=== PATIENT | male | born 1970 | race Caucasian/White ===

== ENCOUNTER 2018-05-03 02:49 | Emergency (ER) | payer SELFPAY ==
--- NOTE | 2018-05-03 02:49 | DT_ITS ---
This patient was seen during an EMR downtime April 30, 2018 - May 07, 2018. This patient may have a combination of paper and electronic documentation or all paper documentation. All documentation is viewable within the e-chart portion of [facility] for each patient visit.
--- NOTE | 2018-05-03 13:43 | EKG12_ITS ---
Test Reason : Blood Pressure : / mmHG Vent. Rate : 071 BPM Atrial Rate : 071 BPM P-R Int : 142 ms QRS Dur : 102 ms QT Int : 410 ms P-R-T Axes : 043 043 018 degrees QTc Int : 445 ms Normal sinus rhythm with sinus arrhythmia Normal ECG Confirmed by LAMONTE EMERSON MD ([id number]), editor school photograph GRACIE KRUGER ([id number]) on 05/09/2018 6:25:19 PM Referred By: KALE Confirmed By:LAMONTE EMERSON MD
[2018-05-05 14:25] LABS: Absolute Lymphocyte Count 3.64 X10^3/ul (0.83-4.51); Absolute Neutrophil Count 8.4 X10^3/uL (2.0-7.7); Basophil# 0.03 X10^3/uL; Basophil% 0.2 % (0-1); Eosinophil# 0.22 X10^3/uL; Eosinophils% 1.7 % (0-5); Hematocrit 43.4 % (40-54); Hemoglobin 15.3 g/dl (13.0-16.5); Lymphocyte # 3.64 X10^3/ul (4.0); Lymphocyte % 27.5 % (19-41); Mean Corp Hgb Conc 35.3 g/gl (32-36); Mean Corpuscular Hgb 30.1 pg (27.0-32.0); Mean Corpuscular Volume 85.4 fL (80-94); Mean Platelet Vol. 9.3 fl (6.2-12.0); Monocyte% 6.8 % (0-10); Neutrophil # 8.44 X10^3/uL (2.7-7.7); Neutrophil % 63.6 % (47-70); POSITIVE COUNT NO; POSITIVE DIFFERENTIAL NO; POSITIVE MORPHOLOGY NO; Platelet Count 261 K/mm3 (150-450); RBC Distribution Width CV 13.4 % (11.6-14.6); Red Blood Count 5.08 M/mm3 (4.6-6.2); White Blood Count 13.3 K/mm3 (4.4-11.0)
[2018-05-07 08:24] LABS: Anion Gap 9 (5-15); BUN 11 mg/dL (7-18); BUN/Creat Ratio 11.6 RATIO (10-20); Chloride 106 mmol/L (98-107); Creatinine, Serum 0.95 mg/dL (0.70-1.30); EST Glomerular Filtration Rate 90 mL/min (>60); Est Glom Filt Rate - Afr Amer 109 mL/min (>60); Glucose 120 mg/dL (74-106); Potassium 3.4 mmol/L (3.5-5.1); Sodium Level 142 mmol/L (136-145)
== END 2018-05-03 05:45 | disposition home or self-care (01) ==
LOC: ED 15:41
PROVIDERS: Emergency Provider Emergency Medicine
DX: G43.909 Migraine, unspecified, not intractable, without status migrainosus (principal); F17.200 Nicotine dependence, unspecified, uncomplicated
CPT/HCPCS: 36415; 80048; 84484; 85025; 93005; 96361; 96374; 96375; 99284; J7030; A4216

== ENCOUNTER 2022-09-20 12:44 | Emergency (ER) | payer MEDICARE, SELFPAY ==
[2022-09-20 12:45] VITALS: BP 160/80; PULSE 98; RESP 18; TEMP 36.5; O2SAT 96; BMI 44.4
--- NOTE | 2022-09-20 14:01 | EX.ED.UPPERE ---
HPI History of Present Illness Chief Complaint: Upper Extremity Injury Narrative Narrative: 52-year-old male here with left arm pain. Patient states her arm pain prior to arrival or since resolved denies any chest pain, shortness of breath. 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 Denies any history of heart issues. He is not on any medicines currently. He says he is new to the area. The patient denies recent surgery in the last 4 weeks or immobilization in the last 3 days, denies previous diagnosis of DVT or PE, hemoptysis, unilateral leg swelling or malignancy with treatment the last 6 months. No estrogen use noted. Denies any bleeding diathesis. Denies any vomiting or diarrhea. Old chart reviewed: No recent advanced imaging of the involved extremity, no recent Stress echocardiogram note in the chart PFSH PFSH Allergy/AdvReac Type Severity Reaction Status Date / Time No Known Allergies Allergy Verified 09/20/22 12:47 Social History Smoking Status: Current every day smoker tobacco type: cigarettes ROS ROS ED ROS Narrative Constitutional: Denies fever HEENT: Denies sore throat Neck: Denies neck pain Cardiovascular: Denies chest pain, syncope Respiratory: Denies shortness of breath GI: Denies nausea vomiting or abdominal pain : Denies changes in urinary habits Musculoskeletal: Endorses left arm pain (resolved) Neurologic: Denies numbness weakness or loss of sensation Skin denies rash EXAM Physical Exam Narrative Exam Narrative: Nursing triage notes reviewed, Vital signs reviewed Constitutional: please see mdm HENT: MMM Eyes: Pupils equal round and reactive to light, Extraocular muscles intact Neck: No stridor, no JVD, full neck ROM Lungs: Clear to auscultation, No wheezing or rales. No increased work of breathing, no conversational dyspnea, no accessory muscle use, no nasal flaring. No respiratory distress noted Heart: Regular rate and rhythm, No murmurs, No rubs and No gallops, 2+ distal pulses (radial, femoral, posterior tibial) in all extremities Abdomen: Soft, there is no tenderness, rigidity, rebound or guarding, no obvious peritoneal signs, no palpable pulsatile abdominal masses, no auscultated abdominal bruit : No CVAT Extremities: No edema Neuro: No focal neurological deficits, cranial nerves II through XII intact, 5/5 strength in all extremities. Intact sensation to light touch in all extremities, 2+ reflexes bilateral patella dens. Normal gait. No ataxia. Skin: No rash or lesions noted Const Vital Signs: 09/20/22 12:45 Temperature 97.7 F L Temperature Source Temporal Pulse Rate 98 Respiratory Rate 18 Blood Pressure 160/80 H Blood Pressure Mean 106 Pulse Ox 96 Oxygen Delivery Method Room Air MDM MDM MDM Narrative Medical decision making narrative: 52-year-old male here with left arm pain. Pain resolved. Left upper extremity exam was unremarkable. Left upper extreme exam is neurovascular intact. There is no focal cardiopulmonary abnormalities. Patient stated he just want to make sure is not having a heart attack. I obtained a screening EKG which showed no evidence of STEMI no ischemic changes. I did offer the patient additional blood work including troponin chest x-ray CBC BMP. Patient refused stating he would like to go home as he is asymptomatic and is reassured by his unremarkable EKG. Had a shared decision-making discussion with the patient in regards to risk and benefit of discharge, and additional testing. The patient had capacity was alert and orient x3 and was able to make his own medical decisions. He chose to be discharged home with close PCP follow-up for outpatient evaluation. Shared decision making: I had a long discussion with the patient and or visitors regarding risk/benefits of further testing or admission. They decided to forego any further testing or admission. They are aware of of the risk/benefits inherent in this decision and have voiced understanding. EKG Initial EKG: Attestation: I personally reviewed and interpreted this EKG as follows: Comments: EKG with normal sinus rhythm, normal intervals, no STEMI no WPW no ARVD Discharge Plan Triage Chief Complaint: Upper Extremity Injury ED Provider: Raymond Washington Dx/Rx/DC Orders Clinical Impression: Arm pain, left Instructions: ED Chest Pain, Uncertain Cause Primary Care Provider: Care Physician,No Primary Referrals: Oscar Dias MD [STAFF PHYSICIAN] - Care Physician,No Primary [Primary Care Provider] - Activity Restrictions/Additional Instructions: Please return if you lose consciousness, if you develop chest pain, if you have shortness of breath we have difficulty with exertion. Please follow-up with the family practice physician Dr. Dias. Please get an outpatient stress test for further evaluation of possible heart issues. Disposition Disposition: Home, Self Care Discharge Date/Time: 09/20/22 14:41
--- NOTE | 2022-09-20 14:15 | EKG12_ITS ---
Test Reason : ARMP PAIN Blood Pressure : / mmHG Vent. Rate : 082 BPM Atrial Rate : 082 BPM P-R Int : 186 ms QRS Dur : 110 ms QT Int : 388 ms P-R-T Axes : 060 013 023 degrees QTc Int : 453 ms Normal sinus rhythm Low voltage QRS (Limb Leads) Confirmed by TASHIA GALLOWAY, KO ([id number]), slot editor JORDIN RAMIREZ ([id number]) on 09/22/2022 10:40:47 AM Referred By: Confirmed By:KO LAO MD
--- NOTE | 2022-09-20 14:17 | ED.RN ---
Pt. no longer complaining of left elbow pain. Pt. states he had slight pain for a brief period and came into ER to make sure he was not having a heart attack. Pt. states he has no chest pain for pain anywhere. Dr. Washington notified.
== END 2022-09-20 14:41 | disposition home or self-care (01) ==
LOC: ED 14:40
PROVIDERS: Emergency Provider Emergency Medicine; Visit Provider Emergency Medicine
DX: M79.602 Pain in left arm (principal); F17.210 Nicotine dependence, cigarettes, uncomplicated
CPT/HCPCS: 93005; 99282

== ENCOUNTER 2024-02-04 17:37 | Emergency (ER) | payer MEDICARE, SELFPAY ==
[2024-02-04 17:39] VITALS: BP 149/90; PULSE 100; RESP 22; TEMP 35.7; O2SAT 100; BMI 44.4
--- NOTE | 2024-02-04 18:15 | EDS_ITS ---
HPI <LANA Shin - Last Filed: 02/04/24 20:41> History of Present Illness Chief Complaint: Poisoning Narrative Narrative: Patient presenting today due to concerns that he was poisoned by his son. He reports that over the last several days he thinks his son has been breaking into his house, destroying his cars, urinating on his floor, and poisoning his food. He reports that his son did kill his dog. He has a restraining order out against his son as his son is mentally ill. He thought he saw him last night climbing over his fence and called the police. He reports that he did take a drink out of a cup that was in his house and ever since has not been feeling right. 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 When asked if he has had any hallucinations he reports, Oh yes, I thought my dog was God. Patient also reports that at times he will feel really perky and at other times he will feel really down. He denies any history of mental illness. He denies SI or HI. He reports a previous history of drug abuse with pills, heroin, and speed. He denies any recent drug use. PFSH <LANA Shin - Last Filed: 02/04/24 20:41> [facility] Medical History unable to obtain Home Medications NK 02/04/24 [History Last Taken Unknown] Allergy/AdvReac Type Severity Reaction Status Date / Time No Known Allergies Allergy Verified 02/04/24 17:39 Family History no significant family his Surgical History unable to obtain Social History Smoking Status: Current every day smoker tobacco type: cigarettes ROS <LANA Shin - Last Filed: 02/04/24 20:41> ROS ED Constitutional Constitutional ED: Denies chills or fever(s) Cardiovascular Cardiovascular: Denies chest pain Respiratory/Chest Respiratory/Chest: Denies cough or dyspnea Gastrointestinal Gastrointestinal: Denies abdominal pain, nausea or vomiting Musculoskeletal Musculoskeletal: Denies arthralgias or myalgias Integumentary Denies rash Neurologic Neurologic: Denies weakness Psychiatric Psychiatric: Reports hallucinations and paranoia; Denies depression, homicidal ideation, suicidal ideation or suicidal thoughts Allergic/Immunologic Allergic/Immunologic ED: Denies lip swelling, mouth swelling or urticaria EXAM <LANA Shin - Last Filed: 02/04/24 20:41> Physical Exam Const Vital Signs: 02/04/24 17:39 Temperature 96.3 F L Temperature Source Temporal Pulse Rate 100 Respiratory Rate 22 H Blood Pressure 149/90 H Blood Pressure Mean 109 Pulse Ox 100 Oxygen Delivery Method Room Air Positive well nourished, well developed and no apparent distress General Appearance ED: well developed HEENT Reports normocephalic and head/scalp atraumatic Mouth ED: Yes moist mucous membranes normal Eyes PERRL and EOMs intact bilaterally Neck full ROM and supple Chest Wall inspection of chest normal Resp normal respiratory effort and clear to auscultation bilaterally Cardio regular rate and regular rhythm GI soft to palpation, non-tender, non-distended and no masses Back/Spine normal ROM and normal to inspection Extremity normal to inspection and full ROM Neuro oriented x3, CN's II-XII intact bilaterally, moves all extremities, no focal motor deficits and no sensory deficits noted Sensorium / Orientation: awake and alert Psych Appearance: grossly normal Attitude: paranoid Speech: normal speech Thought Content: phobia(s), delusion(s) and hallucination(s) Skin no rashes or lesions noted and no wounds <Dr. Henrik Garza DO - Last Filed: 02/04/24 23:27> Physical Exam Const Vital Signs: 02/04/24 17:39 Temperature 96.3 F L Temperature Source Temporal Pulse Rate 100 Respiratory Rate 22 H Blood Pressure 149/90 H Blood Pressure Mean 109 Pulse Ox 100 Oxygen Delivery Method Room Air MDM <LANA Shin - Last Filed: 02/04/24 20:41> [facility] Narrative Medical decision making narrative: Patient presenting due to paranoia, he thinks that his son is trying to harm him. He thinks that his son has poisoned him. He is nontoxic-appearing, vitals are unremarkable. He does have a previous history of drug abuse, denies any recent drug use. Labs were obtained here. He has a nonspecific leukocytosis, BMP unremarkable, toxicology screening is positive for amphetamines and MDMA. I do not feel that patient poses a threat to himself or others. He is not suicidal or homicidal. Drug cessation is encouraged. He will be discharged home in stable condition and is comfortable with plan. Lab Data Labs: Laboratory Results - last 24 hr 02/04/24 02/04/24 18:13 18:20 WBC 15.0 H RBC 5.37 Hgb 16.0 Hct 46.5 MCV 86.6 MCH 29.8 MCHC 34.4 RDW Std Deviation 40.7 RDW Coeff of Senia 13.0 Plt Count 298 MPV 10.6 Immature Gran % (Auto) 0.500 Neut % (Auto) 73.1 H Lymph % (Auto) 15.5 L [place] % (Auto) 10.0 Eos % (Auto) 0.1 Baso % (Auto) 0.8 Absolute Neuts (auto) 11.0 H Absolute Lymphs (auto) 2.33 Nucleated RBC % 0 Sodium 138 Potassium 3.8 Chloride 102 Carbon Dioxide 25.0 Anion Gap 11 BUN 10 Creatinine 0.95 Estim Creat Clear Calc 122.02 Est GFR (MDRD) Af Amer 106 Est GFR (MDRD) Non-Af 87 BUN/Creatinine Ratio 10.5 Glucose 99 Calcium 9.0 Urine Opiates Screen NEGATIVE Urine Methadone Screen NEGATIVE Ur Barbiturates Screen NEGATIVE Ur Phencyclidine Scrn NEGATIVE Ur Amphetamines Screen POSITIVE H MDMA (Ecstasy) Screen POSITIVE H U Benzodiazepines Scrn NEGATIVE Urine Cocaine Screen NEGATIVE U Cannabinoids Screen NEGATIVE Ur Drug Screen Comment Ethyl Alcohol < 3.0 <Dr. Henrik Garza, DO - Last Filed: 02/04/24 23:27> MDM History & Record Review Discussion w/independent historian: Patient Lab Data Attestation: I reviewed the patient's lab results. Labs: Laboratory Results - last 24 hr 02/04/24 02/04/24 18:13 18:20 WBC 15.0 H RBC 5.37 Hgb 16.0 Hct 46.5 MCV 86.6 MCH 29.8 MCHC 34.4 RDW Std Deviation 40.7 RDW Coeff of Senia 13.0 Plt Count 298 MPV 10.6 Immature Gran % (Auto) 0.500 Neut % (Auto) 73.1 H Lymph % (Auto) 15.5 L [place] % (Auto) 10.0 Eos % (Auto) 0.1 Baso % (Auto) 0.8 Absolute Neuts (auto) 11.0 H Absolute Lymphs (auto) 2.33 Nucleated RBC % 0 Sodium 138 Potassium 3.8 Chloride 102 Carbon Dioxide 25.0 Anion Gap 11 BUN 10 Creatinine 0.95 Estim Creat Clear Calc 122.02 Est GFR (MDRD) Af Amer 106 Est GFR (MDRD) Non-Af 87 BUN/Creatinine Ratio 10.5 Glucose 99 Calcium 9.0 Urine Opiates Screen NEGATIVE Urine Methadone Screen NEGATIVE Ur Barbiturates Screen NEGATIVE Ur Phencyclidine Scrn NEGATIVE Ur Amphetamines Screen POSITIVE H MDMA (Ecstasy) Screen POSITIVE H U Benzodiazepines Scrn NEGATIVE Urine Cocaine Screen NEGATIVE U Cannabinoids Screen NEGATIVE Ur Drug Screen Comment Ethyl Alcohol < 3.0 Treatment and Re-Evaluation :: I have personally performed a face to face assessment of the patient and have reviewed the THEODORE Note. I performed a substantive portion of the visit including all aspects of the following. My vidal findings include: History is 53-year-old male concerned that he is being poisoned by family. He states he had an episode where he was hallucinating and has dry lips. He denies any suicidal or homicidal ideation. He states he has been otherwise eating okay and caring for himself. He denies any fgaf-riv-onrfiij medications or any prescription medications. Exam is ANO x 3. Denies suicidal or homicidal ideation. States currently he is feeling pretty good other than some dry lips. Patient appears well-kept. He appears hydrated and fed. Medical Decison Making reconfirmed the patient has not been taking any prescription or pejf-cth-czlicyg medications. Patient test positive for amphetamines and for MDMA. He has a slight leukocytosis of 15. At this point he has normal vital signs. He is ANO x 3. Does not appear to be a danger to himself or to others. I do not know if this represents delusions or fact. I do not see any emerging emergent condition. Difficult to say based on a urine drug screen exactly what substance is triggering that positive result. I think the patient can be discharged home. I encouraged him to follow-up with primary care. Discharge Plan Triage Chief Complaint: Poisoning ED Midlevel Provider: Suzette Jay ED Provider: Henrik Garza Dx/Rx/DC Orders Clinical Impression: Drug abuse, Paranoia Prescriptions: No Action NK Primary Care Provider: Care Physician,No Primary Referrals: Care Physician,No Primary [Primary Care Provider] - Disposition Disposition: Home, Self Care Discharge Date/Time: 02/04/24 20:02
--- OUTSIDE RECORDS SUMMARY | 2024-02-04 18:23 | XMS RPT_ITS | CCD ---
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 OSIRIS BARRETT Attending Un available [facility], Pt States None Referring Unavailable Problems Problem Classification Problem Date Documented Da te Episodic/Chronic Fluid and electrolyte disorders (1 source) Hypokalemia; Translations: [Hypokalemia] Onset: 11-15-2022 Episodic Genitourinary symptoms and ill-defined conditions (2 sources) Unspecified abnormal findings in urine; Translations: [Unspecified abnormal findings in urine] Onset: 11-15-2022 Episodic Influenza (2 sources) Influenza due to other identified influenza virus with other respiratory manifestations; Translations: [Influenza due to other identified influenza virus with other manifestations] Onset: 11-15-2022 Episodic Other lower respiratory disease (1 source) Dyspnea, unspecified; Translations: [Dyspnea, unspecified] Onset: 11-15-2022 Episodic Other nervous system disorders (1 source) Unspecified disturbances of smell and taste; Translations: [Unspecified disturbances of smell and taste] Onset: 11-15-2022 Episodic Other nutritional; endocrine; and metabolic disorders (1 source) Anorexia; Translations: [Anorexia] Onset: 11-15-2022 Episodic Substance-related disorders (1 source) Nicotine dependence, unspecified, uncomplicated; Translations: [Nicotine dependence, unspecified, uncomplicated] Onset: 11-15-2022 Chronic Unclassified (1 source) Contact with and (suspected) exposure to COVID-19; Translations: [Contact with and (suspected) exposure to COVID-19] Onset: 11-15-2022 Unclassified (1 source) Cough, unspecified; Translations: [Cough, unspecified] Onset: 11-15-2022 Results Test Name Value Interpretation Reference Range Facil ity Encounters Encounter Date Encounter Type Care Provider Facility Start: 11-15-2022 End: 11-15-2022 Emergency department patient visit Dr. OSIRIS BARRETT Facility:[id number] Start: 03-09-2022 ambulatory Tony Altman Facility:[id number] Payers Date Payer Category Payer Unknown [id number] 1970 Unknown [id number] Medicare [id number] Unknown [id number] Clinical Note 11-16-2022 Note Date & Type Note Facility 11-16-2022 Note Clinical Note - Mihir lopez v2: Education: Additional NotesED Post Discharge Result Follow Up: Attempt #1 Complete/Pending# : Completed Type#: Nasal Bug# Flu A Patient tested positive for flu during recent ED visit. ED doctor educated the patient on the positive result and proper discharge instructions (at-home care, isolation, etc). No further follow up from EDPD team is needed. If there are any other questions for the ED Post-Discharge Culture Follow Up Team, please contact [phone]. . Aspen Chapa PharmD PGY1 Resident [facility] Electronic Signatures: Aspen Chapa (PHARM STUD) (Signed 16-Nov-2022 15:13) Authored: Education Deborah Ramirez (PharmD) (Signed 17-Nov-2022 08:30) Co-Signer: Education Last Updated: 17-Nov-2022 08:30 by Deborah Ramirez (PharmD) [facility] Summary Purpose Family History No Family History Records Found Advance Directives No Advanced Directives Records Found Additional Source Comments (unrecognized sect ion and content) No Status Records Found INFORMATION SOURCE (unrecogn ized section and content) FOR RECORDS PERTAINING TO PATIENTS WHO ARE OR HAVE BEEN ENROLLED IN A CHEMICAL DEPENDENCY/SUBSTANCEABUSE PROGRAM, SOME INFORMATION MAY BE OMITTED. This clinical summary was aggregated from multiple sources. Caution should be exercised in using it in the provision of clinical care. This summary normalizes information from multiple sources, and as a consequence, information in this document may materially change the coding, format and clinical context of patient data. In addition, data may be omitted in some cases. CLINICAL DECISIONS SHOULD BE BASED ON THE PRIMARY CLINICAL RECORDS. [facility], [facility]. provides no warranty or guarantee of the accuracy or completeness of information in this document.
[2024-02-04 18:32] LABS: Absolute Lymphocyte Count 2.33 X10^3/uL (0.83-4.51); Basophil# 0.12 X10^3/uL; Basophil% 0.8 % (0-1); Eosinophil# 0.02 X10^3/uL; Eosinophils% 0.1 % (0-5); Hematocrit 46.5 % (40-54); Lymphocyte # 2.33 X10^3/ul (0.83-4.51); Lymphocyte % 15.5 % (19-41); Mean Corp Hgb Conc 34.4 g/dL (32-36); Mean Corpuscular Hgb 29.8 pg (27.0-32.0); Mean Corpuscular Volume 86.6 fL (80-94); Mean Platelet Vol. 10.6 fl (6.2-12.0); NRBC Flagged by Analyzer 0 % (0-5); Neutrophil % 73.1 % (47-70); Platelet Count 298 K/mm3 (150-450); RBC Distribution Width SD 40.7 fl (35.1-43.9); Red Blood Count 5.37 M/mm3 (4.6-6.2)
[2024-02-04 18:45] LABS: Alcohol, Blood (Medical)-Serum < 3.0 mg/dL
[2024-02-04 18:47] LABS: Anion Gap 11 (5-15); BUN 10 mg/dL (7-18); BUN/Creat Ratio 10.5 RATIO (10-20); Chloride 102 mmol/L (98-107); Creatinine, Serum 0.95 mg/dL (0.70-1.30); EST Glomerular Filtration Rate 87 mL/min (>60); Est Glom Filt Rate - Afr Amer 106 mL/min (>60); Estimated Creatinine Clearance 122.02 ml/min; Glucose 99 mg/dL (74-106); Potassium 3.8 mmol/L (3.5-5.1); Sodium Level 138 mmol/L (136-145)
[2024-02-04 18:49] LABS: Amphetamine Urine VISTA POSITIVE (<1000 ng/mL); Barbiturate Urine VISTA NEGATIVE (< 200 ng/mL); Benzodiazepine Urine VISTA NEGATIVE (< 200 ng/mL); Cocaine Urine VISTA NEGATIVE (< 300 ng/mL); Ecstacy Urine VISTA POSITIVE (< 500 ng/mL); Methadone Urine VISTA NEGATIVE (< 300 ng/mL); PCP Urine VISTA NEGATIVE (< 25 ng/mL); THC Urine VISTA NEGATIVE (< 50 ng/mL); Vista UDS pH Range 6
== END 2024-02-04 20:02 | disposition home or self-care (01) ==
PROVIDERS: Physician Assistant; Emergency Provider Emergency Medicine; Visit Provider Emergency Medicine
DX: F19.10 Other psychoactive substance abuse, uncomplicated (principal); F22 Delusional disorders; F17.210 Nicotine dependence, cigarettes, uncomplicated
CPT/HCPCS: 36415; 80048; 80307; 80320; 85025; 99282; G0480

== ENCOUNTER 2025-05-03 15:36 | Inpatient (IN) | payer MEDICARE, SELFPAY ==
[2025-05-03 15:37] VITALS: BP 186/101; PULSE 83; RESP 18; TEMP 36.3; O2SAT 100; BMI 48.4
--- NOTE | 2025-05-03 15:49 | EKG12_ITS ---
Test Reason : Blood Pressure : */* mmHG Vent. Rate : 70 BPM Atrial Rate : 70 BPM P-R Int : 200 ms QRS Dur : 132 ms QT Int : 428 ms P-R-T Axes : 69 -40 28 degrees QTcB Int : 462 ms Normal sinus rhythm with sinus arrhythmia Left axis deviation Right bundle branch block ABNORMAL ECG Confirmed by Patrick Tian ([id number]), clinical editor TITO FRIAS ([id number]) on 05/05/2025 9:20:06 AM Referred By: Confirmed By: Patrick Tian
--- NOTE | 2025-05-03 15:51 | EX.ED.DYSGE1 ---
HPI History of Present Illness Chief Complaint: Hypertension Narrative Narrative: Patient is a 54-year-old male who presents to the emergency department chief complaint of elevated blood pressure. Patient states that just 3 days ago he saw a primary care physician for the first time and was started on blood pressure medication. He states that he had a headache earlier and noted that he checked his blood pressure this was elevated he states that he called his primary care physician and they advised him to take a extra dose of the blood pressure medication that he was started on losartan and check his blood pressure again in 2 hours. He states that he did this in his blood pressure was a systolic of the 200s he called them back and they advised him to come to the emergency department to be evaluated. Patient states that he no longer has a headache. [facility] Medical History (Updated 05/03/25 @ 18:[address] Allan Jc DO) HTN (hypertension) Morbid obesity Home Medications ?Medication ?Instructions ?Recorded ?Last Taken ?Type losartan 25 mg tablet 25 mg PO DAILY 05/03/25 Unknown History Allergy/AdvReac Type Severity Reaction Status Date / Time No Known Allergies Allergy Verified 05/03/25 15:37 Social History Smoking Status: Current every day smoker tobacco type: cigarettes ROS ROS ED ROS Narrative Constitutional: Complains of lightheadedness and headache as noted above but the headache has resolved with denies any fevers, chills, dizziness, Eyes: Denies change in vision double vision blurry vision he states that earlier when he had a headache he had spots that would flash in his peripheral vision this is resolved Cardiovascular: Denies chest pain or palpitations Respiratory: Denies cough wheezing shortness of breath Abdomen: Denies abdominal pain nausea vomiting diarrhea : Denies any urinary symptoms Neurological: Denies numbness, weakness, tingling Musculoskeletal: Denies back pain Skin: Denies rashes or lesions EXAM Physical Exam Narrative Exam Narrative: General: Patient lying in bed rest comfortably did not appear to be acute distress Head: Atraumatic, normocephalic Eyes: PERRL bilaterally, EOMI bilateral, no conjunctival injection noted Neck: Soft, supple, trachea midline Cardiovascular: Regular in rhythm Respiratory: Clear to auscultation bilaterally Abdomen: Soft, nondistended, no tenderness to palpation Extremities: +5/5 strength noted in the bilateral upper and lower extremities, radial pulses +2/4 in the bilateral extremities Neurological: Patient following commands knew that he was at [facility] year is 2024 patient NIH of 0 GCS 15 Skin: Warm, dry, intact no rashes or lesions noted Const Vital Signs: 05/03/25 15:36 05/03/25 15:37 05/03/25 15:49 Temperature 97.4 F L Temperature Source Temporal Pulse Rate 83 Respiratory Rate 18 Respiratory Effort Normal Non-Labored Respiratory Pattern Normal Blood Pressure 186/101 H Blood Pressure Mean 129 Pulse Ox 100 Oxygen Delivery Method Room Air Room Air 05/03/25 17:36 05/03/25 18:11 Temperature 98.1 F Temperature Source Pulse Rate 73 73 Respiratory Rate 16 16 Respiratory Effort Respiratory Pattern Blood Pressure 159/89 H 159/89 H Blood Pressure Mean 112 112 Pulse Ox 98 98 Oxygen Delivery Method Room Air MDM MDM MDM Narrative Medical decision making narrative: Patient is a 54-year-old male who presents to the emergency department with a chief complaint of hypertension. On the differential diagnose includes but not limited to essential hypertension, hypertensive emergency, migraine headache that is resolved. Once workup is obtained and reviewed he will be reevaluated. Patient be given 0.1 mg clonidine for his hypertension and emergency department Patient CBC reviewed showed a white blood cell count of 11,000, he was 14.8, platelet count of 313. Patient sodium was low indicating hyponatremia at 119, potassium was 4.5, creatinine of 0.74. Patient glucose was 113, hemoglobin A1c was 6. Patient TSH normal at 1.05, free T3 and T4 were 2.8 and 1.30 respectively. Patient's troponin was 9, EKG reviewed and showed sinus rhythm with a rate of 70 bpm with evidence of right bundle branch block. This was compared to EKG of September 20, 2022 which showed sinus rhythm with a rate of 82 bpm at that point time as well.Patient's chest x-ray reviewed by myself and by radiology and showed no acute cardiopulmonary processes. At this point in time we will discuss case with hospitalist for admission for his acute hyponatremia, hypertension. Discussed case with hospitalist Dr. Minor who accept patient for admission. Patient is agreeable this plan as well. All question concerns answered Lab Data Labs: Laboratory Results - last 24 hr 05/03/25 05/03/25 15:52 16:45 WBC 11.6 H RBC 5.06 Hgb 14.8 Hct 41.1 MCV 81.2 MCH 29.2 MCHC 36.0 RDW Std Deviation 37.1 RDW Coeff of [place] 12.6 Plt Count 313 MPV 9.0 Immature Gran % (Auto) 0.600 Neut % (Auto) 76.5 H Lymph % (Auto) 15.6 L [place] % (Auto) 6.7 Eos % (Auto) 0.1 Baso % (Auto) 0.5 Absolute Neuts (auto) 8.9 H Absolute Lymphs (auto) 1.81 Nucleated RBC % 0 Sodium 119 L* Potassium 4.5 Chloride 84 L Carbon Dioxide 21.4 Anion Gap 13 BUN 5 Creatinine 0.74 Estim Creat Clear Calc 162.50 Est GFR (MDRD) Non-Af 107 BUN/Creatinine Ratio 6.9 L Glucose 113 H Hemoglobin A1c 6.0 H Calcium 9.1 Troponin T High Sens 9 TSH 1.050 Free T4 1.30 Free T3 pg/dL 2.8 Radiography Diagnostic Testing: Clinical Impression(s) from Imaging Studies Chest X-Ray 05/03/25 16:00 IMPRESSION: NO ACUTE FINDINGS. Reading Location: [facility] Discharge Plan Triage Chief Complaint: Hypertension ED Provider: Allan Jc Dx/Rx/DC Orders Clinical Impression: Acute hyponatremia, Hyperglycemia, Hypertension Prescriptions: No Action losartan 25 mg tablet 25 mg PO DAILY Primary Care Provider: Deborah Roa Referrals: Care Physician,No Primary [Non-Staff] - Print Language: Mal[place]ian Disposition Disposition: [facility]
[2025-05-03 15:58] LABS: Absolute Lymphocyte Count 1.81 X10^3/uL (0.83-4.51); Absolute Neutrophil Count 8.9 X10^3/uL (2.0-7.7); Basophil# 0.06 X10^3/uL; Basophil% 0.5 % (0-1); Eosinophil# 0.01 X10^3/uL; Eosinophils% 0.1 % (0-5); Hematocrit 41.1 % (40-54); Hemoglobin 14.8 g/dL (13.0-16.5); Lymphocyte # 1.81 X10^3/ul (0.83-4.51); Lymphocyte % 15.6 % (19-41); Mean Corpuscular Hgb 29.2 pg (27.0-32.0); Mean Corpuscular Volume 81.2 fL (80-94); Monocyte# 0.78 X10^3/uL; Monocyte% 6.7 % (0-10); NRBC Flagged by Analyzer 0 % (0-5); Neutrophil # 8.87 X10^3/uL (2.7-7.7); Neutrophil % 76.5 % (47-70); Platelet Count 313 K/mm3 (150-450); RBC Distribution Width CV 12.6 % (11.6-14.6); RBC Distribution Width SD 37.1 fl (35.1-43.9); Red Blood Count 5.06 M/mm3 (4.6-6.2); White Blood Count 11.6 K/mm3 (4.4-11.0)
--- NOTE | 2025-05-03 16:00 | RAD_ITS ---
PROCEDURE: CHEST PA AND LATERAL 05/03/2025 REASON FOR EXAM: HTN TECHNIQUE: Frontal and lateral views of the chest. COMPARISON: None. FINDINGS: Hardware: None. Heart: The heart size is normal. Mediastinum: The mediastinal contour is unremarkable. Lungs: Bibasilar atelectasis/scarring. No focal consolidation, pleural effusion or pneumothorax. Bones: Degenerative changes are identified within the thoracic spine. RAD/Chest PA and Lateral IMPRESSION: NO ACUTE FINDINGS. Reading Location: [id number]
--- OUTSIDE RECORDS SUMMARY | 2025-05-03 16:02 | XMS RPT_ITS | CCD ---
Author Organization [facility] Inform ion Partnership [facility] Care Team Providers Care Personal Service Workers Name Role Phone Dr. OSIRIS BARRETT Attending Un available Tony Altman Attending Unavaila ble PCP, Pt States None Referring Unavailable Henrik Garza Attending Unavailable Care Physician, No Primary Primary Care Unava ilable Problems Active Problems Problem Classification Problem Date Documented Da [...] with other manifestations] Onset: 11-15-2022 Episodic Other connective tissue disease (2 sources) Pain in left arm; Translations: [Pain in left arm] 09-28-2022 Episodic Other lower respiratory disease (1 source) [...] Cough, unspecified; Translations: [Cough, unspecified] Onset: 11-15-2022 Past or Other Problems Problem Classification Problem Date Documented Da te Episodic/Chronic Poisoning by nonmedicinal substances (1 source) Toxic effect of unspecified substance, accidental (unintentional), initial encounter; Translations: [Toxic effect of unspecified substance, accidental (unintentional), initial encounter] Onset: 02-08-2024 Episodic Results Test Name Value Interpretation Reference Range Facility Absolute lymphocyte countOrd ered By: Suzette Jay on 02-04-2024 Lymphocytes Auto (Unsp spec) [#/Vol] 2.33 10*3/uL 0.83-4.51 [facility] Automated lymphocyte count a s percentage of total leukocytesOrdered By: Suzette Jay on 02-04-2024 Lymphocytes/100 WBC Auto (Unsp spec) 15.5 % 19-41 [facility] Basophil percentageOrdered B y: Suzette Jay on 02-04-2024 Basophils/100 WBC (Bld) 0.8 % 0-1 [facility] Chloride [Moles/Vol] 102 mmol/L 98-107 [facility] Eosinophils/100 WBC (Bld) 0.1 % 0-5 [facility] Glucose [Mass/Vol] 99 mg/dL 74-106 [facility] Hemoglobin (Bld) [Mass/Vol] 16.0 g/dL 13.0-16.5 [facility] Monocytes/100 WBC (Bld) 10.0 % 0-10 [facility] Neutrophils (Bld) [#/Vol] 11.0 10*3/uL 2.0-7.7 [facility] Neutrophils/100 WBC (Bld) 73.1 % 47-70 [facility] Potassium [Moles/Vol] 3.8 mmol/L 3.5-5.1 [facility] Sodium [Moles/Vol] 138 mmol/L 136-145 [facility] WBC (Bld) [#/Vol] 15.0 10*3/uL 4.4-11.0 [facility] Determination of erythrocyte mean corpuscular volume (MCV)Ordered By: Suzette Jay on 02-04-2024 MCV (RBC) [Entitic vol] 86.6 fL 80-94 [facility] Erythrocyte distribution wid th ratioOrdered By: Suzette Jay on 02-04-2024 Erythrocyte distribution width (RBC) [Ratio] 13.0 % 11.6-14.6 [facility] Erythrocyte distribution wid th standard deviationOrdered By: Suzette Jay on 02-04-2024 Erythrocyte distribution width (RBC) [Entitic vol] 40.7 fL 35.1-43.9 [facility] Hematocrit Auto (Bld) [Volum e fraction]Ordered By: Suzette Jay on 02-04-2024 Hematocrit (Bld) [Volume fraction] 46.5 % 40-54 [facility] Immature granulocytes/100 WB C Auto (Bld)Ordered By: Suzette Jay on 02-04-2024 Immature granulocytes/100 WBC (Bld) 0.500 % 0.0-0.9 [facility] Comment on above: IG% - Immature Granu locytes (promyelocytes, myelocytes and metamyelocytes) > 1% indicates that a LEFT SHIFT is Present. Laboratory - Chemistry and C hemistry - challengeOrdered By: Suzette Jay on 02-04-2024 CO2 [Moles/Vol] 25.0 mmol/L 21.0-32.0 [facility] Urea nitrogen/Creatinine [Mass ratio] 10.5 mg/mg 10- [facility] Laboratory - Drug toxicology Ordered By: Suzette Jay on 02-04-2024 Amphetamines Ql (U) Positive <1000 ng/mL [facility] Benzodiazepines Ql (U) Negative < 200 ng/mL [facility] Cannabinoids Screen Ql (U) Negative < 50 ng/mL [facility] Cocaine Ql (U) Negative < 300 ng/mL [facility] Opiates Ql (U) Negative < 300 ng/mL [facility] Laboratory - Hematology and Cell countsOrdered By: Suzette Jay on 02-04-2024 MCH (RBC) [Entitic mass] 29.8 pg 27.0-32.0 [facility] MCHC (RBC) [Mass/Vol] 34.4 g/dL 32-36 [facility] Nucleated RBC/100 WBC (Bld) [Ratio] 0 % 0-5 [facility] Platelet mean volume (Bld) [Entitic vol] 10.6 fL 6.2-12.0 [facility] Platelets (Bld) [#/Vol] 298 10*3/uL 150-450 [facility] No Panel InformationOrdered By: Suzette Jay on 02-04-2024 Estimated Creatinine Clearance Calc 122.02 ml/min [facility] Estimated GFR (MDRD) Amer 106 mL/min >60 [facility] Comment on above: GFR Calc Estimated GFR (MDRD) Non-Af Amer 87 mL/min >60 [facility] Comment on above: Non- GFR Calc Ethyl Alcohol Level < 3.0 mg/dL [facility] Comment on above: The serum:whole bloo d ethanol ratio is approximately 1.14and varies slightly with hematocrit. Medical Alcohol reference interval and critical value innon-tolerant individuals; 50 - 100 Impairment 100 Intoxication 100 - 250 Severe Poisoning 250 - 400 Deep/possible fatal coma MDMA (Ecstasy) Screen Positive < 500 ng/mL [facility] Urine Barbiturates Screen Negative < 200 ng/mL [facility] Urine Drug Screen Comment [facility] Comment on above: CONFIRMATORY TESTING FOR ALL POSITIVE URINE DRUG SCREENRESULTS WILL ONLY BE SENT OUT UPON PHYSICIAN ORDER. VISTA Urine Drug Screen methods provide only preliminaryanalytical test results. A more specific alternate chemicalmethod must be used in order to obtain a confirmedanalytical result. Gas chromatography/mass spectrometery(GC/MS) is the preferred confirmatory method. Clinicalconsideration and professional judgement should be appliedto any drug of abuse test result, particularly whenpreliminary positive results are used. URINE TCA TESTING MUST BE ORDERED SEPARATELY. USE TESTMNEMONIC: [facility] Urine Methadone Screen Negative < 300 ng/mL [facility] RBC Auto (Bld) [#/Vol]Ordere d By: Suzette Jay on 02-04-2024 RBC (Bld) [#/Vol] 5.37 10*6/uL 4.6-6.2 [facility] Serum or plasma calcium pepe urement (mass/volume)Ordered By: Suzette Jay on 02-04-2024 Calcium [Mass/Vol] 9.0 mg/dL 8.5-10.1 [facility] Serum or plasma creatinine m easurement (mass/volume)Ordered By: Suzette Jay on 02-04-2024 Creatinine [Mass/Vol] 0.95 mg/dL 0.70-1.30 [facility] Comment on above: The validity of the calculated GFR & GFRAA in patients over 70 years has not been determined. Clinical correlation is essential. Serum or plasma urea nitroge n measurement (mass/volume)Ordered By: Suzette Jay on 02-04-2024 Urea nitrogen [Mass/Vol] 10 mg/dL 7-18 [facility] Thin prep Papanicolaou smear with manual screeningOrdered By: Suzette Jay on 02-04-2024 Thin prep Papanicolaou smear with manual screening 11 5-15 [facility] Urine phencyclidine (PCP) de tectionOrdered By: Suzette Jay on 02-04-2024 Phencyclidine Ql (U) Negative < 25 ng/mL [facility] BNPon 11-15-2022 Natriuretic peptide B (Bld) [Mass/Vol] 109 pg/mL High 0 - 99 [facility] Comment on above: Result Comment: . <1 00 pg/mL - Heart failure unlikely 100-299 pg/mL - Intermediate probability of acute heart . failure exacerbation. Correlate with clinical . context and patient history. >=300 pg/mL - Heart Failure likely. Correlate with clinical . context and patient history. BNP testing is performed using different testing methodology at [facility] than at other [facility]. Direct result comparisons should only be made within the same method. Performed By: #### B NP2 #### [place] [address] CBC AND DIFFERENTIALon 11-15 % AUTOMATED IMMATURE GRAN 0.4 % Normal 0.0 - 0.9 [facility] Comment on above: Result Comment: Hanna ture Granulocyte Count (IG) includes promyelocytes, myelocytes and metamyelocytes but does not include bands. Percent differential counts (%) should be interpreted in the context of the absolute cell counts (cells/L). Performed By: #### C BCDF #### [address] [address] Basophils (Bld) [#/Vol] 0.02 10*3/uL Normal 0.00 - 0.10 [place] Comment on above: Performed By: #### C BCDF #### [address] [address] Basophils/100 WBC (Bld) 0.1 % Normal 0.0 - 2.0 [place] Comment on above: Performed By: #### C BCDF #### [address] [address] Lymphocytes (Bld) [#/Vol] 1.94 10*3/uL Normal 1.20 - 4.80 [place] Comment on above: Performed By: #### C BCDF #### [address] [address] Lymphocytes/100 WBC (Bld) 14.5 % Normal 13.0 - 44.0 [place] Comment on above: Performed By: #### C BCDF #### [address] [address] Monocytes (Bld) [#/Vol] 1.27 10*3/uL High 0.10 - 1.00 [place] Comment on above: Performed By: #### C BCDF #### [address] [address] Monocytes/100 WBC (Bld) 9.5 % Normal 2.0 - 10.0 [place] Comment on above: Performed By: #### C BCDF #### [address] [address] Neutrophils (Bld) [#/Vol] 10.08 10*3/uL High 1.20 - 7.70 [place] Comment on above: Performed By: #### C BCDF #### [address] [address] Neutrophils/100 WBC (Bld) 75.5 % Normal 40.0 - 80.0 [place] Comment on above: Performed By: #### C BCDF #### [address] [address] Erythrocyte distribution width (RBC) [Ratio] 13.5 % Normal 11.5 - 14.5 [place] Comment on above: Performed By: #### C BCDF #### [place] [id number] Hematocrit (Bld) [Volume fraction] 39.4 % Low 41.0 - 52.0 [place] Comment on above: Performed By: #### C BCDF #### [place] [id number] Hemoglobin (Bld) [Mass/Vol] 13.9 g/dL Normal 13.5 - 17.5 [place] Comment on above: Performed By: #### C BCDF #### [place] [address] MCHC (RBC) [Mass/Vol] 35.3 g/dL Normal 32.0 - 36.0 [place] Comment on above: Performed By: #### C BCDF #### [place] [id number] MCV (RBC) [Entitic vol] 84 fL Normal 80 - 100 [place] Comment on above: Performed By: #### C BCDF #### [address] [address] Platelets (Bld) [#/Vol] 225 10*3/uL Normal 150 - 450 [place] Comment on above: Performed By: #### C BCDF #### [place] [address] RBC 4.68 x10E12/L Normal 4.50 - 5.90 [place]/P or [facility] Comment on above: Performed By: #### C BCDF #### [address] [address] WBC (Bld) [#/Vol] 13.4 10*3/uL High 4.4 - 11.3 [place] Comment on above: Performed By: #### C BCDF #### [address] [place] [address] COMPREHENSIVE PANELon 2021 Albumin [Mass/Vol] 3.9 g/dL Normal 3.4 - 5.0 [place] Comment on above: Performed By: #### C MP #### [address] [address] ALP [Catalytic activity/Vol] 57 U/L Normal 33 - 120 [place] Comment on above: Performed By: #### C MP #### [address] [address] ALT [Catalytic activity/Vol] 21 U/L Normal 10 - 52 [place] Comment on above: Result Comment: Suly ents treated with Sulfasalazine may generate falsely decreased results for ALT. Performed By: #### C MP #### [address] [address] Anion gap [Moles/Vol] 14 mmol/L Normal 10 - 20 [place] inson/[facility] Comment on above: Performed By: #### C MP #### [address] [address] AST [Catalytic activity/Vol] 51 U/L High 9 - 39 [place] Comment on above: Performed By: #### C MP #### [address] [address] Bilirubin [Mass/Vol] 0.9 mg/dL Normal 0.0 - 1.2 [place]/[facility] Comment on above: Performed By: #### C MP #### [address] [address] Calcium [Mass/Vol] 8.8 mg/dL Normal 8.6 - 10.3 [place] Comment on above: Performed By: #### C MP #### [address] [address] Chloride [Moles/Vol] 95 mmol/L Low 98 - 107 [place]/[facility] Comment on above: Performed By: #### C MP #### [address] [address] Creatinine [Mass/Vol] 0.93 mg/dL Normal 0.50 - 1.30 [place] Comment on above: Performed By: #### C MP #### [address] [address] eGFR MALE >90 Normal >90 [place] Comment on above: Result Comment: CALC ULATIONS OF ESTIMATED GFR ARE PERFORMED USING THE 2020 CKD-EPI STUDY REFIT EQUATION WITHOUT THE RACE VARIABLE FOR THE IDMS-TRACEABLE CREATININE METHODS. https://jasn.asnjournals.org/content//ASN.23491 [address] Performed By: #### C MP #### [address] [address] Glucose [Mass/Vol] 120 mg/dL High 74 - 99 [place] Comment on above: Performed By: #### C MP #### [address] [address] HCO3 (Bld) [Moles/Vol] 27 mmol/L Normal 21 - 32 [place] Comment on above: Performed By: #### C MP #### [address] [address] Potassium [Moles/Vol] 3.3 mmol/L Low 3.5 - 5.3 [place] inson/[facility] Comment on above: Performed By: #### C MP #### [address] [address] Protein [Mass/Vol] 7.4 g/dL Normal 6.4 - 8.2 [place] Comment on above: Performed By: #### C MP #### [address] [address] Sodium [Moles/Vol] 133 mmol/L Low 136 - 145 [place] [facility] Comment on above: Performed By: #### C MP #### [address] [address] Urea nitrogen [Mass/Vol] 8 mg/dL Normal 6 - 23 [place] Comment on above: Performed By: #### C #### [facility] [address] [place] [address] Covid 19 Resultson 2 SARS-CoV-2 (COVID-19) RNA LEROY+probe Ql (Unsp spec) NEGATIVE COVID-19 Test Coronaviruses are common world-wide and are the cause of many common colds. SARS-COV2 is a new coronavirus that began circulating worldwide in 2019 so we are calling it COVID-19. It has been estimated that four out of five patients with COVID-19 will recover at home without the need for medical attention. Symptoms of COVID-19 may include cough, fever, shortness of breath, loss of taste or smell and other flu-like symptoms including chills, sore muscles, sore throat, and headache. Severe illness is more common in older people and people with other health problems such as high blood pressure, obesity, and immune system problems. If the test is positive, you have COVID-19. You will be contacted by the ordering physicians office and instructed to remain on home isolation, in accordance with CDC guidelines. You may also be contacted by the [facility] to see if any of your close contacts may have been exposed to the virus and need to quarantine. If the test is negative, you likely do not have COVID-19 at this time, but you still may have a different illness that can spread to other people (like Influenza, or the Flu) and could still be at risk for getting COVID-19. We recommend that you stay away from other people to limit the spread of illness until your symptoms are improving and you are fever-free for 24 hours without the use of fever lowering medications such as acetaminophen or ibuprofen. No test is 100% accurate so if you are still concerned you may have COVID-19, talk to your doctor about the need to continue to stay away from others. Medicines Unless your provider told you not to use the following: Acetaminophen (Tylenol and others) is generally safe. Anti-inflammatory medications, such as Ibuprofen (Advil or Motrin) or Naproxen (Aleve) can also be used. Lkml-onz-dibfyrz cough and cold medicines can be used according to the instructions on the package. Some dsci-evw-[id number] medicines also contain acetaminophen. Make sure you are not taking more than your recommended dose. For those not hospitalized, there is no specific treatment available for this illness. Antibiotics do not treat Coronaviruses. Follow-Up Follow up with your doctor by scheduling a virtual visit or consider follow-up at one of our urgent care fever clinics. If you are having difficulty breathing, or are very weak and having difficulty standing, this is a medical emergency. Call 911 or have someone take you to the nearest emergency room immediately. If possible, wear a facemask. Additional guidance from the CDC for patients who tested POSITIVE for COVID-19 How to isolate: Isolate yourself in a specific room at home and limit your contact with others. Use a separate bathroom from other members of the household, when possible. Leave home only to get essential medical care. Do not go to work, school or public areas. Avoid using public transportation, ride-sharing, or taxis. Restrict contact with pets and other animals. If you must care for your pet or be around animals while you are sick, wash your hands before and after your interaction and wear a facemask. Make sure that shared spaces in the home have good airflow, such as by an air conditioner or an opened window, weather permitting. Personal Hygiene Procedures: Wear a face mask when in the same room as other people or pets. If a face mask interferes with your breathing, others should wear a mask when sharing space with you. Frequent hand-washing: wash your hands with soap and water for at least 20 seconds. If soap and water are not available, use alcohol-based hand auto parker. Avoid touching your eyes, nose, and mouth with unwashed hands. Household Hygiene Procedures: Avoid sharing personal household items such as dishes, glassware, cups, eating utensils, towels or bedding with other people or pets in your home. After use, these items should be washed with soap and hot water. Disinfect all high-touch surfaces every day with antibacterial cleaning solutions such as Lysol wipes, bleach, cleansers, etc. High-touch surfaces include tabletops, doorknobs, bathroom fixtures, toilets, phones, keyboards, tablets and bedside tables. Immediately clean any surfaces that may have blood, poop or body fluids on them, using antibacterial cleaning solutions such as Lysol wipes, bleach, cleansers, etc. If clothing or bedding come into contact with blood, poop or body fluids, they should be washed immediately. Follow the directions on the laundry detergent and clothing labels but hot water is recommended when possible. Stopping home isolation precautions: If possible, consult your doctor before stopping home isolation precautions. According to the CDC, you can discontinue home isolation precautions when you have met both of these criteria: Your fever and respiratory symptoms have been gone for 24 dallin (more content not included)... Normal [facility] EMR ADDONon 11-15-2022 ADDON CONFIRMATION REQUEST REC'D [facility] Comment on above: Performed By: #### C OINP #### [place] [address] INFLUENZA A/B, COVID 2019 PC R,SYMPTOMATICon 11-15-2022 INFLUENZA A, PCR Detected Abnormal Not Detected [facility] Comment on above: Result Comment: Resp iratory virus testing is performed routinely by PCR for Influenza A/B and RSV. Not Detected results do not preclude Influenza A/B or RSV infections since the adequacy of sample collection or low viral burden may impact the clinical sensitivity of this test method. Performed By: #### C OINP #### [place] [address] INFLUENZA B, PCR Not detected Normal Not Detected [facility] Comment on above: Result Comment: Resp iratory virus testing is performed routinely by PCR for Influenza A/B and RSV. Not Detected results do not preclude Influenza A/B or RSV infections since the adequacy of sample collection or low viral burden may impact the clinical sensitivity of this test method. Performed By: #### C OINP #### [place] [address] Lab Specimen Source Nasal, Nasopharyngeal Normal [facility] Comment on above: Performed By: #### C OINP #### [place] [address] SARS-CoV-2 (COVID-19) RNA LEROY+probe Ql (Unsp spec) Not detected Normal Not Detected [facility] Comment on above: Result Comment: . This test has received FDA Emergency Use Authorization (EUA) and has been verified by [facility]. This test is only authorized for the duration of time that circumstances exist to justify the authorization of the emergency use of in vitro diagnostic tests for the detection of SARS-CoV-2 virus and/or diagnosis of COVID-19 infection under section 564(b)(1) of the Act, 21 U.S.C. 360bbb-3(b)(1), unless the authorization is terminated or revoked sooner. [facility] is certified under CLIA-88 as qualified to perform high complexity testing. Testing is performed in the [facility] laboratory located at [address] [place] [address]. SARS-CoV-2/Flu/RSV Multiplex Test: Fact sheet for providers: https://www.fda.gov/media/564715/download Fact sheet for patients: https://www.fda.gov/media/865901/download Performed By: #### C OINP #### [place] [address] PT/INRon 11-15-2022 PT Coag (PPP) [Time] 14.2 s High 9.8 - 13.4 [facility] Comment on above: Performed By: #### P TINR #### [place] [address] PT, INR 1.2 High 0.9 - 1.1 [facility] Comment on above: Performed By: #### P TINR #### [place] [address] Provider Note - ED v3on 10-28 Provider Note - ED v3 Provider Note: Chart Review: ED NOTES ED NOTES: HPI Patient presents to the emergency department secondary to multiple complaints. Patient complains of cough and difficulty breathing for the past 2 to 3 weeks. Initially had a fever with it but the fever has broken and has not returned. Also describing decreased oral intake. He has been taking Excedrin 3 times a day for his symptoms. The last 2 days he has noticed that his stool is black. He has noticed a taste change also. No abdominal pain. No vomiting. Decreased urine output. Urine has seemed thicker and foul-smelling. Patient does not have a primary care physician. He cannot recall the last time he saw the physician. He has no history of cardiac problems. He has had knee surgery in the past. He is a smoker. He denies illicit drug use. He took a home COVID test 3 days ago and it was negative. Review of Systems negative unless otherwise specified Constitutional: See HPI. Skin: Denies rash HEENT: Denies visual changes, hearing changes, Congestion, Sore throat Neck: Denies neck swelling, pain, stiff neck Cardiopulmonary: See HPI. GI: See HPI. : No dysuria, frequency, nocturia, hematuria, incontinence or polyuria. Musculoskeletal: Denies myalgias, backache, joint pain, stiffness. Hematologic: Denies lympadenopathy, bleeding, bruising, anemia. Neurological: Denies headaches, seizures, paralysis, muscle weakness, tremors, paresthesia, numbness or tingling. Psych: No anxiety, depression suicidal or homicidal ideation. Physical Exam Vital Signs: Listed on the chart. Reviewed. Medications: As listed on the chart Allergies: As listed on the chart PFSH: Patient has no known chronic medical conditions but does not routinely seek health care. Patient has had knee surgery in the past. He is a smoker Physical Exam Appearance: Awake and alert, not in distress. Skin: No rash or lesions, warm and dry Eyes: Pupils equal and reactive ENT: Mucous membranes moist dentition without lesions. Pharynx clear, uvula midline. Neck: Supple, no meningeal signs. Pulmonary: Diminished breath sounds bilaterally. No wheezes rhonchi or rales. Cardiac: Normal rate and rhythm. No obvious murmur. Abdomen: Soft and nontender, nondistended, no mass. Genitourinary: No flank tenderness. Musculoskeletal: No signs of trauma, strong pulses. No tenderness along the venous system. Neurological: Clear speech, NIH 0. Psychiatric: Appropriate mood and affect. No suicidal thoughts or ideation EKG interpretation: EKG was performed at 12:19 AM. It is sinus rhythm rate of 75. Some artifact limitation. No acute ST elevation is identified. ND interval is 171 and QTc is 460. Medical Decision Making: Differential diagnosis for this patient is relatively broad. This includes pneumonia, COVID, influenza, coronary disease, anemia, peptic ulcer disease or other acute cause. Patient is evaluated in the emergency department with chest x-ray, EKG and lab work. Patient's pH is within normal limits. Urine shows protein and small amount of blood no evidence of infection. Patient is influenza A positive and COVID-negative. White count is minimally elevated at 13.4. Potassium is mildly low at 3.3. Patient's chest x-ray shows evidence of possible interstitial edema. BNP is only mildly elevated at 109. At this time patient's symptoms seem to be related to his influenza A infection. He is outside the window for Tamiflu. At this time he is hemodynamically stable and does not desaturate with ambulation so he is discharged to follow-up with primary care. HISTORY OF PRESENTING ILLNESS LYNNETTE is a 52 year old Male and was seen by me at 14-Nov-2022 23:55 for a chief complaint of (c/o cough and diff breathing x3 weeks had fever at beginning states was getting better then 1 week ago started getting worse again has not seen Dr. now c/o dark urine 2-3 days and black stools today has had loss of taste and not hungry x3 weeks)(1). Triage Information: Most recent Vital Sign Value Date Temp (F): 98.1 11-14-2022 22:29 Temp (C): 36.7 11-14-2022 22:29 Heart Rate (beats/min): 76 11-14-2022 22: Respirations (breaths/min): 24 11-14-2022 22:29 SpO2 (%): 96 11-14-2022 22:29 BP Systolic (mm Hg): 123 11-14-2022 22:29 BP Diastolic (mm Hg): 80 11-14-2022 22:29 PAST MEDICAL HISTORY ALLERGIES/INTOLERANCES: No Known Allergies HEALTH HISTORY: No documented data. OUTPATIENT MEDICATIONS: Home Medications Review Status for Reconciliation: N/A Med Status: N/A No documented data. SIGNIFICANT EVENTS: Past Medical History Description:none CRITICAL CARE RESULTS: Recent Lab Results: I have reviewed these laboratory results: Venous Full Panel 15-Nov-2022 00:09:00 ResultValue pH, Venous 7.41 pCO2, Venous 45 pO2, Venous 31 L SO2, Venous 53 Bicarbonate, Calculated, Venous 28.5 H HGB, Venous 13.9 Anion (more content not included)... Normal [facility] RED CELL MORPHOLOGYon 2021 RBC morphology finding Nom (Bld) SEE COMMENT Normal [facility] Comment on above: Result Comment: NO S IGNIFICANT RBC ABNORMALITIES SEEN ON SMEAR REVIEW. Performed By: #### M ORP2 #### [facility] [address] [place] [address] TROPONIN I, HIGH SENSITIVITY on 11-15-2022 TROPONIN I, HIGH SENSITIVITY Canceled Normal [facility] Comment on above: Order Comment: TEST TROPONIN I, HIGH SENSITIVITY WAS CANCELLED, 11/15/2022 16:01 Result Comment: . Less than 99th percentile of normal range cutoff- Female and children under 18 years old <14 ng/L; Male <21 ng/L: Negative Repeat testing should be performed if clinically indicated. . Female and children under 18 years old 14-50 ng/L; Male 21-50 ng/L: Consistent with possible cardiac damage and possible increased clinical risk. Serial measurements may help to assess extent of myocardial damage. . >50 ng/L: Consistent with cardiac damage, increased clinical risk and myocardial infarction. Serial measurements may help assess extent of myocardial damage. . NOTE: Children less than 1 year old may have higher baseline troponin levels and results should be interpreted in conjunction with the overall clinical context. . NOTE: Troponin I testing is performed using a different testing methodology at [facility] than at other [facility]. Direct result comparisons should only be made within the same method. Performed By: #### C OINP #### [facility] [address] [place] [id number] TROPONIN I, HIGH SENSITIVITY 14 ng/L Normal 0 - 20 [facility] Comment on above: Result Comment: . Less than 99th percentile of normal range cutoff- Female and children under 18 years old <14 ng/L; Male <21 ng/L: Negative Repeat testing should be performed if clinically indicated. . Female and children under 18 years old 14-50 ng/L; Male 21-50 ng/L: Consistent with possible cardiac damage and possible increased clinical risk. Serial measurements may help to assess extent of myocardial damage. . >50 ng/L: Consistent with cardiac damage, increased clinical risk and myocardial infarction. Serial measurements may help assess extent of myocardial damage. . NOTE: Children less than 1 year old may have higher baseline troponin levels and results should be interpreted in conjunction with the overall clinical context. . NOTE: Troponin I testing is performed using a different testing methodology at [facility] than at other [facility]. Direct result comparisons should only be made within the same method. Performed By: #### T [facility] #### [facility] [address] [place] [address] Triage - EDon 11-15-2022 Triage - ED Quick Triage: The patient and/or guardian verbally acknowledges placement for services into the following (when Urgent Care Service hours are operating):emergency department Chart Review: ARRIVAL INFORMATION Means of Arrival: Ambulatory Mode of Arrival: private vehicle Arrival From: home Accompanied By: self Language: Spoken Language Preferred: Albanian Reading Language Preferred: Albanian CHIEF COMPLAINT LYNNETTE GONG is a Male patient with a chief complaint of (c/o cough and diff breathing x3 weeks had fever at beginning states was getting better then 1 week ago started getting worse again has not seen now c/o dark urine 2-3 days and black stools today has had loss of taste and not hungry x3 weeks). Triage Date/Time: 14-Nov-2022 22:29 VIMAL: 3 Pain Rating (0-10): 0 = None Vital Signs: Temperature: 98.1F ( 36.7C) taken temporal Blood Pressure: 123/80 Mean: Heart Rate: 76 Respiratory Rate: 24 Pulse Oximetry: 96% on room air, no respiratory support. Height: 5 feet 9.00 inches. 175.2 CM Weight: 317.4 pounds. Calculated 144.0 kg. (stated) Calculated BMI (kg/m2): 46.913 Calculated BSA (m2) 2.65 Cough lasting greater than 3 weeks: yes Patient immunocompromised related to: N/A Allergies: no Patient has homicidal thoughts: no Risk Screens Suicide Risk Screen In the Past Month: Have you wished you were or wished you could go to sleep and not wake up no In the Past Month: Have you had any actual thoughts of killing yourself no In Your Lifetime: Have you ever done anything, started to do anything, or prepared to do anything to end your life no Rosenthal Fall Scale Screening Has the patient fallen before (or is the patient in the ED as a result of a fall) has not had a fall Does the patient have an impaired gait does not have impaired gait Is the patient cognitively impaired not cognitively impaired Interventions: Rosenthal Fall Interventions: LOW INTERVENTIONS: *patient oriented to surroundings and call system, * patient/family falls education completed and documented, *patients fall status communicated during bedside handoff, *whiteboard updated, *mode of toileting discussed with patient, *bed in low position with brakes locked, *call light in reach, * non-skid footwear TRAVEL HISTORY Travel History Coronavirus Screening: positive for symptoms Coronavirus Screening Details: cough fever diff breathing loss of taste Travel Exposure History: NO travel to International locations in the past 30 days PAIN Pain Scale Used: TAPAN Pain Rating (0-10): 0 = None Past Medical History: Past Medical History Reviewedyes none: Past Medical History, Active Electronic Signatures: Dana Aguirre (RN) (Signed 14-Nov-2022 22:36) Authored: Quick Triage, Risk Screens, Pain, Arrival, Travel History, Chart Review, Past Medical History Last Updated: 14-Nov-2022 22:36 by Dana Aguirre (RN) Normal [place]/Por [facility] UA MICROSCOPICon 11-15-2022 RBC 4 /HPF Normal 0-5 [place]/[facility] Comment on above: Performed By: #### U AMIC #### [address] [address] WBC 2 /HPF Normal 0-5 [place]/[facility] Comment on above: Performed By: #### U AMIC #### [address] [address] URINALYSISon 11-15-2022 Appearance (U) Clear Normal CLEAR [place]/ or [facility] Comment on above: Performed By: #### C OINP #### [address] [address] Bilirubin Ql (U) Negative Normal NEGATIVE [place] /[facility] Comment on above: Performed By: #### C OINP #### [address] [address] Color (U) Yellow Normal STRAW,YELLOW [place]/[facility] Comment on above: Performed By: #### C OINP #### [address] [address] Glucose Ql (U) Negative Normal NEGATIVE [place]/P or [facility] Comment on above: Performed By: #### C OINP #### [address] [address] Hemoglobin Ql (U) SMALL(1+) Abnormal NEGATIVE [place] Comment on above: Performed By: #### C OINP #### [address] [address] Ketones Ql (U) 5(Trace) mg/dl Abnormal NEGATIVE [place]/Por [facility] Comment on above: Performed By: #### C OINP #### [address] [address] Leukocyte esterase Test strip Ql (U) Negative Normal NEGATIVE [place]/[facility] Comment on above: Performed By: #### C OINP #### [address] [address] Nitrite Ql (U) Negative Normal NEGATIVE [facility] or [facility] Comment on above: Performed By: #### C OINP #### [address] [address] pH (U) 6.0 [pH] Normal 5.0 - 8.0 [place]/[facility] Comment on above: Performed By: #### C OINP #### [address] [address] Protein Ql (U) 100(2+) Abnormal NEGATIVE [place]/ or [facility] Comment on above: Performed By: #### C OINP #### [address] [address] Specific gravity (U) [Rel density] 1.021 Normal 1.005 - 1.035 [place]/[facility] Comment on above: Performed By: #### C OINP #### [address] [address] Urobilinogen (U) [Mass/Vol] 4.0 mg/dL High 0.0 - 1.9 [facility] Comment on above: Result Comment: SOME PIGMENTS AND MEDICATIONS MAY CAUSE A FALSE POSITIVE UROBILINOGEN Performed By: #### C OINP #### [address] [address] VENOUS FULL PANELon 12-20-20 22 Anion gap [Moles/Vol] 12 mmol/L Normal 10 - 25 [facility] inson/[facility] Comment on above: Performed By: #### V FPA4 #### [address] [address] BASE EXCESS-BLOOD 3.2 mmol/L High -2.0 - 3.0 [facility] Comment on above: Performed By: #### V FPA4 #### [place] [address] BICARB, CALCULATED 28.5 mmol/L High 22.0 - 26.0 [facility] Comment on above: Performed By: #### V FPA4 #### [place] [address] CALCIUM,IONIZED 1.13 mmol/L Normal 1.10 - 1.33 [facility] Comment on above: Performed By: #### V FPA4 #### [address] [address] Chloride [Moles/Vol] 94 mmol/L Low 98 - 107 [facility] Comment on above: Performed By: #### V FPA4 #### [address] [address] Glucose [Mass/Vol] 128 mg/dL High 74 - 99 [place] [facility] Comment on above: Performed By: #### V FPA4 #### [address] [address] Hematocrit (Bld) [Volume fraction] 42.0 % Normal 41.0 - 52.0 [facility] Comment on above: Performed By: #### V FPA4 #### [address] [address] Hemoglobin (Bld) [Mass/Vol] 13.9 g/dL Normal 13.5 - 17.5 [facility] Comment on above: Performed By: #### V FPA4 #### [address] [address] Lactate [Moles/Vol] 1.1 mmol/L Normal 0.4 - 2.0 [facility] Comment on above: Performed By: #### V FPA4 #### [address] [address] OXY HGB 51.7 % Normal 45.0 - 75.0 [facility] Comment on above: Performed By: #### V FPA4 #### [address] [address] Oxygen (Bld) [Partial pressure] 31 mm[Hg] Low 35 - 45 [facility] Comment on above: Performed By: #### V FPA4 #### [address] [address] PATIENT TEMPERATURE 37.0 degrees C Normal R [facility] Comment on above: Result Comment: NOTE : PATIENT RESULTS ARE NOT CORRECTED FOR TEMPERATURE. Performed By: #### V FPA4 #### [address] [address] PCO2 45 mmHg Normal 41 - 51 [facility] Comment on above: Performed By: #### V FPA4 #### [address] [address] pH (Bld) 7.41 [pH] Normal 7.33 - 7.43 [facility] Comment on above: Performed By: #### V FPA4 #### [address] [address] Potassium [Moles/Vol] 3.2 mmol/L Low 3.5 - 5.3 [facility] inson/[facility] Comment on above: Performed By: #### V FPA4 #### [address] [address] SO2 53 % Normal 45 - 75 [place]/[facility] Comment on above: Performed By: #### V FPA4 #### [address] [address] Sodium [Moles/Vol] 131 mmol/L Low 136 - 145 [place]/[facility] Comment on above: Performed By: #### V FPA4 #### [address] [address] Vital Signs Date Time Vital Sign Value Performing Clinician Adrianne block 02-04-2024 17:39-0400 Body height 175.26 cm [facility] 02-04-2024 17:39-0400 Body mass index (BMI) [Ratio] 44.4 kg/m2 [facility] 02-04-2024 17:39-0400 Body temperature 96.3 [degF] [facility] 02-04-2024 17:39-0400 Body weight 136.57 kg [facility] 02-04-2024 17:39-0400 Diastolic blood pressure 90 mm[Hg] [facility] 02-04-2024 17:39-0400 Heart rate 100 /min [facility] 02-04-2024 17:39-0400 Respiratory rate 22 /min [facility] 02-04-2024 17:39-0400 SaO2% (BldA) [Mass fraction] 100 % [facility] 02-04-2024 17:39-0400 Systolic blood pressure 149 mm[Hg] [facility] 09-20-2022 12:45-0400 Body height 177.8 cm [facility] Work Phone: 09-20-2022 12:45-0400 Body mass index (BMI) [Ratio] 44.4 kg/m2 [facility] Work Phone: 09-20-2022 12:45-0400 Body temperature 97.7 [degF] [facility] Work Phone: 09-20-2022 12:45-0400 Body weight 140.61 kg [facility] Work Phone: 09-20-2022 12:45-0400 Diastolic blood pressure 80 mm[Hg] [facility] Work Phone: 09-20-2022 12:45-0400 Heart rate 98 /min [facility] Work Phone: 09-20-2022 12:45-0400 Respiratory rate 18 /min [facility] Work Phone: 09-20-2022 12:45-0400 SaO2% (BldA) [Mass fraction] 96 % [facility] Work Phone: 09-20-2022 12:45-0400 Systolic blood pressure 160 mm[Hg] [facility] Work Phone: Encounters Encounter Date Encounter Type Care Provider Facility Start: 02-04-2024 End: 02-04-2024 Emergency department patient visit [facility] Work Phone: Start: 11-15-2022 End: 11-15-2022 Emergency department patient visit Dr. OSIRIS BARRETT Facility:[id number] Start: 09-20-2022 End: 09-20-2022 Emergency department patient visit [facility] Start: 03-09-2022 ambulatory Tony Altman Facility:[id number] Plan of Treatment Date Care Activity Detail Author Start: 09-20-2022 Electrocardiographic procedure [facility] Work Phone: Patient Education ED Chest Pain, Uncertain Cause [facility] Work Phone: Patient referral [facility] Work Phone: Payers Date Payer Category Payer Medicare [id number] 241 [id number] 2024 Self-pay [id number] 1970 Unknown [id number] 1970 Unknown [id number] Medicaid MEDICAID [id number] Unknown [id number] Unknown [id number] Social History Date Type Detail Facility Start: 09-20-2022 End: 02-04-2024 Tobacco smoking status NHIS Unknown if ever smoked [facility] Start: 1970 Sex Assigned At Male W [facility] Mental Status Date Assessment Result Facility 02-04-2024 Cognitive function Level Of Cons ciousness Awake;Alert [facility] Work Phone: Clinical Note 11-16-2022 Note Date & Type [...] Post-Discharge Culture Follow Up Team, please contact [phone]. . Aspen Chapa PharmD PGY1 Resident [facility] Electronic Signatures: Aspen Chapa (PHARM STUD) (Signed 16-Nov-2022 15:13) Authored: Education Deborah Ramirez (PharmD) (Signed 17-Nov-2022 08:30) Co-Signer: Education Last Updated: 17-Nov-2022 08:30 by Deborah Ramirez (PharmD) [facility] Evaluation note Note Date & Type Note Facility Evaluation note No assessment information availa ble [facility] Work Phone: Hospital Discharge instructions Note Date & Type Note Facility Hospital Discharge instructions Additional Instructions Please return if you lose consciousness, if you develop chest pain, if you have shortness of breath we have difficulty with exertion. Please follow-up with the family practice physician Dr. Dias. Please get an outpatient stress test for further evaluation of possible heart issues. [facility] Work Phone: Chief Complaint and Reason for Visit Chief Complaint UPPER EXTREMITY Chief Complaint unknown substance in gestion Advance Directives No Advanced Directives Records Found Advance Directive Response Recorded Date/ Time Living Will No September 20 2:16pm Power of Dental Technician No September 20, 2022 2:16pm Summary Purpose Family History No Family History Records FoundNo Family History Records Found Additional Source Comments Goals (unrecognized section and content) Goals may be documented in a n alternate sectionGoals may be documented in an alternate section (unrecognized sect ion and content) No Status Records FoundNo Status Records Found INFORMATION SOURCE (unrecogn ized section and content) DATE CREATED AUTHOR 11/18/2022 [facility] DATE CREATED AUTHOR AUTHOR'S LUZ GUERRA 05/01/2025 [facility] Care Teams (unrecognized sec tion and content) Team Status: Active Member Role Status Dates No Primary Care Physician Family Provider Active No Primary Care Physician Primary Care Provider Active Team Status: Inactive Member Role Status Dates No Primary Care Physician Primary Care Provider Active Dr. Henrik Garza , DO Emergency Provider Active FOR RECORDS PERTAINING TO PATIENTS WHO ARE [...] BE BASED ON THE PRIMARY CLINICAL RECORDS. [facility] provides no warranty or guarantee of the accuracy or completeness of information in this document.
[2025-05-03] MEDS: cloNIDine HCl 0.1 MG Tablet PO (16:18)
[2025-05-03 16:19] LABS: Troponin T High Sensitivity 9 ng/L (<=22)
[2025-05-03 16:22] LABS: Anion Gap 13 (5-15); BUN 5 mg/dL (4-19); BUN/Creat Ratio 6.9 RATIO (10-20); Calcium,Total 9.1 mg/dL (7.6-11.0); Carbon Dioxide 21.4 mmol/L (21.0-32.0); Chloride 84 mmol/L (98-108); Creatinine, Serum 0.74 mg/dL (0.70-1.20); EST Glomerular Filtration Rate 107 (>60); Glucose 113 mg/dL (70-99); Potassium 4.5 mmol/L (3.3-5.1); Sodium Level 119 mmol/L (133-145)
--- NOTE | 2025-05-03 16:22 | ED.RN ---
lab called sodium of 119. dr white
[2025-05-03] MEDS: 0.9% Normal Saline (1000mL) 1,000 ML 100 ML IV ×2 (16:52→19:48)
[2025-05-03 17:29] LABS: Free T3 2.8 pg/mL (2.18-3.98)
[2025-05-03 17:36] VITALS: BP 159/89; PULSE 73; RESP 16; O2SAT 98
--- NOTE | 2025-05-03 18:06 | HP.PCM.HOS_ITS ---
HPI - General General Date of Admission: 05/03/25 Date of Service: 05/03/25 Chief Complaint: Elevated blood pressure HPI Narrative LYNNETTE GONG, is a 54 M who presented to the emergency department [facility] on 05/03/2025 with the chief complaint of elevated blood pressure. Patient recently has established with a doctor and he not traditionally followed with a physician. They started him on losartan 25 mg daily however his blood pressures remain markedly elevated. He was concerned so he came to the emergency department. He has been having headaches and difficulty sleeping. He states that he sleeps only about 2 hours at a time. He also has chronic low back pain. He states he suspects he has sleep apnea but has never been evaluated. He also is a smoker. Blood pressure at home prior to presentation was in the 200s systolic so he was advised by his PCP on-call physician to come to the emergency department. Headache was resolved at the time of admission. Vital signs on presentation showed a temperature of 97.4, heart rate 83, blood pressure was 186/101, respiratory rate is 18, pulse ox was 100% on room air. CBC shows a very mild leukocytosis with white count of 11.6. Chemistry panel showed marked hyponatremia with a sodium of 119 and a chloride of 84 but was otherwise unremarkable. Glucose was only 113 and A1c was obtained in the emergency department found to be 6.0. Troponin was 9 with a repeat of 9. TSH was normal at 1.05. Patient has had previous tox screens positive for amphetamine/MDMA but it is unclear what medications he was on at that time. Patient denies any current alcohol or drug use. He does smoke about a pack of cigarettes daily. He was started on IV fluids. We have added some's subsequent testing to see if we can figure out the etiology of his hyponatremia. He was also given some clonidine p.o. x 1 dose in the emergency department to bring his blood pressure down with his most recent blood pressure at 159/89. [facility] Medical History HTN (hypertension) Morbid obesity Home Medications ?Medication ?Instructions ?Recorded ?Last Taken ?Type losartan 25 mg tablet 25 mg PO DAILY 05/03/25 Unkn own History Allergy/AdvReac Type Severity Reaction Status Date / Time No Known Allergies Allergy Verified 05/03/25 15:37 no significant family history no surgical history Social History (Updated 05/03/25 @ 18:[address] Meseret Minor, DO) Smoking Status: Current every day smoker tobacco type: cigarettes alcohol intake: never substance use type: does not use ROS Constitutional Constitutional: Denies anorexia, change in weight, chills, fatigue, fever(s), malaise, night sweats, weakness or other Eyes Eyes: Denies blurry vision, change in eye color, change in vision, discharge from eye(s), double vision, erythema, eye pain, loss of vision or other ENT HEENT: Reports headache(s) and post nasal drip; Denies abnormal hearing, dysphagia, ear pain, epistaxis, hearing loss, nasal congestion, nasal discharge, sinus pressure, sore throat or other Cardiovascular Cardiovascular: Denies chest pain, claudication, dyspnea on exertion, edema, lightheadedness, orthopnea, palpitations, paroxysmal nocturnal dyspnea, rapid heart rate, syncope or other Respiratory/Chest Respiratory/Chest: Denies cough, dyspnea, excessive phlegm production, hemoptysis, productive cough, shortness of breath at rest, shortness of breath with exertion, wheezing or other Gastrointestinal Gastrointestinal: Denies abdominal pain, coffee ground emesis, constipation, diarrhea, dyspepsia, hematemesis, hematochezia, loose stools, melena, nausea, vomiting or other Genitourinary Genitourinary: Denies burning urination, difficulty urinating, dysuria, hematuria, nocturia, urinary frequency, urinary hesitancy, urinary incontinence, urinary urgency or other Musculoskeletal Musculoskeletal: Reports back pain; Denies arthralgias, joint pain, joint stiffness, joint swelling, myalgias, neck pain or other Neurologic Neurologic: Denies abnormal gait, abnormal speech, confusion, disequilibrium, dizziness, focal weakness, headache(s), numbness, paresthesias, seizure-like activity, seizures, syncope, tingling, tremor(s) or other Psychiatric Psychiatric: Denies anxiety, depression, homicidal ideation, suicidal ideation or other Endocrine Endocrinology: Denies change in body appearance, cold intolerance, excessive sweating, heat intolerance, polydipsia, polyuria or other Hematologic/Lymphatic Hematologic/Lymphatic: Denies anemia, easy bleeding, easy bruising, lymphadenopathy or other Allergic/Immunologic Allergic/Immunologic: Denies rhinitis, hives, eczemia, asthma or other Vital Signs Vital Signs Vital Signs: 05/03/25 15:36 05/03/25 15:37 05/03/25 15:49 Temperature 97.4 F L Temperature Source Temporal Pulse Rate 83 Respiratory Rate 18 Respiratory Effort Normal Non-Labored Respiratory Pattern Normal Blood Pressure 186/101 H Blood Pressure Mean 129 Pulse Ox 100 Oxygen Delivery Method Room Air Room Air Weight Weight: 148.597 kg Body Mass Index (BMI) 48.4 Physical Exam Const alert, oriented x3, no apparent distress and well nourished; Negative for average body habitus or healthy appearing Constitutional Narrative: Morbidly obese, white male, sitting up in chair at the bedside, appears comfortable, nontoxic General Appearance: cooperative HEENT normocephalic, head/scalp atraumatic, hearing grossly normal bilaterally and moist oral mucous membranes HEENT Narrative: Mallampati 4, dentition is fair, no thrush Eyes conjunctivae normal Eyes Narrative: No scleral icterus Neck supple Neck Narrative: Neck is short and thick with redundant tissue Resp normal respiratory effort, no retractions, no use of accessory muscles and clear to auscultation bilaterally Resp Narrative: Diminished diffusely most specifically at the apices with better air movement at the bases Auscultation: Negative for rales, rhonchi or wheezes Cardio regular rate, regular rhythm, S1 normal heart sound, S2 normal heart sound, no murmurs, no rub, no gallops and no clicks GI normal to inspection, nondistended, normoactive bowel sounds, soft to palpation and non-tender GI Narrative: Large protuberant abdomen Extremity no clubbing, cyanosis or edema Extremity Narrative: 2+ pedal and radial pulses Neuro oriented x3, moves all extremities and no focal motor deficits Speech: speech normal Psych Psych Narrative: Slightly agitated but pleasant enough, makes good eye contact, interacts appropriately Results Lab / Micro Data 05/03/25 15:52 05/03/25 15:52 Labs: Laboratory Results - last 24 hr 05/03/25 15:52: WBC 11.6 H, RBC 5.06, Hgb 14.8, Hct 41.1, MCV 81.2, MCH 29.2, MCHC 36.0, RDW Std Deviation 37.1, RDW Coeff of Senia 12.6, Plt Count 313, MPV 9.0, Immature Gran % (Auto) 0.600, Neut % (Auto) 76.5 H, Lymph % (Auto) 15.6 L, Spencer % (Auto) 6.7, Eos % (Auto) 0.1, Baso % (Auto) 0.5, Absolute Neuts (auto) 8.9 H, Absolute Lymphs (auto) 1.81, Nucleated RBC % 0, Sodium 119 L*, Potassium 4.5, Chloride 84 L, Carbon Dioxide 21.4, Anion Gap 13, BUN 5, Creatinine 0.74, Estim Creat Clear Calc 162.50, Est GFR (MDRD) Non-Af 107, BUN/Creatinine Ratio 6.9 L, Glucose 113 H, Hemoglobin A1c 6.0 H, Calcium 9.1, Troponin T High Sens 9 05/03/25 16:45: TSH 1.050, Free T4 1.30, Free T3 pg/dL 2.8 Imaging Radiology Impression Chest X-Ray 05/03/25 16:00 IMPRESSION: NO ACUTE FINDINGS. Reading Location: [id number] Assessment & Plan Assessment/Plan (1) Acute hyponatremia: (2) Hypertensive urgency: (3) Hyperglycemia: PLAN: Plan Acute hyponatremia - Etiology is unclear as he is on no medications that precipitate hyponatremia - Patient is a smoker so if this is consistent with SIADH may need a CT of the chest to rule out malignancy - Check urinalysis, urine sodium, urine osmolality, serum osmolality, serum uric acid - Check TSH and cortisol level - IV fluids started in the emergency department will continue for now until can better establish the etiology of his hyponatremia this appears to be euvolemic in nature - Monitor serial sodiums every 6 hours--> rate of rise should be no more than 12 mEq in 24 hours - Patient does seem to be asymptomatic with regard to his hyponatremia Hypertensive urgency - Continue losartan increased dose from 25 to 100 mg daily - Will do an extra 50 mg right now as he did get some clonidine - 100 mg dosing to start tomorrow morning - Goal overall should be less than 130/80 - Will check cortisol and TSH - Patient may have obstructive sleep apnea which could be contributing to his uncontrolled hypertension and he should be evaluated for this as an outpatient Mild hyperglycemia - Hemoglobin A1c done the emergency department was 6.0 so he does have some insulin resistance - Would recommend weight loss and regimented diet Morbid obesity - BMI is 48.4 - Recommend weight loss - Complicates treatment, prognosis, outcomes - Highly suspect patient has obstructive sleep apnea at baseline and outpatient polysomnography is recommended Tobacco abuse - Nicotine patch replacement available - Patient does seem ready to quit and asked his PCP to call in Chantix however it is too expensive for him. - We did discuss that there are other alternatives and I recommended he discuss this with his primary care physician- DVT prophylaxis - Lovenox SQ twice daily CODE STATUS - Full code Charges/Coding Visit Charges Inpatient E&M: 27140 Init Hosp L2
[2025-05-03 18:11] VITALS: BP 159/89; PULSE 73; RESP 16; TEMP 36.7; O2SAT 98
[2025-05-03 18:51] LABS: Troponin T High Sens 2 HR 9 ng/L (<=22)
--- OUTSIDE RECORDS SUMMARY | 2025-05-03 18:59 | XMS RPT_ITS | CCD ---
Author Organization [facility] Inform ion Partnership [facility] Care Team Providers Care Cytology Technologist Name Role Phone Dr. OSIRIS BARRETT Attending [...] Auto (Unsp spec) [#/Vol] 2.33 10*3/uL 0.83-4.51 [facility] Automated lymphocyte count a s percentage of total leukocytesOrdered By: Suzette Jay on 02-04-2024 Lymphocytes/100 WBC Auto (Unsp spec) 15.5 % 19-41 [facility] Basophil percentageOrdered B y: Suzette Jay on 02-04-2024 Basophils/100 WBC (Bld) 0.8 % 0-1 [facility] Chloride [Moles/Vol] 102 mmol/L 98-107 [facility] Eosinophils/100 WBC (Bld) 0.1 % 0-5 [facility] Glucose [Mass/Vol] 99 mg/dL 74-106 [facility] Hemoglobin (Bld) [Mass/Vol] 16.0 g/dL 13.0-16.5 [facility] Monocytes/100 WBC (Bld) 10.0 % 0-10 [facility] Neutrophils (Bld) [#/Vol] 11.0 10*3/uL 2.0-7.7 [facility] Neutrophils/100 WBC (Bld) 73.1 % 47-70 [facility] Potassium [Moles/Vol] 3.8 mmol/L 3.5-5.1 [facility] Sodium [Moles/Vol] 138 mmol/L 136-145 [facility] WBC (Bld) [#/Vol] 15.0 10*3/uL 4.4-11.0 [facility] Determination of erythrocyte mean corpuscular volume (MCV)Ordered By: Suzette Jay on 02-04-2024 MCV (RBC) [Entitic vol] 86.6 fL 80-94 [facility] Erythrocyte distribution wid th ratioOrdered By: Suzette Jay on 02-04-2024 Erythrocyte distribution width (RBC) [Ratio] 13.0 % 11.6-14.6 [facility] Erythrocyte distribution wid th standard deviationOrdered By: Suzette Jay on 02-04-2024 Erythrocyte distribution width (RBC) [Entitic vol] 40.7 fL 35.1-43.9 [facility] Hematocrit Auto (Bld) [Volum e fraction]Ordered By: Suzette Jay on 02-04-2024 Hematocrit (Bld) [Volume fraction] 46.5 % 40-54 [facility] Immature granulocytes/100 WB C Auto (Bld)Ordered By: Suzette Jay on 02-04-2024 Immature granulocytes/100 WBC (Bld) 0.500 % 0.0-0.9 [facility] Comment on above: IG% - Immature Granu locytes (promyelocytes, myelocytes and metamyelocytes) > 1% indicates that a LEFT SHIFT is Present. Laboratory - Chemistry and C hemistry - challengeOrdered By: Suzette Jay on 02-04-2024 CO2 [Moles/Vol] 25.0 mmol/L 21.0-32.0 [facility] Urea nitrogen/Creatinine [Mass ratio] 10.5 mg/mg 10- [facility] Laboratory - Drug toxicology Ordered By: Suzette Jay on 02-04-2024 Amphetamines Ql (U) Positive <1000 ng/mL [facility] Benzodiazepines Ql (U) Negative < 200 ng/mL [facility] Cannabinoids Screen Ql (U) Negative < 50 ng/mL [facility] Cocaine Ql (U) Negative < 300 ng/mL [facility] Opiates Ql (U) Negative < 300 ng/mL [facility] Laboratory - Hematology and Cell countsOrdered By: Suzette Jay on 02-04-2024 MCH (RBC) [Entitic mass] 29.8 pg 27.0-32.0 [facility] MCHC (RBC) [Mass/Vol] 34.4 g/dL 32-36 [facility] Nucleated RBC/100 WBC (Bld) [Ratio] 0 % 0-5 [facility] Platelet mean volume (Bld) [Entitic vol] 10.6 fL 6.2-12.0 [facility] Platelets (Bld) [#/Vol] 298 10*3/uL 150-450 [facility] No Panel InformationOrdered By: Suzette Jay on 02-04-2024 Estimated Creatinine Clearance Calc 122.02 ml/min [facility] Estimated GFR (MDRD) Amer 106 mL/min >60 [facility] Comment on above: GFR Calc Estimated GFR (MDRD) Non-Af Amer 87 mL/min >60 [facility] Comment on above: Non- GFR Calc Ethyl Alcohol Level < 3.0 mg/dL [facility] Comment on above: The serum:whole bloo d ethanol ratio is approximately 1.14and varies slightly with hematocrit. Medical Alcohol reference interval and critical value innon-tolerant individuals; 50 - 100 Impairment 100 Intoxication 100 - 250 Severe Poisoning 250 - 400 Deep/possible fatal coma MDMA (Ecstasy) Screen Positive < 500 ng/mL [facility] Urine Barbiturates Screen Negative < 200 ng/mL [facility] Urine Drug Screen Comment [facility] Comment on above: CONFIRMATORY TESTING FOR ALL [...] Methadone Screen Negative < 300 ng/mL [facility] RBC Auto (Bld) [#/Vol]Ordere d By: Suzette Jay on 02-04-2024 RBC (Bld) [#/Vol] 5.37 10*6/uL 4.6-6.2 [facility] Serum or plasma calcium pepe urement (mass/volume)Ordered By: Suzette Jay on 02-04-2024 Calcium [Mass/Vol] 9.0 mg/dL 8.5-10.1 [facility] Serum or plasma creatinine m easurement (mass/volume)Ordered By: Suzette Jay on 02-04-2024 Creatinine [Mass/Vol] 0.95 mg/dL 0.70-1.30 [facility] Comment on above: The validity of the calculated GFR & GFRAA in patients over 70 years has not been determined. Clinical correlation is essential. Serum or plasma urea nitroge n measurement (mass/volume)Ordered By: Suzette Jay on 02-04-2024 Urea nitrogen [Mass/Vol] 10 mg/dL 7-18 [facility] Thin prep Papanicolaou smear with manual screeningOrdered By: Suzette Jay on 02-04-2024 Thin prep Papanicolaou smear with manual screening 11 5-15 [facility] Urine phencyclidine (PCP) de tectionOrdered By: Suzette Jay on 02-04-2024 Phencyclidine Ql (U) Negative < 25 ng/mL [facility] BNPon 11-15-2022 Natriuretic peptide B (Bld) [Mass/Vol] 109 pg/mL High 0 - 99 [facility] Comment on above: Result Comment: . <1 00 pg/mL - Heart failure unlikely 100-299 pg/mL - Intermediate probability of acute heart . failure exacerbation. Correlate with clinical . context and patient history. >=300 pg/mL - Heart Failure likely. Correlate with clinical . context and patient history. BNP testing is performed using different testing methodology at [facility] than at other [facility]. Direct result comparisons should only be made within the same method. Performed By: #### B NP2 #### [place] [address] CBC AND DIFFERENTIALon 11-15 % AUTOMATED IMMATURE GRAN 0.4 % Normal 0.0 - 0.9 [facility] Comment on above: Result Comment: Hanna ture Granulocyte Count (IG) includes promyelocytes, myelocytes and metamyelocytes but does not include bands. Percent differential counts (%) should be interpreted in the context of the absolute cell counts (cells/L). Performed By: #### C BCDF #### [address] [address] Basophils (Bld) [#/Vol] 0.02 10*3/uL Normal 0.00 - 0.10 [facility] Comment on above: Performed By: #### C BCDF #### [address] [address] Basophils/100 WBC (Bld) 0.1 % Normal 0.0 - 2.0 [place] Comment on above: Performed By: #### C BCDF #### [address] [address] Lymphocytes (Bld) [#/Vol] 1.94 10*3/uL Normal 1.20 - 4.80 [facility] Comment on above: Performed By: #### C BCDF #### [address] [address] Lymphocytes/100 WBC (Bld) 14.5 % Normal 13.0 - 44.0 [facility] Comment on above: Performed By: #### C BCDF #### [address] [address] Monocytes (Bld) [#/Vol] 1.27 10*3/uL High 0.10 - 1.00 [facility] Comment on above: Performed By: #### C BCDF #### [address] [address] Monocytes/100 WBC (Bld) 9.5 % Normal 2.0 - 10.0 [facility] Comment on above: Performed By: #### C BCDF #### [address] [address] Neutrophils (Bld) [#/Vol] 10.08 10*3/uL High 1.20 - 7.70 [facility] Comment on above: Performed By: #### C BCDF #### [address] [address] Neutrophils/100 WBC (Bld) 75.5 % Normal 40.0 - 80.0 [facility] Comment on above: Performed By: #### C BCDF #### [address] [address] Erythrocyte distribution width (RBC) [Ratio] 13.5 % Normal 11.5 - 14.5 [facility] Comment on above: Performed By: #### C BCDF #### [place] [id number] Hematocrit (Bld) [Volume fraction] 39.4 % Low 41.0 - 52.0 [facility] Comment on above: Performed By: #### C BCDF #### [place] [id number] Hemoglobin (Bld) [Mass/Vol] 13.9 g/dL Normal 13.5 - 17.5 [facility] Comment on above: Performed By: #### C BCDF #### [place] [address] MCHC (RBC) [Mass/Vol] 35.3 g/dL Normal 32.0 - 36.0 [facility] Comment on above: Performed By: #### C BCDF #### [place] [id number] MCV (RBC) [Entitic vol] 84 fL Normal 80 - 100 [facility] Comment on above: Performed By: #### C BCDF #### [address] [address] Platelets (Bld) [#/Vol] 225 10*3/uL Normal 150 - 450 [facility] Comment on above: Performed By: #### C BCDF #### [place] [address] RBC 4.68 x10E12/L Normal 4.50 - 5.90 [facility] Comment on above: Performed By: #### C BCDF #### [address] [address] WBC (Bld) [#/Vol] 13.4 10*3/uL High 4.4 - 11.3 [facility] Comment on above: Performed By: #### C BCDF #### [address] [place] [address] COMPREHENSIVE PANELon 2021 Albumin [Mass/Vol] 3.9 g/dL Normal 3.4 - 5.0 [place] [facility] Comment on above: Performed By: #### C MP #### [address] [address] ALP [Catalytic activity/Vol] 57 U/L Normal 33 - 120 [facility] Comment on above: Performed By: #### C MP #### [address] [address] ALT [Catalytic activity/Vol] 21 U/L Normal 10 - 52 [facility] Comment on above: Result Comment: Suly ents treated with Sulfasalazine may generate falsely decreased results for ALT. Performed By: #### C MP #### [address] [address] Anion gap [Moles/Vol] 14 mmol/L Normal 10 - 20 [facility] Comment on above: Performed By: #### C MP #### [address] [address] AST [Catalytic activity/Vol] 51 U/L High 9 - 39 [facility] Comment on above: Performed By: #### C MP #### [address] [address] Bilirubin [Mass/Vol] 0.9 mg/dL Normal 0.0 - 1.2 [facility] Comment on above: Performed By: #### C MP #### [address] [address] Calcium [Mass/Vol] 8.8 mg/dL Normal 8.6 - 10.3 [place] [facility] Comment on above: Performed By: #### C MP #### [address] [address] Chloride [Moles/Vol] 95 mmol/L Low 98 - 107 [facility] Comment on above: Performed By: #### C MP #### [address] [address] Creatinine [Mass/Vol] 0.93 mg/dL Normal 0.50 - 1.30 [facility] Comment on above: Performed By: #### C MP #### [address] [address] eGFR MALE >90 Normal >90 [facility] Comment on above: Result Comment: CALC ULATIONS OF ESTIMATED GFR ARE PERFORMED USING THE 2020 CKD-EPI STUDY REFIT EQUATION WITHOUT THE RACE VARIABLE FOR THE IDMS-TRACEABLE CREATININE METHODS. https://jasn.asnjournals.org/content//ASN.82469 [address] Performed By: #### C MP #### [address] [address] Glucose [Mass/Vol] 120 mg/dL High 74 - 99 [place] [facility] Comment on above: Performed By: #### C MP #### [address] [address] HCO3 (Bld) [Moles/Vol] 27 mmol/L Normal 21 - 32 [facility] Comment on above: Performed By: #### C MP #### [address] [address] Potassium [Moles/Vol] 3.3 mmol/L Low 3.5 - 5.3 [facility] Comment on above: Performed By: #### C MP #### [address] [address] Protein [Mass/Vol] 7.4 g/dL Normal 6.4 - 8.2 [place] [facility] Comment on above: Performed By: #### C MP #### [address] [address] Sodium [Moles/Vol] 133 mmol/L Low 136 - 145 [place] [facility] Comment on above: Performed By: #### C MP #### [address] [address] Urea nitrogen [Mass/Vol] 8 mg/dL Normal 6 - 23 [facility] Comment on above: Performed By: #### C #### [facility] [address] [place] [address] Covid 19 Resultson 2 SARS-CoV-2 (COVID-19) RNA [...] You may also be contacted by the [facility] to see if any of [...] or Naproxen (Aleve) can also be used. Prml-uce-avnjjbi cough and cold medicines can be used according to the instructions on the package. Some qflw-scq-esheiua medicines also contain acetaminophen. Make sure you [...] water are not available, use alcohol-based hand guest experience captain. Avoid touching your eyes, nose, and mouth [...] 24 dallin (more content not included)... [facility] EMR ADDONon 11-15-2022 ADDON CONFIRMATION REQUEST REC'D [facility] Comment on above: Performed By: #### C OINP #### [place] [address] INFLUENZA A/B, COVID 2019 PC R,SYMPTOMATICon 11-15-2022 INFLUENZA A, PCR Detected Abnormal Not Detected [facility] Comment on above: Result Comment: Resp iratory virus testing is performed routinely by PCR for Influenza A/B and RSV. Not Detected results do not preclude Influenza A/B or RSV infections since the adequacy of sample collection or low viral burden may impact the clinical sensitivity of this test method. Performed By: #### C OINP #### [place] [address] INFLUENZA B, PCR Not detected Normal Not Detected [facility] Comment on above: Result Comment: Resp iratory virus testing is performed routinely by PCR for Influenza A/B and RSV. Not Detected results do not preclude Influenza A/B or RSV infections since the adequacy of sample collection or low viral burden may impact the clinical sensitivity of this test method. Performed By: #### C OINP #### [place] [address] Lab Specimen Source Nasal, Nasopharyngeal [facility] Comment on above: Performed By: #### C OINP #### [place] [address] SARS-CoV-2 (COVID-19) RNA LEROY+probe Ql (Unsp spec) Not detected Normal Not Detected [facility] Comment on above: Result Comment: . This test has received FDA Emergency Use Authorization (EUA) and has been verified by [facility]. This test is only authorized for the duration of time that circumstances exist to justify the authorization of the emergency use of in vitro diagnostic tests for the detection of SARS-CoV-2 virus and/or diagnosis of COVID-19 infection under section 564(b)(1) of the Act, 21 U.S.C. 360bbb-3(b)(1), unless the authorization is terminated or revoked sooner. [facility] is certified under CLIA-88 as qualified to perform high complexity testing. Testing is performed in the [facility] laboratory located at [address] [place] [address]. SARS-CoV-2/Flu/RSV Multiplex Test: Fact sheet for providers: https://www.fda.gov/media/318680/download Fact sheet for patients: https://www.fda.gov/media/677874/download Performed By: #### C OINP #### [place] [address] PT/INRon 11-15-2022 PT Coag (PPP) [Time] 14.2 s High 9.8 - 13.4 [facility] Comment on above: Performed By: #### P TINR #### [place] [address] PT, INR 1.2 High 0.9 - 1.1 [facility] Comment on above: Performed By: #### P TINR #### [place] [address] Provider Note - ED v3on 10-28 Provider [...] limitation. No acute ST elevation is identified. CT interval is 171 and QTc is 460. [...] 13.9 Anion (more content not included)... [facility] RED CELL MORPHOLOGYon 2021 RBC morphology finding Nom (Bld) SEE COMMENT [facility] Comment on above: Result Comment: NO S IGNIFICANT RBC ABNORMALITIES SEEN ON SMEAR REVIEW. Performed By: #### M ORP2 #### [facility] [address] [place] [address] TROPONIN I, HIGH SENSITIVITY on 11-15-2022 TROPONIN I, HIGH SENSITIVITY Canceled [facility] Comment on above: Order Comment: TEST [...] performed using a different testing methodology at [facility] than at other [facility]. Direct result comparisons should only be made within the same method. Performed By: #### C OINP #### [facility] [address] [place] [address] TROPONIN I, HIGH SENSITIVITY 14 ng/L Normal 0 - 20 [facility] Comment on above: Result Comment: . [...] performed using a different testing methodology at [facility] than at other [facility]. Direct result comparisons should only be made within the same method. Performed By: #### T [facility] #### [facility] [address] [place] [address] Triage - EDon 11-15-2022 Triage - ED Quick Triage: The patient and/or guardian verbally acknowledges placement for services into the following (when Urgent Care Service hours are operating):emergency department Chart Review: ARRIVAL INFORMATION Means of Arrival: Ambulatory Mode of Arrival: private vehicle Arrival From: home Accompanied By: self Language: Spoken Language Preferred: Danish Reading Language Preferred: Danish CHIEF COMPLAINT LYNNETTE GONG is a Male [...] 14-Nov-2022 22:36 by Dana Aguirre (RN) Normal [place] UA MICROSCOPICon 11-15-2022 RBC 4 /HPF Normal 0-5 [place] Comment on above: Performed By: #### U AMIC #### [address] [address] WBC 2 /HPF Normal 0-5 [place] Comment on above: Performed By: #### U AMIC #### [address] [address] URINALYSISon 11-15-2022 Appearance (U) Clear Normal CLEAR [place] Comment on above: Performed By: #### C OINP #### [address] [address] Bilirubin Ql (U) Negative Normal NEGATIVE [place] [facility] Comment on above: Performed By: #### C OINP #### [address] [address] Color (U) Yellow Normal STRAW,YELLOW [place] Comment on above: Performed By: #### C OINP #### [address] [address] Glucose Ql (U) Negative Normal NEGATIVE [facility] Comment on above: Performed By: #### C OINP #### [address] [address] Hemoglobin Ql (U) SMALL(1+) Abnormal NEGATIVE [place] [facility] Comment on above: Performed By: #### C OINP #### [address] [address] Ketones Ql (U) 5(Trace) mg/dl Abnormal NEGATIVE [place] [facility] Comment on above: Performed By: #### C OINP #### [address] [address] Leukocyte esterase Test strip Ql (U) Negative Normal NEGATIVE [facility] Comment on above: Performed By: #### C OINP #### [address] [address] Nitrite Ql (U) Negative Normal NEGATIVE [facility] Comment on above: Performed By: #### C OINP #### [address] [address] pH (U) 6.0 [pH] Normal 5.0 - 8.0 [facility] Comment on above: Performed By: #### C OINP #### [address] [address] Protein Ql (U) 100(2+) Abnormal NEGATIVE [place] Comment on above: Performed By: #### C OINP #### [address] [address] Specific gravity (U) [Rel density] 1.021 Normal 1.005 - 1.035 [place] Comment on above: Performed By: #### C OINP #### [address] [address] Urobilinogen (U) [Mass/Vol] 4.0 mg/dL High 0.0 - 1.9 [facility] Comment on above: Result Comment: SOME PIGMENTS AND MEDICATIONS MAY CAUSE A FALSE POSITIVE UROBILINOGEN Performed By: #### C OINP #### [address] [address] VENOUS FULL PANELon 12-20-20 22 Anion gap [Moles/Vol] 12 mmol/L Normal 10 - 25 [facility] ins[facility] Comment on above: Performed By: #### V FPA4 #### [address] [address] BASE EXCESS-BLOOD 3.2 mmol/L High -2.0 - 3.0 [facility] Comment on above: Performed By: #### V FPA4 #### [place] [address] BICARB, CALCULATED 28.5 mmol/L High 22.0 - 26.0 [facility] Comment on above: Performed By: #### V FPA4 #### [place] [address] CALCIUM,IONIZED 1.13 mmol/L Normal 1.10 - 1.33 [facility] Comment on above: Performed By: #### V FPA4 #### [address] [address] Chloride [Moles/Vol] 94 mmol/L Low 98 - 107 [facility] Comment on above: Performed By: #### V FPA4 #### [address] [address] Glucose [Mass/Vol] 128 mg/dL High 74 - 99 [facility] Comment on above: Performed By: #### V FPA4 #### [address] [address] Hematocrit (Bld) [Volume fraction] 42.0 % Normal 41.0 - 52.0 [facility] Comment on above: Performed By: #### V FPA4 #### [address] [address] Hemoglobin (Bld) [Mass/Vol] 13.9 g/dL Normal 13.5 - 17.5 [facility] Comment on above: Performed By: #### V FPA4 #### [address] [address] Lactate [Moles/Vol] 1.1 mmol/L Normal 0.4 - 2.0 [facility] Comment on above: Performed By: #### V FPA4 #### [address] [address] OXY HGB 51.7 % Normal 45.0 - 75.0 [facility] Comment on above: Performed By: #### V FPA4 #### [address] [address] Oxygen (Bld) [Partial pressure] 31 mm[Hg] Low 35 - 45 [facility] Comment on above: Performed By: #### V FPA4 #### [address] [address] PATIENT TEMPERATURE 37.0 degrees C Normal R [facility] Comment on above: Result Comment: NOTE : PATIENT RESULTS ARE NOT CORRECTED FOR TEMPERATURE. Performed By: #### V FPA4 #### [address] [address] PCO2 45 mmHg Normal 41 - 51 [facility] Comment on above: Performed By: #### V FPA4 #### [address] [address] pH (Bld) 7.41 [pH] Normal 7.33 - 7.43 [facility] Comment on above: Performed By: #### V FPA4 #### [address] [address] Potassium [Moles/Vol] 3.2 mmol/L Low 3.5 - 5.3 [facility] Comment on above: Performed By: #### V FPA4 #### [address] [address] SO2 53 % Normal 45 - 75 [facility] Comment on above: Performed By: #### V FPA4 #### [address] [address] Sodium [Moles/Vol] 131 mmol/L Low 136 - 145 [place] [facility] Comment on above: Performed By: #### V FPA4 #### [address] [address] Vital Signs Date Time Vital Sign Value Performing Clinician Adrianne block 02-04-2024 17:39-0400 Body height 175.26 cm [facility] 02-04-2024 17:39-0400 Body mass index (BMI) [Ratio] 44.4 kg/m2 [facility] 02-04-2024 17:39-0400 Body temperature 96.3 [degF] [facility] 02-04-2024 17:39-0400 Body weight 136.57 kg [facility] 02-04-2024 17:39-0400 Diastolic blood pressure 90 mm[Hg] [facility] 02-04-2024 17:39-0400 Heart rate 100 /min [facility] 02-04-2024 17:39-0400 Respiratory rate 22 /min [facility] 02-04-2024 17:39-0400 SaO2% (BldA) [Mass fraction] 100 % [facility] 02-04-2024 17:39-0400 Systolic blood pressure 149 mm[Hg] [facility] 09-20-2022 12:45-0400 Body height 177.8 cm [facility] Work Phone: 09-20-2022 12:45-0400 Body mass index (BMI) [Ratio] 44.4 kg/m2 [facility] Work Phone: 09-20-2022 12:45-0400 Body temperature 97.7 [degF] [facility] Work Phone: 09-20-2022 12:45-0400 Body weight 140.61 kg [facility] Work Phone: 09-20-2022 12:45-0400 Diastolic blood pressure 80 mm[Hg] [facility] Work Phone: 09-20-2022 12:45-0400 Heart rate 98 /min [facility] Work Phone: 09-20-2022 12:45-0400 Respiratory rate 18 /min [facility] Work Phone: 09-20-2022 12:45-0400 SaO2% (BldA) [Mass fraction] 96 % [facility] Work Phone: 09-20-2022 12:45-0400 Systolic blood pressure 160 mm[Hg] [facility] Work Phone: Encounters Encounter Date Encounter Type Care Provider Facility Start: 02-04-2024 End: 02-04-2024 Emergency department patient visit [facility] Department Work Phone: Start: 11-15-2022 End: 11-15-2022 Emergency department patient visit Dr. OSIRIS BARRETT Facility:[id number] Start: 09-20-2022 End: 09-20-2022 Emergency department patient visit [facility] Start: 03-09-2022 ambulatory Tony Altman Facility:[id number] Plan of Treatment Date Care Activity Detail Author Start: 09-20-2022 Electrocardiographic procedure [facility] Work Phone: Patient Education ED Chest Pain, Uncertain Cause [facility] Work Phone: Patient referral [facility] Work Phone: Payers Date Payer Category Payer Medicare [id number] 241 [id number] 2024 Self-pay [id number] 1970 Unknown [id number] 1970 Unknown [id number] Medicaid MEDICAID [id number] Unknown [id number] Unknown [id number] Social History Date Type Detail Facility Start: 09-20-2022 End: 02-04-2024 Tobacco smoking status NHIS Unknown if ever smoked [facility] Start: 1970 Sex Assigned At Male [facility] Mental Status Date Assessment Result Facility 02-04-2024 Cognitive function Level Of Cons ciousness Awake;Alert [facility] Work Phone: Clinical Note 11-16-2022 Note Date [...] Post-Discharge Culture Follow Up Team, please contact [phone]. . Aspen Chapa PharmD PGY1 Resident [facility] Electronic Signatures: Aspen Chapa (PHARM STUD) (Signed 16-Nov-2022 15:13) Authored: Education Deborah Ramirez (PharmD) (Signed 17-Nov-2022 08:30) Co-Signer: Education Last Updated: 17-Nov-2022 08:30 by Deborah Ramirez (PharmD) [facility] Evaluation note Note Date & Type Note Facility Evaluation note No assessment information availa ble [facility] Work Phone: Hospital Discharge instructions Note Date & Type Note Facility Hospital Discharge instructions Additional Instructions Please return if you lose consciousness, if you develop chest pain, if you have shortness of breath we have difficulty with exertion. Please follow-up with the family practice physician Dr. Dias. Please get an outpatient stress test for further evaluation of possible heart issues. [facility] Work Phone: Chief Complaint and Reason for Visit Chief Complaint UPPER EXTREMITY Chief Complaint unknown substance in gestion Advance Directives No Advanced Directives Records Found Advance Directive Response Recorded Date/ Time Living Will No September 20 2:16pm Power of Fruit Rancher No September 20, 2022 2:16pm Summary Purpose [...] section and content) DATE CREATED AUTHOR 11/18/2022 [facility] DATE CREATED AUTHOR AUTHOR'S LUZ GUERRA 05/01/2025 [facility] Care Teams (unrecognized sec tion and content) [...] BE BASED ON THE PRIMARY CLINICAL RECORDS. [employer] provides no warranty or guarantee of the accuracy or completeness of information in this document.
[2025-05-03 19:14] LABS: Osmolality, Serum 253 mOsm/KG (275-295)
[2025-05-03 19:20] VITALS: BMI 48.2
[2025-05-03 19:22] LABS: CORTISOL PM 7.33 ug/dL (2.68-10.50); Uric Acid 3.1 mg/dL (3.5-7.2)
[2025-05-03 19:29] LABS: Anion Gap 12 (5-15); BUN 6 mg/dL (4-19); BUN/Creat Ratio 7.6 RATIO (10-20); Calcium,Total 9.1 mg/dL (7.6-11.0); Carbon Dioxide 22.2 mmol/L (21.0-32.0); Chloride 85 mmol/L (98-108); Creatinine, Serum 0.75 mg/dL (0.70-1.20); EST Glomerular Filtration Rate 107 (>60); Estimated Creatinine Clearance 160.33 ml/min (50-250); Glucose 104 mg/dL (70-99); Potassium 4.5 mmol/L (3.3-5.1); Sodium Level 119 mmol/L (133-145)
[2025-05-03] MEDS: Losartan Potassium 50 MG Tablet PO (19:48)
[2025-05-03 20:10] VITALS: BP 153/77; PULSE 82; RESP 18; TEMP 36.1; O2SAT 98
[2025-05-03 21:20] LABS: Troponin T High Sens 4 HR 9 ng/L (<=22)
[2025-05-03 21:59] VITALS: O2SAT 99
[2025-05-03 23:44] LABS: Bacteria 0 SEEN /hpf (None Seen); Mucous, Urine 0 SEEN /hpf (<or=2+); Red Blood Cells-Urine 0 SEEN /hpf (0-5); Squamous Epithelial Cells - UA 0 SEEN /hpf (0-5); White Blood Cells 0 SEEN /hpf (0-5)
[2025-05-03 23:51] LABS: Color, Urine Yellow (Yellow); Glucose, Dipstick Normal (Normal); Ketone-Dipstick Negative (Negative); Leukocyte Esterase-Dipstick Negative /ul (Negative); Nitrite-Dipstick Negative (Negative); Occult Blood-Urine 25 /ul (Negative); Protein-Dipstick 15 mg/dl (Negative); Urine Bilirubin Dipstick Negative (Negative); Urine Clarity Clear (Clear); Urine Urobilinogen Normal (Normal)
[2025-05-04] VITALS (7 sets, daily range): BP systolic 123–158; BP diastolic 81–106; PULSE 65–79; RESP 18–20; TEMP 36.1–36.7; O2SAT 96–100; BMI 48.2
[2025-05-04 01:11] LABS: Osmolality, Urine 181 mOsm/KG
[2025-05-04 01:58] LABS: Anion Gap 12 (5-15); BUN 7 mg/dL (4-19); BUN/Creat Ratio 9.3 RATIO (10-20); Calcium,Total 8.7 mg/dL (7.6-11.0); Carbon Dioxide 21.4 mmol/L (21.0-32.0); Chloride 88 mmol/L (98-108); Creatinine, Serum 0.71 mg/dL (0.70-1.20); EST Glomerular Filtration Rate 108 (>60); Estimated Creatinine Clearance 169.17 ml/min (50-250); Glucose 98 mg/dL (70-99); Potassium 3.8 mmol/L (3.3-5.1); Sodium Level 121 mmol/L (133-145)
[2025-05-04 02:45] LABS: Urine Sodium 33 mmol/L (Not Establ.)
[2025-05-04 02:56] LABS: Amphetamine Urine NEGATIVE (<1000 ng/mL); Barbiturate Urine NEGATIVE (< 200 ng/mL); Benzodiazepine Urine NEGATIVE (< 200 ng/mL); Buprenorphine Urine NEGATIVE (< 200 ng/mL); Cocaine Urine NEGATIVE (< 300 ng/mL); Fentanyl, Urine NEGATIVE; Methadone Urine NEGATIVE (< 300 ng/mL); Opiates Urine NEGATIVE (< 300 ng/mL); Oxycodone, Urine NEGATIVE (< 100 ng/mL); PCP Urine NEGATIVE (< 25 ng/mL); THC Urine NEGATIVE (< 50 ng/mL)
[2025-05-04] MEDS: 0.9% Normal Saline (1000mL) 1,000 ML 100 ML IV ×2 (03:13→16:05)
[2025-05-04 05:01] LABS: Absolute Lymphocyte Count 2.08 X10^3/uL (0.83-4.51); Basophil# 0.06 X10^3/uL; Basophil% 0.7 % (0-1); Eosinophil# 0.02 X10^3/uL; Eosinophils% 0.2 % (0-5); Hematocrit 37.9 % (40-54); Lymphocyte # 2.08 X10^3/ul (0.83-4.51); Lymphocyte % 22.7 % (19-41); Mean Corp Hgb Conc 36.9 g/dL (32-36); Mean Corpuscular Volume 81.3 fL (80-94); Mean Platelet Vol. 9.1 fl (6.2-12.0); Monocyte# 0.94 X10^3/uL; Monocyte% 10.3 % (0-10); NRBC Flagged by Analyzer 0 % (0-5); Neutrophil # 5.98 X10^3/uL (2.7-7.7); Neutrophil % 65.3 % (47-70); Platelet Count 252 K/mm3 (150-450); RBC Distribution Width CV 12.6 % (11.6-14.6); RBC Distribution Width SD 37.4 fl (35.1-43.9); Red Blood Count 4.66 M/mm3 (4.6-6.2); White Blood Count 9.2 K/mm3 (4.4-11.0)
[2025-05-04 05:26] LABS: ALB/GLOB Ratio 1.6 RATIO (0.9-2.4); AST(SGOT) 20 U/L (<=37); Alanine Aminotransfer ALT/SGPT 12 U/L (<=46); Albumin, Serum 3.9 g/dL (3.5-5.0); Alkaline Phosphatase 56 U/L (40-129); Anion Gap 11 (5-15); BUN 6 mg/dL (4-19); BUN/Creat Ratio 9.3 RATIO (10-20); Calcium,Total 8.7 mg/dL (7.6-11.0); Chloride 89 mmol/L (98-108); Creatinine, Serum 0.62 mg/dL (0.70-1.20); EST Glomerular Filtration Rate 113 (>60); Estimated Creatinine Clearance 193.73 ml/min (50-250); Globulin 2.4 g/dL (2.2-4.2); Glucose 101 mg/dL (70-99); Magnesium 1.9 mg/dL (1.5-2.2); Potassium 3.8 mmol/L (3.3-5.1); Protein, Total 6.3 g/dL (5.9-8.4); Sodium Level 123 mmol/L (133-145); Total Bilirubin 0.56 mg/dL (0.00-1.30)
[2025-05-04 05:47] LABS: Phosphorus 3.9 mg/dL (2.7-4.5)
[2025-05-04] MEDS: Losartan Potassium 100 MG Tablet PO (08:20)
--- NOTE | 2025-05-04 09:11 | PCM.PN.HOSP ---
Reason for Visit Reason for Visit: Diagnoses Hypo-osmolality and hyponatremia (05/03/25) Hypertensive urgency (05/03/25) Hyperglycemia, unspecified (05/03/25) Subjective Subjective Feeling better. Takes losartan at home. he does not think it is with HCTZ. Objective Data Objective Data Vital Signs: Vital Signs Temp Pulse Resp BP Pulse Ox O2 Del Method 36.3 C L 65 18 158/94 H 100 Room Air 05/04/25 08:00 05/04/25 08:00 05/04/25 08:00 05/04/25 08:00 05/04/25 08:00 05/04/25 08:00 Oxygen Delivery Method Room Air Weight: 148.3 kg Body Mass Index (BMI) 48.2 Intake & Output: Intake and Output for Last 24 Hours 05/02/25 05/03/25 05/04/25 23:59 23:59 23:59 Intake Total 276.67 / 276.67 741.67 / 741.67 Balance 276.67 / 276.67 741.67 / 741.67 Lab / Micro Data 05/04/25 04:35 05/04/25 11:48 Labs: Laboratory Results - last 24 hr 05/03/25 15:52: WBC 11.6 H, RBC 5.06, Hgb 14.8, Hct 41.1, MCV 81.2, MCH 29.2, MCHC 36.0, RDW Std Deviation 37.1, RDW Coeff of Senia 12.6, Plt Count 313, MPV 9.0, Immature Gran % (Auto) 0.600, Neut % (Auto) 76.5 H, Lymph % (Auto) 15.6 L, Kimble % (Auto) 6.7, Eos % (Auto) 0.1, Baso % (Auto) 0.5, Absolute Neuts (auto) 8.9 H, Absolute Lymphs (auto) 1.81, Nucleated RBC % 0, Sodium 119 L*, Potassium 4.5, Chloride 84 L, Carbon Dioxide 21.4, Anion Gap 13, BUN 5, Creatinine 0.74, Estim Creat Clear Calc 162.50, Est GFR (MDRD) Non-Af 107, BUN/Creatinine Ratio 6.9 L, Glucose 113 H, Hemoglobin A1c 6.0 H, Calcium 9.1, Troponin T High Sens 9, TSH 1.050, Free T4 1.30, Free T3 pg/dL 2.8 05/03/25 17:00: Sodium 119 L*, Potassium 4.5, Chloride 85 L, Carbon Dioxide 22.2, Anion Gap 12, BUN 6, Creatinine 0.75, Estim Creat Clear Calc 160.33, Est GFR (MDRD) Non-Af 107, BUN/Creatinine Ratio 7.6 L, Glucose 104 H, Serum Osmolality 253 L, Uric Acid 3.1 L, Calcium 9.1, TSH 0.950, Cortisol PM Sample 7.33 05/03/25 18:15: Troponin T Hi Sens 2 Hr 9 05/03/25 20:46: Troponin T Hi Sens 4Hr 9 05/03/25 23:30: Urine Color Yellow, Urine Clarity Clear, Urine pH 7.0, Ur Specific [place] 1.010, Urine Protein 15 H, Urine Glucose (UA) Normal, Urine Ketones Negative, Urine Occult Blood 25 H, Urine Nitrite Negative, Urine Bilirubin Negative, Urine Urobilinogen Normal, Ur Leukocyte Esterase Negative, Urine RBC 0 SEEN, Urine WBC 0 SEEN, Ur Squamous Epith Cells 0 SEEN, Urine Bacteria 0 SEEN, Urine Mucus 0 SEEN, Urine Osmolality 181, Ur Random Sodium 33, Urine Opiates Screen NEGATIVE, U Buprenorphine Qual NEGATIVE, Ur Oxycodone Screen NEGATIVE, Urine Methadone Screen NEGATIVE, Urine Fentanyl Screen NEGATIVE, Ur Barbiturates Screen NEGATIVE, Ur Phencyclidine Scrn NEGATIVE, Ur Amphetamines Screen NEGATIVE, U Benzodiazepines Scrn NEGATIVE, Urine Cocaine Screen NEGATIVE, U Cannabinoids Screen NEGATIVE 05/04/25 00:38: Sodium 121 L, Potassium 3.8, Chloride 88 L, Carbon Dioxide 21.4, Anion Gap 12, BUN 7, Creatinine 0.71, Estim Creat Clear Calc 169.17, Est GFR (MDRD) Non-Af 108, BUN/Creatinine Ratio 9.3 L, Glucose 98, Calcium 8.7 05/04/25 04:35: WBC 9.2, RBC 4.66, Hgb 14.0, Hct 37.9 L, MCV 81.3, MCH 30.0, MCHC 36.9 H, RDW Std Deviation 37.4, RDW Coeff of Senia 12.6, Plt Count 252, MPV 9.1, Immature Gran % (Auto) 0.800, Neut % (Auto) 65.3, Lymph % (Auto) 22.7, Kimble % (Auto) 10.3 H, Eos % (Auto) 0.2, Baso % (Auto) 0.7, Absolute Neuts (auto) 6.0, Absolute Lymphs (auto) 2.08, Nucleated RBC % 0, Sodium 123 L, Potassium 3.8, Chloride 89 L, Carbon Dioxide 22.0, Anion Gap 11, BUN 6, Creatinine 0.62 L, Estim Creat Clear Calc 193.73, Est GFR (MDRD) Non-Af 113, BUN/Creatinine Ratio 9.3 L, Glucose 101 H, Calcium 8.7, Phosphorus 3.9, Magnesium 1.9, Total Bilirubin 0.56, AST 20, ALT 12, Alkaline Phosphatase 56, Total Protein 6.3, Albumin 3.9, Globulin 2.4, Albumin/Globulin Ratio 1.6 Radiography Diagnostic Testing: Radiology Impression Chest X-Ray 05/03/25 16:00 IMPRESSION: NO ACUTE FINDINGS. Reading Location: [facility] Physical Exam Const alert and no apparent distress HEENT head/scalp atraumatic and moist oral mucous membranes Resp normal respiratory effort, no retractions, no use of accessory muscles and clear to auscultation bilaterally Cardio regular rate, regular rhythm, S1 normal heart sound and S2 normal heart sound GI normal to inspection, nondistended, normoactive bowel sounds, soft to palpation, non-tender and non-distended Extremity normal to inspection and full ROM Neuro Sensorium / Orientation: awake and alert Assessment & Plan Assessment/Plan (1) Hypertensive urgency: PLAN: improved on losartan 100/d (2) Acute hyponatremia: PLAN: Improved with IVF, but still low. Continue w IVF. Check urine osm and serum osm TSH and cortisol WNL. PLAN: Plan Suspected GARRY: outpt pulm follow up for PSG Obesity class II: complicates care and recovery VTE prophylaxis: LMWH. Disposition: sodium still too low for discharge. Will continue IV and recheck labs in AM. Charges/Coding Visit Charges Inpatient E&M: 45607 Subs Hosp L2
[2025-05-04] MEDS: Acetaminophen 325 MG Tablet 650 MG PO (10:37)
[2025-05-04 12:14] LABS: Anion Gap 11 (5-15); BUN 7 mg/dL (4-19); BUN/Creat Ratio 11.4 RATIO (10-20); Calcium,Total 8.8 mg/dL (7.6-11.0); Chloride 90 mmol/L (98-108); Creatinine, Serum 0.64 mg/dL (0.70-1.20); EST Glomerular Filtration Rate 112 (>60); Estimated Creatinine Clearance 187.67 ml/min (50-250); Glucose 114 mg/dL (70-99); Potassium 4.4 mmol/L (3.3-5.1); Sodium Level 121 mmol/L (133-145)
--- NOTE | 2025-05-04 14:49 | NURSING ---
IV INITIALLY SL D/T IVAC MALFUNCTION AND PT POSSIBLY BEING DC'D, NA+ RECHECKED AND ACTUALLY DROPPED FROM YESTERDAY SO PT WILL BE PLACED BACK ON FLUIDS. PT WOULD LIKE TO SHOWER FIRST.
[2025-05-04] MEDS: 0.9% Saline Lock 10 ML Syringe IV (16:04)
[2025-05-05] MEDS: 0.9% Normal Saline (1000mL) 1,000 ML 100 ML IV (00:41)
[2025-05-05 03:46] VITALS: BMI 47.7
[2025-05-05 05:00] VITALS: BP 140/88; PULSE 63; RESP 18; TEMP 37; O2SAT 99
[2025-05-05 06:36] LABS: Anion Gap 10 (5-15); BUN 6 mg/dL (4-19); BUN/Creat Ratio 7.9 RATIO (10-20); Calcium,Total 8.7 mg/dL (7.6-11.0); Carbon Dioxide 23.7 mmol/L (21.0-32.0); Chloride 93 mmol/L (98-108); Creatinine, Serum 0.73 mg/dL (0.70-1.20); EST Glomerular Filtration Rate 107 (>60); Estimated Creatinine Clearance 163.37 ml/min (50-250); Glucose 105 mg/dL (70-99); Potassium 4.1 mmol/L (3.3-5.1); Sodium Level 127 mmol/L (133-145)
[2025-05-05 07:00] VITALS: PULSE 68
[2025-05-05 08:45] VITALS: BP 149/88; PULSE 64; RESP 20; TEMP 36.5; O2SAT 100
[2025-05-05] MEDS: Losartan Potassium 100 MG Tablet PO (09:00)
--- NOTE | 2025-05-05 10:04 | PCM.DC.SUM ---
Providers Date of Admission: 05/03/25 Primary Care Physician: UMAIR Taveras Reason For Visit: HYPONATREMIA/HTN URGENCY Diagnosis Discharge Diagnosis (1) Hypertensive urgency: Status: Acute Code(s): I16.0 - Hypertensive urgency Plan: improved on losartan 100/d (2) Acute hyponatremia: Status: Acute Code(s): E87.1 - Hypo-osmolality and hyponatremia Plan: Improved TSH and cortisol WNL. Possible SIADH. Recommend outpatient follow up of sodium and fluid restriction of 1.5 liters. Plan Suspected GARRY: outpt pulm follow up for PSG Obesity class II: complicates care and recovery VTE prophylaxis: LMWH. Disposition: sodium still too low for discharge. Medications at Discharge Home Medications losartan 25 mg tablet 25 mg PO DAILY 05/03/25 Weight / BMI Weight Weight: 146.5 kg Body Mass Index (BMI) 47.7 ABG / Lab / Microbiology Data 05/04/25 04:35 05/05/25 05:23 Laboratory: Laboratory Results - last 24 hr 05/04/25 11:48: Sodium 121 L, Potassium 4.4, Chloride 90 L, Carbon Dioxide 20.0 L, Anion Gap 11, BUN 7, Creatinine 0.64 L, Estim Creat Clear Calc 187.67, Est GFR (MDRD) Non-Af 112, BUN/Creatinine Ratio 11.4, Glucose 114 H, Calcium 8.8 05/05/25 05:23: Sodium 127 L, Potassium 4.1, Chloride 93 L, Carbon Dioxide 23.7, Anion Gap 10, BUN 6, Creatinine 0.73, Estim Creat Clear Calc 163.37, Est GFR (MDRD) Non-Af 107, BUN/Creatinine Ratio 7.9 L, Glucose 105 H, Calcium 8.7 D/C Instructions DC O2, CPAP, BIPAP Needs Home O2 Discharge instructions: No Meaningful Use Info Meaningful Use Meaningful Use Diagnoses (Choose all that apply): None applicable Ischemic Stroke Statin Dosing Therapy Reference: STATIN DOSE THERAPY REFERENCE: * Patients > 75 years receive moderate or high dose statin therapy. * Patients 75 years or YOUNGER should receive HIGH intensity statin dose unless contraindicated. You will be required to document reason for non-treatment if statin daily dose does not meet guidelines. HIGH DOSE STATIN THERAPY DAILY Atorvastatin > than or = to 40 mg Rosuvastatin > than or = to 20 mg Amlodipine + Atorvastatin > than or = to 2.5/40 mg Ezetimibe + Simvastatin 10/80 mg Simvastatin 80mg Discharge Plan Admission Admit Date/Time: 05/03/25 18:03 Attending Provider: Kevin Singh Primary Care Provider: Deborah Roa Consulting Providers: Meseret Minor Discharge Orders/Prescriptions Prescriptions: No Action losartan 25 mg tablet 25 mg PO DAILY Referrals / Follow Up: Care Physician,No Primary [Non-Staff] - Deborah Roa, [employer] [Primary Care Provider] -
[2025-05-05 10:19] VITALS: O2SAT 99
--- NOTE | 2025-05-05 10:24 | NURSING ---
Pt was told by Dr Singh that he would be discharging today. Pt requested that heart monitor and IV fluids be disconnected.
--- NOTE | 2025-05-05 10:34 | CASEMGMT ---
ADOLFO RODAS Assessment: Face to Face with pt for initial transition planning/care coordination assessment. ADOLFO RODAS introduced self and role at [facility], pt voices understanding and consents to assessment. Pt is A&O x4 and answers all questions appropriately at this time. Pt standing up in room in no distress. Care providers, pharmacy, and demographics verified/updated. Strata: 1 Admitting Dx: Hyponatremia/HTN Urgency PCP: Crispin Specialists: None Preferred Pharmacy: [facility] Insurance: [facility] A&B Prescription Benefit: yes LNOK: Friend, Willard Living Arrangements: Pt lives alone in a one level with 4 steps to enter. ADLs: Pt states I with ADLs and IADLs. Transportation: Pt drives self and denies concerns with transportation. DME: [facility] HHC/SNF: Denies Hx of Pt states no concerns with going home at time of dc. Pt states no further concerns/needs. CM to follow. Advised pt to ask CM if any further question/concerns/needs arise, voices understanding. Pt Goal: Home Plan: Home, follow up with PCP. Anjana MATA CM
[2025-05-05 11:40] VITALS: BP 140/106; PULSE 71; RESP 18; O2SAT 96
== END 2025-05-05 11:55 | disposition home or self-care (01) | DRG 641 ==
LOC: ED 18:22 → PCU 18:57
PROVIDERS: Admitting Provider Internal Medicine; Emergency Provider Emergency Medicine; PCP Nurse Practitioner Family
DX: E87.1 Hypo-osmolality and hyponatremia (principal); Z68.42 Body mass index [BMI] 45.0-49.9, adult; E88.819 Insulin resistance, unspecified; I16.0 Hypertensive urgency; E66.01 Morbid (severe) obesity due to excess calories; I10 Essential (primary) hypertension; G47.33 Obstructive sleep apnea (adult) (pediatric); F17.210 Nicotine dependence, cigarettes, uncomplicated; E66.812 Obesity, class 2; Z79.899 Other long term (current) drug therapy
CPT/HCPCS: 36415; 71046; 80048; 80053; 80307; 81001; 82533; 83036; 83735; 83930; 83935; 84100; 84300; 84439; 84443; 84481; 84484; 84550; 85025; 93005; 99284; A4216

== ENCOUNTER → 2025-05-20 | Outpatient (CLI) | payer MEDICARE, SELFPAY ==
[2025-05-20 16:24] LABS: Anion Gap 11 (5-15); BUN 5 mg/dL (4-19); BUN/Creat Ratio 6.7 RATIO (10-20); Calcium,Total 8.9 mg/dL (7.6-11.0); Carbon Dioxide 23.2 mmol/L (21.0-32.0); Chloride 83 mmol/L (98-108); Creatinine, Serum 0.69 mg/dL (0.70-1.20); EST Glomerular Filtration Rate 109 (>60); Glucose 105 mg/dL (70-99); Potassium 4.3 mmol/L (3.3-5.1); Sodium Level 118 mmol/L (133-145)
== END | disposition home or self-care (01) ==
LOC: BFHLAB 13:06
PROVIDERS: PCP Nurse Practitioner Family; Visit Provider Nurse Practitioner Family
DX: E87.1 Hypo-osmolality and hyponatremia (principal)
CPT/HCPCS: 36415; 80048

== ENCOUNTER → 2025-05-29 | Outpatient (CLI) | payer MEDICARE, SELFPAY ==
[2025-05-29 16:05] LABS: Anion Gap 10 (5-15); BUN 12 mg/dL (4-19); BUN/Creat Ratio 15.7 RATIO (10-20); Calcium,Total 9.1 mg/dL (7.6-11.0); Carbon Dioxide 23.5 mmol/L (21.0-32.0); Chloride 90 mmol/L (98-108); Glucose 99 mg/dL (70-99); Potassium 4.6 mmol/L (3.3-5.1)
== END | disposition home or self-care (01) ==
LOC: BFHLAB 13:31
PROVIDERS: PCP Nurse Practitioner Family; Visit Provider Nurse Practitioner Family
DX: E87.1 Hypo-osmolality and hyponatremia (principal)
CPT/HCPCS: 36415; 80048

== ENCOUNTER → 2025-06-10 | Outpatient (CLI) | payer MEDICARE, SELFPAY ==
--- NOTE | 2025-06-10 13:30 | CT_ITS ---
PROCEDURE: LOW DOSE CT LUNG SCREENING 06/10/2025 REASON FOR EXAM: LUNG CANCER SCREENING Patient has smoked 1-1/2-2 packs per day for 37 years. TECHNIQUE: Coronal and Sagittal reconstruction series were provided. One or more dose reduction techniques were used (e.g., Automated exposure control, adjustment of the mA and/or kV according to patient size, use of iterative reconstruction technique). REFERENCE LINK: [employer] Lung-RADS RADIATION DOSE SUMMARY: CTDlvol: 3.18 mGy DLP: 104.43 mGycm COMPARISON: Prior chest radiograph dated May 03, 2025. FINDINGS: PULMONARY NODULES: (Only nodules >3mm are reported) Nodules described below are on series 1 unless otherwise specified. Pulmonary Nodules: No pulmonary nodules seen. Hardware:None Lymph Nodes:None Heart and Vasculature:The heart is nonenlarged. Coronary Artery Calcifications: Absent Lungs and Airways: Mild emphysematous changes are present. Pleura:No evidence of pleural effusion Upper Abdomen:Unremarkable Bones:Degenerative changes of the thoracic spine. CT/Low Dose CT Lung Screening IMPRESSION: No suspicious pulmonary nodule is seen. Coronary artery calcification (CAC) is is absent Lung-RADS Category: 2 BENIGN (BASED ON IMAGING FEATURES OR INDOLENT BEHAVIOR). RECOMMEND 12-MONTH SCREENING LDCT. Other Significant Findings: Reading Location: [facility]
--- NOTE | 2025-06-10 13:30 | CT_ITS ---
PROCEDURE: LOW DOSE CT LUNG SCREENING 06/10/2025 REASON FOR EXAM: LUNG CANCER SCREENING Patient has smoked 1-1/2-2 packs per day for 37 years. TECHNIQUE: Coronal and Sagittal reconstruction series were provided. One or more dose reduction techniques were used (e.g., Automated exposure control, adjustment of the mA and/or kV according to patient size, use of iterative reconstruction technique). REFERENCE LINK: [employer] Lung-RADS RADIATION DOSE SUMMARY: CTDlvol: 3.18 mGy DLP: 104.43 mGycm COMPARISON: Prior chest radiograph dated May 03, 2025. FINDINGS: PULMONARY NODULES: (Only nodules >3mm are reported) Nodules described below are on series 1 unless otherwise specified. Pulmonary Nodules: No pulmonary nodules seen. Hardware:None Lymph Nodes:None Heart and Vasculature:The heart is nonenlarged. Coronary Artery Calcifications: Absent Lungs and Airways: Mild emphysematous changes are present. Pleura:No evidence of pleural effusion Upper Abdomen:Unremarkable Bones:Degenerative changes of the thoracic spine. CT/Low Dose CT Lung Screening IMPRESSION: No suspicious pulmonary nodule is seen. Coronary artery calcification (CAC) is is absent Lung-RADS Category: 2 BENIGN (BASED ON IMAGING FEATURES OR INDOLENT BEHAVIOR). RECOMMEND 12-MONTH SCREENING LDCT. Other Significant Findings: Reading Location: [facility]
--- OUTSIDE RECORDS SUMMARY | 2025-06-10 21:42 | XMS RPT_ITS | CCD ---
Author Organization [facility] Care Team Providers Care Manager Nuclear Name Role Phone Dr. OSIRIS BARRETT Attending Un available Tony Altman Attending Unavaila ble PCP, Pt States None Referring Unavailable Dr. Allan Jc DO Emergency Provider Crispin METAL MODEL BUILDER-C, Deborah Primary Care Provider Dr. Meseret Minor DO Admit Provider Dr. Meseret Minor DO Attending Provider Dr. Meseret Minor DO Other Provider Dr. Meseret Minor DO Other Provider Dr. Kevin Singh DO Attending Provider Dr. Meseret Minor DO Attending Provider Dr. Kevin Singh DO Other Provider Care Physician, No Primary Referring Provider Un available Dr. Betty Steel MD Attending Provider Crispin METAL MODEL BUILDER-C, Deborah Attending Provider [phone] Crispin, Deborah Primary Care Unavailable Meseret Minor Admitting Unavailable Kevin Singh Attending Unavailable Meseret Minor Consulting Unavailable Kevin Singh Consulting Unavailable Meseret Minor Attending Unavailable Crispin, Deborah Primary Care Unavailable Betty Steel Attending Unavailable Care Physician, No Primary Referring Unava ilable Crispin, Deborah Attending Unavailable Crispin, Deborah Referring Unavailable Crispin, Deborah Primary Care Unavailable Jorgito METAL MODEL BUILDER, Anay Attending Unavailable Jorgito METAL MODEL BUILDER, Anay Referring Unavailable Crispin, Deborah Primary Care Unavailable Crispin, Deborah Attending Unavailable Crispin, Deborah Primary Care Unavailable Crispin, Deborah Attending Unavailable Crispin, Deborah Primary Care Unavailable Meseret Minor Consulting Unavailable Kevin Singh Attending Unavailable Meseret Minor Admitting Unavailable Deborah Roa Primary Care Unavailable Betty Steel Attending Unavailable CrispinCecilioDeborah Primary Care Unavailable Crispin METAL MODEL BUILDERJuan CarlosCDeborah Referring Provider Jorgito METAL MODEL BUILDERAnay Barragan Attending Provider Medications Current Medications Medication Drug Class(es) Dates Sig (Normalized) Sig (Original) amLODIPine 5 mg oral tablet (4 sources) Dihydropyridine Calcium Channel Gary Start: 05-12-2025 take 1 tablet by mouth once daily Amlodipine 5 mg tablet Active 5 mg PO daily May 12, 2025 12:00am losartan potassium 100 mg oral tablet (11 sources) Angiotensin 2 Receptor Gary Start: 05-05-2025 take 1 tablet by mouth once daily Losartan 100 mg Tablet Active 100 mg PO DAILY 30 0 May 05, 2025 12:00am Start: 05-03-2025 End: 05-05-2025 take 1 tablet by mouth once daily Losartan 25 mg tablet Discontinued 25 mg PO DAILY May 03, 2025 12:00am May 05, 2025 10:08am Problems Problem Classification Problem Date Documented Da te Episodic/Chronic Diabetes mellitus without complication (13 sources) Hyperglycemia; Translations: [Hyperglycemia, unspecified] Onset: 05-05-2025 05-03-2025 Episodic Essential hypertension (6 sources) Hypertensive disorder; Translations: [Essential (primary) hypertension] 05-03-2025 Chronic Fluid and electrolyte disorders (15 sources) Hypokalemia; Translations: [Acute hyponatremia] Onset: 11-15-2022 05-03-2025 Episodic Genitourinary symptoms and ill-defined conditions (2 sources) Unspecified abnormal findings in urine; Translations: [Unspecified abnormal findings in urine] Onset: 11-15-2022 Episodic Hypertension with complications and secondary hypertension (13 sources) Hypertensive urgency ; Translations: [Hypertensive urgency] Onset: 05-05-2025 05-03-2025 Chronic Influenza (2 sources) Influenza due to other identified influenza virus with other respiratory manifestations; Translations: [Influenza due to other identified influenza virus with other manifestations] Onset: 11-15-2022 Episodic Other connective tissue disease (8 sources) Pain in left arm; Translations: [Pain in left arm] 09-28-2022 Episodic Other gastrointestinal disorders (7 sources) Constipation; Translations: [Constipation, unspecified] 05-12-2025 Episodic Other lower respiratory disease (1 source) Dyspnea, unspecified; Translations: [Dyspnea, unspecified] Onset: 11-15-2022 Episodic Other nervous system disorders (1 source) Unspecified disturbances of smell and taste; Translations: [Unspecified disturbances of smell and taste] Onset: 11-15-2022 Episodic Other nutritional; endocrine; and metabolic disorders (1 source) Anorexia; Translations: [Anorexia] Onset: 11-15-2022 Episodic Other screening for suspected conditions (not mental disorders or infectious disease) (6 sources) Patient encounter status; Translations: [Encounter for screening for malignant neoplasm of colon] 05-14-2025 Episodic Residual codes; unclassified (1 source) Obstructive sleep apnea (adult) (pediatric); Translations: [Obstructive sleep apnea (adult) (pediatric)] Onset: 05-20-2025 Chronic Schizophrenia and other psychotic disorders (6 sources) Paranoid disorder; Translations: [Delusional disorders] 02-12-2024 Chronic Screening and history of mental health and substance abuse codes (1 source) Personal history of nicotine dependence; Translations: [Personal history of nicotine dependence] Onset: 06-03-2025 Episodic Substance-related disorders (7 sources) Nicotine dependence, unspecified, uncomplicated; Translations: [Other psychoactive substance abuse, uncomplicated] Onset: 11-15-2022 02-12-2024 Chronic Unclassified (1 source) Contact with and (suspected) exposure to COVID-19; Translations: [Contact with and (suspected) exposure to COVID-19] Onset: 11-15-2022 Unclassified (1 source) Cough, unspecified; Translations: [Cough, unspecified] Onset: 11-15-2022 Results Test Name Value Interpretation Reference Range Facility Anion gap in Serum or Plasma Ordered By: Deborah Roa on 05-29-2025 Anion gap [Moles/Vol] 10 mmol/L 04-10 [facility] BUN/creatinine ratioOrdered By: Deborah Roa on 05-29-2025 Urea nitrogen/Creatinine [Mass ratio] 15.7 mg/mg 09-15 [facility] Basic Metabolic Profile (BMP )on 05-29-2025 BUN/CRE 15.7 RATIO Normal 10-20 [facility] Comment on above: Performed By: #### L 500.4050, L501.5200 #### [facility] [address] [place], [address] Calcium [Mass/Vol] 9.1 mg/dL Normal 7.6-11.0 [facility] Comment on above: Performed By: #### L 500.4050, L501.5200 #### [facility] [address] [place], [address] Chloride [Moles/Vol] 90 mmol/L Low 98-108 [facility] Comment on above: Performed By: #### L 500.4050, L501.5200 #### [facility] [address] [place], [address] CO2 [Moles/Vol] 23.5 mmol/L Normal 21.0-32.0 [facility] Comment on above: Performed By: #### L 500.4050, L501.5200 #### [facility] [address] [place], [address] Creatinine [Mass/Vol] 0.75 mg/dL Normal 0.70-1.20 [facility] Comment on above: Performed By: #### L 500.4050, L501.5200 #### [facility] [address] [place], [address] GAP 10 Normal 5-15 [facility] Comment on above: Performed By: #### L 500.4050, L501.5200 #### [facility] [address] [place], [address] GFR/1.73 sq M.predicted among non-blacks MDRD (S/P/Bld) [Vol rate/Area] 107 mL/min/{1.73_m2} Normal >60 [facility] Comment on above: Result Comment: mL/m in/1.73m2 CKD-EPI Creatinine Equation (2020) Performed By: #### L 500.4050, L501.5200 #### [facility] [address] [place], [address] Glucose [Mass/Vol] 99 mg/dL Normal 70-99 [facility] Comment on above: Performed By: #### L 500.4050, L501.5200 #### [facility] [address] [place], [address] Potassium [Moles/Vol] 4.6 mmol/L Normal 3.3-5.1 [facility] Comment on above: Performed By: #### L 500.4050, L501.5200 #### [facility] [address] [place], [address] Sodium [Moles/Vol] 123 mmol/L Low 133-145 [facility] Comment on above: Performed By: #### L 500.4050, L501.5200 #### [facility] [address] [place], [address] Urea nitrogen [Mass/Vol] 12 mg/dL Normal 4-19 [facility] Comment on above: Performed By: #### L 500.4050, L501.5200 #### [facility] [address] [place], [address] Carbon dioxide, total [Moles /volume] in Central venous bloodOrdered By: Deborah Roa on 05-29-2025 CO2 [Moles/Vol] 23.5 mmol/L 21.0-32.0 [facility] Chloride assayOrdered By: Ra jacoby Roa on 05-29-2025 Chloride [Moles/Vol] 90 mmol/L Low 98-108 [facility] Glomerular filtration rate ( GFR) estimation/1.73 sq m using serum, plasma, or whole bOrdered By: Deborah Roa on 05-29-2025 GFR/1.73 sq M.predicted among non-blacks MDRD (S/P/Bld) [Vol rate/Area] 107 mL/min/{1.73_m2} >60 [facility] Comment on above: mL/min/1.73m2 CKD-EP I Creatinine Equation (2020) Potassium measurement (mass/ volume)Ordered By: Deborah Roa on 05-29-2025 Potassium (Unsp spec) [Mass/Vol] 4.6 mmol/L 3.3-5.1 [facility] Serum creatinine measurement (mass/volume)Ordered By: Deborah Roa on 05-29-2025 Creatinine [Mass/Vol] 0.75 mg/dL 0.70-1.20 [facility] Serum glucose measurement (m ass/volume)Ordered By: Deborah Roa on 05-29-2025 Glucose [Mass/Vol] 99 mg/dL 70-99 [facility] Serum or plasma calcium pepe urement (mass/volume)Ordered By: Deborah Roa on 05-29-2025 Calcium [Mass/Vol] 9.1 mg/dL 7.6-11.0 [facility] Serum or plasma urea nitroge n measurement (mass/volume)Ordered By: Deborah Roa on 05-29-2025 Urea nitrogen [Mass/Vol] 12 mg/dL 4-19 [facility] Sodium levelOrdered By: Gale Roa on 05-29-2025 Sodium [Moles/Vol] 123 mmol/L Low 133-145 [facility] Anion gap in Serum or Plasma Ordered By: Deborah Roa on 05-20-2025 Anion gap [Moles/Vol] 11 mmol/L 5-15 [facility] BUN/creatinine ratioOrdered By: Deborah Roa on 05-20-2025 Urea nitrogen/Creatinine [Mass ratio] 6.7 mg/mg Low 10- [facility] Basic Metabolic Profile (BMP )on 05-20-2025 BUN/CRE 6.7 RATIO Low 09-15 [facility] Comment on above: Performed By: #### L 500.4182 #### [facility] [address] [place], [address] Calcium [Mass/Vol] 8.9 mg/dL Normal 7.6-11.0 [facility] Comment on above: Performed By: #### L 500.2500 #### [facility] [address] [place], [address] Chloride [Moles/Vol] 83 mmol/L Low 98-108 [facility] Comment on above: Performed By: #### L 500.2500 #### [facility] [address] [place], [address] CO2 [Moles/Vol] 23.2 mmol/L Normal 21.0-32.0 [facility] Comment on above: Performed By: #### L 500.2500 #### [facility] [address] [place], [address] Creatinine [Mass/Vol] 0.69 mg/dL Low 0.70-1.20 [facility] Comment on above: Performed By: #### L 500.2500 #### [facility] [address] [place], [address] GAP 11 Normal 5-15 [facility] Comment on above: Performed By: #### L 500.2500 #### [facility] [address] [place], [address] GFR/1.73 sq M.predicted among non-blacks MDRD (S/P/Bld) [Vol rate/Area] 109 mL/min/{1.73_m2} Normal >60 [facility] Comment on above: Result Comment: mL/m in/1.73m2 CKD-EPI Creatinine Equation (2020) Performed By: #### L 500.2500 #### [facility] [address] [place], [address] Glucose [Mass/Vol] 105 mg/dL High 70-99 [facility] Comment on above: Performed By: #### L 500.2500 #### [facility] [address] [place], [address] Potassium [Moles/Vol] 4.3 mmol/L Normal 3.3-5.1 [facility] Comment on above: Performed By: #### L 500.2500 #### [facility] [address] [place], [place], [address] Sodium [Moles/Vol] 118 mmol/L Invalid Interpretation Code 133-145 [facility] Comment on above: Result Comment: Crit ical Result(s) Called at: by:??Results read back by same. CALLED OFFICE AND LEFT MESSAGE AT 1622 Critical Result(s) Called at: by:??Results read back by same. Performed By: #### L 500.2500 #### [facility] [address] [place], [place], [address] Urea nitrogen [Mass/Vol] 5 mg/dL Normal 4-19 [facility] Comment on above: Performed By: #### L 500.2500 #### [facility] [address] [place], [place], [id number] Carbon dioxide, total [Moles /volume] in Central venous bloodOrdered By: Deborah Roa on 05-20-2025 CO2 [Moles/Vol] 23.2 mmol/L 21.0-32.0 [facility] Chloride assayOrdered By: Ra jacoby Roa on 05-20-2025 Chloride [Moles/Vol] 83 mmol/L Low 98-108 [facility] Glomerular filtration rate ( GFR) estimation/1.73 sq m using serum, plasma, or whole bOrdered By: Deborah Roa on 05-20-2025 GFR/1.73 sq M.predicted among non-blacks MDRD (S/P/Bld) [Vol rate/Area] 109 mL/min/{1.73_m2} >60 [facility] Comment on above: mL/min/1.73m2 CKD-EP I Creatinine Equation (2020) Potassium measurement (mass/ volume)Ordered By: Deborah Roa on 05-20-2025 Potassium (Unsp spec) [Mass/Vol] 4.3 mmol/L 3.3-5.1 [facility] Serum creatinine measurement (mass/volume)Ordered By: Deborah Roa on 05-20-2025 Creatinine [Mass/Vol] 0.69 mg/dL Low 0.70-1.20 [facility] Serum glucose measurement (m ass/volume)Ordered By: Deborah Crispin on 05-20-2025 Glucose [Mass/Vol] 105 mg/dL High 70-99 [facility] Serum or plasma calcium pepe urement (mass/volume)Ordered By: Deborah Crispin on 05-20-2025 Calcium [Mass/Vol] 8.9 mg/dL 7.6-11.0 [facility] Serum or plasma urea nitroge n measurement (mass/volume)Ordered By: Deborahtony Roa on 05-20-2025 Urea nitrogen [Mass/Vol] 5 mg/dL 4-19 [facility] Sodium levelOrdered By: Gale tisha Stephensongar on 05-20-2025 Sodium [Moles/Vol] 118 mmol/L Low 133-145 [facility] Comment on above: Critical Result(s) C alled at: by: Results read back by same.CALLED OFFICE AND LEFT MESSAGE AT 1622Critical Result(s) Called at: by: Results read back by same. Surgery Visit Reporton 05-12 Surgery Visit Report [facility] [address] [place] [address]. [address] [place] [address] OFFICE VISIT Date of Service: 05/12/25 MR#: [id number] Acct: [id number] Name: LYNNETTE GONG Rep #: [id number] : 1970 Provider: Dr. Betty brooke MD Age/Sex: 54/M Location: [facility] Status: Signed Intake Vital Signs 02/04/24 17:39 05/03/25 19:20 05/12/25 13:30 Height 5 ft 9 in 5 ft 9 in 5 ft 7 in Weight: 331 lb 8 oz BMI 51.9 BP 148/82 H Blood Pressure Location Rt brachial Position Sitting Respiration 18 Pulse 84 Pulse Source Monitor Temp 97.2 F L Temp Source Temporal Pulse Oximetry (%) 97 Oxygen Delivery Method room air Intake Visit Reasons: COLONOSCOPY Chief Complaint: colonoscopy Is patient in pain?: No Allergies No Known Allergies Allergy (Verified 05/12/25 13:31) Medications ???Medication ???Instructions ???Recorded ???Confirmed ???Type losartan 100 mg tablet 100 mg PO DAILY #30 tabs 05/05/25 05/12/25 Rx amlodipine 5 mg tablet 5 mg PO QDAY 05/12/25 05/12/25 His renettay [facility] Medical History (Updated 05/14/25 @ 08:[address] Betty Steel MD) Constipation Chronic pain Smoker Migraines TIA (transient ischemic attack) HTN (hypertension) Morbid obesity Surgical History (Updated 05/12/25 @ 13:30 by Clau Werner LPN) History of right knee joint replacement Social History Smoking Status: Current every day smoker tobacco type: cigarettes alcohol intake: never substance use type: does not use HPI HPI HPI: 54-year-old male presents for colonoscopy and constipation. Patient states he has bowel moods daily but states they are hard. Patient has been taking some stool softeners and MiraLAX however he has been getting bit of diarrhea with this. Patient states that he did have occasional small amount of bright red blood but nothing the last week. Patient never had previous colonoscopy. Patient denies any family history of colon cancer. Patient denies any chronic abdominal pain/nausea/vomiting. ROS General General: Yes weight change; No appetite, fatigue, colon cancer, breast cancer or weakness HEENT HEENT: No difficulty swallowing, eye injury, eye surgery, swollen glands or hoarseness Endo Endocrine: No thyroid disease, diabetes mellitus, thyroid cancer, Hair loss, heat intolerance or cold intolerance Skin Skin: No rash or changing moles Musc Musculoskeletal: Yes back problems and arthritis; No rheumatoid arthritis, gout or joint pain Cardio Cardiovascular: Yes high blood pressure; No murmur, pacemaker, heart disease, atrial fibrillation, heart attack, heart stent, palpitations, shortness of breath with exertion or chest pain Psych Psychiatric: Yes depression; No anxiety or hearing voices Resp Respiratory: No shortness of breath, Yes sleep apnea, No cough, No COPD, No asthma, No emphysema and No wheezing Gastro Gastrointestinal: No abdominal pain, No nausea or vomiting, No diarrhea, Yes constipation, No blood in stool, No acid reflux, No hemorrhoids, No ulcers, No gallbladder problem and No black,tarry stoo ls Ankit Hematologic: No blood thinners, No blood disorders, No bleeding, No anemia and No blood clots Neuro Neurologic: No numbness, No tingling and No weakness Exam Const General: cooperative, comfortable and no acute distress HENMT Head: normocephalic and atraumatic Neck Neck: supple Resp Effort Inspection: normal respiratory effort Cardio Rate: regular rate GI Inspection: non-distended Palpation: soft, no hernias and nontender Skin General: no rashes or lesions noted Neuro General: CN's II-XI intact bilaterally Extrem General: normal to inspection Psych Mental Status: mental status grossly normal Attitude: cooperative Assessment and Plan Assessment and Plan (1) Constipation: Status: Acute (2) Screen for colon cancer: Status: Acute Plan Discussed with patient to initially try just stool softeners and not the laxative as a gentler and may not cause the loose stools. I have discussed the above with the patient. I have offered the patient colonoscopy for evaluation. I have explained the risks/benefits of the procedure and described the procedure. I have discussed the risks with the patient, including but not limited to: infection, bleeding, perforation of the GI tract requiring emergency surgery, inability to complete the procedure, injury to any internal organs, complications of anesthesia, etc. - the patient understands and agrees to proceed. I have answered all the patient's questions to the patient's satisfaction and the patient has no further questions. The patient has been given instructions for the colon cleansing preparation. 1 day of clear (more content not included)... Normal [facility] Anion gap in Serum or Plasma Ordered By: Kevin Singh on 05-05-2025 Anion gap [Moles/Vol] 10 mmol/L 5-15 [facility] BUN/creatinine ratioOrdered By: Kevin Singh on 05-05-2025 Urea nitrogen/Creatinine [Mass ratio] 7.9 mg/mg Low 10- [facility] Basic Metabolic Profile (BMP )on 05-05-2025 BUN/CRE 7.9 RATIO Low - [facility] Comment on above: Performed By: #### L 500.4050, L501.5200 #### [facility] [address] [place], [place], [id number] Calcium [Mass/Vol] 8.7 mg/dL Normal 7.6-11.0 [facility] Comment on above: Performed By: #### L 500.4050, L501.5200 #### [facility] [address] [place], [address] Chloride [Moles/Vol] 93 mmol/L Low 98-108 [facility] Comment on above: Performed By: #### L 500.4050, L501.5200 #### [facility] [address] [place], [address] CO2 [Moles/Vol] 23.7 mmol/L Normal 21.0-32.0 [facility] Comment on above: Performed By: #### L 500.4050, L501.5200 #### [facility] [address] [place], [address] Creatinine [Mass/Vol] 0.73 mg/dL Normal 0.70-1.20 [facility] Comment on above: Performed By: #### L 500.4050, L501.5200 #### [facility] [address] [place], [address] ECRCL 163.37 ml/min Normal 50-250 [facility] Comment on above: Performed By: #### L 500.4050, L501.5200 #### [facility] [address] [place], [address] GAP 10 Normal 5-15 [facility] Comment on above: Performed By: #### L 500.4050, L501.5200 #### [facility] [address] [place], [address] GFR/1.73 sq M.predicted among non-blacks MDRD (S/P/Bld) [Vol rate/Area] 107 mL/min/{1.73_m2} Normal >60 [facility] Comment on above: Result Comment: mL/m in/1.73m2 CKD-EPI Creatinine Equation (2020) Performed By: #### L 500.4050, L501.5200 #### [facility] [address] [place], [address] Glucose [Mass/Vol] 105 mg/dL High 70-99 [facility] Comment on above: Performed By: #### L 500.4050, L501.5200 #### [facility] [address] [place], [address] Potassium [Moles/Vol] 4.1 mmol/L Normal 3.3-5.1 [facility] Comment on above: Performed By: #### L 500.4050, L501.5200 #### [facility] [address] [place], [address] Sodium [Moles/Vol] 127 mmol/L Low 133-145 [facility] Comment on above: Performed By: #### L 500.4050, L501.5200 #### [facility] [address] [place], [address] Urea nitrogen [Mass/Vol] 6 mg/dL Normal 4-19 [facility] Comment on above: Performed By: #### L 500.4050, L501.5200 #### [facility] [address] [place], [address] Carbon dioxide, total [Moles /volume] in Central venous bloodOrdered By: Kevin Singh on 05-05-2025 CO2 [Moles/Vol] 23.7 mmol/L 21.0-32.0 [facility] Chloride assayOrdered By: Norris Singh on 05-05-2025 Chloride [Moles/Vol] 93 mmol/L Low 98-108 [facility] Electrocardiogram reportOrde red By: Patrick Tian on 05-05-2025 EKG study [facility] [address] [place] [address] 12 Lead EKG 05/03/25 1622 MR#: [id number] Acct: [id number] Name: LYNNETTE GONG Rep #:[id number] : 1970 54 From: Patrick meadows MD Attending Dr: Dr. Kevin Singh DO Status: ADM IN Ordering Dr: Allan Jc DO Date: Location: [facility] Sex: M C Admitted: 05/03/25 Test Reason : Blood Pressure : */* mmHG Vent. Rate : 70 BPM Atrial Rate : 70 BPM P-R Int : 200 ms QRS Dur : 132 ms QT Int : 428 ms P-R-T Axes : 69 -40 28 degrees QTcB Int : 462 ms Normal sinus rhythm with sinus arrhythmia Left axis deviation Right bundle branch block ABNORMAL ECG Confirmed by Patrick Tian ([id number]), tape editor TITO FRIAS ([id number]) on 05/05/2025 9:20:06 AM Referred By: Confirmed By: Patrick Tian 05/05/25919 Date _ Patrick Tian MD CC: METAL MODEL BUILDER-Juju Roa; Dr. Kevin Singh DO; Dr. Allan Jc DO ~ Signed [facility] Other Phone: Glomerular filtration rate ( GFR) estimation/1.73 sq m using serum, plasma, or whole bOrdered By: Kevin Singh on 05-05-2025 GFR/1.73 sq M.predicted among non-blacks MDRD (S/P/Bld) [Vol rate/Area] 107 mL/min/{1.73_m2} >60 [facility] Comment on above: mL/min/1.73m2 CKD-EP I Creatinine Equation (2020) Potassium measurement (mass/ volume)Ordered By: Kevin Singh on 05-05-2025 Potassium (Unsp spec) [Mass/Vol] 4.1 mmol/L 3.3-5.1 [facility] Serum creatinine measurement (mass/volume)Ordered By: Kevin Singh on 05-05-2025 Creatinine [Mass/Vol] 0.73 mg/dL 0.70-1.20 [facility] Serum glucose measurement (m ass/volume)Ordered By: Kevin Singh on 05-05-2025 Glucose [Mass/Vol] 105 mg/dL High 70-99 [facility] Serum or plasma calcium pepe urement (mass/volume)Ordered By: Kevin Singh on 05-05-2025 Calcium [Mass/Vol] 8.7 mg/dL 7.6-11.0 [facility] Serum or plasma urea nitroge n measurement (mass/volume)Ordered By: Kevin Singh on 05-05-2025 Urea nitrogen [Mass/Vol] 6 mg/dL 4-19 [facility] Sodium levelOrdered By: Kevin Singh on 05-05-2025 Sodium [Moles/Vol] 127 mmol/L Low 133-145 [facility] Absolute lymphocyte countOrd ered By: Meseret Minor on 05-04-2025 Lymphocytes Auto (Unsp spec) [#/Vol] 2.08 10*3/uL 0.83-4.51 [facility] Absolute neutrophil countOrd ered By: Meseret Minor on 05-04-2025 Neutrophils (Bld) [#/Vol] 6.0 10*3/uL 2.0-7.7 [facility] Automated lymphocyte count a s percentage of total leukocytesOrdered By: Meseret Minor on 05-04-2025 Lymphocytes/100 WBC Auto (Unsp spec) 22.7 % 19-41 [facility] Basic Metabolic Profile (BMP )on 05-04-2025 BUN/CRE 11.4 RATIO Normal 10-20 [facility] Comment on above: Performed By: #### L 500.2500 #### [facility] [address] [place], [address] Calcium [Mass/Vol] 8.8 mg/dL Normal 7.6-11.0 [facility] Comment on above: Performed By: #### L 500.2500 #### [facility] [address] [place], [address] Chloride [Moles/Vol] 90 mmol/L Low 98-108 [facility] Comment on above: Performed By: #### L 500.2500 #### [facility] [address] [place], [address] CO2 [Moles/Vol] 20.0 mmol/L Low 21.0-32.0 [facility] Comment on above: Performed By: #### L 500.2500 #### [facility] [address] [place], [address] Creatinine [Mass/Vol] 0.64 mg/dL Low 0.70-1.20 [facility] Comment on above: Performed By: #### L 500.2500 #### [facility] [address] [place], [address] ECRCL 187.67 ml/min Normal 50-250 [facility] Comment on above: Performed By: #### L 500.2500 #### [facility] [address] [place], [address] GAP 11 Normal 5-15 [facility] Comment on above: Performed By: #### L 500.2500 #### [facility] [address] [place], [address] GFR/1.73 sq M.predicted among non-blacks MDRD (S/P/Bld) [Vol rate/Area] 112 mL/min/{1.73_m2} Normal >60 [facility] Comment on above: Result Comment: mL/m in/1.73m2 CKD-EPI Creatinine Equation (2020) Performed By: #### L 500.2500 #### [facility] [address] [place], [address] Glucose [Mass/Vol] 114 mg/dL High 70-99 [facility] Comment on above: Performed By: #### L 500.2500 #### [facility] [address] [place], [address] Potassium [Moles/Vol] 4.4 mmol/L Normal 3.3-5.1 [facility] Comment on above: Performed By: #### L 500.2500 #### [facility] [address] [place], [address] Sodium [Moles/Vol] 121 mmol/L Low 133-145 [facility] Comment on above: Performed By: #### L 500.2500 #### [facility] [address] [place], [address] Urea nitrogen [Mass/Vol] 7 mg/dL Normal 4-19 [facility] Comment on above: Performed By: #### L 500.2500 #### [facility] [address] [place], [address] BUN Normal 4-19 [facility] Comment on above: Result Comment: CANC ELLATION ORDER ENTERED Performed By: #### L 500.4050, L501.5200 #### [facility] [address] [place], [address] BUN/CRE Normal 10-20 [facility] Comment on above: Result Comment: CANC ELLATION ORDER ENTERED Performed By: #### L 500.4050, L501.5200 #### [facility] [address] [place], [address] Calcium Normal 7.6-11.0 [facility] Comment on above: Result Comment: CANC ELLATION ORDER ENTERED Performed By: #### L 500.4050, L501.5200 #### [facility] [address] [place], [address] CL Normal 98-108 [facility] Comment on above: Result Comment: CANC ELLATION ORDER ENTERED Performed By: #### L 500.4050, L501.5200 #### [facility] [address] [place], [address] CO2 Normal 21.0-32.0 [facility] Comment on above: Result Comment: CANC ELLATION ORDER ENTERED Performed By: #### L 500.4050, L501.5200 #### [facility] [address] [place], [address] CREAT,SERUM Normal 0.70-1.20 [facility] Comment on above: Result Comment: CANC ELLATION ORDER ENTERED Performed By: #### L 500.4050, L501.5200 #### [facility] [address] [place], [address] eGFR Normal >60 [facility] Comment on above: Result Comment: CANC ELLATION ORDER ENTERED Performed By: #### L 500.4050, L501.5200 #### [facility] [address] [place], [address] GAP Normal 5-15 [facility] Comment on above: Result Comment: CANC ELLATION ORDER ENTERED Performed By: #### L 500.4050, L501.5200 #### [facility] [address] [place], [address] GLU Normal 70-99 [facility] Comment on above: Result Comment: CANC ELLATION ORDER ENTERED Performed By: #### L 500.4050, L501.5200 #### [facility] [address] [place], [address] Potassium Normal 3.3-5.1 [facility] Comment on above: Result Comment: CANC ELLATION ORDER ENTERED Performed By: #### L 500.4050, L501.5200 #### [facility] [address] [place], [address] Basic Metabolic Profile (BMP) Normal 133-145 [facility] Comment on above: Result Comment: CANC ELLATION ORDER ENTERED Performed By: #### L 500.4050, L501.5200 #### [facility] [address] [place], [address] BUN/CRE 9.3 RATIO Low 10-20 [facility] Comment on above: Performed By: #### L 500.2500 #### [facility] [address] [place], [address] Calcium [Mass/Vol] 8.7 mg/dL Normal 7.6-11.0 [facility] Comment on above: Performed By: #### L 500.2500 #### [facility] [address] [place], [address] Chloride [Moles/Vol] 88 mmol/L Low 98-108 [facility] Comment on above: Performed By: #### L 500.2500 #### [facility] [address] [place], [address] CO2 [Moles/Vol] 21.4 mmol/L Normal 21.0-32.0 [facility] Comment on above: Performed By: #### L 500.2500 #### [facility] [address] [place], [address] Creatinine [Mass/Vol] 0.71 mg/dL Normal 0.70-1.20 [facility] Comment on above: Performed By: #### L 500.2500 #### [facility] [address] [place], [address] ECRCL 169.17 ml/min Normal 50-250 [facility] Comment on above: Performed By: #### L 500.2500 #### [facility] [address] [place], [address] GAP 12 Normal 5-15 [facility] Comment on above: Performed By: #### L 500.2500 #### [facility] [address] [place], [address] GFR/1.73 sq M.predicted among non-blacks MDRD (S/P/Bld) [Vol rate/Area] 108 mL/min/{1.73_m2} Normal >60 [facility] Comment on above: Result Comment: mL/m in/1.73m2 CKD-EPI Creatinine Equation (2020) Performed By: #### L 500.2500 #### [facility] [address] [place], [address] Glucose [Mass/Vol] 98 mg/dL Normal 70-99 [facility] Comment on above: Performed By: #### L 500.2500 #### [facility] [address] [place], [address] Potassium [Moles/Vol] 3.8 mmol/L Normal 3.3-5.1 [facility] Comment on above: Performed By: #### L 500.2500 #### [facility] [address] [place], [address] Sodium [Moles/Vol] 121 mmol/L Low 133-145 [facility] Comment on above: Performed By: #### L 500.2500 #### [facility] [address] [place], [address] Urea nitrogen [Mass/Vol] 7 mg/dL Normal 4-19 [facility] Comment on above: Performed By: #### L 500.2500 #### [facility] [address] [place], [address] Basophil percentageOrdered B y: Meseret Minor on 05-04-2025 Basophils/100 WBC (Bld) 0.7 % 0-1 [facility] Bilirubin, totalOrdered By: Meseret Minor on 05-04-2025 Bilirubin [Mass/Vol] 0.56 mg/dL 0.00-1.30 [facility] CBC W/Diff, Automatedon Absolute Lymph 2.08 X10 3/uL Normal 0.83-4.51 [facility] Comment on above: Performed By: #### L 500.4050, L501.5200 #### [facility] [address] [place], [address] Absolute Neut 6.0 X10 3/uL Normal 2.0-7.7 [facility] Comment on above: Performed By: #### L 500.4050, L501.5200 #### [facility] [address] [place], [address] Basophils/100 WBC (Bld) 0.7 % Normal 0-1 [facility] Comment on above: Performed By: #### L 500.4050, L501.5200 #### [facility] [address] [place], [address] Eosinophils/100 WBC (Bld) 0.2 % Normal 0-5 [facility] Comment on above: Performed By: #### L 500.4050, L501.5200 #### [facility] [address] [place], [address] Erythrocyte distribution width (RBC) [Ratio] 12.6 % Normal 11.6-14.6 [facility] Comment on above: Performed By: #### L 500.4050, L501.5200 #### [facility] [address] [place], [address] Hematocrit (Bld) [Volume fraction] 37.9 % Low 40-54 [facility] Comment on above: Performed By: #### L 500.4050, L501.5200 #### [facility] [address] [place], [address] Hemoglobin (Bld) [Mass/Vol] 14.0 g/dL Normal 13.0-16.5 [facility] Comment on above: Performed By: #### L 500.4050, L501.5200 #### [facility] [address] [place], [address] IG% 0.800 Normal 0.0-0.9 [facility] Comment on above: Result Comment: IG% - Immature Granulocytes (promyelocytes, myelocytes and metamyelocytes) > 1% indicates that a LEFT SHIFT is Present. Performed By: #### L 500.4050, L501.5200 #### [facility] [address] [place], [address] Lymphocytes/100 WBC (Bld) 22.7 % Normal 19-41 [facility] Comment on above: Performed By: #### L 500.4050, L501.5200 #### [facility] [address] [place], [address] MCH (RBC) [Entitic mass] 30.0 pg Normal 27.0-32.0 [facility] Comment on above: Performed By: #### L 500.4050, L501.5200 #### [facility] [address] [place], [address] MCHC (RBC) [Mass/Vol] 36.9 g/dL High 32-36 [facility] Comment on above: Performed By: #### L 500.4050, L501.5200 #### [facility] [address] [place], [address] MCV (RBC) [Entitic vol] 81.3 fL Normal 80-94 [facility] Comment on above: Performed By: #### L 500.4050, L501.5200 #### [facility] [address] [place], [address] Monocytes/100 WBC (Bld) 10.3 % High 0-10 [facility] Comment on above: Performed By: #### L 500.4050, L501.5200 #### [facility] [address] [place], [address] Neutrophils/100 WBC (Bld) 65.3 % Normal 47-70 [facility] Comment on above: Performed By: #### L 500.4050, L501.5200 #### [facility] [address] [place], [address] Nucleated RBC (Bld) [#/Vol] 0 10*3/uL Normal 0-5 [facility] Comment on above: Performed By: #### L 500.4050, L501.5200 #### [facility] [address] [place], [address] Platelet mean volume (Bld) [Entitic vol] 9.1 fL Normal 6.2-12.0 [facility] Comment on above: Performed By: #### L 500.4050, L501.5200 #### [facility] [address] [place], [address] Platelets (Bld) [#/Vol] 252 10*3/uL Normal 150-450 [facility] Comment on above: Performed By: #### L 500.4050, L501.5200 #### [facility] [address] [place], [address] RBC (Bld) [#/Vol] 4.66 10*6/uL Normal 4.6-6.2 [facility] Comment on above: Performed By: #### L 500.4050, L501.5200 #### [facility] [address] [place], [address] RDW SD 37.4 fl Normal 35.1-43.9 [facility] Comment on above: Performed By: #### L 500.4050, L501.5200 #### [facility] [address] [place], [address] WBC (Bld) [#/Vol] 9.2 10*3/uL Normal 4.4-11.0 [facility] Comment on above: Performed By: #### L 500.4050, L501.5200 #### [facility] [address] [place], [address] Comprehensive Metabolic Prof [facility] 05-04-2025 Albumin [Mass/Vol] 3.9 g/dL Normal 3.5-5.0 [facility] Comment on above: Performed By: #### L 500.4050, L501.5200 #### [facility] [address] [place], [address] Albumin/Globulin [Mass ratio] 1.6 {ratio} Normal 0.9-2.4 [facility] Comment on above: Performed By: #### L 500.4050, L501.5200 #### [facility] [address] [place], [address] ALK PHOS 56 U/L Normal 40-129 [facility] Comment on above: Performed By: #### L 500.4050, L501.5200 #### [facility] [address] [place], [address] ALT [Catalytic activity/Vol] 12 U/L Normal <=46 [facility] Comment on above: Performed By: #### L 500.4050, L501.5200 #### [facility] [address] [place], [address] AST [Catalytic activity/Vol] 20 U/L Normal <=37 [facility] Comment on above: Performed By: #### L 500.4050, L501.5200 #### [facility] [address] [place], [address] Bilirubin [Mass/Vol] 0.56 mg/dL Normal 0.00-1.30 [facility] Comment on above: Performed By: #### L 500.4050, L501.5200 #### [facility] [address] [place], [address] BUN/CRE 9.3 RATIO Low 10-20 [facility] Comment on above: Performed By: #### L 500.4050, L501.5200 #### [facility] [address] [place], [address] Calcium [Mass/Vol] 8.7 mg/dL Normal 7.6-11.0 [facility] Comment on above: Performed By: #### L 500.4050, L501.5200 #### [facility] [address] [place], [address] Chloride [Moles/Vol] 89 mmol/L Low 98-108 [facility] Comment on above: Performed By: #### L 500.4050, L501.5200 #### [facility] [address] [place], [address] CO2 [Moles/Vol] 22.0 mmol/L Normal 21.0-32.0 [facility] Comment on above: Performed By: #### L 500.4050, L501.5200 #### [facility] [address] [place], [address] Creatinine [Mass/Vol] 0.62 mg/dL Low 0.70-1.20 [facility] Comment on above: Performed By: #### L 500.4050, L501.5200 #### [facility] [address] [place], [address] ECRCL 193.73 ml/min Normal 50-250 [facility] Comment on above: Performed By: #### L 500.4050, L501.5200 #### [facility] [address] [place], [address] GAP 11 Normal 5-15 [facility] Comment on above: Performed By: #### L 500.4050, L501.5200 #### [facility] [address] [place], [address] GFR/1.73 sq M.predicted among non-blacks MDRD (S/P/Bld) [Vol rate/Area] 113 mL/min/{1.73_m2} Normal >60 [facility] Comment on above: Result Comment: mL/m in/1.73m2 CKD-EPI Creatinine Equation (2020) Performed By: #### L 500.4050, L501.5200 #### [facility] [address] [place], [address] Globulin (S) [Mass/Vol] 2.4 g/dL Normal 2.2-4.2 [facility] Comment on above: Performed By: #### L 500.4050, L501.5200 #### [facility] [address] [place], [address] Glucose [Mass/Vol] 101 mg/dL High 70-99 [facility] Comment on above: Performed By: #### L 500.4050, L501.5200 #### [facility] [address] [place], [address] Potassium [Moles/Vol] 3.8 mmol/L Normal 3.3-5.1 [facility] Comment on above: Performed By: #### L 500.4050, L501.5200 #### [facility] [address] [place], [address] Sodium [Moles/Vol] 123 mmol/L Low 133-145 [facility] Comment on above: Performed By: #### L 500.4050, L501.5200 #### [facility] [address] [place], [address] T PROT 6.3 g/dL Normal 5.9-8.4 [facility] Comment on above: Performed By: #### L 500.4050, L501.5200 #### [facility] [address] [place], [address] Urea nitrogen [Mass/Vol] 6 mg/dL Normal 4-19 [facility] Comment on above: Performed By: #### L 500.4050, L501.5200 #### [facility] [address] [place], [address] Eosinophil percentageOrdered By: Meseret Minor on 05-04-2025 Eosinophils/100 WBC (Bld) 0.2 % 0-5 [facility] Erythrocyte distribution wid th ratioOrdered By: Meseret Minor on 05-04-2025 Erythrocyte distribution width (RBC) [Ratio] 12.6 % 11.6-14.6 [facility] Erythrocyte distribution wid th standard deviationOrdered By: Meseret Minor on 05-04-2025 Erythrocyte distribution width (RBC) [Ratio] 37.4 fl 35.1-43.9 [facility] Hematocrit Auto (Bld) [Volum e fraction]Ordered By: Meseret Minor on 05-04-2025 Hematocrit (Bld) [Volume fraction] 37.9 % Low 40-54 [facility] Hemoglobin measurementOrdere d By: Meseret Minor on 05-04-2025 Hemoglobin (Bld) [Mass/Vol] 14.0 g/dL 13.0-16.5 [facility] Immature granulocytes/100 WB C Auto (Bld)Ordered By: Meseret Minor on 05-04-2025 Immature granulocytes/100 WBC (Bld) 0.800 % 0.0-0.9 [facility] Comment on above: IG% - Immature Granu locytes (promyelocytes, myelocytes and metamyelocytes) > 1% indicates that a LEFT SHIFT is Present. Laboratory - Chemistry and C hemistry - challengeOrdered By: Meseret Minor on 05-04-2025 AST [Catalytic activity/Vol] 20 U/L <38 [facility] MCV (mean corpuscular volume ) determinationOrdered By: Meseret Minor on 05-04-2025 MCV (RBC) [Entitic vol] 81.3 fL 80-94 [facility] Magnesiumon 05-04-2025 Magnesium [Mass/Vol] 1.9 mg/dL Normal 1.5-2.2 [facility] Comment on above: Performed By: #### L 500.4050, L501.5200 #### [facility] [address] [place], [address] Magnesium measurement (mass/ volume)Ordered By: Meseret Minor on 05-04-2025 Magnesium (Unsp spec) [Mass/Vol] 1.9 mg/dL 1.5-2.2 [facility] Mean corpuscular hemoglobin (MCH) determinationOrdered By: Meseret Minor on 05-04-2025 MCH (RBC) [Entitic mass] 30.0 pg 27.0-32.0 [facility] Mean corpuscular hemoglobin concentration (MCHC) determinationOrdered By: Meseret Minor on 05-04-2025 MCHC (RBC) [Mass/Vol] 36.9 g/dL High 32-36 [facility] Mean platelet volume determi nationOrdered By: Meseret Minor on 05-04-2025 Platelet mean volume (Bld) [Entitic vol] 9.1 fL 6.2-12.0 [facility] Monocyte percentageOrdered B y: Meseret Minor on 05-04-2025 Monocytes/100 WBC (Bld) 10.3 % High 0-10 [facility] Neutrophil percentageOrdered By: Meseret Minor on 05-04-2025 Neutrophils/100 WBC (Bld) 65.3 % 47-70 [facility] Nucleated red blood cell per centageOrdered By: Meseret Minor on 05-04-2025 Nucleated RBC/100 WBC (Bld) [Ratio] 0 % 0-5 [facility] Osmolality, Urineon 05-04-20 25 OSMOLALITY,UR 181 mOsm/KG Normal [facility] Comment on above: Result Comment: Normal Urine Reference Ranges Random: 50 - 1200 mOsm/kg H20 depending on fluid intake Random: >850 mOsm/kg after 12 hour fluid restriction 24 hour: 300 - 900 mOsm/kg H2O Performed By: #### L 501.5500, L501.7400 #### [facility] [address] [place], [address] Phosphoruson 05-04-2025 Phosphate [Mass/Vol] 3.9 mg/dL Normal 2.7-4.5 [facility] Comment on above: Performed By: #### L 500.4050, L501.5200 #### [facility] [address] [place], [address] Platelet countOrdered By: Bhavesh Minor on 05-04-2025 Platelets (Bld) [#/Vol] 252 10*3/uL 150-450 [facility] RBC Auto (Bld) [#/Vol]Ordere d By: Meseret Minor on 05-04-2025 RBC (Bld) [#/Vol] 4.66 10*6/uL 4.6-6.2 [facility] Serum globulin measurementOr dered By: Meseret Minor on 05-04-2025 Globulin (S) [Mass/Vol] 2.4 g/dL 2.2-4.2 [facility] Serum or plasma alanine sanchez otransferase (ALT) measurementOrdered By: Meseret Minor on 05-04-2025 ALT [Catalytic activity/Vol] 12 U/L <47 [facility] Serum or plasma albumin pepe urement (mass/volume)Ordered By: Meseret Minor on 05-04-2025 Albumin [Mass/Vol] 3.9 g/dL 3.5-5.0 [facility] Serum or plasma albumin/glob ulin mass ratioOrdered By: Meseret Minor on 05-04-2025 Albumin/Globulin [Mass ratio] 1.6 {ratio} 0.9-2.4 [facility] Serum or plasma alkaline logan sphatase measurementOrdered By: Meseret Minor on 05-04-2025 ALP [Catalytic activity/Vol] 56 U/L 40-129 [facility] Total proteinOrdered By: Magalie Minor on 05-04-2025 Protein [Mass/Vol] 6.3 g/dL 5.9-8.4 [facility] Urine Drug Screen (VISTA)on 05-04-2025 AMPHETAMINES Negative Normal <1000 ng/mL [facility] Comment on above: Performed By: #### L 505.5000 #### [facility] [address] [place], [address] BARBITIURATES Negative Normal < 200 ng/mL [facility] Comment on above: Performed By: #### L 505.5000 #### [facility] [address] [place], [address] BENZODIAZIPINE Negative Normal < 200 ng/mL [facility] Comment on above: Performed By: #### L 505.5000 #### [facility] [address] [place], [address] BUP Ur Drug Scr Negative Normal < 200 ng/mL [facility] Comment on above: Performed By: #### L 505.5000 #### [facility] [address] [place] [address] COCAINE Negative Normal < 300 ng/mL [facility] Comment on above: Performed By: #### L 505.5000 #### [facility] [address] [place] [address] Fentanyl Negative Normal [facility] Comment on above: Performed By: #### L 505.5000 #### [facility] [address] [place] [address] METHADONE Negative Normal < 300 ng/mL [facility] Comment on above: Performed By: #### L 505.5000 #### [facility] [address] [place] [address] OPIATES Negative Normal < 300 ng/mL [facility] Comment on above: Performed By: #### L 505.5000 #### [facility] [address] [place] [address] OXYCODONE Negative Normal < 100 ng/mL [facility] Comment on above: Performed By: #### L 505.5000 #### [facility] [address] [place] [address] PCP Negative Normal < 25 ng/mL [facility] Comment on above: Performed By: #### L 505.5000 #### [facility] [address] [place] [address] THC Negative Normal < 50 ng/mL [facility] Comment on above: Performed By: #### L 505.5000 #### [facility] [address] [place], [address] Urine Sodiumon 05-04-2025 Sodium (U) [Moles/Vol] 33 mmol/L Normal Not Establ. [facility] Comment on above: Performed By: #### L 501.5500, L501.7400 #### [facility] [address] [facility] [place], [address] White blood cell (WBC) count Ordered By: Meseret Minor on 05-04-2025 WBC (Bld) [#/Vol] 9.2 10*3/uL 4.4-11.0 [facility] 12 Lead EKGon 05-03-2025 12 Lead EKG [facility] [address] [place] [address] 12 Lead EKG 05/03/25 1622 MR#: [id number] Acct: [id number] Name: LYNNETTE GONG Rep #: [id number] : 1970 54 From: Patrick Tian MD Attending Dr: Dr. Kevin Singh DO Status: ADM IN Ordering Dr: Allan Jc DO Date: 05/03/25 Location: [facility] Sex: M C Admitted: 05/03/25 Test Reason : Blood Pressure : */* mmHG Vent. Rate : 70 BPM Atrial Rate : 70 BPM P-R Int : 200 ms QRS Dur : 132 ms QT Int : 428 ms P-R-T Axes : 69 -40 28 degrees QTcB Int : 462 ms Normal sinus rhythm with sinus arrhythmia Left axis deviation Right bundle branch block ABNORMAL ECG Confirmed by Patrick Tian ([id number]), tape editor TITO FRIAS ([id number]) on 05/05/2025 9:20:06 AM Referred By: Confirmed By: Patrick Tian 05/05/25919 Date Patrick Tian MD CC: [employer]-Juju Roa; Dr. Kevin Singh DO; Dr. Allan Jc DO Signed Normal [facility] Absolute lymphocyte countOrd ered By: Allan Jc on 05-03-2025 Lymphocytes Auto (Unsp spec) [#/Vol] 1.81 10*3/uL 0.83-4.51 [facility] Absolute neutrophil countOrd ered By: Allan cJ on 05-03-2025 Neutrophils (Bld) [#/Vol] 8.9 10*3/uL High 2.0-7.7 [facility] Amphetamine detection with 1 000 ng/mL as cutoffOrdered By: Meseret Minor on 05-03-2025 Amphetamines Screen method >1000 ng/mL Ql (U) Negative < 200 ng/mL [facility] Anion gap in Serum or Plasma Ordered By: Allan Jc on 05-03-2025 Anion gap [Moles/Vol] 13 mmol/L 5-15 [facility] Automated lymphocyte count a s percentage of total leukocytesOrdered By: Allan Jc on 05-03-2025 Lymphocytes/100 WBC Auto (Unsp spec) 15.6 % Low 19-41 [facility] BUN/creatinine ratioOrdered By: Allan Jc on 05-03-2025 Urea nitrogen/Creatinine [Mass ratio] 6.9 mg/mg Low 10-20 [facility] Basic Metabolic Profile (BMP )on 05-03-2025 BUN/CRE 7.6 RATIO Low 10-20 [facility] Comment on above: Performed By: #### L 501.5500, L501.7400 #### [facility] [address] [place], [address] Calcium [Mass/Vol] 9.1 mg/dL Normal 7.6-11.0 [facility] Comment on above: Performed By: #### L 501.5500, L501.7400 #### [facility] [address] [place], [address] Chloride [Moles/Vol] 85 mmol/L Low 98-108 [facility] Comment on above: Performed By: #### L 501.5500, L501.7400 #### [facility] [address] [place], [address] CO2 [Moles/Vol] 22.2 mmol/L Normal 21.0-32.0 [facility] Comment on above: Performed By: #### L 501.5500, L501.7400 #### [facility] [address] [place], [address] Creatinine [Mass/Vol] 0.75 mg/dL Normal 0.70-1.20 [facility] Comment on above: Performed By: #### L 501.5500, L501.7400 #### [facility] [address] [place], [address] ECRCL 160.33 ml/min Normal 50-250 [facility] Comment on above: Performed By: #### L 501.5500, L501.7400 #### [facility] [address] [place], [address] GAP 12 Normal 5-15 [facility] Comment on above: Performed By: #### L 501.5500, L501.7400 #### [facility] [address] [place], [address] GFR/1.73 sq M.predicted among non-blacks MDRD (S/P/Bld) [Vol rate/Area] 107 mL/min/{1.73_m2} Normal >60 [facility] Comment on above: Result Comment: mL/m in/1.73m2 CKD-EPI Creatinine Equation (2020) Performed By: #### L 501.5500, L501.7400 #### [facility] [address] [place], [address] Glucose [Mass/Vol] 104 mg/dL High 70-99 [facility] Comment on above: Performed By: #### L 501.5500, L501.7400 #### [facility] [address] [place], [address] Potassium [Moles/Vol] 4.5 mmol/L Normal 3.3-5.1 [facility] Comment on above: Performed By: #### L 501.5500, L501.7400 #### [facility] [address] [place], [address] Sodium [Moles/Vol] 119 mmol/L Invalid Interpretation Code 133-145 [facility] Comment on above: Result Comment: Crit ical Result(s) Called at: 05/03/2025-21:28 by: Cuba Varela to Jolly Worthington.??Results read back by same. Performed By: #### L 501.5500, L501.7400 #### [facility] [address] [place], [address] Urea nitrogen [Mass/Vol] 6 mg/dL Normal 4-19 [facility] Comment on above: Performed By: #### L 501.5500, L501.7400 #### [facility] [address] [place], [address] BUN/CRE 6.9 RATIO Low 10-20 [facility] Comment on above: Performed By: #### L 500.4050, L501.5200 #### [facility] [address] [place], [address] Calcium [Mass/Vol] 9.1 mg/dL Normal 7.6-11.0 [facility] Comment on above: Performed By: #### L 500.4050, L501.5200 #### [facility] [address] [place], [address] Chloride [Moles/Vol] 84 mmol/L Low 98-108 [facility] Comment on above: Performed By: #### L 500.4050, L501.5200 #### [facility] [address] [place], [address] CO2 [Moles/Vol] 21.4 mmol/L Normal 21.0-32.0 [facility] Comment on above: Performed By: #### L 500.4050, L501.5200 #### [facility] [address] [place], [address] Creatinine [Mass/Vol] 0.74 mg/dL Normal 0.70-1.20 [facility] Comment on above: Performed By: #### L 500.4050, L501.5200 #### [facility] [address] [place], [address] ECRCL 162.50 ml/min Normal 50-250 [facility] Comment on above: Performed By: #### L 500.4050, L501.5200 #### [facility] [address] [place], [address] GAP 13 Normal 5-15 [facility] Comment on above: Performed By: #### L 500.4050, L501.5200 #### [facility] [address] [place], [address] GFR/1.73 sq M.predicted among non-blacks MDRD (S/P/Bld) [Vol rate/Area] 107 mL/min/{1.73_m2} Normal >60 [facility] Comment on above: Result Comment: mL/m in/1.73m2 CKD-EPI Creatinine Equation (2020) Performed By: #### L 500.4050, L501.5200 #### [facility] [address] [place], [address] Glucose [Mass/Vol] 113 mg/dL High 70-99 [facility] Comment on above: Performed By: #### L 500.4050, L501.5200 #### [facility] [address] [place], [address] Potassium [Moles/Vol] 4.5 mmol/L Normal 3.3-5.1 [facility] Comment on above: Performed By: #### L 500.4050, L501.5200 #### [facility] [address] [place], [address] Sodium [Moles/Vol] 119 mmol/L Invalid Interpretation Code 133-145 [facility] Comment on above: Result Comment: Crit ical Result(s) Called at: 1620 by: SARA to Adin MATA.??Results read back by same. Performed By: #### L 500.4050, L501.5200 #### [facility] [address] [place], [address] Urea nitrogen [Mass/Vol] 5 mg/dL Normal 4-19 [facility] Comment on above: Performed By: #### L 500.4050, L501.5200 #### [facility] [address] [place], [address] Basophil percentageOrdered B y: Allan Jc on 05-03-2025 Basophils/100 WBC (Bld) 0.5 % 0-1 [facility] Bilirubin Test strip Ql (U)O rdered By: Meseret Minor on 05-03-2025 Bilirubin Ql (U) Negative Negative [facility] CBC W/Diff, Automatedon - Absolute Lymph 1.81 X10 3/uL Normal 0.83-4.51 [facility] Comment on above: Performed By: #### L 500.4050, L501.5200 #### [facility] [address] [place], [address] Absolute Neut 8.9 X10 3/uL High 2.0-7.7 [facility] Comment on above: Performed By: #### L 500.4050, L501.5200 #### [facility] [address] [place], [address] Basophils/100 WBC (Bld) 0.5 % Normal 0-1 [facility] Comment on above: Performed By: #### L 500.4050, L501.5200 #### [facility] [address] [place], [address] Eosinophils/100 WBC (Bld) 0.1 % Normal 0-5 [facility] Comment on above: Performed By: #### L 500.4050, L501.5200 #### [facility] [address] [place], [address] Erythrocyte distribution width (RBC) [Ratio] 12.6 % Normal 11.6-14.6 [facility] Comment on above: Performed By: #### L 500.4050, L501.5200 #### [facility] [address] [place], [address] Hematocrit (Bld) [Volume fraction] 41.1 % Normal 40-54 [facility] Comment on above: Performed By: #### L 500.4050, L501.5200 #### [facility] [address] [place], [address] Hemoglobin (Bld) [Mass/Vol] 14.8 g/dL Normal 13.0-16.5 [facility] Comment on above: Performed By: #### L 500.4050, L501.5200 #### [facility] [address] [place], [address] IG% 0.600 Normal 0.0-0.9 [facility] Comment on above: Result Comment: IG% - Immature Granulocytes (promyelocytes, myelocytes and metamyelocytes) > 1% indicates that a LEFT SHIFT is Present. Performed By: #### L 500.4050, L501.5200 #### [facility] [address] [place], [address] Lymphocytes/100 WBC (Bld) 15.6 % Low 19-41 [facility] Comment on above: Performed By: #### L 500.4050, L501.5200 #### [facility] [address] [place], [address] MCH (RBC) [Entitic mass] 29.2 pg Normal 27.0-32.0 [facility] Comment on above: Performed By: #### L 500.4050, L501.5200 #### [facility] [address] [place], [address] MCHC (RBC) [Mass/Vol] 36.0 g/dL Normal 32-36 [facility] Comment on above: Performed By: #### L 500.4050, L501.5200 #### [facility] [address] [place], [address] MCV (RBC) [Entitic vol] 81.2 fL Normal 80-94 [facility] Comment on above: Performed By: #### L 500.4050, L501.5200 #### [facility] [address] [place], [address] Monocytes/100 WBC (Bld) 6.7 % Normal 0-10 [facility] Comment on above: Performed By: #### L 500.4050, L501.5200 #### [facility] [address] [place], [address] Neutrophils/100 WBC (Bld) 76.5 % High 47-70 [facility] Comment on above: Performed By: #### L 500.4050, L501.5200 #### [facility] [address] [place], [address] Nucleated RBC (Bld) [#/Vol] 0 10*3/uL Normal 0-5 [facility] Comment on above: Performed By: #### L 500.4050, L501.5200 #### [facility] [address] [place], [address] Platelet mean volume (Bld) [Entitic vol] 9.0 fL Normal 6.2-12.0 [facility] Comment on above: Performed By: #### L 500.4050, L501.5200 #### [facility] [address] [place], [address] Platelets (Bld) [#/Vol] 313 10*3/uL Normal 150-450 [facility] Comment on above: Performed By: #### L 500.4050, L501.5200 #### [facility] [address] [place], [address] RBC (Bld) [#/Vol] 5.06 10*6/uL Normal 4.6-6.2 [facility] Comment on above: Performed By: #### L 500.4050, L501.5200 #### [facility] [address] [place], [address] RDW SD 37.1 fl Normal 35.1-43.9 [facility] Comment on above: Performed By: #### L 500.4050, L501.5200 #### [facility] [address] [place], [address] WBC (Bld) [#/Vol] 11.6 10*3/uL High 4.4-11.0 [facility] Comment on above: Performed By: #### L 500.4050, L501.5200 #### [facility] [address] [place], [address] Carbon dioxide, total [Moles /volume] in Central venous bloodOrdered By: Allan Jc on 05-03-2025 CO2 [Moles/Vol] 21.4 mmol/L 21.0-32.0 [facility] Chest PA and Lateralon 05-03 Chest PA and Lateral [facility] Services [address] [place] [address] Chest PA and Lateral MR#: [id number] Acct: [id number] Name: LYNNETTE GONG Rep #: [id number] : 1970 M 54 From: Agnes Degroot nd, MD PCP: UMAIR Taveras Status: REG ER Study: Chest PA and Lateral Date of Exam: 05/03/25 Exam# [id number] Ordering Dr: Allan Jc DO PROCEDURE: CHEST PA AND LATERAL 05/03/2025 REASON FOR EXAM: HTN TECHNIQUE: Frontal and lateral views of the chest. COMPARISON: None. FINDINGS: Hardware: None. Heart: The heart size is normal. Mediastinum: The mediastinal contour is unremarkable. Lungs: Bibasilar atelectasis/scarring. No focal consolidation, pleural effusion or pneumothorax. Bones: Degenerative changes are identified within the thoracic spine. RAD/Chest PA and Lateral IMPRESSION: NO ACUTE FINDINGS. Reading Location: [facility] CC: [employer] Deborah Roa; Dr. Allan Jc DO Senior Service Aide: Signed Normal [facility] Chloride assayOrdered By: Osiel Jc on 05-03-2025 Chloride [Moles/Vol] 84 mmol/L Low 98-108 [facility] Emergency Department Summary on 05-03-2025 Emergency Department Summary [facility] Medical Records Department [address] [place] [address] Emergency Department Summary 05/03/25 MR#: [id number] Acct: [id number] Name: LYNNETTE GONG Rep #: [id number] : 1970 54 From: Allan Jc DO PCP: UMAIR Taveras Status:REG ER Location: ED HPI History of Present Illness Chief Complaint: Hypertension Narrative Narrative: Patient is a 54-year-old male who presents to the emergency department chief complaint of elevated blood pressure. Patient states that just 3 days ago he saw a primary care physician for the first time and was started on blood pressure medication. He states that he had a headache earlier and noted that he checked his blood pressure this was elevated he states that he called his primary care physician and they advised him to take a extra dose of the blood pressure medication that he was started on losartan and check his blood pressure again in 2 hours. He states that he did this in his blood pressure was a systolic of the 200s he called them back and they advised him to come to the emergency department to be evaluated. Patient states that he no longer has a headache. [facility] Medical History (Updated 05/03/25 @ 18:[address] Allan Jc, ) HTN (hypertension) Morbid obesity Home Medications ???Medication ???Instructions ???Recorded ???Last Taken ???Type losartan 25 mg tablet 25 mg PO DAILY 05/03/25 Unknown Hi story Allergy/AdvReac Type Severity Reaction Status Date / Time No Known Allergies Allergy Verified 05/03/25 15:37 Social History Smoking Status: Current every day smoker tobacco type: cigarettes ROS ROS ED ROS Narrative Constitutional: Complains of lightheadedness and headache as noted above but the headache has resolved with denies any fevers, chills, dizziness, Eyes: Denies change in vision double vision blurry vision he states that earlier when he had a headache he had spots that would flash in his peripheral vision this is resolved Cardiovascular: Denies chest pain or palpitations Respiratory: Denies cough wheezing shortness of breath Abdomen: Denies abdominal pain nausea vomiting diarrhea : Denies any urinary symptoms Neurological: Denies numbness, weakness, tingling Musculoskeletal: Denies back pain Skin: Denies rashes or lesions EXAM Physical Exam Narrative Exam Narrative: General: Patient lying in bed rest comfortably did not appear to be acute distress Head: Atraumatic, normocephalic Eyes: PERRL bilaterally, EOMI bilateral, no conjunctival injection noted Neck: Soft, supple, trachea midline Cardiovascular: Regular in rhythm Respiratory: Clear to auscultation bilaterally Abdomen: Soft, nondistended, no tenderness to palpation Extremities: +5/5 strength noted in the bilateral upper and lower extremities, radial pulses +2/4 in the bilateral extremities Neurological: Patient following commands knew that he was at [facility] year is 2024 patient NIH of 0 GCS 15 Skin: Warm, dry, intact no rashes or lesions noted Const Vital Signs: 05/03/25 15:36 05/03/25 15:37 05/03/25 15:49 Temperature 97.4 F L Temperature Source Temporal Pulse Rate 83 Respiratory Rate 18 Respiratory Effort Normal Non-Labored Respiratory Pattern Normal Blood Pressure 186/101 H Blood Pressure Mean 129 Pulse Ox 100 Oxygen Delivery Method Room Air Room Air 05/03/25 17:36 05/03/25 18:11 Temperature 98.1 F Temperature Source Pulse Rate 73 73 Respiratory Rate 16 16 Respiratory Effort Respiratory Pattern Blood Pressure 159/89 H 159/89 H Blood Pressure Mean 112 112 Pulse Ox 98 98 Oxygen Delivery Method Room Air MDM MDM MDM Narrative Medical decision making narrative: Patient is a 54-year-old male who presents to the emergency department with a chief complaint of hypertension. On the differential diagnose includes but not limited to essential hypertension, hypertensive emergency, migraine headache that is resolved. Once workup is obtained and reviewed he will be reevaluated. Patient be given 0.1 mg clonidine for his hypertension and emergency department Patient CBC reviewed showed a white blood cell count of 11,000, he was 14.8, platelet count of 313. Patient sodium was low indicating hyponatremia at 119, potassium was 4.5, creatinine of 0.74. Patient glucose was 113, hemoglobin A1c was 6. Patient TSH normal at 1.05, free T3 and T4 were 2.8 and 1.30 respectively. Patient's troponin was 9, EKG reviewed and showed sinus rhythm with a rate of 70 bpm with evidence of right bundle branch block. This was compared to EKG of September 20, 2022 which showed sinus rhythm with a rate of 82 bpm at that point time as well.Patient's chest x-ray reviewed by myself and by radio (more content not included)... Normal [facility] Eosinophil percentageOrdered By: Allannorris Jc on 05-03-2025 Eosinophils/100 WBC (Bld) 0.1 % 0-5 [facility] Erythrocyte distribution wid th ratioOrdered By: Allan Jc on 05-03-2025 Erythrocyte distribution width (RBC) [Ratio] 12.6 % 11.6-14.6 [facility] Erythrocyte distribution wid th standard deviationOrdered By: Allan Jc on 05-03-2025 Erythrocyte distribution width (RBC) [Ratio] 37.1 fl 35.1-43.9 [facility] Free T3on 05-03-2025 Free T3 [Mass/Vol] 2.8 pg/mL Normal 2.18-3.98 [facility] Comment on above: Performed By: #### L 500.4050, L501.5200 #### [facility] [address] [place], [address] Free X6Wnfiadn By: Allan silva on 05-03-2025 Free T3 [Mass/Vol] 2.8 pg/mL 2.18-3.98 [facility] Free T3 [Mass/Vol] 2.8 pg/mL 2.18-3.98 [facility] Glomerular filtration rate ( GFR) estimation/1.73 sq m using serum, plasma, or whole bOrdered By: Allan Jc on 05-03-2025 GFR/1.73 sq M.predicted among non-blacks MDRD (S/P/Bld) [Vol rate/Area] 107 mL/min/{1.73_m2} >60 [facility] Comment on above: mL/min/1.73m2 CKD-EP I Creatinine Equation (2020) H AND P Exam - [facility] 05-03-2025 H&P Exam - Hospitalist [facility] Medical Records Department [address] [place] [address] H P Exam - Hospitalist 05/03/25 1806 MR#: [id number] Acct: [id number] Name: LYNNETTE GONG Rep #: [id number] : 1970 54 From: Meseret Minor DO PCP: UMAIR Taveras Status:ADM IN Location: [place] [id number] HPI - General General Date of Admission: 05/03/25 Date of Service: 05/03/25 Chief Complaint: Elevated blood pressure HPI Narrative LYNNETTE GONG, is a 54 M who presented to the emergency department [facility] on 05/03/2025 with the chief complaint of elevated blood pressure. Patient recently has established with a doctor and he not traditionally followed with a physician. They started him on losartan 25 mg daily however his blood pressures remain markedly elevated. He was concerned so he came to the emergency department. He has been having headaches and difficulty sleeping. He states that he sleeps only about 2 hours at a time. He also has chronic low back pain. He states he suspects he has sleep apnea but has never been evaluated. He also is a smoker. Blood pressure at home prior to presentation was in the 200s systolic so he was advised by his PCP on-call physician to come to the emergency department. Headache was resolved at the time of admission. Vital signs on presentation showed a temperature of 97.4, heart rate 83, blood pressure was 186/101, respiratory rate is 18, pulse ox was 100% on room air. CBC shows a very mild leukocytosis with white count of 11.6. Chemistry panel showed marked hyponatremia with a sodium of 119 and a chloride of 84 but was otherwise unremarkable. Glucose was only 113 and A1c was obtained in the emergency department found to be 6.0. Troponin was 9 with a repeat of 9. TSH was normal at 1.05. Patient has had previous tox screens positive for amphetamine/MDMA but it is unclear what medications he was on at that time. Patient denies any current alcohol or drug use. He does smoke about a pack of cigarettes daily. He was started on IV fluids. We have added some's subsequent testing to see if we can figure out the etiology of his hyponatremia. He was also given some clonidine p.o. x 1 dose in the emergency department to bring his blood pressure down with his most recent blood pressure at 159/89. [facility] Medical History HTN (hypertension) Morbid obesity Home Medications ???Medication ???Instructions ???Recorded ???Last Taken ???Type losartan 25 mg tablet 25 mg PO DAILY 05/03/25 Unknown Hi story Allergy/AdvReac Type Severity Reaction Status Date / Time No Known Allergies Allergy Verified 05/03/25 15:37 no significant family history no surgical history Social History (Updated 05/03/25 @ 18:[address] Meseret Minor, DO) Smoking Status: Current every day smoker tobacco type: cigarettes alcohol intake: never substance use type: does not use ROS Constitutional Constitutional: Denies anorexia, change in weight, chills, fatigue, fever(s), malaise, night sweats, weakness or other Eyes Eyes: Denies blurry vision, change in eye color, change in vision, discharge from eye(s), double vision, erythema, eye pain, loss of vision or other ENT HEENT: Reports headache(s) and post nasal drip; Denies abnormal hearing, dysphagia, ear pain, epistaxis, hearing loss, nasal congestion, nasal discharge, sinus pressure, sore throat or other Cardiovascular Cardiovascular: Denies chest pain, claudication, dyspnea on exertion, edema, lightheadedness, orthopnea, palpitations, paroxysmal nocturnal dyspnea, rapid heart rate, syncope or other Respiratory/Chest Respiratory/Chest: Denies cough, dyspnea, excessive phlegm production, hemoptysis, productive cough, shortness of breath at rest, shortness of breath with exertion, wheezing or other Gastrointestinal Gastrointestinal: Denies abdominal pain, coffee ground emesis, constipation, diarrhea, dyspepsia, hematemesis, hematochezia, loose stools, melena, nausea, vomiting or other Genitourinary Genitourinary: Denies burning urination, difficulty urinating, dysuria, hematuria, nocturia, urinary frequency, urinary hesitancy, urinary incontinence, urinary urgency or other Musculoskeletal Musculoskeletal: Reports back pain; Denies arthralgias, joint pain, joint stiffness, joint swelling, myalgias, neck pain or other Neurologic Neurologic: Denies abnormal gait, abnormal speech, confusion, disequilibrium, dizziness, focal weakness, headache(s), numbness, paresthesias, seizure-like activity, seizures, syncope, tingling, tremor(s) or other Psychiatric Psychiatric: Denies anxiety, depression, homicidal ideation, suicidal ideation or other Endocrine Endocrinology: Denies change in body appearance, cold intolerance, excessive sweating, heat intolerance, polydipsia, polyuria or other Hematologic/Ly (more content not included)... Normal [facility] Hematocrit Auto (Bld) [Volum e fraction]Ordered By: Allan Jc on 05-03-2025 Hematocrit (Bld) [Volume fraction] 41.1 % 40-54 [facility] Hemoglobin A1con 05-03-2025 HbA1c (Bld) [Mass fraction] 6.0 % High <=5.6 [facility] Comment on above: Result Comment: Norm al < 5.7 % Prediabetic 5.7 - 6.4 % Diabetic >or= 6.5 % Please note range changes. Performed By: #### L 500.4050, L501.5200 #### [facility] [place], [place], [address] Hemoglobin A1c percentageOrd ered By: Allan Jc on 05-03-2025 HbA1c (Bld) [Mass fraction] 6.0 % High <5.7 [facility] Comment on above: Normal < 5.7 % Predi abetic 5.7 - 6.4 % Diabetic >or= 6.5 % Please note range changes. Hemoglobin measurementOrdere d By: Allan Jc on 05-03-2025 Hemoglobin (Bld) [Mass/Vol] 14.8 g/dL 13.0-16.5 [facility] Immature granulocytes/100 WB C Auto (Bld)Ordered By: Allan Jc on 05-03-2025 Immature granulocytes/100 WBC (Bld) 0.600 % 0.0-0.9 [facility] Comment on above: IG% - Immature Granu locytes (promyelocytes, myelocytes and metamyelocytes) > 1% indicates that a LEFT SHIFT is Present. Ketones Test strip Ql (U)Ord ered By: Meseret Minor on 05-03-2025 Ketones Ql (U) Negative Negative [facility] L499.0042on 05-03-2025 Trop T High Sen 9 ng/L Normal <=22 [facility] Comment on above: Performed By: #### L 500.4050, L501.5200 #### [facility] [address] [place], [address] L499.0043on 05-03-2025 Trop T High Sen 9 ng/L Normal <=22 [facility] Comment on above: Performed By: #### L 499.0043 #### [facility] [address] [place], [address] L501.4021on 05-03-2025 Trop T High Sen 9 ng/L Normal <=22 [facility] Comment on above: Performed By: #### L 500.4050, L501.5200 #### [facility] [address] [place], [address] L509.6002on 05-03-2025 CORTISOL 7.33 ug/dL Normal 2.68-10.50 [facility] Comment on above: Performed By: #### L 501.5500, L501.7400 #### [facility] [place], [address] MCV (mean corpuscular volume ) determinationOrdered By: Allan Jc on 05-03-2025 MCV (RBC) [Entitic vol] 81.2 fL 80-94 [facility] Mean corpuscular hemoglobin (MCH) determinationOrdered By: Allan Jc on 05-03-2025 MCH (RBC) [Entitic mass] 29.2 pg 27.0-32.0 [facility] Mean corpuscular hemoglobin concentration (MCHC) determinationOrdered By: Allan cJ on 05-03-2025 MCHC (RBC) [Mass/Vol] 36.0 g/dL 32-36 [facility] Mean platelet volume determi nationOrdered By: Allan Jc on 05-03-2025 Platelet mean volume (Bld) [Entitic vol] 9.0 fL 6.2-12.0 [facility] Microscopic analysis of urin e for red blood cells (RBC)Ordered By: Meseret Minor on 05-03-2025 Microscopic analysis of urine for red blood cells (RBC) 0 SEEN /hpf 0-5 [facility] Monocyte percentageOrdered B y: Allan Jc on 05-03-2025 Monocytes/100 WBC (Bld) 6.7 % 0-10 [facility] Mucus LM Ql (Urine sed)Order ed By: Meseret Minor on 05-03-2025 Mucus Ql (Urine sed) 0 SEEN /hpf [facility] Neutrophil percentageOrdered By: Allan Jc on 05-03-2025 Neutrophils/100 WBC (Bld) 76.5 % High 47-70 [facility] Nitrite Test strip Ql (U)Ord ered By: Meseret Minor on 05-03-2025 Nitrite Ql (U) Negative Negative [facility] No Panel InformationOrdered By: Meseret Minor on 05-03-2025 Urine Buprenorphine Qualitative Negative < 200 ng/mL [facility] Urine Oxycodone Screen Negative < 100 ng/mL [facility] Nucleated red blood cell per centageOrdered By: Allan Jc on 05-03-2025 Nucleated RBC/100 WBC (Bld) [Ratio] 0 % 0-5 [facility] Osmolality urOrdered By: Magalie Minor on 05-03-2025 Osmolality (U) [Osmolality] 181 mOsm/KG >50 [facility] Comment on above: Normal Urine Referen ce Ranges Random: 50 - 1200 mOsm/kg H20 depending on fluid intake Random: >850 mOsm/kg after 12 hour fluid restriction 24 hour: ~300 - 900 mOsm/kg H2O Osmolality, Serumon 05-03-20 25 OSMOLALITY,SER 253 mOsm/KG Low 275-295 [facility] Comment on above: Performed By: #### L 500.4050, L501.5200 #### [facility] [address] [place], [place], [address] Platelet countOrdered By: Osiel Jc on 05-03-2025 Platelets (Bld) [#/Vol] 313 10*3/uL 150-450 [facility] Potassium measurement (mass/ volume)Ordered By: Allan Jc on 05-03-2025 Potassium (Unsp spec) [Mass/Vol] 4.5 mmol/L 3.3-5.1 [facility] Protein Test strip Ql (U)Ord ered By: Meseret Minor on 05-03-2025 Protein Ql (U) 15 mg/dl High Negative [facility] Quantitative urine opiates m easurementOrdered By: Meseret Minor on 05-03-2025 Opiates Ql (U) Negative < 300 ng/mL [facility] RBC Auto (Bld) [#/Vol]Ordere d By: Allan Jc on 05-03-2025 RBC (Bld) [#/Vol] 5.06 10*6/uL 4.6-6.2 [facility] Screening urine fentanyl cem surementOrdered By: Meseret Minor on 05-03-2025 fentaNYL Screen Ql (U) Negative [facility] Serum creatinine measurement (mass/volume)Ordered By: Allan Jc on 05-03-2025 Creatinine [Mass/Vol] 0.74 mg/dL 0.70-1.20 [facility] Serum glucose measurement (m ass/volume)Ordered By: Allan Jc on 05-03-2025 Glucose [Mass/Vol] 113 mg/dL High 70-99 [facility] Serum or plasma calcium pepe urement (mass/volume)Ordered By: Allan Jc on 05-03-2025 Calcium [Mass/Vol] 9.1 mg/dL 7.6-11.0 [facility] Serum or plasma cortisol cem surement (mass/volume)Ordered By: Meseret Minor on 05-03-2025 Cortisol [Mass/Vol] 7.33 ug/dL 2.68-10.50 [facility] Serum or plasma urea nitroge n measurement (mass/volume)Ordered By: Allan Jc on 05-03-2025 Urea nitrogen [Mass/Vol] 5 mg/dL 4-19 [facility] Serum or plasma uric acid me asurement (mass/volume)Ordered By: Meseret Minor on 05-03-2025 Urate [Mass/Vol] 3.1 mg/dL Low 3.5-7.2 [facility] Comment on above: The drugs N-Acetylcy steine and Metamizole may falsely depress this assay. Sodium levelOrdered By: Michael Jc on 05-03-2025 Sodium [Moles/Vol] 119 mmol/L Low 133-145 [facility] Comment on above: Critical Result(s) C alled at: 1620 by: SARA to Adin MATA. Results read back by same. Squamous epithelial cells de tection in urine sediment by light microscopyOrdered By: Meseret Minor on 05-03-2025 Epithelial cells.squamous LM Ql (Urine sed) 0 SEEN /hpf 0-5 [facility] T4 Free Directon 05-03-2025 T4 FREE DIRECT 1.30 ng/dL Normal 0.76-1.46 [facility] Comment on above: Performed By: #### L 500.4050, L501.5200 #### [facility] [address] [place], [address] T4 freeOrdered By: Allan silva on 05-03-2025 Free T4 [Mass/Vol] 1.30 ng/dL 0.76-1.46 [facility] Free T4 [Mass/Vol] 1.30 ng/dL 0.76-1.46 [facility] TSH DL <= 0.005 mIU/L QnOrde red By: Meseret Minor on 05-03-2025 TSH Qn 0.950 uIU/mL 0.300-4.200 [facility] TSH DL <= 0.005 mIU/L QnOrde red By: Allan Jc on 05-03-2025 TSH Qn 1.050 uIU/mL 0.300-4.200 [facility] Thyroid Stim Hormone (TSH)on 05-03-2025 TSH 0.950 uIU/mL Normal 0.300-4.200 [facility] Comment on above: Performed By: #### L 501.5500, L501.7400 #### [facility] [address] [place], [address] TSH 1.050 uIU/mL Normal 0.300-4.200 [facility] Comment on above: Performed By: #### L 500.4050, L501.5200 #### [facility] [address] [place], [address] Troponin T.cardiac [Mass/vol ume] in Serum or Plasma by High sensitivity methodOrdered By: Allan Jc on 05-03-2025 Troponin T.cardiac High sensitivity method [Mass/Vol] 9 ng/L <22 [facility] Troponin T.cardiac High sensitivity method [Mass/Vol] 9 ng/L <22 [facility] Troponin T.cardiac High sensitivity method [Mass/Vol] 9 ng/L <22 [facility] Uric Acidon 05-03-2025 URIC 3.1 mg/dL Low 3.5-7.2 [facility] Comment on above: Result Comment: The drugs N-Acetylcysteine and Metamizole may falsely depress this assay. Performed By: #### L 501.5500, L501.7400 #### [facility] [address] [place], [place], [id number] Urinalysis, Completeon 05-03 BACTERIA 0 SEEN Normal None Seen [facility] Comment on above: Order Comment: CLEAN CATCH Performed By: #### L 400.0001 #### [facility] [address] [place], [address] EPI,SQUAMOUS 0 SEEN Normal 0-5 [facility] Comment on above: Order Comment: CLEAN CATCH Performed By: #### L 400.0001 #### [facility] [address] [place], [address] Mucus Ql (Urine sed) 0 SEEN Normal [facility] Comment on above: Order Comment: CLEAN CATCH Performed By: #### L 400.0001 #### [facility] [address] [place], [address] RBC 0 SEEN Normal 0-5 [facility] Comment on above: Order Comment: CLEAN CATCH Performed By: #### L 400.0001 #### [facility] [address] [place], [address] WBC 0 SEEN Normal 0-5 [facility] Comment on above: Order Comment: CLEAN CATCH Performed By: #### L 400.0001 #### [facility] [address] [place], [address] Urine benzodiazepine levelOr dered By: Meseret Minor on 05-03-2025 Benzodiazepines Ql (U) Negative < 200 ng/mL [facility] Urine clarityOrdered By: Magalie Minor on 05-03-2025 Clarity (U) Clear Clear [facility] Urine cocaine levelOrdered B y: Meseret Minor on 05-03-2025 Cocaine Ql (U) Negative < 300 ng/mL [facility] Urine color determinationOrd ered By: Meseret Minor on 05-03-2025 Color (U) Yellow Yellow [facility] Urine kafiu-4-irvprqtpzijsam abinol (THC) measurementOrdered By: Meseret Minor on 05-03-2025 Cannabinoids Screen Ql (U) Negative < 50 ng/mL [facility] Urine glucose detectionOrder ed By: Meseret Minor on 05-03-2025 Glucose Ql (U) Normal mg/dl Normal [facility] Urine leukocyte esterase det ection by dipstickOrdered By: Meseret Minor on 05-03-2025 Leukocyte esterase Test strip Ql (U) Negative Negative [facility] Urine pHOrdered By: Meseret Minor on 05-03-2025 pH (U) 7.0 [pH] 5.0 - 8.0 [facility] Urine phencyclidine (PCP) de tectionOrdered By: Meseret Minor on 05-03-2025 Phencyclidine Ql (U) Negative < 25 ng/mL [facility] Urine sediment bacteria coun t by microscopy (number/high power field)Ordered By: Meseret Minor on 05-03-2025 Bacteria LM.HPF (Urine sed) [#/Area] 0 /[HPF] None Seen [facility] Urine sodium measurement (mo les/volume)Ordered By: Meseret Minor on 05-03-2025 Sodium (U) [Moles/Vol] 33 mmol/L Not Establ. [facility] Urine specific gravity measu rementOrdered By: Meseret Minor on 05-03-2025 Specific gravity (U) [Rel density] 1.010 1.002-1.030 [facility] Urine urobilinogen measureme ntOrdered By: Meseret Minor on 05-03-2025 Urobilinogen Ql (U) Normal mg/dl Normal [facility] White blood cell (WBC) count Ordered By: Allan Jc on 05-03-2025 WBC (Bld) [#/Vol] 11.6 10*3/uL High 4.4-11.0 [facility] White blood cell countOrdere d By: Meseret Minor on 05-03-2025 White blood cell count 0 SEEN /hpf 0-5 [facility] Absolute lymphocyte countOrd ered By: Suzette Jay on 02-04-2024 Lymphocytes Auto (Unsp spec) [#/Vol] 2.33 10*3/uL 0.83-4.51 [facility] Automated lymphocyte count a s percentage of total leukocytesOrdered By: Suzette Jay on 02-04-2024 Lymphocytes/100 WBC Auto (Unsp spec) 15.5 % 19-41 [facility] Basophil percentageOrdered B y: Suzette Jay on 02-04-2024 Basophils/100 WBC (Bld) 0.8 % 0-1 [facility] Chloride [Moles/Vol] 102 mmol/L 98-107 [facility] Eosinophils/100 WBC (Bld) 0.1 % 0-5 [facility] Glucose [Mass/Vol] 99 mg/dL 74-106 [facility] Hemoglobin (Bld) [Mass/Vol] 16.0 g/dL 13.0-16.5 [facility] Monocytes/100 WBC (Bld) 10.0 % 0-10 [facility] Neutrophils (Bld) [#/Vol] 11.0 10*3/uL 2.0-7.7 [facility] Neutrophils/100 WBC (Bld) 73.1 % 47-70 [facility] Potassium [Moles/Vol] 3.8 mmol/L 3.5-5.1 [facility] Sodium [Moles/Vol] 138 mmol/L 136-145 [facility] WBC (Bld) [#/Vol] 15.0 10*3/uL 4.4-11.0 [facility] Determination of erythrocyte mean corpuscular volume (MCV)Ordered By: Suzette Jay on 02-04-2024 MCV (RBC) [Entitic vol] 86.6 fL 80-94 [facility] Erythrocyte distribution wid th ratioOrdered By: Suzette Jay on 02-04-2024 Erythrocyte distribution width (RBC) [Ratio] 13.0 % 11.6-14.6 [facility] Erythrocyte distribution wid th standard deviationOrdered By: Suzette Jay on 02-04-2024 Erythrocyte distribution width (RBC) [Entitic vol] 40.7 fL 35.1-43.9 [facility] Hematocrit Auto (Bld) [Volum e fraction]Ordered By: Suzette Jay on 02-04-2024 Hematocrit (Bld) [Volume fraction] 46.5 % 40-54 [facility] Immature granulocytes/100 WB C Auto (Bld)Ordered By: Suzette Jay on 02-04-2024 Immature granulocytes/100 WBC (Bld) 0.500 % 0.0-0.9 [facility] Comment on above: IG% - Immature Granu locytes (promyelocytes, myelocytes and metamyelocytes) > 1% indicates that a LEFT SHIFT is Present. Laboratory - Chemistry and C hemistry - challengeOrdered By: Suzette Jay on 02-04-2024 CO2 [Moles/Vol] 25.0 mmol/L 21.0-32.0 [facility] Urea nitrogen/Creatinine [Mass ratio] 10.5 mg/mg 10-20 [facility] - Drug toxicology Ordered By: Suzette Jay on 02-04-2024 Amphetamines Ql (U) Positive <1000 ng/mL [facility] Benzodiazepines Ql (U) Negative < 200 ng/mL [facility] Cannabinoids Screen Ql (U) Negative < 50 ng/mL [facility] Cocaine Ql (U) Negative < 300 ng/mL [facility] Opiates Ql (U) Negative < 300 ng/mL [facility] - Hematology and Cell countsOrdered By: Suzette Jay on 02-04-2024 MCH (RBC) [Entitic mass] 29.8 pg 27.0-32.0 [facility] MCHC (RBC) [Mass/Vol] 34.4 g/dL 32-36 [facility] Nucleated RBC/100 WBC (Bld) [Ratio] 0 % 0-5 [facility] Platelet mean volume (Bld) [Entitic vol] 10.6 fL 6.2-12.0 [facility] Platelets (Bld) [#/Vol] 298 10*3/uL 150-450 [facility] No Panel InformationOrdered By: Suzette Jay on 02-04-2024 Estimated Creatinine Clearance Calc 122.02 ml/min [facility] Estimated GFR (MDRD) Amer 106 mL/min >60 [facility] Comment on above: GFR Calc Estimated GFR (MDRD) Non-Af Amer 87 mL/min >60 [facility] Comment on above: Non- GFR Calc Ethyl Alcohol Level < 3.0 mg/dL [facility] Comment on above: The serum:whole bloo d ethanol ratio is approximately 1.14and varies slightly with hematocrit. Medical Alcohol reference interval and critical value innon-tolerant individuals; 50 - 100 Impairment 100 Intoxication 100 - 250 Severe Poisoning 250 - 400 Deep/possible fatal coma MDMA (Ecstasy) Screen Positive < 500 ng/mL [facility] Urine Barbiturates Screen Negative < 200 ng/mL [facility] Urine Drug Screen Comment [facility] Comment on above: CONFIRMATORY TESTING FOR ALL [...] Methadone Screen Negative < 300 ng/mL [facility] RBC Auto (Bld) [#/Vol]Ordere d By: Suzette Jay on 02-04-2024 RBC (Bld) [#/Vol] 5.37 10*6/uL 4.6-6.2 [facility] Serum or plasma calcium pepe urement (mass/volume)Ordered By: Suzette Jay on 02-04-2024 Calcium [Mass/Vol] 9.0 mg/dL 8.5-10.1 [facility] Serum or plasma creatinine m easurement (mass/volume)Ordered By: Suzette Jay on 02-04-2024 Creatinine [Mass/Vol] 0.95 mg/dL 0.70-1.30 [facility] Comment on above: The validity of the calculated GFR & GFRAA in patients over 70 years has not been determined. Clinical correlation is essential. Serum or plasma urea nitroge n measurement (mass/volume)Ordered By: Suzette Jay on 02-04-2024 Urea nitrogen [Mass/Vol] 10 mg/dL 7-18 [facility] Thin prep Papanicolaou smear with manual screeningOrdered By: Suzette Jay on 02-04-2024 Thin prep Papanicolaou smear with manual screening 11 5-15 [facility] Urine phencyclidine (PCP) de tectionOrdered By: Suzette Jay on 03-10-2024 Phencyclidine Ql (U) Negative < 25 ng/mL [facility] BNPon 11-15-2022 Natriuretic peptide B (Bld) [Mass/Vol] 109 pg/mL High 0 - 99 [facility] Comment on above: Result Comment: . <1 00 pg/mL - Heart failure unlikely 100-299 pg/mL - Intermediate probability of acute heart . failure exacerbation. Correlate with clinical . context and patient history. >=300 pg/mL - Heart Failure likely. Correlate with clinical . context and patient history. BNP testing is performed using different testing methodology at [facility] than at other [facility]. Direct result comparisons should only be made within the same method. Performed By: #### B NP2 #### [address] [address] CBC AND DIFFERENTIALon 11-15 % AUTOMATED IMMATURE GRAN 0.4 % Normal 0.0 - 0.9 [facility] Comment on above: Result Comment: Hanna ture Granulocyte Count (IG) includes promyelocytes, myelocytes and metamyelocytes but does not include bands. Percent differential counts (%) should be interpreted in the context of the absolute cell counts (cells/L). Performed By: #### C BCDF #### [address] [address] Basophils (Bld) [#/Vol] 0.02 10*3/uL Normal 0.00 - 0.1 0 [facility] Comment on above: Performed By: #### C BCDF #### [address] [address] Basophils/100 WBC (Bld) 0.1 % Normal 0.0 - 2.0 [facility] on above: Performed By: #### C BCDF #### [address] [address] Lymphocytes (Bld) [#/Vol] 1.94 10*3/uL Normal 1.20 - 4.80 [facility] Comment on above: Performed By: #### C BCDF #### [address] [address] Lymphocytes/100 WBC (Bld) 14.5 % Normal 13.0 - 44.0 [facility] Comment on above: Performed By: #### C BCDF #### [address] [address] Monocytes (Bld) [#/Vol] 1.27 10*3/uL High 0.10 - 1.0 0 [facility] Comment on above: Performed By: #### C BCDF #### [address] [address] Monocytes/100 WBC (Bld) 9.5 % Normal 2.0 - 10.0 R obinson/[facility] Comment on above: Performed By: #### C BCDF #### [address] [address] Neutrophils (Bld) [#/Vol] 10.08 10*3/uL High 1.20 - 7.70 [facility] Comment on above: Performed By: #### C BCDF #### [address] [address] Neutrophils/100 WBC (Bld) 75.5 % Normal 40.0 - 80.0 [facility] Comment on above: Performed By: #### C BCDF #### [address] [address] Erythrocyte distribution width (RBC) [Ratio] 13.5 % Normal 11.5 - 14.5 [facility] Comment on above: Performed By: #### C BCDF #### [address] [address] Hematocrit (Bld) [Volume fraction] 39.4 % Low 41.0 - 52.0 [facility] Comment on above: Performed By: #### C BCDF #### [address] [address] Hemoglobin (Bld) [Mass/Vol] 13.9 g/dL Normal 13.5 - 17.5 [facility] Comment on above: Performed By: #### C BCDF #### [address] [address] MCHC (RBC) [Mass/Vol] 35.3 g/dL Normal 32.0 - 36.0 Ro [facility]inson[facility] Comment on above: Performed By: #### C BCDF #### [address] [address] MCV (RBC) [Entitic vol] 84 fL Normal 80 - 100 [facility]inson[facility] Comment on above: Performed By: #### C BCDF #### [address] [address] Platelets (Bld) [#/Vol] 225 10*3/uL Normal 150 - 450 [facility] Comment on above: Performed By: #### C BCDF #### [address] [address] RBC 4.68 x10E12/L Normal 4.50 - 5.90 [facility] Comment on above: Performed By: #### C BCDF #### [address] [address] WBC (Bld) [#/Vol] 13.4 10*3/uL High 4.4 - 11.3 [facility] Comment on above: Performed By: #### C BCDF #### [address] [address] COMPREHENSIVE PANELon 2021 Albumin [Mass/Vol] 3.9 g/dL Normal 3.4 - 5.0 [place] [facility] Comment on above: Performed By: #### C MP #### [address] [address] ALP [Catalytic activity/Vol] 57 U/L Normal 33 - 120 [facility] Comment on above: Performed By: #### C MP #### [address] [address] ALT [Catalytic activity/Vol] 21 U/L Normal 10 - 52 [facility] Comment on above: Result Comment: Suly ents treated with Sulfasalazine may generate falsely decreased results for ALT. Performed By: #### C MP #### [address] [address] Anion gap [Moles/Vol] 14 mmol/L Normal 10 - 20 Josh inson/[facility] Comment on above: Performed By: #### C MP #### [address] [address] AST [Catalytic activity/Vol] 51 U/L High 9 - 39 [facility] Comment on above: Performed By: #### C MP #### [address] [address] Bilirubin [Mass/Vol] 0.9 mg/dL Normal 0.0 - 1.2 [place] [facility] Comment on above: Performed By: #### C MP #### [address] [address] Calcium [Mass/Vol] 8.8 mg/dL Normal 8.6 - 10.3 [place] [facility] Comment on above: Performed By: #### C MP #### [address] [address] Chloride [Moles/Vol] 95 mmol/L Low 98 - 107 [place] [facility] Comment on above: Performed By: #### C MP #### [address] [address] Creatinine [Mass/Vol] 0.93 mg/dL Normal 0.50 - 1.30 Ro binson[facility] Comment on above: Performed By: #### C MP #### [address] [address] eGFR MALE >90 Normal >90 [facility] Comment on above: Result Comment: CALC ULATIONS OF ESTIMATED GFR ARE PERFORMED USING THE 2020 CKD-EPI STUDY REFIT EQUATION WITHOUT THE RACE VARIABLE FOR THE IDMS-TRACEABLE CREATININE METHODS. https://jasn.asnjournals.org/content//ASN.2020 709477 Performed By: #### C MP #### [address] [address] Glucose [Mass/Vol] 120 mg/dL High 74 - 99 [place] [facility] Comment on above: Performed By: #### C MP #### [address] [address] HCO3 (Bld) [Moles/Vol] 27 mmol/L Normal 21 - 32 Ro binson/[facility] Comment on above: Performed By: #### C MP #### [address] [address] Potassium [Moles/Vol] 3.3 mmol/L Low 3.5 - 5.3 Josh inson/[facility] Comment on above: Performed By: #### C MP #### [address] [address] Protein [Mass/Vol] 7.4 g/dL Normal 6.4 - 8.2 [place] on/[facility] Comment on above: Performed By: #### C MP #### [address] [address] Sodium [Moles/Vol] 133 mmol/L Low 136 - 145 [place] [facility] Comment on above: Performed By: #### C MP #### [address] [address] Urea nitrogen [Mass/Vol] 8 mg/dL Normal 6 - 23 [facility] Comment on above: Performed By: #### C MP #### [address] [address] Covid 19 Resultson 2 SARS-CoV-2 (COVID-19) RNA [...] contacted by the [facility] to see if any of your close [...] or Naproxen (Aleve) can also be used. Zzwa-znx-hitrtui cough and cold medicines can be used according to the instructions on the package. Some xtbz-jin-nvkfgxt medicines also contain acetaminophen. Make sure you [...] water are not available, use alcohol-based hand shredding specialist. Avoid touching your eyes, nose, and mouth [...] 24 dallin (more content not included)... Normal [facility] EMR ADDONon 11-15-2022 ADDON CONFIRMATION REQUEST REC'D Normal Josh inson/[facility] Comment on above: Performed By: #### C OINP #### [place] [address] INFLUENZA A/B, COVID 2019 PC R,SYMPTOMATICon 11-15-2022 INFLUENZA A, PCR Detected Abnormal Not Detected [facility] Comment on above: Result Comment: Resp iratory virus testing is performed routinely by PCR for Influenza A/B and RSV. Not Detected results do not preclude Influenza A/B or RSV infections since the adequacy of sample collection or low viral burden may impact the clinical sensitivity of this test method. Performed By: #### C OINP #### [place] [address] INFLUENZA B, PCR Not detected Normal Not Detected [facility] Comment on above: Result Comment: Resp iratory virus testing is performed routinely by PCR for Influenza A/B and RSV. Not Detected results do not preclude Influenza A/B or RSV infections since the adequacy of sample collection or low viral burden may impact the clinical sensitivity of this test method. Performed By: #### C OINP #### [place] [address] Lab Specimen Source Nasal, Nasopharyngeal Normal [facility] Comment on above: Performed By: #### C OINP #### [place] [address] SARS-CoV-2 (COVID-19) RNA LEROY+probe Ql (Unsp spec) Not detected Normal Not Detected [facility] Comment on above: Result Comment: . This test has received FDA Emergency Use Authorization (EUA) and has been verified by [facility]. This test is only authorized for the duration of time that circumstances exist to justify the authorization of the emergency use of in vitro diagnostic tests for the detection of SARS-CoV-2 virus and/or diagnosis of COVID-19 infection under section 564(b)(1) of the Act, 21 U.S.C. 360bbb-3(b)(1), unless the authorization is terminated or revoked sooner. [facility] is certified under CLIA-88 as qualified to perform high complexity testing. Testing is performed in the [facility] laboratory located at [address] [place] [address]. SARS-CoV-2/Flu/RSV Multiplex Test: Fact sheet for providers: https://www.fda.gov/media/101308/download Fact sheet for patients: https://www.fda.gov/media/959035/download Performed By: #### C OINP #### [address] [address] PT/INRon 11-15-2022 PT Coag (PPP) [Time] 14.2 s High 9.8 - 13.4 [facility] Comment on above: Performed By: #### P TINR #### [address] [address] PT, INR 1.2 High 0.9 - 1.1 [facility] Comment on above: Performed By: #### P TINR #### [address] [address] Provider Note - ED v3on 10-28 Provider [...] limitation. No acute ST elevation is identified. IN interval is 171 and QTc is 460. [...] 76 11-14-2022 22: Respirations (breaths/min): 24 11-14-2022 22: SpO2 (%): 96 11-14-2022 22:29 BP Systolic (mm Hg): 123 11-14-2022 22: BP Diastolic (mm Hg): 80 11-14-2022 22:29 [...] 13.9 Anion (more content not included)... Normal [facility] RED CELL MORPHOLOGYon 2021 RBC morphology finding Nom (Bld) SEE COMMENT Normal [facility] Comment on above: Result Comment: NO S IGNIFICANT RBC ABNORMALITIES SEEN ON SMEAR REVIEW. Performed By: #### M ORP2 #### [facility] [address] [place] [address] TROPONIN I, HIGH SENSITIVITY on 11-15-2022 TROPONIN I, HIGH SENSITIVITY Canceled Normal [facility] Comment on above: Order Comment: TEST TROPONIN [...] performed using a different testing methodology at [facility] than at other [facility]. Direct result comparisons should only be made within the same method. Performed By: #### C OI #### [facility] [address] [place] [address] TROPONIN I, HIGH SENSITIVITY 14 ng/L Normal 0 - 20 [facility] Comment on above: Result Comment: [...] performed using a different testing methodology at [facility] than at other [facility]. Direct result comparisons should only be made within the same method. Performed By: #### T [facility] #### [facility] [address] [place] [address] Triage - EDon 11-15-2022 Triage - ED Quick Triage: The patient and/or guardian verbally acknowledges placement for services into the following (when Urgent Care Service hours are operating):emergency department Chart Review: ARRIVAL INFORMATION Means of Arrival: Ambulatory Mode of Arrival: private vehicle Arrival From: home Accompanied By: self Language: Spoken Language Preferred: Kenyan Reading Language Preferred: Kenyan CHIEF COMPLAINT LYNNETTE GONG is a Male [...] 14-Nov-2022 22:36 by Dana Aguirre (RN) Normal [facility] UA MICROSCOPICon 11-15-2022 RBC 4 /HPF Normal 0-5 [facility] Comment on above: Performed By: #### U AMIC #### [address] [address] WBC 2 /HPF Normal 0-5 [facility] Comment on above: Performed By: #### U AMIC #### [address] [address] URINALYSISon 11-15-2022 Appearance (U) Clear Normal CLEAR [facility] Comment on above: Performed By: #### C OINP #### [address] [address] Bilirubin Ql (U) Negative Normal NEGATIVE [facility] Comment on above: Performed By: #### C OINP #### [address] [address] Color (U) Yellow Normal STRAW,YELLO W [facility] Comment on above: Performed By: #### C OINP #### [address] [address] Glucose Ql (U) Negative Normal NEGATIVE [facility] Comment on above: Performed By: #### C OINP #### [address] [address] Hemoglobin Ql (U) SMALL(1+) Abnormal NEGATIVE [place] Comment on above: Performed By: #### C OINP #### [address] [address] Ketones Ql (U) 5(Trace) mg/dl Abnormal NEGATIVE [place] [facility] Comment on above: Performed By: #### C OINP #### [address] [address] Leukocyte esterase Test strip Ql (U) Negative Normal NEGATIVE [facility] Comment on above: Performed By: #### C OINP #### [address] [address] Nitrite Ql (U) Negative Normal NEGATIVE [facility] Comment on above: Performed By: #### C OINP #### [place] [address] pH (U) 6.0 [pH] Normal 5.0 - 8.0 [facility] Comment on above: Performed By: #### C OINP #### [place] [address] Protein Ql (U) 100(2+) Abnormal NEGATIVE [facility] Comment on above: Performed By: #### C OINP #### [place] [address] Specific gravity (U) [Rel density] 1.021 Normal 1.005 - 1.035 [facility] Comment on above: Performed By: #### C OINP #### [place] [address] Urobilinogen (U) [Mass/Vol] 4.0 mg/dL High 0.0 - 1.9 [facility] Comment on above: Result Comment: SOME PIGMENTS AND MEDICATIONS MAY CAUSE A FALSE POSITIVE UROBILINOGEN Performed By: #### C OINP #### [address] [address] VENOUS FULL PANELon 12-20-20 22 Anion gap [Moles/Vol] 12 mmol/L Normal 10 - 25 [facility] Comment on above: Performed By: #### V FPA4 #### [place] [id number] BASE EXCESS-BLOOD 3.2 mmol/L High -2.0 - 3.0 [facility] Comment on above: Performed By: #### V FPA4 #### [address] [address] BICARB, CALCULATED 28.5 mmol/L High 22.0 - 26.0 [facility] Comment on above: Performed By: #### V FPA4 #### [address] [address] CALCIUM,IONIZED 1.13 mmol/L Normal 1.10 - 1.33 [place] [facility] Comment on above: Performed By: #### V FPA4 #### [address] [address] Chloride [Moles/Vol] 94 mmol/L Low 98 - 107 [facility] Comment on above: Performed By: #### V FPA4 #### [address] [address] Glucose [Mass/Vol] 128 mg/dL High 74 - 99 [place] [facility] Comment on above: Performed By: #### V FPA4 #### [address] [address] Hematocrit (Bld) [Volume fraction] 42.0 % Normal 41.0 - 52.0 [facility] Comment on above: Performed By: #### V FPA4 #### [address] [address] Hemoglobin (Bld) [Mass/Vol] 13.9 g/dL Normal 13.5 - 17.5 [facility] Comment on above: Performed By: #### V FPA4 #### [address] [address] Lactate [Moles/Vol] 1.1 mmol/L Normal 0.4 - 2.0 [place] son/[facility] Comment on above: Performed By: #### V FPA4 #### [address] [address] OXY HGB 51.7 % Normal 45.0 - 75.0 [facility] Comment on above: Performed By: #### V FPA4 #### [address] [address] Oxygen (Bld) [Partial pressure] 31 mm[Hg] Low 35 - 45 [facility] Comment on above: Performed By: #### V FPA4 #### [address] [address] PATIENT TEMPERATURE 37.0 degrees C Normal R obinson/[facility] Comment on above: Result Comment: NOTE : PATIENT RESULTS ARE NOT CORRECTED FOR TEMPERATURE. Performed By: #### V FPA4 #### [address] [address] PCO2 45 mmHg Normal 41 - 51 [facility] Comment on above: Performed By: #### V FPA4 #### [address] [address] pH (Bld) 7.41 [pH] Normal 7.33 - 7.43 [facility] Comment on above: Performed By: #### V FPA4 #### [address] [address] Potassium [Moles/Vol] 3.2 mmol/L Low 3.5 - 5.3 Josh inson/[facility] Comment on above: Performed By: #### V FPA4 #### [address] [address] SO2 53 % Normal 45 - 75 [facility] Comment on above: Performed By: #### V FPA4 #### [address] [address] Sodium [Moles/Vol] 131 mmol/L Low 136 - 145 [place] [facility] Comment on above: Performed By: #### V FPA4 #### [address] [address] Vital Signs Date Time Vital Sign Value Performing Clinician Adrianne block 06-10-2025 13:03-0400 Body height 170.[address] Allan Jc DO Work Phone: [facility] 06-10-2025 13:03-0400 Body mass index (BMI) [Ratio] 50.6 kg/m2 Dr. Allan Jc DO Work Phone: [facility] 06-10-2025 13:03-0400 Body temperature 98.4 [degF] Dr. Allan Jc DO Work Phone: [facility] 06-10-2025 13:03-0400 Body weight 146.[address] Allan Jc DO Work Phone: 2(368)669-893078 [place] [address] 06-10-2025 13:03-0400 Diastolic blood pressure 71 mm[Hg] Dr. Allan Jc DO Work Phone: 9(002)330-662978 [place] [address] 06-10-2025 13:03-0400 Heart rate 75 /min Dr. Allan Jc DO Work Phone: 6(807)388-930278 [place] [address] 06-10-2025 13:03-0400 Respiratory rate 18 /min Dr. Allan Jc DO Work Phone: 3(881)061-747078 [place] [address] 06-10-2025 13:03-0400 SaO2% (BldA) [Mass fraction] 96 % Dr. Allan Jc DO Work Phone: 8(352)689-804478 [place] [address] 06-10-2025 13:03-0400 Systolic blood pressure 110 mm[Hg] Dr. Allan Jc DO Work Phone: 9(521)930-838878 [place] [address] 05-12-2025 13:30-0400 Body height 170.[address] Allan Jc DO Work Phone: 2(427)584-474678 [place] [address] 05-12-2025 13:30-0400 Body mass index (BMI) [Ratio] 51.9 kg/m2 Dr. Allan Jc DO Work Phone: 3(885)696-688578 [place] [address] 05-12-2025 13:30-0400 Body temperature 97.2 [degF] Dr. Allan Jc DO Work Phone: 6(679)510-512578 [place] [address] 05-12-2025 13:30-0400 Body weight 150.[address] Allan Jc DO Work Phone: 9(498)161-311978 [place] [address] 05-12-2025 13:30-0400 Diastolic blood pressure 82 mm[Hg] Dr. Allan Jc DO Work Phone: 2(441)491-159778 [place] [address] 05-12-2025 13:30-0400 Heart rate 84 /min Dr. Allan Jc DO Work Phone: 5(332)987-369678 [place] [address] 05-12-2025 13:30-0400 Respiratory rate 18 /min Dr. Allan Jc DO Work Phone: 6(631)034-798378 [place] [address] 05-12-2025 13:30-0400 SaO2% (BldA) [Mass fraction] 97 % Dr. Allan Jc DO Work Phone: 4(062)059-072278 [place] [address] 05-12-2025 13:30-0400 Systolic blood pressure 148 mm[Hg] Dr. Allan Jc DO Work Phone: 0(063)698-273051 [place] [address] 05-05-2025 11:40-0400 Diastolic blood pressure 106 mm[Hg] Dr. Allan Jc DO Work Phone: 0(791)111-375678 [place] [address] 05-05-2025 11:40-0400 Heart rate 71 /min Dr. Allan Jc DO Work Phone: 8(739)591-258878 [place] [address] 05-05-2025 11:40-0400 Respiratory rate 18 /min Dr. Allan Jc DO Work Phone: 5(791)648-184278 [place] [address] 05-05-2025 11:40-0400 SaO2% (BldA) [Mass fraction] 96 % Dr. Allan Jc DO Work Phone: 4(186)962-360478 [place] [address] 05-05-2025 11:40-0400 Systolic blood pressure 140 mm[Hg] Dr. Allan Jc DO Work Phone: 9(279)250-761878 [place] [address] 05-05-2025 10:19-0400 SaO2% (BldA) [Mass fraction] 99 % Dr. Allan Jc DO Work Phone: 8(146)716-307878 [place] [address] 05-05-2025 08:45-0400 Body temperature 97.7 [degF] Dr. Allan Jc DO Work Phone: 4(917)123-056578 [place] [address] 05-05-2025 08:45-0400 Diastolic blood pressure 88 mm[Hg] Dr. Allan Jc DO Work Phone: 0(320)468-556678 [place] [address] 05-05-2025 08:45-0400 Heart rate 64 /min Dr. Allan Jc DO Work Phone: 1(841)843-462178 [place] [address] 05-05-2025 08:45-0400 Respiratory rate 20 /min Dr. Allan Jc DO Work Phone: 2(719)327-431078 [place] [address] 05-05-2025 08:45-0400 Systolic blood pressure 149 mm[Hg] Dr. Allan Jc DO Work Phone: 8(167)046-287078 [place] [address] 05-05-2025 03:46-0400 Body mass index (BMI) [Ratio] 47.7 kg/m2 Dr. Allan cJ DO Work Phone: 7(597)078-417378 [place] [address] 05-05-2025 03:46-0400 Body weight 146.[address] Allan Jc DO Work Phone: 1(114)090-753978 [place] [address] 05-03-2025 19:20-0400 Body height 175.[address] Allan Jc DO Work Phone: 5(087)414-109178 [place] [address] 05-03-2025 18:11-0400 Body temperature 98.1 [degF] Dr. Allan Jc DO Work Phone: 0(142)986-117578 [place] [address] 05-03-2025 18:11-0400 Diastolic blood pressure 89 mm[Hg] Dr. Allan Jc DO Work Phone: 8(070)377-603778 [place] [address] 05-03-2025 18:11-0400 Heart rate 73 /min Dr. Allan Jc DO Work Phone: 2(486)675-233378 [place] [address] 05-03-2025 18:11-0400 Respiratory rate 16 /min Dr. Allan Jc DO Work Phone: 0(694)417-462578 [place] [address] 05-03-2025 18:11-0400 SaO2% (BldA) [Mass fraction] 98 % Dr. Allan Jc DO Work Phone: 0(940)795-711278 [place] [address] 05-03-2025 18:11-0400 Systolic blood pressure 159 mm[Hg] Dr. Allan Jc DO Work Phone: [facility] 05-03-2025 15:37-0400 Body height 175.[address] Allan Jc DO Work Phone: [facility] 05-03-2025 15:37-0400 Body mass index (BMI) [Ratio] 48.4 kg/m2 Dr. Allan Jc DO Work Phone: [facility] 05-03-2025 15:37-0400 Body weight 148.[address] Allan Jc DO Work Phone: [facility] 02-04-2024 17:39-0400 Body height 175.26 cm [facility] 02-04-2024 17:39-0400 Body mass index (BMI) [Ratio] 44.4 kg/m2 [facility] 02-04-2024 17:39-0400 Body temperature 96.3 [degF] [facility] 02-04-2024 17:39-0400 Body weight 136.57 kg [facility] 02-04-2024 17:39-0400 Diastolic blood pressure 90 mm[Hg] [facility] 02-04-2024 17:39-0400 Heart rate 100 /min [facility] 02-04-2024 17:39-0400 Respiratory rate 22 /min [facility] 02-04-2024 17:39-0400 SaO2% (BldA) [Mass fraction] 100 % [facility] 02-04-2024 17:39-0400 Systolic blood pressure 149 mm[Hg] [facility] 09-20-2022 12:45-0400 Body height 177.8 cm [facility] Work Phone: 09-20-2022 12:45-0400 Body mass index (BMI) [Ratio] 44.4 kg/m2 [facility] Work Phone: 09-20-2022 12:45-0400 Body temperature 97.7 [degF] [facility] Work Phone: 09-20-2022 12:45-0400 Body weight 140.61 kg [facility] Work Phone: 09-20-2022 12:45-0400 Diastolic blood pressure 80 mm[Hg] [facility] Work Phone: 09-20-2022 12:45-0400 Heart rate 98 /min [facility] Work Phone: 09-20-2022 12:45-0400 Respiratory rate 18 /min [facility] Work Phone: 09-20-2022 12:45-0400 SaO2% (BldA) [Mass fraction] 96 % [facility] Work Phone: 09-20-2022 12:45-0400 Systolic blood pressure 160 mm[Hg] [facility] Work Phone: Encounters Encounter Date Encounter Type Care Provider Facility Start: 06-18-2025 ambulatory [facility] y:[facility] Start: 06-13-2025 ambulatory Anay Bull NP Facil ity:[facility] Start: 06-10-2025 End: 06-10-[address] Allan Jc DO Work Phone: -[facility] Start: 06-10-2025 End: 06-10-2025 Patient encounter procedure Anay Bull [employer] -[facility] Work Phone: Start: 06-03-2025 ambulatory Deborah Roa Facility:[facility] Start: 05-29-2025 End: 05-29-[address] Allan Jc DO Work Phone: -[facility]atory [facility] Start: 05-29-2025 End: 05-29-2025 Patient encounter procedure Deborah Roa [employer]C -[facility] Start: 05-29-2025 End: 05-29-2025 ambulatory Deborah Roa Facility:[facility] Start: 05-20-2025 End: 05-20-[address] Allan Jc DO Work Phone: -Laboratory [facility] Christina [facility] Start: 05-20-2025 End: 05-20-2025 Patient encounter procedure Deborah Roa [employer]C -[facility] Start: 05-20-2025 End: 05-20-20[facility] Start: 05-12-2025 End: 05-12-[address] Betty Steel MD -[facility] Work Phone: Start: 05-12-2025 End: 05-12-[address] Allan Jc DO Work Phone: [facility] Work Phone: Start: 05-05-2025 Non-patient / Non-visit Dr. Kevin cornelius [facility] Work Phone: Start: 05-04-2025 Non-patient / Non-visit Dr. Kevin Sweeney [facility] Work Phone: Start: 05-03-2025 Non-patient / Non-visit Dr. Meseret Minor DO -[facility] Work Phone: Start: 05-03-2025 ambulatory Deborah Roa Facility:[facility] Start: 05-03-2025 End: 05-05-2025 Evaluation and management of inpatient Dr. Meseret Minor DO -[facility] Work Phone: Start: 02-04-2024 End: 02-04-2024 Emergency department patient visit [facility] Work Phone: Start: 11-15-2022 End: 11-15-2022 Emergency department patient visit Dr. OSIRIS BARRETT Facility:[id number] Start: 09-20-2022 End: 09-20-2022 Emergency department patient visit [facility] Start: 03-09-2022 ambulatory Tony Altman Facility:[id number] Procedures Date Procedure Procedure Detail Performing Clinician Start: 05-05-[address] Allan Jc DO Work Phone: Start: 05-04-2025 Serum inorganic phos phate measurement Dr. Allan Jc DO Work Phone: Start: 05-03-2025 Methadone measuremen t, urine Dr. Allan Jc DO Work Phone: Start: 05-03-2025 Urnls dip stick/tabl et reagent auto microscopy Dr. Allan Jc DO Work Phone: Start: 05-03-2025 Osmolality measureme nt, serum Dr. Allan Jc DO Work Phone: Start: 05-03-2025 X-ray of chest, PA a nd lateral views Dr. Allan Jc DO Work Phone: Start: 05-03-[address] Allan Jc DO Work Phone: Plan of Treatment Date Care Activity Detail Author Start: 05-05-2025 Patient discharge [facility] Start: 05-03-2025 Following clinical pathway protocol [facility] Start: 05-03-2025 Assessment of risk of venous thromboembolism [facility] Start: 05-03-2025 Inhalation therapy procedure [facility] Start: 05-03-2025 Insertion of catheter into peripheral vein [facility] Start: 05-03-2025 Measuring intake and output [facility] Start: 05-03-2025 Oxygen therapy [facility] Start: 05-03-2025 Providing care according to standard [facility] Start: 05-03-2025 Referral to service [facility] Start: 05-03-2025 [facility] Start: 05-03-2025 Hospital admission, emergency, from emergency room, medical nature [facility] Start: 05-03-2025 Urinalysis complete panel - Urine [facility] Start: 05-03-2025 Verification routine [facility] Start: 05-03-2025 Admission procedure [facility] Start: 05-03-2025 Osmolality of Urine [facility] Start: 05-03-2025 Sodium [Moles/volume] in Urine [facility] Start: 05-03-2025 Osmolality measurement, serum [facility] Start: 05-03-2025 Thyroid stimulating hormone measurement [facility] Start: 05-03-2025 [facility] Start: 09-20-2022 Electrocardiographic procedure [facility] Work Phone: Amphetamines [Presen ce] in Urine by Screen method >1000 ng/mL [facility] Anion gap in Serum or Plasma [facility] Anion gap in Serum or Plasma [facility] Anion gap in Serum or Plasma [facility] Benzodiazepine measu rement, urine [facility] BUN/Creatinine ratio [facility] BUN/Creatinine ratio [facility] BUN/Creatinine ratio [facility] Calcium [Mass/volume ] in Serum or Plasma [facility] Calcium [Mass/volume ] in Serum or Plasma [facility] Calcium [Mass/volume ] in Serum or Plasma [facility] Carbon dioxide, tota l [Moles/volume] in Central venous blood [facility] Carbon dioxide, tota l [Moles/volume] in Central venous blood [facility] Carbon dioxide, tota l [Moles/volume] in Central venous blood [facility] Cocaine measurement, urine [facility] Cortisol [Mass/volum e] in Serum or Plasma [facility] Creatinine [Mass/vol ume] in Serum or Plasma [facility] Creatinine [Mass/vol ume] in Serum or Plasma [facility] Creatinine [Mass/vol ume] in Serum or Plasma [facility] CT Chest [facility] fentaNYL [Presence] in Urine by Screen method [facility] Glucose [Mass/volume ] in Serum or Plasma [facility] Glucose [Mass/volume ] in Serum or Plasma [facility] Glucose [Mass/volume ] in Serum or Plasma [facility] Measurement of renal function [facility] Measurement of renal function [facility] Measurement of renal function [facility] Methadone measurement, urine [facility] Patient Education ED Chest Pain, Uncertain Cause [facility] Work Phone: Patient referral [facility] Work Phone: Phencyclidine [Prese nce] in Urine [facility] Potassium measurement [facility] Potassium measurement [facility] Potassium measurement [facility] Serum chloride measurement [facility] Serum chloride measurement [facility] Serum chloride measurement [facility] Sodium measurement [facility] Sodium measurement [facility] Sodium measurement [facility] Troponin T.cardiac [Mass/volume] in Serum or Plasma by High sensitivity method [facility] Urate [Mass/volume] in Serum or Plasma [facility] Urea nitrogen [Mass/ volume] in Serum or Plasma [facility] Urea nitrogen [Mass/ volume] in Serum or Plasma [facility] Urea nitrogen [Mass/ volume] in Serum or Plasma [facility] Urine cannabinoid measurement [facility] Urine opiate measurement [facility] Payers Date Payer Category Payer Self-pay [id number] 2025 Medicare [id number] 1970 Unknown [id number] 2.16.8 [id number] 1970 Unknown [id number] 2.16.8 [id number] Medicaid [id number] Unknown [id number] Unknown [id number] 2.16.8 [id number] Unknown [id number] 2.16.8 [id number] Unknown [id number] 2.16.8 [id number] Unknown [id number] 2.16.8 [id number] Unknown [id number] 2.16.8 [id number] Unknown [id number] 2.16.8 [id number] Unknown [id number] 2.16.8 [id number] Unknown [id number] 2.16.8 [id number] Unknown [id number] 2.16.8 [id number] Unknown [id number] 2.16.8 [id number] Social History Date Type Detail Facility Start: 09-20-2022 End: 02-04-2024 Tobacco smoking status MIIS Unknown if ever smoked [facility] Start: 1970 Sex Assigned At Male [facility] Start: 05-03-2025 End: 06-10-2025 Tobacco smoking status NHIS Smokes tobacco daily (finding) [facility] Goals Date Patient Goal Desired Activity /State Functional Status Date Assessment Result Facility 05-05-2025 Functional status Ambulates;Up ad michael [facility] Work Phone: Mental Status Date Assessment Result Facility 05-05-2025 Cognitive function Voice/Name [facility] Work Phone: 05-03-2025 Cognitive function Level Of Cons ciousness Awake;Alert;Appropriate;Follow s Commands [facility] Work Phone: 02-04-2024 Cognitive function Level Of Cons ciousness Awake;Alert [facility] Work Phone: Clinical Notes 11-16-2022 to 05-05-2025 Note Date & Type Note Facility 05-05-2025 Discharge summary [facility] 05-05-2025 Note [facility] Medical Records Department [address] [place] [address] Discharge Summary 05/05/25 1004 MR#: [id number] Acct: [id number] Name: LYNNETTE GONG Rep #: [id number] : 1970 54 From: Kevin Singh DO PCP: UMAIR Taveras Status:ADM IN [id number] Prov[facility] Date of Admission: 05/03/25 Primary Care Physician: Deborah Crispin, [employer] Reason For Visit: HYPONATREMIA/HTN URGENCY Diagnosis Discharge Diagnosis (1) Hypertensive urgency: Status: Acute Code(s): I16.0 - Hypertensive urgency Plan: improved on losartan 100/d (2) Acute hyponatremia: Status: Acute Code(s): E87.1 - Hypo-osmolality and hyponatremia Plan: Improved TSH and cortisol WNL. Possible SIADH. Recommend outpatient follow up of sodium and fluid restriction of 1.5 liters. Plan Suspected GARRY: outpt pulm follow up for PSG Obesity class II: complicates care and recovery VTE prophylaxis: LMWH. Disposition: sodium still too low for discharge. Medications at Discharge Home Medications losartan 25 mg tablet 25 mg PO DAILY 05/03/25 Weight / BMI Weight Weight: 146.5 kg Body Mass Index (BMI) 47.7 ABG / Lab / Microbiology Data 05/04/25 04:35 05/05/25 05:23 Laboratory: Laboratory Results - last 24 hr 05/04/25 11:48: Sodium 121 L, Potassium 4.4, Chloride 90 L, Carbon Dioxide 20.0 L, Anion Gap 11, BUN 7, Creatinine 0.64 L, Estim Creat Clear Calc 187.67, Est GFR (MDRD) Non-Af 112, BUN/Creatinine Ratio 11.4, Glucose 114 H, Calcium 8.8 05/05/25 05:23: Sodium 127 L, Potassium 4.1, Chloride 93 L, Carbon Dioxide 23.7, Anion Gap 10, BUN 6, Creatinine 0.73, Estim Creat Clear Calc 163.37, Est GFR (MDRD) Non-Af 107, BUN/Creatinine Ratio 7.9 L, Glucose 105 H, Calcium 8.7 D/C Instructions DC O2, CPAP, BIPAP Needs Home O2 Discharge instructions: No Meaningful Use Info Meaningful Use Meaningful Use Diagnoses (Choose all that apply): None applicable Ischemic Stroke Statin Dosing Therapy Reference: STATIN DOSE THERAPY REFERENCE: * Patients > 75 years receive moderate or high dose statin therapy. * Patients 75 years or YOUNGER should receive HIGH intensity statin dose unless contraindicated. You will be required to document reason for non-treatment if statin daily dose does not meet guidelines. HIGH DOSE STATIN THERAPY DAILY Atorvastatin > than or = to 40 mg Rosuvastatin > than or = to 20 mg Amlodipine + Atorvastatin > than or = to 2.5/40 mg Ezetimibe + Simvastatin 10/80 mg Simvastatin 80mg Discharge Plan Admission Admit Date/Time: 05/03/25 18:03 Attending Provider: Kevin Singh Primary Care Provider: Deborah Roa Consulting Providers: Meseret Minor Discharge Orders/Prescriptions Prescriptions: No Action losartan 25 mg tablet 25 mg PO DAILY Referrals / Follow Up: Care Physician,No Primary [Non-Staff] - Deborah Roa, JOE-Juju [Primary Care Provider] - 05/05/25 1006 Cosigner Signature (if applicable): CC: UMAIR Roa; Dr. Kevin Singh DO Signed ADDENDUM by Dr. Kevin Singh DO on 05/05/25 at 1007 Addendum Physical exam: Patient has no acute distress and afebrile. Nontoxic. Heart rate regular rate and rhythm plus S1-S2 without events, rubs. Lungs are clear to auscultation bilaterally. 05/05/25 1007 Cosigner Signature (if applicable): cc: UMAIR Roa; Dr. Kevin Singh DO * Signed ADDENDUM by Dr. Kevin Singh DO on 05/05/25 at 1009 Visit Charges Inpatient E M: 50298 Disch Hosp 05/05/25 1009 Cosigner Signature (if applicable): cc: UMAIR Roa; Dr. Kevin Singh DO * Signed [facility] 05-04-2025 Progress note Note Date/Time May 04, 2025 1:33p m [facility] Medical Records Department [address] [place] [id number] Progress Note - Hospitalist 05/04/25910 MR#: [id number] Acct: [id number] Name: LYNNETTE GONG Rep #:[id number] : 1970 54 From: Kevin Singh DO PCP: UMAIR Taveras Status:ADM IN Location: [place] [id number] Reason for Visit Reason for Visit: Diagnoses Hypo-osmolality and hyponatremia (05/03/25) Hypertensive urgency (05/03/25) Hyperglycemia, unspecified (05/03/25) Subjective Subjective Feeling better. Takes losartan at home. he does not think it is with HCTZ. Objective Data Objective Data Vital Signs: Vital Signs Temp Pulse Resp BP Pulse Ox O2 Del Method 36.3 C L 65 18 158/94 H 100 Room Air 05/04/25 08:00 05/04/25 08:00 05/04/25 08:00 05/04/25 08:00 05/04/25 08:00 05/04/25 08:00 Oxygen Delivery Method Room Air Weight: 148.3 kg Body Mass Index (BMI) 48.2 Intake & Output: Intake and Output for Last 24 Hours 05/02/25 05/03/25 05/04/25 23:59 23:59 23:59 Intake Total 276.67 / 276.67 741.67 / 741.67 Balance 276.67 / 276.67 741.67 / 741.67 Lab / Micro Data 05/04/25 04:35 05/04/25 11:48 Labs: Laboratory Results - last 24 hr 05/03/25 15:52: WBC 11.6 H, RBC 5.06, Hgb 14.8, Hct 41.1, MCV 81.2, MCH 29.2, MCHC 36.0, RDW Std Deviation 37.1, RDW Coeff of Senia 12.6, Plt Count 313, MPV 9.0, Immature Gran % (Auto) 0.600, Neut % (Auto) 76.5 H, Lymph % (Auto) 15.6 L, [place] % (Auto) 6.7, Eos % (Auto) 0.1, Baso % (Auto) 0.5, Absolute Neuts (auto) 8.9 H, Absolute Lymphs (auto) 1.81, Nucleated RBC % 0, Sodium 119 L*, Potassium 4.5, Chloride 84 L, Carbon Dioxide 21.4, Anion Gap 13, BUN 5, Creatinine 0.74, Estim Creat Clear Calc 162.50, Est GFR (MDRD) Non-Af 107, BUN/Creatinine Ratio 6.9 L, Glucose 113 H, Hemoglobin A1c 6.0 H, Calcium 9.1, Troponin T High Sens 9,TSH 1.050, Free T4 1.30, Free T3 pg/dL 2.8 05/03/25 17:00: Sodium 119 L*, Potassium 4.5, Chloride 85 L, Carbon Dioxide 22.2, Anion Gap 12, BUN 6, Creatinine 0.75, Estim Creat Clear Calc 160.33, Est GFR (MDRD) Non-Af 107, BUN/Creatinine Ratio 7.6 L, Glucose 104 H, Serum Osmolality 253 L, Uric Acid 3.1 L, Calcium 9.1, TSH 0.950, Cortisol PM Sample 7.33 05/03/25 18:15: Troponin T Hi Sens 2 Hr 9 05/03/25 20:46: Troponin T Hi Sens 4Hr 9 05/03/25 23:30: Urine Color Yellow, Urine Clarity Clear, Urine pH 7.0, Ur Specific Mcintire 1.010, Urine Protein 15 H, Urine Glucose (UA) Normal, Urine Ketones Negative, Urine Occult Blood 25 H, Urine Nitrite Negative, Urine Bilirubin Negative, Urine Urobilinogen Normal, Ur Leukocyte Esterase Negative, Urine RBC 0 SEEN, Urine WBC 0 SEEN, Ur Squamous Epith Cells 0 SEEN, Urine Bacteria 0 SEEN, Urine Mucus 0 SEEN, Urine Osmolality 181, Ur Random Sodium 33, Urine Opiates Screen NEGATIVE, U Buprenorphine Qual NEGATIVE, Ur Oxycodone Screen NEGATIVE, Urine Methadone Screen NEGATIVE, Urine Fentanyl Screen NEGATIVE, Ur Barbiturates Screen NEGATIVE, Ur Phencyclidine Scrn NEGATIVE, Ur Amphetamines Screen NEGATIVE, U Benzodiazepines Scrn NEGATIVE, Urine Cocaine Screen NEGATIVE, U Cannabinoids Screen NEGATIVE 05/04/25 00:38: Sodium 121 L, Potassium 3.8, Chloride 88 L, Carbon Dioxide 21.4,Anion Gap 12, BUN 7, Creatinine 0.71, Estim Creat Clear Calc 169.17, Est GFR (MDRD) Non-Af 108, BUN/Creatinine Ratio 9.3 L, Glucose 98, Calcium 8.7 05/04/25 04:35: WBC 9.2, RBC 4.66, Hgb 14.0, Hct 37.9 L, MCV 81.3, MCH 30.0, MCHC 36.9 H, RDW Std Deviation 37.4, RDW Coeff of Senia 12.6, Plt Count 252, MPV 9.1, Immature Gran % (Auto) 0.800, Neut % (Auto) 65.3, Lymph % (Auto) 22.7, [place]% (Auto) 10.3 H, Eos % (Auto) 0.2, Baso % (Auto) 0.7, Absolute Neuts (auto) 6.0,Absolute Lymphs (auto) 2.08, Nucleated RBC % 0, Sodium 123 L, Potassium 3.8, Chloride 89 L, Carbon Dioxide 22.0, Anion Gap 11, BUN 6, Creatinine 0.62 L, EstimCreat Clear Calc 193.73, Est GFR (MDRD) Non-Af 113, BUN/Creatinine Ratio 9.3 L, Glucose 101 H, Calcium 8.7, Phosphorus 3.9, Magnesium 1.9, Total Bilirubin 0.56,AST 20, ALT 12, Alkaline Phosphatase 56, Total Protein 6.3, Albumin 3.9, Globulin 2.4, Albumin/Globulin Ratio 1.6 Radiography Diagnostic Testing: Radiology Impression Chest X-Ray 05/03/25 16:00 IMPRESSION: NO ACUTE FINDINGS. Reading Location: [facility] Physical Exam Const alert and no apparent distress HEENT head/scalp atraumatic and moist oral mucous membranes Resp normal respiratory effort, no retractions, no use of accessory muscles and clearto auscultation bilaterally Cardio regular rate, regular rhythm, S1 normal heart sound and S2 normal heart sound GI normal to inspection, nondistended, normoactive bowel sounds, soft to palpation,non-tender and non-distended Extremity normal to inspection and full ROM Neuro Sensorium / Orientation: awake and alert Assessment & Plan Assessment/Plan (1) Hypertensive urgency: PLAN: improved on losartan 100/d (2) Acute hyponatremia: PLAN: Improved with IVF, but still low. Continue w IVF. Check urine osm and serum osm TSH and cortisol WNL. PLAN: Plan Suspected GARRY: outpt pulm follow up for PSG Obesity class II: complicates care and recovery VTE prophylaxis: LMWH. Disposition: sodium still too low for discharge. Will continue IV and recheck labs in AM. Charges/Coding Visit Charges Inpatient E&M: 60117 Subs Hosp L2 05/04/25 1333 <Electronically signed by Kevin Singh DO> Cosigner Signature (if applicable): CC: ~ Signed [facility] Work Phone: [phone] Progress note [facility] Medical Records Department [address] [place] [place] [address] Progress Note - Hospitalist 05/04/25 0911 MR#: [id number] Acct: [id number] Name: LYNNETTE GONG Rep #:[id number] : 1970 54 From: Kevin Singh DO PCP: UMAIR Taveras Status:ADM IN Location: [place] [address]- 1 Reason for Visit Reason for Visit: Diagnoses Hypo-osmolality and hyponatremia (05/03/25) Hypertensive urgency (05/03/25) Hyperglycemia, unspecified (05/03/25) Subjective Subjective Feeling better. Takes losartan at home. he does not think it is with HCTZ. Objective Data Objective Data Vital Signs: Vital Signs Temp Pulse Resp BP Pulse Ox O2 Del Method 36.3 C L 65 18 158/94 H 100 Room Air 05/04/25 08:00 05/04/25 08:00 05/04/25 08:00 05/04/25 08:00 05/04/25 08:00 05/04/25 08:00 Oxygen Delivery Method Room Air Weight: 148.3 kg Body Mass Index (BMI) 48.2 Intake & Output: Intake and Output for Last 24 Hours 05/02/25 05/03/25 05/04/25 23:59 23:59 23:59 Intake Total 276.67 / 276.67 741.67 / 741.67 Balance 276.67 / 276.67 741.67 / 741.67 Lab / Micro Data 05/04/25 04:35 05/04/25 11:48 Labs: Laboratory Results - last 24 hr 05/03/25 15:52: WBC 11.6 H, RBC 5.06, Hgb 14.8, Hct 41.1, MCV 81.2, MCH 29.2, MCHC 36.0, RDW Std Deviation 37.1, RDW Coeff of Senia 12.6, Plt Count 313, MPV 9.0, Immature Gran % (Auto) 0.600, Neut % (Auto) 76.5 H, Lymph % (Auto) 15.6 L, [place] % (Auto) 6.7, Eos % (Auto) 0.1, Baso % (Auto) 0.5, AbsoluteNeuts (auto) 8.9 H, Absolute Lymphs (auto) 1.81, Nucleated RBC % 0, Sodium 119 L*, Potassium 4.5, Chloride 84 L, Carbon Dioxide 21.4, Anion Gap 13, BUN 5, Creatinine 0.74, Estim Creat Clear Calc 162.50, Est GFR (MDRD) Non-Af 107, BUN/Creatinine Ratio 6.9 L, Glucose 113 H, Hemoglobin A1c 6.0 H, Calcium 9.1, Troponin T High Sens 9,TSH 1.050, Free T4 1.30, Free T3 pg/dL 2.8 05/03/25 17:00: Sodium 119 L*, Potassium 4.5, Chloride 85 L, Carbon Dioxide 22.2, Anion Gap 12, BUN6, Creatinine 0.75, Estim Creat Clear Calc 160.33, Est GFR (MDRD) Non-Af 107, BUN/Creatinine Ratio 7.6 L, Glucose 104 H, Serum Osmolality 253 L, Uric Acid 3.1 L, Calcium 9.1, TSH 0.950, Cortisol PM Sample 7.33 05/03/25 18:15: Troponin T Hi Sens 2 Hr 9 05/03/25 20:46: Troponin T Hi Sens 4Hr 9 05/03/25 23:30: Urine Color Yellow, Urine Clarity Clear, Urine pH 7.0, Ur Specific Mcintire 1.010, Urine Protein 15 H, Urine Glucose (UA) Normal, Urine Ketones Negative, Urine Occult Blood 25 H, UrineNitrite Negative, Urine Bilirubin Negative, Urine Urobilinogen Normal, Ur Leukocyte Esterase Negative, Urine RBC 0 SEEN, Urine WBC 0 SEEN, Ur Squamous Epith Cells 0 SEEN, Urine Bacteria 0 SEEN, UrineMucus 0 SEEN, Urine Osmolality 181, Ur Random Sodium 33, Urine Opiates Screen NEGATIVE, U Buprenorphine Qual NEGATIVE, Ur Oxycodone Screen NEGATIVE, Urine Methadone Screen NEGATIVE, Urine Fentanyl Screen NEGATIVE, Ur Barbiturates Screen NEGATIVE, Ur Phencyclidine Scrn NEGATIVE, Ur Amphetamines Screen NEGATIVE, U Benzodiazepines Scrn NEGATIVE, Urine Cocaine Screen NEGATIVE, U Cannabinoids Screen NEGATIVE 05/04/25 00:38: Sodium 121 L, Potassium 3.8, Chloride 88 L, Carbon Dioxide 21.4,Anion Gap 12, BUN 7, Creatinine 0.71, Estim Creat Clear Calc 169.17, Est GFR (MDRD) Non-Af 108, BUN/Creatinine Ratio 9.3 L, Glucose 98, Calcium 8.7 05/04/25 04:35: WBC 9.2, RBC 4.66, Hgb 14.0, Hct 37.9 L, MCV 81.3, MCH 30.0, MCHC 36.9 H, RDW Std Deviation 37.4, RDW Coeff of Senia 12.6, Plt Count 252, MPV 9.1, Immature Gran % (Auto) 0.800, Neut % (Auto) 65.3, Lymph % (Auto) 22.7, [place]% (Auto) 10.3 H, Eos % (Auto) 0.2, Baso % (Auto) 0.7, Absolute Neuts (auto) 6.0,Absolute Lymphs (auto) 2.08, Nucleated RBC % 0, Sodium 123 L, Potassium 3.8, Chloride 89 L, Carbon Dioxide 22.0, Anion Gap 11, BUN 6, Creatinine 0.62 L, EstimCreat Clear Calc 193.73, Est GFR (MDRD) Non-Af 113, BUN/Creatinine Ratio 9.3 L, Glucose 101 H, Calcium 8.7, Phosphorus 3.9, Magnesium 1.9, Total Bilirubin 0.56,AST 20, ALT 12, Alkaline Phosphatase 56, Total Protein 6.3, Albumin 3.9, Globulin 2.4, Albumin/Globulin Ratio 1.6 Radiography Diagnostic Testing: Radiology Impression Chest X-Ray 05/03/25 16:00 IMPRESSION: NO ACUTE FINDINGS. Reading Location: [facility] Physical Exam Const alert and no apparent distress HEENT head/scalp atraumatic and moist oral mucous membranes Resp normal respiratory effort, no retractions, no use of accessory muscles and clearto auscultation bilaterally Cardio regular rate, regular rhythm, S1 normal heart sound and S2 normal heart sound GI normal to inspection, nondistended, normoactive bowel sounds, soft to palpation,non-tender and non-distended Extremity normal to inspection and full ROM Neuro Sensorium / Orientation: awake and alert Assessment & Plan Assessment/Plan (1) Hypertensive urgency: PLAN: improved on losartan 100/d (2) Acute hyponatremia: PLAN: Improved with IVF, but still low. Continue w IVF. Check urine osm and serum osm TSH and cortisol WNL. PLAN: Plan Suspected GARRY: outpt pulm follow up for PSG Obesity class II: complicates care and recovery VTE prophylaxis: LMWH. Disposition: sodium still too low for discharge. Will continue IV and recheck labs in AM. Charges/Coding Visit Charges Inpatient E&M: 50532 Subs Hosp L2 05/04/25 1333 Cosigner Signature (if applicable): CC: ~ Signed [facility]06-07-2025 History and physical note Author Meseret Minor [facility] Note Date/Time May 03, 2025 7:01p m [facility] Medical Records Department [address] [place] [address] H&P Exam - Hospitalist 05/03/25 1806 MR#: [id number] Acct: [id number] Name: LYNNETTE GONG Rep #:[id number] : 1970 54 From: Meseret Minor DO PCP: UMAIR Taveras Status:ADM IN Location: [facility] [id number] HPI - General General Date of Admission: 05/03/25 Date of Service: 05/03/25 Chief Complaint: Elevated blood pressure HPI Narrative LYNNETTE GONG, is a 54 M who presented to the emergency department [facility] on 05/03/2025 with the chief complaint of elevated blood pressure. Patient recently has established with a doctor and he not traditionally followedwith a physician. They started him on losartan 25 mg daily however his blood pressures remain markedly elevated. He was concerned so he came to the emergency department. He has been having headaches and difficulty sleeping. Hestates that he sleeps only about 2 hours at a time. He also has chronic low back pain. He states he suspects he has sleep apnea but has never been evaluated. He also is a smoker. Blood pressure at home prior to presentation was in the 200s systolic so he was advised by his PCP on- call physician to come to the emergency department. Headache was resolved at the time of admission. Vital signs on presentation showed a temperature of 97.4, heart rate 83, blood pressure was 186/101, respiratory rate is 18, pulse ox was 100% on room air. CBC shows a very mild leukocytosis with white count of 11.6. Chemistry panel showed marked hyponatremia with a sodium of 119 and a chloride of 84 but was otherwise unremarkable. Glucose was only 113 and A1c was obtained in the emergency department found to be 6.0. Troponin was 9 with a repeat of 9. TSH was normal at 1.05. Patient has had previous tox screens positive for amphetamine/MDMA but it is unclear what medications he was on at that time. Patient denies any current alcohol or drug use. He does smoke about a pack of cigarettes daily. He was started on IV fluids. We have added some's subsequent testing to see if we can figure out the etiology of his hyponatremia. He was also given some clonidine p.o. x 1 dose in the emergency department to bring his blood pressure down with his most recent blood pressure at 159/89. [facility] Medical History HTN (hypertension) Morbid obesity Home Medications ?Medication ?Instructions ?Recorded ?Last Taken ?Type losartan 25 mg tablet 25 mg PO DAILY 05/03/25 Unkn own History Allergy/AdvReac Type Severity Reaction Status Date / Time No Known Allergies Allergy Verified 05/03/25 15:37 no significant family history no surgical history Social History (Updated 05/03/25 @ 18:[address] Meseret Minor, DO) Smoking Status: Current every day smoker tobacco type: cigarettes alcohol intake: never substance use type: does not use ROS Constitutional Constitutional: Denies anorexia, change in weight, chills, fatigue, fever(s), malaise, night sweats, weakness or other Eyes Eyes: Denies blurry vision, change in eye color, change in vision, discharge from eye(s), double vision, erythema, eye pain, loss of vision or other ENT HEENT: Reports headache(s) and post nasal drip; Denies abnormal hearing, dysphagia, ear pain, epistaxis, hearing loss, nasal congestion, nasal discharge,sinus pressure, sore throat or other Cardiovascular Cardiovascular: Denies chest pain, claudication, dyspnea on exertion, edema, lightheadedness, orthopnea, palpitations, paroxysmal nocturnal dyspnea, rapid heart rate, syncope or other Respiratory/Chest Respiratory/Chest: Denies cough, dyspnea, excessive phlegm production, hemoptysis, productive cough, shortness of breath at rest, shortness of breath with exertion, wheezing or other Gastrointestinal Gastrointestinal: Denies abdominal pain, coffee ground emesis, constipation, diarrhea, dyspepsia, hematemesis, hematochezia, loose stools, melena, nausea, vomiting or other Genitourinary Genitourinary: Denies burning urination, difficulty urinating, dysuria, hematuria, nocturia, urinary frequency, urinary hesitancy, urinary incontinence,urinary urgency or other Musculoskeletal Musculoskeletal: Reports back pain; Denies arthralgias, joint pain, joint stiffness, joint swelling, myalgias, neck pain or other Neurologic Neurologic: Denies abnormal gait, abnormal speech, confusion, disequilibrium, dizziness, focal weakness, headache(s), numbness, paresthesias, seizure-like activity, seizures, syncope, tingling, tremor(s) or other Psychiatric Psychiatric: Denies anxiety, depression, homicidal ideation, suicidal ideation or other Endocrine Endocrinology: Denies change in body appearance, cold intolerance, excessive sweating, heat intolerance, polydipsia, polyuria or other Hematologic/Lymphatic Hematologic/Lymphatic: Denies anemia, easy bleeding, easy bruising, lymphadenopathy or other Allergic/Immunologic Allergic/Immunologic: Denies rhinitis, hives, eczemia, asthma or other Vital Signs Vital Signs Vital Signs: 05/03/25 15:36 05/03/25 15:37 05/03/25 15:49 Temperature 97.4 F L Temperature Source Temporal Pulse Rate 83 Respiratory Rate 18 Respiratory Effort Normal Non-Labored Respiratory Pattern Normal Blood Pressure 186/101 H Blood Pressure Mean 129 Pulse Ox 100 Oxygen Delivery Method Room Air Room Air Weight Weight: 148.597 kg Body Mass Index (BMI) 48.4 Physical Exam Const alert, oriented x3, no apparent distress and well nourished; Negative for average body habitus or healthy appearing Constitutional Narrative: Morbidly obese, white male, sitting up in chair at the bedside, appears comfortable, nontoxic General Appearance: cooperative HEENT normocephalic, head/scalp atraumatic, hearing grossly normal bilaterally and moist oral mucous membranes HEENT Narrative: Mallampati 4, dentition is fair, no thrush Eyes conjunctivae normal Eyes Narrative: No scleral icterus Neck supple Neck Narrative: Neck is short and thick with redundant tissue Resp normal respiratory effort, no retractions, no use of accessory muscles and clearto auscultation bilaterally Resp Narrative: Diminished diffusely most specifically at the apices with better air movement atthe bases Auscultation: Negative for rales, rhonchi or wheezes Cardio regular rate, regular rhythm, S1 normal heart sound, S2 normal heart sound, no murmurs, no rub, no gallops and no clicks GI normal to inspection, nondistended, normoactive bowel sounds, soft to palpation and non-tender GI Narrative: Large protuberant abdomen Extremity no clubbing, cyanosis or edema Extremity Narrative: 2+ pedal and radial pulses Neuro oriented x3, moves all extremities and no focal motor deficits Speech: speech normal Psych Psych Narrative: Slightly agitated but pleasant enough, makes good eye contact, interacts appropriately Results Lab / Micro Data 05/03/25 15:52 05/03/25 15:52 Labs: Laboratory Results - last 24 hr 05/03/25 15:52: WBC 11.6 H, RBC 5.06, Hgb 14.8, Hct 41.1, MCV 81.2, MCH 29.2, MCHC 36.0, RDW Std Deviation 37.1, RDW Coeff of Senia 12.6, Plt Count 313, MPV 9.0, Immature Gran % (Auto) 0.600, Neut % (Auto) 76.5 H, Lymph % (Auto) 15.6 L, [place] % (Auto) 6.7, Eos % (Auto) 0.1, Baso % (Auto) 0.5, Absolute Neuts (auto) 8.9 H, Absolute Lymphs (auto) 1.81, Nucleated RBC % 0, Sodium 119 L*, Potassium 4.5, Chloride 84 L, Carbon Dioxide 21.4, Anion Gap 13, BUN 5, Creatinine 0.74, Estim Creat Clear Calc 162.50, Est GFR (MDRD) Non-Af 107, BUN/Creatinine Ratio 6.9 L, Glucose 113 H, Hemoglobin A1c 6.0 H, Calcium 9.1, Troponin T High Sens 9 05/03/25 16:45: TSH 1.050, Free T4 1.30, Free T3 pg/dL 2.8 Imaging Radiology Impression Chest X-Ray 05/03/25 16:00 IMPRESSION: NO ACUTE FINDINGS. Reading Location: [id number] Assessment & Plan Assessment/Plan (1) Acute hyponatremia: (2) Hypertensive urgency: (3) Hyperglycemia: PLAN: Plan Acute hyponatremia - Etiology is unclear as he is on no medications that precipitate hyponatremia - Patient is a smoker so if this is consistent with SIADH may need a CT of the chest to rule out malignancy - Check urinalysis, urine sodium, urine osmolality, serum osmolality, serum uricacid - Check TSH and cortisol level - IV fluids started in the emergency department will continue for now until can better establish the etiology of his hyponatremia this appears to be euvolemic in nature - Monitor serial sodiums every 6 hours--> rate of rise should be no more than 12mEq in 24 hours - Patient does seem to be asymptomatic with regard to his hyponatremia Hypertensive urgency - Continue losartan increased dose from 25 to 100 mg daily - Will do an extra 50 mg right now as he did get some clonidine - 100 mg dosing to start tomorrow morning - Goal overall should be less than 130/80 - Will check cortisol and TSH - Patient may have obstructive sleep apnea which could be contributing to his uncontrolled hypertension and he should be evaluated for this as an outpatient Mild hyperglycemia - Hemoglobin A1c done the emergency department was 6.0 so he does have some insulin resistance - Would recommend weight loss and regimented diet Morbid obesity - BMI is 48.4 - Recommend weight loss - Complicates treatment, prognosis, outcomes - Highly suspect patient has obstructive sleep apnea at baseline and outpatient polysomnography is recommended Tobacco abuse - Nicotine patch replacement available - Patient does seem ready to quit and asked his PCP to call in [facility] however it is too expensive for him. - We did discuss that there are other alternatives and I recommended he discuss this with his primary care physician- DVT prophylaxis - Lovenox SQ twice daily CODE STATUS - Full code Charges/Coding Visit Charges Inpatient E&M: 78803 Init Hosp L2 05/03/25 190 <Electronically signed by Meseret Minor DO> Cosigner Signature (if applicable): CC: MET[employer] MODEL BUILDER-C Deborah Roa; Dr. Meseret Minor DO~ Signed [facility] Work Phone: 1(138) 759-770706-07-2025 Discharge summary Author Allan Jc [facility] Note Date/Time May 03, 2025 6:22p m [facility] Medical Records Department [address] [place] [address] Emergency Department Summary 05/03/25 MR#: [id number] Acct: [id number] Name: LYNNETTE OGNG Rep #:[id number] : 1970 54 From: Allan Jc DO PCP: UMAIR Taveras Status:REG ER Location: ED HPI History of Present Illness Chief Complaint: Hypertension Narrative Narrative: Patient is a 54-year-old male who presents to the emergency department chief complaint of elevated blood pressure. Patient states that just 3 days ago he saw a primary care physician for the first time and was started on blood pressure medication. He states that he had a headache earlier and noted that hechecked his blood pressure this was elevated he states that he called his primary care physician and they advised him to take a extra dose of the blood pressure medication that he was started on losartan and check his blood pressureagain in 2 hours. He states that he did this in his blood pressure was a systolic of the 200s he called them back and they advised him to come to the emergency department to be evaluated. Patient states that he no longer has a headache. [facility] Medical History (Updated 05/03/25 @ 18:[address] Allan Jc DO) HTN (hypertension) Morbid obesity Home Medications ?Medication ?Instructions ?Recorded ?Last Taken ?Type losartan 25 mg tablet 25 mg PO DAILY 05/03/25 Unkn own History Allergy/AdvReac Type Severity Reaction Status Date / Time No Known Allergies Allergy Verified 05/03/25 15:37 Social History Smoking Status: Current every day smoker tobacco type: cigarettes ROS ROS ED ROS Narrative Constitutional: Complains of lightheadedness and headache as noted above but theheadache has resolved with denies any fevers, chills, dizziness, Eyes: Denies change in vision double vision blurry vision he states that earlierwhen he had a headache he had spots that would flash in his peripheral vision this is resolved Cardiovascular: Denies chest pain or palpitations Respiratory: Denies cough wheezing shortness of breath Abdomen: Denies abdominal pain nausea vomiting diarrhea : Denies any urinary symptoms Neurological: Denies numbness, weakness, tingling Musculoskeletal: Denies back pain Skin: Denies rashes or lesions EXAM Physical Exam Narrative Exam Narrative: General: Patient lying in bed rest comfortably did not appear to be acute distress Head: Atraumatic, normocephalic Eyes: PERRL bilaterally, EOMI bilateral, no conjunctival injection noted Neck: Soft, supple, trachea midline Cardiovascular: Regular in rhythm Respiratory: Clear to auscultation bilaterally Abdomen: Soft, nondistended, no tenderness to palpation Extremities: +5/5 strength noted in the bilateral upper and lower extremities, radial pulses +2/4 in the bilateral extremities Neurological: Patient following commands knew that he was at [facility] year is 2024 patient NIH of 0 GCS 15 Skin: Warm, dry, intact no rashes or lesions noted Const Vital Signs: 05/03/25 15:36 05/03/25 15:37 05/03/25 15:49 Temperature 97.4 F L Temperature Source Temporal Pulse Rate 83 Respiratory Rate 18 Respiratory Effort Normal Non-Labored Respiratory Pattern Normal Blood Pressure 186/101 H Blood Pressure Mean 129 Pulse Ox 100 Oxygen Delivery Method Room Air Room Air 05/03/25 17:36 05/03/25 18:11 Temperature 98.1 F Temperature Source Pulse Rate 73 73 Respiratory Rate 16 16 Respiratory Effort Respiratory Pattern Blood Pressure 159/89 H 159/89 H Blood Pressure Mean 112 112 Pulse Ox 98 98 Oxygen Delivery Method Room Air MDM MDM MDM Narrative Medical decision making narrative: Patient is a 54-year-old male who presents to the emergency department with a chief complaint of hypertension. On the differential diagnose includes but not limited to essential hypertension, hypertensive emergency, migraine headache that is resolved. Once workup is obtained and reviewed he will be reevaluated. Patient be given 0.1 mg clonidine for his hypertension and emergency department Patient CBC reviewed showed a white blood cell count of 11,000, he was 14.8, platelet count of 313. Patient sodium was low indicating hyponatremia at 119, potassium was 4.5, creatinine of 0.74. Patient glucose was 113, hemoglobin A1c was 6. Patient TSH normal at 1.05, free T3 and T4 were 2.8 and 1.30 respectively. Patient's troponin was 9, EKG reviewed and showed sinus rhythm with a rate of 70 bpm with evidence of right bundle branch block. This was compared to EKG of September 20, 2022 which showed sinus rhythm with a rate of 82 bpm at that point time as well.Patient's chest x-ray reviewed by myself and by radiology and showed no acute cardiopulmonary processes. At this point in time we will discuss case with hospitalist for admission for his acute hyponatremia, hypertension. Discussed case with hospitalist Dr. Minor who accept patient for admission. Patient is agreeable this plan as well. All question concerns answered Lab Data Labs: Laboratory Results - last 24 hr 05/03/25 05/03/25 15:52 16:45 WBC 11.6 H RBC 5.06 Hgb 14.8 Hct 41.1 MCV 81.2 MCH 29.2 MCHC 36.0 RDW Std Deviation 37.1 RDW Coeff of Senia 12.6 Plt Count 313 MPV 9.0 Immature Gran % (Auto) 0.600 Neut % (Auto) 76.5 H Lymph % (Auto) 15.6 L [place] % (Auto) 6.7 Eos % (Auto) 0.1 Baso % (Auto) 0.5 Absolute Neuts (auto) 8.9 H Absolute Lymphs (auto) 1.81 Nucleated RBC % 0 Sodium 119 L* Potassium 4.5 Chloride 84 L Carbon Dioxide 21.4 Anion Gap 13 BUN 5 Creatinine 0.74 Estim Creat Clear Calc 162.50 Est GFR (MDRD) Non-Af 107 BUN/Creatinine Ratio 6.9 L Glucose 113 H Hemoglobin A1c 6.0 H Calcium 9.1 Troponin T High Sens 9 TSH 1.050 Free T4 1.30 Free T3 pg/dL 2.8 Radiography Diagnostic Testing: Clinical Impression(s) from Imaging Studies Chest X-Ray 05/03/25 16:00 IMPRESSION: NO ACUTE FINDINGS. Reading Location: [facility] Discharge Plan Triage Chief Complaint: Hypertension ED Provider: Allan Jc Dx/Rx/DC Orders Clinical Impression: Acute hyponatremia, Hyperglycemia, Hypertension Prescriptions: No Action losartan 25 mg tablet 25 mg PO DAILY Primary Care Provider: Deborah Roa Referrals: Care Physician,No Primary [Non-Staff] - Print Language: Kenyan Disposition Disposition: Acute Care Hospital [facility] What to do if you have Problems For any increased pain, shortness of breath, bleeding, nausea or vomiting, chestpain, or any unexpected problems, contact your Primary Care Provider. Call [facility] ([phone]) or report to the closest Emergency Room. Call 911 if necessary. 05/03/251821 <Electronically signed by Allan Jc DO> Cosigner Signature (if applicable): CC: UMAIR Roa ~ Signed [facility] Work Phone: 1(573) 562-844006-07-2025 Evaluation note* Diagnosis Onset Date Resolution Status Admit Date Acute hyponatremia acute May 032024 6:03pm Hyperglycemia acute May 03 025 6:03pm Hypertensive urgency acute May 03, 2025 6:03pm [facility] Work Phone: 1([phone]) 493-524306-07-2025 Evaluation note* Diagnosis Onset Date Resolution Status Admit Date Acute hyponatremia resolved May 032024 6:03pm Hyperglycemia resolved May 03 025 6:03pm Hypertensive urgency resolved May 03, 2025 6:03pm Constipation acute May 12 1:20pm Screen for colon cancer acute J une 2024 1:20pm [facility] Work Phone: [phone]) 790-565106-07-2025 History and physical note [facility] Medical Records Department [address] [place] [address] H&P Exam - Hospitalist 05/03/25 1806 MR#: [id number] Acct: [id number] Name: LYNNETTE GONG Rep #:[id number] : 1970 54 From: Meseret Minor DO PCP: UMAIR Taveras Status:ADM [facility] - General General Date of Admission: 05/03/25 Date of Service: 05/03/25 Chief Complaint: Elevated blood pressure HPI Narrative LYNNETTE GONG, is a 54 M who presented to the emergency department [facility] on 05/03/2025 with the chief complaint of elevated blood pressure. Patient recently has established with a doctor and he not traditionally followedwith a physician. They started him on losartan 25 mg daily however his blood pressures remain markedly elevated. He was concerned so he came to the emergency department. He has been having headaches and difficulty sleeping. Hestates that he sleeps only about 2 hours at a time. He also has chronic low back pain. He states he suspects he has sleep apnea but has never been evaluated. He also is a smoker. Blood pressure at home prior to presentation was in the 200ssystolic so he was advised by his PCP on-call physician to come to the emergency department. Headache was resolved at the time of admission. Vital signs on presentation showed a temperature of 97.4, heart rate 83, blood pressure was 186/101, respiratory rate is 18, pulse ox was 100% on room air. CBC shows a very mild leukocytosis with white count of 11.6. Chemistry panel showed marked hyponatremia with a sodium of 119 and a chloride of 84 but was otherwise unremarkable. Glucose was only 113 and A1c was obtained in the emergency departm ent found to be 6.0. Troponin was 9 with a repeat of 9. TSH was normal at 1.05. Patient has had previous tox screens positive for amphetamine/MDMA but it is unclear what medications he was on at thattime. Patient denies any current alcohol or drug use. He does smoke about a pack of cigarettes daily. He was started on IV fluids. We have added some's subsequent testing to see if we can figure out the etiology of his hyponatremia. He was also given some clonidine p.o. x 1 dose in the emergency department to bring his blood pressure down with his most recent blood pressure at 159/89. [facility] Medical History HTN (hypertension) Morbid obesity Home Medications ?Medication ?Instructions ?Recorded ?Last Taken ?Type losartan 25 mg tablet 25 mg PO DAILY 05/03/25 Unkn own History Allergy/AdvReac Type Severity Reaction Status Date / Time No Known Allergies Allergy Verified 05/03/25 15:37 no significant family history no surgical history Social History (Updated 05/03/25 @ 18:[address] Meseret Minor, ) Smoking Status: Current every day smoker tobacco type: cigarettes alcohol intake: never substance use type: does not use ROS Constitutional Constitutional: Denies anorexia, change in weight, chills, fatigue, fever(s), malaise, night sweats, weakness or other Eyes Eyes: Denies blurry vision, change in eye color, change in vision, discharge from eye(s), double vision, erythema, eye pain, loss of vision or other ENT HEENT: Reports headache(s) and post nasal drip; Denies abnormal hearing, dysphagia, ear pain, epistaxis, hearing loss, nasal congestion, nasal discharge,sinus pressure, sore throat or other Cardiovascular Cardiovascular: Denies chest pain, claudication, dyspnea on exertion, edema, lightheadedness, orthopnea, palpitations, paroxysmal nocturnal dyspnea, rapid heart rate, syncope or other Respiratory/Chest Respiratory/Chest: Denies cough, dyspnea, excessive phlegm production, hemoptysis, productive cough, shortness of breath at rest, shortness of breath with exertion, wheezing or other Gastrointestinal Gastrointestinal: Denies abdominal pain, coffee ground emesis, constipation, diarrhea, dyspepsia, hematemesis, hematochezia, loose stools, melena, nausea, vomiting or other Genitourinary Genitourinary: Denies burning urination, difficulty urinating, dysuria, hematuria, nocturia, urinary frequency, urinary hesitancy, urinary incontinence,urinary urgency or other Musculoskeletal Musculoskeletal: Reports back pain; Denies arthralgias, joint pain, joint stiffness, joint swelling, myalgias, neck pain or other Neurologic Neurologic: Denies abnormal gait, abnormal speech, confusion, disequilibrium, dizziness, focal weakness, headache(s), numbness, paresthesias, seizure-like activity, seizures, syncope, tingling, tremor(s) or other Psychiatric Psychiatric: Denies anxiety, depression, homicidal ideation, suicidal ideation or other Endocrine Endocrinology: Denies change in body appearance, cold intolerance, excessive sweating, heat intolerance, polydipsia, polyuria or other Hematologic/Lymphatic Hematologic/Lymphatic: Denies anemia, easy bleeding, easy bruising, lymphadenopathy or other Allergic/Immunologic Allergic/Immunologic: Denies rhinitis, hives, eczemia, asthma or other Vital Signs Vital Signs Vital Signs: 05/03/25 15:36 05/03/25 15:37 05/03/25 15:49 Temperature 97.4 F L Temperature Source Temporal Pulse Rate 83 Respiratory Rate 18 Respiratory Effort Normal Non-Labored Respiratory Pattern Normal Blood Pressure 186/101 H Blood Pressure Mean 129 Pulse Ox 100 Oxygen Delivery Method Room Air Room Air Weight Weight: 148.597 kg Body Mass Index (BMI) 48.4 Physical Exam Const alert, oriented x3, no apparent distress and well nourished; Negative for average body habitus or healthy appearing Constitutional Narrative: Morbidly obese, white male, sitting up in chair at the bedside, appears comfortable, nontoxic General Appearance: cooperative HEENT normocephalic, head/scalp atraumatic, hearing grossly normal bilaterally and moist oral mucous membranes HEENT Narrative: Mallampati 4, dentition is fair, no thrush Eyes conjunctivae normal Eyes Narrative: No scleral icterus Neck supple Neck Narrative: Neck is short and thick with redundant tissue Resp normal respiratory effort, no retractions, no use of accessory muscles and clearto auscultation bilaterally Resp Narrative: Diminished diffusely most specifically at the apices with better air movement atthe bases Auscultation: Negative for rales, rhonchi or wheezes Cardio regular rate, regular rhythm, S1 normal heart sound, S2 normal heart sound, no murmurs, no rub, no gallops and no clicks GI normal to inspection, nondistended, normoactive bowel sounds, soft to palpation and non-tender GI Narrative: Large protuberant abdomen Extremity no clubbing, cyanosis or edema Extremity Narrative: 2+ pedal and radial pulses Neuro oriented x3, moves all extremities and no focal motor deficits Speech: speech normal Psych Psych Narrative: Slightly agitated but pleasant enough, makes good eye contact, interacts appropriately Results Lab / Micro Data 05/03/25 15:52 05/03/25 15:52 Labs: Laboratory Results - last 24 hr 05/03/25 15:52: WBC 11.6 H, RBC 5.06, Hgb 14.8, Hct 41.1, MCV 81.2, MCH 29.2, MCHC 36.0, RDW Std Deviation 37.1, RDW Coeff of Senia 12.6, Plt Count 313, MPV 9.0, Immature Gran % (Auto) 0.600, Neut % (Auto) 76.5 H, Lymph % (Auto) 15.6 L, [place] % (Auto) 6.7, Eos % (Auto) 0.1, Baso % (Auto) 0.5, AbsoluteNeuts (auto) 8.9 H, Absolute Lymphs (auto) 1.81, Nucleated RBC % 0, Sodium 119 L*, Potassium 4.5, Chloride 84 L, Carbon Dioxide 21.4, Anion Gap 13, BUN 5, Creatinine 0.74, Estim Creat Clear Calc 162.50, Est GFR (MDRD) Non-Af 107, BUN/Creatinine Ratio 6.9 L, Glucose 113 H, Hemoglobin A1c 6.0 H, Calcium 9.1, Troponin T High Sens 9 05/03/25 16:45: TSH 1.050, Free T4 1.30, Free T3 pg/dL 2.8 Imaging Radiology Impression Chest X-Ray 05/03/25 16:00 IMPRESSION: NO ACUTE FINDINGS. Reading Location: [facility] Assessment & Plan Assessment/Plan (1) Acute hyponatremia: (2) Hypertensive urgency: (3) Hyperglycemia: PLAN: Plan Acute hyponatremia - Etiology is unclear as he is on no medications that precipitate hyponatremia - Patient is a smoker so if this is consistent with SIADH may need a CT of the chest to rule out malignancy - Check urinalysis, urine sodium, urine osmolality, serum osmolality, serum uricacid - Check TSH and cortisol level - IV fluids started in the emergency department will continue for now until can better establish the etiology of his hyponatremia this appears to be euvolemic in nature - Monitor serial sodiums every 6 hours--> rate of rise should be no more than 12mEq in 24 hours - Patient does seem to be asymptomatic with regard to his hyponatremia Hypertensive urgency - Continue losartan increased dose from 25 to 100 mg daily - Will do an extra 50 mg right now as he did get some clonidine - 100 mg dosing to start tomorrow morning - Goal overall should be less than 130/80 - Will check cortisol and TSH - Patient may have obstructive sleep apnea which could be contributing to his uncontrolled hypertension and he should be evaluated for this as an outpatient Mild hyperglycemia - Hemoglobin A1c done the emergency department was 6.0 so he does have some insulin resistance - Would recommend weight loss and regimented diet Morbid obesity - BMI is 48.4 - Recommend weight loss - Complicates treatment, prognosis, outcomes - Highly suspect patient has obstructive sleep apnea at baseline and outpatient polysomnography is recommended Tobacco abuse - Nicotine patch replacement available - Patient does seem ready to quit and asked his PCP to call in [employer] however it is too expensive for him. - We did discuss that there are other alternatives and I recommended he discuss this with his primary care physician- DVT prophylaxis - Lovenox SQ twice daily CODE STATUS - Full code Charges/Coding Visit Charges Inpatient E&M: 37896 Init Hosp L2 05/03/25 1901 Cosigner Signature (if applicable): CC: UMAIR Roa; Dr. Meseret Minor, DO~ Signed [facility]-07-2025 Discharge summary [facility] Medical Records Department [address] [place] [address] Emergency Department Summary 05/03/25 MR#: [id number] Acct: [id number] Name: LYNNETTE GONG Rep #:[id number] : 1970 54 From: Allan Jc DO PCP: UMAIR Taveras Status:REG ER Location: ED HPI History of Present Illness Chief Complaint: Hypertension Narrative Narrative: Patient is a 54-year-old male who presents to the emergency department chief complaint of elevated blood pressure. Patient states that just 3 days ago he saw a primary care physician for the first time and was started on blood pressure medication. He states that he had a headache earlier and noted that hechecked his blood pressure this was elevated he states that he called his primary care physician and they advised him to take a extra dose of the blood pressure medication that he was started on losartan and check his blood pressureagain in 2 hours. He states that he did this in his blood pressure was a systolic of the 200s he called them back and they advised him to come to the emergency de partment to be evaluated. Patient states that he no longer has a headache. [facility] Medical History (Updated 05/03/25 @ 18:[address] Allan Jc DO) HTN (hypertension) Morbid obesity Home Medications ?Medication ?Instructions ?Recorded ?Last Taken ?Type losartan 25 mg tablet 25 mg PO DAILY 05/03/25 Unkn own History Allergy/AdvReac Type Severity Reaction Status Date / Time No Known Allergies Allergy Verified 05/03/25 15:37 Social History Smoking Status: Current every day smoker tobacco type: cigarettes ROS ROS ED ROS Narrative Constitutional: Complains of lightheadedness and headache as noted above but theheadache has resolved with denies any fevers, chills, dizziness, Eyes: Denies change in vision double vision blurry vision he states that earlierwhen he had a headache he had spots that would flash in his peripheral vision this is resolved Cardiovascular: Denies chest pain or palpitations Respiratory: Denies cough wheezing shortness of breath Abdomen: Denies abdominal pain nausea vomiting diarrhea : Denies any urinary symptoms Neurological: Denies numbness, weakness, tingling Musculoskeletal: Denies back pain Skin: Denies rashes or lesions EXAM Physical Exam Narrative Exam Narrative: General: Patient lying in bed rest comfortably did not appear to be acute distress Head: Atraumatic, normocephalic Eyes: PERRL bilaterally, EOMI bilateral, no conjunctival injection noted Neck: Soft, supple, trachea midline Cardiovascular: Regular in rhythm Respiratory: Clear to auscultation bilaterally Abdomen: Soft, nondistended, no tenderness to palpation Extremities: +5/5 strength noted in the bilateral upper and lower extremities, radial pulses +2/4 in the bilateral extremities Neurological: Patient following commands knew that he was at [facility] year is 2024 patient NIH of 0 GCS 15 Skin: Warm, dry, intact no rashes or lesions noted Const Vital Signs: 05/03/25 15:36 05/03/25 15:37 05/03/25 15:49 Temperature 97.4 F L Temperature Source Temporal Pulse Rate 83 Respiratory Rate 18 Respiratory Effort Normal Non-Labored Respiratory Pattern Normal Blood Pressure 186/101 H Blood Pressure Mean 129 Pulse Ox 100 Oxygen Delivery Method Room Air Room Air 05/03/25 17:36 05/03/25 18:11 Temperature 98.1 F Temperature Source Pulse Rate 73 73 Respiratory Rate 16 16 Respiratory Effort Respiratory Pattern Blood Pressure 159/89 H 159/89 H Blood Pressure Mean 112 112 Pulse Ox 98 98 Oxygen Delivery Method Room Air MDM MDM MDM Narrative Medical decision making narrative: Patient is a 54-year-old male who presents to the emergency department with a chief complaint of hypertension. On the differential diagnose includes but not limited to essential hypertension, hypertensive emergency, migraine headache that is resolved. Once workup is obtained and reviewed he will bereevaluated. Patient be given 0.1 mg clonidine for his hypertension and emergency department Patient CBC reviewed showed a white blood cell count of 11,000, he was 14.8, platelet count of 313.Patient sodium was low indicating hyponatremia at 119, potassium was 4.5, creatinine of 0.74. Patient glucose was 113, hemoglobin A1c was 6. Patient TSH normal at 1.05, free T3 and T4 were 2.8 and 1.30 respectively. Patient's troponin was 9, EKG reviewed and showed sinus rhythm with a rate of 70 bpm with evidence of right bundle branch block. This was compared to EKG of September 20, 2022 which showed sinus rhythm with a rate of 82 bpm at that point time as well.Patient's chest x-ray reviewed by myself and by radiology and showed no acute cardiopulmonary processes. At this point in time we will discuss case with hospitalist for admission for his acute hyponatremia, hypertension. Discussed case with hospitalist Dr. Minor who accept patient for admission. Patient is agreeable thisplan as well. All question concerns answered Lab Data Labs: Laboratory Results - last 24 hr 05/03/25 05/03/25 15:52 16:45 WBC 11.6 H RBC 5.06 Hgb 14.8 Hct 41.1 MCV 81.2 MCH 29.2 MCHC 36.0 RDW Std Deviation 37.1 RDW Coeff of Senia 12.6 Plt Count 313 MPV 9.0 Immature Gran % (Auto) 0.600 Neut % (Auto) 76.5 H Lymph % (Auto) 15.6 L [place] % (Auto) 6.7 Eos % (Auto) 0.1 Baso % (Auto) 0.5 Absolute Neuts (auto) 8.9 H Absolute Lymphs (auto) 1.81 Nucleated RBC % 0 Sodium 119 L* Potassium 4.5 Chloride 84 L Carbon Dioxide 21.4 Anion Gap 13 BUN 5 Creatinine 0.74 Estim Creat Clear Calc 162.50 Est GFR (MDRD) Non-Af 107 BUN/Creatinine Ratio 6.9 L Glucose 113 H Hemoglobin A1c 6.0 H Calcium 9.1 Troponin T High Sens 9 TSH 1.050 Free T4 1.30 Free T3 pg/dL 2.8 Radiography Diagnostic Testing: Clinical Impression(s) from Imaging Studies Chest X-Ray 05/03/25 16:00 IMPRESSION: NO ACUTE FINDINGS. Reading Location: [facility] Discharge Plan Triage Chief Complaint: Hypertension ED Provider: Allan Jc Dx/Rx/DC Orders Clinical Impression: Acute hyponatremia, Hyperglycemia, Hypertension Prescriptions: No Action losartan 25 mg tablet 25 mg PO DAILY Primary Care Provider: Deborah Roa Referrals: Care Physician,No Primary [Non-Staff] - Print Language: Kenyan Disposition Disposition: Acute Care Hospital [facility] What to do if you have Problems For any increased pain, shortness of breath, bleeding, nausea or vomiting, chestpain, or any unexpected problems, contact your Primary Care Provider. Call [facility] ([phone]) or report tothe closest Emergency Room. Call 911 if necessary. 05/03/25 1922 Cosigner Signature (if applicable): CC: METAL MODEL BUILDERLaurel Roa ~ Signed [facility]06-07-2025 Radiology Diagnostic study note [facility] [facility] [address] [place], [place] [id number] Chest PA and Lateral MR#: [id number] Acct: [id number] Name: LYNNETTE GONG Rep #: [id number] : 1970 M 54 From: Kimberly Vaughan MD PCP: Deborah Roa NP-C Status: REG ER Study:Chest PA and Lateral Date of Exam: 05/03/25 Exam# [id number] Ordering Dr: Dhaval Jc DO PROCEDURE: CHEST PA AND LATERAL 05/03/2025 REASON FOR EXAM: HTN TECHNIQUE: Frontal and lateral views of the chest. COMPARISON: None. FINDINGS: Hardware: None. Heart: The heart size is normal. Mediastinum: The mediastinal contour is unremarkable. Lungs: Bibasilar atelectasis/scarring. No focal consolidation, pleural effusionor pneumothorax. Bones: Degenerative changes are identified within the thoracic spine. RAD/Chest PA and Lateral IMPRESSION: NO ACUTE FINDINGS. Reading Location: [facility] CC: METAL MODEL BUILDER-C Deborah Roa; Dr. Allan Jc DO ~ Senior Service Aide: Signed [facility]12-21-2022 NoteClinical Note - Pharmacy v2: Education: Additional NotesED Post Discharge Result [...] Post-Discharge Culture Follow Up Team, please contact [phone]. . Aspen Chapa PharmD PGY1 Resident [facility] Electronic Signatures: Aspen Chapa (PHARM STUD) (Signed 16-Nov-2022 15:13) Authored: Education Deborah Ramirez (PharmD) (Signed 17-Nov-2022 08:30) Co-Signer: Education Last Updated: 17-Nov-2022 08:30 by Deborah Ramirez (PharmD)[facility] summary Author Kevin Singh [facility] Note Date/Time May 05, 2025 10:09 am [facility] Medical Records Department [address] [place] [address] Discharge Summary 05/05/25 1004 MR#: [id number] Acct: [id number] Name: LYNNETTE GONG Rep #:[id number] : 1970 54 From: Kevin Singh DO PCP: UMAIR Taveras Status:ADM IN Location: [place] [address] Providers Date of Admission: 05/03/25 Primary Care Physician: UMAIR Taveras Reason For Visit: HYPONATREMIA/HTN URGENCY Diagnosis Discharge Diagnosis (1) Hypertensive urgency: Status: Acute Code(s): I16.0 - Hypertensive urgency Plan: improved on losartan 100/d (2) Acute hyponatremia: Status: Acute Code(s): E87.1 - Hypo-osmolality and hyponatremia Plan: Improved TSH and cortisol WNL. Possible SIADH. Recommend outpatient follow up of sodium and fluid restriction of 1.5 liters. Plan Suspected GARRY: outpt pulm follow up for PSG Obesity class II: complicates care and recovery VTE prophylaxis: LMWH. Disposition: sodium still too low for discharge. Medications at Discharge Home Medications losartan 25 mg tablet 25 mg PO DAILY 05/03/25 Weight / BMI Weight Weight: 146.5 kg Body Mass Index (BMI) 47.7 ABG / Lab / Microbiology Data 05/04/25 04:35 05/05/25 05:23 Laboratory: Laboratory Results - last 24 hr 05/04/25 11:48: Sodium 121 L, Potassium 4.4, Chloride 90 L, Carbon Dioxide 20.0 L, Anion Gap 11, BUN 7, Creatinine 0.64 L, Estim Creat Clear Calc 187.67, Est GFR (MDRD) Non-Af 112, BUN/Creatinine Ratio 11.4, Glucose 114 H, Calcium 8.8 05/05/25 05:23: Sodium 127 L, Potassium 4.1, Chloride 93 L, Carbon Dioxide 23.7,Anion Gap 10, BUN 6, Creatinine 0.73, Estim Creat Clear Calc 163.37, Est GFR (MDRD) Non-Af 107, BUN/Creatinine Ratio 7.9 L, Glucose 105 H, Calcium 8.7 D/C Instructions DC O2, CPAP, BIPAP Needs Home O2 Discharge instructions: No Meaningful Use Info Meaningful Use Meaningful Use Diagnoses (Choose all that apply): None applicable Ischemic Stroke Statin Dosing Therapy Reference: STATIN DOSE THERAPY REFERENCE: * Patients > 75 years receive moderate or high dose statin therapy. * Patients 75 years or YOUNGER should receive HIGH intensity statin dose unless contraindicated. You will be required to document reason for non-treatment if statin daily dose does not meet guidelines. HIGH DOSE STATIN THERAPY DAILY Atorvastatin > than or = to 40 mg Rosuvastatin > than or = to 20 mg Amlodipine + Atorvastatin > than or = to 2.5/40 mg Ezetimibe + Simvastatin 10/80 mg Simvastatin 80mg Discharge Plan Admission Admit Date/Time: 05/03/25 18:03 Attending Provider: Kevin Singh Primary Care Provider: Deborah Roa Consulting Providers: Meseret Minor Discharge Orders/Prescriptions Prescriptions: No Action losartan 25 mg tablet 25 mg PO DAILY Referrals / Follow Up: Care Physician,No Primary [Non-Staff] - Deborah Roa, UMAIR [Primary Care Provider] - 05/05/25 1006 <Electronically signed by Kevin Singh DO> Cosigner Signature (if applicable): CC: UMAIR Roa; Dr. Kevin Singh DO~ Signed ADDENDUM by Dr. Kevin Singh DO on 05/05/25 at 1007 Addendum Physical exam: Patient has no acute distress and afebrile. Nontoxic. Heart rate regular rate and rhythm plus S1-S2 without events, rubs. Lungs are clear to auscultation bilaterally. 05/05/25 1007<Electronically signed by Kevin Singh DO> Cosigner Signature (if applicable): cc: UMAIR Roa; Dr. Kevin Singh DO ~* Signed ADDENDUM by Dr. Kevin Singh DO on 05/05/25 at 1009 Visit Charges Inpatient E&M: 29642 Disch Hosp 05/05/25 1009<Electronically signed by Kevin Singh DO> Cosigner Signature (if applicable): cc: UMAIR Rao; Dr. Kevin Singh DO ~* Signed [facility] Work Phone: Evaluation noteNo assessment information available [facility] Work Phone: Evaluation note* Diagnosis Onset Date Resolution Status Admit Date Acute hyponatremia acute May 032024 6:03pm Hyperglycemia acute May 03, 025 6:03pm Hypertensive urgency acute May 03, 2025 6:03pm [facility] Work Phone: History and physical note Author Meseret Minor [facility] Note Date/Time May 03, 2025 7:01p m [facility] Medical Records Department [address] [place] [address] H&P Exam - Hospitalist 05/03/25 1806 MR#: [id number] Acct: [id number] Name: LYNNETTE GONG Rep #:[id number] : 1970 54 From: Meseret Minor DO PCP: UMAIR Taveras Status:ADM IN Location: [facility] [id number] HPI - General General Date of Admission: 05/03/25 Date of Service: 05/03/25 Chief Complaint: Elevated blood pressure HPI Narrative LYNNETTE GONG, is a 54 M who presented to the emergency department [facility] on 05/03/2025 with the chief complaint of elevated blood pressure. Patient recently has established with a doctor and he not traditionally followedwith a physician. They started him on losartan 25 mg daily however his blood pressures remain markedly elevated. He was concerned so he came to the emergency department. He has been having headaches and difficulty sleeping. Hestates that he sleeps only about 2 hours at a time. He also has chronic low back pain. He states he suspects he has sleep apnea but has never been evaluated. He also is a smoker. Blood pressure at home prior to presentation was in the 200s systolic so he was advised by his PCP on- call physician to come to the emergency department. Headache was resolved at the time of admission. Vital signs on presentation showed a temperature of 97.4, heart rate 83, blood pressure was 186/101, respiratory rate is 18, pulse ox was 100% on room air. CBC shows a very mild leukocytosis with white count of 11.6. Chemistry panel showed marked hyponatremia with a sodium of 119 and a chloride of 84 but was otherwise unremarkable. Glucose was only 113 and A1c was obtained in the emergency department found to be 6.0. Troponin was 9 with a repeat of 9. TSH was normal at 1.05. Patient has had previous tox screens positive for amphetamine/MDMA but it is unclear what medications he was on at that time. Patient denies any current alcohol or drug use. He does smoke about a pack of cigarettes daily. He was started on IV fluids. We have added some's subsequent testing to see if we can figure out the etiology of his hyponatremia. He was also given some clonidine p.o. x 1 dose in the emergency department to bring his blood pressure down with his most recent blood pressure at 159/89. [facility] Medical History HTN (hypertension) Morbid obesity Home Medications ?Medication ?Instructions ?Recorded ?Last Taken ?Type losartan 25 mg tablet 25 mg PO DAILY 05/03/25 Unkn own History Allergy/AdvReac Type Severity Reaction Status Date / Time No Known Allergies Allergy Verified 05/03/25 15:37 no significant family history no surgical history Social History (Updated 05/03/25 @ 18:[address] Meseret Minor, ) Smoking Status: Current every day smoker tobacco type: cigarettes alcohol intake: never substance use type: does not use ROS Constitutional Constitutional: Denies anorexia, change in weight, chills, fatigue, fever(s), malaise, night sweats, weakness or other Eyes Eyes: Denies blurry vision, change in eye color, change in vision, discharge from eye(s), double vision, erythema, eye pain, loss of vision or other ENT HEENT: Reports headache(s) and post nasal drip; Denies abnormal hearing, dysphagia, ear pain, epistaxis, hearing loss, nasal congestion, nasal discharge,sinus pressure, sore throat or other Cardiovascular Cardiovascular: Denies chest pain, claudication, dyspnea on exertion, edema, lightheadedness, orthopnea, palpitations, paroxysmal nocturnal dyspnea, rapid heart rate, syncope or other Respiratory/Chest Respiratory/Chest: Denies cough, dyspnea, excessive phlegm production, hemoptysis, productive cough, shortness of breath at rest, shortness of breath with exertion, wheezing or other Gastrointestinal Gastrointestinal: Denies abdominal pain, coffee ground emesis, constipation, diarrhea, dyspepsia, hematemesis, hematochezia, loose stools, melena, nausea, vomiting or other Genitourinary Genitourinary: Denies burning urination, difficulty urinating, dysuria, hematuria, nocturia, urinary frequency, urinary hesitancy, urinary incontinence,urinary urgency or other Musculoskeletal Musculoskeletal: Reports back pain; Denies arthralgias, joint pain, joint stiffness, joint swelling, myalgias, neck pain or other Neurologic Neurologic: Denies abnormal gait, abnormal speech, confusion, disequilibrium, dizziness, focal weakness, headache(s), numbness, paresthesias, seizure-like activity, seizures, syncope, tingling, tremor(s) or other Psychiatric Psychiatric: Denies anxiety, depression, homicidal ideation, suicidal ideation or other Endocrine Endocrinology: Denies change in body appearance, cold intolerance, excessive sweating, heat intolerance, polydipsia, polyuria or other Hematologic/Lymphatic Hematologic/Lymphatic: Denies anemia, easy bleeding, easy bruising, lymphadenopathy or other Allergic/Immunologic Allergic/Immunologic: Denies rhinitis, hives, eczemia, asthma or other Vital Signs Vital Signs Vital Signs: 05/03/25 15:36 05/03/25 15:37 05/03/25 15:49 Temperature 97.4 F L Temperature Source Temporal Pulse Rate 83 Respiratory Rate 18 Respiratory Effort Normal Non-Labored Respiratory Pattern Normal Blood Pressure 186/101 H Blood Pressure Mean 129 Pulse Ox 100 Oxygen Delivery Method Room Air Room Air Weight Weight: 148.597 kg Body Mass Index (BMI) 48.4 Physical Exam Const alert, oriented x3, no apparent distress and well nourished; Negative for average body habitus or healthy appearing Constitutional Narrative: Morbidly obese, white male, sitting up in chair at the bedside, appears comfortable, nontoxic General Appearance: cooperative HEENT normocephalic, head/scalp atraumatic, hearing grossly normal bilaterally and moist oral mucous membranes HEENT Narrative: Mallampati 4, dentition is fair, no thrush Eyes conjunctivae normal Eyes Narrative: No scleral icterus Neck supple Neck Narrative: Neck is short and thick with redundant tissue Resp normal respiratory effort, no retractions, no use of accessory muscles and clearto auscultation bilaterally Resp Narrative: Diminished diffusely most specifically at the apices with better air movement atthe bases Auscultation: Negative for rales, rhonchi or wheezes Cardio regular rate, regular rhythm, S1 normal heart sound, S2 normal heart sound, no murmurs, no rub, no gallops and no clicks GI normal to inspection, nondistended, normoactive bowel sounds, soft to palpation and non-tender GI Narrative: Large protuberant abdomen Extremity no clubbing, cyanosis or edema Extremity Narrative: 2+ pedal and radial pulses Neuro oriented x3, moves all extremities and no focal motor deficits Speech: speech normal Psych Psych Narrative: Slightly agitated but pleasant enough, makes good eye contact, interacts appropriately Results Lab / Micro Data 05/03/25 15:52 05/03/25 15:52 Labs: Laboratory Results - last 24 hr 05/03/25 15:52: WBC 11.6 H, RBC 5.06, Hgb 14.8, Hct 41.1, MCV 81.2, MCH 29.2, MCHC 36.0, RDW Std Deviation 37.1, RDW Coeff of [place] 12.6, Plt Count 313, MPV 9.0, Immature Gran % (Auto) 0.600, Neut % (Auto) 76.5 H, Lymph % (Auto) 15.6 L, [place] % (Auto) 6.7, Eos % (Auto) 0.1, Baso % (Auto) 0.5, Absolute Neuts (auto) 8.9 H, Absolute Lymphs (auto) 1.81, Nucleated RBC % 0, Sodium 119 L*, Potassium 4.5, Chloride 84 L, Carbon Dioxide 21.4, Anion Gap 13, BUN 5, Creatinine 0.74, Estim Creat Clear Calc 162.50, Est GFR (MDRD) Non-Af 107, BUN/Creatinine Ratio 6.9 L, Glucose 113 H, Hemoglobin A1c 6.0 H, Calcium 9.1, Troponin T High Sens 9 05/03/25 16:45: TSH 1.050, Free T4 1.30, Free T3 pg/dL 2.8 Imaging Radiology Impression Chest X-Ray 05/03/25 16:00 IMPRESSION: NO ACUTE FINDINGS. Reading Location: [id number] Assessment & Plan Assessment/Plan (1) Acute hyponatremia: (2) Hypertensive urgency: (3) Hyperglycemia: PLAN: Plan Acute hyponatremia - Etiology is unclear as he is on no medications that precipitate hyponatremia - Patient is a smoker so if this is consistent with SIADH may need a CT of the chest to rule out malignancy - Check urinalysis, urine sodium, urine osmolality, serum osmolality, serum uricacid - Check TSH and cortisol level - IV fluids started in the emergency department will continue for now until can better establish the etiology of his hyponatremia this appears to be euvolemic in nature - Monitor serial sodiums every 6 hours--> rate of rise should be no more than 12mEq in 24 hours - Patient does seem to be asymptomatic with regard to his hyponatremia Hypertensive urgency - Continue losartan increased dose from 25 to 100 mg daily - Will do an extra 50 mg right now as he did get some clonidine - 100 mg dosing to start tomorrow morning - Goal overall should be less than 130/80 - Will check cortisol and TSH - Patient may have obstructive sleep apnea which could be contributing to his uncontrolled hypertension and he should be evaluated for this as an outpatient Mild hyperglycemia - Hemoglobin A1c done the emergency department was 6.0 so he does have some insulin resistance - Would recommend weight loss and regimented diet Morbid obesity - BMI is 48.4 - Recommend weight loss - Complicates treatment, prognosis, outcomes - Highly suspect patient has obstructive sleep apnea at baseline and outpatient polysomnography is recommended Tobacco abuse - Nicotine patch replacement available - Patient does seem ready to quit and asked his PCP to call in [employer] however it is too expensive for him. - We did discuss that there are other alternatives and I recommended he discuss this with his primary care physician- DVT prophylaxis - Lovenox SQ twice daily CODE STATUS - Full code Charges/Coding Visit Charges Inpatient E&M: 47554 Init Hosp L2 05/03/25 1901 <Electronically signed by Meseret Minor DO> Cosigner Signature (if applicable): CC: UMAIR Roa; Dr. Meseret Minor DO~ Signed [facility] Work Phone: Hospital Discharge instructions Additional Instructions Please return if you lose consciousness, if you develop chest pain, if you have shortness of breath we have difficulty with exertion. Please follow-up with the family practice physician Dr. Dias. Please get an outpatient stress test for further evaluation of possible heart issues.[facility] Work Phone: Reason for referral (narrative)No reason for referral information availableWMorrow County Hospital Work Phone: Chief Complaint and Reason for Visit Chief Complaint UPPER EXTREMITY Chief Complaint unknown substance in gestion Chief Complaint Admit Date HYPONATREMIA/HTN URGENCY May 03, 2025 6:03pm HYPONATREMIA/HTN URGENCY May 03, 2025 6:06pm Reason for Visit Admit Date Acute hyponatremia May 03, 2025 6:03p m Hyperglycemia May 03, 2025 6:03p m Hypertensive urgency May 03, 2025 6:03 pm Chief Complaint Admit Date HYPONATREMIA/HTN URGENCY May 03, 2025 6:03pm HYPONATREMIA/HTN URGENCY May 03, 2025 6:06pm HYPONATREMIA/HTN URGENCY May 04, 2025 9:11am HYPONATREMIA/HTN URGENCY May 05, 2025 10:04am Chief Complaint Admit Date HYPONATREMIA/HTN URGENCY May 03, 2025 6:03pm HYPONATREMIA/HTN URGENCY May 03, 2025 6:06pm HYPONATREMIA/HTN URGENCY May 04, 2025 9:11am HYPONATREMIA/HTN URGENCY May 05, 2025 10:04am COLONOSCOPY May 12, 2025 1:20 pm Reason for Visit Admit Date Acute hyponatremia May 03, 2025 6:03p m Hyperglycemia May 03, 2025 6:03p m Hypertensive urgency May 03, 2025 6:03 pm Constipation May 12, 2025 1:20 pm Screen for colon cancer May 12, 2025 1:20pm Chief Complaint Admit Date HYPONATREMIA/HTN URGENCY May 03, 2025 6:03pm HYPONATREMIA/HTN URGENCY May 03, 2025 6:06pm HYPONATREMIA/HTN URGENCY May 04, 2025 9:11am HYPONATREMIA/HTN URGENCY May 05, 2025 10:04am COLONOSCOPY May 12, 2025 1:20 pm screening June 10, 2025 12:3 7pm Advance Directives Advance Directive Response Recorded Date/ Time Living Will No September 20 2:16pm Power of Legislators No September 20, 2022 2:16pm Advance Directive Response Recorded Date/ Time Do you have a Healthcare Power of Legislators? No May 03, 2025 3:36pm Advance Directive Response Recorded Date/ Time Do you have a Healthcare Power of Legislators? No May 03, 2025 7:20pm Summary Purpose Family History No Family History Records FoundNo Family History Records Found Additional Source Comments Goals (unrecognized section and content) Goals may be documented in a n alternate sectionGoals may be documented in an alternate sectionGoals may be documented in an alternate section (unrecognized sect ion and content) No Status Records FoundNo Status Records Found INFORMATION SOURCE (unrecogn ized section and content) DATE CREATED AUTHOR 11/18/2022 [facility] DATE CREATED AUTHOR AUTHOR'S ORGANIZ ATION 06/05/2025 [facility] Care Teams (unrecognized sec tion and content) Team Status: Active Member Role Status Dates UMAIR Taveras Primary Care Provider Active Team Status: Inactive Member Role Status Dates Dr. Allan Jc DO Emergency Provider Active Start: May 03, 2025 End: May 05, 2025 UMAIR Taveras Primary Care Provider Active Start: May 03, 2025 End: May 05, 2025 Dr. Meseret Minor DO Admit Provider Active Start : May 03, 2025 End: May 05, 2025 Dr. Meseret Minor DO Other Provider Active Start : May 03, 2025 End: May 05, 2025 Dr. Kevin Singh DO Attending Provider Active Start: May 03, 2025 End: May 05, 2025 Team Status: Active Member Role Status Dates Dr. Allan Jc DO Emergency Provider Active Start: May 03, 2025 UMAIR Taveras Primary Care Provider Active Start: May 03, 2025 Dr. Meseret Minor DO Admit Provider Active Start : May 03, 2025 Dr. Meseret Minor DO Attending Provider Active S tart: May 03, 2025 Dr. Meseret Minor DO Other Provider Active Start : May 03, 2025 Team Status: Active Member Role Status Dates Dr. Allan Jc DO Emergency Provider Active Start: May 04, 2025 UMAIR Taveras Primary Care Provider Active Start: May 04, 2025 Dr. Meseret Minor DO Admit Provider Active Start : May 04, 2025 Dr. Meseret Minor DO Other Provider Active Start : May 04, 2025 Dr. Kevin Singh DO Attending Provider Active Start: May 04, 2025 Dr. Kevin Singh DO Other Provider Active Star t: May 04, 2025 Team Status: Active Member Role Status Dates Dr. Allan Jc DO Emergency Provider Active Start: May 05, 2025 Deborah Roa [employer] MODEL [employer]ILDER-C Primary Care Provider Active Start: May 05, 2025 Dr. Meseret Minor , Admit Provider Active Start : May 05, 2025 Dr. Meseret Minor DO Other Provider Active Start : May 05, 2025 Dr. Kevin Singh DO Attending Provider Active Start: May 05, 2025 Dr. Kevin Singh DO Other Provider Active Star t: May 05, 2025 Team Status: Active Member Role Status Dates No Primary Care Physician Family Provider Active No Primary Care Physician Primary Care Provider Active Team Status: Inactive Member Role Status Dates No Primary Care Physician Primary Care Provider Active Dr. Henrik Garza DO Emergency Provider Active Team Status: Active Member Role Status Dates Dr. Allan Jc DO Emergency Provider Active Start: May 03, 2025 Deborah Roa [employer]DEL [employer]ILDER-C Primary Care Provider Active Start: May 03, 2025 Dr. Meseret Minor DO Admit Provider Active Start : May 03, 2025 Dr. Meseret Minor DO Attending Provider Active S tart: May 03, 2025 Team Status: Inactive Member Role Status Dates No Primary Care Physician Referring Provider Active Start: May 12, 2025 End: May 12, 2025 Dr. Betty Steel MD Attending Provider Active Start: May 12, 2025 End: May 12, 2025 Deborah Roa , [employer] Primary Care Provider Active Start: May 12, 2025 End: May 12, 2025 Team Status: Active Member Role/Relationship Status Dates Deborah Roa [employer]-C Primary Care Provider Active Team Status: Inactive Member Role/Relationship Status Dates Dr. Allan Jc DO Emergency Provider Active Start: May 03, 2025 End: May 05, 2025 Deborah Crispin , [employer]DEL [employer]-C Primary Care Provider Active Start: May 03, 2025 End: May 05, 2025 Dr. Meseret Minor DO Admit Provider Active Start : May 03, 2025 End: May 05, 2025 Dr. Meseret Minor DO Other Provider Active Start : May 03, 2025 End: May 05, 2025 Dr. Kevin Singh DO Attending Provider Active Start: May 03, 2025 End: May 05, 2025 Team Status: Active Member Role/Relationship Status Dates Dr. Allan Jc DO Emergency Provider Active Start: May 03, 2025 Deborah Roa [employer] Primary Care Provider Active Start: May 03, 2025 Dr. Meseret Minor DO Admit Provider Active Start : May 03, 2025 Dr. Meseret Minor DO Attending Provider Active S tart: May 03, 2025 Dr. Meseret Minor DO Other Provider Active Start : May 03, 2025 Team Status: Active Member Role/Relationship Status Dates Dr. Allan Jc DO Emergency Provider Active Start: May 04, 2025 Deborah Roa [employer]DEL [employer]-C Primary Care Provider Active Start: May 04, 2025 Dr. Meseret Minor DO Admit Provider Active Start : May 04, 2025 Dr. Meseret Minor DO Other Provider Active Start : May 04, 2025 Dr. Kevin Singh DO Attending Provider Active Start: May 04, 2025 Dr. Kevin Singh DO Other Provider Active Star t: May 04, 2025 Team Status: Active Member Role/Relationship Status Dates Dr. Allan Jc DO Emergency Provider Active Start: May 05, 2025 Deborah Roa [employer]-C Primary Care Provider Active Start: May 05, 2025 Dr. Meseret Minor DO Admit Provider Active Start : May 05, 2025 Dr. Meseret Minor DO Other Provider Active Start : May 05, 2025 Dr. Kevin Singh DO Attending Provider Active Start: May 05, 2025 Dr. Kevin Singh DO Other Provider Active Star t: May 05, 2025 Team Status: Inactive Member Role/Relationship Status Dates No Primary Care Physician Referring Provider Active Start: May 12, 2025 End: May 12, 2025 Dr. Betty Steel MD Attending Provider Active Start: May 12, 2025 End: May 12, 2025 Deborah Roa [employer] Primary Care Provider Active Start: May 12, 2025 End: May 12, 2025 Team Status: Inactive Member Role/Relationship Status Dates UMAIR Taveras Primary Care Provider Active Start: May 20, 2025 End: May 20, 2025 UMAIR Taveras Attending Provider Active St art: May 20, 2025 End: May 20, 2025 Team Status: Inactive Member Role/Relationship Status Dates UMAIR Taveras Primary Care Provider Active Start: May 29, 2025 End: May 29, 2025 UMAIR Taveras Attending Provider Active St art: May 29, 2025 End: May 29, 2025 Team Status: Inactive Member Role/Relationship Status Dates UMAIR Taveras Primary Care Provider Active Start: June 10, 2025 End: June 10, 2025 UMAIR Taveras Referring Provider Active St art: June 10, 2025 End: June 10, 2025 Anay Bull NP [employer] Attending Provider Active Start: June 10, 2025 End: June 10, 2025 FOR RECORDS PERTAINING TO PATIENTS WHO ARE [...] BE BASED ON THE PRIMARY CLINICAL RECORDS. [facility] Compound Time [facility]. provides no warranty or guarantee [id number] the accuracy [phone] completeness of information in this [id number]
--- OUTSIDE RECORDS SUMMARY | 2025-06-10 21:42 | XMS RPT_ITS | CCD ---
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 OSIRIS BARRETT Attending Un available Tony Altman Attending Unavaila ble PCP, Pt States None Referring Unavailable Dr. Allan Jc DO Emergency Provider Crispin COMPOSITE BOND TECHNICIAN-C, Deborah Primary Care Provider Dr. Meseret Minor DO Admit Provider Dr. Meseret Minor DO Attending Provider Dr. Meseret Minor DO Other Provider Dr. Meseret Minor DO Other Provider Dr. Kevin Singh DO Attending Provider Dr. Meseret Minor DO Attending Provider Dr. Kevin Singh DO Other Provider Care Physician, No Primary Referring Provider Un available Dr. Betty Steel MD Attending Provider Crispin COMPOSITE BOND TECHNICIAN-C, Deborah Attending Provider [phone] Crispin, Deborah Primary Care Unavailable Meseret Minor Admitting Unavailable Kevin Singh Attending Unavailable Meseret Minor Consulting Unavailable Kevin Singh Consulting Unavailable Meseret Minor Attending Unavailable Crispin, Deborah Primary Care Unavailable Betty Steel Attending Unavailable Care Physician, No Primary Referring Unava ilable Crispin, Deborah Attending Unavailable Crispin, Deborah Referring Unavailable Crispin, Deborah Primary Care Unavailable Jorgito COMPOSITE BOND TECHNICIAN, Anay Attending Unavailable Jorgito COMPOSITE BOND TECHNICIAN, Anay Referring Unavailable Crispin, Deborah Primary Care Unavailable Crispin, Deborah Attending Unavailable Crispin, Deborah Primary Care Unavailable Crispin, Deborah Attending Unavailable Crispin, Deborah Primary Care Unavailable Meseret Minor Consulting Unavailable Kevin Singh Attending Unavailable Meseret Minor Admitting Unavailable Deborah Roa Primary Care Unavailable Betty Steel Attending Unavailable CrispinCecilioDeborah Primary Care Unavailable Crispin COMPOSITE BOND TECHNICIANJuan CarlosCDeborah Referring Provider Jorgito COMPOSITE BOND TECHNICIANAnay Barragan Attending Provider Medications Current Medications Medication [...] 05-29-2025 Anion gap [Moles/Vol] 10 mmol/L 04-10 [facility] BUN/creatinine ratioOrdered By: Deborah Roa on 05-29-2025 Urea nitrogen/Creatinine [Mass ratio] 15.7 mg/mg 09-15 [facility] Basic Metabolic Profile (BMP )on 05-29-2025 BUN/CRE 15.7 RATIO Normal 10-20 [facility] Comment on above: Performed By: #### L 500.4050, L501.5200 #### [facility] [address] [place], [address] Calcium [Mass/Vol] 9.1 mg/dL Normal 7.6-11.0 [facility] Comment on above: Performed By: #### L 500.4050, L501.5200 #### [facility] [address] [place], [address] Chloride [Moles/Vol] 90 mmol/L Low 98-108 [facility] Comment on above: Performed By: #### L 500.4050, L501.5200 #### [facility] [address] [place], [address] CO2 [Moles/Vol] 23.5 mmol/L Normal 21.0-32.0 [facility] Comment on above: Performed By: #### L 500.4050, L501.5200 #### [facility] [address] [place], [address] Creatinine [Mass/Vol] 0.75 mg/dL Normal 0.70-1.20 [facility] Comment on above: Performed By: #### L 500.4050, L501.5200 #### [facility] [address] [place], [address] GAP 10 Normal 5-15 [facility] Comment on above: Performed By: #### L 500.4050, L501.5200 #### [facility] [address] [place], [address] GFR/1.73 sq M.predicted among non-blacks MDRD (S/P/Bld) [Vol rate/Area] 107 mL/min/{1.73_m2} Normal >60 [facility] Comment on above: Result Comment: mL/m in/1.73m2 CKD-EPI Creatinine Equation (2020) Performed By: #### L 500.4050, L501.5200 #### [facility] [address] [place], [address] Glucose [Mass/Vol] 99 mg/dL Normal 70-99 [facility] Comment on above: Performed By: #### L 500.4050, L501.5200 #### [facility] [address] [place], [address] Potassium [Moles/Vol] 4.6 mmol/L Normal 3.3-5.1 [facility] Comment on above: Performed By: #### L 500.4050, L501.5200 #### [facility] [address] [place], [address] Sodium [Moles/Vol] 123 mmol/L Low 133-145 [facility] Comment on above: Performed By: #### L 500.4050, L501.5200 #### [facility] [address] [place], [address] Urea nitrogen [Mass/Vol] 12 mg/dL Normal 4-19 [facility] Comment on above: Performed By: #### L 500.4050, L501.5200 #### [facility] [address] [place], [address] Carbon dioxide, total [Moles /volume] in Central venous bloodOrdered By: Deborah Roa on 05-29-2025 CO2 [Moles/Vol] 23.5 mmol/L 21.0-32.0 [facility] Chloride assayOrdered By: Ra jacoby Roa on 05-29-2025 Chloride [Moles/Vol] 90 mmol/L Low 98-108 [facility] Glomerular filtration rate ( GFR) estimation/1.73 sq m using serum, plasma, or whole bOrdered By: Deborah Roa on 05-29-2025 GFR/1.73 sq M.predicted among non-blacks MDRD (S/P/Bld) [Vol rate/Area] 107 mL/min/{1.73_m2} >60 [facility] Comment on above: mL/min/1.73m2 CKD-EP I Creatinine Equation (2020) Potassium measurement (mass/ volume)Ordered By: Deborah Roa on 05-29-2025 Potassium (Unsp spec) [Mass/Vol] 4.6 mmol/L 3.3-5.1 [facility] Serum creatinine measurement (mass/volume)Ordered By: Deborah Roa on 05-29-2025 Creatinine [Mass/Vol] 0.75 mg/dL 0.70-1.20 [facility] Serum glucose measurement (m ass/volume)Ordered By: Deborah Roa on 05-29-2025 Glucose [Mass/Vol] 99 mg/dL 70-99 [facility] Serum or plasma calcium pepe urement (mass/volume)Ordered By: Deborah Roa on 05-29-2025 Calcium [Mass/Vol] 9.1 mg/dL 7.6-11.0 [facility] Serum or plasma urea nitroge n measurement (mass/volume)Ordered By: Deborah Roa on 05-29-2025 Urea nitrogen [Mass/Vol] 12 mg/dL 4-19 [facility] Sodium levelOrdered By: Gale Roa on 05-29-2025 Sodium [Moles/Vol] 123 mmol/L Low 133-145 [facility] Anion gap in Serum or Plasma Ordered By: Deborah Roa on 05-20-2025 Anion gap [Moles/Vol] 11 mmol/L 5-15 [facility] BUN/creatinine ratioOrdered By: Deborah Roa on 05-20-2025 Urea nitrogen/Creatinine [Mass ratio] 6.7 mg/mg Low 10- [facility] Basic Metabolic Profile (BMP )on 05-20-2025 BUN/CRE 6.7 RATIO Low 09-15 [facility] Comment on above: Performed By: #### L 500.9936 #### [facility] [address] [place], [address] Calcium [Mass/Vol] 8.9 mg/dL Normal 7.6-11.0 [facility] Comment on above: Performed By: #### L 500.2500 #### [facility] [address] [place], [address] Chloride [Moles/Vol] 83 mmol/L Low 98-108 [facility] Comment on above: Performed By: #### L 500.2500 #### [facility] [address] [place], [address] CO2 [Moles/Vol] 23.2 mmol/L Normal 21.0-32.0 [facility] Comment on above: Performed By: #### L 500.2500 #### [facility] [address] [place], [address] Creatinine [Mass/Vol] 0.69 mg/dL Low 0.70-1.20 [facility] Comment on above: Performed By: #### L 500.2500 #### [facility] [address] [place], [address] GAP 11 Normal 5-15 [facility] Comment on above: Performed By: #### L 500.2500 #### [facility] [address] [place], [address] GFR/1.73 sq M.predicted among non-blacks MDRD (S/P/Bld) [Vol rate/Area] 109 mL/min/{1.73_m2} Normal >60 [facility] Comment on above: Result Comment: mL/m in/1.73m2 CKD-EPI Creatinine Equation (2020) Performed By: #### L 500.2500 #### [facility] [address] [place], [address] Glucose [Mass/Vol] 105 mg/dL High 70-99 [facility] Comment on above: Performed By: #### L 500.2500 #### [facility] [address] [place], [address] Potassium [Moles/Vol] 4.3 mmol/L Normal 3.3-5.1 [facility] Comment on above: Performed By: #### L 500.2500 #### [facility] [address] [place], [place], [id number] Sodium [Moles/Vol] 118 mmol/L Invalid Interpretation Code 133-145 [facility] Comment on above: Result Comment: Crit ical Result(s) Called at: by:??Results read back by same. CALLED OFFICE AND LEFT MESSAGE AT 1622 Critical Result(s) Called at: by:??Results read back by same. Performed By: #### L 500.2500 #### [facility] [address] [place], [place], [address] Urea nitrogen [Mass/Vol] 5 mg/dL Normal 4-19 [facility] Comment on above: Performed By: #### L 500.2500 #### [facility] [address] [place], [place], [address] Carbon dioxide, total [Moles /volume] in Central venous bloodOrdered By: Deborah Roa on 05-20-2025 CO2 [Moles/Vol] 23.2 mmol/L 21.0-32.0 [facility] Chloride assayOrdered By: Ra jacoby Roa on 05-20-2025 Chloride [Moles/Vol] 83 mmol/L Low 98-108 [facility] Glomerular filtration rate ( GFR) estimation/1.73 sq m using serum, plasma, or whole bOrdered By: Deborah Roa on 05-20-2025 GFR/1.73 sq M.predicted among non-blacks MDRD (S/P/Bld) [Vol rate/Area] 109 mL/min/{1.73_m2} >60 [facility] Comment on above: mL/min/1.73m2 CKD-EP I Creatinine Equation (2020) Potassium measurement (mass/ volume)Ordered By: Deborah Roa on 05-20-2025 Potassium (Unsp spec) [Mass/Vol] 4.3 mmol/L 3.3-5.1 [facility] Serum creatinine measurement (mass/volume)Ordered By: Deborah Roa on 05-20-2025 Creatinine [Mass/Vol] 0.69 mg/dL Low 0.70-1.20 [facility] Serum glucose measurement (m ass/volume)Ordered By: Deborah Crispin on 05-20-2025 Glucose [Mass/Vol] 105 mg/dL High 70-99 [facility] Serum or plasma calcium pepe urement (mass/volume)Ordered By: Deborah Crispin on 05-20-2025 Calcium [Mass/Vol] 8.9 mg/dL 7.6-11.0 [facility] Serum or plasma urea nitroge n measurement (mass/volume)Ordered By: Deborahtony Roa on 05-20-2025 Urea nitrogen [Mass/Vol] 5 mg/dL 4-19 [facility] Sodium levelOrdered By: Gale tisha Stephensongar on 05-20-2025 Sodium [Moles/Vol] 118 mmol/L Low 133-145 [facility] Comment on above: Critical Result(s) C alled at: by: Results read back by same.CALLED OFFICE AND LEFT MESSAGE AT 1622Critical Result(s) Called at: by: Results read back by same. Surgery Visit Reporton 05-12 Surgery Visit Report [facility] [address] [place] [address]. [address] [place] [address] OFFICE VISIT Date of Service: 05/12/25 MR#: [id number] Acct: [id number] Name: LYNNETTE GONG Rep #: [id number] : 1970 Provider: Dr. Betty brooke MD Age/Sex: 54/M Location: [facility] Status: Signed Intake Vital Signs 02/04/24 17:39 [...] mg PO QDAY 05/12/25 05/12/25 His renettay [facility] Medical History (Updated 05/14/25 @ 08:19 by [...] of clear (more content not included)... Normal [facility] Anion gap in Serum or Plasma Ordered By: Kevin Singh on 05-05-2025 Anion gap [Moles/Vol] 10 mmol/L 5-15 [facility] BUN/creatinine ratioOrdered By: Kevin Singh on 05-05-2025 Urea nitrogen/Creatinine [Mass ratio] 7.9 mg/mg Low 10- [facility] Basic Metabolic Profile (BMP )on 05-05-2025 BUN/CRE 7.9 RATIO Low - [facility] Comment on above: Performed By: #### L 500.4050, L501.5200 #### [facility] [address] [place], [place], [id number] Calcium [Mass/Vol] 8.7 mg/dL Normal 7.6-11.0 [facility] Comment on above: Performed By: #### L 500.4050, L501.5200 #### [facility] [address] [place], [address] Chloride [Moles/Vol] 93 mmol/L Low 98-108 [facility] Comment on above: Performed By: #### L 500.4050, L501.5200 #### [facility] [address] [place], [address] CO2 [Moles/Vol] 23.7 mmol/L Normal 21.0-32.0 [facility] Comment on above: Performed By: #### L 500.4050, L501.5200 #### [facility] [address] [place], [address] Creatinine [Mass/Vol] 0.73 mg/dL Normal 0.70-1.20 [facility] Comment on above: Performed By: #### L 500.4050, L501.5200 #### [facility] [address] [place], [address] ECRCL 163.37 ml/min Normal 50-250 [facility] Comment on above: Performed By: #### L 500.4050, L501.5200 #### [facility] [address] [place], [address] GAP 10 Normal 5-15 [facility] Comment on above: Performed By: #### L 500.4050, L501.5200 #### [facility] [address] [place], [address] GFR/1.73 sq M.predicted among non-blacks MDRD (S/P/Bld) [Vol rate/Area] 107 mL/min/{1.73_m2} Normal >60 [facility] Comment on above: Result Comment: mL/m in/1.73m2 CKD-EPI Creatinine Equation (2020) Performed By: #### L 500.4050, L501.5200 #### [facility] [address] [place], [address] Glucose [Mass/Vol] 105 mg/dL High 70-99 [facility] Comment on above: Performed By: #### L 500.4050, L501.5200 #### [facility] [address] [place], [address] Potassium [Moles/Vol] 4.1 mmol/L Normal 3.3-5.1 [facility] Comment on above: Performed By: #### L 500.4050, L501.5200 #### [facility] [address] [place], [address] Sodium [Moles/Vol] 127 mmol/L Low 133-145 [facility] Comment on above: Performed By: #### L 500.4050, L501.5200 #### [facility] [address] [place], [address] Urea nitrogen [Mass/Vol] 6 mg/dL Normal 4-19 [facility] Comment on above: Performed By: #### L 500.4050, L501.5200 #### [facility] [address] [place], [address] Carbon dioxide, total [Moles /volume] in Central venous bloodOrdered By: Kevin Singh on 05-05-2025 CO2 [Moles/Vol] 23.7 mmol/L 21.0-32.0 [facility] Chloride assayOrdered By: Norris Singh on 05-05-2025 Chloride [Moles/Vol] 93 mmol/L Low 98-108 [facility] Electrocardiogram reportOrde red By: Patrick Tian on 05-05-2025 EKG study [facility] [address] [place] [address] 12 Lead EKG 05/03/25 1622 MR#: [id number] Acct: [id number] Name: LYNNETTE GONG Rep #:[id number] : 1970 54 From: Patrick meadows MD Attending Dr: Dr. Kevin Singh DO Status: ADM IN Ordering Dr: Allan Jc DO Date: Location: [facility] Sex: M C Admitted: 05/03/25 Test Reason [...] block ABNORMAL ECG Confirmed by Patrick Tian ([id number]), art editor TITO FRIAS ([id number]) on 05/05/2025 9:20:06 AM Referred By: Confirmed By: Patrick Tian 05/05/25919 Date _ Patrick Tian MD CC: COMPOSITE BOND TECHNICIAN-Juju Roa; Dr. Kevin Singh DO; Dr. Allan Jc DO ~ Signed [facility] Other Phone: Glomerular filtration rate ( GFR) estimation/1.73 sq m using serum, plasma, or whole bOrdered By: Kevin Singh on 05-05-2025 GFR/1.73 sq M.predicted among non-blacks MDRD (S/P/Bld) [Vol rate/Area] 107 mL/min/{1.73_m2} >60 [facility] Comment on above: mL/min/1.73m2 CKD-EP I Creatinine Equation (2020) Potassium measurement (mass/ volume)Ordered By: Kevin Singh on 05-05-2025 Potassium (Unsp spec) [Mass/Vol] 4.1 mmol/L 3.3-5.1 [facility] Serum creatinine measurement (mass/volume)Ordered By: Kevin Singh on 05-05-2025 Creatinine [Mass/Vol] 0.73 mg/dL 0.70-1.20 [facility] Serum glucose measurement (m ass/volume)Ordered By: Kevin Singh on 05-05-2025 Glucose [Mass/Vol] 105 mg/dL High 70-99 [facility] Serum or plasma calcium pepe urement (mass/volume)Ordered By: Kevin Singh on 05-05-2025 Calcium [Mass/Vol] 8.7 mg/dL 7.6-11.0 [facility] Serum or plasma urea nitroge n measurement (mass/volume)Ordered By: Kevin Singh on 05-05-2025 Urea nitrogen [Mass/Vol] 6 mg/dL 4-19 [facility] Sodium levelOrdered By: Kevin Singh on 05-05-2025 Sodium [Moles/Vol] 127 mmol/L Low 133-145 [facility] Absolute lymphocyte countOrd ered By: Meseret Minor on 05-04-2025 Lymphocytes Auto (Unsp spec) [#/Vol] 2.08 10*3/uL 0.83-4.51 [facility] Absolute neutrophil countOrd ered By: Meseret Minor on 05-04-2025 Neutrophils (Bld) [#/Vol] 6.0 10*3/uL 2.0-7.7 [facility] Automated lymphocyte count a s percentage of total leukocytesOrdered By: Meseret Minor on 05-04-2025 Lymphocytes/100 WBC Auto (Unsp spec) 22.7 % 19-41 [facility] Basic Metabolic Profile (BMP )on 05-04-2025 BUN/CRE 11.4 RATIO Normal 10-20 [facility] Comment on above: Performed By: #### L 500.2500 #### [facility] [address] [place], [address] Calcium [Mass/Vol] 8.8 mg/dL Normal 7.6-11.0 [facility] Comment on above: Performed By: #### L 500.2500 #### [facility] [address] [place], [address] Chloride [Moles/Vol] 90 mmol/L Low 98-108 [facility] Comment on above: Performed By: #### L 500.2500 #### [facility] [address] [place], [address] CO2 [Moles/Vol] 20.0 mmol/L Low 21.0-32.0 [facility] Comment on above: Performed By: #### L 500.2500 #### [facility] [address] [place], [address] Creatinine [Mass/Vol] 0.64 mg/dL Low 0.70-1.20 [facility] Comment on above: Performed By: #### L 500.2500 #### [facility] [address] [place], [address] ECRCL 187.67 ml/min Normal 50-250 [facility] Comment on above: Performed By: #### L 500.2500 #### [facility] [address] [place], [address] GAP 11 Normal 5-15 [facility] Comment on above: Performed By: #### L 500.2500 #### [facility] [address] [place], [address] GFR/1.73 sq M.predicted among non-blacks MDRD (S/P/Bld) [Vol rate/Area] 112 mL/min/{1.73_m2} Normal >60 [facility] Comment on above: Result Comment: mL/m in/1.73m2 CKD-EPI Creatinine Equation (2020) Performed By: #### L 500.2500 #### [facility] [address] [place], [address] Glucose [Mass/Vol] 114 mg/dL High 70-99 [facility] Comment on above: Performed By: #### L 500.2500 #### [facility] [address] [place], [address] Potassium [Moles/Vol] 4.4 mmol/L Normal 3.3-5.1 [facility] Comment on above: Performed By: #### L 500.2500 #### [facility] [address] [place], [address] Sodium [Moles/Vol] 121 mmol/L Low 133-145 [facility] Comment on above: Performed By: #### L 500.2500 #### [facility] [address] [place], [address] Urea nitrogen [Mass/Vol] 7 mg/dL Normal 4-19 [facility] Comment on above: Performed By: #### L 500.2500 #### [facility] [address] [place], [address] BUN Normal 4-19 [facility] Comment on above: Result Comment: CANC ELLATION ORDER ENTERED Performed By: #### L 500.4050, L501.5200 #### [facility] [address] [place], [address] BUN/CRE Normal 10-20 [facility] Comment on above: Result Comment: CANC ELLATION ORDER ENTERED Performed By: #### L 500.4050, L501.5200 #### [facility] [address] [place], [address] Calcium Normal 7.6-11.0 [facility] Comment on above: Result Comment: CANC ELLATION ORDER ENTERED Performed By: #### L 500.4050, L501.5200 #### [facility] [address] [place], [address] CL Normal 98-108 [facility] Comment on above: Result Comment: CANC ELLATION ORDER ENTERED Performed By: #### L 500.4050, L501.5200 #### [facility] [address] [place], [address] CO2 Normal 21.0-32.0 [facility] Comment on above: Result Comment: CANC ELLATION ORDER ENTERED Performed By: #### L 500.4050, L501.5200 #### [facility] [address] [place], [address] CREAT,SERUM Normal 0.70-1.20 [facility] Comment on above: Result Comment: CANC ELLATION ORDER ENTERED Performed By: #### L 500.4050, L501.5200 #### [facility] [address] [place], [address] eGFR Normal >60 [facility] Comment on above: Result Comment: CANC ELLATION ORDER ENTERED Performed By: #### L 500.4050, L501.5200 #### [facility] [address] [place], [address] GAP Normal 5-15 [facility] Comment on above: Result Comment: CANC ELLATION ORDER ENTERED Performed By: #### L 500.4050, L501.5200 #### [facility] [address] [place], [address] GLU Normal 70-99 [facility] Comment on above: Result Comment: CANC ELLATION ORDER ENTERED Performed By: #### L 500.4050, L501.5200 #### [facility] [address] [place], [address] Potassium Normal 3.3-5.1 [facility] Comment on above: Result Comment: CANC ELLATION ORDER ENTERED Performed By: #### L 500.4050, L501.5200 #### [facility] [address] [place], [address] Basic Metabolic Profile (BMP) Normal 133-145 [facility] Comment on above: Result Comment: CANC ELLATION ORDER ENTERED Performed By: #### L 500.4050, L501.5200 #### [facility] [address] [place], [address] BUN/CRE 9.3 RATIO Low 10-20 [facility] Comment on above: Performed By: #### L 500.2500 #### [facility] [address] [place], [address] Calcium [Mass/Vol] 8.7 mg/dL Normal 7.6-11.0 [facility] Comment on above: Performed By: #### L 500.2500 #### [facility] [address] [place], [address] Chloride [Moles/Vol] 88 mmol/L Low 98-108 [facility] Comment on above: Performed By: #### L 500.2500 #### [facility] [address] [place], [address] CO2 [Moles/Vol] 21.4 mmol/L Normal 21.0-32.0 [facility] Comment on above: Performed By: #### L 500.2500 #### [facility] [address] [place], [address] Creatinine [Mass/Vol] 0.71 mg/dL Normal 0.70-1.20 [facility] Comment on above: Performed By: #### L 500.2500 #### [facility] [address] [place], [address] ECRCL 169.17 ml/min Normal 50-250 [facility] Comment on above: Performed By: #### L 500.2500 #### [facility] [address] [place], [address] GAP 12 Normal 5-15 [facility] Comment on above: Performed By: #### L 500.2500 #### [facility] [address] [place], [address] GFR/1.73 sq M.predicted among non-blacks MDRD (S/P/Bld) [Vol rate/Area] 108 mL/min/{1.73_m2} Normal >60 [facility] Comment on above: Result Comment: mL/m in/1.73m2 CKD-EPI Creatinine Equation (2020) Performed By: #### L 500.2500 #### [facility] [address] [place], [address] Glucose [Mass/Vol] 98 mg/dL Normal 70-99 [facility] Comment on above: Performed By: #### L 500.2500 #### [facility] [address] [place], [address] Potassium [Moles/Vol] 3.8 mmol/L Normal 3.3-5.1 [facility] Comment on above: Performed By: #### L 500.2500 #### [facility] [address] [place], [address] Sodium [Moles/Vol] 121 mmol/L Low 133-145 [facility] Comment on above: Performed By: #### L 500.2500 #### [facility] [address] [place], [address] Urea nitrogen [Mass/Vol] 7 mg/dL Normal 4-19 [facility] Comment on above: Performed By: #### L 500.2500 #### [facility] [address] [place], [address] Basophil percentageOrdered B y: Meseret Minor on 05-04-2025 Basophils/100 WBC (Bld) 0.7 % 0-1 [facility] Bilirubin, totalOrdered By: Meseret Minor on 05-04-2025 Bilirubin [Mass/Vol] 0.56 mg/dL 0.00-1.30 [facility] CBC W/Diff, Automatedon Absolute Lymph 2.08 X10 3/uL Normal 0.83-4.51 [facility] Comment on above: Performed By: #### L 500.4050, L501.5200 #### [facility] [address] [place], [address] Absolute Neut 6.0 X10 3/uL Normal 2.0-7.7 [facility] Comment on above: Performed By: #### L 500.4050, L501.5200 #### [facility] [address] [place], [address] Basophils/100 WBC (Bld) 0.7 % Normal 0-1 [facility] Comment on above: Performed By: #### L 500.4050, L501.5200 #### [facility] [address] [place], [address] Eosinophils/100 WBC (Bld) 0.2 % Normal 0-5 [facility] Comment on above: Performed By: #### L 500.4050, L501.5200 #### [facility] [address] [place], [address] Erythrocyte distribution width (RBC) [Ratio] 12.6 % Normal 11.6-14.6 [facility] Comment on above: Performed By: #### L 500.4050, L501.5200 #### [facility] [address] [place], [address] Hematocrit (Bld) [Volume fraction] 37.9 % Low 40-54 [facility] Comment on above: Performed By: #### L 500.4050, L501.5200 #### [facility] [address] [place], [address] Hemoglobin (Bld) [Mass/Vol] 14.0 g/dL Normal 13.0-16.5 [facility] Comment on above: Performed By: #### L 500.4050, L501.5200 #### [facility] [address] [place], [address] IG% 0.800 Normal 0.0-0.9 [facility] Comment on above: Result Comment: IG% - Immature Granulocytes (promyelocytes, myelocytes and metamyelocytes) > 1% indicates that a LEFT SHIFT is Present. Performed By: #### L 500.4050, L501.5200 #### [facility] [address] [place], [address] Lymphocytes/100 WBC (Bld) 22.7 % Normal 19-41 [facility] Comment on above: Performed By: #### L 500.4050, L501.5200 #### [facility] [address] [place], [address] MCH (RBC) [Entitic mass] 30.0 pg Normal 27.0-32.0 [facility] Comment on above: Performed By: #### L 500.4050, L501.5200 #### [facility] [address] [place], [address] MCHC (RBC) [Mass/Vol] 36.9 g/dL High 32-36 [facility] Comment on above: Performed By: #### L 500.4050, L501.5200 #### [facility] [address] [place], [address] MCV (RBC) [Entitic vol] 81.3 fL Normal 80-94 [facility] Comment on above: Performed By: #### L 500.4050, L501.5200 #### [facility] [address] [place], [address] Monocytes/100 WBC (Bld) 10.3 % High 0-10 [facility] Comment on above: Performed By: #### L 500.4050, L501.5200 #### [facility] [address] [place], [address] Neutrophils/100 WBC (Bld) 65.3 % Normal 47-70 [facility] Comment on above: Performed By: #### L 500.4050, L501.5200 #### [facility] [address] [place], [address] Nucleated RBC (Bld) [#/Vol] 0 10*3/uL Normal 0-5 [facility] Comment on above: Performed By: #### L 500.4050, L501.5200 #### [facility] [address] [place], [address] Platelet mean volume (Bld) [Entitic vol] 9.1 fL Normal 6.2-12.0 [facility] Comment on above: Performed By: #### L 500.4050, L501.5200 #### [facility] [address] [place], [address] Platelets (Bld) [#/Vol] 252 10*3/uL Normal 150-450 [facility] Comment on above: Performed By: #### L 500.4050, L501.5200 #### [facility] [address] [place], [address] RBC (Bld) [#/Vol] 4.66 10*6/uL Normal 4.6-6.2 [facility] Comment on above: Performed By: #### L 500.4050, L501.5200 #### [facility] [address] [place], [address] RDW SD 37.4 fl Normal 35.1-43.9 [facility] Comment on above: Performed By: #### L 500.4050, L501.5200 #### [facility] [address] [place], [address] WBC (Bld) [#/Vol] 9.2 10*3/uL Normal 4.4-11.0 [facility] Comment on above: Performed By: #### L 500.4050, L501.5200 #### [facility] [address] [place], [address] Comprehensive Metabolic Prof [facility] 05-04-2025 Albumin [Mass/Vol] 3.9 g/dL Normal 3.5-5.0 [facility] Comment on above: Performed By: #### L 500.4050, L501.5200 #### [facility] [address] [place], [address] Albumin/Globulin [Mass ratio] 1.6 {ratio} Normal 0.9-2.4 [facility] Comment on above: Performed By: #### L 500.4050, L501.5200 #### [facility] [address] [place], [address] ALK PHOS 56 U/L Normal 40-129 [facility] Comment on above: Performed By: #### L 500.4050, L501.5200 #### [facility] [address] [place], [address] ALT [Catalytic activity/Vol] 12 U/L Normal <=46 [facility] Comment on above: Performed By: #### L 500.4050, L501.5200 #### [facility] [address] [place], [address] AST [Catalytic activity/Vol] 20 U/L Normal <=37 [facility] Comment on above: Performed By: #### L 500.4050, L501.5200 #### [facility] [address] [place], [address] Bilirubin [Mass/Vol] 0.56 mg/dL Normal 0.00-1.30 [facility] Comment on above: Performed By: #### L 500.4050, L501.5200 #### [facility] [address] [place], [address] BUN/CRE 9.3 RATIO Low 10-20 [facility] Comment on above: Performed By: #### L 500.4050, L501.5200 #### [facility] [address] [place], [address] Calcium [Mass/Vol] 8.7 mg/dL Normal 7.6-11.0 [facility] Comment on above: Performed By: #### L 500.4050, L501.5200 #### [facility] [address] [place], [address] Chloride [Moles/Vol] 89 mmol/L Low 98-108 [facility] Comment on above: Performed By: #### L 500.4050, L501.5200 #### [facility] [address] [place], [address] CO2 [Moles/Vol] 22.0 mmol/L Normal 21.0-32.0 [facility] Comment on above: Performed By: #### L 500.4050, L501.5200 #### [facility] [address] [place], [address] Creatinine [Mass/Vol] 0.62 mg/dL Low 0.70-1.20 [facility] Comment on above: Performed By: #### L 500.4050, L501.5200 #### [facility] [address] [place], [address] ECRCL 193.73 ml/min Normal 50-250 [facility] Comment on above: Performed By: #### L 500.4050, L501.5200 #### [facility] [address] [place], [address] GAP 11 Normal 5-15 [facility] Comment on above: Performed By: #### L 500.4050, L501.5200 #### [facility] [address] [place], [address] GFR/1.73 sq M.predicted among non-blacks MDRD (S/P/Bld) [Vol rate/Area] 113 mL/min/{1.73_m2} Normal >60 [facility] Comment on above: Result Comment: mL/m in/1.73m2 CKD-EPI Creatinine Equation (2020) Performed By: #### L 500.4050, L501.5200 #### [facility] [address] [place], [address] Globulin (S) [Mass/Vol] 2.4 g/dL Normal 2.2-4.2 [facility] Comment on above: Performed By: #### L 500.4050, L501.5200 #### [facility] [address] [place], [address] Glucose [Mass/Vol] 101 mg/dL High 70-99 [facility] Comment on above: Performed By: #### L 500.4050, L501.5200 #### [facility] [address] [place], [address] Potassium [Moles/Vol] 3.8 mmol/L Normal 3.3-5.1 [facility] Comment on above: Performed By: #### L 500.4050, L501.5200 #### [facility] [address] [place], [address] Sodium [Moles/Vol] 123 mmol/L Low 133-145 [facility] Comment on above: Performed By: #### L 500.4050, L501.5200 #### [facility] [address] [place], [address] T PROT 6.3 g/dL Normal 5.9-8.4 [facility] Comment on above: Performed By: #### L 500.4050, L501.5200 #### [facility] [address] [place], [address] Urea nitrogen [Mass/Vol] 6 mg/dL Normal 4-19 [facility] Comment on above: Performed By: #### L 500.4050, L501.5200 #### [facility] [address] [place], [address] Eosinophil percentageOrdered By: Meseret Minor on 05-04-2025 Eosinophils/100 WBC (Bld) 0.2 % 0-5 [facility] Erythrocyte distribution wid th ratioOrdered By: Meseret Minor on 05-04-2025 Erythrocyte distribution width (RBC) [Ratio] 12.6 % 11.6-14.6 [facility] Erythrocyte distribution wid th standard deviationOrdered By: Meseret Minor on 05-04-2025 Erythrocyte distribution width (RBC) [Ratio] 37.4 fl 35.1-43.9 [facility] Hematocrit Auto (Bld) [Volum e fraction]Ordered By: Meseret Minor on 05-04-2025 Hematocrit (Bld) [Volume fraction] 37.9 % Low 40-54 [facility] Hemoglobin measurementOrdere d By: Meseret Minor on 05-04-2025 Hemoglobin (Bld) [Mass/Vol] 14.0 g/dL 13.0-16.5 [facility] Immature granulocytes/100 WB C Auto (Bld)Ordered By: Meseret Minor on 05-04-2025 Immature granulocytes/100 WBC (Bld) 0.800 % 0.0-0.9 [facility] Comment on above: IG% - Immature Granu locytes (promyelocytes, myelocytes and metamyelocytes) > 1% indicates that a LEFT SHIFT is Present. Laboratory - Chemistry and C hemistry - challengeOrdered By: Meseret Minor on 05-04-2025 AST [Catalytic activity/Vol] 20 U/L <38 [facility] MCV (mean corpuscular volume ) determinationOrdered By: Meseret Minor on 05-04-2025 MCV (RBC) [Entitic vol] 81.3 fL 80-94 [facility] Magnesiumon 05-04-2025 Magnesium [Mass/Vol] 1.9 mg/dL Normal 1.5-2.2 [facility] Comment on above: Performed By: #### L 500.4050, L501.5200 #### [facility] [address] [place], [address] Magnesium measurement (mass/ volume)Ordered By: Meseret Minor on 05-04-2025 Magnesium (Unsp spec) [Mass/Vol] 1.9 mg/dL 1.5-2.2 [facility] Mean corpuscular hemoglobin (MCH) determinationOrdered By: Meseret Minor on 05-04-2025 MCH (RBC) [Entitic mass] 30.0 pg 27.0-32.0 [facility] Mean corpuscular hemoglobin concentration (MCHC) determinationOrdered By: Meseret Minor on 05-04-2025 MCHC (RBC) [Mass/Vol] 36.9 g/dL High 32-36 [facility] Mean platelet volume determi nationOrdered By: Meseret Minor on 05-04-2025 Platelet mean volume (Bld) [Entitic vol] 9.1 fL 6.2-12.0 [facility] Monocyte percentageOrdered B y: Meseret Minor on 05-04-2025 Monocytes/100 WBC (Bld) 10.3 % High 0-10 [facility] Neutrophil percentageOrdered By: Meseret Minor on 05-04-2025 Neutrophils/100 WBC (Bld) 65.3 % 47-70 [facility] Nucleated red blood cell per centageOrdered By: Meseret Minor on 05-04-2025 Nucleated RBC/100 WBC (Bld) [Ratio] 0 % 0-5 [facility] Osmolality, Urineon 05-04-20 25 OSMOLALITY,UR 181 mOsm/KG Normal [facility] Comment on above: Result Comment: Normal Urine Reference Ranges Random: 50 - 1200 mOsm/kg H20 depending on fluid intake Random: >850 mOsm/kg after 12 hour fluid restriction 24 hour: 300 - 900 mOsm/kg H2O Performed By: #### L 501.5500, L501.7400 #### [facility] [address] [place], [address] Phosphoruson 05-04-2025 Phosphate [Mass/Vol] 3.9 mg/dL Normal 2.7-4.5 [facility] Comment on above: Performed By: #### L 500.4050, L501.5200 #### [facility] [address] [place], [address] Platelet countOrdered By: Bhavesh Minor on 05-04-2025 Platelets (Bld) [#/Vol] 252 10*3/uL 150-450 [facility] RBC Auto (Bld) [#/Vol]Ordere d By: Meseret Minor on 05-04-2025 RBC (Bld) [#/Vol] 4.66 10*6/uL 4.6-6.2 [facility] Serum globulin measurementOr dered By: Meseret Minor on 05-04-2025 Globulin (S) [Mass/Vol] 2.4 g/dL 2.2-4.2 [facility] Serum or plasma alanine sanchez otransferase (ALT) measurementOrdered By: Meseret Minor on 05-04-2025 ALT [Catalytic activity/Vol] 12 U/L <47 [facility] Serum or plasma albumin pepe urement (mass/volume)Ordered By: Meseret Minor on 05-04-2025 Albumin [Mass/Vol] 3.9 g/dL 3.5-5.0 [facility] Serum or plasma albumin/glob ulin mass ratioOrdered By: Meseret Minor on 05-04-2025 Albumin/Globulin [Mass ratio] 1.6 {ratio} 0.9-2.4 [facility] Serum or plasma alkaline logan sphatase measurementOrdered By: Meseret Minor on 05-04-2025 ALP [Catalytic activity/Vol] 56 U/L 40-129 [facility] Total proteinOrdered By: Magalie Minor on 05-04-2025 Protein [Mass/Vol] 6.3 g/dL 5.9-8.4 [facility] Urine Drug Screen (VISTA)on 05-04-2025 AMPHETAMINES Negative Normal <1000 ng/mL [facility] Comment on above: Performed By: #### L 505.5000 #### [facility] [address] [place], [address] BARBITIURATES Negative Normal < 200 ng/mL [facility] Comment on above: Performed By: #### L 505.5000 #### [facility] [address] [place], [address] BENZODIAZIPINE Negative Normal < 200 ng/mL [facility] Comment on above: Performed By: #### L 505.5000 #### [facility] [address] [place], [address] BUP Ur Drug Scr Negative Normal < 200 ng/mL [facility] Comment on above: Performed By: #### L 505.5000 #### [facility] [address] [place] [address] COCAINE Negative Normal < 300 ng/mL [facility] Comment on above: Performed By: #### L 505.5000 #### [facility] [address] [place] [address] Fentanyl Negative Normal [facility] Comment on above: Performed By: #### L 505.5000 #### [facility] [address] [place] [address] METHADONE Negative Normal < 300 ng/mL [facility] Comment on above: Performed By: #### L 505.5000 #### [facility] [address] [place] [address] OPIATES Negative Normal < 300 ng/mL [facility] Comment on above: Performed By: #### L 505.5000 #### [facility] [address] [place] [address] OXYCODONE Negative Normal < 100 ng/mL [facility] Comment on above: Performed By: #### L 505.5000 #### [facility] [address] [place] [address] PCP Negative Normal < 25 ng/mL [facility] Comment on above: Performed By: #### L 505.5000 #### [facility] [address] [place] [address] THC Negative Normal < 50 ng/mL [facility] Comment on above: Performed By: #### L 505.5000 #### [facility] [address] [place], [address] Urine Sodiumon 05-04-2025 Sodium (U) [Moles/Vol] 33 mmol/L Normal Not Establ. [facility] Comment on above: Performed By: #### L 501.5500, L501.7400 #### [facility] [address] [facility] [place], [address] White blood cell (WBC) count Ordered By: Meseret Minor on 05-04-2025 WBC (Bld) [#/Vol] 9.2 10*3/uL 4.4-11.0 [facility] 12 Lead EKGon 05-03-2025 12 Lead EKG [facility] [address] [address] 12 Lead EKG 05/03/25 1622 MR#: [id number] Acct: [id number] Name: LYNNETTE GONG Rep #: [id number] : 1970 54 From: Patrick Tian MD Attending Dr: Dr. Kevin Singh DO Status: ADM IN Ordering Dr: Allan Jc DO Date: 05/03/25 Location: [facility] Sex: M C Admitted: 05/03/25 Test Reason [...] block ABNORMAL ECG Confirmed by Patrick Tian ([id number]), art editor TITO FRIAS ([id number]) on 05/05/2025 9:20:06 AM Referred By: Confirmed By: Patrick Tian 05/05/25919 Date Patrick Tian MD CC: COMPOSITE BOND TECHNICIAN-Juju Roa; Dr. Kevin Singh DO; Dr. Allan Jc DO Signed Normal [facility] Absolute lymphocyte countOrd ered By: Allan Jc on 05-03-2025 Lymphocytes Auto (Unsp spec) [#/Vol] 1.81 10*3/uL 0.83-4.51 [facility] Absolute neutrophil countOrd ered By: Allan Jc on 05-03-2025 Neutrophils (Bld) [#/Vol] 8.9 10*3/uL High 2.0-7.7 [facility] Amphetamine detection with 1 000 ng/mL as cutoffOrdered By: Meseret Minor on 05-03-2025 Amphetamines Screen method >1000 ng/mL Ql (U) Negative < 200 ng/mL [facility] Anion gap in Serum or Plasma Ordered By: Allan Jc on 05-03-2025 Anion gap [Moles/Vol] 13 mmol/L 5-15 [facility] Automated lymphocyte count a s percentage of total leukocytesOrdered By: Allan Jc on 05-03-2025 Lymphocytes/100 WBC Auto (Unsp spec) 15.6 % Low 19-41 [facility] BUN/creatinine ratioOrdered By: Allan Jc on 05-03-2025 Urea nitrogen/Creatinine [Mass ratio] 6.9 mg/mg Low 10-20 [facility] Basic Metabolic Profile (BMP )on 05-03-2025 BUN/CRE 7.6 RATIO Low 10-20 [facility] Comment on above: Performed By: #### L 501.5500, L501.7400 #### [facility] [address] [place], [address] Calcium [Mass/Vol] 9.1 mg/dL Normal 7.6-11.0 [facility] Comment on above: Performed By: #### L 501.5500, L501.7400 #### [facility] [address] [place], [address] Chloride [Moles/Vol] 85 mmol/L Low 98-108 [facility] Comment on above: Performed By: #### L 501.5500, L501.7400 #### [facility] [address] [place], [address] CO2 [Moles/Vol] 22.2 mmol/L Normal 21.0-32.0 [facility] Comment on above: Performed By: #### L 501.5500, L501.7400 #### [facility] [address] [place], [address] Creatinine [Mass/Vol] 0.75 mg/dL Normal 0.70-1.20 [facility] Comment on above: Performed By: #### L 501.5500, L501.7400 #### [facility] [address] [place], [address] ECRCL 160.33 ml/min Normal 50-250 [facility] Comment on above: Performed By: #### L 501.5500, L501.7400 #### [facility] [address] [place], [address] GAP 12 Normal 5-15 [facility] Comment on above: Performed By: #### L 501.5500, L501.7400 #### [facility] [address] [place], [address] GFR/1.73 sq M.predicted among non-blacks MDRD (S/P/Bld) [Vol rate/Area] 107 mL/min/{1.73_m2} Normal >60 [facility] Comment on above: Result Comment: mL/m in/1.73m2 CKD-EPI Creatinine Equation (2020) Performed By: #### L 501.5500, L501.7400 #### [facility] [address] [place], [address] Glucose [Mass/Vol] 104 mg/dL High 70-99 [facility] Comment on above: Performed By: #### L 501.5500, L501.7400 #### [facility] [address] [place], [address] Potassium [Moles/Vol] 4.5 mmol/L Normal 3.3-5.1 [facility] Comment on above: Performed By: #### L 501.5500, L501.7400 #### [facility] [address] [place], [address] Sodium [Moles/Vol] 119 mmol/L Invalid Interpretation Code 133-145 [facility] Comment on above: Result Comment: Crit ical Result(s) Called at: 05/03/2025-21:28 by: Cuba Varela to Jolly Worthington.??Results read back by same. Performed By: #### L 501.5500, L501.7400 #### [facility] [address] [place], [address] Urea nitrogen [Mass/Vol] 6 mg/dL Normal 4-19 [facility] Comment on above: Performed By: #### L 501.5500, L501.7400 #### [facility] [address] [place], [address] BUN/CRE 6.9 RATIO Low 10-20 [facility] Comment on above: Performed By: #### L 500.4050, L501.5200 #### [facility] [address] [place], [address] Calcium [Mass/Vol] 9.1 mg/dL Normal 7.6-11.0 [facility] Comment on above: Performed By: #### L 500.4050, L501.5200 #### [facility] [address] [place], [address] Chloride [Moles/Vol] 84 mmol/L Low 98-108 [facility] Comment on above: Performed By: #### L 500.4050, L501.5200 #### [facility] [address] [place], [address] CO2 [Moles/Vol] 21.4 mmol/L Normal 21.0-32.0 [facility] Comment on above: Performed By: #### L 500.4050, L501.5200 #### [facility] [address] [place], [address] Creatinine [Mass/Vol] 0.74 mg/dL Normal 0.70-1.20 [facility] Comment on above: Performed By: #### L 500.4050, L501.5200 #### [facility] [address] [place], [address] ECRCL 162.50 ml/min Normal 50-250 [facility] Comment on above: Performed By: #### L 500.4050, L501.5200 #### [facility] [address] [place], [address] GAP 13 Normal 5-15 [facility] Comment on above: Performed By: #### L 500.4050, L501.5200 #### [facility] [address] [place], [address] GFR/1.73 sq M.predicted among non-blacks MDRD (S/P/Bld) [Vol rate/Area] 107 mL/min/{1.73_m2} Normal >60 [facility] Comment on above: Result Comment: mL/m in/1.73m2 CKD-EPI Creatinine Equation (2020) Performed By: #### L 500.4050, L501.5200 #### [facility] [address] [place], [address] Glucose [Mass/Vol] 113 mg/dL High 70-99 [facility] Comment on above: Performed By: #### L 500.4050, L501.5200 #### [facility] [address] [place], [address] Potassium [Moles/Vol] 4.5 mmol/L Normal 3.3-5.1 [facility] Comment on above: Performed By: #### L 500.4050, L501.5200 #### [facility] [address] [place], [address] Sodium [Moles/Vol] 119 mmol/L Invalid Interpretation Code 133-145 [facility] Comment on above: Result Comment: Crit ical Result(s) Called at: 1620 by: SARA to Adin MATA.??Results read back by same. Performed By: #### L 500.4050, L501.5200 #### [facility] [address] [place], [address] Urea nitrogen [Mass/Vol] 5 mg/dL Normal 4-19 [facility] Comment on above: Performed By: #### L 500.4050, L501.5200 #### [facility] [address] [place], [address] Basophil percentageOrdered B y: Allan Jc on 05-03-2025 Basophils/100 WBC (Bld) 0.5 % 0-1 [facility] Bilirubin Test strip Ql (U)O rdered By: Meseret Minor on 05-03-2025 Bilirubin Ql (U) Negative Negative [facility] CBC W/Diff, Automatedon - Absolute Lymph 1.81 X10 3/uL Normal 0.83-4.51 [facility] Comment on above: Performed By: #### L 500.4050, L501.5200 #### [facility] [address] [place], [address] Absolute Neut 8.9 X10 3/uL High 2.0-7.7 [facility] Comment on above: Performed By: #### L 500.4050, L501.5200 #### [facility] [address] [place], [address] Basophils/100 WBC (Bld) 0.5 % Normal 0-1 [facility] Comment on above: Performed By: #### L 500.4050, L501.5200 #### [facility] [address] [place], [address] Eosinophils/100 WBC (Bld) 0.1 % Normal 0-5 [facility] Comment on above: Performed By: #### L 500.4050, L501.5200 #### [facility] [address] [place], [address] Erythrocyte distribution width (RBC) [Ratio] 12.6 % Normal 11.6-14.6 [facility] Comment on above: Performed By: #### L 500.4050, L501.5200 #### [facility] [address] [place], [address] Hematocrit (Bld) [Volume fraction] 41.1 % Normal 40-54 [facility] Comment on above: Performed By: #### L 500.4050, L501.5200 #### [facility] [address] [place], [address] Hemoglobin (Bld) [Mass/Vol] 14.8 g/dL Normal 13.0-16.5 [facility] Comment on above: Performed By: #### L 500.4050, L501.5200 #### [facility] [address] [place], [address] IG% 0.600 Normal 0.0-0.9 [facility] Comment on above: Result Comment: IG% - Immature Granulocytes (promyelocytes, myelocytes and metamyelocytes) > 1% indicates that a LEFT SHIFT is Present. Performed By: #### L 500.4050, L501.5200 #### [facility] [address] [place], [address] Lymphocytes/100 WBC (Bld) 15.6 % Low 19-41 [facility] Comment on above: Performed By: #### L 500.4050, L501.5200 #### [facility] [address] [place], [address] MCH (RBC) [Entitic mass] 29.2 pg Normal 27.0-32.0 [facility] Comment on above: Performed By: #### L 500.4050, L501.5200 #### [facility] [address] [place], [address] MCHC (RBC) [Mass/Vol] 36.0 g/dL Normal 32-36 [facility] Comment on above: Performed By: #### L 500.4050, L501.5200 #### [facility] [address] [place], [address] MCV (RBC) [Entitic vol] 81.2 fL Normal 80-94 [facility] Comment on above: Performed By: #### L 500.4050, L501.5200 #### [facility] [address] [place], [address] Monocytes/100 WBC (Bld) 6.7 % Normal 0-10 [facility] Comment on above: Performed By: #### L 500.4050, L501.5200 #### [facility] [address] [place], [address] Neutrophils/100 WBC (Bld) 76.5 % High 47-70 [facility] Comment on above: Performed By: #### L 500.4050, L501.5200 #### [facility] [address] [place], [address] Nucleated RBC (Bld) [#/Vol] 0 10*3/uL Normal 0-5 [facility] Comment on above: Performed By: #### L 500.4050, L501.5200 #### [facility] [address] [place], [address] Platelet mean volume (Bld) [Entitic vol] 9.0 fL Normal 6.2-12.0 [facility] Comment on above: Performed By: #### L 500.4050, L501.5200 #### [facility] [address] [place], [address] Platelets (Bld) [#/Vol] 313 10*3/uL Normal 150-450 [facility] Comment on above: Performed By: #### L 500.4050, L501.5200 #### [facility] [address] [place], [address] RBC (Bld) [#/Vol] 5.06 10*6/uL Normal 4.6-6.2 [facility] Comment on above: Performed By: #### L 500.4050, L501.5200 #### [facility] [address] [place], [address] RDW SD 37.1 fl Normal 35.1-43.9 [facility] Comment on above: Performed By: #### L 500.4050, L501.5200 #### [facility] [address] [place], [address] WBC (Bld) [#/Vol] 11.6 10*3/uL High 4.4-11.0 [facility] Comment on above: Performed By: #### L 500.4050, L501.5200 #### [facility] [address] [place], [address] Carbon dioxide, total [Moles /volume] in Central venous bloodOrdered By: Allan Jc on 05-03-2025 CO2 [Moles/Vol] 21.4 mmol/L 21.0-32.0 [facility] Chest PA and Lateralon 05-03 Chest PA and Lateral [facility] Imaging Services [address] [place] [address] Chest PA and Lateral MR#: [id number] Acct: [id number] Name: LYNNETTE GONG Rep #: [id number] : 1970 M 54 From: Agnes Degroot nd, MD PCP: UMAIR Taveras Status: REG ER Study: Chest PA and Lateral Date of Exam: 05/03/25 Exam# [id number] Ordering Dr: Allan Jc DO PROCEDURE: CHEST [...] Lateral IMPRESSION: NO ACUTE FINDINGS. Reading Location: [facility] CC: COMPOSITE BOND TECHNICIAN-C Deborah Roa; Dr. Allan Jc DO Chief Steward/Stewardess: Signed Normal [facility] Chloride assayOrdered By: Osiel Jc on 05-03-2025 Chloride [Moles/Vol] 84 mmol/L Low 98-108 [facility] Emergency Department Summary on 05-03-2025 Emergency Department Summary [facility] Medical Records Department [address] [place] [address] Emergency Department Summary 05/03/25 MR#: [id number] Acct: [id number] Name: LYNNETTE GONG Rep #: [id number] : 1970 54 From: Allan Jc DO [...] that he no longer has a headache. [facility] Medical History (Updated 05/03/25 @ 18:22 by [...] following commands knew that he was at [facility] year is 2024 patient NIH of 0 [...] by radio (more content not included)... Normal [facility] Eosinophil percentageOrdered By: Allannorris Jc on 05-03-2025 Eosinophils/100 WBC (Bld) 0.1 % 0-5 [facility] Erythrocyte distribution wid th ratioOrdered By: Allan Jc on 05-03-2025 Erythrocyte distribution width (RBC) [Ratio] 12.6 % 11.6-14.6 [facility] Erythrocyte distribution wid th standard deviationOrdered By: Allan Jc on 05-03-2025 Erythrocyte distribution width (RBC) [Ratio] 37.1 fl 35.1-43.9 [facility] Free T3on 05-03-2025 Free T3 [Mass/Vol] 2.8 pg/mL Normal 2.18-3.98 [facility] Comment on above: Performed By: #### L 500.4050, L501.5200 #### [facility] [address] [place], [address] Free X3Xoszujb By: Allan silva on 05-03-2025 Free T3 [Mass/Vol] 2.8 pg/mL 2.18-3.98 [facility] Free T3 [Mass/Vol] 2.8 pg/mL 2.18-3.98 [facility] Glomerular filtration rate ( GFR) estimation/1.73 sq m using serum, plasma, or whole bOrdered By: Allan Jc on 05-03-2025 GFR/1.73 sq M.predicted among non-blacks MDRD (S/P/Bld) [Vol rate/Area] 107 mL/min/{1.73_m2} >60 [facility] Comment on above: mL/min/1.73m2 CKD-EP I Creatinine Equation (2020) H AND P Exam - Hospitaliston 05-03-2025 H&P Exam - Hospitalist [facility] Medical Records Department [address] [place] [address] H P Exam - Hospitalist 05/03/25 1806 MR#: [id number] Acct: [id number] Name: LYNNETTE GONG Rep #: [id number] : 1970 54 From: Meseret Minor DO PCP: UMAIR Taveras Status:ADM IN Location: [place] [id number] HPI - General General Date of Admission: 05/03/25 Date of Service: 05/03/25 Chief Complaint: Elevated blood pressure HPI Narrative LYNNETTE GONG, is a 54 M who presented to the emergency department [facility] on 05/03/2025 with the chief complaint [...] his most recent blood pressure at 159/89. [facility] Medical History HTN (hypertension) Morbid obesity Home [...] other Hematologic/Ly (more content not included)... Normal [facility] Hematocrit Auto (Bld) [Volum e fraction]Ordered By: Allan Jc on 05-03-2025 Hematocrit (Bld) [Volume fraction] 41.1 % 40-54 [facility] Hemoglobin A1con 05-03-2025 HbA1c (Bld) [Mass fraction] 6.0 % High <=5.6 [facility] Comment on above: Result Comment: Norm al < 5.7 % Prediabetic 5.7 - 6.4 % Diabetic >or= 6.5 % Please note range changes. Performed By: #### L 500.4050, L501.5200 #### [facility] [place], [place], [address] Hemoglobin A1c percentageOrd ered By: Allan Jc on 05-03-2025 HbA1c (Bld) [Mass fraction] 6.0 % High <5.7 [facility] Comment on above: Normal < 5.7 % Predi abetic 5.7 - 6.4 % Diabetic >or= 6.5 % Please note range changes. Hemoglobin measurementOrdere d By: Allan Jc on 05-03-2025 Hemoglobin (Bld) [Mass/Vol] 14.8 g/dL 13.0-16.5 [facility] Immature granulocytes/100 WB C Auto (Bld)Ordered By: Allan Jc on 05-03-2025 Immature granulocytes/100 WBC (Bld) 0.600 % 0.0-0.9 [facility] Comment on above: IG% - Immature Granu locytes (promyelocytes, myelocytes and metamyelocytes) > 1% indicates that a LEFT SHIFT is Present. Ketones Test strip Ql (U)Ord ered By: Meseret Minor on 05-03-2025 Ketones Ql (U) Negative Negative [facility] L499.0042on 05-03-2025 Trop T High Sen 9 ng/L Normal <=22 [facility] Comment on above: Performed By: #### L 500.4050, L501.5200 #### [facility] [address], [address] L499.0043on 05-03-2025 Trop T High Sen 9 ng/L Normal <=22 [facility] Comment on above: Performed By: #### L 499.0043 #### [facility] [address] [place], [address] L501.4021on 05-03-2025 Trop T High Sen 9 ng/L Normal <=22 [facility] Comment on above: Performed By: #### L 500.4050, L501.5200 #### [facility] [address] [place], [address] L509.6002on 05-03-2025 CORTISOL 7.33 ug/dL Normal 2.68-10.50 [facility] Comment on above: Performed By: #### L 501.5500, L501.7400 #### [facility] [place], [address] MCV (mean corpuscular volume ) determinationOrdered By: Allan Jc on 05-03-2025 MCV (RBC) [Entitic vol] 81.2 fL 80-94 [facility] Mean corpuscular hemoglobin (MCH) determinationOrdered By: Allan Jc on 05-03-2025 MCH (RBC) [Entitic mass] 29.2 pg 27.0-32.0 [facility] Mean corpuscular hemoglobin concentration (MCHC) determinationOrdered By: Allan Jc on 05-03-2025 MCHC (RBC) [Mass/Vol] 36.0 g/dL 32-36 [facility] Mean platelet volume determi nationOrdered By: Allan Jc on 05-03-2025 Platelet mean volume (Bld) [Entitic vol] 9.0 fL 6.2-12.0 [facility] Microscopic analysis of urin e for red blood cells (RBC)Ordered By: Meseret Minor on 05-03-2025 Microscopic analysis of urine for red blood cells (RBC) 0 SEEN /hpf 0-5 [facility] Monocyte percentageOrdered B y: Allan Jc on 05-03-2025 Monocytes/100 WBC (Bld) 6.7 % 0-10 [facility] Mucus LM Ql (Urine sed)Order ed By: Meseret Minor on 05-03-2025 Mucus Ql (Urine sed) 0 SEEN /hpf [facility] Neutrophil percentageOrdered By: Allan Jc on 05-03-2025 Neutrophils/100 WBC (Bld) 76.5 % High 47-70 [facility] Nitrite Test strip Ql (U)Ord ered By: Meseret Minor on 05-03-2025 Nitrite Ql (U) Negative Negative [facility] No Panel InformationOrdered By: Meseret Minor on 05-03-2025 Urine Buprenorphine Qualitative Negative < 200 ng/mL [facility] Urine Oxycodone Screen Negative < 100 ng/mL [facility] Nucleated red blood cell per centageOrdered By: Allan Jc on 05-03-2025 Nucleated RBC/100 WBC (Bld) [Ratio] 0 % 0-5 [facility] Osmolality urOrdered By: Magalie Minor on 05-03-2025 Osmolality (U) [Osmolality] 181 mOsm/KG >50 [facility] Comment on above: Normal Urine Referen ce Ranges Random: 50 - 1200 mOsm/kg H20 depending on fluid intake Random: >850 mOsm/kg after 12 hour fluid restriction 24 hour: ~300 - 900 mOsm/kg H2O Osmolality, Serumon 05-03-20 25 OSMOLALITY,SER 253 mOsm/KG Low 275-295 [facility] Comment on above: Performed By: #### L 500.4050, L501.5200 #### [facility] [address] [place], [place], [address] Platelet countOrdered By: Osiel Jc on 05-03-2025 Platelets (Bld) [#/Vol] 313 10*3/uL 150-450 [facility] Potassium measurement (mass/ volume)Ordered By: Allan Jc on 05-03-2025 Potassium (Unsp spec) [Mass/Vol] 4.5 mmol/L 3.3-5.1 [facility] Protein Test strip Ql (U)Ord ered By: Meseret Minor on 05-03-2025 Protein Ql (U) 15 mg/dl High Negative [facility] Quantitative urine opiates m easurementOrdered By: Meseret Minor on 05-03-2025 Opiates Ql (U) Negative < 300 ng/mL [facility] RBC Auto (Bld) [#/Vol]Ordere d By: Allan Jc on 05-03-2025 RBC (Bld) [#/Vol] 5.06 10*6/uL 4.6-6.2 [facility] Screening urine fentanyl cem surementOrdered By: Meseret Minor on 05-03-2025 fentaNYL Screen Ql (U) Negative [facility] Serum creatinine measurement (mass/volume)Ordered By: Allan Jc on 05-03-2025 Creatinine [Mass/Vol] 0.74 mg/dL 0.70-1.20 [facility] Serum glucose measurement (m ass/volume)Ordered By: Allan Jc on 05-03-2025 Glucose [Mass/Vol] 113 mg/dL High 70-99 [facility] Serum or plasma calcium pepe urement (mass/volume)Ordered By: Allan Jc on 05-03-2025 Calcium [Mass/Vol] 9.1 mg/dL 7.6-11.0 [facility] Serum or plasma cortisol cem surement (mass/volume)Ordered By: Meseret Minor on 05-03-2025 Cortisol [Mass/Vol] 7.33 ug/dL 2.68-10.50 [facility] Serum or plasma urea nitroge n measurement (mass/volume)Ordered By: Allan Jc on 05-03-2025 Urea nitrogen [Mass/Vol] 5 mg/dL 4-19 [facility] Serum or plasma uric acid me asurement (mass/volume)Ordered By: Meseret Minor on 05-03-2025 Urate [Mass/Vol] 3.1 mg/dL Low 3.5-7.2 [facility] Comment on above: The drugs N-Acetylcy steine and Metamizole may falsely depress this assay. Sodium levelOrdered By: Michael Jc on 05-03-2025 Sodium [Moles/Vol] 119 mmol/L Low 133-145 [facility] Comment on above: Critical Result(s) C alled at: 1620 by: SARA to Adin MATA. Results read back by same. Squamous epithelial cells de tection in urine sediment by light microscopyOrdered By: Meseret Minor on 05-03-2025 Epithelial cells.squamous LM Ql (Urine sed) 0 SEEN /hpf 0-5 [facility] T4 Free Directon 05-03-2025 T4 FREE DIRECT 1.30 ng/dL Normal 0.76-1.46 [facility] Comment on above: Performed By: #### L 500.4050, L501.5200 #### [facility] [address] [place], [address] T4 freeOrdered By: Allan silva on 05-03-2025 Free T4 [Mass/Vol] 1.30 ng/dL 0.76-1.46 [facility] Free T4 [Mass/Vol] 1.30 ng/dL 0.76-1.46 [facility] TSH DL <= 0.005 mIU/L QnOrde red By: Meseret Minor on 05-03-2025 TSH Qn 0.950 uIU/mL 0.300-4.200 [facility] TSH DL <= 0.005 mIU/L QnOrde red By: Allan Jc on 05-03-2025 TSH Qn 1.050 uIU/mL 0.300-4.200 [facility] Thyroid Stim Hormone (TSH)on 05-03-2025 TSH 0.950 uIU/mL Normal 0.300-4.200 [facility] Comment on above: Performed By: #### L 501.5500, L501.7400 #### [facility] [address] [place], [address] TSH 1.050 uIU/mL Normal 0.300-4.200 [facility] Comment on above: Performed By: #### L 500.4050, L501.5200 #### [facility] [address] [place], [address] Troponin T.cardiac [Mass/vol ume] in Serum or Plasma by High sensitivity methodOrdered By: Allan Jc on 05-03-2025 Troponin T.cardiac High sensitivity method [Mass/Vol] 9 ng/L <22 [facility] Troponin T.cardiac High sensitivity method [Mass/Vol] 9 ng/L <22 [facility] Troponin T.cardiac High sensitivity method [Mass/Vol] 9 ng/L <22 [facility] Uric Acidon 05-03-2025 URIC 3.1 mg/dL Low 3.5-7.2 [facility] Comment on above: Result Comment: The drugs N-Acetylcysteine and Metamizole may falsely depress this assay. Performed By: #### L 501.5500, L501.7400 #### [facility] [address] [place], [place], [address] Urinalysis, Completeon 05-03 BACTERIA 0 SEEN Normal None Seen [facility] Comment on above: Order Comment: CLEAN CATCH Performed By: #### L 400.0001 #### [facility] [address] [place], [address] EPI,SQUAMOUS 0 SEEN Normal 0-5 [facility] Comment on above: Order Comment: CLEAN CATCH Performed By: #### L 400.0001 #### [facility] [address] [place], [address] Mucus Ql (Urine sed) 0 SEEN Normal [facility] Comment on above: Order Comment: CLEAN CATCH Performed By: #### L 400.0001 #### [facility] [address] [place], [address] RBC 0 SEEN Normal 0-5 [facility] Comment on above: Order Comment: CLEAN CATCH Performed By: #### L 400.0001 #### [facility] [address] [place], [address] WBC 0 SEEN Normal 0-5 [facility] Comment on above: Order Comment: CLEAN CATCH Performed By: #### L 400.0001 #### [facility] [address] [place], [address] Urine benzodiazepine levelOr dered By: Meseret Minor on 05-03-2025 Benzodiazepines Ql (U) Negative < 200 ng/mL [facility] Urine clarityOrdered By: Magalie Minor on 05-03-2025 Clarity (U) Clear Clear [facility] Urine cocaine levelOrdered B y: Meseret Minor on 05-03-2025 Cocaine Ql (U) Negative < 300 ng/mL [facility] Urine color determinationOrd ered By: Meseret Minor on 05-03-2025 Color (U) Yellow Yellow [facility] Urine drrry-8-[id number] abinol (THC) measurementOrdered By: Meseret Minor on 05-03-2025 Cannabinoids Screen Ql (U) Negative < 50 ng/mL [facility] Urine glucose detectionOrder ed By: Meseret Minor on 05-03-2025 Glucose Ql (U) Normal mg/dl Normal [facility] Urine leukocyte esterase det ection by dipstickOrdered By: Meseret Minor on 05-03-2025 Leukocyte esterase Test strip Ql (U) Negative Negative [facility] Urine pHOrdered By: Meseret Minor on 05-03-2025 pH (U) 7.0 [pH] 5.0 - 8.0 [facility] Urine phencyclidine (PCP) de tectionOrdered By: Meseret Minor on 05-03-2025 Phencyclidine Ql (U) Negative < 25 ng/mL [facility] Urine sediment bacteria coun t by microscopy (number/high power field)Ordered By: Meseret Minor on 05-03-2025 Bacteria LM.HPF (Urine sed) [#/Area] 0 /[HPF] None Seen [facility] Urine sodium measurement (mo les/volume)Ordered By: Meseret Minor on 05-03-2025 Sodium (U) [Moles/Vol] 33 mmol/L Not Establ. [facility] Urine specific gravity measu rementOrdered By: Meseret Minor on 05-03-2025 Specific gravity (U) [Rel density] 1.010 1.002-1.030 [facility] Urine urobilinogen measureme ntOrdered By: Meseret Minor on 05-03-2025 Urobilinogen Ql (U) Normal mg/dl Normal [facility] White blood cell (WBC) count Ordered By: Allan Jc on 05-03-2025 WBC (Bld) [#/Vol] 11.6 10*3/uL High 4.4-11.0 [facility] White blood cell countOrdere d By: Meseret Minor on 05-03-2025 White blood cell count 0 SEEN /hpf 0-5 [facility] Absolute lymphocyte countOrd ered By: Suzette Jay on 02-04-2024 Lymphocytes Auto (Unsp spec) [#/Vol] 2.33 10*3/uL 0.83-4.51 [facility] Automated lymphocyte count a s percentage of total leukocytesOrdered By: Suzette Jay on 02-04-2024 Lymphocytes/100 WBC Auto (Unsp spec) 15.5 % 19-41 [facility] Basophil percentageOrdered B y: Suzette Jay on 02-04-2024 Basophils/100 WBC (Bld) 0.8 % 0-1 [facility] Chloride [Moles/Vol] 102 mmol/L 98-107 [facility] Eosinophils/100 WBC (Bld) 0.1 % 0-5 [facility] Glucose [Mass/Vol] 99 mg/dL 74-106 [facility] Hemoglobin (Bld) [Mass/Vol] 16.0 g/dL 13.0-16.5 [facility] Monocytes/100 WBC (Bld) 10.0 % 0-10 [facility] Neutrophils (Bld) [#/Vol] 11.0 10*3/uL 2.0-7.7 [facility] Neutrophils/100 WBC (Bld) 73.1 % 47-70 [facility] Potassium [Moles/Vol] 3.8 mmol/L 3.5-5.1 [facility] Sodium [Moles/Vol] 138 mmol/L 136-145 [facility] WBC (Bld) [#/Vol] 15.0 10*3/uL 4.4-11.0 [facility] Determination of erythrocyte mean corpuscular volume (MCV)Ordered By: Suzette Jay on 02-04-2024 MCV (RBC) [Entitic vol] 86.6 fL 80-94 [facility] Erythrocyte distribution wid th ratioOrdered By: Suzette Jay on 02-04-2024 Erythrocyte distribution width (RBC) [Ratio] 13.0 % 11.6-14.6 [facility] Erythrocyte distribution wid th standard deviationOrdered By: Suzette Jay on 02-04-2024 Erythrocyte distribution width (RBC) [Entitic vol] 40.7 fL 35.1-43.9 [facility] Hematocrit Auto (Bld) [Volum e fraction]Ordered By: Suzette Jay on 02-04-2024 Hematocrit (Bld) [Volume fraction] 46.5 % 40-54 [facility] Immature granulocytes/100 WB C Auto (Bld)Ordered By: Suzette Jay on 02-04-2024 Immature granulocytes/100 WBC (Bld) 0.500 % 0.0-0.9 [facility] Comment on above: IG% - Immature Granu locytes (promyelocytes, myelocytes and metamyelocytes) > 1% indicates that a LEFT SHIFT is Present. Laboratory - Chemistry and C hemistry - challengeOrdered By: Suzette Jay on 02-04-2024 CO2 [Moles/Vol] 25.0 mmol/L 21.0-32.0 [facility] Urea nitrogen/Creatinine [Mass ratio] 10.5 mg/mg 10-20 [facility] - Drug toxicology Ordered By: Suzette Jay on 02-04-2024 Amphetamines Ql (U) Positive <1000 ng/mL [facility] Benzodiazepines Ql (U) Negative < 200 ng/mL [facility] Cannabinoids Screen Ql (U) Negative < 50 ng/mL [facility] Cocaine Ql (U) Negative < 300 ng/mL [facility] Opiates Ql (U) Negative < 300 ng/mL [facility] - Hematology and Cell countsOrdered By: Suzette Jay on 02-04-2024 MCH (RBC) [Entitic mass] 29.8 pg 27.0-32.0 [facility] MCHC (RBC) [Mass/Vol] 34.4 g/dL 32-36 [facility] Nucleated RBC/100 WBC (Bld) [Ratio] 0 % 0-5 [facility] Platelet mean volume (Bld) [Entitic vol] 10.6 fL 6.2-12.0 [facility] Platelets (Bld) [#/Vol] 298 10*3/uL 150-450 [facility] No Panel InformationOrdered By: Suzette Jay on 02-04-2024 Estimated Creatinine Clearance Calc 122.02 ml/min [facility] Estimated GFR (MDRD) Amer 106 mL/min >60 [facility] Comment on above: GFR Calc Estimated GFR (MDRD) Non-Af Amer 87 mL/min >60 [facility] Comment on above: Non- GFR Calc Ethyl Alcohol Level < 3.0 mg/dL [facility] Comment on above: The serum:whole bloo d ethanol ratio is approximately 1.14and varies slightly with hematocrit. Medical Alcohol reference interval and critical value innon-tolerant individuals; 50 - 100 Impairment 100 Intoxication 100 - 250 Severe Poisoning 250 - 400 Deep/possible fatal coma MDMA (Ecstasy) Screen Positive < 500 ng/mL [facility] Urine Barbiturates Screen Negative < 200 ng/mL [facility] Urine Drug Screen Comment [facility] Comment on above: CONFIRMATORY TESTING FOR [...] Methadone Screen Negative < 300 ng/mL [facility] RBC Auto (Bld) [#/Vol]Ordere d By: Suzette Jay on 02-04-2024 RBC (Bld) [#/Vol] 5.37 10*6/uL 4.6-6.2 [facility] Serum or plasma calcium pepe urement (mass/volume)Ordered By: Suzette Jay on 02-04-2024 Calcium [Mass/Vol] 9.0 mg/dL 8.5-10.1 [facility] Serum or plasma creatinine m easurement (mass/volume)Ordered By: Suzette Jay on 02-04-2024 Creatinine [Mass/Vol] 0.95 mg/dL 0.70-1.30 [facility] Comment on above: The validity of the calculated GFR & GFRAA in patients over 70 years has not been determined. Clinical correlation is essential. Serum or plasma urea nitroge n measurement (mass/volume)Ordered By: Suzette Jay on 02-04-2024 Urea nitrogen [Mass/Vol] 10 mg/dL 7-18 [facility] Thin prep Papanicolaou smear with manual screeningOrdered By: Suzette Jay on 02-04-2024 Thin prep Papanicolaou smear with manual screening 11 5-15 [facility] Urine phencyclidine (PCP) de tectionOrdered By: Suzette Jay on 03-10-2024 Phencyclidine Ql (U) Negative < 25 ng/mL [facility] BNPon 11-15-2022 Natriuretic peptide B (Bld) [Mass/Vol] 109 pg/mL High 0 - 99 [facility] Comment on above: Result Comment: . <1 00 pg/mL - Heart failure unlikely 100-299 pg/mL - Intermediate probability of acute heart . failure exacerbation. Correlate with clinical . context and patient history. >=300 pg/mL - Heart Failure likely. Correlate with clinical . context and patient history. BNP testing is performed using different testing methodology at [facility] than at other [facility]. Direct result comparisons should only be made within the same method. Performed By: #### B NP2 #### [address] [address] CBC AND DIFFERENTIALon 11-15 % AUTOMATED IMMATURE GRAN 0.4 % Normal 0.0 - 0.9 [facility] Comment on above: Result Comment: Hanna ture Granulocyte Count (IG) includes promyelocytes, myelocytes and metamyelocytes but does not include bands. Percent differential counts (%) should be interpreted in the context of the absolute cell counts (cells/L). Performed By: #### C BCDF #### [address] [address] Basophils (Bld) [#/Vol] 0.02 10*3/uL Normal 0.00 - 0.1 0 [facility] Comment on above: Performed By: #### C BCDF #### [address] [address] Basophils/100 WBC (Bld) 0.1 % Normal 0.0 - 2.0 [facility] on above: Performed By: #### C BCDF #### [address] [address] Lymphocytes (Bld) [#/Vol] 1.94 10*3/uL Normal 1.20 - 4.80 [facility] Comment on above: Performed By: #### C BCDF #### [address] [address] Lymphocytes/100 WBC (Bld) 14.5 % Normal 13.0 - 44.0 [facility] Comment on above: Performed By: #### C BCDF #### [address] [address] Monocytes (Bld) [#/Vol] 1.27 10*3/uL High 0.10 - 1.0 0 [facility] Comment on above: Performed By: #### C BCDF #### [address] [address] Monocytes/100 WBC (Bld) 9.5 % Normal 2.0 - 10.0 [facility] Comment on above: Performed By: #### C BCDF #### [address] [address] Neutrophils (Bld) [#/Vol] 10.08 10*3/uL High 1.20 - 7.70 [facility] Comment on above: Performed By: #### C BCDF #### [address] [address] Neutrophils/100 WBC (Bld) 75.5 % Normal 40.0 - 80.0 [facility] Comment on above: Performed By: #### C BCDF #### [address] [address] Erythrocyte distribution width (RBC) [Ratio] 13.5 % Normal 11.5 - 14.5 [facility] Comment on above: Performed By: #### C BCDF #### [address] [address] Hematocrit (Bld) [Volume fraction] 39.4 % Low 41.0 - 52.0 [facility] Comment on above: Performed By: #### C BCDF #### [address] [address] Hemoglobin (Bld) [Mass/Vol] 13.9 g/dL Normal 13.5 - 17.5 [facility] Comment on above: Performed By: #### C BCDF #### [address] [address] MCHC (RBC) [Mass/Vol] 35.3 g/dL Normal 32.0 - 36.0 [place]/[facility] Comment on above: Performed By: #### C BCDF #### [address] [address] MCV (RBC) [Entitic vol] 84 fL Normal 80 - 100 [facility] Comment on above: Performed By: #### C BCDF #### [address] [address] Platelets (Bld) [#/Vol] 225 10*3/uL Normal 150 - 450 [facility] Comment on above: Performed By: #### C BCDF #### [address] [address] RBC 4.68 x10E12/L Normal 4.50 - 5.90 [facility] Comment on above: Performed By: #### C BCDF #### [address] [address] WBC (Bld) [#/Vol] 13.4 10*3/uL High 4.4 - 11.3 [place] [facility] Comment on above: Performed By: #### C BCDF #### [address] [address] COMPREHENSIVE PANELon 2021 Albumin [Mass/Vol] 3.9 g/dL Normal 3.4 - 5.0 [place] [facility] Comment on above: Performed By: #### C MP #### [address] [address] ALP [Catalytic activity/Vol] 57 U/L Normal 33 - 120 [facility] Comment on above: Performed By: #### C MP #### [address] [address] ALT [Catalytic activity/Vol] 21 U/L Normal 10 - 52 [facility] Comment on above: Result Comment: Suly ents treated with Sulfasalazine may generate falsely decreased results for ALT. Performed By: #### C MP #### [address] [address] Anion gap [Moles/Vol] 14 mmol/L Normal 10 - 20 [place] inson/[facility] Comment on above: Performed By: #### C MP #### [address] [address] AST [Catalytic activity/Vol] 51 U/L High 9 - 39 [facility] Comment on above: Performed By: #### C MP #### [address] [address] Bilirubin [Mass/Vol] 0.9 mg/dL Normal 0.0 - 1.2 [place] [facility] Comment on above: Performed By: #### C MP #### [address] [address] Calcium [Mass/Vol] 8.8 mg/dL Normal 8.6 - 10.3 [place] [facility] Comment on above: Performed By: #### C MP #### [address] [address] Chloride [Moles/Vol] 95 mmol/L Low 98 - 107 [place] [facility] Comment on above: Performed By: #### C MP #### [address] [address] Creatinine [Mass/Vol] 0.93 mg/dL Normal 0.50 - 1.30 [place] Comment on above: Performed By: #### C MP #### [address] [address] eGFR MALE >90 Normal >90 [facility] Comment on above: Result Comment: CALC ULATIONS OF ESTIMATED GFR ARE PERFORMED USING THE 2020 CKD-EPI STUDY REFIT EQUATION WITHOUT THE RACE VARIABLE FOR THE IDMS-TRACEABLE CREATININE METHODS. https://jasn.asnjournals.org/content//ASN.2020 442033 Performed By: #### C MP #### [address] [address] Glucose [Mass/Vol] 120 mg/dL High 74 - 99 [place] [facility] Comment on above: Performed By: #### C MP #### [address] [address] HCO3 (Bld) [Moles/Vol] 27 mmol/L Normal 21 - 32 [place] Comment on above: Performed By: #### C MP #### [address] [address] Potassium [Moles/Vol] 3.3 mmol/L Low 3.5 - 5.3 [place] inson/[facility] Comment on above: Performed By: #### C MP #### [address] [address] Protein [Mass/Vol] 7.4 g/dL Normal 6.4 - 8.2 [place] [facility] Comment on above: Performed By: #### C MP #### [address] [address] Sodium [Moles/Vol] 133 mmol/L Low 136 - 145 [place] [facility] Comment on above: Performed By: #### C MP #### [address] [address] Urea nitrogen [Mass/Vol] 8 mg/dL Normal 6 - 23 [facility] Comment on above: Performed By: #### C MP #### [address] [address] Covid 19 Resultson 2 SARS-CoV-2 (COVID-19) RNA [...] You may also be contacted by the [facility] to see if any of [...] or Naproxen (Aleve) can also be used. Szpm-gno-menoucc cough and cold medicines can be used according to the instructions on the package. Some xlui-tfm-kmrsudq medicines also contain acetaminophen. Make sure you [...] water are not available, use alcohol-based hand art editor. Avoid touching your eyes, nose, and mouth [...] 24 dallin (more content not included)... Normal [facility] EMR ADDONon 11-15-2022 ADDON CONFIRMATION REQUEST REC'D Normal [place] inson[facility] Comment on above: Performed By: #### C OINP #### [place] [address] INFLUENZA A/B, COVID 2019 PC R,SYMPTOMATICon 11-15-2022 INFLUENZA A, PCR Detected Abnormal Not Detected [facility] Comment on above: Result Comment: Resp iratory virus testing is performed routinely by PCR for Influenza A/B and RSV. Not Detected results do not preclude Influenza A/B or RSV infections since the adequacy of sample collection or low viral burden may impact the clinical sensitivity of this test method. Performed By: #### C OINP #### [place] [address] INFLUENZA B, PCR Not detected Normal Not Detected [facility] Comment on above: Result Comment: Resp iratory virus testing is performed routinely by PCR for Influenza A/B and RSV. Not Detected results do not preclude Influenza A/B or RSV infections since the adequacy of sample collection or low viral burden may impact the clinical sensitivity of this test method. Performed By: #### C OINP #### [place] [address] Lab Specimen Source Nasal, Nasopharyngeal Normal [facility] Comment on above: Performed By: #### C OINP #### [place] [address] SARS-CoV-2 (COVID-19) RNA LEROY+probe Ql (Unsp spec) Not detected Normal Not Detected [facility] Comment on above: Result Comment: . This test has received FDA Emergency Use Authorization (EUA) and has been verified by [facility]. This test is only authorized for the duration of time that circumstances exist to justify the authorization of the emergency use of in vitro diagnostic tests for the detection of SARS-CoV-2 virus and/or diagnosis of COVID-19 infection under section 564(b)(1) of the Act, 21 U.S.C. 360bbb-3(b)(1), unless the authorization is terminated or revoked sooner. [facility] is certified under CLIA-88 as qualified to perform high complexity testing. Testing is performed in the [facility] laboratory located at [address] [place] [address]. SARS-CoV-2/Flu/RSV Multiplex Test: Fact sheet for providers: https://www.fda.gov/media/823677/download Fact sheet for patients: https://www.fda.gov/media/055692/download Performed By: #### C OINP #### [address] [address] PT/INRon 11-15-2022 PT Coag (PPP) [Time] 14.2 s High 9.8 - 13.4 [place] [facility] Comment on above: Performed By: #### P TINR #### [address] [address] PT, INR 1.2 High 0.9 - 1.1 [facility] Comment on above: Performed By: #### P TINR #### [address] [address] Provider Note - ED v3on 10-28 Provider [...] limitation. No acute ST elevation is identified. WI interval is 171 and QTc is 460. [...] 13.9 Anion (more content not included)... Normal [facility] RED CELL MORPHOLOGYon 2021 RBC morphology finding Nom (Bld) SEE COMMENT Normal [facility] Comment on above: Result Comment: NO S IGNIFICANT RBC ABNORMALITIES SEEN ON SMEAR REVIEW. Performed By: #### M ORP2 #### [facility] [address] [place] [address] TROPONIN I, HIGH SENSITIVITY on 11-15-2022 TROPONIN I, HIGH SENSITIVITY Canceled Normal [facility] Comment on above: Order Comment: TEST TROPONIN [...] performed using a different testing methodology at [facility] than at other [facility]. Direct result comparisons should only be made within the same method. Performed By: #### C OI #### [facility] [address] [place] [address] TROPONIN I, HIGH SENSITIVITY 14 ng/L Normal 0 - 20 [place] Comment on above: Result Comment: . [...] performed using a different testing methodology at [facility] than at other [facility]. Direct result comparisons should only be made within the same method. Performed By: #### T [facility] #### [facility] [address] [place] [address] Triage - EDon 11-15-2022 Triage - ED Quick Triage: The patient and/or guardian verbally acknowledges placement for services into the following (when Urgent Care Service hours are operating):emergency department Chart Review: ARRIVAL INFORMATION Means of Arrival: Ambulatory Mode of Arrival: private vehicle Arrival From: home Accompanied By: self Language: Spoken Language Preferred: [place] Reading Language Preferred: [place] CHIEF COMPLAINT LYNNETTE GONG is a Male [...] 22:36 by Dana Aguirre (RN) Normal [facility] UA MICROSCOPICon 11-15-2022 RBC 4 /HPF Normal 0-5 [facility] Comment on above: Performed By: #### U AMIC #### [address] [address] WBC 2 /HPF Normal 0-5 [facility] Comment on above: Performed By: #### U AMIC #### [address] [address] URINALYSISon 11-15-2022 Appearance (U) Clear Normal CLEAR [facility] Comment on above: Performed By: #### C OINP #### [address] [address] Bilirubin Ql (U) Negative Normal NEGATIVE [facility] Comment on above: Performed By: #### C OINP #### [address] [address] Color (U) Yellow Normal STRAW,YELLO W [place] Comment on above: Performed By: #### C OINP #### [address] [address] Glucose Ql (U) Negative Normal NEGATIVE [facility] Comment on above: Performed By: #### C OINP #### [address] [address] Hemoglobin Ql (U) SMALL(1+) Abnormal NEGATIVE [place] Comment on above: Performed By: #### C OINP #### [address] [address] Ketones Ql (U) 5(Trace) mg/dl Abnormal NEGATIVE [place] [facility] Comment on above: Performed By: #### C OINP #### [address] [address] Leukocyte esterase Test strip Ql (U) Negative Normal NEGATIVE [facility] Comment on above: Performed By: #### C OINP #### [address] [address] Nitrite Ql (U) Negative Normal NEGATIVE [place] Comment on above: Performed By: #### C OINP #### [place] [address] pH (U) 6.0 [pH] Normal 5.0 - 8.0 [facility] Comment on above: Performed By: #### C OINP #### [place] [address] Protein Ql (U) 100(2+) Abnormal NEGATIVE [place] Comment on above: Performed By: #### C OINP #### [place] [address] Specific gravity (U) [Rel density] 1.021 Normal 1.005 - 1.035 [facility] Comment on above: Performed By: #### C OINP #### [place] [address] Urobilinogen (U) [Mass/Vol] 4.0 mg/dL High 0.0 - 1.9 [facility] Comment on above: Result Comment: SOME PIGMENTS AND MEDICATIONS MAY CAUSE A FALSE POSITIVE UROBILINOGEN Performed By: #### C OINP #### [address] [address] VENOUS FULL PANELon 12-20-20 22 Anion gap [Moles/Vol] 12 mmol/L Normal 10 - 25 [facility] Comment on above: Performed By: #### V FPA4 #### [place] [id number] BASE EXCESS-BLOOD 3.2 mmol/L High -2.0 - 3.0 [facility] Comment on above: Performed By: #### V FPA4 #### [address] [address] BICARB, CALCULATED 28.5 mmol/L High 22.0 - 26.0 [place] [facility] Comment on above: Performed By: #### V FPA4 #### [address] [address] CALCIUM,IONIZED 1.13 mmol/L Normal 1.10 - 1.33 [place] Comment on above: Performed By: #### V FPA4 #### [address] [address] Chloride [Moles/Vol] 94 mmol/L Low 98 - 107 [place] [facility] Comment on above: Performed By: #### V FPA4 #### [address] [address] Glucose [Mass/Vol] 128 mg/dL High 74 - 99 [place] [facility] Comment on above: Performed By: #### V FPA4 #### [address] [address] Hematocrit (Bld) [Volume fraction] 42.0 % Normal 41.0 - 52.0 [facility] Comment on above: Performed By: #### V FPA4 #### [address] [address] Hemoglobin (Bld) [Mass/Vol] 13.9 g/dL Normal 13.5 - 17.5 [facility] Comment on above: Performed By: #### V FPA4 #### [address] [address] Lactate [Moles/Vol] 1.1 mmol/L Normal 0.4 - 2.0 [place] [facility] Comment on above: Performed By: #### V FPA4 #### [address] [address] OXY HGB 51.7 % Normal 45.0 - 75.0 [facility] Comment on above: Performed By: #### V FPA4 #### [address] [address] Oxygen (Bld) [Partial pressure] 31 mm[Hg] Low 35 - 45 [facility] Comment on above: Performed By: #### V FPA4 #### [address] [address] PATIENT TEMPERATURE 37.0 degrees C Normal R obinson/[facility] Comment on above: Result Comment: NOTE : PATIENT RESULTS ARE NOT CORRECTED FOR TEMPERATURE. Performed By: #### V FPA4 #### [address] [address] PCO2 45 mmHg Normal 41 - 51 [facility] Comment on above: Performed By: #### V FPA4 #### [address] [address] pH (Bld) 7.41 [pH] Normal 7.33 - 7.43 [facility] Comment on above: Performed By: #### V FPA4 #### [address] [address] Potassium [Moles/Vol] 3.2 mmol/L Low 3.5 - 5.3 [place] inson/Po [facility] Comment on above: Performed By: #### V FPA4 #### [address] [address] SO2 53 % Normal 45 - 75 [facility] Comment on above: Performed By: #### V FPA4 #### [address] [address] Sodium [Moles/Vol] 131 mmol/L Low 136 - 145 [place] [facility] Comment on above: Performed By: #### V FPA4 #### [address] [address] Vital Signs Date Time Vital Sign Value Performing Clinician Adrianne block 06-10-2025 13:03-0400 Body height 170.[address] Allan Jc DO Work Phone: [facility] 06-10-2025 13:03-0400 Body mass index (BMI) [Ratio] 50.6 kg/m2 Dr. Allan Jc DO Work Phone: [facility] 06-10-2025 13:03-0400 Body temperature 98.4 [degF] Dr. Allan Jc DO Work Phone: [facility] 06-10-2025 13:03-0400 Body weight 146.[address] Allan Jc DO Work Phone: 6(096)074-486708 [place] [address] 06-10-2025 13:03-0400 Diastolic blood pressure 71 mm[Hg] Dr. Allan Jc DO Work Phone: 2(559)547-416508 [place] [address] 06-10-2025 13:03-0400 Heart rate 75 /min Dr. Allan Jc DO Work Phone: 3(365)134-058808 [place] [address] 06-10-2025 13:03-0400 Respiratory rate 18 /min Dr. Allan Jc DO Work Phone: 5(713)327-480908 [place] [address] 06-10-2025 13:03-0400 SaO2% (BldA) [Mass fraction] 96 % Dr. Allan Jc DO Work Phone: 2(281)865-525508 [place] [address] 06-10-2025 13:03-0400 Systolic blood pressure 110 mm[Hg] Dr. Allan Jc DO Work Phone: 1(375)840-636708 [place] [address] 05-12-2025 13:30-0400 Body height 170.[address] Allan Jc DO Work Phone: 7(240)824-906108 [place] [address] 05-12-2025 13:30-0400 Body mass index (BMI) [Ratio] 51.9 kg/m2 Dr. Allan Jc DO Work Phone: 9(047)857-834608 [place] [address] 05-12-2025 13:30-0400 Body temperature 97.2 [degF] Dr. Allan Jc DO Work Phone: 7(391)392-815808 [place] [address] 05-12-2025 13:30-0400 Body weight 150.[address] Allan Jc DO Work Phone: 4(390)097-006408 [place] [address] 05-12-2025 13:30-0400 Diastolic blood pressure 82 mm[Hg] Dr. Allan Jc DO Work Phone: 3(030)827-561508 [place] [address] 05-12-2025 13:30-0400 Heart rate 84 /min Dr. Allan Jc DO Work Phone: 8(534)168-860508 [place] [address] 05-12-2025 13:30-0400 Respiratory rate 18 /min Dr. Allan Jc DO Work Phone: 4(936)156-080408 [place] [address] 05-12-2025 13:30-0400 SaO2% (BldA) [Mass fraction] 97 % Dr. Allan Jc DO Work Phone: 6(393)804-819308 [place] [address] 05-12-2025 13:30-0400 Systolic blood pressure 148 mm[Hg] Dr. Allan Jc DO Work Phone: 4(128)932-131226 [place] [address] 05-05-2025 11:40-0400 Diastolic blood pressure 106 mm[Hg] Dr. Allan Jc DO Work Phone: 2(025)327-705708 [place] [address] 05-05-2025 11:40-0400 Heart rate 71 /min Dr. Allan Jc DO Work Phone: 1(239)178-725808 [place] [address] 05-05-2025 11:40-0400 Respiratory rate 18 /min Dr. Allan Jc DO Work Phone: 1(422)723-202208 [place] [address] 05-05-2025 11:40-0400 SaO2% (BldA) [Mass fraction] 96 % Dr. Allan Jc DO Work Phone: 8(447)036-754908 [place] [address] 05-05-2025 11:40-0400 Systolic blood pressure 140 mm[Hg] Dr. Allan Jc DO Work Phone: 6(801)363-826908 [place] [address] 05-05-2025 10:19-0400 SaO2% (BldA) [Mass fraction] 99 % Dr. Allan Jc DO Work Phone: 3(564)793-604308 [place] [address] 05-05-2025 08:45-0400 Body temperature 97.7 [degF] Dr. Allan Jc DO Work Phone: 5(039)987-356508 [place] [address] 05-05-2025 08:45-0400 Diastolic blood pressure 88 mm[Hg] Dr. Allan Jc DO Work Phone: 8(861)601-914808 [place] [address] 05-05-2025 08:45-0400 Heart rate 64 /min Dr. Allan Jc DO Work Phone: 9(439)160-646408 [place] [address] 05-05-2025 08:45-0400 Respiratory rate 20 /min Dr. Allan Jc DO Work Phone: 4(545)999-169708 [place] [address] 05-05-2025 08:45-0400 Systolic blood pressure 149 mm[Hg] Dr. Allan Jc DO Work Phone: 1(761)962-435808 [place] [address] 05-05-2025 03:46-0400 Body mass index (BMI) [Ratio] 47.7 kg/m2 Dr. Allan Jc DO Work Phone: 0(690)142-274008 [place] [address] 05-05-2025 03:46-0400 Body weight 146.[address] Allan Jc DO Work Phone: 3(138)500-037708 [place] [address] 05-03-2025 19:20-0400 Body height 175.[address] Allan Jc DO Work Phone: 6(711)360-228208 [place] [address] 05-03-2025 18:11-0400 Body temperature 98.1 [degF] Dr. Allan Jc DO Work Phone: 2(453)355-832608 [place] [address] 05-03-2025 18:11-0400 Diastolic blood pressure 89 mm[Hg] Dr. Allan Jc DO Work Phone: 5(876)218-580008 [place] [address] 05-03-2025 18:11-0400 Heart rate 73 /min Dr. Allan Jc DO Work Phone: 2(392)598-448508 [place] [address] 05-03-2025 18:11-0400 Respiratory rate 16 /min Dr. Allan Jc DO Work Phone: 8(834)088-740808 [place] [address] 05-03-2025 18:11-0400 SaO2% (BldA) [Mass fraction] 98 % Dr. Allan Jc DO Work Phone: 3(940)513-857108 [place] [address] 05-03-2025 18:11-0400 Systolic blood pressure 159 mm[Hg] Dr. Allan Jc DO Work Phone: [facility] 05-03-2025 15:37-0400 Body height 175.[address] Allan Jc DO Work Phone: [facility] 05-03-2025 15:37-0400 Body mass index (BMI) [Ratio] 48.4 kg/m2 Dr. Allan Jc DO Work Phone: [facility] 05-03-2025 15:37-0400 Body weight 148.[address] Allan Jc DO Work Phone: [facility] 02-04-2024 17:39-0400 Body height 175.26 cm [facility] 02-04-2024 17:39-0400 Body mass index (BMI) [Ratio] 44.4 kg/m2 [facility] 02-04-2024 17:39-0400 Body temperature 96.3 [degF] [facility] 02-04-2024 17:39-0400 Body weight 136.57 kg [facility] 02-04-2024 17:39-0400 Diastolic blood pressure 90 mm[Hg] [facility] 02-04-2024 17:39-0400 Heart rate 100 /min [facility] 02-04-2024 17:39-0400 Respiratory rate 22 /min [facility] 02-04-2024 17:39-0400 SaO2% (BldA) [Mass fraction] 100 % [facility] 02-04-2024 17:39-0400 Systolic blood pressure 149 mm[Hg] [facility] 09-20-2022 12:45-0400 Body height 177.8 cm [facility] Work Phone: 09-20-2022 12:45-0400 Body mass index (BMI) [Ratio] 44.4 kg/m2 [facility] Work Phone: 09-20-2022 12:45-0400 Body temperature 97.7 [degF] [facility] Work Phone: 09-20-2022 12:45-0400 Body weight 140.61 kg [facility] Work Phone: 09-20-2022 12:45-0400 Diastolic blood pressure 80 mm[Hg] [facility] Work Phone: 09-20-2022 12:45-0400 Heart rate 98 /min [facility] Work Phone: 09-20-2022 12:45-0400 Respiratory rate 18 /min [facility] Work Phone: 09-20-2022 12:45-0400 SaO2% (BldA) [Mass fraction] 96 % [facility] Work Phone: 09-20-2022 12:45-0400 Systolic blood pressure 160 mm[Hg] [facility] Work Phone: Encounters Encounter Date Encounter Type Care Provider Facility Start: 06-18-2025 ambulatory [facility] y:[facility] Start: 06-13-2025 ambulatory Anay Bull NP Facil ity:[facility] Start: 06-10-2025 End: 06-10-[address] Allan Jc DO Work Phone: -[facility] Start: 06-10-2025 End: 06-10-2025 Patient encounter procedure Anay Bull COMPOSITE BOND TECHNICIAN-C -[facility] Work Phone: Start: 06-03-2025 ambulatory Deborah Roa Facility:[facility] Start: 05-29-2025 End: 05-29-[address] Allan Jc DO Work Phone: -Laboratory [facility]al [facility] Start: 05-29-2025 End: 05-29-2025 Patient encounter procedure Deborah Roa COMPOSITE BOND TECHNICIAN-C -[facility] Start: 05-29-2025 End: 05-29-2025 ambulatory Deborah Roa Facility:[facility] Start: 05-20-2025 End: 05-20-[address] Allan Jc DO Work Phone: -Laboratory [facility] Christina [facility] Start: 05-20-2025 End: 05-20-2025 Patient encounter procedure Deborah Roa COMPOSITE BOND TECHNICIAN-C -Laboratory [facility] Vasquez [facility] Start: 05-20-2025 End: 05-20-2025 [facility]ulatory [facility] Start: 05-12-2025 End: 05-12-[address] Betty Steel MD -[facility] Work Phone: Start: 05-12-2025 End: 05-12-[address] Allan Jc DO Work Phone: [facility] Work Phone: Start: 05-05-2025 Non-patient / Non-visit Dr. Kevin cornelius [facility] Work Phone: Start: 05-04-2025 Non-patient / Non-visit Dr. Kevin Sweeney [facility] Work Phone: Start: 05-03-2025 Non-patient / Non-visit Dr. Meseret Minor DO -[facility] Work Phone: Start: 05-03-2025 ambulatory Deborah Roa Facility:[facility] Start: 05-03-2025 End: 05-05-2025 Evaluation and management of inpatient Dr. Meseret Minor DO -[facility] Work Phone: Start: 02-04-2024 End: 02-04-2024 Emergency department patient visit [facility] Work Phone: Start: 11-15-2022 End: 11-15-2022 Emergency department patient visit Dr. OSIRIS BARRETT Facility:[id number] Start: 09-20-2022 End: 09-20-2022 Emergency department patient visit [facility] Start: 03-09-2022 ambulatory Tony Altman [...] Activity Detail Author Start: 05-05-2025 Patient discharge [facility] [facility] Start: 05-03-2025 Following clinical pathway protocol [facility] Start: 05-03-2025 Assessment of risk of venous thromboembolism [facility] Start: 05-03-2025 Inhalation therapy procedure [facility] Start: 05-03-2025 Insertion of catheter into peripheral vein [facility] Start: 05-03-2025 Measuring intake and output [facility] Start: 05-03-2025 Oxygen therapy [facility] Start: 05-03-2025 Providing care according to standard [facility] Start: 05-03-2025 Referral to service [facility] Start: 05-03-2025 [facility] Start: 05-03-2025 Hospital admission, emergency, from emergency room, medical nature [facility] Start: 05-03-2025 Urinalysis complete panel - Urine [facility] Start: 05-03-2025 Verification routine [facility] Start: 05-03-2025 Admission procedure [facility] Start: 05-03-2025 Osmolality of Urine [facility] Start: 05-03-2025 Sodium [Moles/volume] in Urine [facility] Start: 05-03-2025 Osmolality measurement, serum [facility] Start: 05-03-2025 Thyroid stimulating hormone measurement [facility] Start: 05-03-2025 [facility] Start: 09-20-2022 Electrocardiographic procedure [facility] Work Phone: Amphetamines [Presen ce] in Urine by Screen method >1000 ng/mL [facility] Anion gap in Serum or Plasma [facility] Anion gap in Serum or Plasma [facility] Anion gap in Serum or Plasma [facility] Benzodiazepine measu rement, urine [facility] BUN/Creatinine ratio [facility] BUN/Creatinine ratio [facility] BUN/Creatinine ratio [facility] Calcium [Mass/volume ] in Serum or Plasma [facility] Calcium [Mass/volume ] in Serum or Plasma [facility] Calcium [Mass/volume ] in Serum or Plasma [facility] Carbon dioxide, tota l [Moles/volume] in Central venous blood [facility] Carbon dioxide, tota l [Moles/volume] in Central venous blood [facility] Carbon dioxide, tota l [Moles/volume] in Central venous blood [facility] Cocaine measurement, urine [facility] Cortisol [Mass/volum e] in Serum or Plasma [facility] Creatinine [Mass/vol ume] in Serum or Plasma [facility] Creatinine [Mass/vol ume] in Serum or Plasma [facility] Creatinine [Mass/vol ume] in Serum or Plasma [facility] CT Chest [facility] fentaNYL [Presence] in Urine by Screen method [facility] Glucose [Mass/volume ] in Serum or Plasma [facility] Glucose [Mass/volume ] in Serum or Plasma [facility] Glucose [Mass/volume ] in Serum or Plasma [facility] Measurement of renal function [facility] Measurement of renal function [facility] Measurement of renal function [facility] Methadone measurement, urine [facility] Patient Education ED Chest Pain, Uncertain Cause [facility] Work Phone: Patient referral [facility] Work Phone: Phencyclidine [Prese nce] in Urine [facility] Potassium measurement [facility] Potassium measurement [facility] Potassium measurement [facility] Serum chloride measurement [facility] Serum chloride measurement [facility] Serum chloride measurement [facility] Sodium measurement [facility] Sodium measurement [facility] Sodium measurement [facility] Troponin T.cardiac [Mass/volume] in Serum or Plasma by High sensitivity method [facility] Urate [Mass/volume] in Serum or Plasma [facility] Urea nitrogen [Mass/ volume] in Serum or Plasma [facility] Urea nitrogen [Mass/ volume] in Serum or Plasma [facility] Urea nitrogen [Mass/ volume] in Serum or Plasma [facility] Urine cannabinoid measurement [facility] Urine opiate measurement [facility] Payers Date Payer Category Payer Self-pay [id number] 2025 Medicare [id number] 1970 Unknown [id number] 2.16.8 [id number] 1970 Unknown [id number] 2.16.8 [id number] Medicaid [id number] Unknown [id number] Unknown [id number] 2.16.8 [id number] Unknown [id number] 2.16.8 [id number] Unknown [id number] 2.16.8 [id number] Unknown [id number] 2.16.8 [id number] Unknown [id number] 2.16.8 [id number] Unknown [id number] 2.16.8 [id number] Unknown [id number] 2.16.8 [id number] Unknown [id number] 2.16.8 [id number] Unknown [id number] 2.16.8 [id number] Unknown [id number] 2.16.8 [id number] Social History Date Type Detail Facility Start: 09-20-2022 End: 02-04-2024 Tobacco smoking status SDIS Unknown if ever smoked [facility] Start: 1970 Sex Assigned At Male [facility] Start: 05-03-2025 End: 06-10-2025 Tobacco smoking status NHIS Smokes tobacco daily (finding) [facility] Goals Date Patient Goal Desired Activity /State Functional Status Date Assessment Result Facility 05-05-2025 Functional status Ambulates;Up ad michael [facility] Work Phone: Mental Status Date Assessment Result Facility 05-05-2025 Cognitive function Voice/Name [facility] Work Phone: 05-03-2025 Cognitive function Level Of Cons ciousness Awake;Alert;Appropriate;Follow s Commands [facility] Work Phone: 02-04-2024 Cognitive function Level Of Cons ciousness Awake;Alert [facility] Work Phone: Clinical Notes 11-16-2022 to 05-05-2025 Note Date & Type Note Facility 05-05-2025 Discharge summary [facility] 05-05-2025 Note [facility] Medical Records Department [address] [place] [address] Discharge Summary 05/05/25 1004 MR#: [id number] Acct: [id number] Name: LYNNETTE GONG Rep #: [id number] : 1970 54 From: Kevin Singh DO PCP: UMAIR Taveras Status:ADM IN [id number] Providers Date of Admission: 05/03/25 Primary Care Physician: Deborah Crispin, COMPOSITE BOND TECHNICIAN-C Reason For Visit: HYPONATREMIA/HTN URGENCY Diagnosis Discharge [...] at 1009 Visit Charges Inpatient E M: 20559 Disch Hosp 05/05/25 1009 Cosigner Signature (if applicable): cc: UMAIR Roa; Dr. Kevin Singh DO * Signed [facility] 05-04-2025 Progress note Note Date/Time May 04, 2025 1:33p m [facility] Medical Records Department [address] [place] [address] Progress Note - Hospitalist 05/04/25910 MR#: [id number] Acct: [id number] Name: LYNNETTE GONG Rep #:[id number] : 1970 54 From: Kevin Singh DO PCP: UMAIR Taveras Status:ADM IN Location: [place] [id number] Reason for Visit Reason for Visit: [...] 76.5 H, Lymph % (Auto) 15.6 L, [place] % (Auto) 6.7, Eos % (Auto) 0.1, [...] Clarity Clear, Urine pH 7.0, Ur Specific [place] 1.010, Urine Protein 15 H, Urine Glucose [...] % (Auto) 65.3, Lymph % (Auto) 22.7, [place]% (Auto) 10.3 H, Eos % (Auto) 0.2, [...] 16:00 IMPRESSION: NO ACUTE FINDINGS. Reading Location: [facility] Physical Exam Const alert and no [...] in AM. Charges/Coding Visit Charges Inpatient E&M: 75073 Subs Hosp L2 05/04/25 1333 <Electronically signed by Kevin Singh DO> Cosigner Signature (if applicable): CC: ~ Signed [facility] Work Phone: 1(357) 532-631706-08-2025 Progress note [facility] Medical Records Department [address] [place] [address] Progress Note - Hospitalist 05/04/25 0911 MR#: [id number] Acct: [id number] Name: LYNNETTE GONG Rep #:[id number] : 1970 54 From: Kevin Singh DO PCP: UMAIR Taveras Status:ADM IN Location: [place] [address]- 1 Reason for Visit Reason for Visit: [...] 76.5 H, Lymph % (Auto) 15.6 L, [place] % (Auto) 6.7, Eos % (Auto) 0.1, [...] Clarity Clear, Urine pH 7.0, Ur Specific [place] 1.010, Urine Protein 15 H, Urine Glucose [...] % (Auto) 65.3, Lymph % (Auto) 22.7, [place]% (Auto) 10.3 H, Eos % (Auto) 0.2, [...] 16:00 IMPRESSION: NO ACUTE FINDINGS. Reading Location: [facility] Physical Exam Const alert and no [...] in AM. Charges/Coding Visit Charges Inpatient E&M: 49888 Subs Hosp L2 05/04/25 1333 Cosigner Signature (if applicable): CC: ~ Signed [facility]06-07-2025 History and physical note Author Meseret Minor [facility] Note Date/Time May 03, 2025 7:01p m [facility] Medical Records Department [address] [place] [address] H&P Exam - Hospitalist 05/03/25 1806 MR#: [id number] Acct: [id number] Name: LYNNETTE GONG Rep #:[id number] : 1970 54 From: Meseret Minor DO PCP: UMAIR Taveras Status:ADM IN Location: [facility] [id number]- [id number] HPI - General General Date of Admission: 05/03/25 Date of Service: 05/03/25 Chief Complaint: Elevated blood pressure HPI Narrative LYNNETTE GONG, is a 54 M who presented to the emergency department [facility] on 05/03/2025 with the chief complaint [...] his most recent blood pressure at 159/89. [facility] Medical History HTN (hypertension) Morbid obesity Home [...] 76.5 H, Lymph % (Auto) 15.6 L, [place] % (Auto) 6.7, Eos % (Auto) 0.1, [...] 16:00 IMPRESSION: NO ACUTE FINDINGS. Reading Location: [id number] Assessment & Plan Assessment/Plan (1) Acute hyponatremia: [...] and asked his PCP to call in [employer] however it is too expensive for him. - We did discuss that there are other alternatives and I recommended he discuss this with his primary care physician- DVT prophylaxis - Lovenox SQ twice daily CODE STATUS - Full code Charges/Coding Visit Charges Inpatient E&M: 85780 Init Hosp L2 05/03/25 190 <Electronically signed by Meseret Minor DO> Cosigner Signature (if applicable): CC: COMPOSITE BOND TECHNICIAN-C Deborah Roa; Dr. Meseret Minor DO~ Signed [facility] Work Phone: 1(536) 444-996206-07-2025 Discharge summary Author Allan Jc [facility] Note Date/Time May 03, 2025 6:22p m [facility] Medical Records Department [address] [place] [address] Emergency Department Summary 05/03/25 MR#: [id number] Acct: [id number] Name: LYNNETTE GONG Rep #:[id number] : 1970 54 From: Allan Jc DO [...] that he no longer has a headache. [facility] Medical History (Updated 05/03/25 @ 18:22 by [...] following commands knew that he was at [facility] year is 2024 patient NIH of 0 [...] 76.5 H Lymph % (Auto) 15.6 L [place] % (Auto) 6.7 Eos % (Auto) 0.1 [...] 16:00 IMPRESSION: NO ACUTE FINDINGS. Reading Location: [facility] Discharge Plan Triage Chief Complaint: Hypertension ED Provider: Allan Jc Dx/Rx/DC Orders Clinical Impression: Acute hyponatremia, Hyperglycemia, Hypertension Prescriptions: No Action losartan 25 mg tablet 25 mg PO DAILY Primary Care Provider: Deborah Roa Referrals: Care Physician,No Primary [Non-Staff] - Print Language: East [place]se Disposition Disposition: Acute Care Hospital [facility] What to do if you have Problems For any increased pain, shortness of breath, bleeding, nausea or vomiting, chestpain, or any unexpected problems, contact your Primary Care Provider. Call [facility] ([phone]) or report to the closest Emergency Room. Call 911 if necessary. 05/03/251821 <Electronically signed by Allan Jc DO> Cosigner Signature (if applicable): CC: UMAIR Roa ~ Signed [facility] Work Phone: 1(690) 414-510306-07-2025 Evaluation note* Diagnosis Onset Date Resolution Status Admit Date Acute hyponatremia acute May 032024 6:03pm Hyperglycemia acute May 03 025 6:03pm Hypertensive urgency acute May 03, 2025 6:03pm [facility] Work Phone: 1(161) 208-823606-07-2025 Evaluation note* Diagnosis Onset Date Resolution Status Admit Date Acute hyponatremia resolved May 032024 6:03pm Hyperglycemia resolved May 03 025 6:03pm Hypertensive urgency resolved May 03, 2025 6:03pm Constipation acute May 12 1:20pm Screen for colon cancer acute J une 2024 1:20pm [facility] Work Phone: 1(803) 322-817806-07-2025 History and physical note [facility] Medical Records Department [address] [place] [address] H&P Exam - Hospitalist 05/03/25 1806 MR#: [id number] Acct: [id number] Name: LYNNETTE GONG Rep #:[id number] : 1970 54 From: Meseret Minor DO PCP: UMAIR Taveras Status:ADM IN [facility] HPI - General General Date of Admission: 05/03/25 Date of Service: 05/03/25 Chief Complaint: Elevated blood pressure HPI Narrative LYNNETTE GONG, is a 54 M who presented to the emergency department [facility] on 05/03/2025 with the chief complaint [...] his most recent blood pressure at 159/89. [facility] Medical History HTN (hypertension) Morbid obesity Home [...] 76.5 H, Lymph % (Auto) 15.6 L, [place] % (Auto) 6.7, Eos % (Auto) 0.1, [...] 16:00 IMPRESSION: NO ACUTE FINDINGS. Reading Location: [facility] Assessment & Plan Assessment/Plan (1) Acute [...] and asked his PCP to call in [employer] however it is too expensive for him. - We did discuss that there are other alternatives and I recommended he discuss this with his primary care physician- DVT prophylaxis - Lovenox SQ twice daily CODE STATUS - Full code Charges/Coding Visit Charges Inpatient E&M: 98440 Init Hosp L2 05/03/25 1901 Cosigner Signature (if applicable): CC: UMAIR Roa; Dr. Meseret Minor, DO~ Signed [facility]06-07-2025 Discharge summary [facility] Medical Records Department [address] [place] [address] Emergency Department Summary 05/03/25 MR#: [id number] Acct: [id number] Name: LYNNETTE GONG Rep #:[id number] : 1970 54 From: Allan Jc DO [...] that he no longer has a headache. [facility] Medical History (Updated 05/03/25 @ 18:22 by [...] following commands knew that he was at [facility] year is 2024 patient NIH of 0 [...] 76.5 H Lymph % (Auto) 15.6 L [place] % (Auto) 6.7 Eos % (Auto) 0.1 [...] 16:00 IMPRESSION: NO ACUTE FINDINGS. Reading Location: [facility] Discharge Plan Triage Chief Complaint: Hypertension ED Provider: Allan Jc Dx/Rx/DC Orders Clinical Impression: Acute hyponatremia, Hyperglycemia, Hypertension Prescriptions: No Action losartan 25 mg tablet 25 mg PO DAILY Primary Care Provider: Deborah Roa Referrals: Care Physician,No Primary [Non-Staff] - Print Language: [place]se Disposition Disposition: Acute Care Hospital [facility] What to do if you have Problems For any increased pain, shortness of breath, bleeding, nausea or vomiting, chestpain, or any unexpected problems, contact your Primary Care Provider. Call [facility] ([phone]) or report tothe closest Emergency Room. Call 911 if necessary. 05/03/25 0202 Cosigner Signature (if applicable): CC: COMPOSITE BOND TECHNICIANLaurel Roa ~ Signed [facility]06-07-2025 Radiology Diagnostic study note [facility] Imaging Services [address] [place], [place] [id number] Chest PA and Lateral MR#: [id number] Acct: [id number] Name: LYNNETTE GONG Rep #: [id number] : 1970 M 54 From: Kimberly Vaughan MD PCP: Deborah Roa NP-C Status: REG ER Study:Chest PA and Lateral Date of Exam: 05/03/25 Exam# [id number] Ordering Dr: Dhaval Jc DO PROCEDURE: CHEST [...] Lateral IMPRESSION: NO ACUTE FINDINGS. Reading Location: [facility] CC: COMPOSITE BOND TECHNICIAN-C Deborah Roa; Dr. Allan Jc DO ~ Chief Steward/Stewardess: Signed [facility]12-21-2022 NoteClinical Note - Pharmacy v2: Education: [...] Post-Discharge Culture Follow Up Team, please contact [phone]. . Aspen Chapa PharmD PGY1 Resident [facility] Electronic Signatures: Aspen Chapa (PHARM STUD) (Signed 16-Nov-2022 15:13) Authored: Education Deborah Ramirez (PharmD) (Signed 17-Nov-2022 08:30) Co-Signer: Education Last Updated: 17-Nov-2022 08:30 by Deborah Ramirez (PharmD)[facility] Author Kevin Singh [facility] Note Date/Time May 05, 2025 10:09 am [facility] Medical Records Department [address] [place] [address] Discharge Summary 05/05/25 1004 MR#: [id number] Acct: [id number] Name: LYNNETTE GONG Rep #:[id number] : 1970 54 From: Kevin Singh DO PCP: UMAIR Taveras Status:ADM IN Location: [place] [address] Providers Date of Admission: 05/03/25 Primary Care [...] 05/05/25 at 1009 Visit Charges Inpatient E&M: 63452 Disch Hosp 05/05/25 1009<Electronically signed by Kevin Singh DO> Cosigner Signature (if applicable): cc: UMAIR Roa; Dr. Kevin Singh DO ~* Signed [facility] Work Phone: Evaluation noteNo assessment information available [facility] Work Phone: Evaluation note* Diagnosis Onset Date Resolution Status Admit Date Acute hyponatremia acute May 032024 6:03pm Hyperglycemia acute May 03, 025 6:03pm Hypertensive urgency acute May 03, 2025 6:03pm [facility] Work Phone: History and physical note Author Meseret Minor [facility] Note Date/Time May 03, 2025 7:01p m [facility] Medical Records Department [address] [place] [address] H&P Exam - Hospitalist 05/03/25 1806 MR#: [id number] Acct: [id number] Name: LYNNETTE GONG Rep #:[id number] : 1970 54 From: Meseret Minor DO PCP: UMAIR Taveras Status:ADM IN Location: [facility] [id number]- 1 HPI - General General Date of Admission: 05/03/25 Date of Service: 05/03/25 Chief Complaint: Elevated blood pressure HPI Narrative LYNNETTE GONG, is a 54 M who presented to the emergency department [facility] on 05/03/2025 with the chief complaint [...] his most recent blood pressure at 159/89. [facility] Medical History HTN (hypertension) Morbid obesity Home [...] 76.5 H, Lymph % (Auto) 15.6 L, [place] % (Auto) 6.7, Eos % (Auto) 0.1, [...] 16:00 IMPRESSION: NO ACUTE FINDINGS. Reading Location: [id number] Assessment & Plan Assessment/Plan (1) Acute hyponatremia: [...] and asked his PCP to call in [employer] however it is too expensive for him. - We did discuss that there are other alternatives and I recommended he discuss this with his primary care physician- DVT prophylaxis - Lovenox SQ twice daily CODE STATUS - Full code Charges/Coding Visit Charges Inpatient E&M: 98768 Init Hosp L2 05/03/25 1901 <Electronically signed by Meseret Minor DO> Cosigner Signature (if applicable): CC: UMAIR Roa; Dr. Meseret Minor DO~ Signed [facility] Work Phone: Hospital Discharge instructions Additional Instructions Please return if you lose consciousness, if you develop chest pain, if you have shortness of breath we have difficulty with exertion. Please follow-up with the family practice physician Dr. Dias. Please get an outpatient stress test for further evaluation of possible heart issues.[facility] Work Phone: Reason for referral (narrative)No reason for referral [facility] Work Phone: Chief Complaint and Reason [...] Will No September 20 2:16pm Power of Benefit Authorizer No September 20, 2022 2:16pm Advance Directive Response Recorded Date/ Time Do you have a Healthcare Power of Benefit Authorizer? No May 03, 2025 3:36pm Advance Directive Response Recorded Date/ Time Do you have a Healthcare Power of Benefit Authorizer? No May 03, 2025 7:20pm Summary Purpose [...] section and content) DATE CREATED AUTHOR 11/18/2022 [facility] DATE CREATED AUTHOR AUTHOR'S ORGANIZ ATION 06/05/2025 [facility] Care Teams (unrecognized sec tion and [...] Active Start: May 05, 2025 Deborah Roa COMPOSITE BOND TECHNICIAN-C Primary Care Provider Active Start: May 05, [...] Active Start: May 03, 2025 Deborah Roa COMPOSITE BOND TECHNICIAN-C Primary Care Provider Active Start: May 03, [...] End: May 12, 2025 Deborah Roa , COMPOSITE BOND TECHNICIAN-C Primary Care Provider Active Start: May 12, 2025 End: May 12, 2025 Team Status: Active Member Role/Relationship Status Dates Deborah Roa COMPOSITE BOND TECHNICIAN-C Primary Care Provider Active Team Status: Inactive Member Role/Relationship Status Dates Dr. Allan Jc DO Emergency Provider Active Start: May 03, 2025 End: May 05, 2025 Deborah Crispin , COMPOSITE BOND TECHNICIAN-C Primary Care Provider Active Start: May 03, [...] Active Start: May 03, 2025 Deborah Roa COMPOSITE BOND TECHNICIAN-C Primary Care Provider Active Start: May 03, [...] Active Start: May 04, 2025 Deborah Roa COMPOSITE BOND TECHNICIAN-C Primary Care Provider Active Start: May 04, [...] Active Start: May 05, 2025 Deborah Roa COMPOSITE BOND TECHNICIAN-C Primary Care Provider Active Start: May 05, [...] 2025 End: May 12, 2025 Deborah Roa COMPOSITE BOND TECHNICIAN-C Primary Care Provider Active Start: May 12, [...] End: June 10, 2025 Anay Bull NP COMPOSITE BOND TECHNICIAN-C Attending Provider Active Start: June 10, 2025 [...] BE BASED ON THE PRIMARY CLINICAL RECORDS. [facility] [employer] [facility]. provides no warranty or guarantee of the accuracy or completeness of information in this document.
== END | disposition home or self-care (01) ==
LOC: CT 13:30
PROVIDERS: PCP Nurse Practitioner Family; Referring Provider Nurse Practitioner Family; Visit Provider Nurse Practitioner Family
DX: Z12.2 Encounter for screening for malignant neoplasm of respiratory organs (principal); Z87.891 Personal history of nicotine dependence
CPT/HCPCS: 71271

== ENCOUNTER → 2025-06-17 | Outpatient (CLI) | payer MEDICARE, MEDICAID, SELFPAY ==
--- NOTE | 2025-06-17 11:16 | RAD_ITS ---
EXAM: XR Abdomen, 1 View CLINICAL INDICATION: CONSTIPATION, MELENA, NAUSEA TECHNIQUE: Frontal supine view of the abdomen/pelvis. COMPARISON: No relevant prior studies available. FINDINGS: GASTROINTESTINAL TRACT: Fecal retention in the colon consistent with constipation. No dilation. BONES/JOINTS: Unremarkable. No acute fracture. RAD/Abdomen Single View IMPRESSION: Fecal retention in the colon consistent with constipation. Reading Location: [id number]
[2025-06-17 15:25] LABS: Hematocrit 39.4 % (40-54); Hemoglobin 13.7 g/dL (13.0-16.5); Immature Granulocytes Count 0.080 X10^3/uL (0.0-0.0); Mean Corp Hgb Conc 34.8 g/dL (32-36); Mean Corpuscular Volume 82.8 fL (80-94); Mean Platelet Vol. 9.5 fl (6.2-12.0); NRBC Flagged by Analyzer 0 % (0-5); Platelet Count 384 K/mm3 (150-450); RBC Distribution Width CV 13.0 % (11.6-14.6); RBC Distribution Width SD 39.4 fl (35.1-43.9); Red Blood Count 4.76 M/mm3 (4.6-6.2); White Blood Count 11.1 K/mm3 (4.4-11.0)
[2025-06-17 16:40] LABS: Anion Gap 13 (5-15); BUN 10 mg/dL (4-19); BUN/Creat Ratio 10.7 RATIO (10-20); Calcium,Total 9.7 mg/dL (7.6-11.0); Carbon Dioxide 21.8 mmol/L (21.0-32.0); Chloride 89 mmol/L (98-108); Glucose 106 mg/dL (70-99); Potassium 4.6 mmol/L (3.3-5.1)
== END | disposition home or self-care (01) ==
LOC: MTLAB 11:15
PROVIDERS: PCP Nurse Practitioner Family; Referring Provider Nurse Practitioner Family; Visit Provider Nurse Practitioner Family
DX: K59.00 Constipation, unspecified (principal); K92.1 Melena; E87.1 Hypo-osmolality and hyponatremia; R25.2 Cramp and spasm
CPT/HCPCS: 36415; 74018; 80048; 85025

== ENCOUNTER 2025-06-23 15:11 | Emergency (ER) | payer MEDICARE, MEDICAID, SELFPAY ==
[2025-06-23 15:12] VITALS: BP 187/93; PULSE 77; RESP 18; TEMP 36.6; O2SAT 98; BMI 48.7
--- NOTE | 2025-06-23 15:51 | ED.VIS.GI ---
HPI HPI - GI History of Present Illness Chief Complaint: Constipation Informant: patient Narrative Narrative: Presents for constipation. Typically has normal bowel movement for last month's change. [id number] stool softeners and MiraLAX. Saw his primary care office last week outpatient x-ray reported constipation. Increase his stool softener use however no bowel movements he is passing gas. Denies any abdominal surgery. No recent surgeries. Discussed in further he does take kratom for pain for the last 2 years he has had increasing intermittent doses in the last month. Deals with knee and back pain. Called his PCP office was told to go to emergency room. Denies fevers denies abdominal pain. Denies urinary symptoms. Prior similar symptoms: Yes PFSH PFSH Medical History Tobacco use disorder, continuous Encounter for screening for malignant neoplasm of lung Constipation Chronic pain Smoker Migraines TIA (transient ischemic attack) HTN (hypertension) Morbid obesity Home Medications ?Medication ?Instructions ?Recorded ?Last Taken ?Type losartan 100 mg tablet 100 mg PO DAILY #30 tabs 05/05/25 Unknown Rx amlodipine 10 mg tablet 10 mg PO DAILY 06/23/25 Unknown History ondansetron 4 mg disintegrating 4 mg PO Q8H PRN PRN Nausea #10 tabs 06/23/25 Unknown Rx tablet Allergy/AdvReac Type Severity Reaction Status Date / Time No Known Allergies Allergy Verified 06/23/25 15:13 Surgical History History of right knee joint replacement Social History Smoking Status: Current every day smoker tobacco type: cigarettes alcohol intake: never substance use type: does not use ROS ROS ED Constitutional Constitutional ED: Denies fever(s) Cardiovascular Cardiovascular: Denies chest pain Respiratory/Chest Respiratory/Chest: Denies cough Gastrointestinal Gastrointestinal: Reports constipation; Denies abdominal pain, diarrhea or vomiting Musculoskeletal Musculoskeletal: Denies none Integumentary Denies rash or wounds Neurologic Neurologic: Denies weakness EXAM Physical Exam Const Vital Signs: 06/23/25 15:12 06/23/25 17:11 06/23/25 17:47 Temperature 98 F 98.1 F Temperature Source Oral Pulse Rate 77 78 79 Respiratory Rate 18 22 H 20 H Blood Pressure 187/93 H 131/80 H Blood Pressure Mean 124 97 Pulse Ox 98 98 98 Oxygen Delivery Method Room Air Room Air Positive well nourished and well developed General Appearance ED: well developed and NAD HEENT Reports moist mucous membranes normocephalic and atraumatic Eyes General Eye ED: Yes normal appearance of both eyes Neck full ROM Chest Wall Chest: Negative for tenderness Resp normal respiratory effort and normal air movement Effort and Inspection: symmetric chest movement; Negative for respiratory distress Cardio regular rate, regular rhythm and no murmurs Peripheral Pulses: pulses 2+ throughout GI normal to inspection, nondistended, normoactive bowel sounds and non-tender GI Narrative: Rectum: No hemorrhoids. Digital rectal exam could not palpate any impacted stools. Palpation: Negative for guarding or rebound tenderness present Extremity normal to inspection General Extremety ED: Negative for edema or tenderness General Extremity: Negative for edema Neuro oriented x3 and no sensory deficits noted Sensorium / Orientation: awake and alert Skin no rashes or lesions noted and no wounds MDM MDM MDM Narrative Medical decision making narrative: Interventions / MDM: Differential diagnosis: Constipation. Diagnosis considered but do not suspect: No clinical diverticulitis. No clinical obstruction. My EKG interpretation: N/A Imaging independently reviewed and interpreted by myself: KUB: No stool noted in the rectum. External documents reviewed: N/A Test considered but not ordered:N/A ED course: Patient increasing constipation likely from his increased kratom use which she has opiate like substance. Nonsurgical abdomen. Rectal exam could not feel any impaction distally. Will check KUB plan for enema. KUB did note stools more towards the rectal vault. Soapsuds enema was ordered. He states only fluid output. He is nontoxic. Reported nausea. No clinical obstruction. There is no surgical history. Discussed with patient using his MiraLAX cup full water with 1 scoop every hour until bowel movement. Given prescription for Zofran with 1 dose given the ED. All questions were answered. Re-evaluation: stable Disposition discussed with patient/family/significant other: Patient Case discussed with consulting clinician: N/A This note was generated with [employer] dictation software. It may contain incorrect words, spelling, and punctuation that were not noted in checking the note before signing. Radiography Diagnostic Testing: Clinical Impression(s) from Imaging Studies KUB X-Ray 06/23/25 16:10 IMPRESSION: Limited study. Similar fecal load within the rectum may indicate constipation.. Reading Location: [id number] Discharge Plan Triage Chief Complaint: Constipation ED Provider: Juan Rush Dx/Rx/DC Orders Clinical Impression: Constipation Instructions: ED Constipation (Adult) Prescriptions: New ondansetron 4 mg tablet,disintegrating 4 mg PO Q8H PRN PRN (Reason: Nausea) Qty: 10 0RF No Action losartan 100 mg Tablet 100 mg PO DAILY Qty: 30 0RF amlodipine 10 mg tablet 10 mg PO DAILY Primary Care Provider: Deborah Roa Referrals: Deborah Roa, [facility] [Primary Care Provider] - 1 Week Activity Restrictions/Additional Instructions: re x-ray consistent with constipation. Status post enema in the ED. take your MiraLAX 1 full cup of water with 1 cup every hour until you have a bowel movement. Continue your stool softeners. Follow-up with your doctor Print Language: Kiswahili Disposition Disposition: Home, Self Care Discharge Date/Time: 06/23/25 17:48
--- NOTE | 2025-06-23 16:10 | RAD_ITS ---
PROCEDURE: ABDOMEN SINGLE VIEW 06/23/2025 REASON FOR EXAM: CONSTIPATION TECHNIQUE: ABDOMEN SINGLE VIEW COMPARISON: Abdominal radiographs 06/17/2025. FINDINGS: Only the lower abdomen/pelvis is imaged on this exam. Visualized bowel gas pattern is nonobstructive. There appears to be stool within the rectum, possibly indicating constipation. Osseous structures appear intact and within normal limits. No unusual calcific density. RAD/Abdomen Single View IMPRESSION: Limited study. Similar fecal load within the rectum may indicate constipation.. Reading Location: [id number]
[2025-06-23 17:11] VITALS: PULSE 78; RESP 22; O2SAT 98
[2025-06-23 17:47] VITALS: BP 131/80; PULSE 79; RESP 20; TEMP 36.7; O2SAT 98
== END 2025-06-23 17:48 | disposition home or self-care (01) ==
PROVIDERS: Emergency Provider Emergency Medicine; PCP Nurse Practitioner Family; Visit Provider Emergency Medicine
DX: K59.00 Constipation, unspecified (principal); I10 Essential (primary) hypertension; Z86.73 Personal history of transient ischemic attack (TIA), and cerebral infarction without residual deficits; Z79.899 Other long term (current) drug therapy; Z96.651 Presence of right artificial knee joint; F17.210 Nicotine dependence, cigarettes, uncomplicated
CPT/HCPCS: 74018; 99284; A4216

== ENCOUNTER → 2025-07-17 | Outpatient (CLI) | payer MEDICARE, MEDICAID, SELFPAY ==
[2025-07-17 14:07] LABS: Anion Gap 14 (5-15); BUN 4 mg/dL (4-19); BUN/Creat Ratio 4.3 RATIO (10-20); CORTISOL AM 6.83 ug/dL (6.02-18.40); Calcium,Total 9.2 mg/dL (7.6-11.0); Carbon Dioxide 22.7 mmol/L (21.0-32.0); Chloride 86 mmol/L (98-108); Glucose 99 mg/dL (70-99); Potassium 3.8 mmol/L (3.3-5.1)
== END | disposition home or self-care (01) ==
LOC: LAB 11:57
PROVIDERS: PCP Nurse Practitioner Family; Referring Provider Nurse Practitioner Acute Care; Visit Provider Nurse Practitioner Acute Care
DX: E87.1 Hypo-osmolality and hyponatremia (principal); R51.9 Headache, unspecified
CPT/HCPCS: 36415; 80048; 82533; 84443

== ENCOUNTER → 2025-08-04 | Outpatient (CLI) | payer MEDICARE, MEDICAID, SELFPAY ==
[2025-08-04 19:47] LABS: Anion Gap 15 (5-15); BUN 9 mg/dL (4-19); BUN/Creat Ratio 11.6 RATIO (10-20); Calcium,Total 9.3 mg/dL (7.6-11.0); Carbon Dioxide 22.5 mmol/L (21.0-32.0); Chloride 90 mmol/L (98-108); Glucose 96 mg/dL (70-99); Potassium 4.2 mmol/L (3.3-5.1)
[2025-08-04 22:53] LABS: Osmolality, Urine 480 mOsm/KG
== END | disposition home or self-care (01) ==
LOC: BFHLAB 15:04
PROVIDERS: PCP Nurse Practitioner Family; Visit Provider Nurse Practitioner Family
DX: E87.1 Hypo-osmolality and hyponatremia (principal)
CPT/HCPCS: 36415; 80048; 83935; 84300

== ENCOUNTER 2025-08-14 09:12 | Outpatient (CLI) | payer MEDICARE, MEDICAID, SELFPAY ==
[2025-08-14 09:48] VITALS: BP 142/71; PULSE 67; RESP 18; TEMP 35.6; O2SAT 97
[2025-08-14 10:28] LABS: CORTISOL AM 20.60 ug/dL (6.02-18.40)
[2025-08-14 10:52] LABS: CORTISOL AM 29.20 ug/dL (6.02-18.40)
[2025-08-14 11:38] LABS: CORTISOL AM 35.80 ug/dL (6.02-18.40)
== END 2025-08-14 23:59 | disposition home or self-care (01) ==
LOC: MEDOUTP 09:14
PROVIDERS: PCP Nurse Practitioner Family; Referring Provider Nurse Practitioner Acute Care; Visit Provider Nurse Practitioner Acute Care
DX: E87.1 Hypo-osmolality and hyponatremia (principal)
CPT/HCPCS: 36415; 82533; 96372; J0834

== ENCOUNTER 2025-09-17 12:23 | Day surgery (SDC) | payer MEDICARE, MEDICAID, SELFPAY ==
--- NOTE | 2025-09-15 14:04 | PAT.ANESEVAL ---
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 When Was Last Pacemaker Check QUESTION #4 FULL TEXT: You/Your Family Experience fever (hyperthermia) with Anesthesia Last Oral Intake Last Oral intake: Last Oral Intake NPO since Meds taken in AM with sips of water? Meds patient instructed to take am of surgery PONV PONV - assembly line upholsterer: PONV - assembly line upholsterer Female No 09/15/25 13:45 HX of Motion Sickness No 09/15/25 13:45 HX of N/V After Surgery No 09/15/25 13:45 Non-Smoker No 09/15/25 13:45 Duration of Surgery greater No 09/15/25 13:45 than 60 minutes Number of Risk Factors PONV Score Height & Weight Height & Weight: Anesthesia: Height & Weight Height 5 ft 7 in 08/14/25 09:48 Respiratory Assessment Respiratory Assessment - assembly line upholsterer: Respiratory Tract Infection Hx - assembly line upholsterer Hx Respiratory Tract Infection No 09/15/25 13:45 STOP Sleep Apnea STOP Sleep Apnea - assembly line upholsterer: STOP Sleep Apnea - assembly line upholsterer Hx Hypertension Yes: STILL WORKING ON, 09/15/25 13:45 IMPROVING BUT NOT NORMAL Hx Sleep Apnea No 09/15/25 13:45 CPAP No 05/03/25 19:20 BIPAP No 05/03/25 19:20 Do you snore loudly (louder No 09/15/25 13:45 than talking or can be heard Do you often feel tired/ No 09/15/25 13:45 fatigued/ sleepy during daytime? Has anyone observed you stop No 09/15/25 13:45 breathing during sleep? STOP Results Negative 09/15/25 13:45 QUESTION #5 FULL TEXT : Do you snore loudly (louder than talking or can be heard through closed doors)? Tobacco Use History Tobacco Use History - assembly line upholsterer: Tobacco Use History - assembly line upholsterer Tobacco Use Smoking Status Current every day smoker 09/15/25 13:45 Hx Tobacco Use Yes 09/15/25 13:45 Years Smoking Packs Smoked per Day Smoking Cessation Date was within the last 15 years Hx Smoking Cessation Date Hx Smoking Cessation Counseling Hematologic Medial History Hematologic Hx - assembly line upholsterer: Hematologic Medical Hx - rn documentation specialist Hx of Blood Transfusion No 09/15/25 13:45 Hx of Transfusion in last 3 No 09/15/25 13:45 Months Date of Last Transfusion (if within last 3 months) Ever experience any problems No 09/15/25 13:45 with transfusion(s)? Specify any problems Hx of Preganancy in last 3 N/A 09/15/25 13:45 Months Nurse Filling Out Transfusion NBUCHER 09/15/25 13:45 & Questions: Date: 09/15/25 09/15/25 13:45 Time: 13:46 09/15/25 13:45 Patient unable to answer at this time (ie. confused, unrespo /Reproduction History /Reproductive History - assembly line upholsterer: /Reproductive Hx- assembly line upholsterer Hx Now No 09/15/25 13:45 Gestational Age (in weeks): EDC: Hx Hx Para Hx Section SAB No 09/15/25 13:45 PFSH Medical History (Updated 09/15/25 @ 13:53 by Lissy Miller) Emphysema, unspecified Wears glasses Loose, teeth Ambulates with cane High cholesterol Heartburn Gastric reflux Chronic cough Chest pain History of CVA (cerebrovascular accident) Back pain Arthritis Essential (primary) hypertension Osteoarthritis of knees, bilateral Tobacco use disorder, continuous Encounter for screening for malignant neoplasm of lung Constipation Chronic pain Smoker Migraines TIA (transient ischemic attack) HTN (hypertension) Morbid obesity Home Medications ?Medication ?Instructions ?Recorded ?Last Taken ?Type losartan 100 mg tablet 100 mg PO DAILY #30 tabs 05/05/25 Unknown Rx amlodipine 10 mg tablet 10 mg PO DAILY 06/23/25 Unknown History bisacodyl 5 mg tablet,delayed 5 mg PO QDAY PRN constipation 07/16/25 Unknown History release (Dulcolax (bisacodyl)) docusate sodium 100 mg capsule 200 mg PO QDAY 07/16/25 Unknown History (Stool Softener) linaclotide 290 mcg capsule 290 mcg PO QAM #90 caps 08/11/25 Unknown Rx (Linzess) metoclopramide HCl 5 mg tablet 5 mg PO QAC #30 tabs 08/11/25 Unknown Rx (Reglan) pantoprazole 40 mg tablet,delayed 40 mg PO QDAY #90 tabs 08/11/25 Unknown Rx release Allergy/AdvReac Type Severity Reaction Status Date / Time No Known Allergies Allergy Verified 09/15/25 13:41 Surgical History History of right knee joint replacement Social History Smoking Status: Current every day smoker tobacco type: cigarettes Tobacco: How many years used: 30 alcohol intake: never substance use type: other details: magic mushrooms for pain Audit: Pertinent Findings Pertinent Findings EKG Perinent findings: 05/03/2025. Normal sinus rhythm with sinus arrhythmia. Left axis deviation. Right bundle branch block. Recommendation Anesthesia Recommendation Anesthesia recommendation: OPTIMIZED for anesthesia
--- NOTE | 2025-09-17 12:48 | PCM.HP.STD ---
[facility] - General General Date of Admission: 09/17/25 Date of Service: 09/17/25 Chief Complaint: Abdominal pain with nausea vomiting HPI Narrative LYNNETTE GONG, is a 55 M who presents [Chief Complaint: Nausea and vomiting OV 08/11/2025 54y/o male presents with intractable nausea and dry heaves in the context of chronic moderate hyponatremia (serum sodium 118?128 mmol/L, most recent 128), high urine osmolality (480 mOsm/kg), urine sodium (48 mmol/L), severe constipation, headaches, normal TSH, indeterminate morning cortisol, and antihypertensive therapy (amlodipine, losartan). 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 He is scheduled for ACTH Stim Testing to be completed this , 08/14/2025. We have discussed use of ondansetron as excessive and likely contributing to constipation. I have prescribed metoclopramide 5 mg 3 times daily and we have reviewed potential side effects in detail. His frequent use of Excedrin is likely exacerbating his UGI symptoms and I have recommended he decrease use. He will start pantoprazole 40 mg once daily. In terms of constipation he did get good results previously with notable improvement in abdominal pain and nausea with Linzess 290 mcg. I have provided him samples and he will resume use of Linzess. He will follow-up with me in the office in 10 days. Patient Instructions: 1. Reduce use of Ondansetron this is likely contributing to worsening of constipation 2. Metoclopramide for nausea. Metoclopramide can cause tardive dyskinesia, a serious movement disorder that is often irreversible. There is no known treatment for tardive dyskinesia. The risk of developing tardive dyskinesia increases with duration of treatment and total cumulative dose. It is recommended to discontinue metoclopramide in patients who develop signs or symptoms of tardive dyskinesia. In some patients, symptoms lessen or resolve after metoclopramide is stopped. Avoid treatment with metoclopramide for longer than 12 weeks because of the increased risk of developing tardive dyskinesia with longer-term use. We have discussed 2 weeks wash out after 12 weeks of therapy and then resuming. We have discussed risk of recurrent symptoms (N/V) with holding therapy. 3. Resume Linzess 290mcg once daily, discussed risk of diarrhea and worsening hyponatremia. Samples provided and RX sent to pharmacy. If he is unable to afford Linzess (no RX insurance benefit) will provide additional samples and assist with PAP. 4. Proceed with ACTH Stim Test as scheduled on 08/14/2025 5. Reduce use of Excerdin 6. Start pantoprazole 40mg once daily 7. Follow-up in office on 08/21/2025 at 1130am. 8. Plan to proceed with EGD and Colonoscopy once safe. 9. Smoking cessation recommended - https://www.cdc.gov/tobacco/about/how-to-quit.html 10. Taper off Kratom Taking 1/8 cup of kratom powder daily for pain management poses significant risks, including gastrointestinal side effects (nausea, constipation, vomiting), neuropsychiatric effects (agitation, confusion, drowsiness), and the development of tolerance, dependence, and withdrawal symptoms. At this dose?approximately 15?20 grams, which is considered high?adverse effects are more likely and more severe, including potential for seizures, hepatotoxicity, and, in rare cases, , particularly with co-ingestion of other substances or contaminated products. The side effects of daily use of Kratom powder for the management of pain are primarily dose-dependent and include both mild and serious adverse effects. The most commonly reported are gastrointestinal symptoms such as nausea, constipation, and vomiting, which tend to occur at higher doses (typically >5 g/dose or >22 doses/week).[1-2] Other frequent side effects include agitation, tachycardia, drowsiness, and confusion. Chronic daily use is associated with dependence and withdrawal symptoms, which may resemble but are generally milder than those seen with classic opioids. Withdrawal can include irritability, anxiety, insomnia, muscle aches, and mood disturbances. Tolerance to analgesic effects may develop with ongoing use. Serious but less common adverse effects include seizures, hallucinations, psychosis, liver toxicity, and, rarely, respiratory depression, coma, or ?especially in cases of polysubstance use or contaminated products. There is also evidence of organ toxicity, particularly affecting the liver and kidneys, although the risk is difficult to quantify due to variability in product composition and lack of standardized dosing. Additional reported effects include dry mouth, polyuria, arrhythmia, and impaired memory function. The risk of adverse effects increases with higher doses and more frequent use, and contamination with heavy metals or biological toxins is a recognized concern. In summary, daily kratom use for pain management is associated with a spectrum of side effects ranging from mild gastrointestinal symptoms to serious neurological and organ toxicities, with dependence and withdrawal being notable risks. Hyponatremia is not a recognized risk in medical literature. ACTH Stim testing shows normal cortisol response, indicating adrenal insufficiency is not the cause of low sodium. Please make patient aware and forward results to PCP. I strongly recommend he taper off use of Kratom powder as this is likely a significant contributing factor for his symptoms. Although kratom is not directly implicated in causing SIADH or hyponatremia, kratom-induced severe nausea could indirectly precipitate hyponatremia secondary to SIADH. This is because severe nausea is a well-established nonosmotic stimulus for ADH secretion. Taking kratom --> causes severe nausea --> which causes inappropriate release of ADH (SIADH) ---> causing hyponatremia (low sodium) Further research shows a case study showing a patient with daily kratom ingestion with hyponatremia-induced AMS. Below is a link to this NIH article https://pmc.ncbi.nlm.nih.gov/articles/XZQ5789234/ OV 08/26/25 - Continues to have daily nausea and dry heaving but no vomiting -Taking Zofran 10 times per day -Continues with kratom -Taking Excedrin intermittently ] [facility] Medical History Emphysema, unspecified Wears glasses Loose, teeth Ambulates with cane High cholesterol Heartburn Gastric reflux Chronic cough Chest pain History of CVA (cerebrovascular accident) Back pain Arthritis Essential (primary) hypertension Osteoarthritis of knees, bilateral Tobacco use disorder, continuous Encounter for screening for malignant neoplasm of lung Constipation Chronic pain Smoker Migraines TIA (transient ischemic attack) HTN (hypertension) Morbid obesity Home Medications ?Medication ?Instructions ?Recorded ?Last Taken ?Type losartan 100 mg tablet 100 mg PO DAILY #30 tabs 05/05/25 Unknown Rx amlodipine 10 mg tablet 10 mg PO DAILY 06/23/25 Unknown History bisacodyl 5 mg tablet,delayed 5 mg PO QDAY PRN constipation 07/16/25 Unknown History release (Dulcolax (bisacodyl)) docusate sodium 100 mg capsule 200 mg PO QDAY 07/16/25 Unknown History (Stool Softener) linaclotide 290 mcg capsule 290 mcg PO QAM #90 caps 08/11/25 Unknown Rx (Linzess) metoclopramide HCl 5 mg tablet 5 mg PO QAC #30 tabs 08/11/25 Unknown Rx (Reglan) pantoprazole 40 mg tablet,delayed 40 mg PO QDAY #90 tabs 08/11/25 Unknown Rx release Allergy/AdvReac Type Severity Reaction Status Date / Time No Known Allergies Allergy Verified 09/15/25 13:41 Surgical History History of right knee joint replacement Social History Smoking Status: Current every day smoker Tobacco: How many years used: 30 alcohol intake: never substance use type: other details: magic mushrooms for pain ROS Constitutional Constitutional: Denies fatigue, fever(s), poor appetite, weight gain or weight loss Gastrointestinal Gastrointestinal: Denies belching, bloating, change in bowel habits, change in stool character, chewing difficulty, coffee ground emesis, constipation, cramping, diarrhea, dyspepsia, dysphagia, early satiety, excessive flatus, fecal incontinence, heartburn, hematemesis, hematochezia, hemorrhoids, loose stools, melena, nausea, odynophagia, rectal bleeding, tenesmus, vomiting or weight changes Physical Exam Const alert, oriented x3, no apparent distress and healthy appearing General Appearance: cooperative GI normal to inspection, nondistended, normoactive bowel sounds, soft to palpation, non-tender and non-distended Percussion: normal to percussion Rectal Exam: deferred Assessment & Plan Assessment/Plan (1) Abdominal pain: PLAN: Assessment and Plan Assessment and Plan (1) Nausea: Status: Acute Plan: Lynnette is a 55-year-old male patient here today for follow-up regarding his ongoing nausea, dry heaving and hyponatremia. Patient is established patient of Elizabet Diop NP however she is out of the office today and patient was seen by me for continued symptoms. Patient had ACTH stimulation test was with appropriate cortisol response which indicates there is not an adrenal problem as cause of his hyponatremia. Patient continues to use kratom daily and I did advise cessation and explained the possible correlation with his hyponatremia. I offered referral to psychiatry for help with tapering off of kratom however patient declines. Patient admits that is the only thing that controls his pain and is unwilling to discontinue at this time. He will be scheduled for EGD to evaluate his upper GI tract for etiology of his nausea. Will repeat CBC and CMP today. I provided more samples of Linzess to 90 mcg daily. I advise decreasing his usage of Zofran and instead using Reglan. He is unsure if he is using the Reglan or not. Patient will follow-up with Elizabet in the office in 3 weeks. - EGD - Discontinue kratom - Decrease Zofran usage - Try Reglan - Repeat CBC and CMP (2) Abdominal pain: Status: Acute (3) Hyponatremia: Status: Acute Orders: Orders CBC W/Diff, Automated Today R11.0 - Nausea Comprehensive Metabolic Profil Today E87.1 - Hypo-osmolality and hyponatremia, R10.9 - Unspecified abdominal pain, R11.0 - Nausea
[2025-09-17 12:52] VITALS: BP 154/92; PULSE 74; RESP 20; TEMP 36.4; O2SAT 98; BMI 45.6
[2025-09-17] MEDS: Lactated Ringers 1,000 ML 15 ML IV (12:55)
--- NOTE | 2025-09-17 13:30 | EGD_PTH ---
PATIENT: LYNNETTE GONG LOC: [facility] U#:[id number] AGE/SX: 55/M ROOM: RE09/17/[address]: Dr. Tito Morris DO : 1970 BED: DIS: 09/17/2025 SPEC #: [id number] RECD: 09/17/25 14:26 STATUS: DONAVON TATY #: [id number] DEIDRA: 09/17/25 13:[address]: Tito Morris DEPT: SURGICAL PATHOLOGY RECD BY: Larry Colon ENTERED: 09/17/25 15:02 SP TYPE: EGD BIOPSY OT DR: Deborah Roa, MARINE FIRER-C Tissues: A - Esophagus, NOS B - Gastric mucous membrane C - Duodenum, NOS Procedures: Immunohistochemical Stains Surgery Specimen Level IV HEADER OPERATION: EGD and biopsy PRE-OP DIAGNOSIS: Abdominal pain, pain, nausea / vomiting TISSUE SUBMITTED: A- Random esophagus biopsy, B- Gastric body biopsy, C- Duodenum biopsy MICROSCOPIC DIAGNOSIS A. Esophagus, random, biopsy: - Squamous mucosa with reactive changes, acute inflammation, and fungal organisms morphologically consistent with candidiasis. B. Gastric body, biopsy: - Oxyntic mucosa with mild chronic inflammation. - IHC negative for H. pylori organisms. C. Duodenum, biopsy: - Alen gland hyperplasia with gastric mucin cell metaplasia, suggestive of peptic injury. - Negative for increased intraepithelial lymphocytes. MICROSCOPIC DESCRIPTION Slides are reviewed. All matched controls reacted appropriately. These tests were developed and their performance characteristics determined by [facility]. They may not have been cleared or approved by the U.S. Food and Drug Administration. The FDA has determined that such clearance or approval is not necessary. The above immunohistochemical markers and/or special?stains have been reviewed by the Pathologist. GROSS DESCRIPTION A. Received in fixative is one container labeled with the patient's name and designated Random esophagus biopsy. The specimen consists of multiple irregular fragments of casillas tissue that in aggregate measure 0.6 x 0.6 x 0.1 cm. The specimen is totally submitted in one cassette. B. Received in fixative is one container labeled with the patient's name and designated Gastric body biopsy. The specimen consists of multiple irregular fragments of casillas tissue that in aggregate measure 0.7 x 0.6 x 0.1 cm. The specimen is totally submitted in one cassette. C. Received in fixative is one container labeled with the patient's name and designated Duodenum biopsy. The specimen consists of two irregular fragments of casillas tissue, each measuring 0.4 cm. The specimen is totally submitted in one cassette. RI 09/17/2025 CPT:91220i3,46368
--- NOTE | 2025-09-17 13:30 | PCM.PRE.AN2 ---
ASA Classification* ASA Classification ASA Classification: 3 Assessment & Plan Anesthesia* Anesthesia Assessment Anesthesia Assessment: Discussed sedation and/or anesthesia options, risks, benefits, and alternatives with patient/parents/legal guardian/POA. Questions invited. The patient/parents/legal guardian/POA seems to understand and agrees to proceed with anesthesia plan. Reviewed the physical assessment, medical history, allergy history and patient home medications list prior to surgery/procedure/anesthetic and documented any changes. Performed airway and anesthesia risk assessments. Anesthesia Type Anesthesia Type: MAC Anesthesia Focused Assessment* Temperature: 97.6 F Pulse Rate: 74 Blood Pressure: 154/92 Respiratory Rate: 20 Pulse Ox: 98 Airway Assessment Mouth opens: >3 cm Mallampati Score: II Labs Anesthesia Preop lab: CBC WBC, (4.4-11.0) 11.1 K/mm3 H 06/17/25, 11:18 RBC, (4.6-6.2) 4.76 M/mm3 06/17/25, 11:18 Hgb, (13.0-16.5) 13.7 g/dL 06/17/25, 11:18 Hct, (40-54) 39.4 % L 06/17/25, 11:18 Plt Count, (150-450) 384 K/mm3 06/17/25, 11:18 CHEMISTRY Potassium, (3.3-5.1) 4.2 mmol/L 08/04/25, 15:05 Sodium, (133-145) 128 mmol/L L 08/04/25, 15:05 Magnesium, (1.5-2.2) 1.9 mg/dL 05/04/25, 04:35 Phosphorus, (2.7-4.5) 3.9 mg/dL 05/04/25, 04:35 BUN, (4-19) 9 mg/dL 08/04/25, 15:05 Creatinine, (0.70-1.20) 0.80 mg/dL 08/04/25, 15:05 Glucose, (70-99) 96 mg/dL 08/04/25, 15:05 TSH, (0.300-4.200) 1.670 uIU/mL 07/17/25, 12:00 COAG Pre-Assessment Diagnosis/Proposed Procedure Planned Operative Procedure(s): EGD Anesthesia History 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 When Was Last Pacemaker Check QUESTION #4 FULL TEXT: You/Your Family Experience fever (hyperthermia) with Anesthesia Last Oral Intake Last Oral intake: Last Oral Intake NPO since 05:00 09/17/25 12:52 Meds taken in AM with sips of Yes 09/17/25 12:52 water? Meds patient instructed to AMLODIPINE 09/17/25 12:52 take am of surgery PONV PONV - railroad car cleaning supervisor: PONV - railroad car cleaning supervisor Female No 09/15/25 13:45 HX of Motion Sickness No 09/15/25 13:45 HX of N/V After Surgery No 09/15/25 13:45 Non-Smoker No 09/15/25 13:45 Duration of Surgery greater No 09/15/25 13:45 than 60 minutes Number of Risk Factors PONV Score Height & Weight Height & Weight: Anesthesia: Height & Weight Height 5 ft 7 in 09/17/25 12:52 Weight: 132 kg 09/17/25 12:52 Body Mass Index (BMI) 45.6 09/17/25 12:52 Respiratory Assessment Respiratory Assessment - railroad car cleaning supervisor: Respiratory Tract Infection Hx - railroad car cleaning supervisor Hx Respiratory Tract Infection No 09/15/25 13:45 STOP Sleep Apnea STOP Sleep Apnea - railroad car cleaning supervisor: STOP Sleep Apnea - railroad car cleaning supervisor Hx Hypertension Yes: STILL WORKING ON, 09/15/25 13:45 IMPROVING BUT NOT NORMAL Hx Sleep Apnea No 09/15/25 13:45 CPAP No 05/03/25 19:20 BIPAP No 05/03/25 19:20 Do you snore loudly (louder No 09/15/25 13:45 than talking or can be heard Do you often feel tired/ No 09/15/25 13:45 fatigued/ sleepy during daytime? Has anyone observed you stop No 09/15/25 13:45 breathing during sleep? STOP Results Negative 09/15/25 13:45 QUESTION #5 FULL TEXT : Do you snore loudly (louder than talking or can be heard through closed doors)? 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 car cleaning supervisor: Tobacco Use History - railroad car cleaning supervisor Tobacco Use Smoking Status Current every day smoker 09/15/25 13:45 Hx Tobacco Use Yes 09/15/25 13:45 Years Smoking Packs Smoked per Day Smoking Cessation Date was within the last 15 years Hx Smoking Cessation Date Hx Smoking Cessation Counseling Hematologic Medial History Hematologic Hx - railroad car cleaning supervisor: Hematologic Medical Hx - cloth doffer Hx of Blood Transfusion No 09/15/25 13:45 Hx of Transfusion in last 3 No 09/15/25 13:45 Months Date of Last Transfusion (if within last 3 months) Ever experience any problems No 09/15/25 13:45 with transfusion(s)? Specify any problems Hx of Preganancy in last 3 N/A 09/15/25 13:45 Months Nurse Filling Out Transfusion NBUCHER 09/15/25 13:45 & Questions: Date: 09/15/25 09/15/25 13:45 Time: 13:46 09/15/25 13:45 Patient unable to answer at this time (ie. confused, unrespo /Reproduction History /Reproductive History - railroad car cleaning supervisor: /Reproductive Hx- railroad car cleaning supervisor Hx Now No 09/15/25 13:45 Gestational Age (in weeks): EDC: Hx Hx Para Hx Section SAB No 09/15/25 13:45 Active Medications Active Medications: Current Medications Generic Name Dose Route Start Last Admin Trade Name Freq PRN Reason Stop Dose Admin Lactated Ringer's 1,000 mls @ 15 mls/hr 09/17/25 12:30 09/17/25 12:55 IV 15 mls/hr .Q48H BANDAR Administration PFSH Medical History Emphysema, unspecified Wears glasses Loose, teeth Ambulates with cane High cholesterol Heartburn Gastric reflux Chronic cough Chest pain History of CVA (cerebrovascular accident) Back pain Arthritis Essential (primary) hypertension Osteoarthritis of knees, bilateral Tobacco use disorder, continuous Encounter for screening for malignant neoplasm of lung Constipation Chronic pain Smoker Migraines TIA (transient ischemic attack) HTN (hypertension) Morbid obesity Home Medications ?Medication ?Instructions ?Recorded ?Last Taken ?Type losartan 100 mg tablet 100 mg PO DAILY #30 tabs 05/05/25 Unknown Rx amlodipine 10 mg tablet 10 mg PO DAILY 06/23/25 09/17/25 05:00 History bisacodyl 5 mg tablet,delayed 5 mg PO QDAY PRN constipation 07/16/25 Unknown History release (Dulcolax (bisacodyl)) docusate sodium 100 mg capsule 200 mg PO QDAY 07/16/25 Unknown History (Stool Softener) linaclotide 290 mcg capsule 290 mcg PO QAM #90 caps 08/11/25 Unknown Rx (Linzess) metoclopramide HCl 5 mg tablet 5 mg PO QAC #30 tabs 08/11/25 Unknown Rx (Reglan) pantoprazole 40 mg tablet,delayed 40 mg PO QDAY #90 tabs 08/11/25 Unknown Rx release Allergy/AdvReac Type Severity Reaction Status Date / Time No Known Allergies Allergy Verified 09/17/25 12:51 Surgical History History of right knee joint replacement Social History Smoking Status: Current every day smoker Tobacco: How many years used: 30 alcohol intake: never substance use type: other details: magic mushrooms for pain Review of Systems (Anesthesia) ROS Narrative System reviewed and no additional complaints, except as documented.
[2025-09-17 13:31] VITALS: BP 154/92; PULSE 74; RESP 20; TEMP 36.4; O2SAT 98
[2025-09-17 13:55] VITALS: BP 154/90; BP 154/92; PULSE 74; RESP 16; TEMP 36.2; O2SAT 97
--- NOTE | 2025-09-17 13:59 | PCM.POST.ANE ---
Anesthesia: Postop Eval I Current Vital Signs Temperature: 97.2 F Pulse Rate: 76 Blood Pressure: 154/90 Respiratory Rate: 16 Pulse Ox: 98 Oxygen Delivery Method: Room Air Assessment Airway patent: Yes Spontaneous unlabored respirations: Yes Mental status: Asleep nausea: No Vomiting: No Anesthesia Complication: No Fluid Hydration Crystalloid volume administer (ml): 400 Total IV fluid infused: 400 Progress Note Anesthesia document: Postop Eval 1 completed: Yes
[2025-09-17 14:00] VITALS: BP 154/90; BP 154/92; BP 157/95; PULSE 68; PULSE 76; RESP 16; TEMP 36.2; O2SAT 100; O2SAT 98
[2025-09-17 14:05] VITALS: BP 154/92; BP 162/92; PULSE 67; RESP 16; TEMP 36.2; O2SAT 99
--- NOTE | 2025-09-17 14:07 | OP.EGD_ITS ---
Patient Name: Solitario Fulton Procedure Date: 09/17/2025 1:32 PM Date of : 1970 Age: 55 Procedure: Upper GI endoscopy Indications: Epigastric abdominal pain Providers: Tito Morris DO Referring MD: Chad Taveras Medicines: Monitored Anesthesia Care Patient Profile: This is a 55 year old male. Refer to note in patient chart for documentation of history and physical. Patient has symptoms of acute epigastric abdominal pain, dysphagia with both liquids and solids, acute nausea and acute vomiting. Complications: No immediate complications. Procedure: Pre-Anesthesia Assessment: - Prior to the procedure, a History and Physical was performed, and patient medications and allergies were reviewed. The patient is competent. The risks and benefits of the procedure and the sedation options and risks were discussed with the patient. All questions were answered and informed consent was obtained. Patient identification and proposed procedure were verified by the physician in the pre-procedure area. Mental Status Examination: alert and oriented. Airway Examination: normal oropharyngeal airway and neck mobility. Respiratory Examination: clear to auscultation. CV Examination: normal. Prophylactic Antibiotics: The patient does not require prophylactic antibiotics. Prior Anticoagulants: The patient has taken no anticoagulant or antiplatelet agents except for NSAID medication. ASA Grade Assessment: II - A patient with mild systemic disease. After reviewing the risks and benefits, the patient was deemed in satisfactory condition to undergo the procedure. The anesthesia plan was to use monitored anesthesia care (MAC). Immediately prior to administration of medications, the patient was re-assessed for adequacy to receive sedatives. The heart rate, respiratory rate, oxygen saturations, blood pressure, adequacy of pulmonary ventilation, and response to care were monitored throughout the procedure. The physical status of the patient was re-assessed after the procedure. After obtaining informed consent, the endoscope was passed under direct vision. Throughout the procedure, the patient's blood pressure, pulse, and oxygen saturations were monitored continuously. The Endoscope was introduced through the mouth, and advanced to the fourth part of the duodenum. Small bowel enteroscopy was deemed necessary. The upper GI endoscopy was accomplished without difficulty. The patient tolerated the procedure well. Scope In: 1:45:02 PM Scope Out: 1:50:44 PM Total Procedure Duration Time 0 hours 5 minutes 42 seconds Findings: Diffuse, yellow plaques were found in the entire esophagus. Biopsies were taken with a cold forceps for histology. Verification of patient identification for the specimen was done. Estimated blood loss was minimal. Suspect gastroparesis due to absence of peristalsis, patient symptoms and retained gastric contents. Diffuse severe inflammation characterized by congestion (edema), erosions and erythema was found in the entire examined stomach. Biopsies were taken with a cold forceps for histology. Verification of patient identification for the specimen was done. Estimated blood loss was minimal. Biopsies were taken with a cold forceps for Helicobacter pylori testing. Verification of patient identification for the specimen was done. Estimated blood loss was minimal. Patchy severe inflammation characterized by erosions, erythema and friability was found in the entire duodenum. Biopsies were taken with a cold forceps for histology. Verification of patient identification for the specimen was done. Estimated blood loss was minimal. Impression: - Esophageal plaques were found, consistent with candidiasis. Biopsied. - Gastroparesis. - Chronic gastritis. Biopsied. - Chronic duodenitis. Biopsied. Recommendation: - Discharge patient to home. - Resume previous diet. - Continue present medications. - Await pathology results. - Fluconazole 200 mg once a day x 14 days - Nystatin swish and swallow 3 times a day x 10 days - Gastric emptying study - Hemoglobin A1c Procedure Code(s): --- Professional --- 29510, Small intestinal endoscopy, enteroscopy beyond second portion of duodenum, not including ileum; with biopsy, single or multiple CPT copyright 2021 [employer]. All rights reserved. The codes documented in this report are preliminary and upon biofuels manager review may be revised to meet current compliance requirements. Tito Morris DO 09/17/2025 2:06:55 PM This report has been signed electronically. Number of Addenda: 0 Note Initiated On: 09/17/2025 1:32 PM
--- NOTE | 2025-09-17 14:07 | OP.PROVAT_ITS ---
09/17/2025 Chad Taveras Re : Upper GI endoscopy procedure for Solitario Fulton Maryr Crispin This procedure was performed on Wednesday, September 17, 2025. My impressions and recommendations are as follows: Impressions : - Esophageal plaques were found, consistent with candidiasis. Biopsied. - Gastroparesis. - Chronic gastritis. Biopsied. - Chronic duodenitis. Biopsied. Recommendations : - Discharge patient to home. - Resume previous diet. - Continue present medications. - Await pathology results. - Fluconazole 200 mg once a day x 14 days - Nystatin swish and swallow 3 times a day x 10 days - Gastric emptying study - Hemoglobin A1c My findings are described in the full procedure note, which is enclosed. If I can be of further assistance, please feel free to contact me at . Sincerely, Tito Morris, 09/17/2025 2:06:55 PM This report has been signed electronically.
--- NOTE | 2025-09-17 14:22 | PCM.POSTANE2 ---
Anesthesia Postop Eval I Sum Postop Eval Completion status Anesthesia document: Postop Eval 1 completed: Yes Anesthesia Postop Eval I Summary Anesthesia Postop Eval I Summary: Anesthesia Postop Eval I: Assessment Summary Airway patent Yes 09/17/25 14:00 [email or web address] Spontaneous unlabored Yes 09/17/25 14:00 [email or web address] respirations Mental status Asleep 09/17/25 14:00 [email or web address] nausea No 09/17/25 14:00 [email or web address] Vomiting No 09/17/25 14:00 [email or web address] Anesthesia Postop Eval I: Fluid Summary Crystalloid volume administer 400 09/17/25 14:00 [email or web address] (ml) Colloids volume administered ( ml) Blood Product volume administered (ml) Total IV fluid infused 400 09/17/25 14:00 [email or web address] Anesthesia Postop Eval I: Summary Notes Anesthesia Complication No 09/17/25 14:00 [email or web address] Anesthesia Complication Comment: Post-operative progress note Anesthesia: Postop Eval II Evaluation Mental status: Awake Pain Level: 0 nausea: No Vomiting: No
[2025-09-17 14:40] VITALS: BP 154/92
== END 2025-09-17 14:50 | disposition home or self-care (01) ==
LOC: EN 12:25 → AC 12:26
PROVIDERS: PCP Nurse Practitioner Family; Referring Provider Nurse Practitioner Family; Visit Provider Internal Medicine Gastroenterology
PROC: 0DJ08ZZ Inspection of Upper Intestinal Tract, Via Natural or Artificial Opening Endoscopic (ICD-10-PCS; CPT 43235; principal; 2025-09-17 13:25)
DX: E87.1 Hypo-osmolality and hyponatremia (principal); K29.50 Unspecified chronic gastritis without bleeding; I10 Essential (primary) hypertension; K29.80 Duodenitis without bleeding; E78.00 Pure hypercholesterolemia, unspecified; K31.84 Gastroparesis; Z86.73 Personal history of transient ischemic attack (TIA), and cerebral infarction without residual deficits; Z79.899 Other long term (current) drug therapy; Z96.651 Presence of right artificial knee joint; F17.200 Nicotine dependence, unspecified, uncomplicated; R10.9 Unspecified abdominal pain; R11.0 Nausea; K22.89 Other specified disease of esophagus; K20.90 Esophagitis, unspecified without bleeding; B37.9 Candidiasis, unspecified; K31.89 Other diseases of stomach and duodenum; K31.A19 Gastric intestinal metaplasia without dysplasia, unspecified site
CPT/HCPCS: 44361; 88305; 88342; J2405

== ENCOUNTER → 2025-09-23 | Outpatient (CLI) | payer MEDICARE, MEDICAID, SELFPAY ==
[2025-09-23 09:55] LABS: Hematocrit 37.4 % (40-54); Hemoglobin 13.6 g/dL (13.0-16.5); Immature Granulocytes Count 0.040 X10^3/uL (0.0-0.0); Mean Corp Hgb Conc 36.4 g/dL (32-36); Mean Corpuscular Volume 79.9 fL (80-94); Mean Platelet Vol. 9.0 fl (6.2-12.0); NRBC Flagged by Analyzer 0 % (0-5); Platelet Count 331 K/mm3 (150-450); RBC Distribution Width CV 12.6 % (11.6-14.6); RBC Distribution Width SD 35.8 fl (35.1-43.9); Red Blood Count 4.68 M/mm3 (4.6-6.2); White Blood Count 8.0 K/mm3 (4.4-11.0)
[2025-09-23 10:42] LABS: AST(SGOT) 26 U/L (<=37); Alanine Aminotransfer ALT/SGPT 10 U/L (<=46); Albumin, Serum 4.2 g/dL (3.5-5.0); Alkaline Phosphatase 61 U/L (40-129); Anion Gap 13 (5-15); BUN 5 mg/dL (4-19); BUN/Creat Ratio 6.9 RATIO (10-20); Calcium,Total 9.4 mg/dL (7.6-11.0); Carbon Dioxide 26.9 mmol/L (21.0-32.0); Chloride 88 mmol/L (98-108); Globulin 3.2 g/dL (2.2-4.2); Glucose 92 mg/dL (70-99); Potassium 3.2 mmol/L (3.3-5.1)
== END | disposition home or self-care (01) ==
PROVIDERS: PCP Nurse Practitioner Family; Referring Provider Student in an Organized Health Care Education/Training Program; Visit Provider Student in an Organized Health Care Education/Training Program
DX: R11.0 Nausea (principal); R10.9 Unspecified abdominal pain; E87.1 Hypo-osmolality and hyponatremia
CPT/HCPCS: 36415; 80053; 85025

== ENCOUNTER → 2025-10-21 | Outpatient (CLI) | payer MEDICARE, SELFPAY ==
--- NOTE | 2025-10-21 09:58 | NM_ITS ---
PROCEDURE: GASTRIC EMPTYING STUDY 10/21/2025 REASON FOR EXAM: NAUSEA, ABDOMINAL COMPARISON: None. TECHNIQUE: Procedure Code: NMGES Modality: NM Procedure: GASTRIC EMPTYING STUDY The patient ingested a standard semi-solid meal of oatmeal. There was no vomiting postprandially. Anterior and posterior planar images of the upper abdomen were obtained for a total of 60 minutes. Regions of interest were drawn, and a geometric mean was used to calculate a [id number]. RADIOPHARMACEUTICAL: Oral administration of 1.1 mCi technetium 99 M sulfur colloid within the oatmeal. FINDINGS: During the time of imaging, gastroesophageal reflux was not seen. Linear fit gastric emptying half-time of 60.76 minutes. Gastric emptying at 17.5 minutes of 7%, at 29.5 minutes of 15%, at 47.5 minutes of 30%, and at 59.5 minutes of 58%. NM/Gastric Emptying Study IMPRESSION: Normal gastric emptying. Reading Location: [id number]
== END | disposition home or self-care (01) ==
LOC: NM 09:58
PROVIDERS: PCP Nurse Practitioner Family; Referring Provider Student in an Organized Health Care Education/Training Program; Visit Provider Student in an Organized Health Care Education/Training Program
DX: R11.0 Nausea (principal); R10.9 Unspecified abdominal pain
CPT/HCPCS: 78264; A9541

== ENCOUNTER 2025-10-22 11:27 | Emergency (ER) | payer MEDICARE, MEDICAID, SELFPAY ==
[2025-10-22 11:28] VITALS: BP 156/92; PULSE 88; RESP 17; TEMP 36.8; O2SAT 97; BMI 42.9
--- NOTE | 2025-10-22 11:37 | RAD_ITS ---
PROCEDURE: CHEST 1 VIEW (PORTABLE) 10/22/2025 REASON FOR EXAM: CHEST PAIN TECHNIQUE: Frontal view of the chest. COMPARISON: Chest x-ray of 05/03/2025. RAD/Chest 1 View (Portable) IMPRESSION: Marked interval mediastinal widening is noted, concerning for mediastinal khushbu s; recommend further evaluation with CT if not recently performed. Lungs are hypoinflated, but appear clear of acute disease. No evidence of pulm onary edema. No pleural effusion or pneumothorax is noted. Given the degree of hypoinflation, no cardiomegaly is identified. Reading Location: [id number]
--- NOTE | 2025-10-22 11:37 | EKG12_ITS ---
Test Reason : general Blood Pressure : */* mmHG Vent. Rate : 76 BPM Atrial Rate : 76 BPM P-R Int : 188 ms QRS Dur : 180 ms QT Int : 462 ms P-R-T Axes : 61 -65 -7 degrees QTcB Int : 519 ms Normal sinus rhythm Possible Left atrial enlargement Right bundle branch block Left anterior fascicular block Bifascicular block Abnormal ECG Confirmed by KAROL JOHNSON ([id number]), website/blog editor TITO FRIAS ([id number]) on 10/27/2025 6:31:43 AM Referred By: Confirmed By: KAROL JOHNSON
--- NOTE | 2025-10-22 11:38 | EX.ED.DYSGE1 ---
HPI History of Present Illness Chief Complaint: Abd Pain Detail of Chief Complaint: Chest pain and shortness of breath Informant: patient Narrative Narrative: Patient presents to the emergency department complaint chest pain shortness of breath that has had for about 5 months. Patient was seeing his interior wall assembler today who referred him to the emergency department for evaluation. He describes exertional chest pain and shortness of breath. At times described as a tightness and a soreness retrosternally. He has had nausea and intermittent vomiting. Dry heaves at times. Pain does not radiate to the arm or neck or jaw. Denies recent travel or surgery. He has no heart history. No family history of heart disease. He is a smoker. [facility] Medical History Emphysema, unspecified Wears glasses Loose, teeth Ambulates with cane High cholesterol Heartburn Gastric reflux Chronic cough Chest pain History of CVA (cerebrovascular accident) Back pain Arthritis Essential (primary) hypertension Osteoarthritis of knees, bilateral Tobacco use disorder, continuous Encounter for screening for malignant neoplasm of lung Constipation Chronic pain Smoker Migraines TIA (transient ischemic attack) HTN (hypertension) Morbid obesity Home Medications Medication Instructions Recorded Last Taken Type losartan 100 mg tablet 100 mg PO DAILY #30 tabs 05/05/25 10/21/25 Rx pantoprazole 40 mg tablet,delayed 40 mg PO QDAY #90 tabs 08/11/25 10/17/25 Rx release fluconazole 200 mg tablet 200 mg PO QDAY #7 tabs 09/30/25 10/22/25 Rx amlodipine 10 mg tablet 10 mg PO DAILY 10/22/25 10/21/25 History hydrocodone-acetaminophen 5-325mg 1 tab PO Q4H PRN PRN Pain 2 days 10/22/25 Unknown Rx 5mg-325mg #14 TABLETS nystatin 100,000 unit/mL oral 5 ml PO TID 10/22/25 10/22/25 History suspension ondansetron 4 mg disintegrating 4 mg PO Q8H PRN PRN Nausea #10 tabs 10/22/25 Unknown Rx tablet Allergy/AdvReac Type Severity Reaction Status Date / Time No Known Allergies Allergy Verified 10/22/25 11:30 Family History no significant family his Surgical History History of right knee joint replacement Social History Smoking Status: Current every day smoker tobacco type: cigarettes Tobacco: How many years used: 30 alcohol intake: never substance use type: other details: magic mushrooms for pain ROS ROS ED Review of Systems ROS Unobtainable: other Constitutional Constitutional ED: Reports lethargy; Denies chills, fever(s), sweats or weight loss Eyes Eyes: Denies blurry vision, change in vision or diplopia ENT ENT ED: Denies rhinorrhea or sore throat Cardiovascular Cardiovascular: Reports chest pain; Denies orthopnea or racing heartbeat Respiratory/Chest Respiratory/Chest: Reports dyspnea and dyspnea on exertion; Denies cough, orthopnea or sputum Gastrointestinal Gastrointestinal: Reports abdominal pain, nausea and vomiting; Denies diarrhea Genitourinary Genitourinary ED: Denies dysuria, hematuria or urinary frequency Musculoskeletal Musculoskeletal: Denies arthralgias, back pain, myalgias or neck pain Integumentary Denies abscess, Abrasions or rash Neurologic Neurologic: Denies headache(s) or weakness Psychiatric Psychiatric: Denies anxiety, depression or suicidal thoughts Endocrine Endocrinology: Denies polydipsia, polyphagia or polyuria Hematologic/Lymphatic Hematologic/Lymphatic: Denies easy bleeding, easy bruising or lymphadenopathy Allergic/Immunologic Allergic/Immunologic ED: Denies mouth swelling, tongue swelling or urticaria EXAM Physical Exam Const Vital Signs: 10/22/25 11:28 10/22/25 13:19 10/22/25 13:28 Temperature 98.2 F Temperature Source Oral Pulse Rate 88 73 Respiratory Rate 17 20 H Blood Pressure 156/92 H 152/90 H Blood Pressure Mean 113 110 Pulse Ox 97 98 Oxygen Delivery Method Room Air Room Air Room Air Positive well nourished and well developed General Appearance ED: well developed and NAD HEENT Reports TM's clear and moist mucous membranes normocephalic and atraumatic; Negative for trauma or tenderness Tympanic Membrane ED: Yes TM's clear Eyes PERRL and EOMs intact bilaterally General Eye ED: Negative for pale conjunctiva or scleral icterus Neck no lymphadenopathy, supple and no JVD General: Negative for tenderness Chest Wall inspection of chest normal and palpation of chest normal Chest: Negative for tenderness Resp normal respiratory effort and clear to auscultation bilaterally Effort and Inspection: Negative for respiratory distress or pain with movement Auscultation: Negative for rhonchi, wheezes or diminished lung sounds Cardio regular rate, regular rhythm, S1 normal heart sound, S2 normal heart sound and no murmurs Peripheral Pulses: pulses 2+ throughout GI normal to inspection, nondistended, normoactive bowel sounds, soft to palpation, non-tender, non-distended and no masses Back/Spine no CVA tenderness and no thoracic nor lumbar tenderness Extremity normal to inspection General Extremety ED: Negative for edema General Extremity: Negative for edema Neuro oriented x3, CN's II-XII intact bilaterally, no sensory deficits noted and gait normal Sensorium / Orientation: awake, alert, oriented to person, oriented to place and oriented to time Motor Exam: strength 5/5 throughout and strength abnormal Psych mental status grossly normal Skin no rashes or lesions noted and no wounds MDM MDM MDM Narrative Medical decision making narrative: Patient presents with dyspnea and chest pain and shortness of breath. He has had some exertional symptoms. Intermittent nausea and vomiting. Tells me has had some issues with hyponatremia in the past. IV line established on arrival. EKG obtained showed a sinus rhythm with rate of 76 bpm with right bundle branch block and left anterior fascicular block. CBC with differential showed white count 7.2 with hemoglobin 14.1 and platelet count of 298. D-dimer elevated 1.45. Sodium was 130 with potassium 3.0. BUN was 5 and creatinine 0.83. LFTs unremarkable. Lipase normal at 32. Troponin was normal at 12. Chest x-ray 1 view obtained concerning for widened mediastinum and radiology recommended obtaining a CT scan with IV contrast to evaluate further. CTA of the chest was obtained which showed enlarged mediastinal lymph nodes with mass effect on the trachea deviating into the right. Also right adrenal mass is noted. Patient was medicated with morphine and Zofran. Will discuss case with hospitalist to evaluate for admission. Radiology concerned about possibility of lymphoma. After discussion with hospitalist it was felt by the hospitalist that patient did not require admission and the workup could be done as an outpatient. I discussed case with oncology Dr. Bernal who was in agreement that patient could be followed up as an outpatient and workup undertaken. He was given an appointment for October 28 at 10:30 AM. Patient comfortable with plan. I will write him a prescription for [place] for pain. Advised to return if increasing shortness of breath or condition should worsen anyway. Lab Data Attestation: I reviewed the patient's lab results. Labs: Laboratory Results - last 24 hr 10/22/25 11:40 WBC 7.2 RBC 5.07 Hgb 14.1 Hct 40.1 MCV 79.1 L MCH 27.8 MCHC 35.2 RDW Std Deviation 37.2 RDW Coeff of [place] 13.1 Plt Count 298 MPV 9.7 Immature Gran % (Auto) 0.600 Neut % (Auto) 64.3 Lymph % (Auto) 22.3 [place] % (Auto) 10.4 H Eos % (Auto) 1.4 Baso % (Auto) 1.0 Absolute Neuts (auto) 4.6 Absolute Lymphs (auto) 1.61 Nucleated RBC % 0 D-Dimer Quant (PE/DVT) 1.45 H* Sodium 130 L Potassium 3.0 L Chloride 88 L Carbon Dioxide 25.3 Anion Gap 16 H BUN 5 Creatinine 0.83 Estim Creat Clear Calc 125.63 Est GFR (MDRD) Non-Af 103 BUN/Creatinine Ratio 5.6 L Glucose 106 H Calcium 9.4 Total Bilirubin 0.63 Direct Bilirubin 0.24 AST 31 ALT 10 Alkaline Phosphatase 64 Troponin T High Sens 12 D Total Protein 7.8 Albumin 4.5 Globulin 3.4 Lipase 32 Radiography Diagnostic Testing: Clinical Impression(s) from Imaging Studies Chest X-Ray 10/22/25 11:37 IMPRESSION: Marked interval mediastinal widening is noted, concerning for mediastinal masses; recommend further evaluation with CT if not recently performed. Lungs are hypoinflated, but appear clear of acute disease. No evidence of pulmonary edema. No pleural effusion or pneumothorax is noted. Given the degree of hypoinflation, no cardiomegaly is identified. Reading Location: [id number] Chest CTA 10/22/25 12:43 IMPRESSION: Mediastinal masses outlined above favored to represent confluent lymph nodes. This is also shown in the sub subclavian region medially and the left axillary and prepectoral region. Consider lymphoma. Primary pulmonary malignancy favored less. The axillary lesion may be amenable to percutaneous sampling by ultrasound. Secondary mass effect upon the left main pulmonary artery. Mass effect on the bronchus with resorptive atelectasis left lower lobe. Left adrenal masses. No evidence of pulmonary embolus. Reading Location: [facility] EKG Initial EKG: Attestation: I personally reviewed and interpreted this EKG as follows: Comments: Sinus rhythm with ventricular rate of 75 bpm with right bundle branch block and left anterior fascicular block. Discharge Plan Triage Chief Complaint: Abd Pain ED Provider: Jessica Jerome Dx/Rx/DC Orders Clinical Impression: Chest pain, Lung mass Instructions: ED Chest Pain, Uncertain Cause Prescriptions: New hydrocodone-acetaminophen 5-325 mg tablet 1 tab PO Q4H PRN PRN (Reason: Pain) 2 Days Qty: 14 0RF ondansetron 4 mg tablet,disintegrating 4 mg PO Q8H PRN PRN (Reason: Nausea) Qty: 10 0RF No Action pantoprazole 40 mg tablet,delayed release (DR/EC) 40 mg PO QDAY Qty: 90 1RF Rx Instructions: take once daily every morning on an empty stomach losartan 100 mg Tablet 100 mg PO DAILY Qty: 30 0RF nystatin 100,000 unit/mL suspension 5 ml PO TID amlodipine 10 mg tablet 10 mg PO DAILY fluconazole 200 mg tablet 200 mg PO QDAY Qty: 7 0RF Primary Care Provider: Deborah Roa Referrals: Denisse Conner MD [Med Staff - Active Staff, Oncology] - 10/28/25 10:30 am Deborah Roa, [facility] [Primary Care Provider, Family Practice] Print Language: Greek Disposition Disposition: Home, Self Care
[2025-10-22] MEDS: 0.9% Normal Saline (1000mL) 1,000 ML 150 ML IV (11:47)
--- NOTE | 2025-10-22 11:55 | ED.RN ---
Pt refusing travel agency manager at this time, stating that he does not feel well when in bed. Pt ambulating in room.
[2025-10-22 12:01] LABS: Hematocrit 40.1 % (40-54); Hemoglobin 14.1 g/dL (13.0-16.5); Immature Granulocytes Count 0.040 X10^3/uL (0.0-0.0); Mean Corp Hgb Conc 35.2 g/dL (32-36); Mean Corpuscular Volume 79.1 fL (80-94); Mean Platelet Vol. 9.7 fl (6.2-12.0); NRBC Flagged by Analyzer 0 % (0-5); Platelet Count 298 K/mm3 (150-450); RBC Distribution Width CV 13.1 % (11.6-14.6); RBC Distribution Width SD 37.2 fl (35.1-43.9); Red Blood Count 5.07 M/mm3 (4.6-6.2); White Blood Count 7.2 K/mm3 (4.4-11.0)
[2025-10-22 12:23] LABS: AST(SGOT) 31 U/L (<=37); Alanine Aminotransfer ALT/SGPT 10 U/L (<=46); Albumin, Serum 4.5 g/dL (3.5-5.0); Alkaline Phosphatase 64 U/L (40-129); Anion Gap 16 (5-15); BUN 5 mg/dL (4-19); BUN/Creat Ratio 5.6 RATIO (10-20); Bilirubin, Direct 0.24 mg/dL (0.00-0.30); Calcium,Total 9.4 mg/dL (7.6-11.0); Carbon Dioxide 25.3 mmol/L (21.0-32.0); Chloride 88 mmol/L (98-108); Estimated Creatinine Clearance 125.63 ml/min (50-250); Globulin 3.4 g/dL (2.2-4.2); Glucose 106 mg/dL (70-99); Potassium 3.0 mmol/L (3.3-5.1)
[2025-10-22 12:24] LABS: Lipase 32 U/L (13-75); Troponin T High Sensitivity 12 ng/L (<=22)
--- OUTSIDE RECORDS SUMMARY | 2025-10-22 12:31 | XMS RPT_ITS | CCD ---
Author Organization [facility] Care Team Providers Care Patient Attendant Name Role Phone Dr. OSIRIS BARRETT Attending Un available Tony Altman Attending [facility] PCP, States None Referring Unavailable Dr. Allan Jc DO Emergency Provider Crispin JUMPBASTING MACHINE OPERATOR-C, Deborah Primary Care Provider Dr. Meseret Minor DO Admit Provider Dr. Meseret Minor DO Attending Provider Dr. Meseret Minor DO Other Provider Dr. Meseret Minor DO Other Provider Dr. Kevin Singh DO Attending Provider Dr. Meseret Minor DO Attending Provider Dr. Kevin Singh DO Other Provider [phone] [facility] Care Physician, No Primary Referring Provider Un available Dr. Betty Steel MD Attending Provider [phone] Crispin JUMPBASTING MACHINE OPERATOR-C, Deborah Attending Provider Crispin JUMPBASTING MACHINE OPERATOR-C, Deborah Referring Provider Jorgito JUMPBASTING MACHINE OPERATOR-C, Anay Attending Provider Jorgito JUMPBASTING MACHINE OPERATOR-C, Anay Referring Provider Dr. Juan Rush DO Emergency Provider Dr. Juan Rush DO Attending Provider Jadon JUMPBASTING MACHINE OPERATOR-C, Elizabet Attending Provider Jadon JUMPBASTING MACHINE OPERATOR-C, Elizabet Referring Provider Jorgito JUMPBASTING MACHINE OPERATOR-C, Anay Referring Provider Crispin JUMPBASTING MACHINE OPERATOR-C, Deborah Referring Provider [phone] Allan Jc DO Emergency Department Physic stephen Crispin JUMPBASTING MACHINE OPERATOR-C, Deborah Primary Care Physician Iván BRYANT, Dr. Carl Admitting Physician Iván BRYANT, Dr. Carl Nurse Practitioner Samantha BRYANT, Dr. Brown Attending Physician Iván BRYANT, Dr. Carl Attending Physician Samantha BRYANT, Dr. Brown Nurse Practitioner Milvia GALLOWAY, Dr. Hernández Attending Physician Crispin JUMPBASTING MACHINE OPERATOR-C, Deborah Attending Physician Jorgito JUMPBASTING MACHINE OPERATOR-C, Anay Attending Physician Dr. Juan Rush DO Attending Physician Dr. Juan Rush DO Emergency Department Physician Jadon JUMPBASTING MACHINE OPERATOR-C, Elizabet Attending Physician Debbie Sinha Attending Physician Crispin, Deborah Primary Care Unavailable Crispin, Deborah Referring Unavailable Elizabet Diop Attending Unavailable Crispin, Deborah Primary Care Unavailable Crispin, Deborah Referring Unavailable Debbie Garcia Attending Unavailable Crispin, Deborah Referring Unavailable Elizabet Diop Attending Unavailable Crispin, Deborah Primary Care Unavailable Crispin, Deborah Primary Care Unavailable Debbie Garcia Attending Unavailable Crispin, Deborah Referring Unavailable Betty Steel Attending Unavailable Crispin, Deborah Primary Care Unavailable Crispin, Deborah Primary Care Unavailable Crispin, Deborah Attending Unavailable Crispin, Deborah Primary Care Unavailable Elizabet Diop Referring Unavailable Elizabet Diop Attending Unavailable Elizabet Diop Attending Unavailable Crispin, Deborah Primary Care Unavailable Elizabet Diop Referring Unavailable Crispin, Deborah Primary Care Unavailable Juan Rush Attending Unavailable Crispin, Deborah Primary Care Unavailable AtaDebbie lennon Referring Unavailable Debbie Garcia Attending Unavailable Care Physician, No Primary Referring Unava ilable Betty Steel Attending Unavailable Crispin, Deborah Primary Care Unavailable Crispin, Deborah Primary Care Unavailable Crispin, Deborah Referring Unavailable FriendTito Attending Unavailable FriendJoaquinTito Consulting Unavailable Crispin, Deborah Primary Care Unavailable Iván, Meseret Admitting Unavailable Iván, Meseret Attending Unavailable Iván, Meseret Consulting Unavailable Jopperi, Kevin Attending Unavailable Jopperi, Kevin Consulting Unavailable Crispin, Deborah Attending Unavailable Crispin, Deborah Primary Care Unavailable Crispin, Deborah Attending Unavailable Crispin, Deborah Primary Care Unavailable Crispin, Deborah Primary Care Unavailable Jorgito JUMPBASTING MACHINE OPERATOR, Anay Referring Unavailable Jorgito JUMPBASTING MACHINE OPERATOR, Anay Attending Unavailable Crispin, Deborah Attending Unavailable Crispin, Deborah Referring Unavailable Crispin, Deborah Primary Care Unavailable Crispin, Deborah Primary Care Unavailable Jopperi, Kevin Attending Unavailable Iván, Meseret Admitting Unavailable Iván, Meseret Consulting Unavailable Crispin, Deborah Primary Care Unavailable Crispin, Deborah Referring Unavailable FriendTito Attending Unavailable Crispin, Deborah Referring Unavailable Crispin, Deborah Primary Care Unavailable Crispin, Deborah Attending Unavailable Crispin, Deborah Primary Care Unavailable Jorgito JUMPBASTING MACHINE OPERATOR, Anay Referring Unavailable Jorgito JUMPBASTING MACHINE OPERATOR, Anay Attending Unavailable Crispin JUMPBASTING MACHINE OPERATOR-C, Deborah Primary Care Physician Jorgito JUMPBASTING MACHINE OPERATOR-C, Anay Attending Physician [phone] Jorgito JUMPBASTING MACHINE OPERATOR-C, Anay Referring Provider Crispin JUMPBASTING MACHINE OPERATOR-C, Deborah Attending Physician Crispin JUMPBASTING MACHINE OPERATOR-C, Deborah Referring Provider Dr. Juan Rush DO Attending Physician [phone] Juan Rush DO Emergency Department Physician Jadon DIAZ-Elizabet Matute Attending Physician Jadon JUMPBASTING MACHINE OPERATOR-CElizabet Referring Provider Debbie Sinha Attending Physician [phone] Tito BRYANT Attending Physician [phone] Tito BRYANT Nurse Practitioner Debbie Sinha Referring Provider [phone] Medications Current Medications Medication Drug Class(es) Dates Sig (Normalized) Sig (Original) amLODIPine 10 mg oral tablet (20 sources) Dihydropyridine Calcium Channel Gary Start: 06-23-2025 take 1 tablet by mouth once daily Start: 05-12-2025 End: 06-23-2025 take 1 tablet by mouth once daily Amlodipine 5 mg tablet Discontinued 5 mg PO daily May 11, 2025 11:00pm June 23, 2025 4:38pm bisacodyl 5 mg delayed release oral tablet (7 sources) Stimulant Laxative Start: 07-16-2025 take 1 tablet by shira once daily as needed for constipation docusate sodium 100 mg oral capsule (7 sources) Start: 07-16-2025 Start: 07-16-2025 take 1 capsule by mo [facility] once daily Docusate Sodium (Stool Softener) 100 mg capsule Active 100 mg PO daily July 16, 2025 12:00am Complies with drug therapy fluconazole 200 mg oral tablet (2 sources) Azole Antifungal Start: 09-30-2025 take 1 tablet by mouth once daily Start: 09-17-2025 End: 09-30-2025 take 1 tablet by mouth once daily Fluconazole 200 mg tablet Discontinued 200 mg PO daily 14 September 16, 2025 11:00pm September 30, 2025 9:37am linaclotide 0.29 mg oral capsule (4 sources) Guanylate Cyclase-C Agonist Start: 08-11-2025 take 1 capsule by mouth once daily in the morning losartan potassium 100 mg oral tablet (20 sources) Angiotensin 2 Receptor Gary Start: 05-05-2025 take 1 tablet by mouth once daily Start: 05-03-2025 End: 05-05-2025 take 1 tablet by mouth once daily Losartan 25 mg tablet Discontinued 25 mg PO DAILY May 02, 2025 11:00pm May 05, 2025 9:08am metoclopramide 5 mg oral tablet (4 sources) Dopamine-2 Receptor Antagonist Start: 08-11-2025 take 1 tablet by mouth 30 minutes before mealtime nystatin 751946 unt/ml oral suspension (2 sources) Polyene Antifungal Start: 09-17-2025 End: 10-07-2025 Nystatin 100,000 unit/mL suspension Discontinued 1 mL BUCCAL THREE TIMES A DAY 21 7 0 September 30, 2025 9:36am October 06, 2025 12:00am October 07, 2025 12:07am administer 1/2 of dose in each side of the mouth pantoprazole 40 mg delayed release oral tablet (5 sources) Proton Pump Inhibitor Start: 09-23-2025 take 1 tablet by mouth once daily Start: 08-11-2025 take 1 tablet by mouth once da manuel in the morning Completed/Discontinued Medications Medication Drug Class(es) Dates Sig (Normalized) Sig (Original) ondansetron 4 mg disintegrating oral tablet (8 sources) Serotonin-3 Receptor Antagonist Start: 06-23-2025 End: 09-15-2025 take 1 tablet by mouth every eight hours as needed for nausea Ondansetron 4 mg tablet,disintegrat ing Discontinued 4 mg PO EVERY 8 HOURS NEEDED as needed for Nausea 10 0 June 22, 2025 11:00pm September 15, 2025 12:43pm polyethylene glycol 3350 93504 mg powder for oral solution (7 sources) Osmotic Laxative Start: 07-16-2025 End: 07-21-2025 Polyethylene Glycol 3350 (Miralax) 17 gram/dose powder Discontinued 4 g PO daily as needed July 15, 2025 11:00pm July 21, 2025 7:08am Problems Active Problems Problem Classification Problem Date Documented Da te Episodic/Chronic Abdominal pain (12 sources) Abdominal pain; Translations: [Unspecified abdominal pain] Onset: 08-26-2025 08-11-2025 Episodic Essential hypertension (16 sources) Hypertensive disorder; Translations: [Essential (primary) hypertension] 05-03-2025 Chronic Fluid and electrolyte disorders (20 sources) Hypokalemia; Translations: [Acute hyponatremia] Onset: 11-15-2022 05-03-2025 Episodic Genitourinary symptoms and ill-defined conditions (2 sources) Unspecified abnormal findings in urine; Translations: [Unspecified abnormal findings in urine] Onset: 11-15-2022 Episodic Headache; including migraine (14 sources) Generalized headache; Translations: [Generalized headache] 07-16-2025 Episodic Headache; including migraine (1 source) Headache; including migraine; Translations: [Headache, unspecified] Onset: 07-17-2025 Hypertension with complications and secondary hypertension (20 sources) Hypertensive urgency ; Translations: [Hypertensive urgency] Onset: 05-05-2025 05-03-2025 Chronic Influenza (2 sources) Influenza due to other identified influenza virus with other respiratory manifestations; Translations: [Influenza due to other identified influenza virus with other manifestations] Onset: 11-15-2022 Episodic Mood disorders (7 sources) Major depressive disorder; Translations: [Major depressive disorder, single episode, unspecified] 07-16-2025 Chronic Nausea and vomiting (10 sources) Nausea; Translations: [Nausea] Onset: 10-02-2025 08-11-2025 Episodic Other connective tissue disease (18 sources) Pain in left arm; Translations: [Pain in left arm] 09-28-2022 Episodic Other gastrointestinal disorders (20 sources) Constipation; Translations: [Constipation, unspecified] 05-12-2025 Episodic [...] conditions (not mental disorders or infectious disease) (20 sources) Patient encounter status; Translations: [Encounter for screening for malignant neoplasm of colon] Onset: 07-21-2025 05-14-2025 Episodic Residual codes; unclassified (1 source) Obstructive sleep apnea (adult) (pediatric); Translations: [Obstructive sleep apnea (adult) (pediatric)] Onset: 05-20-2025 Chronic Schizophrenia and other psychotic disorders (16 sources) Paranoid disorder; Translations: [Delusional disorders] 02-12-2024 Chronic Screening and history of mental health and substance abuse codes (1 source) Personal history of nicotine dependence; Translations: [Personal history of nicotine dependence] Onset: 07-21-2025 Episodic Substance-related disorders (20 sources) Nicotine dependence, unspecified, uncomplicated; Translations: [Other psychoactive substance abuse, uncomplicated] Onset: 11-15-2022 02-12-2024 Chronic Unclassified (1 source) Contact with and (suspected) exposure to COVID-19; Translations: [Contact with and (suspected) exposure to COVID-19] Onset: 11-15-2022 Unclassified (1 source) Cough, unspecified; Translations: [Cough, unspecified] Onset: 11-15-2022 Past or Other Problems Problem Classification Problem Date Documented Da te Episodic/Chronic Diabetes mellitus without complication (20 sources) Hyperglycemia; Translations: [Hyperglycemia, unspecified] Onset: 05-05-2025 05-03-2025 Episodic Other gastrointestinal disorders (1 source) Constipation, unspecified; Translations: [Constipation, unspecified] Onset: 06-30-2025 Episodic Results Test Name Value Interpretation Reference Range Facility Surgical pathology reportOrd ered By: Adrianne Bey on 09-30-2025 Surgical pathology study [facility] Absolute lymphocyte countOrd ered By: Debbie Garcia on 09-23-2025 Lymphocytes Auto (Unsp spec) [#/Vol] 1.85 10*3/uL 0.83-4.51 [facility] Absolute neutrophil countOrd ered By: Debbie Garcia on 09-23-2025 Neutrophils (Bld) [#/Vol] 5.0 10*3/uL 2.0-7.7 [facility] Anion gap in Serum or Plasma Ordered By: Debbie Garcia on 09-23-2025 Anion gap [Moles/Vol] 13 mmol/L 5- [facility] Automated lymphocyte count a s percentage of total leukocytesOrdered By: Debbie Garcia on 09-23-2025 Lymphocytes/100 WBC Auto (Unsp spec) 23.2 % - [facility] BUN/creatinine ratioOrdered By: Debbie Garcia on 09-23-2025 Urea nitrogen/Creatinine [Mass ratio] 6.9 mg/mg Low - [facility] Basophil percentageOrdered B y: Debbie Garcia on 09-23-2025 Basophils/100 WBC (Bld) 0.9 % 0-1 [facility] Bilirubin, totalOrdered By: Debbie Garcia on 09-23-2025 Bilirubin [Mass/Vol] 0.46 mg/dL 0.00-1.30 [facility] CBC W/Diff, Automatedon 08-28 Absolute Lymph 1.85 X10 3/uL Normal 0.83-4.51 [facility] Comment on above: Performed By: #### L 500.2500, L501.4021, L100.0100 #### [facility] [address] [place], [address] Absolute Neut 5.0 X10 3/uL Normal 2.0-7.7 [facility] Comment on above: Performed By: #### L 500.2500, L501.4021, L100.0100 #### [facility] [address] [place], [address] Basophils/100 WBC (Bld) 0.9 % Normal 0-1 [facility] Comment on above: Performed By: #### L 500.2500, L501.4021, L100.0100 #### [facility] [address] [place], [address] Eosinophils/100 WBC (Bld) 1.3 % Normal 0-5 [facility] Comment on above: Performed By: #### L 500.2500, L501.4021, L100.0100 #### [facility] [address] [place], [address] Erythrocyte distribution width (RBC) [Ratio] 12.6 % Normal 11.6-14.6 [facility] Comment on above: Performed By: #### L 500.2500, L501.4021, L100.0100 #### [facility] [address] [place], [address] Hematocrit (Bld) [Volume fraction] 37.4 % Low 40-54 [facility] Comment on above: Performed By: #### L 500.2500, L501.4021, L100.0100 #### [facility] [address] [place], [address] Hemoglobin (Bld) [Mass/Vol] 13.6 g/dL Normal 13.0-16.5 [facility] Comment on above: Performed By: #### L 500.2500, L501.4021, L100.0100 #### [facility] [address] [place], [address] IG% 0.500 Normal 0.0-0.9 [facility] Comment on above: Result Comment: IG% - Immature Granulocytes (promyelocytes, myelocytes and metamyelocytes) > 1% indicates that a LEFT SHIFT is Present. Performed By: #### L 500.2500, L501.4021, L100.0100 #### [facility] [address] [place], [address] Lymphocytes/100 WBC (Bld) 23.2 % Normal 19-41 [facility] Comment on above: Performed By: #### L 500.2500, L501.4021, L100.0100 #### [facility] [address] [place], [address] MCH (RBC) [Entitic mass] 29.1 pg Normal 27.0-32.0 [facility] Comment on above: Performed By: #### L 500.2500, L501.4021, L100.0100 #### [facility] [address] [place], [address] MCHC (RBC) [Mass/Vol] 36.4 g/dL High 32-36 [facility] Comment on above: Performed By: #### L 500.2500, L501.4021, L100.0100 #### [facility] [address] [place], [address] MCV (RBC) [Entitic vol] 79.9 fL Low 80-94 [facility] Comment on above: Performed By: #### L 500.2500, L501.4021, L100.0100 #### [facility] [address] [place], [address] Monocytes/100 WBC (Bld) 11.4 % High 0-10 [facility] Comment on above: Performed By: #### L 500.2500, L501.4021, L100.0100 #### [facility] [address] [place], [address] Neutrophils/100 WBC (Bld) 62.7 % Normal 47-70 [facility] Comment on above: Performed By: #### L 500.2500, L501.4021, L100.0100 #### [facility] [address] [place], [address] Nucleated RBC (Bld) [#/Vol] 0 10*3/uL Normal 0-5 [facility] Comment on above: Performed By: #### L 500.2500, L501.4021, L100.0100 #### [facility] [address] [place], [address] Platelet mean volume (Bld) [Entitic vol] 9.0 fL Normal 6.2-12.0 [facility] Comment on above: Performed By: #### L 500.2500, L501.4021, L100.0100 #### [facility] [address] [place], [address] Platelets (Bld) [#/Vol] 331 10*3/uL Normal 150-450 [facility] Comment on above: Performed By: #### L 500.2500, L501.4021, L100.0100 #### [facility] [address] [place], [address] RBC (Bld) [#/Vol] 4.68 10*6/uL Normal 4.6-6.2 [facility] Comment on above: Performed By: #### L 500.2500, L501.4021, L100.0100 #### [facility] [address] [place], [address] RDW SD 35.8 fl Normal 35.1-43.9 [facility] Comment on above: Performed By: #### L 500.2500, L501.4021, L100.0100 #### [facility] [address] [place], [address] WBC (Bld) [#/Vol] 8.0 10*3/uL Normal 4.4-11.0 [facility] Comment on above: Performed By: #### L 500.2500, L501.4021, L100.0100 #### [facility] [address] [place], [address] Carbon dioxide, total [Moles /volume] in Central venous bloodOrdered By: Debbie Garcia on 09-23-2025 CO2 [Moles/Vol] 26.9 mmol/L 21.0-32.0 [facility] Chloride assayOrdered By: Francisca Garcia on 09-23-2025 Chloride [Moles/Vol] 88 mmol/L Low 98-108 [facility] Comprehensive Metabolic Prof ilon 09-23-2025 Albumin [Mass/Vol] 4.2 g/dL Normal 3.5-5.0 [facility] Comment on above: Performed By: #### L 500.2500, L501.4021, L100.0100 #### [facility] [address] [place], [address] Albumin/Globulin [Mass ratio] 1.3 {ratio} Normal 0.9-2.4 [facility] Comment on above: Performed By: #### L 500.2500, L501.4021, L100.0100 #### [facility] [address] [place], [address] ALK PHOS 61 U/L Normal 40-129 [facility] Comment on above: Performed By: #### L 500.2500, L501.4021, L100.0100 #### [facility] [address] [place], [address] ALT [Catalytic activity/Vol] 10 U/L Normal <=46 [facility] Comment on above: Performed By: #### L 500.2500, L501.4021, L100.0100 #### [facility] [address] [place], [address] AST [Catalytic activity/Vol] 26 U/L Normal <=37 [facility] Comment on above: Performed By: #### L 500.2500, L501.4021, L100.0100 #### [facility] [address] [place], [address] Bilirubin [Mass/Vol] 0.46 mg/dL Normal 0.00-1.30 [facility] Comment on above: Performed By: #### L 500.2500, L501.4021, L100.0100 #### [facility] [address] [place], [address] BUN/CRE 6.9 RATIO Low 10-20 [facility] Comment on above: Performed By: #### L 500.2500, L501.4021, L100.0100 #### [facility] [address] [place], [address] Calcium [Mass/Vol] 9.4 mg/dL Normal 7.6-11.0 [facility] Comment on above: Performed By: #### L 500.2500, L501.4021, L100.0100 #### [facility] [address] [place], [address] Chloride [Moles/Vol] 88 mmol/L Low 98-108 [facility] Comment on above: Performed By: #### L 500.2500, L501.4021, L100.0100 #### [facility] [address] [place], [address] CO2 [Moles/Vol] 26.9 mmol/L Normal 21.0-32.0 [facility] Comment on above: Performed By: #### L 500.2500, L501.4021, L100.0100 #### [facility] [address] [place], [address] Creatinine [Mass/Vol] 0.79 mg/dL Normal 0.70-1.20 [facility] Comment on above: Performed By: #### L 500.2500, L501.4021, L100.0100 #### [facility] [address] [place], [address] GAP 13 Normal 5-15 [facility] Comment on above: Performed By: #### L 500.2500, L501.4021, L100.0100 #### [facility] [address] [place], [address] GFR/1.73 sq M.predicted among non-blacks MDRD (S/P/Bld) [Vol rate/Area] 104 mL/min/{1.73_m2} Normal >60 [facility] Comment on above: Result Comment: mL/m in/1.73m2 CKD-EPI Creatinine Equation (2020) Performed By: #### L 500.2500, L501.4021, L100.0100 #### [facility] [address] [place], [address] Globulin (S) [Mass/Vol] 3.2 g/dL Normal 2.2-4.2 [facility] Comment on above: Performed By: #### L 500.2500, L501.4021, L100.0100 #### [facility] [address] [place], [address] Glucose [Mass/Vol] 92 mg/dL Normal 70-99 [facility] Comment on above: Performed By: #### L 500.2500, L501.4021, L100.0100 #### [facility] [address] [place], [address] Potassium [Moles/Vol] 3.2 mmol/L Low 3.3-5.1 [facility] Comment on above: Performed By: #### L 500.2500, L501.4021, L100.0100 #### [facility] [address] [place], [address] Sodium [Moles/Vol] 128 mmol/L Low 133-145 [facility] Comment on above: Performed By: #### L 500.2500, L501.4021, L100.0100 #### [facility] [address] [place], [address] T PROT 7.4 g/dL Normal 5.9-8.4 [facility] Comment on above: Performed By: #### L 500.2500, L501.4021, L100.0100 #### [facility] [address] [place], [address] Urea nitrogen [Mass/Vol] 5 mg/dL Normal 4-19 [facility] Comment on above: Performed By: #### L 500.2500, L501.4021, L100.0100 #### [facility] [address] [place], [address] Eosinophil percentageOrdered By: Debbie Garcia on 09-23-2025 Eosinophils/100 WBC (Bld) 1.3 % 0-5 [facility] Erythrocyte distribution wid th ratioOrdered By: Debbie Garcia on 09-23-2025 Erythrocyte distribution width (RBC) [Ratio] 12.6 % 11.6-14.6 [facility] Erythrocyte distribution wid th standard deviationOrdered By: Debbie Garcia on 09-23-2025 Erythrocyte distribution width (RBC) [Ratio] 35.8 fl 35.1-43.9 [facility] Gastroenterology Visit Repor ton 09-23-2025 Gastroenterology Visit Report [facility]astroenter[facility] [address] [place] [address] OFFICE VISIT Date of Service: 09/23/25 MR#: [id number] Acct: [id number] Name: LYNNETTE GONG Rep #: [id number] : 1970 Provider: LANA Adan Age/Sex: 55/M Location: [facility] [place] Status: Signed Intake Vital Signs 08/14/25 09:48 09/17/25 12:52 Height 5 ft 7 in 5 ft 7 in Intake Visit Reasons: 3 wk fu Chief Complaint: Nausea and vomiting Allergies No Known Allergies Allergy (Verified 09/23/25 07:52) Medications ???Medication ???Instructions ???Recorded ???Confirmed ???Type losartan 100 mg tablet 100 mg PO DAILY #30 tabs 05/05/25 09/23/25 Rx amlodipine 10 mg tablet 10 mg PO DAILY 06/23/25 09/23/25 H istory bisacodyl 5 mg tablet,delayed 5 mg PO QDAY PRN constipation 06/2809/23/25 History release (Dulcolax (bisacodyl)) docusate sodium 100 mg capsule 200 mg PO QDAY 07/16/25 09/23/25 H istory (Stool Softener) linaclotide 290 mcg capsule 290 mcg PO QAM #90 caps 08/11/25 1 Rx (Linzess) metoclopramide HCl 5 mg tablet 5 mg PO QAC #30 tabs 08/11/2508/28 Rx (Reglan) pantoprazole 40 mg tablet,delayed 40 mg PO QDAY #90 tabs 08/11/25 1 Rx release fluconazole 200 mg tablet 200 mg PO QDAY #14 tabs 09/17/25 1 Rx nystatin 100,000 unit/mL oral 1 ml buccal TID 14 days #42 mL 09/23/25 Rx suspension pantoprazole 40 mg tablet,delayed 40 mg PO QDAY #30 tabs 09/23/25 1 Rx release PFSH Medical History Emphysema, unspecified Wears glasses Loose, teeth Ambulates with cane High cholesterol Heartburn Gastric reflux Chronic cough Chest pain History of CVA (cerebrovascular accident) Back pain Arthritis Essential (primary) hypertension Osteoarthritis of knees, bilateral Tobacco use disorder, continuous Encounter for screening for malignant neoplasm of lung Constipation Chronic pain Smoker Migraines TIA (transient ischemic attack) HTN (hypertension) Morbid obesity Surgical History History of right knee joint replacement Social History Smoking Status: Current every day smoker Tobacco: How many years used: 30 alcohol intake: never substance use type: other details: magic mushrooms for pain HPI HPI Chief Complaint: Nausea and vomiting Details: LYNNETTE GONG, is a 55 M who presents to the office today for follow up. Last office visit 08/26/2025. Continues to have daily nausea and dry heaving but no vomiting. Taking Zofran 10 times per day. Continues with using kratom. Patient takes Excedrin intermittently. Recommended discontinuation of kratom and decreasing Zofran usage. EGD 09/17/2025 - Esophageal plaques were found, consistent with candidiasis. Biopsied. - Gastroparesis. - Chronic gastritis. Biopsied. - Chronic duodenitis. Biopsied. Pathology: not yet resulted OV 12/24/24 Pt feeling well since being on fluconazole and nystatin. He is no longer having nausea or vomiting. He is not taking pantoprazole, Linzess, zofran or reglan. ROS Const Constitutional: No fatigue, fever(s) or weight change ENT ENT: No difficulty swallowing Gastro GI: Positive for abdominal pain, diarrhea, nausea/dyspepsia and vomiting; No belching, bloating, change in bowel habits, change in stool character, coffee ground emesis, constipation, cramping, heartburn, difficulty swallowing, feeling full early, excessive flatus, incontinent of stools, Vomiting blood/hematemesis, Blood in stool, loose stools, Black,tarry stools, pain with swallowing or other Musc Musculoskeletal: No joint pain Skin Skin: No yellowing of the eye or itchy eyes Psych Psychiatric: No anxiety and No depression Endo Endocrine: No fatigue or weight change Aller/Imm Allergy/Immunologic: No itchy eyes Ankit/Lymp Hematologic/Lymphatic: No easy bleeding or easy bruising Exam Const General: cooperative and comfortable Nutritional Appearance: obese Orientation: alert HENKY Head: normal to inspection Eyes General: appearance normal, both eyes and all related structures Neck Neck: normal visual inspection Chest Chest palpation inspection: normal inspection of the chest Resp Effort Inspection: normal respiratory effort GI Inspection: normal to inspection Assessment and Plan Assessment and Plan (1) Abdominal pain: Status: Acute Plan: lynnette is a 55 yo male pt here today for follow up after EGD. EGD showing esophageal candidiasis, gastroparesis, gastritis and duodenitis. Pathology not yet in. Pt started on Nystatin swish and swallow TID and fluconazole 200 mg daily for 14 days. Since starting these medica (more content not included)... Normal [facility] Glomerular filtration rate ( GFR) estimation/1.73 sq m using serum, plasma, or whole bOrdered By: Debbie Garcia on 09-23-2025 GFR/1.73 sq M.predicted among non-blacks MDRD (S/P/Bld) [Vol rate/Area] 104 mL/min/{1.73_m2} >60 [facility] Comment on above: mL/min/1.73m2 CKD-EP I Creatinine Equation (2020) Hematocrit Auto (Bld) [Volum e fraction]Ordered By: Debbie Garcia on 09-23-2025 Hematocrit (Bld) [Volume fraction] 37.4 % Low 40-54 [facility] Hemoglobin measurementOrdere d By: Debbie Garcia on 09-23-2025 Hemoglobin (Bld) [Mass/Vol] 13.6 g/dL 13.0-16.5 [facility] Immature granulocytes/100 WB C Auto (Bld)Ordered By: Debbie Garcia on 09-23-2025 Immature granulocytes/100 WBC (Bld) 0.500 % 0.0-0.9 [facility] Comment on above: IG% - Immature Granu locytes (promyelocytes, myelocytes and metamyelocytes) > 1% indicates that a LEFT SHIFT is Present. Laboratory - Chemistry and C hemistry - challengeOrdered By: Debbie Garcia on 09-23-2025 AST [Catalytic activity/Vol] 26 U/L <38 [facility] MCV (mean corpuscular volume ) determinationOrdered By: Debbie Garcia on 09-23-2025 MCV (RBC) [Entitic vol] 79.9 fL Low 80-94 [facility] Mean corpuscular hemoglobin (MCH) determinationOrdered By: Debbie Garcia on 09-23-2025 MCH (RBC) [Entitic mass] 29.1 pg 27.0-32.0 [facility] Mean corpuscular hemoglobin concentration (MCHC) determinationOrdered By: Debbie Garcia on 09-23-2025 MCHC (RBC) [Mass/Vol] 36.4 g/dL High 32-36 [facility] Mean platelet volume determi nationOrdered By: Debbie Garcia on 09-23-2025 Platelet mean volume (Bld) [Entitic vol] 9.0 fL 6.2-12.0 [facility] Monocyte percentageOrdered B y: Debbie Garcia on 09-23-2025 Monocytes/100 WBC (Bld) 11.4 % High 0-10 [facility] Neutrophil percentageOrdered By: Debbie Garcia on 09-23-2025 Neutrophils/100 WBC (Bld) 62.7 % 47-70 [facility] Nucleated red blood cell per centageOrdered By: Debbie Garcia on 09-23-2025 Nucleated RBC/100 WBC (Bld) [Ratio] 0 % 0-5 [facility] Platelet countOrdered By: Francisca Garcia on 09-23-2025 Platelets (Bld) [#/Vol] 331 10*3/uL 150-450 [facility] Potassium measurement (mass/ volume)Ordered By: Debbie Garcia on 09-23-2025 Potassium (Unsp spec) [Mass/Vol] 3.2 mmol/L Low 3.3-5.1 [facility] RBC Auto (Bld) [#/Vol]Ordere d By: Debbie Garcia on 09-23-2025 RBC (Bld) [#/Vol] 4.68 10*6/uL 4.6-6.2 [facility] Serum creatinine measurement (mass/volume)Ordered By: Debbie Garcia on 09-23-2025 Creatinine [Mass/Vol] 0.79 mg/dL 0.70-1.20 [facility] Serum globulin measurementOr dered By: Debbie Garcia on 09-23-2025 Globulin (S) [Mass/Vol] 3.2 g/dL 2.2-4.2 [facility] Serum glucose measurement (m ass/volume)Ordered By: Debbie Garcia on 09-23-2025 Glucose [Mass/Vol] 92 mg/dL 70-99 [facility] Serum or plasma alanine sanchez otransferase (ALT) measurementOrdered By: Debbie Garcia on 09-23-2025 ALT [Catalytic activity/Vol] 10 U/L <47 [facility] Serum or plasma albumin pepe urement (mass/volume)Ordered By: Debbie Garcia on 09-23-2025 Albumin [Mass/Vol] 4.2 g/dL 3.5-5.0 [facility] Serum or plasma albumin/glob ulin mass ratioOrdered By: Debbie Garcia on 09-23-2025 Albumin/Globulin [Mass ratio] 1.3 {ratio} 0.9-2.4 [facility] Serum or plasma alkaline logan sphatase measurementOrdered By: Debbie Garcia on 09-23-2025 ALP [Catalytic activity/Vol] 61 U/L 40-129 [facility] Serum or plasma calcium pepe urement (mass/volume)Ordered By: Debbie Garcia on 09-23-2025 Calcium [Mass/Vol] 9.4 mg/dL 7.6-11.0 [facility] Serum or plasma urea nitroge n measurement (mass/volume)Ordered By: Debbie Garcia on 09-23-2025 Urea nitrogen [Mass/Vol] 5 mg/dL 4-19 [facility] Sodium levelOrdered By: Kathie Garcia on 09-23-2025 Sodium [Moles/Vol] 128 mmol/L Low 133-145 [facility] Total proteinOrdered By: Suellen Garcia on 09-23-2025 Protein [Mass/Vol] 7.4 g/dL 5.9-8.4 [facility] White blood cell (WBC) count Ordered By: Debbie Garcia on 09-23-2025 WBC (Bld) [#/Vol] 8.0 10*3/uL 4.4-11.0 [facility] EGD Reporton 09-17-2025 EGD Report [facility] Medical Records Department [address] [place] [address] EGD Report MR#: [id number] Acct: [id number] Name: LYNNETTE GONG Rep #: [id number] : 1970 55 From: Tito Morris DO PCP: UMAIR Taveras Status:REG [facility] Patient Name: Lynnette Gong Procedure Date: 09/17/2025 1:32 PM Date of : 1970 Age: 55 Procedure: Upper GI endoscopy Indications: Epigastric abdominal pain Providers: Tito Morris DO Referring MD: Umair Taveras Medicines: Monitored Anesthesia Care Patient Profile: This is a 55 year old male. Refer to note in patient chart for documentation of history and physical. Patient has symptoms of acute epigastric abdominal pain, dysphagia with both liquids and solids, acute nausea and acute vomiting. Complications: No immediate complications. Procedure: Pre-Anesthesia Assessment: - Prior to the procedure, a History and Physical was performed, and patient medications and allergies were reviewed. The patient is competent. The risks and benefits of the procedure and the sedation options and risks were discussed with the patient. All questions were answered and informed consent was obtained. Patient identification and proposed procedure were verified by the physician in the pre-procedure area. Mental Status Examination: alert and oriented. Airway Examination: normal oropharyngeal airway and neck mobility. Respiratory Examination: clear to auscultation. CV Examination: normal. Prophylactic Antibiotics: The patient does not require prophylactic antibiotics. Prior Anticoagulants: The patient has taken no anticoagulant or antiplatelet agents except for NSAID medication. ASA Grade Assessment: II - A patient with mild systemic disease. After reviewing the risks and benefits, the patient was deemed in satisfactory condition to undergo the procedure. The anesthesia plan was to use monitored anesthesia care (MAC). Immediately prior to administration of medications, the patient was re-assessed for adequacy to receive sedatives. The heart rate, respiratory rate, oxygen saturations, blood pressure, adequacy of pulmonary ventilation, and response to care were monitored throughout the procedure. The physical status of the patient was re-assessed after the procedure. After obtaining informed consent, the endoscope was passed under direct vision. Throughout the procedure, the patient's blood pressure, pulse, and oxygen saturations were monitored continuously. The Endoscope was introduced through the mouth, and advanced to the fourth part of the duodenum. Small bowel enteroscopy was deemed necessary. The upper GI endoscopy was accomplished without difficulty. The patient tolerated the procedure well. Scope In: 1:45:02 PM Scope Out: 1:50:44 PM Total Procedure Duration Time 0 hours 5 minutes 42 seconds Findings: Diffuse, yellow plaques were found in the entire esophagus. Biopsies were taken with a cold forceps for histology. Verification of patient identification for the specimen was done. Estimated blood loss was minimal. Suspect gastroparesis due to absence of peristalsis, patient symptoms and retained gastric contents. Diffuse severe inflammation characterized by congestion (edema), erosions and erythema was found in the entire examined stomach. Biopsies were taken with a cold forceps for histology. Verification of patient identification for the specimen was done. Estimated blood loss was minimal. Biopsies were taken with a cold forceps for Helicobacter pylori testing. Verification of patient identification for the specimen was done. Estimated blood loss was minimal. Patchy severe inflammation characterized by erosions, erythema and friability was found in the entire duodenum. Biopsies were taken with a cold forceps for histology. Verification of patient identification for the specimen was done. Estimated blood loss was minimal. Impression: - Esophageal plaques were found, consistent with candidiasis. Biopsied. - Gastroparesis. - Chronic gastritis. Biopsied. - Chronic duodenitis. Biopsied. Recommendation: - Discharge patient to home. - Resume previous diet. - Continue present medications. - Await pathology results. - Fluconazole 200 mg once a day x 14 days - Nystatin swish and swallow 3 times a day x 10 days - Gastric emptying study - Hemoglobin A1c Procedure Code(s): --- Professional --- 31789, Small intestinal endoscopy, enteroscopy beyond second portion of duodenum, not including ileum; with biopsy, single or multiple CPT copyright 2021 [employer]. All rights reserved. The codes documented in this report are preliminary and upon signing teacher review may be revised to meet current compliance requirements. Tito Morris DO 09/17/2025 2:06:55 PM This report has been signed electronically (more content not included)... Normal [facility] Immunohistochemical Stainson 09-17-2025 Immunohistochemical Stains Patient Age/Sex Location Account Attending Physician LYNNETTE GONG 55/M EN [id number] Tito Morris DO Specimen: [id number] Received: 09/17/25 Status: DONAVON Osuna Num: [id number] Spec Type: EGD BIOPSY Mamta Dr: Tito Morris DO HEADER OPERATION: EGD and biopsy PRE-OP DIAGNOSIS: Abdominal pain, pain, nausea / vomiting TISSUE SUBMITTED: A- Random esophagus biopsy, B- Gastric body biopsy, C- Duodenum biopsy MICROSCOPIC DIAGNOSIS A. Esophagus, random, biopsy: - Squamous mucosa with reactive changes, acute inflammation, and fungal organisms morphologically consistent with candidiasis. B. Gastric body, biopsy: - Oxyntic mucosa with mild chronic inflammation. - IHC negative for H. pylori organisms. C. Duodenum, biopsy: - Alen gland hyperplasia with gastric mucin cell metaplasia, suggestive of peptic injury. - Negative for increased intraepithelial lymphocytes. MICROSCOPIC DESCRIPTION Slides are reviewed. All matched controls reacted appropriately. These tests were developed and their performance characteristics determined by [facility]. They may not have been cleared or approved by the U.S. Food and Drug Administration. The FDA has determined that such clearance or approval is not necessary. The above immunohistochemical markers and/or special???stains have been reviewed by the Pathologist. GROSS DESCRIPTION A. Received in fixative is one container labeled with the patient's name and designated Random esophagus biopsy." The specimen consists of multiple irregular fragments of casillas tissue that in aggregate measure 0.6 x 0.6 x 0.1 cm. The specimen is totally submitted in one cassette. B. Received in fixative is one container labeled with the patient's name and designated Gastric body biopsy. The specimen consists of multiple irregular fragments of casillas tissue that in aggregate measure 0.7 x 0.6 x 0.1 cm. The specimen is totally submitted in one cassette. C. Received in fixative is one container labeled with the patient's name and designated "Duodenum biopsy." The specimen consists of two irregular fragments of casillas tissue, each measuring 0.4 cm. The specimen is totally submitted in one cassette. OK 09/17/2025 Patient Age/Sex Location Account Attending Physician LYNNETTE GONG/M EN [id number] Tito Morris DO CPT:[id number] Patient Age/Sex Location Account Attending Physician LYNNETTE GONG/M EN [id number] Tito Morris DO Signed (signature on file) Dr. Adrianne Bey MD 09/30/25 1357 Normal [facility] Comment on above: Performed By: #### P IMHI ####[facility] [id number] [facility] [place] [place], [address] MR/OP.PROVATon 09-17-2025 [facility] Medical Records Department [address] [place] [address] Provation Physician Letter MR#: [id number] Acct: [id number] Name: LYNNETTE GONG Rep #: [id number] : 1970 55 From: Tito Morris DO PCP: UMAIR Taveras Status:REG [facility] 09/17/2025 Umair Taveras Re : Upper GI endoscopy procedure for Lynnette Gong Brandy Roa This procedure was performed on Wednesday, September 17, 2025. My impressions and recommendations are as follows: Impressions : - Esophageal plaques were found, consistent with candidiasis. Biopsied. - Gastroparesis. - Chronic gastritis. Biopsied. - Chronic duodenitis. Biopsied. Recommendations : - Discharge patient to home. - Resume previous diet. - Continue present medications. - Await pathology results. - Fluconazole 200 mg once a day x 14 days - Nystatin swish and swallow 3 times a day x 10 days - Gastric emptying study - Hemoglobin A1c My findings are described in the full procedure note, which is enclosed. If I can be of further assistance, please feel free to contact me at . Sincerely, Tito Morris DO 09/17/2025 2:06:55 PM This report has been signed electronically. 09/17/25 6432 Date Tito Ziegler Signature: Date (if indicated) CC: JUMPBASTING MACHINE OPERATOR-C Deborah Morris DO Date Dictated: 09/17/25 1332 Date Transcribed: Spooler Operator Automatic: RF Signed [facility] MR/POSTOP.ANE 09-17-2025 MR/POSTOP.[facility] Medical Records Department [address] [place] [address] Anesthesia Postop Eval I 09/17/25 1359 MR#: [id number] Acct: [id number] Name: LYNNETTE GONG Rep #: [id number] : 1970 55 From: Jean Jc PCP: UMAIR Taveras Status:REG SDC Y Race: C Location: [place] [address] Anesthesia: Postop Eval I Current Vital Signs Temperature: 97.2 F Pulse Rate: 76 Blood Pressure: 154/90 Respiratory Rate: 16 Pulse Ox: 98 Oxygen Delivery Method: Room Air Assessment Airway patent: Yes Spontaneous unlabored respirations: Yes Mental status: Asleep nausea: No Vomiting: No Anesthesia Complication: No Fluid Hydration Crystalloid volume administer (ml): 400 Total IV fluid infused: 400 Progress Note Anesthesia document: Postop Eval 1 completed: Yes 09/17/25 1400 Date Jean Mendoza Signature: Date CC: Signed [facility] MR/[id number] 09-17-2025 MR/POSTOPAN2 [facility] Medical Records Department [address] [place] [address] Anesthesia Postop Eval II 09/17/25 1422 MR#: [id number] Acct: [id number] Name: LYNNETTE GONG Rep #: [id number] : 1970 55 From: Mina Calle MD PCP: UMAIR Taveras Status:REG SDC Y Race: C Location: [facility] Anesthesia Postop Eval I Sum Postop Eval Completion status Anesthesia document: Postop Eval 1 completed: Yes Anesthesia Postop Eval I Summary Anesthesia Postop Eval I Summary: Anesthesia Postop Eval I: Assessment Summary Airway patent Yes 09/17/25 14:00 [email or web address] Spontaneous unlabored Yes 09/17/25 14:00 [email or web address] respirations Mental status Asleep 09/17/25 14:00 [email or web address] nausea No 09/17/25 14:00 [email or web address] Vomiting No 09/17/25 14:00 [email or web address] Anesthesia Postop Eval I: Fluid Summary Crystalloid volume administer 400 09/17/25 14:00 [email or web address] (ml) Colloids volume administered ( ml) Blood Product volume administered (ml) Total IV fluid infused 400 09/17/25 14:00 [email or web address] Anesthesia Postop Eval I: Summary Notes Anesthesia Complication No 09/17/25 14:00 [email or web address] Anesthesia Complication Comment: Post-operative progress note Anesthesia: Postop Eval II Evaluation Mental status: Awake Pain Level: 0 nausea: No Vomiting: No 09/17/25 1422 Date Mina Calle MD Cosigner Signature: Date CC: Signed Normal [facility] MR/Gina 09-15-2025 MR/[facility] Medical Records Department [address] [place] [address] PAT - Anesthesia 09/15/25 1404 MR#: [id number] Acct: [id number] Name: LYNNETTE GONG Rep #: [id number] : 1970 55 From: Mina Calle MD PCP: UMAIR Taveras Status:PRE SDC Y Race: C Location: EN Pre-Assessment Diagnosis/Proposed Procedure Planned Operative Procedure(s): EGD Anesthesia History 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 When Was Last Pacemaker Check QUESTION #4 FULL TEXT: You/Your Family Experience fever (hyperthermia) with Anesthesia Last Oral Intake Last Oral intake: Last Oral Intake NPO since Meds taken in AM with sips of water? Meds patient instructed to take am of surgery PONV PONV - assistant plant manager: PONV - assistant plant manager Female No 09/15/25 13:45 HX of Motion Sickness No 09/15/25 13:45 HX of N/V After Surgery No 09/15/25 13:45 Non-Smoker No 09/15/25 13:45 Duration of Surgery greater No 09/15/25 13:45 than 60 minutes Number of Risk Factors PONV Score Height Weight Height Weight: Anesthesia: Height Weight Height 5 ft 7 in 08/14/25 09:48 Respiratory Assessment Respiratory Assessment - assistant plant manager: Respiratory Tract Infection Hx - assistant plant manager Hx Respiratory Tract Infection No 09/15/25 13:45 STOP Sleep Apnea STOP Sleep Apnea - assistant plant manager: STOP Sleep Apnea - assistant plant manager Hx Hypertension Yes: STILL WORKING ON, 09/15/25 13:45 IMPROVING BUT NOT NORMAL Hx Sleep Apnea No 09/15/25 13:45 CPAP No 05/03/25 19:20 BIPAP No 05/03/25 19:20 Do you snore loudly (louder No 09/15/25 13:45 than talking or can be heard Do you often feel tired/ No 09/15/25 13:45 fatigued/ sleepy during daytime? Has anyone observed you stop No 09/15/25 13:45 breathing during sleep? STOP Results Negative 09/15/25 13:45 QUESTION #5 FULL TEXT : Do you snore loudly (louder than talking or can be heard through closed doors)? 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 Specify any problems Hx of Preganancy in last 3 N/A 09/15/25 13:45 Months Nurse Filling Out Transfusion NBUCHER 09/15/25 13:45 Questions: Date: 09/15/25 09/15/25 13:45 Time: 13:46 09/15/25 13:45 Patient unable to answer at this time (ie. confused, unrespo /Reproduction History /Reproductive History - assistant plant manager: /Reproductive Hx- assistant plant manager Hx Now No 09/15/25 13:45 Gestational Age (in weeks): EDC: Hx Hx Para Hx Section SAB No 09/15/25 13:45 PFSH Medical History (Updated 09/15/25 @ 13:53 by Lissy Miller) Emphysema, unspecified Wears glasses Loose, teeth Ambulates with cane High cholesterol Heartburn Gastric reflux Chronic cough Chest pain History of CVA (cerebrovascular accident) Back pain Arthritis Essential (primary) hypertension Osteoarthritis of knees, bilateral Tobacco use disorder, continuous Encounter for screening for malignant neoplasm of lung Constipation Chronic pain Smoker Migraines TIA (transient ischemic attack) HTN (hypertension) Morbid obesity Home Medications ???Medication ???Instructions ???Recorded ???Last Taken ???Type losartan 100 mg tablet 100 mg PO DAILY #30 tabs 05/05/25 Unknown Rx amlodipine 10 mg tablet 10 mg PO DAILY 06/23/25 Unknown Hi story bisacodyl 5 mg tablet,delayed 5 mg PO QDAY PRN constipation 06/28 Unknown History release (Dulcolax (bisacodyl)) docusate sodium 100 mg capsule 200 mg PO Q (more content not included)... Normal [facility] Gastroenterology Visit Repor ton 08-26-2025 Gastroenterology Visit Report [facility] Gastroenterology [address] [place] [address] OFFICE VISIT Date of Service: 08/26/25 MR#: [id number] Acct: [id number] Name: LYNNETTE GONG Rep #: [id number] : 1970 Provider: LANA Adan Age/Sex: 55/M Location: [facility] [place] [place] Status: Signed Intake Vital Signs 08/11/25 14:40 08/14/25 09:48 Height 5 ft 7 in 5 ft 7 in Weight: 304 lb 4 oz BMI 47.6 BP 144/87 H Respiration 18 Pulse 82 Temp 98.8 F Pulse Oximetry (%) 93 Oxygen Delivery Method room air Intake Visit Reasons: SCHEDULE FU PER ANANYA Chief Complaint: Nausea and vomiting Aquaculturist Required: No Accompanied by: Self Is patient in pain?: Yes Allergies No Known Allergies Allergy (Verified 08/26/25 11:30) Medications ???Medication ???Instructions ???Recorded ???Confirmed ???Type losartan 100 mg tablet 100 mg PO DAILY #30 tabs 05/05/25 08/26/25 Rx amlodipine 10 mg tablet 10 mg PO DAILY 06/23/25 08/26/25 H istory ondansetron 4 mg disintegrating 4 mg PO Q8H PRN PRN Nausea #10 tab s 06/23/25 08/26/25 Rx tablet bisacodyl 5 mg tablet,delayed 5 mg PO QDAY PRN constipation 06/2808/26/25 History release (Dulcolax (bisacodyl)) docusate sodium 100 mg capsule 100 mg PO QDAY 07/16/25 08/26/25 H istory (Stool Softener) linaclotide 290 mcg capsule 290 mcg PO QAM #90 caps 08/11/25 0 08/26/25 Rx (Linzess) metoclopramide HCl 5 mg tablet 5 mg PO QAC #30 tabs 08/11/2507/30 Rx (Reglan) pantoprazole 40 mg tablet,delayed 40 mg PO QDAY #90 tabs 08/11/25 0 08/26/25 Rx release [facility] Medical History History of CVA (cerebrovascular accident) Back pain Arthritis Essential (primary) hypertension Osteoarthritis of knees, bilateral Tobacco use disorder, continuous Encounter for screening for malignant neoplasm of lung Constipation Chronic pain Smoker Migraines TIA (transient ischemic attack) HTN (hypertension) Morbid obesity Surgical History History of right knee joint replacement Social History Smoking Status: Current every day smoker Tobacco: How many years used: 30 alcohol intake: never substance use type: other details: magic mushrooms for pain HPI HPI Chief Complaint: Nausea and vomiting Details: LYNNETTE GONG, is a 55 M who presents to the office today for follow-up. OV 08/11/2025 54y/o male presents with intractable nausea and dry heaves in the context of chronic moderate hyponatremia (serum sodium 118???128 mmol/L, most recent 128), high urine osmolality (480 mOsm/kg), urine sodium (48 mmol/L), severe constipation, headaches, normal TSH, indeterminate morning cortisol, and antihypertensive therapy (amlodipine, losartan). 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 He is scheduled for ACTH Stim Testing to be completed this , 08/14/2025. We have discussed use of ondansetron as excessive and likely contributing to constipation. I have prescribed metoclopramide 5 mg 3 times daily and we have reviewed potential side effects in detail. His frequent use of Excedrin is likely exacerbating his UGI symptoms and I have recommended he decrease use. He will start pantoprazole 40 mg once daily. In terms of constipation he did get good results previously with notable improvement in abdominal pain and nausea with Linzess 290 mcg. I have provided him samples and he will resume use of Linzess. He will follow-up with me in the office in 10 days. Patient Instructions: 1. Reduce use of Ondansetron this is likely contributing to worsening of constipation 2. Metoclopramide for nausea. Metoclopramide can cause tardive dyskinesia, a serious movement disorder that is often irreversible. There is no known treatment for tardive dyskinesia. The risk of developing tardive dyskinesia increases with duration of treatment and total cumulative dose. It is recommended to discontinue metoclopramide in patients who develop signs or symptoms of tardive dyskinesia. In some patients, symptoms lessen or resolve after metoclopramide is stopped. Avoid treatment with metoclopramide for longer than 12 weeks because of the increased risk of developing tardive dyskinesia with longer-term use. We have discussed 2 weeks wash out after 12 weeks of therapy and then resuming. We have discussed risk of recurrent symptoms (N/V) with holding therapy. 3. Resume Linzess 290mcg once daily, discussed risk of diarrhea and worsening hyponatremia. Samples provided and RX sent to pharmac (more content not included)... Normal [facility] L509.6001on 08-14-2025 CORTISOL 35.80 ug/dL High 6.02-18.40 [facility] Comment on above: Order Comment: 60M Performed By: #### L 509.6001 ####[facility] [address] [facility] [place], [address] CORTISOL 29.20 ug/dL High 6.02-18.40 [facility] Comment on above: Order Comment: 30M Performed By: #### L 509.6001 ####[facility] [address] [facility] [place], [address] CORTISOL 20.60 ug/dL High 6.02-18.40 [facility] Comment on above: Order Comment: B Performed By: #### L 500.2500, L501.4021, L100.0100 #### [facility] [address] [place], [address] Serum or plasma cortisol cem surement (mass/volume)Ordered By: Elizabet Diop on 08-14-2025 Cortisol [Mass/Vol] 35.80 ug/dL High 6.02-18.40 [facility] Gastroenterology Visit Repor ton 08-11-2025 Gastroenterology Visit Report [facility] Gastroenterology [address] [place] [address] OFFICE VISIT Date of Service: 08/11/25 MR#: [id number] Acct: [id number] Name: LYNNETTE GONG Rep #: [id number] : 1970 Provider: UMAIR mccray Age/Sex: 54/M [place] [facility] [place]: Signed Intake Vital Signs 07/17/25 11:52 08/11/25 14:40 Height 5 ft 7 in 5 ft 7 in Weight: 310 lb 8 oz 304 lb 4 oz BMI 48.6 47.6 BP 143/83 H 144/87 H Blood Pressure Location Lt brachial Position Sitting Respiration 14 18 Pulse 74 82 Pulse Source Monitor Temp 98.8 F Pulse Oximetry (%) 97 93 Oxygen Delivery Method room air Intake Visit Reasons: 1 M FU Chief Complaint: nausea Aquaculturist Required: No Accompanied by: Self Is patient in pain?: No Allergies No Known Allergies Allergy (Verified 08/11/25 14:40) Medications ???Medication ???Instructions ???Recorded ???Confirmed ???Type losartan 100 mg tablet 100 mg PO DAILY #30 tabs 05/05/25 08/11/25 Rx amlodipine 10 mg tablet 10 mg PO DAILY 06/23/25 08/11/25 H istory ondansetron 4 mg disintegrating 4 mg PO Q8H PRN PRN Nausea #10 tab s 06/23/25 08/11/25 Rx tablet bisacodyl 5 mg tablet,delayed 5 mg PO QDAY PRN 07/16/25 08/11/25 History release (Dulcolax (bisacodyl)) docusate sodium 100 mg capsule 100 mg PO QDAY 07/16/25 08/11/25 H istory (Stool Softener) linaclotide 290 mcg capsule 290 mcg PO QAM #90 caps 08/11/25 0 08/11/25 Rx (Linzess) metoclopramide HCl 5 mg tablet 5 mg PO QAC #30 tabs 08/11/2507/28 Rx (Reglan) pantoprazole 40 mg tablet,delayed 40 mg PO QDAY #90 tabs 08/11/25 0 08/11/25 Rx release [facility] Medical History History of CVA (cerebrovascular accident) Back pain Arthritis Essential (primary) hypertension Osteoarthritis of knees, bilateral Tobacco use disorder, continuous Encounter for screening for malignant neoplasm of lung Constipation Chronic pain Smoker Migraines TIA (transient ischemic attack) HTN (hypertension) Morbid obesity Surgical History History of right knee joint replacement Social History Smoking Status: Current every day smoker Tobacco: How many years used: 30 alcohol intake: never substance use type: other details: magic mushrooms for pain HPI HPI Chief Complaint: nausea Details: OV 07/17/2025 54y/o male presents for initial consultation with complaints of intractable nausea and constipation. Symptoms began approximately two months ago with severe headaches that would keep him up at night and dizziness. He reports developing hypertension and hyponatremia. Na has ranged from 119 to 127 over the past two months. He is presently taking sodium tablets daily and reports lung cancer has been ruled out. He denies any other work-up for cause of hyponatremia. He is not taking ant SSRI or thiazide diuretics. He is taking Miralax multiple doses daily to help with constipation which has been ineffective. He reports attributing his constipation to taking kratom. He has decreased use and denies any improvement in constipation. In terms of nausea, he is taking up to 12 ondansetron tablets daily which are very likely contributing to constipation. He was seen in the ED on 06/24/2025 and KUB revealed fecal retention consistent with constipation, denies any improvement with enema. Bowel preparation with laxative agents is contraindicated in this patient due to the risk of worsening his severe, persistent hyponatremia and precipitating serious complications such as seizures, arrhythmias, and osmotic demyelination. His symptoms in combination with hyponatremia raises the concern for secondary adrenal insufficiency, possibly due to pituitary apoplexy, Cortisol, TSH and BMP will be completed today. I have also ordered an ACTH stimulation test. Colonoscopy preparation should be deferred until cause of hyponatremia is determined. Patient Instructions: Avoid use of psychotropics Complete labs today and ACTH Stim Test Reduce use of Ondansetron, likely contributing to constipation. LABS 08/04/2025 Na 128, Ur Osmo 480, Ur random Na 48 07/17/2025 Na 123, TSH WNL, AM Cortsol 6.83 - discontinuing Miralax nausea has improved - Was taking Dulcolax laxative 4 a day and Dulcolax stool softener 2 daily, I started him on Linzess 290mcg - reports he was so sick he had to r/s ACTH Stim Test - he reports headaches are better - Excedrin Migraine 3 QD to every 3 days - Kratom powder - 1/8c once a day, using to treat the knee and back pain - Linzess caused diarrhea, took every 2-3 days - he is experiencing constipation - report she is not eating - has been drinking James (more content not included)... Normal [facility] Anion gap in Serum or Plasma Ordered By: Deborah Roa on 08-04-2025 Anion gap [Moles/Vol] 15 mmol/L - [facility] BUN/creatinine ratioOrdered By: Deborah Roa on 08-04-2025 Urea nitrogen/Creatinine [Mass ratio] 11.6 mg/mg - [facility] Basic Metabolic Profile (BMP )on 08-04-2025 BUN/CRE 11.6 RATIO Normal 09-15 [facility] Comment on above: Performed By: #### L 500.2500, L501.4021, L100.0100 #### [facility] [address] [facility] [place], [address] Calcium [Mass/Vol] 9.3 mg/dL Normal 7.6-11.0 [facility] Comment on above: Performed By: #### L 500.2500, L501.4021, L100.0100 #### [facility] [address] [place], [address] Chloride [Moles/Vol] 90 mmol/L Low 98-108 [facility] Comment on above: Performed By: #### L 500.2500, L501.4021, L100.0100 #### [facility] [address] [place], [address] CO2 [Moles/Vol] 22.5 mmol/L Normal 21.0-32.0 [facility] Comment on above: Performed By: #### L 500.2500, L501.4021, L100.0100 #### [facility] [address] [place], [address] Creatinine [Mass/Vol] 0.80 mg/dL Normal 0.70-1.20 [facility] Comment on above: Performed By: #### L 500.2500, L501.4021, L100.0100 #### [facility] [address] [place], [address] GAP 15 Normal 5-15 [facility] Comment on above: Performed By: #### L 500.2500, L501.4021, L100.0100 #### [facility] [address] [place], [address] GFR/1.73 sq M.predicted among non-blacks MDRD (S/P/Bld) [Vol rate/Area] 104 mL/min/{1.73_m2} Normal >60 [facility] Comment on above: Result Comment: mL/m in/1.73m2 CKD-EPI Creatinine Equation (2020) Performed By: #### L 500.2500, L501.4021, L100.0100 #### [facility] [address] [place], [address] Glucose [Mass/Vol] 96 mg/dL Normal 70-99 [facility] Comment on above: Performed By: #### L 500.2500, L501.4021, L100.0100 #### [facility] [address] [place], [address] Potassium [Moles/Vol] 4.2 mmol/L Normal 3.3-5.1 [facility] Comment on above: Performed By: #### L 500.2500, L501.4021, L100.0100 #### [facility] [address] [place], [address] Sodium [Moles/Vol] 128 mmol/L Low 133-145 [facility] Comment on above: Performed By: #### L 500.2500, L501.4021, L100.0100 #### [facility] [address] [place], [address] Urea nitrogen [Mass/Vol] 9 mg/dL Normal 4-19 [facility] Comment on above: Performed By: #### L 500.2500, L501.4021, L100.0100 #### [facility] [address] [place], [address] Carbon dioxide, total [Moles /volume] in Central venous bloodOrdered By: Deborah Roa on 08-04-2025 CO2 [Moles/Vol] 22.5 mmol/L 21.0-32.0 [facility] Chloride assayOrdered By: Ra jacoby Roa on 08-04-2025 Chloride [Moles/Vol] 90 mmol/L Low 98-108 [facility] Glomerular filtration rate ( GFR) estimation/1.73 sq m using serum, plasma, or whole bOrdered By: Deborah Roa on 08-04-2025 GFR/1.73 sq M.predicted among non-blacks MDRD (S/P/Bld) [Vol rate/Area] 104 mL/min/{1.73_m2} >60 [facility] Comment on above: mL/min/1.73m2 CKD-EP I Creatinine Equation (2020) Osmolality urOrdered By: Cecilio Roa on 08-04-2025 Osmolality (U) [Osmolality] 480 mOsm/KG >50 [facility] Comment on above: Normal Urine Referen ce Ranges Random: 50 - 1200 mOsm/kg H20 depending on fluid intake Random: >850 mOsm/kg after 12 hour fluid restriction 24 hour: ~300 - 900 mOsm/kg H2O Osmolality, Urineon 09-08-20 25 OSMOLALITY,UR 480 mOsm/KG Normal [facility] Comment on above: Result Comment: Normal Urine Reference Ranges Random: 50 - 1200 mOsm/kg H20 depending on fluid intake Random: >850 mOsm/kg after 12 hour fluid restriction 24 hour: 300 - 900 mOsm/kg H2O Performed By: #### L 500.2500, L501.4021, L100.0100 #### [facility] [address] [place], [place], [address] Potassium measurement (mass/ volume)Ordered By: Deborah Roa on 08-04-2025 Potassium (Unsp spec) [Mass/Vol] 4.2 mmol/L 3.3-5.1 [facility] Serum creatinine measurement (mass/volume)Ordered By: Deborah Roa on 08-04-2025 Creatinine [Mass/Vol] 0.80 mg/dL 0.70-1.20 [facility] Serum glucose measurement (m ass/volume)Ordered By: Deborah Roa on 08-04-2025 Glucose [Mass/Vol] 96 mg/dL 70-99 [facility] Serum or plasma calcium pepe urement (mass/volume)Ordered By: Deborahtony Roa on 08-04-2025 Calcium [Mass/Vol] 9.3 mg/dL 7.6-11.0 [facility] Serum or plasma urea nitroge n measurement (mass/volume)Ordered By: Deborah Roa on 08-04-2025 Urea nitrogen [Mass/Vol] 9 mg/dL 4-19 [facility] Sodium levelOrdered By: Gale Roa on 08-04-2025 Sodium [Moles/Vol] 128 mmol/L Low 133-145 [facility] Urine sodium measurement (mo les/volume)Ordered By: Deborahtony Roa on 08-04-2025 Sodium (U) [Moles/Vol] 48 mmol/L Normal Not Establ. [facility] Comment on above: Performed By: #### L 500.2500, L501.4021, L100.0100 #### [facility] [address] [place], [place], [address] Anion gap in Serum or Plasma Ordered By: Elizabet Diop on 07-17-2025 Anion gap [Moles/Vol] 14 mmol/L 5- [facility] BUN/creatinine ratioOrdered By: Elizabet Diop on 07-17-2025 Urea nitrogen/Creatinine [Mass ratio] 4.3 mg/mg Low - [facility] Basic Metabolic Profile (BMP )on 07-17-2025 BUN/CRE 4.3 RATIO Low - [facility] Comment on above: Performed By: #### L 501.9520, L500.2500, L509.6001 ####[facility] [address] [place], [address] GAP 14 Normal - [facility] Comment on above: Performed By: #### L 501.9520, L500.2500, L509.6001 ####[facility] [address] [place], [address] Potassium [Moles/Vol] 3.8 mmol/L Normal 3.3-5.1 [facility] Comment on above: Performed By: #### L 501.9520, L500.2500, L509.6001 ####[facility] [address] [place], [address] Carbon dioxide, total [Moles /volume] in Central venous bloodOrdered By: Elizabet Diop on 07-17-2025 CO2 [Moles/Vol] 22.7 mmol/L Normal 21.0-32.0 [facility] Comment on above: Performed By: #### L 501.9520, L500.2500, L509.6001 ####[facility] [address] [place], [address] Chloride assayOrdered By: Ortiz Diop on 07-17-2025 Chloride [Moles/Vol] 86 mmol/L Low 98-108 [facility] Comment on above: Performed By: #### L 501.9520, L500.2500, L509.6001 ####[facility] [address] [place], [address] Gastroenterology Visit Repor ton 07-17-2025 Gastroenterology Visit Report [facility] Gastroenterology [address] [place] [address] OFFICE VISIT Date of Service: 07/17/25 MR#: [id number] Acct: [id number] Name: LYNNETTE GONG Rep #: [id number] : 1970 Provider: UMAIR mccray Age/Sex: 54/M [place] [facility] [place]: Signed Intake Vital Signs 06/23/25 15:12 07/17/25 11:52 Height 5 ft 7 in 5 ft 7 in Weight: 310 lb 8 oz BMI 48.6 BP 143/83 H Blood Pressure Location Lt brachial Position Sitting Respiration 14 Pulse 74 Pulse Source Monitor Pulse Oximetry (%) 97 Intake Visit Reasons: CONSTIPATION NAUSEA VOMITINT ABDOMINAL PAIN Chief Complaint: colonoscopy Allergies No Known Allergies Allergy (Verified 07/16/25 17:19) Medications ???Medication ???Instructions ???Recorded ???Confirmed ???Type losartan 100 mg tablet 100 mg PO DAILY #30 tabs 05/05/25 07/17/25 Rx amlodipine 10 mg tablet 10 mg PO DAILY 06/23/25 07/17/25 H istory ondansetron 4 mg disintegrating 4 mg PO Q8H PRN PRN Nausea #10 tab s 06/23/25 07/17/25 Rx tablet bisacodyl 5 mg tablet,delayed 5 mg PO QDAY PRN 07/16/25 07/17/25 History release (Dulcolax (bisacodyl)) docusate sodium 100 mg capsule 100 mg PO QDAY 07/16/25 07/17/25 H istory (Stool Softener) polyethylene glycol 3350 17 4 g PO QDAY PRN 07/16/25 07/17/25 History gram/dose oral powder (Miralax) PFSH Medical History History of CVA (cerebrovascular accident) Back pain Arthritis Essential (primary) hypertension Osteoarthritis of knees, bilateral Tobacco use disorder, continuous Encounter for screening for malignant neoplasm of lung Constipation Chronic pain Smoker Migraines TIA (transient ischemic attack) HTN (hypertension) Morbid obesity Surgical History History of right knee joint replacement Social History Smoking Status: Current every day smoker Tobacco: How many years used: 30 alcohol intake: never substance use type: other details: magic mushrooms for pain HPI HPI Chief Complaint: colonoscopy Details: LYNNETTE GONG, is a 54 M who presents to the office today for ER 06/24/2025 ED course: Patient increasing constipation likely from his increased kratom use which she has opiate like substance. Nonsurgical abdomen. Rectal exam could not feel any impaction distally. Will check KUB plan for enema. KUB did note stools more towards the rectal vault. Soapsuds enema was ordered. He states only fluid output. He is nontoxic. Reported nausea. No clinical obstruction. There is no surgical history. Discussed with patient using his MiraLAX cup full water with 1 scoop every hour until bowel movement. Given prescription for Zofran with 1 dose given the ED. All questions were answered. - has never had a colonoscopy previously - progressive nausea and abdominal pain - has been taking Miralax and stool softeners - not feeling well - symptoms for >2 months - started with headaches, bad headaches that keep him up at night - he is taking Na pills daily to keep Na level up'- reports he does not have lung cancer - Na dropped and BP elevated - nausea, trouble eating - has been taking anti nausea medication, taking up to 12 a day, Ondansetron - blood in his stool and in toilet bowel - constipation, taking Miralax and stool softeners - reports it has never been determined why his Na is low, just taking Na tablets to bring it up - dizziness, initially - denies any visual changes - has not been on any steroids - denies the use of magic mushrooms in the past year (psilocybin and psilocin) - kratom capsules for abdominal pain - has decreased use but still taking - thought maybe this was contributing to constipation - denies any family h/o colon CA 06/17/2025 Na 124 05/29/2025 123 05/20/2025 Na 118 05/05/2025 Na 127 05/04/2025 Na 121 05/03/2025 Na 119 02/04/2024 Na 138 05/03/2025 Na 142 ROS Const Constitutional: No fatigue, fever(s) or weight change ENT ENT: No difficulty swallowing Gastro GI: Positive for change in bowel habits, constipation, diarrhea, Blood in stool, nausea/dyspepsia and vomiting; No abdominal pain, belching, bloating, change in stool character, coffee ground emesis, cramping, heartburn, difficulty swallowing, feeling full early, excessive flatus, incontinent of stools, Vomiting blood/hematemesis, loose stools, Black,tarry stools, pain with swallowing or other Musc Musculoskeletal: Positive for joint pain, back pain, joint swelling, muscle cramps and Arthritis Skin Skin: No yellowing of the eye or itchy eyes Psych Psychiatric: No anxiety and Positive for depression Endo Endocrine: No fatigue or weight lock (more content not included)... Normal [facility] Glomerular filtration rate ( GFR) estimation/1.73 sq m using serum, plasma, or whole bOrdered By: Elizabet Diop on 07-17-2025 GFR/1.73 sq M.predicted among non-blacks MDRD (S/P/Bld) [Vol rate/Area] 104 mL/min/{1.73_m2} Normal >60 [facility] Comment on above: mL/min/1.73m2 CKD-EP I Creatinine Equation (2020) Result Comment: mL/m in/1.73m2 CKD-EPI Creatinine Equation (2020) Performed By: #### L 501.9520, L500.2500, L509.6001 ####[facility] [address] [place], [address] L509.6001on 07-17-2025 CORTISOL 6.83 ug/dL Normal 6.02-18.40 [facility] Comment on above: Performed By: #### L 500.2500, L501.4021, L100.0100 #### [facility] [address] [place], [address] Potassium measurement (mass/ volume)Ordered By: Elizabet Diop on 07-17-2025 Potassium (Unsp spec) [Mass/Vol] 3.8 mmol/L 3.3-5.1 [facility] Serum creatinine measurement (mass/volume)Ordered By: Elizabet Diop on 07-17-2025 Creatinine [Mass/Vol] 0.82 mg/dL Normal 0.70-1.20 [facility] Comment on above: Performed By: #### L 501.9520, L500.2500, L509.6001 ####[facility] [address] [place], [address] Serum glucose measurement (m ass/volume)Ordered By: Elizabet Diop on 07-17-2025 Glucose [Mass/Vol] 99 mg/dL Normal 70-99 [facility] Comment on above: Performed By: #### L 501.9520, L500.2500, L509.6001 ####[facility] [address] [place], [address] Serum or plasma calcium pepe urement (mass/volume)Ordered By: Elizabet Diop on 07-17-2025 Calcium [Mass/Vol] 9.2 mg/dL Normal 7.6-11.0 [facility] Comment on above: Performed By: #### L 501.9520, L500.2500, L509.6001 ####[facility] [address] [place], [address] Serum or plasma cortisol cem surement (mass/volume)Ordered By: Elizabet Diop on 07-17-2025 Cortisol [Mass/Vol] 6.83 ug/dL 6.02-18.40 [facility] Serum or plasma urea nitroge n measurement (mass/volume)Ordered By: Elizabet Diop on 07-17-2025 Urea nitrogen [Mass/Vol] 4 mg/dL Normal 4-19 [facility] Comment on above: Performed By: #### L 501.9520, L500.2500, L509.6001 ####[facility] [address] [place], [address] Sodium levelOrdered By: Ananya Diop on 07-17-2025 Sodium [Moles/Vol] 123 mmol/L Low 133-145 [facility] Comment on above: Performed By: #### L 501.9520, L500.2500, L509.6001 ####[facility] [id number] [place], [address] TSH DL <= 0.005 mIU/L QnOrde red By: Elizabet Diop on 07-17-2025 TSH Qn 1.670 uIU/mL 0.300-4.200 [facility] Thyroid Stim Hormone (TSH)on 07-17-2025 TSH 1.670 uIU/mL Normal 0.300-4.200 [facility] Comment on above: Performed By: #### L 501.9520, L500.2500, L509.6001 ####[facility] [id number] [place], [address] Abdomen Single Viewon 2024 Abdomen Single View [facility] Imaging Services [address] [place] [address] Abdomen Single View MR#: [id number] Acct: [id number] Name: LYNNETTE GONG Rep #: [id number] : 1970 M 54 From: Rodri Pagan MD PCP: UMAIR Taveras Status: REG ER Study: Abdomen Single View Date of Exam: 06/23/25 Exam# [id number] Ordering Dr: Juan Rush DO PROCEDURE: ABDOMEN SINGLE VIEW 06/23/2025 REASON FOR EXAM: CONSTIPATION TECHNIQUE: ABDOMEN SINGLE VIEW COMPARISON: Abdominal radiographs 06/17/2025. FINDINGS: Only the lower abdomen/pelvis is imaged on this exam. Visualized bowel gas pattern is nonobstructive. There appears to be stool within the rectum, possibly indicating constipation. Osseous structures appear intact and within normal limits. No unusual calcific density. RAD/Abdomen Single View IMPRESSION: Limited study. Similar fecal load within the rectum may indicate constipation.. Reading Location: [id number] CC: JUMPBASTING MACHINE OPERATOR-C Deborah Roa; Dr. Juan Rush DO Spooler Operator Automatic: Signed Normal [facility] Emergency Department Summary on 06-23-2025 Emergency Department Summary [facility] Medical Records Department [address] [place] [address] Emergency Department Summary 06/23/25 MR#: [id number] Acct: [id number] Name: LYNNETTE GONG Rep #: [id number] : 1970 54 From: Juan Salinas PCP: UMAIR Taveras Status:DEP ER Location: ED HPI HPI - GI History of Present Illness Chief Complaint: Constipation Informant: patient Narrative Narrative: Presents for constipation. Typically has normal bowel movement for last month's change. [id number]-[id number] stool softeners and MiraLAX. Saw his primary care office last week outpatient x- ray reported constipation. Increase his stool softener use however no bowel movements he is passing gas. Denies any abdominal surgery. No recent surgeries. Discussed in further he does take kratom for pain for the last 2 years he has had increasing intermittent doses in the last month. Deals with knee and back pain. Called his PCP office was told to go to emergency room. Denies fevers denies abdominal pain. Denies urinary symptoms. Prior similar symptoms: Yes PFSH PFSH Medical History Tobacco use disorder, continuous Encounter for screening for malignant neoplasm of lung Constipation Chronic pain Smoker Migraines TIA (transient ischemic attack) HTN (hypertension) Morbid obesity Home Medications ???Medication ???Instructions ???Recorded ???Last Taken ???Type losartan 100 mg tablet 100 mg PO DAILY #30 tabs 05/05/25 Unknown Rx amlodipine 10 mg tablet 10 mg PO DAILY 06/23/25 Unknown Hi story ondansetron 4 mg disintegrating 4 mg PO Q8H PRN PRN Nausea #10 tab s 06/23/25 Unknown Rx tablet Allergy/AdvReac Type Severity Reaction Status Date / Time No Known Allergies Allergy Verified 06/23/25 15:13 Surgical History History of right knee joint replacement Social History Smoking Status: Current every day smoker tobacco type: cigarettes alcohol intake: never substance use type: does not use ROS ROS ED Constitutional Constitutional ED: Denies fever(s) Cardiovascular Cardiovascular: Denies chest pain Respiratory/Chest Respiratory/Chest: Denies cough Gastrointestinal Gastrointestinal: Reports constipation; Denies abdominal pain, diarrhea or vomiting Musculoskeletal Musculoskeletal: Denies none Integumentary Denies rash or wounds Neurologic Neurologic: Denies weakness EXAM Physical Exam Const Vital Signs: 06/23/25 15:12 06/23/25 17:11 06/23/25 17:47 Temperature 98 F 98.1 F Temperature Source Oral Pulse Rate 77 78 79 Respiratory Rate 18 22 H 20 H Blood Pressure 187/93 H 131/80 H Blood Pressure Mean 124 97 Pulse Ox 98 98 98 Oxygen Delivery Method Room Air Room Air Positive well nourished and well developed General Appearance ED: well developed and NAD HEENT Reports moist mucous membranes normocephalic and atraumatic Eyes General Eye ED: Yes normal appearance of both eyes Neck full ROM Chest Wall Chest: Negative for tenderness Resp normal respiratory effort and normal air movement Effort and Inspection: symmetric chest movement; Negative for respiratory distress Cardio regular rate, regular rhythm and no murmurs Peripheral Pulses: pulses 2+ throughout GI normal to inspection, nondistended, normoactive bowel sounds and non-tender GI Narrative: Rectum: No hemorrhoids. Digital rectal exam could not palpate any impacted stools. Palpation: Negative for guarding or rebound tenderness present Extremity normal to inspection General Extremety ED: Negative for edema or tenderness General Extremity: Negative for edema Neuro oriented x3 and no sensory deficits noted Sensorium / Orientation: awake and alert Skin no rashes or lesions noted and no wounds MDM MDM MDM Narrative Medical decision making narrative: Interventions / MDM: Differential diagnosis: Constipation. Diagnosis considered but do not suspect: No clinical diverticulitis. No clinical obstruction. My EKG interpretation: N/A Imaging independently reviewed and interpreted by myself: KUB: No stool noted in the rectum. External documents reviewed: N/A Test considered but not ordered:N/A ED course: Patient increasing constipation likely from his increased kratom use which she has opiate like substance. Nonsurgical abdomen. Rectal exam could not feel any impaction distally. Will check KUB plan for enema. KUB did note stools more towards the rectal vault. Soapsuds enema was ordered. He states only fluid output. He is nontoxic. Reported nausea. No clinical obstruction. There is no surgical history. Discussed with patient using his MiraLAX cup full water with 1 scoop every hour until b (more content not included)... Normal [facility] Abdomen Single Viewon 2024 Abdomen Single View [facility] Imaging Services [address] [place], [place] [id number] Abdomen Single View MR#: [id number] Acct: [id number] Name: LYNNETTE GONG Rep #: [id number] : 1970 M 54 From: Lynnette Rush MD PCP: UMAIR Taveras Status: REG CLI Study: Abdomen Single View Date of Exam: 06/17/25 Exam# [id number] Ordering Dr: Deborah Roa JUMPBASTING MACHINE OPERATORLaurel EXAM: XR Abdomen, 1 View CLINICAL INDICATION: CONSTIPATION, MELENA, NAUSEA TECHNIQUE: Frontal supine view of the abdomen/pelvis. COMPARISON: No relevant prior studies available. FINDINGS: GASTROINTESTINAL TRACT: Fecal retention in the colon consistent with constipation. No dilation. BONES/JOINTS: Unremarkable. No acute fracture. RAD/Abdomen Single View IMPRESSION: Fecal retention in the colon consistent with constipation. Reading Location: [facility] CC: JUMPBASTING MACHINE OPERATOR-C Deborah Roa Spooler Operator Automatic: Signed Normal [facility] Absolute lymphocyte countOrd ered By: Deborah Roa on 06-17-2025 Lymphocytes Auto (Unsp spec) [#/Vol] 1.90 10*3/uL 0.83-4.51 [facility] Absolute neutrophil countOrd ered By: Deborah Roa on 06-17-2025 Neutrophils (Bld) [#/Vol] 8.0 10*3/uL High 2.0-7.7 [facility] Anion gap in Serum or Plasma Ordered By: Deborah Roa on 06-17-2025 Anion gap [Moles/Vol] 13 mmol/L 5-15 [facility] Automated lymphocyte count a s percentage of total leukocytesOrdered By: Deborah Roa on 06-17-2025 Lymphocytes/100 WBC Auto (Unsp spec) 17.1 % Low 19-41 [facility] BUN/creatinine ratioOrdered By: Deborah Roa on 06-17-2025 Urea nitrogen/Creatinine [Mass ratio] 10.7 mg/mg 10- [facility] Basic Metabolic Profile (BMP )on 06-17-2025 BUN/CRE 10.7 RATIO Normal - [facility] Comment on above: Performed By: #### L 500.2500, L501.4021, L100.0100 #### [facility] [address] [place], [address] Calcium [Mass/Vol] 9.7 mg/dL Normal 7.6-11.0 [facility] Comment on above: Performed By: #### L 500.2500, L501.4021, L100.0100 #### [facility] [address] [place], [address] Chloride [Moles/Vol] 89 mmol/L Low 98-108 [facility] Comment on above: Performed By: #### L 500.2500, L501.4021, L100.0100 #### [facility] [address] [place], [address] CO2 [Moles/Vol] 21.8 mmol/L Normal 21.0-32.0 [facility] Comment on above: Performed By: #### L 500.2500, L501.4021, L100.0100 #### [facility] [address] [place], [address] Creatinine [Mass/Vol] 0.91 mg/dL Normal 0.70-1.20 [facility] Comment on above: Performed By: #### L 500.2500, L501.4021, L100.0100 #### [facility] [address] [place], [address] GAP 13 Normal 5-15 [facility] Comment on above: Performed By: #### L 500.2500, L501.4021, L100.0100 #### [facility] [address] [place], [address] GFR/1.73 sq M.predicted among non-blacks MDRD (S/P/Bld) [Vol rate/Area] 100 mL/min/{1.73_m2} Normal >60 [facility] Comment on above: Result Comment: mL/m in/1.73m2 CKD-EPI Creatinine Equation (2020) Performed By: #### L 500.2500, L501.4021, L100.0100 #### [facility] [address] [place], [address] Glucose [Mass/Vol] 106 mg/dL High 70-99 [facility] Comment on above: Performed By: #### L 500.2500, L501.4021, L100.0100 #### [facility] [address] [place], [address] Potassium [Moles/Vol] 4.6 mmol/L Normal 3.3-5.1 [facility] Comment on above: Performed By: #### L 500.2500, L501.4021, L100.0100 #### [facility] [address] [place], [address] Sodium [Moles/Vol] 124 mmol/L Low 133-145 [facility] Comment on above: Performed By: #### L 500.2500, L501.4021, L100.0100 #### [facility] [address] [place], [address] Urea nitrogen [Mass/Vol] 10 mg/dL Normal 4-19 [facility] Comment on above: Performed By: #### L 500.2500, L501.4021, L100.0100 #### [facility] [address] [place], [address] Basophil percentageOrdered B y: Deborah Roa on 06-17-2025 Basophils/100 WBC (Bld) 0.5 % 0-1 [facility] CBC W/Diff, Automatedon 05-28 Absolute Lymph 1.90 X10 3/uL Normal 0.83-4.51 [facility] Comment on above: Performed By: #### L 500.2500, L501.4021, L100.0100 #### [facility] [address] [place], [address] Absolute Neut 8.0 X10 3/uL High 2.0-7.7 [facility] Comment on above: Performed By: #### L 500.2500, L501.4021, L100.0100 #### [facility] [address] [place], [address] Basophils/100 WBC (Bld) 0.5 % Normal 0-1 [facility] Comment on above: Performed By: #### L 500.2500, L501.4021, L100.0100 #### [facility] [address] [place], [address] Eosinophils/100 WBC (Bld) 0.2 % Normal 0-5 [facility] Comment on above: Performed By: #### L 500.2500, L501.4021, L100.0100 #### [facility] [address] [place], [address] Erythrocyte distribution width (RBC) [Ratio] 13.0 % Normal 11.6-14.6 [facility] Comment on above: Performed By: #### L 500.2500, L501.4021, L100.0100 #### [facility] [address] [place], [address] Hematocrit (Bld) [Volume fraction] 39.4 % Low 40-54 [facility] Comment on above: Performed By: #### L 500.2500, L501.4021, L100.0100 #### [facility] [address] [place], [address] Hemoglobin (Bld) [Mass/Vol] 13.7 g/dL Normal 13.0-16.5 [facility] Comment on above: Performed By: #### L 500.2500, L501.4021, L100.0100 #### [facility] [address] [place], [address] IG% 0.700 Normal 0.0-0.9 [facility] Comment on above: Result Comment: IG% - Immature Granulocytes (promyelocytes, myelocytes and metamyelocytes) > 1% indicates that a LEFT SHIFT is Present. Performed By: #### L 500.2500, L501.4021, L100.0100 #### [facility] [address] [place], [address] Lymphocytes/100 WBC (Bld) 17.1 % Low 19-41 [facility] Comment on above: Performed By: #### L 500.2500, L501.4021, L100.0100 #### [facility] [address] [place], [address] MCH (RBC) [Entitic mass] 28.8 pg Normal 27.0-32.0 [facility] Comment on above: Performed By: #### L 500.2500, L501.4021, L100.0100 #### [facility] [address] [place], [address] MCHC (RBC) [Mass/Vol] 34.8 g/dL Normal 32-36 [facility] Comment on above: Performed By: #### L 500.2500, L501.4021, L100.0100 #### [facility] [address] [place], [address] MCV (RBC) [Entitic vol] 82.8 fL Normal 80-94 [facility] Comment on above: Performed By: #### L 500.2500, L501.4021, L100.0100 #### [facility] [address] [place], [address] Monocytes/100 WBC (Bld) 9.4 % Normal 0-10 [facility] Comment on above: Performed By: #### L 500.2500, L501.4021, L100.0100 #### [facility] [address] [place], [address] Neutrophils/100 WBC (Bld) 72.1 % High 47-70 [facility] Comment on above: Performed By: #### L 500.2500, L501.4021, L100.0100 #### [facility] [address] [place], [address] Nucleated RBC (Bld) [#/Vol] 0 10*3/uL Normal 0-5 [facility] Comment on above: Performed By: #### L 500.2500, L501.4021, L100.0100 #### [facility] [address] [place], [address] Platelet mean volume (Bld) [Entitic vol] 9.5 fL Normal 6.2-12.0 [facility] Comment on above: Performed By: #### L 500.2500, L501.4021, L100.0100 #### [facility] [address] [place], [address] Platelets (Bld) [#/Vol] 384 10*3/uL Normal 150-450 [facility] Comment on above: Performed By: #### L 500.2500, L501.4021, L100.0100 #### [facility] [address] [place], [address] RBC (Bld) [#/Vol] 4.76 10*6/uL Normal 4.6-6.2 [facility] Comment on above: Performed By: #### L 500.2500, L501.4021, L100.0100 #### [facility] [address] [place], [address] RDW SD 39.4 fl Normal 35.1-43.9 [facility] Comment on above: Performed By: #### L 500.2500, L501.4021, L100.0100 #### [facility] [address] [place], [address] WBC (Bld) [#/Vol] 11.1 10*3/uL High 4.4-11.0 [facility] Comment on above: Performed By: #### L 500.2500, L501.4021, L100.0100 #### [facility] [address] [place], [address] Carbon dioxide, total [Moles /volume] in Central venous bloodOrdered By: Deborah Roa on 06-17-2025 CO2 [Moles/Vol] 21.8 mmol/L 21.0-32.0 [facility] Chloride assayOrdered By: Ra jacoby Roa on 06-17-2025 Chloride [Moles/Vol] 89 mmol/L Low 98-108 [facility] Eosinophil percentageOrdered By: Deborah Roa on 06-17-2025 Eosinophils/100 WBC (Bld) 0.2 % 0-5 [facility] Erythrocyte distribution wid th ratioOrdered By: Deborah Roa on 06-17-2025 Erythrocyte distribution width (RBC) [Ratio] 13.0 % 11.6-14.6 [facility] Erythrocyte distribution wid th standard deviationOrdered By: Deborah Roa on 06-17-2025 Erythrocyte distribution width (RBC) [Ratio] 39.4 fl 35.1-43.9 [facility] Glomerular filtration rate ( GFR) estimation/1.73 sq m using serum, plasma, or whole bOrdered By: Deborah Roa on 06-17-2025 GFR/1.73 sq M.predicted among non-blacks MDRD (S/P/Bld) [Vol rate/Area] 100 mL/min/{1.73_m2} >60 [facility] Comment on above: mL/min/1.73m2 CKD-EP I Creatinine Equation (2020) Hematocrit Auto (Bld) [Volum e fraction]Ordered By: Deborah Roa on 06-17-2025 Hematocrit (Bld) [Volume fraction] 39.4 % Low 40-54 [facility] Hemoglobin measurementOrdere d By: Deborah Roa on 06-17-2025 Hemoglobin (Bld) [Mass/Vol] 13.7 g/dL 13.0-16.5 [facility] Immature granulocytes/100 WB C Auto (Bld)Ordered By: Deborahtony Roa on 06-17-2025 Immature granulocytes/100 WBC (Bld) 0.700 % 0.0-0.9 [facility] Comment on above: IG% - Immature Granu locytes (promyelocytes, myelocytes and metamyelocytes) > 1% indicates that a LEFT SHIFT is Present. MCV (mean corpuscular volume ) determinationOrdered By: Deborah Roa on 06-17-2025 MCV (RBC) [Entitic vol] 82.8 fL 80-94 [facility] Mean corpuscular hemoglobin (MCH) determinationOrdered By: Deborah Roa on 06-17-2025 MCH (RBC) [Entitic mass] 28.8 pg 27.0-32.0 [facility] Mean corpuscular hemoglobin concentration (MCHC) determinationOrdered By: Deborah Roa on 06-17-2025 MCHC (RBC) [Mass/Vol] 34.8 g/dL 32-36 [facility] Mean platelet volume determi nationOrdered By: Deborah Roa on 06-17-2025 Platelet mean volume (Bld) [Entitic vol] 9.5 fL 6.2-12.0 [facility] Monocyte percentageOrdered B y: Deborah Roa on 06-17-2025 Monocytes/100 WBC (Bld) 9.4 % 0-10 [facility] Neutrophil percentageOrdered By: Deborah Roa on 06-17-2025 Neutrophils/100 WBC (Bld) 72.1 % High 47-70 [facility] Nucleated red blood cell per centageOrdered By: Deborah Roa on 06-17-2025 Nucleated RBC/100 WBC (Bld) [Ratio] 0 % 0-5 [facility] Platelet countOrdered By: Ra jacoby Roa on 06-17-2025 Platelets (Bld) [#/Vol] 384 10*3/uL 150-450 [facility] Potassium measurement (mass/ volume)Ordered By: Deborah Roa on 06-17-2025 Potassium (Unsp spec) [Mass/Vol] 4.6 mmol/L 3.3-5.1 [facility] RBC Auto (Bld) [#/Vol]Ordere d By: Deborah Roa on 06-17-2025 RBC (Bld) [#/Vol] 4.76 10*6/uL 4.6-6.2 [facility] Serum creatinine measurement (mass/volume)Ordered By: Deborah Roa on 06-17-2025 Creatinine [Mass/Vol] 0.91 mg/dL 0.70-1.20 [facility] Serum glucose measurement (m ass/volume)Ordered By: Deborah Roa on 06-17-2025 Glucose [Mass/Vol] 106 mg/dL High 70-99 [facility] Serum or plasma calcium pepe urement (mass/volume)Ordered By: Deborah Roa on 06-17-2025 Calcium [Mass/Vol] 9.7 mg/dL 7.6-11.0 [facility] Serum or plasma urea nitroge n measurement (mass/volume)Ordered By: Deborah Roa on 06-17-2025 Urea nitrogen [Mass/Vol] 10 mg/dL 4-19 [facility] Sodium levelOrdered By: Gale Roa on 06-17-2025 Sodium [Moles/Vol] 124 mmol/L Low 133-145 [facility] White blood cell (WBC) count Ordered By: Deborah Roa on 06-17-2025 WBC (Bld) [#/Vol] 11.1 10*3/uL High 4.4-11.0 [facility] Low Dose CT Lung Screeningon 06-10-[address] Lung Screening [facility] Imaging Services [address] [place] [id number] Lung Screening MR#: [id number] Acct: [id number] Name: LYNNETTE GONG Rep #: [id number] : 1970 M 54 From: Roger sena MD PCP: UMAIR Taveras Status: REG CLI Study: Low Dose CT Lung Screening Date of Exam: 06/10 Exam# [id number] Ordering Dr: Anay Bull NP, NP PROCEDURE: LOW DOSE CT LUNG SCREENING 06/10/2025 REASON FOR EXAM: LUNG CANCER SCREENING Patient has smoked 1-1/2-2 packs per day for 37 years. TECHNIQUE: Coronal and Sagittal reconstruction series were provided. One or more dose reduction techniques were used (e.g., Automated exposure control, adjustment of the mA and/or kV according to patient size, use of iterative reconstruction technique). REFERENCE LINK: [facility] Lung-RADS RADIATION DOSE SUMMARY: CTDlvol: 3.18 mGy DLP: 104.43 mGycm COMPARISON: Prior chest radiograph dated May 03, 2025. FINDINGS: PULMONARY NODULES: (Only nodules >3mm are reported) Nodules described below are on series 1 unless otherwise specified. Pulmonary Nodules: No pulmonary nodules seen. Hardware:None Lymph Nodes:None Heart and Vasculature:The heart is nonenlarged. Coronary Artery Calcifications: Absent Lungs and Airways: Mild emphysematous changes are present. Pleura:No evidence of pleural effusion Upper Abdomen:Unremarkable Bones:Degenerative changes of the thoracic spine. CT/Low Dose CT Lung Screening IMPRESSION: No suspicious pulmonary nodule is seen. Coronary artery calcification (CAC) is is absent Lung-RADS Category: 2 BENIGN (BASED ON IMAGING FEATURES OR INDOLENT BEHAVIOR). RECOMMEND 12-MONTH SCREENING LDCT. Other Significant Findings: Reading Location: [facility] CC: UMAIR Roa; UMAIR Bull Spooler Operator Automatic: Signed Normal [facility] Oncology Visit Reporton 05-27 Oncology Visit Report [facility] [address] [place] [id number] OFFICE VISIT Date of Service: 06/10/25 1258 MR#: [id number] Acct: [id number] Name: LYNNETTE GONG Rep #: [id number] : 1970 From: Anay Bull NP JUMPBASTING MACHINE OPERATOR [place] Age/Sex: 54/M Location: [facility] [place] Status: Signed HPI HPI Reviewed eligibility criteria: 54 year old M with a 38 pack year smoking history (1-1.5 ppd x 38 years). Smoking Status: Current every day smoker Decision Making Engaged in shared decision making visit utilizing a visual aid. Discussed the risks and benefits of lung cancer screening including the total radiation exposure, false positive rate, over diagnosis and potential need for follow-up diagnostic testing all associated with low-dose chest CT. Comorbidities HTN, obesity ROS Const Denies anorexia, Denies fatigue, Denies headache(s), Denies poor appetite and Denies weight loss ENT Denies headache(s) Card Denies chest pain, Reports dyspnea on exertion and Denies palpitations Resp Reports cough (nonproductive ), Reports dyspnea on exertion, Denies hemoptysis and Denies wheezing GI Reports system reviewed and no additional complaints, except as documented Reports system reviewed and no additional complaints, except as documented Musc Reports system reviewed and no additional complaints, except as documented Skin/Breast Reports system reviewed and no additional complaints, except as documented Neuro Yes system reviewed and no additional complaints, except as documented and No headache(s) Psych Reports system reviewed and no additional complaints, except as documented Endo Reports system reviewed and no additional complaints, except as documented, Denies fatigue and Denies palpitations Ankit/Lymph Reports system reviewed and no additional complaints, except as documented Aller/Immun Denies wheezing Exam Const Orientation: alert and oriented x3 [facility] Head: normocephalic and atraumatic Neck Neck: trachea midline, supple and no lymphadenopathy noted Resp Effort Inspection: normal respiratory effort and symmetric chest movement Auscultation: Bilateral: Clear to Auscultation Cardio Rate: regular rate Rhythm: regular rhythm Heart Sounds: S1 normal and S2 normal Psych Affect: normal affect Speech and Movement: speech and movement normal Results Results 06/10/[address] Lung Screening IMPRESSION: No suspicious pulmonary nodule is seen. Coronary artery calcification (CAC) is is absent Lung-RADS Category: 2 BENIGN (BASED ON IMAGING FEATURES [facility]). RECOMMEND 12-MONTH SCREENING LDCT. Intake Vital Signs 05/12/25 13:30 06/10/25 13:03 Height 5 ft 7 in 5 ft 7 in Weight: 323 lb 6 oz BMI 50.6 BP 110/71 Blood Pressure Location Lt brachial Position Sitting Respiration 18 Pulse 75 Pulse Source Monitor Temp 98.4 F Temp Source Temporal Pulse Oximetry (%) 96 Oxygen Delivery Method room air Intake Visit Reasons: screening Is patient in pain?: No Allergies No Known Allergies Allergy (Verified 06/10/25 13:02) Medications ???Medication ???Instructions ???Recorded ???Confirmed ???Type losartan 100 mg tablet 100 mg PO DAILY #30 tabs 05/05/25 06/10/25 Rx amlodipine 5 mg tablet 5 mg PO QDAY 05/12/25 06/10/25 His renettay [facility] Medical History (Updated 06/10/25 @ 14:29 by Anay Bull JUMPBASTING MACHINE OPERATOR, JUMPBASTING MACHINE OPERATOR-C) Tobacco use disorder, continuous Encounter for screening for malignant neoplasm of lung Constipation Chronic pain Smoker Migraines TIA (transient ischemic attack) HTN (hypertension) Morbid obesity Surgical History History of right knee joint replacement Social History Smoking Status: Current every day smoker tobacco type: cigarettes alcohol intake: never substance use type: does not use Assessment and Plan (No Qualifiers) Assessment and Plan (1) Encounter for screening for malignant neoplasm of lung: Status: Acute Plan: 1. Per LUNG RADS category 2 a LDCT scan is recommended in 12 months. Patient is made aware images may be subject to multidisciplinary review and if alternate recommendations for screening are advised, he will be contacted via phone. 2. Other findings:mild emphysema. Advised routine follow up with his pcp. (2) Tobacco use disorder, continuous: Status: Acute Plan: A 12 minute, face to face discussion occurred with the patient regarding smoking cessation. Risks of continued tobacco abuse was covered such as heart disease, stroke, cancer, and emphysema, among others. The many health benefits quitting, was discussed and the patient was educated on the fact that smokers lose an average of 10 minutes of life for every cigarette smoked. We d (more content not included)... Normal [facility] Anion gap in Serum or Plasma Ordered By: Deborah Roa on 05-29-2025 Anion gap [Moles/Vol] 10 mmol/L 5- [facility] BUN/creatinine ratioOrdered By: Deborah Roa on 05-29-2025 Urea nitrogen/Creatinine [Mass ratio] 15.7 mg/mg - [facility] Basic Metabolic Profile (BMP )on 05-29-2025 BUN/CRE 15.7 RATIO Normal - [facility] Comment on above: Performed By: #### L 500.2500, L501.4021, L100.0100 #### [facility] [address] [place], [address] Calcium [Mass/Vol] 9.1 mg/dL Normal 7.6-11.0 [facility] Comment on above: Performed By: #### L 500.2500, L501.4021, L100.0100 #### [facility] [address] [place], [address] Chloride [Moles/Vol] 90 mmol/L Low 98-108 [facility] Comment on above: Performed By: #### L 500.2500, L501.4021, L100.0100 #### [facility] [address] [place], [address] CO2 [Moles/Vol] 23.5 mmol/L Normal 21.0-32.0 [facility] Comment on above: Performed By: #### L 500.2500, L501.4021, L100.0100 #### [facility] [address] [place], [address] Creatinine [Mass/Vol] 0.75 mg/dL Normal 0.70-1.20 [facility] Comment on above: Performed By: #### L 500.2500, L501.4021, L100.0100 #### [facility] [address] [place], [address] GAP 10 Normal - [facility] Comment on above: Performed By: #### L 500.2500, L501.4021, L100.0100 #### [facility] [address] [place], [address] GFR/1.73 sq M.predicted among non-blacks MDRD (S/P/Bld) [Vol rate/Area] 107 mL/min/{1.73_m2} Normal >60 [facility] Comment on above: Result Comment: mL/m in/1.73m2 CKD-EPI Creatinine Equation (2020) Performed By: #### L 500.2500, L501.4021, L100.0100 #### [facility] [address] [place], [address] Glucose [Mass/Vol] 99 mg/dL Normal 70-99 [facility] Comment on above: Performed By: #### L 500.2500, L501.4021, L100.0100 #### [facility] [address] [place], [address] Potassium [Moles/Vol] 4.6 mmol/L Normal 3.3-5.1 [facility] Comment on above: Performed By: #### L 500.2500, L501.4021, L100.0100 #### [facility] [address] [place], [address] Sodium [Moles/Vol] 123 mmol/L Low 133-145 [facility] Comment on above: Performed By: #### L 500.2500, L501.4021, L100.0100 #### [facility] [address] [place], [address] Urea nitrogen [Mass/Vol] 12 mg/dL Normal 4-19 [facility] Comment on above: Performed By: #### L 500.2500, L501.4021, L100.0100 #### [facility] [address] [place], [address] Carbon dioxide, total [Moles /volume] in Central venous bloodOrdered By: Deborah Roa on 05-29-2025 CO2 [Moles/Vol] 23.5 mmol/L 21.0-32.0 [facility] Chloride assayOrdered By: Ra jacoby Roa on 05-29-2025 Chloride [Moles/Vol] 90 mmol/L Low 98-108 [facility] Glomerular filtration rate ( GFR) estimation/1.73 sq m using serum, plasma, or whole bOrdered By: Deborah Roa on 05-29-2025 GFR/1.73 sq M.predicted among non-blacks MDRD (S/P/Bld) [Vol rate/Area] 107 mL/min/{1.73_m2} >60 [facility] Comment on above: mL/min/1.73m2 CKD-EP I Creatinine Equation (2020) Potassium measurement (mass/ volume)Ordered By: Deborah Roa on 05-29-2025 Potassium (Unsp spec) [Mass/Vol] 4.6 mmol/L 3.3-5.1 [facility] Serum creatinine measurement (mass/volume)Ordered By: Deborah Roa on 05-29-2025 Creatinine [Mass/Vol] 0.75 mg/dL 0.70-1.20 [facility] Serum glucose measurement (m ass/volume)Ordered By: Deborah Roa on 05-29-2025 Glucose [Mass/Vol] 99 mg/dL 70-99 [facility] Serum or plasma calcium pepe urement (mass/volume)Ordered By: Deborah Roa on 05-29-2025 Calcium [Mass/Vol] 9.1 mg/dL 7.6-11.0 [facility] Serum or plasma urea nitroge n measurement (mass/volume)Ordered By: Deborah Roa on 05-29-2025 Urea nitrogen [Mass/Vol] 12 mg/dL 4-19 [facility] Sodium levelOrdered By: Gale Roa on 05-29-2025 Sodium [Moles/Vol] 123 mmol/L Low 133-145 [facility] Anion gap in Serum or Plasma Ordered By: Deborah Roa on 05-20-2025 Anion gap [Moles/Vol] 11 mmol/L 5-15 [facility] BUN/creatinine ratioOrdered By: Deborah Roa on 05-20-2025 Urea nitrogen/Creatinine [Mass ratio] 6.7 mg/mg Low 10-20 [facility] Basic Metabolic Profile (BMP )on 05-20-2025 BUN/CRE 6.7 RATIO Low - [facility] Comment on above: Performed By: #### L 500.2500, L501.4021, L100.0100 #### [facility] [address] [place], [address] Calcium [Mass/Vol] 8.9 mg/dL Normal 7.6-11.0 [facility] Comment on above: Performed By: #### L 500.2500, L501.4021, L100.0100 #### [facility] [address] [place], [address] Chloride [Moles/Vol] 83 mmol/L Low 98-108 [facility] Comment on above: Performed By: #### L 500.2500, L501.4021, L100.0100 #### [facility] [address] [place], [address] CO2 [Moles/Vol] 23.2 mmol/L Normal 21.0-32.0 [facility] Comment on above: Performed By: #### L 500.2500, L501.4021, L100.0100 #### [facility] [address] [place], [address] Creatinine [Mass/Vol] 0.69 mg/dL Low 0.70-1.20 [facility] Comment on above: Performed By: #### L 500.2500, L501.4021, L100.0100 #### [facility] [address] [place], [address] GAP 11 Normal 5-15 [facility] Comment on above: Performed By: #### L 500.2500, L501.4021, L100.0100 #### [facility] [address] [place], [address] GFR/1.73 sq M.predicted among non-blacks MDRD (S/P/Bld) [Vol rate/Area] 109 mL/min/{1.73_m2} Normal >60 [facility] Comment on above: Result Comment: mL/m in/1.73m2 CKD-EPI Creatinine Equation (2020) Performed By: #### L 500.2500, L501.4021, L100.0100 #### [facility] [address] [place], [address] Glucose [Mass/Vol] 105 mg/dL High 70-99 [facility] Comment on above: Performed By: #### L 500.2500, L501.4021, L100.0100 #### [facility] [address] [place], [address] Potassium [Moles/Vol] 4.3 mmol/L Normal 3.3-5.1 [facility] Comment on above: Performed By: #### L 500.2500, L501.4021, L100.0100 #### [facility] [address] [place], [address] Sodium [Moles/Vol] 118 mmol/L Invalid Interpretation Code 133-145 [facility] Comment on above: Result Comment: Crit ical Result(s) Called at: by:??Results read back by same. CALLED OFFICE AND LEFT MESSAGE AT 1622 Critical Result(s) Called at: by:??Results read back by same. Performed By: #### L 500.2500, L501.4021, L100.0100 #### [facility] [address] [place], [address] Urea nitrogen [Mass/Vol] 5 mg/dL Normal 4-19 [facility] Comment on above: Performed By: #### L 500.2500, L501.4021, L100.0100 #### [facility] [address] [place], [address] Carbon dioxide, total [Moles /volume] in Central venous bloodOrdered By: Deborah Roa on 05-20-2025 CO2 [Moles/Vol] 23.2 mmol/L 21.0-32.0 [facility] Chloride assayOrdered By: Ra jacoyb Roa on 05-20-2025 Chloride [Moles/Vol] 83 mmol/L Low 98-108 [facility] Glomerular filtration rate ( GFR) estimation/1.73 sq m using serum, plasma, or whole bOrdered By: Deborah Roa on 05-20-2025 GFR/1.73 sq M.predicted among non-blacks MDRD (S/P/Bld) [Vol rate/Area] 109 mL/min/{1.73_m2} >60 [facility] Comment on above: mL/min/1.73m2 CKD-EP I Creatinine Equation (2020) Potassium measurement (mass/ volume)Ordered By: Deborah Roa on 05-20-2025 Potassium (Unsp spec) [Mass/Vol] 4.3 mmol/L 3.3-5.1 [facility] Serum creatinine measurement (mass/volume)Ordered By: Deborah Roa on 05-20-2025 Creatinine [Mass/Vol] 0.69 mg/dL Low 0.70-1.20 [facility] Serum glucose measurement (m ass/volume)Ordered By: Deborah Roa on 05-20-2025 Glucose [Mass/Vol] 105 mg/dL High 70-99 [facility] Serum or plasma calcium pepe urement (mass/volume)Ordered By: Deborah Roa on 05-20-2025 Calcium [Mass/Vol] 8.9 mg/dL 7.6-11.0 [facility] Serum or plasma urea nitroge n measurement (mass/volume)Ordered By: Deborah Roa on 05-20-2025 Urea nitrogen [Mass/Vol] 5 mg/dL 4-19 [facility] Sodium levelOrdered By: Gale Roa on 05-20-2025 Sodium [Moles/Vol] 118 mmol/L Critically low 133-145 [facility] Comment on above: Critical Result(s) C alled at: by: Results read back by same.CALLED OFFICE AND LEFT MESSAGE AT 1622Critical Result(s) Called at: by: Results read back by same. Surgery Visit Reporton 05-12 Surgery Visit Report [facility] [address] [place] [address] OFFICE VISIT Date of Service: 05/12/25 MR#: [id number] Acct: [id number] Name: LYNNETTE GONG Rep #: [id number] : 1970 Provider: Dr. Betty brooke MD Age/Sex: 54/M Location: [facility] Status: Signed Intake Vital Signs 02/04/24 17:39 [...] 5 mg PO QDAY 05/12/25 05/12/25 His tory [facility] Medical History (Updated 05/14/25 @ 08:[address] Btety Steel MD) Constipation Chronic pain Smoker Migraines [...] General: cooperative, comfortable and no acute distress [facility] Head: normocephalic and atraumatic Neck Neck: supple [...] of clear (more content not included)... Normal [facility] Anion gap in Serum or Plasma Ordered By: Kevin Singh on 05-05-2025 Anion gap [Moles/Vol] 10 mmol/L 5-15 [facility] BUN/creatinine ratioOrdered By: Kevin Singh on 05-05-2025 Urea nitrogen/Creatinine [Mass ratio] 7.9 mg/mg Low - [facility] Basic Metabolic Profile (BMP )on 05-05-2025 BUN/CRE 7.9 RATIO Low - [facility] Comment on above: Performed By: #### L 500.2500, L501.4021, L100.0100 #### [facility] [address] [place], [address] Calcium [Mass/Vol] 8.7 mg/dL Normal 7.6-11.0 [facility] Comment on above: Performed By: #### L 500.2500, L501.4021, L100.0100 #### [facility] [address] [place], [address] Chloride [Moles/Vol] 93 mmol/L Low 98-108 [facility] Comment on above: Performed By: #### L 500.2500, L501.4021, L100.0100 #### [facility] [address] [place], [address] CO2 [Moles/Vol] 23.7 mmol/L Normal 21.0-32.0 [facility] Comment on above: Performed By: #### L 500.2500, L501.4021, L100.0100 #### [facility] [address] [place], [address] Creatinine [Mass/Vol] 0.73 mg/dL Normal 0.70-1.20 [facility] Comment on above: Performed By: #### L 500.2500, L501.4021, L100.0100 #### [facility] [address] [place], [address] ECRCL 163.37 ml/min Normal 50-250 [facility] Comment on above: Performed By: #### L 500.2500, L501.4021, L100.0100 #### [facility] [address] [place], [address] GAP 10 Normal 5-15 [facility] Comment on above: Performed By: #### L 500.2500, L501.4021, L100.0100 #### [facility] [address] [place], [address] GFR/1.73 sq M.predicted among non-blacks MDRD (S/P/Bld) [Vol rate/Area] 107 mL/min/{1.73_m2} Normal >60 [facility] Comment on above: Result Comment: mL/m in/1.73m2 CKD-EPI Creatinine Equation (2020) Performed By: #### L 500.2500, L501.4021, L100.0100 #### [facility] [address] [place], [address] Glucose [Mass/Vol] 105 mg/dL High 70-99 [facility] Comment on above: Performed By: #### L 500.2500, L501.4021, L100.0100 #### [facility] [address] [place], [address] Potassium [Moles/Vol] 4.1 mmol/L Normal 3.3-5.1 [facility] Comment on above: Performed By: #### L 500.2500, L501.4021, L100.0100 #### [facility] [address] [place], [address] Sodium [Moles/Vol] 127 mmol/L Low 133-145 [facility] Comment on above: Performed By: #### L 500.2500, L501.4021, L100.0100 #### [facility] [address] [place], [address] Urea nitrogen [Mass/Vol] 6 mg/dL Normal 4-19 [facility] Comment on above: Performed By: #### L 500.2500, L501.4021, L100.0100 #### [facility] [address] [place], [address] Carbon dioxide, total [Moles /volume] in Central venous bloodOrdered By: Kevin Singh on 05-05-2025 CO2 [Moles/Vol] 23.7 mmol/L 21.0-32.0 [facility] Chloride assayOrdered By: Norris Singh on 05-05-2025 Chloride [Moles/Vol] 93 mmol/L Low 98-108 [facility] Electrocardiogram reportOrde red By: Patrick Tian on 05-05-2025 EKG study [facility] [address] [place] [address] 12 Lead EKG 05/03/25 1622 MR#: [id number] Acct: [id number] Name: LYNNETTE GONG Rep #:[id number] : 1970 54 From: Patrick meadows MD Attending Dr: Dr. Kevin Singh DO Status: ADM IN Ordering Dr: Allan Jc DO Date: Location: [facility] Sex: M C Admitted: 05/03/25 [...] block ABNORMAL ECG Confirmed by Patrick Tian ([id number]), art editor TITO FRIAS ([id number]) on 05/05/2025 9:20:06 AM Referred By: Confirmed By: Patrick Tian 05/05/25919 Date _ Patrick Tian MD CC: UMAIR Roa; Dr. Kevin Singh DO; Dr. Allan Jc DO ~ Signed [facility] Other Phone: Glomerular filtration rate ( GFR) estimation/1.73 sq m using serum, plasma, or whole bOrdered By: Kevin Singh on 05-05-2025 GFR/1.73 sq M.predicted among non-blacks MDRD (S/P/Bld) [Vol rate/Area] 107 mL/min/{1.73_m2} >60 [facility] Comment on above: mL/min/1.73m2 CKD-EP I Creatinine Equation (2020) Potassium measurement (mass/ volume)Ordered By: Kevin Singh on 05-05-2025 Potassium (Unsp spec) [Mass/Vol] 4.1 mmol/L 3.3-5.1 [facility] Serum creatinine measurement (mass/volume)Ordered By: Kevin Singh on 05-05-2025 Creatinine [Mass/Vol] 0.73 mg/dL 0.70-1.20 [facility] Serum glucose measurement (m ass/volume)Ordered By: Kevin Singh on 05-05-2025 Glucose [Mass/Vol] 105 mg/dL High 70-99 [facility] Serum or plasma calcium pepe urement (mass/volume)Ordered By: Kevin Singh on 05-05-2025 Calcium [Mass/Vol] 8.7 mg/dL 7.6-11.0 [facility] Serum or plasma urea nitroge n measurement (mass/volume)Ordered By: Kevin Singh on 05-05-2025 Urea nitrogen [Mass/Vol] 6 mg/dL 4-19 [facility] Sodium levelOrdered By: Kevin Singh on 05-05-2025 Sodium [Moles/Vol] 127 mmol/L Low 133-145 [facility] Absolute lymphocyte countOrd ered By: Meseret Minor on 05-04-2025 Lymphocytes Auto (Unsp spec) [#/Vol] 2.08 10*3/uL 0.83-4.51 [facility] Absolute neutrophil countOrd ered By: Meseret Minor on 05-04-2025 Neutrophils (Bld) [#/Vol] 6.0 10*3/uL 2.0-7.7 [facility] Automated lymphocyte count a s percentage of total leukocytesOrdered By: Meseret Minor on 05-04-2025 Lymphocytes/100 WBC Auto (Unsp spec) 22.7 % 19-41 [facility] Basic Metabolic Profile (BMP )on 05-04-2025 BUN/CRE 11.4 RATIO Normal 10-20 [facility] Comment on above: Performed By: #### L 500.2500, L501.4021, L100.0100 #### [facility] [address] [place], [address] Calcium [Mass/Vol] 8.8 mg/dL Normal 7.6-11.0 [facility] Comment on above: Performed By: #### L 500.2500, L501.4021, L100.0100 #### [facility] [address] [place], [address] Chloride [Moles/Vol] 90 mmol/L Low 98-108 [facility] Comment on above: Performed By: #### L 500.2500, L501.4021, L100.0100 #### [facility] [address] [place], [address] CO2 [Moles/Vol] 20.0 mmol/L Low 21.0-32.0 [facility] Comment on above: Performed By: #### L 500.2500, L501.4021, L100.0100 #### [facility] [address] [place], [address] Creatinine [Mass/Vol] 0.64 mg/dL Low 0.70-1.20 [facility] Comment on above: Performed By: #### L 500.2500, L501.4021, L100.0100 #### [facility] [address] [place], [address] ECRCL 187.67 ml/min Normal 50-250 [facility] Comment on above: Performed By: #### L 500.2500, L501.4021, L100.0100 #### [facility] [address] [place], [address] GAP 11 Normal 5-15 [facility] Comment on above: Performed By: #### L 500.2500, L501.4021, L100.0100 #### [facility] [address] [place], [address] GFR/1.73 sq M.predicted among non-blacks MDRD (S/P/Bld) [Vol rate/Area] 112 mL/min/{1.73_m2} Normal >60 [facility] Comment on above: Result Comment: mL/m in/1.73m2 CKD-EPI Creatinine Equation (2020) Performed By: #### L 500.2500, L501.4021, L100.0100 #### [facility] [address] [place], [address] Glucose [Mass/Vol] 114 mg/dL High 70-99 [facility] Comment on above: Performed By: #### L 500.2500, L501.4021, L100.0100 #### [facility] [address] [place], [address] Potassium [Moles/Vol] 4.4 mmol/L Normal 3.3-5.1 [facility] Comment on above: Performed By: #### L 500.2500, L501.4021, L100.0100 #### [facility] [address] [place], [address] Sodium [Moles/Vol] 121 mmol/L Low 133-145 [facility] Comment on above: Performed By: #### L 500.2500, L501.4021, L100.0100 #### [facility] [address] [place], [address] Urea nitrogen [Mass/Vol] 7 mg/dL Normal 4-19 [facility] Comment on above: Performed By: #### L 500.2500, L501.4021, L100.0100 #### [facility] [address] [place], [address] BUN Normal 4-19 [facility] Comment on above: Result Comment: CANC ELLATION ORDER ENTERED Performed By: #### L 500.2500, L501.4021, L100.0100 #### [facility] [address] [place], [address] BUN/CRE Normal 10-20 [facility] Comment on above: Result Comment: CANC ELLATION ORDER ENTERED Performed By: #### L 500.2500, L501.4021, L100.0100 #### [facility] [address] [place], [address] Calcium Normal 7.6-11.0 [facility] Comment on above: Result Comment: CANC ELLATION ORDER ENTERED Performed By: #### L 500.2500, L501.4021, L100.0100 #### [facility] [address] [place], [address] CL Normal 98-108 [facility] Comment on above: Result Comment: CANC ELLATION ORDER ENTERED Performed By: #### L 500.2500, L501.4021, L100.0100 #### [facility] [address] [place], [address] CO2 Normal 21.0-32.0 [facility] Comment on above: Result Comment: CANC ELLATION ORDER ENTERED Performed By: #### L 500.2500, L501.4021, L100.0100 #### [facility] [address] [place], [address] CREAT,SERUM Normal 0.70-1.20 [facility] Comment on above: Result Comment: CANC ELLATION ORDER ENTERED Performed By: #### L 500.2500, L501.4021, L100.0100 #### [facility] [address] [place], [address] eGFR Normal >60 [facility] Comment on above: Result Comment: CANC ELLATION ORDER ENTERED Performed By: #### L 500.2500, L501.4021, L100.0100 #### [facility] [address] [place], [address] GAP Normal 5-15 [facility] Comment on above: Result Comment: CANC ELLATION ORDER ENTERED Performed By: #### L 500.2500, L501.4021, L100.0100 #### [facility] [address] [place], [address] GLU Normal 70-99 [facility] Comment on above: Result Comment: CANC ELLATION ORDER ENTERED Performed By: #### L 500.2500, L501.4021, L100.0100 #### [facility] [address] [place], [address] Potassium Normal 3.3-5.1 [facility] Comment on above: Result Comment: CANC ELLATION ORDER ENTERED Performed By: #### L 500.2500, L501.4021, L100.0100 #### [facility] [address] [place], [address] Basic Metabolic Profile (BMP) Normal 133-145 [facility] Comment on above: Result Comment: CANC ELLATION ORDER ENTERED Performed By: #### L 500.2500, L501.4021, L100.0100 #### [facility] [address] [place], [address] BUN/CRE 9.3 RATIO Low 10-20 [facility] Comment on above: Performed By: #### L 500.2500 #### [facility] [address] [place], [address] Calcium [Mass/Vol] 8.7 mg/dL Normal 7.6-11.0 [facility] Comment on above: Performed By: #### L 500.2500 #### [facility] [address] [place], [address] Chloride [Moles/Vol] 88 mmol/L Low 98-108 [facility] Comment on above: Performed By: #### L 500.2500 #### [facility] Laboratory [address] [place], [address] CO2 [Moles/Vol] 21.4 mmol/L Normal 21.0-32.0 [facility] Comment on above: Performed By: #### L 500.2500 #### [facility] Laboratory [address] [place], [address] Creatinine [Mass/Vol] 0.71 mg/dL Normal 0.70-1.20 [facility] Comment on above: Performed By: #### L 500.2500 #### [facility] Laboratory [address] [place], [address] ECRCL 169.17 ml/min Normal 50-250 [facility] Comment on above: Performed By: #### L 500.2500 #### [facility] Laboratory [address] [place], [address] GAP 12 Normal 5-15 [facility] Comment on above: Performed By: #### L 500.2500 #### [facility] Laboratory [address] [place], [address] GFR/1.73 sq M.predicted among non-blacks MDRD (S/P/Bld) [Vol rate/Area] 108 mL/min/{1.73_m2} Normal >60 [facility] Comment on above: Result Comment: mL/m in/1.73m2 CKD-EPI Creatinine Equation (2020) Performed By: #### L 500.2500 #### [facility] Laboratory [address] [place], [address] Glucose [Mass/Vol] 98 mg/dL Normal 70-99 [facility] Comment on above: Performed By: #### L 500.2500 #### [facility] Laboratory [address] [place], [address] Potassium [Moles/Vol] 3.8 mmol/L Normal 3.3-5.1 [facility] Comment on above: Performed By: #### L 500.2500 #### [facility] Laboratory [address] [place], [address] Sodium [Moles/Vol] 121 mmol/L Low 133-145 [facility] Comment on above: Performed By: #### L 500.2500 #### [facility] Laboratory [address] [place], [address] Urea nitrogen [Mass/Vol] 7 mg/dL Normal 4-19 [facility] Comment on above: Performed By: #### L 500.2500 #### [facility] Laboratory [address] [place], [address] Basophil percentageOrdered B y: Meseret Minor on 05-04-2025 Basophils/100 WBC (Bld) 0.7 % 0-1 [facility] Bilirubin, totalOrdered By: Meseret Minor on 05-04-2025 Bilirubin [Mass/Vol] 0.56 mg/dL 0.00-1.30 [facility] CBC W/Diff, Automatedon Absolute Lymph 2.08 X10 3/uL Normal 0.83-4.51 [facility] Comment on above: Performed By: #### L 500.2500, L501.4021, L100.0100 #### [facility] Laboratory [address] [place], [address] Absolute Neut 6.0 X10 3/uL Normal 2.0-7.7 [facility] Comment on above: Performed By: #### L 500.2500, L501.4021, L100.0100 #### [facility] Laboratory [address] [place], [address] Basophils/100 WBC (Bld) 0.7 % Normal 0-1 [facility] Comment on above: Performed By: #### L 500.2500, L501.4021, L100.0100 #### [facility] Laboratory [address] [place], [address] Eosinophils/100 WBC (Bld) 0.2 % Normal 0-5 [facility] Comment on above: Performed By: #### L 500.2500, L501.4021, L100.0100 #### [facility] Laboratory [address] [place], [address] Erythrocyte distribution width (RBC) [Ratio] 12.6 % Normal 11.6-14.6 [facility] Comment on above: Performed By: #### L 500.2500, L501.4021, L100.0100 #### [facility] Laboratory [address] [place], [address] Hematocrit (Bld) [Volume fraction] 37.9 % Low 40-54 [facility] Comment on above: Performed By: #### L 500.2500, L501.4021, L100.0100 #### [facility] Laboratory [address] [place], [address] Hemoglobin (Bld) [Mass/Vol] 14.0 g/dL Normal 13.0-16.5 [facility] Comment on above: Performed By: #### L 500.2500, L501.4021, L100.0100 #### [facility] Laboratory [address] [place], [address] IG% 0.800 Normal 0.0-0.9 [facility] Comment on above: Result Comment: IG% - Immature Granulocytes (promyelocytes, myelocytes and metamyelocytes) > 1% indicates that a LEFT SHIFT is Present. Performed By: #### L 500.2500, L501.4021, L100.0100 #### [facility] Laboratory [address] [place], [address] Lymphocytes/100 WBC (Bld) 22.7 % Normal 19-41 [facility] Comment on above: Performed By: #### L 500.2500, L501.4021, L100.0100 #### [facility] Laboratory [address] [place], [address] MCH (RBC) [Entitic mass] 30.0 pg Normal 27.0-32.0 [facility] Comment on above: Performed By: #### L 500.2500, L501.4021, L100.0100 #### [facility] Laboratory [address] [place], [address] MCHC (RBC) [Mass/Vol] 36.9 g/dL High 32-36 [facility] Comment on above: Performed By: #### L 500.2500, L501.4021, L100.0100 #### [facility] Laboratory [address] [place], [address] MCV (RBC) [Entitic vol] 81.3 fL Normal 80-94 [facility] Comment on above: Performed By: #### L 500.2500, L501.4021, L100.0100 #### [facility] Laboratory [address] [place], [address] Monocytes/100 WBC (Bld) 10.3 % High 0-10 [facility] Comment on above: Performed By: #### L 500.2500, L501.4021, L100.0100 #### [facility] Laboratory [address] [place], [address] Neutrophils/100 WBC (Bld) 65.3 % Normal 47-70 [facility] Comment on above: Performed By: #### L 500.2500, L501.4021, L100.0100 #### [facility] Laboratory [address] [place], [address] Nucleated RBC (Bld) [#/Vol] 0 10*3/uL Normal 0-5 [facility] Comment on above: Performed By: #### L 500.2500, L501.4021, L100.0100 #### [facility] Laboratory [address] [place], [address] Platelet mean volume (Bld) [Entitic vol] 9.1 fL Normal 6.2-12.0 [facility] Comment on above: Performed By: #### L 500.2500, L501.4021, L100.0100 #### [facility] Laboratory [address] [place], [address] Platelets (Bld) [#/Vol] 252 10*3/uL Normal 150-450 [facility] Comment on above: Performed By: #### L 500.2500, L501.4021, L100.0100 #### [facility] Laboratory [address] [place], [address] RBC (Bld) [#/Vol] 4.66 10*6/uL Normal 4.6-6.2 [facility] Comment on above: Performed By: #### L 500.2500, L501.4021, L100.0100 #### [facility] Laboratory [address] [place], [address] RDW SD 37.4 fl Normal 35.1-43.9 [facility] Comment on above: Performed By: #### L 500.2500, L501.4021, L100.0100 #### [facility] Laboratory [address] [place], [address] WBC (Bld) [#/Vol] 9.2 10*3/uL Normal 4.4-11.0 [facility] Comment on above: Performed By: #### L 500.2500, L501.4021, L100.0100 #### [facility] Laboratory [address] [place], [address] Comprehensive Metabolic Prof ilon 05-04-2025 Albumin [Mass/Vol] 3.9 g/dL Normal 3.5-5.0 [facility] Comment on above: Performed By: #### L 500.2500, L501.4021, L100.0100 #### [facility] Laboratory [address] [place], [address] Albumin/Globulin [Mass ratio] 1.6 {ratio} Normal 0.9-2.4 [facility] Comment on above: Performed By: #### L 500.2500, L501.4021, L100.0100 #### [facility] Laboratory [address] [place], [address] ALK PHOS 56 U/L Normal 40-129 [facility] Comment on above: Performed By: #### L 500.2500, L501.4021, L100.0100 #### [facility] Laboratory [address] [place], [address] ALT [Catalytic activity/Vol] 12 U/L Normal <=46 [facility] Comment on above: Performed By: #### L 500.2500, L501.4021, L100.0100 #### [facility] Laboratory [address] [place], [address] AST [Catalytic activity/Vol] 20 U/L Normal <=37 [facility] Comment on above: Performed By: #### L 500.2500, L501.4021, L100.0100 #### [facility] Laboratory [address] [place], [address] Bilirubin [Mass/Vol] 0.56 mg/dL Normal 0.00-1.30 [facility] Comment on above: Performed By: #### L 500.2500, L501.4021, L100.0100 #### [facility] Laboratory [address] [place], [address] BUN/CRE 9.3 RATIO Low 10-20 [facility] Comment on above: Performed By: #### L 500.2500, L501.4021, L100.0100 #### [facility] Laboratory [address] [place], [address] Calcium [Mass/Vol] 8.7 mg/dL Normal 7.6-11.0 [facility] Comment on above: Performed By: #### L 500.2500, L501.4021, L100.0100 #### [facility] Laboratory [address] [place], [address] Chloride [Moles/Vol] 89 mmol/L Low 98-108 [facility] Comment on above: Performed By: #### L 500.2500, L501.4021, L100.0100 #### [facility] Laboratory [address] [place], [address] CO2 [Moles/Vol] 22.0 mmol/L Normal 21.0-32.0 [facility] Comment on above: Performed By: #### L 500.2500, L501.4021, L100.0100 #### [facility] Laboratory [address] [place], [address] Creatinine [Mass/Vol] 0.62 mg/dL Low 0.70-1.20 [facility] Comment on above: Performed By: #### L 500.2500, L501.4021, L100.0100 #### [facility] Laboratory [address] [place], [address] ECRCL 193.73 ml/min Normal 50-250 [facility] Comment on above: Performed By: #### L 500.2500, L501.4021, L100.0100 #### [facility] Laboratory [address] [place], [address] GAP 11 Normal 5-15 [facility] Comment on above: Performed By: #### L 500.2500, L501.4021, L100.0100 #### [facility] Laboratory [address] [place], [address] GFR/1.73 sq M.predicted among non-blacks MDRD (S/P/Bld) [Vol rate/Area] 113 mL/min/{1.73_m2} Normal >60 [facility] Comment on above: Result Comment: mL/m in/1.73m2 CKD-EPI Creatinine Equation (2020) Performed By: #### L 500.2500, L501.4021, L100.0100 #### [facility] Laboratory [address] [place], [address] Globulin (S) [Mass/Vol] 2.4 g/dL Normal 2.2-4.2 [facility] Comment on above: Performed By: #### L 500.2500, L501.4021, L100.0100 #### [facility] Laboratory [address] [place], [address] Glucose [Mass/Vol] 101 mg/dL High 70-99 [facility] Comment on above: Performed By: #### L 500.2500, L501.4021, L100.0100 #### [facility] Laboratory [address] [place], [address] Potassium [Moles/Vol] 3.8 mmol/L Normal 3.3-5.1 [facility] Comment on above: Performed By: #### L 500.2500, L501.4021, L100.0100 #### [facility] [address] [place], [address] Sodium [Moles/Vol] 123 mmol/L Low 133-145 [facility] Comment on above: Performed By: #### L 500.2500, L501.4021, L100.0100 #### [facility] Laboratory [address] [place], [address] T PROT 6.3 g/dL Normal 5.9-8.4 [facility] Comment on above: Performed By: #### L 500.2500, L501.4021, L100.0100 #### [facility] Laboratory [address] [place], [address] Urea nitrogen [Mass/Vol] 6 mg/dL Normal 4-19 [facility] Comment on above: Performed By: #### L 500.2500, L501.4021, L100.0100 #### [facility] Laboratory [address] [place], [address] Eosinophil percentageOrdered By: Meseret Minor on 05-04-2025 Eosinophils/100 WBC (Bld) 0.2 % 0-5 [facility] Erythrocyte distribution wid th ratioOrdered By: Meseret Minor on 05-04-2025 Erythrocyte distribution width (RBC) [Ratio] 12.6 % 11.6-14.6 [facility] Erythrocyte distribution wid th standard deviationOrdered By: Meseret Minor on 05-04-2025 Erythrocyte distribution width (RBC) [Ratio] 37.4 fl 35.1-43.9 [facility] Hematocrit Auto (Bld) [Volum e fraction]Ordered By: Meseret Minor on 05-04-2025 Hematocrit (Bld) [Volume fraction] 37.9 % Low 40-54 [facility] Hemoglobin measurementOrdere d By: Meseret Minor on 05-04-2025 Hemoglobin (Bld) [Mass/Vol] 14.0 g/dL 13.0-16.5 [facility] Immature granulocytes/100 WB C Auto (Bld)Ordered By: Meseret Minor on 05-04-2025 Immature granulocytes/100 WBC (Bld) 0.800 % 0.0-0.9 [facility] Comment on above: IG% - Immature Granu locytes (promyelocytes, myelocytes and metamyelocytes) > 1% indicates that a LEFT SHIFT is Present. Laboratory - Chemistry and C hemistry - challengeOrdered By: Meseret Minor on 05-04-2025 AST [Catalytic activity/Vol] 20 U/L <38 [facility] MCV (mean corpuscular volume ) determinationOrdered By: Meseret Minor on 05-04-2025 MCV (RBC) [Entitic vol] 81.3 fL 80-94 [facility] Magnesiumon 05-04-2025 Magnesium [Mass/Vol] 1.9 mg/dL Normal 1.5-2.2 [facility] Comment on above: Performed By: #### L 500.2500, L501.4021, L100.0100 #### [facility] Laboratory [address] [place], [address] Magnesium measurement (mass/ volume)Ordered By: Meseret Minor on 05-04-2025 Magnesium (Unsp spec) [Mass/Vol] 1.9 mg/dL 1.5-2.2 [facility] Mean corpuscular hemoglobin (MCH) determinationOrdered By: Meseret Minor on 05-04-2025 MCH (RBC) [Entitic mass] 30.0 pg 27.0-32.0 [facility] Mean corpuscular hemoglobin concentration (MCHC) determinationOrdered By: Meseret Minor on 05-04-2025 MCHC (RBC) [Mass/Vol] 36.9 g/dL High 32-36 [facility] Mean platelet volume determi nationOrdered By: Meseret Minor on 05-04-2025 Platelet mean volume (Bld) [Entitic vol] 9.1 fL 6.2-12.0 [facility] Monocyte percentageOrdered B y: Meseret Minor on 05-04-2025 Monocytes/100 WBC (Bld) 10.3 % High 0-10 [facility] Neutrophil percentageOrdered By: Meseret Minor on 05-04-2025 Neutrophils/100 WBC (Bld) 65.3 % 47-70 [facility] Nucleated red blood cell per centageOrdered By: Meseret Minor on 05-04-2025 Nucleated RBC/100 WBC (Bld) [Ratio] 0 % 0-5 [facility] Osmolality, Urineon 05-04-20 25 OSMOLALITY,UR 181 mOsm/KG Normal [facility] Comment on above: Result Comment: Normal Urine Reference Ranges Random: 50 - 1200 mOsm/kg H20 depending on fluid intake Random: >850 mOsm/kg after 12 hour fluid restriction 24 hour: 300 - 900 mOsm/kg H2O Performed By: #### L 501.7400, L501.5500 #### [facility] Laboratory [address] [place], [address] Phosphoruson 05-04-2025 Phosphate [Mass/Vol] 3.9 mg/dL Normal 2.7-4.5 [facility] Comment on above: Performed By: #### L 500.2500, L501.4021, L100.0100 #### [facility] Laboratory [address] [place], [address] Platelet countOrdered By: Bhavesh Minor on 05-04-2025 Platelets (Bld) [#/Vol] 252 10*3/uL 150-450 [facility] RBC Auto (Bld) [#/Vol]Ordere d By: Meseret Minor on 05-04-2025 RBC (Bld) [#/Vol] 4.66 10*6/uL 4.6-6.2 [facility] Serum globulin measurementOr dered By: Meseret Minor on 05-04-2025 Globulin (S) [Mass/Vol] 2.4 g/dL 2.2-4.2 [facility] Serum or plasma alanine sanchez otransferase (ALT) measurementOrdered By: Meseret Minor on 05-04-2025 ALT [Catalytic activity/Vol] 12 U/L <47 [facility] Serum or plasma albumin pepe urement (mass/volume)Ordered By: Meseret Minor on 05-04-2025 Albumin [Mass/Vol] 3.9 g/dL 3.5-5.0 [facility] Serum or plasma albumin/glob ulin mass ratioOrdered By: Meseret Minor on 05-04-2025 Albumin/Globulin [Mass ratio] 1.6 {ratio} 0.9-2.4 [facility] Serum or plasma alkaline logan sphatase measurementOrdered By: Meseret Minor on 05-04-2025 ALP [Catalytic activity/Vol] 56 U/L 40-129 [facility] Total proteinOrdered By: Magalie Minor on 05-04-2025 Protein [Mass/Vol] 6.3 g/dL 5.9-8.4 [facility] Urine Drug Screen (VISTA)on 05-04-2025 AMPHETAMINES Negative Normal <1000 ng/mL [facility] Comment on above: Performed By: #### L 500.2500, L501.4021, L100.0100 #### [facility] Laboratory [address] [place], [address] BARBITIURATES Negative Normal < 200 ng/mL [facility] Comment on above: Performed By: #### L 500.2500, L501.4021, L100.0100 #### [facility] Laboratory [address] [place], [address] BENZODIAZIPINE Negative Normal < 200 ng/mL [facility] Comment on above: Performed By: #### L 500.2500, L501.4021, L100.0100 #### [facility] Laboratory [address] [place], [address] BUP Ur Drug Scr Negative Normal < 200 ng/mL [facility] Comment on above: Performed By: #### L 500.2500, L501.4021, L100.0100 #### [facility] Laboratory [address] [place], [address] COCAINE Negative Normal < 300 ng/mL [facility] Comment on above: Performed By: #### L 500.2500, L501.4021, L100.0100 #### [facility] Laboratory [address] [place], [address] Fentanyl Negative Normal [facility] Comment on above: Performed By: #### L 500.2500, L501.4021, L100.0100 #### [facility] Laboratory [address] [place], [address] METHADONE Negative Normal < 300 ng/mL [facility] Comment on above: Performed By: #### L 500.2500, L501.4021, L100.0100 #### [facility] Laboratory [address] [place], [address] OPIATES Negative Normal < 300 ng/mL [facility] Comment on above: Performed By: #### L 500.2500, L501.4021, L100.0100 #### [facility] Laboratory [address] [place], [address] OXYCODONE Negative Normal < 100 ng/mL [facility] Comment on above: Performed By: #### L 500.2500, L501.4021, L100.0100 #### [facility] Laboratory [address] [place], [address] PCP Negative Normal < 25 ng/mL [facility] Comment on above: Performed By: #### L 500.2500, L501.4021, L100.0100 #### [facility] Laboratory [address] [place], [address] THC Negative Normal < 50 ng/mL [facility] Comment on above: Performed By: #### L 500.2500, L501.4021, L100.0100 #### [facility] Laboratory [address] [place], [address] Urine Sodiumon 05-04-2025 Sodium (U) [Moles/Vol] 33 mmol/L Normal Not Establ. [facility] Comment on above: Performed By: #### L 501.7400, L501.5500 #### [facility] Laboratory [address] [place], [address] White blood cell (WBC) count Ordered By: Meseret Minor on 05-04-2025 WBC (Bld) [#/Vol] 9.2 10*3/uL 4.4-11.0 [facility] 12 Lead EKGon 05-03-2025 12 Lead EKG [facility] Cardiovascular Services [address] [place] [address] 12 Lead EKG 05/03/25 1622 MR#: [id number] Acct: [id number] Name: LYNNETTE GONG Rep #: [id number] : 1970 54 From: Patrick Tian MD Attending Dr: Dr. Kevin Singh DO Status: ADM IN Ordering Dr: Allan Jc DO Date: 05/03/25 Location: [facility] Sex: M C Admitted: 05/03/25 [...] block ABNORMAL ECG Confirmed by Patrick Tian ([id number]), art editor TITO FRIAS ([id number]) on 05/05/2025 9:20:06 AM Referred By: Confirmed By: Patrick Tian 05/05/25919 Date Patrick Tian MD CC: JUMP[employer]STING MACHINE OPERATOR-C Deborah Roa; Dr. Kevin Singh DO; Dr. Allan Jc DO Signed Normal [facility] Absolute lymphocyte countOrd ered By: Allan Jc on 05-03-2025 Lymphocytes Auto (Unsp spec) [#/Vol] 1.81 10*3/uL 0.83-4.51 [facility] Absolute neutrophil countOrd ered By: Allan Jc on 05-03-2025 Neutrophils (Bld) [#/Vol] 8.9 10*3/uL High 2.0-7.7 [facility] Amphetamine detection with 1 000 ng/mL as cutoffOrdered By: Meseret Minor on 05-03-2025 Amphetamines Screen method >1000 ng/mL Ql (U) Negative < 200 ng/mL [facility] Anion gap in Serum or Plasma Ordered By: Allan Jc on 05-03-2025 Anion gap [Moles/Vol] 13 mmol/L 5-15 [facility] Automated lymphocyte count a s percentage of total leukocytesOrdered By: Allan Jc on 05-03-2025 Lymphocytes/100 WBC Auto (Unsp spec) 15.6 % Low 19-41 [facility] BUN/creatinine ratioOrdered By: Allan Jc on 05-03-2025 Urea nitrogen/Creatinine [Mass ratio] 6.9 mg/mg Low 10-20 [facility] Basic Metabolic Profile (BMP )on 05-03-2025 BUN/CRE 7.6 RATIO Low 10-20 [facility] Comment on above: Performed By: #### L 500.2500, L501.4021, L100.0100 #### [facility] Laboratory [address] [place], [address] Calcium [Mass/Vol] 9.1 mg/dL Normal 7.6-11.0 [facility] Comment on above: Performed By: #### L 500.2500, L501.4021, L100.0100 #### [facility] Laboratory [address] [place], [address] Chloride [Moles/Vol] 85 mmol/L Low 98-108 [facility] Comment on above: Performed By: #### L 500.2500, L501.4021, L100.0100 #### [facility] Laboratory [address] [place], [address] CO2 [Moles/Vol] 22.2 mmol/L Normal 21.0-32.0 [facility] Comment on above: Performed By: #### L 500.2500, L501.4021, L100.0100 #### [facility] Laboratory [address] [place], [address] Creatinine [Mass/Vol] 0.75 mg/dL Normal 0.70-1.20 [facility] Comment on above: Performed By: #### L 500.2500, L501.4021, L100.0100 #### [facility] Laboratory [address] [place], [address] ECRCL 160.33 ml/min Normal 50-250 [facility] Comment on above: Performed By: #### L 500.2500, L501.4021, L100.0100 #### [facility] Laboratory [address] [place], [address] GAP 12 Normal 5-15 [facility] Comment on above: Performed By: #### L 500.2500, L501.4021, L100.0100 #### [facility] Laboratory [address] [place], [address] GFR/1.73 sq M.predicted among non-blacks MDRD (S/P/Bld) [Vol rate/Area] 107 mL/min/{1.73_m2} Normal >60 [facility] Comment on above: Result Comment: mL/m in/1.73m2 CKD-EPI Creatinine Equation (2020) Performed By: #### L 500.2500, L501.4021, L100.0100 #### [facility] Laboratory [address] [place], [address] Glucose [Mass/Vol] 104 mg/dL High 70-99 [facility] Comment on above: Performed By: #### L 500.2500, L501.4021, L100.0100 #### [facility] [address] [place], [address] Potassium [Moles/Vol] 4.5 mmol/L Normal 3.3-5.1 [facility] Comment on above: Performed By: #### L 500.2500, L501.4021, L100.0100 #### [facility] [address] [place], [address] Sodium [Moles/Vol] 119 mmol/L Invalid Interpretation Code 133-145 [facility] Comment on above: Result Comment: Crit ical Result(s) Called at: 05/03/2025-21:28 by: Cuba Varela to Jolly Worthington.??Results read back by same. Performed By: #### L 500.2500, L501.4021, L100.0100 #### [facility] [address] [place], [address] Urea nitrogen [Mass/Vol] 6 mg/dL Normal 4-19 [facility] Comment on above: Performed By: #### L 500.2500, L501.4021, L100.0100 #### [facility] [address] [place], [address] BUN/CRE 6.9 RATIO Low 10-20 [facility] Comment on above: Performed By: #### L 500.2500, L501.4021, L100.0100 #### [facility] [address] [place], [address] Calcium [Mass/Vol] 9.1 mg/dL Normal 7.6-11.0 [facility] Comment on above: Performed By: #### L 500.2500, L501.4021, L100.0100 #### [facility] [address] [place], [address] Chloride [Moles/Vol] 84 mmol/L Low 98-108 [facility] Comment on above: Performed By: #### L 500.2500, L501.4021, L100.0100 #### [facility] [address] [place], [address] CO2 [Moles/Vol] 21.4 mmol/L Normal 21.0-32.0 [facility] Comment on above: Performed By: #### L 500.2500, L501.4021, L100.0100 #### [facility] [address] [place], [address] Creatinine [Mass/Vol] 0.74 mg/dL Normal 0.70-1.20 [facility] Comment on above: Performed By: #### L 500.2500, L501.4021, L100.0100 #### [facility] [address] [place], [address] ECRCL 162.50 ml/min Normal 50-250 [facility] Comment on above: Performed By: #### L 500.2500, L501.4021, L100.0100 #### [facility] [address] [place], [address] GAP 13 Normal 5-15 [facility] Comment on above: Performed By: #### L 500.2500, L501.4021, L100.0100 #### [facility] [address] [place], [address] GFR/1.73 sq M.predicted among non-blacks MDRD (S/P/Bld) [Vol rate/Area] 107 mL/min/{1.73_m2} Normal >60 [facility] Comment on above: Result Comment: mL/m in/1.73m2 CKD-EPI Creatinine Equation (2020) Performed By: #### L 500.2500, L501.4021, L100.0100 #### [facility] [address] [place], [address] Glucose [Mass/Vol] 113 mg/dL High 70-99 [facility] Comment on above: Performed By: #### L 500.2500, L501.4021, L100.0100 #### [facility] [address] [place], [address] Potassium [Moles/Vol] 4.5 mmol/L Normal 3.3-5.1 [facility] Comment on above: Performed By: #### L 500.2500, L501.4021, L100.0100 #### [facility] [address] [place], [address] Sodium [Moles/Vol] 119 mmol/L Invalid Interpretation Code 133-145 [facility] Comment on above: Result Comment: Crit ical Result(s) Called at: 1620 by: SARA to Adin MTAA.??Results read back by same. Performed By: #### L 500.2500, L501.4021, L100.0100 #### [facility] [address] [place], [address] Urea nitrogen [Mass/Vol] 5 mg/dL Normal 4-19 [facility] Comment on above: Performed By: #### L 500.2500, L501.4021, L100.0100 #### [facility] [address] [place], [address] Basophil percentageOrdered B y: Allan Jc on 05-03-2025 Basophils/100 WBC (Bld) 0.5 % 0-1 [facility] Bilirubin Test strip Ql (U)O rdered By: Meseret Minor on 05-03-2025 Bilirubin Ql (U) Negative Negative [facility] CBC W/Diff, Automatedon Absolute Lymph 1.81 X10 3/uL Normal 0.83-4.51 [facility] Comment on above: Performed By: #### L 500.2500, L501.4021, L100.0100 #### [facility] [address] [place], [address] Absolute Neut 8.9 X10 3/uL High 2.0-7.7 [facility] Comment on above: Performed By: #### L 500.2500, L501.4021, L100.0100 #### [facility] [address] [place], [address] Basophils/100 WBC (Bld) 0.5 % Normal 0-1 [facility] Comment on above: Performed By: #### L 500.2500, L501.4021, L100.0100 #### [facility] [address] [place], [address] Eosinophils/100 WBC (Bld) 0.1 % Normal 0-5 [facility] Comment on above: Performed By: #### L 500.2500, L501.4021, L100.0100 #### [facility] [address] [place], [address] Erythrocyte distribution width (RBC) [Ratio] 12.6 % Normal 11.6-14.6 [facility] Comment on above: Performed By: #### L 500.2500, L501.4021, L100.0100 #### [facility] [address] [place], [address] Hematocrit (Bld) [Volume fraction] 41.1 % Normal 40-54 [facility] Comment on above: Performed By: #### L 500.2500, L501.4021, L100.0100 #### [facility] [address] [place], [address] Hemoglobin (Bld) [Mass/Vol] 14.8 g/dL Normal 13.0-16.5 [facility] Comment on above: Performed By: #### L 500.2500, L501.4021, L100.0100 #### [facility] [address] [place], [address] IG% 0.600 Normal 0.0-0.9 [facility] Comment on above: Result Comment: IG% - Immature Granulocytes (promyelocytes, myelocytes and metamyelocytes) > 1% indicates that a LEFT SHIFT is Present. Performed By: #### L 500.2500, L501.4021, L100.0100 #### [facility] [address] [place], [address] Lymphocytes/100 WBC (Bld) 15.6 % Low 19-41 [facility] Comment on above: Performed By: #### L 500.2500, L501.4021, L100.0100 #### [facility] [address] [place], [address] MCH (RBC) [Entitic mass] 29.2 pg Normal 27.0-32.0 [facility] Comment on above: Performed By: #### L 500.2500, L501.4021, L100.0100 #### [facility] [address] [place], [address] MCHC (RBC) [Mass/Vol] 36.0 g/dL Normal 32-36 [facility] Comment on above: Performed By: #### L 500.2500, L501.4021, L100.0100 #### [facility] [address] [place], [address] MCV (RBC) [Entitic vol] 81.2 fL Normal 80-94 [facility] Comment on above: Performed By: #### L 500.2500, L501.4021, L100.0100 #### [facility] [address] [place], [address] Monocytes/100 WBC (Bld) 6.7 % Normal 0-10 [facility] Comment on above: Performed By: #### L 500.2500, L501.4021, L100.0100 #### [facility] [address] [place], [address] Neutrophils/100 WBC (Bld) 76.5 % High 47-70 [facility] Comment on above: Performed By: #### L 500.2500, L501.4021, L100.0100 #### [facility] [address] [place], [address] Nucleated RBC (Bld) [#/Vol] 0 10*3/uL Normal 0-5 [facility] Comment on above: Performed By: #### L 500.2500, L501.4021, L100.0100 #### [facility] [address] [place], [address] Platelet mean volume (Bld) [Entitic vol] 9.0 fL Normal 6.2-12.0 [facility] Comment on above: Performed By: #### L 500.2500, L501.4021, L100.0100 #### [facility] [address] [place], [address] Platelets (Bld) [#/Vol] 313 10*3/uL Normal 150-450 [facility] Comment on above: Performed By: #### L 500.2500, L501.4021, L100.0100 #### [facility] [address] [place], [address] RBC (Bld) [#/Vol] 5.06 10*6/uL Normal 4.6-6.2 [facility] Comment on above: Performed By: #### L 500.2500, L501.4021, L100.0100 #### [facility] [address] [place], [address] RDW SD 37.1 fl Normal 35.1-43.9 [facility] Comment on above: Performed By: #### L 500.2500, L501.4021, L100.0100 #### [facility] [address] [place], [address] WBC (Bld) [#/Vol] 11.6 10*3/uL High 4.4-11.0 [facility] Comment on above: Performed By: #### L 500.2500, L501.4021, L100.0100 #### [facility] [address] [place], [address] Carbon dioxide, total [Moles /volume] in Central venous bloodOrdered By: Allan Jc on 05-03-2025 CO2 [Moles/Vol] 21.4 mmol/L 21.0-32.0 [facility] Chest PA and Lateralon 05-03 Chest PA and Lateral [facility] Imaging Services [address] [place] [address] Chest PA and Lateral MR#: [id number] Acct: [id number] Name: LYNNETTE GONG Rep #: [id number] : 1970 M 54 From: Agnes Degroot nd, MD PCP: UMAIR Taveras Status: REG ER Study: Chest PA and Lateral Date of Exam: 05/03/25 Exam# [id number] Ordering Dr: Allan Jc DO PROCEDURE: CHEST [...] Lateral IMPRESSION: NO ACUTE FINDINGS. Reading Location: [facility] CC: JUMPBASTING MACHINE OPERATOR-C Deborah Roa; Dr. Allan Jc DO Spooler Operator Automatic: Signed Normal [facility] Chloride assayOrdered By: Osiel Jc on 05-03-2025 Chloride [Moles/Vol] 84 mmol/L Low 98-108 [facility] Emergency Department Summary on 05-03-2025 Emergency Department Summary [facility] Medical Records Department [address] [place] [address] Emergency Department Summary 05/03/25 MR#: [id number] Acct: [id number] Name: LYNNETTE GONG Rep #: [id number] : 1970 54 From: Allan Jc DO [...] that he no longer has a headache. [facility] Medical History (Updated 05/03/25 @ 18:[address] Allan Jc, DO) HTN (hypertension) Morbid obesity Home Medications ???Medication [...] following commands knew that he was at [facility] year is 2024 patient [facility] of [...] by radio (more content not included)... Normal [facility] Eosinophil percentageOrdered By: Allan Jc on 05-03-2025 Eosinophils/100 WBC (Bld) 0.1 % 0-5 [facility] Erythrocyte distribution wid th ratioOrdered By: Allan Jc on 05-03-2025 Erythrocyte distribution width (RBC) [Ratio] 12.6 % 11.6-14.6 [facility] Erythrocyte distribution wid th standard deviationOrdered By: Allan Jc on 05-03-2025 Erythrocyte distribution width (RBC) [Ratio] 37.1 fl 35.1-43.9 [facility] Free T3on 05-03-2025 Free T3 [Mass/Vol] 2.8 pg/mL Normal 2.18-3.98 [facility] Comment on above: Performed By: #### L 501.31889, L501.9520, L506.0400 ####[facility] [address] [place], [address] Free [id number] By: Allan silva on 05-03-2025 Free T3 [Mass/Vol] 2.8 pg/mL 2.18-3.98 [facility] Free T3 [Mass/Vol] 2.8 pg/mL 2.18-3.98 [facility] Glomerular filtration rate ( GFR) estimation/1.73 sq m using serum, plasma, or whole bOrdered By: Allan Jc on 05-03-2025 GFR/1.73 sq M.predicted among non-blacks MDRD (S/P/Bld) [Vol rate/Area] 107 mL/min/{1.73_m2} >60 [facility] Comment on above: mL/min/1.73m2 CKD-EP I Creatinine Equation (2020) H AND P Exam - Hospitaliston 05-03-2025 H&P Exam - Hospitalist [facility] Medical Records Department [address] [place] [address] H P Exam - Hospitalist 05/03/25 1806 MR#: [id number] Acct: [id number] Name: LYNNETTE GONG Rep #: [id number] : 1970 54 From: Meseret Minor DO PCP: UMAIR Taveras Status:ADM IN Location: [facility] [id number] HPI - General General Date of Admission: 05/03/25 Date of Service: 05/03/25 Chief Complaint: Elevated blood pressure HPI Narrative LYNNETTE GONG, is a 54 M who presented to the emergency department [facility] on 05/03/2025 with the chief complaint [...] his most recent blood pressure at 159/89. [facility] Medical History HTN (hypertension) Morbid obesity Home [...] other Hematologic/Ly (more content not included)... Normal [facility] Hematocrit Auto (Bld) [Volum e fraction]Ordered By: Allan Jc on 05-03-2025 Hematocrit (Bld) [Volume fraction] 41.1 % 40-54 [facility] Hemoglobin A1con 05-03-2025 HbA1c (Bld) [Mass fraction] 6.0 % High <=5.6 [facility] Comment on above: Result Comment: Norm al < 5.7 % Prediabetic 5.7 - 6.4 % Diabetic >or= 6.5 % Please note range changes. Performed By: #### L 500.2500, L501.4021, L100.0100 #### [facility] [address] [place], [address] Hemoglobin A1c percentageOrd ered By: Allan Jc on 05-03-2025 HbA1c (Bld) [Mass fraction] 6.0 % High <5.7 [facility] Comment on above: Normal < 5.7 % Predi abetic 5.7 - 6.4 % Diabetic >or= 6.5 % Please note range changes. Hemoglobin measurementOrdere d By: Allan Jc on 05-03-2025 Hemoglobin (Bld) [Mass/Vol] 14.8 g/dL 13.0-16.5 [facility] Immature granulocytes/100 WB C Auto (Bld)Ordered By: Allan Jc on 05-03-2025 Immature granulocytes/100 WBC (Bld) 0.600 % 0.0-0.9 [facility] Comment on above: IG% - Immature Granu locytes (promyelocytes, myelocytes and metamyelocytes) > 1% indicates that a LEFT SHIFT is Present. Ketones Test strip Ql (U)Ord ered By: Meseret Minor on 05-03-2025 Ketones Ql (U) Negative Negative [facility] L499.0042on 05-03-2025 Trop T High Sen 9 ng/L Normal <=22 [facility] Comment on above: Performed By: #### L 499.0042 ####[facility] [address] [place], [address] L499.0043on 05-03-2025 Trop T High Sen 9 ng/L Normal <=22 [facility] Comment on above: Performed By: #### L 499.0043 #### [facility] [address] [place], [address] L501.4021on 05-03-2025 Trop T High Sen 9 ng/L Normal <=22 [facility] Comment on above: Performed By: #### L 500.2500, L501.4021, L100.0100 #### [facility] [address] [place], [address] L509.6002on 05-03-2025 CORTISOL 7.33 ug/dL Normal 2.68-10.50 [facility] Comment on above: Performed By: #### L 500.2500, L501.4021, L100.0100 #### [facility] [address] [place], [address] MCV (mean corpuscular volume ) determinationOrdered By: Allan Jc on 05-03-2025 MCV (RBC) [Entitic vol] 81.2 fL 80-94 [facility] Mean corpuscular hemoglobin (MCH) determinationOrdered By: Allan Jc on 05-03-2025 MCH (RBC) [Entitic mass] 29.2 pg 27.0-32.0 [facility] Mean corpuscular hemoglobin concentration (MCHC) determinationOrdered By: Allan Jc on 05-03-2025 MCHC (RBC) [Mass/Vol] 36.0 g/dL 32-36 [facility] Mean platelet volume determi nationOrdered By: Allan Jc on 05-03-2025 Platelet mean volume (Bld) [Entitic vol] 9.0 fL 6.2-12.0 [facility] Microscopic analysis of urin e for red blood cells (RBC)Ordered By: Meseret Minor on 05-03-2025 Microscopic analysis of urine for red blood cells (RBC) 0 SEEN /hpf 0-5 [facility] Monocyte percentageOrdered B y: Allan Jc on 05-03-2025 Monocytes/100 WBC (Bld) 6.7 % 0-10 [facility] Mucus LM Ql (Urine sed)Order ed By: Meseret Minor on 05-03-2025 Mucus Ql (Urine sed) 0 SEEN /hpf [facility] Neutrophil percentageOrdered By: Allan Jc on 05-03-2025 Neutrophils/100 WBC (Bld) 76.5 % High 47-70 [facility] Nitrite Test strip Ql (U)Ord ered By: Meseret Minor on 05-03-2025 Nitrite Ql (U) Negative Negative [facility] No Panel InformationOrdered By: Meseret Minor on 05-03-2025 Urine Buprenorphine Qualitative Negative < 200 ng/mL [facility] Urine Oxycodone Screen Negative < 100 ng/mL [facility] Nucleated red blood cell per centageOrdered By: Allan Jc on 05-03-2025 Nucleated RBC/100 WBC (Bld) [Ratio] 0 % 0-5 [facility] Osmolality urOrdered By: Magalie Minor on 05-03-2025 Osmolality (U) [Osmolality] 181 mOsm/KG >50 [facility] Comment on above: Normal Urine Referen ce Ranges Random: 50 - 1200 mOsm/kg H20 depending on fluid intake Random: >850 mOsm/kg after 12 hour fluid restriction 24 hour: ~300 - 900 mOsm/kg H2O Osmolality, Serumon 05-03-20 25 OSMOLALITY,SER 253 mOsm/KG Low 275-295 [facility] Comment on above: Performed By: #### L 500.2500, L501.4021, L100.0100 #### [facility] [address] [place] [address], [address] Platelet countOrdered By: Osiel Jc on 05-03-2025 Platelets (Bld) [#/Vol] 313 10*3/uL 150-450 [facility] Potassium measurement (mass/ volume)Ordered By: Allan Jc on 05-03-2025 Potassium (Unsp spec) [Mass/Vol] 4.5 mmol/L 3.3-5.1 [facility] Protein Test strip Ql (U)Ord ered By: Meseret Minor on 05-03-2025 Protein Ql (U) 15 mg/dl High Negative [facility] Quantitative urine opiates m easurementOrdered By: Meseret Minor on 05-03-2025 Opiates Ql (U) Negative < 300 ng/mL [facility] RBC Auto (Bld) [#/Vol]Ordere d By: Allan Jc on 05-03-2025 RBC (Bld) [#/Vol] 5.06 10*6/uL 4.6-6.2 [facility] Screening urine fentanyl cem surementOrdered By: Meseret Minor on 05-03-2025 fentaNYL Screen Ql (U) Negative [facility] Serum creatinine measurement (mass/volume)Ordered By: Allan Jc on 05-03-2025 Creatinine [Mass/Vol] 0.74 mg/dL 0.70-1.20 [facility] Serum glucose measurement (m ass/volume)Ordered By: Allan Jc on 05-03-2025 Glucose [Mass/Vol] 113 mg/dL High 70-99 [facility] Serum or plasma calcium pepe urement (mass/volume)Ordered By: Allan Jc on 05-03-2025 Calcium [Mass/Vol] 9.1 mg/dL 7.6-11.0 [facility] Serum or plasma cortisol cem surement (mass/volume)Ordered By: Meseret Minor on 05-03-2025 Cortisol [Mass/Vol] 7.33 ug/dL 2.68-10.50 [facility] Serum or plasma urea nitroge n measurement (mass/volume)Ordered By: Allan Jc on 05-03-2025 Urea nitrogen [Mass/Vol] 5 mg/dL 4-19 [facility] Serum or plasma uric acid me asurement (mass/volume)Ordered By: Meseret Minor on 05-03-2025 Urate [Mass/Vol] 3.1 mg/dL Low 3.5-7.2 [facility] Comment on above: The drugs N-Acetylcy steine and Metamizole may falsely depress this assay. Sodium levelOrdered By: Michael Jc on 05-03-2025 Sodium [Moles/Vol] 119 mmol/L Low 133-145 [facility] Comment on above: Critical Result(s) C alled at: 1620 by: SARA Oakley RN. Results read back by same. Squamous epithelial cells de tection in urine sediment by light microscopyOrdered By: Meseret Minor on 05-03-2025 Epithelial cells.squamous LM Ql (Urine sed) 0 SEEN /hpf 0-5 [facility] T4 Free Directon 05-03-2025 T4 FREE DIRECT 1.30 ng/dL Normal 0.76-1.46 [facility] Comment on above: Performed By: #### L 501.81190, L501.9520, L506.0400 ####[facility] [address] [place], [place], [id number]) T4 freeOrdered By: Allan silva on 05-03-2025 Free T4 [Mass/Vol] 1.30 ng/dL 0.76-1.46 [facility] Free T4 [Mass/Vol] 1.30 ng/dL 0.76-1.46 [facility] TSH DL <= 0.005 mIU/L QnOrde red By: Meseret Minor on 05-03-2025 TSH Qn 0.950 uIU/mL 0.300-4.200 [facility] TSH DL <= 0.005 mIU/L QnOrde red By: Allan Jc on 05-03-2025 TSH Qn 1.050 uIU/mL 0.300-4.200 [facility] Thyroid Stim Hormone (TSH)on 05-03-2025 TSH 0.950 uIU/mL Normal 0.300-4.200 [facility] Comment on above: Performed By: #### L 500.2500, L501.4021, L100.0100 #### [facility] [address] [place], [place], [address] TSH 1.050 uIU/mL Normal 0.300-4.200 [facility] Comment on above: Performed By: #### L 501.68626, L501.9520, L506.0400 ####[facility] [address] [place], [address] Troponin T.cardiac [Mass/vol ume] in Serum or Plasma by High sensitivity methodOrdered By: Allan Jc on 05-03-2025 Troponin T.cardiac High sensitivity method [Mass/Vol] 9 ng/L <22 [facility] Troponin T.cardiac High sensitivity method [Mass/Vol] 9 ng/L <22 [facility] Troponin T.cardiac High sensitivity method [Mass/Vol] 9 ng/L <22 [facility] Uric Acidon 05-03-2025 URIC 3.1 mg/dL Low 3.5-7.2 [facility] Comment on above: Result Comment: The drugs N-Acetylcysteine and Metamizole may falsely depress this assay. Performed By: #### L 500.2500, L501.4021, L100.0100 #### [facility] [address] [place], [address] Urinalysis, Completeon 05-03 BACTERIA 0 SEEN Normal None Seen [facility] Comment on above: Order Comment: CLEAN CATCH Performed By: #### L 500.2500, L501.4021, L100.0100 #### [facility] [address] [place], [address] EPI,SQUAMOUS 0 SEEN Normal 0-5 [facility] Comment on above: Order Comment: CLEAN CATCH Performed By: #### L 500.2500, L501.4021, L100.0100 #### [facility] [address] [place], [address] Mucus Ql (Urine sed) 0 SEEN Normal [facility] Comment on above: Order Comment: CLEAN CATCH Performed By: #### L 500.2500, L501.4021, L100.0100 #### [facility] [address] [place], [address] RBC 0 SEEN Normal 0-5 [facility] Comment on above: Order Comment: CLEAN CATCH Performed By: #### L 500.2500, L501.4021, L100.0100 #### [facility] [address] [place], [address] WBC 0 SEEN Normal 0-5 [facility] Comment on above: Order Comment: CLEAN CATCH Performed By: #### L 500.2500, L501.4021, L100.0100 #### [facility] [address] [place], [address] Urine benzodiazepine levelOr dered By: Meseret Minor on 05-03-2025 Benzodiazepines Ql (U) Negative < 200 ng/mL [facility] Urine clarityOrdered By: Magalie Minor on 05-03-2025 Clarity (U) Clear Clear [facility] Urine cocaine levelOrdered B y: Meseret Minor on 05-03-2025 Cocaine Ql (U) Negative < 300 ng/mL [facility] Urine color determinationOrd ered By: Meseret Minor on 05-03-2025 Color (U) Yellow Yellow [facility] Urine syrse-0-ahzoncxagfyjsh abinol (THC) measurementOrdered By: Meseret Minor on 05-03-2025 Cannabinoids Screen Ql (U) Negative < 50 ng/mL [facility] Urine glucose detectionOrder ed By: Meseret Minor on 05-03-2025 Glucose Ql (U) Normal mg/dl Normal [facility] Urine leukocyte esterase det ection by dipstickOrdered By: Meseret Minor on 05-03-2025 Leukocyte esterase Test strip Ql (U) Negative Negative [facility] Urine pHOrdered By: Meseret Minor on 05-03-2025 pH (U) 7.0 [pH] 5.0 - 8.0 [facility] Urine phencyclidine (PCP) de tectionOrdered By: Meseret Minor on 05-03-2025 Phencyclidine Ql (U) Negative < 25 ng/mL [facility] Urine sediment bacteria coun t by microscopy (number/high power field)Ordered By: Meseret Minor on 05-03-2025 Bacteria LM.HPF (Urine sed) [#/Area] 0 /[HPF] None Seen [facility] Urine sodium measurement (mo les/volume)Ordered By: Meseret Minor on 05-03-2025 Sodium (U) [Moles/Vol] 33 mmol/L Not Establ. [facility] Urine specific gravity measu rementOrdered By: Meseret Minor on 05-03-2025 Specific gravity (U) [Rel density] 1.010 1.002-1.030 [facility] Urine urobilinogen measureme ntOrdered By: Meseret Minor on 05-03-2025 Urobilinogen Ql (U) Normal mg/dl Normal [facility] White blood cell (WBC) count Ordered By: Allan Jc on 05-03-2025 WBC (Bld) [#/Vol] 11.6 10*3/uL High 4.4-11.0 [facility] White blood cell countOrdere d By: Meseret Minor on 05-03-2025 White blood cell count 0 SEEN /hpf 0-5 [facility] Absolute lymphocyte countOrd ered By: Suzette Jay on 02-04-2024 Lymphocytes Auto (Unsp spec) [#/Vol] 2.33 10*3/uL 0.83-4.51 [facility] Automated lymphocyte count a s percentage of total leukocytesOrdered By: Suzette Jay on 02-04-2024 Lymphocytes/100 WBC Auto (Unsp spec) 15.5 % 19-41 [facility] Basophil percentageOrdered B y: Suzette Jay on 02-04-2024 Basophils/100 WBC (Bld) 0.8 % 0-1 [facility] Chloride [Moles/Vol] 102 mmol/L 98-107 [facility] Eosinophils/100 WBC (Bld) 0.1 % 0-5 [facility] Glucose [Mass/Vol] 99 mg/dL 74-106 [facility] Hemoglobin (Bld) [Mass/Vol] 16.0 g/dL 13.0-16.5 [facility] Monocytes/100 WBC (Bld) 10.0 % 0-10 [facility] Neutrophils (Bld) [#/Vol] 11.0 10*3/uL 2.0-7.7 [facility] Neutrophils/100 WBC (Bld) 73.1 % 47-70 [facility] Potassium [Moles/Vol] 3.8 mmol/L 3.5-5.1 [facility] Sodium [Moles/Vol] 138 mmol/L 136-145 [facility] [facility] W[facility] (Bld) [#/Vol] 15.0 10*3/uL 4.4-11.0 [facility] [place] Determination of erythrocyte mean corpuscular volume (MCV)Ordered By: Suzette Jay on 02-04-2024 MCV (RBC) [Entitic vol] 86.6 fL 80-94 [facility] Erythrocyte distribution wid th ratioOrdered By: Suzette Jay on 02-04-2024 Erythrocyte distribution width (RBC) [Ratio] 13.0 % 11.6-14.6 [facility] Erythrocyte distribution wid th standard deviationOrdered By: Suzette Jay on 02-04-2024 Erythrocyte distribution width (RBC) [Entitic vol] 40.7 fL 35.1-43.9 [facility] Hematocrit Auto (Bld) [Volum e fraction]Ordered By: Suzette Jay on 02-04-2024 Hematocrit (Bld) [Volume fraction] 46.5 % 40-54 [facility] Immature granulocytes/100 WB C Auto (Bld)Ordered By: Suzette Jay on 02-04-2024 Immature granulocytes/100 WBC (Bld) 0.500 % 0.0-0.9 [facility] Comment on above: IG% - Immature Granu locytes (promyelocytes, myelocytes and metamyelocytes) > 1% indicates that a LEFT SHIFT is Present. Laboratory - Chemistry and C hemistry - challengeOrdered By: Suzette Jay on 02-04-2024 CO2 [Moles/Vol] 25.0 mmol/L 21.0-32.0 [facility] Urea nitrogen/Creatinine [Mass ratio] 10.5 mg/mg 10- [facility] Laboratory - Drug toxicology Ordered By: Suzette Jay on 02-04-2024 Amphetamines Ql (U) Positive <1000 ng/mL [facility] Benzodiazepines Ql (U) Negative < 200 ng/mL [facility] Cannabinoids Screen Ql (U) Negative < 50 ng/mL [facility] Cocaine Ql (U) Negative < 300 ng/mL [facility] Opiates Ql (U) Negative < 300 ng/mL [facility] Laboratory - Hematology and Cell countsOrdered By: Suzette Jay on 02-04-2024 MCH (RBC) [Entitic mass] 29.8 pg 27.0-32.0 [facility] MCHC (RBC) [Mass/Vol] 34.4 g/dL 32-36 [facility] Nucleated RBC/100 WBC (Bld) [Ratio] 0 % 0-5 [facility] Platelet mean volume (Bld) [Entitic vol] 10.6 fL 6.2-12.0 [facility] Platelets (Bld) [#/Vol] 298 10*3/uL 150-450 [facility] No Panel InformationOrdered By: Suzette Jay on 02-04-2024 Estimated Creatinine Clearance Calc 122.02 ml/min [facility] Estimated GFR (MDRD) Amer 106 mL/min >60 [facility] Comment on above: GFR Calc Estimated GFR (MDRD) Non-Af Amer 87 mL/min >60 [facility] Comment on above: Non- GFR Calc Ethyl Alcohol Level < 3.0 mg/dL [facility] Comment on above: The serum:whole bloo d ethanol ratio is approximately 1.14and varies slightly with hematocrit. Medical Alcohol reference interval and critical value innon-tolerant individuals; 50 - 100 Impairment 100 Intoxication 100 - 250 Severe Poisoning 250 - 400 Deep/possible fatal coma MDMA (Ecstasy) Screen Positive < 500 ng/mL [facility] Urine Barbiturates Screen Negative < 200 ng/mL [facility] Urine Drug Screen Comment [facility] Comment on above: CONFIRMATORY TESTING FOR [...] Methadone Screen Negative < 300 ng/mL [facility] RBC Auto (Bld) [#/Vol]Ordere d By: Suzette Jay on 02-04-2024 RBC (Bld) [#/Vol] 5.37 10*6/uL 4.6-6.2 [facility] [place] Serum or plasma calcium pepe urement (mass/volume)Ordered By: Suzette Jay on 02-04-2024 Calcium [Mass/Vol] 9.0 mg/dL 8.5-10.1 [facility] Serum or plasma creatinine m easurement (mass/volume)Ordered By: Suzette Jay on 02-04-2024 Creatinine [Mass/Vol] 0.95 mg/dL 0.70-1.30 [facility] Comment on above: The validity of the calculated GFR & GFRAA in patients over 70 years has not been determined. Clinical correlation is essential. Serum or plasma urea nitroge n measurement (mass/volume)Ordered By: Suzette Jay on 02-04-2024 Urea nitrogen [Mass/Vol] 10 mg/dL 7-18 [facility] Thin prep Papanicolaou smear with manual screeningOrdered By: Suzette Jay on 02-04-2024 Thin prep Papanicolaou smear with manual screening 11 5-15 [facility] Urine phencyclidine (PCP) de tectionOrdered By: Suzette Jay on 02-04-2024 Phencyclidine Ql (U) Negative < 25 ng/mL [facility] BNPon 11-15-2022 Natriuretic peptide B (Bld) [Mass/Vol] 109 pg/mL High 0 - 99 [facility] Comment on above: Result Comment: . <1 00 pg/mL - Heart failure unlikely 100-299 pg/mL - Intermediate probability of acute heart . failure exacerbation. Correlate with clinical . context and patient history. >=300 pg/mL - Heart Failure likely. Correlate with clinical . context and patient history. BNP testing is performed using different testing methodology at [facility] than at other [facility]. Direct result comparisons should only be made within the same method. Performed By: #### B NP2 #### [place] [address] CBC AND DIFFERENTIALon 11-15 % AUTOMATED IMMATURE GRAN 0.4 % Normal 0.0 - 0.9 [facility] Comment on above: Result Comment: Hanna ture Granulocyte Count (IG) includes promyelocytes, myelocytes and metamyelocytes but does not include bands. Percent differential counts (%) should be interpreted in the context of the absolute cell counts (cells/L). Performed By: #### C BCDF #### [address] [address] Basophils (Bld) [#/Vol] 0.02 10*3/uL Normal 0.00 - 0.1 0 [facility] Comment on above: Performed By: #### C BCDF #### [address] [address] Basophils/100 WBC (Bld) 0.1 % Normal 0.0 - 2.0 [facility] Comment on above: Performed By: #### C BCDF #### [address] [address] Lymphocytes (Bld) [#/Vol] 1.94 10*3/uL Normal 1.20 - 4.80 [facility] Comment on above: Performed By: #### C BCDF #### [address] [address] Lymphocytes/100 WBC (Bld) 14.5 % Normal 13.0 - 44.0 [facility] Comment on above: Performed By: #### C BCDF #### [address] [address] Monocytes (Bld) [#/Vol] 1.27 10*3/uL High 0.10 - 1.0 0 [facility] Comment on above: Performed By: #### C BCDF #### [address] [address] Monocytes/100 WBC (Bld) 9.5 % Normal 2.0 - 10.0 [facility] Comment on above: Performed By: #### C BCDF #### [address] [address] Neutrophils (Bld) [#/Vol] 10.08 10*3/uL High 1.20 - 7.70 [facility] Comment on above: Performed By: #### C BCDF #### [address] [address] Neutrophils/100 WBC (Bld) 75.5 % Normal 40.0 - 80.0 [facility] Comment on above: Performed By: #### C BCDF #### [address] [address] Erythrocyte distribution width (RBC) [Ratio] 13.5 % Normal 11.5 - 14.5 [facility] Comment on above: Performed By: #### C BCDF #### [address] [address] Hematocrit (Bld) [Volume fraction] 39.4 % Low 41.0 - 52.0 [facility] Comment on above: Performed By: #### C BCDF #### [address] [address] Hemoglobin (Bld) [Mass/Vol] 13.9 g/dL Normal 13.5 - 17.5 [facility] Comment on above: Performed By: #### C BCDF #### [address] [address] MCHC (RBC) [Mass/Vol] 35.3 g/dL Normal 32.0 - 36.0 Ro [facility] Comment on above: Performed By: #### C BCDF #### [address] [address] MCV (RBC) [Entitic vol] 84 fL Normal 80 - 100 [facility] Comment on above: Performed By: #### C BCDF #### [address] [address] Platelets (Bld) [#/Vol] 225 10*3/uL Normal 150 - 450 [facility] Comment on above: Performed By: #### C BCDF #### [address] [address] RBC 4.68 x10E12/L Normal 4.50 - 5.90 [facility] Comment on above: Performed By: #### C BCDF #### [address] [address] WBC (Bld) [#/Vol] 13.4 10*3/uL High 4.4 - 11.3 [facility] Comment on above: Performed By: #### C BCDF #### [address] [address] COMPREHENSIVE PANELon 2021 Albumin [Mass/Vol] 3.9 g/dL Normal 3.4 - 5.0 [place] [facility] Comment on above: Performed By: #### C MP #### [address] [address] ALP [Catalytic activity/Vol] 57 U/L Normal 33 - 120 [facility] Comment on above: Performed By: #### C MP #### [address] [address] ALT [Catalytic activity/Vol] 21 U/L Normal 10 - 52 [facility] Comment on above: Result Comment: Suly ents treated with Sulfasalazine may generate falsely decreased results for ALT. Performed By: #### C MP #### [address] [address] Anion gap [Moles/Vol] 14 mmol/L Normal 10 - 20 Josh inson/[facility] Comment on above: Performed By: #### C MP #### [address] [address] AST [Catalytic activity/Vol] 51 U/L High 9 - 39 [facility] Comment on above: Performed By: #### C MP #### [address] [address] Bilirubin [Mass/Vol] 0.9 mg/dL Normal 0.0 - 1.2 [facility] nson/[facility] Comment on above: Performed By: #### C MP #### [address] [address] Calcium [Mass/Vol] 8.8 mg/dL Normal 8.6 - 10.3 [place] [facility] Comment on above: Performed By: #### C MP #### [address] [address] Chloride [Moles/Vol] 95 mmol/L Low 98 - 107 [facility] Comment on above: Performed By: #### C MP #### [address] [address] Creatinine [Mass/Vol] 0.93 mg/dL Normal 0.50 - 1.30 [facility]inson/[facility] Comment on above: Performed By: #### C MP #### [address] [address] eGFR MALE >90 Normal >90 [facility] Comment on above: Result Comment: CALC ULATIONS OF ESTIMATED GFR ARE PERFORMED USING THE 2020 CKD-EPI STUDY REFIT EQUATION WITHOUT THE RACE VARIABLE FOR THE IDMS-TRACEABLE CREATININE METHODS. https://jasn.asnjournals.org/content/early/ASN.2020 477285 Performed By: #### C MP #### [address] [address] Glucose [Mass/Vol] 120 mg/dL High 74 - 99 [place] [facility] Comment on above: Performed By: #### C MP #### [address] [address] HCO3 (Bld) [Moles/Vol] 27 mmol/L Normal 21 - 32 [facility] Comment on above: Performed By: #### C MP #### [address] [address] Potassium [Moles/Vol] 3.3 mmol/L Low 3.5 - 5.3 Josh inson/Po [facility] Comment on above: Performed By: #### C MP #### [address] [address] Protein [Mass/Vol] 7.4 g/dL Normal 6.4 - 8.2 [place] [facility] Comment on above: Performed By: #### C MP #### [address] [address] Sodium [Moles/Vol] 133 mmol/L Low 136 - 145 [place] [facility] Comment on above: Performed By: #### C MP #### [address] [address] Urea nitrogen [Mass/Vol] 8 mg/dL Normal 6 - 23 [facility] Comment on above: Performed By: #### C #### [facility] [address] [place] [address] Covid 19 Resultson 2 SARS-CoV-2 (COVID-19) RNA [...] You may also be contacted by the [facility] to see if any [...] or Naproxen (Aleve) can also be used. Jtln-bja-xzkgwcd cough and cold medicines can be used according to the instructions on the package. Some mzhr-jse-wuvuarx medicines also contain acetaminophen. Make sure you [...] water are not available, use alcohol-based hand opener tender. Avoid touching your eyes, nose, and mouth [...] 24 dallin (more content not included)... Normal [facility] EMR ADDONon 11-15-2022 ADDON CONFIRMATION REQUEST REC'D [facility] Comment on above: Performed By: #### C OINP #### [place] [address] INFLUENZA A/B, COVID 2019 PC R,SYMPTOMATICon 11-15-2022 INFLUENZA A, PCR Detected Abnormal Not Detected [facility] Comment on above: Result Comment: Resp iratory virus testing is performed routinely by PCR for Influenza A/B and RSV. Not Detected results do not preclude Influenza A/B or RSV infections since the adequacy of sample collection or low viral burden may impact the clinical sensitivity of this test method. Performed By: #### C OINP #### [place] [address] INFLUENZA B, PCR Not detected Normal Not Detected [facility] Comment on above: Result Comment: Resp iratory virus testing is performed routinely by PCR for Influenza A/B and RSV. Not Detected results do not preclude Influenza A/B or RSV infections since the adequacy of sample collection or low viral burden may impact the clinical sensitivity of this test method. Performed By: #### C OINP #### [place] [address] Lab Specimen Source Nasal, Nasopharyngeal Normal [facility] Comment on above: Performed By: #### C OINP #### [place] [address] SARS-CoV-2 (COVID-19) RNA LEROY+probe Ql (Unsp spec) Not detected Normal Not Detected [facility] Comment on above: Result Comment: . This test has received FDA Emergency Use Authorization (EUA) and has been verified by [facility]. This test is only authorized for the duration of time that circumstances exist to justify the authorization of the emergency use of in vitro diagnostic tests for the detection of SARS-CoV-2 virus and/or diagnosis of COVID-19 infection under section 564(b)(1) of the Act, 21 U.S.C. 360bbb-3(b)(1), unless the authorization is terminated or revoked sooner. [facility] is certified under CLIA-88 as qualified to perform high complexity testing. Testing is performed in the [facility] laboratory located at [address] [place] [address]. SARS-CoV-2/Flu/RSV Multiplex Test: Fact sheet for providers: https://www.fda.gov/media/305087/download Fact sheet for patients: https://www.fda.gov/media/701004/download Performed By: #### C OINP #### [place] [address] PT/INRon 11-15-2022 PT Coag (PPP) [Time] 14.2 s High 9.8 - 13.4 [facility] Comment on above: Performed By: #### P TINR #### [place] [address] PT, INR 1.2 High 0.9 - 1.1 [facility] Comment on above: Performed By: #### P TINR #### [place] [address] Provider Note - ED v3on 10-28 Provider [...] limitation. No acute ST elevation is identified. AL interval is 171 and QTc is 460. [...] 11-14-2022 22:29 Heart Rate (beats/min): 76 11-14-2022 22:29 Respirations (breaths/min): 24 11-14-2022 22:29 SpO2 (%): [...] 13.9 Anion (more content not included)... Normal [facility] RED CELL MORPHOLOGYon 2021 RBC morphology finding Nom (Bld) SEE COMMENT Normal [facility] Comment on above: Result Comment: NO S IGNIFICANT RBC ABNORMALITIES SEEN ON SMEAR REVIEW. Performed By: #### M ORP2 #### [address] [address] TROPONIN I, HIGH SENSITIVITY on 11-15-2022 TROPONIN I, HIGH SENSITIVITY Canceled Normal [facility] Comment on above: Order Comment: TEST [...] performed using a different testing methodology at [facility] than at other [facility]. Direct result comparisons should only be made within the same method. Performed By: #### C OINP #### [facility] [address] [place] [id number] TROPONIN I, HIGH SENSITIVITY 14 ng/L Normal 0 - 20 [facility] Comment on above: Result Comment: . [...] performed using a different testing methodology at [facility] than at other [facility]. Direct result comparisons should only be made within the same method. Performed By: #### T [facility] #### [facility] [address] [place] [address] Triage - EDon 11-15-2022 Triage - ED Quick Triage: The patient and/or guardian verbally acknowledges placement for services into the following (when Urgent Care Service hours are operating):emergency department Chart Review: ARRIVAL INFORMATION Means of Arrival: Ambulatory Mode of Arrival: private vehicle Arrival From: home Accompanied By: self Language: Spoken Language Preferred: Algerian Reading Language Preferred: Algerian CHIEF COMPLAINT LYNNETTE GONG is a Male [...] do anything to end your life no Roesnthal Fall Scale Screening Has the patient fallen [...] Past Medical History, Active Electronic Signatures: Dana Aguirre) (Signed 14-Nov-2022 22:36) Authored: Quick Triage, Risk Screens, Pain, Arrival, Travel History, Chart Review, Past Medical History Last Updated: 14-Nov-2022 22:36 by Dana Aguirre (RN) Normal [facility] UA MICROSCOPICon 11-15-2022 RBC 4 /HPF Normal 0-5 [facility] Comment on above: Performed By: #### U AMIC #### [address] [address] WBC 2 /HPF Normal 0-5 [facility] Comment on above: Performed By: #### U AMIC #### [address] [address] URINALYSISon 11-15-2022 Appearance (U) Clear Normal CLEAR [facility] Comment on above: Performed By: #### C OINP #### [address] [address] Bilirubin Ql (U) Negative Normal NEGATIVE [facility] Comment on above: Performed By: #### C OINP #### [address] [address] Color (U) Yellow Normal STRAW,YELLO W [facility] Comment on above: Performed By: #### C OINP #### [address] [address] Glucose Ql (U) Negative Normal NEGATIVE [facility] Comment on above: Performed By: #### C OINP #### [address] [address] Hemoglobin Ql (U) SMALL(1+) Abnormal NEGATIVE [place] [facility] Comment on above: Performed By: #### C OINP #### [address] [address] Ketones Ql (U) 5(Trace) mg/dl Abnormal NEGATIVE [place] [facility] Comment on above: Performed By: #### C OINP #### [address] [address] Leukocyte esterase Test strip Ql (U) Negative Normal NEGATIVE [facility] Comment on above: Performed By: #### C OINP #### [address] [address] Nitrite Ql (U) Negative Normal NEGATIVE [facility] Comment on above: Performed By: #### C OINP #### [address] [address] pH (U) 6.0 [pH] Normal 5.0 - 8.0 [place] Comment on above: Performed By: #### C OINP #### [address] [address] Protein Ql (U) 100(2+) Abnormal NEGATIVE [facility] Comment on above: Performed By: #### C OINP #### [address] [address] Specific gravity (U) [Rel density] 1.021 Normal 1.005 - 1.035 [place] Comment on above: Performed By: #### C OINP #### [address] [address] Urobilinogen (U) [Mass/Vol] 4.0 mg/dL High 0.0 - 1.9 [facility] Comment on above: Result Comment: SOME PIGMENTS AND MEDICATIONS MAY CAUSE A FALSE POSITIVE UROBILINOGEN Performed By: #### C OINP #### [address] [address] VENOUS FULL PANELon 1220-20 22 Anion gap [Moles/Vol] 12 mmol/L Normal 10 - 25 [facility] inson[facility] Comment on above: Performed By: #### V FPA4 #### [address] [address] BASE EXCESS-BLOOD 3.2 mmol/L High -2.0 - 3.0 [facility] Comment on above: Performed By: #### V FPA4 #### [address] [address] BICARB, CALCULATED 28.5 mmol/L High 22.0 - 26.0 [place] [facility] Comment on above: Performed By: #### V FPA4 #### [address] [address] CALCIUM,IONIZED 1.13 mmol/L Normal 1.10 - 1.33 [facility] Comment on above: Performed By: #### V FPA4 #### [address] [address] Chloride [Moles/Vol] 94 mmol/L Low 98 - 107 [facility] Comment on above: Performed By: #### V FPA4 #### [address] [address] Glucose [Mass/Vol] 128 mg/dL High 74 - 99 [place] [facility] Comment on above: Performed By: #### V FPA4 #### [address] [address] Hematocrit (Bld) [Volume fraction] 42.0 % Normal 41.0 - 52.0 [place] Comment on above: Performed By: #### V FPA4 #### [address] [address] Hemoglobin (Bld) [Mass/Vol] 13.9 g/dL Normal 13.5 - 17.5 [facility] Comment on above: Performed By: #### V FPA4 #### [address] [address] Lactate [Moles/Vol] 1.1 mmol/L Normal 0.4 - 2.0 [facility] [facility] Comment on above: Performed By: #### V FPA4 #### [address] [address] OXY HGB 51.7 % Normal 45.0 - 75.0 [facility] Comment on above: Performed By: #### V FPA4 #### [address] [address] Oxygen (Bld) [Partial pressure] 31 mm[Hg] Low 35 - 45 [place] Comment on above: Performed By: #### V FPA4 #### [address] [address] PATIENT TEMPERATURE 37.0 degrees C Normal R [facility] Comment on above: Result Comment: NOTE : PATIENT RESULTS ARE NOT CORRECTED FOR TEMPERATURE. Performed By: #### V FPA4 #### [address] [address] PCO2 45 mmHg Normal 41 - 51 [facility] Comment on above: Performed By: #### V FPA4 #### [address] [address] pH (Bld) 7.41 [pH] Normal 7.33 - 7.43 [facility] Comment on above: Performed By: #### V FPA4 #### [address] [address] Potassium [Moles/Vol] 3.2 mmol/L Low 3.5 - 5.3 [facility] inson[facility] Comment on above: Performed By: #### V FPA4 #### [address] [address] SO2 53 % Normal 45 - 75 [facility] Comment on above: Performed By: #### V FPA4 #### [address] [address] Sodium [Moles/Vol] 131 mmol/L Low 136 - 145 [place] [facility] Comment on above: Performed By: #### V FPA4 #### [address] [address] Vital Signs Date Time Vital Sign Value Performing Clinician Adrianne block 09-17-2025 14:05-0400 Body temperature 97.2 [degF] Deborah Crispin JUMPBASTING MACHINE OPERATOR-C Work Phone: [facility] 09-17-2025 14:05-0400 Diastolic blood pressure 92 mm[Hg] Deborah Crispin JUMPBASTING MACHINE OPERATOR-C Work Phone: [facility] 09-17-2025 14:05-0400 Heart rate 67 /min Deborah Crispin JUMPBASTING MACHINE OPERATOR-C Work Phone: [facility] 09-17-2025 14:05-0400 Respiratory rate 16 /min Deborah Crispin JUMPBASTING MACHINE OPERATOR-C Work Phone: [facility] 09-17-2025 14:05-0400 SaO2% (BldA) [Mass fraction] 99 % Deborah Crispin JUMPBASTING MACHINE OPERATOR-C Work Phone: [facility] 09-17-2025 14:05-0400 Systolic blood pressure 162 mm[Hg] Deborah Crispin JUMPBASTING MACHINE OPERATOR-C Work Phone: [facility] 09-17-2025 12:52-0400 Body height 170.18 cm Deborah Crispin JUMPBASTING MACHINE OPERATOR-C Work Phone: [facility] 09-17-2025 12:52-0400 Body mass index (BMI) [Ratio] 45.6 kg/m2 Deborah Crispin JUMPBASTING MACHINE OPERATOR-C Work Phone: [facility] 09-17-2025 12:52-0400 Body weight 132 kg Deborah Crispin JUMPBASTING MACHINE OPERATOR-C Work Phone: [facility] 08-14-2025 09:48-0400 Body height 170.[address] Allan Jc DO Work Phone: [facility] 08-14-2025 09:48-0400 Body temperature 96.1 [degF] Dr. Allan Jc DO Work Phone: [facility] 08-14-2025 09:48-0400 Diastolic blood pressure 71 mm[Hg] Dr. Allan Jc DO Work Phone: [phone] [place] [address] 08-14-2025 09:48-0400 Heart rate 67 /min Dr. Allan Jc DO Work Phone: [phone] [place] [address] 08-14-2025 09:48-0400 Respiratory rate 18 /min Dr. Allan Jc DO Work Phone: [phone] [place] [address] 08-14-2025 09:48-0400 SaO2% (BldA) [Mass fraction] 97 % Dr. Allan Jc DO Work Phone: [facility] 08-14-2025 09:48-0400 Systolic blood pressure 142 mm[Hg] Dr. Allan Jc DO Work Phone: [facility] 08-11-2025 14:40-0400 Body height 170.[address] Allan Jc DO Work Phone: [facility] 08-11-2025 14:40-0400 Body mass index (BMI) [Ratio] 47.6 kg/m2 Dr. Allan Jc DO Work Phone: [facility] 08-11-2025 14:40-0400 Body temperature 98.8 [degF] Dr. Allan Jc DO Work Phone: [facility] 08-11-2025 14:40-0400 Body weight [address] Allan Jc DO Work Phone: [facility] 08-11-2025 14:40-0400 Diastolic blood pressure 87 mm[Hg] Dr. Allan Jc DO Work Phone: 3(170)350-694542 [place] [address] 08-11-2025 14:40-0400 Heart rate 82 /min Dr. Allan Jc DO Work Phone: 7(932)924-861342 [place] [address] 08-11-2025 14:40-0400 Respiratory rate 18 /min Dr. Allan Jc DO Work Phone: 3(399)712-065542 [place] [address] 08-11-2025 14:40-0400 SaO2% (BldA) [Mass fraction] 93 % Dr. Allan Jc DO Work Phone: 9(803)830-960442 [place] [address] 08-11-2025 14:40-0400 Systolic blood pressure 144 mm[Hg] Dr. Allan Jc DO Work Phone: 9(795)171-757610 [place] [address] 07-17-2025 11:52-0400 Body height 170.[address] Allan Jc DO Work Phone: 3(122)378-205110 [place] [address] 07-17-2025 11:52-0400 Body mass index (BMI) [Ratio] 48.6 kg/m2 Dr. Allan Jc DO Work Phone: 7(735)702-381310 [place] [address] 07-17-2025 11:52-0400 Body weight 140.[address] Allan Jc DO Work Phone: 7(345)983-728542 [place] [address] 07-17-2025 11:52-0400 Diastolic blood pressure 83 mm[Hg] Dr. Allan Jc DO Work Phone: 1(620)264-821642 [place] [address] 07-17-2025 11:52-0400 Heart rate 74 /min Dr. Allan Jc DO Work Phone: 2(499)156-393642 [place] [address] 07-17-2025 11:52-0400 Respiratory rate 14 /min Dr. Allan Jc DO Work Phone: 9(315)377-697242 [place] [address] 07-17-2025 11:52-0400 SaO2% (BldA) [Mass fraction] 97 % Dr. Allan Jc DO Work Phone: 7(113)241-057342 [place] [address] 07-17-2025 11:52-0400 Systolic blood pressure 143 mm[Hg] Dr. Allan Jc DO Work Phone: 5(146)381-183442 [place] [address] 06-23-2025 17:47-0400 Body temperature 98.1 [degF] Dr. Allan Jc DO Work Phone: 5(077)340-835610 [place] [address] 06-23-2025 17:47-0400 Diastolic blood pressure 80 mm[Hg] Dr. Allan Jc DO Work Phone: 1(124)414-123510 [place] [address] 06-23-2025 17:47-0400 Heart rate 79 /min Dr. Allan Jc DO Work Phone: 6(547)137-855710 [place] [address] 06-23-2025 17:47-0400 Respiratory rate 20 /min Dr. lAlan Jc DO Work Phone: 0(757)990-278410 [place] [address] 06-23-2025 17:47-0400 SaO2% (BldA) [Mass fraction] 98 % Dr. Allan Jc DO Work Phone: 9(990)736-211910 [place] [address] 06-23-2025 17:47-0400 Systolic blood pressure 131 mm[Hg] Dr. Allan Jc DO Work Phone: 1(523)900-894510 [place] [address] 06-23-2025 15:12-0400 Body height 170.[address] Allan Jc DO Work Phone: 1(762)808-943410 [place] [address] 06-23-2025 15:12-0400 Body mass index (BMI) [Ratio] 48.7 kg/m2 Dr. Allan Jc DO Work Phone: 4(533)357-893010 [place] [address] 06-23-2025 15:12-0400 Body weight 141.[address] Allan Jc DO Work Phone: 4(931)614-575942 [place] [address] 06-10-2025 13:03-0400 Body height 170.[address] Allan Jc DO Work Phone: 5(189)580-277310 [place] [address] 06-10-2025 13:03-0400 Body mass index (BMI) [Ratio] 50.6 kg/m2 Dr. Allan Jc DO Work Phone: 7(402)761-508942 [place] [address] 06-10-2025 13:03-0400 Body temperature 98.4 [degF] Dr. Allan Jc DO Work Phone: 7(386)487-937942 [place] [address] 06-10-2025 13:03-0400 Body weight 146.[address] Allan Jc DO Work Phone: 6(162)128-493142 [place] [address] 06-10-2025 13:03-0400 Diastolic blood pressure 71 mm[Hg] Dr. Allan Jc DO Work Phone: 7(855)610-159242 [place] [address] 06-10-2025 13:03-0400 Heart rate 75 /min Dr. Allan Jc DO Work Phone: 5(182)712-557942 [place] [address] 06-10-2025 13:03-0400 Respiratory rate 18 /min Dr. Allan Jc DO Work Phone: 3(260)658-941242 [place] [address] 06-10-2025 13:03-0400 SaO2% (BldA) [Mass fraction] 96 % Dr. Allan Jc DO Work Phone: 4(914)894-269742 [place] [address] 06-10-2025 13:03-0400 Systolic blood pressure 110 mm[Hg] Dr. Allan Jc DO Work Phone: 5(957)149-066142 [place] [address] 05-12-2025 13:30-0400 Body height 170.[address] Allan Jc DO Work Phone: 3(991)426-835642 [place] [address] 05-12-2025 13:30-0400 Body mass index (BMI) [Ratio] 51.9 kg/m2 Dr. Allan Jc DO Work Phone: 7(240)706-553842 [place] [address] 05-12-2025 13:30-0400 Body temperature 97.2 [degF] Dr. Allan Jc DO Work Phone: 8(727)531-301742 [place] [address] 05-12-2025 13:30-0400 Body weight 150.[address] Allan Jc DO Work Phone: 5(315)445-363042 [place] [address] 05-12-2025 13:30-0400 Diastolic blood pressure 82 mm[Hg] Dr. Allan Jc DO Work Phone: 2(710)294-599642 [place] [address] 05-12-2025 13:30-0400 Heart rate 84 /min Dr. Allan Jc DO Work Phone: 5(587)096-831342 [place] [address] 05-12-2025 13:30-0400 Respiratory rate 18 /min Dr. Allan Jc DO Work Phone: 0(075)759-887142 [place] [address] 05-12-2025 13:30-0400 SaO2% (BldA) [Mass fraction] 97 % Dr. Allan Jc DO Work Phone: 1(595)737-772342 [place] [address] 05-12-2025 13:30-0400 Systolic blood pressure 148 mm[Hg] Dr. Allan Jc DO Work Phone: 8(932)425-480742 [place] [address] 05-05-2025 11:40-0400 Diastolic blood pressure 106 mm[Hg] Dr. Allan Jc DO Work Phone: 6(490)564-373610 [place] [address] 05-05-2025 11:40-0400 Heart rate 71 /min Dr. Allan Jc DO Work Phone: 7(653)403-946510 [place] [address] 05-05-2025 11:40-0400 Respiratory rate 18 /min Dr. Allan Jc DO Work Phone: 0(381)668-813142 [place] [address] 05-05-2025 11:40-0400 SaO2% (BldA) [Mass fraction] 96 % Dr. Allan Jc DO Work Phone: 1(815)375-248742 [place] [address] 05-05-2025 11:40-0400 Systolic blood pressure 140 mm[Hg] Dr. Allan Jc DO Work Phone: 7(855)886-103542 [place] [address] 05-05-2025 10:19-0400 SaO2% (BldA) [Mass fraction] 99 % Dr. Allan Jc DO Work Phone: 9(865)573-097242 [place] [address] 05-05-2025 08:45-0400 Body temperature 97.7 [degF] Dr. Allan Jc DO Work Phone: 8(402)840-283642 [place] [address] 05-05-2025 08:45-0400 Diastolic blood pressure 88 mm[Hg] Dr. Allan Jc DO Work Phone: [facility] 05-05-2025 08:45-0400 Heart rate 64 /min Dr. Allan Jc DO Work Phone: 4(767)658-276442 [place] [address] 05-05-2025 08:45-0400 Respiratory rate 20 /min Dr. Allan Jc DO Work Phone: 8(861)085-671442 [place] [address] 05-05-2025 08:45-0400 Systolic blood pressure 149 mm[Hg] Dr. Allan Jc DO Work Phone: 0(811)955-684442 [place] [address] 05-05-2025 03:46-0400 Body mass index (BMI) [Ratio] 47.7 kg/m2 Dr. Allan Jc DO Work Phone: 0(757)194-279042 [place] [address] 05-05-2025 03:46-0400 Body weight 146.[address] Allan Jc DO Work Phone: 0(022)695-615010 [place] [address] 05-03-2025 19:20-0400 Body height 175.[address] Allan Jc DO Work Phone: 1(751)690-219742 [place] [address] 05-03-2025 18:11-0400 Body temperature 98.1 [degF] Dr. Allan Jc DO Work Phone: 2(680)928-497142 [place] [address] 05-03-2025 18:11-0400 Diastolic blood pressure 89 mm[Hg] Dr. Allan Jc DO Work Phone: 5(221)941-478342 [place] [address] 05-03-2025 18:11-0400 Heart rate 73 /min Dr. Allan Jc DO Work Phone: 7(693)320-874042 [place] [address] 05-03-2025 18:11-0400 Respiratory rate 16 /min Dr. Allan Jc DO Work Phone: 3(456)678-298242 [place] [address] 05-03-2025 18:11-0400 SaO2% (BldA) [Mass fraction] 98 % Dr. Allan Jc DO Work Phone: [facility] 05-03-2025 18:11-0400 Systolic blood pressure 159 mm[Hg] Dr. Allan Jc DO Work Phone: [facility] 05-03-2025 15:37-0400 Body height 175.[address] Allan Jc DO Work Phone: [facility] 05-03-2025 15:37-0400 Body mass index (BMI) [Ratio] 48.4 kg/m2 Dr. Allan Jc DO Work Phone: [facility] 05-03-2025 15:37-0400 Body weight 148.[address] Allan Jc DO Work Phone: [facility] 02-04-2024 17:39-0400 Body height 175.26 cm [facility] 02-04-2024 17:39-0400 Body mass index (BMI) [Ratio] 44.4 kg/m2 [facility] 02-04-2024 17:39-0400 Body temperature 96.3 [degF] [facility] 02-04-2024 17:39-0400 Body weight 136.57 kg [facility] 02-04-2024 17:39-0400 Diastolic blood pressure 90 mm[Hg] [facility] 02-04-2024 17:39-0400 Heart rate 100 /min [facility] 02-04-2024 17:39-0400 Respiratory rate 22 /min [facility] 02-04-2024 17:39-0400 SaO2% (BldA) [Mass fraction] 100 % [facility] 02-04-2024 17:39-0400 Systolic blood pressure 149 mm[Hg] [facility] 09-20-2022 12:45-0400 Body height 177.8 cm [facility] Work Phone: 09-20-2022 12:45-0400 Body mass index (BMI) [Ratio] 44.4 kg/m2 [facility] Work Phone: 09-20-2022 12:45-0400 Body temperature 97.7 [degF] [facility] Work Phone: 09-20-2022 12:45-0400 Body weight 140.61 kg [facility] Work Phone: 09-20-2022 12:45-0400 Diastolic blood pressure 80 mm[Hg] [facility] Work Phone: 09-20-2022 12:45-0400 Heart rate 98 /min [facility] Work Phone: 09-20-2022 12:45-0400 Respiratory rate 18 /min [facility] Work Phone: 09-20-2022 12:45-0400 SaO2% (BldA) [Mass fraction] 96 % [facility] Work Phone: 09-20-2022 12:45-0400 Systolic blood pressure 160 mm[Hg] [facility] Work Phone: Encounters Encounter Date Encounter Type Care Provider Facility Start: 09-23-2025 End: 09-23-2025 ambulatory [facility] Facility:[facility] Start: 09-23-2025 End: 09-23-2025 ambulatory [facility] Facility:[facility] Start: 09-17-2025 Non-patient / Non-visit Tito Morris DO -[facility] Start: 09-17-2025 End: 09-17-2025 Admission to same day surgery center Tito Morris DO -Endoscopy Work Phone: Start: 09-17-2025 End: 09-17-2025 ambulatory [facility] Facility:[facility] Start: 08-26-2025 End: 08-26-2025 Patient encounter procedure Debbie SCHWARTZ -[facility] Work Phone: Start: 08-26-2025 End: 08-26-[address] Allan Jc DO Work Phone: -[facility] Start: 08-14-2025 End: 08-14-2025 Patient encounter procedure Elizabet BLOCK -[facility] Work Phone: Start: 08-14-2025 End: 08-14-[address] Allan Jc DO Work Phone: -[facility] Start: 08-11-2025 End: 08-11-2025 Patient encounter procedure Elizabet BLOCK -[facility] Work Phone: Start: 08-11-2025 End: 08-11-[address] Allan Jc DO Work Phone: -[facility] Start: 08-04-2025 End: 08-04-[address] Allan Jc DO Work Phone: -Laboratory Eyal Vasquez [facility] Start: 08-04-2025 End: 08-04-2025 Patient encounter procedure Deborah Roa [employer]ING MACHINE [employer]PERATOR-C -Laboratory Eyal Famly [facility] Start: 08-04-2025 End: 08-04-2025 ambulatory Deborah Roa Facility:[facility] Start: 07-17-2025 End: 07-17-[address] Allan Jc DO Work Phone: -Laboratory Start: 07-17-2025 End: 07-17-2025 Patient encounter procedure Elizabet BLOCK -Laboratory Work Phone: Start: 07-17-2025 End: 07-17-2025 Patient encounter procedure Elizabet BLOCK -[facility] Work Phone: Start: 07-17-2025 End: 07-17-[address] Allan Jc DO Work Phone: -[facility] Start: 07-17-2025 End: 07-17-2025 ambulatory Elizabet Diop Facility:[facility] Start: 06-23-2025 End: 06-23-2025 Emergency department patient visit Dr. Allan Jc DO Work Phone: -Emergency Department Work Phone: Start: 06-18-2025 ambulatory [facility] y:[facility] Start: 06-17-2025 End: 06-17-[address] Allan Jc DO Work Phone: -Laboratory [facility] Start: 06-17-2025 End: 06-17-2025 Patient encounter procedure Deborah Roa JUMPBASTING MACHINE OPERATOR-C -Laboratory [facility] Work Phone: Start: 06-17-2025 End: 06-17-2025 ambulatory Deborah Roa Facility:[facility] Start: 06-10-2025 End: 06-10-2025 Patient encounter procedure Anay HiJorgito JUMPBASTING MACHINE OPERATOR-C -[facility] Work Phone: Start: 06-10-2025 End: 06-10-[address] Allan Jc DO Work Phone: -[facility] Start: 06-10-2025 End: 06-10-2025 [facility] Start: 06-03-2025 ambulatory [facility] Facility:[facility] Start: 05-29-2025 End: 05-29-[address] Allan Jc DO Work Phone: -Laboratory [facility] Start: 05-29-2025 End: 05-29-2025 Patient encounter procedure Deborah Roa JUMPBASTING MACHINE OPERATOR-C -Laboratory [facility] Start: 05-29-2025 End: 05-29-2025 ambulatory Deborah Roa Facility:[facility] Start: 05-20-2025 End: 05-20-[address] Allan Jc DO Work Phone: -Laboratory [facility] Start: 05-20-2025 End: 05-20-2025 Patient encounter procedure Deborah Roa JUMPBASTING MACHINE OPERATOR-C -Laboratory [facility] Start: 05-20-2025 End: 05-20-2025 ambulatory [facility] Facility:[facility] Start: 05-12-2025 End: 05-12-[address] Betty Steel MD -[facility] Work Phone: Start: 05-12-2025 End: 05-12-[address] Allan cJ DO Work Phone: [facility] Work Phone: Start: 05-05-2025 Non-patient / Non-visit Dr. Kevin Singh DO -[facility] Work Phone: Start: 05-04-2025 Non-patient / Non-visit Dr. Kevin Singh DO [facility] Work Phone: Start: 05-03-2025 Non-patient / Non-visit Dr. Meseret Minor DO -[facility] Work Phone: Start: 05-03-2025 ambulatory Deborah Roa Facility:[facility] Start: 05-03-2025 End: 05-05-2025 Evaluation and management of inpatient Dr. Meseret Minor DO -[facility] Work Phone: Start: 02-04-2024 End: 02-04-2024 [facility] Start: 11-15-2022 End: 11-15-2022 Emergency department patient visit Dr. OSIRIS BARRETT Facility:[id number] Start: 09-20-2022 End: 09-20-2022 Emergency department patient visit [facility]Emer[facility] Department Start: 03-09-2022 ambulatory Tony Altman Facility:[id number] Procedures Date Procedure Procedure Detail Performing Clinician Start: 06-23-2025 Plain X-ray abdomen Dr. Allan Jc DO Work Phone: Start: 06-17-2025 Plain X-ray abdomen Dr. Allan Jc DO Work Phone: Start: 06-10-[address] Allan Jc DO Work Phone: Start: 05-05-[address] Allan [...] Treatment Date Care Activity Detail Author Start: 09-23-2025 End: 09-23-2025 Patient encounter procedure -[facility] Work Phone: Start: 09-17-2025 Endoscopy upper small intestine w/biopsy SMALL BOWEL ENDOSCOPY/BIOPSY [facility] Start: 09-17-2025 Patient discharge [facility] Start: 07-17-2025 Basic metabolic 2008 panel with ionized calcium - Serum or Plasma [facility] Start: 07-17-2025 Cortisol [Mass/volume] in Serum or Plasma [facility] Start: 07-17-2025 Thyroid stimulating hormone measurement [facility] Start: 06-23-2025 [facility] Start: 05-05-2025 Patient discharge [facility] Start: 05-03-2025 Following clinical pathway protocol [facility] Start: 05-03-2025 Assessment of risk of venous thromboembolism [facility] Start: 05-03-2025 Inhalation therapy procedure [facility] Start: 05-03-2025 Insertion of catheter into peripheral vein [facility] Start: 05-03-2025 Measuring intake and output [facility] Start: 05-03-2025 Oxygen therapy [facility] Start: 05-03-2025 Providing care according to standard [facility] Start: 05-03-2025 Referral to service [facility] Start: 05-03-2025 [facility] Start: 05-03-2025 Hospital admission, emergency, from emergency room, medical nature [facility] Start: 05-03-2025 Urinalysis complete panel - Urine [facility] Start: 05-03-2025 Verification routine [facility] Start: 05-03-2025 Admission procedure [facility] Start: 05-03-2025 Osmolality of Urine [facility] Start: 05-03-2025 Sodium [Moles/volume] in Urine [facility] Start: 05-03-2025 Osmolality measurement, serum [facility] Start: 05-03-2025 Thyroid stimulating hormone measurement [facility] Start: 05-03-2025 [facility] Start: 09-20-2022 Electrocardiographic procedure [facility] Work Phone: Amphetamines [Presen ce] in Urine by Screen method >1000 ng/mL [facility] Anion gap in Serum or Plasma [facility] Anion gap in Serum or Plasma [facility] Anion gap in Serum or Plasma [facility] Anion gap in Serum or Plasma [facility] Benzodiazepine measu rement, urine [facility] BUN/Creatinine ratio [facility] BUN/Creatinine ratio [facility] BUN/Creatinine ratio [facility] BUN/Creatinine ratio [facility] Calcium [Mass/volume ] in Serum or Plasma [facility] Calcium [Mass/volume ] in Serum or Plasma [facility] Calcium [Mass/volume ] in Serum or Plasma [facility] Calcium [Mass/volume ] in Serum or Plasma [facility] Carbon dioxide, tota l [Moles/volume] in Central venous blood [facility] Carbon dioxide, tota l [Moles/volume] in Central venous blood [facility] Carbon dioxide, tota l [Moles/volume] in Central venous blood [facility] Carbon dioxide, tota l [Moles/volume] in Central venous blood [facility] CBC W Auto Different ial panel - Blood [facility] Cocaine measurement, urine [facility] Comprehensive metabo lic 2000 panel - Serum or Plasma [facility] Cortisol [Mass/volum e] in Serum or Plasma [facility] Creatinine [Mass/vol ume] in Serum or Plasma [facility] Creatinine [Mass/vol ume] in Serum or Plasma [facility] Creatinine [Mass/vol ume] in Serum or Plasma [facility] Creatinine [Mass/vol ume] in Serum or Plasma [facility] CT Chest [facility] fentaNYL [Presence] in Urine by Screen method [facility] Glucose [Mass/volume ] in Serum or Plasma [facility] Glucose [Mass/volume ] in Serum or Plasma [facility] Glucose [Mass/volume ] in Serum or Plasma [facility] Glucose [Mass/volume ] in Serum or Plasma [facility] Measurement of renal function [facility] Measurement of renal function [facility] Measurement of renal function [facility] Measurement of renal function [facility] Methadone measurement, urine [facility] Patient Education [facility] Work Phone: Patient referral [facility] Work Phone: Phencyclidine [Prese nce] in Urine [facility] Potassium measurement [facility] Potassium measurement [facility] Potassium measurement [facility] Potassium measurement [facility] Serum chloride measurement [facility] Serum chloride measurement [facility] Serum chloride measurement [facility] Serum chloride measurement [facility] Sodium measurement [facility] Sodium measurement [facility] Sodium measurement [facility] Sodium measurement [facility] Troponin T.cardiac [Mass/volume] in Serum or Plasma by High sensitivity method [facility] Urate [Mass/volume] in Serum or Plasma [facility] Urea nitrogen [Mass/ volume] in Serum or Plasma [facility] Urea nitrogen [Mass/ volume] in Serum or Plasma [facility] Urea nitrogen [Mass/ volume] in Serum or Plasma [facility] Urea nitrogen [Mass/ volume] in Serum or Plasma [facility] Urine cannabinoid measurement [facility] Urine opiate measurement [facility] Payers Date Payer Category Payer Medicaid [id number] 2025 Self-pay [id number] 2025 Medicare [id number] 241 [id number] 1970 Unknown [id number] 2.16.8 [id number] 1970 Unknown [id number] 2.16.8 40.1.242052.3.579.2.1069 Unknown [id number] Unknown [id number] 2.16.8 40.1.613726.3.579.2.462 Unknown [id number] 2.16.8 40.1.132730.3.579.2.462 Unknown [id number] 2.16.8 40.1.312630.3.579.2.462 Unknown [id number] 2.16.8 40.1.936419.3.579.2.462 Unknown [id number] 2.16.8 40.1.002756.3.579.2.462 Unknown [id number] 2.16.8 40.1.751285.3.579.2.462 Unknown [id number] 2.16.8 40.1.368850.3.579.2.462 Unknown [id number] 2.16.8 40.1.975399.3.579.2.462 Unknown [id number] 2.16.8 40.1.484657.3.579.2.462 Unknown [id number] 2.16.8 40.1.361427.3.579.2.462 Unknown [id number] 2.16.8 40.1.788164.3.579.2.462 Unknown [id number] 2.16.8 40.1.127051.3.579.2.462 Unknown [id number] 2.16.8 40.1.508262.3.579.2.462 Unknown [id number] 2.16.8 40.1.869924.3.579.2.462 Unknown [id number] 2.16.8 40.1.975919.3.579.2.462 Unknown [id number] 2.16.8 40.1.693161.3.579.2.462 Unknown [id number] 2.16.8 40.1.918071.3.579.2.462 Unknown [id number] 2.16.8 40.1.565358.3.579.2.462 Unknown [id number] 2.16.8 40.1.732573.3.579.2.462 Unknown [id number] 2.16.8 40.1.500193.3.579.2.462 Unknown [id number] 2.16.8 40.1.757378.3.579.2.462 Unknown [id number] 2.16.8 40.1.006653.3.579.2.462 Unknown [id number] 2.16.8 40.1.947900.3.579.2.462 Social History Date Type Detail Facility Start: 09-20-2022 End: 02-04-2024 Tobacco smoking status OKIS Unknown if ever smoked [facility] Start: 1970 Sex Assigned At Male [facility] Start: 05-03-2025 End: 09-15-2025 Tobacco smoking status NHIS Smokes tobacco daily (finding) [facility] Sex Male [facility] Goals Date Patient Goal Desired Activity /State Functional Status Date Assessment Result Facility 05-05-2025 Functional status Ambulates;Up ad michael [facility] Work Phone: Mental Status Date Assessment Result Facility 09-17-2025 Cognitive function Touch/Shaking [facility] Work Phone: 08-14-2025 Cognitive function Awake [facility] Work Phone: 05-05-2025 Cognitive function Voice/Name [facility] Work Phone: 05-03-2025 Cognitive function Level Of Cons ciousness Awake;Alert;Appropriate;Follow s Commands [facility] Work Phone: 02-04-2024 Cognitive function Level Of Cons ciousness Awake;Alert [facility] Work Phone: Clinical Notes 11-16-2022 to 09-17-2025 Note Date & Type Note Facility 09-17-2025 Consult note Note Date/Time September 17, 2025 3:50pm [facility] Medical Records Department [address] [place] [address] Anesthesia Postop Eval II 09/17/251421 MR#: [id number] Acct: [id number] Name: LYNNETTE GONG Rep #:[id number] : 1970 55 From: Mina Calle MD PCP: UMAIR Taveras Status:REG SDC Y Race: C Location: [facility]14-1 Anesthesia Postop Eval I Sum Postop Eval Completion status Anesthesia document: Postop Eval 1 completed: Yes Anesthesia Postop Eval I Summary Anesthesia Postop Eval I Summary: Anesthesia Postop Eval I: Assessment Summary Airway patent Yes 09/17/25 14:00 [email or web address] Spontaneous unlabored Yes 09/17/25 14:00 [email or web address] respirations Mental status Asleep 09/17/25 14:00 [email or web address] nausea No 09/17/25 14:00 [email or web address] Vomiting No 09/17/25 14:00 [email or web address] Anesthesia Postop Eval I: Fluid Summary Crystalloid volume administer 400 09/17/25 14:00 [email or web address] (ml) Colloids volume administered ( ml) Blood Product volume administered (ml) Total IV fluid infused 400 09/17/25 14:00 [email or web address] Anesthesia Postop Eval I: Summary Notes Anesthesia Complication No 09/17/25 14:00 [email or web address] Anesthesia Complication Comment: Post-operative progress note Anesthesia: Postop Eval II Evaluation Mental status: Awake Pain Level: 0 nausea: No Vomiting: No 09/17/251421 <Electronically signed by Mina Calle MD > Date _ Mina Calle MD Cosigner Signature: Date CC: ~ Signed [facility] Work Phone: 1(446) 884-659910-22-2025 Consult note Author Jean Jc [facility] Note Date/Time September 17, 2025 3 :00pm [facility] Medical Records Department [address] [place] [address] Anesthesia Postop Eval I 09/17/25 1359 MR#: [id number] Acct: [id number] Name: LYNNETTE GONG Rep #:[id number] : 1970 55 From: Jean Jc PCP: Deborah Roa JUMPBASTING MACHINE OPERATOR-C Status:REG SDC Y Race: C Location: [place] [address] Anesthesia: Postop Eval I Current Vital Signs Temperature: 97.2 F Pulse Rate: 76 Blood Pressure: 154/90 Respiratory Rate: 16 Pulse Ox: 98 Oxygen Delivery Method: Room Air Assessment Airway patent: Yes Spontaneous unlabored respirations: Yes Mental status: Asleep nausea: No Vomiting: No Anesthesia Complication: No Fluid Hydration Crystalloid volume administer (ml): 400 Total IV fluid infused: 400 Progress Note Anesthesia document: Postop Eval 1 completed: Yes 09/17/25 1400 <Electronically signed by Jean Jc > Date _ Jean Mendoza Signature: Date CC: ~ Signed [facility] Work Phone: 1(783) 217-111710-22-2025 Consult note Author Mina Calle [facility] Note Date/Time September 17, 2025 2 :31pm [facility] Medical Records Department [address] [place] [address] Pre-Anesthesia Evaluation 09/17/25 1330 MR#: [id number] Acct: [id number] Name: LYNNETTE GONG Rep #:[id number] : 1970 55 From: Mina Calle MD PCP: UMAIR Taveras Status:REG SDC Y Race: C Location: [facility] AC14-1 ASA Classification* ASA Classification ASA Classification: 3 Assessment & Plan Anesthesia* Anesthesia Assessment Anesthesia Assessment: Discussed sedation and/or anesthesia options, risks, benefits, and alternatives with patient/parents/legal guardian/POA. Questions invited. The patient/parents/legal guardian/POA seems to understand and agrees to proceedwith anesthesia plan. Reviewed the physical assessment, medical history, allergy history and patient home medications list prior to surgery/procedure/anesthetic and documented any changes. Performed airway and anesthesia risk assessments. Anesthesia Type Anesthesia Type: MAC Anesthesia Focused Assessment* Temperature: 97.6 F Pulse Rate: 74 Blood Pressure: 154/92 Respiratory Rate: 20 Pulse Ox: 98 Airway Assessment Mouth opens: >3 cm Mallampati Score: II Labs Anesthesia Preop lab: CBC WBC, (4.4-11.0) 11.1 K/mm3 H 06/17/25, 11:18 RBC, (4.6-6.2) 4.76 M/mm3 06/17/25, 11:18 Hgb, (13.0-16.5) 13.7 g/dL 06/17/25, 11:18 Hct, (40-54) 39.4 % L 06/17/25, 11:18 Plt Count, (150-450) 384 K/mm3 06/17/25, 11:18 CHEMISTRY Potassium, (3.3-5.1) 4.2 mmol/L 08/04/25, 15:05 Sodium, (133-145) 128 mmol/L L 08/04/25, 15:05 Magnesium, (1.5-2.2) 1.9 mg/dL 05/04/25, 04:35 Phosphorus, (2.7-4.5) 3.9 mg/dL 05/04/25, 04:35 BUN, (4-19) 9 mg/dL 08/04/25, 15:05 Creatinine, (0.70-1.20) 0.80 mg/dL 08/04/25, 15:05 Glucose, (70-99) 96 mg/dL 08/04/25, 15:05 TSH, (0.300-4.200) 1.670 uIU/mL 07/17/25, 12:00 COAG Pre-Assessment Diagnosis/Proposed Procedure Planned Operative Procedure(s): EGD Anesthesia History 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 When Was Last Pacemaker Check QUESTION #4 FULL TEXT: You/Your Family Experience fever (hyperthermia) with Anesthesia Last Oral Intake Last Oral intake: Last Oral Intake NPO since 05:00 09/17/25 12:52 Meds taken in AM with sips of Yes 09/17/25 12:52 water? 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 Female No 09/15/25 13:45 HX of Motion Sickness No 09/15/25 13:45 HX of N/V After Surgery No 09/15/25 13:45 Non-Smoker No 09/15/25 13:45 Duration of Surgery greater No 09/15/25 13:45 than 60 minutes Number of Risk Factors PONV Score Height & Weight Height & Weight: Anesthesia: Height & Weight Height 5 ft 7 in 09/17/25 12:52 Weight: 132 kg 09/17/25 12:52 Body Mass Index (BMI) 45.6 09/17/25 12:52 Respiratory Assessment Respiratory Assessment - assistant plant manager: Respiratory Tract Infection Hx - assistant plant manager Hx Respiratory Tract Infection No 09/15/25 13:45 STOP Sleep Apnea STOP Sleep Apnea - assistant plant manager: STOP Sleep Apnea - assistant plant manager Hx Hypertension Yes: STILL WORKING ON, 09/15/25 13:45 IMPROVING BUT NOT NORMAL Hx Sleep Apnea No 09/15/25 13:45 CPAP No 05/03/25 19:20 BIPAP No 05/03/25 19:20 Do you snore loudly (louder No 09/15/25 13:45 than talking or can be heard Do you often feel tired/ No 09/15/25 13:45 fatigued/ sleepy during daytime? Has anyone observed you stop No 09/15/25 13:45 breathing during sleep? STOP Results Negative 09/15/25 13:45 QUESTION #5 FULL TEXT : Do you snore loudly (louder than talking or can be heard through closed doors)? 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 Specify any problems Hx of Preganancy in last 3 N/A 09/15/25 13:45 Months Nurse Filling Out Transfusion NBUCHER 09/15/25 13:45 & Questions: Date: 09/15/25 09/15/25 13:45 Time: 13:46 09/15/25 13:45 Patient unable to answer at this time (ie. confused, unrespo /Reproduction History /Reproductive History - assistant plant manager: /Reproductive Hx- assistant plant manager Hx Now No 09/15/25 13:45 Gestational Age (in weeks): EDC: Hx Hx Para Hx Section SAB No 09/15/25 13:45 Active Medications Active Medications: Current Medications Generic Name Dose Route Start Last Admin Trade Name Freq PRN Reason Stop Dose Admin Lactated Ringer's 1,000 mls @ 15 mls/hr 09/17/25 12:30 09/17/25 12:55 IV 15 mls/hr .Q48H BANDAR Administration PFSH Medical History Emphysema, unspecified Wears glasses Loose, teeth Ambulates with cane High cholesterol Heartburn Gastric reflux Chronic cough Chest pain History of CVA (cerebrovascular accident) Back pain Arthritis Essential (primary) hypertension Osteoarthritis of knees, bilateral Tobacco use disorder, continuous Encounter for screening for malignant neoplasm of lung Constipation Chronic pain Smoker Migraines TIA (transient ischemic attack) HTN (hypertension) Morbid obesity Home Medications ?Medication ?Instructions ?Recorded ?Last Taken ?Type losartan 100 mg tablet 100 mg PO DAILY #30 tabs 08/21 Unknown Rx amlodipine 10 mg tablet 10 mg PO DAILY 06/23/2508/28 05:00 History bisacodyl 5 mg tablet,delayed 5 mg PO QDAY PRN constip ation 07/16/25 Unknown History release (Dulcolax (bisacodyl)) docusate sodium 100 mg capsule 200 mg PO QDAY 07/16/25 Unknown History (Stool Softener) linaclotide 290 mcg capsule 290 mcg PO QAM #90 caps Unknown Rx (Linzess) metoclopramide HCl 5 mg tablet 5 mg PO QAC #30 tabs Unknown Rx (Reglan) pantoprazole 40 mg tablet,delayed 40 mg PO QDAY #90 ta bs 08/11/25 Unknown Rx release Allergy/AdvReac Type Severity Reaction Status Date / Time No Known Allergies Allergy Verified 09/17/25 12:51 Surgical History History of right knee joint replacement Social History Smoking Status: Current every day smoker Tobacco: How many years used: 30 alcohol intake: never substance use type: other details: magic mushrooms for pain Review of Systems (Anesthesia) ROS Narrative System reviewed and no additional complaints, except as documented. 09/17/25 1331 <Electronically signed by Mina Calle MD > Date _ Mina Calle MD Cosigner Signature: Date CC: ~ Signed [facility] Work Phone: 1(823) 510-585110-22-2025 Consult note [facility] Medical Records Department [address] [place] [address] Anesthesia Postop Eval II 09/17/25 1422 MR#: [id number] Acct: [id number] Name: LYNNETTE GONG Rep #:[id number] : 1970 55 From: Mina Calle MD PCP: UMAIR Taveras Status:REG SDC Y Race: C Location: [place] [address]-1 Anesthesia Postop Eval I Sum Postop Eval Completion status Anesthesia document: Postop Eval 1 completed: Yes Anesthesia Postop Eval I Summary Anesthesia Postop Eval I Summary: Anesthesia Postop Eval I: Assessment Summary Airway patent Yes 09/17/25 14:00 [email or web address] Spontaneous unlabored Yes 09/17/25 14:00 [email or web address] respirations Mental status Asleep 09/17/25 14:00 [email or web address] nausea No 09/17/25 14:00 [email or web address] Vomiting No 09/17/25 14:00 [email or web address] Anesthesia Postop Eval I: Fluid Summary Crystalloid volume administer 400 09/17/25 14:00 [email or web address] (ml) Colloids volume administered ( ml) Blood Product volume administered (ml) Total IV fluid infused 400 09/17/25 14:00 [email or web address] Anesthesia Postop Eval I: Summary Notes Anesthesia Complication No 09/17/25 14:00 [email or web address] Anesthesia Complication Comment: Post-operative progress note Anesthesia: Postop Eval II Evaluation Mental status: Awake Pain Level: 0 nausea: No Vomiting: No 09/17/252 > Date _ Mina Calle MD Cosign Signature: Date CC: ~ Signed [facility]10-22-2025 History and physical note Author Tito Friend [facility] Note Date/Time September 17, 2025 1 :50pm [facility] Medical Records Department [address] [place] [address] History & Physical Exam 09/17/25 1248 MR#: [id number] Acct: [id number] Name: LYNNETTE GONG Rep #:[id number] : 1970 55 From: Tito Friend DO PCP: UMAIR Taveras Status:REG [facility] Location: [place] [address] HPI - General General Date of Admission: 09/17/25 Date of Service: 09/17/25 Chief Complaint: Abdominal pain with nausea vomiting HPI Narrative LYNNETTE GONG, is a 55 M who presents [Chief Complaint: Nausea and vomiting OV 08/11/2025 54y/o male presents with intractable nausea and dry heaves in the context of chronic moderate hyponatremia (serum sodium 118?128 mmol/L, most recent 128), high urine osmolality (480 mOsm/kg), urine sodium (48 mmol/L), severe constipation, headaches, normal TSH, indeterminate morning cortisol, and antihypertensive therapy (amlodipine, losartan). 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 He is scheduled for ACTH Stim Testing to be completed this , 08/14/2025. We have discussed use of ondansetron as excessive and likely contributing to constipation. I have prescribed metoclopramide 5 mg 3 times daily and we have reviewed potential side effects in detail. His frequent use of Excedrin is likely exacerbating his UGI symptoms and I have recommended he decrease use. He will start pantoprazole 40 mg once daily. In terms of constipation he did get good results previously with notable improvement in abdominal pain and nausea with Linzess 290 mcg. I have provided him samples and he will resume use of Linzess. He will follow-up with me in the office in 10 days. Patient Instructions: 1. Reduce use of Ondansetron this is likely contributing to worsening of constipation 2. Metoclopramide for nausea. Metoclopramide can cause tardive dyskinesia, a serious movement disorder that is often irreversible. There is no known treatment for tardive dyskinesia. The risk of developing tardive dyskinesia increases with duration of treatment and total cumulative dose. It is recommended to discontinue metoclopramide in patients who develop signs or symptoms of tardive dyskinesia. In some patients, symptoms lessen or resolve after metoclopramide is stopped. Avoid treatment with metoclopramide for longer than 12 weeks because of the increased risk of developing tardive dyskinesia with longer-term use. We have discussed 2 weeks wash out after 12 weeks of therapy and then resuming. We have discussed risk of recurrent symptoms (N/V) with holding therapy. 3. Resume Linzess 290mcg once daily, discussed risk of diarrhea and worsening hyponatremia. Samples provided and RX sent to pharmacy. If he is unable to afford Linzess (no RX insurance benefit) will provide additional samples and assist with PAP. 4. Proceed with ACTH Stim Test as scheduled on 08/14/2025 5. Reduce use of Excerdin 6. Start pantoprazole 40mg once daily 7. Follow-up in office on 08/21/2025 at 1130am. 8. Plan to proceed with EGD and Colonoscopy once safe. 9. Smoking cessation recommended - https://www.cdc.gov/tobacco/about/how-to-quit.html 10. Taper off Kratom Taking 1/8 cup of kratom powder daily for pain management poses significant risks, including gastrointestinal side effects (nausea, constipation, vomiting), neuropsychiatric effects (agitation, confusion, drowsiness), and the development of tolerance, dependence, and withdrawal symptoms. At this dose?approximately 15?20 grams, which is considered high?adverse effects are more likely and more severe, including potential for seizures, hepatotoxicity, and, in rare cases, , particularly with co-ingestion of other substances or contaminated products. The side effects of daily use of Kratom powder for the management of pain are primarily dose-dependent and include both mild and serious adverse effects. The most commonly reported are gastrointestinal symptoms such as nausea, constipation, and vomiting, which tend to occur at higher doses (typically >5 g/dose or >22 doses/week).[1- 2] Other frequent side effects include agitation, tachycardia, drowsiness, and confusion. Chronic dailyuse is associated with dependence and withdrawal symptoms, which may resemble but are generally milder than those seen with classic opioids. Withdrawal can include irritability, anxiety, insomnia, muscle aches, and mood disturbances. Tolerance to analgesic effects may develop with ongoing use. Serious but less common adverse effects include seizures, hallucinations, psychosis, liver toxicity, and, rarely, respiratory depression, coma, or ?especially in cases of polysubstance use or contaminated products. There is also evidence of organ toxicity, particularly affecting the liver and kidneys, although the risk is difficult to quantify due to variability in product composition and lack of standardized dosing. Additional reported effects include dry mouth, polyuria, arrhythmia, and impaired memory function. The risk of adverse effects increases with higher doses and more frequent use, and contamination with heavy metals or biological toxins is a recognized concern. In summary, daily kratom use for painmanagement is associated with a spectrum of side effects ranging from mild gastrointestinal symptoms to serious neurological and organ toxicities, with dependence and withdrawal being notable risks. Hyponatremia is not a recognized risk in medical literature. ACTH Stim testing shows normal cortisol response, indicating adrenal insufficiency is not the cause of low sodium. Please make patient aware and forward results to PCP. I strongly recommend he taper off use of Kratom powder as this is likely a significant contributing factor for his symptoms. Although kratom is not directly implicated in causing SIADH or hyponatremia, kratom-induced severe nausea could indirectly precipitate hyponatremia secondary to SIADH. This is because severe nausea is a well-established nonosmotic stimulus for ADH secretion. Taking kratom --> causes severe nausea --> which causes inappropriate release ofADH (SIADH) ---> causing hyponatremia (low sodium) Further research shows a case study showing a patient with daily kratom ingestion with hyponatremia-induced AMS. Below is a link to this NIH article https://pmc.ncbi.nlm.nih.gov/articles/YBZ0682624/ OV 08/26/25 - Continues to have daily nausea and dry heaving but no vomiting -Taking Zofran 10 times per day -Continues with kratom -Taking Excedrin intermittently ] [facility] Medical History Emphysema, unspecified Wears glasses Loose, teeth Ambulates with cane High cholesterol Heartburn Gastric reflux Chronic cough Chest pain History of CVA (cerebrovascular accident) Back pain Arthritis Essential (primary) hypertension Osteoarthritis of knees, bilateral Tobacco use disorder, continuous Encounter for screening for malignant neoplasm of lung Constipation Chronic pain Smoker Migraines TIA (transient ischemic attack) HTN (hypertension) Morbid obesity Home Medications ?Medication ?Instructions ?Recorded ?Last Taken ?Type losartan 100 mg tablet 100 mg PO DAILY #30 tabs 08/21 Unknown Rx amlodipine 10 mg tablet 10 mg PO DAILY 06/23/25 Unkn own History bisacodyl 5 mg tablet,delayed 5 mg PO QDAY PRN constip ation 07/16/25 Unknown History release (Dulcolax (bisacodyl)) docusate sodium 100 mg capsule 200 mg PO QDAY 07/16/25 Unknown History (Stool Softener) linaclotide 290 mcg capsule 290 mcg PO QAM #90 caps Unknown Rx (Linzess) metoclopramide HCl 5 mg tablet 5 mg PO QAC #30 tabs Unknown Rx (Reglan) pantoprazole 40 mg tablet,delayed 40 mg PO QDAY #90 ta bs 08/11/25 Unknown Rx release Allergy/AdvReac Type Severity Reaction Status Date / Time No Known Allergies Allergy Verified 09/15/25 13:41 Surgical History History of right knee joint replacement Social History Smoking Status: Current every day smoker Tobacco: How many years used: 30 alcohol intake: never substance use type: other details: magic mushrooms for pain ROS Constitutional Constitutional: Denies fatigue, fever(s), poor appetite, weight gain or weight loss Gastrointestinal Gastrointestinal: Denies belching, bloating, change in bowel habits, change in stool character, chewing difficulty, coffee ground emesis, constipation, cramping, diarrhea, dyspepsia, dysphagia, early satiety, excessive flatus, fecalincontinence, heartburn, hematemesis, hematochezia, hemorrhoids, loose stools, melena, nausea, odynophagia, rectal bleeding, tenesmus, vomiting or weight changes Physical Exam Const alert, oriented x3, no apparent distress and healthy appearing General Appearance: cooperative GI normal to inspection, nondistended, normoactive bowel sounds, soft to palpation,non-tender and non-distended Percussion: normal to percussion Rectal Exam: deferred Assessment & Plan Assessment/Plan (1) Abdominal pain: PLAN: Assessment and Plan Assessment and Plan (1) Nausea: Status: Acute Plan: Lynnette is a 55-year-old male patient here today for follow-up regarding his ongoing nausea, dry heaving and hyponatremia. Patient is established patient Juliette Diop NP however she is out of the office today and patient was seenby me for continued symptoms. Patient had ACTH stimulation test was with appropriate cortisol response which indicates there is not an adrenal problem ascause of his hyponatremia. Patient continues to use kratom daily and I did advise cessation and explained the possible correlation with his hyponatremia. I offered referral to psychiatry for help with tapering off of kratom however patient declines. Patient admits that is the only thing that controls his pain and is unwilling to discontinue at this time. He will be scheduled for EGD to evaluate his upper GI tract for etiology of his nausea. Will repeat CBC and CMPtoday. I provided more samples of Linzess to 90 mcg daily. I advise decreasinghis usage of Zofran and instead using Reglan. He is unsure if he is using the Reglan or not. Patient will follow-up with Elizabet in the office in 3 weeks. - EGD - Discontinue kratom - Decrease Zofran usage - Try Reglan - Repeat CBC and CMP (2) Abdominal pain: Status: Acute (3) Hyponatremia: Status: Acute Orders: Orders CBC W/Diff, Automated Today R11.0 - Nausea Comprehensive Metabolic Profil Today E87.1 - Hypo-osmolality and hyponatremia, R10.9 - Unspecified abdominal pain, R11.0 - Nausea 09/17/25 1250 <Electronically signed by Tito Morris DO> Cosigner Signature (if applicable): CC: UMAIR Roa; Tito Morris DO~ Signed [facility] Work Phone: 1([phone]) 136-190410-22-2025 Procedure note [facility] Medical Records Department [address] [place] [address] EGD Report MR#: [id number] Acct: [id number] Name: LYNNETTE GONG Rep #:[id number] : 1970 55 From: Tito Morris DO PCP: UMAIR Taveras Status:REG [facility] Patient Name: Lynnette Gong Procedure Date: 09/17/2025 1:32 PM Date of : 1970 Age: 55 Procedure: Upper GI endoscopy Indications: Epigastric abdominal pain Providers: Tito Morris DO Referring MD: Umair Taveras Medicines: Monitored Anesthesia Care Patient Profile: This is a 55 year old male. Refer to note in patient chart for documentation of history and physical. Patient has symptoms of acute epigastric abdominal pain, dysphagia with both liquids and solids, acute nausea and acute vomiting. Complications: No immediate complications. Procedure: Pre-Anesthesia Assessment: - Prior to the procedure, a History and Physical was performed, and patient medications and allergies were reviewed. The patient is competent. The risks and benefits of the procedure and the sedation options and risks were discussed with the patient. All questions were answered and informed consent was obtained. Patient identification and proposed procedure were verified by the physician in the pre-procedure area. Mental Status Examination: alert and oriented. Airway Examination: normal oropharyngeal airway and neck mobility. Respiratory Examination: clear to auscultation. CV Examination: normal. Prophylactic Antibiotics: The patient does not require prophylactic antibiotics. Prior Anticoagulants: The patient has taken no anticoagulant or antiplatelet agents except for NSAID medication. ASA Grade Assessment: II - A patient with mild systemic disease. After reviewing the risks and benefits, the patient was deemed in satisfactory condition to undergo the procedure. The anesthesia plan was to use monitored anesthesia care (MAC). Immediately prior to administration of medications, the patient was re-assessed for adequacy to receive sedatives. The heart rate, respiratory rate, oxygen saturations, blood pressure, adequacy of pulmonary ventilation, and response to care were monitored throughout the procedure. The physical status of the patient was re-assessed after the procedure. After obtaining informed consent, the endoscope was passed under direct vision. Throughout the procedure, the patient's blood pressure, pulse, and oxygen saturations were monitored continuously. The Endoscope was introduced through the mouth, and advanced to the fourth part of the duodenum. Small bowel enteroscopy was deemed necessary. The upper GI endoscopy was accomplished without difficulty. The patient tolerated the procedure well. Scope In: 1:45:02 PM Scope Out: 1:50:44 PM Total Procedure Duration Time 0 hours 5 minutes 42 seconds Findings: Diffuse, yellow plaques were found in the entire esophagus. Biopsies were taken with a cold forceps for histology. Verification of patient identification for the specimen was done. Estimated blood loss was minimal. Suspect gastroparesis due to absence of peristalsis, patient symptoms and retained gastric contents. Diffuse severe inflammation characterized by congestion (edema), erosions and erythema was found in the entire examined stomach. Biopsies were taken with a cold forceps for histology. Verification of patient identification for the specimen was done. Estimated blood loss was minimal. Biopsies were taken with a cold forceps for Helicobacter pylori testing. Verification of patient identification for the specimen was done. Estimated blood loss was minimal. Patchy severe inflammation characterized by erosions, erythema and friability was found in the entire duodenum. Biopsies were taken with a cold forceps for histology. Verification of patient identification for the specimen was done. Estimated blood loss was minimal. Impression: - Esophageal plaques were found, consistent with candidiasis. Biopsied. - Gastroparesis. - Chronic gastritis. Biopsied. - Chronic duodenitis. Biopsied. Recommendation: - Discharge patient to home. - Resume previous diet. - Continue present medications. - Await pathology results. - Fluconazole 200 mg once a day x 14 days - Nystatin swish and swallow 3 times a day x 10 days - Gastric emptying study - Hemoglobin A1c Procedure Code(s): --- Professional --- 92334, Small intestinal endoscopy, enteroscopy beyond second portion of duodenum, not including ileum; with biopsy, single or multiple CPT copyright 2021 [employer]. All rights reserved. The codes documented in this report are preliminary and upon signing teacher review may be revised to meet current compliance requirements. Tito Morris DO 09/17/2025 2:06:55 PM This report has been signed electronically. Number of Addenda: 0 Note Initiated On: 09/17/2025 1:32 PM 09/17/25 1407 Date _ Tito Morris DO Cosigner Signature: Date (if indicated) CC: UMAIR Roa; Tito Morris DO ~ Date Dictated: 09/17/25 1332 Date Transcribed: Spooler Operator Automatic: RF Signed [facility]10-22-2025 Procedure note [facility] Medical Records Department [address] [address] Provation Physician Letter MR#: [id number] Acct: [id number] Name: LYNNETTE GONG Rep #:[id number] : 1970 55 From: Tito Morris DO PCP: UMAIR Taveras Status:REG [facility] 09/17/2025 Umair Taveras Re : Upper GI endoscopy procedure for Lynnette Gong Brandy Roa This procedure was performed on Wednesday, September 17, 2025. My impressions and recommendations are as follows: Impressions : - Esophageal plaques were found, consistent with candidiasis. Biopsied. - Gastroparesis. - Chronic gastritis. Biopsied. - Chronic duodenitis. Biopsied. Recommendations : - Discharge patient to home. - Resume previous diet. - Continue present medications. - Await pathology results. - Fluconazole 200 mg once a day x 14 days - Nystatin swish and swallow 3 times a day x 10 days - Gastric emptying study - Hemoglobin A1c My findings are described in the full procedure note, which is enclosed. If I can be of further assistance, please feel free to contact me at . Sincerely, Tito Morris DO 09/17/2025 2:06:55 PM This report has been signed electronically. 09/17/25 1407 Date _ Tito Ziegler Signature: Date (if indicated) CC: JUMPBASTING MACHINE OPERATOR-C Deborah Roa; DO Michael Trent Date Dictated: 09/17/25 1332 Date Transcribed: Spooler Operator Automatic: RF Signed [facility]10-22-2025 Consult note [facility] Medical Records Department [address] [place] [address] Anesthesia Postop Eval I 09/17/25 1359 MR#: [id number] Acct: [id number] Name: BELTRANLYNNETTE Prema Rep #:[id number] : 1970 55 From: Jean Jc PCP: UMAIR Taveras Status:REG SDC Y Race: C Location: [place] [address] Anesthesia: Postop Eval I Current Vital Signs Temperature: 97.2 F Pulse Rate: 76 Blood Pressure: 154/90 Respiratory Rate: 16 Pulse Ox: 98 Oxygen Delivery Method: Room Air Assessment Airway patent: Yes Spontaneous unlabored respirations: Yes Mental status: Asleep nausea: No Vomiting: No Anesthesia Complication: No Fluid Hydration Crystalloid volume administer (ml): 400 Total IV fluid infused: 400 Progress Note Anesthesia document: Postop Eval 1 completed: Yes 09/17/25 1400 > Date _ Jean Mendoza Signature: Date CC: ~ Signed [facility]10-22-2025 Consult note [facility] Medical Records Department [address] [place] [address] Pre-Anesthesia Evaluation 09/17/25 1330 MR#: [id number] Acct: [id number] Name: LYNNETTE GONG Rep #:[id number] : 1970 55 From: Mina Calle MD PCP: UMAIR Taveras Status:REG SDC Y Race: C Location: [place] [address] ASA Classification* ASA Classification ASA Classification: 3 Assessment & Plan Anesthesia* Anesthesia Assessment Anesthesia Assessment: Discussed sedation and/or anesthesia options, risks, benefits, and alternatives with patient/parents/legal guardian/POA. Questions invited. The patient/parents/legal guardian/POA seems to understand and agrees to proceedwith anesthesia plan. Reviewed the physical assessment, medical history, allergy history and patient home medications list prior to surgery/procedure/anesthetic and documented any changes. Performed airway and anesthesia risk assessments. Anesthesia Type Anesthesia Type: MAC Anesthesia Focused Assessment* Temperature: 97.6 F Pulse Rate: 74 Blood Pressure: 154/92 Respiratory Rate: 20 Pulse Ox: 98 Airway Assessment Mouth opens: >3 cm Mallampati Score: II Labs Anesthesia Preop lab: CBC WBC, (4.4-11.0) 11.1 K/mm3 H 06/17/25, 11:18 RBC, (4.6-6.2) 4.76 M/mm3 06/17/25, 11:18 Hgb, (13.0-16.5) 13.7 g/dL 06/17/25, 11:18 Hct, (40-54) 39.4 % L 06/17/25, 11:18 Plt Count, (150-450) 384 K/mm3 06/17/25, 11:18 CHEMISTRY Potassium, (3.3-5.1) 4.2 mmol/L 08/04/25, 15:05 Sodium, (133-145) 128 mmol/L L 08/04/25, 15:05 Magnesium, (1.5-2.2) 1.9 mg/dL 05/04/25, 04:35 Phosphorus, (2.7-4.5) 3.9 mg/dL 05/04/25, 04:35 BUN, (4-19) 9 mg/dL 08/04/25, 15:05 Creatinine, (0.70-1.20) 0.80 mg/dL 08/04/25, 15:05 Glucose, (70-99) 96 mg/dL 08/04/25, 15:05 TSH, (0.300-4.200) 1.670 uIU/mL 07/17/25, 12:00 COAG Pre-Assessment Diagnosis/Proposed Procedure Planned Operative Procedure(s): EGD Anesthesia History 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 When Was Last Pacemaker Check QUESTION #4 FULL TEXT: You/Your Family Experience fever (hyperthermia) with Anesthesia Last Oral Intake Last Oral intake: Last Oral Intake NPO since 05:00 09/17/25 12:52 Meds taken in AM with sips of Yes 09/17/25 12:52 water? 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 Female No 09/15/25 13:45 HX of Motion Sickness No 09/15/25 13:45 HX of N/V After Surgery No 09/15/25 13:45 Non-Smoker No 09/15/25 13:45 Duration of Surgery greater No 09/15/25 13:45 than 60 minutes Number of Risk Factors PONV Score Height & Weight Height & Weight: Anesthesia: Height & Weight Height 5 ft 7 in 09/17/25 12:52 Weight: 132 kg 09/17/25 12:52 Body Mass Index (BMI) 45.6 09/17/25 12:52 Respiratory Assessment Respiratory Assessment - assistant plant manager: Respiratory Tract Infection Hx - assistant plant manager Hx Respiratory Tract Infection No 09/15/25 13:45 STOP Sleep Apnea STOP Sleep Apnea - assistant plant manager: STOP Sleep Apnea - assistant plant manager Hx Hypertension Yes: STILL WORKING ON, 09/15/25 13:45 IMPROVING BUT NOT NORMAL Hx Sleep Apnea No 09/15/25 13:45 CPAP No 05/03/25 19:20 BIPAP No 05/03/25 19:20 Do you snore loudly (louder No 09/15/25 13:45 than talking or can be heard Do you often feel tired/ No 09/15/25 13:45 fatigued/ sleepy during daytime? Has anyone observed you stop No 09/15/25 13:45 breathing during sleep? STOP Results Negative 09/15/25 13:45 QUESTION #5 FULL TEXT : Do you snore loudly (louder than talking or can be heard through closeddoors)? 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 Specify any problems Hx of Preganancy in last 3 N/A 09/15/25 13:45 Months Nurse Filling Out Transfusion NBUCHER 09/15/25 13:45 & Questions: Date: 09/15/25 09/15/25 13:45 Time: 13:46 09/15/25 13:45 Patient unable to answer at this time (ie. confused, unrespo /Reproduction History /Reproductive History - assistant plant manager: /Reproductive Hx- assistant plant manager Hx Now No 09/15/25 13:45 Gestational Age (in weeks): EDC: Hx Hx Para Hx Section SAB No 09/15/25 13:45 Active Medications Active Medications: Current Medications Generic Name Dose Route Start Last Admin Trade Name Freq PRN Reason Stop Dose Admin Lactated Ringer's 1,000 mls @ 15 mls/hr 09/17/25 12:30 09/17/25 12:55 IV 15 mls/hr .Q48H BANDAR Administration PFSH Medical History Emphysema, unspecified Wears glasses Loose, teeth Ambulates with cane High cholesterol Heartburn Gastric reflux Chronic cough Chest pain History of CVA (cerebrovascular accident) Back pain Arthritis Essential (primary) hypertension Osteoarthritis of knees, bilateral Tobacco use disorder, continuous Encounter for screening for malignant neoplasm of lung Constipation Chronic pain Smoker Migraines TIA (transient ischemic attack) HTN (hypertension) Morbid obesity Home Medications ?Medication ?Instructions ?Recorded ?Last Taken ?Type losartan 100 mg tablet 100 mg PO DAILY #30 tabs 08/21 Unknown Rx amlodipine 10 mg tablet 10 mg PO DAILY 06/23/2508/28 05:00 History bisacodyl 5 mg tablet,delayed 5 mg PO QDAY PRN constip ation 07/16/25 Unknown History release (Dulcolax (bisacodyl)) docusate sodium 100 mg capsule 200 mg PO QDAY 07/16/25 Unknown History (Stool Softener) linaclotide 290 mcg capsule 290 mcg PO QAM #90 caps Unknown Rx (Linzess) metoclopramide HCl 5 mg tablet 5 mg PO QAC #30 tabs Unknown Rx (Reglan) pantoprazole 40 mg tablet,delayed 40 mg PO QDAY #90 ta bs 08/11/25 Unknown Rx release Allergy/AdvReac Type Severity Reaction Status Date / Time No Known Allergies Allergy Verified 09/17/25 12:51 Surgical History History of right knee joint replacement Social History Smoking Status: Current every day smoker Tobacco: How many years used: 30 alcohol intake: never substance use type: other details: magic mushrooms for pain Review of Systems (Anesthesia) ROS Narrative System reviewed and no additional complaints, except as documented. 09/17/25 1331 > Date _ Mina Calle MD Cosigner Signature: Date CC: ~ Signed [facility]10-22-2025 History and physical note [facility] Medical Records Department [address] [place] [address] History & Physical Exam 09/17/25 1248 MR#: [id number] Acct: [id number] Name: LYNNETTE GONG Rep #:[id number] : 1970 55 From: Tito Friend PCP: UMAIR Taveras Status:REG [facility] Location: [place] [address] HPI - General General Date of Admission: 09/17/25 Date of Service: 09/17/25 Chief Complaint: Abdominal pain with nausea vomiting HPI Narrative LYNNETTE GONG, is a 55 M who presents [Chief Complaint: Nausea and vomiting OV 08/11/2025 54y/o male presents with intractable nausea and dry heaves in the context of chronic moderate hyponatremia (serum sodium 118?128 mmol/L, most recent 128), high urine osmolality (480 mOsm/kg), urine sodium (48 mmol/L), severe constipation, headaches, normal TSH, indeterminate morning cortisol, and an tihypertensive therapy (amlodipine, losartan). 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 He is scheduled for ACTH Stim Testing to be completed this , 08/14/2025. We have discussed use of ondansetron as excessive and likely contributing to constipation. I have prescribed metoclopramide 5 mg 3 times daily and we have reviewed potential side effects in detail. His frequent use of Excedrin islikely exacerbating his UGI symptoms and I have recommended he decrease use. He will start pantoprazole 40 mg once daily. In terms of constipation he did get good results previously with notable improvement in abdominal pain and nausea with Linzess 290 mcg. I have provided him samples and he will resume use of Linzess. He will follow-up with me in the office in 10 days. Patient Instructions: 1. Reduce use of Ondansetron this is likely contributing to worsening of constipation 2. Metoclopramide for nausea. Metoclopramide can cause tardive dyskinesia, a serious movement disorder that is often irreversible. There is no known treatment for tardive dyskinesia. The risk of developing tardive dyskinesia increases with duration of treatment and total cumulative dose. It is recom mended to discontinue metoclopramide in patients who develop signs or symptoms of tardive dyskinesia. In some patients, symptoms lessen or resolve after metoclopramide is stopped. Avoid treatment with metoclopramide for longer than 12 weeks because of the increased risk of developing tardive dyskinesia with longer-term use. We have discussed 2 weeks wash out after 12 weeks of therapy and then resuming. We have discussed risk of recurrent symptoms (N/V) with holding therapy. 3. Resume Linzess 290mcg once daily, discussed risk of diarrhea and worsening hyponatremia. Samplesprovided and RX sent to pharmacy. If he is unable to afford Linzess (no RX insurance benefit) will provide additional samples and assist with PAP. 4. Proceed with ACTH Stim Test as scheduled on 08/14/2025 5. Reduce use of Excerdin 6. Start pantoprazole 40mg once daily 7. Follow-up in office on 08/21/2025 at 1130am. 8. Plan to proceed with EGD and Colonoscopy once safe. 9. Smoking cessation recommended - https://www.cdc.gov/tobacco/about/how-to-quit.html 10. Taper off Kratom Taking 1/8 cup of kratom powder daily for pain management poses significant risks, including gastrointestinal side effects (nausea, constipation, vomiting), neuropsychiatric effects (agitation, confusion, drowsiness), and the development of tolerance, dependence, and withdrawal symptoms. At this dos e?approximately 15?20 grams, which is considered high?adverse effects are more likely and more severe, including potential for seizures, hepatotoxicity, and, in rare cases, , particularly with co-ingestion of other substances or contaminated products. The side effects of daily use of Kratom powder for the management of pain are primarily dose-dependent and include both mild and serious adverse effects. The most commonly reported are gastrointestinal symptoms such as nausea, constipation, and vomiting, which tend to occur at higher doses (typically >5 g/dose or >22 doses/week).[1-2]Other frequent side effects include agitation, tachycardia, drowsiness, and confusion. Chronic daily use is associated with dependence and withdrawal symptoms, which may resemble but are generally milder than those seen with classic opioids. Withdrawal can include irritability, anxiety, insomnia, muscle aches, and mood disturbances. Tolerance to analgesic effects may develop with ongoing use. Serious but less common adverse effects include seizures, hallucinations, psychosis, liver toxicity, and, rarely, respiratory depression, coma, or ?especially in cases of polysubstance use or contaminated products. There is also evidence of organ toxicity, particularly affecting the liver and kidneys, although the risk is difficult to quantify due to variability in product composition and lack of standardized dosing. Additional reported effects include dry mouth, polyuria, arrhythmia, and impaired memory function. The risk of adverse effects increases with higher doses and more frequent use, and contamination with heavy metals or biological toxins is a recognized concern. In summary, daily kratom use for painmanagement is associated with a spectrum of side effects ranging from mild gastrointestinal symptoms to serious neurological and organ toxicities, with dependence and withdrawal being notable risks. Hyponatremia is not a recognized risk in medical literature. ACTH Stim testing shows normal cortisol response, indicating adrenal insufficiency is not the causeof low sodium. Please make patient aware and forward results to PCP. I strongly recommend he taper off use of Kratom powder as this is likely a significant contributing factor for his symptoms. Although kratom is not directly implicated in causing SIADH or hyponatremia, kratom- induced severe nauseacould indirectly precipitate hyponatremia secondary to SIADH. This is because severe nausea is a well-established nonosmotic stimulus for ADH secretion. Taking kratom --> causes severe nausea --> which causes inappropriate release ofADH (SIADH) ---> causing hyponatremia (low sodium) Further research shows a case study showing a patient with daily kratom ingestion with hyponatremia-induced AMS. Below is a link to this NIH article https://pmc.ncbi.nlm.nih.gov/articles/IHT3055244/ OV 08/26/25 - Continues to have daily nausea and dry heaving but no vomiting -Taking Zofran 10 times per day -Continues with kratom -Taking Excedrin intermittently ] [facility] Medical History Emphysema, unspecified Wears glasses Loose, teeth Ambulates with cane High cholesterol Heartburn Gastric reflux Chronic cough Chest pain History of CVA (cerebrovascular accident) Back pain Arthritis Essential (primary) hypertension Osteoarthritis of knees, bilateral Tobacco use disorder, continuous Encounter for screening for malignant neoplasm of lung Constipation Chronic pain Smoker Migraines TIA (transient ischemic attack) HTN (hypertension) Morbid obesity Home Medications ?Medication ?Instructions ?Recorded ?Last Taken ?Type losartan 100 mg tablet 100 mg PO DAILY #30 tabs 08/21 Unknown Rx amlodipine 10 mg tablet 10 mg PO DAILY 06/23/25 Unkn own History bisacodyl 5 mg tablet,delayed 5 mg PO QDAY PRN constip ation 07/16/25 Unknown History release (Dulcolax (bisacodyl)) docusate sodium 100 mg capsule 200 mg PO QDAY 07/16/25 Unknown History (Stool Softener) linaclotide 290 mcg capsule 290 mcg PO QAM #90 caps Unknown Rx (Linzess) metoclopramide HCl 5 mg tablet 5 mg PO QAC #30 tabs Unknown Rx (Reglan) pantoprazole 40 mg tablet,delayed 40 mg PO QDAY #90 ta bs 08/11/25 Unknown Rx release Allergy/AdvReac Type Severity Reaction Status Date / Time No Known Allergies Allergy Verified 09/15/25 13:41 Surgical History History of right knee joint replacement Social History Smoking Status: Current every day smoker Tobacco: How many years used: 30 alcohol intake: never substance use type: other details: magic mushrooms for pain ROS Constitutional Constitutional: Denies fatigue, fever(s), poor appetite, weight gain or weight loss Gastrointestinal Gastrointestinal: Denies belching, bloating, change in bowel habits, change in stool character, chewing difficulty, coffee ground emesis, constipation, cramping, diarrhea, dyspepsia, dysphagia, earlysatiety, excessive flatus, fecalincontinence, heartburn, hematemesis, hematochezia, hemorrhoids, loose stools, melena, nausea, odynophagia, rectal bleeding, tenesmus, vomiting or weight changes Physical Exam Const alert, oriented x3, no apparent distress and healthy appearing General Appearance: cooperative GI normal to inspection, nondistended, normoactive bowel sounds, soft to palpation,non-tender and non-distended Percussion: normal to percussion Rectal Exam: deferred Assessment & Plan Assessment/Plan (1) Abdominal pain: PLAN: Assessment and Plan Assessment and Plan (1) Nausea: Status: Acute Plan: Lynnette is a 55-year-old male patient here today for follow-up regarding his ongoing nausea, dry heaving and hyponatremia. Patient is established patient Juliette Diop NP however she is out of theoffice today and patient was seenby me for continued symptoms. Patient had ACTH stimulation test was with appropriate cortisol response which indicates there is not an adrenal problem ascause of his hyponatremia. Patient continues to use kratom daily and I did advise cessation and explained the possible correlation with his hyponatremia. I offered referral to psychiatry for help with tapering offof kratom however patient declines. Patient admits that is the only thing that controls his pain and is unwilling to discontinue at this time. He will be scheduled for EGD to evaluate his upper GI tract for etiology of his nausea. Will repeat CBC and CMPtoday. I provided more samples of Linzess to 90 mcg daily. I advise decreasinghis usage of Zofran and instead using Reglan. He is unsure if he is using the Reglan or not. Patient will follow-up with Elizabet in the office in 3 weeks. - EGD - Discontinue kratom - Decrease Zofran usage - Try Reglan - Repeat CBC and CMP (2) Abdominal pain: Status: Acute (3) Hyponatremia: Status: Acute Orders: Orders CBC W/Diff, Automated Today R11.0 - Nausea Comprehensive Metabolic Profil Today E87.1 - Hypo-osmolality and hyponatremia, R10.9 - Unspecified abdominal pain, R11.0 - Nausea 09/17/25 1250 Cosigner Signature (if applicable): CC: UMAIR Roa; Tito Morris, ~ Signed [facility]10-22-2025 [facility] Medical Records Department [address] [place] [address] History Physical Exam 09/17/25 1248 MR#: [id number] Acct: [id number] Name: LYNNETTE GONG Rep #: [id number] : 1970 55 From: Tito Morris DO PCP: UMAIR Taveras Status:REG [facility] Location: [facility] HPI - General General Date of Admission: 09/17/25 Date of Service: 09/17/25 Chief Complaint: Abdominal pain with nausea vomiting HPI Narrative LYNNETTE GONG, is a 55 M who presents [Chief Complaint: Nausea and vomiting OV 08/11/2025 54y/o male presents with intractable nausea and dry heaves in the context of chronic moderate hyponatremia (serum sodium 118???128 mmol/L, most recent 128), high urine osmolality (480 mOsm/kg), urine sodium (48 mmol/L), severe constipation, headaches, normal TSH, indeterminate morning cortisol, and antihypertensive therapy (amlodipine, losartan). 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 He is scheduled for ACTH Stim Testing to be completed this , 08/14/2025. We have discussed use of ondansetron as excessive and likely contributing to constipation. I have prescribed metoclopramide 5 mg 3 times daily and we have reviewed potential side effects in detail. His frequent use of Excedrin is likely exacerbating his UGI symptoms and I have recommended he decrease use. He will start pantoprazole 40 mg once daily. In terms of constipation he did get good results previously with notable improvement in abdominal pain and nausea with Linzess 290 mcg. I have provided him samples and he will resume use of Linzess. He will follow-up with me in the office in 10 days. Patient Instructions: 1. Reduce use of Ondansetron this is likely contributing to worsening of constipation 2. Metoclopramide for nausea. Metoclopramide can cause tardive dyskinesia, a serious movement disorder that is often irreversible. There is no known treatment for tardive dyskinesia. The risk of developing tardive dyskinesia increases with duration of treatment and total cumulative dose. It is recommended to discontinue metoclopramide in patients who develop signs or symptoms of tardive dyskinesia. In some patients, symptoms lessen or resolve after metoclopramide is stopped. Avoid treatment with metoclopramide for longer than 12 weeks because of the increased risk of developing tardive dyskinesia with longer-term use. We have discussed 2 weeks wash out after 12 weeks of therapy and then resuming. We have discussed risk of recurrent symptoms (N/V) with holding therapy. 3. Resume Linzess 290mcg once daily, discussed risk of diarrhea and worsening hyponatremia. Samples provided and RX sent to pharmacy. If he is unable to afford Linzess (no RX insurance benefit) will provide additional samples and assist with PAP. 4. Proceed with ACTH Stim Test as scheduled on 08/14/2025 5. Reduce use of Excerdin 6. Start pantoprazole 40mg once daily 7. Follow-up in office on 08/21/2025 at 1130am. 8. Plan to proceed with EGD and Colonoscopy once safe. 9. Smoking cessation recommended - https://www.cdc.gov/tobacco/about/how-to-quit.html 10. Taper off Kratom Taking 1/8 cup of kratom powder daily for pain management poses significant risks, including gastrointestinal side effects (nausea, constipation, vomiting), neuropsychiatric effects (agitation, confusion, drowsiness), and the development of tolerance, dependence, and withdrawal symptoms. At this dose???approximately 15???20 grams, which is considered high???adverse effects are more likelyand more severe, including potential for seizures, hepatotoxicity, and, in rare cases, , particularly with co-ingestion of other substances or contaminated products. The side effects of daily use of Kratom powder for the management of pain are primarily dose- dependent and include both mild and serious adverse effects. The most commonly reported are gastrointestinal symptoms such as nausea, constipation, and vomiting, which tend to occur at higher doses (typically >5 g/dose or >22 doses/week).[1-2] Other frequent side effects include agitation, tachycardia, drowsiness, and confusion. Chronic daily use is associated with dependence and withdrawal symptoms, which may resemble but are generally milder than those seen with classic opioids. Withdrawal can include irritability, anxiety, insomnia, muscle aches, and mood disturbances. Tolerance to analgesic effects may develop with ongoing use. Serious but less common adverse effects include seizures, hallucinations, psychosis, liver toxicity, and, rarely, respiratory depression, coma, or ???especially in cases of polysubstance use or contaminated products. There is also evidence of organ toxicity, particularl (more content not included)...[facility]09-30-2025 Progress [facility] Gastroenterology [address] [place] [address] OFFICE VISIT Date of Service: 08/26/25 MR#: [id number] Acct: [id number] Name: LYNNETTE GONG Rep #: [id number] : 1970 Provider: LANA Adan Age/Sex: 55/M Location: [facility] [place] Status: Signed Intake Vital Signs 08/11/25 14:40 08/14/25 09:48 Height 5 ft 7 in 5 ft 7 in Weight: 304 lb 4 oz BMI 47.6 BP 144/87 H Respiration 18 Pulse 82 Temp 98.8 F Pulse Oximetry (%) 93 Oxygen Delivery Method room air Intake Visit Reasons: SCHEDULE FU PER ANANYA Chief Complaint: Nausea and vomiting Aquaculturist Required: No Accompanied by: Self Is patient in pain?: Yes Allergies No Known Allergies Allergy (Verified 08/26/25 11:30) Medications ?Medication ?Instructions ?Recorded ?Confirmed ?Type losartan 100 mg tablet 100 mg PO DAILY #30 tabs 08/2108/26/25 Rx amlodipine 10 mg tablet 10 mg PO DAILY 06/23/2507/30 History ondansetron 4 mg disintegrating 4 mg PO Q8H PRN PRN Na usea #10 tabs 06/23/25 08/26/25 Rx tablet bisacodyl 5 mg tablet,delayed 5 mg PO QDAY PRN constip ation 07/16/25 08/26/25 History release (Dulcolax (bisacodyl)) docusate sodium 100 mg capsule 100 mg PO QDAY 07/16/25 08/26/25 History (Stool Softener) linaclotide 290 mcg capsule 290 mcg PO QAM #90 caps 08/26/25 Rx (Linzess) metoclopramide HCl 5 mg tablet 5 mg PO QAC #30 tabs 08/26/25 Rx (Reglan) pantoprazole 40 mg tablet,delayed 40 mg PO QDAY #90 ta bs 08/11/25 08/26/25 Rx release PFSH Medical History History of CVA (cerebrovascular accident) Back pain Arthritis Essential (primary) hypertension Osteoarthritis of knees, bilateral Tobacco use disorder, continuous Encounter for screening for malignant neoplasm of lung Constipation Chronic pain Smoker Migraines TIA (transient ischemic attack) HTN (hypertension) Morbid obesity Surgical History History of right knee joint replacement Social History Smoking Status: Current every day smoker Tobacco: How many years used: 30 alcohol intake: never substance use type: other details: magic mushrooms for pain HPI HPI Chief Complaint: Nausea and vomiting Details: LYNNETTE GONG, is a 55 M who presents to the office today for follow-up. OV 08/11/2025 54y/o male presents with intractable nausea and dry heaves in the context of chronic moderate hyponatremia (serum sodium 118?128 mmol/L, most recent 128), high urine osmolality (480 mOsm/kg), urine sodium (48 mmol/L), severe constipation, headaches, normal TSH, indeterminate morning cortisol, and an tihypertensive therapy (amlodipine, losartan). 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 He is scheduled for ACTH Stim Testing to be completed this , 08/14/2025. We have discussed use of ondansetron as excessive and likely contributing to constipation. I haveprescribed metoclopramide 5 mg 3times daily and we have reviewed potential sideeffects in detail. His frequent use of Excedrin is likely exacerbating his UGI symptoms and I have recommended he decrease use. He will start pantoprazole 40 mg once daily. In terms of constipation he did get good results previously withnotable improvement in abdominal pain and nausea with Linzess 290 mcg. I have provided him samples and he will resume use of Linzess. He will follow-up with me in the office in 10 days. Patient Instructions: 1. Reduce use of Ondansetron this is likely contributing to worsening of constipation 2. Metoclopramide for nausea. Metoclopramide can cause tardive dyskinesia, a serious movement disorder that is often irreversible. There is no known treatment for tardive dyskinesia. The risk of developing tardive dyskinesia increases with duration of treatment and total cumulative dose. It is recom mended to discontinue metoclopramide in patients who develop signs or symptoms of tardive dyskinesia. In some patients, symptoms lessen or resolve after metoclopramide is stopped. Avoid treatment with metoclopramide for longer than 12 weeks because of the increased risk of developing tardive dyskinesia with longer-term use. We have discussed 2 weeks wash out after 12 weeks of therapy and then resuming. We have discussed risk of recurrent symptoms (N/V) with holding therapy. 3. Resume Linzess 290mcg once daily, discussed risk of diarrhea and worsening hyponatremia. Samplesprovided and RX sent to pharmacy. If he is unable to afford Linzess (no RX insurance benefit) will provide additional samples and assist with PAP. 4. Proceed with ACTH Stim Test as scheduled on 08/14/2025 5. Reduce use of Excerdin 6. Start pantoprazole 40mg once daily 7. Follow-up in office on 08/21/2025 at 1130am. 8. Plan to proceed with EGD and Colonoscopy once safe. 9. Smoking cessation recommended - https://www.cdc.gov/tobacco/about/how-to-quit.html 10. Taper off Kratom Taking 1/8 cup of kratom powder daily for pain management poses significant risks, including gastrointestinal side effects (nausea, constipation, vomiting),neuropsychiatric effects (agitation, confusion, drowsiness), and the developmentof tolerance, dependence, and withdrawal symptoms. At this dose? approximately 15?20 grams, which is considered high?adverse effects are more likely and more severe, including potential for seizures, hepatotoxicity, and, in rare cases, , particularly with co-ingestion of other substances or contaminated products. The side effects of daily use of Kratom powder for the management of pain are primarily dose-dependent and include both mild and serious adverseeffects. The most commonly reported are gastrointestinal symptoms such as nausea, constipation, andvomiting, which tend to occur at higher doses (typically >5 g/dose or >22 doses/week).[1-2] Other frequent side effects include agitation, tachycardia, drowsiness, and confusion. Chronic daily use is associated with dependence and withdrawal symptoms, which may resemble but are generally milder than those seen with classic opioids. Withdrawal can include irritability, anxiety, insomnia, muscle aches, and mood disturbances. Tolerance to analgesic effects may develop with ongoing use. Serious but less common adverse effects include seizures, hallucinations, psychosis, liver toxicity, and,rarely, respiratory depression, coma, or ?especially in cases of polysubstance use or contaminated products. There is also evidence of organ toxicity, particularly affecting the liver and kidneys, although the risk is difficult to quantify due to variability in product composition and lack of s tandardized dosing. Additional reported effects include dry mouth, polyuria, arrhythmia, and impaired memory function. The risk of adverse effects increases with higher doses and more frequent use, and contamination with heavy metals or biological toxins is a recognized concern. In summary, daily kratom use for painmanagement is associated with a spectrum of side effects ranging from mild gastrointestinal symptoms to serious neurological and organ toxicities, with dependence and withdrawal being notable risks. Hyponatremia is not a recognized risk in medical literature. ACTH Stim testing shows normal cortisol response, indicating adrenal insufficiency is not the causeof low sodium. Please make patient aware and forward results to PCP. I strongly recommend he taper off use of Kratom powder as this is likely a significant contributing factor for his symptoms. Although kratom is not directly implicated in causing SIADH or hyponatremia, kratom- induced severe nauseacould indirectly precipitate hyponatremia secondary to SIADH. This is because severe nausea is a well-established nonosmotic stimulus for ADH secretion. Taking kratom --> causes severe nausea --> which causes inappropriate release ofADH (SIADH) ---> causing hyponatremia (low sodium) Further research shows a case study showing a patient with daily kratom ingestion with hyponatremia-induced AMS. Below is a link to this NIH article https://pmc.ncbi.nlm.nih.gov/articles/DQD6278369/ OV 08/26/25 - Continues to have daily nausea and dry heaving but no vomiting -Taking Zofran 10 times per day -Continues with kratom -Taking Excedrin intermittently ROS Const Constitutional: No fatigue, fever(s) or weight change ENT ENT: No difficulty swallowing Gastro GI: Positive for abdominal pain, diarrhea and nausea/dyspepsia; No belching, bloating, change in bowel habits, change in stool character, coffeeground emesis, constipation, cramping, heartburn, difficulty swallowing, feelingfull early, excessive flatus, incontinent of stools, Vomiting blood/hematemesis,Blood in stool, loose stools, Black,tarry stools, pain with swallowing, vomitingor other Musc Musculoskeletal: No joint pain Skin Skin: No yellowing of the eye or itchy eyes Psych Psychiatric: No anxiety and No depression Endo Endocrine: No fatigue or weight change Aller/Imm Allergy/Immunologic: No itchy eyes Ankit/Lymp Hematologic/Lymphatic: No easy bleeding or easy bruising Exam Const General: cooperative Nutritional Appearance: overweight Orientation: alert HENMT Head: normal to inspection Eyes General: appearance normal, both eyes and all related structures Neck Neck: normal visual inspection Chest Chest palpation & inspection: normal inspection of the chest Resp Effort & Inspection: normal respiratory effort Cardio Rate: regular rate Rhythm: regular rhythm GI Inspection: normal to inspection and obesity Auscultation: normal bowel sounds Palpation: firm, no guarding and nontender Assessment and Plan Assessment and Plan (1) Nausea: Status: Acute Plan: Lynnette is a 55-year-old male patient here today for follow-up regarding his ongoing nausea, dry heaving and hyponatremia. Patient is established patient Juliette Diop NP however she is out of theoffice today and patient was seenby me for continued symptoms. Patient had ACTH stimulation test was with appropriate cortisol response which indicates there is not an adrenal problem ascause of his hyponatremia. Patient continues to use kratom daily and I did advise cessation and explained the possible correlation with his hyponatremia. I offered referral to psychiatry for help with tapering offof kratom however patient declines. Patient admits that is the only thing that controls his pain and is unwilling to discontinue at this time. He will be scheduled for EGD to evaluate his upper GI tract for etiology of his nausea. Will repeat CBC and CMPtoday. I provided more samples of Linzess to 90 mcg daily. I advise decreasinghis usage of Zofran and instead using Reglan. He is unsure if he is using the Reglan or not. Patient will follow-up with Elizabet in the office in 3 weeks. - EGD - Discontinue kratom - Decrease Zofran usage - Try Reglan - Repeat CBC and CMP (2) Abdominal pain: Status: Acute (3) Hyponatremia: Status: Acute Orders: Orders CBC W/Diff, Automated Today R11.0 - Nausea Comprehensive Metabolic Profil Today E87.1 - Hypo-osmolality and hyponatremia, R10.9 - Unspecified abdominal pain, R11.0 - Nausea Coding Level of Care Code Off vis,est,level 3 Diagnoses Nausea R11.0 Abdominal pain R10.9 Hyponatremia E87.1 08/26/25 1202 sov PA> Date _ Debbie SCHWARTZ Cosigner Signature: Date (if applicable) CC: ~ [facility]07-28-2025 Radiology Diagnostic study note [facility] Imaging Services [address] [place], [place] [id number] Abdomen Single View MR#: [id number] Acct: [id number] Name: LYNNETTE GONG Rep #: [id number] : 1970 M 54 From: Claudio Pagan MD PCP: UMAIR Taveras Status: REG ER Study:Abdomen Single View Date of Exam: 06/23/25 Exam# [id number] Ordering Dr: Juan Rush DO PROCEDURE: ABDOMEN SINGLE VIEW 06/23/2025 REASON FOR EXAM: CONSTIPATION TECHNIQUE: ABDOMEN SINGLE VIEW COMPARISON: Abdominal radiographs 06/17/2025. FINDINGS: Only the lower abdomen/pelvis is imaged on this exam. Visualized bowel gas pattern is nonobstructive. There appears to be stool within the rectum, possibly indicating constipation. Osseous structures appear intact and within normal limits. No unusual calcific density. RAD/Abdomen Single View IMPRESSION: Limited study. Similar fecal load within the rectum may indicate constipation.. Reading Location: [facility] CC: JUMPBASTING MACHINE OPERATOR-Juju Roa; Dr. Juan Rush DO ~ Spooler Operator Automatic: Signed [facility]07-23-2025 Radiology Diagnostic study note [facility] Imaging Services [address] [place] [address] Abdomen Single View MR#: [id number] Acct: [id number] Name: LYNNETTE GONG Rep #: [id number] : 1970 M 54 From: Niru Rush MD PCP: UMAIR Taveras Status: REG CLI Study:Abdomen Single View Date of Exam: 06/17/25 Exam# [id number] Ordering Dr: Ra jacoby Roa JUMPBASTING MACHINE OPERATOR-C EXAM: XR Abdomen, 1 View CLINICAL INDICATION: CONSTIPATION, MELENA, NAUSEA TECHNIQUE: Frontal supine view of the abdomen/pelvis. COMPARISON: No relevant prior studies available. FINDINGS: GASTROINTESTINAL TRACT: Fecal retention in the colon consistent with constipation. No dilation. BONES/JOINTS: Unremarkable. No acute fracture. RAD/Abdomen Single View IMPRESSION: Fecal retention in the colon consistent with constipation. Reading Location: [facility] CC: JUMPBASTING MACHINE OPERATOR-Juju Roa ~ Spooler Operator Automatic: Signed [facility]07-15-2025 Evaluation note* Diagnosis Onset Date Resolution Status Admit Date Encounter for screening for malignant neoplasm of lung acute June 10, 2025 12:37pm Tobacco use disorder, continuous acute June 10, 2025 12:37pm Constipation acute July 17, 2025 10:45am Generalized headaches acute Jun 10:45am Hyponatremia acute July 17, 2025 10:45am Abdominal pain acute August 11, 2025 2:27pm Constipation acute August 112024 2:27pm Excessive use of non-steroid al anti-inflammatory drugs, continuous acute August 11, 2025 2:27pm Hyponatremia acute August 112024 2:27pm Nausea acute July 2:27pm Abdominal pain acute August 26, 2025 11:18am Hyponatremia acute August 262024 11:18am Nausea acute July 11:18am Abdominal pain acute September 172024 12:23pm Abdominal pain acute September 232024 7:49am Nausea acute September 23, 2025 7:49am [facility] Work Phone: 1(704) 284-425307-15-2025 Radiology Diagnostic study note [facility] Imaging Services [address] [place] [address] Lung Screening MR#: [id number] Acct: [id number] Name: LYNNETTE GONG Rep #: [id number] : 1970 M 54 From: Rahul Gould MD PCP: Deborah Roa NP-C Status: REG CLI Study:Low Dose CT Lung Screening Date of Exam : 06/10/25 Exam# [id number] Ordering Dr: Anay Solano NP JUMPBASTING MACHINE OPERATOR-C PROCEDURE: LOW DOSE CT LUNG SCREENING 06/10/2025 REASON FOR EXAM: LUNG CANCER SCREENING Patient has smoked 1-1/2-2 packs per day for 37 years. TECHNIQUE: Coronal and Sagittal reconstruction series were provided. One or more dose reduction techniques were used (e.g., Automated exposure control, adjustment of the mA and/or kV according to patient size, use of iterative reconstruction technique). REFERENCE LINK: Get [employer] Lung-RADS RADIATION DOSE SUMMARY: CTDlvol: 3.18 mGy DLP: 104.43 mGycm COMPARISON: Prior chest radiograph dated May 03, 2025. FINDINGS: PULMONARY NODULES: (Only nodules >3mm are reported) Nodules described below are on series 1 unless otherwise specified. Pulmonary Nodules: No pulmonary nodules seen. Hardware:None Lymph Nodes:None Heart and Vasculature:The heart is nonenlarged. Coronary Artery Calcifications: Absent Lungs and Airways: Mild emphysematous changes are present. Pleura:No evidence of pleural effusion Upper Abdomen:Unremarkable Bones:Degenerative changes of the thoracic spine. CT/Low Dose CT Lung Screening IMPRESSION: No suspicious pulmonary nodule is seen. Coronary artery calcification (CAC) is is absent Lung-RADS Category: 2 BENIGN (BASED ON IMAGING FEATURES OR INDOLENT BEHAVIOR). RECOMMEND 12-MONTH SCREENING LDCT. Other Significant Findings: Reading Location: [id number] CC: UMAIR Roa; UMAIR Bull ~ Spooler Operator Automatic: Signed [facility]06-09-2025 Discharge summary [facility] Medical Records Department [address] [place] [address] Discharge Summary 05/05/25 1004 MR#: [id number] Acct: [id number] Name: LYNNETTE GONG Rep #:[id number] : 1970 54 From: Kevin Singh DO PCP: UMAIR Taveras Status:ADM IN Location: [place] [address] Providers Date of Admission: 05/03/25 Primary Care [...] UMAIR [Primary Care Provider] - 05/05/25 1006 Cosigner Signature (if applicable): CC: UMAIR Roa; Dr. Kevin Snigh DO~ Signed ADDENDUM by Dr. Kevin Singh [...] 05/05/25 at 1009 Visit Charges Inpatient E&M: 74017 Disch Hosp 05/05/25 1009 Cosigner Signature (if applicable): cc: UMAIR Roa; Dr. Kevin Singh DO ~* Signed [facility]06-09-2025 [facility] Medical Records Department [address] [place] [address] Discharge Summary 05/05/25 1004 MR#: [id number] Acct: [id number] Name: LYNNETTE GONG Rep #: [id number] : 1970 54 From: Kevin Singh DO PCP: UMAIR Taveras Status:ADM IN Location: [place] [address] Providers Date of Admission: 05/03/25 Primary Care [...] UMAIR [Primary Care Provider] - 05/05/25 1006 Cosigner [...] at 1009 Visit Charges Inpatient E M: 19042 Disch Hosp 05/05/25 1009 Cosigner Signature (if applicable): cc: UMAIR Roa; Dr. Kevin Singh DO * [facility] Progress note Author Kevin Singh [facility] Note Date/Time May 04, 2025 1:33p m [facility] Medical Records Department [address] [place] [address] Progress Note - Hospitalist 05/04/25910 MR#: [id number] Acct: [id number] Name: LYNNETTE GONG Rep #:[id number] : 1970 54 From: Kevin Singh DO PCP: UMAIR Taveras Status:ADM IN Location: [place] [address] Reason for Visit Reason for Visit: Diagnoses [...] 76.5 H, Lymph % (Auto) 15.6 L, [place] % (Auto) 6.7, Eos % (Auto) 0.1, [...] Clarity Clear, Urine pH 7.0, Ur Specific [place] 1.010, Urine Protein 15 H, Urine Glucose [...] % (Auto) 65.3, Lymph % (Auto) 22.7, [place]% (Auto) 10.3 H, Eos % (Auto) 0.2, [...] 16:00 IMPRESSION: NO ACUTE FINDINGS. Reading Location: [facility] Physical Exam Const alert and no [...] in AM. Charges/Coding Visit Charges Inpatient E&M: 66094 Subs Hosp L2 05/04/25 1333 <Electronically signed by Kevin Singh DO> Cosigner Signature (if applicable): CC: ~ Signed [facility] Work Phone: 1(395) 150-286406-08-2025 Progress note [facility] Medical Records Department [address] [place] [address] Progress Note - Hospitalist 05/04/25 0911 MR#: [id number] Acct: [id number] Name: LYNNETTE GONG Rep #:[id number] : 1970 54 From: Kevin Singh DO PCP: UMAIR Taveras Status:ADM IN Location: [place] [id number]- Reason for Visit Reason for Visit: Diagnoses [...] 76.5 H, Lymph % (Auto) 15.6 L, [place] % (Auto) 6.7, Eos % (Auto) 0.1, [...] Clarity Clear, Urine pH 7.0, Ur Specific [place] 1.010, Urine Protein 15 H, Urine Glucose [...] % (Auto) 65.3, Lymph % (Auto) 22.7, [place]% (Auto) 10.3 H, Eos % (Auto) 0.2, [...] 16:00 IMPRESSION: NO ACUTE FINDINGS. Reading Location: [id number] Physical Exam Const alert and no apparent [...] in AM. Charges/Coding Visit Charges Inpatient E&M: 15987 Subs Hosp L2 05/04/25 1333 Cosigner Signature (if applicable): CC: ~ Signed [facility]06-07-2025 History and physical note Author Meseret Minor [facility] Note Date/Time May 03, 2025 7:01p m [facility] Medical Records Department [address] [place] [address] H&P Exam - Hospitalist 05/03/25 1806 MR#: [id number] Acct: [id number] Name: LYNNETTE GONG Rep #:[id number] : 1970 54 From: Meseret Minor DO PCP: UMAIR Taveras Status:ADM IN Location: [facility] [id number] HPI - General General Date of Admission: 05/03/25 Date of Service: 05/03/25 Chief Complaint: Elevated blood pressure HPI Narrative LYNNETTE GONG, is a 54 M who presented to the emergency department [facility] on 05/03/2025 with the chief complaint [...] his most recent blood pressure at 159/89. [facility] Medical History HTN (hypertension) Morbid obesity Home Medications ?Medication ?Instructions ?Recorded ?Last Taken ?Type losartan 25 mg tablet 25 mg PO DAILY 05/03/25 Unkn own History Allergy/AdvReac Type Severity Reaction Status Date / Time No Known Allergies Allergy Verified 05/03/25 15:37 no significant family history no surgical history Social History (Updated 05/03/25 @ 18:[address] Meseret Minor DO) Smoking Status: Current every day smoker [...] 76.5 H, Lymph % (Auto) 15.6 L, Juab % (Auto) 6.7, Eos % (Auto) 0.1, [...] 16:00 IMPRESSION: NO ACUTE FINDINGS. Reading Location: [id number] Assessment & Plan Assessment/Plan (1) Acute hyponatremia: [...] and asked his PCP to call in [employer] however it is too expensive for him. - We did discuss that there are other alternatives and I recommended he discuss this with his primary care physician- DVT prophylaxis - Lovenox SQ twice daily CODE STATUS - Full code Charges/Coding Visit Charges Inpatient E&M: 01125 Init Hosp L2 05/03/25 1907 <Electronically signed by Meseret Minor DO> Cosigner Signature (if applicable): CC: UMAIR Roa; Dr. Meseret Minor, ~ Signed [facility] Work Phone: [phone]) 264-339206-07-2025 Discharge summary Author Allan Jc [facility] Note Date/Time May 03, 2025 6:22p m [facility] Medical Records Department [address] [place] [address] Emergency Department Summary 05/03/25 MR#: [id number] Acct: [id number] Name: LYNNETTE GONG Rep #:[id number] : 1970 54 From: Allan Jc DO PCP: TONO TaverasC Status:REG ER Location: ED HPI History of [...] that he no longer has a headache. [facility] Medical History (Updated 05/03/25 @ 18:22 by [...] following commands knew that he was at [facility] year is 2024 patient NIH of [...] 76.5 H Lymph % (Auto) 15.6 L Juab % (Auto) 6.7 Eos % (Auto) 0.1 [...] 16:00 IMPRESSION: NO ACUTE FINDINGS. Reading Location: [facility] Discharge Plan Triage Chief Complaint: Hypertension ED Provider: Allan Jc Dx/Rx/DC Orders Clinical Impression: Acute hyponatremia, Hyperglycemia, Hypertension Prescriptions: No Action losartan 25 mg tablet 25 mg PO DAILY Primary Care Provider: Deborah Roa Referrals: Care Physician,No Primary [Non-Staff] - Print Language: Algerian Disposition Disposition: [facility] What to do if you have Problems For any increased pain, shortness of breath, bleeding, nausea or vomiting, chestpain, or any unexpected problems, contact your Primary Care Provider. Call [facility] ([phone]) or report to the closest Emergency Room. Call 911 if necessary. 05/03/251821 <Electronically signed by Allan Jc DO> Cosigner Signature (if applicable): CC: UMAIR Roa ~ Signed [facility] Work Phone: 1(472) 930-939606-07-2025 Evaluation note* Diagnosis Onset Date Resolution Status Admit Date Acute hyponatremia acute May 032024 6:03pm Hyperglycemia acute May 03 025 6:03pm Hypertensive urgency acute May 03, 2025 6:03pm [facility] Work Phone: [phone] 882-330106-07-2025 Evaluation note* Diagnosis Onset Date Resolution Status Admit Date Acute hyponatremia resolved May 032024 6:03pm Hyperglycemia resolved May 03, 025 6:03pm Hypertensive urgency resolved May 03, 2025 6:03pm Constipation acute May 12, 2 025 1:20pm Screen for colon cancer acute J [facility] 2024 1:20pm [facility] Work Phone: [phone] Evaluation note* Diagnosis Onset Date Resolution Status Admit Date Acute hyponatremia resolved May 032024 6:03pm Hyperglycemia resolved May 03, 2 025 6:03pm Hypertensive urgency resolved May 03, 2025 6:03pm Constipation acute May 12, 2 025 1:20pm Screen for colon cancer acute J [facility] 2024 1:20pm Encounter for screening for malignant neoplasm of lung acute June 10, 2025 12:37pm Tobacco use disorder, continuous acute June 10, 2025 12:37pm [facility] Work Phone: [phone] Evaluation note* Diagnosis Onset Date Resolution Status Admit Date Acute hyponatremia resolved May 032024 6:03pm Hyperglycemia resolved May 03, 2 025 6:03pm Hypertensive urgency resolved May 03, 2025 6:03pm Constipation acute May 12, 2 025 1:20pm Screen for colon cancer acute J [facility] 2024 1:20pm Encounter for screening for malignant neoplasm of lung acute June 10, 2025 12:37pm Tobacco use disorder, continuous acute June 10, 2025 12:37pm Constipation acute July 17, 2025 10:45am Generalized headaches acute Jun 10:45am Hyponatremia acute July 17, 2025 10:45am [facility] Work Phone: 1([phone] 633-416006-07-2025 Evaluation note* Diagnosis Onset Date Resolution Status Admit Date Acute hyponatremia resolved May 032024 6:03pm Hyperglycemia resolved May 03 025 6:03pm Hypertensive urgency resolved May 03, 2025 6:03pm Constipation acute May 12 025 1:20pm Screen for colon cancer acute J [facility] 2024 1:20pm Encounter for screening for malignant neoplasm of lung acute June 10, 2025 12:37pm Tobacco use disorder, continuous acute June 10, 2025 12:37pm Constipation acute July 17, 2025 10:45am Generalized headaches acute Jun 10:45am Hyponatremia acute July 17, 2025 10:45am Abdominal pain acute August 11, 2025 2:27pm Constipation acute August 112024 2:27pm Excessive use of non-steroidal anti-inflammatory drugs, continuous acute August 11, 2025 2:27pm Hyponatremia acute August 112024 2:27pm Nausea acute July 2:27pm [facility] Work Phone: [phone] 391-113506-07-2025 Evaluation note* Diagnosis Onset Date Resolution Status Admit Date Acute hyponatremia resolved May 032024 6:03pm Hyperglycemia resolved May 03 025 6:03pm Hypertensive urgency resolved May 03, 2025 6:03pm Constipation acute May 12 025 1:20pm Screen for colon cancer acute J une 2024 1:20pm Encounter for screening for malignant neoplasm of lung acute June 10, 2025 12:37pm Tobacco use disorder, continuous acute June 10, 2025 12:37pm Constipation acute July 17, 2025 10:45am Generalized headaches acute Jun 10:45am Hyponatremia acute July 17, 2025 10:45am Abdominal pain acute August 11, 2025 2:27pm Constipation acute August 112024 2:27pm Excessive use of non-steroidal anti-inflammatory drugs, continuous acute August 11, 2025 2:27pm Hyponatremia acute August 112024 2:27pm Nausea acute July 2:27pm Abdominal pain acute August 26, 2025 11:18am Hyponatremia acute August 262024 11:18am Nausea acute July 11:18am [facility] Work Phone: [phone]) 471-355806-07-2025 History and physical note [facility] Medical Records Department [address] [place] [address] H&P Exam - Hospitalist 05/03/25 1806 MR#: [id number] Acct: [id number] Name: LYNNETTE GONG Rep #:[id number] : 1970 54 From: Meseret Minor DO PCP: UMAIR Taveras Status:ADM IN Location: [place] [id number]- HPI - General General Date of Admission: 05/03/25 Date of Service: 05/03/25 Chief Complaint: Elevated blood pressure HPI Narrative LYNNETTE GONG, is a 54 M who presented to the emergency department [facility] on 05/03/2025 with the chief complaint [...] his most recent blood pressure at 159/89. [facility] Medical History HTN (hypertension) Morbid obesity Home [...] 76.5 H, Lymph % (Auto) 15.6 L, Juab % (Auto) 6.7, Eos % (Auto) 0.1, [...] 16:00 IMPRESSION: NO ACUTE FINDINGS. Reading Location: [facility] Assessment & Plan Assessment/Plan (1) Acute [...] and asked his PCP to call in [employer] however it is too expensive for him. - We did discuss that there are other alternatives and I recommended he discuss this with his primary care physician- DVT prophylaxis - Lovenox SQ twice daily CODE STATUS - Full code Charges/Coding Visit Charges Inpatient E&M: 48746 Init Hosp L2 05/03/25 1901 Cosign Signature (if applicable): CC: JUMPBASTING MACHINE OPERATOR-C Deborah Roa; Dr. Meseret Minor DO~ Signed [facility]06-07-[address] [facility] Medical Records Department [address] [place] [address] Emergency Department Summary 05/03/25 MR#: [id number] Acct: [id number] Name: LYNNETTE GONG Rep #:[id number] : 1970 54 From: Allan Jc DO [...] that he no longer has a headache. [facility] Medical History (Updated 05/03/25 @ 18:[address] Allan Jc, ) HTN (hypertension) Morbid obesity Home Medications ?Medication [...] following commands knew that he was at [facility] year is 2024 patient NIH of [...] 76.5 H Lymph % (Auto) 15.6 L Juab % (Auto) 6.7 Eos % (Auto) 0.1 [...] 16:00 IMPRESSION: NO ACUTE FINDINGS. Reading Location: [facility] Discharge Plan Triage Chief Complaint: Hypertension ED Provider: Allan Jc Dx/Rx/DC Orders Clinical Impression: Acute hyponatremia, Hyperglycemia, Hypertension Prescriptions: No Action losartan 25 mg tablet 25 mg PO DAILY Primary Care Provider: Deborah Roa Referrals: Care Physician,No Primary [Non-Staff] - Print Language: Algerian Disposition Disposition: Acute Care Hospital [facility] What to do if you have Problems For any increased pain, shortness of breath, bleeding, nausea or vomiting, chestpain, or any unexpected problems, contact your Primary Care Provider. Call [facility] ([phone]) or report tothe closest Emergency Room. Call 911 if necessary. 05/03/25 1822 Cosigner Signature (if applicable): CC: UMAIR Roa ~ Signed [facility]06-07-2025 Radiology Diagnostic study note [facility] Imaging Services [address] [place], [place] [address] Chest PA and Lateral MR#: [id number] Acct: [id number] Name: LYNNETTE GONG Rep #: [id number] : 1970 M 54 From: Kimberly Vaughan MD PCP: Deborah Roa, JOE-C Status: REG ER Study:Chest PA and Lateral Date of Exam: 05/03/25 Exam# [id number] Ordering Dr: Dhaval Jc DO PROCEDURE: CHEST [...] Lateral IMPRESSION: NO ACUTE FINDINGS. Reading Location: [id number] CC: JUMPBASTING MACHINE OPERATOR-C Deborah Roa; Dr. Allan Jc DO ~ Spooler Operator Automatic: Signed [facility]12-21-2022 NoteClinical Note - Pharmacy v2: Education: [...] Post-Discharge Culture Follow Up Team, please contact [phone]. . Aspen Chapa PharmD PGY1 Resident Meds Electronic Signatures: Aspen Chapa (PHARM STUD) (Signed 16-Nov-2022 15:13) Authored: Education Deborah Ramirez (PharmD) (Signed 17-Nov-2022 08:30) Co-Signer: Education Last Updated: 17-Nov-2022 08:30 by Deborah Ramirez (PharmD)[facility] Author Kevin Singh [facility] Note Date/Time May 05, 2025 10:[address] [facility] Medical Records Department [address] [place] [address] Discharge Summary 05/05/25 1004 MR#: [id number] Acct: [id number] Name: LYNNETTE GONG Rep #:[id number] : 1970 54 From: Kevin Singh DO PCP: UMAIR Taveras Status:ADM IN Location: [place] [id number] Providers Date of Admission: 05/03/25 Primary Care [...] 05/05/25 at 1009 Visit Charges Inpatient E&M: 79913 Disch Hosp 05/05/25 1009<Electronically signed by Kevin Singh DO> Cosigner Signature (if applicable): cc: UMAIR Roa; Dr. Kevin Singh DO ~* Signed [facility] Work Phone: Evaluation noteNo assessment information available [facility] Work Phone: Evaluation note* Diagnosis Onset Date Resolution Status Admit Date Acute hyponatremia acute May 032024 6:03pm Hyperglycemia acute May 03, 2 025 6:03pm Hypertensive urgency acute May 03, 2025 6:03pm [facility] Work Phone: History and physical note Author Meseret Minor [facility] Note Date/Time May 03, 2025 7:01p m [facility] Medical Records Department [address] [place] [address] H&P Exam - Hospitalist 05/03/25 1806 MR#: [id number] Acct: [id number] Name: LYNNETTE GONG Rep #:[id number] : 1970 54 From: Meseret Minor DO PCP: UMAIR Taveras Status:ADM IN Location: [place] [id number]- 1 HPI - General General Date of Admission: 05/03/25 Date of Service: 05/03/25 Chief Complaint: Elevated blood pressure HPI Narrative LYNNETTE GONG, is a 54 M who presented to the emergency department [facility] on 05/03/2025 with the chief complaint [...] his most recent blood pressure at 159/89. [facility] Medical History HTN (hypertension) Morbid obesity Home [...] 76.5 H, Lymph % (Auto) 15.6 L, Juab % (Auto) 6.7, Eos % (Auto) 0.1, [...] 16:00 IMPRESSION: NO ACUTE FINDINGS. Reading Location: [facility] Assessment & Plan Assessment/Plan (1) Acute [...] and asked his PCP to call in [employer] however it is too expensive for him. - We did discuss that there are other alternatives and I recommended he discuss this with his primary care physician- DVT prophylaxis - Lovenox SQ twice daily CODE STATUS - Full code Charges/Coding Visit Charges Inpatient E&M: 03066 Init Hosp L2 05/03/25 1901 <Electronically signed by Meseret Minor DO> Cosigner Signature (if applicable): CC: UMAIR Roa; Dr. Meseret Minor DO~ Signed [facility] Work Phone: Hospital Discharge instructions Additional Instructions Please return if you lose consciousness, if you develop chest pain, if you have shortness of breath we have difficulty with exertion. Please follow-up with the family practice physician Dr. Dias. Please get an outpatient stress test for further evaluation of possible heart issues.[facility] Work Phone: Hospital Discharge instructionsAdditional Instructions re x-ray consistent with constipation. Status post enema in the ED. take your MiraLAX 1 full cup of water with 1 cup every hour until you have a bowel movement. Continue your stool softeners. [facility] Work Phone: Progress note Author Debbie Garcia [facility] Note Date/Time August 26, 2025 11:57am [facility] [address] [place] [address] OFFICE VISIT Date of Service: 08/26/25 MR#: [id number] Acct: [id number] Name: LYNNETTE GONG Rep #: [id number] : 1970 Provider: LANA Adan Age/Sex: 55/M Location: [facility] [place] Status: Signed Intake Vital Signs 08/11/25 14:40 08/14/25 09:48 Height 5 ft 7 in 5 ft 7 in Weight: 304 lb 4 oz BMI 47.6 BP 144/87 H Respiration 18 Pulse 82 Temp 98.8 F Pulse Oximetry (%) 93 Oxygen Delivery Method room air Intake Visit Reasons: SCHEDULE FU PER ANANYA Chief Complaint: Nausea and vomiting Aquaculturist Required: No Accompanied by: Self Is patient in pain?: Yes Allergies No Known Allergies Allergy (Verified 08/26/25 11:30) Medications ?Medication ?Instructions ?Recorded ?Confirmed ?Type losartan 100 mg tablet 100 mg PO DAILY #30 tabs 08/2108/26/25 Rx amlodipine 10 mg tablet 10 mg PO DAILY 06/23/2507/30 History ondansetron 4 mg disintegrating 4 mg PO Q8H PRN PRN Na usea #10 tabs 06/23/25 08/26/25 Rx tablet bisacodyl 5 mg tablet,delayed 5 mg PO QDAY PRN constip ation 07/16/25 08/26/25 History release (Dulcolax (bisacodyl)) docusate sodium 100 mg capsule 100 mg PO QDAY 07/16/25 08/26/25 History (Stool Softener) linaclotide 290 mcg capsule 290 mcg PO QAM #90 caps 08/26/25 Rx (Linzess) metoclopramide HCl 5 mg tablet 5 mg PO QAC #30 tabs 08/26/25 Rx (Reglan) pantoprazole 40 mg tablet,delayed 40 mg PO QDAY #90 ta bs 08/11/25 08/26/25 Rx release [facility] Medical History History of CVA (cerebrovascular accident) Back pain Arthritis Essential (primary) hypertension Osteoarthritis of knees, bilateral Tobacco use disorder, continuous Encounter for screening for malignant neoplasm of lung Constipation Chronic pain Smoker Migraines TIA (transient ischemic attack) HTN (hypertension) Morbid obesity Surgical History History of right knee joint replacement Social History Smoking Status: Current every day smoker Tobacco: How many years used: 30 alcohol intake: never substance use type: other details: magic mushrooms for pain HPI HPI Chief Complaint: Nausea and vomiting Details: LYNNETTE GONG, is a 55 M who presents to the office today for follow-up. OV 08/11/2025 54y/o male presents with intractable nausea and dry heaves in the context of chronic moderate hyponatremia (serum sodium 118?128 mmol/L, most recent 128), high urine osmolality (480 mOsm/kg), urine sodium (48 mmol/L), severe constipation, headaches, normal TSH, indeterminate morning cortisol, and antihypertensive therapy (amlodipine, losartan). 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 He is scheduled for ACTH Stim Testing to be completed this , 08/14/2025. We have discussed use of ondansetron as excessive and likely contributing to constipation. I haveprescribed metoclopramide 5 mg 3 times daily and we have reviewed potential sideeffects in detail. His frequent use of Excedrin is likely exacerbating his UGI symptoms and I have recommended he decrease use. He will start pantoprazole 40 mg once daily. In terms of constipation he did get good results previously withnotable improvement in abdominal pain and nausea with Linzess 290 mcg. I have provided him samples and he will resume use of Linzess. He will follow-up with me in the office in 10 days. Patient Instructions: 1. Reduce use of Ondansetron this is likely contributing to worsening of constipation 2. Metoclopramide for nausea. Metoclopramide can cause tardive dyskinesia, a serious movement disorder that is often irreversible. There is no known treatment for tardive dyskinesia. The risk of developing tardive dyskinesia increases with duration of treatment and total cumulative dose. It is recommended to discontinue metoclopramide in patients who develop signs or symptoms of tardive dyskinesia. In some patients, symptoms lessen or resolve after metoclopramide is stopped. Avoid treatment with metoclopramide for longer than 12 weeks because of the increased risk of developing tardive dyskinesia with longer-term use. We have discussed 2 weeks wash out after 12 weeks of therapy and then resuming. We have discussed risk of recurrent symptoms (N/V) with holding therapy. 3. Resume Linzess 290mcg once daily, discussed risk of diarrhea and worsening hyponatremia. Samples provided and RX sent to pharmacy. If he is unable to afford Linzess (no RX insurance benefit) will provide additional samples and assist with PAP. 4. Proceed with ACTH Stim Test as scheduled on 08/14/2025 5. Reduce use of Excerdin 6. Start pantoprazole 40mg once daily 7. Follow-up in office on 08/21/2025 at 1130am. 8. Plan to proceed with EGD and Colonoscopy once safe. 9. Smoking cessation recommended - https://www.cdc.gov/tobacco/about/how-to-quit.html 10. Taper off Kratom Taking 1/8 cup of kratom powder daily for pain management poses significant risks, including gastrointestinal side effects (nausea, constipation, vomiting),neuropsychiatric effects (agitation, confusion, drowsiness), and the developmentof tolerance, dependence, and withdrawal symptoms. At this dose?approximately 15?20 grams, which is considered high?adverse effects are more likely and more severe, including potential for seizures, hepatotoxicity, and, in rare cases, , particularly with co-ingestion of other substances or contaminated products. The side effects of daily use of Kratom powder for the management of pain are primarily dose-dependent and include both mild and serious adverse effects. The most commonly reported are gastrointestinal symptoms such as nausea, constipation, and vomiting, which tend to occur at higher doses (typically >5 g/dose or >22 doses/week).[1-2] Other frequent side effects include agitation, tachycardia, drowsiness, and confusion. Chronic daily use is associated with dependence and withdrawal symptoms, which may resemble but are generally milder than those seen with classic opioids. Withdrawal can include irritability, anxiety, insomnia, muscle aches, and mood disturbances. Tolerance to analgesic effects may develop with ongoing use. Serious but less common adverse effects include seizures, hallucinations, psychosis, liver toxicity, and, rarely, respiratory depression, coma, or ?especially in cases of polysubstance use or contaminated products. There is also evidence of organ toxicity, particularly affecting the liver and kidneys, although the risk is difficult to quantify due to variability in product composition and lack of standardized dosing. Additional reported effects include dry mouth, polyuria, arrhythmia, and impaired memory function. The risk of adverse effects increases with higher doses and more frequent use, and contamination with heavy metals or biological toxins is a recognized concern. In summary, daily kratom use for painmanagement is associated with a spectrum of side effects ranging from mild gastrointestinal symptoms to serious neurological and organ toxicities, with dependence and withdrawal being notable risks. Hyponatremia is not a recognized risk in medical literature. ACTH Stim testing shows normal cortisol response, indicating adrenal insufficiency is not the cause of low sodium. Please make patient aware and forward results to PCP. I strongly recommend he taper off use of Kratom powder as this is likely a significant contributing factor for his symptoms. Although kratom is not directly implicated in causing SIADH or hyponatremia, kratom-induced severe nausea could indirectly precipitate hyponatremia secondary to SIADH. This is because severe nausea is a well-established nonosmotic stimulus for ADH secretion. Taking kratom --> causes severe nausea --> which causes inappropriate release ofADH (SIADH) ---> causing hyponatremia (low sodium) Further research shows a case study showing a patient with daily kratom ingestion with hyponatremia-induced AMS. Below is a link to this NIH article https://pmc.ncbi.nlm.nih.gov/articles/MKP1569529/ OV 08/26/25 - Continues to have daily nausea and dry heaving but no vomiting -Taking Zofran 10 times per day -Continues with kratom -Taking Excedrin intermittently ROS Const Constitutional: No fatigue, fever(s) or weight change ENT ENT: No difficulty swallowing Gastro GI: Positive for abdominal pain, diarrhea and nausea/dyspepsia; No belching, bloating, change in bowel habits, change in stool character, coffeeground emesis, constipation, cramping, heartburn, difficulty swallowing, feelingfull early, excessive flatus, incontinent of stools, Vomiting blood/hematemesis,Blood in stool, loose stools, Black,tarry stools, pain with swallowing, vomitingor other Musc Musculoskeletal: No joint pain Skin Skin: No yellowing of the eye or itchy eyes Psych Psychiatric: No anxiety and No depression Endo Endocrine: No fatigue or weight change Aller/Imm Allergy/Immunologic: No itchy eyes Ankit/Lymp Hematologic/Lymphatic: No easy bleeding or easy bruising Exam Const General: cooperative Nutritional Appearance: overweight Orientation: alert HENMT Head: normal to inspection Eyes General: appearance normal, both eyes and all related structures Neck Neck: normal visual inspection Chest Chest palpation & inspection: normal inspection of the chest Resp Effort & Inspection: normal respiratory effort Cardio Rate: regular rate Rhythm: regular rhythm GI Inspection: normal to inspection and obesity Auscultation: normal bowel sounds Palpation: firm, no guarding and nontender Assessment and Plan Assessment and Plan (1) Nausea: Status: Acute Plan: Lynnette is a 55-year-old male patient here today for follow-up regarding his ongoing nausea, dry heaving and hyponatremia. Patient is established patient Juliette Diop NP however she is out of the office today and patient was seenby me for continued symptoms. Patient had ACTH stimulation test was with appropriate cortisol response which indicates there is not an adrenal problem ascause of his hyponatremia. Patient continues to use kratom daily and I did advise cessation and explained the possible correlation with his hyponatremia. I offered referral to psychiatry for help with tapering off of kratom however patient declines. Patient admits that is the only thing that controls his pain and is unwilling to discontinue at this time. He will be scheduled for EGD to evaluate his upper GI tract for etiology of his nausea. Will repeat CBC and CMPtoday. I provided more samples of Linzess to 90 mcg daily. I advise decreasinghis usage of Zofran and instead using Reglan. He is unsure if he is using the Reglan or not. Patient will follow-up with Elizabet in the office in 3 weeks. - EGD - Discontinue kratom - Decrease Zofran usage - Try Reglan - Repeat CBC and CMP (2) Abdominal pain: Status: Acute (3) Hyponatremia: Status: Acute Orders: Orders CBC W/Diff, Automated Today R11.0 - Nausea Comprehensive Metabolic Profil Today E87.1 - Hypo-osmolality and hyponatremia, R10.9 - Unspecified abdominal pain, R11.0 - Nausea Coding Level of Care Code Off vis,est,level 3 Diagnoses Nausea R11.0 Abdominal pain R10.9 Hyponatremia E87.1 08/26/25 1202 <Electronically signed by Debbie SCHWARTZ> Date _ Debbie SCHWARTZ Cosigner Signature: Date (if applicable) CC: ~ [facility] Work Phone: Reason for referral (narrative)No reason [facility]: Chief Complaint and Reason [...] pm screening June 10, 2025 12:3 7pm Chief Complaint Admit Date HYPONATREMIA/HTN URGENCY May 03, 2025 6:03pm HYPONATREMIA/HTN URGENCY May 03, 2025 6:06pm HYPONATREMIA/HTN URGENCY May 04, 2025 9:11am HYPONATREMIA/HTN URGENCY May 05, 2025 10:04am COLONOSCOPY May 12, 2025 1:20 pm screening June 10, 2025 12:3 7pm SCREENING June 10, 2025 1:26 pm Reason for Visit Admit Date Acute hyponatremia May 03, 2025 6:03p m Hyperglycemia May 03, 2025 6:03p m Hypertensive urgency May 03, 2025 6:03 pm Constipation May 12, 2025 1:20 pm Screen for colon cancer May 12, 2025 1:20pm Encounter for screening for malignant ne oplasm of lung June 10, 2025 12:37pm Tobacco use disorder, continuous June 102024 12:37pm Chief Complaint Admit Date HYPONATREMIA/HTN URGENCY May 03, 2025 6:03pm HYPONATREMIA/HTN URGENCY May 03, 2025 6:06pm HYPONATREMIA/HTN URGENCY May 04, 2025 9:11am HYPONATREMIA/HTN URGENCY May 05, 2025 10:04am COLONOSCOPY May 12, 2025 1:20 pm screening June 10, 2025 12:3 7pm SCREENING June 10, 2025 1:26 pm LABS AND XRAY June 17, 2025 11:1 1am Chief Complaint Admit Date HYPONATREMIA/HTN URGENCY May 03, 2025 6:03pm HYPONATREMIA/HTN URGENCY May 03, 2025 6:06pm HYPONATREMIA/HTN URGENCY May 04, 2025 9:11am HYPONATREMIA/HTN URGENCY May 05, 2025 10:04am COLONOSCOPY May 12, 2025 1:20 pm screening June 10, 2025 12:3 7pm SCREENING June 10, 2025 1:26 pm LABS AND XRAY June 17, 2025 11:1 1am constipatin June 23, 2025 3:11 pm Chief Complaint Admit Date HYPONATREMIA/HTN URGENCY May 03, 2025 6:03pm HYPONATREMIA/HTN URGENCY May 03, 2025 6:06pm HYPONATREMIA/HTN URGENCY May 04, 2025 9:11am HYPONATREMIA/HTN URGENCY May 05, 2025 10:04am COLONOSCOPY May 12, 2025 1:20 pm screening June 10, 2025 12:3 7pm SCREENING June 10, 2025 1:26 pm LABS AND XRAY June 17, 2025 11:1 1am constipatin June 23, 2025 3:11 pm CONSTIPATION NAUSEA VOMITINT ABDOMINAL P AIN July 17, 2025 10:45am E-ORDER July 17, 2025 11 :54am Reason for Visit Admit Date Acute hyponatremia May 03, 2025 6:03p m Hyperglycemia May 03, 2025 6:03p m Hypertensive urgency May 03, 2025 6:03 pm Constipation May 12, 2025 1:20 pm Screen for colon cancer May 12, 2025 1:20pm Encounter for screening for malignant ne oplasm of lung June 10, 2025 12:37pm Tobacco use disorder, continuous June 102024 12:37pm Constipation July 17, 2025 10 :45am Generalized headaches July 17, 2025 10:45am Hyponatremia July 17, 2025 10 :45am Chief Complaint Admit Date HYPONATREMIA/HTN URGENCY May 03, 2025 6:03pm HYPONATREMIA/HTN URGENCY May 03, 2025 6:06pm HYPONATREMIA/HTN URGENCY May 04, 2025 9:11am HYPONATREMIA/HTN URGENCY May 05, 2025 10:04am COLONOSCOPY May 12, 2025 1:20 pm screening June 10, 2025 12:3 7pm SCREENING June 10, 2025 1:26 pm LABS AND XRAY June 17, 2025 11:1 1am constipatin June 23, 2025 3:11 pm CONSTIPATION NAUSEA VOMITINT ABDOMINAL P AIN July 17, 2025 10:45am E-ORDER July 17, 2025 11 :54am 1 M FU August 11, 2025 2:27pm Chief Complaint Admit Date HYPONATREMIA/HTN URGENCY May 03, 2025 6:03pm HYPONATREMIA/HTN URGENCY May 03, 2025 6:06pm HYPONATREMIA/HTN URGENCY May 04, 2025 9:11am HYPONATREMIA/HTN URGENCY May 05, 2025 10:04am COLONOSCOPY May 12, 2025 1:20 pm screening June 10, 2025 12:3 7pm SCREENING June 10, 2025 1:26 pm LABS AND XRAY June 17, 2025 11:1 1am constipatin June 23, 2025 3:11 pm CONSTIPATION NAUSEA VOMITINT ABDOMINAL P AIN July 17, 2025 10:45am E-ORDER July 17, 2025 11 :54am 1 M FU August 11, 2025 2:27pm CORTISOL STIM TEST August 14, 2025 9:12am Reason for Visit Admit Date Acute hyponatremia May 03, 2025 6:03p m Hyperglycemia May 03, 2025 6:03p m Hypertensive urgency May 03, 2025 6:03 pm Constipation May 12, 2025 1:20 pm Screen for colon cancer May 12, 2025 1:20pm Encounter for screening for malignant ne oplasm of lung June 10, 2025 12:37pm Tobacco use disorder, continuous June 102024 12:37pm Constipation July 17, 2025 10 :45am Generalized headaches July 17, 2025 10:45am Hyponatremia July 17, 2025 10 :45am Abdominal pain August 11, 2025 2:27pm Constipation August 11, 2025 2:27pm Excessive use of non-steroid al anti-inflammatory drugs, continuous August 11, 2025 2:27pm Hyponatremia August 11, 2025 2:27pm Nausea August 11, 2025 2:27pm Chief Complaint Admit Date HYPONATREMIA/HTN URGENCY May 03, 2025 6:03pm HYPONATREMIA/HTN URGENCY May 03, 2025 6:06pm HYPONATREMIA/HTN URGENCY May 04, 2025 9:11am HYPONATREMIA/HTN URGENCY May 05, 2025 10:04am COLONOSCOPY May 12, 2025 1:20 pm screening June 10, 2025 12:3 7pm SCREENING June 10, 2025 1:26 pm LABS AND XRAY June 17, 2025 11:1 1am constipatin June 23, 2025 3:11 pm CONSTIPATION NAUSEA VOMITINT ABDOMINAL P AIN July 17, 2025 10:45am E-ORDER July 17, 2025 11 :54am 1 M FU August 11, 2025 2:27pm CORTISOL STIM TEST August 14, 2025 9:12am SCHEDULE FU PER ANANYA August 26 11:18am Reason for Visit Admit Date Acute hyponatremia May 03, 2025 6:03p m Hyperglycemia May 03, 2025 6:03p m Hypertensive urgency May 03, 2025 6:03 pm Constipation May 12, 2025 1:20 pm Screen for colon cancer May 12, 2025 1:20pm Encounter for screening for malignant ne oplasm of lung June 10, 2025 12:37pm Tobacco use disorder, continuous June 102024 12:37pm Constipation July 17, 2025 10 :45am Generalized headaches July 17, 2025 10:45am Hyponatremia July 17, 2025 10 :45am Abdominal pain August 11, 2025 2:27pm Constipation August 11, 2025 2:27pm Excessive use of non-steroid al anti-inflammatory drugs, continuous August 11, 2025 2:27pm Hyponatremia August 11, 2025 2:27pm Nausea August 11, 2025 2:27pm Abdominal pain August 26, 2025 11:18am Hyponatremia August 26, 2025 11:18am Nausea August 26, 2025 11:18am Chief Complaint Admit Date screening June 10, 2025 12:3 7pm SCREENING June 10, 2025 1:26 pm LABS AND XRAY June 17, 2025 11:1 1am constipatin June 23, 2025 3:11 pm CONSTIPATION NAUSEA VOMITINT ABDOMINAL P AIN July 17, 2025 10:45am E-ORDER July 17, 2025 11 :54am 1 M FU August 11, 2025 2:27pm CORTISOL STIM TEST August 14, 2025 9:12am SCHEDULE FU PER ANANYA August 26 11:18am 3 wk fu September 23, 2025 7 :49am INT LABS September 23, 2025 8 :10am Reason for Visit Admit Date Encounter for screening for malignant ne oplasm of lung June 10, 2025 12:37pm Tobacco use disorder, continuous June 102024 12:37pm Constipation July 17, 2025 10 :45am Generalized headaches July 17, 2025 10:45am Hyponatremia July 17, 2025 10 :45am Abdominal pain August 11, 2025 2:27pm Constipation August 11, 2025 2:27pm Excessive use of non-steroid al anti-inflammatory drugs, continuous August 11, 2025 2:27pm Hyponatremia August 11, 2025 2:27pm Nausea August 11, 2025 2:27pm Abdominal pain August 26, 2025 11:18am Hyponatremia August 26, 2025 11:18am Nausea August 26, 2025 11:18am Abdominal pain September 17, 2025 1 2:23pm Abdominal pain September 23, 2025 7 :49am Nausea September 23, 2025 7 :49am Advance Directives Advance Directive Response Recorded Date/ Time Living Will No September 20 2:16pm Power of [employer] Iam Consultant No September 20, 2022 2:16pm Advance Directive Response Recorded Date/ Time Do you have a Healthcare Power of [employer] Iam Consultant? No May 03, 2025 3:36pm Advance Directive Response Recorded Date/ Time Do you have a Healthcare Power of [employer] Iam Consultant? No May 03, 2025 7:20pm Advance Directive Response Recorded Date/ Time Do you have a Healthcare Power of [employer] Iam Consultant? No May 03, 2025 7:20pm Do you have a Healthcare Power of [employer] Iam Consultant? No June 23, 2025 5:36pm Advance Directive Response Recorded Date/ Time Do you have a Healthcare Power of [employer] Iam Consultant? No June 23, 2025 4:36pm Do you have a Healthcare Power of [employer] Iam Consultant? No September 15, 2025 12:45pm Summary Purpose Family History No Family History [...] section and content) DATE CREATED AUTHOR 11/18/2022 [facility] DATE CREATED AUTHOR AUTHOR'S ORGANIZ ATION 10/04/2025 [facility] Care Teams (unrecognized sec tion and [...] Active Start: May 05, 2025 Deborah Roa , JUMPBASTING MACHINE OPERATOR-C Primary Care Provider Active Start: May 05, 2025 Dr. Meseret Minor , Admit Provider Active Start : May 05, 2025 Dr. Meseret Minor , Other Provider Active Start : May 05, 2025 Dr. Kevin Singh DO Attending Provider Active Start: May 05, 2025 Dr. Kevin Singh , Other Provider Active Star t: May 05, 2025 Team Status: Active Member Role Status Dates No Primary Care Physician Family Provider Active No Primary Care Physician Primary Care Provider Active Team Status: Inactive Member Role Status Dates No Primary Care Physician Primary Care Provider Active Dr. Henrik Garza , Emergency Provider Active Team Status: Active Member Role Status Dates Dr. Allan Jc DO Emergency Provider Active Start: May 03, 2025 Deborah Roa , JUMPBASTING MACHINE OPERATOR-C Primary Care Provider Active Start: May 03, 2025 Dr. Meseret Minor , Admit Provider Active Start : May 03, 2025 Dr. Meseret Minor DO Attending Provider Active S tart: May 03, 2025 Team Status: Inactive Member Role Status Dates No Primary Care Physician Referring Provider Active Start: May 12, 2025 End: May 12, 2025 Dr. Betty Steel MD Attending Provider Active Start: May 12, 2025 End: May 12, 2025 Deborah Crispin , JUMPBASTING MACHINE OPERATOR-C Primary Care Provider Active Start: May 12, 2025 End: May 12, 2025 Team Status: Active Member Role/Relationship Status Dates Deborahtony Roa , JUMPBASTING MACHINE OPERATOR-C Primary Care Provider Active Team Status: Inactive Member Role/Relationship Status Dates Dr. Allan Jc DO Emergency Provider Active Start: May 03, 2025 End: May 05, 2025 Deborahtony Roa , JUMPBASTING MACHINE OPERATOR-C Primary Care Provider Active Start: May 03, [...] Active Start: May 03, 2025 Deborah Roa JUMPBASTING MACHINE OPERATOR-C Primary Care Provider Active Start: May 03, 2025 Dr. Meseret Minor DO Admit Provider Active Start : May 03, 2025 Dr. Meseret Minor DO Attending Provider Active S tart: May 03, 2025 Dr. Meseret Minor , Other Provider Active Start : May 03, 2025 Team Status: Active Member Role/Relationship Status Dates Dr. Allan Jc DO Emergency Provider Active Start: May 04, 2025 Deborah Roa JUMPBASTING MACHINE OPERATOR-C Primary Care Provider Active Start: May 04, 2025 Dr. Meseret Minor , Admit Provider Active Start : May 04, 2025 Dr. Meseret Minor DO Other Provider Active Start : May 04, 2025 Dr. Kevin Singh DO Attending Provider Active Start: May 04, 2025 Dr. Kevin Singh DO Other Provider Active Star t: May 04, 2025 Team Status: Active Member Role/Relationship Status Dates Dr. Allan Jc DO Emergency Provider Active Start: May 05, 2025 Deborah Roa JUMPBASTING MACHINE OPERATOR-C Primary Care Provider Active Start: May 05, [...] 2025 End: May 12, 2025 Deborah Roa JUMPBASTING MACHINE OPERATOR-C Primary Care Provider Active Start: May 12, 2025 End: May 12, 2025 Team Status: Inactive Member Role/Relationship Status Dates Deborah Roa JUMPBASTING MACHINE OPERATOR-C Primary Care Provider Active Start: May 20, 2025 End: May 20, 2025 Deborah Roa , JUMPBASTING MACHINE OPERATOR-C Attending Provider Active St art: May 20, 2025 End: May 20, 2025 Team Status: Inactive Member Role/Relationship Status Dates Deborah Crispin , JUMPBASTING MACHINE OPERATOR-C Primary Care Provider Active Start: May 29, 2025 End: May 29, 2025 Deborah Crispin , JUMPBASTING MACHINE OPERATOR-C Attending Provider Active St art: May 29, 2025 End: May 29, 2025 Team Status: Inactive Member Role/Relationship Status Dates Deborah Crispin , JUMPBASTING MACHINE OPERATOR-C Primary Care Provider Active Start: June 10, 2025 End: June 10, 2025 Deborah Stephensongar , JUMPBASTING MACHINE OPERATOR-C Referring Provider Active St art: June 10, 2025 End: June 10, 2025 Anay Jorgito JUMPBASTING MACHINE OPERATOR, JUMPBASTING MACHINE OPERATOR-C Attending Provider Active Start: June 10, 2025 End: June 10, 2025 Team Status: Inactive Member Role/Relationship Status Dates Deborah Crispin , JUMPBASTING MACHINE OPERATOR-C Primary Care Provider Active Start: June 10, 2025 End: June 10, 2025 Anay Jorgito JUMPBASTING MACHINE OPERATOR, JUMPBASTING MACHINE OPERATOR-C Attending Provider Active Start: June 10, 2025 End: June 10, 2025 Anay Jorgito JUMPBASTING MACHINE OPERATOR, JUMPBASTING MACHINE OPERATOR-C Referring Provider Active Start: June 10, 2025 End: June 10, 2025 Team Status: Inactive Member Role/Relationship Status Dates Deborah Crispin , JUMPBASTING MACHINE OPERATOR-C Primary Care Provider Active Start: June 17, 2025 End: June 17, 2025 Deborah Crispin , JUMPBASTING MACHINE OPERATOR-C Attending Provider Active St art: June 17, 2025 End: June 17, 2025 Deborah Roa , JUMPBASTING MACHINE OPERATOR-C Referring Provider Active St art: June 17, 2025 End: June 17, 2025 Team Status: Inactive Member Role/Relationship Status Dates Deborah Crispin , JUMPBASTING MACHINE OPERATOR-C Primary Care Provider Active Start: June 23, 2025 End: June 23, 2025 Dr. Juan Rush DO Emergency Provider Active Start : June 23, 2025 End: June 23, 2025 Team Status: Inactive Member Role/Relationship Status Dates Deborah Crispin , JUMPBASTING MACHINE OPERATOR-C Primary Care Provider Active Start: June 23, 2025 End: June 23, 2025 Dr. Juan Rush DO Attending Provider Active Start : June 23, 2025 End: June 23, 2025 Dr. Juan Ruhs , DO Emergency Provider Active Start : June 23, 2025 End: June 23, 2025 Team Status: Inactive Member Role/Relationship Status Dates Deborahtony Roa , JUMPBASTING MACHINE OPERATOR-C Primary Care Provider Active Start: July 17, 2025 End: July 17, 2025 Deborah Roa , JUMPBASTING MACHINE OPERATOR-C Referring Provider Active St art: July 17, 2025 End: July 17, 2025 Elizabet Diop , JUMPBASTING MACHINE OPERATOR-C Attending Provider Active Start: July 17, 2025 End: July 17, 2025 Team Status: Active Member Role/Relationship Status Dates Deborah Roa , JUMPBASTING MACHINE OPERATOR-C Primary Care Provider Active Start: July 17, 2025 Elizabet Diop , JUMPBASTING MACHINE OPERATOR-C Attending Provider Active Start: July 17, 2025 Elizabet Diop , JUMPBASTING MACHINE OPERATOR-C Referring Provider Active Start: July 17, 2025 Team Status: Inactive Member Role/Relationship Status Dates Deborahtony Roa , JUMPBASTING MACHINE OPERATOR-C Primary Care Provider Active Start: June 10, 2025 End: June 10, 2025 Anay Bull JUMPBASTING MACHINE OPERATOR, JUMPBASTING MACHINE OPERATOR-C Attending Provider Active Start: June 10, 2025 End: June 10, 2025 Anay Bull JUMPBASTING MACHINE OPERATOR, JUMPBASTING MACHINE OPERATOR-C Referring Provider Active Start: June 10, 2025 End: June 10, 2025 Team Status: Inactive Member Role/Relationship Status Dates Deborah Roa , JUMPBASTING MACHINE OPERATOR-C Primary Care Provider Active Start: July 17, 2025 End: July 17, 2025 Elizabet Diop , JUMPBASTING MACHINE OPERATOR-C Attending Provider Active Start: July 17, 2025 End: July 17, 2025 Elizabet Diop , JUMPBASTING MACHINE OPERATOR-C Referring Provider Active Start: July 17, 2025 End: July 17, 2025 Team Status: Inactive Member Role/Relationship Status Dates Deborahtony Roa , JUMPBASTING MACHINE OPERATOR-C Primary Care Provider Active Start: August 04, 2025 End: August 04, 2025 Deborah Roa , JUMPBASTING MACHINE OPERATOR-C Attending Provider Active St art: August 04, 2025 End: August 04, 2025 Team Status: Inactive Member Role/Relationship Status Dates Deborahtony Roa , JUMPBASTING MACHINE OPERATOR-C Primary Care Provider Active Start: August 11, 2025 End: August 11, 2025 Deborah Roa , JUMPBASTING MACHINE OPERATOR-C Referring Provider Active St art: August 11, 2025 End: August 11, 2025 TONO PiñaC Attending Provider Active Start: August 11, 2025 End: August 11, 2025 Team Status: Active Member Role/Relationship Status Dates Deborah Roa NP-C Primary care physician Active Team Status: Inactive Member Role/Relationship Status Dates Dr. Allan Jc DO Emergency Department Physician A ctive Start: May 03, 2025 End: May 05, 2025 Deborah Roa JUMPBASTING MACHINE OPERATOR-C Primary care physician Active Start: May 03, 2025 End: May 05, 2025 Dr. Meseret Minor DO Admitting physician Active Start: May 03, 2025 End: May 05, 2025 Dr. Meseret Minor DO Nurse Practitioner Active S tart: May 03, 2025 End: May 05, 2025 Dr. Kevin Singh DO Attending physician Active Start: May 03, 2025 End: May 05, 2025 Team Status: Active Member Role/Relationship Status Dates Dr. Allan Jc DO Emergency Department Physician A ctive Start: May 03, 2025 Deborah Roa JUMPBASTING MACHINE OPERATOR-C Primary care physician Active Start: May 03, 2025 Dr. Meseret Minor DO Admitting physician Active Start: May 03, 2025 Dr. Meseret Minor DO Attending physician Active Start: May 03, 2025 Dr. Meseret Minor DO Nurse Practitioner Active S tart: May 03, 2025 Team Status: Active Member Role/Relationship Status Dates Dr. Allan Jc DO Emergency Department Physician A ctive Start: May 04, 2025 Deborah Roa NP-C Primary care physician Active Start: May 04, 2025 Dr. Meseret Minor DO Admitting physician Active Start: May 04, 2025 Dr. Meseret Minor DO Nurse Practitioner Active S tart: May 04, 2025 Dr. Kevin Singh DO Attending physician Active Start: May 04, 2025 Dr. Kevin Singh DO Nurse Practitioner Active Start: May 04, 2025 Team Status: Active Member Role/Relationship Status Dates Dr. Allan Jc DO Emergency Department Physician A ctive Start: May 05, 2025 Deborah Roa JUMPBASTING MACHINE OPERATOR-C Primary care physician Active Start: May 05, 2025 Dr. Meseret Minor DO Admitting physician Active Start: May 05, 2025 Dr. Meseret Minor , DO Nurse Practitioner Active S tart: May 05, 2025 Dr. Kevin Singh , Attending physician Active Start: May 05, 2025 Dr. Kevin Singh , Nurse Practitioner Active Start: May 05, 2025 Team Status: Inactive Member Role/Relationship Status Dates No Primary Care Physician Referring Provider Active Start: May 12, 2025 End: May 12, 2025 Dr. Betty Steel MD Attending physician Active Start: May 12, 2025 End: May 12, 2025 Deborahtony Roa , JUMPBASTING MACHINE OPERATOR-C Primary care physician Active Start: May 12, 2025 End: May 12, 2025 Team Status: Inactive Member Role/Relationship Status Dates Deborahtony Roa , JUMPBASTING MACHINE OPERATOR-C Primary care physician Active Start: May 20, 2025 End: May 20, 2025 Deborahtony Roa , JUMPBASTING MACHINE OPERATOR-C Attending physician Active S tart: May 20, 2025 End: May 20, 2025 Team Status: Inactive Member Role/Relationship Status Dates Deborah Crispin , JUMPBASTING MACHINE OPERATOR-C Primary care physician Active Start: May 29, 2025 End: May 29, 2025 Deborahtony Roa , JUMPBASTING MACHINE OPERATOR-C Attending physician Active S tart: May 29, 2025 End: May 29, 2025 Team Status: Inactive Member Role/Relationship Status Dates Deborahtony Roa , JUMPBASTING MACHINE OPERATOR-C Primary care physician Active Start: June 10, 2025 End: June 10, 2025 Anay Jorgito JUMPBASTING MACHINE OPERATOR, JUMPBASTING MACHINE OPERATOR-C Attending physician Active Start: June 10, 2025 End: June 10, 2025 Anay Jorgito JUMPBASTING MACHINE OPERATOR, JUMPBASTING MACHINE OPERATOR-C Referring Provider Active Start: June 10, 2025 End: June 10, 2025 Team Status: Inactive Member Role/Relationship Status Dates Deborahtony Roa , JUMPBASTING MACHINE OPERATOR-C Primary care physician Active Start: June 10, 2025 End: June 10, 2025 Anay Jorgito JUMPBASTING MACHINE OPERATOR, JUMPBASTING MACHINE OPERATOR-C Attending physician Active Start: June 10, 2025 End: June 10, 2025 Anay Jorgito JUMPBASTING MACHINE OPERATOR, JUMPBASTING MACHINE OPERATOR-C Referring Provider Active Start: June 10, 2025 End: June 10, 2025 Team Status: Inactive Member Role/Relationship Status Dates Deborah Roa , JUMPBASTING MACHINE OPERATOR-C Primary care physician Active Start: June 17, 2025 End: June 17, 2025 Deborah Roa , JUMPBASTING MACHINE OPERATOR-C Attending physician Active S tart: June 17, 2025 End: June 17, 2025 Deborah Roa , JUMPBASTING MACHINE OPERATOR-C Referring Provider Active St art: June 17, 2025 End: June 17, 2025 Team Status: Inactive Member Role/Relationship Status Dates Deborah Roa , JUMPBASTING MACHINE OPERATOR-C Primary care physician Active Start: June 23, 2025 End: June 23, 2025 Dr. Juan Rush , Attending physician Active Star t: June 23, 2025 End: June 23, 2025 Dr. Juan Rush , DO Emergency Department Physician Active Start: June 23, 2025 End: June 23, 2025 Team Status: Inactive Member Role/Relationship Status Dates Deborah Roa , JUMPBASTING MACHINE OPERATOR-C Primary care physician Active Start: July 17, 2025 End: July 17, 2025 Deborah Roa , JUMPBASTING MACHINE OPERATOR-C Referring Provider Active St art: July 17, 2025 End: July 17, 2025 Elizabet Diop NP-C Attending physician Active Start: July 17, 2025 End: July 17, 2025 Team Status: Inactive Member Role/Relationship Status Dates Deborah Roa , JUMPBASTING MACHINE OPERATOR-C Primary care physician Active Start: July 17, 2025 End: July 17, 2025 Elizabet Diop NP-C Attending physician Active Start: July 17, 2025 End: July 17, 2025 Elizabet Diop NP-C Referring Provider Active Start: July 17, 2025 End: July 17, 2025 Team Status: Inactive Member Role/Relationship Status Dates Deborah Roa , JUMPBASTING MACHINE OPERATOR-C Primary care physician Active Start: August 04, 2025 End: August 04, 2025 Deborah Roa , JUMPBASTING MACHINE OPERATOR-C Attending physician Active S tart: August 04, 2025 End: August 04, 2025 Team Status: Inactive Member Role/Relationship Status Dates Deborah oRa , JUMPBASTING MACHINE OPERATOR-C Primary care physician Active Start: August 11, 2025 End: August 11, 2025 Deborah Roa , JUMPBASTING MACHINE OPERATOR-C Referring Provider Active St art: August 11, 2025 End: August 11, 2025 Elizabet Diop NP-C Attending physician Active Start: August 11, 2025 End: August 11, 2025 Team Status: Inactive Member Role/Relationship Status Dates Deborah Roa JUMPBASTING MACHINE OPERATOR-C Primary care physician Active Start: August 14, 2025 End: August 14, 2025 Elizabet Diop JUMPBASTING MACHINE OPERATOR-C Attending physician Active Start: August 14, 2025 End: August 14, 2025 Elizabet Diop JUMPBASTING MACHINE OPERATOR-C Referring Provider Active Start: August 14, 2025 End: August 14, 2025 Team Status: Inactive Member Role/Relationship Status Dates Deborah Roa JUMPBASTING MACHINE OPERATOR-C Primary care physician Active Start: August 26, 2025 End: August 26, 2025 Deborah Roa JUMPBASTING MACHINE OPERATOR-C Referring Provider Active St art: August 26, 2025 End: August 26, 2025 LANA Adan Attending physician Active Start: August 26, 2025 End: August 26, 2025 Team Status: Inactive Member Role/Relationship Status Dates Deborah Roa JUMPBASTING MACHINE OPERATOR-C Primary care physician Active Start: June 10, 2025 End: June 10, 2025 Anay Bull NP, JUMPBASTING MACHINE OPERATOR-C Attending physician Active Start: June 10, 2025 End: June 10, 2025 Anay Bull NP, JUMPBASTING MACHINE OPERATOR-C Referring Provider Active Start: June 10, 2025 End: June 10, 2025 Team Status: Inactive Member Role/Relationship Status Dates Deborah Roa JUMPBASTING MACHINE OPERATOR-C Primary care physician Active Start: June 10, 2025 End: June 10, 2025 Anay Bull NP, JUMPBASTING MACHINE OPERATOR-C Attending physician Active Start: June 10, 2025 End: June 10, 2025 Anay Bull NP, JUMPBASTING MACHINE OPERATOR-C Referring Provider Active Start: June 10, 2025 End: June 10, 2025 Team Status: Inactive Member Role/Relationship Status Dates Deborah Roa JUMPBASTING MACHINE OPERATOR-C Primary care physician Active Start: June 17, 2025 End: June 17, 2025 Deborah Roa JUMPBASTING MACHINE OPERATOR-C Attending physician Active S tart: June 17, 2025 End: June 17, 2025 Deborah Roa , JUMPBASTING MACHINE OPERATOR-C Referring Provider Active St art: June 17, 2025 End: June 17, 2025 Team Status: Inactive Member Role/Relationship Status Dates Deborah Roa JUMPBASTING MACHINE OPERATOR-C Primary care physician Active Start: June 23, 2025 End: June 23, 2025 Dr. Juan Rush DO Attending physician Active Star t: June 23, 2025 End: June 23, 2025 Dr. Juan Rush DO Emergency Department Physician Active Start: June 23, 2025 End: June 23, 2025 Team Status: Inactive Member Role/Relationship Status Dates Deborah Roa , JUMPBASTING MACHINE OPERATOR-C Primary care physician Active Start: July 17, 2025 End: July 17, 2025 Deborah Rao JUMPBASTING MACHINE OPERATOR-C Referring Provider Active St art: July 17, 2025 End: July 17, 2025 Elizabet Diop JUMPBASTING MACHINE OPERATOR-C Attending physician Active Start: July 17, 2025 End: July 17, 2025 Team Status: Inactive Member Role/Relationship Status Dates Deborah Roa JUMPBASTING MACHINE OPERATOR-C Primary care physician Active Start: July 17, 2025 End: July 17, 2025 Elizabet Diop JUMPBASTING MACHINE OPERATOR-C Attending physician Active Start: July 17, 2025 End: July 17, 2025 Elizabet Diop JUMPBASTING MACHINE OPERATOR-C Referring Provider Active Start: July 17, 2025 End: July 17, 2025 Team Status: Inactive Member Role/Relationship Status Dates Deborah Roa JUMPBASTING MACHINE OPERATOR-C Primary care physician Active Start: August 04, 2025 End: August 04, 2025 Deborah Roa JUMPBASTING MACHINE OPERATOR-C Attending physician Active S tart: August 04, 2025 End: August 04, 2025 Team Status: Inactive Member Role/Relationship Status Dates Deborah Roa JUMPBASTING MACHINE OPERATOR-C Primary care physician Active Start: August 11, 2025 End: August 11, 2025 Deborah Roa JUMPBASTING MACHINE OPERATOR-C Referring Provider Active St art: August 11, 2025 End: August 11, 2025 Elizabet Diop JUMPBASTING MACHINE OPERATOR-C Attending physician Active Start: August 11, 2025 End: August 11, 2025 Team Status: Inactive Member Role/Relationship Status Dates Deborah Roa JUMPBASTING MACHINE OPERATOR-C Primary care physician Active Start: August 14, 2025 End: August 14, 2025 Elizabet Diop JUMPBASTING MACHINE OPERATOR-C Attending physician Active Start: August 14, 2025 End: August 14, 2025 Elizabet Diop JUMPBASTING MACHINE OPERATOR-C Referring Provider Active Start: August 14, 2025 End: August 14, 2025 Team Status: Inactive Member Role/Relationship Status Dates Deborah Crispin , JUMPBASTING MACHINE OPERATOR-C Primary care physician Active Start: August 26, 2025 End: August 26, 2025 Deborah Roa , JUMPBASTING MACHINE OPERATOR-C Referring Provider Active St art: August 26, 2025 End: August 26, 2025 LANA Adan Attending physician Active Start: August 26, 2025 End: August 26, 2025 Team Status: Inactive Member Role/Relationship Status Dates Deborah Roa JUMPBASTING MACHINE OPERATOR-C Primary care physician Active Start: September 17, 2025 End: September 17, 2025 Deborah Roa , JUMPBASTING MACHINE OPERATOR-C Referring Provider Active St art: September 17, 2025 End: September 17, 2025 Dr. Tito Morris DO Attending physician Active Start: September 17, 2025 End: September 17, 2025 Team Status: Active Member Role/Relationship Status Dates Deborah Roa JUMPBASTING MACHINE OPERATOR-C Primary care physician Active Start: September 17, 2025 Deborah Roa , JUMPBASTING MACHINE OPERATOR-C Referring Provider Active St art: September 17, 2025 Dr. Tito Morris DO Attending physician Active Start: September 17, 2025 Dr. Tito Morris DO Nurse Practitioner Active Start: September 17, 2025 Team Status: Inactive Member Role/Relationship Status Dates Deboarh Roa , JUMPBASTING MACHINE OPERATOR-C Primary care physician Active Start: September 23, 2025 End: September 23, 2025 Deborah Roa , JUMPBASTING MACHINE OPERATOR-C Referring Provider Active St art: September 23, 2025 End: September 23, 2025 LANA Adan Attending physician Active Start: September 23, 2025 End: September 23, 2025 Team Status: Inactive Member Role/Relationship Status Dates Deborah Roa , JUMPBASTING MACHINE OPERATOR-C Primary care physician Active Start: September 23, 2025 End: September 23, 2025 LANA Adan Attending physician Active Start: September 23, 2025 End: September 23, 2025 LANA Adan Referring Provider Active Start: September 23, 2025 End: September 23, 2025 FOR RECORDS PERTAINING TO PATIENTS WHO [...] BE BASED ON THE PRIMARY CLINICAL RECORDS. [facility]. provides no warranty or guarantee of the accuracy or completeness of information in this document.
--- NOTE | 2025-10-22 12:43 | CT_ITS ---
PROCEDURE: CTA CHEST W/WO CONTRAST 10/22/2025 REASON FOR EXAM: CHEST PAIN, WIDE MEDIASTINUM TECHNIQUE: Procedure Code: [id number] Modality: CT Procedure: CTA CHEST W/WO CONTRAST Multiplanar Sagittal and Coronal images were obtained. 3D post processing was performed CONTRAST: Isovue 370 VOLUME: 100 mL One or more dose reduction techniques were used (e.g., Automated exposure control, adjustment of the mA and/or kV according to patient size, use of iterative reconstruction technique). RADIATION DOSE SUMMARY: CTDlvol: 26 mGy DLP: 568 mGycm COMPARISON: June 10, 2025 # of known CTs in the past 12 months: 2 # of known Cardiac Nuclear Medicine Studies in the past 12 months: 1 FINDINGS: Thoracic Aorta: No evidence of aortic rupture, dissection or aneurysm. Mild mass effect on the aortic arch related to mediastinal lymph node masses. Heart: Heart is normal size. Mild pericardial effusion. No significant coronary artery disease. Pulmonary Vessels: The timing and quality of the contrast bolus is diagnostic. There is no evidence of acute or chronic pulmonary embolus. Mass effect is present on the left main pulmonary artery and interlobar pulmonary artery. Hardware: None Lymph nodes: Enlarged, confluent lymph nodes in the mediastinum include the following lymph node groups: Prevascular, upper and lower paratracheal, AP window, preaortic, left hilar, left interlobar. Anterior mediastinal and left subclavian. Left axillary and subpectoral lymph nodes are enlarged as well. An index lymph node left axillary region is 5.4 x 3.7 cm. Anterior mediastinal node is 4.7 x 2.7 cm. Lungs and Airways: Mild ground-glass and smooth interlobular septal thickening is seen in the left lung. Resorptive atelectasis of the majority of the left lower lobe related to mass effect. Pleura: No pleural effusion on the right. Small volume pleural fluid on the left. Upper Abdomen: Mass involving the anterior limb left adrenal is 2.7 x 1.4 cm. A 2nd mass is seen involving the body measuring 1.6 x 2.0 cm. Right adrenal is normal. Bones: Normal CT/CTA Chest W/WO Contrast IMPRESSION: Mediastinal masses outlined above favored to represent confluent lymph nodes. This is also shown in the sub subclavian region medially and the left axillary and prepectoral region. Consider lymphoma. [facility] pulmonary malignancy favored less. The axillary lesion may be amenable to percutaneous sampling by ultrasound. Secondary mass effect upon the left main pulmonary artery. Mass effect on the bronchus with resorptive atelectasis left lower lobe. Left adrenal masses. No evidence of pulmonary embolus. Reading Location: [id number]
[2025-10-22 12:49] LABS: D-Dimer Quantitative (DVT/PE) 1.45 FEU/ug/m (0.27-0.49)
[2025-10-22] MEDS: Potassium Chloride Oral Tablet 20 MEQ 40 MEQ PO (13:26)
[2025-10-22 13:28] VITALS: BP 152/90; PULSE 73; RESP 20; O2SAT 98
[2025-10-22 13:56] VITALS: BP 152/90; PULSE 73; RESP 20; TEMP 36.8; O2SAT 98
[2025-10-22 14:08] LABS: Troponin T High Sens 2 HR 14 ng/L (<=22)
== END 2025-10-22 14:26 | disposition home or self-care (01) ==
PROVIDERS: Emergency Provider Emergency Medicine; PCP Nurse Practitioner Family; Visit Provider Emergency Medicine
DX: R07.9 Chest pain, unspecified (principal); E66.01 Morbid (severe) obesity due to excess calories; Z68.41 Body mass index [BMI] 40.0-44.9, adult; R91.8 Other nonspecific abnormal finding of lung field; I10 Essential (primary) hypertension; F17.210 Nicotine dependence, cigarettes, uncomplicated; Z79.899 Other long term (current) drug therapy
CPT/HCPCS: 71045; 71275; 80048; 80076; 83690; 84484; 85025; 85379; 93005; 96361; 96374; 96375; 99284; Q9967; A4216; J2405

== ENCOUNTER 2025-10-30 12:51 | Emergency (ER) | payer MEDICARE, MEDICAID, SELFPAY ==
[2025-10-30 12:52] VITALS: BP 189/100; PULSE 80; RESP 26; TEMP 36.8; O2SAT 98
[2025-10-30 12:55] VITALS: BP 189/100; PULSE 80; RESP 24; TEMP 36.8; O2SAT 98
--- NOTE | 2025-10-30 13:09 | ED.VIS.CHEST ---
HPI History of Present Illness Chief Complaint: Chest Pain Narrative Narrative: Patient is a 55-year-old male presenting to the emergency department for 6 months of chest pain, shortness of breath and nausea. Patient has a past medical history of nicotine dependence, active smoker, morbid obesity, hypertension, COPD, CVAs. Patient states on 10/22 he was seen here in the emergency department and diagnosed with lymphoma with mediastinal masses as well as a mass on the left main pulmonary artery. Today he was having a ultrasound done of the left axilla in radiology to plan for biopsy of the mass when the laboratory development technician recommended he come to the ED for evaluation. Patient endorses midsternal chest pain that does not radiate. He states it feels like a pushing sensation. He endorses shortness of breath with exertion. He endorses nausea with intermittent nonbloody nonbilious vomiting. States that his symptoms have not changed at all. He saw Dr. Conner on 10/28/25 and it is noted that he does not think his symptoms are caused by the lymph node enlargement. He felt that his symptoms were likely related to his underlying COPD and chronic medical issues. Patient denies any history of cardiac problems in the past. [facility] Medical History Lymphadenopathy, generalized Emphysema, unspecified Wears glasses Loose, teeth Ambulates with cane High cholesterol Heartburn Gastric reflux Chronic cough Chest pain History of CVA (cerebrovascular accident) Back pain Arthritis Essential (primary) hypertension Osteoarthritis of knees, bilateral Tobacco use disorder, continuous Encounter for screening for malignant neoplasm of lung Constipation Chronic pain Smoker Migraines TIA (transient ischemic attack) HTN (hypertension) Morbid obesity Home Medications ?Medication ?Instructions ?Recorded ?Last Taken ?Type losartan 100 mg tablet 100 mg PO DAILY #30 tabs 05/05/25 10/21/25 Rx hydrocodone-acetaminophen 5-325mg 1 tab PO Q6H PRN PRN Pain 3 days 10/30/25 Unknown Rx 5mg-325mg #10 TABLETS Allergy/AdvReac Type Severity Reaction Status Date / Time No Known Allergies Allergy Verified 10/30/25 12:52 Family History Grandfather Cancer lung cancer Surgical History History of right knee joint replacement Social History Smoking Status: Current every day smoker tobacco type: cigarettes Tobacco: How many years used: 30 alcohol intake: never substance use type: other details: magic mushrooms for pain ROS ROS ED ROS Narrative see HPI EXAM Physical Exam Narrative Exam Narrative: Vital signs: Reviewed General: Alert and orientedx3. Appears uncomfortable. Chronically ill-appearing. HEENT: Head is normocephalic and atraumatic, sinuses nontender, pupils equal round and reactive. Nares are patent. Oropharynx and throat exams normal. Neck: Supple without lymphadenopathy nontender Cardiovascular: Regular rate and rhythm, no murmurs. No rubs or gallops. Normal S1 and S2. Pulses intact and symmetric throughout. Respiratory: Decreased breath sounds due to body habitus. No wheezes, rales, rhonchi Abdominal: Soft and nontender. Normal bowel sounds. No guarding or rebound. Nonsurgical abdomen Extremities: No tenderness. No bruising. Normal range of motion. Normal sensation. Skin: No rash or redness. The rest of the physical exam is unremarkable Const Vital Signs: 10/30/25 12:52 10/30/25 12:55 10/30/25 12:56 Temperature 98.2 F 98.2 F Temperature Source Oral Oral Pulse Rate 80 80 Respiratory Rate 26 H 24 H Respiratory Effort Short of Breath Blood Pressure 189/100 H 189/100 H Blood Pressure Mean 129 129 Pulse Ox 98 98 Oxygen Delivery Method Room Air Room Air 10/30/25 14:00 10/30/25 14:47 Temperature 98.7 F 97.8 F Temperature Source Oral Pulse Rate 76 64 Respiratory Rate 18 18 Respiratory Effort Blood Pressure 138/76 H 149/71 H Blood Pressure Mean 96 97 Pulse Ox 98 99 Oxygen Delivery Method Room Air MDM MDM MDM Narrative Medical decision making narrative: Patient is a 55-year-old male presenting to the emergency department for chest pain, shortness of breath on exertion and nausea that been going on for 5 to 6 months. Patient was seen and examined. Vitals are stable. Patient appears uncomfortable sitting on the edge of the bed, no acute distress. Given morphine and pepcid for symptoms. Differential includes but is not limited to: ACS, PE, COPD exacerbation, electrolyte abnormality, pneumonia, lymphadenopathy causing the symptoms, acid reflux, gastritis Patient just had a CTA of the chest on 10/22 that showed no pulmonary embolism. Will obtain CTA chest, abdomen, pelvis to rule out aortic cause of his symptoms. Given his symptoms have been present for the past 5 to 6 months I suspect that his workup will be negative here. Symptoms may be related to his lymphadenopathy. CBC with no leukocytosis and a normal hemoglobin. BMP with mild hyponatremia that is much improved from his baseline at 132. Hypokalemia 2.9, oral replacement given. Troponin within normal limits. Initial EKG with poor baseline. Does show normal sinus rhythm with right bundle branch block and left anterior fascicular block. Asked that the EKG be repeated and the patient is more comfortable. Repeat EKG with normal sinus rhythm, left axis deviation and a right bundle branch block. No ischemic changes noted. No dysrhythmia. He has had the pain for 6 months I do not he needs a reflex troponin not expected to be elevated if this was ACS in nature. BNP within normal limits. CTA shows no evidence of pulmonary embolism. Similar to CTA October 22, 2025, extensive confluent mediastinal and left hilar lymphadenopathy causing encasement and narrowing of the left main pulmonary artery. Atelectasis and small pleural effusion in the left lower lobe. Left adrenal mass measures 2.4 x 1.4 cm. Patient and significant other at bedside were updated on the findings. His symptoms have been present for 6 months, I think the patient is stable for outpatient management. Patient able to tolerate p.o. Asking for pain medication for home. Will be prescribed a short course of Percocet for home. Recommended following up with his primary care doctor as well as his oncologist as soon as possible. All questions answered. Patient discharged from the Emergency Department. I do not feel that the patient's evaluation reveals any acute reason for admission at this time. I instructed them to either follow-up with their primary care physician or promptly return to the Emergency Department for reevaluation should symptoms worsen or new symptoms develop. I explained what symptoms would indicate the need to return to the emergency department. Shared decision making was used. The patient voiced understanding of the treatment plan and is agreeable with it. Clinical impression Chest pain Dyspnea Nausea History & Record Review Discussion w/independent historian: Patient and Significant other Additional record(s) reviewed:: Prior ED visit and Prior labs Lab Data Attestation: I reviewed the patient's lab results. Labs: Laboratory Results - last 24 hr 10/30/25 12:55 WBC 7.4 RBC 4.76 Hgb 13.2 Hct 38.3 L MCV 80.5 MCH 27.7 MCHC 34.5 RDW Std Deviation 39.4 RDW Coeff of Senia 13.4 Plt Count 297 MPV 9.9 Immature Gran % (Auto) 0.500 Neut % (Auto) 70.5 H Lymph % (Auto) 17.4 L Kings % (Auto) 9.8 Eos % (Auto) 1.4 Baso % (Auto) 0.4 Absolute Neuts (auto) 5.2 Absolute Lymphs (auto) 1.28 Nucleated RBC % 0 Sodium 132 L Potassium 2.9 L Chloride 88 L Carbon Dioxide 28.9 Anion Gap 14 BUN 7 Creatinine 0.83 Est GFR (MDRD) Non-Af 103 BUN/Creatinine Ratio 8.6 L Glucose 101 H Calcium 9.2 Troponin T High Sens 13 D NT pro BNP II < 36 Radiography Diagnostic Testing: Clinical Impression(s) from Imaging Studies Chest/Abdomen/Pelvis CTA 10/30/25 13:18 IMPRESSION: No evidence of pulmonary embolism. Similar to CTA October 22, 2025, extensive confluent mediastinal and left hilar lymphadenopathy causing encasement and narrowing of the left main pulmonary artery. Atelectasis and small pleural effusion in the left lower lobe. Left adrenal mass measures 2.4 x 1.4 cm. Reading Location: [facility] Discharge Plan Triage Chief Complaint: Chest Pain ED Provider: Helena Kline Dx/Rx/DC Orders Clinical Impression: Chest pain, Dyspnea, Nausea Instructions: ED Chest Pain, Uncertain Cause, ED Dyspnea Prescriptions: New hydrocodone-acetaminophen 5-325 mg tablet 1 tab PO Q6H PRN PRN (Reason: Pain) 3 Days Qty: 10 0RF No Action losartan 100 mg Tablet 100 mg PO DAILY Qty: 30 0RF Primary Care Provider: Deborah Roa Referrals: Denisse Conner MD [Med Staff - Active Staff, Oncology] - As soon as possible Deborah Roa, WATCH DIAL MAKER-C [Primary Care Provider, Family Practice] - As soon as possible Activity Restrictions/Additional Instructions: Please follow-up with your primary care doctor and oncologist as soon as possible. Your evaluation in the Emergency Department did not reveal any acute reason for admission. However, I want to emphasize that you may be early in the course of a disease process or illness even if it is not present. For this reason you should follow-up within 24 hours for reevaluation with either your primary care physician or if necessary back here in the Emergency Department. You should return to the Emergency Department immediately if your symptoms worsen or new symptoms develop. Print Language: Citizen Of [place] Disposition Disposition: Home, Self Care Discharge Date/Time: 10/30/25 14:48
--- NOTE | 2025-10-30 13:18 | EKG12_ITS ---
Test Reason : CHEST PAIN Blood Pressure : */* mmHG Vent. Rate : 74 BPM Atrial Rate : 74 BPM P-R Int : 152 ms QRS Dur : 184 ms QT Int : 478 ms P-R-T Axes : 36 -42 -5 degrees QTcB Int : 530 ms Normal sinus rhythm Left axis deviation Right bundle branch block Abnormal ECG Confirmed by KI GALLOWAY, LAMONTE ([id number]), magazine editor TITO FRIAS ([id number]) on 10/31/2025 9:19:16 AM Referred By: Confirmed By: LAMONTE EMERSON MD
--- NOTE | 2025-10-30 13:18 | CT_ITS ---
PROCEDURE: CTA CHST, ABD, PEL W AND/OR WO 10/30/2025 REASON FOR EXAM: RULE OUT AORTIC TECHNIQUE: Procedure Code: CTCTA.CHAP.2 Modality: CT Procedure: CTA CHST, ABD, PEL W AND/OR WO Coronal and Sagittal reconstruction series were provided. One or more dose reduction techniques were used (e.g., Automated exposure control, adjustment of the mA and/or kV according to patient size, use of iterative reconstruction technique. CONTRAST: Isovue 370 VOLUME: 75 mL RADIATION DOSE SUMMARY: CTDlvol: 23.69 mGy DLP: 1378.45 mGycm COMPARISON: CTA chest October 22, 2025. FINDINGS: CHEST: Lines and tubes: None. Mediastinum: Extensive confluent mediastinal and left hilar lymphadenopathy causing encasement and narrowing of the left main pulmonary artery. Heart: Mild cardiomegaly. Small pericardial effusion. Thoracic Aorta: No aneurysm. Lungs and Airways: Atelectasis in the left lower lobe with small left pleural effusion. Pleura: Small left pleural effusion Bones: No acute bony abnormalities. ABDOMEN AND PELVIS: Liver: Unremarkable. Gallbladder: Unremarkable. No biliary dilation. Spleen: Unremarkable. Pancreas: Unremarkable. Adrenals: A 1.4 x 2.4 cm left adrenal mass concerning for metastasis. The right adrenal gland is unremarkable. Kidneys: No hydronephrosis. No nephrolithiasis. Bladder: Unremarkable. Reproductive Organs: Unremarkable. Bowel: No bowel thickening. No bowel obstruction. Vasculature: No aneurysm. Peritoneum / Retroperitoneum: No free air or free fluid. Bones: No acute bony abnormalities. CT/CTA Chst, Abd, Pel W and/or WO IMPRESSION: No evidence of pulmonary embolism. Similar to CTA October 22, 2025, extensive confluent mediastinal and left glenna r lymphadenopathy causing encasement and narrowing of the left main pulmonary artery. Atelectasis and small pleural effusion in the left lower lobe. Left adrenal mass measures 2.4 x 1.4 cm. Reading Location: [facility]
[2025-10-30 13:30] LABS: Hematocrit 38.3 % (40-54); Hemoglobin 13.2 g/dL (13.0-16.5); Immature Granulocytes Count 0.040 X10^3/uL (0.0-0.0); Mean Corp Hgb Conc 34.5 g/dL (32-36); Mean Corpuscular Volume 80.5 fL (80-94); Mean Platelet Vol. 9.9 fl (6.2-12.0); NRBC Flagged by Analyzer 0 % (0-5); Platelet Count 297 K/mm3 (150-450); RBC Distribution Width CV 13.4 % (11.6-14.6); RBC Distribution Width SD 39.4 fl (35.1-43.9); Red Blood Count 4.76 M/mm3 (4.6-6.2); White Blood Count 7.4 K/mm3 (4.4-11.0)
--- NOTE | 2025-10-30 13:30 | EKG12_ITS ---
Test Reason : CHEST PAIN Blood Pressure : */* mmHG Vent. Rate : 78 BPM Atrial Rate : 78 BPM P-R Int : 158 ms QRS Dur : 178 ms QT Int : 464 ms P-R-T Axes : 54 -54 17 degrees QTcB Int : 528 ms Normal sinus rhythm Right bundle branch block Left anterior fascicular block Bifascicular block Cannot rule out Inferior infarct (masked by fascicular block?) , age undetermined Abnormal ECG Confirmed by KI GALLOWAY, LAMONTE ([id number]), assistant editor TITO FRIAS ([id number]) on 10/31/2025 9:19:28 AM Referred By: Confirmed By: LAMONTE EMERSON MD
[2025-10-30 14:00] VITALS: BP 138/76; PULSE 76; RESP 18; TEMP 37.1; O2SAT 98
[2025-10-30 14:08] LABS: Anion Gap 14 (5-15); BUN 7 mg/dL (4-19); BUN/Creat Ratio 8.6 RATIO (10-20); Calcium,Total 9.2 mg/dL (7.6-11.0); Carbon Dioxide 28.9 mmol/L (21.0-32.0); Chloride 88 mmol/L (98-108); Glucose 101 mg/dL (70-99); Potassium 2.9 mmol/L (3.3-5.1)
[2025-10-30 14:09] LABS: Pro- Brain NATRIURETIC PEPTIDE < 36 pg/mL (<=900); Troponin T High Sensitivity 13 ng/L (<=22)
[2025-10-30] MEDS: Potassium Chloride Oral Tablet 20 MEQ 40 MEQ PO (14:27)
[2025-10-30 14:47] VITALS: BP 149/71; PULSE 64; RESP 18; TEMP 36.6; O2SAT 99
== END 2025-10-30 14:48 | disposition home or self-care (01) ==
PROVIDERS: Emergency Provider Student in an Organized Health Care Education/Training Program; PCP Nurse Practitioner Family; Visit Provider Student in an Organized Health Care Education/Training Program
DX: R07.9 Chest pain, unspecified (principal); C85.20 Mediastinal (thymic) large B-cell lymphoma, unspecified site; J43.9 Emphysema, unspecified; E66.01 Morbid (severe) obesity due to excess calories; R11.2 Nausea with vomiting, unspecified; R06.02 Shortness of breath; I10 Essential (primary) hypertension; E78.00 Pure hypercholesterolemia, unspecified; M19.90 Unspecified osteoarthritis, unspecified site; M17.0 Bilateral primary osteoarthritis of knee; G89.29 Other chronic pain; F17.210 Nicotine dependence, cigarettes, uncomplicated; Z86.73 Personal history of transient ischemic attack (TIA), and cerebral infarction without residual deficits; Z79.899 Other long term (current) drug therapy
CPT/HCPCS: 71275; 74174; 76882; 80048; 83880; 84484; 85025; 93005; 96374; 99284; Q9967; A4216

== ENCOUNTER → 2025-10-30 | Outpatient (CLI) | payer MEDICARE, MEDICAID, SELFPAY ==
--- NOTE | 2025-10-30 12:07 | US_ITS ---
PROCEDURE: EXT NON VASC LIMITED/SOFT TISS 10/30/2025 REASON FOR EXAM: ASSESS ENLARGED LYMPH NODES TECHNIQUE: Procedure Code: [id number] Modality: US Procedure: EXT NON VASC LIMITED/SOFT TISS COMPARISON: None FINDINGS: Left axillary lymph nodes measuring 1.8 x 1.2 x 0.6 cm, 2.3 x 1.4 x 0.7 cm and 4.6 x 3.5 x 2.3 cm. Nodules show central fatty hilum. The largest nodule appears lobulated. US/Ext Non Vasc Limited/Soft Tiss IMPRESSION: Left axillary lymph nodes. The largest nodule measures 4.6 x 3.5 x 2.3 cm with lobulated outlines yet preserved with fatty hilum. Follow-up is recommended and further evaluation as clinically warranted would be helpful Reading Location: [place] [id number]
== END | disposition home or self-care (01) ==
LOC: US 12:05
PROVIDERS: PCP Nurse Practitioner Family; Referring Provider Internal Medicine Hematology & Oncology; Visit Provider Internal Medicine Hematology & Oncology
DX: R59.1 Generalized enlarged lymph nodes (principal)
CPT/HCPCS: 76882

== ENCOUNTER 2025-11-03 15:11 | Inpatient (IN) | payer MEDICARE, MEDICAID, SELFPAY ==
[2025-11-03 15:12] VITALS: BP 163/109; PULSE 73; RESP 24; TEMP 36.4; O2SAT 99
--- NOTE | 2025-11-03 15:13 | ED.VIS.CHEST ---
HPI History of Present Illness Chief Complaint: Chest Pain Narrative Narrative: Patient is a 55-year-old male presenting to the emergency department for chest pain. Patient has a past medical history of nicotine abuse, morbid obesity, CVAs, COPD, hypertension. Was recently diagnosed on 10/22 for lymphoma with mediastinal masses. He was just seen on 10/30 for chest pain, shortness of breath and nausea. Patient was discharged after negative workup with Percocet. Patient states that he came in to get a biopsy of his mass today when the chest pain returned. He states it is midsternal to epigastric does not radiate anywhere. Feels like a truck sitting on my chest. He endorses nausea with no vomiting. Endorses shortness of breath with any activity. Denies fever, chills, cough. [facility] Medical History Lymphadenopathy, generalized Emphysema, unspecified Wears glasses Loose, teeth Ambulates with cane High cholesterol Heartburn Gastric reflux Chronic cough Chest pain History of CVA (cerebrovascular accident) Back pain Arthritis Essential (primary) hypertension Osteoarthritis of knees, bilateral Tobacco use disorder, continuous Encounter for screening for malignant neoplasm of lung Constipation Chronic pain Smoker Migraines TIA (transient ischemic attack) HTN (hypertension) Morbid obesity Home Medications ?Medication ?Instructions ?Recorded ?Last Taken ?Type losartan 100 mg tablet 100 mg PO DAILY #30 tabs 05/05/25 11/02/25 Rx amoxicillin 500 mg capsule 500 mg PO TID 11/03/25 11/03/25 History fluconazole 200 mg tablet 200 mg PO DAILY PRN 11/03/25 Unknown History hydrocodone 10 mg-acetaminophen 1 tab PO Q6H PRN pain 11/03/25 11/03/25 09:00 History 325 mg tablet metoclopramide HCl 5 mg tablet 5 mg PO Q8H 11/03/25 11/03/25 History Allergy/AdvReac Type Severity Reaction Status Date / Time No Known Allergies Allergy Verified 11/03/25 15:16 Family History Grandfather Cancer lung cancer Surgical History History of right knee joint replacement Social History Smoking Status: Current every day smoker tobacco type: cigarettes Tobacco: How many years used: 30 alcohol intake: never substance use type: other details: magic mushrooms for pain ROS ROS ED ROS Narrative see HPI EXAM Physical Exam Narrative Exam Narrative: Vital signs: Reviewed General: Alert and oriented x 3. No acute distress. Obese. HEENT: Head is normocephalic and atraumatic, sinuses nontender, pupils equal round and reactive. Nares are patent. Oropharynx and throat exams normal. Neck: Supple without lymphadenopathy nontender Cardiovascular: Regular rate and rhythm, no murmurs. No rubs or gallops. Normal S1 and S2. Pulses are symmetric and intact throughout. Respiratory: Clear to auscultation bilaterally. No wheezes, rales, rhonchi Abdominal: Soft and nontender. Normal bowel sounds. No guarding or rebound. Nonsurgical abdomen Extremities: No tenderness. No bruising. Normal range of motion. Normal sensation. Skin: No rash or redness. Neurological: Cranial nerves II through XII are grossly intact. Normal strength and sensation. Normal cerebellar function The rest of the physical exam is unremarkable Const Vital Signs: 11/03/25 15:12 11/03/25 15:28 11/03/25 16:11 Temperature 97.6 F L Temperature Source Oral Pulse Rate 73 84 Respiratory Rate 24 H Respiratory Effort Short of Breath Blood Pressure 163/109 H 150/112 H Blood Pressure Mean 127 124 Pulse Ox 99 96 Oxygen Delivery Method Room Air Room Air 11/03/25 17:00 11/03/25 19:00 11/03/25 19:00 Temperature 98 F Temperature Source Pulse Rate 74 81 74 Respiratory Rate 18 19 H 18 Respiratory Effort Blood Pressure 155/90 H 155/91 H 155/90 H Blood Pressure Mean 111 112 111 Pulse Ox 99 99 99 Oxygen Delivery Method Room Air Room Air Heart Score Age: >45 - <65 years Risk Factors: >/= 3 Risk Factors or History of CAD Score: 3 MDM MDM MDM Narrative Medical decision making narrative: Patient is a 55-year-old male presenting to the emergency department for chest pain. Patient was seen and examined. Vitals are stable. He is mildly hypertensive at 163/109 on arrival. Saturating 99% on room air. No acute distress. Differential includes but is not limited to: Pain from lymphadenopathy/mass, ACS, acid reflux, pancreatitis, gastritis, gastric ulcer, less likely PE or aortic pathology, just had a negative CT 4 days ago and his symptoms are unchanged. No tachycardia, no hypoxia. Pulses are symmetric and equal throughout. No ripping or tearing chest pain. Morphine given for pain control. EKG shows normal sinus rhythm. Appears similar to EKG on 10/30. No new ischemic changes. No dysrhythmia. CBC with no leukocytosis and a normal hemoglobin. BMP with hypokalemia of 2.8 and hyponatremia of 125, consistent with prior labs. PO potassium given. Lipase within normal limits. Troponin of 14, reflex of 12. I do not think his symptoms are related to cardiac cause. Patient had a negative CT of his chest on 10/30, I do not think he needs repeat imaging given his pain has not changed. Will obtain cxr to rule out pneumothorax, pneumonia. Chest x-ray reviewed myself, no opacities, pneumothorax or right mediastinum. Radiology read in agreement. They are reading it as probable edema. BNP within normal limits. I did trial a GI cocktail of Maalox and viscous lidocaine as well as Protonix for possible gastric cause of the patient's symptoms. He has had some mild improvement in his symptoms but no significant improvement. States he is in a lot of pain still. He was given an additional dose of morphine. Patient is asking to be admitted for pain control given this is his second visit in 4 days. I do think this is appropriate given the patient was discharged on Percocet prior and was unable to tolerate the pain at home due to this. Patient admitted to Dr. Funez for further management. Clinical impression: Chest pain Hyponatremia Hypokalemia History & Record Review Discussion w/independent historian: Patient Additional record(s) reviewed:: Prior ED visit and Prior labs Lab Data Attestation: I reviewed the patient's lab results. Labs: Laboratory Results - last 24 hr 11/03/25 11/03/25 15:30 17:29 WBC 6.1 RBC 4.88 Hgb 13.9 Hct 38.1 L MCV 78.1 L MCH 28.5 MCHC 36.5 H D RDW Std Deviation 38.2 RDW Coeff of [place] 13.5 Plt Count 257 MPV 9.8 Immature Gran % (Auto) 0.200 Neut % (Auto) 63.9 Lymph % (Auto) 23.4 [place] % (Auto) 10.5 H Eos % (Auto) 1.3 Baso % (Auto) 0.7 Absolute Neuts (auto) 3.9 Absolute Lymphs (auto) 1.42 Nucleated RBC % 0 Sodium 125 L Potassium 2.8 L Chloride 83 L Carbon Dioxide 27.2 Anion Gap 15 BUN 4 Creatinine 0.66 L Est GFR (MDRD) Non-Af 110 BUN/Creatinine Ratio 5.9 L Glucose 102 H Calcium 9.6 Troponin T High Sens 14 D Troponin T Hi Sens 2 Hr 12 NT pro BNP II < 36 Radiography Diagnostic Testing: Clinical Impression(s) from Imaging Studies Chest X-Ray 11/03/25 15:26 IMPRESSION: Probable edema. Reading Location: [facility] Discharge Plan Disposition Disposition: Acute Care Hospital [facility] Discharge Date/Time: 11/03/25 20:20
--- NOTE | 2025-11-03 15:26 | EKG12_ITS ---
Test Reason : CP Blood Pressure : */* mmHG Vent. Rate : 78 BPM Atrial Rate : 78 BPM P-R Int : 212 ms QRS Dur : 154 ms QT Int : 430 ms P-R-T Axes : 54 -45 32 degrees QTcB Int : 490 ms Sinus rhythm with 1st degree A-V block Left axis deviation Right bundle branch block Possible Septal infarct , age undetermined Possible Inferior infarct , age undetermined Abnormal ECG Confirmed by Noé Ken ([id number]), tape editor JORDIN RAMIREZ ([id number]) on 11/05/2025 11:36:56 AM Referred By: JAMES Confirmed By: Noé Ken
--- NOTE | 2025-11-03 15:26 | RAD_ITS ---
PROCEDURE: CHEST PA AND LATERAL 11/03/2025 REASON FOR EXAM: CHEST PAIN TECHNIQUE: Procedure Code: RADCXR Modality: DX Procedure: CHEST PA AND LATERAL COMPARISON: 10/22/2025. FINDINGS: The heart is enlarged. Vascular indistinctness lung bases suggestive of edema in the setting of cardiomegaly. No acute osseous abnormalities. RAD/Chest PA and Lateral IMPRESSION: Probable edema. Reading [facility]
[2025-11-03 15:44] LABS: Hematocrit 38.1 % (40-54); Hemoglobin 13.9 g/dL (13.0-16.5); Immature Granulocytes Count 0.010 X10^3/uL (0.0-0.0); Mean Corp Hgb Conc 36.5 g/dL (32-36); Mean Corpuscular Volume 78.1 fL (80-94); Mean Platelet Vol. 9.8 fl (6.2-12.0); NRBC Flagged by Analyzer 0 % (0-5); Platelet Count 257 K/mm3 (150-450); RBC Distribution Width CV 13.5 % (11.6-14.6); RBC Distribution Width SD 38.2 fl (35.1-43.9); Red Blood Count 4.88 M/mm3 (4.6-6.2); White Blood Count 6.1 K/mm3 (4.4-11.0)
[2025-11-03 16:11] VITALS: BP 150/112; PULSE 84; O2SAT 96
[2025-11-03] MEDS: Lidocaine 2% Viscous15 ML UDC 15 ML PO (16:13)
[2025-11-03 16:24] LABS: Anion Gap 15 (5-15); BUN 4 mg/dL (4-19); BUN/Creat Ratio 5.9 RATIO (10-20); Calcium,Total 9.6 mg/dL (7.6-11.0); Carbon Dioxide 27.2 mmol/L (21.0-32.0); Chloride 83 mmol/L (98-108); Glucose 102 mg/dL (70-99); Potassium 2.8 mmol/L (3.3-5.1); Troponin T High Sensitivity 14 ng/L (<=22)
[2025-11-03 17:00] VITALS: BP 155/90; PULSE 74; RESP 18; O2SAT 99
[2025-11-03 17:19] LABS: Pro- Brain NATRIURETIC PEPTIDE < 36 pg/mL (<=900)
[2025-11-03] MEDS: Potassium Chloride Oral Tablet 20 MEQ 40 MEQ PO (17:28)
[2025-11-03 18:23] LABS: Troponin T High Sens 2 HR 12 ng/L (<=22)
[2025-11-03 19:00] VITALS: BP 155/90; BP 155/91; PULSE 74; PULSE 81; RESP 18; RESP 19; TEMP 36.6; O2SAT 99
--- NOTE | 2025-11-03 19:02 | PCM.HP.STD ---
HPI - General General Date of Admission: 11/03/25 Date of Service: 11/03/25 Chief Complaint: Epigastric/chest pain HPI Narrative LYNNETTE GONG, is a 55-year-old male history of hypertension, GERD, COPD, nicotine use, morbid obesity who presented [facility] ED 11/03/2025 for chest pain. 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 He was seen on 10/30 for chest pain, shortness of breath, nausea but discharged after negative workup. Reportedly came in to get a biopsy of the mass today and that is when his chest pain returned which is epigastric to midsternal in nature and pressure-like. No radiation of the pain. Does have nausea with no vomiting. Shortness of breath with activity. In the ED temp 97.6, heart rate 73, respiratory 24, blood pressure 163/109, pulse ox 99% on room air. CBC with a white blood cell count of 6.1, hemoglobin 13.9, BMP with sodium of 125, potassium of 2.8, BUN of 4 creatinine 0.66, troponin 14. CXR reported out as probable edema. proBNP less than 36. Given patient's symptoms of unclear etiology hospitalist contacted for admission. Patient evaluated bedside. He reports lower chest/upper epigastric pain that has been present recently and increasingly distressing. Feels a little bit better at time of evaluation but he is not sure which thing was helpful that he received. He does note that when he lays down at night especially if it is flat on his back he will wake up because the pain is much worse. Notes he completed his fluconazole after his endoscopy previously but does not believe he has been on pantoprazole or anything for reflux. Denies any nausea at this time but reports since being in the ER he has felt sick to his stomach but clarified that he just has a queasy generally unwell feeling in his stomach. [facility] Medical History Lymphadenopathy, generalized Emphysema, unspecified Wears glasses Loose, teeth Ambulates with cane High cholesterol Heartburn Gastric reflux Chronic cough Chest pain History of CVA (cerebrovascular accident) Back pain Arthritis Essential (primary) hypertension Osteoarthritis of knees, bilateral Tobacco use disorder, continuous Encounter for screening for malignant neoplasm of lung Constipation Chronic pain Smoker Migraines TIA (transient ischemic attack) HTN (hypertension) Morbid obesity Home Medications ?Medication ?Instructions ?Recorded ?Last Taken ?Type losartan 100 mg tablet 100 mg PO DAILY #30 tabs 05/05/25 11/02/25 Rx amoxicillin 500 mg capsule 500 mg PO TID 11/03/25 11/03/25 History fluconazole 200 mg tablet 200 mg PO DAILY PRN 11/03/25 Unknown History hydrocodone 10 mg-acetaminophen 1 tab PO Q6H PRN pain 11/03/25 11/03/25 09:00 History 325 mg tablet metoclopramide HCl 5 mg tablet 5 mg PO Q8H 11/03/25 11/03/25 History Allergy/AdvReac Type Severity Reaction Status Date / Time No Known Allergies Allergy Verified 11/03/25 15:16 Family History Grandfather Cancer lung cancer Surgical History History of right knee joint replacement Social History Smoking Status: Current every day smoker tobacco type: cigarettes Tobacco: How many years used: 30 alcohol intake: never substance use type: other details: magic mushrooms for pain ROS ROS Narrative General: Denies fever/chills HENT: Reports he does get headaches sometimes, denies stuffy nose, denies sore throat EYES: Occasionally feels like he gets double vision nothing currently Resp: Does have a morning cough which is not new, shortness of breath mostly on exertion which is also not new Cardiac: Pain in lower chest/upper abdomen GI: Occasional nausea, denies overt bowel changes, reports he feels sick to his stomach intermittently : Denies changes in urination Extremity: Denies swelling MSK: Denies weakness Neuro: Denies any numbness/tingling Heme: Denies any bleeding or bruising Skin: Denies rashes Psychiatric: Upset about his pain Vital Signs Vital Signs Vital Signs: 11/03/25 15:12 11/03/25 15:28 11/03/25 16:11 Temperature 97.6 F L Temperature Source Oral Pulse Rate 73 84 Respiratory Rate 24 H Respiratory Effort Short of Breath Blood Pressure 163/109 H 150/112 H Blood Pressure Mean 127 124 Pulse Ox 99 96 Oxygen Delivery Method Room Air Room Air 11/03/25 17:00 Temperature Temperature Source Pulse Rate 74 Respiratory Rate 18 Respiratory Effort Blood Pressure 155/90 H Blood Pressure Mean 111 Pulse Ox 99 Oxygen Delivery Method Room Air Physical Exam Narrative General: Alert, oriented HEENT: Atraumatic, normocephalic Eyes: Anicteric, normal conjunctiva, extraocular movements grossly intact Neck: Supple Respiratory: Clear to auscultation bilaterally, normal respiratory effort Cardiovascular: Regular rate and rhythm GI: Soft, protuberant, little bit of tenderness on deep palpation epigastric region Extremities: No edema Musculoskeletal: Moving all extremities Neuro: No overt focal neurological deficits Skin: No rashes appreciated Psych: Tired, cooperative but seems to be somewhat reluctant to answer questions Results Lab / Micro Data 11/03/25 15:30 11/03/25 15:30 Labs: Laboratory Results - last 24 hr 11/03/25 15:30: WBC 6.1, RBC 4.88, Hgb 13.9, Hct 38.1 L, MCV 78.1 L, MCH 28.5, MCHC 36.5 H D, RDW Std Deviation 38.2, RDW Coeff of Senia 13.5, Plt Count 257, MPV 9.8, Immature Gran % (Auto) 0.200, Neut % (Auto) 63.9, Lymph % (Auto) 23.4, [place] % (Auto) 10.5 H, Eos % (Auto) 1.3, Baso % (Auto) 0.7, Absolute Neuts (auto) 3.9, Absolute Lymphs (auto) 1.42, Nucleated RBC % 0, Sodium 125 L, Potassium 2.8 L, Chloride 83 L, Carbon Dioxide 27.2, Anion Gap 15, BUN 4, Creatinine 0.66 L, Est GFR (MDRD) Non-Af 110, BUN/Creatinine Ratio 5.9 L, Glucose 102 H, Calcium 9.6, Troponin T High Sens 14 D, NT pro BNP II < 36 11/03/25 17:29: Troponin T Hi Sens 2 Hr 12 Imaging Radiology Impression Chest X-Ray 11/03/25 15:26 IMPRESSION: Probable edema. Reading [facility] Assessment & Plan Assessment/Plan (1) Chest pain: PLAN: Plan #Chest pain -Of note per Dr. Conner's note 10/28/2025 he does not think that the chest and back pain would be due to the mediastinal lymph node enlargement - Unclear if this is GI versus cardiac -Just had EGD with Dr. Morris September 17, 2025 which showed esophageal plaques consistent with candidiasis, gastroparesis, chronic gastritis and chronic duodenitis. - Biopsy of esophagus with acute inflammation and candidiasis. Gastric biopsy with chronic inflammation. Duodenal biopsy suggestive of peptic injury -Will place patient on IV PPI twice daily -Received GI cocktail in the ED -Patient completed course of fluconazole for his esophageal candidiasis -Will obtain echocardiogram, first troponin 14 and repeat of 12 -Depending on symptoms and how hospitalization progresses will depend on need for stress test or further cardiac workup versus further GI workup, higher suspicion this is GI in nature -Does not appear lipase was checked so we will check lipase #Lymphoma - Recent diagnosis of lymphoma last month and mediastinal masses -Presented today for a biopsy of the mass when he developed chest pain -Will need to continue outpatient follow-up - Patient following with Dr. Conner and was seen 10/28/2025, note reviewed # History of esophageal candidiasis - Confirmed on EGD with biopsy in August -Status post 2 weeks of fluconazole - May need to consider repeat GI consultation as above #Hypokalemia - Appears this has been running low -Will replace - Will add scheduled daily potassium as well given consistent loss #Hyponatremia -Widely variable sodiums -125 today, earlier this month was 132 but several months ago was as low as 118 -Previous workup in April suspected SIADH and recommended fluid restriction, certainly possible this is SIADH secondary to lymphoma -Will place fluid restriction place - Can broaden workup if not improving - Pattern recent TSH with was in normal limits #Hx COPD -Does not appear to be on home inhalers -Albuterol as needed -Incentive spirometer #Tobacco use -Advise cessation -Patch ordered #Hypertension - Continue losartan #DVT ppx: Diya Funez MD Time spent in the patient's overall evaluation,decision-making process, review of diagnostic data, adjustment of management, discussion with other providers, nursing nursing and ancillary staff involved in patient's care documentation, 76 Minutes Charges/Coding Visit Charges Inpatient E&M: 98122 Init Hosp L3
[2025-11-03] MEDS: Pantoprazole Sodium 40 MG in 0.9% Normal Saline (100mL MB+) 100 ML 300 MG IV (19:27)
--- OUTSIDE RECORDS SUMMARY | 2025-11-03 19:45 | XMS RPT_ITS | CCD ---
Author Organization [facility] Care Team Providers Care Tire Manager Name Role Phone Dr. OSIRIS BARRETT Attending Un available Tony Altman Attending [facility] PCP, States None Referring Unavailable Dr. Allan Jc DO Emergency Provider Crispin IMPLEMENTATION MANAGER-C, Deborah Primary Care Provider Dr. Meseret Minor DO Admit Provider Dr. Meseret Minor DO Attending Provider Dr. Meseret Minor DO Other Provider Dr. Meseret Minor DO Other Provider Dr. Kevin Singh DO Attending Provider Dr. Meseret Minor DO Attending Provider Dr. Kevin Singh DO Other Provider [phone] [facility] Care Physician, No Primary Referring Provider Un available Dr. Betty Steel MD Attending Provider Crispin IMPLEMENTATION MANAGER-C, Deborah Attending Provider Crispin IMPLEMENTATION MANAGER-C, Deborah Referring Provider Jorgito IMPLEMENTATION MANAGER-C, Anay Attending Provider Jorgito IMPLEMENTATION MANAGER-C, Anay Referring Provider Dr. Juan Rush DO Emergency Provider Dr. Juan Rush DO Attending Provider Jadon IMPLEMENTATION MANAGER-C, Elizabet Attending Provider Jadon IMPLEMENTATION MANAGER-C, Elizabet Referring Provider Jorgito IMPLEMENTATION MANAGER-C, Anay Referring Provider Crispin IMPLEMENTATION MANAGER-C, Deborah Referring Provider [phone] Allan Jc DO Emergency Department Physic stephen Crispin IMPLEMENTATION MANAGER-C, Deborah Primary Care Physician Iván BRYANT, Dr. Carl Admitting Physician Iván BRYANT, Dr. aCrl Nurse Practitioner Samantha BRYANT, Dr. Brown Attending Physician Iván BRYANT, Dr. Carl Attending Physician Samantha BRYANT, Dr. Brown Nurse Practitioner Milvia GALLOWAY, Dr. Hernández Attending Physician Crispin IMPLEMENTATION MANAGER-C, Deborah Attending Physician Jorgito IMPLEMENTATION MANAGER-C, Anay Attending Physician Dr. Juan Rush DO Attending Physician Dr. Juan Rush DO Emergency Department Physician Jadon IMPLEMENTATION MANAGER-C, Elizabet Attending Physician Debbie Sinha Attending Physician Crispin, Deborah Primary Care Unavailable Crispin, Deborah Referring Unavailable Elizabet Diop Attending Unavailable Crispin, Deborah Primary Care Unavailable Crispin, Deborah Referring Unavailable Debbie Garcia Attending Unavailable Crispin, Deborah Referring Unavailable Elizabet Diop Attending Unavailable Crispin, Deborah Primary Care Unavailable Crispin, Deobrah Primary Care Unavailable Debbie Garcia Attending Unavailable [...] Unavailable Crispin, Deborah Primary Care Unavailable Jorgito IMPLEMENTATION MANAGER, Anay Referring Unavailable Jorgito IMPLEMENTATION MANAGER, Anay Attending Unavailable Crispin, Deborah Attending Unavailable [...] Unavailable Crispin, Deborah Primary Care Unavailable Jorgito IMPLEMENTATION MANAGER, Anay Referring Unavailable Jorgito IMPLEMENTATION MANAGER, Anay Attending Unavailable Crispin IMPLEMENTATION MANAGER-C, Deborah Primary Care Physician Jorgito IMPLEMENTATION MANAGER-C, Anay Attending Physician Jorgito IMPLEMENTATION MANAGER-C, Anay Referring Provider [phone] Crispin IMPLEMENTATION MANAGER-C, Deborah Attending Physician Crispin IMPLEMENTATION MANAGER-C, Deborah Referring Provider [phone] Dr. Juan Rush DO Attending Physician [phone] Juan Rush DO Emergency Department Physician Jadon DIAZ-Elizabet Matute Attending Physician Jadon IMPLEMENTATION MANAGER-CElizabet Referring Provider Debbie Sinha Attending Physician [phone] Tito BRYANT Attending Physician [phone] Tiot BRYANT Nurse Practitioner Debbie Sinha Referring Provider [phone] Medications Current Medications Medication Drug Class(es) Dates [...] Start: 07-16-2025 take 1 capsule by mo [facility] once daily Docusate Sodium (Stool Softener) 100 [...] by mouth 30 minutes before mealtime nystatin 261875 unt/ml oral suspension (2 sources) Polyene Antifungal [...] September 15, 2025 12:43pm polyethylene glycol 3350 03387 mg powder for oral solution (7 sources) [...] Adrianne Bey on 09-30-2025 Surgical pathology study [facility] Absolute lymphocyte countOrd ered By: Debbie Garcia on 09-23-2025 Lymphocytes Auto (Unsp spec) [#/Vol] 1.85 10*3/uL 0.83-4.51 [facility] Absolute neutrophil countOrd ered By: Debbie Garcia on 09-23-2025 Neutrophils (Bld) [#/Vol] 5.0 10*3/uL 2.0-7.7 [facility] Anion gap in Serum or Plasma Ordered By: Debbie Garcia on 09-23-2025 Anion gap [Moles/Vol] 13 mmol/L 5- [facility] Automated lymphocyte count a s percentage of total leukocytesOrdered By: Debbie Garcia on 09-23-2025 Lymphocytes/100 WBC Auto (Unsp spec) 23.2 % - [facility] BUN/creatinine ratioOrdered By: Debbie Garcia on 09-23-2025 Urea nitrogen/Creatinine [Mass ratio] 6.9 mg/mg Low - [facility] Basophil percentageOrdered B y: Debbie Garcia on 09-23-2025 Basophils/100 WBC (Bld) 0.9 % 0-1 [facility] Bilirubin, totalOrdered By: Debbie Garcia on 09-23-2025 Bilirubin [Mass/Vol] 0.46 mg/dL 0.00-1.30 [facility] CBC W/Diff, Automatedon 08-28 Absolute Lymph 1.85 X10 3/uL Normal 0.83-4.51 [facility] Comment on above: Performed By: #### L 500.2500, L501.4021, L100.0100 #### [facility] [address] [place], [address] Absolute Neut 5.0 X10 3/uL Normal 2.0-7.7 [facility] Comment on above: Performed By: #### L 500.2500, L501.4021, L100.0100 #### [facility] [address] [place], [address] Basophils/100 WBC (Bld) 0.9 % Normal 0-1 [facility] Comment on above: Performed By: #### L 500.2500, L501.4021, L100.0100 #### [facility] [address] [place], [address] Eosinophils/100 WBC (Bld) 1.3 % Normal 0-5 [facility] Comment on above: Performed By: #### L 500.2500, L501.4021, L100.0100 #### [facility] [address] [place], [address] Erythrocyte distribution width (RBC) [Ratio] 12.6 % Normal 11.6-14.6 [facility] Comment on above: Performed By: #### L 500.2500, L501.4021, L100.0100 #### [facility] [address] [place], [address] Hematocrit (Bld) [Volume fraction] 37.4 % Low 40-54 [facility] Comment on above: Performed By: #### L 500.2500, L501.4021, L100.0100 #### [facility] [address] [place], [address] Hemoglobin (Bld) [Mass/Vol] 13.6 g/dL Normal 13.0-16.5 [facility] Comment on above: Performed By: #### L 500.2500, L501.4021, L100.0100 #### [facility] [address] [place], [address] IG% 0.500 Normal 0.0-0.9 [facility] Comment on above: Result Comment: IG% - Immature Granulocytes (promyelocytes, myelocytes and metamyelocytes) > 1% indicates that a LEFT SHIFT is Present. Performed By: #### L 500.2500, L501.4021, L100.0100 #### [facility] [address] [place], [address] Lymphocytes/100 WBC (Bld) 23.2 % Normal 19-41 [facility] Comment on above: Performed By: #### L 500.2500, L501.4021, L100.0100 #### [facility] [address] [place], [address] MCH (RBC) [Entitic mass] 29.1 pg Normal 27.0-32.0 [facility] Comment on above: Performed By: #### L 500.2500, L501.4021, L100.0100 #### [facility] [address] [place], [address] MCHC (RBC) [Mass/Vol] 36.4 g/dL High 32-36 [facility] Comment on above: Performed By: #### L 500.2500, L501.4021, L100.0100 #### [facility] [address] [place], [address] MCV (RBC) [Entitic vol] 79.9 fL Low 80-94 [facility] Comment on above: Performed By: #### L 500.2500, L501.4021, L100.0100 #### [facility] [address] [place], [address] Monocytes/100 WBC (Bld) 11.4 % High 0-10 [facility] Comment on above: Performed By: #### L 500.2500, L501.4021, L100.0100 #### [facility] [address] [place], [address] Neutrophils/100 WBC (Bld) 62.7 % Normal 47-70 [facility] Comment on above: Performed By: #### L 500.2500, L501.4021, L100.0100 #### [facility] [address] [place], [address] Nucleated RBC (Bld) [#/Vol] 0 10*3/uL Normal 0-5 [facility] Comment on above: Performed By: #### L 500.2500, L501.4021, L100.0100 #### [facility] [address] [place], [address] Platelet mean volume (Bld) [Entitic vol] 9.0 fL Normal 6.2-12.0 [facility] Comment on above: Performed By: #### L 500.2500, L501.4021, L100.0100 #### [facility] [address] [place], [address] Platelets (Bld) [#/Vol] 331 10*3/uL Normal 150-450 [facility] Comment on above: Performed By: #### L 500.2500, L501.4021, L100.0100 #### [facility] [address] [place], [address] RBC (Bld) [#/Vol] 4.68 10*6/uL Normal 4.6-6.2 [facility] Comment on above: Performed By: #### L 500.2500, L501.4021, L100.0100 #### [facility] [address] [place], [address] RDW SD 35.8 fl Normal 35.1-43.9 [facility] Comment on above: Performed By: #### L 500.2500, L501.4021, L100.0100 #### [facility] [address] [place], [address] WBC (Bld) [#/Vol] 8.0 10*3/uL Normal 4.4-11.0 [facility] Comment on above: Performed By: #### L 500.2500, L501.4021, L100.0100 #### [facility] [address] [place], [address] Carbon dioxide, total [Moles /volume] in Central venous bloodOrdered By: Debbie Garcia on 09-23-2025 CO2 [Moles/Vol] 26.9 mmol/L 21.0-32.0 [facility] Chloride assayOrdered By: Francisca Garcia on 09-23-2025 Chloride [Moles/Vol] 88 mmol/L Low 98-108 [facility] Comprehensive Metabolic Prof ilon 09-23-2025 Albumin [Mass/Vol] 4.2 g/dL Normal 3.5-5.0 [facility] Comment on above: Performed By: #### L 500.2500, L501.4021, L100.0100 #### [facility] [address] [place], [address] Albumin/Globulin [Mass ratio] 1.3 {ratio} Normal 0.9-2.4 [facility] Comment on above: Performed By: #### L 500.2500, L501.4021, L100.0100 #### [facility] [address] [place], [address] ALK PHOS 61 U/L Normal 40-129 [facility] Comment on above: Performed By: #### L 500.2500, L501.4021, L100.0100 #### [facility] [address] [place], [address] ALT [Catalytic activity/Vol] 10 U/L Normal <=46 [facility] Comment on above: Performed By: #### L 500.2500, L501.4021, L100.0100 #### [facility] [address] [place], [address] AST [Catalytic activity/Vol] 26 U/L Normal <=37 [facility] Comment on above: Performed By: #### L 500.2500, L501.4021, L100.0100 #### [facility] [address] [place], [address] Bilirubin [Mass/Vol] 0.46 mg/dL Normal 0.00-1.30 [facility] Comment on above: Performed By: #### L 500.2500, L501.4021, L100.0100 #### [facility] [address] [place], [address] BUN/CRE 6.9 RATIO Low 10-20 [facility] Comment on above: Performed By: #### L 500.2500, L501.4021, L100.0100 #### [facility] [address] [place], [address] Calcium [Mass/Vol] 9.4 mg/dL Normal 7.6-11.0 [facility] Comment on above: Performed By: #### L 500.2500, L501.4021, L100.0100 #### [facility] [address] [place], [address] Chloride [Moles/Vol] 88 mmol/L Low 98-108 [facility] Comment on above: Performed By: #### L 500.2500, L501.4021, L100.0100 #### [facility] [address] [place], [address] CO2 [Moles/Vol] 26.9 mmol/L Normal 21.0-32.0 [facility] Comment on above: Performed By: #### L 500.2500, L501.4021, L100.0100 #### [facility] [address] [place], [address] Creatinine [Mass/Vol] 0.79 mg/dL Normal 0.70-1.20 [facility] Comment on above: Performed By: #### L 500.2500, L501.4021, L100.0100 #### [facility] [address] [place], [address] GAP 13 Normal 5-15 [facility] Comment on above: Performed By: #### L 500.2500, L501.4021, L100.0100 #### [facility] [address] [place], [address] GFR/1.73 sq M.predicted among non-blacks MDRD (S/P/Bld) [Vol rate/Area] 104 mL/min/{1.73_m2} Normal >60 [facility] Comment on above: Result Comment: mL/m in/1.73m2 CKD-EPI Creatinine Equation (2020) Performed By: #### L 500.2500, L501.4021, L100.0100 #### [facility] [address] [place], [address] Globulin (S) [Mass/Vol] 3.2 g/dL Normal 2.2-4.2 [facility] Comment on above: Performed By: #### L 500.2500, L501.4021, L100.0100 #### [facility] [address] [place], [address] Glucose [Mass/Vol] 92 mg/dL Normal 70-99 [facility] Comment on above: Performed By: #### L 500.2500, L501.4021, L100.0100 #### [facility] [address] [place], [address] Potassium [Moles/Vol] 3.2 mmol/L Low 3.3-5.1 [facility] Comment on above: Performed By: #### L 500.2500, L501.4021, L100.0100 #### [facility] [address] [place], [address] Sodium [Moles/Vol] 128 mmol/L Low 133-145 [facility] Comment on above: Performed By: #### L 500.2500, L501.4021, L100.0100 #### [facility] [address] [place], [address] T PROT 7.4 g/dL Normal 5.9-8.4 [facility] Comment on above: Performed By: #### L 500.2500, L501.4021, L100.0100 #### [facility] [address] [place], [address] Urea nitrogen [Mass/Vol] 5 mg/dL Normal 4-19 [facility] Comment on above: Performed By: #### L 500.2500, L501.4021, L100.0100 #### [facility] [address] [place], [address] Eosinophil percentageOrdered By: Debbie Garcia on 09-23-2025 Eosinophils/100 WBC (Bld) 1.3 % 0-5 [facility] Erythrocyte distribution wid th ratioOrdered By: Debbie Garcia on 09-23-2025 Erythrocyte distribution width (RBC) [Ratio] 12.6 % 11.6-14.6 [facility] Erythrocyte distribution wid th standard deviationOrdered By: Debbie Garcia on 09-23-2025 Erythrocyte distribution width (RBC) [Ratio] 35.8 fl 35.1-43.9 [facility] Gastroenterology Visit Repor ton 09-23-2025 Gastroenterology Visit Report [facility] Gastroenterology [address] [place] [address] OFFICE VISIT Date of Service: 09/23/25 MR#: [id number] Acct: [id number] Name: LYNNETTE GONG Rep #: [id number] : 1970 Provider: LANA Adan Age/Sex: 55/M Location: [facility] Status: Signed Intake Vital Signs 08/14/25 09:48 [...] and comfortable Nutritional Appearance: obese Orientation: alert HENWI Head: normal to inspection Eyes General: appearance [...] these medica (more content not included)... Normal [facility] Glomerular filtration rate ( GFR) estimation/1.73 sq m using serum, plasma, or whole bOrdered By: Debbie Garcia on 09-23-2025 GFR/1.73 sq M.predicted among non-blacks MDRD (S/P/Bld) [Vol rate/Area] 104 mL/min/{1.73_m2} >60 [facility] Comment on above: mL/min/1.73m2 CKD-EP I Creatinine Equation (2020) Hematocrit Auto (Bld) [Volum e fraction]Ordered By: Debbie Garcia on 09-23-2025 Hematocrit (Bld) [Volume fraction] 37.4 % Low 40-54 [facility] Hemoglobin measurementOrdere d By: Debbie Garcia on 09-23-2025 Hemoglobin (Bld) [Mass/Vol] 13.6 g/dL 13.0-16.5 [facility] Immature granulocytes/100 WB C Auto (Bld)Ordered By: Debbie Garcia on 09-23-2025 Immature granulocytes/100 WBC (Bld) 0.500 % 0.0-0.9 [facility] Comment on above: IG% - Immature Granu locytes (promyelocytes, myelocytes and metamyelocytes) > 1% indicates that a LEFT SHIFT is Present. Laboratory - Chemistry and C hemistry - challengeOrdered By: Debbie Garcia on 09-23-2025 AST [Catalytic activity/Vol] 26 U/L <38 [facility] MCV (mean corpuscular volume ) determinationOrdered By: Debbie Garcia on 09-23-2025 MCV (RBC) [Entitic vol] 79.9 fL Low 80-94 [facility] Mean corpuscular hemoglobin (MCH) determinationOrdered By: Debbie Garcia on 09-23-2025 MCH (RBC) [Entitic mass] 29.1 pg 27.0-32.0 [facility] Mean corpuscular hemoglobin concentration (MCHC) determinationOrdered By: Debbie Garcia on 09-23-2025 MCHC (RBC) [Mass/Vol] 36.4 g/dL High 32-36 [facility] Mean platelet volume determi nationOrdered By: Debbie Garcia on 09-23-2025 Platelet mean volume (Bld) [Entitic vol] 9.0 fL 6.2-12.0 [facility] Monocyte percentageOrdered B y: Debbie Garcia on 09-23-2025 Monocytes/100 WBC (Bld) 11.4 % High 0-10 [facility] Neutrophil percentageOrdered By: Debbie Garcia on 09-23-2025 Neutrophils/100 WBC (Bld) 62.7 % 47-70 [facility] Nucleated red blood cell per centageOrdered By: Debbie Garcia on 09-23-2025 Nucleated RBC/100 WBC (Bld) [Ratio] 0 % 0-5 [facility] Platelet countOrdered By: Francisca Garcia on 09-23-2025 Platelets (Bld) [#/Vol] 331 10*3/uL 150-450 [facility] Potassium measurement (mass/ volume)Ordered By: Debbie Garcia on 09-23-2025 Potassium (Unsp spec) [Mass/Vol] 3.2 mmol/L Low 3.3-5.1 [facility] RBC Auto (Bld) [#/Vol]Ordere d By: Debbie Garcia on 09-23-2025 RBC (Bld) [#/Vol] 4.68 10*6/uL 4.6-6.2 [facility] Serum creatinine measurement (mass/volume)Ordered By: Debbie Garcia on 09-23-2025 Creatinine [Mass/Vol] 0.79 mg/dL 0.70-1.20 [facility] Serum globulin measurementOr dered By: Debbie Garcia on 09-23-2025 Globulin (S) [Mass/Vol] 3.2 g/dL 2.2-4.2 [facility] Serum glucose measurement (m ass/volume)Ordered By: Debbie Garcia on 09-23-2025 Glucose [Mass/Vol] 92 mg/dL 70-99 [facility] Serum or plasma alanine sanchez otransferase (ALT) measurementOrdered By: Debbie Garcia on 09-23-2025 ALT [Catalytic activity/Vol] 10 U/L <47 [facility] Serum or plasma albumin pepe urement (mass/volume)Ordered By: Debbie Garcia on 09-23-2025 Albumin [Mass/Vol] 4.2 g/dL 3.5-5.0 [facility] Serum or plasma albumin/glob ulin mass ratioOrdered By: Debbie Garcia on 09-23-2025 Albumin/Globulin [Mass ratio] 1.3 {ratio} 0.9-2.4 [facility] Serum or plasma alkaline logan sphatase measurementOrdered By: Debbie Garcia on 09-23-2025 ALP [Catalytic activity/Vol] 61 U/L 40-129 [facility] Serum or plasma calcium pepe urement (mass/volume)Ordered By: Debbie Garcia on 09-23-2025 Calcium [Mass/Vol] 9.4 mg/dL 7.6-11.0 [facility] Serum or plasma urea nitroge n measurement (mass/volume)Ordered By: Debbie Garcia on 09-23-2025 Urea nitrogen [Mass/Vol] 5 mg/dL 4-19 [facility] Sodium levelOrdered By: Kathie Garcia on 09-23-2025 Sodium [Moles/Vol] 128 mmol/L Low 133-145 [facility] Total proteinOrdered By: Suellen Garcia on 09-23-2025 Protein [Mass/Vol] 7.4 g/dL 5.9-8.4 [facility] White blood cell (WBC) count Ordered By: Debbie Garcia on 09-23-2025 WBC (Bld) [#/Vol] 8.0 10*3/uL 4.4-11.0 [facility] EGD Reporton 09-17-2025 EGD Report [facility] Medical Records Department [address] [place] [address] EGD Report MR#: [id number] Acct: [id number] Name: LYNNETTE GONG Rep #: [id number] : 1970 55 From: Tito Morris DO PCP: UMAIR Taveras Status:REG [facility] Patient Name: Lynnette Gong Procedure Date: 09/17/2025 [...] Hemoglobin A1c Procedure Code(s): --- Professional --- 66234, Small intestinal endoscopy, enteroscopy beyond second portion of duodenum, not including ileum; with biopsy, single or multiple CPT copyright 2021 [employer]. All rights reserved. The codes documented in this report are preliminary and upon land inspector review may be revised to meet current compliance requirements. Tito Morris DO 09/17/2025 2:06:55 PM This report has been signed electronically (more content not included)... Normal [facility] Immunohistochemical Stainson 09-17-2025 Immunohistochemical Stains Patient Age/Sex Location Account Attending Physician LYNNETTE GONG 55/M EN [id number] Tito Morris DO Specimen: [id number] Received: 09/17/25 Status: DONAVON Osuna Num: [id number] Spec Type: EGD BIOPSY Mamta Dr: Tito [...] developed and their performance characteristics determined by [facility]. They may not have been cleared or approved by the U.S. Food and Drug Administration. The FDA has determined that such clearance or approval is not necessary. The above immunohistochemical markers and/or special???stains have been reviewed by the Pathologist. GROSS DESCRIPTION A. Received in fixative is one container labeled with the patient's name and designated Random esophagus biopsy. The specimen consists of multiple irregular [...] labeled with the patient's name and designated Duodenum biopsy. The specimen consists of two irregular fragments of casillas tissue, each measuring 0.4 cm. The specimen is totally submitted in one cassette. CT 09/17/2025 Patient Age/Sex Location Account Attending Physician LYNNETTE GONG/Tawny EN [id number] Tito Morris DO CPT:72958n2,54687 Patient Age/Sex Location Account Attending Physician LYNNETTE GONG/Tawny EN [id number] Tito Morris DO Signed (signature on file) Dr. Adrianne Bey MD 09/30/25 1357 Normal [facility] Comment on above: Performed By: #### P [facility] ####[facility] [id number] [facility] [place], [address] MR/OP.PROVATon 09-17-2025 [facility] Medical Records Department [address] [facility] [place] [address] Provation Physician Letter MR#: [id number] Acct: [id number] Name: LYNNETTE GONG Rep #: [id number] : 1970 55 From: Tito Morris DO PCP: UMAIR Taveras Status:[facility] – [place] 09/17/2025 Umair Taveras Re : Upper GI [...] This report has been signed electronically. 09/17/25 4378 Date Tito Ziegler Signature: Date (if indicated) CC: IMPLEMENTATION MANAGER-Juju Morris DO Date Dictated: 09/17/25 1332 Date Transcribed: Customer Service Administrator: RF Signed [facility] MR/POSTOP.ANE 09-17-2025 MR/POSTOP.[facility] Medical Records Department [address] [place] [address] Anesthesia Postop Eval I 09/17/25 1359 MR#: [id number] Acct: [id number] Name: LYNNETTE GONG Rep #: [id number] : 1970 55 From: Jean Jc PCP: UMAIR Taveras Status:REG SDC Y Race: C Location: [place] [address] Anesthesia: Postop Eval I Current Vital Signs [...] Date Jean Mendoza Signature: Date CC: Signed [facility] MR/JNYZZTJO6re 09-17-2025 MR/POSTOPAN2 [facility] Medical Records Department [address] [place] [address] Anesthesia Postop Eval II 09/17/25 1422 MR#: [id number] Acct: [id number] Name: LYNNETTE GONG Rep #: [id number] : 1970 55 From: Mina Calle MD PCP: UMAIR Taveras Status:REG SDC Y Race: C Location: [facility] Anesthesia Postop Eval I Sum Postop Eval [...] Calle MD Cosigner Signature: Date CC: Signed [facility] MR/Gina 09-15-2025 MR/[facility] Medical Records Department [address] [place] [address] PAT - Anesthesia 09/15/25 1404 MR#: [id number] Acct: [id number] Name: LYNNETTE GONG Rep #: [id number] : 1970 55 From: Mina Calle MD PCP: UMAIR Taveras Status:PRE SDC Y Race: C Location: [place] Pre-Assessment Diagnosis/Proposed Procedure Planned Operative Procedure(s): EGD Anesthesia History Anesthesia History - supervisor belt and link assembly: Anesthesia History - supervisor belt and link assembly Hx Hospitalization Yes: LOW SODIUM 06/202509/15/25 13:45 [...] take am of surgery PONV PONV - supervisor belt and link assembly: PONV - supervisor belt and link assembly Female No 09/15/25 13:45 HX of Motion Sickness No 09/15/25 13:45 HX of N/V After Surgery No 09/15/25 13:45 Non-Smoker No 09/15/25 13:45 Duration of Surgery greater No 09/15/25 13:45 than 60 minutes Number of Risk Factors PONV Score Height Weight Height Weight: Anesthesia: Height Weight Height 5 ft 7 in 08/14/25 09:48 Respiratory Assessment Respiratory Assessment - supervisor belt and link assembly: Respiratory Tract Infection Hx - supervisor belt and link assembly Hx Respiratory Tract Infection No 09/15/25 13:45 STOP Sleep Apnea STOP Sleep Apnea - supervisor belt and link assembly: STOP Sleep Apnea - supervisor belt and link assembly Hx Hypertension Yes: STILL WORKING ON, 09/15/25 [...] Tobacco Use History Tobacco Use History - supervisor belt and link assembly: Tobacco Use History - supervisor belt and link assembly Tobacco Use Smoking Status Current every day smoker 09/15/25 13:45 Hx Tobacco Use Yes 09/15/25 13:45 Years Smoking Packs Smoked per Day Smoking Cessation Date was within the last 15 years Hx Smoking Cessation Date Hx Smoking Cessation Counseling Hematologic Medial History Hematologic Hx - supervisor belt and link assembly: Hematologic Medical Hx - tutoring assistant Hx of Blood Transfusion No 09/15/25 13:45 [...] confused, unrespo /Reproduction History /Reproductive History - supervisor belt and link assembly: /Reproductive Hx- supervisor belt and link assembly Hx Now No 09/15/25 13:45 Gestational Age [...] PO Q (more content not included)... Normal [facility] Gastroenterology Visit Repor ton 08-26-2025 Gastroenterology Visit Report [facility] Gastroenterology [address] [place] [address] OFFICE VISIT Date of Service: 08/26/25 MR#: [id number] Acct: [id number] Name: LYNNETTE GONG Rep #: [id number] : 1970 Provider: LANA Adan Age/Sex: 55/M Location: [facility] Status: Signed Intake Vital Signs 08/11/25 14:40 08/14/25 09:48 Height 5 ft 7 in 5 ft 7 in Weight: 304 lb 4 oz BMI 47.6 BP 144/87 H Respiration 18 Pulse 82 Temp 98.8 F Pulse Oximetry (%) 93 Oxygen Delivery Method room air Intake Visit Reasons: SCHEDULE FU PER ANANYA Chief Complaint: Nausea and vomiting Aviation Tactical Readiness Officer Required: No Accompanied by: Self Is patient [...] tablet 5 mg PO QAC #30 tabs 08/11/25 09 Rx (Reglan) pantoprazole 40 mg tablet,delayed 40 mg PO QDAY #90 tabs 08/11/25 0 08/26/25 [facility] History of CVA (cerebrovascular [...] to pharmac (more content not included)... Normal [facility] L509.6001on 08-14-2025 CORTISOL 35.80 ug/dL High 6.02-18.40 [facility] Comment on above: Order Comment: 60M Performed By: #### L 509.6001 ####[facility] [address] [place], [address] CORTISOL 29.20 ug/dL High 6.02-18.40 [facility] Comment on above: Order Comment: 30M Performed By: #### L 509.6001 ####[facility] [address] [place], [address] CORTISOL 20.60 ug/dL High 6.02-18.40 [facility] Comment on above: Order Comment: B Performed By: #### L 500.2500, L501.4021, L100.0100 #### [facility] Laboratory [address] [place], [address] Serum or plasma cortisol cem surement (mass/volume)Ordered By: Elizabet Diop on 08-14-2025 Cortisol [Mass/Vol] 35.80 ug/dL High 6.02-18.40 [facility] Gastroenterology Visit Repor ton 08-11-2025 Gastroenterology Visit Report [facility] Gastroenterology [address] [place] [address] OFFICE VISIT Date of Service: 08/11/25 MR#: [id number] Acct: [id number] Name: LYNNETTE GONG Rep #: [id number] : 1970 Provider: UMAIR mccray Age/Sex: 54/M Location: [facility] Status: Signed Intake Vital Signs 07/17/25 11:52 [...] Reasons: 1 M FU Chief Complaint: nausea 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 Normal [facility] Anion gap in Serum or Plasma Ordered By: Deborah Roa on 08-04-2025 Anion gap [Moles/Vol] 15 mmol/L - [facility] BUN/creatinine ratioOrdered By: Deborah Roa on 08-04-2025 Urea nitrogen/Creatinine [Mass ratio] 11.6 mg/mg - [facility] Basic Metabolic Profile (BMP )on 08-04-2025 BUN/CRE 11.6 RATIO Normal - [facility] Comment on above: Performed By: #### L 500.2500, L501.4021, L100.0100 #### [facility] [address] [place], [address] Calcium [Mass/Vol] 9.3 mg/dL Normal 7.6-11.0 [facility] Comment on above: Performed By: #### L 500.2500, L501.4021, L100.0100 #### [facility] [address] [place], [address] Chloride [Moles/Vol] 90 mmol/L Low 98-108 [facility] Comment on above: Performed By: #### L 500.2500, L501.4021, L100.0100 #### [facility] [address] [place], [address] CO2 [Moles/Vol] 22.5 mmol/L Normal 21.0-32.0 [facility] Comment on above: Performed By: #### L 500.2500, L501.4021, L100.0100 #### [facility] [address] [place], [address] Creatinine [Mass/Vol] 0.80 mg/dL Normal 0.70-1.20 [facility] Comment on above: Performed By: #### L 500.2500, L501.4021, L100.0100 #### [facility] [address] [place], [address] GAP 15 Normal 5-15 [facility] Comment on above: Performed By: #### L 500.2500, L501.4021, L100.0100 #### [facility] [address] [place], [address] GFR/1.73 sq M.predicted among non-blacks MDRD (S/P/Bld) [Vol rate/Area] 104 mL/min/{1.73_m2} Normal >60 [facility] Comment on above: Result Comment: mL/m in/1.73m2 CKD-EPI Creatinine Equation (2020) Performed By: #### L 500.2500, L501.4021, L100.0100 #### [facility] [address] [place], [address] Glucose [Mass/Vol] 96 mg/dL Normal 70-99 [facility] Comment on above: Performed By: #### L 500.2500, L501.4021, L100.0100 #### [facility] [address] [place], [address] Potassium [Moles/Vol] 4.2 mmol/L Normal 3.3-5.1 [facility] Comment on above: Performed By: #### L 500.2500, L501.4021, L100.0100 #### [facility] [address] [place], [address] Sodium [Moles/Vol] 128 mmol/L Low 133-145 [facility] Comment on above: Performed By: #### L 500.2500, L501.4021, L100.0100 #### [facility] [address] [place], [address] Urea nitrogen [Mass/Vol] 9 mg/dL Normal 4-19 [facility] Comment on above: Performed By: #### L 500.2500, L501.4021, L100.0100 #### [facility] [address] [place], [address] Carbon dioxide, total [Moles /volume] in Central venous bloodOrdered By: Deborah Roa on 08-04-2025 CO2 [Moles/Vol] 22.5 mmol/L 21.0-32.0 [facility] Chloride assayOrdered By: Ra jacoby Roa on 08-04-2025 Chloride [Moles/Vol] 90 mmol/L Low 98-108 [facility] Glomerular filtration rate ( GFR) estimation/1.73 sq m using serum, plasma, or whole bOrdered By: Deborah Roa on 08-04-2025 GFR/1.73 sq M.predicted among non-blacks MDRD (S/P/Bld) [Vol rate/Area] 104 mL/min/{1.73_m2} >60 [facility] Comment on above: mL/min/1.73m2 CKD-EP I Creatinine Equation (2020) Osmolality urOrdered By: Cecilio Roa on 08-04-2025 Osmolality (U) [Osmolality] 480 mOsm/KG >50 [facility] Comment on above: Normal Urine Referen ce Ranges Random: 50 - 1200 mOsm/kg H20 depending on fluid intake Random: >850 mOsm/kg after 12 hour fluid restriction 24 hour: ~300 - 900 mOsm/kg H2O Osmolality, Urineon 08-04-20 25 OSMOLALITY,UR 480 mOsm/KG Normal [facility] Comment on above: Result Comment: Normal Urine Reference Ranges Random: 50 - 1200 mOsm/kg H20 depending on fluid intake Random: >850 mOsm/kg after 12 hour fluid restriction 24 hour: 300 - 900 mOsm/kg H2O Performed By: #### L 500.2500, L501.4021, L100.0100 #### [facility] [address] [place], [place], [address] Potassium measurement (mass/ volume)Ordered By: Deborah Roa on 08-04-2025 Potassium (Unsp spec) [Mass/Vol] 4.2 mmol/L 3.3-5.1 [facility] Serum creatinine measurement (mass/volume)Ordered By: Deborah Roa on 08-04-2025 Creatinine [Mass/Vol] 0.80 mg/dL 0.70-1.20 [facility] Serum glucose measurement (m ass/volume)Ordered By: Deborah Roa on 08-04-2025 Glucose [Mass/Vol] 96 mg/dL 70-99 [facility] Serum or plasma calcium pepe urement (mass/volume)Ordered By: Deborah Roa on 08-04-2025 Calcium [Mass/Vol] 9.3 mg/dL 7.6-11.0 [facility] Serum or plasma urea nitroge n measurement (mass/volume)Ordered By: Deborah Roa on 08-04-2025 Urea nitrogen [Mass/Vol] 9 mg/dL 4-19 [facility] Sodium levelOrdered By: Gale Roa on 08-04-2025 Sodium [Moles/Vol] 128 mmol/L Low 133-145 [facility] Urine sodium measurement (mo les/volume)Ordered By: Deborah Roa on 08-04-2025 Sodium (U) [Moles/Vol] 48 mmol/L Normal Not Establ. [facility] Comment on above: Performed By: #### L 500.2500, L501.4021, L100.0100 #### [facility] [address] [place], [place], [address] Anion gap in Serum or Plasma Ordered By: Elizabet Diop on 07-17-2025 Anion gap [Moles/Vol] 14 mmol/L 5- [facility] BUN/creatinine ratioOrdered By: Elizabet Diop on 07-17-2025 Urea nitrogen/Creatinine [Mass ratio] 4.3 mg/mg Low - [facility] Basic Metabolic Profile (BMP )on 07-17-2025 BUN/CRE 4.3 RATIO Low - [facility] Comment on above: Performed By: #### L 501.9520, L500.2500, L509.6001 ####[facility] [address] [place], [address] GAP 14 Normal - [facility] Comment on above: Performed By: #### L 501.9520, L500.2500, L509.6001 ####[facility] [address] [place], [address] Potassium [Moles/Vol] 3.8 mmol/L Normal 3.3-5.1 [facility] Comment on above: Performed By: #### L 501.9520, L500.2500, L509.6001 ####[facility] [address] [place], [address] Carbon dioxide, total [Moles /volume] in Central venous bloodOrdered By: Elizabet Diop on 07-17-2025 CO2 [Moles/Vol] 22.7 mmol/L Normal 21.0-32.0 [facility] Comment on above: Performed By: #### L 501.9520, L500.2500, L509.6001 ####[facility] [address] [place], [address] Chloride assayOrdered By: Ortiz Diop on 07-17-2025 Chloride [Moles/Vol] 86 mmol/L Low 98-108 [facility] Comment on above: Performed By: #### L 501.9520, L500.2500, L509.6001 ####[facility] [address] [place], [address] Gastroenterology Visit Repor ton 07-17-2025 Gastroenterology Visit Report [facility] Gastroenterology [address] [place] [address] OFFICE VISIT Date of Service: 07/17/25 MR#: [id number] Acct: [id number] Name: LYNNETTE GONG Rep #: [id number] : 1970 Provider: UMAIR mccray Age/Sex: 54/M Location: [facility] Status: Signed Intake Vital Signs 06/23/25 15:12 [...] weight lock (more content not included)... Normal [facility] Glomerular filtration rate ( GFR) estimation/1.73 sq m using serum, plasma, or whole bOrdered By: Elizabet Diop on 07-17-2025 GFR/1.73 sq M.predicted among non-blacks MDRD (S/P/Bld) [Vol rate/Area] 104 mL/min/{1.73_m2} Normal >60 [facility] Comment on above: mL/min/1.73m2 CKD-EP I Creatinine Equation (2020) Result Comment: mL/m in/1.73m2 CKD-EPI Creatinine Equation (2020) Performed By: #### L 501.9520, L500.2500, L509.6001 ####[facility] [address] [place], [address] L509.6001on 07-17-2025 CORTISOL 6.83 ug/dL Normal 6.02-18.40 [facility] Comment on above: Performed By: #### L 500.2500, L501.4021, L100.0100 #### [facility] [address] [place], [address] Potassium measurement (mass/ volume)Ordered By: Elizabet Diop on 07-17-2025 Potassium (Unsp spec) [Mass/Vol] 3.8 mmol/L 3.3-5.1 [facility] Serum creatinine measurement (mass/volume)Ordered By: Elizabet Diop on 07-17-2025 Creatinine [Mass/Vol] 0.82 mg/dL Normal 0.70-1.20 [facility] Comment on above: Performed By: #### L 501.9520, L500.2500, L509.6001 ####[facility] [address] [place], [address] Serum glucose measurement (m ass/volume)Ordered By: Elizabet Diop on 07-17-2025 Glucose [Mass/Vol] 99 mg/dL Normal 70-99 [facility] Comment on above: Performed By: #### L 501.9520, L500.2500, L509.6001 ####[facility] [address] [place], [address] Serum or plasma calcium pepe urement (mass/volume)Ordered By: Elizabet Diop on 07-17-2025 Calcium [Mass/Vol] 9.2 mg/dL Normal 7.6-11.0 [facility] Comment on above: Performed By: #### L 501.9520, L500.2500, L509.6001 ####[facility] [address] [place], [address] Serum or plasma cortisol cem surement (mass/volume)Ordered By: Elizabet Diop on 07-17-2025 Cortisol [Mass/Vol] 6.83 ug/dL 6.02-18.40 [facility] Serum or plasma urea nitroge n measurement (mass/volume)Ordered By: Elizabet Diop on 07-17-2025 Urea nitrogen [Mass/Vol] 4 mg/dL Normal 4-19 [facility] Comment on above: Performed By: #### L 501.9520, L500.2500, L509.6001 ####[facility] [address] [place], [address] Sodium levelOrdered By: Ananya Diop on 07-17-2025 Sodium [Moles/Vol] 123 mmol/L Low 133-145 [facility] Comment on above: Performed By: #### L 501.9520, L500.2500, L509.6001 ####[facility] [address] [place], [address] TSH DL <= 0.005 mIU/L QnOrde red By: Elizabet Diop on 07-17-2025 TSH Qn 1.670 uIU/mL 0.300-4.200 [facility] Thyroid Stim Hormone (TSH)on 07-17-2025 TSH 1.670 uIU/mL Normal 0.300-4.200 [facility] Comment on above: Performed By: #### L 501.9520, L500.2500, L509.6001 ####[facility] [address] [place], [address] Abdomen Single Viewon 2024 Abdomen Single View [facility] Imaging Services [address] [place] [address] Abdomen Single View MR#: [id number] Acct: [id number] Name: LYNNETTE GONG Rep #: [id number] : 1970 M 54 From: Rodri Pagan MD PCP: UMAIR Taveras Status: REG ER Study: Abdomen Single View Date of Exam: 06/23/25 Exam# [id number] Ordering Dr: Juan Rush DO PROCEDURE: ABDOMEN [...] the rectum may indicate constipation.. Reading Location: [id number] CC: IMPLEMENTATION MANAGER-C Deborah Roa; Dr. Juan Rush DO Customer Service Administrator: Signed Normal [facility] Emergency Department Summary on 06-23-2025 Emergency Department Summary [facility] Medical Records Department [address] [place] [address] Emergency Department Summary 06/23/25 MR#: [id number] Acct: [id number] Name: LYNNETTE GONG Rep #: [id number] : 1970 54 From: Juan Salinas PCP: UMAIR Taveras Status:DEP ER Location: ED HPI HPI - GI History of Present Illness Chief Complaint: Constipation Informant: patient Narrative Narrative: Presents for constipation. Typically has normal bowel movement for last month's change. Igwj-dul-jcplcto stool softeners and MiraLAX. Saw his primary [...] until b (more content not included)... Normal [facility] Abdomen Single Viewon 2024 Abdomen Single View [facility] Imaging Services [address] [place], [place] [address] Abdomen Single View MR#: [id number] Acct: [id number] Name: LYNNETTE GONG Rep #: [id number] : 1970 M 54 From: Lynnette Rush MD PCP: UAMIR Taveras Status: REG CLI Study: Abdomen Single View Date of Exam: 06/17/25 Exam# [id number] Ordering Dr: Deborah Roa IMPLEMENTATION MANAGERLaurel EXAM: XR Abdomen, 1 View CLINICAL INDICATION: CONSTIPATION, MELENA, NAUSEA TECHNIQUE: Frontal supine view of the abdomen/pelvis. COMPARISON: No relevant prior studies available. FINDINGS: GASTROINTESTINAL TRACT: Fecal retention in the colon consistent with constipation. No dilation. BONES/JOINTS: Unremarkable. No acute fracture. RAD/Abdomen Single View IMPRESSION: Fecal retention in the colon consistent with constipation. Reading Location: [facility] CC: IMPLEMENTATION MANAGER-C Deborah Roa Customer Service Administrator: Signed Normal [facility] Absolute lymphocyte countOrd ered By: Deborah Roa on 06-17-2025 Lymphocytes Auto (Unsp spec) [#/Vol] 1.90 10*3/uL 0.83-4.51 [facility] Absolute neutrophil countOrd ered By: Deborah Roa on 06-17-2025 Neutrophils (Bld) [#/Vol] 8.0 10*3/uL High 2.0-7.7 [facility] Anion gap in Serum or Plasma Ordered By: Deborah Roa on 06-17-2025 Anion gap [Moles/Vol] 13 mmol/L 5-15 [facility] Automated lymphocyte count a s percentage of total leukocytesOrdered By: Deborah Stephensongar on 06-17-2025 Lymphocytes/100 WBC Auto (Unsp spec) 17.1 % Low 19-41 [facility] BUN/creatinine ratioOrdered By: Deborah Roa on 06-17-2025 Urea nitrogen/Creatinine [Mass ratio] 10.7 mg/mg 10- [facility] Basic Metabolic Profile (BMP )on 06-17-2025 BUN/CRE 10.7 RATIO Normal 10-20 [facility] Comment on above: Performed By: #### L 500.2500, L501.4021, L100.0100 #### [facility] [address] [place], [address] Calcium [Mass/Vol] 9.7 mg/dL Normal 7.6-11.0 [facility] Comment on above: Performed By: #### L 500.2500, L501.4021, L100.0100 #### [facility] [address] [place], [address] Chloride [Moles/Vol] 89 mmol/L Low 98-108 [facility] Comment on above: Performed By: #### L 500.2500, L501.4021, L100.0100 #### [facility] [address] [place], [address] CO2 [Moles/Vol] 21.8 mmol/L Normal 21.0-32.0 [facility] Comment on above: Performed By: #### L 500.2500, L501.4021, L100.0100 #### [facility] [address] [place], [address] Creatinine [Mass/Vol] 0.91 mg/dL Normal 0.70-1.20 [facility] Comment on above: Performed By: #### L 500.2500, L501.4021, L100.0100 #### [facility] [address] [place], [address] GAP 13 Normal 5-15 [facility] Comment on above: Performed By: #### L 500.2500, L501.4021, L100.0100 #### [facility] [address] [place], [address] GFR/1.73 sq M.predicted among non-blacks MDRD (S/P/Bld) [Vol rate/Area] 100 mL/min/{1.73_m2} Normal >60 [facility] Comment on above: Result Comment: mL/m in/1.73m2 CKD-EPI Creatinine Equation (2020) Performed By: #### L 500.2500, L501.4021, L100.0100 #### [facility] [address] [place], [address] Glucose [Mass/Vol] 106 mg/dL High 70-99 [facility] Comment on above: Performed By: #### L 500.2500, L501.4021, L100.0100 #### [facility] [address] [place], [address] Potassium [Moles/Vol] 4.6 mmol/L Normal 3.3-5.1 [facility] Comment on above: Performed By: #### L 500.2500, L501.4021, L100.0100 #### [facility] [address] [place], [address] Sodium [Moles/Vol] 124 mmol/L Low 133-145 [facility] Comment on above: Performed By: #### L 500.2500, L501.4021, L100.0100 #### [facility] [address] [place], [address] Urea nitrogen [Mass/Vol] 10 mg/dL Normal 4-19 [facility] Comment on above: Performed By: #### L 500.2500, L501.4021, L100.0100 #### [facility] [address] [place], [address] Basophil percentageOrdered B y: Deborah Roa on 06-17-2025 Basophils/100 WBC (Bld) 0.5 % 0-1 [facility] CBC W/Diff, Automatedon 05-28 Absolute Lymph 1.90 X10 3/uL Normal 0.83-4.51 [facility] Comment on above: Performed By: #### L 500.2500, L501.4021, L100.0100 #### [facility] [address] [place], [address] Absolute Neut 8.0 X10 3/uL High 2.0-7.7 [facility] Comment on above: Performed By: #### L 500.2500, L501.4021, L100.0100 #### [facility] [address] [place], [address] Basophils/100 WBC (Bld) 0.5 % Normal 0-1 [facility] Comment on above: Performed By: #### L 500.2500, L501.4021, L100.0100 #### [facility] [facility] [address] [place], [address] Eosinophils/100 WBC (Bld) 0.2 % Normal 0-5 [facility] Comment on above: Performed By: #### L 500.2500, L501.4021, L100.0100 #### [facility] [address] [place], [address] Erythrocyte distribution width (RBC) [Ratio] 13.0 % Normal 11.6-14.6 [facility] Comment on above: Performed By: #### L 500.2500, L501.4021, L100.0100 #### [facility] [address] [place], [address] Hematocrit (Bld) [Volume fraction] 39.4 % Low 40-54 [facility] Comment on above: Performed By: #### L 500.2500, L501.4021, L100.0100 #### [facility] [address] [place], [address] Hemoglobin (Bld) [Mass/Vol] 13.7 g/dL Normal 13.0-16.5 [facility] Comment on above: Performed By: #### L 500.2500, L501.4021, L100.0100 #### [facility] [address] [place], [address] IG% 0.700 Normal 0.0-0.9 [facility] Comment on above: Result Comment: IG% - Immature Granulocytes (promyelocytes, myelocytes and metamyelocytes) > 1% indicates that a LEFT SHIFT is Present. Performed By: #### L 500.2500, L501.4021, L100.0100 #### [facility] [address] [place], [address] Lymphocytes/100 WBC (Bld) 17.1 % Low 19-41 [facility] Comment on above: Performed By: #### L 500.2500, L501.4021, L100.0100 #### [facility] [address] [place], [address] MCH (RBC) [Entitic mass] 28.8 pg Normal 27.0-32.0 [facility] Comment on above: Performed By: #### L 500.2500, L501.4021, L100.0100 #### [facility] [address] [place], [address] MCHC (RBC) [Mass/Vol] 34.8 g/dL Normal 32-36 [facility] Comment on above: Performed By: #### L 500.2500, L501.4021, L100.0100 #### [facility] [address] [place], [address] MCV (RBC) [Entitic vol] 82.8 fL Normal 80-94 [facility] Comment on above: Performed By: #### L 500.2500, L501.4021, L100.0100 #### [facility] [address] [place], [address] Monocytes/100 WBC (Bld) 9.4 % Normal 0-10 [facility] Comment on above: Performed By: #### L 500.2500, L501.4021, L100.0100 #### [facility] [address] [place], [address] Neutrophils/100 WBC (Bld) 72.1 % High 47-70 [facility] Comment on above: Performed By: #### L 500.2500, L501.4021, L100.0100 #### [facility] [address] [place], [address] Nucleated RBC (Bld) [#/Vol] 0 10*3/uL Normal 0-5 [facility] Comment on above: Performed By: #### L 500.2500, L501.4021, L100.0100 #### [facility] [address] [place], [address] Platelet mean volume (Bld) [Entitic vol] 9.5 fL Normal 6.2-12.0 [facility] Comment on above: Performed By: #### L 500.2500, L501.4021, L100.0100 #### [facility] [address] [place], [address] Platelets (Bld) [#/Vol] 384 10*3/uL Normal 150-450 [facility] Comment on above: Performed By: #### L 500.2500, L501.4021, L100.0100 #### [facility] [address] [place], [address] RBC (Bld) [#/Vol] 4.76 10*6/uL Normal 4.6-6.2 [facility] Comment on above: Performed By: #### L 500.2500, L501.4021, L100.0100 #### [facility] [address] [place], [address] RDW SD 39.4 fl Normal 35.1-43.9 [facility] Comment on above: Performed By: #### L 500.2500, L501.4021, L100.0100 #### [facility] [address] [place], [address] WBC (Bld) [#/Vol] 11.1 10*3/uL High 4.4-11.0 [facility] Comment on above: Performed By: #### L 500.2500, L501.4021, L100.0100 #### [facility] [address] [place], [address] Carbon dioxide, total [Moles /volume] in Central venous bloodOrdered By: Deborah Roa on 06-17-2025 CO2 [Moles/Vol] 21.8 mmol/L 21.0-32.0 [facility] Chloride assayOrdered By: Ra jacoby Roa on 06-17-2025 Chloride [Moles/Vol] 89 mmol/L Low 98-108 [facility] Eosinophil percentageOrdered By: Deborah Roa on 06-17-2025 Eosinophils/100 WBC (Bld) 0.2 % 0-5 [facility] Erythrocyte distribution wid th ratioOrdered By: Deborah Roa on 06-17-2025 Erythrocyte distribution width (RBC) [Ratio] 13.0 % 11.6-14.6 [facility] Erythrocyte distribution wid th standard deviationOrdered By: Deborah Roa on 06-17-2025 Erythrocyte distribution width (RBC) [Ratio] 39.4 fl 35.1-43.9 [facility] Glomerular filtration rate ( GFR) estimation/1.73 sq m using serum, plasma, or whole bOrdered By: Deborah Roa on 06-17-2025 GFR/1.73 sq M.predicted among non-blacks MDRD (S/P/Bld) [Vol rate/Area] 100 mL/min/{1.73_m2} >60 [facility] Comment on above: mL/min/1.73m2 CKD-EP I Creatinine Equation (2020) Hematocrit Auto (Bld) [Volum e fraction]Ordered By: Deborah Roa on 06-17-2025 Hematocrit (Bld) [Volume fraction] 39.4 % Low 40-54 [facility] Hemoglobin measurementOrdere d By: Deborah Roa on 06-17-2025 Hemoglobin (Bld) [Mass/Vol] 13.7 g/dL 13.0-16.5 [facility] Immature granulocytes/100 WB C Auto (Bld)Ordered By: Deborah Roa on 06-17-2025 Immature granulocytes/100 WBC (Bld) 0.700 % 0.0-0.9 [facility] Comment on above: IG% - Immature Granu locytes (promyelocytes, myelocytes and metamyelocytes) > 1% indicates that a LEFT SHIFT is Present. MCV (mean corpuscular volume ) determinationOrdered By: Deborah Roa on 06-17-2025 MCV (RBC) [Entitic vol] 82.8 fL 80-94 [facility] Mean corpuscular hemoglobin (MCH) determinationOrdered By: Deborahtony Roa on 06-17-2025 MCH (RBC) [Entitic mass] 28.8 pg 27.0-32.0 [facility] Mean corpuscular hemoglobin concentration (MCHC) determinationOrdered By: Deborah Roa on 06-17-2025 MCHC (RBC) [Mass/Vol] 34.8 g/dL 32-36 [facility] Mean platelet volume determi nationOrdered By: Deborah Roa on 06-17-2025 Platelet mean volume (Bld) [Entitic vol] 9.5 fL 6.2-12.0 [facility] Monocyte percentageOrdered B y: Deborah Roa on 06-17-2025 Monocytes/100 WBC (Bld) 9.4 % 0-10 [facility] Neutrophil percentageOrdered By: Deborah Roa on 06-17-2025 Neutrophils/100 WBC (Bld) 72.1 % High 47-70 [facility] Nucleated red blood cell per centageOrdered By: Deborah Roa on 06-17-2025 Nucleated RBC/100 WBC (Bld) [Ratio] 0 % 0-5 [facility] Platelet countOrdered By: Ra jacoby Roa on 06-17-2025 Platelets (Bld) [#/Vol] 384 10*3/uL 150-450 [facility] Potassium measurement (mass/ volume)Ordered By: Deborah Roa on 06-17-2025 Potassium (Unsp spec) [Mass/Vol] 4.6 mmol/L 3.3-5.1 [facility] RBC Auto (Bld) [#/Vol]Ordere d By: Deborah Roa on 06-17-2025 RBC (Bld) [#/Vol] 4.76 10*6/uL 4.6-6.2 [facility] Serum creatinine measurement (mass/volume)Ordered By: Deborah Roa on 06-17-2025 Creatinine [Mass/Vol] 0.91 mg/dL 0.70-1.20 [facility] Serum glucose measurement (m ass/volume)Ordered By: Deborah Roa on 06-17-2025 Glucose [Mass/Vol] 106 mg/dL High 70-99 [facility] Serum or plasma calcium pepe urement (mass/volume)Ordered By: Deborah Roa on 06-17-2025 Calcium [Mass/Vol] 9.7 mg/dL 7.6-11.0 [facility] Serum or plasma urea nitroge n measurement (mass/volume)Ordered By: Deborah Roa on 06-17-2025 Urea nitrogen [Mass/Vol] 10 mg/dL 4-19 [facility] Sodium levelOrdered By: Gale Roa on 06-17-2025 Sodium [Moles/Vol] 124 mmol/L Low 133-145 [facility] White blood cell (WBC) count Ordered By: Deborah Roa on 06-17-2025 WBC (Bld) [#/Vol] 11.1 10*3/uL High 4.4-11.0 [facility] Low Dose CT Lung Screeningon 06-10-[address] Lung Screening [facility] Services [address] [place] [address] Lung Screening MR#: [id number] Acct: [id number] Name: LYNNETTE GONG Rep #: [id number] : 1970 M 54 From: Roger sena MD PCP: UMAIR Taveras Status: REG CLI Study: Low Dose CT Lung Screening Date of Exam: 06/10 Exam# [id number] Ordering Dr: Anay Bull NP, NP -Juju PROCEDURE: LOW DOSE CT LUNG SCREENING 06/10/2025 REASON FOR EXAM: LUNG CANCER SCREENING Patient has smoked 1-1/2-2 packs per day for 37 years. TECHNIQUE: Coronal and Sagittal reconstruction series were provided. One or more dose reduction techniques were used (e.g., Automated exposure control, adjustment of the mA and/or kV according to patient size, use of iterative reconstruction technique). REFERENCE LINK: [employer] Lung-RADS RADIATION DOSE SUMMARY: CTDlvol: 3.18 mGy [...] Location: [facility] CC: UMAIR Roa; UMAIR Bull Customer Service Administrator: Signed Normal [facility] Oncology Visit Reporton 05-27 Oncology Visit Report [facility] [address] [place] [id number] OFFICE VISIT Date of Service: 06/10/25 1258 MR#: [id number] Acct: [id number] Name: LYNNETTE GONG Rep #: [id number] : 1970 From: Anay Bull NP IMPLEMENTATION MANAGER -C Age/Sex: 54/M Location: [facility] Status: Signed HPI HPI Reviewed eligibility [...] Exam Const Orientation: alert and oriented x3 [facility] Head: normocephalic and atraumatic Neck Neck: trachea [...] 5 mg PO QDAY 05/12/25 06/10/25 [facility] Medical History (Updated 06/10/25 @ 14:29 by Anay Bull IMPLEMENTATION MANAGER, IMPLEMENTATION MANAGER-C) Tobacco use disorder, continuous Encounter for screening [...] We d (more content not included)... Normal [facility] Anion gap in Serum or Plasma Ordered By: Deborah Roa on 07-03-2025 Anion gap [Moles/Vol] 10 mmol/L 5- [facility] BUN/creatinine ratioOrdered By: Deborah Roa on 05-29-2025 Urea nitrogen/Creatinine [Mass ratio] 15.7 mg/mg - [facility] Basic Metabolic Profile (BMP )on 05-29-2025 BUN/CRE 15.7 RATIO Normal - [facility] Comment on above: Performed By: #### L 500.2500, L501.4021, L100.0100 #### [facility] [address] [place], [address] Calcium [Mass/Vol] 9.1 mg/dL Normal 7.6-11.0 [facility] Comment on above: Performed By: #### L 500.2500, L501.4021, L100.0100 #### [facility] [address] [place], [address] Chloride [Moles/Vol] 90 mmol/L Low 98-108 [facility] Comment on above: Performed By: #### L 500.2500, L501.4021, L100.0100 #### [facility] [address] [place], [address] CO2 [Moles/Vol] 23.5 mmol/L Normal 21.0-32.0 [facility] Comment on above: Performed By: #### L 500.2500, L501.4021, L100.0100 #### [facility] [address] [place], [address] Creatinine [Mass/Vol] 0.75 mg/dL Normal 0.70-1.20 [facility] Comment on above: Performed By: #### L 500.2500, L501.4021, L100.0100 #### [facility] [address] [place], [address] GAP 10 Normal - [facility] Comment on above: Performed By: #### L 500.2500, L501.4021, L100.0100 #### [facility] [address] [place], [address] GFR/1.73 sq M.predicted among non-blacks MDRD (S/P/Bld) [Vol rate/Area] 107 mL/min/{1.73_m2} Normal >60 [facility] Comment on above: Result Comment: mL/m in/1.73m2 CKD-EPI Creatinine Equation (2020) Performed By: #### L 500.2500, L501.4021, L100.0100 #### [facility] [address] [place], [address] Glucose [Mass/Vol] 99 mg/dL Normal 70-99 [facility] Comment on above: Performed By: #### L 500.2500, L501.4021, L100.0100 #### [facility] [address] [place], [address] Potassium [Moles/Vol] 4.6 mmol/L Normal 3.3-5.1 [facility] Comment on above: Performed By: #### L 500.2500, L501.4021, L100.0100 #### [facility] [address] [place], [address] Sodium [Moles/Vol] 123 mmol/L Low 133-145 [facility] Comment on above: Performed By: #### L 500.2500, L501.4021, L100.0100 #### [facility] [address] [place], [address] Urea nitrogen [Mass/Vol] 12 mg/dL Normal 4-19 [facility] Comment on above: Performed By: #### L 500.2500, L501.4021, L100.0100 #### [facility] [address] [place], [address] Carbon dioxide, total [Moles /volume] in Central venous bloodOrdered By: Deborah Roa on 05-29-2025 CO2 [Moles/Vol] 23.5 mmol/L 21.0-32.0 [facility] Chloride assayOrdered By: Ra jacoby Roa on 05-29-2025 Chloride [Moles/Vol] 90 mmol/L Low 98-108 [facility] Glomerular filtration rate ( GFR) estimation/1.73 sq m using serum, plasma, or whole bOrdered By: Deborah Roa on 05-29-2025 GFR/1.73 sq M.predicted among non-blacks MDRD (S/P/Bld) [Vol rate/Area] 107 mL/min/{1.73_m2} >60 [facility] Comment on above: mL/min/1.73m2 CKD-EP I Creatinine Equation (2020) Potassium measurement (mass/ volume)Ordered By: Deborah Roa on 05-29-2025 Potassium (Unsp spec) [Mass/Vol] 4.6 mmol/L 3.3-5.1 [facility] Serum creatinine measurement (mass/volume)Ordered By: Deborah Roa on 05-29-2025 Creatinine [Mass/Vol] 0.75 mg/dL 0.70-1.20 [facility] Serum glucose measurement (m ass/volume)Ordered By: Deborah Roa on 05-29-2025 Glucose [Mass/Vol] 99 mg/dL 70-99 [facility] Serum or plasma calcium pepe urement (mass/volume)Ordered By: Deborah Roa on 05-29-2025 Calcium [Mass/Vol] 9.1 mg/dL 7.6-11.0 [facility] Serum or plasma urea nitroge n measurement (mass/volume)Ordered By: Deborah Roa on 05-29-2025 Urea nitrogen [Mass/Vol] 12 mg/dL 4-19 [facility] Sodium levelOrdered By: Gale Roa on 05-29-2025 Sodium [Moles/Vol] 123 mmol/L Low 133-145 [facility] Anion gap in Serum or Plasma Ordered By: Deborah Roa on 05-20-2025 Anion gap [Moles/Vol] 11 mmol/L 5-15 [facility] BUN/creatinine ratioOrdered By: Deborah Roa on 05-20-2025 Urea nitrogen/Creatinine [Mass ratio] 6.7 mg/mg Low 10-20 [facility] Basic Metabolic Profile (BMP )on 05-20-2025 BUN/CRE 6.7 RATIO Low -20 [facility] Comment on above: Performed By: #### L 500.2500, L501.4021, L100.0100 #### [facility] [address] [place], [address] Calcium [Mass/Vol] 8.9 mg/dL Normal 7.6-11.0 [facility] Comment on above: Performed By: #### L 500.2500, L501.4021, L100.0100 #### [facility] [address] [place], [address] Chloride [Moles/Vol] 83 mmol/L Low 98-108 [facility] Comment on above: Performed By: #### L 500.2500, L501.4021, L100.0100 #### [facility] [address] [place], [address] CO2 [Moles/Vol] 23.2 mmol/L Normal 21.0-32.0 [facility] Comment on above: Performed By: #### L 500.2500, L501.4021, L100.0100 #### [facility] [address] [place], [address] Creatinine [Mass/Vol] 0.69 mg/dL Low 0.70-1.20 [facility] Comment on above: Performed By: #### L 500.2500, L501.4021, L100.0100 #### [facility] [address] [place], [address] GAP 11 Normal 5-15 [facility] Comment on above: Performed By: #### L 500.2500, L501.4021, L100.0100 #### [facility] [address] [place], [address] GFR/1.73 sq M.predicted among non-blacks MDRD (S/P/Bld) [Vol rate/Area] 109 mL/min/{1.73_m2} Normal >60 [facility] Comment on above: Result Comment: mL/m in/1.73m2 CKD-EPI Creatinine Equation (2020) Performed By: #### L 500.2500, L501.4021, L100.0100 #### [facility] [address] [place], [address] Glucose [Mass/Vol] 105 mg/dL High 70-99 [facility] Comment on above: Performed By: #### L 500.2500, L501.4021, L100.0100 #### [facility] [address] [place], [address] Potassium [Moles/Vol] 4.3 mmol/L Normal 3.3-5.1 [facility] Comment on above: Performed By: #### L 500.2500, L501.4021, L100.0100 #### [facility] [address] [place], [address] Sodium [Moles/Vol] 118 mmol/L Invalid Interpretation Code 133-145 [facility] Comment on above: Result Comment: Crit ical Result(s) Called at: by:??Results read back by same. CALLED OFFICE AND LEFT MESSAGE AT 1622 Critical Result(s) Called at: by:??Results read back by same. Performed By: #### L 500.2500, L501.4021, L100.0100 #### [facility] [address] [place], [address] Urea nitrogen [Mass/Vol] 5 mg/dL Normal 4-19 [facility] Comment on above: Performed By: #### L 500.2500, L501.4021, L100.0100 #### [facility] [address] [place], [address] Carbon dioxide, total [Moles /volume] in Central venous bloodOrdered By: Deborah Roa on 05-20-2025 CO2 [Moles/Vol] 23.2 mmol/L 21.0-32.0 [facility] Chloride assayOrdered By: Ra jacoby Roa on 05-20-2025 Chloride [Moles/Vol] 83 mmol/L Low 98-108 [facility] Glomerular filtration rate ( GFR) estimation/1.73 sq m using serum, plasma, or whole bOrdered By: Deborah Roa on 05-20-2025 GFR/1.73 sq M.predicted among non-blacks MDRD (S/P/Bld) [Vol rate/Area] 109 mL/min/{1.73_m2} >60 [facility] Comment on above: mL/min/1.73m2 CKD-EP I Creatinine Equation (2020) Potassium measurement (mass/ volume)Ordered By: Deborah Roa on 05-20-2025 Potassium (Unsp spec) [Mass/Vol] 4.3 mmol/L 3.3-5.1 [facility] Serum creatinine measurement (mass/volume)Ordered By: Deborah Roa on 05-20-2025 Creatinine [Mass/Vol] 0.69 mg/dL Low 0.70-1.20 [facility] Serum glucose measurement (m ass/volume)Ordered By: Deborah Roa on 05-20-2025 Glucose [Mass/Vol] 105 mg/dL High 70-99 [facility] Serum or plasma calcium pepe urement (mass/volume)Ordered By: Deborah Roa on 05-20-2025 Calcium [Mass/Vol] 8.9 mg/dL 7.6-11.0 [facility] Serum or plasma urea nitroge n measurement (mass/volume)Ordered By: Deborah Roa on 05-20-2025 Urea nitrogen [Mass/Vol] 5 mg/dL 4-19 [facility] Sodium levelOrdered By: Gale Roa on 05-20-2025 Sodium [Moles/Vol] 118 mmol/L Critically low 133-145 [facility] Comment on above: Critical Result(s) C alled at: by: Results read back by same.CALLED OFFICE AND LEFT MESSAGE AT 1622Critical Result(s) Called at: by: Results read back by same. Surgery Visit Reporton 05-12 Surgery Visit Report [facility] [address] [place] [address] OFFICE VISIT Date of Service: 05/12/25 MR#: [id number] Acct: [id number] Name: LYNNETTE GONG Rep #: [id number] : 1970 Provider: Dr. Betty brooke MD Age/Sex: 54/M Location: [facility] Status: Signed Intake Vital Signs 02/04/24 17:39 [...] General: cooperative, comfortable and no acute distress [facility] Head: normocephalic and atraumatic Neck Neck: supple [...] of clear (more content not included)... Normal [facility] Anion gap in Serum or Plasma Ordered By: Kevin Singh on 05-05-2025 Anion gap [Moles/Vol] 10 mmol/L 5-15 [facility] BUN/creatinine ratioOrdered By: Kevin Singh on 05-05-2025 Urea nitrogen/Creatinine [Mass ratio] 7.9 mg/mg Low - [facility] Basic Metabolic Profile (BMP )on 05-05-2025 BUN/CRE 7.9 RATIO Low - [facility] Comment on above: Performed By: #### L 500.2500, L501.4021, L100.0100 #### [facility] [address] [place], [address] Calcium [Mass/Vol] 8.7 mg/dL Normal 7.6-11.0 [facility] Comment on above: Performed By: #### L 500.2500, L501.4021, L100.0100 #### [facility] [address] [place], [address] Chloride [Moles/Vol] 93 mmol/L Low 98-108 [facility] Comment on above: Performed By: #### L 500.2500, L501.4021, L100.0100 #### [facility] [address] [place], [address] CO2 [Moles/Vol] 23.7 mmol/L Normal 21.0-32.0 [facility] Comment on above: Performed By: #### L 500.2500, L501.4021, L100.0100 #### [facility] [address] [place], [address] Creatinine [Mass/Vol] 0.73 mg/dL Normal 0.70-1.20 [facility] Comment on above: Performed By: #### L 500.2500, L501.4021, L100.0100 #### [facility] [address] [place], [address] ECRCL 163.37 ml/min Normal 50-250 [facility] Comment on above: Performed By: #### L 500.2500, L501.4021, L100.0100 #### [facility] [address] [place], [address] GAP 10 Normal 5-15 [facility] Comment on above: Performed By: #### L 500.2500, L501.4021, L100.0100 #### [facility] [address] [place], [address] GFR/1.73 sq M.predicted among non-blacks MDRD (S/P/Bld) [Vol rate/Area] 107 mL/min/{1.73_m2} Normal >60 [facility] Comment on above: Result Comment: mL/m in/1.73m2 CKD-EPI Creatinine Equation (2020) Performed By: #### L 500.2500, L501.4021, L100.0100 #### [facility] [address] [place], [address] Glucose [Mass/Vol] 105 mg/dL High 70-99 [facility] Comment on above: Performed By: #### L 500.2500, L501.4021, L100.0100 #### [facility] [address] [place], [address] Potassium [Moles/Vol] 4.1 mmol/L Normal 3.3-5.1 [facility] Comment on above: Performed By: #### L 500.2500, L501.4021, L100.0100 #### [facility] [address] [place], [address] Sodium [Moles/Vol] 127 mmol/L Low 133-145 [facility] Comment on above: Performed By: #### L 500.2500, L501.4021, L100.0100 #### [facility] [address] [place], [address] Urea nitrogen [Mass/Vol] 6 mg/dL Normal 4-19 [facility] Comment on above: Performed By: #### L 500.2500, L501.4021, L100.0100 #### [facility] [address] [place], [address] Carbon dioxide, total [Moles /volume] in Central venous bloodOrdered By: Kevin Singh on 05-05-2025 CO2 [Moles/Vol] 23.7 mmol/L 21.0-32.0 [facility] Chloride assayOrdered By: Norris Singh on 05-05-2025 Chloride [Moles/Vol] 93 mmol/L Low 98-108 [facility] Electrocardiogram reportOrde red By: Patrick Tian on 05-05-[address] [facility] [address] [place] [address] 12 Lead EKG 05/03/25 1622 MR#: [id number] Acct: [id number] Name: LYNNETTE GONG Rep #:[id number] : 1970 54 From: Patrick meadows MD Attending Dr: Dr. Kevin Singh DO Status: ADM IN Ordering Dr: Allan Jc DO Date: Location: [facility] Sex: M C Admitted: 05/03/25 [...] ABNORMAL ECG Confirmed by Patrick Tian ([id number]), publications editor TITO FRIAS ([id number]) on 05/05/2025 9:20:06 AM Referred By: Confirmed By: Patrick Tian 05/05/25919 Date _ Patrick Tian MD CC: UMAIR Roa; Dr. Kevin Singh DO; Dr. Allan Jc DO ~ Signed [facility] Other Phone: Glomerular filtration rate ( GFR) estimation/1.73 sq m using serum, plasma, or whole bOrdered By: Kevin Singh on 05-05-2025 GFR/1.73 sq M.predicted among non-blacks MDRD (S/P/Bld) [Vol rate/Area] 107 mL/min/{1.73_m2} >60 [facility] Comment on above: mL/min/1.73m2 CKD-EP I Creatinine Equation (2020) Potassium measurement (mass/ volume)Ordered By: Kevin Singh on 05-05-2025 Potassium (Unsp spec) [Mass/Vol] 4.1 mmol/L 3.3-5.1 [facility] Serum creatinine measurement (mass/volume)Ordered By: Kevin Singh on 05-05-2025 Creatinine [Mass/Vol] 0.73 mg/dL 0.70-1.20 [facility] Serum glucose measurement (m ass/volume)Ordered By: Kevin Singh on 05-05-2025 Glucose [Mass/Vol] 105 mg/dL High 70-99 [facility] Serum or plasma calcium pepe urement (mass/volume)Ordered By: Kevin Singh on 05-05-2025 Calcium [Mass/Vol] 8.7 mg/dL 7.6-11.0 [facility] Serum or plasma urea nitroge n measurement (mass/volume)Ordered By: eKvin Singh on 05-05-2025 Urea nitrogen [Mass/Vol] 6 mg/dL 4-19 [facility] Sodium levelOrdered By: Kevin Singh on 05-05-2025 Sodium [Moles/Vol] 127 mmol/L Low 133-145 [facility] Absolute lymphocyte countOrd ered By: Meseret Minor on 05-04-2025 Lymphocytes Auto (Unsp spec) [#/Vol] 2.08 10*3/uL 0.83-4.51 [facility] Absolute neutrophil countOrd ered By: Meseret Minor on 05-04-2025 Neutrophils (Bld) [#/Vol] 6.0 10*3/uL 2.0-7.7 [facility] Automated lymphocyte count a s percentage of total leukocytesOrdered By: Meseret Minor on 05-04-2025 Lymphocytes/100 WBC Auto (Unsp spec) 22.7 % 19-41 [facility] Basic Metabolic Profile (BMP )on 05-04-2025 BUN/CRE 11.4 RATIO Normal 10-20 [facility] Comment on above: Performed By: #### L 500.2500, L501.4021, L100.0100 #### [facility] [address] [place], [address] Calcium [Mass/Vol] 8.8 mg/dL Normal 7.6-11.0 [facility] Comment on above: Performed By: #### L 500.2500, L501.4021, L100.0100 #### [facility] [address] [place], [address] Chloride [Moles/Vol] 90 mmol/L Low 98-108 [facility] Comment on above: Performed By: #### L 500.2500, L501.4021, L100.0100 #### [facility] [address] [place], [address] CO2 [Moles/Vol] 20.0 mmol/L Low 21.0-32.0 [facility] Comment on above: Performed By: #### L 500.2500, L501.4021, L100.0100 #### [facility] [address] [place], [address] Creatinine [Mass/Vol] 0.64 mg/dL Low 0.70-1.20 [facility] Comment on above: Performed By: #### L 500.2500, L501.4021, L100.0100 #### [facility] [address] [place], [address] ECRCL 187.67 ml/min Normal 50-250 [facility] Comment on above: Performed By: #### L 500.2500, L501.4021, L100.0100 #### [facility] [address] [place], [address] GAP 11 Normal 5-15 [facility] Comment on above: Performed By: #### L 500.2500, L501.4021, L100.0100 #### [facility] [address] [place], [address] GFR/1.73 sq M.predicted among non-blacks MDRD (S/P/Bld) [Vol rate/Area] 112 mL/min/{1.73_m2} Normal >60 [facility] Comment on above: Result Comment: mL/m in/1.73m2 CKD-EPI Creatinine Equation (2020) Performed By: #### L 500.2500, L501.4021, L100.0100 #### [facility] [address] [place], [address] Glucose [Mass/Vol] 114 mg/dL High 70-99 [facility] Comment on above: Performed By: #### L 500.2500, L501.4021, L100.0100 #### [facility] [address] [place], [address] Potassium [Moles/Vol] 4.4 mmol/L Normal 3.3-5.1 [facility] Comment on above: Performed By: #### L 500.2500, L501.4021, L100.0100 #### [facility] [address] [place], [address] Sodium [Moles/Vol] 121 mmol/L Low 133-145 [facility] Comment on above: Performed By: #### L 500.2500, L501.4021, L100.0100 #### [facility] [address] [place], [address] Urea nitrogen [Mass/Vol] 7 mg/dL Normal 4-19 [facility] Comment on above: Performed By: #### L 500.2500, L501.4021, L100.0100 #### [facility] [address] [place], [address] BUN Normal 4-19 [facility] Comment on above: Result Comment: CANC ELLATION ORDER ENTERED Performed By: #### L 500.2500, L501.4021, L100.0100 #### [facility] [address] [place], [address] BUN/CRE Normal 10-20 [facility] Comment on above: Result Comment: CANC ELLATION ORDER ENTERED Performed By: #### L 500.2500, L501.4021, L100.0100 #### [facility] [address] [place], [address] Calcium Normal 7.6-11.0 [facility] Comment on above: Result Comment: CANC ELLATION ORDER ENTERED Performed By: #### L 500.2500, L501.4021, L100.0100 #### [facility] [address] [place], [address] CL Normal 98-108 [facility] Comment on above: Result Comment: CANC ELLATION ORDER ENTERED Performed By: #### L 500.2500, L501.4021, L100.0100 #### [facility] [address] [place], [address] CO2 Normal 21.0-32.0 [facility] Comment on above: Result Comment: CANC ELLATION ORDER ENTERED Performed By: #### L 500.2500, L501.4021, L100.0100 #### [facility] [address] [place], [address] CREAT,SERUM Normal 0.70-1.20 [facility] Comment on above: Result Comment: CANC ELLATION ORDER ENTERED Performed By: #### L 500.2500, L501.4021, L100.0100 #### [facility] [address] [place], [address] eGFR Normal >60 [facility] Comment on above: Result Comment: CANC ELLATION ORDER ENTERED Performed By: #### L 500.2500, L501.4021, L100.0100 #### [facility] [address] [place], [address] GAP Normal 5-15 [facility] Comment on above: Result Comment: CANC ELLATION ORDER ENTERED Performed By: #### L 500.2500, L501.4021, L100.0100 #### [facility] [address] [place], [address] GLU Normal 70-99 [facility] Comment on above: Result Comment: CANC ELLATION ORDER ENTERED Performed By: #### L 500.2500, L501.4021, L100.0100 #### [facility] [address] [place], [address] Potassium Normal 3.3-5.1 [facility] Comment on above: Result Comment: CANC ELLATION ORDER ENTERED Performed By: #### L 500.2500, L501.4021, L100.0100 #### [facility] [address] [place], [address] Basic Metabolic Profile (BMP) Normal 133-145 [facility] Comment on above: Result Comment: CANC ELLATION ORDER ENTERED Performed By: #### L 500.2500, L501.4021, L100.0100 #### [facility] [address] [place], [address] BUN/CRE 9.3 RATIO Low 10-20 [facility] Comment on above: Performed By: #### L 500.2500 #### [facility] [address] [place], [address] Calcium [Mass/Vol] 8.7 mg/dL Normal 7.6-11.0 [facility] Comment on above: Performed By: #### L 500.2500 #### [facility] [address] [place], [address] Chloride [Moles/Vol] 88 mmol/L Low 98-108 [facility] Comment on above: Performed By: #### L 500.2500 #### [facility] [address] [place], [address] CO2 [Moles/Vol] 21.4 mmol/L Normal 21.0-32.0 [facility] Comment on above: Performed By: #### L 500.2500 #### [facility] [address] [place], [address] Creatinine [Mass/Vol] 0.71 mg/dL Normal 0.70-1.20 [facility] Comment on above: Performed By: #### L 500.2500 #### [facility] [address] [place], [address] ECRCL 169.17 ml/min Normal 50-250 [facility] Comment on above: Performed By: #### L 500.2500 #### [facility] [address] [place], [address] GAP 12 Normal 5-15 [facility] Comment on above: Performed By: #### L 500.2500 #### [facility] [address] [place], [address] GFR/1.73 sq M.predicted among non-blacks MDRD (S/P/Bld) [Vol rate/Area] 108 mL/min/{1.73_m2} Normal >60 [facility] Comment on above: Result Comment: mL/m in/1.73m2 CKD-EPI Creatinine Equation (2020) Performed By: #### L 500.2500 #### [facility] [address] [place], [address] Glucose [Mass/Vol] 98 mg/dL Normal 70-99 [facility] Comment on above: Performed By: #### L 500.2500 #### [facility] [address] [place], [address] Potassium [Moles/Vol] 3.8 mmol/L Normal 3.3-5.1 [facility] Comment on above: Performed By: #### L 500.2500 #### [facility] [address] [place], [address] Sodium [Moles/Vol] 121 mmol/L Low 133-145 [facility] Comment on above: Performed By: #### L 500.2500 #### [facility] [address] [place], [address] Urea nitrogen [Mass/Vol] 7 mg/dL Normal 4-19 [facility] Comment on above: Performed By: #### L 500.2500 #### [facility] [address] [place], [address] Basophil percentageOrdered B y: Meseret Minor on 05-04-2025 Basophils/100 WBC (Bld) 0.7 % 0-1 [facility] Bilirubin, totalOrdered By: Meseret Minor on 05-04-2025 Bilirubin [Mass/Vol] 0.56 mg/dL 0.00-1.30 [facility] CBC W/Diff, Automatedon Absolute Lymph 2.08 X10 3/uL Normal 0.83-4.51 [facility] Comment on above: Performed By: #### L 500.2500, L501.4021, L100.0100 #### [facility] [address] [place], [address] Absolute Neut 6.0 X10 3/uL Normal 2.0-7.7 [facility] Comment on above: Performed By: #### L 500.2500, L501.4021, L100.0100 #### [facility] [address] [place], [address] Basophils/100 WBC (Bld) 0.7 % Normal 0-1 [facility] Comment on above: Performed By: #### L 500.2500, L501.4021, L100.0100 #### [facility] [address] [place], [address] Eosinophils/100 WBC (Bld) 0.2 % Normal 0-5 [facility] Comment on above: Performed By: #### L 500.2500, L501.4021, L100.0100 #### [facility] [address] [place], [address] Erythrocyte distribution width (RBC) [Ratio] 12.6 % Normal 11.6-14.6 [facility] Comment on above: Performed By: #### L 500.2500, L501.4021, L100.0100 #### [facility] [address] [place], [address] Hematocrit (Bld) [Volume fraction] 37.9 % Low 40-54 [facility] Comment on above: Performed By: #### L 500.2500, L501.4021, L100.0100 #### [facility] [address] [place], [address] Hemoglobin (Bld) [Mass/Vol] 14.0 g/dL Normal 13.0-16.5 [facility] Comment on above: Performed By: #### L 500.2500, L501.4021, L100.0100 #### [facility] [address] [place], [address] IG% 0.800 Normal 0.0-0.9 [facility] Comment on above: Result Comment: IG% - Immature Granulocytes (promyelocytes, myelocytes and metamyelocytes) > 1% indicates that a LEFT SHIFT is Present. Performed By: #### L 500.2500, L501.4021, L100.0100 #### [facility] [address] [place], [address] Lymphocytes/100 WBC (Bld) 22.7 % Normal 19-41 [facility] Comment on above: Performed By: #### L 500.2500, L501.4021, L100.0100 #### [facility] [address] [place], [address] MCH (RBC) [Entitic mass] 30.0 pg Normal 27.0-32.0 [facility] Comment on above: Performed By: #### L 500.2500, L501.4021, L100.0100 #### [facility] [address] [place], [address] MCHC (RBC) [Mass/Vol] 36.9 g/dL High 32-36 [facility] Comment on above: Performed By: #### L 500.2500, L501.4021, L100.0100 #### [facility] [address] [place], [address] MCV (RBC) [Entitic vol] 81.3 fL Normal 80-94 [facility] Comment on above: Performed By: #### L 500.2500, L501.4021, L100.0100 #### [facility] [address] [place], [address] Monocytes/100 WBC (Bld) 10.3 % High 0-10 [facility] Comment on above: Performed By: #### L 500.2500, L501.4021, L100.0100 #### [facility] [address] [place], [address] Neutrophils/100 WBC (Bld) 65.3 % Normal 47-70 [facility] Comment on above: Performed By: #### L 500.2500, L501.4021, L100.0100 #### [facility] [address] [place], [address] Nucleated RBC (Bld) [#/Vol] 0 10*3/uL Normal 0-5 [facility] Comment on above: Performed By: #### L 500.2500, L501.4021, L100.0100 #### [facility] [address] [place], [address] Platelet mean volume (Bld) [Entitic vol] 9.1 fL Normal 6.2-12.0 [facility] Comment on above: Performed By: #### L 500.2500, L501.4021, L100.0100 #### [facility] [address] [place], [address] Platelets (Bld) [#/Vol] 252 10*3/uL Normal 150-450 [facility] Comment on above: Performed By: #### L 500.2500, L501.4021, L100.0100 #### [facility] [address] [place], [address] RBC (Bld) [#/Vol] 4.66 10*6/uL Normal 4.6-6.2 [facility] Comment on above: Performed By: #### L 500.2500, L501.4021, L100.0100 #### [facility] [address] [place], [address] RDW SD 37.4 fl Normal 35.1-43.9 [facility] Comment on above: Performed By: #### L 500.2500, L501.4021, L100.0100 #### [facility] [address] [place], [address] WBC (Bld) [#/Vol] 9.2 10*3/uL Normal 4.4-11.0 [facility] Comment on above: Performed By: #### L 500.2500, L501.4021, L100.0100 #### [facility] [address] [place], [address] Comprehensive Metabolic Prof ilon 05-04-2025 Albumin [Mass/Vol] 3.9 g/dL Normal 3.5-5.0 [facility] Comment on above: Performed By: #### L 500.2500, L501.4021, L100.0100 #### [facility] [address] [place], [address] Albumin/Globulin [Mass ratio] 1.6 {ratio} Normal 0.9-2.4 [facility] Comment on above: Performed By: #### L 500.2500, L501.4021, L100.0100 #### [facility] [address] [place], [address] ALK PHOS 56 U/L Normal 40-129 [facility] Comment on above: Performed By: #### L 500.2500, L501.4021, L100.0100 #### [facility] [address] [place], [address] ALT [Catalytic activity/Vol] 12 U/L Normal <=46 [facility] Comment on above: Performed By: #### L 500.2500, L501.4021, L100.0100 #### [facility] [address] [place], [address] AST [Catalytic activity/Vol] 20 U/L Normal <=37 [facility] Comment on above: Performed By: #### L 500.2500, L501.4021, L100.0100 #### [facility] [address] [place], [address] Bilirubin [Mass/Vol] 0.56 mg/dL Normal 0.00-1.30 [facility] Comment on above: Performed By: #### L 500.2500, L501.4021, L100.0100 #### [facility] [address] [place], [address] BUN/CRE 9.3 RATIO Low 10-20 [facility] Comment on above: Performed By: #### L 500.2500, L501.4021, L100.0100 #### [facility] [address] [place], [address] Calcium [Mass/Vol] 8.7 mg/dL Normal 7.6-11.0 [facility] Comment on above: Performed By: #### L 500.2500, L501.4021, L100.0100 #### [facility] [address] [place], [address] Chloride [Moles/Vol] 89 mmol/L Low 98-108 [facility] Comment on above: Performed By: #### L 500.2500, L501.4021, L100.0100 #### [facility] [address] [place], [address] CO2 [Moles/Vol] 22.0 mmol/L Normal 21.0-32.0 [facility] Comment on above: Performed By: #### L 500.2500, L501.4021, L100.0100 #### [facility] [address] [place], [address] Creatinine [Mass/Vol] 0.62 mg/dL Low 0.70-1.20 [facility] Comment on above: Performed By: #### L 500.2500, L501.4021, L100.0100 #### [facility] [address] [place], [address] ECRCL 193.73 ml/min Normal 50-250 [facility] Comment on above: Performed By: #### L 500.2500, L501.4021, L100.0100 #### [facility] [address] [place], [address] GAP 11 Normal 5-15 [facility] Comment on above: Performed By: #### L 500.2500, L501.4021, L100.0100 #### [facility] [address] [place], [address] GFR/1.73 sq M.predicted among non-blacks MDRD (S/P/Bld) [Vol rate/Area] 113 mL/min/{1.73_m2} Normal >60 [facility] Comment on above: Result Comment: mL/m in/1.73m2 CKD-EPI Creatinine Equation (2020) Performed By: #### L 500.2500, L501.4021, L100.0100 #### [facility] [address] [place], [address] Globulin (S) [Mass/Vol] 2.4 g/dL Normal 2.2-4.2 [facility] Comment on above: Performed By: #### L 500.2500, L501.4021, L100.0100 #### [facility] [address] [place], [address] Glucose [Mass/Vol] 101 mg/dL High 70-99 [facility] Comment on above: Performed By: #### L 500.2500, L501.4021, L100.0100 #### [facility] [address] [place], [address] Potassium [Moles/Vol] 3.8 mmol/L Normal 3.3-5.1 [facility] Comment on above: Performed By: #### L 500.2500, L501.4021, L100.0100 #### [facility] [address] [place], [address] Sodium [Moles/Vol] 123 mmol/L Low 133-145 [facility] Comment on above: Performed By: #### L 500.2500, L501.4021, L100.0100 #### [facility] [address] [place], [address] T PROT 6.3 g/dL Normal 5.9-8.4 [facility] Comment on above: Performed By: #### L 500.2500, L501.4021, L100.0100 #### [facility] [address] [place], [address] Urea nitrogen [Mass/Vol] 6 mg/dL Normal 4-19 [facility] Comment on above: Performed By: #### L 500.2500, L501.4021, L100.0100 #### [facility] [address] [place], [address] Eosinophil percentageOrdered By: Meseret Minor on 05-04-2025 Eosinophils/100 WBC (Bld) 0.2 % 0-5 [facility] Erythrocyte distribution wid th ratioOrdered By: Meseret Minor on 05-04-2025 Erythrocyte distribution width (RBC) [Ratio] 12.6 % 11.6-14.6 [facility] Erythrocyte distribution wid th standard deviationOrdered By: Meseret Minor on 05-04-2025 Erythrocyte distribution width (RBC) [Ratio] 37.4 fl 35.1-43.9 [facility] Hematocrit Auto (Bld) [Volum e fraction]Ordered By: Meseret Minor on 05-04-2025 Hematocrit (Bld) [Volume fraction] 37.9 % Low 40-54 [facility] Hemoglobin measurementOrdere d By: Meseret Minor on 05-04-2025 Hemoglobin (Bld) [Mass/Vol] 14.0 g/dL 13.0-16.5 [facility] Immature granulocytes/100 WB C Auto (Bld)Ordered By: Meseret Minor on 05-04-2025 Immature granulocytes/100 WBC (Bld) 0.800 % 0.0-0.9 [facility] Comment on above: IG% - Immature Granu locytes (promyelocytes, myelocytes and metamyelocytes) > 1% indicates that a LEFT SHIFT is Present. Laboratory - Chemistry and C hemistry - challengeOrdered By: Meseret Minor on 05-04-2025 AST [Catalytic activity/Vol] 20 U/L <38 [facility] MCV (mean corpuscular volume ) determinationOrdered By: Meseret Minor on 05-04-2025 MCV (RBC) [Entitic vol] 81.3 fL 80-94 [facility] Magnesiumon 05-04-2025 Magnesium [Mass/Vol] 1.9 mg/dL Normal 1.5-2.2 [facility] Comment on above: Performed By: #### L 500.2500, L501.4021, L100.0100 #### [facility] [address] [place], [address] Magnesium measurement (mass/ volume)Ordered By: Meseret Minor on 05-04-2025 Magnesium (Unsp spec) [Mass/Vol] 1.9 mg/dL 1.5-2.2 [facility] Mean corpuscular hemoglobin (MCH) determinationOrdered By: Meseret Minor on 05-04-2025 MCH (RBC) [Entitic mass] 30.0 pg 27.0-32.0 [facility] Mean corpuscular hemoglobin concentration (MCHC) determinationOrdered By: Meseret Minor on 05-04-2025 MCHC (RBC) [Mass/Vol] 36.9 g/dL High 32-36 [facility] Mean platelet volume determi nationOrdered By: Meseret Minor on 05-04-2025 Platelet mean volume (Bld) [Entitic vol] 9.1 fL 6.2-12.0 [facility] Monocyte percentageOrdered B y: Meseret Minor on 05-04-2025 Monocytes/100 WBC (Bld) 10.3 % High 0-10 [facility] Neutrophil percentageOrdered By: Meseret Minor on 05-04-2025 Neutrophils/100 WBC (Bld) 65.3 % 47-70 [facility] Nucleated red blood cell per centageOrdered By: Meseret Minor on 05-04-2025 Nucleated RBC/100 WBC (Bld) [Ratio] 0 % 0-5 [facility] Osmolality, Urineon 05-04-20 25 OSMOLALITY,UR 181 mOsm/KG Normal [facility] Comment on above: Result Comment: Normal Urine Reference Ranges Random: 50 - 1200 mOsm/kg H20 depending on fluid intake Random: >850 mOsm/kg after 12 hour fluid restriction 24 hour: 300 - 900 mOsm/kg H2O Performed By: #### L 501.7400, L501.5500 #### [facility] [address] [place], [address] Phosphoruson 05-04-2025 Phosphate [Mass/Vol] 3.9 mg/dL Normal 2.7-4.5 [facility] Comment on above: Performed By: #### L 500.2500, L501.4021, L100.0100 #### [facility] [address] [place], [address] Platelet countOrdered By: Bhavesh Minor on 05-04-2025 Platelets (Bld) [#/Vol] 252 10*3/uL 150-450 [facility] RBC Auto (Bld) [#/Vol]Ordere d By: Meseret Minor on 05-04-2025 RBC (Bld) [#/Vol] 4.66 10*6/uL 4.6-6.2 [facility] Serum globulin measurementOr dered By: Meseret Minor on 05-04-2025 Globulin (S) [Mass/Vol] 2.4 g/dL 2.2-4.2 [facility] Serum or plasma alanine sanchez otransferase (ALT) measurementOrdered By: Meseret Minor on 05-04-2025 ALT [Catalytic activity/Vol] 12 U/L <47 [facility] Serum or plasma albumin pepe urement (mass/volume)Ordered By: Meseret Minor on 05-04-2025 Albumin [Mass/Vol] 3.9 g/dL 3.5-5.0 [facility] Serum or plasma albumin/glob ulin mass ratioOrdered By: Meseret Minor on 05-04-2025 Albumin/Globulin [Mass ratio] 1.6 {ratio} 0.9-2.4 [facility] Serum or plasma alkaline logan sphatase measurementOrdered By: Meseret Minor on 05-04-2025 ALP [Catalytic activity/Vol] 56 U/L 40-129 [facility] Total proteinOrdered By: Magalie Minor on 05-04-2025 Protein [Mass/Vol] 6.3 g/dL 5.9-8.4 [facility] Urine Drug Screen (VISTA)on 05-04-2025 AMPHETAMINES Negative Normal <1000 ng/mL [facility] Comment on above: Performed By: #### L 500.2500, L501.4021, L100.0100 #### [facility] [address] [place], [address] BARBITIURATES Negative Normal < 200 ng/mL [facility] Comment on above: Performed By: #### L 500.2500, L501.4021, L100.0100 #### [facility] [address] [place], [address] BENZODIAZIPINE Negative Normal < 200 ng/mL [facility] Comment on above: Performed By: #### L 500.2500, L501.4021, L100.0100 #### [facility] [address] [place], [address] BUP Ur Drug Scr Negative Normal < 200 ng/mL [facility] Comment on above: Performed By: #### L 500.2500, L501.4021, L100.0100 #### [facility] [address] [place], [address] COCAINE Negative Normal < 300 ng/mL [facility] Comment on above: Performed By: #### L 500.2500, L501.4021, L100.0100 #### [facility] [address] [place], [address] Fentanyl Negative Normal [facility] Comment on above: Performed By: #### L 500.2500, L501.4021, L100.0100 #### [facility] [address] [place], [address] METHADONE Negative Normal < 300 ng/mL [facility] Comment on above: Performed By: #### L 500.2500, L501.4021, L100.0100 #### [facility] [address] [place], [address] OPIATES Negative Normal < 300 ng/mL [facility] Comment on above: Performed By: #### L 500.2500, L501.4021, L100.0100 #### [facility] [address] [place], [address] OXYCODONE Negative Normal < 100 ng/mL [facility] Comment on above: Performed By: #### L 500.2500, L501.4021, L100.0100 #### [facility] [address] [place], [address] PCP Negative Normal < 25 ng/mL [facility] Comment on above: Performed By: #### L 500.2500, L501.4021, L100.0100 #### [facility] [address] [place], [address] THC Negative Normal < 50 ng/mL [facility] Comment on above: Performed By: #### L 500.2500, L501.4021, L100.0100 #### [facility] [address] [place], [address] Urine Sodiumon 05-04-2025 Sodium (U) [Moles/Vol] 33 mmol/L Normal Not Establ. [facility] Comment on above: Performed By: #### L 501.7400, L501.5500 #### [facility] [address] [place], [address] White blood cell (WBC) count Ordered By: Meseret Minor on 05-04-2025 WBC (Bld) [#/Vol] 9.2 10*3/uL 4.4-11.0 [facility] 12 Lead EKGon 05-03-2025 12 Lead E[address] [facility] Cardiovascular Services [address] [place] [address] 12 Lead EKG 05/03/25 1622 MR#: [id number] Acct: [id number] Name: LYNNETTE GONG Rep #: [id number] : 1970 54 From: Patrick Tian MD Attending Dr: Dr. Kevin Singh DO Status: ADM IN Ordering Dr: Allan Jc DO Date: 05/03/25 Location: [facility] Sex: M C Admitted: 05/03/25 [...] ABNORMAL ECG Confirmed by Patrick Tian ([id number]), publications editor TITO FRIAS ([id number]) on 05/05/2025 9:20:06 AM Referred By: Confirmed By: Patrick Tian 05/05/25919 Date Patrick Tian MD CC: UMAIR Roa; Dr. Kevin Singh DO; Dr. Allan Jc DO Signed Normal [facility] Absolute lymphocyte countOrd ered By: Allan Jc on 05-03-2025 Lymphocytes Auto (Unsp spec) [#/Vol] 1.81 10*3/uL 0.83-4.51 [facility] Absolute neutrophil countOrd ered By: Allan Jc on 05-03-2025 Neutrophils (Bld) [#/Vol] 8.9 10*3/uL High 2.0-7.7 [facility] Amphetamine detection with 1 000 ng/mL as cutoffOrdered By: Meseret Minor on 05-03-2025 Amphetamines Screen method >1000 ng/mL Ql (U) Negative < 200 ng/mL [facility] Anion gap in Serum or Plasma Ordered By: Allan Jc on 05-03-2025 Anion gap [Moles/Vol] 13 mmol/L 5-15 [facility] Automated lymphocyte count a s percentage of total leukocytesOrdered By: Allan Jc on 05-03-2025 Lymphocytes/100 WBC Auto (Unsp spec) 15.6 % Low 19-41 [facility] BUN/creatinine ratioOrdered By: Allan Jc on 05-03-2025 Urea nitrogen/Creatinine [Mass ratio] 6.9 mg/mg Low 10-20 [facility] Basic Metabolic Profile (BMP )on 05-03-2025 BUN/CRE 7.6 RATIO Low 10- [facility] Comment on above: Performed By: #### L 500.2500, L501.4021, L100.0100 #### [facility] [address] [place], [address] Calcium [Mass/Vol] 9.1 mg/dL Normal 7.6-11.0 [facility] Comment on above: Performed By: #### L 500.2500, L501.4021, L100.0100 #### [facility] [address] [place], [address] Chloride [Moles/Vol] 85 mmol/L Low 98-108 [facility] Comment on above: Performed By: #### L 500.2500, L501.4021, L100.0100 #### [facility] [address] [place], [address] CO2 [Moles/Vol] 22.2 mmol/L Normal 21.0-32.0 [facility] Comment on above: Performed By: #### L 500.2500, L501.4021, L100.0100 #### [facility] [address] [place], [address] Creatinine [Mass/Vol] 0.75 mg/dL Normal 0.70-1.20 [facility] Comment on above: Performed By: #### L 500.2500, L501.4021, L100.0100 #### [facility] [address] [place], [address] ECRCL 160.33 ml/min Normal 50-250 [facility] Comment on above: Performed By: #### L 500.2500, L501.4021, L100.0100 #### [facility] [address] [place], [address] GAP 12 Normal 5-15 [facility] Comment on above: Performed By: #### L 500.2500, L501.4021, L100.0100 #### [facility] [address] [place], [address] GFR/1.73 sq M.predicted among non-blacks MDRD (S/P/Bld) [Vol rate/Area] 107 mL/min/{1.73_m2} Normal >60 [facility] Comment on above: Result Comment: mL/m in/1.73m2 CKD-EPI Creatinine Equation (2020) Performed By: #### L 500.2500, L501.4021, L100.0100 #### [facility] [address] [place], [address] Glucose [Mass/Vol] 104 mg/dL High 70-99 [facility] Comment on above: Performed By: #### L 500.2500, L501.4021, L100.0100 #### [facility] [address] [place], [address] Potassium [Moles/Vol] 4.5 mmol/L Normal 3.3-5.1 [facility] Comment on above: Performed By: #### L 500.2500, L501.4021, L100.0100 #### [facility] [address] [place], [address] Sodium [Moles/Vol] 119 mmol/L Invalid Interpretation Code 133145 [facility] Comment on above: Result Comment: Crit ical Result(s) Called at: 05/03/2025-21:28 by: Cuba Varela to Jolly Worthington.??Results read back by same. Performed By: #### L 500.2500, L501.4021, L100.0100 #### [facility] [address] [place], [address] Urea nitrogen [Mass/Vol] 6 mg/dL Normal 4-19 [facility] Comment on above: Performed By: #### L 500.2500, L501.4021, L100.0100 #### [facility] [address] [place], [address] BUN/CRE 6.9 RATIO Low 10-20 [facility] Comment on above: Performed By: #### L 500.2500, L501.4021, L100.0100 #### [facility] [address] [place], [address] Calcium [Mass/Vol] 9.1 mg/dL Normal 7.6-11.0 [facility] Comment on above: Performed By: #### L 500.2500, L501.4021, L100.0100 #### [facility] [address] [place], [address] Chloride [Moles/Vol] 84 mmol/L Low 98-108 [facility] Comment on above: Performed By: #### L 500.2500, L501.4021, L100.0100 #### [facility] [address] [place], [address] CO2 [Moles/Vol] 21.4 mmol/L Normal 21.0-32.0 [facility] Comment on above: Performed By: #### L 500.2500, L501.4021, L100.0100 #### [facility] [address] [place], [address] Creatinine [Mass/Vol] 0.74 mg/dL Normal 0.70-1.20 [facility] Comment on above: Performed By: #### L 500.2500, L501.4021, L100.0100 #### [facility] [address] [place], [address] ECRCL 162.50 ml/min Normal 50-250 [facility] Comment on above: Performed By: #### L 500.2500, L501.4021, L100.0100 #### [facility] [address] [place], [address] GAP 13 Normal 5-15 [facility] Comment on above: Performed By: #### L 500.2500, L501.4021, L100.0100 #### [facility] [address] [place], [address] GFR/1.73 sq M.predicted among non-blacks MDRD (S/P/Bld) [Vol rate/Area] 107 mL/min/{1.73_m2} Normal >60 [facility] Comment on above: Result Comment: mL/m in/1.73m2 CKD-EPI Creatinine Equation (2020) Performed By: #### L 500.2500, L501.4021, L100.0100 #### [facility] [address] [place], [address] Glucose [Mass/Vol] 113 mg/dL High 70-99 [facility] Comment on above: Performed By: #### L 500.2500, L501.4021, L100.0100 #### [facility] [address] [place], [address] Potassium [Moles/Vol] 4.5 mmol/L Normal 3.3-5.1 [facility] Comment on above: Performed By: #### L 500.2500, L501.4021, L100.0100 #### [facility] [address] [place], [address] Sodium [Moles/Vol] 119 mmol/L Invalid Interpretation Code 133-145 [facility] Comment on above: Result Comment: Crit ical Result(s) Called at: 1620 by: SARA to Adin MATA.??Results read back by same. Performed By: #### L 500.2500, L501.4021, L100.0100 #### [facility] [address] [place], [address] Urea nitrogen [Mass/Vol] 5 mg/dL Normal 4-19 [facility] Comment on above: Performed By: #### L 500.2500, L501.4021, L100.0100 #### [facility] [address] [place], [address] Basophil percentageOrdered B y: Allan Jc on 05-03-2025 Basophils/100 WBC (Bld) 0.5 % 0-1 [facility] Bilirubin Test strip Ql (U)O rdered By: Meseret Minor on 05-03-2025 Bilirubin Ql (U) Negative Negative [facility] CBC W/Diff, Automatedon Absolute Lymph 1.81 X10 3/uL Normal 0.83-4.51 [facility] Comment on above: Performed By: #### L 500.2500, L501.4021, L100.0100 #### [facility] [address] [place], [address] Absolute Neut 8.9 X10 3/uL High 2.0-7.7 [facility] Comment on above: Performed By: #### L 500.2500, L501.4021, L100.0100 #### [facility] [address] [place], [address] Basophils/100 WBC (Bld) 0.5 % Normal 0-1 [facility] Comment on above: Performed By: #### L 500.2500, L501.4021, L100.0100 #### [facility] [address] [place], [address] Eosinophils/100 WBC (Bld) 0.1 % Normal 0-5 [facility] Comment on above: Performed By: #### L 500.2500, L501.4021, L100.0100 #### [facility] [address] [place], [address] Erythrocyte distribution width (RBC) [Ratio] 12.6 % Normal 11.6-14.6 [facility] Comment on above: Performed By: #### L 500.2500, L501.4021, L100.0100 #### [facility] [address] [place], [address] Hematocrit (Bld) [Volume fraction] 41.1 % Normal 40-54 [facility] Comment on above: Performed By: #### L 500.2500, L501.4021, L100.0100 #### [facility] [address] [place], [address] Hemoglobin (Bld) [Mass/Vol] 14.8 g/dL Normal 13.0-16.5 [facility] Comment on above: Performed By: #### L 500.2500, L501.4021, L100.0100 #### [facility] [address] [place], [address] IG% 0.600 Normal 0.0-0.9 [facility] Comment on above: Result Comment: IG% - Immature Granulocytes (promyelocytes, myelocytes and metamyelocytes) > 1% indicates that a LEFT SHIFT is Present. Performed By: #### L 500.2500, L501.4021, L100.0100 #### [facility] [address] [place], [address] Lymphocytes/100 WBC (Bld) 15.6 % Low 19-41 [facility] Comment on above: Performed By: #### L 500.2500, L501.4021, L100.0100 #### [facility] [address] [place], [address] MCH (RBC) [Entitic mass] 29.2 pg Normal 27.0-32.0 [facility] Comment on above: Performed By: #### L 500.2500, L501.4021, L100.0100 #### [facility] [address] [place], [address] MCHC (RBC) [Mass/Vol] 36.0 g/dL Normal 32-36 [facility] Comment on above: Performed By: #### L 500.2500, L501.4021, L100.0100 #### [facility] [address] [place], [address] MCV (RBC) [Entitic vol] 81.2 fL Normal 80-94 [facility] Comment on above: Performed By: #### L 500.2500, L501.4021, L100.0100 #### [facility] [address] [place], [address] Monocytes/100 WBC (Bld) 6.7 % Normal 0-10 [facility] Comment on above: Performed By: #### L 500.2500, L501.4021, L100.0100 #### [facility] [address] [place], [address] Neutrophils/100 WBC (Bld) 76.5 % High 47-70 [facility] Comment on above: Performed By: #### L 500.2500, L501.4021, L100.0100 #### [facility] [address] [place], [address] Nucleated RBC (Bld) [#/Vol] 0 10*3/uL Normal 0-5 [facility] Comment on above: Performed By: #### L 500.2500, L501.4021, L100.0100 #### [facility] [address] [place], [address] Platelet mean volume (Bld) [Entitic vol] 9.0 fL Normal 6.2-12.0 [facility] Comment on above: Performed By: #### L 500.2500, L501.4021, L100.0100 #### [facility] [address] [place], [address] Platelets (Bld) [#/Vol] 313 10*3/uL Normal 150-450 [facility] Comment on above: Performed By: #### L 500.2500, L501.4021, L100.0100 #### [facility] [address] [place], [address] RBC (Bld) [#/Vol] 5.06 10*6/uL Normal 4.6-6.2 [facility] Comment on above: Performed By: #### L 500.2500, L501.4021, L100.0100 #### [facility] [address] [place], [address] RDW SD 37.1 fl Normal 35.1-43.9 [facility] Comment on above: Performed By: #### L 500.2500, L501.4021, L100.0100 #### [facility] [address] [place], [address] WBC (Bld) [#/Vol] 11.6 10*3/uL High 4.4-11.0 [facility] Comment on above: Performed By: #### L 500.2500, L501.4021, L100.0100 #### [facility] [address] [place], [address] Carbon dioxide, total [Moles /volume] in Central venous bloodOrdered By: Allan Jc on 05-03-2025 CO2 [Moles/Vol] 21.4 mmol/L 21.0-32.0 [facility] Chest PA and Lateralon 05-03 Chest PA and Lateral [facility] Imaging Services [address] [place] [address] Chest PA and Lateral MR#: [id number] Acct: [id number] Name: LYNNETTE GONG Rep #: [id number] : 1970 M 54 From: Agnes Degroot nd, MD PCP: UMAIR Taveras Status: REG ER Study: Chest PA and Lateral Date of Exam: 05/03/25 Exam# [id number] Ordering Dr: Allan Jc DO PROCEDURE: CHEST [...] Lateral IMPRESSION: NO ACUTE FINDINGS. Reading Location: [facility] CC: IMPLEMENTATION MANAGER-C Deborah Roa; Dr. Allan Jc DO Customer Service Administrator: Signed Normal [facility] Chloride assayOrdered By: Osiel Jc on 05-03-2025 Chloride [Moles/Vol] 84 mmol/L Low 98-108 [facility] Emergency Department Summary on 05-03-2025 Emergency Department Summary [facility] Medical Records Department [address] [place] [address] Emergency Department Summary 05/03/25 MR#: [id number] Acct: [id number] Name: LYNNETTE GONG Rep #: [id number] : 1970 54 From: Allan Jc DO [...] that he no longer has a headache. [facility] Medical History (Updated 05/03/25 @ 18:22 [...] following commands knew that he was at [facility] year is 2024 patient [facility] of [...] by radio (more content not included)... Normal [facility] Eosinophil percentageOrdered By: Allan Jc on 05-03-2025 Eosinophils/100 WBC (Bld) 0.1 % 0-5 [facility] Erythrocyte distribution wid th ratioOrdered By: Allan Jc on 05-03-2025 Erythrocyte distribution width (RBC) [Ratio] 12.6 % 11.6-14.6 [facility] Erythrocyte distribution wid th standard deviationOrdered By: Allan Jc on 05-03-2025 Erythrocyte distribution width (RBC) [Ratio] 37.1 fl 35.1-43.9 [facility] Free T3on 05-03-2025 Free T3 [Mass/Vol] 2.8 pg/mL Normal 2.18-3.98 [facility] Comment on above: Performed By: #### L 501.34549, L501.9520, L506.0400 ####[facility] [address] [place], [address] Free [id number] By: Allan silva on 05-03-2025 Free T3 [Mass/Vol] 2.8 pg/mL 2.18-3.98 [facility] Free T3 [Mass/Vol] 2.8 pg/mL 2.18-3.98 [facility] Glomerular filtration rate ( GFR) estimation/1.73 sq m using serum, plasma, or whole bOrdered By: Allan Jc on 05-03-2025 GFR/1.73 sq M.predicted among non-blacks MDRD (S/P/Bld) [Vol rate/Area] 107 mL/min/{1.73_m2} >60 [facility] Comment on above: mL/min/1.73m2 CKD-EP I Creatinine Equation (2020) H AND P Exam - Hospitaliston 05-03-2025 H&P Exam - Hospitalist [facility] Medical Records Department [address] [place] [address] H P Exam - Hospitalist 05/03/25 1806 MR#: [id number] Acct: [id number] Name: LYNNETTE GONG Rep #: [id number] : 1970 54 From: Meseret Minor DO PCP: UMAIR Taveras Status:ADM IN Location: [place] [id number] HPI - General General Date of Admission: 05/03/25 Date of Service: 05/03/25 Chief Complaint: Elevated blood pressure HPI Narrative LYNNETTE GONG, is a 54 M who presented to the emergency department [facility] on 05/03/2025 with the chief complaint [...] other Hematologic/Ly (more content not included)... Normal [facility] Hematocrit Auto (Bld) [Volum e fraction]Ordered By: Allan Jc on 05-03-2025 Hematocrit (Bld) [Volume fraction] 41.1 % 40-54 [facility] Hemoglobin A1con 05-03-2025 HbA1c (Bld) [Mass fraction] 6.0 % High <=5.6 [facility] Comment on above: Result Comment: Norm al < 5.7 % Prediabetic 5.7 - 6.4 % Diabetic >or= 6.5 % Please note range changes. Performed By: #### L 500.2500, L501.4021, L100.0100 #### [facility] [address] [place], [address] Hemoglobin A1c percentageOrd ered By: Allan Jc on 05-03-2025 HbA1c (Bld) [Mass fraction] 6.0 % High <5.7 [facility] Comment on above: Normal < 5.7 % Predi abetic 5.7 - 6.4 % Diabetic >or= 6.5 % Please note range changes. Hemoglobin measurementOrdere d By: Allan Jc on 05-03-2025 Hemoglobin (Bld) [Mass/Vol] 14.8 g/dL 13.0-16.5 [facility] Immature granulocytes/100 WB C Auto (Bld)Ordered By: Allan Jc on 05-03-2025 Immature granulocytes/100 WBC (Bld) 0.600 % 0.0-0.9 [facility] Comment on above: IG% - Immature Granu locytes (promyelocytes, myelocytes and metamyelocytes) > 1% indicates that a LEFT SHIFT is Present. Ketones Test strip Ql (U)Ord ered By: Meseret Minor on 05-03-2025 Ketones Ql (U) Negative Negative [facility] L499.0042on 05-03-2025 Trop T High Sen 9 ng/L Normal <=22 [facility] Comment on above: Performed By: #### L 499.0042 ####[facility] [address] [place], [address] L499.0043on 05-03-2025 Trop T High Sen 9 ng/L Normal <=22 [facility] Comment on above: Performed By: #### L 499.0043 #### [facility] [address] [place], [address] L501.4021on 05-03-2025 Trop T High Sen 9 ng/L Normal <=22 [facility] Comment on above: Performed By: #### L 500.2500, L501.4021, L100.0100 #### [facility] [address] [place], [address] L509.6002on 05-03-2025 CORTISOL 7.33 ug/dL Normal 2.68-10.50 [facility] Comment on above: Performed By: #### L 500.2500, L501.4021, L100.0100 #### [facility] [address] [place], [address] MCV (mean corpuscular volume ) determinationOrdered By: Allan Jc on 05-03-2025 MCV (RBC) [Entitic vol] 81.2 fL 80-94 [facility] Mean corpuscular hemoglobin (MCH) determinationOrdered By: Allan Jc on 05-03-2025 MCH (RBC) [Entitic mass] 29.2 pg 27.0-32.0 [facility] Mean corpuscular hemoglobin concentration (MCHC) determinationOrdered By: Allan Jc on 05-03-2025 MCHC (RBC) [Mass/Vol] 36.0 g/dL 32-36 [facility] Mean platelet volume determi nationOrdered By: Allan Jc on 05-03-2025 Platelet mean volume (Bld) [Entitic vol] 9.0 fL 6.2-12.0 [facility] Microscopic analysis of urin e for red blood cells (RBC)Ordered By: Meseret Minor on 05-03-2025 Microscopic analysis of urine for red blood cells (RBC) 0 SEEN /hpf 0-5 [facility] Monocyte percentageOrdered B y: Allan Jc on 05-03-2025 Monocytes/100 WBC (Bld) 6.7 % 0-10 [facility] Mucus LM Ql (Urine sed)Order ed By: Meseret Minor on 05-03-2025 Mucus Ql (Urine sed) 0 SEEN /hpf [facility] Neutrophil percentageOrdered By: Allan Jc on 05-03-2025 Neutrophils/100 WBC (Bld) 76.5 % High 47-70 [facility] Nitrite Test strip Ql (U)Ord ered By: Meseret Minor on 05-03-2025 Nitrite Ql (U) Negative Negative [facility] No Panel InformationOrdered By: Meseret Minor on 05-03-2025 Urine Buprenorphine Qualitative Negative < 200 ng/mL [facility] Urine Oxycodone Screen Negative < 100 ng/mL [facility] Nucleated red blood cell per centageOrdered By: Allan Jc on 05-03-2025 Nucleated RBC/100 WBC (Bld) [Ratio] 0 % 0-5 [facility] Osmolality urOrdered By: Magalie Minor on 05-03-2025 Osmolality (U) [Osmolality] 181 mOsm/KG >50 [facility] Comment on above: Normal Urine Referen ce Ranges Random: 50 - 1200 mOsm/kg H20 depending on fluid intake Random: >850 mOsm/kg after 12 hour fluid restriction 24 hour: ~300 - 900 mOsm/kg H2O Osmolality, Serumon 05-03-20 25 OSMOLALITY,SER 253 mOsm/KG Low 275-295 [facility] Comment on above: Performed By: #### L 500.2500, L501.4021, L100.0100 #### [facility] [address] [place] [address], [id number] Platelet countOrdered By: Osiel Jc on 05-03-2025 Platelets (Bld) [#/Vol] 313 10*3/uL 150-450 [facility] Potassium measurement (mass/ volume)Ordered By: Allan Jc on 05-03-2025 Potassium (Unsp spec) [Mass/Vol] 4.5 mmol/L 3.3-5.1 [facility] Protein Test strip Ql (U)Ord ered By: Meseret Minor on 05-03-2025 Protein Ql (U) 15 mg/dl High Negative [facility] Quantitative urine opiates m easurementOrdered By: Meseret Minor on 05-03-2025 Opiates Ql (U) Negative < 300 ng/mL [facility] RBC Auto (Bld) [#/Vol]Ordere d By: Allan Jc on 05-03-2025 RBC (Bld) [#/Vol] 5.06 10*6/uL 4.6-6.2 [facility] Screening urine fentanyl cem surementOrdered By: Meseret Minor on 05-03-2025 fentaNYL Screen Ql (U) Negative [facility] Serum creatinine measurement (mass/volume)Ordered By: Allan Jc on 05-03-2025 Creatinine [Mass/Vol] 0.74 mg/dL 0.70-1.20 [facility] Serum glucose measurement (m ass/volume)Ordered By: Allan Jc on 05-03-2025 Glucose [Mass/Vol] 113 mg/dL High 70-99 [facility] Serum or plasma calcium pepe urement (mass/volume)Ordered By: Allan Jc on 05-03-2025 Calcium [Mass/Vol] 9.1 mg/dL 7.6-11.0 [facility] Serum or plasma cortisol cem surement (mass/volume)Ordered By: Meseret Minor on 05-03-2025 Cortisol [Mass/Vol] 7.33 ug/dL 2.68-10.50 [facility] Serum or plasma urea nitroge n measurement (mass/volume)Ordered By: Allan Jc on 05-03-2025 Urea nitrogen [Mass/Vol] 5 mg/dL 4-19 [facility] Serum or plasma uric acid me asurement (mass/volume)Ordered By: Meseret Minor on 05-03-2025 Urate [Mass/Vol] 3.1 mg/dL Low 3.5-7.2 [facility] Comment on above: The drugs N-Acetylcy steine and Metamizole may falsely depress this assay. Sodium levelOrdered By: Michael Jc on 05-03-2025 Sodium [Moles/Vol] 119 mmol/L Low 133-145 [facility] Comment on above: Critical Result(s) C alled at: 1620 by: SARA Oakley RN. Results read back by same. Squamous epithelial cells de tection in urine sediment by light microscopyOrdered By: Meseret Minor on 05-03-2025 Epithelial cells.squamous LM Ql (Urine sed) 0 SEEN /hpf 0-5 [facility] T4 Free Directon 05-03-2025 T4 FREE DIRECT 1.30 ng/dL Normal 0.76-1.46 [facility] Comment on above: Performed By: #### L 501.03564, L501.9520, L506.0400 ####[facility] [address] [place], [place], [id number] T4 freeOrdered By: Allan silva on 05-03-2025 Free T4 [Mass/Vol] 1.30 ng/dL 0.76-1.46 [facility] Free T4 [Mass/Vol] 1.30 ng/dL 0.76-1.46 [facility] TSH DL <= 0.005 mIU/L QnOrde red By: Meseret Minor on 05-03-2025 TSH Qn 0.950 uIU/mL 0.300-4.200 [facility] TSH DL <= 0.005 mIU/L QnOrde red By: Allan Jc on 05-03-2025 TSH Qn 1.050 uIU/mL 0.300-4.200 [facility] Thyroid Stim Hormone (TSH)on 05-03-2025 TSH 0.950 uIU/mL Normal 0.300-4.200 [facility] Comment on above: Performed By: #### L 500.2500, L501.4021, L100.0100 #### [facility] [address] [place], [place], [id number] TSH 1.050 uIU/mL Normal 0.300-4.200 [facility] Comment on above: Performed By: #### L 501.82415, L501.9520, L506.0400 ####[facility] [address] [place], [address] Troponin T.cardiac [Mass/vol ume] in Serum or Plasma by High sensitivity methodOrdered By: Allan Jc on 05-03-2025 Troponin T.cardiac High sensitivity method [Mass/Vol] 9 ng/L <22 [facility] Troponin T.cardiac High sensitivity method [Mass/Vol] 9 ng/L <22 [facility] Troponin T.cardiac High sensitivity method [Mass/Vol] 9 ng/L <22 [facility] Uric Acidon 05-03-2025 URIC 3.1 mg/dL Low 3.5-7.2 [facility] Comment on above: Result Comment: The drugs N-Acetylcysteine and Metamizole may falsely depress this assay. Performed By: #### L 500.2500, L501.4021, L100.0100 #### [facility] [address] [place], [address] Urinalysis, Completeon 05-03 BACTERIA 0 SEEN Normal None Seen [facility] Comment on above: Order Comment: CLEAN CATCH Performed By: #### L 500.2500, L501.4021, L100.0100 #### [facility] [address] [place], [address] EPI,SQUAMOUS 0 SEEN Normal 0-5 [facility] Comment on above: Order Comment: CLEAN CATCH Performed By: #### L 500.2500, L501.4021, L100.0100 #### [facility] [address] [place], [address] Mucus Ql (Urine sed) 0 SEEN Normal [facility] Comment on above: Order Comment: CLEAN CATCH Performed By: #### L 500.2500, L501.4021, L100.0100 #### [facility] [address] [place], [address] RBC 0 SEEN Normal 0-5 [facility] Comment on above: Order Comment: CLEAN CATCH Performed By: #### L 500.2500, L501.4021, L100.0100 #### [facility] [address] [place], [address] WBC 0 SEEN Normal 0-5 [facility] Comment on above: Order Comment: CLEAN CATCH Performed By: #### L 500.2500, L501.4021, L100.0100 #### [facility] [address] [place], [address] Urine benzodiazepine levelOr dered By: Meseret Minor on 05-03-2025 Benzodiazepines Ql (U) Negative < 200 ng/mL [facility] Urine clarityOrdered By: Magalie Minor on 05-03-2025 Clarity (U) Clear Clear [facility] Urine cocaine levelOrdered B y: Meseret Minor on 05-03-2025 Cocaine Ql (U) Negative < 300 ng/mL [facility] Urine color determinationOrd ered By: Meseret Minor on 05-03-2025 Color (U) Yellow Yellow [facility] Urine yclfx-6-arqhlgmgbujlyy abinol (THC) measurementOrdered By: Meseret Minor on 05-03-2025 Cannabinoids Screen Ql (U) Negative < 50 ng/mL [facility] Urine glucose detectionOrder ed By: Meseret Minor on 05-03-2025 Glucose Ql (U) Normal mg/dl Normal [facility] Urine leukocyte esterase det ection by dipstickOrdered By: Meseret Minor on 05-03-2025 Leukocyte esterase Test strip Ql (U) Negative Negative [facility] Urine pHOrdered By: Meseret Minor on 05-03-2025 pH (U) 7.0 [pH] 5.0 - 8.0 [facility] Urine phencyclidine (PCP) de tectionOrdered By: Meseret Minor on 05-03-2025 Phencyclidine Ql (U) Negative < 25 ng/mL [facility] Urine sediment bacteria coun t by microscopy (number/high power field)Ordered By: Meseret Minor on 05-03-2025 Bacteria LM.HPF (Urine sed) [#/Area] 0 /[HPF] None Seen [facility] Urine sodium measurement (mo les/volume)Ordered By: Meseret Minor on 05-03-2025 Sodium (U) [Moles/Vol] 33 mmol/L Not Establ. [facility] Urine specific gravity measu rementOrdered By: Meseret Minor on 05-03-2025 Specific gravity (U) [Rel density] 1.010 1.002-1.030 [facility] Urine urobilinogen measureme ntOrdered By: Meseret Minor on 05-03-2025 Urobilinogen Ql (U) Normal mg/dl Normal [facility] White blood cell (WBC) count Ordered By: Allan Jc on 05-03-2025 WBC (Bld) [#/Vol] 11.6 10*3/uL High 4.4-11.0 [facility] White blood cell countOrdere d By: Meseret Minor on 05-03-2025 White blood cell count 0 SEEN /hpf 0-5 [facility] Absolute lymphocyte countOrd ered By: Suzette Jay on 02-04-2024 Lymphocytes Auto (Unsp spec) [#/Vol] 2.33 10*3/uL 0.83-4.51 [facility] Automated lymphocyte count a s percentage of total leukocytesOrdered By: Suzette Jay on 02-04-2024 Lymphocytes/100 WBC Auto (Unsp spec) 15.5 % 19-41 [facility] Basophil percentageOrdered B y: Suzette Jay on 02-04-2024 Basophils/100 WBC (Bld) 0.8 % 0-1 [facility] Chloride [Moles/Vol] 102 mmol/L 98-107 [facility] Eosinophils/100 WBC (Bld) 0.1 % 0-5 [facility] Glucose [Mass/Vol] 99 mg/dL 74-106 [facility] Hemoglobin (Bld) [Mass/Vol] 16.0 g/dL 13.0-16.5 [facility] Monocytes/100 WBC (Bld) 10.0 % 0-10 [facility] Neutrophils (Bld) [#/Vol] 11.0 10*3/uL 2.0-7.7 [facility] Neutrophils/100 WBC (Bld) 73.1 % 47-70 [facility] Potassium [Moles/Vol] 3.8 mmol/L 3.5-5.1 [facility] Sodium [Moles/Vol] 138 mmol/L 136-145 [facility] WBC (Bld) [#/Vol] 15.0 10*3/uL 4.4-11.0 [facility] Determination of erythrocyte mean corpuscular volume (MCV)Ordered By: Suzette Jay on 02-04-2024 MCV (RBC) [Entitic vol] 86.6 fL 80-94 [facility] Erythrocyte distribution wid th ratioOrdered By: Suzette Jay on 02-04-2024 Erythrocyte distribution width (RBC) [Ratio] 13.0 % 11.6-14.6 [facility] Erythrocyte distribution wid th standard deviationOrdered By: Suzette Jay on 02-04-2024 Erythrocyte distribution width (RBC) [Entitic vol] 40.7 fL 35.1-43.9 [facility] Hematocrit Auto (Bld) [Volum e fraction]Ordered By: Suzette Jay on 02-04-2024 Hematocrit (Bld) [Volume fraction] 46.5 % 40-54 [facility] Immature granulocytes/100 WB C Auto (Bld)Ordered By: Suzette Jay on 02-04-2024 Immature granulocytes/100 WBC (Bld) 0.500 % 0.0-0.9 [facility] Comment on above: IG% - Immature Granu locytes (promyelocytes, myelocytes and metamyelocytes) > 1% indicates that a LEFT SHIFT is Present. Laboratory - Chemistry and C hemistry - challengeOrdered By: Suzette aJy on 02-04-2024 CO2 [Moles/Vol] 25.0 mmol/L 21.0-32.0 [facility] Urea nitrogen/Creatinine [Mass ratio] 10.5 mg/mg 10- [facility] - Drug toxicology Ordered By: Suzette Jay on 02-04-2024 Amphetamines Ql (U) Positive <1000 ng/mL [facility] Benzodiazepines Ql (U) Negative < 200 ng/mL [facility] Cannabinoids Screen Ql (U) Negative < 50 ng/mL [facility] Cocaine Ql (U) Negative < 300 ng/mL [facility] Opiates Ql (U) Negative < 300 ng/mL [facility] Laboratory - Hematology and Cell countsOrdered By: Suzette Jay on 02-04-2024 MCH (RBC) [Entitic mass] 29.8 pg 27.0-32.0 [facility] MCHC (RBC) [Mass/Vol] 34.4 g/dL 32-36 [facility] Nucleated RBC/100 WBC (Bld) [Ratio] 0 % 0-5 [facility] Platelet mean volume (Bld) [Entitic vol] 10.6 fL 6.2-12.0 [facility] Platelets (Bld) [#/Vol] 298 10*3/uL 150-450 [facility] No Panel InformationOrdered By: Suzette Jay on 02-04-2024 Estimated Creatinine Clearance Calc 122.02 ml/min [facility] Estimated GFR (MDRD) Amer 106 mL/min >60 [facility] Comment on above: GFR Calc Estimated GFR (MDRD) Non-Af Amer 87 mL/min >60 [facility] Comment on above: Non- GFR Calc Ethyl Alcohol Level < 3.0 mg/dL [facility] Comment on above: The serum:whole bloo d ethanol ratio is approximately 1.14and varies slightly with hematocrit. Medical Alcohol reference interval and critical value innon-tolerant individuals; 50 - 100 Impairment 100 Intoxication 100 - 250 Severe Poisoning 250 - 400 Deep/possible fatal coma MDMA (Ecstasy) Screen Positive < 500 ng/mL [facility] Urine Barbiturates Screen Negative < 200 ng/mL [facility] Urine Drug Screen Comment [facility] Comment on above: CONFIRMATORY TESTING FOR [...] Methadone Screen Negative < 300 ng/mL [facility] RBC Auto (Bld) [#/Vol]Ordere d By: Suzette Jay on 02-04-2024 RBC (Bld) [#/Vol] 5.37 10*6/uL 4.6-6.2 [facility] Serum or plasma calcium pepe urement (mass/volume)Ordered By: Suzette Jay on 02-04-2024 Calcium [Mass/Vol] 9.0 mg/dL 8.5-10.1 [facility] Serum or plasma creatinine m easurement (mass/volume)Ordered By: Suzette Jay on 02-04-2024 Creatinine [Mass/Vol] 0.95 mg/dL 0.70-1.30 [facility] Comment on above: The validity of the calculated GFR & GFRAA in patients over 70 years has not been determined. Clinical correlation is essential. Serum or plasma urea nitroge n measurement (mass/volume)Ordered By: Suzette Jay on 02-04-2024 Urea nitrogen [Mass/Vol] 10 mg/dL 7-18 [facility] Thin prep Papanicolaou smear with manual screeningOrdered By: Suzette Jay on 02-04-2024 Thin prep Papanicolaou smear with manual screening 11 5-15 [facility] Urine phencyclidine (PCP) de tectionOrdered By: Suzette Jay on 02-04-2024 Phencyclidine Ql (U) Negative < 25 ng/mL [facility] BNPon 11-15-2022 Natriuretic peptide B (Bld) [Mass/Vol] 109 pg/mL High 0 - 99 [facility] Comment on above: Result Comment: . <1 00 pg/mL - Heart failure unlikely 100-299 pg/mL - Intermediate probability of acute heart . failure exacerbation. Correlate with clinical . context and patient history. >=300 pg/mL - Heart Failure likely. Correlate with clinical . context and patient history. BNP testing is performed using different testing methodology at [facility] than at other [place]. Direct result comparisons should only be made within the same method. Performed By: #### B NP2 #### [place] [id number] CBC AND DIFFERENTIALon 11-15 % AUTOMATED IMMATURE GRAN 0.4 % Normal 0.0 - 0.9 [facility] Comment on above: Result Comment: Hanna ture Granulocyte Count (IG) includes promyelocytes, myelocytes and metamyelocytes but does not include bands. Percent differential counts (%) should be interpreted in the context of the absolute cell counts (cells/L). Performed By: #### C BCDF #### [address] [address] Basophils (Bld) [#/Vol] 0.02 10*3/uL Normal 0.00 - 0.1 0 [place] Comment on above: Performed By: #### C BCDF #### [address] [address] Basophils/100 WBC (Bld) 0.1 % Normal 0.0 - 2.0 [facility] Comment on above: Performed By: #### C BCDF #### [address] [address] Lymphocytes (Bld) [#/Vol] 1.94 10*3/uL Normal 1.20 - 4.80 [place] Comment on above: Performed By: #### C BCDF #### [place] [address] Lymphocytes/100 WBC (Bld) 14.5 % Normal 13.0 - 44.0 [facility] Comment on above: Performed By: #### C BCDF #### [address] [address] Monocytes (Bld) [#/Vol] 1.27 10*3/uL High 0.10 - 1.0 0 [place] Comment on above: Performed By: #### C BCDF #### [place] [address] Monocytes/100 WBC (Bld) 9.5 % Normal 2.0 - 10.0 [place] Comment on above: Performed By: #### C BCDF #### [address] [address] Neutrophils (Bld) [#/Vol] 10.08 10*3/uL High 1.20 - 7.70 [facility] Comment on above: Performed By: #### C BCDF #### [address] [address] Neutrophils/100 WBC (Bld) 75.5 % Normal 40.0 - 80.0 [place] Comment on above: Performed By: #### C BCDF #### [address] [address] Erythrocyte distribution width (RBC) [Ratio] 13.5 % Normal 11.5 - 14.5 [place] Comment on above: Performed By: #### C BCDF #### [address] [address] Hematocrit (Bld) [Volume fraction] 39.4 % Low 41.0 - 52.0 [place] Comment on above: Performed By: #### C BCDF #### [address] [address] Hemoglobin (Bld) [Mass/Vol] 13.9 g/dL Normal 13.5 - 17.5 [place] Comment on above: Performed By: #### C BCDF #### [address] [address] MCHC (RBC) [Mass/Vol] 35.3 g/dL Normal 32.0 - 36.0 [place] Comment on above: Performed By: #### C BCDF #### [place] [id number] MCV (RBC) [Entitic vol] 84 fL Normal 80 - 100 [facility] Comment on above: Performed By: #### C BCDF #### [address] [address] Platelets (Bld) [#/Vol] 225 10*3/uL Normal 150 - 450 [facility] Comment on above: Performed By: #### C BCDF #### [address] [address] RBC 4.68 x10E12/L Normal 4.50 - 5.90 [place] Comment on above: Performed By: #### C BCDF #### [address] [address] WBC (Bld) [#/Vol] 13.4 10*3/uL High 4.4 - 11.3 [place] Comment on above: Performed By: #### C BCDF #### [address] [address] COMPREHENSIVE PANELon 2021 Albumin [Mass/Vol] 3.9 g/dL Normal 3.4 - 5.0 [place] Comment on above: Performed By: #### C MP #### [address] [address] ALP [Catalytic activity/Vol] 57 U/L Normal 33 - 120 [place] Comment on above: Performed By: #### C MP #### [address] [address] ALT [Catalytic activity/Vol] 21 U/L Normal 10 - 52 [facility] Comment on above: Result Comment: Suly ents treated with Sulfasalazine may generate falsely decreased results for ALT. Performed By: #### C MP #### [address] [address] Anion gap [Moles/Vol] 14 mmol/L Normal 10 - 20 [place] [facility] Comment on above: Performed By: #### C MP #### [address] [address] AST [Catalytic activity/Vol] 51 U/L High 9 - 39 [place] Comment on above: Performed By: #### C MP #### [address] [address] Bilirubin [Mass/Vol] 0.9 mg/dL Normal 0.0 - 1.2 [place] Comment on above: Performed By: #### C MP #### [address] [address] Calcium [Mass/Vol] 8.8 mg/dL Normal 8.6 - 10.3 [place] Comment on above: Performed By: #### C MP #### [address] [address] Chloride [Moles/Vol] 95 mmol/L Low 98 - 107 [place] Comment on above: Performed By: #### C MP #### [address] [address] Creatinine [Mass/Vol] 0.93 mg/dL Normal 0.50 - 1.30 [place] Comment on above: Performed By: #### C MP #### [address] [address] eGFR MALE >90 Normal >90 [place] Comment on above: Result Comment: CALC ULATIONS OF ESTIMATED GFR ARE PERFORMED USING THE 2020 CKD-EPI STUDY REFIT EQUATION WITHOUT THE RACE VARIABLE FOR THE IDMS-TRACEABLE CREATININE METHODS. https://jasn.asnjournals.org/content//ASN.2020 915742 Performed By: #### C MP #### [address] [address] Glucose [Mass/Vol] 120 mg/dL High 74 - 99 [place] Comment on above: Performed By: #### C MP #### [address] [address] HCO3 (Bld) [Moles/Vol] 27 mmol/L Normal 21 - 32 [place] Comment on above: Performed By: #### C MP #### [address] [address] Potassium [Moles/Vol] 3.3 mmol/L Low 3.5 - 5.3 [place] [facility] Comment on above: Performed By: #### C MP #### [address] [address] Protein [Mass/Vol] 7.4 g/dL Normal 6.4 - 8.2 [place] Comment on above: Performed By: #### C MP #### [address] [address] Sodium [Moles/Vol] 133 mmol/L Low 136 - 145 [place] Comment on above: Performed By: #### C MP #### [address] [address] Urea nitrogen [Mass/Vol] 8 mg/dL Normal 6 - 23 [place] Comment on above: Performed By: #### C #### [facility] [address] [place] [address] Covid 19 Resultson 2 SARS-CoV-2 (COVID-19) RNA [...] You may also be contacted by the [facility] to see if any of [...] or Naproxen (Aleve) can also be used. Lisb-kti-otrrgxp cough and cold medicines can be used according to the instructions on the package. Some djvp-kca-qikqibl medicines also contain acetaminophen. Make sure you [...] water are not available, use alcohol-based hand body and fender mechanic. Avoid touching your eyes, nose, and mouth [...] 24 dallin (more content not included)... Normal [facility] EMR ADDONon 11-15-2022 ADDON CONFIRMATION REQUEST REC'D [facility] Comment on above: Performed By: #### C OINP #### [place] [address] INFLUENZA A/B, COVID 2019 PC R,SYMPTOMATICon 11-15-2022 INFLUENZA A, PCR Detected Abnormal Not Detected [facility] Comment on above: Result Comment: Resp iratory virus testing is performed routinely by PCR for Influenza A/B and RSV. Not Detected results do not preclude Influenza A/B or RSV infections since the adequacy of sample collection or low viral burden may impact the clinical sensitivity of this test method. Performed By: #### C OINP #### [place] [address] INFLUENZA B, PCR Not detected Normal Not Detected [facility] Comment on above: Result Comment: Resp iratory virus testing is performed routinely by PCR for Influenza A/B and RSV. Not Detected results do not preclude Influenza A/B or RSV infections since the adequacy of sample collection or low viral burden may impact the clinical sensitivity of this test method. Performed By: #### C OINP #### [place] [address] Lab Specimen Source Nasal, Nasopharyngeal Normal [facility] Comment on above: Performed By: #### C OINP #### [place] [address] SARS-CoV-2 (COVID-19) RNA LEROY+probe Ql (Unsp spec) Not detected Normal Not Detected [facility] Comment on above: Result Comment: . This test has received FDA Emergency Use Authorization (EUA) and has been verified by [facility]. This test is only authorized for the duration of time that circumstances exist to justify the authorization of the emergency use of in vitro diagnostic tests for the detection of SARS-CoV-2 virus and/or diagnosis of COVID-19 infection under section 564(b)(1) of the Act, 21 U.S.C. 360bbb-3(b)(1), unless the authorization is terminated or revoked sooner. [facility] is certified under CLIA-88 as qualified to perform high complexity testing. Testing is performed in the [facility] laboratory located at [address] [place] [address]. SARS-CoV-2/Flu/RSV Multiplex Test: Fact sheet for providers: https://www.fda.gov/media/346545/download Fact sheet for patients: https://www.fda.gov/media/669329/download Performed By: #### C OINP #### [place] [address] PT/INRon 11-15-2022 PT Coag (PPP) [Time] 14.2 s High 9.8 - 13.4 [facility] Comment on above: Performed By: #### P TINR #### [place] [address] PT, INR 1.2 High 0.9 - 1.1 [place]/[facility] Comment on above: Performed By: #### P TINR #### [place] [address] Provider Note - ED v3on 10-28 Provider [...] limitation. No acute ST elevation is identified. DE interval is 171 and QTc is 460. [...] 13.9 Anion (more content not included)... Normal [facility] RED CELL MORPHOLOGYon 2021 RBC morphology finding Nom (Bld) SEE COMMENT Normal [facility] Comment on above: Result Comment: NO S IGNIFICANT RBC ABNORMALITIES SEEN ON SMEAR REVIEW. Performed By: #### M ORP2 #### [facility] [address] [place] [address] TROPONIN I, HIGH SENSITIVITY on 11-15-2022 TROPONIN I, HIGH SENSITIVITY Canceled Normal [facility] Comment on above: Order Comment: TEST TROPONIN [...] performed using a different testing methodology at [facility] than at other [facility]. Direct result comparisons should only be made within the same method. Performed By: #### C OINP #### [facility] [address] [place] [id number] TROPONIN I, HIGH SENSITIVITY 14 ng/L Normal 0 - 20 [facility] Comment on above: Result Comment: . Less [...] performed using a different testing methodology at [facility] than at other [facility]. Direct result comparisons should only be made within the same method. Performed By: #### T [facility] #### [facility] [address] [place] [address] Triage - EDon 11-15-2022 Triage - ED Quick Triage: The patient and/or guardian verbally acknowledges placement for services into the following (when Urgent Care Service hours are operating):emergency department Chart Review: ARRIVAL INFORMATION Means of Arrival: Ambulatory Mode of Arrival: private vehicle Arrival From: home Accompanied By: self Language: Spoken Language Preferred: Palestinian Reading Language Preferred: Palestinian CHIEF COMPLAINT LYNNETTE GONG is a Male [...] 14-Nov-2022 22:36 by Dana Aguirre (RN) Normal [place] UA MICROSCOPICon 11-15-2022 RBC 4 /HPF Normal 0-5 [facility] Comment on above: Performed By: #### U AMIC #### [address] [address] WBC 2 /HPF Normal 0-5 [place] Comment on above: Performed By: #### U AMIC #### [address] [address] URINALYSISon 11-15-2022 Appearance (U) Clear Normal CLEAR [place]/[facility] Comment on above: Performed By: #### C OINP #### [address] [address] Bilirubin Ql (U) Negative Normal NEGATIVE [place] /[facility] Comment on above: Performed By: #### C OINP #### [address] [address] Color (U) Yellow Normal STRAW,YELLO W [place] Comment on above: Performed By: #### C OINP #### [address] [address] Glucose Ql (U) Negative Normal NEGATIVE [place]/[facility] Comment on above: Performed By: #### C OINP #### [address] [address] Hemoglobin Ql (U) SMALL(1+) Abnormal NEGATIVE [facility] Comment on above: Performed By: #### C OINP #### [address] [address] Ketones Ql (U) 5(Trace) mg/dl Abnormal NEGATIVE [place]/[facility] Comment on above: Performed By: #### C OINP #### [address] [address] Leukocyte esterase Test strip Ql (U) Negative Normal NEGATIVE [place] Comment on above: Performed By: #### C OINP #### [address] [address] Nitrite Ql (U) Negative Normal NEGATIVE [place] Comment on above: Performed By: #### C OINP #### [address] [address] pH (U) 6.0 [pH] Normal 5.0 - 8.0 [place] Comment on above: Performed By: #### C OINP #### [address] [address] Protein Ql (U) 100(2+) Abnormal NEGATIVE [place] Comment on above: Performed By: #### C OINP #### [address] [address] Specific gravity (U) [Rel density] 1.021 Normal 1.005 - 1.035 [place] Comment on above: Performed By: #### C OINP #### [address] [address] Urobilinogen (U) [Mass/Vol] 4.0 mg/dL High 0.0 - 1.9 [place] Comment on above: Result Comment: SOME PIGMENTS AND MEDICATIONS MAY CAUSE A FALSE POSITIVE UROBILINOGEN Performed By: #### C OINP #### [address] [address] VENOUS FULL PANELon 12-20-20 22 Anion gap [Moles/Vol] 12 mmol/L Normal 10 - 25 Josh inson/[facility] Comment on above: Performed By: #### V FPA4 #### [address] [address] BASE EXCESS-BLOOD 3.2 mmol/L High -2.0 - 3.0 [facility] n/[facility] Comment on above: Performed By: #### V FPA4 #### [address] [address] BICARB, CALCULATED 28.5 mmol/L High 22.0 - 26.0 [facility] Comment on above: Performed By: #### V FPA4 #### [place] [address] CALCIUM,IONIZED 1.13 mmol/L Normal 1.10 - 1.33 [facility] n/[facility] Comment on above: Performed By: #### V FPA4 #### [address] [address] Chloride [Moles/Vol] 94 mmol/L Low 98 - 107 [place] [facility] Comment on above: Performed By: #### V FPA4 #### [address] [address] Glucose [Mass/Vol] 128 mg/dL High 74 - 99 [place] [facility] Comment on above: Performed By: #### V FPA4 #### [address] [address] Hematocrit (Bld) [Volume fraction] 42.0 % Normal 41.0 - 52.0 [place] Comment on above: Performed By: #### V FPA4 #### [address] [address] Hemoglobin (Bld) [Mass/Vol] 13.9 g/dL Normal 13.5 - 17.5 [place] Comment on above: Performed By: #### V FPA4 #### [address] [address] Lactate [Moles/Vol] 1.1 mmol/L Normal 0.4 - 2.0 [place] son/[facility] Comment on above: Performed By: #### V FPA4 #### [address] [address] OXY HGB 51.7 % Normal 45.0 - 75.0 [place] Comment on above: Performed By: #### V FPA4 #### [address] [address] Oxygen (Bld) [Partial pressure] 31 mm[Hg] Low 35 - 45 [place] Comment on above: Performed By: #### V FPA4 #### [address] [address] PATIENT TEMPERATURE 37.0 degrees C Normal [place]/[facility] Comment on above: Result Comment: NOTE : PATIENT RESULTS ARE NOT CORRECTED FOR TEMPERATURE. Performed By: #### V FPA4 #### [address] [address] PCO2 45 mmHg Normal 41 - 51 [place] Comment on above: Performed By: #### V FPA4 #### [address] [address] pH (Bld) 7.41 [pH] Normal 7.33 - 7.43 [place] Comment on above: Performed By: #### V FPA4 #### [address] [address] Potassium [Moles/Vol] 3.2 mmol/L Low 3.5 - 5.3 Josh inson/[facility] Comment on above: Performed By: #### V FPA4 #### [address] [address] SO2 53 % Normal 45 - 75 [place] Comment on above: Performed By: #### V FPA4 #### [address] [address] Sodium [Moles/Vol] 131 mmol/L Low 136 - 145 [place]/[facility] Comment on above: Performed By: #### V FPA4 #### [address] [address] Vital Signs Date Time Vital Sign Value Performing Clinician Adrianne block 09-17-2025 14:05-0400 Body temperature 97.2 [degF] Deborah Crispin IMPLEMENTATION MANAGER-C Work Phone: [facility] 09-17-2025 14:05-0400 Diastolic blood pressure 92 mm[Hg] Deborah Crispin IMPLEMENTATION MANAGER-C Work Phone: [facility] 09-17-2025 14:05-0400 Heart rate 67 /min Deborah Crispin IMPLEMENTATION MANAGER-C Work Phone: [facility] 09-17-2025 14:05-0400 Respiratory rate 16 /min Deborah Crispin IMPLEMENTATION MANAGER-C Work Phone: [facility] 09-17-2025 14:05-0400 SaO2% (BldA) [Mass fraction] 99 % Deborah Crispin IMPLEMENTATION MANAGER-C Work Phone: [facility] 09-17-2025 14:05-0400 Systolic blood pressure 162 mm[Hg] Deborah Crispin IMPLEMENTATION MANAGER-C Work Phone: [facility] 09-17-2025 12:52-0400 Body height 170.18 cm Deborah Crispin IMPLEMENTATION MANAGER-C Work Phone: [facility] 09-17-2025 12:52-0400 Body mass index (BMI) [Ratio] 45.6 kg/m2 Deborah Crispin IMPLEMENTATION MANAGER-C Work Phone: [facility] 09-17-2025 12:52-0400 Body weight 132 kg Deborah Crispin IMPLEMENTATION MANAGER-C Work Phone: [facility] 08-14-2025 09:48-0400 Body height 170.[address] Allan Jc DO Work Phone: 1(293)229-457964 [place] [address] 08-14-2025 09:48-0400 Body temperature 96.1 [degF] Dr. Allan Jc DO Work Phone: 0(976)185-701464 [place] [address] 08-14-2025 09:48-0400 Diastolic blood pressure 71 mm[Hg] Dr. Allan Jc DO Work Phone: 3(020)244-486364 [place] [address] 08-14-2025 09:48-0400 Heart rate 67 /min Dr. Allan Jc DO Work Phone: 4(449)246-512864 [place] [address] 08-14-2025 09:48-0400 Respiratory rate 18 /min Dr. Allan Jc DO Work Phone: 7(289)587-266167 [address] 08-14-2025 09:48-0400 SaO2% (BldA) [Mass fraction] 97 % Dr. Allan Jc DO Work Phone: 0(398)517-409764 [place] [address] 08-14-2025 09:48-0400 Systolic blood pressure 142 mm[Hg] Dr. Allan Jc DO Work Phone: 6(452)537-662564 [place] [address] 08-11-2025 14:40-0400 Body height 170.[address] Allan Jc DO Work Phone: 1(419)767-173864 [place] [address] 08-11-2025 14:40-0400 Body mass index (BMI) [Ratio] 47.6 kg/m2 Dr. Allan Jc DO Work Phone: 3(315)189-816064 [place] [address] 08-11-2025 14:40-0400 Body temperature 98.8 [degF] Dr. Allan Jc DO Work Phone: 0(031)873-129864 [place] [address] 08-11-2025 14:40-0400 Body weight [address] Allan Jc DO Work Phone: 6(156)416-578164 [place] [address] 08-11-2025 14:40-0400 Diastolic blood pressure 87 mm[Hg] Dr. Allan Jc DO Work Phone: 6(834)069-641564 [place] [address] 08-11-2025 14:40-0400 Heart rate 82 /min Dr. Allan Jc DO Work Phone: 1(344)699-661564 [place] [address] 08-11-2025 14:40-0400 Respiratory rate 18 /min Dr. Allan Jc DO Work Phone: 5(796)593-867064 [place] [address] 08-11-2025 14:40-0400 SaO2% (BldA) [Mass fraction] 93 % Dr. Allan Jc DO Work Phone: 3(986)166-368264 [place] [address] 08-11-2025 14:40-0400 Systolic blood pressure 144 mm[Hg] Dr. Allan Jc DO Work Phone: 6(495)926-703912 [place] [address] 07-17-2025 11:52-0400 Body height 170.[address] Allan Jc DO Work Phone: 1(747)237-935112 [place] [address] 07-17-2025 11:52-0400 Body mass index (BMI) [Ratio] 48.6 kg/m2 Dr. Allan Jc DO Work Phone: 5(120)921-790112 [place] [address] 07-17-2025 11:52-0400 Body weight 140.[address] Allan Jc DO Work Phone: 2(530)315-224364 [place] [address] 07-17-2025 11:52-0400 Diastolic blood pressure 83 mm[Hg] Dr. Allan Jc DO Work Phone: 1(548)952-008564 [place] [address] 07-17-2025 11:52-0400 Heart rate 74 /min Dr. Allan Jc DO Work Phone: 4(992)639-180764 [place] [address] 07-17-2025 11:52-0400 Respiratory rate 14 /min Dr. Allan Jc DO Work Phone: 0(596)725-725164 [place] [address] 07-17-2025 11:52-0400 SaO2% (BldA) [Mass fraction] 97 % Dr. Allan Jc DO Work Phone: 7(072)168-168564 [place] [address] 07-17-2025 11:52-0400 Systolic blood pressure 143 mm[Hg] Dr. Allan Jc DO Work Phone: 3(938)538-556564 [place] [address] 06-23-2025 17:47-0400 Body temperature 98.1 [degF] Dr. Allan Jc DO Work Phone: 7(786)438-421664 [place] [address] 06-23-2025 17:47-0400 Diastolic blood pressure 80 mm[Hg] Dr. Allan Jc DO Work Phone: 2(475)807-954964 [place] [address] 06-23-2025 17:47-0400 Heart rate 79 /min Dr. Allan Jc DO Work Phone: 2(962)529-096612 [place] [address] 06-23-2025 17:47-0400 Respiratory rate 20 /min Dr. Allan Jc DO Work Phone: 2(399)046-492812 [place] [address] 06-23-2025 17:47-0400 SaO2% (BldA) [Mass fraction] 98 % Dr. Allan Jc DO Work Phone: 8(079)606-883364 [place] [address] 06-23-2025 17:47-0400 Systolic blood pressure 131 mm[Hg] Dr. Allan Jc DO Work Phone: 4(937)489-756064 [place] [address] 06-23-2025 15:12-0400 Body height 170.[address] Allan Jc DO Work Phone: 0(576)423-381664 [place] [address] 06-23-2025 15:12-0400 Body mass index (BMI) [Ratio] 48.7 kg/m2 Dr. Allan Jc DO Work Phone: 0(623)722-548764 [place] [address] 06-23-2025 15:12-0400 Body weight 141.[address] Allan Jc DO Work Phone: 6(776)642-291964 [place] [address] 06-10-2025 13:03-0400 Body height 170.[address] Allan Jc DO Work Phone: 6(547)698-664164 [place] [address] 06-10-2025 13:03-0400 Body mass index (BMI) [Ratio] 50.6 kg/m2 Dr. Allan Jc DO Work Phone: 2(257)011-264264 [place] [address] 06-10-2025 13:03-0400 Body temperature 98.4 [degF] Dr. Allan Jc DO Work Phone: 6(618)823-144464 [place] [address] 06-10-2025 13:03-0400 Body weight 146.[address] Allan Jc DO Work Phone: 8(733)688-206764 [place] [address] 06-10-2025 13:03-0400 Diastolic blood pressure 71 mm[Hg] Dr. Allan Jc DO Work Phone: 7(648)927-710864 [place] [address] 06-10-2025 13:03-0400 Heart rate 75 /min Dr. Allan Jc DO Work Phone: 1(602)378-641212 [place] [address] 06-10-2025 13:03-0400 Respiratory rate 18 /min Dr. Allan Jc DO Work Phone: 3(425)193-002312 [place] [address] 06-10-2025 13:03-0400 SaO2% (BldA) [Mass fraction] 96 % Dr. Allan Jc DO Work Phone: 3(102)529-694512 [place] [address] 06-10-2025 13:03-0400 Systolic blood pressure 110 mm[Hg] Dr. Allan Jc DO Work Phone: 4(255)322-593612 [place] [address] 05-12-2025 13:30-0400 Body height 170.[address] Allan Jc DO Work Phone: 6(085)634-057512 [place] [address] 05-12-2025 13:30-0400 Body mass index (BMI) [Ratio] 51.9 kg/m2 Dr. Allan Jc DO Work Phone: 6(560)058-839764 [place] [address] 05-12-2025 13:30-0400 Body temperature 97.2 [degF] Dr. Allan Jc DO Work Phone: 7(087)430-953864 [place] [address] 05-12-2025 13:30-0400 Body weight 150.[address] Allan Jc DO Work Phone: 4(768)302-679464 [place] [address] 05-12-2025 13:30-0400 Diastolic blood pressure 82 mm[Hg] Dr. Allan Jc DO Work Phone: 5(369)688-279464 [place] [address] 05-12-2025 13:30-0400 Heart rate 84 /min Dr. Allan Jc DO Work Phone: 9(585)042-912664 [place] [address] 05-12-2025 13:30-0400 Respiratory rate 18 /min Dr. Allan Jc DO Work Phone: 6(502)246-318264 [place] [address] 05-12-2025 13:30-0400 SaO2% (BldA) [Mass fraction] 97 % Dr. Allan Jc DO Work Phone: 8(694)440-770564 [place] [address] 05-12-2025 13:30-0400 Systolic blood pressure 148 mm[Hg] Dr. Allan Jc DO Work Phone: 2(493)828-088764 [place] [address] 05-05-2025 11:40-0400 Diastolic blood pressure 106 mm[Hg] Dr. Allan Jc DO Work Phone: 3(386)452-309212 [place] [address] 05-05-2025 11:40-0400 Heart rate 71 /min Dr. Allan Jc DO Work Phone: 1(485)422-640464 [place] [address] 05-05-2025 11:40-0400 Respiratory rate 18 /min Dr. Allan Jc DO Work Phone: 8(074)216-190264 [place] [address] 05-05-2025 11:40-0400 SaO2% (BldA) [Mass fraction] 96 % Dr. Allan Jc DO Work Phone: 0(168)429-248864 [place] [address] 05-05-2025 11:40-0400 Systolic blood pressure 140 mm[Hg] Dr. Allan Jc DO Work Phone: 9(334)932-370664 [place] [address] 05-05-2025 10:19-0400 SaO2% (BldA) [Mass fraction] 99 % Dr. Allan Jc DO Work Phone: 9(740)435-745564 [place] [address] 05-05-2025 08:45-0400 Body temperature 97.7 [degF] Dr. Allan Jc DO Work Phone: 0(289)477-628164 [place] [address] 05-05-2025 08:45-0400 Diastolic blood pressure 88 mm[Hg] Dr. Allan Jc DO Work Phone: 4(565)155-997764 [place] [address] 05-05-2025 08:45-0400 Heart rate 64 /min Dr. Allan Jc DO Work Phone: 2(481)922-812264 [place] [address] 05-05-2025 08:45-0400 Respiratory rate 20 /min Dr. Allan Jc DO Work Phone: 0(180)649-667612 [place] [address] 05-05-2025 08:45-0400 Systolic blood pressure 149 mm[Hg] Dr. Allan Jc DO Work Phone: 5(012)087-047364 [place] [address] 05-05-2025 03:46-0400 Body mass index (BMI) [Ratio] 47.7 kg/m2 Dr. Allan Jc DO Work Phone: 2(179)183-900664 [place] [address] 05-05-2025 03:46-0400 Body weight 146.[address] Allan Jc DO Work Phone: 4(914)873-353664 [place] [address] 05-03-2025 19:20-0400 Body height 175.[address] Allan Jc DO Work Phone: 0(034)211-507664 [place] [address] 05-03-2025 18:11-0400 Body temperature 98.1 [degF] Dr. Allan Jc DO Work Phone: 3(714)743-683464 [place] [address] 05-03-2025 18:11-0400 Diastolic blood pressure 89 mm[Hg] Dr. Allan Jc DO Work Phone: 3(066)653-390464 [place] [address] 05-03-2025 18:11-0400 Heart rate 73 /min Dr. Allan Jc DO Work Phone: 3(425)568-246364 [place] [address] 05-03-2025 18:11-0400 Respiratory rate 16 /min Dr. Allan Jc DO Work Phone: 4(302)245-163964 [place] [address] 05-03-2025 18:11-0400 SaO2% (BldA) [Mass fraction] 98 % Dr. Allan Jc DO Work Phone: 8(262)926-380464 [place] [address] 05-03-2025 18:11-0400 Systolic blood pressure 159 mm[Hg] Dr. Allan Jc DO Work Phone: 7(715)787-754164 [place] [address] 05-03-2025 15:37-0400 Body height 175.[address] Allan Jc DO Work Phone: [facility] 05-03-2025 15:37-0400 Body mass index (BMI) [Ratio] 48.4 kg/m2 Dr. Allan Jc DO Work Phone: [facility] 05-03-2025 15:37-0400 Body weight 148.[address] Allan Jc DO Work Phone: [facility] 02-04-2024 17:39-0400 Body height 175.26 cm [facility] 02-04-2024 17:39-0400 Body mass index (BMI) [Ratio] 44.4 kg/m2 [facility] 02-04-2024 17:39-0400 Body temperature 96.3 [degF] [facility] 02-04-2024 17:39-0400 Body weight 136.57 kg [facility] 02-04-2024 17:39-0400 Diastolic blood pressure 90 mm[Hg] [facility] 02-04-2024 17:39-0400 Heart rate 100 /min [facility] 02-04-2024 17:39-0400 Respiratory rate 22 /min [facility] 02-04-2024 17:39-0400 SaO2% (BldA) [Mass fraction] 100 % [facility] 02-04-2024 17:39-0400 Systolic blood pressure 149 mm[Hg] [facility] 09-20-2022 12:45-0400 Body height 177.8 cm [facility] Work Phone: 09-20-2022 12:45-0400 Body mass index (BMI) [Ratio] 44.4 kg/m2 [facility] Work Phone: 09-20-2022 12:45-0400 Body temperature 97.7 [degF] [facility] Work Phone: 09-20-2022 12:45-0400 Body weight 140.61 kg [facility] Work Phone: 09-20-2022 12:45-0400 Diastolic blood pressure 80 mm[Hg] [facility] Work Phone: 09-20-2022 12:45-0400 Heart rate 98 /min [facility] Work Phone: 09-20-2022 12:45-0400 Respiratory rate 18 /min [facility] Work Phone: 09-20-2022 12:45-0400 SaO2% (BldA) [Mass fraction] 96 % [facility] Work Phone: 09-20-2022 12:45-0400 Systolic blood pressure 160 mm[Hg] [facility] Work Phone: Encounters Encounter Date Encounter Type Care Provider Facility Start: 09-23-2025 End: 09-23-2025 ambulatory [facility] Facility:[facility] Start: 09-23-2025 End: 09-23-2025 ambulatory [facility] Facility:[facility] Start: 09-17-2025 Non-patient / Non-visit Tito Morris DO -[facility] Start: 09-17-2025 End: 09-17-2025 Admission to same day surgery center Tito Morris DO -Endoscopy Work Phone: Start: 09-17-2025 End: 09-17-2025 ambulatory [facility] Facility:[facility] Start: 08-26-2025 End: 08-26-2025 Patient encounter procedure Debbie SCHWARTZ -[facility] Work Phone: Start: 08-26-2025 End: 08-26-[address] Allan Jc DO Work Phone: -[facility] Start: 08-14-2025 End: 08-14-2025 Patient encounter procedure Elizabet BLOCK -[facility] Work Phone: Start: 08-14-2025 End: 08-14-[address] Allan Jc DO Work Phone: -[facility] Start: 08-11-2025 End: 08-11-2025 Patient encounter procedure Elizabet BLOCK -[facility] Work Phone: Start: 08-11-2025 End: 08-11-[address] Allan Jc DO Work Phone: -[facility] Start: 08-04-2025 End: 08-04-[address] Allan Jc DO Work Phone: -[facility] Start: 08-04-2025 End: 08-04-2025 Patient encounter procedure Deboarh BLOCK -[facility] Start: 08-04-2025 End: 08-04-2025 ambulatory Deborah Roa Facility:[facility] Start: 07-17-2025 End: 07-17-[address] Allan Jc DO Work Phone: -Laboratory Start: 07-17-2025 End: 07-17-2025 Patient encounter procedure Elizabet BLOCK -Laboratory Work Phone: Start: 07-17-2025 End: 07-17-2025 Patient encounter procedure Elizabet BLOCK -[facility] Work Phone: Start: 07-17-2025 End: 07-17-[address] Allan Jc DO Work Phone: -[facility] Start: 07-17-2025 End: 07-17-2025 ambulatory Elizabet Diop Facility:[facility] Start: 06-23-2025 End: 06-23-2025 Emergency department patient visit Dr. Allan Jc DO Work Phone: -Emergency Department Work Phone: Start: 06-18-2025 ambulatory [facility] y:[facility] Start: 06-17-2025 End: 06-17-[address] Allan Jc DO Work Phone: -[facility] [place] Start: 06-17-2025 End: 06-17-2025 Patient encounter procedure Deborah Roa IMPLEMENTATION MANAGER-C -[facility] [place] Work Phone: Start: 06-17-2025 End: 06-17-2025 ambulatory Deborah Roa Facility:[facility] Start: 06-10-2025 End: 06-10-2025 Patient encounter procedure Anay HiJorgito IMPLEMENTATION MANAGER-C -[facility] Work Phone: Start: 06-10-2025 End: 06-10-[address] Allan Jc DO Work Phone: -[facility] Start: 06-10-2025 End: 06-10-2025 [facility] Start: 06-03-2025 ambulatory [facility] Facility:[facility] Start: 05-29-2025 End: 05-29-[address] Allan Jc DO Work Phone: -[facility] Start: 05-29-2025 End: 05-29-2025 Patient encounter procedure Deborah Roa IMPLEMENTATION MANAGER-C -[facility] Start: 05-29-2025 End: 05-29-2025 ambulatory Deborah Crispin Facility:[facility] Start: 05-20-2025 End: 05-20-[address] Allan Jc DO Work Phone: -[facility] Start: 05-20-2025 End: 05-20-2025 Patient encounter procedure Deborah Roa IMPLEMENTATION MANAGER-C -[facility] Start: 05-20-2025 End: 05-20-2025 ambulatory [facility] Facility:[facility] Start: 05-12-2025 End: 05-12-[address] Betty Steel MD -[facility] Work Phone: Start: 05-12-2025 End: 05-12-[address] Allan Jc DO Work Phone: [facility] Work Phone: Start: 05-05-2025 Non-patient / Non-visit Dr. Kevin Singh DO [facility] Work Phone: Start: 05-04-2025 Non-patient / Non-visit Dr. Kevin Singh DO [facility] Work Phone: Start: 05-03-2025 Non-patient / Non-visit Dr. Meseret Minor DO [facility] Work Phone: Start: 05-03-2025 ambulatory Deborah Roa Facility:[facility] Start: 05-03-2025 End: 05-05-2025 Evaluation and management of inpatient Dr. Meseret Minor DO -[facility] Work Phone: Start: 02-04-2024 End: 02-04-2024 [facility] Start: 11-15-2022 End: 11-15-2022 Emergency department patient visit Dr. OSIRIS BARRETT Facility:[id number] Start: 09-20-2022 End: 09-20-2022 [facility] Start: 03-09-2022 ambulatory Tony Altman Facility:[id number] [...] Start: 09-23-2025 End: 09-23-2025 Patient encounter procedure -[facility] Work Phone: Start: 09-17-2025 Endoscopy upper small intestine w/biopsy SMALL BOWEL ENDOSCOPY/BIOPSY [facility] Start: 09-17-2025 Patient discharge [facility] Start: 07-17-2025 Basic metabolic 2008 panel with ionized calcium - Serum or Plasma [facility] Start: 07-17-2025 Cortisol [Mass/volume] in Serum or Plasma [facility] Start: 07-17-2025 Thyroid stimulating hormone measurement [facility] Start: 06-23-2025 [facility] Start: 05-05-2025 Patient discharge [facility] Start: 05-03-2025 Following clinical pathway protocol [facility] Start: 05-03-2025 Assessment of risk of venous thromboembolism [facility] Start: 05-03-2025 Inhalation therapy procedure [facility] Start: 05-03-2025 Insertion of catheter into peripheral vein [facility] Start: 05-03-2025 Measuring intake and output [facility] Start: 05-03-2025 Oxygen therapy [facility] Start: 05-03-2025 Providing care according to standard [facility] Start: 05-03-2025 Referral to service [facility] Start: 05-03-2025 [facility] Start: 05-03-2025 Hospital admission, emergency, from emergency room, medical nature [facility] Start: 05-03-2025 Urinalysis complete panel - Urine [facility] Start: 05-03-2025 Verification routine [facility] Start: 05-03-2025 Admission procedure [facility] Start: 05-03-2025 Osmolality of Urine [facility] Start: 05-03-2025 Sodium [Moles/volume] in Urine [facility] Start: 05-03-2025 Osmolality measurement, serum [facility] Start: 05-03-2025 Thyroid stimulating hormone measurement [facility] Start: 05-03-2025 [facility] Start: 09-20-2022 Electrocardiographic procedure [facility] Work Phone: Amphetamines [Presen ce] in Urine by Screen method >1000 ng/mL [facility] Anion gap in Serum or Plasma [facility] Anion gap in Serum or Plasma [facility] Anion gap in Serum or Plasma [facility] Anion gap in Serum or Plasma [facility] Benzodiazepine measu rement, urine [facility] BUN/Creatinine ratio [facility] BUN/Creatinine ratio [facility] BUN/Creatinine ratio [facility] BUN/Creatinine ratio [facility] Calcium [Mass/volume ] in Serum or Plasma [facility] Calcium [Mass/volume ] in Serum or Plasma [facility] Calcium [Mass/volume ] in Serum or Plasma [facility] Calcium [Mass/volume ] in Serum or Plasma [facility] Carbon dioxide, tota l [Moles/volume] in Central venous blood [facility] Carbon dioxide, tota l [Moles/volume] in Central venous blood [facility] Carbon dioxide, tota l [Moles/volume] in Central venous blood [facility] Carbon dioxide, tota l [Moles/volume] in Central venous blood [facility] CBC W Auto Different ial panel - Blood [facility] Cocaine measurement, urine [facility] Comprehensive metabo lic 2000 panel - Serum or Plasma [facility] Cortisol [Mass/volum e] in Serum or Plasma [facility] Creatinine [Mass/vol ume] in Serum or Plasma [facility] Creatinine [Mass/vol ume] in Serum or Plasma [facility] Creatinine [Mass/vol ume] in Serum or Plasma [facility] Creatinine [Mass/vol ume] in Serum or Plasma [facility] CT Chest [facility] fentaNYL [Presence] in Urine by Screen method [facility] Glucose [Mass/volume ] in Serum or Plasma [facility] Glucose [Mass/volume ] in Serum or Plasma [facility] Glucose [Mass/volume ] in Serum or Plasma [facility] Glucose [Mass/volume ] in Serum or Plasma [facility] Measurement of renal function [facility] Measurement of renal function [facility] Measurement of renal function [facility] Measurement of renal function [facility] Methadone measurement, urine [facility] Patient Education [facility] Work Phone: Patient referral [facility] Work Phone: Phencyclidine [Prese nce] in Urine [facility] Potassium measurement [facility] Potassium measurement [facility] Potassium measurement [facility] Potassium measurement [facility] Serum chloride measurement [facility] Serum chloride measurement [facility] Serum chloride measurement [facility] Serum chloride measurement [facility] Sodium measurement [facility] Sodium measurement [facility] Sodium measurement [facility] Sodium measurement [facility] Troponin T.cardiac [Mass/volume] in Serum or Plasma by High sensitivity method [facility] Urate [Mass/volume] in Serum or Plasma [facility] Urea nitrogen [Mass/ volume] in Serum or Plasma [facility] Urea nitrogen [Mass/ volume] in Serum or Plasma [facility] Urea nitrogen [Mass/ volume] in Serum or Plasma [facility] Urea nitrogen [Mass/ volume] in Serum or Plasma [facility] Urine cannabinoid measurement [facility] Urine opiate measurement [facility] Payers Date Payer Category Payer Medicaid [id number] 2025 Self-pay [id number] 2025 Medicare [id number] 241 [id number] 1970 [facility] [id number] 2.16.8 40.1.875469.3.579.2.1069 1970 Unknown [id number] 2.16.8 40.1.925867.3.579.2.1069 Unknown [id number] Unknown [id number] 2.16.8 40.1.399724.3.579.2.462 Unknown [id number] 2.16.8 40.1.562201.3.579.2.462 Unknown [id number] 2.16.8 40.1.143062.3.579.2.462 Unknown [id number] 2.16.8 40.1.942368.3.579.2.462 Unknown [id number] 2.16.8 40.1.978505.3.579.2.462 Unknown [id number] 2.16.8 40.1.928779.3.579.2.462 Unknown [id number] 2.16.8 40.1.677392.3.579.2.462 Unknown [id number] 2.16.8 40.1.623383.3.579.2.462 Unknown [id number] 2.16.8 40.1.340355.3.579.2.462 Unknown [id number] 2.16.8 40.1.066883.3.579.2.462 Unknown [id number] 2.16.8 40.1.046086.3.579.2.462 Unknown [id number] 2.16.8 40.1.320622.3.579.2.462 Unknown [id number] 2.16.8 40.1.486551.3.579.2.462 Unknown [id number] 2.16.8 40.1.419849.3.579.2.462 Unknown [id number] 2.16.8 40.1.432305.3.579.2.462 Unknown [id number] 2.16.8 40.1.963667.3.579.2.462 Unknown [id number] 2.16.8 40.1.586170.3.579.2.462 Unknown [id number] 2.16.8 40.1.384074.3.579.2.462 Unknown [id number] 2.16.8 40.1.282795.3.579.2.462 Unknown [id number] 2.16.8 40.1.562987.3.579.2.462 Unknown [id number] 2.16.8 40.1.973773.3.579.2.462 Unknown [id number] 2.16.8 40.1.060019.3.579.2.462 Unknown [id number] 2.16.8 40.1.520978.3.579.2.462 Social History Date Type Detail Facility Start: 09-20-2022 End: 02-04-2024 Tobacco smoking status VAIS Unknown if ever smoked [facility] Start: 1970 Sex Assigned At Male [facility] Start: 05-03-2025 End: 09-15-2025 Tobacco smoking status NHIS Smokes tobacco daily (finding) [facility] Sex Male [facility] Goals Date Patient Goal Desired Activity /State Functional Status Date Assessment Result Facility 05-05-2025 Functional status Ambulates;Up ad michael [facility] Work Phone: Mental Status Date Assessment Result Facility 09-17-2025 Cognitive function Touch/Shaking [facility] Work Phone: 08-14-2025 Cognitive function Awake [facility] Work Phone: 05-05-2025 Cognitive function Voice/Name [facility] Work Phone: 05-03-2025 Cognitive function Level Of Cons ciousness Awake;Alert;Appropriate;Follow s Commands [facility] Work Phone: 02-04-2024 Cognitive function Level Of Cons ciousness Awake;Alert [facility] Work Phone: Clinical Notes 11-16-2022 to 09-17-2025 Note Date & Type Note Facility 09-17-2025 Consult note Note Date/Time September 17, 2025 3:50pm [facility] Medical Records Department [address] [place] [address] Anesthesia Postop Eval II 09/17/25 142 MR#: [id number] Acct: [id number] Name: LYNNETTE GONG Rep #:[id number] : 1970 55 From: Mina Calle MD PCP: UMAIR Taveras Status:REG SDC Y Race: C Location: [facility]- Anesthesia Postop Eval I Sum Postop Eval [...] Mina Calle MD > Date _ Mina Carrignnorris Signature: Date CC: ~ Signed [facility] Work Phone: 1(208) 713-724210-22-2025 Consult note Author Jean Jc [facility] Note Date/Time September 17, 2025 3 :00pm [facility] Medical Records Department [address] [place] [address] Anesthesia Postop Eval I 09/17/25 1359 MR#: [id number] Acct: [id number] Name: LYNNETTE GONG Rep #:[id number] : 1970 55 From: Jean Jc PCP: TONO TaverasC Status:REG SDC Y Race: C Location: [place] [address] Anesthesia: Postop Eval I Current Vital Signs [...] Jean Mendoza Signature: Date CC: ~ Signed [facility] Work Phone: 1(683) 608-756010-22-2025 Consult note Author Mina Calle [facility] Note Date/Time September 17, 2025 2 :31pm [facility] Medical Records Department [address] [place] [address] Pre-Anesthesia Evaluation 09/17/25 1330 MR#: [id number] Acct: [id number] Name: LYNNETTE GONG Rep #:[id number] : 1970 55 From: Mina Calle MD PCP: UMAIR Taveras Status:REG SDC Y Race: C Location: [place] [address] ASA Classification* ASA Classification ASA Classification: 3 [...] Procedure(s): EGD Anesthesia History Anesthesia History - supervisor belt and link assembly: Anesthesia History - supervisor belt and link assembly Hx Hospitalization Yes: LOW SODIUM 06/202509/15/25 13:45 [...] take am of surgery PONV PONV - supervisor belt and link assembly: PONV - supervisor belt and link assembly Female No 09/15/25 13:45 HX of Motion [...] 09/17/25 12:52 Respiratory Assessment Respiratory Assessment - supervisor belt and link assembly: Respiratory Tract Infection Hx - supervisor belt and link assembly Hx Respiratory Tract Infection No 09/15/25 13:45 STOP Sleep Apnea STOP Sleep Apnea - supervisor belt and link assembly: STOP Sleep Apnea - supervisor belt and link assembly Hx Hypertension Yes: STILL WORKING ON, 09/15/25 [...] Tobacco Use History Tobacco Use History - supervisor belt and link assembly: Tobacco Use History - supervisor belt and link assembly Tobacco Use Smoking Status Current every day smoker 09/15/25 13:45 Hx Tobacco Use Yes 09/15/25 13:45 Years Smoking Packs Smoked per Day Smoking Cessation Date was within the last 15 years Hx Smoking Cessation Date Hx Smoking Cessation Counseling Hematologic Medial History Hematologic Hx - supervisor belt and link assembly: Hematologic Medical Hx - tutoring assistant Hx of Blood Transfusion No 09/15/25 13:45 [...] confused, unrespo /Reproduction History /Reproductive History - supervisor belt and link assembly: /Reproductive Hx- supervisor belt and link assembly Hx Now No 09/15/25 13:45 Gestational Age [...] MD Cosigner Signature: Date CC: ~ Signed [facility] Work Phone: 1(216) 367-874110-22-2025 Consult note [facility] Medical Records Department [address] [place] [address] Anesthesia Postop Eval II 09/17/25 1422 MR#: [id number] Acct: [id number] Name: LYNNETTE GONG Rep #:[id number] : 1970 55 From: Mina Calle MD PCP: UMAIR Taveras Status:REG SDC Y Race: C Location: [place] [address]- Anesthesia Postop Eval I Sum Postop Eval [...] 0 nausea: No Vomiting: No 09/17/25 1422 > Date _ Mina Calle MD Cosign Signature: Date CC: ~ Signed [facility]10-22-2025 History and physical note Author Tito Friend [facility] Note Date/Time September 17, 2025 1 :50pm [facility] Medical Records Department [address] [place] [address] History & Physical Exam 09/17/25 1248 MR#: [id number] Acct: [id number] Name: LYNNETTE GONG Rep #:[id number] : 1970 55 From: Tito Friend DO PCP: UMAIR Taveras Status:[facility] Location: [place] [address] HPI - General General Date of Admission: [...] is a link to this NIH article https://pmc.ncbi.nlm.nih.gov/articles/SEK6814253/ OV 08/26/25 - Continues to have daily [...] CC: UMAIR Roa; Tito Morris DO~ Signed [facility] Work Phone: 1(936) 506-548210-22-2025 Procedure note [facility] Medical Records Department [address] [place] [address] EGD Report MR#: [id number] Acct: [id number] Name: LYNNETTE GONG Rep #:[id number] : 1970 55 From: Tito Morris DO PCP: UMAIR Taveras Status:REG [facility] Patient Name: Lynnette Gong Procedure Date: 09/17/2025 [...] Hemoglobin A1c Procedure Code(s): --- Professional --- 41758, Small intestinal endoscopy, enteroscopy beyond second portion of duodenum, not including ileum; with biopsy, single or multiple CPT copyright 2021 [employer]. All rights reserved. The codes documented in this report are preliminary and upon land inspector review may be revised to meet current compliance requirements. Tito Morris DO 09/17/2025 2:06:55 PM This report has been signed electronically. Number of Addenda: 0 Note Initiated On: 09/17/2025 1:32 PM 09/17/25 1407 Date _ Tito Ziegler Signature: Date (if indicated) CC: UMAIR Roa; Tito Morris DO ~ Date Dictated: 09/17/25 1332 Date Transcribed: Customer Service Administrator: RF Signed [facility]10-22-2025 Procedure note [facility] Medical Records Department [address] [place] [address] Provation Physician Letter MR#: [id number] Acct: [id number] Name: LYNNETTE GONG Rep #:[id number] : 1970 55 From: Tito Morris DO PCP: UMAIR Taveras Status:REG [facility] 09/17/2025 Umair Taveras Re : Upper GI endoscopy procedure for Lynnette Gong Dear Crispin This procedure was performed on Wednesday, September [...] signed electronically. 09/17/25 1407 Date _ Tito Munizignnorris Signature: Date (if indicated) CC: IMPLEMENTATION MANAGERLaurel Roa; DO Michael Trent Date Dictated: 09/17/25 1332 Date Transcribed: Customer Service Administrator: RF Signed [facility]10-22-2025 Consult note [facility] Medical Records Department [address] [place] [address] Anesthesia Postop Eval I 09/17/25 1359 MR#: [id number] Acct: [id number] Name: BELTRANLYNNETTE Prema Rep #:[id number] : 1970 55 From: Jean Jc PCP: UMAIR Taveras Status:REG SDC Y Race: C Location: [place] [address] Anesthesia: Postop Eval I Current Vital Signs [...] Jean Mendoza Signature: Date CC: ~ Signed [facility]10-22-2025 Consult note [facility] Medical Records Department [address] [place] [address] Pre-Anesthesia Evaluation 09/17/25 1330 MR#: [id number] Acct: [id number] Name: LYNNETTE GONG Rep #:[id number] : 1970 55 From: Mina Calle MD PCP: UMAIR Taveras Status:REG SDC Y Race: C Location: [place] [address] ASA Classification* ASA Classification ASA Classification: 3 [...] Procedure(s): EGD Anesthesia History Anesthesia History - supervisor belt and link assembly: Anesthesia History - supervisor belt and link assembly Hx Hospitalization Yes: LOW SODIUM 06/202509/15/25 13:45 [...] take am of surgery PONV PONV - supervisor belt and link assembly: PONV - supervisor belt and link assembly Female No 09/15/25 13:45 HX of Motion [...] 09/17/25 12:52 Respiratory Assessment Respiratory Assessment - supervisor belt and link assembly: Respiratory Tract Infection Hx - supervisor belt and link assembly Hx Respiratory Tract Infection No 09/15/25 13:45 STOP Sleep Apnea STOP Sleep Apnea - supervisor belt and link assembly: STOP Sleep Apnea - supervisor belt and link assembly Hx Hypertension Yes: STILL WORKING ON, 09/15/25 [...] Tobacco Use History Tobacco Use History - supervisor belt and link assembly: Tobacco Use History - supervisor belt and link assembly Tobacco Use Smoking Status Current every day smoker 09/15/25 13:45 Hx Tobacco Use Yes 09/15/25 13:45 Years Smoking Packs Smoked per Day Smoking Cessation Date was within the last 15 years Hx Smoking Cessation Date Hx Smoking Cessation Counseling Hematologic Medial History Hematologic Hx - supervisor belt and link assembly: Hematologic Medical Hx - tutoring assistant Hx of Blood Transfusion No 09/15/25 13:45 [...] confused, unrespo /Reproduction History /Reproductive History - supervisor belt and link assembly: /Reproductive Hx- supervisor belt and link assembly Hx Now No 09/15/25 13:45 Gestational Age [...] MD Cosigner Signature: Date CC: ~ Signed [facility]10-22-2025 History and physical note [facility] Medical Records Department [address] [place] [address] History & Physical Exam 09/17/25 1248 MR#: [id number] Acct: [id number] Name: LYNNETTE GONG Rep #:[id number] : 1970 55 From: Tito Friend PCP: UMAIR Taveras Status:REG [facility] Location: [place] [address] HPI - General General Date of Admission: [...] is a link to this NIH article https://pmc.ncbi.nlm.nih.gov/articles/LGP7504291/ OV 08/26/25 - Continues to have daily [...] CC: UMAIR Roa; Tito Morris DO~ Signed [facility]10-22-2025 [facility] Medical Records Department [address] [place] [address] History Physical Exam 09/17/25 1248 MR#: [id number] Acct: [id number] Name: LYNNETTE GONG Rep #: [id number] : 1970 55 From: Tito Morris DO PCP: UMAIR Taversa Status:REG [facility] Location: AC14-1 HPI - General General Date of Admission: [...] of organ toxicity, particularl (more content not included)...[facility]09-30-2025 [facility] [address] [place] [address] OFFICE VISIT Date of Service: 08/26/25 MR#: [id number] Acct: [id number] Name: LYNNETTE GONG Rep #: [id number] : 1970 Provider: LANA Adan Age/Sex: 55/M Location: [facility] Status: Signed Intake Vital Signs 08/11/25 14:40 08/14/25 09:48 Height 5 ft 7 in 5 ft 7 in Weight: 304 lb 4 oz BMI 47.6 BP 144/87 H Respiration 18 Pulse 82 Temp 98.8 F Pulse Oximetry (%) 93 Oxygen Delivery Method room air Intake Visit Reasons: SCHEDULE FU PER ANANYA Chief Complaint: Nausea and vomiting Aviation Tactical Readiness Officer Required: No Accompanied by: Self Is patient [...] is a link to this NIH article https://pmc.ncbi.nlm.nih.gov/articles/TCV1596034/ OV 08/26/25 - Continues to have daily [...] Cosigner Signature: Date (if applicable) CC: ~ [facility]07-28-2025 Radiology Diagnostic study note [facility] Imaging Services [address] [place], [place] [address] Abdomen Single View MR#: [id number] Acct: [id number] Name: LYNNETTE GONG Rep #: [id number] : 1970 M 54 From: Claudio Pagan MD PCP: UMAIR Taveras Status: REG ER Study:Abdomen Single View Date of Exam: 06/23/25 Exam# [id number] Ordering Dr: Juan Rush DO PROCEDURE: ABDOMEN [...] the rectum may indicate constipation.. Reading Location: [facility] CC: IMPLEMENTATION MANAGER-Juju Roa; Dr. Juan Rush DO ~ Customer Service Administrator: Signed [facility]07-23-2025 Radiology Diagnostic study note [facility] Imaging Services [address] [place] [address] Abdomen Single View MR#: [id number] Acct: [id number] Name: LYNNETTE GONG Rep #: [id number] : 1970 M 54 From: Niru Rush MD PCP: UMAIR Taveras Status: REG CLI Study:Abdomen Single View Date of Exam: 06/17/25 Exam# [id number] Ordering Dr: Ra jacoby Roa IMPLEMENTATION MANAGER-Juju EXAM: XR Abdomen, 1 View CLINICAL INDICATION: CONSTIPATION, MELENA, NAUSEA TECHNIQUE: Frontal supine view of the abdomen/pelvis. COMPARISON: No relevant prior studies available. FINDINGS: GASTROINTESTINAL TRACT: Fecal retention in the colon consistent with constipation. No dilation. BONES/JOINTS: Unremarkable. No acute fracture. RAD/Abdomen Single View IMPRESSION: Fecal retention in the colon consistent with constipation. Reading Location: [facility] CC: IMPLEMENTATION MANAGER-Juju Roa ~ Customer Service Administrator: Signed [facility]07-15-2025 Evaluation note* Diagnosis Onset Date Resolution [...] 7:49am Nausea acute September 23, 2025 7:49am [facility] Work Phone: 1(306) 277-218607-15-2025 Radiology Diagnostic study note [facility] Imaging Services [address] [place] [address] Lung Screening MR#: [id number] Acct: [id number] Name: LYNNETTE GONG Rep #: [id number] : 1970 M 54 From: Rahul Gould MD PCP: Deborah Roa IMPLEMENTATION MANAGER-C Status: REG CLI Study:Low Dose CT Lung Screening Date of Exam : 06/10/25 Exam# [id number] Ordering Dr: Anay Solano NP IMPLEMENTATION MANAGER-C PROCEDURE: LOW DOSE CT LUNG SCREENING 06/10/2025 REASON FOR EXAM: LUNG CANCER SCREENING Patient has smoked 1-1/2-2 packs per day for 37 years. TECHNIQUE: Coronal and Sagittal reconstruction series were provided. One or more dose reduction techniques were used (e.g., Automated exposure control, adjustment of the mA and/or kV according to patient size, use of iterative reconstruction technique). REFERENCE LINK: [employer] Lung-RADS RADIATION DOSE SUMMARY: CTDlvol: 3.18 mGy [...] SCREENING LDCT. Other Significant Findings: Reading Location: [id number] CC: UMAIR Roa; UMAIR Bull ~ Customer Service Administrator: Signed [facility]06-09-2025 Discharge summary [facility] Medical Records Department [address] [place] [address] Discharge Summary 05/05/25 1004 MR#: [id number] Acct: [id number] Name: LYNNETTE GONG Rep #:[id number] : 1970 54 From: Kevin Singh DO PCP: UMAIR Taveras Status:ADM IN Location: [place] [address] Providers Date of Admission: 05/03/25 Primary Care [...] 05/05/25 at 1009 Visit Charges Inpatient E&M: 53594 Disch Hosp 05/05/25 1009 Cosigner Signature (if applicable): cc: UMAIR Roa; Dr. Kevin Singh DO ~* Signed [facility]06-09-2025 [facility] Medical Records Department [address] [place] [address] Discharge Summary 05/05/25 1004 MR#: [id number] Acct: [id number] Name: LYNNETTE GONG Rep #: [id number] : 1970 54 From: Kevin Singh DO PCP: UMAIR Taveras Status:ADM IN Location: [place] [address] Providers Date of Admission: 05/03/25 Primary Care [...] at 1009 Visit Charges Inpatient E M: 75877 Disch Hosp 05/05/25 1009 Cosigner Signature (if applicable): cc: UMAIR Roa; Dr. Kevin Singh DO * [facility] Progress note Author Kevin Singh [facility] Note Date/Time May 04, 2025 1:33p m [facility] Medical Records Department [address] [facility] [place] [address] Progress Note - Hospitalist 05/04/25910 MR#: [id number] Acct: [id number] Name: LYNNETTE GONG Rep #:[id number] : 1970 54 From: Kevin Singh DO PCP: UMAIR Taveras Status:ADM IN Location: [place] [address] Reason for Visit Reason for Visit: Diagnoses [...] 76.5 H, Lymph % (Auto) 15.6 L, Hodgeman % (Auto) 6.7, Eos % (Auto) 0.1, [...] Clarity Clear, Urine pH 7.0, Ur Specific Levant 1.010, Urine Protein 15 H, Urine Glucose [...] % (Auto) 65.3, Lymph % (Auto) 22.7, Hodgeman% (Auto) 10.3 H, Eos % (Auto) 0.2, [...] 16:00 IMPRESSION: NO ACUTE FINDINGS. Reading Location: [facility] Physical Exam Const alert and no [...] in AM. Charges/Coding Visit Charges Inpatient E&M: 75915 Subs Hosp L2 05/04/25 1333 <Electronically signed by Kevin Singh DO> Cosigner Signature (if applicable): CC: ~ Signed [facility] Work Phone: 1(674) 429-425406-08-2025 Progress note [facility] Medical Records Department [address] [place] [address] Progress Note - Hospitalist 05/04/25910 MR#: [id number] Acct: [id number] Name: LYNNETTE GONG Rep #:[id number] : 1970 54 From: Kevin Singh DO PCP: UMAIR Taveras Status:ADM IN Location: [place] [id number] Reason for Visit Reason for Visit: Diagnoses [...] 76.5 H, Lymph % (Auto) 15.6 L, Hodgeman % (Auto) 6.7, Eos % (Auto) 0.1, [...] Clarity Clear, Urine pH 7.0, Ur Specific Levant 1.010, Urine Protein 15 H, Urine Glucose [...] % (Auto) 65.3, Lymph % (Auto) 22.7, Hodgeman% (Auto) 10.3 H, Eos % (Auto) 0.2, [...] 16:00 IMPRESSION: NO ACUTE FINDINGS. Reading Location: [id number] Physical Exam Const alert and no apparent [...] in AM. Charges/Coding Visit Charges Inpatient E&M: 35060 Subs Hosp L2 05/04/25 1333 Cosigner Signature (if applicable): CC: ~ Signed [facility]06-07-2025 History and physical note Author Meseret Minor [facility] Note Date/Time May 03, 2025 7:01p m [facility] Medical Records Department [address] [place] [address] H&P Exam - Hospitalist 05/03/25 1806 MR#: [id number] Acct: [id number] Name: LYNNETTE GONG Rep #:[id number] : 1970 54 From: Meseret Minor DO PCP: UMAIR Taveras Status:ADM IN Location: [place] [id number]- 1 HPI - General General Date of Admission: 05/03/25 Date of Service: 05/03/25 Chief Complaint: Elevated blood pressure HPI Narrative LYNNETTE GONG, is a 54 M who presented to the emergency department [facility] on 05/03/2025 with the chief complaint of [...] 76.5 H, Lymph % (Auto) 15.6 L, Hodgeman % (Auto) 6.7, Eos % (Auto) 0.1, [...] 16:00 IMPRESSION: NO ACUTE FINDINGS. Reading Location: [id number] Assessment & Plan Assessment/Plan (1) Acute hyponatremia: [...] and asked his PCP to call in [facility] however it is too expensive for him. - We did discuss that there are other alternatives and I recommended he discuss this with his primary care physician- DVT prophylaxis - Lovenox SQ twice daily CODE STATUS - Full code Charges/Coding Visit Charges Inpatient E&M: 66142 Init Hosp L2 05/03/25 190 <Electronically signed by Meseret Minor DO> Cosigner Signature (if applicable): CC: IMPLEMENTATION MANAGERLaurel Roa; Dr. Meseret Minor DO~ Signed [facility] Work Phone: 1(287) 252-230406-07-2025 Discharge summary Author Allan Jc [facility] Note Date/Time May 03, 2025 6:22p m [facility] Medical Records Department [address] [place] [address] Emergency Department Summary 05/03/25 MR#: [id number] Acct: [id number] Name: LYNNETTE GONG Rep #:[id number] : 1970 54 From: Allan Jc DO [...] that he no longer has a headache. [facility] Medical History (Updated 05/03/25 @ 18:22 [...] following commands knew that he was at [facility] year is 2024 patient NIH of [...] 76.5 H Lymph % (Auto) 15.6 L Hodgeman % (Auto) 6.7 Eos % (Auto) 0.1 [...] 16:00 IMPRESSION: NO ACUTE FINDINGS. Reading Location: [id number] Discharge Plan Triage Chief Complaint: Hypertension ED Provider: Allan Jc Dx/Rx/DC Orders Clinical Impression: Acute hyponatremia, Hyperglycemia, Hypertension Prescriptions: No Action losartan 25 mg tablet 25 mg PO DAILY Primary Care Provider: Deborah Roa Referrals: Care Physician,No Primary [Non-Staff] - Print Language: Palestinian [facility]position [facility]position[facility] What to do if you have Problems For any increased pain, shortness of breath, bleeding, nausea or vomiting, chestpain, or any unexpected problems, contact your Primary Care Provider. Call [facility] ([phone]) or report to the closest Emergency Room. Call 911 if necessary. 05/03/251821 <Electronically signed by Allan Jc DO> Cosigner Signature (if applicable): CC: UMAIR Roa ~ Signed [facility] Work Phone: 1(845) 239-790506-07-2025 Evaluation note* Diagnosis Onset Date Resolution Status Admit Date Acute hyponatremia acute May 032024 6:03pm Hyperglycemia acute May 03 025 6:03pm Hypertensive urgency acute May 03, 2025 6:03pm [facility] Work Phone: 1([phone]) 979-991006-07-2025 Evaluation note* Diagnosis Onset Date Resolution Status Admit Date Acute hyponatremia resolved May 032024 6:03pm Hyperglycemia resolved May 03 025 6:03pm Hypertensive urgency resolved May 03, 2025 6:03pm Constipation acute May 12, 2 025 1:20pm Screen for colon cancer acute J [facility] 2024 1:20pm [facility] Work Phone: 1([phone]) 593-163606-07-2025 Evaluation note* Diagnosis Onset Date Resolution Status Admit Date Acute hyponatremia resolved May 032024 6:03pm Hyperglycemia resolved May 03, 2 025 6:03pm Hypertensive urgency resolved May 03, 2025 6:03pm Constipation acute May 12, 2 025 1:20pm Screen for colon cancer acute J [facility] 2024 1:20pm Encounter for screening for malignant neoplasm of lung acute June 10, 2025 12:37pm Tobacco use disorder, continuous acute June 10, 2025 12:37pm [facility] Work Phone: 1(222) 504-846606-07-2025 Evaluation note* Diagnosis Onset Date Resolution Status Admit Date Acute hyponatremia resolved May 032024 6:03pm Hyperglycemia resolved May 03, 2 025 6:03pm Hypertensive urgency resolved May 03, 2025 6:03pm Constipation acute May 12, 2 025 1:20pm Screen for colon cancer acute J [facility] 2024 1:20pm Encounter for screening for malignant neoplasm of lung acute June 10, 2025 12:37pm Tobacco use disorder, continuous acute June 10, 2025 12:37pm Constipation acute July 17, 2025 10:45am Generalized headaches acute Jun 10:45am Hyponatremia acute July 17, 2025 10:45am [facility] Work Phone: 1([phone]) 132-683506-07-2025 Evaluation note* Diagnosis Onset Date Resolution Status [...] August 112024 2:27pm Nausea acute July 2:27pm [facility] Work Phone: 1([phone]) 771-210006-07-2025 Evaluation note* Diagnosis Onset Date Resolution Status Admit Date Acute hyponatremia resolved May 032024 6:03pm Hyperglycemia resolved May 03 025 6:03pm Hypertensive urgency resolved May 03, 2025 6:03pm Constipation acute May 12 2 025 1:20pm Screen for colon cancer [...] August 262024 11:18am Nausea acute July 11:18am [facility] Work Phone: 1(385) 173-206606-07-2025 History and physical note [facility] Medical Records Department [address] [place] [address] H&P Exam - Hospitalist 05/03/25 1806 MR#: [id number] Acct: [id number] Name: LYNNETTE GONG Rep #:[id number] : 1970 54 From: Meseret Minor DO PCP: UMAIR Taveras Status:ADM [facility] H[facility] - General General Date of Admission: 05/03/25 Date of Service: 05/03/25 Chief Complaint: Elevated blood pressure HPI Narrative LYNNETTE GONG, is a 54 M who presented to the emergency department [facility] on 05/03/2025 with the chief complaint of [...] 76.5 H, Lymph % (Auto) 15.6 L, Hodgeman % (Auto) 6.7, Eos % (Auto) 0.1, [...] 16:00 IMPRESSION: NO ACUTE FINDINGS. Reading Location: [facility] Assessment & Plan Assessment/Plan (1) Acute [...] and asked his PCP to call in [facility] however it is too expensive for him. - We did discuss that there are other alternatives and I recommended he discuss this with his primary care physician- DVT prophylaxis - Lovenox SQ twice daily CODE STATUS - Full code Charges/Coding Visit Charges Inpatient E&M: 38229 Init Hosp L2 05/03/25 1901 Cosign Signature (if applicable): CC: IMPLEMENTATION MANAGER-C Deborah Roa; Dr. Meseret Minor DO~ Signed [facility]06-07-2025 Discharge summary [facility] Medical Records Department [address] [place] [address] Emergency Department Summary 05/03/25 MR#: [id number] Acct: [id number] Name: LYNNETTE GONG Rep #:[id number] : 1970 54 From: Allan Jc DO [...] that he no longer has a headache. [facility] Medical History (Updated 05/03/25 @ 18:22 [...] following commands knew that he was at [facility] year is 2024 patient NIH of [...] 76.5 H Lymph % (Auto) 15.6 L Hodgeman % (Auto) 6.7 Eos % (Auto) 0.1 [...] 16:00 IMPRESSION: NO ACUTE FINDINGS. Reading Location: [facility] Discharge Plan Triage Chief Complaint: Hypertension ED Provider: Allan Jc Dx/Rx/DC Orders Clinical Impression: Acute hyponatremia, Hyperglycemia, Hypertension Prescriptions: No Action losartan 25 mg tablet 25 mg PO DAILY Primary Care Provider: Deborah Roa Referrals: Care Physician,No Primary [Non-Staff] - Print Language: Palestinian Disposition Disposition: Acute Care Hospital [facility] What to do if you have Problems For any increased pain, shortness of breath, bleeding, nausea or vomiting, chestpain, or any unexpected problems, contact your Primary Care Provider. Call [facility] ([phone]) or report tothe closest Emergency Room. Call 911 if necessary. 05/03/25 1822 Cosigner Signature (if applicable): CC: UMAIR Roa ~ Signed [facility]06-07-2025 Radiology Diagnostic study note [facility] Imaging Services [address] [place], [place] [address] Chest PA and Lateral MR#: [id number] Acct: [id number] Name: LYNNETTE GONG Rep #: [id number] : 1970 M 54 From: Kimberly Vaughan MD PCP: Deborah Roa NP-C Status: REG ER Study:Chest PA and Lateral Date of Exam: 05/03/25 Exam# [id number] Ordering Dr: Dhaval Jc DO PROCEDURE: CHEST [...] Lateral IMPRESSION: NO ACUTE FINDINGS. Reading Location: [id number] CC: IMPLEMENTATION MANAGER-C Deborah Roa; Dr. Allan Jc DO ~ Customer Service Administrator: Signed [facility]12-21-2022 NoteClinical Note - Pharmacy v2: Education: [...] Post-Discharge Culture Follow Up Team, please contact [phone]. . Aspen Chapa PharmD PGY1 Resident Med Electronic Signatures: Aspen Chapa (PHARM STUD) (Signed 16-Nov-2022 15:13) Authored: Education Deborah Ramirez (PharmD) (Signed 17-Nov-2022 08:30) Co-Signer: Education Last Updated: 17-Nov-2022 08:30 by Deborah Ramirez (PharmD)[facility] AssociationDis[facility] summary Author [facility] Note Date/Time May 05, 2025 10:09 am [facility] Medical Records Department [address] [address] Discharge Summary 05/05/25 1004 MR#: [id number] Acct: [id number] Name: LYNNETTE GONG Rep #:[id number] : 1970 54 From: Kevin Singh DO PCP: UMAIR Taveras Status:ADM IN Location: [place] [address] Providers Date of Admission: 05/03/25 Primary Care [...] JOE-Juju [Primary Care Provider] - 05/05/25 1006 <Electronically signed by Kevin Singh DO> Cosigner Signature (if applicable): CC: UMAIR Roa; Dr. Kevin Signh DO~ Signed ADDENDUM by Dr. Kevin Singh [...] 05/05/25 at 1009 Visit Charges Inpatient E&M: 43004 Disch Hosp 05/05/25 1009<Electronically signed by Kevin Singh DO> Cosigner Signature (if applicable): cc: UMAIR Roa; Dr. Kevin Singh DO ~* Signed [facility] Work Phone: Evaluation noteNo assessment information available [facility] Work Phone: Evaluation note* Diagnosis Onset Date Resolution Status Admit Date Acute hyponatremia acute May 032024 6:03pm Hyperglycemia acute May 03, 025 6:03pm Hypertensive urgency acute May 03, 2025 6:03pm [facility] Work Phone: History and physical note Author Meseret Minor [facility] Note Date/Time May 03, 2025 7:01p m [facility] Medical Records Department [address] [place] [address] H&P Exam - Hospitalist 05/03/25 1806 MR#: [id number] Acct: [id number] Name: LYNNETTE GONG Rep #:[id number] : 1970 54 From: Meseret Minor DO PCP: UMAIR Taveras Status:ADM IN Location: [place] [id number]- 1 HPI - General General Date of Admission: 05/03/25 Date of Service: 05/03/25 Chief Complaint: Elevated blood pressure HPI Narrative LYNNETTE GONG, is a 54 M who presented to the emergency department [facility] on 05/03/2025 with the chief complaint of [...] 76.5 H, Lymph % (Auto) 15.6 L, Hodgeman % (Auto) 6.7, Eos % (Auto) 0.1, [...] 16:00 IMPRESSION: NO ACUTE FINDINGS. Reading Location: [facility] Assessment & Plan Assessment/Plan (1) Acute [...] and asked his PCP to call in [facility] however it is too expensive for him. - We did discuss that there are other alternatives and I recommended he discuss this with his primary care physician- DVT prophylaxis - Lovenox SQ twice daily CODE STATUS - Full code Charges/Coding Visit Charges Inpatient E&M: 52286 Init Hosp L2 05/03/25 1901 <Electronically signed by Meseret Minor DO> Cosigner Signature (if applicable): CC: UMAIR Roa; Dr. Meseret Minor DO~ Signed [facility] Work Phone: Hospital Discharge instructions Additional Instructions Please return if you lose consciousness, if you develop chest pain, if you have shortness of breath we have difficulty with exertion. Please follow-up with the family practice physician Dr. Dias. Please get an outpatient stress test for further evaluation of possible heart issues.[facility] Work Phone: Hospital Discharge instructionsAdditional Instructions re x-ray consistent with constipation. Status post enema in the ED. take your MiraLAX 1 full cup of water with 1 cup every hour until you have a bowel movement. Continue your stool softeners. [facility] with [facility] Work Phone: Progress note Author Debbie Garcai [facility] Note Date/Time August 26, 2025 11:57am [facility] [address] [place] [address] OFFICE VISIT Date of Service: 08/26/25 MR#: [id number] Acct: [id number] Name: LYNNETTE GONG Rep #: [id number] : 1970 Provider: LANA Adan Age/Sex: 55/M Location: [facility] Status: Signed Intake Vital Signs 08/11/25 14:40 08/14/25 09:48 Height 5 ft 7 in 5 ft 7 in Weight: 304 lb 4 oz BMI 47.6 BP 144/87 H Respiration 18 Pulse 82 Temp 98.8 F Pulse Oximetry (%) 93 Oxygen Delivery Method room air Intake Visit Reasons: SCHEDULE FU PER ANANYA Chief Complaint: Nausea and vomiting Aviation Tactical Readiness Officer Required: No Accompanied by: Self Is patient [...] is a link to this NIH article https://pmc.ncbi.nlm.nih.gov/articles/QDJ1394207/ OV 08/26/25 - Continues to have daily [...] Cosigner Signature: Date (if applicable) CC: ~ [facility] Work Phone: Reason for referral (narrative)No reason for referral information availableWFirelands [facility] Work Phone: Chief Complaint and Reason for [...] Will No September 20 2:16pm Power of School Bus Inspector No September 20, 2022 2:16pm Advance Directive Response Recorded Date/ Time Do you have a Healthcare Power of School Bus Inspector? No May 03, 2025 3:36pm Advance Directive Response Recorded Date/ Time Do you have a Healthcare Power of School Bus Inspector? No May 03, 2025 7:20pm Advance Directive Response Recorded Date/ Time Do you have a Healthcare Power of School Bus Inspector? No May 03, 2025 7:20pm Do you have a Healthcare Power of School Bus Inspector? No June 23, 2025 5:36pm Advance Directive Response Recorded Date/ Time Do you have a Healthcare Power of School Bus Inspector? No June 23, 2025 4:36pm Do you have a Healthcare Power of School Bus Inspector? No September 15, 2025 12:45pm Summary Purpose [...] section and content) DATE CREATED AUTHOR 11/18/2022 [facility] DATE CREATED AUTHOR AUTHOR'S ORGANIZ ATION 10/04/2025 [facility] Care Teams (unrecognized sec tion and content) Team Status: Active Member Role Status Dates Deborah Roa NP-C Primary Care Provider Active Team Status: Inactive [...] Start: May 05, 2025 Deborah Roa , IMPLEMENTATION MANAGER-C Primary Care Provider Active Start: May 05, [...] Start: May 03, 2025 Deborah Roa , IMPLEMENTATION MANAGER-C Primary Care Provider Active Start: May 03, [...] End: May 12, 2025 Deborahtony Roa , IMPLEMENTATION MANAGER-C Primary Care Provider Active Start: May 12, 2025 End: May 12, 2025 Team Status: Active Member Role/Relationship Status Dates Deborah Roa , IMPLEMENTATION MANAGER-C Primary Care Provider Active Team Status: Inactive Member Role/Relationship Status Dates Dr. Allan Jc DO Emergency Provider Active Start: May 03, 2025 End: May 05, 2025 Deborah Roa , IMPLEMENTATION MANAGER-C Primary Care Provider Active Start: May 03, [...] Active Start: May 03, 2025 Deborah Roa IMPLEMENTATION MANAGER-C Primary Care Provider Active Start: May 03, [...] Active Start: May 04, 2025 Deborah Roa IMPLEMENTATION MANAGER-C Primary Care Provider Active Start: May 04, [...] Start: May 05, 2025 Deborah Roa , IMPLEMENTATION MANAGER-C Primary Care Provider Active Start: May 05, [...] End: May 12, 2025 Deborah Roa , IMPLEMENTATION MANAGER-C Primary Care Provider Active Start: May 12, 2025 End: May 12, 2025 Team Status: Inactive Member Role/Relationship Status Dates Deborah Roa , IMPLEMENTATION MANAGER-C Primary Care Provider Active Start: May 20, 2025 End: May 20, 2025 Deborah Crispin , IMPLEMENTATION MANAGER-C Attending Provider Active St art: May 20, 2025 End: May 20, 2025 Team Status: Inactive Member Role/Relationship Status Dates Deborah Crispin , IMPLEMENTATION MANAGER-C Primary Care Provider Active Start: May 29, 2025 End: May 29, 2025 Deborah Crispin , IMPLEMENTATION MANAGER-C Attending Provider Active St art: May 29, 2025 End: May 29, 2025 Team Status: Inactive Member Role/Relationship Status Dates Deborah Crispin , IMPLEMENTATION MANAGER-C Primary Care Provider Active Start: June 10, 2025 End: June 10, 2025 Deborah Stephensongar , IMPLEMENTATION MANAGER-C Referring Provider Active St art: June 10, 2025 End: June 10, 2025 Anay Jorgito IMPLEMENTATION MANAGER, IMPLEMENTATION MANAGER-C Attending Provider Active Start: June 10, 2025 End: June 10, 2025 Team Status: Inactive Member Role/Relationship Status Dates Deborah Crispin , IMPLEMENTATION MANAGER-C Primary Care Provider Active Start: June 10, 2025 End: June 10, 2025 Anay Jorgito IMPLEMENTATION MANAGER, IMPLEMENTATION MANAGER-C Attending Provider Active Start: June 10, 2025 End: June 10, 2025 Anay Jorgito IMPLEMENTATION MANAGER, IMPLEMENTATION MANAGER-C Referring Provider Active Start: June 10, 2025 End: June 10, 2025 Team Status: Inactive Member Role/Relationship Status Dates Deborah Crispin , IMPLEMENTATION MANAGER-C Primary Care Provider Active Start: June 17, 2025 End: June 17, 2025 Deborahtony Roa , IMPLEMENTATION MANAGER-C Attending Provider Active St art: June 17, 2025 End: June 17, 2025 Deborah Roa , IMPLEMENTATION MANAGER-C Referring Provider Active St art: June 17, 2025 End: June 17, 2025 Team Status: Inactive Member Role/Relationship Status Dates Deborah Crispin , IMPLEMENTATION MANAGER-C Primary Care Provider Active Start: June 23, 2025 End: June 23, 2025 Dr. Juan Rush DO Emergency Provider Active Start : June 23, 2025 End: June 23, 2025 Team Status: Inactive Member Role/Relationship Status Dates Deborah Crispin , IMPLEMENTATION MANAGER-C Primary Care Provider Active Start: June 23, 2025 End: June 23, 2025 Dr. Juan Rush DO Attending Provider Active Start : June 23, 2025 End: June 23, 2025 Dr. Juan Rush , DO Emergency Provider Active Start : June 23, 2025 End: June 23, 2025 Team Status: Inactive Member Role/Relationship Status Dates Deborah Roa , IMPLEMENTATION MANAGER-C Primary Care Provider Active Start: July 17, 2025 End: July 17, 2025 Deborah Roa , IMPLEMENTATION MANAGER-C Referring Provider Active St art: July 17, 2025 End: July 17, 2025 Elizabet Diop IMPLEMENTATION MANAGER-C Attending Provider Active Start: July 17, 2025 End: July 17, 2025 Team Status: Active Member Role/Relationship Status Dates Deborah Roa , IMPLEMENTATION MANAGER-C Primary Care Provider Active Start: July 17, 2025 Elizabet Diop , IMPLEMENTATION MANAGER-C Attending Provider Active Start: July 17, 2025 Elizabet Diop IMPLEMENTATION MANAGER-C Referring Provider Active Start: July 17, 2025 Team Status: Inactive Member Role/Relationship Status Dates Deborahtony Roa , IMPLEMENTATION MANAGER-C Primary Care Provider Active Start: June 10, 2025 End: June 10, 2025 Anay Bull IMPLEMENTATION MANAGER, IMPLEMENTATION MANAGER-C Attending Provider Active Start: June 10, 2025 End: June 10, 2025 Anay Bull IMPLEMENTATION MANAGER, IMPLEMENTATION MANAGER-C Referring Provider Active Start: June 10, 2025 End: June 10, 2025 Team Status: Inactive Member Role/Relationship Status Dates Deborah Roa , IMPLEMENTATION MANAGER-C Primary Care Provider Active Start: July 17, 2025 End: July 17, 2025 Elizabet Diop IMPLEMENTATION MANAGER-C Attending Provider Active Start: July 17, 2025 End: July 17, 2025 Elizabet Diop IMPLEMENTATION MANAGER-C Referring Provider Active Start: July 17, 2025 End: July 17, 2025 Team Status: Inactive Member Role/Relationship Status Dates Deborah Roa , IMPLEMENTATION MANAGER-C Primary Care Provider Active Start: August 04, 2025 End: August 04, 2025 Deborah Roa , IMPLEMENTATION MANAGER-C Attending Provider Active St art: August 04, 2025 End: August 04, 2025 Team Status: Inactive Member Role/Relationship Status Dates Deborahtony Roa , IMPLEMENTATION MANAGER-C Primary Care Provider Active Start: August 11, 2025 End: August 11, 2025 Deborah Roa , IMPLEMENTATION MANAGER-C Referring Provider Active St art: August 11, 2025 End: August 11, 2025 Elizabet Jadon , IMPLEMENTATION MANAGER-C Attending Provider Active Start: August 11, 2025 End: August 11, 2025 Team Status: Active Member Role/Relationship Status Dates Deborah Roa NP-C Primary care physician Active Team Status: Inactive Member Role/Relationship Status Dates Dr. Allan Jc DO Emergency Department Physician A ctive Start: May 03, 2025 End: May 05, 2025 Deborah Roa NP-C Primary care physician Active Start: May 03, [...] ctive Start: May 03, 2025 Deborah Roa IMPLEMENTATION MANAGER-C Primary care physician Active Start: May 03, [...] ctive Start: May 05, 2025 Deborah Roa IMPLEMENTATION MANAGER-C Primary care physician Active Start: May 05, 2025 Dr. Meseret Minor DO Admitting physician Active Start: May 05, 2025 Dr. Meseret Minor , DO Nurse Practitioner Active S tart: May 05, 2025 Dr. Kevin Singh , Attending physician Active Start: May 05, 2025 Dr. Kevin Singh , DO Nurse Practitioner Active Start: May 05, 2025 Team Status: Inactive Member Role/Relationship Status Dates No Primary Care Physician Referring Provider Active Start: May 12, 2025 End: May 12, 2025 Dr. Betty Steel MD Attending physician Active Start: May 12, 2025 End: May 12, 2025 Deborah Crispin , IMPLEMENTATION MANAGER-C Primary care physician Active Start: May 12, 2025 End: May 12, 2025 Team Status: Inactive Member Role/Relationship Status Dates Deborah Crispin , IMPLEMENTATION MANAGER-C Primary care physician Active Start: May 20, 2025 End: May 20, 2025 Deborah Crispin , IMPLEMENTATION MANAGER-C Attending physician Active S tart: May 20, 2025 End: May 20, 2025 Team Status: Inactive Member Role/Relationship Status Dates Deborah Crispin , IMPLEMENTATION MANAGER-C Primary care physician Active Start: May 29, 2025 End: May 29, 2025 Deborah Crispin , IMPLEMENTATION MANAGER-C Attending physician Active S tart: May 29, 2025 End: May 29, 2025 Team Status: Inactive Member Role/Relationship Status Dates Deborah Crispin , IMPLEMENTATION MANAGER-C Primary care physician Active Start: June 10, 2025 End: June 10, 2025 Anay Jorgito IMPLEMENTATION MANAGER, IMPLEMENTATION MANAGER-C Attending physician Active Start: June 10, 2025 End: June 10, 2025 Anay Jorgito IMPLEMENTATION MANAGER, IMPLEMENTATION MANAGER-C Referring Provider Active Start: June 10, 2025 End: June 10, 2025 Team Status: Inactive Member Role/Relationship Status Dates Deborah Crispin , IMPLEMENTATION MANAGER-C Primary care physician Active Start: June 10, 2025 End: June 10, 2025 Anay Jorgito IMPLEMENTATION MANAGER, IMPLEMENTATION MANAGER-C Attending physician Active Start: June 10, 2025 End: June 10, 2025 Anay Jorgito IMPLEMENTATION MANAGER, IMPLEMENTATION MANAGER-C Referring Provider Active Start: June 10, 2025 End: June 10, 2025 Team Status: Inactive Member Role/Relationship Status Dates Deborahtony Roa , IMPLEMENTATION MANAGER-C Primary care physician Active Start: June 17, 2025 End: June 17, 2025 Deborah Roa , IMPLEMENTATION MANAGER-C Attending physician Active S tart: June 17, 2025 End: June 17, 2025 Deborah Roa , IMPLEMENTATION MANAGER-C Referring Provider Active St art: June 17, 2025 End: June 17, 2025 Team Status: Inactive Member Role/Relationship Status Dates Deborah Roa , IMPLEMENTATION MANAGER-C Primary care physician Active Start: June 23, 2025 End: June 23, 2025 Dr. Juan Rush DO Attending physician Active Star t: June 23, 2025 End: June 23, 2025 Dr. Juan Rush , Emergency Department Physician Active Start: June 23, 2025 End: June 23, 2025 Team Status: Inactive Member Role/Relationship Status Dates Deborah Roa IMPLEMENTATION MANAGER-C Primary care physician Active Start: July 17, 2025 End: July 17, 2025 Deborah Roa , IMPLEMENTATION MANAGER-C Referring Provider Active St art: July 17, 2025 End: July 17, 2025 Elizabet Diop NP-C Attending physician Active Start: July 17, 2025 End: July 17, 2025 Team Status: Inactive Member Role/Relationship Status Dates Deborah Roa , IMPLEMENTATION MANAGER-C Primary care physician Active Start: July 17, 2025 End: July 17, 2025 Elizabet Diop NP-C Attending physician Active Start: July 17, 2025 End: July 17, 2025 Elizabet Diop NP-C Referring Provider Active Start: July 17, 2025 End: July 17, 2025 Team Status: Inactive Member Role/Relationship Status Dates Deborah Roa , IMPLEMENTATION MANAGER-C Primary care physician Active Start: August 04, 2025 End: August 04, 2025 Deborah Roa , IMPLEMENTATION MANAGER-C Attending physician Active S tart: August 04, 2025 End: August 04, 2025 Team Status: Inactive Member Role/Relationship Status Dates Deborah Roa , IMPLEMENTATION MANAGER-C Primary care physician Active Start: August 11, 2025 End: August 11, 2025 Deborah Roa , IMPLEMENTATION MANAGER-C Referring Provider Active St art: August 11, 2025 End: August 11, 2025 Elizabet Diop NP-C Attending physician Active Start: August 11, 2025 End: August 11, 2025 Team Status: Inactive Member Role/Relationship Status Dates Deborah Crispin , IMPLEMENTATION MANAGER-C Primary care physician Active Start: August 14, 2025 End: August 14, 2025 Elizabet Diop IMPLEMENTATION MANAGER-C Attending physician Active Start: August 14, 2025 End: August 14, 2025 Elizabet Diop , IMPLEMENTATION MANAGER-C Referring Provider Active Start: August 14, 2025 End: August 14, 2025 Team Status: Inactive Member Role/Relationship Status Dates Deborah Roa , IMPLEMENTATION MANAGER-C Primary care physician Active Start: August 26, 2025 End: August 26, 2025 Deborah Roa , IMPLEMENTATION MANAGER-C Referring Provider Active St art: August 26, 2025 End: August 26, 2025 LANA Adan Attending physician Active Start: August 26, 2025 End: August 26, 2025 Team Status: Inactive Member Role/Relationship Status Dates Deborah Roa , IMPLEMENTATION MANAGER-C Primary care physician Active Start: June 10, 2025 End: June 10, 2025 Anay Bull NP, IMPLEMENTATION MANAGER-C Attending physician Active Start: June 10, 2025 End: June 10, 2025 Anay Bull IMPLEMENTATION MANAGER, IMPLEMENTATION MANAGER-C Referring Provider Active Start: June 10, 2025 End: June 10, 2025 Team Status: Inactive Member Role/Relationship Status Dates Deborah Roa IMPLEMENTATION MANAGER-C Primary care physician Active Start: June 10, 2025 End: June 10, 2025 Anay Bull NP, IMPLEMENTATION MANAGER-C Attending physician Active Start: June 10, 2025 End: June 10, 2025 Anay Bull IMPLEMENTATION MANAGER, IMPLEMENTATION MANAGER-C Referring Provider Active Start: June 10, 2025 End: June 10, 2025 Team Status: Inactive Member Role/Relationship Status Dates Deborah Roa , IMPLEMENTATION MANAGER-C Primary care physician Active Start: June 17, 2025 End: June 17, 2025 Deborah Roa , IMPLEMENTATION MANAGER-C Attending physician Active S tart: June 17, 2025 End: June 17, 2025 Deborah Roa , IMPLEMENTATION MANAGER-C Referring Provider Active St art: June 17, 2025 End: June 17, 2025 Team Status: Inactive Member Role/Relationship Status Dates Deborah Roa , IMPLEMENTATION MANAGER-C Primary care physician Active Start: June 23, 2025 End: June 23, 2025 Dr. Juan Rush DO Attending physician Active Star t: June 23, 2025 End: June 23, 2025 Dr. Juan Rush , Emergency Department Physician Active Start: June 23, 2025 End: June 23, 2025 Team Status: Inactive Member Role/Relationship Status Dates Deborah Roa , IMPLEMENTATION MANAGER-C Primary care physician Active Start: July 17, 2025 End: July 17, 2025 Deborah Roa IMPLEMENTATION MANAGER-C Referring Provider Active St art: July 17, 2025 End: July 17, 2025 Elizabet Diop IMPLEMENTATION MANAGER-C Attending physician Active Start: July 17, 2025 End: July 17, 2025 Team Status: Inactive Member Role/Relationship Status Dates Deborah Roa IMPLEMENTATION MANAGER-C Primary care physician Active Start: July 17, 2025 End: July 17, 2025 Elizabet Diop IMPLEMENTATION MANAGER-C Attending physician Active Start: July 17, 2025 End: July 17, 2025 Elizabet Diop IMPLEMENTATION MANAGER-C Referring Provider Active Start: July 17, 2025 End: July 17, 2025 Team Status: Inactive Member Role/Relationship Status Dates Deborah Roa IMPLEMENTATION MANAGER-C Primary care physician Active Start: August 04, 2025 End: August 04, 2025 Deborah Roa IMPLEMENTATION MANAGER-C Attending physician Active S tart: August 04, 2025 End: August 04, 2025 Team Status: Inactive Member Role/Relationship Status Dates Deborah Roa IMPLEMENTATION MANAGER-C Primary care physician Active Start: August 11, 2025 End: August 11, 2025 Deborah Roa IMPLEMENTATION MANAGER-C Referring Provider Active St art: August 11, 2025 End: August 11, 2025 Elizabet Diop IMPLEMENTATION MANAGER-C Attending physician Active Start: August 11, 2025 End: August 11, 2025 Team Status: Inactive Member Role/Relationship Status Dates Deborah Roa IMPLEMENTATION MANAGER-C Primary care physician Active Start: August 14, 2025 End: August 14, 2025 Elizabet Diop IMPLEMENTATION MANAGER-C Attending physician Active Start: August 14, 2025 End: August 14, 2025 Elizabet Diop IMPLEMENTATION MANAGER-C Referring Provider Active Start: August 14, 2025 End: August 14, 2025 Team Status: Inactive Member Role/Relationship Status Dates Deborah Crispin , IMPLEMENTATION MANAGER-C Primary care physician Active Start: August 26, 2025 End: August 26, 2025 Deborah Roa , IMPLEMENTATION MANAGER-C Referring Provider Active St art: August 26, 2025 End: August 26, 2025 LANA Adan Attending physician Active Start: August 26, 2025 End: August 26, 2025 Team Status: Inactive Member Role/Relationship Status Dates Deborah Roa IMPLEMENTATION MANAGER-C Primary care physician Active Start: September 17, 2025 End: September 17, 2025 Deborah Roa , IMPLEMENTATION MANAGER-C Referring Provider Active St art: September 17, 2025 End: September 17, 2025 Dr. Tito Morris DO Attending physician Active Start: September 17, 2025 End: September 17, 2025 Team Status: Active Member Role/Relationship Status Dates Deborah Roa IMPLEMENTATION MANAGER-C Primary care physician Active Start: September 17, 2025 Deborah Roa , IMPLEMENTATION MANAGER-C Referring Provider Active St art: September 17, 2025 Dr. Tito Morris DO Attending physician Active Start: September 17, 2025 Dr. Tito Morris DO Nurse Practitioner Active Start: September 17, 2025 Team Status: Inactive Member Role/Relationship Status Dates Deborah Roa IMPLEMENTATION MANAGER-C Primary care physician Active Start: September 23, 2025 End: September 23, 2025 Deborah Roa , IMPLEMENTATION MANAGER-C Referring Provider Active St art: September 23, 2025 End: September 23, 2025 LANA Adan Attending physician Active Start: September 23, 2025 End: September 23, 2025 Team Status: Inactive Member Role/Relationship Status Dates Deborah Roa IMPLEMENTATION MANAGER-C Primary care physician Active Start: September 23, [...] BE BASED ON THE PRIMARY CLINICAL RECORDS. [employer] [facility]. provides no warranty or guarantee of the accuracy or completeness of information in this document.
[2025-11-03 20:00] VITALS: BP 144/96; PULSE 81; RESP 18; O2SAT 96
[2025-11-03 20:33] VITALS: BMI 38.2
[2025-11-03 20:38] VITALS: BP 150/90; PULSE 95; RESP 18; TEMP 36.3; O2SAT 99
--- NOTE | 2025-11-03 20:40 | ECHOCS_ITS ---
Reason For Study Reason For Study: Chest Pain Procedure This was a 2D Doppler, Color Flow transthoracic echocardiogram. Contrast injection was performed. Exam performed portable in patient room. Left Ventricle Normal-sized left ventricle. Left ventricular EF by Yañez's biplane: 69%. Normal diastolic function. No regional wall motion abnormalities noted. Right Ventricle Normal right ventricle. Normal systolic function. Unable to estimate RV systolic pressure due to insufficient tricuspid regurgitant envelope. Atria The left and right atria are normal. Right atrial pressure is estimated at: 3 mmHg. Mitral Valve Normal mitral valve. Trace mitral regurgitation. No mitral stenosis. Tricuspid Valve Normal tricuspid valve. Trace tricuspid regurgitation. No tricuspid stenosis. Aortic Valve Normal trileaflet aortic valve. Mild aortic regurgitation. No hemodynamically significant aortic stenosis. Pulmonic Valve Normal pulmonic valve. No pulmonic stenosis. No pulmonic regurgitation. Great Vessels Normal sized aortic root. Normal ascending aorta. Pericardium/Pleural Moderate sized pericardial effusion. Measuring 1.3 cm. Mitral inflow respiratory E velocity variations less than 25%. No persistent early diastolic RV compression. Notably IVC measures 1.9 cm and collapses fully. No definite evidence of pretamponade physiology. Medication Diluted definity 2ml given slow IV push to enhance endocardial definition. MMode/2D Measurements & Calculations LVIDd: 4.4 cm IVSd: 1.4 cm Ao root diam: 3.7 cm LVIDs: 2.4 cm LVPWd: 1.5 cm RVDd: 3.9 cm FS: 45.4 % LAV(MOD-bp): 63.6 ml LVAd ap4: 32.2 cm2 SV(MOD-sp4): 72.7 ml LAV(MOD-sp2): 51.9 ml LVLd ap4: 8.0 cm LAV(MOD-sp4): 71.4 ml EDV(MOD-sp4): 105.6 ml EDV(sp4-el): 110.6 ml LVAs ap4: 16.9 cm2 LVLs ap4: 7.3 cm ESV(MOD-sp4): 32.8 ml ESV(sp4-el): 33.4 ml EF(MOD-sp4): 68.9 % EF(sp4-el): 69.8 % SV(sp4-el): 77.2 ml LA A4 area: 22.3 cm2 LA dimension(2D): 4.0 cm RA A4 area: 14.1 cm2 TAPSE: 2.3 cm Time Measurements MV dec time: 0.19 sec Doppler Measurements & Calculations MV E max chinmay: 90.5 cm/sec Lat Peak E' Chinmay: 10.8 cm/sec Med Peak E' Chinmay: 9.6 cm/sec MV A max chinmay: 100.9 cm/sec E/E' lat: 8.3 E/E' med: 9.5 MV E/A: 0.90 MV dec slope: 505.9 cm/sec2 Ao V2 max: 170.3 cm/sec LV V1 max: 113.9 cm/sec Ao max P.6 mmHg LV V1 max P.2 mmHg Ao V2 mean: 118.5 cm/sec Ao mean P.5 mmHg Ao V2 VTI: 34.1 cm PA V2 max: 117.3 cm/sec ECHO/Echo Complete W/ Contrast Interpretation Summary Normal left ventricular systolic function Normal left ventricular diastolic function Normal left ventricular wall motion Normal right ventricular systolic function Mild aortic regurgitation Moderate-sized circumferential pericardial effusion without definite evidence o f pre-tamponade physiology Please order a repeat echocardiogram in 1 to 2 weeks for surveillance of perica rdial effusion and valvular surveillance echocardiogram in 3 to 5 years for aortic regurgitation. Ordering Physician: Criselda Funez Performed By: Naeem Michel RCS
[2025-11-03] MEDS: Nicotine (PBKC) 21 MG Patch TD (21:09)
[2025-11-03] MEDS: AMOXICILLIN 500 MG CAPSULE PO (21:09)
[2025-11-03] MEDS: Potassium Chloride 10mEq/100mL 10 MEQ/100 ML IV.SOLN. 100 MEQ IV BOLUS (21:11)
[2025-11-03 21:17] LABS: Troponin T High Sens 4 HR 13 ng/L (<=22)
--- NOTE | 2025-11-03 21:55 | EKG12_ITS ---
Test Reason : CP ADMIT Blood Pressure : */* mmHG Vent. Rate : 79 BPM Atrial Rate : 79 BPM P-R Int : 158 ms QRS Dur : 174 ms QT Int : 454 ms P-R-T Axes : 59 -47 25 degrees QTcB Int : 520 ms Normal sinus rhythm Right bundle branch block Left anterior fascicular block Bifascicular block Abnormal ECG Baseline wander/artifact Confirmed by Noé Ken ([id number]), tomographic tech TITO FRIAS ([id number]) on 11/05/2025 1:05:50 PM Referred By: Confirmed By: Noé Ken
[2025-11-03 21:57] LABS: Lipase 23 U/L (13-75)
[2025-11-03] MEDS: Potassium Chloride 10mEq/100mL 10 MEQ/100 ML IV.SOLN. 50 MEQ IV BOLUS (22:43)
[2025-11-04] MEDS: Pantoprazole Sodium 40 MG in 0.9% Normal Saline (100mL MB+) 100 ML 330 MG IV ×3 (00:52→21:47)
[2025-11-04 04:19] VITALS: BP 158/75; PULSE 75; RESP 16; TEMP 36.6; O2SAT 100
[2025-11-04] MEDS: AMOXICILLIN 500 MG CAPSULE PO ×3 (04:31→21:47)
[2025-11-04 05:20] LABS: Hematocrit 37.7 % (40-54); Hemoglobin 13.2 g/dL (13.0-16.5); Immature Granulocytes Count 0.030 X10^3/uL (0.0-0.0); Mean Corp Hgb Conc 35.0 g/dL (32-36); Mean Corpuscular Volume 78.9 fL (80-94); Mean Platelet Vol. 10.0 fl (6.2-12.0); NRBC Flagged by Analyzer 0 % (0-5); Platelet Count 249 K/mm3 (150-450); RBC Distribution Width CV 13.7 % (11.6-14.6); RBC Distribution Width SD 39.2 fl (35.1-43.9); Red Blood Count 4.78 M/mm3 (4.6-6.2); White Blood Count 6.3 K/mm3 (4.4-11.0)
[2025-11-04 05:45] LABS: Anion Gap 14 (5-15); BUN 5 mg/dL (4-19); BUN/Creat Ratio 6.7 RATIO (10-20); Calcium,Total 9.2 mg/dL (7.6-11.0); Carbon Dioxide 26.2 mmol/L (21.0-32.0); Chloride 83 mmol/L (98-108); Estimated Creatinine Clearance 158.25 ml/min (50-250); Glucose 91 mg/dL (70-99); Potassium 3.0 mmol/L (3.3-5.1)
[2025-11-04] MEDS: Potassium Chloride Oral Tablet 20 MEQ PO (08:56)
--- NOTE | 2025-11-04 09:57 | PN.HOSP_ITS ---
Subjective Subjective Still having the epigastric/chest pain Objective Data Objective Data Vital Signs: Vital Signs Temp Pulse Resp BP Pulse Ox O2 Del Method 97.9 F 75 16 158/75 H 100 Room Air 11/04/25 04:19 11/04/25 04:19 11/04/25 04:19 11/04/25 04:19 11/04/25 04:19 11/04/25 04:46 Oxygen Delivery Method Room Air Weight: 266 lb 15.677 oz Body Mass Index (BMI) 38.2 Intake & Output: Intake and Output for Last 24 Hours 11/03/25 11/04/25 11/05/25 03:59 03:59 03:59 Intake Total 400 / 400 100 / 100 Balance 400 / 400 100 / 100 Lab / Micro Data 11/04/25 04:47 11/04/25 04:47 Labs: Laboratory Results - last 24 hr 11/03/25 15:30: WBC 6.1, RBC 4.88, Hgb 13.9, Hct 38.1 L, MCV 78.1 L, MCH 28.5, M CHC 36.5 H D, RDW Std Deviation 38.2, RDW Coeff of Senia 13.5, Plt Count 257, MPV 9.8, Immature Gran % (Auto) 0.200, Neut % (Auto) 63.9, Lymph % (Auto) 23.4, Throckmorton % (Auto) 10.5 H, Eos % (Auto) 1.3, Baso % (Auto) 0.7, Absolute Neuts (auto) 3.9, Absolute Lymphs (auto) 1.42, Nucleated RBC % 0, Sodium 125 L, Potassium 2.8 L, C hloride 83 L, Carbon Dioxide 27.2, Anion Gap 15, BUN 4, Creatinine 0.66 L, Est GFR (MDRD) Non-Af 110, BUN/Creatinine Ratio 5.9 L, Glucose 102 H, Calcium 9.6, T roponin T High Sens 14 D, NT pro BNP II < 36 11/03/25 17:29: Troponin T Hi Sens 2 Hr 12 11/03/25 20:36: Troponin T Hi Sens 4Hr 13, Lipase 23 11/04/25 04:47: WBC 6.3, RBC 4.78, Hgb 13.2, Hct 37.7 L, MCV 78.9 L, MCH 27.6, MCHC 35.0, RDW Std Deviation 39.2, RDW Coeff of Senia 13.7, Plt Count 249, MPV 10.0, Immature Gran % (Auto) 0.500, Neut % (Auto) 60.1, Lymph % (Auto) 27.4, Th[place]morton % (Auto) 9.6, Eos % (Auto) 1.6, Baso % (Auto) 0.8, Absolute Neuts (auto) 3.8, Absolute Lymphs (auto) 1.72, Nucleated RBC % 0, Sodium 123 L, Potassium 3.0 L, Chloride 83 L, Carbon Dioxide 26.2, Anion Gap 14, BUN 5, Creatinine 0.68 L, Estim Creat Clear Calc 158.25, Est GFR (MDRD) Non-Af 109, BUN/Creatinine Ratio 6.7 L, Glucose 91, Calcium 9.2 Radiography Diagnostic Testing: Radiology Impression Chest X-Ray 11/03/25 15:26 IMPRESSION: Probable edema. Reading Location: [facility] Physical Exam Narrative General: Alert, Oriented x3, Cooperative, No apparent distress HEENT: Atraumatic, PERRLA, EOMI, Normocephalic Oral: Moist Mucosa Neck: Supple, No JVD Lungs: Diminished, Normal air movement, No rhonchi, No wheeze, No rales Cardiovascular: Regular rate, Regular Rhythm, Normal S1, Normal S2, No murmurs Abdomen: Soft, Non Tender, Non-Distended, No Hepato-splenomegaly Extremities: No edema, Capillary Refill Less than 3 Seconds Skin: No rashes, No breakdown Musculoskeletal: No Tenderness to Palpation of Joints or Extremities Neurological: No focal neurological deficits, moves all extremities, tremor Psych/Mental Status: Flat Assessment & Plan Assessment/Plan (1) Chest pain: PLAN: Plan 1. Chest pain ? EKG is nonischemic and troponins are negative ? Echo is pending ? He did have an EGD with significant gastritis and was treated for candidiasis with fluconazole and he was not on a PPI ? Continue with PPIs also some concern for for withdrawal as he does admit to kratom use, does not want to do detox however will provide symptomatic management 2. Lymphoma ? New diagnosis being managed by [facility] ? Unclear if any chest mass is the culprit for this chest pain 2. Hypokalemia and hyponatremia ? Continue to fluid restriction for hyponatremia, his sodium did get a little bit worse to 123 ? Will check a mag and Phos ? Will replace potassium as indicated 3. Essential HTN ? Stable ? Continue with losartan DVT: SCDs Charges/Coding Visit Charges Inpatient E&M: 33463 Subs Hosp L2
[2025-11-04] MEDS: Nicotine (PBKC) 21 MG Patch TD (10:57)
[2025-11-04] MEDS: hydrOXYzine PAM 25 MG Capsule 50 MG PO (12:29)
[2025-11-04 15:15] VITALS: BMI 38.9
--- NOTE | 2025-11-04 16:00 | CASEMGMT ---
Dx: Chest pain LACE: 2 6-Clicks: 22 Medical record reviewed and patient evaluated for identification of discharge planning needs. Based on this review, at this time criteria are not present to indicate a need for discharge planning. Will remain available to assist with discharge planning needs as identified or requested.
[2025-11-04 16:21] VITALS: BP 155/96; PULSE 70; RESP 15; TEMP 36.8; O2SAT 100
[2025-11-04 18:31] VITALS: BP 172/92; PULSE 72; RESP 16; TEMP 36.4; O2SAT 99
[2025-11-04 18:58] LABS: Magnesium 1.6 mg/dL (1.5-2.2)
[2025-11-04 20:14] VITALS: BP 155/94; PULSE 70; RESP 20; TEMP 36.6; O2SAT 96
[2025-11-04] MEDS: 0.9% Saline Lock 10 ML Syringe IV ×2 (20:19→21:50)
[2025-11-05] VITALS (7 sets, daily range): BP systolic 145–173; BP diastolic 87–111; PULSE 62–82; RESP 18–22; TEMP 36.4–36.7; O2SAT 95–98
[2025-11-05] MEDS: 0.9% Saline Lock 10 ML Syringe IV ×5 (02:46→16:01)
[2025-11-05] MEDS: AMOXICILLIN 500 MG CAPSULE PO ×3 (05:52→21:17)
[2025-11-05 05:56] LABS: Hematocrit 32.5 % (40-54); Hemoglobin 12.2 g/dL (13.0-16.5); Immature Granulocytes Count 0.010 X10^3/uL (0.0-0.0); Mean Corp Hgb Conc 37.5 g/dL (32-36); Mean Corpuscular Volume 77.6 fL (80-94); Mean Platelet Vol. 9.9 fl (6.2-12.0); NRBC Flagged by Analyzer 0 % (0-5); Platelet Count 195 K/mm3 (150-450); RBC Distribution Width CV 13.7 % (11.6-14.6); RBC Distribution Width SD 38.7 fl (35.1-43.9); Red Blood Count 4.19 M/mm3 (4.6-6.2); White Blood Count 5.3 K/mm3 (4.4-11.0)
[2025-11-05 06:26] LABS: Anion Gap 15 (5-15); BUN 5 mg/dL (4-19); BUN/Creat Ratio 8.1 RATIO (10-20); Calcium,Total 8.8 mg/dL (7.6-11.0); Carbon Dioxide 24.6 mmol/L (21.0-32.0); Chloride 84 mmol/L (98-108); Estimated Creatinine Clearance 174.98 ml/min (50-250); Glucose 98 mg/dL (70-99); Potassium 2.9 mmol/L (3.3-5.1)
[2025-11-05] MEDS: Potassium Chloride Oral Tablet 20 MEQ 60 MEQ PO (08:19)
[2025-11-05] MEDS: Ensure Clear 120 ML Liquid PO ×3 (08:21→17:16)
[2025-11-05] MEDS: Magnesium Sulfate 2 GM in Dextrose 5%-Water (100mL Bag) 100 ML IV (09:12)
[2025-11-05] MEDS: Nicotine (PBKC) 21 MG Patch TD (09:14)
[2025-11-05] MEDS: Potassium Chloride Oral Tablet 20 MEQ PO (09:15)
[2025-11-05] MEDS: Albuterol 2.5 MG/3 ML VIAL.NEB. INHALATION ×2 (10:25→14:16)
[2025-11-05] MEDS: hydrOXYzine PAM 25 MG Capsule 50 MG PO (11:35)
[2025-11-05] MEDS: Pantoprazole Sodium 40 MG in 0.9% Normal Saline (100mL MB+) 100 ML 330 MG IV ×2 (11:46→21:18)
--- NOTE | 2025-11-05 15:57 | EX.PCM.CON.S ---
Assessment & Plan Assessment/Plan (1) Lymphadenopathy, generalized: PLAN: I have been consulted in conjunction with Dr. Steel. She will independently evaluate this patient. Patient is a 55 y/o M who has had an approximate 6 month weight loss of 50 pounds unintentionally along with increased shortness of breath and chest pain. CT of chest identified enlarged lymph nodes in the left axilla, mediastinum and adrenal gland. Patient had a formal left axillary soft tissue u/s in preparation for a biopsy of the lymph node. Dr. Steel will plan to perform a bedside u/s guided lymph node biopsy of the left axilla. Procedure details, risks and benefits have been explained to the patient. Patient verbally understands and agrees with the plan. Plan will be to perform biopsy tomorrow. Patient may continue to eat and drink prior to the procedure. Thank you for allowing us to participate in this patient's care. HPI Consult Data Date of Consult: 11/05/25 HPI Narrative Reason for Consultation: Left axillary biopsy HPI Narrative: LYNNETTE GONG, is a 55 M who presents to the ED with chest pain and increased shortness of breath. Patient had presented to our office on Monday for an appointment with Dr. Almazan and was having difficulties catching his breath and noting chest pain. Patient was scheduled to have a biopsy of the left axillary lymph node. He was sent to the ED from our office and was admitted. Patient states he has noted increased shortness of breath and chest pain for approximately 6 months. He has noted an unintentional 50 pound weight loss for around that approximate timeframe as well. He is a smoker for 37 years. He notes feeling fatigued over the last several months. He has been to the ED multiple times for chest pain. His ED visit on 10/22, he had a CTA of the chest which demonstrated mediastinal masses, left axillary lesion, mass on the left main pulmonary artery and left adrenal masses. Imaging noted to consider lymphoma as a diagnosis. Patient has not had an official biopsy to confirm a diagnosis of lymphoma. Patient had an official ultrasound of the left axilla on 10/30/25 which demonstrated 3 enlarged lymph nodes with the largest measuring 4.6 x 3.5 x 2.3 cm. CTA of ab/pel/chest was completed on 10/30 and demonstrated: IMPRESSION: No evidence of pulmonary embolism. Similar to CTA October 22, 2025, extensive confluent mediastinal and left hilar lymphadenopathy causing encasement and narrowing of the left main pulmonary artery. Atelectasis and small pleural effusion in the left lower lobe. Left adrenal mass measures 2.4 x 1.4 cm concerning for metastasis. [facility] Medical History Lymphadenopathy, generalized Emphysema, unspecified Wears glasses Loose, teeth Ambulates with cane High cholesterol Heartburn Gastric reflux Chronic cough Chest pain History of CVA (cerebrovascular accident) Back pain Arthritis Essential (primary) hypertension Osteoarthritis of knees, bilateral Tobacco use disorder, continuous Encounter for screening for malignant neoplasm of lung Constipation Chronic pain Smoker Migraines TIA (transient ischemic attack) HTN (hypertension) Morbid obesity Home Medications ?Medication ?Instructions ?Recorded ?Last Taken ?Type losartan 100 mg tablet 100 mg PO DAILY #30 tabs 05/05/25 11/02/25 Rx amoxicillin 500 mg capsule 500 mg PO TID 11/03/25 11/03/25 History fluconazole 200 mg tablet 200 mg PO DAILY PRN 11/03/25 Unknown History hydrocodone 10 mg-acetaminophen 1 tab PO Q6H PRN pain 11/03/25 11/03/25 09:00 History 325 mg tablet metoclopramide HCl 5 mg tablet 5 mg PO Q8H 11/03/25 11/03/25 History cstcfkr-agginntcaynsq-vtozdbmi 250 2 tab PO Q6H PRN migraine 11/05/25 Unknown History mg-250 mg-65 mg tablet (Excedrin Extra Strength) Allergy/AdvReac Type Severity Reaction Status Date / Time No Known Allergies Allergy Verified 11/03/25 15:16 Family History Grandfather Cancer lung cancer Surgical History History of right knee joint replacement Social History Smoking Status: Current every day smoker tobacco type: cigarettes Tobacco: How many years used: 30 alcohol intake: never substance use type: other details: magic mushrooms for pain ROS Constitutional Constitutional: Reports fatigue and weight loss Eyes Eyes: Reports systems reviewed and no addt'l complaints, except as documented ENT HEENT: Reports systems reviewed and no addt'l complaints, except as documented Cardiovascular Cardiovascular: Reports systems reviewed and no addt'l complaints, except as documented Respiratory/Chest Respiratory/Chest: Reports systems reviewed and no addt'l complaints, except as documented Gastrointestinal Gastrointestinal: Reports systems reviewed and no addt'l complaints, except as documented Genitourinary Genitourinary: Reports systems reviewed and no addt'l complaints, except as documented Musculoskeletal Musculoskeletal: Reports systems reviewed and no addt'l complaints, except as documented Integumentary Integumentary: Reports systems reviewed and no addt'l complaints, except as documented Neurologic Neurologic: Reports systems reviewed and no addt'l complaints, except as documented Psychiatric Psychiatric: Reports systems reviewed and no addt'l complaints, except as documented Endocrine Endocrinology: Reports systems reviewed and no addt'l complaints, except as documented Hematologic/Lymphatic Hematologic/Lymphatic: Reports systems reviewed and no addt'l complaints, except as documented Allergic/Immunologic Allergic/Immunologic: Reports systems reviewed and no addt'l complaints, except as documented Physical Exam Const alert, oriented x3 and no apparent distress HEENT normocephalic and head/scalp atraumatic Eyes PERRL Neck full ROM Resp normal respiratory effort and clear to auscultation bilaterally Cardio regular rate and regular rhythm GI normal to inspection, nondistended, normoactive bowel sounds Inspection: central obesity no CVA tenderness Back/Spine no CVA tenderness Extremity normal to inspection Extremity Narrative: Left upper extremity axilla- unable to palpate any prominent lymph nodes due to body habitus. Skin no rashes or lesions noted Neuro no focal motor deficits and no sensory deficits noted Psych mental status grossly normal, thought process normal, cooperative and affect normal Lab / Micro Data 11/05/25 05:34 11/05/25 05:34 Labs: Laboratory Results - last 24 hr 11/04/25 04:47: Phosphorus 3.6, Magnesium 1.6 11/05/25 05:34: WBC 5.3, RBC 4.19 L, Hgb 12.2 L, Hct 32.5 L, MCV 77.6 L, MCH 29.1, MCHC 37.5 H D, RDW Std Deviation 38.7, RDW Coeff of [place] 13.7, Plt Count 195, MPV 9.9, Immature Gran % (Auto) 0.200, Neut % (Auto) 63.6, Lymph % (Auto) 23.2, [place] % (Auto) 11.3 H, Eos % (Auto) 1.1, Baso % (Auto) 0.6, Absolute Neuts (auto) 3.4, Absolute Lymphs (auto) 1.23, Nucleated RBC % 0, Sodium 123 L, Potassium 2.9 L, Chloride 84 L, Carbon Dioxide 24.6, Anion Gap 15, BUN 5, Creatinine 0.62 L, Estim Creat Clear Calc 174.98, Est GFR (MDRD) Non-Af 112, BUN/Creatinine Ratio 8.1 L, Glucose 98, Calcium 8.8 Charges/Coding Visit Charges Inpatient E&M: 96986 Init Hosp L2
--- NOTE | 2025-11-05 16:13 | PN.HOSP_ITS ---
Subjective Subjective States that his pain is worse when he is laying on his back and better when leaning forward, based on the pericardial effusion on echo this is likely pericarditis related Objective Data Objective Data Vital Signs: Vital Signs Temp Pulse Resp BP Pulse Ox O2 Del Method 97.5 F L 78 20 H 173/87 H 95 Room Air 11/05/25 15:00 11/05/25 15:00 11/05/25 15:00 11/05/25 15:00 11/05/25 15:00 11/05/25 15:00 Oxygen Delivery Method Room Air Weight: 271 lb 1.6 oz Body Mass Index (BMI) 38.9 Intake & Output: Intake and Output for Last 24 Hours 11/04/25 11/05/25 11/06/25 03:59 03:59 03:59 Intake Total 400 / 400 1600 / 1600 1034 / 1034 Balance 400 / 400 1600 / 1600 1034 / 1034 Lab / Micro Data 11/05/25 05:34 11/05/25 05:34 Labs: Laboratory Results - last 24 hr 11/04/25 04:47: Phosphorus 3.6, Magnesium 1.6 11/05/25 05:34: WBC 5.3, RBC 4.19 L, Hgb 12.2 L, Hct 32.5 L, MCV 77.6 L, MCH 29.1, MCHC 37.5 H D, RDW Std Deviation 38.7, RDW Coeff of Sen[place] 13.7, Plt Count 195, MPV 9.9, Immature Gran % (Auto) 0.200, Neut % (Auto) 63.6, Lymph % (Auto) 23.2, [place] % (Auto) 11.3 H, Eos % (Auto) 1.1, Baso % (Auto) 0.6, Absolute Neuts (auto) 3.4, Absolute Lymphs (auto) 1.23, Nucleated RBC % 0, Sodium 123 L, P otassium 2.9 L, Chloride 84 L, Carbon Dioxide 24.6, Anion Gap 15, BUN 5, C reatinine 0.62 L, Estim Creat Clear Calc 174.98, Est GFR (MDRD) Non-Af 112, B UN/Creatinine Ratio 8.1 L, Glucose 98, Calcium 8.8 Physical Exam Narrative General: Alert, Oriented x3, Cooperative, No apparent distress HEENT: Atraumatic, PERRLA, EOMI, Normocephalic Oral: Moist Mucosa Neck: Supple, No JVD Lungs: Diminished, Normal air movement, No rhonchi, No wheeze, No rales Cardiovascular: Regular rate, Regular Rhythm, Normal S1, Normal S2, No murmurs Abdomen: Soft, Non Tender, Non-Distended, No Hepato-splenomegaly Extremities: No edema, Capillary Refill Less than 3 Seconds Skin: No rashes, No breakdown Musculoskeletal: No Tenderness to Palpation of Joints or Extremities Neurological: No focal neurological deficits, moves all extremities, tremor Psych/Mental Status: Flat Assessment & Plan Assessment/Plan (1) Chest pain: PLAN: Plan 1. Chest pain secondary to pericarditis ? EKG is nonischemic and troponins are negative ? Echo with normal EF and a pericardial effusion that is moderate in size ? He did have an EGD with significant gastritis and was treated for candidiasis with fluconazole and he was not on a PPI ? Continue with PPIs also some concern for for withdrawal as he does admit to kratom use, does not want to do detox however will provide symptomatic management ? Will continue with indomethacin and colchicine and can have him follow-up as an outpatient with cardiology for repeat echo 2. Lymphoma ? New diagnosis being managed by [facility] ?Will consult general surgery for biopsy while he is here of his left axillary lymph nodes ? His pericardial effusion is likely malignant and hopefully with the biopsy during his inpatient stay can initiate outpatient treatment 2. Hypokalemia and hyponatremia ? Continue to fluid restriction for hyponatremia ? Will replace potassium as indicated 3. Essential HTN ? Stable ? Continue with losartan DVT: SCDs Charges/Coding Visit Charges Inpatient E&M: 33153 Subs Hosp L2
[2025-11-06 01:21] VITALS: BP 131/93; PULSE 71; RESP 18; TEMP 36.3; O2SAT 96
[2025-11-06 01:22] VITALS: O2SAT 99
[2025-11-06] MEDS: 0.9% Saline Lock 10 ML Syringe IV ×7 (01:26→22:48)
[2025-11-06 04:36] LABS: Hematocrit 30.9 % (40-54); Hemoglobin 11.5 g/dL (13.0-16.5); Immature Granulocytes Count 0.010 X10^3/uL (0.0-0.0); Mean Corp Hgb Conc 37.2 g/dL (32-36); Mean Corpuscular Volume 77.6 fL (80-94); Mean Platelet Vol. 10.1 fl (6.2-12.0); NRBC Flagged by Analyzer 0 % (0-5); Platelet Count 187 K/mm3 (150-450); RBC Distribution Width CV 13.6 % (11.6-14.6); RBC Distribution Width SD 38.8 fl (35.1-43.9); Red Blood Count 3.98 M/mm3 (4.6-6.2); White Blood Count 4.8 K/mm3 (4.4-11.0)
[2025-11-06 05:00] LABS: Anion Gap 12 (5-15); BUN 5 mg/dL (4-19); BUN/Creat Ratio 7.6 RATIO (10-20); Calcium,Total 8.7 mg/dL (7.6-11.0); Carbon Dioxide 24.6 mmol/L (21.0-32.0); Chloride 86 mmol/L (98-108); Estimated Creatinine Clearance 161.92 ml/min (50-250); Glucose 105 mg/dL (70-99); Potassium 3.1 mmol/L (3.3-5.1)
[2025-11-06] MEDS: AMOXICILLIN 500 MG CAPSULE PO (06:00)
[2025-11-06 06:12] VITALS: BP 164/98; PULSE 63; RESP 16; TEMP 36.6; O2SAT 100
[2025-11-06 08:54] LABS: Barbiturate Urine NEGATIVE (< 200 ng/mL); Benzodiazepine Urine NEGATIVE (< 200 ng/mL); PCP Urine NEGATIVE (< 25 ng/mL); THC Urine NEGATIVE (< 50 ng/mL)
[2025-11-06 10:13] VITALS: BP 146/82; PULSE 70; RESP 16; TEMP 36.6; O2SAT 100
[2025-11-06] MEDS: Potassium Chloride Oral Tablet 20 MEQ PO (10:17)
--- NOTE | 2025-11-06 10:25 | PCM.PN.HOSP ---
Subjective Subjective No issues overnight, refuses to eat because of pain which is why his sodium is low continue with the sodium chloride tablets Objective Data Objective Data Vital Signs: Vital Signs Temp Pulse Resp BP Pulse Ox O2 Del Method O2 Flow Rate 97.8 F 70 16 146/82 H 100 Room Air 2 11/06/25 10:13 11/06/25 10:13 11/06/25 10:13 11/06/25 10:13 11/06/25 10:13 11/06/25 10:13 11/06/25 06:12 Oxygen Flow Rate (L/min) 2 Oxygen Delivery Method Room Air Weight: 271 lb 1.6 oz Body Mass Index (BMI) 38.9 Intake & Output: Intake and Output for Last 24 Hours 11/05/25 11/06/25 11/07/25 03:59 03:59 03:59 Intake Total 1600 / 1600 1574 / 1574 300 / 300 Balance 1600 / 1600 1574 / 1574 300 / 300 Lab / Micro Data 11/06/25 04:09 11/06/25 04:09 Labs: Laboratory Results - last 24 hr 11/06/25 04:09: WBC 4.8, RBC 3.98 L, Hgb 11.5 L, Hct 30.9 L, MCV 77.6 L, MCH 28.9, MCHC 37.2 H, RDW Std Deviation 38.8, RDW Coeff of [place] 13.6, Plt Count 187, MPV 10.1, Immature Gran % (Auto) 0.200, Neut % (Auto) 54.7, Lymph % (Auto) 29.9, [place] % (Auto) 13.3 H, Eos % (Auto) 1.5, Baso % (Auto) 0.4, Absolute Neuts (auto) 2.6, Absolute Lymphs (auto) 1.44, Nucleated RBC % 0, Sodium 122 L, Potassium 3.1 L, Chloride 86 L, Carbon Dioxide 24.6, Anion Gap 12, BUN 5, Creatinine 0.67 L, Estim Creat Clear Calc 161.92, Est GFR (MDRD) Non-Af 110, BUN/Creatinine Ratio 7.6 L, Glucose 105 H, Calcium 8.7 11/06/25 07:40: Urine Opiates Screen PRESUMPTIVE POSITIVE, U Buprenorphine Qual NEGATIVE, Ur Oxycodone Screen PRESUMPTIVE POSITIVE, Urine Methadone Screen NEGATIVE, Urine Fentanyl Screen NEGATIVE, Ur Barbiturates Screen NEGATIVE, Ur Phencyclidine Scrn NEGATIVE, Ur Amphetamines Screen NEGATIVE, U Benzodiazepines Scrn NEGATIVE, Urine Cocaine Screen NEGATIVE, U Cannabinoids Screen NEGATIVE Physical Exam Narrative General: Alert, Oriented x3, Cooperative, No apparent distress HEENT: Atraumatic, PERRLA, EOMI, Normocephalic Oral: Moist Mucosa Neck: Supple, No JVD Lungs: Diminished, Normal air movement, No rhonchi, No wheeze, No rales Cardiovascular: Regular rate, Regular Rhythm, Normal S1, Normal S2, No murmurs Abdomen: Soft, Non Tender, Non-Distended, No Hepato-splenomegaly Extremities: No edema, Capillary Refill Less than 3 Seconds Skin: No rashes, No breakdown Musculoskeletal: No Tenderness to Palpation of Joints or Extremities Neurological: No focal neurological deficits, moves all extremities, tremor Psych/Mental Status: Flat Assessment & Plan Assessment/Plan (1) Chest pain: PLAN: Plan 1. Chest pain secondary to pericarditis ? EKG is nonischemic and troponins are negative ? Echo with normal EF and a pericardial effusion that is moderate in size ? He did have an EGD with significant gastritis and was treated for candidiasis with fluconazole and he was not on a PPI ? Continue with PPIs also some concern for for withdrawal as he does admit to kratom use, does not want to do detox however will provide symptomatic management ? Will continue with indomethacin and colchicine and can have him follow-up as an outpatient with cardiology for repeat echo ? He will not be discharged with any narcotics 2. Lymphoma ? New diagnosis being managed by [facility] ?Will consult general surgery for biopsy while he is here of his left axillary lymph nodes ? His pericardial effusion is likely malignant and hopefully with the biopsy during his inpatient stay can initiate outpatient treatment 2. Hypokalemia and hyponatremia ? Continue to fluid restriction for hyponatremia ? Will replace potassium as indicated ? Hyponatremia is due to his lack of p.o. intake will start him on salt tablets 3. Essential HTN ? Stable ? Continue with losartan DVT: SCDs Charges/Coding Visit Charges Inpatient E&M: 42918 Subs Hosp L2
[2025-11-06] MEDS: HYDROmorphone 0.5 MG/0.5 ML SYRINGE IV (10:55)
[2025-11-06] MEDS: Pantoprazole Sodium 40 MG in 0.9% Normal Saline (100mL MB+) 100 ML 330 MG IV ×2 (13:25→22:59)
--- NOTE | 2025-11-06 13:47 | PCM.OPRPT ---
Multi Select Codes Respiratory/Cardiovascular Resp/Cardiovascular CPT Codes: Other Procedure See Report (76878) Operative Report (Standard) Operative Information Date of Procedure: 11/06/25 Pre-Operative Diagnosis: Left axillary adenopathy, rule out lymphoma Post-Operative Diagnosis: Same Surgery/Procedure Performed: Ultrasound-guided left axillary lymph node biopsy excellence manager: No Type of Anesthesia: Local Procedure Start Time: 13:05 Procedure Stop Time: 13:20 Select all DRAINS/GRAFTS/IMPLANTS that apply: None Estimated Blood Loss: < 5 cc Specimen collected: Yes Description of specimen(s) removed: Left axillary lymph node and saline Description of surgery: Reviewed the ultrasound with patient and discussed the need for biopsy. Reviewed the procedure of biopsy with a core biopsy device. Patient has been counseled to the risks/benefits of the procedure. I have explained the risks of the surgery, including but not limited to: infection, bleeding, injury to any blood vessels/nerves, scar tissue, missing the lesion, further surgery, etc. - the patient understands and agrees to proceed. I have answered all of the patient's questions to his satisfaction and he has no further questions. Signed consent is completed. Procedure: Left axillary lymph node ultrasound-guided core biopsy Description of procedure: Patient supine in hospital bed with the left axilla marked.. A timeout was completed verifying correct patient, procedure, site, specially, prior to beginning procedure. The left axilla was prepped and draped in usual sterile fashion and using local anesthesia was obtained with 1% lidocaine with epi. The lesion was located with the ultrasound. Small incision was made with 11 blade to introduced the BARD MaxCore through the skin. Under ultrasound guidance multiple core samples were obtained using then 14-gauge Bard max core and sent in formalin for pathology. Upon completion procedure hemostasis was obtained and a Steri-Strip and OpSite were placed. The patient tolerated the procedure well. Surgical Findings: See operative report Complications Complications: No
[2025-11-06 13:57] LABS: Pathology Sent to OSU SEE PATHOLOGY REPORT
[2025-11-06 14:22] VITALS: BP 162/91; PULSE 73; RESP 19; TEMP 36.2; O2SAT 100
[2025-11-06] MEDS: Potassium Chloride Oral Tablet 20 MEQ 60 MEQ PO (14:26)
--- NOTE | 2025-11-06 20:26 | PCM.HOSP.N ---
Hospitalist Note Pt having continued c/o nausea, next dose of ondansetron is not due for a few hrs. I ordered prochlorperazine 5mg IV q6h PRN and metoclopramide 2.5mg IV q8h scheduled in attempts to resolve nausea.
[2025-11-06 22:37] VITALS: BP 158/87; PULSE 69; RESP 18; TEMP 36.6; O2SAT 100
[2025-11-07] MEDS: 0.9% Saline Lock 10 ML Syringe IV ×3 (02:07→09:04)
[2025-11-07 02:10] VITALS: BP 155/103; PULSE 68; RESP 18; TEMP 36.8; O2SAT 99
[2025-11-07 05:51] LABS: Anion Gap 12 (5-15); BUN 5 mg/dL (4-19); BUN/Creat Ratio 7.2 RATIO (10-20); Calcium,Total 8.7 mg/dL (7.6-11.0); Carbon Dioxide 24.1 mmol/L (21.0-32.0); Chloride 87 mmol/L (98-108); Estimated Creatinine Clearance 169.51 ml/min (50-250); Glucose 99 mg/dL (70-99); Magnesium 1.6 mg/dL (1.5-2.2); Potassium 3.6 mmol/L (3.3-5.1)
[2025-11-07 06:48] VITALS: O2SAT 94
[2025-11-07 09:01] VITALS: BP 111/88; PULSE 86; RESP 19; TEMP 36.6; O2SAT 100
[2025-11-07] MEDS: Nicotine (PBKC) 21 MG Patch TD (09:07)
[2025-11-07] MEDS: Senna/Docusate Sodium 1 Tablet 2 TABLET PO (09:10)
[2025-11-07] MEDS: Potassium Chloride Oral Tablet 20 MEQ PO (09:28)
[2025-11-07 11:41] VITALS: O2SAT 100; O2SAT 97
--- NOTE | 2025-11-07 12:15 | PCM.DC ---
Discharge Instructions DC O2, CPAP, BIPAP needs Home O2 Discharge instructions: No Dressing / Incision Discharge Activity: Return to Normal Activity Dressing / Incision Call your doctor if you observe: Fever of 101 or Higher, Shortness of breath, Dizziness, Fainting spells, Swelling in the ankles, Chest pain and Increased palpitations (irregular heartbeat) Follow Up Care Test Results: Test results from this visit will be discussed in further detail at your follow-up appointment, if applicable. Discharge Plan Admission Admit Date/Time: 11/03/25 19:02 Attending Provider: Edouard Cespedes Primary Care Provider: Deborah Roa Consulting Providers: Criselda Funez; Betty Steel Instructions Additional Instructions / Restrictions: Follow-up with your primary care doctor in 3 to 5 days to monitor your sodium and potassium. Follow-up with cardiology for repeat echocardiogram to monitor the pericardial effusion. You will need to follow-up with oncology as previously scheduled to evaluate your lymphoma and to discuss initiation of chemotherapy based on pathology results. Discharge Orders/Prescriptions Prescriptions: New ondansetron HCl 8 mg Tablet 8 mg PO Q8H PRN PRN (Reason: Nausea) 10 Days Qty: 20 0RF indomethacin 25 mg Capsule 25 mg PO TIDCM 20 Days Qty: 60 0RF oxycodone 5 mg Tablet 5 mg PO Q8H PRN PRN (Reason: Pain Score 4-10) 3 Days Qty: 12 0RF sodium chloride 1,000 mg Tablet,Soluble 1,000 mg PO BID Qty: 0 0RF Rx Instructions: Has at home already colchicine 0.6 mg Capsule 0.6 mg PO BID 20 Days Qty: 40 0RF Continued losartan 100 mg Tablet 100 mg PO DAILY Qty: 30 0RF fluconazole 200 mg tablet 200 mg PO DAILY PRN metoclopramide HCl 5 mg tablet 5 mg PO Q8H Patient Comments: pt has had 2 doses today 11/03/25 sevxdgo-hdrwkkzlbiszy-hzjrovmy [Excedrin Extra Strength] 250-250-65 mg tablet 2 tab PO Q6H PRN (Reason: migraine) Discontinued amoxicillin 500 mg capsule 500 mg PO TID Patient Comments: only one dose this morning 11/03/25 hydrocodone-acetaminophen 10-325 mg tablet 1 tab PO Q6H PRN (Reason: pain) Referrals / Follow Up: Denisse Conner MD [Med Staff - Active Staff, Oncology] - 11/13/25 12:45 pm Referral Note: PLEASE CALL THE OFFICE BEFORE COMING IN FOR YOUR APPOINTMENT Deborah Roa, HUMAN RESOURCE PROFESSIONAL-C [Primary Care Provider, Family Practice] - Within 1 Week Disposition Disposition (needs filled in before D/C Order can be placed): Home, Self Care
--- NOTE | 2025-11-07 12:15 | CASEMGMT ---
Social Work SW met w/pt to offer support around his new cancer diagnosis. Pt does state does not have a lot of support, and spends most of his time alone. However pt states he prefers this. He states he is not afraid to , but does not want to be in pain. Support given. SW offered counseling resources to pt, pt declined, stating he went once and it was not helpful. SW gently encouraged pt to try again, however pt still not interested in resources at this time. SW did suggest to pt that once he starts following up w/oncology, palliative care may be helpful, educated pt briefly on palliative care. Pt on O2 currently. The RN did walk pt, pt is not sure if he qualified or not. SW checked w/RN, pt does not qualify. SW did give pt some information on palliative care. Pt also mentioned difficulty sleeping due to pain. SW suggested to pt he follow up w/PCP or oncologist to see if he could qualify for a hospital bed. Pt states understanding. No further needs, pt likely to go home today. ELISHA Edwards
--- NOTE | 2025-11-07 12:45 | CASEMGMT ---
Patient has order for discharge. Patient does not qualify for home oxygen. SW provided support and information to patient. RN CM in to discuss needs at discharge. Patient denies needs or help at discharge and is aware to follow up with providers. Patient had no further questions or concerns.
--- NOTE | 2025-11-07 13:32 | PCM.DC.SUM ---
Providers Date of Admission: 11/03/25 Primary Care Physician: UMAIR Taveras Consultations 11/05/25 12:16 Consult: General Surgery Routine Consulting Provider: Betty Steel Reason for Consult: Axillary lymphnode biopsy EMERGENT Consult: No MD Notified: Yes Date Notified: 11/05/25 Time Notified: 12:16 Method of Notification: Verbal Reason For Visit: CHEST PAIN Diagnosis Discharge Diagnosis (1) Chest pain: Status: Inactive Code(s): R07.9 - Chest pain, unspecified Medications at Discharge Home Medications losartan 100 mg tablet 100 mg PO DAILY #30 tabs 05/05/25 fluconazole 200 mg tablet 200 mg PO DAILY PRN 11/03/25 metoclopramide HCl 5 mg tablet 5 mg PO Q8H 11/03/25 uwpjfia-lvddlurdqorec-eloaggjo 250 mg-250 mg-65 mg tablet (Excedrin Extra Strength) 2 tab PO Q6H PRN migraine 11/05/25 colchicine 0.6 mg capsule 0.6 mg PO BID 20 days #40 caps 11/07/25 indomethacin 25 mg capsule 25 mg PO TIDCM 20 days #60 caps 11/07/25 ondansetron HCl 8 mg tablet 8 mg PO Q8H PRN PRN Nausea 10 days #20 tabs 11/07/25 oxycodone 5 mg tablet 5 mg PO Q8H PRN PRN Pain Score 4-10 3 days #12 tabs 11/07/25 sodium chloride 1,000 mg soluble tablet 1,000 mg PO BID #0 tabs 11/07/25 Hospital Course Operations - (Left axillary lymph node biopsy) Procedures 2-D Echocardiogram Summary of Care Provided Minutes Spent on Discharge: 39 Hospital Course: Per HPI: LYNNETTE GONG, is a 55-year-old male history of hypertension, GERD, COPD, nicotine use, morbid obesity who presented [facility] ED 11/03/2025 for chest pain. 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 He was seen on 10/30 for chest pain, shortness of breath, nausea but discharged after negative workup. Reportedly came in to get a biopsy of the mass today and that is when his chest pain returned which is epigastric to midsternal in nature and pressure-like. No radiation of the pain. Does have nausea with no vomiting. Shortness of breath with activity. In the ED temp 97.6, heart rate 73, respiratory 24, blood pressure 163/109, pulse ox 99% on room air. CBC with a white blood cell count of 6.1, hemoglobin 13.9, BMP with sodium of 125, potassium of 2.8, BUN of 4 creatinine 0.66, troponin 14. CXR reported out as probable edema. proBNP less than 36. Given patient's symptoms of unclear etiology hospitalist contacted for admission. Patient evaluated bedside. He reports lower chest/upper epigastric pain that has been present recently and increasingly distressing. Feels a little bit better at time of evaluation but he is not sure which thing was helpful that he received. He does note that when he lays down at night especially if it is flat on his back he will wake up because the pain is much worse. Notes he completed his fluconazole after his endoscopy previously but does not believe he has been on pantoprazole or anything for reflux. Denies any nausea at this time but reports since being in the ER he has felt sick to his stomach but clarified that he just has a queasy generally unwell feeling in his stomach. Hospital Course: 1. Chest pain secondary to pericarditis in the setting of lymphoma?55-year-old male presented to the hospital with chest pain. It is nonischemic chest pain as he has pericarditis. He had worsening pain with laying down and it relieved by sitting forward. He did have an echocardiogram which demonstrated a pericardial effusion 1.3 cm and a normal EF. I did discuss the case with cardiology who recommended outpatient repeat echocardiogram in 1 to 2 weeks which they were going to order. In the meantime he was started on indomethacin and colchicine. We have had a challenge in controlling his pain because of his kratom use. He has had multiple narcotic prescriptions filled and I discussed with him that we can only fill for 3 days on discharge. I did discuss his care with his PCP for closed-loop communication. In the meantime we will continue with indomethacin and colchicine on the outpatient side and he did have axillary lymph node biopsy on the left by general surgery so pathology is pending, he does have an appointment with oncology on 11/13/2025. He was also having some nausea so he was given nausea medications on discharge as well. I discussed with him the plan for discharge and he expressed understanding of the risks and benefits and would like to go home today. 2. Hypokalemia and hyponatremia?this previously worked up as SIADH possibly from his lymphoma and he is supposed be taking salt tabs at home but I do not think he has been taking these. He was placed on a fluid restriction on admission without any significant improvement so he was started on salt tablets here and his sodium did improve to 124 and I discussed with him that he needs to be taking his salt tablets at home which he expressed that he would be doing as he had about 300 that he had bought off of [employer]. 3. Essential hypertension?continue with losartan on discharge Physical Exam Narrative General: Alert, Oriented x3, Cooperative, No apparent distress HEENT: Atraumatic, PERRLA, EOMI, Normocephalic Oral: Moist Mucosa Neck: Supple, No JVD Lungs: Diminished, Normal air movement, No rhonchi, No wheeze, No rales Cardiovascular: Regular rate, Regular Rhythm, Normal S1, Normal S2, No murmurs Abdomen: Soft, Non Tender, Non-Distended, No Hepato-splenomegaly Extremities: No edema, Capillary Refill Less than 3 Seconds Skin: No rashes, No breakdown Musculoskeletal: No Tenderness to Palpation of Joints or Extremities Neurological: No focal neurological deficits, moves all extremities, tremor Psych/Mental Status: Flat Weight / BMI Weight Weight: 271 lb 1.6 oz Body Mass Index (BMI) 38.9 ABG / Lab / Microbiology Data 11/06/25 04:09 11/07/25 04:35 Laboratory: Laboratory Results - last 24 hr 11/07/25 04:35: Sodium 124 L, Potassium 3.6, Chloride 87 L, Carbon Dioxide 24.1, Anion Gap 12, BUN 5, Creatinine 0.64 L, Estim Creat Clear Calc 169.51, Est GFR (MDRD) Non-Af 111, BUN/Creatinine Ratio 7.2 L, Glucose 99, Calcium 8.7, Phosphorus 3.5, Magnesium 1.6 D/C Instructions Call your doctor if you observe: Fever of 101 or Higher, Shortness of breath, Dizziness, Fainting spells, Swelling in the ankles, Chest pain and Increased palpitations (irregular heartbeat) DC O2, CPAP, BIPAP Needs Home O2 Discharge instructions: No Meaningful Use Info Meaningful Use Meaningful Use Diagnoses (Choose all that apply): None applicable Discharge Plan Admission Admit Date/Time: 11/03/25 19:02 Attending Provider: Edouard Cespedes Primary Care Provider: Deborah Roa Consulting Providers: Criselda Funez; Betty Steel Instructions Additional Instructions / Restrictions: Follow-up with your primary care doctor in 3 to 5 days to monitor your sodium and potassium. Follow-up with cardiology for repeat echocardiogram to monitor the pericardial effusion. You will need to follow-up with oncology as previously scheduled to evaluate your lymphoma and to discuss initiation of chemotherapy based on pathology results. Discharge Orders/Prescriptions Prescriptions: New ondansetron HCl 8 mg Tablet 8 mg PO Q8H PRN PRN (Reason: Nausea) 10 Days Qty: 20 0RF indomethacin 25 mg Capsule 25 mg PO TIDCM 20 Days Qty: 60 0RF oxycodone 5 mg Tablet 5 mg PO Q8H PRN PRN (Reason: Pain Score 4-10) 3 Days Qty: 12 0RF sodium chloride 1,000 mg Tablet,Soluble 1,000 mg PO BID Qty: 0 0RF Rx Instructions: Has at home already colchicine 0.6 mg Capsule 0.6 mg PO BID 20 Days Qty: 40 0RF Continued losartan 100 mg Tablet 100 mg PO DAILY Qty: 30 0RF fluconazole 200 mg tablet 200 mg PO DAILY PRN metoclopramide HCl 5 mg tablet 5 mg PO Q8H Patient Comments: pt has had 2 doses today 11/03/25 nrgkqjr-jvlmjniktkfam-iospotfq [Excedrin Extra Strength] 250-250-65 mg tablet 2 tab PO Q6H PRN (Reason: migraine) Discontinued amoxicillin 500 mg capsule 500 mg PO TID Patient Comments: only one dose this morning 11/03/25 hydrocodone-acetaminophen 10-325 mg tablet 1 tab PO Q6H PRN (Reason: pain) Referrals / Follow Up: Noé Ken DO [Med Staff - Active Staff, Cardiology] Referral Note: for repeat echo in one week , THEY WILL CALL BACK WITH APPT INFORMATION Denisse Conner MD [Med Staff - Active Staff, Oncology] - 11/13/25 12:45 pm Referral Note: PLEASE CALL THE OFFICE BEFORE COMING IN FOR YOUR APPOINTMENT Deborah Roa, [employer] APPRENTICE-C [Primary Care Provider, Family Practice] - Within 1 Week Referral Note: LEFT MESSAGE FOR OFFICE TO CONTACT PATIENT FOR APPOINTMENT THEY WERE CLOSED. Disposition Disposition (needs filled in before D/C Order can be placed): Home, Self Care Charges/Coding Visit Charges Inpatient E&M: 67692 Disch Hosp >30min
--- NOTE | 2025-11-07 14:18 | PHA.DC.MR.R ---
Pharmacy PR Med Reconciliation Pharmacy Service has performed discharge medication reconciliation for this patient. The patient's discharge medication list was reviewed for discrepancies and discrepancies were resolved. Medications at Discharge Home Medications losartan 100 mg tablet 100 mg PO DAILY #30 tabs 05/05/25 fluconazole 200 mg tablet 200 mg PO DAILY PRN 11/03/25 metoclopramide HCl 5 mg tablet 5 mg PO Q8H 11/03/25 furfbyw-qgjledkqcuayk-tiybxbqv 250 mg-250 mg-65 mg tablet (Excedrin Extra Strength) 2 tab PO Q6H PRN migraine 11/05/25 colchicine 0.6 mg capsule 0.6 mg PO BID 20 days #40 caps 11/07/25 indomethacin 25 mg capsule 25 mg PO TIDCM 20 days #60 caps 11/07/25 ondansetron HCl 8 mg tablet 8 mg PO Q8H PRN PRN Nausea 10 days #20 tabs 11/07/25 oxycodone 5 mg tablet 5 mg PO Q8H PRN PRN Pain Score 4-10 3 days #12 tabs 11/07/25 sodium chloride 1,000 mg soluble tablet 1,000 mg PO BID #0 tabs 11/07/25
== END 2025-11-07 13:51 | disposition home or self-care (01) | DRG 823 ==
LOC: ED 17:48 → PCU 19:42
PROVIDERS: Anesthesiology; Admitting Provider Internal Medicine; Emergency Provider Student in an Organized Health Care Education/Training Program; PCP Nurse Practitioner Family; Visit Provider Family Medicine
DX: C85.2 Mediastinal (thymic) large B-cell lymphoma (principal); E43 Unspecified severe protein-calorie malnutrition; I31.31 Malignant pericardial effusion in diseases classified elsewhere; E22.2 Syndrome of inappropriate secretion of antidiuretic hormone; B37.81 Candidal esophagitis; C7A.1 Malignant poorly differentiated neuroendocrine tumors; I32 Pericarditis in diseases classified elsewhere; J43.9 Emphysema, unspecified; E66.01 Morbid (severe) obesity due to excess calories; I10 Essential (primary) hypertension; E87.6 Hypokalemia; F17.210 Nicotine dependence, cigarettes, uncomplicated; K29.50 Unspecified chronic gastritis without bleeding; Z68.38 Body mass index [BMI] 38.0-38.9, adult; Z79.899 Other long term (current) drug therapy; Z86.73 Personal history of transient ischemic attack (TIA), and cerebral infarction without residual deficits
CPT/HCPCS: 36415; 71046; 80048; 80307; 83690; 83735; 83880; 84100; 84484; 85025; 93005; 93306; 94640; 97802; 99285; Q9957; A4216; C8929; J2405

== ENCOUNTER 2025-11-10 20:41 | Emergency (ER) | payer MEDICARE, MEDICAID, SELFPAY ==
[2025-11-10] VITALS (14 sets, daily range): BP systolic 153–177; BP diastolic 74–119; PULSE 60–74; RESP 11–40; TEMP 36.7; O2SAT 96–100; BMI 37.9
--- NOTE | 2025-11-10 20:49 | ED.RN ---
REFUSES TREATMENT UNTIL HE SPEAKS TO Nikki.
--- NOTE | 2025-11-10 20:53 | ED.VIS.CHEST ---
HPI History of Present Illness Chief Complaint: Chest Pain [facility] Medical History Lymphadenopathy, generalized Emphysema, unspecified Wears glasses Loose, teeth Ambulates with cane High cholesterol Heartburn Gastric reflux Chronic cough Chest pain History of CVA (cerebrovascular accident) Back pain Arthritis Essential (primary) hypertension Osteoarthritis of knees, bilateral Tobacco use disorder, continuous Encounter for screening for malignant neoplasm of lung Constipation Chronic pain Smoker Migraines TIA (transient ischemic attack) HTN (hypertension) Morbid obesity Home Medications ?Medication ?Instructions ?Recorded ?Last Taken ?Type losartan 100 mg tablet 100 mg PO DAILY #30 tabs 05/05/25 11/02/25 Rx fluconazole 200 mg tablet 200 mg PO DAILY PRN 11/03/25 Unknown History metoclopramide HCl 5 mg tablet 5 mg PO Q8H 11/03/25 11/03/25 History colchicine 0.6 mg capsule 0.6 mg PO BID 20 days #40 caps 11/07/25 Unknown Rx indomethacin 25 mg capsule 25 mg PO TIDCM 20 days #60 caps 11/07/25 Unknown Rx ondansetron HCl 8 mg tablet 8 mg PO Q8H PRN PRN Nausea 10 days 11/07/25 Unknown Rx #20 tabs sodium chloride 1,000 mg soluble 1,000 mg PO BID #0 tabs 11/07/25 Unknown Rx tablet pantoprazole 40 mg tablet,delayed 40 mg PO DAILY 11/10/25 Unknown History release hydromorphone 2 mg tablet 2 mg PO Q6H PRN pain 7 days #28 11/11/25 Unknown Rx (Dilaudid) tabs Allergy/AdvReac Type Severity Reaction Status Date / Time No Known Allergies Allergy Verified 11/10/25 20:45 Family History Grandfather Cancer lung cancer Surgical History History of right knee joint replacement Social History Smoking Status: Current every day smoker tobacco type: cigarettes Tobacco: How many years used: 30 alcohol intake: never substance use type: other details: magic mushrooms for pain EXAM Physical Exam Const Vital Signs: 11/10/25 20:42 11/10/25 21:36 11/10/25 21:37 Temperature 98.0 F Temperature Source Temporal Pulse Rate 70 74 Respiratory Rate 20 H 28 H Respiratory Effort Short of Breath Labored Blood Pressure 166/93 H Blood Pressure Mean 117 Pulse Ox 99 99 Oxygen Delivery Method Room Air 11/10/25 21:45 11/10/25 22:00 11/10/25 22:15 Temperature Temperature Source Pulse Rate 65 63 62 Respiratory Rate 16 32 H 21 H Respiratory Effort Blood Pressure 153/74 H Blood Pressure Mean 94 Pulse Ox 100 100 96 Oxygen Delivery Method Room Air 11/10/25 22:23 11/10/25 22:27 11/10/25 22:30 Temperature Temperature Source Pulse Rate 65 65 63 Respiratory Rate 40 H 24 H 18 Respiratory Effort Blood Pressure 157/119 H 157/119 H Blood Pressure Mean 133 131 Pulse Ox 100 98 98 Oxygen Delivery Method Room Air 11/10/25 22:45 11/10/25 22:47 11/10/25 23:00 Temperature Temperature Source Pulse Rate 64 60 61 Respiratory Rate 29 H 30 H 22 H Respiratory Effort Blood Pressure 174/94 H 177/93 H Blood Pressure Mean 117 117 Pulse Ox 99 97 97 Oxygen Delivery Method 11/10/25 23:15 11/10/25 23:30 11/10/25 23:45 Temperature Temperature Source Pulse Rate 60 68 63 Respiratory Rate 13 11 L 14 Respiratory Effort Blood Pressure 172/94 H 163/82 H 171/93 H Blood Pressure Mean 117 107 111 Pulse Ox 97 97 97 Oxygen Delivery Method Room Air 11/11/25 00:00 Temperature Temperature Source Pulse Rate 61 Respiratory Rate 19 H Respiratory Effort Blood Pressure 167/86 H Blood Pressure Mean 109 Pulse Ox 98 Oxygen Delivery Method Room Air MDM MDM MDM Narrative Medical decision making narrative: HISTORY OF PRESENT ILLNESS: Chief complaint: Chest pain 55 M presents with concern for chest pain. History of pericarditis, hypertension, tobacco use, COPD, morbid obesity, lymphoma complicated with mediastinal masses presents with chest pain. States I do not know why they released me. States his pain has been severe since his prior hospitalization. Denies new leg swelling. Denies cough fever or chills. Denies syncope. Denies history of DVT or PE. Denies ripping or tearing pain. Patient denies sudden onset of pain, no tearing sensation, no migratory symptoms, no new numbness, weakness or loss of sensation. Patient denies family history or personal history of Connective tissue disorders (Marfan's Syndrome, Dereck Danlos etc) REVIEW OF SYSTEMS: Pertinent positives: Chest pain Pertinent negatives: As per HPI PHYSICAL EXAM: Nursing triage notes reviewed, Vital signs reviewed Constitutional: please see [facility] HENT: MMM Eyes: Pupils equal round and reactive to light, Extraocular muscles intact Neck: No stridor, no JVD, full neck ROM Lungs: Clear to auscultation, No wheezing or rales. No increased work of breathing, no conversational dyspnea, no accessory muscle use, no nasal flaring. No respiratory distress noted Heart: Regular rate and rhythm, No murmurs, No rubs and No gallops, 2+ distal pulses (radial, femoral, posterior tibial) in all extremities Abdomen: Soft, there is no tenderness, rigidity, rebound or guarding, no obvious peritoneal signs, no palpable pulsatile abdominal masses, no auscultated abdominal bruit : No CVAT Extremities: No edema Neuro: No new focal neurological deficits, cranial nerves II through XII intact, 5/5 strength in all present extremities. Intact sensation to light touch in all present extremities, 2+ reflexes bilateral patella tendons. Skin: No rash or lesions noted MEDICAL DECISION MAKING: Chief Complaint: please see HPI External records reviewed: Reviewed prior cardiovascular testing. He did have an echocardiogram which demonstrated a pericardial effusion 1.3 cm and a normal EF No recent cardiac catheterizations or stress test noted. Reviewed recent hospitalization. Patient was recently admitted for X-ray lymph node biopsy Factors affecting care: As per [facility] Social determinants of health: Tobacco abuse History obtained from others: none Consults: none [facility] Narrative: The patient was initially hemodynamically stable, afebrile and nontoxic-appearing. Exam without focal cardiopulmonary abnormalities. No murmurs gobs or rubs noted. I considered the following differential diagnosis: PE, ACS, arrhythmia, anemia, significant electrolyte disturbances, pneumonia, pericarditis I obtained broad lab and imaging workup to further determine if the patient was suffering from a life-threatening etiology. Initially resuscitated patient with 500 cc normal saline bolus, 4 mg IV morphine as well as 4 mg of IV Zofran. ALL IMAGES (IF OBTAINED) HAVE BEEN PERSONALLY REVIEWED AND INTERPRETED BY MYSELF. EKG with sinus bradycardia rate of 43, normal axis otherwise normal intervals, no prolonged MD interval, no dropped beats or signs of high degree block, noted right bundle branch block was present on prior EKG, no signs of STEMI or other ischemic changes. Essentially normal voltage. High-sensitivity troponin is negative, no evidence of myocardial ischemia BMP with baseline hyponatremia, mild hypokalemia, no acute kidney injury CBC with no leukocytosis, no anemia or thrombocytopenia CTA of the chest shows similar findings to prior. No new findings. Upon re-evaluation the patient was resting comfortably, sleeping. Pain under reasonable control with IV Dilaudid. There is no indication for hospitalization at this time as patient's symptoms are likely related to ongoing chronic health issues that require prompt prompt outpatient follow-up. Do not see benefit of inpatient admission at this time. I did offer and write the patient a prescription for oral Dilaudid as it seemed to help with better than other narcotics. Discussed following with cardiology and oncology as already arranged and also gave pain management follow-up. The patient and/or family, caregivers express understanding. The patient and/or family, caregivers agrees with the plan. Shared decision making: I will have a discussion with the patient and or visitors regarding risk/benefits of further testing or admission. They will be made aware of of the risk/benefits inherent in this decision they will be given the opportunity to voice understanding. Total critical care time today provided was at least 0 minutes. This excludes separately billable procedures. Critical care time (if documented) is secondary to the patient having high probability of clinically significant/life threatening deterioration in the patient's condition which required my urgent intervention. Impression: 1. Chest pain 2. History of lymphoma 3. Mediastinal lymphadenopathy 4. Pericarditis Dispo: Discharge This note was generated with 140[employer] dictation software. It may contain incorrect words, spelling, and punctuation that were not noted in review of the chart prior to signing. Lab Data Labs: Laboratory Results - last 24 hr 11/10/25 11/10/25 21:19 23:31 WBC 6.5 RBC 4.71 Hgb 13.4 Hct 36.8 L MCV 78.1 L MCH 28.5 MCHC 36.4 H RDW Std Deviation 38.5 RDW Coeff of [place] 13.6 Plt Count 252 MPV 10.1 Immature Gran % (Auto) 0.600 Neut % (Auto) 67.4 Lymph % (Auto) 18.5 L [place] % (Auto) 12.7 H Eos % (Auto) 0.3 Baso % (Auto) 0.5 Absolute Neuts (auto) 4.4 Absolute Lymphs (auto) 1.21 Nucleated RBC % 0 Sodium 123 L Potassium 3.2 L Chloride 84 L Carbon Dioxide 23.5 Anion Gap 16 H BUN 8 Creatinine 0.80 Estim Creat Clear Calc 133.79 Est GFR (MDRD) Non-Af 104 BUN/Creatinine Ratio 9.4 L Glucose 115 H Calcium 9.8 Troponin T High Sens 14 Troponin T Hi Sens 2 Hr 11 Radiography Diagnostic Testing: Clinical Impression(s) from Imaging Studies Chest CTA 11/10/25 21:01 IMPRESSION: 1. No evidence of pulmonary embolism. 2. No significant interval change in the extensive confluent mediastinal and left hilar lymphadenopathy causing encasement and marked narrowing of the left main pulmonary artery. 3. Redemonstrated 1.7 cm left adrenal mass concerning for metastases. Reading Location: [facility] Discharge Plan Triage Chief Complaint: Chest Pain ED Provider: Raymond Washington Dx/Rx/DC Orders Instructions: Understanding Pericardial Effusion, ED Pericarditis Prescriptions: New hydromorphone [Dilaudid] 2 mg tablet 2 mg PO Q6H PRN (Reason: pain) 7 Days Qty: 28 0RF No Action losartan 100 mg Tablet 100 mg PO DAILY Qty: 30 0RF fluconazole 200 mg tablet 200 mg PO DAILY PRN metoclopramide HCl 5 mg tablet 5 mg PO Q8H Patient Comments: pt has had 2 doses today 11/03/25 ondansetron HCl 8 mg Tablet 8 mg PO Q8H PRN PRN (Reason: Nausea) 10 Days Qty: 20 0RF indomethacin 25 mg Capsule 25 mg PO TIDCM 20 Days Qty: 60 0RF sodium chloride 1,000 mg Tablet,Soluble 1,000 mg PO BID Qty: 0 0RF Rx Instructions: Has at home already colchicine 0.6 mg Capsule 0.6 mg PO BID 20 Days Qty: 40 0RF pantoprazole 40 mg tablet,delayed release (DR/EC) 40 mg PO DAILY Primary Care Provider: Deborah Roa Referrals: Kirk Ren MD [Med Staff - Active Staff, Pain Management] Shahriar Hooks MD [Med Staff - Active Staff, Cardiology] Denisse Conner MD [Med Staff - Active Staff, Oncology] Activity Restrictions/Additional Instructions: Thank you for trusting us with your care today! Your labs images are consistent with your known diagnoses including mediastinal lymphadenopathy, pericarditis and pericardial effusion. Is likely causing your pain. Please take Tylenol (2 pills, 650 mg), ibuprofen (2 pills, 400 mg) every 6 hours as needed for pain and fever control. Please return to the emergency department if your symptoms change or worsen. Please follow with your primary care physician for further outpatient evaluation and management. Print Language: Eritrean Disposition Disposition: Home, Self Care
--- NOTE | 2025-11-10 21:00 | EKG12_ITS ---
Test Reason : CP Blood Pressure : */* mmHG Vent. Rate : 43 BPM Atrial Rate : 43 BPM P-R Int : 170 ms QRS Dur : 142 ms QT Int : 528 ms P-R-T Axes : 38 34 39 degrees QTcB Int : 446 ms Marked sinus bradycardia Right bundle branch block Septal infarct , age undetermined Abnormal ECG Confirmed by Patrick Tian ([id number]), content editor TITO FRIAS ([id number]) on 11/12/2025 10:19:21 AM Referred By: TB Confirmed By: Patrick Tian
--- NOTE | 2025-11-10 21:01 | CT_ITS ---
PROCEDURE: CTA CHEST W/WO CONTRAST 11/10/2025 REASON FOR EXAM: CHEST PAIN, HX OF LYMPHOMA R/O PE TECHNIQUE: Procedure Code: [id number] Modality: CT Procedure: CTA CHEST W/WO CONTRAST Multiplanar Sagittal and Coronal images were obtained. One or more dose reduction techniques were used (e.g., Automated exposure control, adjustment of the mA and/or kV according to patient size, use of iterative reconstruction technique). CONTRAST: 100 cc of Isovue 370 COMPARISON: None available. FINDINGS: Hardware: None. Lymph nodes: Redemonstrated extensive confluent mediastinal and left hilar lymphadenopathy causing encasement and marked narrowing of the left main pulmonary artery. Stable enlarged left axillary lymph node measuring 4.9 x 3.7 cm. Heart: Enlarged. Moderate pericardial effusion increased from prior. Thoracic Aorta: No thoracic aortic aneurysm or dissection. Pulmonary Vessels: No evidence of acute pulmonary emboli through the major subsegmental branches. Stable marked narrowing of the left main pulmonary artery secondary to extrinsic mass effect from regional lymphadenopathy. Most Proximal Level of Embolus (if embolus present): Lungs and Airways: Persistent left lower lobe atelectasis/partial collapse. Airways are patent. Pleura: Unchanged small left pleural effusion. No pneumothorax. Upper Abdomen: Redemonstrated 2.1 X 1.3 cm left adrenal mass concerning for metastasis. Visualized upper abdomen otherwise unremarkable. Osseous structures: No destructive osseous lesions. Degenerate changes of the visualized spine. No acute fractures. CT/CTA Chest W/WO Contrast IMPRESSION: 1. No evidence of pulmonary embolism. 2. No significant interval change in the extensive confluent mediastinal and le ft hilar lymphadenopathy causing encasement and marked narrowing of the left main pulmonary artery. 3. Redemonstrated 1.7 cm left adrenal mass concerning for metastases. Reading Location: [facility]
[2025-11-10] MEDS: 0.9% Normal Saline (500mL Bag) 500 ML 999 ML IV (21:24)
[2025-11-10 21:25] LABS: Hematocrit 36.8 % (40-54); Hemoglobin 13.4 g/dL (13.0-16.5); Immature Granulocytes Count 0.040 X10^3/uL (0.0-0.0); Mean Corp Hgb Conc 36.4 g/dL (32-36); Mean Corpuscular Volume 78.1 fL (80-94); Mean Platelet Vol. 10.1 fl (6.2-12.0); NRBC Flagged by Analyzer 0 % (0-5); Platelet Count 252 K/mm3 (150-450); RBC Distribution Width CV 13.6 % (11.6-14.6); RBC Distribution Width SD 38.5 fl (35.1-43.9); Red Blood Count 4.71 M/mm3 (4.6-6.2); White Blood Count 6.5 K/mm3 (4.4-11.0)
--- OUTSIDE RECORDS SUMMARY | 2025-11-10 21:28 | XMS RPT_ITS | CCD ---
Author Organization [facility] Informformerly [facility] Partnership [facility] Care Team Providers Care Fish Cake Maker Name Role Phone Dr. OSIRIS BARRETT Attending Un available Tony Altman Attending [facility] PCP, States None Referring Unavailable Dr. Allan Jc DO Emergency Provider Crispin BINDERY WORKER-C, Deborah Primary Care Provider Dr. Meseret Minor DO Admit Provider Dr. Meseret Minor DO Attending Provider Dr. Meseret Minor DO Other Provider Dr. Meseret Minor DO Other Provider Dr. Kevin Singh DO Attending Provider Dr. Meseret Minor DO Attending Provider Dr. Kevin Singh DO Other Provider [phone] [facility] Care Physician, No Primary Referring Provider Un available Dr. Betty Steel MD Attending Provider Crispin BINDERY WORKER-C, Deborah Attending Provider Crispin BINDERY WORKER-C, Deborah Referring Provider Jorgito BINDERY WORKER-C, Anay Attending Provider Jorgito BINDERY WORKER-C, Anay Referring Provider Dr. Juan Rush DO Emergency Provider [phone] Juan Rush DO Attending Provider Jadon BINDERY WORKER-C, Elizabet Attending Provider Jadon BINDERY WORKER-C, Elizabet Referring Provider Jorgito BINDERY WORKER-C, Anay Referring Provider Crispin BINDERY WORKER-C, Deborah Referring Provider [phone] Allan Jc DO Emergency Department Physic stephen Crispin BINDERY WORKER-C, Deborah Primary Care Physician Iván BRYANT, Dr. Carl Admitting Physician Iván BRYANT, Dr. Carl Nurse Practitioner Samantha BRYANT, Dr. Brown Attending Physician Iván BRYANT, Dr. Carl Attending Physician Samantha BRYANT, Dr. Brown Nurse Practitioner Milvia GALLOWAY, Dr. Hernández Attending Physician Crispin BINDERY WORKER-C, Deborah Attending Physician Jorgito BINDERY WORKER-C, Anay Attending Physician Dr. Juan Rush DO Attending Physician Dr. Juan Rush DO Emergency Department Physician Jadon BINDERY WORKER-C, Elizabet Attending Physician Debbie Sinha Attending Physician [...] Unavailable Crispin, Deborah Primary Care Unavailable Jorgito BINDERY WORKER, Anay Referring Unavailable Jorgito BINDERY WORKER, Anay Attending Unavailable Crispin, Deborah Attending Unavailable [...] Unavailable Crispin, Deborah Primary Care Unavailable Jorgito BINDERY WORKER, Anay Referring Unavailable Jorgito BINDERY WORKER, Anay Attending Unavailable Crispin BINDERY WORKER-C, Deborah Primary Care Physician Jorgito BINDERY WORKER-C, Anay Attending Physician Jorgito BINDERY WORKER-C, Anay Referring Provider [phone] Crispin BINDERY WORKER-C, Deborah Attending Physician [phone] Crispin BINDERY WORKER-C, Deborah Referring Provider [phone] Dr. Juan Rush DO Attending Physician [phone] Juan Rush DO Emergency Department Physician Jadon DIAZ-Elizabet Matute Attending Physician [phone] Jadon BINDERY WORKER-CElizabet Referring Provider Debbie Sinha Attending Physician [phone] Tito BRYANT Attending Physician [phone] Tito BRYANT Nurse Practitioner Debbie Sinha Referring Provider [phone] Medications Current Medications Medication Drug Class(es) Dates [...] Laxative Start: 07-16-2025 take 1 tablet by sihra once daily as needed for constipation docusate sodium 100 mg oral capsule (7 sources) Start: 07-16-2025 Start: 07-16-2025 take 1 capsule by mo [facility] once daily Docusate Sodium (Stool Softener) 100 [...] by mouth 30 minutes before mealtime nystatin 274646 unt/ml oral suspension (2 sources) Polyene Antifungal [...] September 15, 2025 12:43pm polyethylene glycol 3350 80411 mg powder for oral solution (7 sources) [...] Adrianne Bey on 09-30-2025 Surgical pathology study [facility] Absolute lymphocyte countOrd ered By: Debbie Garcia on 09-23-2025 Lymphocytes Auto (Unsp spec) [#/Vol] 1.85 10*3/uL 0.83-4.51 [facility] Absolute neutrophil countOrd ered By: Debbie Garcia on 09-23-2025 Neutrophils (Bld) [#/Vol] 5.0 10*3/uL 2.0-7.7 [facility] Anion gap in Serum or Plasma Ordered By: Debbie Garcia on 09-23-2025 Anion gap [Moles/Vol] 13 mmol/L 5- [facility] Automated lymphocyte count a s percentage of total leukocytesOrdered By: Debbie Garcia on 09-23-2025 Lymphocytes/100 WBC Auto (Unsp spec) 23.2 % - [facility] BUN/creatinine ratioOrdered By: Debbie Garcia on 09-23-2025 Urea nitrogen/Creatinine [Mass ratio] 6.9 mg/mg Low - [facility] Basophil percentageOrdered B y: Debbie Garcia on 09-23-2025 Basophils/100 WBC (Bld) 0.9 % 0-[address] [facility] Bilirubin, totalOrdered By: Debbie Garcia on 09-23-2025 Bilirubin [Mass/Vol] 0.46 mg/dL 0.00-1.30 [facility] CBC W/Diff, Automatedon 08-28 Absolute Lymph 1.85 X10 3/uL Normal 0.83-4.51 [facility] Comment on above: Performed By: #### L 500.2500, L501.4021, L100.0100 #### [facility] [address] [place], [address] Absolute Neut 5.0 X10 3/uL Normal 2.0-7.7 [facility] Comment on above: Performed By: #### L 500.2500, L501.4021, L100.0100 #### [facility] [address] [place], [address] Basophils/100 WBC (Bld) 0.9 % Normal 0-[address] [facility] Comment on above: Performed By: #### L 500.2500, L501.4021, L100.0100 #### [facility] [address] [place], [address] Eosinophils/100 WBC (Bld) 1.3 % Normal 0-5 [facility] Comment on above: Performed By: #### L 500.2500, L501.4021, L100.0100 #### [facility] [address] [place], [address] Erythrocyte distribution width (RBC) [Ratio] 12.6 % Normal 11.6-14.6 [facility] Comment on above: Performed By: #### L 500.2500, L501.4021, L100.0100 #### [facility] [address] [place], [address] Hematocrit (Bld) [Volume fraction] 37.4 % Low 40-54 [facility] Comment on above: Performed By: #### L 500.2500, L501.4021, L100.0100 #### [facility] [address] [place], [address] Hemoglobin (Bld) [Mass/Vol] 13.6 g/dL Normal 13.0-16.5 [facility] Comment on above: Performed By: #### L 500.2500, L501.4021, L100.0100 #### [facility] [address] [place], [address] IG% 0.500 Normal 0.0-0.9 [facility] Comment on above: Result Comment: IG% - Immature Granulocytes (promyelocytes, myelocytes and metamyelocytes) > 1% indicates that a LEFT SHIFT is Present. Performed By: #### L 500.2500, L501.4021, L100.0100 #### [facility] [address] [place], [address] Lymphocytes/100 WBC (Bld) 23.2 % Normal 19-41 [facility] Comment on above: Performed By: #### L 500.2500, L501.4021, L100.0100 #### [facility] [address] [place], [address] MCH (RBC) [Entitic mass] 29.1 pg Normal 27.0-32.0 [facility] Comment on above: Performed By: #### L 500.2500, L501.4021, L100.0100 #### [facility] [address] [place], [address] MCHC (RBC) [Mass/Vol] 36.4 g/dL High 32-36 [facility] Comment on above: Performed By: #### L 500.2500, L501.4021, L100.0100 #### [facility] [address] [place], [address] MCV (RBC) [Entitic vol] 79.9 fL Low 80-[address] [facility] Comment on above: Performed By: #### L 500.2500, L501.4021, L100.0100 #### [facility] [address] [place], [address] Monocytes/100 WBC (Bld) 11.4 % High 0-[address] [facility] Comment on above: Performed By: #### L 500.2500, L501.4021, L100.0100 #### [facility] [address] [place], [address] Neutrophils/100 WBC (Bld) 62.7 % Normal 47-70 [facility] Comment on above: Performed By: #### L 500.2500, L501.4021, L100.0100 #### [facility] [address] [place], [address] Nucleated RBC (Bld) [#/Vol] 0 10*3/uL Normal 0-5 [facility] Comment on above: Performed By: #### L 500.2500, L501.4021, L100.0100 #### [facility] [address] [place], [address] Platelet mean volume (Bld) [Entitic vol] 9.0 fL Normal 6.2-12.0 [facility] Comment on above: Performed By: #### L 500.2500, L501.4021, L100.0100 #### [facility] [address] [place], [address] Platelets (Bld) [#/Vol] 331 10*3/uL Normal 150-450 [facility] Comment on above: Performed By: #### L 500.2500, L501.4021, L100.0100 #### [facility] [address] [place], [address] RBC (Bld) [#/Vol] 4.68 10*6/uL Normal 4.6-6.2 [facility] Comment on above: Performed By: #### L 500.2500, L501.4021, L100.0100 #### [facility] [address] [place], [address] RDW SD 35.8 fl Normal 35.1-43.9 [facility] Comment on above: Performed By: #### L 500.2500, L501.4021, L100.0100 #### [facility] [address] [place], [address] WBC (Bld) [#/Vol] 8.0 10*3/uL Normal 4.4-11.0 [facility] Comment on above: Performed By: #### L 500.2500, L501.4021, L100.0100 #### [facility] [address] [place], [address] Carbon dioxide, total [Moles /volume] in Central venous bloodOrdered By: Debbie Garcia on 09-23-2025 CO2 [Moles/Vol] 26.9 mmol/L 21.0-32.0 [facility] Chloride assayOrdered By: Francisca Garcia on 09-23-2025 Chloride [Moles/Vol] 88 mmol/L Low 98-108 [facility] Comprehensive Metabolic Prof ilon 09-23-2025 Albumin [Mass/Vol] 4.2 g/dL Normal 3.5-5.0 [facility] Comment on above: Performed By: #### L 500.2500, L501.4021, L100.0100 #### [facility] [address] [place], [address] Albumin/Globulin [Mass ratio] 1.3 {ratio} Normal 0.9-2.4 [facility] Comment on above: Performed By: #### L 500.2500, L501.4021, L100.0100 #### [facility] [address] [place], [address] ALK PHOS 61 U/L Normal 40-129 [facility] Comment on above: Performed By: #### L 500.2500, L501.4021, L100.0100 #### [facility] [address] [place], [address] ALT [Catalytic activity/Vol] 10 U/L Normal <=46 [facility] Comment on above: Performed By: #### L 500.2500, L501.4021, L100.0100 #### [facility] [address] [place], [address] AST [Catalytic activity/Vol] 26 U/L Normal <=37 [facility] Comment on above: Performed By: #### L 500.2500, L501.4021, L100.0100 #### [facility] [address] [place], [address] Bilirubin [Mass/Vol] 0.46 mg/dL Normal 0.00-1.30 [facility] Comment on above: Performed By: #### L 500.2500, L501.4021, L100.0100 #### [facility] [address] [place], [address] BUN/CRE 6.9 RATIO Low 10-20 [facility] Comment on above: Performed By: #### L 500.2500, L501.4021, L100.0100 #### [facility] [address] [place], [address] Calcium [Mass/Vol] 9.4 mg/dL Normal 7.6-11.0 [facility] Comment on above: Performed By: #### L 500.2500, L501.4021, L100.0100 #### [facility] [address] [place], [address] Chloride [Moles/Vol] 88 mmol/L Low 98-108 [facility] Comment on above: Performed By: #### L 500.2500, L501.4021, L100.0100 #### [facility] [address] [place], [address] CO2 [Moles/Vol] 26.9 mmol/L Normal 21.0-32.0 [facility] Comment on above: Performed By: #### L 500.2500, L501.4021, L100.0100 #### [facility] [address] [place], [address] Creatinine [Mass/Vol] 0.79 mg/dL Normal 0.70-1.20 [facility] Comment on above: Performed By: #### L 500.2500, L501.4021, L100.0100 #### [facility] [address] [place], [address] GAP 13 Normal 5-15 [facility] Comment on above: Performed By: #### L 500.2500, L501.4021, L100.0100 #### [facility] [address] [place], [address] GFR/1.73 sq M.predicted among non-blacks MDRD (S/P/Bld) [Vol rate/Area] 104 mL/min/{1.73_m2} Normal >60 [facility] Comment on above: Result Comment: mL/m in/1.73m2 CKD-EPI Creatinine Equation (2020) Performed By: #### L 500.2500, L501.4021, L100.0100 #### [facility] [address] [place], [address] Globulin (S) [Mass/Vol] 3.2 g/dL Normal 2.2-4.2 [facility] Comment on above: Performed By: #### L 500.2500, L501.4021, L100.0100 #### [facility] [address] [place], [address] Glucose [Mass/Vol] 92 mg/dL Normal 70-99 [facility] Comment on above: Performed By: #### L 500.2500, L501.4021, L100.0100 #### [facility] [address] [place], [address] Potassium [Moles/Vol] 3.2 mmol/L Low 3.3-5.1 [facility] Comment on above: Performed By: #### L 500.2500, L501.4021, L100.0100 #### [facility] [address] [place], [address] Sodium [Moles/Vol] 128 mmol/L Low 133-145 [facility] Comment on above: Performed By: #### L 500.2500, L501.4021, L100.0100 #### [facility] [address] [place], [address] T PROT 7.4 g/dL Normal 5.9-8.4 [facility] Comment on above: Performed By: #### L 500.2500, L501.4021, L100.0100 #### [facility] [address] [place], [address] Urea nitrogen [Mass/Vol] 5 mg/dL Normal 4-19 [facility] Comment on above: Performed By: #### L 500.2500, L501.4021, L100.0100 #### [facility] [address] [place], [address] Eosinophil percentageOrdered By: Debbie Garcia on 09-23-2025 Eosinophils/100 WBC (Bld) 1.3 % 0-5 [facility] Erythrocyte distribution wid th ratioOrdered By: Debbie Garcia on 09-23-2025 Erythrocyte distribution width (RBC) [Ratio] 12.6 % 11.6-14.6 [facility] Erythrocyte distribution wid th standard deviationOrdered By: Debbie Garcia on 09-23-2025 Erythrocyte distribution width (RBC) [Ratio] 35.8 fl 35.1-43.9 [facility] Gastroenterology Visit Repor ton 09-23-2025 Gastroenterology Visit Report [facility] Gastroenterology [address] [place] [address] OFFICE VISIT Date of Service: 09/23/25 MR#: [id number] Acct: [id number] Name: LYNNETTE GONG Rep #: [id number] : 1970 Provider: LANA Adan Age/Sex: 55/M Location: [facility] Status: Signed Intake Vital Signs 08/14/25 09:48 [...] and comfortable Nutritional Appearance: obese Orientation: alert HENPA Head: normal to inspection Eyes General: appearance [...] these medica (more content not included)... Normal [facility] Glomerular filtration rate ( GFR) estimation/1.73 sq m using serum, plasma, or whole bOrdered By: Debbie Garcia on 09-23-2025 GFR/1.73 sq M.predicted among non-blacks MDRD (S/P/Bld) [Vol rate/Area] 104 mL/min/{1.73_m2} >60 [facility] Comment on above: mL/min/1.73m2 CKD-EP I Creatinine Equation (2020) Hematocrit Auto (Bld) [Volum e fraction]Ordered By: Debbie Garcia on 09-23-2025 Hematocrit (Bld) [Volume fraction] 37.4 % Low 40-54 [facility] Hemoglobin measurementOrdere d By: Debbie Garcia on 09-23-2025 Hemoglobin (Bld) [Mass/Vol] 13.6 g/dL 13.0-16.5 [facility] Immature granulocytes/100 WB C Auto (Bld)Ordered By: Debbie Garcia on 09-23-2025 Immature granulocytes/100 WBC (Bld) 0.500 % 0.0-0.9 [facility] Comment on above: IG% - Immature Granu locytes (promyelocytes, myelocytes and metamyelocytes) > 1% indicates that a LEFT SHIFT is Present. Laboratory - Chemistry and C hemistry - challengeOrdered By: Debbie Garcia on 09-23-2025 AST [Catalytic activity/Vol] 26 U/L <38 [facility] MCV (mean corpuscular volume ) determinationOrdered By: Debbie Garcia on 09-23-2025 MCV (RBC) [Entitic vol] 79.9 fL Low 80-[address] [facility] Mean corpuscular hemoglobin (MCH) determinationOrdered By: Debbie Garcia on 09-23-2025 MCH (RBC) [Entitic mass] 29.1 pg 27.0-32.0 [facility] Mean corpuscular hemoglobin concentration (MCHC) determinationOrdered By: Debbie Garcia on 09-23-2025 MCHC (RBC) [Mass/Vol] 36.4 g/dL High 32-36 [facility] Mean platelet volume determi nationOrdered By: Debbie Garcia on 09-23-2025 Platelet mean volume (Bld) [Entitic vol] 9.0 fL 6.2-12.0 [facility] Monocyte percentageOrdered B y: Debbie Garcia on 09-23-2025 Monocytes/100 WBC (Bld) 11.4 % High 0-[address] [facility] Neutrophil percentageOrdered By: Debbie Garcia on 09-23-2025 Neutrophils/100 WBC (Bld) 62.7 % 47-70 [facility] Nucleated red blood cell per centageOrdered By: Debbie Garcia on 09-23-2025 Nucleated RBC/100 WBC (Bld) [Ratio] 0 % 0-5 [facility] Platelet countOrdered By: Francisca Garcia on 09-23-2025 Platelets (Bld) [#/Vol] 331 10*3/uL 150-450 [facility] Potassium measurement (mass/ volume)Ordered By: Debbie Garcia on 09-23-2025 Potassium (Unsp spec) [Mass/Vol] 3.2 mmol/L Low 3.3-5.1 [facility] RBC Auto (Bld) [#/Vol]Ordere d By: Debbie Garcia on 09-23-2025 RBC (Bld) [#/Vol] 4.68 10*6/uL 4.6-6.2 [facility] Serum creatinine measurement (mass/volume)Ordered By: Debbie Garcia on 09-23-2025 Creatinine [Mass/Vol] 0.79 mg/dL 0.70-1.20 [facility] Serum globulin measurementOr dered By: Debbie Garcia on 09-23-2025 Globulin (S) [Mass/Vol] 3.2 g/dL 2.2-4.[address] [facility] Serum glucose measurement (m ass/volume)Ordered By: Debbie Garcia on 09-23-2025 Glucose [Mass/Vol] 92 mg/dL 70-99 [facility] Serum or plasma alanine sanchez otransferase (ALT) measurementOrdered By: Debbie Garcia on 09-23-2025 ALT [Catalytic activity/Vol] 10 U/L <47 [facility] Serum or plasma albumin pepe urement (mass/volume)Ordered By: Debbie Garcia on 09-23-2025 Albumin [Mass/Vol] 4.2 g/dL 3.5-5.0 [facility] Serum or plasma albumin/glob ulin mass ratioOrdered By: Debbie Garcia on 09-23-2025 Albumin/Globulin [Mass ratio] 1.3 {ratio} 0.9-2.4 [facility] Serum or plasma alkaline logan sphatase measurementOrdered By: Debbie Garcia on 09-23-2025 ALP [Catalytic activity/Vol] 61 U/L 40-129 [facility] Serum or plasma calcium pepe urement (mass/volume)Ordered By: Debbie Garcia on 09-23-2025 Calcium [Mass/Vol] 9.4 mg/dL 7.6-11.0 [facility] Serum or plasma urea nitroge n measurement (mass/volume)Ordered By: Debbie Garcia on 09-23-2025 Urea nitrogen [Mass/Vol] 5 mg/dL 4-19 [facility] Sodium levelOrdered By: Kathie Garcia on 09-23-2025 Sodium [Moles/Vol] 128 mmol/L Low 133-145 [facility] Total proteinOrdered By: Suellen Garcia on 09-23-2025 Protein [Mass/Vol] 7.4 g/dL 5.9-8.4 [facility] White blood cell (WBC) count Ordered By: Debbie Garcia on 09-23-2025 WBC (Bld) [#/Vol] 8.0 10*3/uL 4.4-11.0 [facility] EGD Reporton 09-17-2025 EGD Report [facility] Medical Records Department [address] [place] [address] EGD Report MR#: [id number] Acct: [id number] Name: LYNNETTE GONG Rep #: [id number] : 1970 55 From: Tito Morris DO PCP: UMAIR Taveras Status:REG [facility] Patient Name: Lynnette Gong Procedure Date: 09/17/2025 [...] Hemoglobin A1c Procedure Code(s): --- Professional --- 20234, Small intestinal endoscopy, enteroscopy beyond second portion of duodenum, not including ileum; with biopsy, single or multiple CPT copyright 2021 [employer]. All rights reserved. The codes documented in this report are preliminary and upon medical surgery nurse review may be revised to meet current compliance requirements. Tito Morris DO 09/17/2025 2:06:55 PM This report has been signed electronically (more content not included)... Normal [facility] Immunohistochemical Stainson 09-17-2025 Immunohistochemical Stains Patient Age/Sex Location Account Attending Physician LYNNETTE GONG 55/M EN [id number] Tito Morris DO Specimen: [id number] Received: 09/17/25 Status: DONAVON Osuna Num: [id number] Spec Type: EGD BIOPSY Mamta Dr: Tito [...] developed and their performance characteristics determined by [facility]. They may not have been [...] specimen is totally submitted in one cassette. OR 09/17/2025 Patient Age/Sex Location Account Attending Physician LYNNETTE GONG/Tawny EN [id number] Tito Morris DO CPT:80417g9,87321 Patient Age/Sex Location Account Attending Physician LYNNETTE GONG/Tawny EN [id number] Tito Morris DO Signed (signature on file) Dr. Adrianne Bey MD 09/30/25 1357 Normal [facility] Comment on above: Performed By: #### P [facility] ####[facility] [id number] [facility] [place], [address] MR/OP.PROVATon 09-17-2025 [facility] Medical Records Department [address] [facility] [place] [address] Provation Physician Letter MR#: [id number] Acct: [id number] Name: LYNNETTE GONG Rep #: [id number] : 1970 55 From: Tito Morris DO PCP: UMAIR Taveras Status:REG [facility] 09/17/2025 Umair Taveras Re : Upper GI [...] This report has been signed electronically. 09/17/25 5596 Date Tito Ziegler Signature: Date (if indicated) CC: BINDERY WORKER-Juju Morris DO Date Dictated: 09/17/25 1332 Date Transcribed: Hot Saw Helper: RF Signed [facility] MR/POSTOP.ANE 09-17-2025 MR/POSTOP.[facility] Medical Records Department [address] [place] [address] Anesthesia Postop Eval I 09/17/25 1359 MR#: [id number] Acct: [id number] Name: LYNNETTE GONG Rep #: [id number] : 1970 55 From: Jean Jc PCP: UMAIR Taveras Status:REG SDC Y Race: C Location: [place] [address] Anesthesia: Postop Eval I Current Vital Signs [...] Date CC: Signed [facility] MR/ZYFKMITG3kv 09-17-2025 MR/POSTOPAN2 [facility] Medical Records Department [address] [place] [address] Anesthesia Postop Eval II 09/17/25 1422 MR#: [id number] Acct: [id number] Name: LYNNETTE GONG Rep #: [id number] : 1970 55 From: Mina Calle MD PCP: UMAIR Taveras Status:REG SDC Y Race: C Location: [facility] Anesthesia Postop Eval I Sum Postop [...] Calle MD Cosigner Signature: Date CC: Signed [facility] MR/Gina 09-15-2025 MR/[facility] Medical Records Department [address] [place] [address] PAT - Anesthesia 09/15/25 1404 MR#: [id number] Acct: [id number] Name: LYNNETTE GONG Rep #: [id number] : 1970 55 From: Mina Calle MD PCP: UMAIR Taveras Status:PRE SDC Y Race: C Location: EN Pre-Assessment Diagnosis/Proposed Procedure Planned Operative Procedure(s): EGD Anesthesia History Anesthesia History - 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: Anesthesia History - 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 Hx Hospitalization Yes: LOW SODIUM 06/202509/15/25 13:45 [...] take am of surgery PONV PONV - 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: PONV - 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 Female No 09/15/25 13:45 HX of Motion Sickness No 09/15/25 13:45 HX of N/V After Surgery No 09/15/25 13:45 Non-Smoker No 09/15/25 13:45 Duration of Surgery greater No 09/15/25 13:45 than 60 minutes Number of Risk Factors PONV Score Height Weight Height Weight: Anesthesia: Height Weight Height 5 ft 7 in 08/14/25 09:48 Respiratory Assessment Respiratory Assessment - 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: Respiratory Tract Infection Hx - 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 Hx Respiratory Tract Infection No 09/15/25 13:45 STOP Sleep Apnea STOP Sleep Apnea - 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: STOP Sleep Apnea - 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 Hx Hypertension Yes: STILL WORKING ON, 09/15/25 [...] Tobacco Use History Tobacco Use History - 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: Tobacco Use History - 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 Tobacco Use Smoking Status Current every day smoker 09/15/25 13:45 Hx Tobacco Use Yes 09/15/25 13:45 Years Smoking Packs Smoked per Day Smoking Cessation Date was within the last 15 years Hx Smoking Cessation Date Hx Smoking Cessation Counseling Hematologic Medial History 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 Normal [facility] Gastroenterology Visit Repor ton 08-26-2025 Gastroenterology Visit Report [facility] Gastroenterology [address] [place] [address] OFFICE VISIT Date of Service: 08/26/25 MR#: [id number] Acct: [id number] Name: LYNNETTE GONG Rep #: [id number] : 1970 Provider: LANA Adan Age/Sex: 55/M Location[place] [facility] [place] Status: Signed Intake Vital Signs 08/11/25 14:40 08/14/25 09:48 Height 5 ft 7 in 5 ft 7 in Weight: 304 lb 4 oz BMI 47.6 BP 144/87 H Respiration 18 Pulse 82 Temp 98.8 F Pulse Oximetry (%) 93 Oxygen Delivery Method room air Intake Visit Reasons: SCHEDULE FU PER ANANYA Chief Complaint: Nausea and vomiting Systems Manager Required: No Accompanied by: Self Is patient [...] #90 tabs 08/11/25 0 08/26/25 [facility] History History of CVA (cerebrovascular [...] to pharmac (more content not included)... Normal [facility] L509.6001on 08-14-2025 CORTISOL 35.80 ug/dL High 6.02-18.40 [facility] Comment on above: Order Comment: 60M Performed By: #### L 509.6001 ####[facility] [address] [place], [address] CORTISOL 29.20 ug/dL High 6.02-18.40 [facility] Comment on above: Order Comment: 30M Performed By: #### L 509.6001 ####[facility] [address] [place], [address] CORTISOL 20.60 ug/dL High 6.02-18.40 [facility] Comment on above: Order Comment: B Performed By: #### L 500.2500, L501.4021, L100.0100 #### [facility] [address] [place], [address] Serum or plasma cortisol cem surement (mass/volume)Ordered By: Elizabet Diop on 08-14-2025 Cortisol [Mass/Vol] 35.80 ug/dL High 6.02-18.40 [facility] Gastroenterology Visit Repor ton 08-11-2025 Gastroenterology Visit Report [facility] Gastroenterology [address] [place] [address] OFFICE VISIT Date of Service: 08/11/25 MR#: [id number] Acct: [id number] Name: LYNNETTE GONG Rep #: [id number] : 1970 Provider: UMAIR mccray Age/Sex: 54/M Location: [facility] [place] Status: Signed Intake Vital Signs 07/17/25 11:52 [...] Reasons: 1 M FU Chief Complaint: nausea Systems Manager Required: No Accompanied by: Self Is patient [...] #90 tabs 08/11/25 0 08/11/25 Rx release [facility] Medical History History of CVA (cerebrovascular accident) [...] drinking James (more content not included)... Normal [facility] Anion gap in Serum or Plasma Ordered By: Deborah Roa on 08-04-2025 Anion gap [Moles/Vol] 15 mmol/L - [facility] BUN/creatinine ratioOrdered By: Deborah Roa on 08-04-2025 Urea nitrogen/Creatinine [Mass ratio] 11.6 mg/mg - [facility] Basic Metabolic Profile (BMP )on 08-04-2025 BUN/CRE 11.6 RATIO Normal - [facility] Comment on above: Performed By: #### L 500.2500, L501.4021, L100.0100 #### [facility] [address] [place], [address] Calcium [Mass/Vol] 9.3 mg/dL Normal 7.6-11.0 [facility] Comment on above: Performed By: #### L 500.2500, L501.4021, L100.0100 #### [facility] [address] [place], [address] Chloride [Moles/Vol] 90 mmol/L Low 98-108 [facility] Comment on above: Performed By: #### L 500.2500, L501.4021, L100.0100 #### [facility] [address] [place], [address] CO2 [Moles/Vol] 22.5 mmol/L Normal 21.0-32.0 [facility] Comment on above: Performed By: #### L 500.2500, L501.4021, L100.0100 #### [facility] [address] [place], [address] Creatinine [Mass/Vol] 0.80 mg/dL Normal 0.70-1.20 [facility] Comment on above: Performed By: #### L 500.2500, L501.4021, L100.0100 #### [facility] [address] [place], [address] GAP 15 Normal 5-15 [facility] Comment on above: Performed By: #### L 500.2500, L501.4021, L100.0100 #### [facility] [address] [place], [address] GFR/1.73 sq M.predicted among non-blacks MDRD (S/P/Bld) [Vol rate/Area] 104 mL/min/{1.73_m2} Normal >60 [facility] Comment on above: Result Comment: mL/m in/1.73m2 CKD-EPI Creatinine Equation (2020) Performed By: #### L 500.2500, L501.4021, L100.0100 #### [facility] [address] [place], [address] Glucose [Mass/Vol] 96 mg/dL Normal 70-99 [facility] Comment on above: Performed By: #### L 500.2500, L501.4021, L100.0100 #### [facility] [address] [place], [address] Potassium [Moles/Vol] 4.2 mmol/L Normal 3.3-5.1 [facility] Comment on above: Performed By: #### L 500.2500, L501.4021, L100.0100 #### [facility] [address] [place], [address] Sodium [Moles/Vol] 128 mmol/L Low 133-145 [facility] Comment on above: Performed By: #### L 500.2500, L501.4021, L100.0100 #### [facility] [address] [place], [address] Urea nitrogen [Mass/Vol] 9 mg/dL Normal 4-19 [facility] Comment on above: Performed By: #### L 500.2500, L501.4021, L100.0100 #### [facility] [address] [place], [address] Carbon dioxide, total [Moles /volume] in Central venous bloodOrdered By: Deborah Roa on 08-04-2025 CO2 [Moles/Vol] 22.5 mmol/L 21.0-32.0 [facility] Chloride assayOrdered By: Ra jacoby Roa on 08-04-2025 Chloride [Moles/Vol] 90 mmol/L Low 98-108 [facility] Glomerular filtration rate ( GFR) estimation/1.73 sq m using serum, plasma, or whole bOrdered By: Deborah Roa on 08-04-2025 GFR/1.73 sq M.predicted among non-blacks MDRD (S/P/Bld) [Vol rate/Area] 104 mL/min/{1.73_m2} >60 [facility] Comment on above: mL/min/1.73m2 CKD-EP I Creatinine Equation (2020) Osmolality urOrdered By: Cecilio Roa on 08-04-2025 Osmolality (U) [Osmolality] 480 mOsm/KG >50 [facility] Comment on above: Normal Urine Referen ce Ranges Random: 50 - 1200 mOsm/kg H20 depending on fluid intake Random: >850 mOsm/kg after 12 hour fluid restriction 24 hour: ~300 - 900 mOsm/kg H2O Osmolality, Urineon 08-04-20 25 OSMOLALITY,UR 480 mOsm/KG Normal [facility] Comment on above: Result Comment: Normal Urine Reference Ranges Random: 50 - 1200 mOsm/kg H20 depending on fluid intake Random: >850 mOsm/kg after 12 hour fluid restriction 24 hour: 300 - 900 mOsm/kg H2O Performed By: #### L 500.2500, L501.4021, L100.0100 #### [facility] [address] [place], [place], [address] Potassium measurement (mass/ volume)Ordered By: Deborah Roa on 08-04-2025 Potassium (Unsp spec) [Mass/Vol] 4.2 mmol/L 3.3-5.1 [facility] Serum creatinine measurement (mass/volume)Ordered By: Deborah Roa on 08-04-2025 Creatinine [Mass/Vol] 0.80 mg/dL 0.70-1.20 [facility] Serum glucose measurement (m ass/volume)Ordered By: Deborah Roa on 08-04-2025 Glucose [Mass/Vol] 96 mg/dL 70-99 [facility] Serum or plasma calcium pepe urement (mass/volume)Ordered By: Deborah Roa on 08-04-2025 Calcium [Mass/Vol] 9.3 mg/dL 7.6-11.0 [facility] Serum or plasma urea nitroge n measurement (mass/volume)Ordered By: Deborah Roa on 08-04-2025 Urea nitrogen [Mass/Vol] 9 mg/dL 4-19 [facility] Sodium levelOrdered By: Gale Roa on 08-04-2025 Sodium [Moles/Vol] 128 mmol/L Low 133-145 [facility] Urine sodium measurement (mo les/volume)Ordered By: Deborah Roa on 08-04-2025 Sodium (U) [Moles/Vol] 48 mmol/L Normal Not Establ. [facility] Comment on above: Performed By: #### L 500.2500, L501.4021, L100.0100 #### [facility] [address] [place], [place], [address] Anion gap in Serum or Plasma Ordered By: Elizabet Diop on 07-17-2025 Anion gap [Moles/Vol] 14 mmol/L 5- [facility] BUN/creatinine ratioOrdered By: Elizabet Diop on 07-17-2025 Urea nitrogen/Creatinine [Mass ratio] 4.3 mg/mg Low - [facility] Basic Metabolic Profile (BMP )on 07-17-2025 BUN/CRE 4.3 RATIO Low - [facility] Comment on above: Performed By: #### L 501.9520, L500.2500, L509.6001 ####[facility] [address] [place], [address] GAP 14 Normal - [facility] Comment on above: Performed By: #### L 501.9520, L500.2500, L509.6001 ####[facility] [address] [place], [address] Potassium [Moles/Vol] 3.8 mmol/L Normal 3.3-5.1 [facility] Comment on above: Performed By: #### L 501.9520, L500.2500, L509.6001 ####[facility] [address] [place], [address] Carbon dioxide, total [Moles /volume] in Central venous bloodOrdered By: Elizabet Diop on 07-17-2025 CO2 [Moles/Vol] 22.7 mmol/L Normal 21.0-32.0 [facility] Comment on above: Performed By: #### L 501.9520, L500.2500, L509.6001 ####[facility] [address] [place], [address] Chloride assayOrdered By: Ortiz Diop on 07-17-2025 Chloride [Moles/Vol] 86 mmol/L Low 98-108 [facility] Comment on above: Performed By: #### L 501.9520, L500.2500, L509.6001 ####[facility] [address] [place], [address] Gastroenterology Visit Repor ton 07-17-2025 Gastroenterology Visit Report [facility] Gastroenterology [address] [place] [address] OFFICE VISIT Date of Service: 07/17/25 MR#: [id number] Acct: [id number] Name: LYNNETTE GONG Rep #: [id number] : 1970 Provider: UMAIR mccray Age/Sex: 54/M Location: [facility] Status: Signed Intake Vital Signs 06/23/25 15:12 [...] weight lock (more content not included)... Normal [facility] Glomerular filtration rate ( GFR) estimation/1.73 sq m using serum, plasma, or whole bOrdered By: Elizabet Diop on 07-17-2025 GFR/1.73 sq M.predicted among non-blacks MDRD (S/P/Bld) [Vol rate/Area] 104 mL/min/{1.73_m2} Normal >60 [facility] Comment on above: mL/min/1.73m2 CKD-EP I Creatinine Equation (2020) Result Comment: mL/m in/1.73m2 CKD-EPI Creatinine Equation (2020) Performed By: #### L 501.9520, L500.2500, L509.6001 ####[facility] [address] [place], [address] L509.6001on 07-17-2025 CORTISOL 6.83 ug/dL Normal 6.02-18.40 [facility] Comment on above: Performed By: #### L 500.2500, L501.4021, L100.0100 #### [facility] [address] [place], [address] Potassium measurement (mass/ volume)Ordered By: Elizabet Diop on 07-17-2025 Potassium (Unsp spec) [Mass/Vol] 3.8 mmol/L 3.3-5.1 [facility] Serum creatinine measurement (mass/volume)Ordered By: Elizabet Diop on 07-17-2025 Creatinine [Mass/Vol] 0.82 mg/dL Normal 0.70-1.20 [facility] Comment on above: Performed By: #### L 501.9520, L500.2500, L509.6001 ####[facility] [address] [place], [address] Serum glucose measurement (m ass/volume)Ordered By: Elizabet Diop on 07-17-2025 Glucose [Mass/Vol] 99 mg/dL Normal 70-99 [facility] Comment on above: Performed By: #### L 501.9520, L500.2500, L509.6001 ####[facility] [address] [place], [address] Serum or plasma calcium pepe urement (mass/volume)Ordered By: Elizabet Diop on 07-17-2025 Calcium [Mass/Vol] 9.2 mg/dL Normal 7.6-11.0 [facility] Comment on above: Performed By: #### L 501.9520, L500.2500, L509.6001 ####[facility] [address] [place], [address] Serum or plasma cortisol cem surement (mass/volume)Ordered By: Elizabet Diop on 07-17-2025 Cortisol [Mass/Vol] 6.83 ug/dL 6.02-18.40 [facility] Serum or plasma urea nitroge n measurement (mass/volume)Ordered By: Elizabet Diop on 07-17-2025 Urea nitrogen [Mass/Vol] 4 mg/dL Normal 4-19 [facility] Comment on above: Performed By: #### L 501.9520, L500.2500, L509.6001 ####[facility] [address] [place], [address] Sodium levelOrdered By: Ananya Diop on 07-17-2025 Sodium [Moles/Vol] 123 mmol/L Low 133-145 [facility] Comment on above: Performed By: #### L 501.9520, L500.2500, L509.6001 ####[facility] [address] [place], [address] TSH DL <= 0.005 mIU/L QnOrde red By: Elizabet Diop on 07-17-2025 TSH Qn 1.670 uIU/mL 0.300-4.200 [facility] Thyroid Stim Hormone (TSH)on 07-17-2025 TSH 1.670 uIU/mL Normal 0.300-4.200 [facility] Comment on above: Performed By: #### L 501.9520, L500.2500, L509.6001 ####[facility] [address] [place], [address] Abdomen Single Viewon 2024 Abdomen Single View [facility] Imaging Services [address] [place] [address] Abdomen Single View MR#: [id number] Acct: [id number] Name: LYNNETTE GONG Rep #: [id number] : 1970 M 54 From: Rodri Pagan MD PCP: UMAIR Taveras Status: REG ER Study: Abdomen Single View Date of Exam: 06/23/25 Exam# [id number] Ordering Dr: Juan Rush DO PROCEDURE: ABDOMEN [...] the rectum may indicate constipation.. Reading Location: [id number] CC: BINDERY WORKER-C Deborah Roa; Dr. Juan Rush DO Hot Saw Helper: Signed Normal [facility] Emergency Department Summary on 06-23-2025 Emergency Department Summary [facility] Medical Records Department [address] [place] [address] Emergency Department Summary 06/23/25 MR#: [id number] Acct: [id number] Name: LYNNETTE GONG Rep #: [id number] : 1970 54 From: Juan Salinas PCP: UMAIR Taveras Status:DEP ER Location: ED HPI HPI - GI History of Present Illness Chief Complaint: Constipation Informant: patient Narrative Narrative: Presents for constipation. Typically has normal bowel movement for last month's change. Vfzr-lql-gzgmuge stool softeners and MiraLAX. Saw his primary [...] until b (more content not included)... Normal [facility] Abdomen Single Viewon 2024 Abdomen Single View [facility] [address] [place], [place] [address] Abdomen Single View MR#: [id number] Acct: [id number] Name: LYNNETTE GONG Rep #: [id number] : 1970 M 54 From: Lynnette Rush MD PCP: UMAIR Taveras Status: REG CLI Study: Abdomen Single View Date of Exam: 06/17/25 Exam# [id number] Ordering Dr: Deborah Roa BINDERY WORKERLaurel EXAM: XR Abdomen, 1 View CLINICAL INDICATION: CONSTIPATION, MELENA, NAUSEA TECHNIQUE: Frontal supine view of the abdomen/pelvis. COMPARISON: No relevant prior studies available. FINDINGS: GASTROINTESTINAL TRACT: Fecal retention in the colon consistent with constipation. No dilation. BONES/JOINTS: Unremarkable. No acute fracture. RAD/Abdomen Single View IMPRESSION: Fecal retention in the colon consistent with constipation. Reading Location: [facility] CC: BINDERY WORKER-C Deborah Roa Hot Saw Helper: Signed Normal [facility] Absolute lymphocyte countOrd ered By: Deborah Roa on 06-17-2025 Lymphocytes Auto (Unsp spec) [#/Vol] 1.90 10*3/uL 0.83-4.51 [facility] Absolute neutrophil countOrd ered By: Deborah Roa on 06-17-2025 Neutrophils (Bld) [#/Vol] 8.0 10*3/uL High 2.0-7.7 [facility] Anion gap in Serum or Plasma Ordered By: Deborah Roa on 06-17-2025 Anion gap [Moles/Vol] 13 mmol/L 5-15 [facility] Automated lymphocyte count a s percentage of total leukocytesOrdered By: Deborah Stephensongar on 06-17-2025 Lymphocytes/100 WBC Auto (Unsp spec) 17.1 % Low 19-41 [facility] BUN/creatinine ratioOrdered By: Deborah Roa on 06-17-2025 Urea nitrogen/Creatinine [Mass ratio] 10.7 mg/mg 10- [facility] Basic Metabolic Profile (BMP )on 06-17-2025 BUN/CRE 10.7 RATIO Normal 10-20 [facility] Comment on above: Performed By: #### L 500.2500, L501.4021, L100.0100 #### [facility] [address] [place], [address] Calcium [Mass/Vol] 9.7 mg/dL Normal 7.6-11.0 [facility] Comment on above: Performed By: #### L 500.2500, L501.4021, L100.0100 #### [facility] [address] [place], [address] Chloride [Moles/Vol] 89 mmol/L Low 98-108 [facility] Comment on above: Performed By: #### L 500.2500, L501.4021, L100.0100 #### [facility] [address] [place], [address] CO2 [Moles/Vol] 21.8 mmol/L Normal 21.0-32.0 [facility] Comment on above: Performed By: #### L 500.2500, L501.4021, L100.0100 #### [facility] [address] [place], [address] Creatinine [Mass/Vol] 0.91 mg/dL Normal 0.70-1.20 [facility] Comment on above: Performed By: #### L 500.2500, L501.4021, L100.0100 #### [facility] [address] [place], [address] GAP 13 Normal 5-15 [facility] Comment on above: Performed By: #### L 500.2500, L501.4021, L100.0100 #### [facility] [address] [place], [address] GFR/1.73 sq M.predicted among non-blacks MDRD (S/P/Bld) [Vol rate/Area] 100 mL/min/{1.73_m2} Normal >60 [facility] Comment on above: Result Comment: mL/m in/1.73m2 CKD-EPI Creatinine Equation (2020) Performed By: #### L 500.2500, L501.4021, L100.0100 #### [facility] [address] [place], [address] Glucose [Mass/Vol] 106 mg/dL High 70-99 [facility] Comment on above: Performed By: #### L 500.2500, L501.4021, L100.0100 #### [facility] [address] [place], [address] Potassium [Moles/Vol] 4.6 mmol/L Normal 3.3-5.1 [facility] Comment on above: Performed By: #### L 500.2500, L501.4021, L100.0100 #### [facility] [address] [place], [address] Sodium [Moles/Vol] 124 mmol/L Low 133-145 [facility] Comment on above: Performed By: #### L 500.2500, L501.4021, L100.0100 #### [facility] [address] [place], [address] Urea nitrogen [Mass/Vol] 10 mg/dL Normal 4-19 [facility] Comment on above: Performed By: #### L 500.2500, L501.4021, L100.0100 #### [facility] [address] [place], [address] Basophil percentageOrdered B y: Deborah Roa on 06-17-2025 Basophils/100 WBC (Bld) 0.5 % 0-[address] [facility] CBC W/Diff, Automatedon 05-28 Absolute Lymph 1.90 X10 3/uL Normal 0.83-4.51 [facility] Comment on above: Performed By: #### L 500.2500, L501.4021, L100.0100 #### [facility] [address] [place], [address] Absolute Neut 8.0 X10 3/uL High 2.0-7.7 [facility] Comment on above: Performed By: #### L 500.2500, L501.4021, L100.0100 #### [facility] [address] [place], [address] Basophils/100 WBC (Bld) 0.5 % Normal 0-[address] [facility] Comment on above: Performed By: #### L 500.2500, L501.4021, L100.0100 #### [facility] [address] [place], [address] Eosinophils/100 WBC (Bld) 0.2 % Normal 0-5 [facility] Comment on above: Performed By: #### L 500.2500, L501.4021, L100.0100 #### [facility] [address] [place], [address] Erythrocyte distribution width (RBC) [Ratio] 13.0 % Normal 11.6-14.6 [facility] Comment on above: Performed By: #### L 500.2500, L501.4021, L100.0100 #### [facility] [address] [place], [address] Hematocrit (Bld) [Volume fraction] 39.4 % Low 40-54 [facility] Comment on above: Performed By: #### L 500.2500, L501.4021, L100.0100 #### [facility] [address] [place], [address] Hemoglobin (Bld) [Mass/Vol] 13.7 g/dL Normal 13.0-16.5 [facility] Comment on above: Performed By: #### L 500.2500, L501.4021, L100.0100 #### [facility] [address] [place], [address] IG% 0.700 Normal 0.0-0.9 [facility] Comment on above: Result Comment: IG% - Immature Granulocytes (promyelocytes, myelocytes and metamyelocytes) > 1% indicates that a LEFT SHIFT is Present. Performed By: #### L 500.2500, L501.4021, L100.0100 #### [facility] [address] [place], [address] Lymphocytes/100 WBC (Bld) 17.1 % Low 19-41 [facility] Comment on above: Performed By: #### L 500.2500, L501.4021, L100.0100 #### [facility] [address] [place], [address] MCH (RBC) [Entitic mass] 28.8 pg Normal 27.0-32.0 [facility] Comment on above: Performed By: #### L 500.2500, L501.4021, L100.0100 #### [facility] [address] [place], [address] MCHC (RBC) [Mass/Vol] 34.8 g/dL Normal 32-36 [facility] Comment on above: Performed By: #### L 500.2500, L501.4021, L100.0100 #### [facility] [address] [place], [address] MCV (RBC) [Entitic vol] 82.8 fL Normal 80-[address] [facility] Comment on above: Performed By: #### L 500.2500, L501.4021, L100.0100 #### [facility] [address] [place], [address] Monocytes/100 WBC (Bld) 9.4 % Normal 0-[address] [facility] Comment on above: Performed By: #### L 500.2500, L501.4021, L100.0100 #### [facility] [address] [place], [address] Neutrophils/100 WBC (Bld) 72.1 % High 47-70 [facility] Comment on above: Performed By: #### L 500.2500, L501.4021, L100.0100 #### [facility] [address] [place], [address] Nucleated RBC (Bld) [#/Vol] 0 10*3/uL Normal 0-5 [facility] Comment on above: Performed By: #### L 500.2500, L501.4021, L100.0100 #### [facility] [address] [place], [address] Platelet mean volume (Bld) [Entitic vol] 9.5 fL Normal 6.2-12.0 [facility] Comment on above: Performed By: #### L 500.2500, L501.4021, L100.0100 #### [facility] [address] [place], [address] Platelets (Bld) [#/Vol] 384 10*3/uL Normal 150-450 [facility] Comment on above: Performed By: #### L 500.2500, L501.4021, L100.0100 #### [facility] [address] [place], [address] RBC (Bld) [#/Vol] 4.76 10*6/uL Normal 4.6-6.2 [facility] Comment on above: Performed By: #### L 500.2500, L501.4021, L100.0100 #### [facility] [address] [place], [address] RDW SD 39.4 fl Normal 35.1-43.9 [facility] Comment on above: Performed By: #### L 500.2500, L501.4021, L100.0100 #### [facility] [address] [place], [address] WBC (Bld) [#/Vol] 11.1 10*3/uL High 4.4-11.0 [facility] Comment on above: Performed By: #### L 500.2500, L501.4021, L100.0100 #### [facility] [address] [place], [address] Carbon dioxide, total [Moles /volume] in Central venous bloodOrdered By: Deborah Roa on 06-17-2025 CO2 [Moles/Vol] 21.8 mmol/L 21.0-32.0 [facility] Chloride assayOrdered By: Ra jacoby Roa on 06-17-2025 Chloride [Moles/Vol] 89 mmol/L Low 98-108 [facility] Eosinophil percentageOrdered By: Deborah Roa on 06-17-2025 Eosinophils/100 WBC (Bld) 0.2 % 0-5 [facility] Erythrocyte distribution wid th ratioOrdered By: Deborah Roa on 06-17-2025 Erythrocyte distribution width (RBC) [Ratio] 13.0 % 11.6-14.6 [facility] Erythrocyte distribution wid th standard deviationOrdered By: Deborah Roa on 06-17-2025 Erythrocyte distribution width (RBC) [Ratio] 39.4 fl 35.1-43.9 [facility] Glomerular filtration rate ( GFR) estimation/1.73 sq m using serum, plasma, or whole bOrdered By: Deborah Roa on 06-17-2025 GFR/1.73 sq M.predicted among non-blacks MDRD (S/P/Bld) [Vol rate/Area] 100 mL/min/{1.73_m2} >60 [facility] Comment on above: mL/min/1.73m2 CKD-EP I Creatinine Equation (2020) Hematocrit Auto (Bld) [Volum e fraction]Ordered By: Deborah Roa on 06-17-2025 Hematocrit (Bld) [Volume fraction] 39.4 % Low 40-54 [facility] Hemoglobin measurementOrdere d By: Deborah Roa on 06-17-2025 Hemoglobin (Bld) [Mass/Vol] 13.7 g/dL 13.0-16.5 [facility] Immature granulocytes/100 WB C Auto (Bld)Ordered By: Deborah Roa on 06-17-2025 Immature granulocytes/100 WBC (Bld) 0.700 % 0.0-0.9 [facility] Comment on above: IG% - Immature Granu locytes (promyelocytes, myelocytes and metamyelocytes) > 1% indicates that a LEFT SHIFT is Present. MCV (mean corpuscular volume ) determinationOrdered By: Deborah Roa on 06-17-2025 MCV (RBC) [Entitic vol] 82.8 fL 80-[address] [facility] Mean corpuscular hemoglobin (MCH) determinationOrdered By: Deborahtony Roa on 06-17-2025 MCH (RBC) [Entitic mass] 28.8 pg 27.0-32.0 [facility] Mean corpuscular hemoglobin concentration (MCHC) determinationOrdered By: Deborah Roa on 06-17-2025 MCHC (RBC) [Mass/Vol] 34.8 g/dL 32-36 [facility] Mean platelet volume determi nationOrdered By: Deborah Roa on 06-17-2025 Platelet mean volume (Bld) [Entitic vol] 9.5 fL 6.2-12.0 [facility] Monocyte percentageOrdered B y: Deborah Roa on 06-17-2025 Monocytes/100 WBC (Bld) 9.4 % 0-[address] [facility] Neutrophil percentageOrdered By: Deborah Roa on 06-17-2025 Neutrophils/100 WBC (Bld) 72.1 % High 47-70 [facility] Nucleated red blood cell per centageOrdered By: Deborah Roa on 06-17-2025 Nucleated RBC/100 WBC (Bld) [Ratio] 0 % 0-5 [facility] Platelet countOrdered By: Ra jacoby Roa on 06-17-2025 Platelets (Bld) [#/Vol] 384 10*3/uL 150-450 [facility] Potassium measurement (mass/ volume)Ordered By: Deborah Roa on 06-17-2025 Potassium (Unsp spec) [Mass/Vol] 4.6 mmol/L 3.3-5.1 [facility] RBC Auto (Bld) [#/Vol]Ordere d By: Deborah Roa on 06-17-2025 RBC (Bld) [#/Vol] 4.76 10*6/uL 4.6-6.2 [facility] Serum creatinine measurement (mass/volume)Ordered By: Deborah Roa on 06-17-2025 Creatinine [Mass/Vol] 0.91 mg/dL 0.70-1.20 [facility] Serum glucose measurement (m ass/volume)Ordered By: Deborah Roa on 06-17-2025 Glucose [Mass/Vol] 106 mg/dL High 70-99 [facility] Serum or plasma calcium pepe urement (mass/volume)Ordered By: Deborah Roa on 06-17-2025 Calcium [Mass/Vol] 9.7 mg/dL 7.6-11.0 [facility] Serum or plasma urea nitroge n measurement (mass/volume)Ordered By: Deborah Roa on 06-17-2025 Urea nitrogen [Mass/Vol] 10 mg/dL 4-19 [facility] Sodium levelOrdered By: Gale Roa on 06-17-2025 Sodium [Moles/Vol] 124 mmol/L Low 133-145 [facility] White blood cell (WBC) count Ordered By: Deborah Roa on 06-17-2025 WBC (Bld) [#/Vol] 11.1 10*3/uL High 4.4-11.0 [facility] Low Dose CT Lung Screeningon 06-10-[address] Lung Screening [facility] [address] [place] [address] Lung Screening MR#: [id number] Acct: [id number] Name: LYNNETTE GONG Rep #: [id number] : 1970 M 54 From: Roger sena MD PCP: UMAIR Taveras Status: REG CLI Study: Low Dose CT Lung Screening Date of Exam: 06/10 Exam# [id number] Ordering Dr: Anay Bull NP, NP -Juju [...] use of iterative reconstruction technique). REFERENCE LINK: [employer]ALK Lung-RADS RADIATION DOSE SUMMARY: CTDlvol: 3.18 mGy [...] Location: [facility] CC: UMAIR Roa; UMAIR Bull Hot Saw Helper: Signed Normal [facility] Oncology Visit Reporton 05-27 Oncology Visit Report [facility] [address] [place] [address] OFFICE VISIT Date of Service: 06/10/25 1258 MR#: [id number] Acct: [id number] Name: LYNNETTE GONG Rep #: [id number] : 1970 From: Anay Bull NP BINDERY WORKER -C Age/Sex: 54/M Location: [facility] Status: Signed HPI HPI Reviewed eligibility [...] Exam Const Orientation: alert and oriented x3 [facility] Head: normocephalic and atraumatic Neck Neck: [...] 5 mg PO QDAY 05/12/25 06/10/25 [facility] Medical History (Updated 06/10/25 @ 14:29 by Anay Bull BINDERY WORKER, BINDERY WORKER-C) Tobacco use disorder, continuous Encounter for screening [...] We d (more content not included)... Normal [facility] Anion gap in Serum or Plasma Ordered By: Deborah Roa on 07-03-2025 Anion gap [Moles/Vol] 10 mmol/L 5- [facility] BUN/creatinine ratioOrdered By: Deborah Roa on 05-29-2025 Urea nitrogen/Creatinine [Mass ratio] 15.7 mg/mg - [facility] Basic Metabolic Profile (BMP )on 05-29-2025 BUN/CRE 15.7 RATIO Normal - [facility] Comment on above: Performed By: #### L 500.2500, L501.4021, L100.0100 #### [facility] [address] [place], [address] Calcium [Mass/Vol] 9.1 mg/dL Normal 7.6-11.0 [facility] Comment on above: Performed By: #### L 500.2500, L501.4021, L100.0100 #### [facility] [address] [place], [address] Chloride [Moles/Vol] 90 mmol/L Low 98-108 [facility] Comment on above: Performed By: #### L 500.2500, L501.4021, L100.0100 #### [facility] [address] [place], [address] CO2 [Moles/Vol] 23.5 mmol/L Normal 21.0-32.0 [facility] Comment on above: Performed By: #### L 500.2500, L501.4021, L100.0100 #### [facility] [address] [place], [address] Creatinine [Mass/Vol] 0.75 mg/dL Normal 0.70-1.20 [facility] Comment on above: Performed By: #### L 500.2500, L501.4021, L100.0100 #### [facility] [address] [place], [address] GAP 10 Normal - [facility] Comment on above: Performed By: #### L 500.2500, L501.4021, L100.0100 #### [facility] [address] [place], [address] GFR/1.73 sq M.predicted among non-blacks MDRD (S/P/Bld) [Vol rate/Area] 107 mL/min/{1.73_m2} Normal >60 [facility] Comment on above: Result Comment: mL/m in/1.73m2 CKD-EPI Creatinine Equation (2020) Performed By: #### L 500.2500, L501.4021, L100.0100 #### [facility] [address] [place], [address] Glucose [Mass/Vol] 99 mg/dL Normal 70-99 [facility] Comment on above: Performed By: #### L 500.2500, L501.4021, L100.0100 #### [facility] [address] [place], [address] Potassium [Moles/Vol] 4.6 mmol/L Normal 3.3-5.1 [facility] Comment on above: Performed By: #### L 500.2500, L501.4021, L100.0100 #### [facility] [address] [place], [address] Sodium [Moles/Vol] 123 mmol/L Low 133-145 [facility] Comment on above: Performed By: #### L 500.2500, L501.4021, L100.0100 #### [facility] [address] [place], [address] Urea nitrogen [Mass/Vol] 12 mg/dL Normal 4-19 [facility] Comment on above: Performed By: #### L 500.2500, L501.4021, L100.0100 #### [facility] [address] [place], [address] Carbon dioxide, total [Moles /volume] in Central venous bloodOrdered By: Deborah Roa on 05-29-2025 CO2 [Moles/Vol] 23.5 mmol/L 21.0-32.0 [facility] Chloride assayOrdered By: Ra jacoby Roa on 05-29-2025 Chloride [Moles/Vol] 90 mmol/L Low 98-108 [facility] Glomerular filtration rate ( GFR) estimation/1.73 sq m using serum, plasma, or whole bOrdered By: Deborah Roa on 05-29-2025 GFR/1.73 sq M.predicted among non-blacks MDRD (S/P/Bld) [Vol rate/Area] 107 mL/min/{1.73_m2} >60 [facility] Comment on above: mL/min/1.73m2 CKD-EP I Creatinine Equation (2020) Potassium measurement (mass/ volume)Ordered By: Deborah Roa on 05-29-2025 Potassium (Unsp spec) [Mass/Vol] 4.6 mmol/L 3.3-5.1 [facility] Serum creatinine measurement (mass/volume)Ordered By: Deborah Roa on 05-29-2025 Creatinine [Mass/Vol] 0.75 mg/dL 0.70-1.20 [facility] Serum glucose measurement (m ass/volume)Ordered By: Deborah Roa on 05-29-2025 Glucose [Mass/Vol] 99 mg/dL 70-99 [facility] Serum or plasma calcium pepe urement (mass/volume)Ordered By: Deborah Roa on 05-29-2025 Calcium [Mass/Vol] 9.1 mg/dL 7.6-11.0 [facility] Serum or plasma urea nitroge n measurement (mass/volume)Ordered By: Deborah Roa on 05-29-2025 Urea nitrogen [Mass/Vol] 12 mg/dL 4-19 [facility] Sodium levelOrdered By: Gale Roa on 05-29-2025 Sodium [Moles/Vol] 123 mmol/L Low 133-145 [facility] Anion gap in Serum or Plasma Ordered By: Deborah Roa on 05-20-2025 Anion gap [Moles/Vol] 11 mmol/L 5-15 [facility] BUN/creatinine ratioOrdered By: Deborah Roa on 05-20-2025 Urea nitrogen/Creatinine [Mass ratio] 6.7 mg/mg Low 10-20 [facility] Basic Metabolic Profile (BMP )on 05-20-2025 BUN/CRE 6.7 RATIO Low -20 [facility] Comment on above: Performed By: #### L 500.2500, L501.4021, L100.0100 #### [facility] [address] [place], [address] Calcium [Mass/Vol] 8.9 mg/dL Normal 7.6-11.0 [facility] Comment on above: Performed By: #### L 500.2500, L501.4021, L100.0100 #### [facility] [address] [place], [address] Chloride [Moles/Vol] 83 mmol/L Low 98-108 [facility] Comment on above: Performed By: #### L 500.2500, L501.4021, L100.0100 #### [facility] [address] [place], [address] CO2 [Moles/Vol] 23.2 mmol/L Normal 21.0-32.0 [facility] Comment on above: Performed By: #### L 500.2500, L501.4021, L100.0100 #### [facility] [address] [place], [address] Creatinine [Mass/Vol] 0.69 mg/dL Low 0.70-1.20 [facility] Comment on above: Performed By: #### L 500.2500, L501.4021, L100.0100 #### [facility] [address] [place], [address] GAP 11 Normal 5-15 [facility] Comment on above: Performed By: #### L 500.2500, L501.4021, L100.0100 #### [facility] [address] [place], [address] GFR/1.73 sq M.predicted among non-blacks MDRD (S/P/Bld) [Vol rate/Area] 109 mL/min/{1.73_m2} Normal >60 [facility] Comment on above: Result Comment: mL/m in/1.73m2 CKD-EPI Creatinine Equation (2020) Performed By: #### L 500.2500, L501.4021, L100.0100 #### [facility] [address] [place], [address] Glucose [Mass/Vol] 105 mg/dL High 70-99 [facility] Comment on above: Performed By: #### L 500.2500, L501.4021, L100.0100 #### [facility] [address] [place], [address] Potassium [Moles/Vol] 4.3 mmol/L Normal 3.3-5.1 [facility] Comment on above: Performed By: #### L 500.2500, L501.4021, L100.0100 #### [facility] [address] [place], [address] Sodium [Moles/Vol] 118 mmol/L Invalid Interpretation Code 133-145 [facility] Comment on above: Result Comment: Crit ical Result(s) Called at: by:??Results read back by same. CALLED OFFICE AND LEFT MESSAGE AT 1622 Critical Result(s) Called at: by:??Results read back by same. Performed By: #### L 500.2500, L501.4021, L100.0100 #### [facility] [address] [place], [address] Urea nitrogen [Mass/Vol] 5 mg/dL Normal 4-19 [facility] Comment on above: Performed By: #### L 500.2500, L501.4021, L100.0100 #### [facility] [address] [place], [address] Carbon dioxide, total [Moles /volume] in Central venous bloodOrdered By: Deborah Roa on 05-20-2025 CO2 [Moles/Vol] 23.2 mmol/L 21.0-32.0 [facility] Chloride assayOrdered By: Ra jacoby Roa on 05-20-2025 Chloride [Moles/Vol] 83 mmol/L Low 98-108 [facility] Glomerular filtration rate ( GFR) estimation/1.73 sq m using serum, plasma, or whole bOrdered By: Deborah Roa on 05-20-2025 GFR/1.73 sq M.predicted among non-blacks MDRD (S/P/Bld) [Vol rate/Area] 109 mL/min/{1.73_m2} >60 [facility] Comment on above: mL/min/1.73m2 CKD-EP I Creatinine Equation (2020) Potassium measurement (mass/ volume)Ordered By: Deborah Roa on 05-20-2025 Potassium (Unsp spec) [Mass/Vol] 4.3 mmol/L 3.3-5.1 [facility] Serum creatinine measurement (mass/volume)Ordered By: Deborah Roa on 05-20-2025 Creatinine [Mass/Vol] 0.69 mg/dL Low 0.70-1.20 [facility] Serum glucose measurement (m ass/volume)Ordered By: Deborah Roa on 05-20-2025 Glucose [Mass/Vol] 105 mg/dL High 70-99 [facility] Serum or plasma calcium pepe urement (mass/volume)Ordered By: Deborah Roa on 05-20-2025 Calcium [Mass/Vol] 8.9 mg/dL 7.6-11.0 [facility] Serum or plasma urea nitroge n measurement (mass/volume)Ordered By: Deborah Roa on 05-20-2025 Urea nitrogen [Mass/Vol] 5 mg/dL 4-19 [facility] Sodium levelOrdered By: Gale Roa on 05-20-2025 Sodium [Moles/Vol] 118 mmol/L Critically low 133-145 [facility] Comment on above: Critical Result(s) C alled at: by: Results read back by same.CALLED OFFICE AND LEFT MESSAGE AT 1622Critical Result(s) Called at: by: Results read back by same. Surgery Visit Reporton 05-12 Surgery Visit Report [facility] [address] [place] [address] OFFICE VISIT Date of Service: 05/12/25 MR#: [id number] Acct: [id number] Name: LYNNETTE GONG Rep #: [id number] : 1970 Provider: Dr. Betty brooke MD Age/Sex: 54/M Location: [facility] Status: Signed Intake Vital [...] mg PO QDAY 05/12/25 05/12/25 His tory [facility] Medical History (Updated 05/14/25 @ 08:19 by [...] General: cooperative, comfortable and no acute distress HENPA Head: normocephalic and atraumatic Neck Neck: supple [...] of clear (more content not included)... Normal [facility] Anion gap in Serum or Plasma Ordered By: Kevin Singh on 05-05-2025 Anion gap [Moles/Vol] 10 mmol/L 5-15 [facility] BUN/creatinine ratioOrdered By: Kevin Singh on 05-05-2025 Urea nitrogen/Creatinine [Mass ratio] 7.9 mg/mg Low - [facility] Basic Metabolic Profile (BMP )on 05-05-2025 BUN/CRE 7.9 RATIO Low - [facility] Comment on above: Performed By: #### L 500.2500, L501.4021, L100.0100 #### [facility] [address] [place], [address] Calcium [Mass/Vol] 8.7 mg/dL Normal 7.6-11.0 [facility] Comment on above: Performed By: #### L 500.2500, L501.4021, L100.0100 #### [facility] [address] [place], [address] Chloride [Moles/Vol] 93 mmol/L Low 98-108 [facility] Comment on above: Performed By: #### L 500.2500, L501.4021, L100.0100 #### [facility] [address] [place], [address] CO2 [Moles/Vol] 23.7 mmol/L Normal 21.0-32.0 [facility] Comment on above: Performed By: #### L 500.2500, L501.4021, L100.0100 #### [facility] [address] [place], [address] Creatinine [Mass/Vol] 0.73 mg/dL Normal 0.70-1.20 [facility] Comment on above: Performed By: #### L 500.2500, L501.4021, L100.0100 #### [facility] [address] [place], [address] ECRCL 163.37 ml/min Normal 50-250 [facility] Comment on above: Performed By: #### L 500.2500, L501.4021, L100.0100 #### [facility] [address] [place], [address] GAP 10 Normal 5-15 [facility] Comment on above: Performed By: #### L 500.2500, L501.4021, L100.0100 #### [facility] [address] [place], [address] GFR/1.73 sq M.predicted among non-blacks MDRD (S/P/Bld) [Vol rate/Area] 107 mL/min/{1.73_m2} Normal >60 [facility] Comment on above: Result Comment: mL/m in/1.73m2 CKD-EPI Creatinine Equation (2020) Performed By: #### L 500.2500, L501.4021, L100.0100 #### [facility] [address] [place], [address] Glucose [Mass/Vol] 105 mg/dL High 70-99 [facility] Comment on above: Performed By: #### L 500.2500, L501.4021, L100.0100 #### [facility] [address] [place], [address] Potassium [Moles/Vol] 4.1 mmol/L Normal 3.3-5.1 [facility] Comment on above: Performed By: #### L 500.2500, L501.4021, L100.0100 #### [facility] [address] [place], [address] Sodium [Moles/Vol] 127 mmol/L Low 133-145 [facility] Comment on above: Performed By: #### L 500.2500, L501.4021, L100.0100 #### [facility] [address] [place], [address] Urea nitrogen [Mass/Vol] 6 mg/dL Normal 4-19 [facility] Comment on above: Performed By: #### L 500.2500, L501.4021, L100.0100 #### [facility] [address] [place], [address] Carbon dioxide, total [Moles /volume] in Central venous bloodOrdered By: Kevin Singh on 05-05-2025 CO2 [Moles/Vol] 23.7 mmol/L 21.0-32.0 [facility] Chloride assayOrdered By: Norris Singh on 05-05-2025 Chloride [Moles/Vol] 93 mmol/L Low 98-108 [facility] Electrocardiogram reportOrde red By: Patrick Tian on 05-05-2025 EKG study [facility] [address] [place] [address] 12 Lead EKG 05/03/25 1622 MR#: [id number] Acct: [id number] Name: LYNNETTE GONG Rep #:[id number] : 1970 54 From: Patrick meadows MD Attending Dr: Dr. Kevin Singh DO Status: ADM IN Ordering Dr: Allan Jc DO Date: Location: [facility] Sex: M C Admitted: 05/03/25 Test [...] ABNORMAL ECG Confirmed by Patrick Tian ([id number]), video news editor TITO FRIAS ([id number]) on 05/05/2025 9:20:06 AM Referred By: Confirmed By: Patrick Tian 05/05/25919 Date _ Patrick Tian MD CC: UMAIR Roa; Dr. Kevin Singh DO; Dr. Allan Jc DO ~ Signed [facility] Other Phone: Glomerular filtration rate ( GFR) estimation/1.73 sq m using serum, plasma, or whole bOrdered By: Kevin Singh on 05-05-2025 GFR/1.73 sq M.predicted among non-blacks MDRD (S/P/Bld) [Vol rate/Area] 107 mL/min/{1.73_m2} >60 [facility] Comment on above: mL/min/1.73m2 CKD-EP I Creatinine Equation (2020) Potassium measurement (mass/ volume)Ordered By: Kevin Singh on 05-05-2025 Potassium (Unsp spec) [Mass/Vol] 4.1 mmol/L 3.3-5.1 [facility] Serum creatinine measurement (mass/volume)Ordered By: Kevin Singh on 05-05-2025 Creatinine [Mass/Vol] 0.73 mg/dL 0.70-1.20 [facility] Serum glucose measurement (m ass/volume)Ordered By: Kevin iSngh on 05-05-2025 Glucose [Mass/Vol] 105 mg/dL High 70-99 [facility] Serum or plasma calcium pepe urement (mass/volume)Ordered By: Kevin Singh on 05-05-2025 Calcium [Mass/Vol] 8.7 mg/dL 7.6-11.0 [facility] Serum or plasma urea nitroge n measurement (mass/volume)Ordered By: Kevin Singh on 05-05-2025 Urea nitrogen [Mass/Vol] 6 mg/dL 4-19 [facility] Sodium levelOrdered By: Kevin Singh on 05-05-2025 Sodium [Moles/Vol] 127 mmol/L Low 133-145 [facility] Absolute lymphocyte countOrd ered By: Meseret Minor on 05-04-2025 Lymphocytes Auto (Unsp spec) [#/Vol] 2.08 10*3/uL 0.83-4.51 [facility] Absolute neutrophil countOrd ered By: Meseret Minor on 05-04-2025 Neutrophils (Bld) [#/Vol] 6.0 10*3/uL 2.0-7.7 [facility] Automated lymphocyte count a s percentage of total leukocytesOrdered By: Meseret Minor on 05-04-2025 Lymphocytes/100 WBC Auto (Unsp spec) 22.7 % 19-41 [facility] Basic Metabolic Profile (BMP )on 05-04-2025 BUN/CRE 11.4 RATIO Normal 10-20 [facility] Comment on above: Performed By: #### L 500.2500, L501.4021, L100.0100 #### [facility] [address] [place], [address] Calcium [Mass/Vol] 8.8 mg/dL Normal 7.6-11.0 [facility] Comment on above: Performed By: #### L 500.2500, L501.4021, L100.0100 #### [facility] [address] [place], [address] Chloride [Moles/Vol] 90 mmol/L Low 98-108 [facility] Comment on above: Performed By: #### L 500.2500, L501.4021, L100.0100 #### [facility] [address] [place], [address] CO2 [Moles/Vol] 20.0 mmol/L Low 21.0-32.0 [facility] Comment on above: Performed By: #### L 500.2500, L501.4021, L100.0100 #### [facility] [address] [place], [address] Creatinine [Mass/Vol] 0.64 mg/dL Low 0.70-1.20 [facility] Comment on above: Performed By: #### L 500.2500, L501.4021, L100.0100 #### [facility] [address] [place], [address] ECRCL 187.67 ml/min Normal 50-250 [facility] [facility] Comment on above: Performed By: #### L 500.2500, L501.4021, L100.0100 #### [facility] [address] [place], [address] GAP 11 Normal 5-15 [facility] Comment on above: Performed By: #### L 500.2500, L501.4021, L100.0100 #### [facility] [address] [place], [address] GFR/1.73 sq M.predicted among non-blacks MDRD (S/P/Bld) [Vol rate/Area] 112 mL/min/{1.73_m2} Normal >60 [facility] Comment on above: Result Comment: mL/m in/1.73m2 CKD-EPI Creatinine Equation (2020) Performed By: #### L 500.2500, L501.4021, L100.0100 #### [facility] [address] [place], [address] Glucose [Mass/Vol] 114 mg/dL High 70-99 [facility] Comment on above: Performed By: #### L 500.2500, L501.4021, L100.0100 #### [facility] [address] [place], [address] Potassium [Moles/Vol] 4.4 mmol/L Normal 3.3-5.1 [facility] Comment on above: Performed By: #### L 500.2500, L501.4021, L100.0100 #### [facility] [address] [place], [address] Sodium [Moles/Vol] 121 mmol/L Low 133-145 [facility] Comment on above: Performed By: #### L 500.2500, L501.4021, L100.0100 #### [facility] [address] [place], [address] Urea nitrogen [Mass/Vol] 7 mg/dL Normal 4-19 [facility] Comment on above: Performed By: #### L 500.2500, L501.4021, L100.0100 #### [facility] [address] [place], [address] BUN Normal 4-19 [facility] Comment on above: Result Comment: CANC ELLATION ORDER ENTERED Performed By: #### L 500.2500, L501.4021, L100.0100 #### [facility] [address] [place], [address] BUN/CRE Normal 10-20 [facility] Comment on above: Result Comment: CANC ELLATION ORDER ENTERED Performed By: #### L 500.2500, L501.4021, L100.0100 #### [facility] [address] [place], [address] Calcium Normal 7.6-11.0 [facility] Comment on above: Result Comment: CANC ELLATION ORDER ENTERED Performed By: #### L 500.2500, L501.4021, L100.0100 #### [facility] [address] [place], [address] CL Normal 98-108 [facility] Comment on above: Result Comment: CANC ELLATION ORDER ENTERED Performed By: #### L 500.2500, L501.4021, L100.0100 #### [facility] [address] [place], [address] CO2 Normal 21.0-32.0 [facility] Comment on above: Result Comment: CANC ELLATION ORDER ENTERED Performed By: #### L 500.2500, L501.4021, L100.0100 #### [facility] [address] [place], [address] CREAT,SERUM Normal 0.70-1.20 [facility] Comment on above: Result Comment: CANC ELLATION ORDER ENTERED Performed By: #### L 500.2500, L501.4021, L100.0100 #### [facility] [address] [place], [address] eGFR Normal >60 [facility] Comment on above: Result Comment: CANC ELLATION ORDER ENTERED Performed By: #### L 500.2500, L501.4021, L100.0100 #### [facility] [address] [place], [address] GAP Normal 5-15 [facility] Comment on above: Result Comment: CANC ELLATION ORDER ENTERED Performed By: #### L 500.2500, L501.4021, L100.0100 #### [facility] [address] [place], [address] GLU Normal 70-99 [facility] Comment on above: Result Comment: CANC ELLATION ORDER ENTERED Performed By: #### L 500.2500, L501.4021, L100.0100 #### [facility] [address] [place], [address] Potassium Normal 3.3-5.1 [facility] Comment on above: Result Comment: CANC ELLATION ORDER ENTERED Performed By: #### L 500.2500, L501.4021, L100.0100 #### [facility] [address] [place], [address] Basic Metabolic Profile (BMP) Normal 133-145 [facility] Comment on above: Result Comment: CANC ELLATION ORDER ENTERED Performed By: #### L 500.2500, L501.4021, L100.0100 #### [facility] [address] [place], [address] BUN/CRE 9.3 RATIO Low 10-20 [facility] Comment on above: Performed By: #### L 500.2500 #### [facility] [address] [place], [address] Calcium [Mass/Vol] 8.7 mg/dL Normal 7.6-11.0 [facility] Comment on above: Performed By: #### L 500.2500 #### [facility] [address] [place], [address] Chloride [Moles/Vol] 88 mmol/L Low 98-108 [facility] Comment on above: Performed By: #### L 500.2500 #### [facility] [address] [place], [address] CO2 [Moles/Vol] 21.4 mmol/L Normal 21.0-32.0 [facility] Comment on above: Performed By: #### L 500.2500 #### [facility] [address] [place], [address] Creatinine [Mass/Vol] 0.71 mg/dL Normal 0.70-1.20 [facility] Comment on above: Performed By: #### L 500.2500 #### [facility] [address] [place], [address] ECRCL 169.17 ml/min Normal 50-250 [facility] Comment on above: Performed By: #### L 500.2500 #### [facility] [address] [place], [address] GAP 12 Normal 5-15 [facility] Comment on above: Performed By: #### L 500.2500 #### [facility] [address] [place], [address] GFR/1.73 sq M.predicted among non-blacks MDRD (S/P/Bld) [Vol rate/Area] 108 mL/min/{1.73_m2} Normal >60 [facility] Comment on above: Result Comment: mL/m in/1.73m2 CKD-EPI Creatinine Equation (2020) Performed By: #### L 500.2500 #### [facility] [address] [place], [address] Glucose [Mass/Vol] 98 mg/dL Normal 70-99 [facility] Comment on above: Performed By: #### L 500.2500 #### [facility] [address] [place], [address] Potassium [Moles/Vol] 3.8 mmol/L Normal 3.3-5.1 [facility] Comment on above: Performed By: #### L 500.2500 #### [facility] [address] [place], [address] Sodium [Moles/Vol] 121 mmol/L Low 133-145 [facility] Comment on above: Performed By: #### L 500.2500 #### [facility] [address] [place], [address] Urea nitrogen [Mass/Vol] 7 mg/dL Normal 4-19 [facility] Comment on above: Performed By: #### L 500.2500 #### [facility] [address] [place], [address] Basophil percentageOrdered B y: Meseret Minor on 05-04-2025 Basophils/100 WBC (Bld) 0.7 % 0-[address] [facility] Bilirubin, totalOrdered By: Meseret Minor on 05-04-2025 Bilirubin [Mass/Vol] 0.56 mg/dL 0.00-1.30 [facility] CBC W/Diff, Automatedon Absolute Lymph 2.08 X10 3/uL Normal 0.83-4.51 [facility] Comment on above: Performed By: #### L 500.2500, L501.4021, L100.0100 #### [facility] [address] [place], [address] Absolute Neut 6.0 X10 3/uL Normal 2.0-7.7 [facility] Comment on above: Performed By: #### L 500.2500, L501.4021, L100.0100 #### [facility] [address] [place], [address] Basophils/100 WBC (Bld) 0.7 % Normal 0-[address] [facility] Comment on above: Performed By: #### L 500.2500, L501.4021, L100.0100 #### [facility] [address] [place], [address] Eosinophils/100 WBC (Bld) 0.2 % Normal 0-5 [facility] Comment on above: Performed By: #### L 500.2500, L501.4021, L100.0100 #### [facility] [address] [place], [address] Erythrocyte distribution width (RBC) [Ratio] 12.6 % Normal 11.6-14.6 [facility] Comment on above: Performed By: #### L 500.2500, L501.4021, L100.0100 #### [facility] [address] [place], [address] Hematocrit (Bld) [Volume fraction] 37.9 % Low 40-54 [facility] Comment on above: Performed By: #### L 500.2500, L501.4021, L100.0100 #### [facility] [address] [place], [address] Hemoglobin (Bld) [Mass/Vol] 14.0 g/dL Normal 13.0-16.5 [facility] Comment on above: Performed By: #### L 500.2500, L501.4021, L100.0100 #### [facility] [address] [place], [address] IG% 0.800 Normal 0.0-0.9 [facility] Comment on above: Result Comment: IG% - Immature Granulocytes (promyelocytes, myelocytes and metamyelocytes) > 1% indicates that a LEFT SHIFT is Present. Performed By: #### L 500.2500, L501.4021, L100.0100 #### [facility] [address] [place], [address] Lymphocytes/100 WBC (Bld) 22.7 % Normal 19-41 [facility] Comment on above: Performed By: #### L 500.2500, L501.4021, L100.0100 #### [facility] [address] [place], [address] MCH (RBC) [Entitic mass] 30.0 pg Normal 27.0-32.0 [facility] Comment on above: Performed By: #### L 500.2500, L501.4021, L100.0100 #### [facility] [address] [place], [address] MCHC (RBC) [Mass/Vol] 36.9 g/dL High 32-36 [facility] Comment on above: Performed By: #### L 500.2500, L501.4021, L100.0100 #### [facility] [address] [place], [address] MCV (RBC) [Entitic vol] 81.3 fL Normal 80-94 [facility] Comment on above: Performed By: #### L 500.2500, L501.4021, L100.0100 #### [facility] [address] [place], [address] Monocytes/100 WBC (Bld) 10.3 % High 0-[address] [facility] Comment on above: Performed By: #### L 500.2500, L501.4021, L100.0100 #### [facility] [address] [place], [address] Neutrophils/100 WBC (Bld) 65.3 % Normal 47-70 [facility] Comment on above: Performed By: #### L 500.2500, L501.4021, L100.0100 #### [facility] [address] [place], [address] Nucleated RBC (Bld) [#/Vol] 0 10*3/uL Normal 0-5 [facility] Comment on above: Performed By: #### L 500.2500, L501.4021, L100.0100 #### [facility] [address] [place], [address] Platelet mean volume (Bld) [Entitic vol] 9.1 fL Normal 6.2-12.0 [facility] Comment on above: Performed By: #### L 500.2500, L501.4021, L100.0100 #### [facility] [address] [place], [address] Platelets (Bld) [#/Vol] 252 10*3/uL Normal 150-450 [facility] Comment on above: Performed By: #### L 500.2500, L501.4021, L100.0100 #### [facility] [address] [place], [address] RBC (Bld) [#/Vol] 4.66 10*6/uL Normal 4.6-6.2 [facility] Comment on above: Performed By: #### L 500.2500, L501.4021, L100.0100 #### [facility] [address] [place], [address] RDW SD 37.4 fl Normal 35.1-43.9 [facility] Comment on above: Performed By: #### L 500.2500, L501.4021, L100.0100 #### [facility] [address] [place], [address] WBC (Bld) [#/Vol] 9.2 10*3/uL Normal 4.4-11.0 [facility] Comment on above: Performed By: #### L 500.2500, L501.4021, L100.0100 #### [facility] [address] [place], [address] Comprehensive Metabolic Prof ilon 05-04-2025 Albumin [Mass/Vol] 3.9 g/dL Normal 3.5-5.0 [facility] Comment on above: Performed By: #### L 500.2500, L501.4021, L100.0100 #### [facility] [address] [place], [address] Albumin/Globulin [Mass ratio] 1.6 {ratio} Normal 0.9-2.4 [facility] Comment on above: Performed By: #### L 500.2500, L501.4021, L100.0100 #### [facility] [address] [place], [address] ALK PHOS 56 U/L Normal 40-129 [facility] Comment on above: Performed By: #### L 500.2500, L501.4021, L100.0100 #### [facility] [address] [place], [address] ALT [Catalytic activity/Vol] 12 U/L Normal <=46 [facility] Comment on above: Performed By: #### L 500.2500, L501.4021, L100.0100 #### [facility] [address] [place], [address] AST [Catalytic activity/Vol] 20 U/L Normal <=37 [facility] Comment on above: Performed By: #### L 500.2500, L501.4021, L100.0100 #### [facility] [address] [place], [address] Bilirubin [Mass/Vol] 0.56 mg/dL Normal 0.00-1.30 [facility] Comment on above: Performed By: #### L 500.2500, L501.4021, L100.0100 #### [facility] [address] [place], [address] BUN/CRE 9.3 RATIO Low 10-20 [facility] Comment on above: Performed By: #### L 500.2500, L501.4021, L100.0100 #### [facility] [address] [place], [address] Calcium [Mass/Vol] 8.7 mg/dL Normal 7.6-11.0 [facility] Comment on above: Performed By: #### L 500.2500, L501.4021, L100.0100 #### [facility] [address] [place], [address] Chloride [Moles/Vol] 89 mmol/L Low 98-108 [facility] Comment on above: Performed By: #### L 500.2500, L501.4021, L100.0100 #### [facility] [address] [place], [address] CO2 [Moles/Vol] 22.0 mmol/L Normal 21.0-32.0 [facility] Comment on above: Performed By: #### L 500.2500, L501.4021, L100.0100 #### [facility] [address] [place], [address] Creatinine [Mass/Vol] 0.62 mg/dL Low 0.70-1.20 [facility] Comment on above: Performed By: #### L 500.2500, L501.4021, L100.0100 #### [facility] [address] [place], [address] ECRCL 193.73 ml/min Normal 50-250 [facility] Comment on above: Performed By: #### L 500.2500, L501.4021, L100.0100 #### [facility] [address] [place], [address] GAP 11 Normal 5-15 [facility] Comment on above: Performed By: #### L 500.2500, L501.4021, L100.0100 #### [facility] [address] [place], [address] GFR/1.73 sq M.predicted among non-blacks MDRD (S/P/Bld) [Vol rate/Area] 113 mL/min/{1.73_m2} Normal >60 [facility] Comment on above: Result Comment: mL/m in/1.73m2 CKD-EPI Creatinine Equation (2020) Performed By: #### L 500.2500, L501.4021, L100.0100 #### [facility] [address] [place], [address] Globulin (S) [Mass/Vol] 2.4 g/dL Normal 2.2-4.2 [facility] Comment on above: Performed By: #### L 500.2500, L501.4021, L100.0100 #### [facility] [address] [place], [address] Glucose [Mass/Vol] 101 mg/dL High 70-99 [facility] Comment on above: Performed By: #### L 500.2500, L501.4021, L100.0100 #### [facility] [address] [place], [address] Potassium [Moles/Vol] 3.8 mmol/L Normal 3.3-5.1 [facility] Comment on above: Performed By: #### L 500.2500, L501.4021, L100.0100 #### [facility] [address] [place], [address] Sodium [Moles/Vol] 123 mmol/L Low 133-145 [facility] Comment on above: Performed By: #### L 500.2500, L501.4021, L100.0100 #### [facility] [address] [place], [address] T PROT 6.3 g/dL Normal 5.9-8.4 [facility] Comment on above: Performed By: #### L 500.2500, L501.4021, L100.0100 #### [facility] [address] [place], [address] Urea nitrogen [Mass/Vol] 6 mg/dL Normal 4-19 [facility] Comment on above: Performed By: #### L 500.2500, L501.4021, L100.0100 #### [facility] [address] [place], [address] Eosinophil percentageOrdered By: Meseret Minor on 05-04-2025 Eosinophils/100 WBC (Bld) 0.2 % 0-5 [facility] Erythrocyte distribution wid th ratioOrdered By: Meseret Minor on 05-04-2025 Erythrocyte distribution width (RBC) [Ratio] 12.6 % 11.6-14.6 [facility] Erythrocyte distribution wid th standard deviationOrdered By: Meseret Minor on 05-04-2025 Erythrocyte distribution width (RBC) [Ratio] 37.4 fl 35.1-43.9 [facility] Hematocrit Auto (Bld) [Volum e fraction]Ordered By: Meseret Minor on 05-04-2025 Hematocrit (Bld) [Volume fraction] 37.9 % Low 40-54 [facility] Hemoglobin measurementOrdere d By: Meseret Minor on 05-04-2025 Hemoglobin (Bld) [Mass/Vol] 14.0 g/dL 13.0-16.5 [facility] Immature granulocytes/100 WB C Auto (Bld)Ordered By: Meseret Minor on 05-04-2025 Immature granulocytes/100 WBC (Bld) 0.800 % 0.0-0.9 [facility] Comment on above: IG% - Immature Granu locytes (promyelocytes, myelocytes and metamyelocytes) > 1% indicates that a LEFT SHIFT is Present. Laboratory - Chemistry and C hemistry - challengeOrdered By: Meseret Minor on 05-04-2025 AST [Catalytic activity/Vol] 20 U/L <38 [facility] MCV (mean corpuscular volume ) determinationOrdered By: Meseret Minor on 05-04-2025 MCV (RBC) [Entitic vol] 81.3 fL 80-[address] [facility] Magnesiumon 05-04-2025 Magnesium [Mass/Vol] 1.9 mg/dL Normal 1.5-2.2 [facility] Comment on above: Performed By: #### L 500.2500, L501.4021, L100.0100 #### [facility] [address] [place], [address] Magnesium measurement (mass/ volume)Ordered By: Meseret Minor on 05-04-2025 Magnesium (Unsp spec) [Mass/Vol] 1.9 mg/dL 1.5-2.2 [facility] Mean corpuscular hemoglobin (MCH) determinationOrdered By: Meseret Minor on 05-04-2025 MCH (RBC) [Entitic mass] 30.0 pg 27.0-32.0 [facility] Mean corpuscular hemoglobin concentration (MCHC) determinationOrdered By: Meseret Minor on 05-04-2025 MCHC (RBC) [Mass/Vol] 36.9 g/dL High 32-36 [facility] Mean platelet volume determi nationOrdered By: Meseret Minor on 05-04-2025 Platelet mean volume (Bld) [Entitic vol] 9.1 fL 6.2-12.0 [facility] Monocyte percentageOrdered B y: Meseret Minor on 05-04-2025 Monocytes/100 WBC (Bld) 10.3 % High 0-[address] [facility] Neutrophil percentageOrdered By: Meseret Minor on 05-04-2025 Neutrophils/100 WBC (Bld) 65.3 % 47-70 [facility] Nucleated red blood cell per centageOrdered By: Meseret Minor on 05-04-2025 Nucleated RBC/100 WBC (Bld) [Ratio] 0 % 0-5 [facility] Osmolality, Urineon 05-04-20 25 OSMOLALITY,UR 181 mOsm/KG Normal [facility] Comment on above: Result Comment: Normal Urine Reference Ranges Random: 50 - 1200 mOsm/kg H20 depending on fluid intake Random: >850 mOsm/kg after 12 hour fluid restriction 24 hour: 300 - 900 mOsm/kg H2O Performed By: #### L 501.7400, L501.5500 #### [facility] [address] [place], [address] Phosphoruson 05-04-2025 Phosphate [Mass/Vol] 3.9 mg/dL Normal 2.7-4.5 [facility] Comment on above: Performed By: #### L 500.2500, L501.4021, L100.0100 #### [facility] [address] [place], [address] Platelet countOrdered By: Bhavesh Minor on 05-04-2025 Platelets (Bld) [#/Vol] 252 10*3/uL 150-450 [facility] RBC Auto (Bld) [#/Vol]Ordere d By: Meseret Minor on 05-04-2025 RBC (Bld) [#/Vol] 4.66 10*6/uL 4.6-6.2 [facility] Serum globulin measurementOr dered By: Meseret Minor on 05-04-2025 Globulin (S) [Mass/Vol] 2.4 g/dL 2.2-4.2 [facility] Serum or plasma alanine sanchez otransferase (ALT) measurementOrdered By: Mesreet Minor on 05-04-2025 ALT [Catalytic activity/Vol] 12 U/L <47 [facility] Serum or plasma albumin pepe urement (mass/volume)Ordered By: Meseret Minor on 05-04-2025 Albumin [Mass/Vol] 3.9 g/dL 3.5-5.0 [facility] Serum or plasma albumin/glob ulin mass ratioOrdered By: Meseret Minor on 05-04-2025 Albumin/Globulin [Mass ratio] 1.6 {ratio} 0.9-2.4 [facility] Serum or plasma alkaline logan sphatase measurementOrdered By: Meseret Minor on 05-04-2025 ALP [Catalytic activity/Vol] 56 U/L 40-129 [facility] Total proteinOrdered By: Magalie Minor on 05-04-2025 Protein [Mass/Vol] 6.3 g/dL 5.9-8.4 [facility] Urine Drug Screen ([facility]IST[facility])on 05-04-2025 AMPHETAMINES Negative Normal <1000 ng/mL [facility] Comment on above: Performed By: #### L 500.2500, L501.4021, L100.0100 #### [facility] [address] [place], [address] BARBITIURATES Negative Normal < 200 ng/mL [facility] Comment on above: Performed By: #### L 500.2500, L501.4021, L100.0100 #### [facility] [address] [place], [address] BENZODIAZIPINE Negative Normal < 200 ng/mL [facility] Comment on above: Performed By: #### L 500.2500, L501.4021, L100.0100 #### [facility] [address] [place], [address] BUP Ur Drug Scr Negative Normal < 200 ng/mL [facility] Comment on above: Performed By: #### L 500.2500, L501.4021, L100.0100 #### [facility] [address] [place], [address] COCAINE Negative Normal < 300 ng/mL [facility] Comment on above: Performed By: #### L 500.2500, L501.4021, L100.0100 #### [facility] [address] [place], [address] Fentanyl Negative Normal [facility] Comment on above: Performed By: #### L 500.2500, L501.4021, L100.0100 #### [facility] [address] [place], [address] METHADONE Negative Normal < 300 ng/mL [facility] Comment on above: Performed By: #### L 500.2500, L501.4021, L100.0100 #### [facility] [address] [place], [address] OPIATES Negative Normal < 300 ng/mL [facility] Comment on above: Performed By: #### L 500.2500, L501.4021, L100.0100 #### [facility] [address] [place], [address] OXYCODONE Negative Normal < 100 ng/mL [facility] Comment on above: Performed By: #### L 500.2500, L501.4021, L100.0100 #### [facility] [address] [place], [address] PCP Negative Normal < 25 ng/mL [facility] Comment on above: Performed By: #### L 500.2500, L501.4021, L100.0100 #### [facility] [address] [place], [address] THC Negative Normal < 50 ng/mL [facility] Comment on above: Performed By: #### L 500.2500, L501.4021, L100.0100 #### [facility] [address] [place], [address] Urine Sodiumon 05-04-2025 Sodium (U) [Moles/Vol] 33 mmol/L Normal Not Establ. [facility] Comment on above: Performed By: #### L 501.7400, L501.5500 #### [facility] [address] [place], [address] White blood cell (WBC) count Ordered By: Meseret Minor on 05-04-2025 WBC (Bld) [#/Vol] 9.2 10*3/uL 4.4-11.0 [facility] 12 Lead EKGon 05-03-2025 12 Lead EKG [facility] [address] [place] [address] 12 Lead EKG 05/03/25 1622 MR#: [id number] Acct: [id number] Name: LYNNETTE GONG Rep #: [id number] : 1970 54 From: Patrick Tian MD Attending Dr: Dr. Kevin Singh DO Status: ADM IN Ordering Dr: Alaln Jc DO Date: 05/03/25 Location: [facility] Sex: M C Admitted: 05/03/25 Test [...] ABNORMAL ECG Confirmed by Patrick Tian ([id number]), video news editor TITO FRIAS ([id number]) on 05/05/2025 9:20:06 AM Referred By: Confirmed By: Patrick Tian 05/05/25919 Date Patrick Tian MD CC: UMAIR Roa; Dr. Kevin Singh DO; Dr. Allan Jc DO Signed Normal [facility] Absolute lymphocyte countOrd ered By: Allan Jc on 05-03-2025 Lymphocytes Auto (Unsp spec) [#/Vol] 1.81 10*3/uL 0.83-4.51 [facility] Absolute neutrophil countOrd ered By: Allan Jc on 05-03-2025 Neutrophils (Bld) [#/Vol] 8.9 10*3/uL High 2.0-7.7 [facility] Amphetamine detection with 1 000 ng/mL as cutoffOrdered By: Meseret Minor on 05-03-2025 Amphetamines Screen method >1000 ng/mL Ql (U) Negative < 200 ng/mL [facility] Anion gap in Serum or Plasma Ordered By: Allan Jc on 05-03-2025 Anion gap [Moles/Vol] 13 mmol/L 5-15 [facility] Automated lymphocyte count a s percentage of total leukocytesOrdered By: Allan Jc on 05-03-2025 Lymphocytes/100 WBC Auto (Unsp spec) 15.6 % Low 19-41 [facility] BUN/creatinine ratioOrdered By: Allan Jc on 05-03-2025 Urea nitrogen/Creatinine [Mass ratio] 6.9 mg/mg Low 10-20 [facility] Basic Metabolic Profile (BMP )on 05-03-2025 BUN/CRE 7.6 RATIO Low 10- [facility] Comment on above: Performed By: #### L 500.2500, L501.4021, L100.0100 #### [facility] [address] [place], [address] Calcium [Mass/Vol] 9.1 mg/dL Normal 7.6-11.0 [facility] Comment on above: Performed By: #### L 500.2500, L501.4021, L100.0100 #### [facility] [address] [place], [address] Chloride [Moles/Vol] 85 mmol/L Low 98-108 [facility] Comment on above: Performed By: #### L 500.2500, L501.4021, L100.0100 #### [facility] [address] [place], [address] CO2 [Moles/Vol] 22.2 mmol/L Normal 21.0-32.0 [facility] Comment on above: Performed By: #### L 500.2500, L501.4021, L100.0100 #### [facility] [address] [place], [address] Creatinine [Mass/Vol] 0.75 mg/dL Normal 0.70-1.20 [facility] Comment on above: Performed By: #### L 500.2500, L501.4021, L100.0100 #### [facility] [address] [place], [address] ECRCL 160.33 ml/min Normal 50-250 [facility] Comment on above: Performed By: #### L 500.2500, L501.4021, L100.0100 #### [facility] [address] [place], [address] GAP 12 Normal 5-15 [facility] Comment on above: Performed By: #### L 500.2500, L501.4021, L100.0100 #### [facility] [address] [place], [address] GFR/1.73 sq M.predicted among non-blacks MDRD (S/P/Bld) [Vol rate/Area] 107 mL/min/{1.73_m2} Normal >60 [facility] Comment on above: Result Comment: mL/m in/1.73m2 CKD-EPI Creatinine Equation (2020) Performed By: #### L 500.2500, L501.4021, L100.0100 #### [facility] [address] [place], [address] Glucose [Mass/Vol] 104 mg/dL High 70-99 [facility] Comment on above: Performed By: #### L 500.2500, L501.4021, L100.0100 #### [facility] [address] [place], [address] Potassium [Moles/Vol] 4.5 mmol/L Normal 3.3-5.1 [facility] Comment on above: Performed By: #### L 500.2500, L501.4021, L100.0100 #### [facility] [address] [place], [address] Sodium [Moles/Vol] 119 mmol/L Invalid Interpretation Code 133145 [facility] Comment on above: Result Comment: Crit ical Result(s) Called at: 05/03/2025-21:28 by: Cuba Varela to Jolly Worthington.??Results read back by same. Performed By: #### L 500.2500, L501.4021, L100.0100 #### [facility] [address] [place], [address] Urea nitrogen [Mass/Vol] 6 mg/dL Normal 4-19 [facility] Comment on above: Performed By: #### L 500.2500, L501.4021, L100.0100 #### [facility] [address] [place], [address] BUN/CRE 6.9 RATIO Low 10-20 [facility] Comment on above: Performed By: #### L 500.2500, L501.4021, L100.0100 #### [facility] [address] [place], [address] Calcium [Mass/Vol] 9.1 mg/dL Normal 7.6-11.0 [facility] Comment on above: Performed By: #### L 500.2500, L501.4021, L100.0100 #### [facility] [address] [place], [address] Chloride [Moles/Vol] 84 mmol/L Low 98-108 [facility] Comment on above: Performed By: #### L 500.2500, L501.4021, L100.0100 #### [facility] [address] [place], [address] CO2 [Moles/Vol] 21.4 mmol/L Normal 21.0-32.0 [facility] Comment on above: Performed By: #### L 500.2500, L501.4021, L100.0100 #### [facility] [address] [place], [address] Creatinine [Mass/Vol] 0.74 mg/dL Normal 0.70-1.20 [facility] Comment on above: Performed By: #### L 500.2500, L501.4021, L100.0100 #### [facility] [address] [place], [address] ECRCL 162.50 ml/min Normal 50-250 [facility] Comment on above: Performed By: #### L 500.2500, L501.4021, L100.0100 #### [facility] [address] [place], [address] GAP 13 Normal 5-15 [facility] Comment on above: Performed By: #### L 500.2500, L501.4021, L100.0100 #### [facility] [address] [place], [address] GFR/1.73 sq M.predicted among non-blacks MDRD (S/P/Bld) [Vol rate/Area] 107 mL/min/{1.73_m2} Normal >60 [facility] Comment on above: Result Comment: mL/m in/1.73m2 CKD-EPI Creatinine Equation (2020) Performed By: #### L 500.2500, L501.4021, L100.0100 #### [facility] [address] [place], [address] Glucose [Mass/Vol] 113 mg/dL High 70-99 [facility] Comment on above: Performed By: #### L 500.2500, L501.4021, L100.0100 #### [facility] [address] [place], [address] Potassium [Moles/Vol] 4.5 mmol/L Normal 3.3-5.1 [facility] Comment on above: Performed By: #### L 500.2500, L501.4021, L100.0100 #### [facility] [address] [place], [address] Sodium [Moles/Vol] 119 mmol/L Invalid Interpretation Code 133-145 [facility] Comment on above: Result Comment: Crit ical Result(s) Called at: 1620 by: SARA to Adin MATA.??Results read back by same. Performed By: #### L 500.2500, L501.4021, L100.0100 #### [facility] [address] [place], [address] Urea nitrogen [Mass/Vol] 5 mg/dL Normal 4-19 [facility] Comment on above: Performed By: #### L 500.2500, L501.4021, L100.0100 #### [facility] [address] [place], [address] Basophil percentageOrdered B y: Allan Jc on 05-03-2025 Basophils/100 WBC (Bld) 0.5 % 0-[address] [facility] Bilirubin Test strip Ql (U)O rdered By: Meseret Minor on 05-03-2025 Bilirubin Ql (U) Negative Negative [facility] CBC W/Diff, Automatedon Absolute Lymph 1.81 X10 3/uL Normal 0.83-4.51 [facility] Comment on above: Performed By: #### L 500.2500, L501.4021, L100.0100 #### [facility] [address] [place], [address] Absolute Neut 8.9 X10 3/uL High 2.0-7.7 [facility] Comment on above: Performed By: #### L 500.2500, L501.4021, L100.0100 #### [facility] [address] [place], [address] Basophils/100 WBC (Bld) 0.5 % Normal 0-[address] [facility] Comment on above: Performed By: #### L 500.2500, L501.4021, L100.0100 #### [facility] [address] [place], [address] Eosinophils/100 WBC (Bld) 0.1 % Normal 0-5 [facility] Comment on above: Performed By: #### L 500.2500, L501.4021, L100.0100 #### [facility] [address] [place], [address] Erythrocyte distribution width (RBC) [Ratio] 12.6 % Normal 11.6-14.6 [facility] Comment on above: Performed By: #### L 500.2500, L501.4021, L100.0100 #### [facility] [address] [place], [address] Hematocrit (Bld) [Volume fraction] 41.1 % Normal 40-54 [facility] Comment on above: Performed By: #### L 500.2500, L501.4021, L100.0100 #### [facility] [address] [place], [address] Hemoglobin (Bld) [Mass/Vol] 14.8 g/dL Normal 13.0-16.5 [facility] Comment on above: Performed By: #### L 500.2500, L501.4021, L100.0100 #### [facility] [address] [place], [address] IG% 0.600 Normal 0.0-0.9 [facility] Comment on above: Result Comment: IG% - Immature Granulocytes (promyelocytes, myelocytes and metamyelocytes) > 1% indicates that a LEFT SHIFT is Present. Performed By: #### L 500.2500, L501.4021, L100.0100 #### [facility] [address] [place], [address] Lymphocytes/100 WBC (Bld) 15.6 % Low 19-41 [facility] Comment on above: Performed By: #### L 500.2500, L501.4021, L100.0100 #### [facility] [address] [place], [address] MCH (RBC) [Entitic mass] 29.2 pg Normal 27.0-32.0 [facility] Comment on above: Performed By: #### L 500.2500, L501.4021, L100.0100 #### [facility] [address] [place], [address] MCHC (RBC) [Mass/Vol] 36.0 g/dL Normal 32-36 [facility] Comment on above: Performed By: #### L 500.2500, L501.4021, L100.0100 #### [facility] [address] [place], [address] MCV (RBC) [Entitic vol] 81.2 fL Normal 80-94 [facility] Comment on above: Performed By: #### L 500.2500, L501.4021, L100.0100 #### [facility] [address] [place], [address] Monocytes/100 WBC (Bld) 6.7 % Normal 0-10 [facility] Comment on above: Performed By: #### L 500.2500, L501.4021, L100.0100 #### [facility] [address] [place], [address] Neutrophils/100 WBC (Bld) 76.5 % High 47-70 [facility] Comment on above: Performed By: #### L 500.2500, L501.4021, L100.0100 #### [facility] [address] [place], [address] Nucleated RBC (Bld) [#/Vol] 0 10*3/uL Normal 0-5 [facility] Comment on above: Performed By: #### L 500.2500, L501.4021, L100.0100 #### [place] [facility] [address] [place], [address] Platelet mean volume (Bld) [Entitic vol] 9.0 fL Normal 6.2-12.0 [facility] Comment on above: Performed By: #### L 500.2500, L501.4021, L100.0100 #### [facility] [address] [place], [address] Platelets (Bld) [#/Vol] 313 10*3/uL Normal 150-450 [facility] Comment on above: Performed By: #### L 500.2500, L501.4021, L100.0100 #### [facility] [address] [place], [address] RBC (Bld) [#/Vol] 5.06 10*6/uL Normal 4.6-6.2 [facility] Comment on above: Performed By: #### L 500.2500, L501.4021, L100.0100 #### [facility] [address] [place], [address] RDW SD 37.1 fl Normal 35.1-43.9 [facility] Comment on above: Performed By: #### L 500.2500, L501.4021, L100.0100 #### [facility] [address] [place], [address] WBC (Bld) [#/Vol] 11.6 10*3/uL High 4.4-11.0 [facility] Comment on above: Performed By: #### L 500.2500, L501.4021, L100.0100 #### [facility] [address] [place], [address] Carbon dioxide, total [Moles /volume] in Central venous bloodOrdered By: Allan Jc on 05-03-2025 CO2 [Moles/Vol] 21.4 mmol/L 21.0-32.0 [facility] Chest PA and Lateralon 05-03 Chest PA and Lateral [facility] Imaging Services [address] [place] [address] Chest PA and Lateral MR#: [id number] Acct: [id number] Name: LYNNETTE GONG Rep #: [id number] : 1970 M 54 From: Agnes Degroot nd, MD PCP: UMAIR Taveras Status: REG ER Study: Chest PA and Lateral Date of Exam: 05/03/25 Exam# [id number] Ordering Dr: Allan Jc DO PROCEDURE: CHEST [...] Lateral IMPRESSION: NO ACUTE FINDINGS. Reading Location: [facility] CC: BINDERY WORKER-C Deborah Roa; Dr. Allan Jc DO Hot Saw Helper: Signed Normal [facility] Chloride assayOrdered By: Osiel Jc on 05-03-2025 Chloride [Moles/Vol] 84 mmol/L Low 98-108 [facility] Emergency Department Summary on 05-03-2025 Emergency Department Summary [facility] Medical Records Department [address] [place] [address] Emergency Department Summary 05/03/25 MR#: [id number] Acct: [id number] Name: LYNNETTE GONG Rep #: [id number] : 1970 54 From: Allan Jc DO [...] that he no longer has a headache. [facility] Medical History (Updated 05/03/25 @ [...] following commands knew that he was at [facility] year is 2024 patient NIH of [...] by radio (more content not included)... Normal [facility] Eosinophil percentageOrdered By: Allan Jc on 05-03-2025 Eosinophils/100 WBC (Bld) 0.1 % 0-5 [facility] Erythrocyte distribution wid th ratioOrdered By: Allan Jc on 05-03-2025 Erythrocyte distribution width (RBC) [Ratio] 12.6 % 11.6-14.6 [facility] Erythrocyte distribution wid th standard deviationOrdered By: Allan Jc on 05-03-2025 Erythrocyte distribution width (RBC) [Ratio] 37.1 fl 35.1-43.9 [facility] Free T3on 05-03-2025 Free T3 [Mass/Vol] 2.8 pg/mL Normal 2.18-3.98 [facility] Comment on above: Performed By: #### L 501.45711, L501.9520, L506.0400 ####[facility] [address] [place], [address] Free G3Wvyqduj By: Allan silva on 05-03-2025 Free T3 [Mass/Vol] 2.8 pg/mL 2.18-3.98 [facility] Free T3 [Mass/Vol] 2.8 pg/mL 2.18-3.98 [facility] Glomerular filtration rate ( GFR) estimation/1.73 sq m using serum, plasma, or whole bOrdered By: Allan Jc on 05-03-2025 GFR/1.73 sq M.predicted among non-blacks MDRD (S/P/Bld) [Vol rate/Area] 107 mL/min/{1.73_m2} >60 [facility] Comment on above: mL/min/1.73m2 CKD-EP I Creatinine Equation (2020) H AND P Exam - [facility]iston 05-03-2025 H&P Exam - Hospitalist [facility] Medical Records Department [address] [place] [address] H P Exam - Hospitalist 05/03/25 1806 MR#: [id number] Acct: [id number] Name: LYNNETTE GONG Rep #: [id number] : 1970 54 From: Meseret Minor DO PCP: UMAIR Taveras Status:ADM IN Location: [place] [id number] HPI - General General Date of Admission: 05/03/25 Date of Service: 05/03/25 Chief Complaint: Elevated blood pressure HPI Narrative LYNNETTE GONG, is a 54 M who presented to the emergency department [facility] on 05/03/2025 with the chief complaint [...] his most recent blood pressure at 159/89. [facility] Medical History HTN (hypertension) Morbid obesity Home [...] other Hematologic/Ly (more content not included)... Normal [facility] Hematocrit Auto (Bld) [Volum e fraction]Ordered By: Allan Jc on 05-03-2025 Hematocrit (Bld) [Volume fraction] 41.1 % 40-54 [facility] Hemoglobin A1con 05-03-2025 HbA1c (Bld) [Mass fraction] 6.0 % High <=5.6 [facility] Comment on above: Result Comment: Norm al < 5.7 % Prediabetic 5.7 - 6.4 % Diabetic >or= 6.5 % Please note range changes. Performed By: #### L 500.2500, L501.4021, L100.0100 #### [facility] [address] [place], [address] Hemoglobin A1c percentageOrd ered By: Allan Jc on 05-03-2025 HbA1c (Bld) [Mass fraction] 6.0 % High <5.7 [facility] Comment on above: Normal < 5.7 % Predi abetic 5.7 - 6.4 % Diabetic >or= 6.5 % Please note range changes. Hemoglobin measurementOrdere d By: Allan Jc on 05-03-2025 Hemoglobin (Bld) [Mass/Vol] 14.8 g/dL 13.0-16.5 [facility] Immature granulocytes/100 WB C Auto (Bld)Ordered By: Allan Jc on 05-03-2025 Immature granulocytes/100 WBC (Bld) 0.600 % 0.0-0.9 [facility] Comment on above: IG% - Immature Granu locytes (promyelocytes, myelocytes and metamyelocytes) > 1% indicates that a LEFT SHIFT is Present. Ketones Test strip Ql (U)Ord ered By: Meseret Minor on 05-03-2025 Ketones Ql (U) Negative Negative [facility] L499.0042on 05-03-2025 Trop T High Sen 9 ng/L Normal <=22 [facility] Comment on above: Performed By: #### L 499.0042 ####[facility] [address] [place], [address] L499.0043on 05-03-2025 Trop T High Sen 9 ng/L Normal <=22 [facility] Comment on above: Performed By: #### L 499.0043 #### [facility] [address] [place], [address] L501.4021on 05-03-2025 Trop T High Sen 9 ng/L Normal <=22 [facility] Comment on above: Performed By: #### L 500.2500, L501.4021, L100.0100 #### [facility] [address] [place], [address] L509.6002on 05-03-2025 CORTISOL 7.33 ug/dL Normal 2.68-10.50 [facility] Comment on above: Performed By: #### L 500.2500, L501.4021, L100.0100 #### [facility] [address] [place], [address] MCV (mean corpuscular volume ) determinationOrdered By: Allan Jc on 05-03-2025 MCV (RBC) [Entitic vol] 81.2 fL 80-[address] [facility] Mean corpuscular hemoglobin (MCH) determinationOrdered By: Allan Jc on 05-03-2025 MCH (RBC) [Entitic mass] 29.2 pg 27.0-32.0 [facility] Mean corpuscular hemoglobin concentration (MCHC) determinationOrdered By: Allan Jc on 05-03-2025 MCHC (RBC) [Mass/Vol] 36.0 g/dL 32-36 [facility] Mean platelet volume determi nationOrdered By: Allan Jc on 05-03-2025 Platelet mean volume (Bld) [Entitic vol] 9.0 fL 6.2-12.0 [facility] Microscopic analysis of urin e for red blood cells (RBC)Ordered By: Meseret Minor on 05-03-2025 Microscopic analysis of urine for red blood cells (RBC) 0 SEEN /hpf 0-5 [facility] Monocyte percentageOrdered B y: Allan cJ on 05-03-2025 Monocytes/100 WBC (Bld) 6.7 % 0-[address] [facility] Mucus LM Ql (Urine sed)Order ed By: Meseret Minor on 05-03-2025 Mucus Ql (Urine sed) 0 SEEN /hpf [facility] Neutrophil percentageOrdered By: Allan Jc on 05-03-2025 Neutrophils/100 WBC (Bld) 76.5 % High 47-70 [facility] Nitrite Test strip Ql (U)Ord ered By: Meseret Minor on 05-03-2025 Nitrite Ql (U) Negative Negative [facility] No Panel InformationOrdered By: Meseret Minor on 05-03-2025 Urine Buprenorphine Qualitative Negative < 200 ng/mL [facility] Urine Oxycodone Screen Negative < 100 ng/mL [facility] Nucleated red blood cell per centageOrdered By: Allan Jc on 05-03-2025 Nucleated RBC/100 WBC (Bld) [Ratio] 0 % 0-5 [facility] Osmolality urOrdered By: Magalie Minor on 05-03-2025 Osmolality (U) [Osmolality] 181 mOsm/KG >50 [facility] Comment on above: Normal Urine Referen ce Ranges Random: 50 - 1200 mOsm/kg H20 depending on fluid intake Random: >850 mOsm/kg after 12 hour fluid restriction 24 hour: ~300 - 900 mOsm/kg H2O Osmolality, Serumon 05-03-20 25 OSMOLALITY,SER 253 mOsm/KG Low 275-295 [facility] Comment on above: Performed By: #### L 500.2500, L501.4021, L100.0100 #### [facility] [address] [place] [address], [id number] Platelet countOrdered By: Osiel Jc on 05-03-2025 Platelets (Bld) [#/Vol] 313 10*3/uL 150-450 [facility] Potassium measurement (mass/ volume)Ordered By: Allan Jc on 05-03-2025 Potassium (Unsp spec) [Mass/Vol] 4.5 mmol/L 3.3-5.1 [facility] Protein Test strip Ql (U)Ord ered By: Meseret Minor on 05-03-2025 Protein Ql (U) 15 mg/dl High Negative [facility] Quantitative urine opiates m easurementOrdered By: Meseret Minor on 05-03-2025 Opiates Ql (U) Negative < 300 ng/mL [facility] RBC Auto (Bld) [#/Vol]Ordere d By: Allan Jc on 05-03-2025 RBC (Bld) [#/Vol] 5.06 10*6/uL 4.6-6.2 [facility] Screening urine fentanyl cem surementOrdered By: Meseret Minor on 05-03-2025 fentaNYL Screen Ql (U) Negative [facility] Serum creatinine measurement (mass/volume)Ordered By: Allan Jc on 05-03-2025 Creatinine [Mass/Vol] 0.74 mg/dL 0.70-1.20 [facility] Serum glucose measurement (m ass/volume)Ordered By: Allan Jc on 05-03-2025 Glucose [Mass/Vol] 113 mg/dL High 70-99 [facility] Serum or plasma calcium pepe urement (mass/volume)Ordered By: Allan Jc on 05-03-2025 Calcium [Mass/Vol] 9.1 mg/dL 7.6-11.0 [facility] Serum or plasma cortisol cem surement (mass/volume)Ordered By: Meseret Minor on 05-03-2025 Cortisol [Mass/Vol] 7.33 ug/dL 2.68-10.50 [facility] Serum or plasma urea nitroge n measurement (mass/volume)Ordered By: Allan Jc on 05-03-2025 Urea nitrogen [Mass/Vol] 5 mg/dL 4-19 [facility] Serum or plasma uric acid me asurement (mass/volume)Ordered By: Meseret Minor on 05-03-2025 Urate [Mass/Vol] 3.1 mg/dL Low 3.5-7.2 [facility] Comment on above: The drugs N-Acetylcy steine and Metamizole may falsely depress this assay. Sodium levelOrdered By: Michael Jc on 05-03-2025 Sodium [Moles/Vol] 119 mmol/L Low 133-145 [facility] Comment on above: Critical Result(s) C alled at: 1620 by: SARA Oakley RN. Results read back by same. Squamous epithelial cells de tection in urine sediment by light microscopyOrdered By: Meseret Minor on 05-03-2025 Epithelial cells.squamous LM Ql (Urine sed) 0 SEEN /hpf 0-5 [facility] T4 Free Directon 05-03-2025 T4 FREE DIRECT 1.30 ng/dL Normal 0.76-1.46 [facility] Comment on above: Performed By: #### L 501.62299, L501.9520, L506.0400 ####[facility] [address] [place], [place], [id number] T4 freeOrdered By: Allan silva on 05-03-2025 Free T4 [Mass/Vol] 1.30 ng/dL 0.76-1.46 [facility] Free T4 [Mass/Vol] 1.30 ng/dL 0.76-1.46 [facility] TSH DL <= 0.005 mIU/L QnOrde red By: Meseret Minor on 05-03-2025 TSH Qn 0.950 uIU/mL 0.300-4.200 [facility] TSH DL <= 0.005 mIU/L QnOrde red By: Allan Jc on 05-03-2025 TSH Qn 1.050 uIU/mL 0.300-4.200 [facility] Thyroid Stim Hormone (TSH)on 05-03-2025 TSH 0.950 uIU/mL Normal 0.300-4.200 [facility] Comment on above: Performed By: #### L 500.2500, L501.4021, L100.0100 #### [facility] [facility] [address] [place], [place], [id number] TSH 1.050 uIU/mL Normal 0.300-4.200 [facility] Comment on above: Performed By: #### L 501.40351, L501.9520, L506.0400 ####[facility] [address] [place], [address] Troponin T.cardiac [Mass/vol ume] in Serum or Plasma by High sensitivity methodOrdered By: Allan Jc on 05-03-2025 Troponin T.cardiac High sensitivity method [Mass/Vol] 9 ng/L <22 [facility] Troponin T.cardiac High sensitivity method [Mass/Vol] 9 ng/L <22 [facility] Troponin T.cardiac High sensitivity method [Mass/Vol] 9 ng/L <22 [facility] Uric Acidon 05-03-2025 URIC 3.1 mg/dL Low 3.5-7.2 [facility] Comment on above: Result Comment: The drugs N-Acetylcysteine and Metamizole may falsely depress this assay. Performed By: #### L 500.2500, L501.4021, L100.0100 #### [facility] [address] [place], [address] Urinalysis, Completeon 05-03 BACTERIA 0 SEEN Normal None Seen [facility] Comment on above: Order Comment: CLEAN CATCH Performed By: #### L 500.2500, L501.4021, L100.0100 #### [facility] [address] [place], [address] EPI,SQUAMOUS 0 SEEN Normal 0-5 [facility] Comment on above: Order Comment: CLEAN CATCH Performed By: #### L 500.2500, L501.4021, L100.0100 #### [facility] [address] [place], [address] Mucus Ql (Urine sed) 0 SEEN Normal [facility] Comment on above: Order Comment: CLEAN CATCH Performed By: #### L 500.2500, L501.4021, L100.0100 #### [facility] [address] [place], [address] RBC 0 SEEN Normal 0-5 [facility] Comment on above: Order Comment: CLEAN CATCH Performed By: #### L 500.2500, L501.4021, L100.0100 #### [facility] [address] [place], [address] WBC 0 SEEN Normal 0-5 [facility] Comment on above: Order Comment: CLEAN CATCH Performed By: #### L 500.2500, L501.4021, L100.0100 #### [facility] [address] [place], [address] Urine benzodiazepine levelOr dered By: Meseret Minor on 05-03-2025 Benzodiazepines Ql (U) Negative < 200 ng/mL [facility] Urine clarityOrdered By: Magalie Minor on 05-03-2025 Clarity (U) Clear Clear [facility] Urine cocaine levelOrdered B y: Meseret Minor on 05-03-2025 Cocaine Ql (U) Negative < 300 ng/mL [facility] Urine color determinationOrd ered By: Meseret Minor on 05-03-2025 Color (U) Yellow Yellow [facility] Urine [id number] abinol (THC) measurementOrdered By: Meseret Minor on 05-03-2025 Cannabinoids Screen Ql (U) Negative < 50 ng/mL [facility] Urine glucose detectionOrder ed By: Meseret Minor on 05-03-2025 Glucose Ql (U) Normal mg/dl Normal [facility] Urine leukocyte esterase det ection by dipstickOrdered By: Meseret Minor on 05-03-2025 Leukocyte esterase Test strip Ql (U) Negative Negative [facility] Urine pHOrdered By: Meseret Minor on 05-03-2025 pH (U) 7.0 [pH] 5.0 - 8.0 [facility] Urine phencyclidine (PCP) de tectionOrdered By: Meseret Minor on 05-03-2025 Phencyclidine Ql (U) Negative < 25 ng/mL [facility] Urine sediment bacteria coun t by microscopy (number/high power field)Ordered By: Meseret Minor on 05-03-2025 Bacteria LM.HPF (Urine sed) [#/Area] 0 /[HPF] None Seen [facility] Urine sodium measurement (mo les/volume)Ordered By: Meseret Minor on 05-03-2025 Sodium (U) [Moles/Vol] 33 mmol/L Not Establ. [facility] Urine specific gravity measu rementOrdered By: Meseret Minor on 05-03-2025 Specific gravity (U) [Rel density] 1.010 1.002-1.030 [facility] Urine urobilinogen measureme ntOrdered By: Meseret Minor on 05-03-2025 Urobilinogen Ql (U) Normal mg/dl Normal [facility] White blood cell (WBC) count Ordered By: Allan Jc on 05-03-2025 WBC (Bld) [#/Vol] 11.6 10*3/uL High 4.4-11.0 [facility] White blood cell countOrdere d By: Meseret Minor on 05-03-2025 White blood cell count 0 SEEN /hpf 0-[address] [facility] Absolute lymphocyte countOrd ered By: Suzette Jay on 02-04-2024 Lymphocytes Auto (Unsp spec) [#/Vol] 2.33 10*3/uL 0.83-4.51 [facility] Automated lymphocyte count a s percentage of total leukocytesOrdered By: Suzette Jay on 02-04-2024 Lymphocytes/100 WBC Auto (Unsp spec) 15.5 % 19-41 [facility] Basophil percentageOrdered B y: Suzette Jay on 02-04-2024 Basophils/100 WBC (Bld) 0.8 % 0-[address] [facility] Chloride [Moles/Vol] 102 mmol/L 98-107 [facility] Eosinophils/100 WBC (Bld) 0.1 % 0-5 [facility] Glucose [Mass/Vol] 99 mg/dL 74-106 [facility] Hemoglobin (Bld) [Mass/Vol] 16.0 g/dL 13.0-16.5 [facility] Monocytes/100 WBC (Bld) 10.0 % 0-[address] [facility] Neutrophils (Bld) [#/Vol] 11.0 10*3/uL 2.0-7.7 [facility] Neutrophils/100 WBC (Bld) 73.1 % 47-70 [facility] Potassium [Moles/Vol] 3.8 mmol/L 3.5-5.1 [facility] Sodium [Moles/Vol] 138 mmol/L 136-145 [facility] WBC (Bld) [#/Vol] 15.0 10*3/uL 4.4-11.0 [facility] Determination of erythrocyte mean corpuscular volume (MCV)Ordered By: Suzette Jay on 02-04-2024 MCV (RBC) [Entitic vol] 86.6 fL 80-[address] [facility] Erythrocyte distribution wid th ratioOrdered By: Suzette Jay on 02-04-2024 Erythrocyte distribution width (RBC) [Ratio] 13.0 % 11.6-14.6 [facility] Erythrocyte distribution wid th standard deviationOrdered By: Suzette Jay on 02-04-2024 Erythrocyte distribution width (RBC) [Entitic vol] 40.7 fL 35.1-43.9 [facility] Hematocrit Auto (Bld) [Volum e fraction]Ordered By: Suzette Jay on 02-04-2024 Hematocrit (Bld) [Volume fraction] 46.5 % 40-54 [facility] Immature granulocytes/100 WB C Auto (Bld)Ordered By: Suzette Jay on 02-04-2024 Immature granulocytes/100 WBC (Bld) 0.500 % 0.0-0.9 [facility] Comment on above: IG% - Immature Granu locytes (promyelocytes, myelocytes and metamyelocytes) > 1% indicates that a LEFT SHIFT is Present. Laboratory - Chemistry and C hemistry - challengeOrdered By: Suzette Jay on 02-04-2024 CO2 [Moles/Vol] 25.0 mmol/L 21.0-32.0 [facility] Urea nitrogen/Creatinine [Mass ratio] 10.5 mg/mg 10- [facility] - Drug toxicology Ordered By: Suzette Jay on 02-04-2024 Amphetamines Ql (U) Positive <1000 ng/mL [facility] Benzodiazepines Ql (U) Negative < 200 ng/mL [facility] Cannabinoids Screen Ql (U) Negative < 50 ng/mL [facility] Cocaine Ql (U) Negative < 300 ng/mL [facility] Opiates Ql (U) Negative < 300 ng/mL [facility] - Hematology and Cell countsOrdered By: Suzette Jay on 02-04-2024 MCH (RBC) [Entitic mass] 29.8 pg 27.0-32.0 [facility] MCHC (RBC) [Mass/Vol] 34.4 g/dL 32-36 [facility] Nucleated RBC/100 WBC (Bld) [Ratio] 0 % 0-5 [facility] Platelet mean volume (Bld) [Entitic vol] 10.6 fL 6.2-12.0 [facility] Platelets (Bld) [#/Vol] 298 10*3/uL 150-450 [facility] No Panel InformationOrdered By: Suzette Jay on 02-04-2024 Estimated Creatinine Clearance Calc 122.02 ml/min [facility] Estimated GFR (MDRD) Amer 106 mL/min >60 [facility] Comment on above: GFR Calc Estimated GFR (MDRD) Non-Af Amer 87 mL/min >60 [facility] Comment on above: Non- GFR Calc Ethyl Alcohol Level < 3.0 mg/dL [facility] Comment on above: The serum:whole bloo d ethanol ratio is approximately 1.14and varies slightly with hematocrit. Medical Alcohol reference interval and critical value innon-tolerant individuals; 50 - 100 Impairment 100 Intoxication 100 - 250 Severe Poisoning 250 - 400 Deep/possible fatal coma MDMA (Ecstasy) Screen Positive < 500 ng/mL [facility] Urine Barbiturates Screen Negative < 200 ng/mL [facility] Urine Drug Screen Comment [facility] Comment on above: CONFIRMATORY TESTING FOR [...] Methadone Screen Negative < 300 ng/mL [facility] RBC Auto (Bld) [#/Vol]Ordere d By: Suzette Jay on 02-04-2024 RBC (Bld) [#/Vol] 5.37 10*6/uL 4.6-6.2 [facility] Serum or plasma calcium pepe urement (mass/volume)Ordered By: Suzette Jay on 02-04-2024 Calcium [Mass/Vol] 9.0 mg/dL 8.5-10.1 [facility] Serum or plasma creatinine m easurement (mass/volume)Ordered By: Suzette Jay on 02-04-2024 Creatinine [Mass/Vol] 0.95 mg/dL 0.70-1.30 [facility] Comment on above: The validity of the calculated GFR & GFRAA in patients over 70 years has not been determined. Clinical correlation is essential. Serum or plasma urea nitroge n measurement (mass/volume)Ordered By: Suzette Jay on 02-04-2024 Urea nitrogen [Mass/Vol] 10 mg/dL 7-18 [facility] Thin prep Papanicolaou smear with manual screeningOrdered By: Suzette Jay on 02-04-2024 Thin prep Papanicolaou smear with manual screening 11 5-15 [facility] Urine phencyclidine (PCP) de tectionOrdered By: Suzette Jay on 02-04-2024 Phencyclidine Ql (U) Negative < 25 ng/mL [facility] BNPon 11-15-2022 Natriuretic peptide B (Bld) [Mass/Vol] 109 pg/mL High 0 - 99 [facility] Comment on above: Result Comment: . <1 00 pg/mL - Heart failure unlikely 100-299 pg/mL - Intermediate probability of acute heart . failure exacerbation. Correlate with clinical . context and patient history. >=300 pg/mL - Heart Failure likely. Correlate with clinical . context and patient history. BNP testing is performed using different testing methodology at [facility] than at other [facility]. Direct result comparisons should only be made within the same method. Performed By: #### B NP2 #### [place] [id number] CBC AND DIFFERENTIALon 11-15 % AUTOMATED IMMATURE GRAN 0.4 % Normal 0.0 - 0.9 [facility] Comment on above: Result Comment: Hanna ture Granulocyte Count (IG) includes promyelocytes, myelocytes and metamyelocytes but does not include bands. Percent differential counts (%) should be interpreted in the context of the absolute cell counts (cells/L). Performed By: #### C BCDF #### [address] [address] Basophils (Bld) [#/Vol] 0.02 10*3/uL Normal 0.00 - 0.1 0 [facility] Comment on above: Performed By: #### C BCDF #### [address] [address] Basophils/100 WBC (Bld) 0.1 % Normal 0.0 - 2.0 [facility] Comment on above: Performed By: #### C BCDF #### [address] [address] Lymphocytes (Bld) [#/Vol] 1.94 10*3/uL Normal 1.20 - 4.80 [facility] Comment on above: Performed By: #### C BCDF #### [place] [address] Lymphocytes/100 WBC (Bld) 14.5 % Normal 13.0 - 44.0 [facility] Comment on above: Performed By: #### C BCDF #### [address] [address] Monocytes (Bld) [#/Vol] 1.27 10*3/uL High 0.10 - 1.0 0 [facility] Comment on above: Performed By: #### C BCDF #### [place] [address] Monocytes/100 WBC (Bld) 9.5 % Normal 2.0 - 10.0 [facility] Comment on above: Performed By: #### C BCDF #### [address] [address] Neutrophils (Bld) [#/Vol] 10.08 10*3/uL High 1.20 - 7.70 [facility] Comment on above: Performed By: #### C BCDF #### [address] [address] Neutrophils/100 WBC (Bld) 75.5 % Normal 40.0 - 80.0 [facility] Comment on above: Performed By: #### C BCDF #### [address] [address] Erythrocyte distribution width (RBC) [Ratio] 13.5 % Normal 11.5 - 14.5 [facility] Comment on above: Performed By: #### C BCDF #### [address] [address] Hematocrit (Bld) [Volume fraction] 39.4 % Low 41.0 - 52.0 [facility] Comment on above: Performed By: #### C BCDF #### [address] [address] Hemoglobin (Bld) [Mass/Vol] 13.9 g/dL Normal 13.5 - 17.5 [facility] Comment on above: Performed By: #### C BCDF #### [address] [address] MCHC (RBC) [Mass/Vol] 35.3 g/dL Normal 32.0 - 36.0 [facility] Comment on above: Performed By: #### C BCDF #### [place] [id number] MCV (RBC) [Entitic vol] 84 fL Normal 80 - 100 [facility] Comment on above: Performed By: #### C BCDF #### [address] [address] Platelets (Bld) [#/Vol] 225 10*3/uL Normal 150 - 450 [facility] Comment on above: Performed By: #### C BCDF #### [address] [address] RBC 4.68 x10E12/L Normal 4.50 - 5.90 [facility] Comment on above: Performed By: #### C BCDF #### [address] [address] WBC (Bld) [#/Vol] 13.4 10*3/uL High 4.4 - 11.3 [facility] Comment on above: Performed By: #### C BCDF #### [address] [address] COMPREHENSIVE PANELon 2021 Albumin [Mass/Vol] 3.9 g/dL Normal 3.4 - 5.0 [place] [facility] Comment on above: Performed By: #### C MP #### [address] [address] ALP [Catalytic activity/Vol] 57 U/L Normal 33 - 120 [facility] Comment on above: Performed By: #### C MP #### [address] [address] ALT [Catalytic activity/Vol] 21 U/L Normal 10 - 52 [facility] Comment on above: Result Comment: Suly ents treated with Sulfasalazine may generate falsely decreased results for ALT. Performed By: #### C MP #### [address] [address] Anion gap [Moles/Vol] 14 mmol/L Normal 10 - 20 [facility] Comment on above: Performed By: #### C MP #### [address] [address] AST [Catalytic activity/Vol] 51 U/L High 9 - 39 [facility] Comment on above: Performed By: #### C MP #### [address] [address] Bilirubin [Mass/Vol] 0.9 mg/dL Normal 0.0 - 1.2 [facility] Comment on above: Performed By: #### C MP #### [address] [address] Calcium [Mass/Vol] 8.8 mg/dL Normal 8.6 - 10.3 [place] [facility] Comment on above: Performed By: #### C MP #### [address] [address] Chloride [Moles/Vol] 95 mmol/L Low 98 - 107 [facility] Comment on above: Performed By: #### C MP #### [address] [address] Creatinine [Mass/Vol] 0.93 mg/dL Normal 0.50 - 1.30 [facility] Comment on above: Performed By: #### C MP #### [address] [address] eGFR MALE >90 Normal >90 [facility] Comment on above: Result Comment: CALC ULATIONS OF ESTIMATED GFR ARE PERFORMED USING THE 2020 CKD-EPI STUDY REFIT EQUATION WITHOUT THE RACE VARIABLE FOR THE IDMS-TRACEABLE CREATININE METHODS. https://jasn.asnjournals.org/content//ASN.2020 142909 Performed By: #### C MP #### [address] [address] Glucose [Mass/Vol] 120 mg/dL High 74 - 99 [place] [facility] Comment on above: Performed By: #### C MP #### [address] [address] HCO3 (Bld) [Moles/Vol] 27 mmol/L Normal 21 - 32 [facility] Comment on above: Performed By: #### C MP #### [address] [address] Potassium [Moles/Vol] 3.3 mmol/L Low 3.5 - 5.3 [facility] Comment on above: Performed By: #### C MP #### [address] [address] Protein [Mass/Vol] 7.4 g/dL Normal 6.4 - 8.2 [place] [facility] Comment on above: Performed By: #### C MP #### [address] [address] Sodium [Moles/Vol] 133 mmol/L Low 136 - 145 [place] [facility] Comment on above: Performed By: #### C MP #### [address] [address] Urea nitrogen [Mass/Vol] 8 mg/dL Normal 6 - 23 [facility] Comment on above: Performed By: #### C #### [facility] [address] [place] [address] Covid 19 Resultson 2 SARS-CoV-2 (COVID-19) RNA [...] be contacted by the [facility] to see if any of [...] or Naproxen (Aleve) can also be used. Bpwp-bux-pakrqbf cough and cold medicines can be used according to the instructions on the package. Some ltdt-ubd-sdajrrt medicines also contain acetaminophen. Make sure you [...] water are not available, use alcohol-based hand visual and stock associate. Avoid touching your eyes, nose, and mouth [...] 24 dallin (more content not included)... Normal [facility] EMR ADDONon 11-15-2022 ADDON CONFIRMATION REQUEST REC'D [facility] Comment on above: Performed By: #### C OINP #### [place] [address] INFLUENZA A/B, COVID 2019 PC R,SYMPTOMATICon 11-15-2022 INFLUENZA A, PCR Detected Abnormal Not Detected [facility] Comment on above: Result Comment: Resp iratory virus testing is performed routinely by PCR for Influenza A/B and RSV. Not Detected results do not preclude Influenza A/B or RSV infections since the adequacy of sample collection or low viral burden may impact the clinical sensitivity of this test method. Performed By: #### C OINP #### [place] [address] INFLUENZA B, PCR Not detected Normal Not Detected [facility] Comment on above: Result Comment: Resp iratory virus testing is performed routinely by PCR for Influenza A/B and RSV. Not Detected results do not preclude Influenza A/B or RSV infections since the adequacy of sample collection or low viral burden may impact the clinical sensitivity of this test method. Performed By: #### C OINP #### [place] [address] Lab Specimen Source Nasal, Nasopharyngeal Normal [facility] Comment on above: Performed By: #### C OINP #### [place] [address] SARS-CoV-2 (COVID-19) RNA LEROY+probe Ql (Unsp spec) Not detected Normal Not Detected [facility] Comment on above: Result Comment: . This test has received FDA Emergency Use Authorization (EUA) and has been verified by [facility]. This test is only authorized for the duration of time that circumstances exist to justify the authorization of the emergency use of in vitro diagnostic tests for the detection of SARS-CoV-2 virus and/or diagnosis of COVID-19 infection under section 564(b)(1) of the Act, 21 U.S.C. 360bbb-3(b)(1), unless the authorization is terminated or revoked sooner. [facility] is certified under CLIA-88 as qualified to perform high complexity testing. Testing is performed in the [facility] laboratory located at [address] [place] [address]. SARS-CoV-2/Flu/RSV Multiplex Test: Fact sheet for providers: https://www.fda.gov/media/942049/download Fact sheet for patients: https://www.fda.gov/media/796113/download Performed By: #### C OINP #### [place] [address] PT/INRon 11-15-2022 PT Coag (PPP) [Time] 14.2 s High 9.8 - 13.4 [facility] Comment on above: Performed By: #### P TINR #### [place] [address] PT, INR 1.2 High 0.9 - 1.1 [facility] Comment on above: Performed By: #### P TINR #### [place] [address] Provider Note - ED v3on 10-28 Provider [...] limitation. No acute ST elevation is identified. AR interval is 171 and QTc is 460. [...] 13.9 Anion (more content not included)... Normal [facility] RED CELL MORPHOLOGYon 2021 RBC morphology finding Nom (Bld) SEE COMMENT Normal [facility] Comment on above: Result Comment: NO S IGNIFICANT RBC ABNORMALITIES SEEN ON SMEAR REVIEW. Performed By: #### M ORP2 #### [facility] [address] [place] [address] TROPONIN I, HIGH SENSITIVITY on 11-15-2022 TROPONIN I, HIGH SENSITIVITY Canceled Normal [facility] Comment on above: Order Comment: TEST TROPONIN [...] performed using a different testing methodology at [facility] than at other [facility]. Direct result comparisons should only be made within the same method. Performed By: #### C OINP #### [facility] [address] [place] [address] TROPONIN I, HIGH SENSITIVITY 14 ng/L Normal 0 - 20 [facility] Comment on above: Result Comment: . Less [...] performed using a different testing methodology at [facility] than at other [facility]. Direct result comparisons should only be made within the same method. Performed By: #### T [facility] #### [facility] [address] [place] [address] Triage - EDon 11-15-2022 Triage - ED Quick Triage: The patient and/or guardian verbally acknowledges placement for services into the following (when Urgent Care Service hours are operating):emergency department Chart Review: ARRIVAL INFORMATION Means of Arrival: Ambulatory Mode of Arrival: private vehicle Arrival From: home Accompanied By: self Language: Spoken Language Preferred: Swazi Reading Language Preferred: Swazi CHIEF COMPLAINT LYNNETTE GONG is a Male [...] 14-Nov-2022 22:36 by Dana Aguirre (RN) Normal [facility] UA MICROSCOPICon 11-15-2022 RBC 4 /HPF Normal 0-5 [facility] Comment on above: Performed By: #### U AMIC #### [address] [address] WBC 2 /HPF Normal 0-5 [facility] Comment on above: Performed By: #### U AMIC #### [address] [address] URINALYSISon 11-15-2022 Appearance (U) Clear Normal CLEAR [facility] Comment on above: Performed By: #### C OINP #### [address] [address] Bilirubin Ql (U) Negative Normal NEGATIVE [facility] Comment on above: Performed By: #### C OINP #### [address] [address] Color (U) Yellow Normal STRAW,YELLO [facility] Comment on above: Performed By: #### C OINP #### [address] [address] Glucose Ql (U) Negative Normal NEGATIVE [facility] Comment on above: Performed By: #### C OINP #### [address] [address] Hemoglobin Ql (U) SMALL(1+) Abnormal NEGATIVE [facility] Comment on above: Performed By: #### C OINP #### [address] [address] Ketones Ql (U) 5(Trace) mg/dl Abnormal NEGATIVE [place] [facility] Comment on above: Performed By: #### C OINP #### [address] [address] Leukocyte esterase Test strip Ql (U) Negative Normal NEGATIVE [facility] Comment on above: Performed By: #### C OINP #### [address] [address] Nitrite Ql (U) Negative Normal NEGATIVE [facility] Comment on above: Performed By: #### C OINP #### [address] [address] pH (U) 6.0 [pH] Normal 5.0 - 8.0 [facility] Comment on above: Performed By: #### C OINP #### [address] [address] Protein Ql (U) 100(2+) Abnormal NEGATIVE [facility] Comment on above: Performed By: #### C OINP #### [address] [address] Specific gravity (U) [Rel density] 1.021 Normal 1.005 - 1.035 [facility] Comment on above: Performed By: #### C OINP #### [address] [address] Urobilinogen (U) [Mass/Vol] 4.0 mg/dL High 0.0 - 1.9 [facility] Comment on above: Result Comment: SOME PIGMENTS AND MEDICATIONS MAY CAUSE A FALSE POSITIVE UROBILINOGEN Performed By: #### C OINP #### [address] [address] VENOUS FULL PANELon 12-20-20 22 Anion gap [Moles/Vol] 12 mmol/L Normal 10 - 25 [facility] Comment on above: Performed By: #### V FPA4 #### [address] [address] BASE EXCESS-BLOOD 3.2 mmol/L High -2.0 - 3.0 [facility] n[facility] Comment on above: Performed By: #### V FPA4 #### [address] [address] BICARB, CALCULATED 28.5 mmol/L High 22.0 - 26.0 [facility] Comment on above: Performed By: #### V FPA4 #### [place] [address] CALCIUM,IONIZED 1.13 mmol/L Normal 1.10 - 1.33 [facility] n/[facility] Comment on above: Performed By: #### V FPA4 #### [address] [address] Chloride [Moles/Vol] 94 mmol/L Low 98 - 107 Pierce nson/[facility] Comment on above: Performed By: #### V FPA4 #### [address] [address] Glucose [Mass/Vol] 128 mg/dL High 74 - 99 [place] on/[facility] Comment on above: Performed By: #### V FPA4 #### [address] [address] Hematocrit (Bld) [Volume fraction] 42.0 % Normal 41.0 - 52.0 [facility] Comment on above: Performed By: #### V FPA4 #### [address] [address] Hemoglobin (Bld) [Mass/Vol] 13.9 g/dL Normal 13.5 - 17.5 [facility] Comment on above: Performed By: #### V FPA4 #### [address] [address] Lactate [Moles/Vol] 1.1 mmol/L Normal 0.4 - 2.0 San[place] son/[facility] Comment on above: Performed By: #### V FPA4 #### [address] [address] OXY HGB 51.7 % Normal 45.0 - 75.0 [facility] Comment on above: Performed By: #### V FPA4 #### [address] [address] Oxygen (Bld) [Partial pressure] 31 mm[Hg] Low 35 - 45 [facility] Comment on above: Performed By: #### V FPA4 #### [address] [address] PATIENT TEMPERATURE 37.0 degrees C Normal R [facility] Comment on above: Result Comment: NOTE : PATIENT RESULTS ARE NOT CORRECTED FOR TEMPERATURE. Performed By: #### V FPA4 #### [address] [address] PCO2 45 mmHg Normal 41 - 51 [facility] Comment on above: Performed By: #### V FPA4 #### [address] [address] pH (Bld) 7.41 [pH] Normal 7.33 - 7.43 [facility] Comment on above: Performed By: #### V FPA4 #### [address] [address] Potassium [Moles/Vol] 3.2 mmol/L Low 3.5 - 5.3 Josh inson/[facility] Comment on above: Performed By: #### V FPA4 #### [address] [address] SO2 53 % Normal 45 - 75 [facility] Comment on above: Performed By: #### V FPA4 #### [address] [address] Sodium [Moles/Vol] 131 mmol/L Low 136 - 145 [place] on/[facility] Comment on above: Performed By: #### V FPA4 #### [address] [address] Vital Signs Date Time Vital Sign Value Performing Clinician Adrianne block 09-17-2025 14:05-0400 Body temperature 97.2 [degF] Deborah Crispin BINDERY WORKER-C Work Phone: [facility] 09-17-2025 14:05-0400 Diastolic blood pressure 92 mm[Hg] Deborah Crispin BINDERY WORKER-C Work Phone: [facility] 09-17-2025 14:05-0400 Heart rate 67 /min Deborah Crispin BINDERY WORKER-C Work Phone: [facility] 09-17-2025 14:05-0400 Respiratory rate 16 /min Deborah Crispin BINDERY WORKER-C Work Phone: [facility] 09-17-2025 14:05-0400 SaO2% (BldA) [Mass fraction] 99 % Deborah Crispin BINDERY WORKER-C Work Phone: [facility] 09-17-2025 14:05-0400 Systolic blood pressure 162 mm[Hg] Deborah Crispin BINDERY WORKER-C Work Phone: [facility] 09-17-2025 12:52-0400 Body height 170.18 cm Deborah Crispin BINDERY WORKER-C Work Phone: [facility] 09-17-2025 12:52-0400 Body mass index (BMI) [Ratio] 45.6 kg/m2 Deborah Crispin BINDERY WORKER-C Work Phone: [facility] 09-17-2025 12:52-0400 Body weight 132 kg Deborah Crispin BINDERY WORKER-C Work Phone: [facility] 08-14-2025 09:48-0400 Body height 170.[address] Allan Jc DO Work Phone: 1(018)774-804674 [place] [address] 08-14-2025 09:48-0400 Body temperature 96.1 [degF] Dr. Allan Jc DO Work Phone: 1(651)551-049874 [place] [address] 08-14-2025 09:48-0400 Diastolic blood pressure 71 mm[Hg] Dr. Allan Jc DO Work Phone: 1(940)092-391474 [place] [address] 08-14-2025 09:48-0400 Heart rate 67 /min Dr. Allan Jc DO Work Phone: 3(189)975-942174 [place] [address] 08-14-2025 09:48-0400 Respiratory rate 18 /min Dr. Allan Jc DO Work Phone: 3(671)191-243792 [address] 08-14-2025 09:48-0400 SaO2% (BldA) [Mass fraction] 97 % Dr. Allan Jc DO Work Phone: 8(634)940-194774 [place] [address] 08-14-2025 09:48-0400 Systolic blood pressure 142 mm[Hg] Dr. Allan Jc DO Work Phone: 5(917)887-073374 [place] [address] 08-11-2025 14:40-0400 Body height 170.[address] Allan Jc DO Work Phone: 0(682)034-960474 [place] [address] 08-11-2025 14:40-0400 Body mass index (BMI) [Ratio] 47.6 kg/m2 Dr. Allan Jc DO Work Phone: 0(112)220-447974 [place] [address] 08-11-2025 14:40-0400 Body temperature 98.8 [degF] Dr. Allan Jc DO Work Phone: 7(064)580-569874 [place] [address] 08-11-2025 14:40-0400 Body weight [address] Allan Jc DO Work Phone: 2(036)693-974074 [place] [address] 08-11-2025 14:40-0400 Diastolic blood pressure 87 mm[Hg] Dr. Allan Jc DO Work Phone: 8(492)103-266074 [place] [address] 08-11-2025 14:40-0400 Heart rate 82 /min Dr. Allan Jc DO Work Phone: 7(865)803-122374 [place] [address] 08-11-2025 14:40-0400 Respiratory rate 18 /min Dr. Allan Jc DO Work Phone: 2(189)290-076274 [place] [address] 08-11-2025 14:40-0400 SaO2% (BldA) [Mass fraction] 93 % Dr. Allan Jc DO Work Phone: 5(960)741-533474 [place] [address] 08-11-2025 14:40-0400 Systolic blood pressure 144 mm[Hg] Dr. Allan Jc DO Work Phone: 5(133)318-341942 [place] [address] 07-17-2025 11:52-0400 Body height 170.[address] Allan Jc DO Work Phone: 2(242)086-469742 [place] [address] 07-17-2025 11:52-0400 Body mass index (BMI) [Ratio] 48.6 kg/m2 Dr. Allan Jc DO Work Phone: 7(198)518-180642 [place] [address] 07-17-2025 11:52-0400 Body weight 140.[address] Allan Jc DO Work Phone: 8(951)041-158474 [place] [address] 07-17-2025 11:52-0400 Diastolic blood pressure 83 mm[Hg] Dr. Allan Jc DO Work Phone: 5(765)722-301974 [place] [address] 07-17-2025 11:52-0400 Heart rate 74 /min Dr. Allan Jc DO Work Phone: 3(312)397-037974 [place] [address] 07-17-2025 11:52-0400 Respiratory rate 14 /min Dr. Allan Jc DO Work Phone: 9(343)067-260474 [place] [address] 07-17-2025 11:52-0400 SaO2% (BldA) [Mass fraction] 97 % Dr. Allan Jc DO Work Phone: 6(660)074-817574 [place] [address] 07-17-2025 11:52-0400 Systolic blood pressure 143 mm[Hg] Dr. Allan Jc DO Work Phone: 3(850)935-737474 [place] [address] 06-23-2025 17:47-0400 Body temperature 98.1 [degF] Dr. Allan Jc DO Work Phone: 6(912)182-671174 [place] [address] 06-23-2025 17:47-0400 Diastolic blood pressure 80 mm[Hg] Dr. Allan Jc DO Work Phone: 8(838)598-782874 [place] [address] 06-23-2025 17:47-0400 Heart rate 79 /min Dr. Allan Jc DO Work Phone: 2(153)074-293342 [place] [address] 06-23-2025 17:47-0400 Respiratory rate 20 /min Dr. Allan Jc DO Work Phone: 9(919)594-067742 [place] [address] 06-23-2025 17:47-0400 SaO2% (BldA) [Mass fraction] 98 % Dr. Allan Jc DO Work Phone: 3(130)306-970374 [place] [address] 06-23-2025 17:47-0400 Systolic blood pressure 131 mm[Hg] Dr. Allan Jc DO Work Phone: 2(349)751-950674 [place] [address] 06-23-2025 15:12-0400 Body height 170.[address] Allan Jc DO Work Phone: 6(506)023-593574 [place] [address] 06-23-2025 15:12-0400 Body mass index (BMI) [Ratio] 48.7 kg/m2 Dr. Allan Jc DO Work Phone: 8(568)676-690474 [place] [address] 06-23-2025 15:12-0400 Body weight 141.[address] Allan Jc DO Work Phone: 4(557)768-579974 [place] [address] 06-10-2025 13:03-0400 Body height 170.[address] Allan Jc DO Work Phone: 5(150)132-757274 [place] [address] 06-10-2025 13:03-0400 Body mass index (BMI) [Ratio] 50.6 kg/m2 Dr. Allan Jc DO Work Phone: 4(504)929-609474 [place] [address] 06-10-2025 13:03-0400 Body temperature 98.4 [degF] Dr. Allan Jc DO Work Phone: 7(802)006-965474 [place] [address] 06-10-2025 13:03-0400 Body weight 146.[address] Allan Jc DO Work Phone: 4(435)539-359574 [place] [address] 06-10-2025 13:03-0400 Diastolic blood pressure 71 mm[Hg] Dr. Allan Jc DO Work Phone: 4(870)979-180874 [place] [address] 06-10-2025 13:03-0400 Heart rate 75 /min Dr. Allan Jc DO Work Phone: 2(428)971-511042 [place] [address] 06-10-2025 13:03-0400 Respiratory rate 18 /min Dr. Allan Jc DO Work Phone: 3(200)794-266942 [place] [address] 06-10-2025 13:03-0400 SaO2% (BldA) [Mass fraction] 96 % Dr. Allan Jc DO Work Phone: 8(000)468-232342 [place] [address] 06-10-2025 13:03-0400 Systolic blood pressure 110 mm[Hg] Dr. Allan Jc DO Work Phone: 7(369)279-304442 [place] [address] 05-12-2025 13:30-0400 Body height 170.[address] Allan Jc DO Work Phone: 6(410)739-576742 [place] [address] 05-12-2025 13:30-0400 Body mass index (BMI) [Ratio] 51.9 kg/m2 Dr. Allan Jc DO Work Phone: 6(457)831-007974 [place] [address] 05-12-2025 13:30-0400 Body temperature 97.2 [degF] Dr. Allan Jc DO Work Phone: 1(090)572-413974 [place] [address] 05-12-2025 13:30-0400 Body weight 150.[address] Allan Jc DO Work Phone: 7(258)953-458474 [place] [address] 05-12-2025 13:30-0400 Diastolic blood pressure 82 mm[Hg] Dr. Allan Jc DO Work Phone: 6(454)926-341974 [place] [address] 05-12-2025 13:30-0400 Heart rate 84 /min Dr. Allan Jc DO Work Phone: 8(844)289-779974 [place] [address] 05-12-2025 13:30-0400 Respiratory rate 18 /min Dr. Allan Jc DO Work Phone: 4(003)608-324974 [place] [address] 05-12-2025 13:30-0400 SaO2% (BldA) [Mass fraction] 97 % Dr. Allan Jc DO Work Phone: 6(539)797-784574 [place] [address] 05-12-2025 13:30-0400 Systolic blood pressure 148 mm[Hg] Dr. Allan Jc DO Work Phone: 9(929)475-425374 [place] [address] 05-05-2025 11:40-0400 Diastolic blood pressure 106 mm[Hg] Dr. Allan Jc DO Work Phone: 6(883)027-227342 [place] [address] 05-05-2025 11:40-0400 Heart rate 71 /min Dr. Allan Jc DO Work Phone: 8(565)775-824974 [place] [address] 05-05-2025 11:40-0400 Respiratory rate 18 /min Dr. Allan Jc DO Work Phone: 9(475)594-369474 [place] [address] 05-05-2025 11:40-0400 SaO2% (BldA) [Mass fraction] 96 % Dr. Allan Jc DO Work Phone: 6(006)403-089074 [place] [address] 05-05-2025 11:40-0400 Systolic blood pressure 140 mm[Hg] Dr. Allan Jc DO Work Phone: 6(996)544-045374 [place] [address] 05-05-2025 10:19-0400 SaO2% (BldA) [Mass fraction] 99 % Dr. Allan Jc DO Work Phone: 4(390)173-436074 [place] [address] 05-05-2025 08:45-0400 Body temperature 97.7 [degF] Dr. Allan Jc DO Work Phone: 4(042)914-663974 [place] [address] 05-05-2025 08:45-0400 Diastolic blood pressure 88 mm[Hg] Dr. Allan Jc DO Work Phone: 4(110)736-273074 [place] [address] 05-05-2025 08:45-0400 Heart rate 64 /min Dr. Allan Jc DO Work Phone: 0(053)576-012174 [place] [address] 05-05-2025 08:45-0400 Respiratory rate 20 /min Dr. Allan Jc DO Work Phone: 8(711)704-233342 [place] [address] 05-05-2025 08:45-0400 Systolic blood pressure 149 mm[Hg] Dr. Allan Jc DO Work Phone: 6(059)754-578474 [place] [address] 05-05-2025 03:46-0400 Body mass index (BMI) [Ratio] 47.7 kg/m2 Dr. Allan Jc DO Work Phone: 1(004)442-391874 [place] [address] 05-05-2025 03:46-0400 Body weight 146.[address] Allan Jc DO Work Phone: 4(326)633-879974 [place] [address] 05-03-2025 19:20-0400 Body height 175.[address] Allan Jc DO Work Phone: 0(671)130-216074 [place] [address] 05-03-2025 18:11-0400 Body temperature 98.1 [degF] Dr. Allan Jc DO Work Phone: 2(420)525-368374 [place] [address] 05-03-2025 18:11-0400 Diastolic blood pressure 89 mm[Hg] Dr. Allan Jc DO Work Phone: 0(326)604-064574 [place] [address] 05-03-2025 18:11-0400 Heart rate 73 /min Dr. Allan Jc DO Work Phone: 8(253)240-992074 [place] [address] 05-03-2025 18:11-0400 Respiratory rate 16 /min Dr. Allan Jc DO Work Phone: 7(191)272-916674 [place] [address] 05-03-2025 18:11-0400 SaO2% (BldA) [Mass fraction] 98 % Dr. Allan Jc DO Work Phone: 1(477)698-555674 [place] [address] 05-03-2025 18:11-0400 Systolic blood pressure 159 mm[Hg] Dr. Allan Jc DO Work Phone: 3(790)690-751174 [place] [address] 05-03-2025 15:37-0400 Body height 175.[address] Allan Jc DO Work Phone: [facility] 05-03-2025 15:37-0400 Body mass index (BMI) [Ratio] 48.4 kg/m2 Dr. Allan Jc DO Work Phone: [facility] 05-03-2025 15:37-0400 Body weight 148.[address] Allan Jc DO Work Phone: [facility] 02-04-2024 17:39-0400 Body height 175.26 cm [facility] 02-04-2024 17:39-0400 Body mass index (BMI) [Ratio] 44.4 kg/m2 [facility] 02-04-2024 17:39-0400 Body temperature 96.3 [degF] [facility] 02-04-2024 17:39-0400 Body weight 136.57 kg [facility] 02-04-2024 17:39-0400 Diastolic blood pressure 90 mm[Hg] [facility] 02-04-2024 17:39-0400 Heart rate 100 /min [facility] 02-04-2024 17:39-0400 Respiratory rate 22 /min [facility] 02-04-2024 17:39-0400 SaO2% (BldA) [Mass fraction] 100 % [facility] 02-04-2024 17:39-0400 Systolic blood pressure 149 mm[Hg] [facility] 09-20-2022 12:45-0400 Body height 177.8 cm [facility] Work Phone: 09-20-2022 12:45-0400 Body mass index (BMI) [Ratio] 44.4 kg/m2 [facility] Work Phone: 09-20-2022 12:45-0400 Body temperature 97.7 [degF] [facility] Work Phone: 09-20-2022 12:45-0400 Body weight 140.61 kg [facility] Work Phone: 09-20-2022 12:45-0400 Diastolic blood pressure 80 mm[Hg] [facility] Work Phone: 09-20-2022 12:45-0400 Heart rate 98 /min [facility] Work Phone: 09-20-2022 12:45-0400 Respiratory rate 18 /min [facility] Work Phone: 09-20-2022 12:45-0400 SaO2% (BldA) [Mass fraction] 96 % [facility] Work Phone: 09-20-2022 12:45-0400 Systolic blood pressure 160 mm[Hg] [facility] Work Phone: Encounters Encounter Date Encounter Type Care Provider Facility Start: 09-23-2025 End: 09-23-2025 ambulatory [facility] Facility:[facility] Start: 09-23-2025 End: 09-23-2025 ambulatory [facility] Facility:[facility] Start: 09-17-2025 Non-patient / Non-visit Tito Morris DO -[facility] Start: 09-17-2025 End: 09-17-2025 Admission to same day surgery center Tito Morris DO -Endoscopy Work Phone: Start: 09-17-2025 End: 09-17-2025 ambulatory [facility] Facility:[facility] Start: 08-26-2025 End: 08-26-2025 Patient encounter procedure Debbie SCHWARTZ -[facility] Work Phone: Start: 08-26-2025 End: 08-26-[address] Allan Jc DO Work Phone: -[facility] Start: 08-14-2025 End: 08-14-2025 Patient encounter procedure Elizabet BLOCK -[facility] Work Phone: Start: 08-14-2025 End: 08-14-[address] Allan Jc DO Work Phone: -[facility] Start: 08-11-2025 End: 08-11-2025 Patient encounter procedure Elizabet BLOCK -[facility] Work Phone: Start: 08-11-2025 End: 08-11-[address] Allan Jc DO Work Phone: -[facility] Start: 08-04-2025 End: 08-04-[address] Allan Jc DO Work Phone: -[facility] Start: 08-04-2025 End: 08-04-2025 Patient encounter procedure Deborah BLOCK -[facility] Start: 08-04-2025 End: 08-04-2025 ambulatory Deborah Roa Facility:[facility] Start: 07-17-2025 End: 07-17-[address] Allan Jc DO Work Phone: -Laboratory Start: 07-17-2025 End: 07-17-2025 Patient encounter procedure Elizabet BLOCK -Laboratory Work Phone: Start: 07-17-2025 End: 07-17-2025 Patient encounter procedure Elizabet BLOCK -[facility] Work Phone: Start: 07-17-2025 End: 07-17-[address] Allan Jc DO Work Phone: -[facility] Start: 07-17-2025 End: 07-17-2025 ambulatory Elizabet Diop Facility:[facility] Start: 06-23-2025 End: 06-23-2025 Emergency department patient visit Dr. Allan Jc DO Work Phone: -Emergency Department Work Phone: Start: 06-18-2025 ambulatory [facility] y:[facility] Start: 06-17-2025 End: 06-17-[address] Allan Jc DO Work Phone: -[facility] Start: 06-17-2025 End: 06-17-2025 Patient encounter procedure Deborah Roa BINDERY WORKER-C -[facility] Work Phone: Start: 06-17-2025 End: 06-17-2025 ambulatory Deborah Roa Facility:[facility] Start: 06-10-2025 End: 06-10-2025 Patient encounter procedure Anay HiJorgito BINDERY WORKER-C -[facility] Work Phone: Start: 06-10-2025 End: 06-10-[address] Allan Jc DO Work Phone: -[facility] Start: 06-10-2025 End: 06-10-2025 ambulatory [facility] Facility:[facility] Start: 06-03-2025 ambulatory [facility] Facility:[facility] Start: 05-29-2025 End: 05-29-[address] Allan Jc DO Work Phone: -[facility] Start: 05-29-2025 End: 05-29-2025 Patient encounter procedure Deborah Roa BINDERY WORKER-C -[facility] Start: 05-29-2025 End: 05-29-2025 ambulatory Deborah Crispin Facility:[facility] Start: 05-20-2025 End: 05-20-[address] Allan Jc DO Work Phone: -[facility] Start: 05-20-2025 End: 05-20-2025 Patient encounter procedure Deborah Roa BINDERY WORKER-C -[facility] Start: 05-20-2025 End: 05-20-2025 ambulatory [facility] Facility:[facility] Start: 05-12-2025 End: 05-12-[address] Betty Steel MD -[facility] Work Phone: Start: 05-12-2025 End: 05-12-[address] Allan Jc DO Work Phone: [facility] Work Phone: Start: 05-05-2025 Non-patient / Non-visit Dr. Kevin Singh DO [facility] Work Phone: Start: 05-04-2025 Non-patient / Non-visit Dr. Kevin Singh DO [facility] Work Phone: Start: 05-03-2025 Non-patient / Non-visit Dr. Meseret Minor DO [facility] Work Phone: Start: 05-03-2025 ambulatory Deborah Roa Facility:[facility] Start: 05-03-2025 End: 05-05-2025 Evaluation and management of inpatient Dr. Meseret Minor DO -[facility] Work Phone: Start: 02-04-2024 End: 02-04-2024 [facility] Start: 11-15-2022 End: 11-15-2022 Emergency department patient visit Dr. OSIRIS BARRETT Facility:[id number] Start: 09-20-2022 End: 09-20-2022 [facility] Start: 03-09-2022 ambulatory Tony Altman [...] Start: 09-23-2025 End: 09-23-2025 Patient encounter procedure -[facility] Work Phone: Start: 09-17-2025 Endoscopy upper small intestine w/biopsy SMALL BOWEL ENDOSCOPY/BIOPSY [facility] Start: 09-17-2025 Patient discharge [facility] Start: 07-17-2025 Basic metabolic 2008 panel with ionized calcium - Serum or Plasma [facility] Start: 07-17-2025 Cortisol [Mass/volume] in Serum or Plasma [facility] Start: 07-17-2025 Thyroid stimulating hormone measurement [facility] Start: 06-23-2025 [facility] Start: 05-05-2025 Patient discharge [facility] Start: 05-03-2025 Following clinical pathway protocol [facility] Start: 05-03-2025 Assessment of risk of venous thromboembolism [facility] Start: 05-03-2025 Inhalation therapy procedure [facility] Start: 05-03-2025 Insertion of catheter into peripheral vein [facility] Start: 05-03-2025 Measuring intake and output [facility] Start: 05-03-2025 Oxygen therapy [facility] Start: 05-03-2025 Providing care according to standard [facility] Start: 05-03-2025 Referral to service [facility] Start: 05-03-2025 [facility] Start: 05-03-2025 Hospital admission, emergency, from emergency room, medical nature [facility] Start: 05-03-2025 Urinalysis complete panel - Urine [facility] Start: 05-03-2025 Verification routine [facility] Start: 05-03-2025 Admission procedure [facility] Start: 05-03-2025 Osmolality of Urine [facility] Start: 05-03-2025 Sodium [Moles/volume] in Urine [facility] Start: 05-03-2025 Osmolality measurement, serum [facility] Start: 05-03-2025 Thyroid stimulating hormone measurement [facility] Start: 05-03-2025 [facility] Start: 09-20-2022 Electrocardiographic procedure [facility] Work Phone: Amphetamines [Presen ce] in Urine by Screen method >1000 ng/mL [facility] Anion gap in Serum or Plasma [facility] Anion gap in Serum or Plasma [facility] Anion gap in Serum or Plasma [facility] Anion gap in Serum or Plasma [facility] Benzodiazepine measu rement, urine [facility] BUN/Creatinine ratio [facility] BUN/Creatinine ratio [facility] BUN/Creatinine ratio [facility] BUN/Creatinine ratio [facility] Calcium [Mass/volume ] in Serum or Plasma [facility] Calcium [Mass/volume ] in Serum or Plasma [facility] Calcium [Mass/volume ] in Serum or Plasma [facility] Calcium [Mass/volume ] in Serum or Plasma [facility] Carbon dioxide, tota l [Moles/volume] in Central venous blood [facility] Carbon dioxide, tota l [Moles/volume] in Central venous blood [facility] Carbon dioxide, tota l [Moles/volume] in Central venous blood [facility] Carbon dioxide, tota l [Moles/volume] in Central venous blood [facility] CBC W Auto Different ial panel - Blood [facility] Cocaine measurement, urine [facility] Comprehensive metabo lic 2000 panel - Serum or Plasma [facility] Cortisol [Mass/volum e] in Serum or Plasma [facility] Creatinine [Mass/vol ume] in Serum or Plasma [facility] Creatinine [Mass/vol ume] in Serum or Plasma [facility] Creatinine [Mass/vol ume] in Serum or Plasma [facility] Creatinine [Mass/vol ume] in Serum or Plasma [facility] CT Chest [facility] [id number] [Presence] in Urine by Screen method [facility] Glucose [Mass/volume ] in Serum or Plasma [facility] Glucose [Mass/volume ] in Serum or Plasma [facility] Glucose [Mass/volume ] in Serum or Plasma [facility] Glucose [Mass/volume ] in Serum or Plasma [facility] Measurement of renal function [facility] Measurement of renal function [facility] Measurement of renal function [facility] Measurement of renal function [facility] Methadone measurement, urine [facility] Patient Education [facility] Work Phone: Patient referral [facility] Work Phone: Phencyclidine [Prese nce] in Urine [facility] Potassium measurement [facility] Potassium measurement [facility] Potassium measurement [facility] Potassium measurement [facility] Serum chloride measurement [facility] Serum chloride measurement [facility] Serum chloride measurement [facility] Serum chloride measurement [facility] Sodium measurement [facility] Sodium measurement [facility] Sodium measurement [facility] Sodium measurement [facility] Troponin T.cardiac [Mass/volume] in Serum or Plasma by High sensitivity method [facility] Urate [Mass/volume] in Serum or Plasma [facility] Urea nitrogen [Mass/ volume] in Serum or Plasma [facility] Urea nitrogen [Mass/ volume] in Serum or Plasma [facility] Urea nitrogen [Mass/ volume] in Serum or Plasma [facility] Urea nitrogen [Mass/ volume] in Serum or Plasma [facility] Urine cannabinoid measurement [facility] Urine opiate measurement [facility] Payers Date Payer Category Payer Medicaid [id number] 8a [id number] 2025 Self-pay [id number] 2025 Medicare [id number] 241 [id number] 1970 [facility] [id number] 2.16.8 40.1.331862.3.579.2.1069 1970 Unknown [id number] 2.16.8 40.1.985802.3.579.2.1069 Unknown [id number] Unknown [id number] 2.16.8 40.1.820375.3.579.2.462 Unknown [id number] 2.16.8 40.1.227062.3.579.2.462 Unknown [id number] 2.16.8 40.1.072985.3.579.2.462 Unknown [id number] 2.16.8 40.1.291606.3.579.2.462 Unknown [id number] 2.16.8 40.1.766830.3.579.2.462 Unknown [id number] 2.16.8 40.1.706837.3.579.2.462 Unknown [id number] 2.16.8 40.1.693419.3.579.2.462 Unknown [id number] 2.16.8 40.1.257724.3.579.2.462 Unknown [id number] 2.16.8 40.1.854842.3.579.2.462 Unknown [id number] 2.16.8 40.1.435030.3.579.2.462 Unknown [id number] 2.16.8 40.1.275819.3.579.2.462 Unknown [id number] 2.16.8 40.1.121114.3.579.2.462 Unknown [id number] 2.16.8 40.1.796784.3.579.2.462 Unknown [id number] 2.16.8 40.1.860650.3.579.2.462 Unknown [id number] 2.16.8 40.1.042306.3.579.2.462 Unknown [id number] 2.16.8 40.1.873970.3.579.2.462 Unknown [id number] 2.16.8 40.1.711430.3.579.2.462 Unknown [id number] 2.16.8 40.1.157138.3.579.2.462 Unknown [id number] 2.16.8 40.1.333566.3.579.2.462 Unknown [id number] 2.16.8 40.1.598982.3.579.2.462 Unknown [id number] 2.16.8 40.1.683490.3.579.2.462 Unknown [id number] 2.16.8 40.1.131542.3.579.2.462 Unknown [id number] 2.16.8 40.1.063890.3.579.2.462 Social History Date Type Detail Facility Start: 09-20-2022 End: 02-04-2024 Tobacco smoking status ORIS Unknown if ever smoked [facility] Start: 1970 Sex Assigned At Male [facility] Start: 05-03-2025 End: 09-15-2025 Tobacco smoking status NHIS Smokes tobacco daily (finding) [facility] Sex Male [facility] Goals Date Patient Goal Desired Activity /State Functional Status Date Assessment Result Facility 05-05-2025 Functional status Ambulates;Up ad michael [facility] Work Phone: Mental Status Date Assessment Result Facility 09-17-2025 Cognitive function Touch/Shaking [facility] Work Phone: 08-14-2025 Cognitive function Awake [facility] Work Phone: 05-05-2025 Cognitive function Voice/Name [facility] Work Phone: 05-03-2025 Cognitive function Level Of Cons ciousness Awake;Alert;Appropriate;Follow s Commands [facility] Work Phone: 02-04-2024 Cognitive function Level Of Cons ciousness Awake;Alert [facility] Work Phone: Clinical Notes 11-16-2022 to 09-17-2025 Note Date & Type Note Facility 09-17-2025 Consult note Note Date/Time September 17, 2025 3:50pm [facility] Medical Records Department [address] [place] [address] Anesthesia Postop Eval II 09/17/25 142 MR#: [id number] Acct: [id number] Name: LYNNETTE GONG Rep #:[id number] : 1970 55 From: Mina Calle MD PCP: UMAIR Taveras Status:REG SDC Y Race: C Location: [facility]- Anesthesia Postop Eval I Sum Postop [...] Mina Carrignnorris Signature: Date CC: ~ Signed [facility] Work Phone: 1(966) 565-873310-22-2025 Consult note Author Jean Jc [facility] Note Date/Time September 17, 2025 3 :00pm [facility] Medical Records Department [address] [place] [address] Anesthesia Postop Eval I 09/17/25 1359 MR#: [id number] Acct: [id number] Name: LYNNETTE GONG Rep #:[id number] : 1970 55 From: Jean Jc PCP: TONO TaverasC Status:REG SDC Y Race: C Location: [place] [address] Anesthesia: Postop Eval I Current Vital Signs [...] Jean Mendoza Signature: Date CC: ~ Signed [facility] Work Phone: 1(699) 465-682310-22-2025 Consult note Author Mina Calle [facility] Note Date/Time September 17, 2025 2 :31pm [facility] Medical Records Department [address] [place] [address] Pre-Anesthesia Evaluation 09/17/25 1330 MR#: [id number] Acct: [id number] Name: LYNNETTE GONG Rep #:[id number] : 1970 55 From: Mina Calle MD PCP: UMAIR Taveras Status:REG SDC Y Race: C Location: [place] [address] ASA Classification* ASA Classification ASA Classification: 3 [...] Procedure(s): EGD Anesthesia History Anesthesia History - 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: Anesthesia History - 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 Hx Hospitalization Yes: LOW SODIUM 06/202509/15/25 13:45 [...] take am of surgery PONV PONV - 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: PONV - 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 Female No 09/15/25 13:45 HX of Motion [...] 09/17/25 12:52 Respiratory Assessment Respiratory Assessment - 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: Respiratory Tract Infection Hx - 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 Hx Respiratory Tract Infection No 09/15/25 13:45 STOP Sleep Apnea STOP Sleep Apnea - 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: STOP Sleep Apnea - 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 Hx Hypertension Yes: STILL WORKING ON, 09/15/25 [...] Tobacco Use History Tobacco Use History - 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: Tobacco Use History - 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 Tobacco Use Smoking Status Current every day smoker 09/15/25 13:45 Hx Tobacco Use Yes 09/15/25 13:45 Years Smoking Packs Smoked per Day Smoking Cessation Date was within the last 15 years Hx Smoking Cessation Date Hx Smoking Cessation Counseling Hematologic Medial History 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 Hx of Blood Transfusion No 09/15/25 13:45 [...] confused, unrespo /Reproduction History /Reproductive History - 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: /Reproductive Hx- 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 Hx Now No 09/15/25 13:45 Gestational Age [...] MD Cosigner Signature: Date CC: ~ Signed [facility] Work Phone: 1(190) 167-923710-22-2025 Consult note [facility] Medical Records Department [address] [place] [address] Anesthesia Postop Eval II 09/17/25 1422 MR#: [id number] Acct: [id number] Name: LYNNETTE GONG Rep #:[id number] : 1970 55 From: Mina Calle MD PCP: UMAIR Taveras Status:REG SDC Y Race: C Location: [place] [address]- Anesthesia Postop Eval I Sum Postop Eval [...] MD Cosign Signature: Date CC: ~ Signed [facility]10-22-2025 History and physical note Author Tito Friend [facility] Note Date/Time September 17, 2025 1 :50pm [facility] Medical Records Department [address] [place] [address] History & Physical Exam 09/17/25 1248 MR#: [id number] Acct: [id number] Name: LYNNETTE GONG Rep #:[id number] : 1970 55 From: Tito Friend DO PCP: UMAIR Taveras Status:[facility] Location: [place] [address] HPI - General General Date of Admission: [...] is a link to this NIH article https://pmc.ncbi.nlm.nih.gov/articles/EQB6241644/ OV 08/26/25 - Continues to have daily nausea and dry heaving but no vomiting -Taking Zofran 10 times per day -Continues with kratom -Taking Excedrin intermittently ] [facility] Medical History Emphysema, unspecified Wears glasses Loose, [...] CC: UMAIR Roa; Tito Morris DO~ Signed [facility] Work Phone: 1(106) 902-132710-22-2025 Procedure note [facility] Medical Records Department [address] [place] [address] EGD Report MR#: [id number] Acct: [id number] Name: LYNNETTE GONG Rep #:[id number] : 1970 55 From: Tito Morris DO PCP: UMAIR Taveras Status:REG [facility] Patient Name: Lynnette Gong Procedure Date: 09/17/2025 [...] Hemoglobin A1c Procedure Code(s): --- Professional --- 70250, Small intestinal endoscopy, enteroscopy beyond second portion of duodenum, not including ileum; with biopsy, single or multiple CPT copyright 2021 [employer]. All rights reserved. The codes documented in this report are preliminary and upon medical surgery nurse review may be revised to meet current compliance requirements. Tito Morris DO 09/17/2025 2:06:55 PM This report has been signed electronically. Number of Addenda: 0 Note Initiated On: 09/17/2025 1:32 PM 09/17/25 1407 Date _ Tito Ziegler Signature: Date (if indicated) CC: UMAIR Roa; Tito Morris DO ~ Date Dictated: 09/17/25 1332 Date Transcribed: Hot Saw Helper: RF Signed [facility]10-22-2025 Procedure note [facility] Medical Records Department [address] [place] [address] Provation Physician Letter MR#: [id number] Acct: [id number] Name: LYNNETTE GONG Rep #:[id number] : 1970 55 From: Tito Morris DO PCP: UMAIR Taveras Status:REG [facility] 09/17/2025 Umair Taveras Re : Upper GI [...] Tito Munizignnorris Signature: Date (if indicated) CC: BINDERY WORKERLaurel Roa; DO Michael Trent Date Dictated: 09/17/25 1332 Date Transcribed: Hot Saw Helper: RF Signed [facility]10-22-2025 Consult note [facility] Medical Records Department [address] [place] [address] Anesthesia Postop Eval I 09/17/25 1359 MR#: [id number] Acct: [id number] Name: BELTRANLYNNETTE Prema Rep #:[id number] : 1970 55 From: Jean Jc PCP: UMAIR Taveras Status:REG SDC Y Race: C Location: [place] [address] Anesthesia: Postop Eval I Current Vital Signs [...] Jean Mendoza Signature: Date CC: ~ Signed [facility]10-22-2025 Consult note [facility] Medical Records Department [address] [place] [address] Pre-Anesthesia Evaluation 09/17/25 1330 MR#: [id number] Acct: [id number] Name: LYNNETTE GONG Rep #:[id number] : 1970 55 From: Mina Calle MD PCP: UMAIR Taveras Status:REG SDC Y Race: C Location: [place] [address] ASA Classification* ASA Classification ASA Classification: 3 [...] Procedure(s): EGD Anesthesia History Anesthesia History - 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: Anesthesia History - 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 Hx Hospitalization Yes: LOW SODIUM 06/202509/15/25 13:45 [...] take am of surgery PONV PONV - 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: PONV - 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 Female No 09/15/25 13:45 HX of Motion [...] 09/17/25 12:52 Respiratory Assessment Respiratory Assessment - 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: Respiratory Tract Infection Hx - 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 Hx Respiratory Tract Infection No 09/15/25 13:45 STOP Sleep Apnea STOP Sleep Apnea - 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: STOP Sleep Apnea - 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 Hx Hypertension Yes: STILL WORKING ON, 09/15/25 [...] Tobacco Use History Tobacco Use History - 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: Tobacco Use History - 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 Tobacco Use Smoking Status Current every day smoker 09/15/25 13:45 Hx Tobacco Use Yes 09/15/25 13:45 Years Smoking Packs Smoked per Day Smoking Cessation Date was within the last 15 years Hx Smoking Cessation Date Hx Smoking Cessation Counseling Hematologic Medial History 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 Hx of Blood Transfusion No 09/15/25 13:45 [...] confused, unrespo /Reproduction History /Reproductive History - 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: /Reproductive Hx- 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 Hx Now No 09/15/25 13:45 Gestational Age [...] MD Cosigner Signature: Date CC: ~ Signed [facility]10-22-2025 History and physical note [facility] Medical Records Department [address] [place] [address] History & Physical Exam 09/17/25 1248 MR#: [id number] Acct: [id number] Name: LYNNETTE GONG Rep #:[id number] : 1970 55 From: Tito Friend PCP: UMAIR Taveras Status:REG [facility] Location: [place] [address] HPI - General General Date of Admission: [...] is a link to this NIH article https://pmc.ncbi.nlm.nih.gov/articles/FEA7819184/ OV 08/26/25 - Continues to have daily nausea and dry heaving but no vomiting -Taking Zofran 10 times per day -Continues with kratom -Taking Excedrin intermittently ] [facility] Medical History Emphysema, unspecified Wears glasses Loose, [...] CC: UMAIR Roa; Tito Morris DO~ Signed [facility]10-22-2025 [facility] Medical Records Department [address] [place] [address] History Physical Exam 09/17/25 1248 MR#: [id number] Acct: [id number] Name: LYNNETTE GONG Rep #: [id number] : 1970 55 From: Tito Morris DO PCP: MUAIR Taveras Status:REG [facility] Location: AC14-1 HPI - General General Date [...] of organ toxicity, particularl (more content not included)...[facility]09-30-2025 [facility] Gastroenterology [address] [place] [address] OFFICE VISIT Date of Service: 08/26/25 MR#: [id number] Acct: [id number] Name: LYNNETTE GONG Rep #: [id number] : 1970 Provider: LANA Adan Age/Sex: 55/M Location: [facility] Status: Signed Intake Vital Signs 08/11/25 14:40 08/14/25 09:48 Height 5 ft 7 in 5 ft 7 in Weight: 304 lb 4 oz BMI 47.6 BP 144/87 H Respiration 18 Pulse 82 Temp 98.8 F Pulse Oximetry (%) 93 Oxygen Delivery Method room air Intake Visit Reasons: SCHEDULE FU PER ANANYA Chief Complaint: Nausea and vomiting Systems Manager Required: No Accompanied by: Self Is patient [...] is a link to this NIH article https://pmc.ncbi.nlm.nih.gov/articles/AJH6882814/ OV 08/26/25 - Continues to have daily [...] Cosigner Signature: Date (if applicable) CC: ~ [facility]07-28-2025 Radiology Diagnostic study note [facility] Imaging Services [address] [place], [place] [address] Abdomen Single View MR#: [id number] Acct: [id number] Name: LYNNETTE GONG Rep #: [id number] : 1970 M 54 From: Claudio Pagan MD PCP: UMAIR Taveras Status: REG ER Study:Abdomen Single View Date of Exam: 06/23/25 Exam# [id number] Ordering Dr: Juan Rush DO PROCEDURE: ABDOMEN [...] the rectum may indicate constipation.. Reading Location: [facility] CC: BINDERY WORKER-Juju Roa; Dr. Juan Rush DO ~ Hot Saw Helper: Signed [facility]07-23-2025 Radiology Diagnostic study note [facility] Imaging Services [address] [place] [address] Abdomen Single View MR#: [id number] Acct: [id number] Name: LYNNETTE GONG Rep #: [id number] : 1970 M 54 From: Niru Rush MD PCP: UMAIR Taveras Status: REG CLI Study:Abdomen Single View Date of Exam: 06/17/25 Exam# [id number] Ordering Dr: Ra jacoby Roa BINDERY WORKER-Juju EXAM: XR Abdomen, 1 View CLINICAL INDICATION: CONSTIPATION, MELENA, NAUSEA TECHNIQUE: Frontal supine view of the abdomen/pelvis. COMPARISON: No relevant prior studies available. FINDINGS: GASTROINTESTINAL TRACT: Fecal retention in the colon consistent with constipation. No dilation. BONES/JOINTS: Unremarkable. No acute fracture. RAD/Abdomen Single View IMPRESSION: Fecal retention in the colon consistent with constipation. Reading Location: [facility] CC: BINDERY WORKER-Juju Roa ~ Hot Saw Helper: Signed [facility]07-15-2025 Evaluation note* Diagnosis Onset Date Resolution [...] 7:49am Nausea acute September 23, 2025 7:49am [facility] Work Phone: 1(991) 167-354207-15-2025 Radiology Diagnostic study note [facility] Imaging Services [address] [place] [address] Lung Screening MR#: [id number] Acct: [id number] Name: LYNNETTE GONG Rep #: [id number] : 1970 M 54 From: Rahul Gould MD PCP: Deborah Roa BINDERY WORKER-C Status: REG CLI Study:Low Dose CT Lung Screening Date of Exam : 06/10/25 Exam# [id number] Ordering Dr: Anay Solano NP BINDERY WORKER-C PROCEDURE: LOW DOSE CT LUNG SCREENING 06/10/2025 REASON FOR EXAM: LUNG CANCER SCREENING Patient has smoked 1-1/2-2 packs per day for 37 years. TECHNIQUE: Coronal and Sagittal reconstruction series were provided. One or more dose reduction techniques were used (e.g., Automated exposure control, adjustment of the mA and/or kV according to patient size, use of iterative reconstruction technique). REFERENCE LINK: [employer] Lung-RADS RADIATION DOSE SUMMARY: CTDlvol: 3.18 mGy [...] SCREENING LDCT. Other Significant Findings: Reading Location: [id number] CC: UMAIR Roa; UMAIR Bull ~ Hot Saw Helper: Signed [facility]06-09-2025 Discharge summary [facility] Medical Records Department [address] [place] [address] Discharge Summary 05/05/25 1004 MR#: [id number] Acct: [id number] Name: LYNNETTE GONG Rep #:[id number] : 1970 54 From: Kevin Singh DO PCP: UMAIR Taveras Status:ADM IN Location: [place] [address] Providers Date of Admission: 05/03/25 Primary Care [...] Admit Date/Time: 05/03/25 18:03 Attending Provider: Kevin Signh Primary Care Provider: Deborha Roa Consulting Providers: Meseret Minor Discharge Orders/Prescriptions [...] 05/05/25 at 1009 Visit Charges Inpatient E&M: 13817 Disch Hosp 05/05/25 1009 Cosigner Signature (if applicable): cc: UMAIR Roa; Dr. Kevin Singh DO ~* Signed [facility]06-09-2025 [facility] Medical Records Department [address] [place] [address] Discharge Summary 05/05/25 1004 MR#: [id number] Acct: [id number] Name: LYNNETTE GONG Rep #: [id number] : 1970 54 From: Kevin Singh DO PCP: UMAIR Tavreas Status:ADM IN Location: [place] [address] Providers Date of Admission: 05/03/25 Primary Care [...] at 1009 Visit Charges Inpatient E M: 35338 Disch Hosp 05/05/25 1009 Cosigner Signature (if applicable): cc: UMAIR Roa; Dr. Kevin Singh DO * [facility] Progress note Author Kevin Singh [facility] Note Date/Time May 04, 2025 1:33p m [facility] Medical Records Department [address] [facility] [place] [address] Progress Note - Hospitalist 05/04/25910 MR#: [id number] Acct: [id number] Name: LYNNETTE GONG Rep #:[id number] : 1970 54 From: Kevin Singh DO PCP: UMAIR Taveras Status:ADM IN Location: [place] [address] Reason for Visit Reason for Visit: Diagnoses [...] 76.5 H, Lymph % (Auto) 15.6 L, Edmunds % (Auto) 6.7, Eos % (Auto) 0.1, [...] Clarity Clear, Urine pH 7.0, Ur Specific [place] 1.010, Urine Protein 15 H, Urine Glucose [...] % (Auto) 65.3, Lymph % (Auto) 22.7, Edmunds% (Auto) 10.3 H, Eos % (Auto) 0.2, [...] 16:00 IMPRESSION: NO ACUTE FINDINGS. Reading Location: [facility] Physical Exam Const alert and no apparent [...] in AM. Charges/Coding Visit Charges Inpatient E&M: 15117 Subs Hosp L2 05/04/25 1333 <Electronically signed by Kevin Singh DO> Cosigner Signature (if applicable): CC: ~ Signed [facility] Work Phone: 1(524) 960-982706-08-2025 Progress note [facility] Medical Records Department [address] [place] [address] Progress Note - Hospitalist 05/04/25910 MR#: [id number] Acct: [id number] Name: LYNNETTE GONG Rep #:[id number] : 1970 54 From: Kevin Singh DO PCP: UMAIR Taveras Status:ADM IN Location: [place] [id number] Reason for Visit Reason for Visit: Diagnoses [...] 76.5 H, Lymph % (Auto) 15.6 L, Edmunds % (Auto) 6.7, Eos % (Auto) 0.1, [...] Clarity Clear, Urine pH 7.0, Ur Specific [place] 1.010, Urine Protein 15 H, Urine Glucose [...] % (Auto) 65.3, Lymph % (Auto) 22.7, Edmunds% (Auto) 10.3 H, Eos % (Auto) 0.2, [...] 16:00 IMPRESSION: NO ACUTE FINDINGS. Reading Location: [id number] Physical Exam Const alert and no apparent [...] in AM. Charges/Coding Visit Charges Inpatient E&M: 18033 Subs Hosp L2 05/04/25 1333 Cosigner Signature (if applicable): CC: ~ Signed [facility]06-07-2025 History and physical note Author Meseret Minor [facility] Note Date/Time May 03, 2025 7:01p m [facility] Medical Records Department [address] [place] [address] H&P Exam - Hospitalist 05/03/25 1806 MR#: [id number] Acct: [id number] Name: LYNNETTE GONG Rep #:[id number] : 1970 54 From: Meseret Minor DO PCP: UMAIR Taveras Status:ADM IN Location: [place] [id number]- 1 HPI - General General Date of Admission: 05/03/25 Date of Service: 05/03/25 Chief Complaint: Elevated blood pressure HPI Narrative LYNNETTE GONG, is a 54 M who presented to the emergency department [facility] on 05/03/2025 with the chief [...] his most recent blood pressure at 159/89. [facility] Medical History HTN (hypertension) Morbid obesity Home [...] 76.5 H, Lymph % (Auto) 15.6 L, Edmunds % (Auto) 6.7, Eos % (Auto) 0.1, [...] 16:00 IMPRESSION: NO ACUTE FINDINGS. Reading Location: [id number] Assessment & Plan Assessment/Plan (1) Acute hyponatremia: [...] and asked his PCP to call in [facility] however it is too expensive for him. - We did discuss that there are other alternatives and I recommended he discuss this with his primary care physician- DVT prophylaxis - Lovenox SQ twice daily CODE STATUS - Full code Charges/Coding Visit Charges Inpatient E&M: 27426 Init Hosp L2 05/03/25 190 <Electronically signed by Meseret Minor DO> Cosigner Signature (if applicable): CC: BINDERY WORKERLaurel Roa; Dr. Meseret Minor DO~ Signed [facility] Work Phone: 1(349) 855-500906-07-2025 Discharge summary Author Allan Jc [facility] Note Date/Time May 03, 2025 6:22p m [facility] Medical Records Department [address] [place] [address] Emergency Department Summary 05/03/25 MR#: [id number] Acct: [id number] Name: LYNNETTE GONG Rep #:[id number] : 1970 54 From: Allan Jc DO [...] that he no longer has a headache. [facility] Medical History (Updated 05/03/25 @ [...] following commands knew that he was at [facility] year is 2024 patient NIH of [...] 76.5 H Lymph % (Auto) 15.6 L Edmunds % (Auto) 6.7 Eos % (Auto) 0.1 [...] 16:00 IMPRESSION: NO ACUTE FINDINGS. Reading Location: [id number] Discharge Plan Triage Chief Complaint: Hypertension ED Provider: Allan Jc Dx/Rx/DC Orders Clinical Impression: Acute hyponatremia, Hyperglycemia, Hypertension Prescriptions: No Action losartan 25 mg tablet 25 mg PO DAILY Primary Care Provider: Deborah Roa Referrals: Care Physician,No Primary [Non-Staff] - Print Language: Swazi Disposition Disposition: [facility] What to do if you have Problems For any increased pain, shortness of breath, bleeding, nausea or vomiting, chestpain, or any unexpected problems, contact your Primary Care Provider. Call [facility] ([phone]) or report to the closest Emergency Room. Call 911 if necessary. 05/03/251821 <Electronically signed by Allan Jc DO> Cosigner Signature (if applicable): CC: UMAIR Roa ~ Signed [facility] Work Phone: 1(365) 479-116206-07-2025 Evaluation note* Diagnosis Onset Date Resolution Status Admit Date Acute hyponatremia acute May 032024 6:03pm Hyperglycemia acute May 03 025 6:03pm Hypertensive urgency acute May 03, 2025 6:03pm [facility] Work Phone: 1(413) 639-141406-07-2025 Evaluation note* Diagnosis Onset Date Resolution Status Admit Date Acute hyponatremia resolved May 032024 6:03pm Hyperglycemia resolved May 03 025 6:03pm Hypertensive urgency resolved May 03, 2025 6:03pm Constipation acute May 12, 2 025 1:20pm Screen for colon cancer acute [facility] 2024 1:20pm [facility] Work Phone: 1(789) 794-760806-07-2025 Evaluation note* Diagnosis Onset Date Resolution Status Admit Date Acute hyponatremia resolved May 032024 6:03pm Hyperglycemia resolved May 03, 2 025 6:03pm Hypertensive urgency resolved May 03, 2025 6:03pm Constipation acute May 12, 2 025 1:20pm Screen for colon cancer acute [facility] 2024 1:20pm Encounter for screening for malignant neoplasm of lung acute June 10, 2025 12:37pm Tobacco use disorder, continuous acute June 10, 2025 12:37pm [facility] Work Phone: 1(295) 592-223806-07-2025 Evaluation note* Diagnosis Onset Date Resolution Status Admit Date Acute hyponatremia resolved May 032024 6:03pm Hyperglycemia resolved May 03, 2 025 6:03pm Hypertensive urgency resolved May 03, 2025 6:03pm Constipation acute May 12, 2 025 1:20pm Screen for colon cancer acute [facility] 2024 1:20pm Encounter for screening for malignant neoplasm of lung acute June 10, 2025 12:37pm Tobacco use disorder, continuous acute June 10, 2025 12:37pm Constipation acute July 17, 2025 10:45am Generalized headaches acute Jun 10:45am Hyponatremia acute July 17, 2025 10:45am [facility] Work Phone: 1([phone]) 983-726706-07-2025 Evaluation note* Diagnosis Onset Date Resolution Status [...] August 112024 2:27pm Nausea acute July 2:27pm [facility] Work Phone: 1(866) 863-558206-07-2025 Evaluation note* Diagnosis Onset Date Resolution Status [...] August 262024 11:18am Nausea acute July 11:18am [facility] Work Phone: 1(415) 629-393206-07-2025 History and physical note [facility] Medical Records Department [address] [place] [address] H&P Exam - Hospitalist 05/03/25 1806 MR#: [id number] Acct: [id number] Name: LYNNETTE GONG Rep #:[id number] : 1970 54 From: Meseret Minor DO PCP: UMAIR Taveras Status:ADM [facility] HPI - General General Date of Admission: 05/03/25 Date of Service: 05/03/25 Chief Complaint: Elevated blood pressure HPI Narrative LYNNETTE GONG, is a 54 M who presented to the emergency department [facility] on 05/03/2025 with the chief [...] his most recent blood pressure at 159/89. [facility] Medical History HTN (hypertension) Morbid obesity Home [...] 76.5 H, Lymph % (Auto) 15.6 L, Edmunds % (Auto) 6.7, Eos % (Auto) 0.1, [...] 16:00 IMPRESSION: NO ACUTE FINDINGS. Reading Location: [facility] Assessment & Plan Assessment/Plan (1) Acute hyponatremia: [...] and asked his PCP to call in [employer] however it is too expensive for him. - We did discuss that there are other alternatives and I recommended he discuss this with his primary care physician- DVT prophylaxis - Lovenox SQ twice daily CODE STATUS - Full code Charges/Coding Visit Charges Inpatient E&M: 92259 Init Hosp L2 05/03/25 1901 Cosign Signature (if applicable): CC: BINDERY WORKER-C Deborah Roa; Dr. Meseret Minor DO~ Signed [facility]06-07-2025 Discharge summary [facility] Medical Records Department [address] [place] [address] Emergency Department Summary 05/03/25 MR#: [id number] Acct: [id number] Name: LYNNETTE GONG Rep #:[id number] : 1970 54 From: Allan Jc DO [...] that he no longer has a headache. [facility] Medical History (Updated 05/03/25 @ [...] following commands knew that he was at [facility] year is 2024 patient NIH of [...] 76.5 H Lymph % (Auto) 15.6 L Edmunds % (Auto) 6.7 Eos % (Auto) 0.1 [...] 16:00 IMPRESSION: NO ACUTE FINDINGS. Reading Location: [facility] Discharge Plan Triage Chief Complaint: Hypertension ED Provider: Allan Jc Dx/Rx/DC Orders Clinical Impression: Acute hyponatremia, Hyperglycemia, Hypertension Prescriptions: No Action losartan 25 mg tablet 25 mg PO DAILY Primary Care Provider: Deborah Roa Referrals: Care Physician,No Primary [Non-Staff] - Print Language: Swazi Disposition Disposition: Acute Care Hospital [facility] What to do if you have Problems For any increased pain, shortness of breath, bleeding, nausea or vomiting, chestpain, or any unexpected problems, contact your Primary Care Provider. Call [facility] ([phone]) or report tothe closest Emergency Room. Call 911 if necessary. 05/03/25 1822 Cosigner Signature (if applicable): CC: UMAIR Roa ~ Signed [facility]06-07-2025 Radiology Diagnostic study note [facility] Imaging Services [address] [place], [place] [address] Chest PA and Lateral MR#: [id number] Acct: [id number] Name: LYNNETTE GONG Rep #: [id number] : 1970 M 54 From: Kimberly Vaughan MD PCP: Deborah Roa NP-C Status: REG ER Study:Chest PA and Lateral Date of Exam: 05/03/25 Exam# [id number] Ordering Dr: Dhaval Jc DO PROCEDURE: CHEST [...] Lateral IMPRESSION: NO ACUTE FINDINGS. Reading Location: [id number] CC: BINDERY WORKER-C Deborah Roa; Dr. Allan Jc DO ~ Hot Saw Helper: Signed [facility]12-21-2022 NoteClinical Note - Pharmacy v2: Education: [...] Post-Discharge Culture Follow Up Team, please contact [phone]. . Aspen Chapa PharmD PGY1 Resident Med Electronic Signatures: Aspen Chapa (PHARM STUD) (Signed 16-Nov-2022 15:13) Authored: Education Deborah Ramirez (PharmD) (Signed 17-Nov-2022 08:30) Co-Signer: Education Last Updated: 17-Nov-2022 08:30 by Deborah Ramirez (PharmD)[facility] Note Date/Time May 05, 2025 10:09 am [facility] Medical Records Department [address] [place] [address] Discharge Summary 05/05/25 1004 MR#: [id number] Acct: [id number] Name: LYNNETTE GONG Rep #:[id number] : 1970 54 From: Kevin Singh DO PCP: UMAIR Taveras Status:ADM IN Location: [place] [address] Providers Date of Admission: 05/03/25 Primary Care [...] 05/05/25 at 1009 Visit Charges Inpatient E&M: 17533 Disch Hosp 05/05/25 1009<Electronically signed by Kevin Singh DO> Cosigner Signature (if applicable): cc: UMAIR Roa; Dr. Kevin Singh DO ~* Signed [facility] Work Phone: Evaluation noteNo assessment information available [facility] Work Phone: Evaluation note* Diagnosis Onset Date Resolution Status Admit Date Acute hyponatremia acute May 032024 6:03pm Hyperglycemia acute May 03, 025 6:03pm Hypertensive urgency acute May 03, 2025 6:03pm [facility] Work Phone: History and physical note Author Meseret Minor [facility] Note Date/Time May 03, 2025 7:01p m [facility] Medical Records Department [address] [place] [address] H&P Exam - Hospitalist 05/03/25 1806 MR#: [id number] Acct: [id number] Name: LYNNETTE GONG Rep #:[id number] : 1970 54 From: Meseret Minor DO PCP: UMAIR Taveras Status:ADM IN Location: [place] [id number]- 1 HPI - General General Date of Admission: 05/03/25 Date of Service: 05/03/25 Chief Complaint: Elevated blood pressure HPI Narrative LYNNETTE GONG, is a 54 M who presented to the emergency department [facility] on 05/03/2025 with the chief [...] his most recent blood pressure at 159/89. [facility] Medical History HTN (hypertension) Morbid obesity Home [...] 76.5 H, Lymph % (Auto) 15.6 L, Edmunds % (Auto) 6.7, Eos % (Auto) 0.1, [...] 16:00 IMPRESSION: NO ACUTE FINDINGS. Reading Location: [facility] Assessment & Plan Assessment/Plan (1) Acute hyponatremia: [...] and asked his PCP to call in [employer] however it is too expensive for him. - We did discuss that there are other alternatives and I recommended he discuss this with his primary care physician- DVT prophylaxis - Lovenox SQ twice daily CODE STATUS - Full code Charges/Coding Visit Charges Inpatient E&M: 56295 Init Hosp L2 05/03/25 1901 <Electronically signed by Meseret Minor DO> Cosigner Signature (if applicable): CC: UMAIR Roa; Dr. Meseret Minor DO~ Signed [facility] Work Phone: Hospital Discharge instructions Additional Instructions Please return if you lose consciousness, if you develop chest pain, if you have shortness of breath we have difficulty with exertion. Please follow-up with the family practice physician Dr. Dias. Please get an outpatient stress test for further evaluation of possible heart issues.[facility] Work Phone: Hospital Discharge instructionsAdditional Instructions re x-ray consistent with constipation. Status post enema in the ED. take your MiraLAX 1 full cup of water with 1 cup every hour until you have a bowel movement. Continue your stool softeners. Follow-up with your [facility] Work Phone: Progress note Author Debbie Garcia [facility] Note Date/Time August 26, 2025 11:57am [facility] [address] [place] [address] OFFICE VISIT Date of Service: 08/26/25 MR#: [id number] Acct: [id number] Name: LYNNETTE GONG Rep #: [id number] : 1970 Provider: LANA Adan Age/Sex: 55/M Location: [facility] Status: Signed Intake Vital Signs 08/11/25 14:40 08/14/25 09:48 Height 5 ft 7 in 5 ft 7 in Weight: 304 lb 4 oz BMI 47.6 BP 144/87 H Respiration 18 Pulse 82 Temp 98.8 F Pulse Oximetry (%) 93 Oxygen Delivery Method room air Intake Visit Reasons: SCHEDULE FU PER ANANYA Chief Complaint: Nausea and vomiting Systems Manager Required: No Accompanied by: Self Is patient [...] #90 ta bs 08/11/25 08/26/25 Rx release [facility] Medical History History of CVA (cerebrovascular accident) [...] is a link to this NIH article https://pmc.ncbi.nlm.nih.gov/articles/GMZ3144718/ OV 08/26/25 - Continues to have daily [...] Cosigner Signature: Date (if applicable) CC: ~ [facility] Work Phone: Reason for referral (narrative)No reason for referral information availableWSt. Francis Hospital Work Phone: Chief Complaint and Reason [...] Will No September 20 2:16pm Power of Medical Records Auditor No September 20, 2022 2:16pm Advance Directive Response Recorded Date/ Time Do you have a Healthcare Power of Medical Records Auditor? No May 03, 2025 3:36pm Advance Directive Response Recorded Date/ Time Do you have a Healthcare Power of Medical Records Auditor? No May 03, 2025 7:20pm Advance Directive Response Recorded Date/ Time Do you have a Healthcare Power of Medical Records Auditor? No May 03, 2025 7:20pm Do you have a Healthcare Power of Medical Records Auditor? No June 23, 2025 5:36pm Advance Directive Response Recorded Date/ Time Do you have a Healthcare Power of Medical Records Auditor? No June 23, 2025 4:36pm Do you have a Healthcare Power of Medical Records Auditor? No September 15, 2025 12:45pm Summary Purpose [...] section and content) DATE CREATED AUTHOR 11/18/2022 [facility] DATE CREATED AUTHOR AUTHOR'S ORGANIZ ATION 10/04/2025 [facility] Care Teams (unrecognized sec tion and [...] Start: May 05, 2025 Deborah Roa , BINDERY WORKER-C Primary Care Provider Active Start: May 05, [...] Start: May 03, 2025 Deborah Roa , BINDERY WORKER-C Primary Care Provider Active Start: May 03, [...] End: May 12, 2025 Deborahtony Roa , BINDERY WORKER-C Primary Care Provider Active Start: May 12, 2025 End: May 12, 2025 Team Status: Active Member Role/Relationship Status Dates Deborah Roa , BINDERY WORKER-C Primary Care Provider Active Team Status: Inactive Member Role/Relationship Status Dates Dr. Allan Jc DO Emergency Provider Active Start: May 03, 2025 End: May 05, 2025 Deborah Roa , BINDERY WORKER-C Primary Care Provider Active Start: May 03, [...] Active Start: May 03, 2025 Deborah Roa BINDERY WORKER-C Primary Care Provider Active Start: May 03, [...] Active Start: May 04, 2025 Deborah Roa BINDERY WORKER-C Primary Care Provider Active Start: May 04, [...] Start: May 05, 2025 Deborah Roa , BINDERY WORKER-C Primary Care Provider Active Start: May 05, [...] End: May 12, 2025 Deborah Roa , BINDERY WORKER-C Primary Care Provider Active Start: May 12, 2025 End: May 12, 2025 Team Status: Inactive Member Role/Relationship Status Dates Deborah Roa , BINDERY WORKER-C Primary Care Provider Active Start: May 20, 2025 End: May 20, 2025 Deborah Crispin , BINDERY WORKER-C Attending Provider Active St art: May 20, 2025 End: May 20, 2025 Team Status: Inactive Member Role/Relationship Status Dates Deborah Crispin , BINDERY WORKER-C Primary Care Provider Active Start: May 29, 2025 End: May 29, 2025 Deborah Crispin , BINDERY WORKER-C Attending Provider Active St art: May 29, 2025 End: May 29, 2025 Team Status: Inactive Member Role/Relationship Status Dates Deborah Crispin , BINDERY WORKER-C Primary Care Provider Active Start: June 10, 2025 End: June 10, 2025 Deborah Stephensongar , BINDERY WORKER-C Referring Provider Active St art: June 10, 2025 End: June 10, 2025 Anay Jorgito BINDERY WORKER, BINDERY WORKER-C Attending Provider Active Start: June 10, 2025 End: June 10, 2025 Team Status: Inactive Member Role/Relationship Status Dates Deborah Crispin , BINDERY WORKER-C Primary Care Provider Active Start: June 10, 2025 End: June 10, 2025 Anay Jorgito BINDERY WORKER, BINDERY WORKER-C Attending Provider Active Start: June 10, 2025 End: June 10, 2025 Anay Jorgito BINDERY WORKER, BINDERY WORKER-C Referring Provider Active Start: June 10, 2025 End: June 10, 2025 Team Status: Inactive Member Role/Relationship Status Dates Deborah Crispin , BINDERY WORKER-C Primary Care Provider Active Start: June 17, 2025 End: June 17, 2025 Deborahtony Roa , BINDERY WORKER-C Attending Provider Active St art: June 17, 2025 End: June 17, 2025 Deborah Roa , BINDERY WORKER-C Referring Provider Active St art: June 17, 2025 End: June 17, 2025 Team Status: Inactive Member Role/Relationship Status Dates Deborah Crispin , BINDERY WORKER-C Primary Care Provider Active Start: June 23, 2025 End: June 23, 2025 Dr. Juan Rush DO Emergency Provider Active Start : June 23, 2025 End: June 23, 2025 Team Status: Inactive Member Role/Relationship Status Dates Deborah Crisipn , BINDERY WORKER-C Primary Care Provider Active Start: June 23, 2025 End: June 23, 2025 Dr. Juan Rush DO Attending Provider Active Start : June 23, 2025 End: June 23, 2025 Dr. Juan Rush , DO Emergency Provider Active Start : June 23, 2025 End: June 23, 2025 Team Status: Inactive Member Role/Relationship Status Dates Deborah Roa , BINDERY WORKER-C Primary Care Provider Active Start: July 17, 2025 End: July 17, 2025 Deborah Roa , BINDERY WORKER-C Referring Provider Active St art: July 17, 2025 End: July 17, 2025 Elizabet Diop BINDERY WORKER-C Attending Provider Active Start: July 17, 2025 End: July 17, 2025 Team Status: Active Member Role/Relationship Status Dates Deborah Roa , BINDERY WORKER-C Primary Care Provider Active Start: July 17, 2025 Elizabet Diop , BINDERY WORKER-C Attending Provider Active Start: July 17, 2025 Elizabet Diop BINDERY WORKER-C Referring Provider Active Start: July 17, 2025 Team Status: Inactive Member Role/Relationship Status Dates Deborahtony Roa , BINDERY WORKER-C Primary Care Provider Active Start: June 10, 2025 End: June 10, 2025 Anay Bull BINDERY WORKER, BINDERY WORKER-C Attending Provider Active Start: June 10, 2025 End: June 10, 2025 Anay Bull BINDERY WORKER, BINDERY WORKER-C Referring Provider Active Start: June 10, 2025 End: June 10, 2025 Team Status: Inactive Member Role/Relationship Status Dates Deborah Roa , BINDERY WORKER-C Primary Care Provider Active Start: July 17, 2025 End: July 17, 2025 Elizabet Diop BINDERY WORKER-C Attending Provider Active Start: July 17, 2025 End: July 17, 2025 Elizabet Diop BINDERY WORKER-C Referring Provider Active Start: July 17, 2025 End: July 17, 2025 Team Status: Inactive Member Role/Relationship Status Dates Deborah Roa , BINDERY WORKER-C Primary Care Provider Active Start: August 04, 2025 End: August 04, 2025 Deborah Roa , BINDERY WORKER-C Attending Provider Active St art: August 04, 2025 End: August 04, 2025 Team Status: Inactive Member Role/Relationship Status Dates Deborahtony Roa , BINDERY WORKER-C Primary Care Provider Active Start: August 11, 2025 End: August 11, 2025 Deborah Roa , BINDERY WORKER-C Referring Provider Active St art: August 11, 2025 End: August 11, 2025 Elizabet Jadon , BINDERY WORKER-C Attending Provider Active Start: August 11, 2025 [...] ctive Start: May 03, 2025 Deborah Roa BINDERY WORKER-C Primary care physician Active Start: May 03, [...] ctive Start: May 05, 2025 Deborah Roa BINDERY WORKER-C Primary care physician Active Start: May 05, 2025 Dr. Meseret Minor DO Admitting physician Active Start: May 05, 2025 Dr. Meseret Minro , DO Nurse Practitioner Active S tart: [...] End: May 12, 2025 Deborah Crispin , BINDERY WORKER-C Primary care physician Active Start: May 12, 2025 End: May 12, 2025 Team Status: Inactive Member Role/Relationship Status Dates Deborah Crispin , BINDERY WORKER-C Primary care physician Active Start: May 20, 2025 End: May 20, 2025 Deborah Crispin , BINDERY WORKER-C Attending physician Active S tart: May 20, 2025 End: May 20, 2025 Team Status: Inactive Member Role/Relationship Status Dates Deborah Crispin , BINDERY WORKER-C Primary care physician Active Start: May 29, 2025 End: May 29, 2025 Deborah Crispin , BINDERY WORKER-C Attending physician Active S tart: May 29, 2025 End: May 29, 2025 Team Status: Inactive Member Role/Relationship Status Dates Deborah Crispin , BINDERY WORKER-C Primary care physician Active Start: June 10, 2025 End: June 10, 2025 Anay Jorgito BINDERY WORKER, BINDERY WORKER-C Attending physician Active Start: June 10, 2025 End: June 10, 2025 Anay Jorgito BINDERY WORKER, BINDERY WORKER-C Referring Provider Active Start: June 10, 2025 End: June 10, 2025 Team Status: Inactive Member Role/Relationship Status Dates Deborah Crispin , BINDERY WORKER-C Primary care physician Active Start: June 10, 2025 End: June 10, 2025 Anay Jorgito BINDERY WORKER, BINDERY WORKER-C Attending physician Active Start: June 10, 2025 End: June 10, 2025 Anay Jorgito BINDERY WORKER, BINDERY WORKER-C Referring Provider Active Start: June 10, 2025 End: June 10, 2025 Team Status: Inactive Member Role/Relationship Status Dates Deborahtony Roa , BINDERY WORKER-C Primary care physician Active Start: June 17, 2025 End: June 17, 2025 Deborah Roa , BINDERY WORKER-C Attending physician Active S tart: June 17, 2025 End: June 17, 2025 Deborah Roa , BINDERY WORKER-C Referring Provider Active St art: June 17, 2025 End: June 17, 2025 Team Status: Inactive Member Role/Relationship Status Dates Deborah Roa , BINDERY WORKER-C Primary care physician Active Start: June 23, 2025 End: June 23, 2025 Dr. Juan Rush DO Attending physician Active Star t: June 23, 2025 End: June 23, 2025 Dr. Juan Rush , Emergency Department Physician Active Start: June 23, 2025 End: June 23, 2025 Team Status: Inactive Member Role/Relationship Status Dates Deborah Roa BINDERY WORKER-C Primary care physician Active Start: July 17, 2025 End: July 17, 2025 Deborah Roa , BINDERY WORKER-C Referring Provider Active St art: July 17, 2025 End: July 17, 2025 Elizabet Diop NP-C Attending physician Active Start: July 17, 2025 End: July 17, 2025 Team Status: Inactive Member Role/Relationship Status Dates Deborah Roa , BINDERY WORKER-C Primary care physician Active Start: July 17, 2025 End: July 17, 2025 Elizabet Diop NP-C Attending physician Active Start: July 17, 2025 End: July 17, 2025 Elizabet Diop NP-C Referring Provider Active Start: July 17, 2025 End: July 17, 2025 Team Status: Inactive Member Role/Relationship Status Dates Deborah Roa , BINDERY WORKER-C Primary care physician Active Start: August 04, 2025 End: August 04, 2025 Deborah Roa , BINDERY WORKER-C Attending physician Active S tart: August 04, 2025 End: August 04, 2025 Team Status: Inactive Member Role/Relationship Status Dates Deborah Roa , BINDERY WORKER-C Primary care physician Active Start: August 11, 2025 End: August 11, 2025 Deborah Roa , BINDERY WORKER-C Referring Provider Active St art: August 11, 2025 End: August 11, 2025 Elizabet Diop NP-C Attending physician Active Start: August 11, 2025 End: August 11, 2025 Team Status: Inactive Member Role/Relationship Status Dates Deborah Crispin , BINDERY WORKER-C Primary care physician Active Start: August 14, 2025 End: August 14, 2025 Elizabet Diop BINDERY WORKER-C Attending physician Active Start: August 14, 2025 End: August 14, 2025 Elizabet Diop , BINDERY WORKER-C Referring Provider Active Start: August 14, 2025 End: August 14, 2025 Team Status: Inactive Member Role/Relationship Status Dates Deborah Roa , BINDERY WORKER-C Primary care physician Active Start: August 26, 2025 End: August 26, 2025 Deborah Roa , BINDERY WORKER-C Referring Provider Active St art: August 26, 2025 End: August 26, 2025 LANA Adan Attending physician Active Start: August 26, 2025 End: August 26, 2025 Team Status: Inactive Member Role/Relationship Status Dates Deborah Roa , BINDERY WORKER-C Primary care physician Active Start: June 10, 2025 End: June 10, 2025 Anay Bull NP, BINDERY WORKER-C Attending physician Active Start: June 10, 2025 End: June 10, 2025 Anay Bull BINDERY WORKER, BINDERY WORKER-C Referring Provider Active Start: June 10, 2025 End: June 10, 2025 Team Status: Inactive Member Role/Relationship Status Dates Deborah Roa BINDERY WORKER-C Primary care physician Active Start: June 10, 2025 End: June 10, 2025 Anay Bull NP, BINDERY WORKER-C Attending physician Active Start: June 10, 2025 End: June 10, 2025 Anay Bull BINDERY WORKER, BINDERY WORKER-C Referring Provider Active Start: June 10, 2025 End: June 10, 2025 Team Status: Inactive Member Role/Relationship Status Dates Deborah Roa , BINDERY WORKER-C Primary care physician Active Start: June 17, 2025 End: June 17, 2025 Deborah Roa , BINDERY WORKER-C Attending physician Active S tart: June 17, 2025 End: June 17, 2025 Deborah Roa , BINDERY WORKER-C Referring Provider Active St art: June 17, 2025 End: June 17, 2025 Team Status: Inactive Member Role/Relationship Status Dates Deborah Roa , BINDERY WORKER-C Primary care physician Active Start: June 23, 2025 End: June 23, 2025 Dr. Jaun Rush DO Attending physician Active Star t: June 23, 2025 End: June 23, 2025 Dr. Juan Rush , Emergency Department Physician Active Start: June 23, 2025 End: June 23, 2025 Team Status: Inactive Member Role/Relationship Status Dates Deborah Roa , BINDERY WORKER-C Primary care physician Active Start: July 17, 2025 End: July 17, 2025 Deborah Roa BINDERY WORKER-C Referring Provider Active St art: July 17, 2025 End: July 17, 2025 Elizabet Diop BINDERY WORKER-C Attending physician Active Start: July 17, 2025 End: July 17, 2025 Team Status: Inactive Member Role/Relationship Status Dates Deborah Roa BINDERY WORKER-C Primary care physician Active Start: July 17, 2025 End: July 17, 2025 Elizabet Diop BINDERY WORKER-C Attending physician Active Start: July 17, 2025 End: July 17, 2025 Elizabet Diop BINDERY WORKER-C Referring Provider Active Start: July 17, 2025 End: July 17, 2025 Team Status: Inactive Member Role/Relationship Status Dates Deborah Roa BINDERY WORKER-C Primary care physician Active Start: August 04, 2025 End: August 04, 2025 Deborah Roa BINDERY WORKER-C Attending physician Active S tart: August 04, 2025 End: August 04, 2025 Team Status: Inactive Member Role/Relationship Status Dates Deborah Roa BINDERY WORKER-C Primary care physician Active Start: August 11, 2025 End: August 11, 2025 Deborah Roa BINDERY WORKER-C Referring Provider Active St art: August 11, 2025 End: August 11, 2025 Elizabet Diop BINDERY WORKER-C Attending physician Active Start: August 11, 2025 End: August 11, 2025 Team Status: Inactive Member Role/Relationship Status Dates Deborah Roa BINDERY WORKER-C Primary care physician Active Start: August 14, 2025 End: August 14, 2025 Elizabet Diop BINDERY WORKER-C Attending physician Active Start: August 14, 2025 End: August 14, 2025 Elizabet Diop BINDERY WORKER-C Referring Provider Active Start: August 14, 2025 End: August 14, 2025 Team Status: Inactive Member Role/Relationship Status Dates Deborah Crispin , BINDERY WORKER-C Primary care physician Active Start: August 26, 2025 End: August 26, 2025 Deborah Roa , BINDERY WORKER-C Referring Provider Active St art: August 26, 2025 End: August 26, 2025 LANA Adan Attending physician Active Start: August 26, 2025 End: August 26, 2025 Team Status: Inactive Member Role/Relationship Status Dates Deborah Roa BINDERY WORKER-C Primary care physician Active Start: September 17, 2025 End: September 17, 2025 Deborah Roa , BINDERY WORKER-C Referring Provider Active St art: September 17, 2025 End: September 17, 2025 Dr. Tito Morris DO Attending physician Active Start: September 17, 2025 End: September 17, 2025 Team Status: Active Member Role/Relationship Status Dates Deborah Roa BINDERY WORKER-C Primary care physician Active Start: September 17, 2025 Deborah Roa , BINDERY WORKER-C Referring Provider Active St art: September 17, 2025 Dr. Tito Morris DO Attending physician Active Start: September 17, 2025 Dr. Tito Morris DO Nurse Practitioner Active Start: September 17, 2025 Team Status: Inactive Member Role/Relationship Status Dates Deborah Roa BINDERY WORKER-C Primary care physician Active Start: September 23, 2025 End: September 23, 2025 Deborah Roa , BINDERY WORKER-C Referring Provider Active St art: September 23, 2025 End: September 23, 2025 LANA Adan Attending physician Active Start: September 23, 2025 End: September 23, 2025 Team Status: Inactive Member Role/Relationship Status Dates Deborah Roa BINDERY WORKER-C Primary care physician Active Start: September 23, 2025 End: September 23, 2025 LANA Aadn Attending physician Active Start: September 23, 2025 [...] BE BASED ON THE PRIMARY CLINICAL RECORDS. [facility]. provides no warranty or guarantee of the accuracy or completeness of information in this document.
--- NOTE | 2025-11-10 21:34 | CM.ED ---
Social Work SW received a phone call from patients mother concerned that he is dying and I dont know what to do.? SW told patients mother that if she felt patient was in need of treatment, that she should encourage him to come to the ED. Mom states she wont come back to the ED because he does not want a bunch of testing done.? SW explained that since he was just here, that the doctor would take into account what has been completed already and only run tests that were necessary.? Patients mom thanked LINDA.? Patient came to ED asking to speak to SW.? 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 SW explained to patient that patients mother was told that unnecessary testing would not be completed but that patient would need assessed by a doctor when he arrived and that admission is to the hospital is a physician decision.? Patient stated understanding. Kristina Brumfield, MIDDLE SCHOOL LIBRARIAN, CREDIT UNION TELLER
[2025-11-10 21:45] LABS: Anion Gap 16 (5-15); BUN 8 mg/dL (4-19); BUN/Creat Ratio 9.4 RATIO (10-20); Calcium,Total 9.8 mg/dL (7.6-11.0); Carbon Dioxide 23.5 mmol/L (21.0-32.0); Chloride 84 mmol/L (98-108); Estimated Creatinine Clearance 133.79 ml/min (50-250); Glucose 115 mg/dL (70-99); Potassium 3.2 mmol/L (3.3-5.1); Troponin T High Sensitivity 14 ng/L (<=22)
--- NOTE | 2025-11-10 23:50 | ED.RN ---
CT CALLED FOR DELAY IN CT READ TIME. RESPONSE IT SHOULD BE READ SOON
[2025-11-10 23:55] LABS: Troponin T High Sens 2 HR 11 ng/L (<=22)
[2025-11-11] VITALS: BP 167/86; PULSE 61; RESP 19; O2SAT 98
[2025-11-11 00:15] VITALS: BP 167/85; PULSE 60; RESP 13; O2SAT 98
[2025-11-11 00:30] VITALS: BP 159/115; PULSE 69; RESP 26; O2SAT 97
[2025-11-11 01:10] VITALS: BP 135/88; PULSE 59; RESP 12; TEMP 37.2; O2SAT 97
== END 2025-11-11 01:24 | disposition home or self-care (01) ==
PROVIDERS: Emergency Provider Emergency Medicine; PCP Nurse Practitioner Family; Visit Provider Emergency Medicine
DX: I31.9 Disease of pericardium, unspecified (principal); E66.01 Morbid (severe) obesity due to excess calories; F17.210 Nicotine dependence, cigarettes, uncomplicated; Z68.37 Body mass index [BMI] 37.0-37.9, adult; Z85.72 Personal history of non-Hodgkin lymphomas
CPT/HCPCS: 71275; 80048; 84484; 85025; 93005; 96361; 96374; 96375; 99284; Q9967; A4216; J2405

== ENCOUNTER 2025-11-12 11:31 | Emergency (ER) | payer MEDICARE, MEDICAID, SELFPAY ==
[2025-11-12] VITALS (13 sets, daily range): BP systolic 132–187; BP diastolic 85–117; PULSE 63–78; RESP 22–26; TEMP 36.4; O2SAT 92–100; BMI 34.9
--- NOTE | 2025-11-12 12:02 | EKG12_ITS ---
Test Reason : Blood Pressure : */* mmHG Vent. Rate : 64 BPM Atrial Rate : 64 BPM P-R Int : 152 ms QRS Dur : 162 ms QT Int : 492 ms P-R-T Axes : 43 -58 2 degrees QTcB Int : 507 ms Normal sinus rhythm Right bundle branch block Left anterior fascicular block Bifascicular block Abnormal ECG Confirmed by Patrick Tian ([id number]), editor dictionary JORDIN RAMIREZ ([id number]) on 11/14/2025 10:27:33 AM Referred By: Confirmed By: Patrick Tian
--- NOTE | 2025-11-12 12:05 | ED.VIS.CHEST ---
HPI <Dr. Kevin Gallegos DO - Last Filed: 11/12/25 17:28> History of Present Illness Chief Complaint: Chest Pain Informant: patient Onset/Context/Timing Onset: Month(s) Activity at onset: gradual Timing: Waxes and wanes Quality: Positive for Pressure Location: Substernal Worsened By: Exertion Relieved By: Nothing Associated Symptoms: Positive for Nausea, Vomiting, Diaphoresis, Dyspnea, Cough and Lightheadedness; Negative for Fever, Acid Reflux or Palpitations Narrative Narrative: Patient presents with chest pain that has been waxing and waning for months. Patient describes it as pressure. Patient states it is over the substernal area. Patient states it is worse with any movement or activity. Patient states nothing seems to help with it. Patient admits to some nausea and vomiting. Patient admits to some shortness of breath and diaphoresis. Patient also admits to a cough. Patient admits to some lightheadedness but denies any syncope. Patient denies any palpitations. Patient was seen by his rock cutter and was referred to the emergency department for echocardiogram and transferred to [facility]. CVD Risk Factors: Positive for Hypertension, Hypercholesterolemia and Smoking; Negative for Diabetes or Family History 1' </=55 PE Risk Factors: Positive for Cancer; Negative for Recent Travel/Surgery, Recent Immobilization, Prior DVT or PE or OCP + Smoking + >/=35 PFSH <Dr. Kevin Gallegos, - Last Filed: 11/12/25 17:28> [facility] Medical History (Updated 11/12/25 @ 15:[address] Noé Ken, DO) Hyperlipidemia Pericarditis Essential (primary) hypertension History of CVA (cerebrovascular accident) Lymphadenopathy, generalized Emphysema, unspecified Wears glasses Loose, teeth Ambulates with cane Heartburn Gastric reflux Chronic cough Chest pain Back pain Arthritis Osteoarthritis of knees, bilateral Tobacco use disorder, continuous Encounter for screening for malignant neoplasm of lung Constipation Chronic pain Smoker Migraines TIA (transient ischemic attack) Morbid obesity Home Medications ?Medication ?Instructions ?Recorded ?Last Taken ?Type losartan 100 mg tablet 100 mg PO DAILY #30 tabs 05/05/25 11/11/25 Rx colchicine 0.6 mg capsule 0.6 mg PO BID 20 days #40 caps 11/07/25 11/11/25 Rx indomethacin 25 mg capsule 25 mg PO TIDCM 20 days #60 caps 11/07/25 11/11/25 Rx pantoprazole 40 mg tablet,delayed 40 mg PO DAILY 11/10/25 11/11/25 History release hydromorphone 2 mg tablet 2 mg PO Q6H PRN pain 7 days #28 11/11/25 11/12/25 Rx (Dilaudid) tabs ondansetron HCl 8 mg tablet 8 mg PO Q8H PRN Nausea 11/12/25 11/11/25 History Allergy/AdvReac Type Severity Reaction Status Date / Time No Known Allergies Allergy Verified 11/12/25 11:32 Family History Grandfather Cancer lung cancer Surgical History History of right knee joint replacement Social History Smoking Status: Current every day smoker tobacco type: cigarettes Tobacco: How many years used: 30 alcohol intake: never substance use type: other details: magic mushrooms for pain ROS <Dr. Kevin Gallegos, DO - Last Filed: 11/12/25 17:28> ROS ED Constitutional Constitutional ED: Reports sweats; Denies chills or fever(s) Eyes Eyes: Denies blurry vision or change in vision ENT ENT ED: Denies rhinorrhea or sore throat Cardiovascular Cardiovascular: Reports chest pain; Denies palpitations Respiratory/Chest Respiratory/Chest: Reports cough and dyspnea Gastrointestinal Gastrointestinal: Reports nausea and vomiting; Denies abdominal pain Genitourinary Genitourinary ED: Denies dysuria or hematuria Musculoskeletal Musculoskeletal: Denies back pain or neck pain Integumentary Denies abscess or rash Neurologic Neurologic: Denies headache(s) or weakness Allergic/Immunologic Allergic/Immunologic ED: Denies mouth swelling or urticaria EXAM <Dr. Kevin Gallegos, - Last Filed: 11/12/25 17:28> Physical Exam Const Vital Signs: 11/12/25 11:32 11/12/25 11:43 11/12/25 12:02 Temperature 97.6 F L Temperature Source Temporal Pulse Rate 77 Respiratory Rate 26 H Respiratory Effort Normal Non-Labored Blood Pressure 135/87 H Blood Pressure Mean 103 Pulse Ox 92 Oxygen Delivery Method Room Air Room Air Oxygen Flow Rate (L/min) 11/12/25 12:31 11/12/25 13:00 11/12/25 14:00 Temperature Temperature Source Pulse Rate 69 66 74 Respiratory Rate 22 H Respiratory Effort Blood Pressure 155/109 H 187/103 H 167/88 H Blood Pressure Mean 124 131 114 Pulse Ox 98 99 99 Oxygen Delivery Method Room Air Room Air Oxygen Flow Rate (L/min) 11/12/25 15:00 11/12/25 16:00 11/12/25 17:00 Temperature Temperature Source Pulse Rate 68 70 Respiratory Rate Respiratory Effort Blood Pressure 132/117 H 155/96 H 163/106 H Blood Pressure Mean 122 115 125 Pulse Ox 100 100 Oxygen Delivery Method Oxygen Flow Rate (L/min) 11/12/25 18:00 11/12/25 19:00 11/12/25 20:00 Temperature Temperature Source Pulse Rate 65 63 78 Respiratory Rate 24 H Respiratory Effort Blood Pressure 157/85 H 175/99 H 132/106 H Blood Pressure Mean 109 124 114 Pulse Ox 99 100 100 Oxygen Delivery Method Nasal Cannula Oxygen Flow Rate (L/min) 2 11/12/25 21:00 11/12/25 22:00 11/12/25 23:00 Temperature Temperature Source Pulse Rate 72 64 66 Respiratory Rate Respiratory Effort Blood Pressure 183/92 H 165/94 H 172/96 H Blood Pressure Mean 122 117 121 Pulse Ox 100 99 Oxygen Delivery Method Oxygen Flow Rate (L/min) 11/13/25 00:00 Temperature Temperature Source Pulse Rate 70 Respiratory Rate Respiratory Effort Blood Pressure 185/104 H Blood Pressure Mean 131 Pulse Ox 100 Oxygen Delivery Method Oxygen Flow Rate (L/min) Positive well nourished and well developed General Appearance ED: well developed and NAD HEENT Reports moist mucous membranes Neck supple and no JVD Resp normal respiratory effort and clear to auscultation bilaterally Cardio regular rate and regular rhythm GI soft to palpation, non-tender and non-distended Extremity General Extremety ED: Negative for edema or tenderness General Extremity: Negative for edema Neuro oriented x3, CN's II-XII intact bilaterally and no sensory deficits noted Sensorium / Orientation: awake and alert Motor Exam: strength 5/5 throughout Psych Mood & Affect: anxious <Dr. Lenny Aburto MD - Last Filed: 11/13/25 00:40> Physical Exam Const Vital Signs: 11/12/25 11:32 11/12/25 11:43 11/12/25 12:02 Temperature 97.6 F L Temperature Source Temporal Pulse Rate 77 Respiratory Rate 26 H Respiratory Effort Normal Non-Labored Blood Pressure 135/87 H Blood Pressure Mean 103 Pulse Ox 92 Oxygen Delivery Method Room Air Room Air Oxygen Flow Rate (L/min) 11/12/25 12:31 11/12/25 13:00 11/12/25 14:00 Temperature Temperature Source Pulse Rate 69 66 74 Respiratory Rate 22 H Respiratory Effort Blood Pressure 155/109 H 187/103 H 167/88 H Blood Pressure Mean 124 131 114 Pulse Ox 98 99 99 Oxygen Delivery Method Room Air Room Air Oxygen Flow Rate (L/min) 11/12/25 15:00 11/12/25 16:00 11/12/25 17:00 Temperature Temperature Source Pulse Rate 68 70 Respiratory Rate Respiratory Effort Blood Pressure 132/117 H 155/96 H 163/106 H Blood Pressure Mean 122 115 125 Pulse Ox 100 100 Oxygen Delivery Method Oxygen Flow Rate (L/min) 11/12/25 18:00 11/12/25 19:00 11/12/25 20:00 Temperature Temperature Source Pulse Rate 65 63 78 Respiratory Rate 24 H Respiratory Effort Blood Pressure 157/85 H 175/99 H 132/106 H Blood Pressure Mean 109 124 114 Pulse Ox 99 100 100 Oxygen Delivery Method Nasal Cannula Oxygen Flow Rate (L/min) 2 11/12/25 21:00 11/12/25 22:00 11/12/25 23:00 Temperature Temperature Source Pulse Rate 72 64 66 Respiratory Rate Respiratory Effort Blood Pressure 183/92 H 165/94 H 172/96 H Blood Pressure Mean 122 117 121 Pulse Ox 100 99 Oxygen Delivery Method Oxygen Flow Rate (L/min) 11/13/25 00:00 Temperature Temperature Source Pulse Rate 70 Respiratory Rate Respiratory Effort Blood Pressure 185/104 H Blood Pressure Mean 131 Pulse Ox 100 Oxygen Delivery Method Oxygen Flow Rate (L/min) MDM <Dr. Kevin Gallegos, DO - Last Filed: 11/12/25 17:28> [facility] MDM Narrative Medical decision making narrative: Differential diagnose includes pericardial effusion, pericardial tamponade, electrolyte abnormality, cardiac dysrhythmia, cardiac ischemia, pneumonia, bronchitis, metastatic cancer. Chest x-ray will be obtained to assess for pneumonia, bronchitis, and congestive heart failure. EKG will be obtained to assess for cardiac dysrhythmia and cardiac ischemia. CBC will be obtained to assess for leukocytosis and anemia. Basic metabolic profile will be obtained to assess for electrolyte abnormality and renal function. High-sensitivity troponin will be obtained to assess for cardiac ischemia. 2-hour repeat high-sensitivity troponin will be obtained to assess for ongoing cardiac ischemia. Limited echocardiogram will be obtained to assess for pericardial effusion and pericardial tamponade. Lab Data Attestation: I reviewed the patient's lab results. Lab results narrative: CBC was reviewed and was within normal limits. Basic metabolic profile was reviewed. Sodium was slightly low at 125, potassium was 3.1, chloride was 85. CO2 was normal. Glucose was normal. Initial high-sensitivity troponin was reviewed and was normal at 12. 2-hour repeat high-sensitivity troponin was reviewed and was also normal at 12. 4-hour repeat high-sensitivity troponin was reviewed and was also 12. Labs: Laboratory Results - last 24 hr 11/12/25 11/12/25 11/12/25 12:05 14:04 16:06 WBC 5.8 RBC 4.81 Hgb 13.6 Hct 37.9 L MCV 78.8 L MCH 28.3 MCHC 35.9 RDW Std Deviation 40.3 RDW Coeff of Senia 14.0 Plt Count 254 MPV 9.8 Immature Gran % (Auto) 0.700 Neut % (Auto) 69.7 Lymph % (Auto) 16.4 L [place] % (Auto) 12.4 H Eos % (Auto) 0.3 Baso % (Auto) 0.5 Absolute Neuts (auto) 4.1 Absolute Lymphs (auto) 0.95 Nucleated RBC % 0 Sodium 125 L Potassium 3.1 L Chloride 85 L Carbon Dioxide 23.2 Anion Gap 17 H BUN 7 Creatinine 0.74 Est GFR (MDRD) Non-Af 106 BUN/Creatinine Ratio 9.3 L Glucose 94 Calcium 9.5 Troponin T High Sens 12 D Troponin T Hi Sens 2 Hr 12 Troponin T Hi Sens 4Hr 12 Radiography Diagnostic Testing: Clinical Impression(s) from Imaging Studies Echocardiogram 11/12/25 12:14 Interpretation Summary Limited echocardiogram performed in emergency department for surveillance of pericardial effusion There is a moderate-sized pericardial effusion measuring 1.5 cm, which is increased from prior study on 11/04/2025 Left ventricular EF by Yañez's biplane is greater then 70% No regional wall motion abnormalities noted No definite evidence of pretamponade physiology on this limited echocardiogram. Ordering Physician: Kevin Gallegos Referring Physician: Deborah Roa Performed By: Taylor Mccauley, MARIAH, RVT Chest X-Ray 11/12/25 13:00 IMPRESSION: The examination is limited by hypoinflation, AP portable technique, patient motion, and body habitus. Marked widening of the mediastinum appear similar to the prior study, given differences in technique. The cardiac size is probably unchanged. Although limited evaluation as noted, no acute pneumonic process is clearly appreciated. No pleural effusion or pneumothorax is noted. No interval osseous changes seen Reading Location: [place] [address] Echocardiogram was obtained. There is a moderate-sized pericardial effusion measuring 1.5 cm which is increased from previous study on 11/04/2025. Ejection fraction is 70%. There is no evidence of pericardial tamponade. This was interpreted by the rock cutter. Portable 1 view chest x-ray was obtained. On my independent interpretation, lung cardoso are clear. There is cardiomegaly. There is widening of the mediastinum which is unchanged from previous x-ray. Bony thorax is normal. There is no acute process noted. Radiologist also interpreted the x-ray and agrees. EKG Initial EKG: Attestation: I personally reviewed and interpreted this EKG as follows: Interpretation: Sinus Rhythm (64), No Acute Injury Pattern, RBBB and LAFB Comments: EKG was obtained. On my independent interpretation, it showed a normal sinus rhythm with a rate of 64. ID interval, QRS interval, and QTc intervals were all normal. There is left axis deviation at -58. There are no acute ST or T wave changes. Prior EKG tracings: available for review Prior: Unchanged (11/10/2025) Treatment and Re-Evaluation :: Patient was given aspirin, morphine, and Zofran. Patient was given a repeat dose of morphine and Zofran. Case was discussed with Dr. Ken from cardiology. He recommended transferring the patient to [facility] where he can see the inpatient oncology as well as have his pericardial effusion drained. Case was discussed with Dr. Conner. He stated the patient has an appointment with him tomorrow. 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 Case was discussed with Dr. Ken again. He noted that the effusion has gotten bigger but there is no evidence of pericardial tamponade. He recommended transferring the patient to [facility] for treatment of his pericardial effusion. Case was discussed with the transfer line. <Dr. Lenny Aburto MD - Last Filed: 11/13/25 00:40> [facility] Lab Data Labs: Laboratory Results - last 24 hr 11/12/25 11/12/25 11/12/25 12:05 14:04 16:06 WBC 5.8 RBC 4.81 Hgb 13.6 Hct 37.9 L MCV 78.8 L MCH 28.3 MCHC 35.9 RDW Std Deviation 40.3 RDW Coeff of Senia 14.0 Plt Count 254 MPV 9.8 Immature Gran % (Auto) 0.700 Neut % (Auto) 69.7 Lymph % (Auto) 16.4 L [place] % (Auto) 12.4 H Eos % (Auto) 0.3 Baso % (Auto) 0.5 Absolute Neuts (auto) 4.1 Absolute Lymphs (auto) 0.95 Nucleated RBC % 0 Sodium 125 L Potassium 3.1 L Chloride 85 L Carbon Dioxide 23.2 Anion Gap 17 H BUN 7 Creatinine 0.74 Est GFR (MDRD) Non-Af 106 BUN/Creatinine Ratio 9.3 L Glucose 94 Calcium 9.5 Troponin T High Sens 12 D Troponin T Hi Sens 2 Hr 12 Troponin T Hi Sens 4Hr 12 Radiography Diagnostic Testing: Clinical Impression(s) from Imaging Studies Echocardiogram 11/12/25 12:14 Interpretation Summary Limited echocardiogram performed in emergency department for surveillance of pericardial effusion There is a moderate-sized pericardial effusion measuring 1.5 cm, which is increased from prior study on 11/04/2025 Left ventricular EF by Yañez's biplane is greater then 70% No regional wall motion abnormalities noted No definite evidence of pretamponade physiology on this limited echocardiogram. Ordering Physician: Kevin Gallegos Referring Physician: Deborah Roa Performed By: Taylor Mccauley, RDCS, RVT Chest X-Ray 11/12/25 13:00 IMPRESSION: The examination is limited by hypoinflation, AP portable technique, patient motion, and body habitus. Marked widening of the mediastinum appear similar to the prior study, given differences in technique. The cardiac size is probably unchanged. Although limited evaluation as noted, no acute pneumonic process is clearly appreciated. No pleural effusion or pneumothorax is noted. No interval osseous changes seen Reading Location: [facility]- Treatment and Re-Evaluation Comments:: Patient has been accepted at [facility]. There is debate on what services he may go on because of bed availability. Most likely he will be admitted to oncology and they have no beds with consultation to cardiology and cardiothoracic surgery. I was informed at 1957 that patient is having increasing pain and nausea. Dilaudid and Zofran was ordered for him. Spoke with the night hospitalist Dr. Simone Cespedes. Per his discussion with Dr. 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 Patient is still awaiting bed. The hospitalist informing that he will not admit patient to the hospital. Second dose of Dilaudid was ordered. Order was placed for every 3 hours as needed pain. The night physician was made aware of circumstances and reason why he is down here. Discharge Plan Triage Chief Complaint: Chest Pain ED Provider: Kevin Gallegso Dx/Rx/DC Orders Prescriptions: No Action losartan 100 mg Tablet 100 mg PO DAILY Qty: 30 0RF ondansetron HCl 8 mg Tablet 8 mg PO Q8H PRN (Reason: Nausea) indomethacin 25 mg Capsule 25 mg PO TIDCM 20 Days Qty: 60 0RF colchicine 0.6 mg Capsule 0.6 mg PO BID 20 Days Qty: 40 0RF pantoprazole 40 mg tablet,delayed release (DR/EC) 40 mg PO DAILY hydromorphone [Dilaudid] 2 mg tablet 2 mg PO Q6H PRN (Reason: pain) 7 Days Qty: 28 0RF Primary Care Provider: Deborah Roa Referrals: Deborah Roa, HOME ECONOMICS TEACHER-C [Primary Care Provider, Family Practice] Print Language: Tamazight
--- NOTE | 2025-11-12 12:14 | ECHOL_ITS ---
Reason For Study Reason For Study: CHEST PAIN Procedure This was a limited 2D transthoracic echocardiogram. The study was technically difficult. Contrast injection was performed. Exam performed portable in ED. MMode/2D Measurements & Calculations LVIDd: 4.5 cm IVSd: 1.5 cm Ao root diam: 3.5 cm LVIDs: 3.4 cm LVPWd: 1.3 cm FS: 25.9 % asc Aorta Diam: 3.7 cm LAV(MOD-bp): 66.7 ml LAV(MOD-sp2): 67.2 ml LVAd ap4: 29.4 cm2 LAV(MOD-sp4): 67.0 ml LVLd ap4: 8.4 cm EDV(MOD-sp4): 84.2 ml EDV(sp4-el): 87.4 ml LVAs ap4: 12.9 cm2 LVLs ap4: 6.7 cm ESV(MOD-sp4): 21.1 ml ESV(sp4-el): 21.2 ml EF(MOD-sp4): 74.9 % EF(sp4-el): 75.8 % LVAd ap2: 25.4 cm2 SV(MOD-sp4): 63.1 ml LVLd ap2: 8.2 cm EDV(MOD-bp): 74.6 ml EDV(MOD-sp2): 64.6 ml ESV(MOD-bp): 19.7 ml EDV(sp2-el): 66.5 ml EF(MOD-bp): 73.6 % LVAs ap2: 12.0 cm2 LVLs ap2: 6.6 cm ESV(MOD-sp2): 18.2 ml ESV(sp2-el): 18.6 ml EF(MOD-sp2): 71.8 % SV(MOD-sp2): 46.4 ml SV(sp4-el): 66.2 ml LA A4 area: 21.2 cm2 LA dimension(2D): 4.6 cm ECHO/Echo Limited w/Contrast Interpretation Summary Limited echocardiogram performed in emergency department for surveillance of pe ricardial effusion There is a moderate-sized pericardial effusion measuring 1.5 cm, which is incre ased from prior study on 11/04/2025 Left ventricular EF by Yañez's biplane is greater then 70% No regional wall motion abnormalities noted No definite evidence of pretamponade physiology on this limited echocardiogram. Ordering Physician: Kevin Gallegos Referring Physician: Deborah Roa Performed By: Taylor Mccauley, MARIAH, RVT
[2025-11-12 12:23] LABS: Hematocrit 37.9 % (40-54); Hemoglobin 13.6 g/dL (13.0-16.5); Immature Granulocytes Count 0.040 X10^3/uL (0.0-0.0); Mean Corp Hgb Conc 35.9 g/dL (32-36); Mean Corpuscular Volume 78.8 fL (80-94); Mean Platelet Vol. 9.8 fl (6.2-12.0); NRBC Flagged by Analyzer 0 % (0-5); Platelet Count 254 K/mm3 (150-450); RBC Distribution Width CV 14.0 % (11.6-14.6); RBC Distribution Width SD 40.3 fl (35.1-43.9); Red Blood Count 4.81 M/mm3 (4.6-6.2); White Blood Count 5.8 K/mm3 (4.4-11.0)
--- NOTE | 2025-11-12 13:00 | RAD_ITS ---
PROCEDURE: CHEST 1 VIEW (PORTABLE) 11/12/2025 REASON FOR EXAM: CHEST PAIN TECHNIQUE: Frontal view of the chest. COMPARISON: Chest x-ray of 11/03/2025. RAD/Chest 1 View (Portable) IMPRESSION: The examination is limited by hypoinflation, AP portable technique, patient mot ion, and body habitus. Marked widening of the mediastinum appear similar to the prior study, given dif ferences in technique. The cardiac size is probably unchanged. Although limited evaluation as noted, no acute pneumonic process is clearly francia reciated. No pleural effusion or pneumothorax is noted. No interval osseous changes seen Reading Location: [place] [id number]
[2025-11-12 13:18] LABS: Anion Gap 17 (5-15); BUN 7 mg/dL (4-19); BUN/Creat Ratio 9.3 RATIO (10-20); Calcium,Total 9.5 mg/dL (7.6-11.0); Carbon Dioxide 23.2 mmol/L (21.0-32.0); Chloride 85 mmol/L (98-108); Glucose 94 mg/dL (70-99); Potassium 3.1 mmol/L (3.3-5.1); Troponin T High Sensitivity 12 ng/L (<=22)
[2025-11-12 14:39] LABS: Troponin T High Sens 2 HR 12 ng/L (<=22)
--- NOTE | 2025-11-12 15:02 | PCM.CONS.C ---
Assessment & Plan Assessment/Plan (1) Mediastinal lymphadenopathy: PLAN: - Concerning for lymphoma, with compression of great vessels. 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 - Etiology of pericardial effusion is suspected malignant; there is possible spread to the pericardial space, around the right ventricle on echocardiogram. There is also concern for compression from mediastinal tumor mass on lymphatic drainage, making this suspected neoplastic effusion at risk for progression RECOMMENDATIONS - Recommend transfer to [facility] for higher level of care, monitoring, and consideration of drainage/chemotherapy - Continue treatment with NSAIDs, colchicine, additional pain meds as needed HPI Consult Data Date of Consult: 11/12/25 HPI Narrative Reason for Consultation: Chest pain HPI Narrative: LYNNETTE GONG, is a 55 M with a past medical history of hypertension, GERD, COPD, obesity who presents to [place] ED for complaints of chest pain. Patient was recently discharged last week for intractable chest pain. 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 CT chest and both 10/16/2025 and 11/15/2025 show enlarged, confluent lymph nodes in the mediastinum including prevascular, preaortic, anterior mediastinal, and left subclavian. There is a noted mass effect upon the left pulmonary artery. Patient had pericardial effusion noted on CT, which was followed by echocardiogram which showed a moderate pericardial effusion without evidence of pretamponade physiology. Patient was discharged with oncology follow-up as well as colchicine and indomethacin for suspected pericardial component. Patient was to have outpatient cardiology visit today on 11/12/2025, but again was having complaints of intractable chest pain and was referred to ED for evaluation. Patient upon ED arrival was hemodynamically stable, heart rates 60s to 70s with blood pressure 130s to 160s over 80s to 90s. Patient seen at bedside. He admits his chest pain is intractable, constant, unrelenting, and a 9 or 10 at all times over the past 3 months. Admits it is worse sometimes when laying on his back. He endorses all the symptoms started approximately 6 months ago, but have slowly progressed. 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 He feels his pain is now a 6 out of 10 after IV opiates. He says that he would not like to be discharged because he does not believe that he is going to make it back to the hospital without calling EMS due to significant pain. Repeat echocardiogram today shows effusion progressing in size to approximately 1.5 cm. No definite signs of tamponade physiology. [facility] Medical History (Updated 11/12/25 @ 15:[address] Noé Ken DO) Hyperlipidemia Pericarditis Essential (primary) hypertension History of CVA (cerebrovascular accident) Lymphadenopathy, generalized Emphysema, unspecified Wears glasses Loose, teeth Ambulates with cane Heartburn Gastric reflux Chronic cough Chest pain Back pain Arthritis Osteoarthritis of knees, bilateral Tobacco use disorder, continuous Encounter for screening for malignant neoplasm of lung Constipation Chronic pain Smoker Migraines TIA (transient ischemic attack) Morbid obesity Home Medications ?Medication ?Instructions ?Recorded ?Last Taken ?Type losartan 100 mg tablet 100 mg PO DAILY #30 tabs 05/05/25 11/11/25 Rx colchicine 0.6 mg capsule 0.6 mg PO BID 20 days #40 caps 11/07/25 11/11/25 Rx indomethacin 25 mg capsule 25 mg PO TIDCM 20 days #60 caps 11/07/25 11/11/25 Rx pantoprazole 40 mg tablet,delayed 40 mg PO DAILY 11/10/25 11/11/25 History release hydromorphone 2 mg tablet 2 mg PO Q6H PRN pain 7 days #28 11/11/25 11/12/25 Rx (Dilaudid) tabs ondansetron HCl 8 mg tablet 8 mg PO Q8H PRN Nausea 11/12/25 11/11/25 History Allergy/AdvReac Type Severity Reaction Status Date / Time No Known Allergies Allergy Verified 11/12/25 11:32 Family History Grandfather Cancer lung cancer Surgical History History of right knee joint replacement Social History Smoking Status: Current every day smoker tobacco type: cigarettes Tobacco: How many years used: 30 alcohol intake: never substance use type: other details: magic mushrooms for pain ROS ROS Narrative 14 point ROS reviewed, and negative will specified in HPI above Physical Exam Narrative ?Gen: A&Ox3, ?HEENT: Normocephalic/Atraumatic, MMM ?Neck: Supple, no JVD ?Pulm: Normal work of breathing, breath sounds limited bilaterally ?CV: RRR, normal S1/S2, no m/r/g ?Abd: Soft, NT/ND ?Extr: Warm to touch, no LE edema, distal pulses intact and symmetric in upper and lower extremities ?Neuro: No gross focal deficits, normal speech ?Psych: Normal affect, answers questions appropriately Objective Data Vital Signs: Vital Signs Temp Pulse Resp BP Pulse Ox O2 Del Method 97.6 F L 74 22 H 167/88 H 99 Room Air 11/12/25 11:32 11/12/25 14:00 11/12/25 14:00 11/12/25 14:00 11/12/25 14:00 11/12/25 14:00 Oxygen Delivery Method Room Air Weight: 243 lb 13.3 oz Body Mass Index (BMI) 34.9 Lab / Micro Data 11/12/25 12:05 11/12/25 12:05 Labs: Laboratory Results - last 24 hr 11/12/25 12:05: WBC 5.8, RBC 4.81, Hgb 13.6, Hct 37.9 L, MCV 78.8 L, MCH 28.3, MCHC 35.9, RDW Std Deviation 40.3, RDW Coeff of Senia 14.0, Plt Count 254, MPV 9.8, Immature Gran % (Auto) 0.700, Neut % (Auto) 69.7, Lymph % (Auto) 16.4 L, Gonzales % (Auto) 12.4 H, Eos % (Auto) 0.3, Baso % (Auto) 0.5, Absolute Neuts (auto) 4.1, Absolute Lymphs (auto) 0.95, Nucleated RBC % 0, Sodium 125 L, Potassium 3.1 L, Chloride 85 L, Carbon Dioxide 23.2, Anion Gap 17 H, BUN 7, Creatinine 0.74, Est GFR (MDRD) Non-Af 106, BUN/Creatinine Ratio 9.3 L, Glucose 94, Calcium 9.5, Troponin T High Sens 12 D 11/12/25 14:04: Troponin T Hi Sens 2 Hr 12 Cardiology Labs/Tests 11/12/25 12:05: WBC 5.8, RBC 4.81, Hgb 13.6, Hct 37.9 L, MCV 78.8 L, MCH 28.3, MCHC 35.9, Plt Count 254, MPV 9.8, Immature Gran % (Auto) 0.700, Neut % (Auto) 69.7, Lymph % (Auto) 16.4 L, Gonzales % (Auto) 12.4 H, Eos % (Auto) 0.3, Baso % (Auto) 0.5, Absolute Neuts (auto) 4.1, Nucleated RBC % 0, Sodium 125 L, Potassium 3.1 L, Chloride 85 L, Carbon Dioxide 23.2, Anion Gap 17 H, BUN 7, Creatinine 0.74, Est GFR (MDRD) Non-Af 106, BUN/Creatinine Ratio 9.3 L, Glucose 94, Calcium 9.5 Rhythm: EKG: ECHO: Stress Test: Cardiac Cath: PCI: CT Surgery: Holter monitor: EPS: PPM: CXR: Chest CT Scan: Radiography Diagnostic Testing: Radiology Impression Chest X-Ray 11/12/25 13:00 IMPRESSION: The examination is limited by hypoinflation, AP portable technique, patient motion, and body habitus. Marked widening of the mediastinum appear similar to the prior study, given differences in technique. The cardiac size is probably unchanged. Although limited evaluation as noted, no acute pneumonic process is clearly appreciated. No pleural effusion or pneumothorax is noted. No interval osseous changes seen Reading Location: [facility] Risk Score for UA/STEMI Assesmment (YES = 1) Risk Stratification Applicable: No
[2025-11-12 16:29] LABS: Troponin T High Sens 4 HR 12 ng/L (<=22)
[2025-11-12] MEDS: Nicotine (PBKC) 21 MG Patch TD (17:33)
--- NOTE | 2025-11-12 19:39 | PCA ---
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 TORSTEN WITH [facility] ANSWERS AND SAID PT IS TECHNICALLY ACCEPTED, JUST NOT TO A SERVICE YET. WE ARE WAITING ON ONCOLOGY AND A BED. THEY DID SAY IT ABSOLUTELY WILL NOT BE TONIGHT. STILL WAITINNG AN ACCEPTING SERVICE, THEN WAIT BED.
--- OUTSIDE RECORDS SUMMARY | 2025-11-12 19:43 | XMS RPT_ITS | CCD ---
Author Organization [facility] Partnership [facility] Care Team Providers Care Top Precipitator Operator Helper Name Role Phone Dr. OSIRIS BARRETT Attending Un available Tony Altman Attending [facility] PCP, States None Referring Unavailable Dr. Allan Jc DO Emergency Provider Crispin WHOLESALE MANAGER-C, Deborah Primary Care Provider Dr. Meseret Minor DO Admit Provider Dr. Meseret Minor DO Attending Provider Dr. Meseret Minor DO Other Provider Dr. Meseret Minor DO Other Provider Dr. Kevin Singh DO Attending Provider Dr. Meseret Minor DO Attending Provider Dr. Kevin Singh DO Other Provider [phone] [facility] Care Physician, No Primary Referring Provider Un available Dr. Betty Steel MD Attending Provider Crispin WHOLESALE MANAGER-C, Deborah Attending Provider Crispin WHOLESALE MANAGER-C, Deborah Referring Provider Jorgito WHOLESALE MANAGER-C, Anay Attending Provider Jorgito WHOLESALE MANAGER-C, Anay Referring Provider Dr. Juan Rush DO Emergency Provider [phone] Juan Rush DO Attending Provider Jadon WHOLESALE MANAGER-C, Elizabet Attending Provider Jadon WHOLESALE MANAGER-C, Elizabet Referring Provider Jorgito WHOLESALE MANAGER-C, Anay Referring Provider Crispin WHOLESALE MANAGER-C, Deborah Referring Provider [phone] Allan Jc DO Emergency Department Physic stephen Crispin WHOLESALE MANAGER-C, Deborah Primary Care Physician Iván BRYANT, Dr. Carl Admitting Physician Iván BRYANT, Dr. Carl Nurse Practitioner Samantha BRYANT, Dr. Brown Attending Physician Iván BRYANT, Dr. Carl Attending Physician Samantha BRYANT, Dr. Brown Nurse Practitioner Milvia GALLOWAY, Dr. Hernández Attending Physician Crispin WHOLESALE MANAGER-C, Deborah Attending Physician Jorgito WHOLESALE MANAGER-C, Anay Attending Physician Dr. Juan Rush DO Attending Physician Dr. Juan Rush DO Emergency Department Physician Jaodn WHOLESALE MANAGER-C, Elizabet Attending Physician Debbie Sinha Attending [...] Unavailable Crispin, Deborah Primary Care Unavailable Jorgito WHOLESALE MANAGER, Anay Referring Unavailable Jorgito WHOLESALE MANAGER, Anay Attending Unavailable Crispin, Deborah Attending [...] Unavailable Crispin, Deborah Primary Care Unavailable Jorgito WHOLESALE MANAGER, Anay Referring Unavailable Jorgito WHOLESALE MANAGER, Anay Attending Unavailable Crispin WHOLESALE MANAGER-C, Deborah Primary Care Physician Jorgito WHOLESALE MANAGER-C, Anay Attending Physician Jorgito WHOLESALE MANAGER-C, Anay Referring Provider Crispin WHOLESALE MANAGER-C, Deborah Attending Physician Crispin WHOLESALE MANAGER-C, Deborah Referring Provider Dr. Juan Rush DO Attending Physician Dr. Juan Rush DO Emergency Department Physician Jadon DIAZ-Elizabet Matute Attending Physician Jadon WHOLESALE MANAGER-CElizabet Referring Provider Debbie Sinha Attending Physician [phone] Tito BRYANT Attending Physician [phone] Tito BRYANT Nurse Practitioner Debbie Sinha Referring Provider [phone] Medications Current Medications Medication Drug Class(es) Dates [...] Start: 07-16-2025 take 1 capsule by mo [facility] once daily Docusate Sodium (Stool Softener) [...] by mouth 30 minutes before mealtime nystatin 108354 unt/ml oral suspension (2 sources) Polyene Antifungal [...] September 15, 2025 12:43pm polyethylene glycol 3350 07702 mg powder for oral solution (7 sources) [...] Adrianne Bey on 09-30-2025 Surgical pathology study [facility] Absolute lymphocyte countOrd ered By: Debbie Garcia on 09-23-2025 Lymphocytes Auto (Unsp spec) [#/Vol] 1.85 10*3/uL 0.83-4.51 [facility] Absolute neutrophil countOrd ered By: Debbie Garcia on 09-23-2025 Neutrophils (Bld) [#/Vol] 5.0 10*3/uL 2.0-7.7 [facility] Anion gap in Serum or Plasma Ordered By: Debbie Garcia on 09-23-2025 Anion gap [Moles/Vol] 13 mmol/L 5- [facility] Automated lymphocyte count a s percentage of total leukocytesOrdered By: Debbie Garcia on 09-23-2025 Lymphocytes/100 WBC Auto (Unsp spec) 23.2 % - [facility] BUN/creatinine ratioOrdered By: Debbie Garcia on 09-23-2025 Urea nitrogen/Creatinine [Mass ratio] 6.9 mg/mg Low - [facility] Basophil percentageOrdered B y: Debbie Garcia on 09-23-2025 Basophils/100 WBC (Bld) 0.9 % 0-1 [facility] Bilirubin, totalOrdered By: Debbie Garcia on 09-23-2025 Bilirubin [Mass/Vol] 0.46 mg/dL 0.00-1.30 [facility] CBC W/Diff, Automatedon 08-28 Absolute Lymph 1.85 X10 3/uL Normal 0.83-4.51 [facility] Comment on above: Performed By: #### L 500.2500, L501.4021, L100.0100 #### [facility] [address] [place], [address] Absolute Neut 5.0 X10 3/uL Normal 2.0-7.7 [facility] Comment on above: Performed By: #### L 500.2500, L501.4021, L100.0100 #### [facility] [address] [place], [address] Basophils/100 WBC (Bld) 0.9 % Normal 0-1 [facility] Comment on above: Performed By: #### L 500.2500, L501.4021, L100.0100 #### [facility] [address] [place], [address] Eosinophils/100 WBC (Bld) 1.3 % Normal 0-5 [facility] Comment on above: Performed By: #### L 500.2500, L501.4021, L100.0100 #### [facility] [address] [place], [address] Erythrocyte distribution width (RBC) [Ratio] 12.6 % Normal 11.6-14.6 [facility] Comment on above: Performed By: #### L 500.2500, L501.4021, L100.0100 #### [facility] [address] [place], [address] Hematocrit (Bld) [Volume fraction] 37.4 % Low 40-54 [facility] Comment on above: Performed By: #### L 500.2500, L501.4021, L100.0100 #### [facility] [address] [place], [address] Hemoglobin (Bld) [Mass/Vol] 13.6 g/dL Normal 13.0-16.5 [facility] Comment on above: Performed By: #### L 500.2500, L501.4021, L100.0100 #### [facility] [address] [place], [address] IG% 0.500 Normal 0.0-0.9 [facility] Comment on above: Result Comment: IG% - Immature Granulocytes (promyelocytes, myelocytes and metamyelocytes) > 1% indicates that a LEFT SHIFT is Present. Performed By: #### L 500.2500, L501.4021, L100.0100 #### [facility] [address] [place], [address] Lymphocytes/100 WBC (Bld) 23.2 % Normal 19-41 [facility] Comment on above: Performed By: #### L 500.2500, L501.4021, L100.0100 #### [facility] [address] [place], [address] MCH (RBC) [Entitic mass] 29.1 pg Normal 27.0-32.0 [facility] Comment on above: Performed By: #### L 500.2500, L501.4021, L100.0100 #### [facility] [address] [place], [address] MCHC (RBC) [Mass/Vol] 36.4 g/dL High 32-36 [facility] Comment on above: Performed By: #### L 500.2500, L501.4021, L100.0100 #### [facility] [address] [place], [address] MCV (RBC) [Entitic vol] 79.9 fL Low 80-94 [facility] Comment on above: Performed By: #### L 500.2500, L501.4021, L100.0100 #### [facility] [address] [place], [address] Monocytes/100 WBC (Bld) 11.4 % High 0-10 [facility] Comment on above: Performed By: #### L 500.2500, L501.4021, L100.0100 #### [facility] [address] [place], [address] Neutrophils/100 WBC (Bld) 62.7 % Normal 47-70 [facility] Comment on above: Performed By: #### L 500.2500, L501.4021, L100.0100 #### [facility] [address] [place], [address] Nucleated RBC (Bld) [#/Vol] 0 10*3/uL Normal 0-5 [facility] Comment on above: Performed By: #### L 500.2500, L501.4021, L100.0100 #### [facility] [address] [place], [address] Platelet mean volume (Bld) [Entitic vol] 9.0 fL Normal 6.2-12.0 [facility] Comment on above: Performed By: #### L 500.2500, L501.4021, L100.0100 #### [facility] [address] [place], [address] Platelets (Bld) [#/Vol] 331 10*3/uL Normal 150-450 [facility] Comment on above: Performed By: #### L 500.2500, L501.4021, L100.0100 #### [facility] [address] [place], [address] RBC (Bld) [#/Vol] 4.68 10*6/uL Normal 4.6-6.2 [facility] Comment on above: Performed By: #### L 500.2500, L501.4021, L100.0100 #### [facility] [address] [place], [address] RDW SD 35.8 fl Normal 35.1-43.9 [facility] Comment on above: Performed By: #### L 500.2500, L501.4021, L100.0100 #### [facility] [address] [place], [address] WBC (Bld) [#/Vol] 8.0 10*3/uL Normal 4.4-11.0 [facility] Comment on above: Performed By: #### L 500.2500, L501.4021, L100.0100 #### [facility] [address] [place], [address] Carbon dioxide, total [Moles /volume] in Central venous bloodOrdered By: Debbie Garcia on 09-23-2025 CO2 [Moles/Vol] 26.9 mmol/L 21.0-32.0 [facility] Chloride assayOrdered By: Francisca Garcia on 09-23-2025 Chloride [Moles/Vol] 88 mmol/L Low 98-108 [facility] Comprehensive Metabolic Prof ilon 09-23-2025 Albumin [Mass/Vol] 4.2 g/dL Normal 3.5-5.0 [facility] Comment on above: Performed By: #### L 500.2500, L501.4021, L100.0100 #### [facility] [address] [place], [address] Albumin/Globulin [Mass ratio] 1.3 {ratio} Normal 0.9-2.4 [facility] Comment on above: Performed By: #### L 500.2500, L501.4021, L100.0100 #### [facility] [address] [place], [address] ALK PHOS 61 U/L Normal 40-129 [facility] Comment on above: Performed By: #### L 500.2500, L501.4021, L100.0100 #### [facility] [address] [place], [address] ALT [Catalytic activity/Vol] 10 U/L Normal <=46 [facility] Comment on above: Performed By: #### L 500.2500, L501.4021, L100.0100 #### [facility] [address] [place], [address] AST [Catalytic activity/Vol] 26 U/L Normal <=37 [facility] Comment on above: Performed By: #### L 500.2500, L501.4021, L100.0100 #### [facility] [address] [place], [address] Bilirubin [Mass/Vol] 0.46 mg/dL Normal 0.00-1.30 [facility] Comment on above: Performed By: #### L 500.2500, L501.4021, L100.0100 #### [facility] [address] [place], [address] BUN/CRE 6.9 RATIO Low 10-20 [facility] Comment on above: Performed By: #### L 500.2500, L501.4021, L100.0100 #### [facility] [address] [place], [address] Calcium [Mass/Vol] 9.4 mg/dL Normal 7.6-11.0 [facility] Comment on above: Performed By: #### L 500.2500, L501.4021, L100.0100 #### [facility] [address] [place], [address] Chloride [Moles/Vol] 88 mmol/L Low 98-108 [facility] Comment on above: Performed By: #### L 500.2500, L501.4021, L100.0100 #### [facility] [address] [place], [address] CO2 [Moles/Vol] 26.9 mmol/L Normal 21.0-32.0 [facility] Comment on above: Performed By: #### L 500.2500, L501.4021, L100.0100 #### [facility] [address] [place], [address] Creatinine [Mass/Vol] 0.79 mg/dL Normal 0.70-1.20 [facility] Comment on above: Performed By: #### L 500.2500, L501.4021, L100.0100 #### [facility] [address] [place], [address] GAP 13 Normal 5-15 [facility] Comment on above: Performed By: #### L 500.2500, L501.4021, L100.0100 #### [facility] [address] [place], [address] GFR/1.73 sq M.predicted among non-blacks MDRD (S/P/Bld) [Vol rate/Area] 104 mL/min/{1.73_m2} Normal >60 [facility] Comment on above: Result Comment: mL/m in/1.73m2 CKD-EPI Creatinine Equation (2020) Performed By: #### L 500.2500, L501.4021, L100.0100 #### [facility] [address] [place], [address] Globulin (S) [Mass/Vol] 3.2 g/dL Normal 2.2-4.[address] [facility] Comment on above: Performed By: #### L 500.2500, L501.4021, L100.0100 #### [facility] [address] [place], [address] Glucose [Mass/Vol] 92 mg/dL Normal 70-99 [facility] Comment on above: Performed By: #### L 500.2500, L501.4021, L100.0100 #### [facility] [address] [place], [address] Potassium [Moles/Vol] 3.2 mmol/L Low 3.3-5.1 [facility] Comment on above: Performed By: #### L 500.2500, L501.4021, L100.0100 #### [facility] [address] [place], [address] Sodium [Moles/Vol] 128 mmol/L Low 133-145 [facility] Comment on above: Performed By: #### L 500.2500, L501.4021, L100.0100 #### [facility] [address] [place], [address] T PROT 7.4 g/dL Normal 5.9-8.4 [facility] Comment on above: Performed By: #### L 500.2500, L501.4021, L100.0100 #### [facility] [address] [place], [address] Urea nitrogen [Mass/Vol] 5 mg/dL Normal 4-19 [facility] Comment on above: Performed By: #### L 500.2500, L501.4021, L100.0100 #### [facility] [address] [place], [address] Eosinophil percentageOrdered By: Debbie Garcia on 09-23-2025 Eosinophils/100 WBC (Bld) 1.3 % 0-5 [facility] Erythrocyte distribution wid th ratioOrdered By: Debbie Garcia on 09-23-2025 Erythrocyte distribution width (RBC) [Ratio] 12.6 % 11.6-14.6 [facility] Erythrocyte distribution wid th standard deviationOrdered By: Debbie Garcia on 09-23-2025 Erythrocyte distribution width (RBC) [Ratio] 35.8 fl 35.1-43.9 [facility] Gastroenterology Visit Repor ton 09-23-2025 Gastroenterology Visit Report [facility] [address] [place] [address] OFFICE VISIT Date of Service: 09/23/25 MR#: [id number] Acct: [id number] Name: LYNNETTE GONG Rep #: [id number] : 1970 Provider: LANA Adna Age/Sex: 55/M Location: [facility] Status: Signed Intake Vital Signs 08/14/25 [...] and comfortable Nutritional Appearance: obese Orientation: alert HENMO Head: normal to inspection Eyes General: appearance [...] these medica (more content not included)... Normal [facility] Glomerular filtration rate ( GFR) estimation/1.73 sq m using serum, plasma, or whole bOrdered By: Debbie Garcia on 09-23-2025 GFR/1.73 sq M.predicted among non-blacks MDRD (S/P/Bld) [Vol rate/Area] 104 mL/min/{1.73_m2} >60 [facility] Comment on above: mL/min/1.73m2 CKD-EP I Creatinine Equation (2020) Hematocrit Auto (Bld) [Volum e fraction]Ordered By: Debbie Garcia on 09-23-2025 Hematocrit (Bld) [Volume fraction] 37.4 % Low 40-54 [facility] Hemoglobin measurementOrdere d By: Debbie Garcia on 09-23-2025 Hemoglobin (Bld) [Mass/Vol] 13.6 g/dL 13.0-16.5 [facility] Immature granulocytes/100 WB C Auto (Bld)Ordered By: Debbie Garcia on 09-23-2025 Immature granulocytes/100 WBC (Bld) 0.500 % 0.0-0.9 [facility] Comment on above: IG% - Immature Granu locytes (promyelocytes, myelocytes and metamyelocytes) > 1% indicates that a LEFT SHIFT is Present. Laboratory - Chemistry and C hemistry - challengeOrdered By: Debbie Garcia on 09-23-2025 AST [Catalytic activity/Vol] 26 U/L <38 [facility] MCV (mean corpuscular volume ) determinationOrdered By: Debbie Garcia on 09-23-2025 MCV (RBC) [Entitic vol] 79.9 fL Low 80-94 [facility] Mean corpuscular hemoglobin (MCH) determinationOrdered By: Debbie Garcia on 09-23-2025 MCH (RBC) [Entitic mass] 29.1 pg 27.0-32.0 [facility] Mean corpuscular hemoglobin concentration (MCHC) determinationOrdered By: Debbie Garcia on 09-23-2025 MCHC (RBC) [Mass/Vol] 36.4 g/dL High 32-36 [facility] Mean platelet volume determi nationOrdered By: Debbie Garcia on 09-23-2025 Platelet mean volume (Bld) [Entitic vol] 9.0 fL 6.2-12.0 [facility] Monocyte percentageOrdered B y: Debbie Garcia on 09-23-2025 Monocytes/100 WBC (Bld) 11.4 % High 0-10 [facility] Neutrophil percentageOrdered By: Debbie Garcia on 09-23-2025 Neutrophils/100 WBC (Bld) 62.7 % 47-70 [facility] Nucleated red blood cell per centageOrdered By: Debbie Garcia on 09-23-2025 Nucleated RBC/100 WBC (Bld) [Ratio] 0 % 0-5 [facility] Platelet countOrdered By: Francisca Garcia on 09-23-2025 Platelets (Bld) [#/Vol] 331 10*3/uL 150-450 [facility] Potassium measurement (mass/ volume)Ordered By: Debbie Garcia on 09-23-2025 Potassium (Unsp spec) [Mass/Vol] 3.2 mmol/L Low 3.3-5.1 [facility] RBC Auto (Bld) [#/Vol]Ordere d By: Debbie Garcia on 09-23-2025 RBC (Bld) [#/Vol] 4.68 10*6/uL 4.6-6.2 [facility] Serum creatinine measurement (mass/volume)Ordered By: Debbie Garcia on 09-23-2025 Creatinine [Mass/Vol] 0.79 mg/dL 0.70-1.20 [facility] Serum globulin measurementOr dered By: Debbie Garcia on 09-23-2025 Globulin (S) [Mass/Vol] 3.2 g/dL 2.2-4.2 [facility] Serum glucose measurement (m ass/volume)Ordered By: Debbie Garcia on 09-23-2025 Glucose [Mass/Vol] 92 mg/dL 70-99 [facility] Serum or plasma alanine sanchez otransferase (ALT) measurementOrdered By: Debbie Garcia on 09-23-2025 ALT [Catalytic activity/Vol] 10 U/L <47 [facility] Serum or plasma albumin pepe urement (mass/volume)Ordered By: Debbie Garcia on 09-23-2025 Albumin [Mass/Vol] 4.2 g/dL 3.5-5.0 [facility] Serum or plasma albumin/glob ulin mass ratioOrdered By: Debbie Garcia on 09-23-2025 Albumin/Globulin [Mass ratio] 1.3 {ratio} 0.9-2.4 [facility] Serum or plasma alkaline logan sphatase measurementOrdered By: Debbie Garcia on 09-23-2025 ALP [Catalytic activity/Vol] 61 U/L 40-129 [facility] Serum or plasma calcium pepe urement (mass/volume)Ordered By: Debbie Garcia on 09-23-2025 Calcium [Mass/Vol] 9.4 mg/dL 7.6-11.0 [facility] Serum or plasma urea nitroge n measurement (mass/volume)Ordered By: Debbie Garcia on 09-23-2025 Urea nitrogen [Mass/Vol] 5 mg/dL 4-19 [facility] Sodium levelOrdered By: Kathie Garcia on 09-23-2025 Sodium [Moles/Vol] 128 mmol/L Low 133-145 [facility] Total proteinOrdered By: Suellen Garcia on 09-23-2025 Protein [Mass/Vol] 7.4 g/dL 5.9-8.4 [facility] White blood cell (WBC) count Ordered By: Debbie Garcia on 09-23-2025 WBC (Bld) [#/Vol] 8.0 10*3/uL 4.4-11.0 [facility] EGD Reporton 09-17-2025 EGD Report [facility] Medical Records Department [address] [place] [address] EGD Report MR#: [id number] Acct: [id number] Name: LYNNETTE GONG Rep #: [id number] : 1970 55 From: Tito Morris DO PCP: UMAIR Taveras Status:REG [facility] Patient Name: Lynnette Gong Procedure Date: 09/17/2025 [...] Hemoglobin A1c Procedure Code(s): --- Professional --- 62521, Small intestinal endoscopy, enteroscopy beyond second portion of duodenum, not including ileum; with biopsy, single or multiple CPT copyright 2021 [employer]. All rights reserved. The codes documented in this report are preliminary and upon certified medical records coder review may be revised to meet current compliance requirements. Tito Morris DO 09/17/2025 2:06:55 PM This report has been signed electronically (more content not included)... Normal [facility] Immunohistochemical Stainson 09-17-2025 Immunohistochemical Stains Patient Age/Sex Location Account Attending Physician LYNNETTE GONG 55/M EN [id number] Tito Morris DO Specimen: [id number] Received: 09/17/25 Status: DONAVON Osuna Num: [id number] Spec Type: EGD BIOPSY Mamta Dr: Tito [...] developed and their performance characteristics determined by [facility]. They may not have been [...] specimen is totally submitted in one cassette. [place] 09/17/2025 Patient Age/Sex Location Account Attending Physician LYNNETTE GONG/Tawny EN [id number] Tito Morris DO CPT:36272g2,31397 Patient Age/Sex Location Account Attending Physician LYNNETTE GONG/Tawny EN [id number] Tito Morris DO Signed (signature on file) Dr. Adrianne Bey MD 09/30/25 1357 Normal [facility] Comment on above: Performed By: #### P [facility] ####[facility] [address] [place], [address] MR/OP.PROVATon 09-17-2025 [facility] Medical Records Department [address] [place] [address] Provation Physician Letter MR#: [id number] Acct: [id number] Name: LYNNETTE GONG Rep #: [id number] : 1970 55 From: Tito Morris DO PCP: UMAIR Taveras Status:REG [facility] 09/17/2025 Umair Taveras Re : Upper GI [...] This report has been signed electronically. 09/17/25 9455 Date Tito Ziegler Signature: Date (if indicated) CC: WHOLESALE MANAGER-Juju Morris DO Date Dictated: 09/17/25 1332 Date Transcribed: Oracle Architect: RF Signed [facility] MR/POSTOP.ANE 09-17-2025 MR/POSTOP.[facility] Medical Records Department [address] [place] [address] Anesthesia Postop Eval I 09/17/25 1359 MR#: [id number] Acct: [id number] Name: LYNNETTE GONG Rep #: [id number] : 1970 55 From: Jean Jc PCP: UMAIR Taveras Status:REG SDC Y Race: C Location: [place] [address] Anesthesia: Postop Eval I Current Vital Signs [...] Mendoza Signature: Date CC: Signed [facility] MR/[id number] 09-17-2025 MR/POSTOPAN2 [facility] Medical Records Department [address] [place] [address] Anesthesia Postop Eval II 09/17/25 1422 MR#: [id number] Acct: [id number] Name: LYNNETTE GONG Rep #: [id number] : 1970 55 From: Mina Calle MD PCP: UMAIR Taveras Status:REG SDC Y Race: C Location: [facility] Anesthesia Postop Eval I Sum Postop [...] Cosigner Signature: Date CC: Signed [facility] MR/Gina 09-15-2025 MR/[facility] Medical Records Department [address] [place] [address] PAT - Anesthesia 09/15/25 1404 MR#: [id number] Acct: [id number] Name: LYNNETTE GONG Rep #: [id number] : 1970 55 From: Mina Calle MD PCP: UMAIR Taveras Status:PRE SDC Y Race: C Location: EN Pre-Assessment Diagnosis/Proposed Procedure Planned Operative Procedure(s): EGD Anesthesia History Anesthesia History - physician internist: Anesthesia History - physician internist Hx Hospitalization Yes: LOW SODIUM 06/202509/15/25 13:45 [...] take am of surgery PONV PONV - physician internist: PONV - physician internist Female No 09/15/25 13:45 HX of Motion Sickness No 09/15/25 13:45 HX of N/V After Surgery No 09/15/25 13:45 Non-Smoker No 09/15/25 13:45 Duration of Surgery greater No 09/15/25 13:45 than 60 minutes Number of Risk Factors PONV Score Height Weight Height Weight: Anesthesia: Height Weight Height 5 ft 7 in 08/14/25 09:48 Respiratory Assessment Respiratory Assessment - physician internist: Respiratory Tract Infection Hx - physician internist Hx Respiratory Tract Infection No 09/15/25 13:45 STOP Sleep Apnea STOP Sleep Apnea - physician internist: STOP Sleep Apnea - physician internist Hx Hypertension Yes: STILL WORKING ON, 09/15/25 [...] Tobacco Use History Tobacco Use History - physician internist: Tobacco Use History - physician internist Tobacco Use Smoking Status Current every day smoker 09/15/25 13:45 Hx Tobacco Use Yes 09/15/25 13:45 Years Smoking Packs Smoked per Day Smoking Cessation Date was within the last 15 years Hx Smoking Cessation Date Hx Smoking Cessation Counseling Hematologic Medial History Hematologic Hx - physician internist: Hematologic Medical Hx - 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 Hx of Blood Transfusion No 09/15/25 13:45 [...] confused, unrespo /Reproduction History /Reproductive History - physician internist: /Reproductive Hx- physician internist Hx Now No 09/15/25 13:45 Gestational Age [...] PO Q (more content not included)... Normal [facility] Gastroenterology Visit Repor ton 08-26-2025 Gastroenterology Visit Report [facility] Gastroenterology [address] [place] [address] OFFICE VISIT Date of Service: 08/26/25 MR#: [id number] Acct: [id number] Name: LYNNETTE GONG Rep #: [id number] : 1970 Provider: LANA Adan Age/Sex: 55/M Location: [facility] Status: Signed Intake Vital Signs 08/11/25 14:40 08/14/25 09:48 Height 5 ft 7 in 5 ft 7 in Weight: 304 lb 4 oz BMI 47.6 BP 144/87 H Respiration 18 Pulse 82 Temp 98.8 F Pulse Oximetry (%) 93 Oxygen Delivery Method room air Intake Visit Reasons: SCHEDULE FU PER ANANYA Chief Complaint: Nausea and vomiting Lacquer Mixer Required: No Accompanied by: Self Is patient [...] #90 tabs 08/11/25 0 08/26/25 [facility] History History of CVA (cerebrovascular [...] to pharmac (more content not included)... Normal [facility] L509.6001on 08-14-2025 CORTISOL 35.80 ug/dL High 6.02-18.40 [facility] Comment on above: Order Comment: 60M Performed By: #### L 509.6001 ####[facility] [address] [place], [address] CORTISOL 29.20 ug/dL High 6.02-18.40 [facility] Comment on above: Order Comment: 30M Performed By: #### L 509.6001 ####[facility] [address] [place], [address] CORTISOL 20.60 ug/dL High 6.02-18.40 [facility] Comment on above: Order Comment: B Performed By: #### L 500.2500, L501.4021, L100.0100 #### [facility] [address] [place], [address] Serum or plasma cortisol cem surement (mass/volume)Ordered By: Elizabet Diop on 08-14-2025 Cortisol [Mass/Vol] 35.80 ug/dL High 6.02-18.40 [facility] Gastroenterology Visit Repor ton 08-11-2025 Gastroenterology Visit Report [facility] Gastroenterology [address] [place] [address] OFFICE VISIT Date of Service: 08/11/25 MR#: [id number] Acct: [id number] Name: LYNNETTE GONG Rep #: [id number] : 1970 Provider: UMAIR mccray Age/Sex: 54/M [place] [facility] [place]: Signed Intake Vital Signs 07/17/25 11:52 [...] Reasons: 1 M FU Chief Complaint: nausea Lacquer Mixer Required: No Accompanied by: Self Is patient [...] #90 tabs 08/11/25 0 08/11/25 Rx release [facility] Medical History History of CVA (cerebrovascular accident) [...] drinking James (more content not included)... Normal [facility] Anion gap in Serum or Plasma Ordered By: Deborah Roa on 08-04-2025 Anion gap [Moles/Vol] 15 mmol/L - [facility] BUN/creatinine ratioOrdered By: Deborah Roa on 08-04-2025 Urea nitrogen/Creatinine [Mass ratio] 11.6 mg/mg - [facility] Basic Metabolic Profile (BMP )on 08-04-2025 BUN/CRE 11.6 RATIO Normal - [facility] Comment on above: Performed By: #### L 500.2500, L501.4021, L100.0100 #### [facility] [address] [place], [address] Calcium [Mass/Vol] 9.3 mg/dL Normal 7.6-11.0 [facility] Comment on above: Performed By: #### L 500.2500, L501.4021, L100.0100 #### [facility] [address] [place], [address] Chloride [Moles/Vol] 90 mmol/L Low 98-108 [facility] Comment on above: Performed By: #### L 500.2500, L501.4021, L100.0100 #### [facility] [address] [place], [address] CO2 [Moles/Vol] 22.5 mmol/L Normal 21.0-32.0 [facility] Comment on above: Performed By: #### L 500.2500, L501.4021, L100.0100 #### [facility] [address] [place], [address] Creatinine [Mass/Vol] 0.80 mg/dL Normal 0.70-1.20 [facility] Comment on above: Performed By: #### L 500.2500, L501.4021, L100.0100 #### [facility] [address] [place], [address] GAP 15 Normal 5-15 [facility] Comment on above: Performed By: #### L 500.2500, L501.4021, L100.0100 #### [facility] [address] [place], [address] GFR/1.73 sq M.predicted among non-blacks MDRD (S/P/Bld) [Vol rate/Area] 104 mL/min/{1.73_m2} Normal >60 [facility] Comment on above: Result Comment: mL/m in/1.73m2 CKD-EPI Creatinine Equation (2020) Performed By: #### L 500.2500, L501.4021, L100.0100 #### [facility] [address] [place], [address] Glucose [Mass/Vol] 96 mg/dL Normal 70-99 [facility] Comment on above: Performed By: #### L 500.2500, L501.4021, L100.0100 #### [facility] [address] [place], [address] Potassium [Moles/Vol] 4.2 mmol/L Normal 3.3-5.1 [facility] Comment on above: Performed By: #### L 500.2500, L501.4021, L100.0100 #### [facility] [address] [place], [address] Sodium [Moles/Vol] 128 mmol/L Low 133-145 [facility] Comment on above: Performed By: #### L 500.2500, L501.4021, L100.0100 #### [facility] [address] [place], [address] Urea nitrogen [Mass/Vol] 9 mg/dL Normal 4-19 [facility] Comment on above: Performed By: #### L 500.2500, L501.4021, L100.0100 #### [facility] [address] [place], [address] Carbon dioxide, total [Moles /volume] in Central venous bloodOrdered By: Deborah Roa on 08-04-2025 CO2 [Moles/Vol] 22.5 mmol/L 21.0-32.0 [facility] Chloride assayOrdered By: Ra jacoby Roa on 08-04-2025 Chloride [Moles/Vol] 90 mmol/L Low 98-108 [facility] Glomerular filtration rate ( GFR) estimation/1.73 sq m using serum, plasma, or whole bOrdered By: Deborah Roa on 08-04-2025 GFR/1.73 sq M.predicted among non-blacks MDRD (S/P/Bld) [Vol rate/Area] 104 mL/min/{1.73_m2} >60 [facility] Comment on above: mL/min/1.73m2 CKD-EP I Creatinine Equation (2020) Osmolality urOrdered By: Cecilio Roa on 08-04-2025 Osmolality (U) [Osmolality] 480 mOsm/KG >50 [facility] Comment on above: Normal Urine Referen ce Ranges Random: 50 - 1200 mOsm/kg H20 depending on fluid intake Random: >850 mOsm/kg after 12 hour fluid restriction 24 hour: ~300 - 900 mOsm/kg H2O Osmolality, Urineon 08-04-20 25 OSMOLALITY,UR 480 mOsm/KG Normal [facility] Comment on above: Result Comment: Normal Urine Reference Ranges Random: 50 - 1200 mOsm/kg H20 depending on fluid intake Random: >850 mOsm/kg after 12 hour fluid restriction 24 hour: 300 - 900 mOsm/kg H2O Performed By: #### L 500.2500, L501.4021, L100.0100 #### [facility] [address] [place], [place], [address] Potassium measurement (mass/ volume)Ordered By: Deborah Roa on 08-04-2025 Potassium (Unsp spec) [Mass/Vol] 4.2 mmol/L 3.3-5.1 [facility] Serum creatinine measurement (mass/volume)Ordered By: Deborah Roa on 08-04-2025 Creatinine [Mass/Vol] 0.80 mg/dL 0.70-1.20 [facility] Serum glucose measurement (m ass/volume)Ordered By: Deborah Roa on 08-04-2025 Glucose [Mass/Vol] 96 mg/dL 70-99 [facility] Serum or plasma calcium pepe urement (mass/volume)Ordered By: Deborah Roa on 08-04-2025 Calcium [Mass/Vol] 9.3 mg/dL 7.6-11.0 [facility] Serum or plasma urea nitroge n measurement (mass/volume)Ordered By: Deborah Roa on 08-04-2025 Urea nitrogen [Mass/Vol] 9 mg/dL 4-19 [facility] Sodium levelOrdered By: Gale Roa on 08-04-2025 Sodium [Moles/Vol] 128 mmol/L Low 133-145 [facility] Urine sodium measurement (mo les/volume)Ordered By: Deborah Roa on 08-04-2025 Sodium (U) [Moles/Vol] 48 mmol/L Normal Not Establ. [facility] Comment on above: Performed By: #### L 500.2500, L501.4021, L100.0100 #### [facility] [address] [place], [place], [address] Anion gap in Serum or Plasma Ordered By: Elizabet Diop on 07-17-2025 Anion gap [Moles/Vol] 14 mmol/L 5- [facility] BUN/creatinine ratioOrdered By: Elizabet Diop on 07-17-2025 Urea nitrogen/Creatinine [Mass ratio] 4.3 mg/mg Low - [facility] Basic Metabolic Profile (BMP )on 07-17-2025 BUN/CRE 4.3 RATIO Low - [facility] Comment on above: Performed By: #### L 501.9520, L500.2500, L509.6001 ####[facility] [address] [place], [address] GAP 14 Normal - [facility] Comment on above: Performed By: #### L 501.9520, L500.2500, L509.6001 ####[facility] [address] [place], [address] Potassium [Moles/Vol] 3.8 mmol/L Normal 3.3-5.1 [facility] Comment on above: Performed By: #### L 501.9520, L500.2500, L509.6001 ####[facility] [address] [place], [address] Carbon dioxide, total [Moles /volume] in Central venous bloodOrdered By: Elizabet Diop on 07-17-2025 CO2 [Moles/Vol] 22.7 mmol/L Normal 21.0-32.0 [facility] Comment on above: Performed By: #### L 501.9520, L500.2500, L509.6001 ####[facility] [address] [place], [address] Chloride assayOrdered By: Ortiz Diop on 07-17-2025 Chloride [Moles/Vol] 86 mmol/L Low 98-108 [facility] Comment on above: Performed By: #### L 501.9520, L500.2500, L509.6001 ####[facility] [address] [place], [address] Gastroenterology Visit Repor ton 07-17-2025 Gastroenterology Visit Report [facility] G[facility]enterology [address] [place] [address] OFFICE VISIT Date of Service: 07/17/25 MR#: [id number] Acct: [id number] Name: LYNNETTE GONG Rep #: [id number] : 1970 Provider: UMAIR mccray Age/Sex: 54/M [place] [facility] [place]: Signed Intake Vital Signs 06/23/25 15:12 [...] depression Endo Endocrine: No fatigue or weight olck (more content not included)... Normal [facility] Glomerular filtration rate ( GFR) estimation/1.73 sq m using serum, plasma, or whole bOrdered By: Elizabet Diop on 07-17-2025 GFR/1.73 sq M.predicted among non-blacks MDRD (S/P/Bld) [Vol rate/Area] 104 mL/min/{1.73_m2} Normal >60 [facility] Comment on above: mL/min/1.73m2 CKD-EP I Creatinine Equation (2020) Result Comment: mL/m in/1.73m2 CKD-EPI Creatinine Equation (2020) Performed By: #### L 501.9520, L500.2500, L509.6001 ####[facility] [address] [place], [address] L509.6001on 07-17-2025 CORTISOL 6.83 ug/dL Normal 6.02-18.40 [facility] Comment on above: Performed By: #### L 500.2500, L501.4021, L100.0100 #### [facility] [address] [place], [address] Potassium measurement (mass/ volume)Ordered By: Elizabet Doip on 07-17-2025 Potassium (Unsp spec) [Mass/Vol] 3.8 mmol/L 3.3-5.1 [facility] Serum creatinine measurement (mass/volume)Ordered By: Elizabet Diop on 07-17-2025 Creatinine [Mass/Vol] 0.82 mg/dL Normal 0.70-1.20 [facility] Comment on above: Performed By: #### L 501.9520, L500.2500, L509.6001 ####[facility] [address] [place], [address] Serum glucose measurement (m ass/volume)Ordered By: Elizabet Diop on 07-17-2025 Glucose [Mass/Vol] 99 mg/dL Normal 70-99 [facility] Comment on above: Performed By: #### L 501.9520, L500.2500, L509.6001 ####[facility] [address] [place], [address] Serum or plasma calcium pepe urement (mass/volume)Ordered By: Elizabet Diop on 07-17-2025 Calcium [Mass/Vol] 9.2 mg/dL Normal 7.6-11.0 [facility] Comment on above: Performed By: #### L 501.9520, L500.2500, L509.6001 ####[facility] [address] [place], [address] Serum or plasma cortisol cem surement (mass/volume)Ordered By: Elizabet Diop on 07-17-2025 Cortisol [Mass/Vol] 6.83 ug/dL 6.02-18.40 [facility] Serum or plasma urea nitroge n measurement (mass/volume)Ordered By: Elizabet Diop on 07-17-2025 Urea nitrogen [Mass/Vol] 4 mg/dL Normal 4-19 [facility] Comment on above: Performed By: #### L 501.9520, L500.2500, L509.6001 ####[facility] [address] [place], [address] Sodium levelOrdered By: Ananya Diop on 07-17-2025 Sodium [Moles/Vol] 123 mmol/L Low 133-145 [facility] Comment on above: Performed By: #### L 501.9520, L500.2500, L509.6001 ####[facility] [address] [place], [address] TSH DL <= 0.005 mIU/L QnOrde red By: Elizabet Diop on 07-17-2025 TSH Qn 1.670 uIU/mL 0.300-4.200 [facility] Thyroid Stim Hormone (TSH)on 07-17-2025 TSH 1.670 uIU/mL Normal 0.300-4.200 [facility] Comment on above: Performed By: #### L 501.9520, L500.2500, L509.6001 ####[facility] [address] [place], [address] Abdomen Single Viewon 2024 Abdomen Single View [facility] [address] [place] [address] Abdomen Single View MR#: [id number] Acct: [id number] Name: LYNNETTE GONG Rep #: [id number] : 1970 M 54 From: Rodri Pagan MD PCP: UMAIR Taveras Status: REG ER Study: Abdomen Single View Date of Exam: 06/23/25 Exam# [id number] Ordering Dr: Juan Rush DO PROCEDURE: ABDOMEN [...] the rectum may indicate constipation.. Reading Location: [id number] CC: WHOLESALE MANAGER-C Deborah Roa; Dr. Juan Rush DO Oracle Architect: Signed Normal [facility] Emergency Department Summary on 06-23-2025 Emergency Department Summary [facility] Medical Records Department [address] [place] [address] Emergency Department Summary 06/23/25 MR#: [id number] Acct: [id number] Name: LYNNETTE GONG Rep #: [id number] : 1970 54 From: Juan Salinas PCP: UMAIR Taveras Status:DEP ER Location: ED HPI HPI - GI History of Present Illness Chief Complaint: Constipation Informant: patient Narrative Narrative: Presents for constipation. Typically has normal bowel movement for last month's change. Ueiy-pkq-nujiyhx stool softeners and MiraLAX. Saw his primary [...] until b (more content not included)... Normal [facility] Abdomen Single Viewon 2024 Abdomen Single View [facility] [address] [place], [place] [address] Abdomen Single View MR#: [id number] Acct: [id number] Name: LYNNETTE GONG Rep #: [id number] : 1970 M 54 From: Lynnette Rush MD PCP: UMAIR Taveras Status: REG CLI Study: Abdomen Single View Date of Exam: 06/17/25 Exam# [id number] Ordering Dr: Deborah Roa WHOLESALE MANAGERLaurel EXAM: XR Abdomen, 1 View CLINICAL INDICATION: CONSTIPATION, MELENA, NAUSEA TECHNIQUE: Frontal supine view of the abdomen/pelvis. COMPARISON: No relevant prior studies available. FINDINGS: GASTROINTESTINAL TRACT: Fecal retention in the colon consistent with constipation. No dilation. BONES/JOINTS: Unremarkable. No acute fracture. RAD/Abdomen Single View IMPRESSION: Fecal retention in the colon consistent with constipation. Reading Location: [facility] CC: WHOLESALE MANAGER-C Deborah Roa Oracle Architect: Signed Normal [facility] Absolute lymphocyte countOrd ered By: Deborah Roa on 06-17-2025 Lymphocytes Auto (Unsp spec) [#/Vol] 1.90 10*3/uL 0.83-4.51 [facility] Absolute neutrophil countOrd ered By: Deborah Roa on 06-17-2025 Neutrophils (Bld) [#/Vol] 8.0 10*3/uL High 2.0-7.7 [facility] Anion gap in Serum or Plasma Ordered By: Deborah Roa on 06-17-2025 Anion gap [Moles/Vol] 13 mmol/L 5-15 [facility] Automated lymphocyte count a s percentage of total leukocytesOrdered By: Deborah Stephensongar on 06-17-2025 Lymphocytes/100 WBC Auto (Unsp spec) 17.1 % Low 19-41 [facility] BUN/creatinine ratioOrdered By: Deborah Roa on 06-17-2025 Urea nitrogen/Creatinine [Mass ratio] 10.7 mg/mg 10- [facility] Basic Metabolic Profile (BMP )on 06-17-2025 BUN/CRE 10.7 RATIO Normal 10-20 [facility] Comment on above: Performed By: #### L 500.2500, L501.4021, L100.0100 #### [facility] [address] [place], [address] Calcium [Mass/Vol] 9.7 mg/dL Normal 7.6-11.0 [facility] Comment on above: Performed By: #### L 500.2500, L501.4021, L100.0100 #### [facility] [address] [place], [address] Chloride [Moles/Vol] 89 mmol/L Low 98-108 [facility] Comment on above: Performed By: #### L 500.2500, L501.4021, L100.0100 #### [facility] [address] [place], [address] CO2 [Moles/Vol] 21.8 mmol/L Normal 21.0-32.0 [facility] Comment on above: Performed By: #### L 500.2500, L501.4021, L100.0100 #### [facility] [address] [place], [address] Creatinine [Mass/Vol] 0.91 mg/dL Normal 0.70-1.20 [facility] Comment on above: Performed By: #### L 500.2500, L501.4021, L100.0100 #### [facility] [address] [place], [address] GAP 13 Normal 5-15 [facility] Comment on above: Performed By: #### L 500.2500, L501.4021, L100.0100 #### [facility] [address] [place], [address] GFR/1.73 sq M.predicted among non-blacks MDRD (S/P/Bld) [Vol rate/Area] 100 mL/min/{1.73_m2} Normal >60 [facility] Comment on above: Result Comment: mL/m in/1.73m2 CKD-EPI Creatinine Equation (2020) Performed By: #### L 500.2500, L501.4021, L100.0100 #### [facility] [address] [place], [address] Glucose [Mass/Vol] 106 mg/dL High 70-99 [facility] Comment on above: Performed By: #### L 500.2500, L501.4021, L100.0100 #### [facility] [address] [place], [address] Potassium [Moles/Vol] 4.6 mmol/L Normal 3.3-5.1 [facility] Comment on above: Performed By: #### L 500.2500, L501.4021, L100.0100 #### [facility] [address] [place], [address] Sodium [Moles/Vol] 124 mmol/L Low 133-145 [facility] Comment on above: Performed By: #### L 500.2500, L501.4021, L100.0100 #### [facility] [address] [place], [address] Urea nitrogen [Mass/Vol] 10 mg/dL Normal 4-19 [facility] Comment on above: Performed By: #### L 500.2500, L501.4021, L100.0100 #### [facility] [address] [place], [address] Basophil percentageOrdered B y: Deborah Roa on 06-17-2025 Basophils/100 WBC (Bld) 0.5 % 0-1 [facility] CBC W/Diff, Automatedon 05-28 Absolute Lymph 1.90 X10 3/uL Normal 0.83-4.51 [facility] Comment on above: Performed By: #### L 500.2500, L501.4021, L100.0100 #### [facility] [address] [place], [address] Absolute Neut 8.0 X10 3/uL High 2.0-7.7 [facility] Comment on above: Performed By: #### L 500.2500, L501.4021, L100.0100 #### [facility] [address] [place], [address] Basophils/100 WBC (Bld) 0.5 % Normal 0-1 [facility] Comment on above: Performed By: #### L 500.2500, L501.4021, L100.0100 #### [facility] [address] [place], [address] Eosinophils/100 WBC (Bld) 0.2 % Normal 0-5 [facility] Comment on above: Performed By: #### L 500.2500, L501.4021, L100.0100 #### [facility] [address] [place], [address] Erythrocyte distribution width (RBC) [Ratio] 13.0 % Normal 11.6-14.6 [facility] Comment on above: Performed By: #### L 500.2500, L501.4021, L100.0100 #### [facility] [address] [place], [address] Hematocrit (Bld) [Volume fraction] 39.4 % Low 40-54 [facility] Comment on above: Performed By: #### L 500.2500, L501.4021, L100.0100 #### [facility] [address] [place], [address] Hemoglobin (Bld) [Mass/Vol] 13.7 g/dL Normal 13.0-16.5 [facility] Comment on above: Performed By: #### L 500.2500, L501.4021, L100.0100 #### [facility] [address] [place], [address] IG% 0.700 Normal 0.0-0.9 [facility] Comment on above: Result Comment: IG% - Immature Granulocytes (promyelocytes, myelocytes and metamyelocytes) > 1% indicates that a LEFT SHIFT is Present. Performed By: #### L 500.2500, L501.4021, L100.0100 #### [facility] [address] [place], [address] Lymphocytes/100 WBC (Bld) 17.1 % Low 19-41 [facility] Comment on above: Performed By: #### L 500.2500, L501.4021, L100.0100 #### [facility] [address] [place], [address] MCH (RBC) [Entitic mass] 28.8 pg Normal 27.0-32.0 [facility] Comment on above: Performed By: #### L 500.2500, L501.4021, L100.0100 #### [facility] [address] [place], [address] MCHC (RBC) [Mass/Vol] 34.8 g/dL Normal 32-36 [facility] Comment on above: Performed By: #### L 500.2500, L501.4021, L100.0100 #### [facility] [address] [place], [address] MCV (RBC) [Entitic vol] 82.8 fL Normal 80-94 [facility] Comment on above: Performed By: #### L 500.2500, L501.4021, L100.0100 #### [facility] [address] [place], [address] Monocytes/100 WBC (Bld) 9.4 % Normal 0-10 [facility] Comment on above: Performed By: #### L 500.2500, L501.4021, L100.0100 #### [facility] [address] [place], [address] Neutrophils/100 WBC (Bld) 72.1 % High 47-70 [facility] Comment on above: Performed By: #### L 500.2500, L501.4021, L100.0100 #### [facility] [address] [place], [address] Nucleated RBC (Bld) [#/Vol] 0 10*3/uL Normal 0-5 [facility] Comment on above: Performed By: #### L 500.2500, L501.4021, L100.0100 #### [facility] [address] [place], [address] Platelet mean volume (Bld) [Entitic vol] 9.5 fL Normal 6.2-12.0 [facility] Comment on above: Performed By: #### L 500.2500, L501.4021, L100.0100 #### [facility] [address] [place], [address] Platelets (Bld) [#/Vol] 384 10*3/uL Normal 150-450 [facility] Comment on above: Performed By: #### L 500.2500, L501.4021, L100.0100 #### [facility] [address] [place], [address] RBC (Bld) [#/Vol] 4.76 10*6/uL Normal 4.6-6.2 [facility] [facility] Comment on above: Performed By: #### L 500.2500, L501.4021, L100.0100 #### [facility] [address] [place], [address] RDW SD 39.4 fl Normal 35.1-43.9 [facility] Comment on above: Performed By: #### L 500.2500, L501.4021, L100.0100 #### [facility] [address] [place], [address] WBC (Bld) [#/Vol] 11.1 10*3/uL High 4.4-11.0 [facility] Comment on above: Performed By: #### L 500.2500, L501.4021, L100.0100 #### [facility] [address] [place], [address] Carbon dioxide, total [Moles /volume] in Central venous bloodOrdered By: Deborah Roa on 06-17-2025 CO2 [Moles/Vol] 21.8 mmol/L 21.0-32.0 [facility] Chloride assayOrdered By: Ra jacoby Roa on 06-17-2025 Chloride [Moles/Vol] 89 mmol/L Low 98-108 [facility] Eosinophil percentageOrdered By: Deborah Roa on 06-17-2025 Eosinophils/100 WBC (Bld) 0.2 % 0-5 [facility] Erythrocyte distribution wid th ratioOrdered By: Deborah Roa on 06-17-2025 Erythrocyte distribution width (RBC) [Ratio] 13.0 % 11.6-14.6 [facility] Erythrocyte distribution wid th standard deviationOrdered By: Deborah Roa on 06-17-2025 Erythrocyte distribution width (RBC) [Ratio] 39.4 fl 35.1-43.9 [facility] Glomerular filtration rate ( GFR) estimation/1.73 sq m using serum, plasma, or whole bOrdered By: Deborah Roa on 06-17-2025 GFR/1.73 sq M.predicted among non-blacks MDRD (S/P/Bld) [Vol rate/Area] 100 mL/min/{1.73_m2} >60 [facility] Comment on above: mL/min/1.73m2 CKD-EP I Creatinine Equation (2020) Hematocrit Auto (Bld) [Volum e fraction]Ordered By: Deborah Roa on 06-17-2025 Hematocrit (Bld) [Volume fraction] 39.4 % Low 40-54 [facility] Hemoglobin measurementOrdere d By: Deborah Roa on 06-17-2025 Hemoglobin (Bld) [Mass/Vol] 13.7 g/dL 13.0-16.5 [facility] Immature granulocytes/100 WB C Auto (Bld)Ordered By: Deborah Roa on 06-17-2025 Immature granulocytes/100 WBC (Bld) 0.700 % 0.0-0.9 [facility] Comment on above: IG% - Immature Granu locytes (promyelocytes, myelocytes and metamyelocytes) > 1% indicates that a LEFT SHIFT is Present. MCV (mean corpuscular volume ) determinationOrdered By: Deborah Roa on 06-17-2025 MCV (RBC) [Entitic vol] 82.8 fL 80-94 [facility] Mean corpuscular hemoglobin (MCH) determinationOrdered By: Deborahtony Roa on 06-17-2025 MCH (RBC) [Entitic mass] 28.8 pg 27.0-32.0 [facility] Mean corpuscular hemoglobin concentration (MCHC) determinationOrdered By: Deborah Roa on 06-17-2025 MCHC (RBC) [Mass/Vol] 34.8 g/dL 32-36 [facility] Mean platelet volume determi nationOrdered By: Deborah Roa on 06-17-2025 Platelet mean volume (Bld) [Entitic vol] 9.5 fL 6.2-12.0 [facility] Monocyte percentageOrdered B y: Deborah Roa on 06-17-2025 Monocytes/100 WBC (Bld) 9.4 % 0-10 [facility] Neutrophil percentageOrdered By: Deborah Roa on 06-17-2025 Neutrophils/100 WBC (Bld) 72.1 % High 47-70 [facility] Nucleated red blood cell per centageOrdered By: Deborah Roa on 06-17-2025 Nucleated RBC/100 WBC (Bld) [Ratio] 0 % 0-5 [facility] Platelet countOrdered By: Ra jacoby Roa on 06-17-2025 Platelets (Bld) [#/Vol] 384 10*3/uL 150-450 [facility] Potassium measurement (mass/ volume)Ordered By: Deborah Roa on 06-17-2025 Potassium (Unsp spec) [Mass/Vol] 4.6 mmol/L 3.3-5.1 [facility] RBC Auto (Bld) [#/Vol]Ordere d By: Deborah Roa on 06-17-2025 RBC (Bld) [#/Vol] 4.76 10*6/uL 4.6-6.2 [facility] Serum creatinine measurement (mass/volume)Ordered By: Deborah Roa on 06-17-2025 Creatinine [Mass/Vol] 0.91 mg/dL 0.70-1.20 [facility] Serum glucose measurement (m ass/volume)Ordered By: Deborah Roa on 06-17-2025 Glucose [Mass/Vol] 106 mg/dL High 70-99 [facility] Serum or plasma calcium pepe urement (mass/volume)Ordered By: Deborah Roa on 06-17-2025 Calcium [Mass/Vol] 9.7 mg/dL 7.6-11.0 [facility] Serum or plasma urea nitroge n measurement (mass/volume)Ordered By: Deborah Roa on 06-17-2025 Urea nitrogen [Mass/Vol] 10 mg/dL 4-19 [facility] Sodium levelOrdered By: Gale Roa on 06-17-2025 Sodium [Moles/Vol] 124 mmol/L Low 133-145 [facility] White blood cell (WBC) count Ordered By: Deborah Roa on 06-17-2025 WBC (Bld) [#/Vol] 11.1 10*3/uL High 4.4-11.0 [facility] Low Dose CT Lung Screeningon 06-10-[address] Lung Screening [facility] [address] [place] [address] Lung Screening MR#: [id number] Acct: [id number] Name: LYNNETTE GONG Rep #: [id number] : 1970 M 54 From: Roger sena MD PCP: UMAIR Taveras Status: REG CLI Study: Low Dose CT Lung Screening Date of Exam: 06/10 Exam# [id number] Ordering Dr: Anay Bull NP, NP -Juju [...] use of iterative reconstruction technique). REFERENCE LINK: [employer] Lung-RADS RADIATION DOSE SUMMARY: CTDlvol: 3.18 mGy [...] Location: [facility] CC: UMAIR Roa; UMAIR Bull Oracle Architect: Signed Normal [facility] Oncology Visit Reporton 05-27 Oncology Visit Report [facility] [address] [place] [address] OFFICE VISIT Date of Service: 06/10/25 1258 MR#: [id number] Acct: [id number] Name: LYNNETTE GONG Rep #: [id number] : 1970 From: Anay Bull NP WHOLESALE MANAGER -C Age/Sex: 54/M Location: [facility] Status: Signed HPI HPI Reviewed eligibility [...] Exam Const Orientation: alert and oriented x3 [facility] Head: normocephalic and atraumatic Neck Neck: [...] QDAY 05/12/25 06/10/25 [facility] Medical History (Updated 06/10/25 @ 14:29 by Anay Bull WHOLESALE MANAGER, WHOLESALE MANAGER-C) Tobacco use disorder, continuous Encounter for [...] We d (more content not included)... Normal [facility] Anion gap in Serum or Plasma Ordered By: Deborah Roa on 07-03-2025 Anion gap [Moles/Vol] 10 mmol/L 5- [facility] BUN/creatinine ratioOrdered By: Deborah Roa on 05-29-2025 Urea nitrogen/Creatinine [Mass ratio] 15.7 mg/mg - [facility] Basic Metabolic Profile (BMP )on 05-29-2025 BUN/CRE 15.7 RATIO Normal - [facility] Comment on above: Performed By: #### L 500.2500, L501.4021, L100.0100 #### [facility] [address] [place], [address] Calcium [Mass/Vol] 9.1 mg/dL Normal 7.6-11.0 [facility] Comment on above: Performed By: #### L 500.2500, L501.4021, L100.0100 #### [facility] [address] [place], [address] Chloride [Moles/Vol] 90 mmol/L Low 98-108 [facility] Comment on above: Performed By: #### L 500.2500, L501.4021, L100.0100 #### [facility] [address] [place], [address] CO2 [Moles/Vol] 23.5 mmol/L Normal 21.0-32.0 [facility] Comment on above: Performed By: #### L 500.2500, L501.4021, L100.0100 #### [facility] [address] [place], [address] Creatinine [Mass/Vol] 0.75 mg/dL Normal 0.70-1.20 [facility] Comment on above: Performed By: #### L 500.2500, L501.4021, L100.0100 #### [facility] [address] [place], [address] GAP 10 Normal - [facility] Comment on above: Performed By: #### L 500.2500, L501.4021, L100.0100 #### [facility] [address] [place], [address] GFR/1.73 sq M.predicted among non-blacks MDRD (S/P/Bld) [Vol rate/Area] 107 mL/min/{1.73_m2} Normal >60 [facility] Comment on above: Result Comment: mL/m in/1.73m2 CKD-EPI Creatinine Equation (2020) Performed By: #### L 500.2500, L501.4021, L100.0100 #### [facility] [address] [place], [address] Glucose [Mass/Vol] 99 mg/dL Normal 70-99 [facility] Comment on above: Performed By: #### L 500.2500, L501.4021, L100.0100 #### [facility] [address] [place], [address] Potassium [Moles/Vol] 4.6 mmol/L Normal 3.3-5.1 [facility] Comment on above: Performed By: #### L 500.2500, L501.4021, L100.0100 #### [facility] [address] [place], [address] Sodium [Moles/Vol] 123 mmol/L Low 133-145 [facility] Comment on above: Performed By: #### L 500.2500, L501.4021, L100.0100 #### [facility] [address] [place], [address] Urea nitrogen [Mass/Vol] 12 mg/dL Normal 4-19 [facility] Comment on above: Performed By: #### L 500.2500, L501.4021, L100.0100 #### [facility] [address] [place], [address] Carbon dioxide, total [Moles /volume] in Central venous bloodOrdered By: Deborah Roa on 05-29-2025 CO2 [Moles/Vol] 23.5 mmol/L 21.0-32.0 [facility] Chloride assayOrdered By: Ra jacoby Roa on 05-29-2025 Chloride [Moles/Vol] 90 mmol/L Low 98-108 [facility] Glomerular filtration rate ( GFR) estimation/1.73 sq m using serum, plasma, or whole bOrdered By: Deborah Roa on 05-29-2025 GFR/1.73 sq M.predicted among non-blacks MDRD (S/P/Bld) [Vol rate/Area] 107 mL/min/{1.73_m2} >60 [facility] Comment on above: mL/min/1.73m2 CKD-EP I Creatinine Equation (2020) Potassium measurement (mass/ volume)Ordered By: Deborah Roa on 05-29-2025 Potassium (Unsp spec) [Mass/Vol] 4.6 mmol/L 3.3-5.1 [facility] Serum creatinine measurement (mass/volume)Ordered By: Deborah Roa on 05-29-2025 Creatinine [Mass/Vol] 0.75 mg/dL 0.70-1.20 [facility] Serum glucose measurement (m ass/volume)Ordered By: Deborah Roa on 05-29-2025 Glucose [Mass/Vol] 99 mg/dL 70-99 [facility] Serum or plasma calcium pepe urement (mass/volume)Ordered By: Deborah Roa on 05-29-2025 Calcium [Mass/Vol] 9.1 mg/dL 7.6-11.0 [facility] Serum or plasma urea nitroge n measurement (mass/volume)Ordered By: Deborah Roa on 05-29-2025 Urea nitrogen [Mass/Vol] 12 mg/dL 4-19 [facility] Sodium levelOrdered By: Gale Roa on 05-29-2025 Sodium [Moles/Vol] 123 mmol/L Low 133-145 [facility] Anion gap in Serum or Plasma Ordered By: Deborah Roa on 05-20-2025 Anion gap [Moles/Vol] 11 mmol/L 5-15 [facility] BUN/creatinine ratioOrdered By: Deborah Roa on 05-20-2025 Urea nitrogen/Creatinine [Mass ratio] 6.7 mg/mg Low 10-20 [facility] Basic Metabolic Profile (BMP )on 05-20-2025 BUN/CRE 6.7 RATIO Low -20 [facility] Comment on above: Performed By: #### L 500.2500, L501.4021, L100.0100 #### [facility] [address] [place], [address] Calcium [Mass/Vol] 8.9 mg/dL Normal 7.6-11.0 [facility] Comment on above: Performed By: #### L 500.2500, L501.4021, L100.0100 #### [facility] [address] [place], [address] Chloride [Moles/Vol] 83 mmol/L Low 98-108 [facility] Comment on above: Performed By: #### L 500.2500, L501.4021, L100.0100 #### [facility] [address] [place], [address] CO2 [Moles/Vol] 23.2 mmol/L Normal 21.0-32.0 [facility] Comment on above: Performed By: #### L 500.2500, L501.4021, L100.0100 #### [facility] [address] [place], [address] Creatinine [Mass/Vol] 0.69 mg/dL Low 0.70-1.20 [facility] Comment on above: Performed By: #### L 500.2500, L501.4021, L100.0100 #### [facility] [address] [place], [address] GAP 11 Normal 5-15 [facility] Comment on above: Performed By: #### L 500.2500, L501.4021, L100.0100 #### [facility] [address] [place], [address] GFR/1.73 sq M.predicted among non-blacks MDRD (S/P/Bld) [Vol rate/Area] 109 mL/min/{1.73_m2} Normal >60 [facility] Comment on above: Result Comment: mL/m in/1.73m2 CKD-EPI Creatinine Equation (2020) Performed By: #### L 500.2500, L501.4021, L100.0100 #### [facility] [address] [place], [address] Glucose [Mass/Vol] 105 mg/dL High 70-99 [facility] Comment on above: Performed By: #### L 500.2500, L501.4021, L100.0100 #### [facility] [address] [place], [address] Potassium [Moles/Vol] 4.3 mmol/L Normal 3.3-5.1 [facility] Comment on above: Performed By: #### L 500.2500, L501.4021, L100.0100 #### [facility] [address] [place], [address] Sodium [Moles/Vol] 118 mmol/L Invalid Interpretation Code 133-145 [facility] Comment on above: Result Comment: Crit ical Result(s) Called at: by:??Results read back by same. CALLED OFFICE AND LEFT MESSAGE AT 1622 Critical Result(s) Called at: by:??Results read back by same. Performed By: #### L 500.2500, L501.4021, L100.0100 #### [facility] [address] [place], [address] Urea nitrogen [Mass/Vol] 5 mg/dL Normal 4-19 [facility] Comment on above: Performed By: #### L 500.2500, L501.4021, L100.0100 #### [facility] [address] [place], [address] Carbon dioxide, total [Moles /volume] in Central venous bloodOrdered By: Deborah Roa on 05-20-2025 CO2 [Moles/Vol] 23.2 mmol/L 21.0-32.0 [facility] Chloride assayOrdered By: Ra jacoby Roa on 05-20-2025 Chloride [Moles/Vol] 83 mmol/L Low 98-108 [facility] Glomerular filtration rate ( GFR) estimation/1.73 sq m using serum, plasma, or whole bOrdered By: Deborah Roa on 05-20-2025 GFR/1.73 sq M.predicted among non-blacks MDRD (S/P/Bld) [Vol rate/Area] 109 mL/min/{1.73_m2} >60 [facility] Comment on above: mL/min/1.73m2 CKD-EP I Creatinine Equation (2020) Potassium measurement (mass/ volume)Ordered By: Deborah Roa on 05-20-2025 Potassium (Unsp spec) [Mass/Vol] 4.3 mmol/L 3.3-5.1 [facility] Serum creatinine measurement (mass/volume)Ordered By: Deborah Roa on 05-20-2025 Creatinine [Mass/Vol] 0.69 mg/dL Low 0.70-1.20 [facility] Serum glucose measurement (m ass/volume)Ordered By: Deborah Roa on 05-20-2025 Glucose [Mass/Vol] 105 mg/dL High 70-99 [facility] Serum or plasma calcium pepe urement (mass/volume)Ordered By: Deborah Roa on 05-20-2025 Calcium [Mass/Vol] 8.9 mg/dL 7.6-11.0 [facility] Serum or plasma urea nitroge n measurement (mass/volume)Ordered By: Deborah Roa on 05-20-2025 Urea nitrogen [Mass/Vol] 5 mg/dL 4-19 [facility] Sodium levelOrdered By: Gale Roa on 05-20-2025 Sodium [Moles/Vol] 118 mmol/L Critically low 133-145 [facility] Comment on above: Critical Result(s) C alled at: by: Results read back by same.CALLED OFFICE AND LEFT MESSAGE AT 1622Critical Result(s) Called at: by: Results read back by same. Surgery Visit Reporton 05-12 Surgery Visit Report [facility] [address] [place] [address] OFFICE VISIT Date of Service: 05/12/25 MR#: [id number] Acct: [id number] Name: LYNNETTE GONG Rep #: [id number] : 1970 Provider: Dr. Betty brooke MD Age/Sex: 54/M Location: [facility] Status: Signed Intake Vital Signs 02/04/24 [...] mg PO QDAY 05/12/25 05/12/25 His tory [facility] Medical History (Updated 05/14/25 @ 08:19 [...] General: cooperative, comfortable and no acute distress HENMO Head: normocephalic and atraumatic Neck Neck: supple [...] of clear (more content not included)... Normal [facility] Anion gap in Serum or Plasma Ordered By: Kevin Singh on 05-05-2025 Anion gap [Moles/Vol] 10 mmol/L 5-15 [facility] BUN/creatinine ratioOrdered By: Kevin Singh on 05-05-2025 Urea nitrogen/Creatinine [Mass ratio] 7.9 mg/mg Low - [facility] Basic Metabolic Profile (BMP )on 05-05-2025 BUN/CRE 7.9 RATIO Low - [facility] Comment on above: Performed By: #### L 500.2500, L501.4021, L100.0100 #### [facility] [address] [place], [address] Calcium [Mass/Vol] 8.7 mg/dL Normal 7.6-11.0 [facility] Comment on above: Performed By: #### L 500.2500, L501.4021, L100.0100 #### [facility] [address] [place], [address] Chloride [Moles/Vol] 93 mmol/L Low 98-108 [facility] Comment on above: Performed By: #### L 500.2500, L501.4021, L100.0100 #### [facility] [address] [place], [address] CO2 [Moles/Vol] 23.7 mmol/L Normal 21.0-32.0 [facility] Comment on above: Performed By: #### L 500.2500, L501.4021, L100.0100 #### [facility] [address] [place], [address] Creatinine [Mass/Vol] 0.73 mg/dL Normal 0.70-1.20 [facility] Comment on above: Performed By: #### L 500.2500, L501.4021, L100.0100 #### [facility] [address] [place], [address] ECRCL 163.37 ml/min Normal 50-250 [facility] Comment on above: Performed By: #### L 500.2500, L501.4021, L100.0100 #### [facility] [address] [place], [address] GAP 10 Normal 5-15 [facility] Comment on above: Performed By: #### L 500.2500, L501.4021, L100.0100 #### [facility] [address] [place], [address] GFR/1.73 sq M.predicted among non-blacks MDRD (S/P/Bld) [Vol rate/Area] 107 mL/min/{1.73_m2} Normal >60 [facility] Comment on above: Result Comment: mL/m in/1.73m2 CKD-EPI Creatinine Equation (2020) Performed By: #### L 500.2500, L501.4021, L100.0100 #### [facility] [address] [place], [address] Glucose [Mass/Vol] 105 mg/dL High 70-99 [facility] Comment on above: Performed By: #### L 500.2500, L501.4021, L100.0100 #### [facility] [address] [place], [address] Potassium [Moles/Vol] 4.1 mmol/L Normal 3.3-5.1 [facility] Comment on above: Performed By: #### L 500.2500, L501.4021, L100.0100 #### [facility] [address] [place], [address] Sodium [Moles/Vol] 127 mmol/L Low 133-145 [facility] Comment on above: Performed By: #### L 500.2500, L501.4021, L100.0100 #### [facility] [address] [place], [address] Urea nitrogen [Mass/Vol] 6 mg/dL Normal 4-19 [facility] Comment on above: Performed By: #### L 500.2500, L501.4021, L100.0100 #### [facility] [address] [place], [address] Carbon dioxide, total [Moles /volume] in Central venous bloodOrdered By: Kevin Singh on 05-05-2025 CO2 [Moles/Vol] 23.7 mmol/L 21.0-32.0 [facility] Chloride assayOrdered By: Norris Singh on 05-05-2025 Chloride [Moles/Vol] 93 mmol/L Low 98-108 [facility] Electrocardiogram reportOrde red By: Patrick Tian on 05-05-2025 EKG study [facility] [address] [place] [address] 12 Lead EKG 05/03/25 1622 MR#: [id number] Acct: [id number] Name: LYNNETTE GONG Rep #:[id number] : 1970 54 From: Patrick meadows MD Attending Dr: Dr. Kevin Singh DO Status: ADM IN Ordering Dr: Allan Jc DO Date: Location: [facility] Sex: M C Admitted: 05/03/25 Test [...] ABNORMAL ECG Confirmed by Patrick Tian ([id number]), slot editor TITO FRIAS ([id number]) on 05/05/2025 9:20:06 AM Referred By: Confirmed By: Patrick Tian 05/05/25919 Date _ Patrick Tian MD CC: UMAIR Roa; Dr. Kevin Singh DO; Dr. Allan Jc DO ~ Signed [facility] Other Phone: Glomerular filtration rate ( GFR) estimation/1.73 sq m using serum, plasma, or whole bOrdered By: Kevin Singh on 05-05-2025 GFR/1.73 sq M.predicted among non-blacks MDRD (S/P/Bld) [Vol rate/Area] 107 mL/min/{1.73_m2} >60 [facility] Comment on above: mL/min/1.73m2 CKD-EP I Creatinine Equation (2020) Potassium measurement (mass/ volume)Ordered By: Kevin Singh on 05-05-2025 Potassium (Unsp spec) [Mass/Vol] 4.1 mmol/L 3.3-5.1 [facility] Serum creatinine measurement (mass/volume)Ordered By: Kevin Singh on 05-05-2025 Creatinine [Mass/Vol] 0.73 mg/dL 0.70-1.20 [facility] Serum glucose measurement (m ass/volume)Ordered By: Kevin Singh on 05-05-2025 Glucose [Mass/Vol] 105 mg/dL High 70-99 [facility] Serum or plasma calcium pepe urement (mass/volume)Ordered By: Kevin Singh on 05-05-2025 Calcium [Mass/Vol] 8.7 mg/dL 7.6-11.0 [facility] Serum or plasma urea nitroge n measurement (mass/volume)Ordered By: Kevin Singh on 05-05-2025 Urea nitrogen [Mass/Vol] 6 mg/dL 4-19 [facility] Sodium levelOrdered By: Kevin Singh on 05-05-2025 Sodium [Moles/Vol] 127 mmol/L Low 133-145 [facility] Absolute lymphocyte countOrd ered By: Meseret Minor on 05-04-2025 Lymphocytes Auto (Unsp spec) [#/Vol] 2.08 10*3/uL 0.83-4.51 [facility] Absolute neutrophil countOrd ered By: Meseret Minor on 05-04-2025 Neutrophils (Bld) [#/Vol] 6.0 10*3/uL 2.0-7.7 [facility] Automated lymphocyte count a s percentage of total leukocytesOrdered By: Meseret Minor on 05-04-2025 Lymphocytes/100 WBC Auto (Unsp spec) 22.7 % 19-41 [facility] Basic Metabolic Profile (BMP )on 05-04-2025 BUN/CRE 11.4 RATIO Normal 10-20 [facility] Comment on above: Performed By: #### L 500.2500, L501.4021, L100.0100 #### [facility] [address] [place], [address] Calcium [Mass/Vol] 8.8 mg/dL Normal 7.6-11.0 [facility] Comment on above: Performed By: #### L 500.2500, L501.4021, L100.0100 #### [facility] [address] [place], [address] Chloride [Moles/Vol] 90 mmol/L Low 98-108 [facility] Comment on above: Performed By: #### L 500.2500, L501.4021, L100.0100 #### [facility] [address] [place], [address] CO2 [Moles/Vol] 20.0 mmol/L Low 21.0-32.0 [facility] Comment on above: Performed By: #### L 500.2500, L501.4021, L100.0100 #### [facility] [address] [place], [address] Creatinine [Mass/Vol] 0.64 mg/dL Low 0.70-1.20 [facility] Comment on above: Performed By: #### L 500.2500, L501.4021, L100.0100 #### [facility] [address] [place], [address] ECRCL 187.67 ml/min Normal 50-250 [facility] Comment on above: Performed By: #### L 500.2500, L501.4021, L100.0100 #### [facility] [address] [place], [address] GAP 11 Normal 5-15 [facility] Comment on above: Performed By: #### L 500.2500, L501.4021, L100.0100 #### [facility] [address] [place], [address] GFR/1.73 sq M.predicted among non-blacks MDRD (S/P/Bld) [Vol rate/Area] 112 mL/min/{1.73_m2} Normal >60 [facility] Comment on above: Result Comment: mL/m in/1.73m2 CKD-EPI Creatinine Equation (2020) Performed By: #### L 500.2500, L501.4021, L100.0100 #### [facility] [address] [place], [address] Glucose [Mass/Vol] 114 mg/dL High 70-99 [facility] Comment on above: Performed By: #### L 500.2500, L501.4021, L100.0100 #### [facility] [address] [place], [address] Potassium [Moles/Vol] 4.4 mmol/L Normal 3.3-5.1 [facility] Comment on above: Performed By: #### L 500.2500, L501.4021, L100.0100 #### [facility] [address] [place], [address] Sodium [Moles/Vol] 121 mmol/L Low 133-145 [facility] Comment on above: Performed By: #### L 500.2500, L501.4021, L100.0100 #### [facility] [address] [place], [address] Urea nitrogen [Mass/Vol] 7 mg/dL Normal 4-19 [facility] Comment on above: Performed By: #### L 500.2500, L501.4021, L100.0100 #### [facility] [address] [place], [address] BUN Normal 4-19 [facility] Comment on above: Result Comment: CANC ELLATION ORDER ENTERED Performed By: #### L 500.2500, L501.4021, L100.0100 #### [facility] [address] [place], [address] BUN/CRE Normal 10-20 [facility] Comment on above: Result Comment: CANC ELLATION ORDER ENTERED Performed By: #### L 500.2500, L501.4021, L100.0100 #### [facility] [address] [place], [address] Calcium Normal 7.6-11.0 [facility] Comment on above: Result Comment: CANC ELLATION ORDER ENTERED Performed By: #### L 500.2500, L501.4021, L100.0100 #### [facility] [address] [place], [address] CL Normal 98-108 [facility] Comment on above: Result Comment: CANC ELLATION ORDER ENTERED Performed By: #### L 500.2500, L501.4021, L100.0100 #### [facility] [address] [place], [address] CO2 Normal 21.0-32.0 [facility] Comment on above: Result Comment: CANC ELLATION ORDER ENTERED Performed By: #### L 500.2500, L501.4021, L100.0100 #### [facility] [address] [place], [address] CREAT,SERUM Normal 0.70-1.20 [facility] Comment on above: Result Comment: CANC ELLATION ORDER ENTERED Performed By: #### L 500.2500, L501.4021, L100.0100 #### [facility] [address] [place], [address] eGFR Normal >60 [facility] Comment on above: Result Comment: CANC ELLATION ORDER ENTERED Performed By: #### L 500.2500, L501.4021, L100.0100 #### [facility] [address] [place], [address] GAP Normal 5-15 [facility] Comment on above: Result Comment: CANC ELLATION ORDER ENTERED Performed By: #### L 500.2500, L501.4021, L100.0100 #### [facility] [address] [place], [address] GLU Normal 70-99 [facility] Comment on above: Result Comment: CANC ELLATION ORDER ENTERED Performed By: #### L 500.2500, L501.4021, L100.0100 #### [facility] [address] [place], [address] Potassium Normal 3.3-5.1 [facility] Comment on above: Result Comment: CANC ELLATION ORDER ENTERED Performed By: #### L 500.2500, L501.4021, L100.0100 #### [facility] [address] [place], [address] Basic Metabolic Profile (BMP) Normal 133-145 [facility] Comment on above: Result Comment: CANC ELLATION ORDER ENTERED Performed By: #### L 500.2500, L501.4021, L100.0100 #### [facility] [address] [place], [address] BUN/CRE 9.3 RATIO Low 10-20 [facility] Comment on above: Performed By: #### L 500.2500 #### [facility] [address] [place], [address] Calcium [Mass/Vol] 8.7 mg/dL Normal 7.6-11.0 [facility] Comment on above: Performed By: #### L 500.2500 #### [facility] [address] [place], [address] Chloride [Moles/Vol] 88 mmol/L Low 98-108 [facility] Comment on above: Performed By: #### L 500.2500 #### [facility] [address] [place], [address] CO2 [Moles/Vol] 21.4 mmol/L Normal 21.0-32.0 [facility] Comment on above: Performed By: #### L 500.2500 #### [facility] [address] [place], [address] Creatinine [Mass/Vol] 0.71 mg/dL Normal 0.70-1.20 [facility] Comment on above: Performed By: #### L 500.2500 #### [facility] [address] [place], [address] ECRCL 169.17 ml/min Normal 50-250 [facility] Comment on above: Performed By: #### L 500.2500 #### [facility] [address] [place], [address] GAP 12 Normal 5-15 [facility] Comment on above: Performed By: #### L 500.2500 #### [facility] [address] [place], [address] GFR/1.73 sq M.predicted among non-blacks MDRD (S/P/Bld) [Vol rate/Area] 108 mL/min/{1.73_m2} Normal >60 [facility] Comment on above: Result Comment: mL/m in/1.73m2 CKD-EPI Creatinine Equation (2020) Performed By: #### L 500.2500 #### [facility] [address] [place], [address] Glucose [Mass/Vol] 98 mg/dL Normal 70-99 [facility] Comment on above: Performed By: #### L 500.2500 #### [facility] [address] [place], [address] Potassium [Moles/Vol] 3.8 mmol/L Normal 3.3-5.1 [facility] Comment on above: Performed By: #### L 500.2500 #### [facility] [address] [place], [address] Sodium [Moles/Vol] 121 mmol/L Low 133-145 [facility] Comment on above: Performed By: #### L 500.2500 #### [facility] [address] [place], [address] Urea nitrogen [Mass/Vol] 7 mg/dL Normal 4-19 [facility] Comment on above: Performed By: #### L 500.2500 #### [facility] [address] [place], [address] Basophil percentageOrdered B y: Meseret Minor on 05-04-2025 Basophils/100 WBC (Bld) 0.7 % 0-1 [facility] Bilirubin, totalOrdered By: Meseret Minor on 05-04-2025 Bilirubin [Mass/Vol] 0.56 mg/dL 0.00-1.30 [facility] CBC W/Diff, Automatedon Absolute Lymph 2.08 X10 3/uL Normal 0.83-4.51 [facility] Comment on above: Performed By: #### L 500.2500, L501.4021, L100.0100 #### [facility] [address] [place], [address] Absolute Neut 6.0 X10 3/uL Normal 2.0-7.7 [facility] Comment on above: Performed By: #### L 500.2500, L501.4021, L100.0100 #### [facility] [address] [place], [address] Basophils/100 WBC (Bld) 0.7 % Normal 0-1 [facility] Comment on above: Performed By: #### L 500.2500, L501.4021, L100.0100 #### [facility] [address] [place], [address] Eosinophils/100 WBC (Bld) 0.2 % Normal 0-5 [facility] Comment on above: Performed By: #### L 500.2500, L501.4021, L100.0100 #### [facility] [address] [place], [address] Erythrocyte distribution width (RBC) [Ratio] 12.6 % Normal 11.6-14.6 [facility] Comment on above: Performed By: #### L 500.2500, L501.4021, L100.0100 #### [facility] [address] [place], [address] Hematocrit (Bld) [Volume fraction] 37.9 % Low 40-54 [facility] Comment on above: Performed By: #### L 500.2500, L501.4021, L100.0100 #### [facility] [address] [place], [address] Hemoglobin (Bld) [Mass/Vol] 14.0 g/dL Normal 13.0-16.5 [facility] Comment on above: Performed By: #### L 500.2500, L501.4021, L100.0100 #### [facility] [address] [place], [address] IG% 0.800 Normal 0.0-0.9 [facility] Comment on above: Result Comment: IG% - Immature Granulocytes (promyelocytes, myelocytes and metamyelocytes) > 1% indicates that a LEFT SHIFT is Present. Performed By: #### L 500.2500, L501.4021, L100.0100 #### [facility] [address] [place], [address] Lymphocytes/100 WBC (Bld) 22.7 % Normal 19-41 [facility] Comment on above: Performed By: #### L 500.2500, L501.4021, L100.0100 #### [facility] [address] [place], [address] MCH (RBC) [Entitic mass] 30.0 pg Normal 27.0-32.0 [facility] Comment on above: Performed By: #### L 500.2500, L501.4021, L100.0100 #### [facility] [address] [place], [address] MCHC (RBC) [Mass/Vol] 36.9 g/dL High 32-36 [facility] Comment on above: Performed By: #### L 500.2500, L501.4021, L100.0100 #### [facility] [address] [place], [address] MCV (RBC) [Entitic vol] 81.3 fL Normal 80-[address] [facility] Comment on above: Performed By: #### L 500.2500, L501.4021, L100.0100 #### [facility] [address] [place], [address] Monocytes/100 WBC (Bld) 10.3 % High 0-10 [facility] Comment on above: Performed By: #### L 500.2500, L501.4021, L100.0100 #### [facility] [address] [place], [address] Neutrophils/100 WBC (Bld) 65.3 % Normal 47-70 [facility] Comment on above: Performed By: #### L 500.2500, L501.4021, L100.0100 #### [facility] [address] [place], [address] Nucleated RBC (Bld) [#/Vol] 0 10*3/uL Normal 0-5 [facility] Comment on above: Performed By: #### L 500.2500, L501.4021, L100.0100 #### [facility] [address] [place], [address] Platelet mean volume (Bld) [Entitic vol] 9.1 fL Normal 6.2-12.0 [facility] Comment on above: Performed By: #### L 500.2500, L501.4021, L100.0100 #### [facility] [address] [place], [address] Platelets (Bld) [#/Vol] 252 10*3/uL Normal 150-450 [facility] Comment on above: Performed By: #### L 500.2500, L501.4021, L100.0100 #### [facility] [address] [place], [address] RBC (Bld) [#/Vol] 4.66 10*6/uL Normal 4.6-6.2 [facility] Comment on above: Performed By: #### L 500.2500, L501.4021, L100.0100 #### [facility] [address] [place], [address] RDW SD 37.4 fl Normal 35.1-43.9 [facility] Comment on above: Performed By: #### L 500.2500, L501.4021, L100.0100 #### [facility] [address] [place], [address] WBC (Bld) [#/Vol] 9.2 10*3/uL Normal 4.4-11.0 [facility] Comment on above: Performed By: #### L 500.2500, L501.4021, L100.0100 #### [facility] [address] [place], [address] Comprehensive Metabolic Prof ilon 05-04-2025 Albumin [Mass/Vol] 3.9 g/dL Normal 3.5-5.0 [facility] Comment on above: Performed By: #### L 500.2500, L501.4021, L100.0100 #### [facility] [address] [place], [address] Albumin/Globulin [Mass ratio] 1.6 {ratio} Normal 0.9-2.4 [facility] Comment on above: Performed By: #### L 500.2500, L501.4021, L100.0100 #### [facility] [address] [place], [address] ALK PHOS 56 U/L Normal 40-129 [facility] Comment on above: Performed By: #### L 500.2500, L501.4021, L100.0100 #### [facility] [address] [place], [address] ALT [Catalytic activity/Vol] 12 U/L Normal <=46 [facility] Comment on above: Performed By: #### L 500.2500, L501.4021, L100.0100 #### [facility] [address] [place], [address] AST [Catalytic activity/Vol] 20 U/L Normal <=37 [facility] Comment on above: Performed By: #### L 500.2500, L501.4021, L100.0100 #### [facility] [address] [place], [address] Bilirubin [Mass/Vol] 0.56 mg/dL Normal 0.00-1.30 [facility] Comment on above: Performed By: #### L 500.2500, L501.4021, L100.0100 #### [facility] [address] [place], [address] BUN/CRE 9.3 RATIO Low 10-20 [facility] Comment on above: Performed By: #### L 500.2500, L501.4021, L100.0100 #### [facility] [address] [place], [address] Calcium [Mass/Vol] 8.7 mg/dL Normal 7.6-11.0 [facility] Comment on above: Performed By: #### L 500.2500, L501.4021, L100.0100 #### [facility] [address] [place], [address] Chloride [Moles/Vol] 89 mmol/L Low 98-108 [facility] Comment on above: Performed By: #### L 500.2500, L501.4021, L100.0100 #### [facility] [address] [place], [address] CO2 [Moles/Vol] 22.0 mmol/L Normal 21.0-32.0 [facility] Comment on above: Performed By: #### L 500.2500, L501.4021, L100.0100 #### [facility] [address] [place], [address] Creatinine [Mass/Vol] 0.62 mg/dL Low 0.70-1.20 [facility] Comment on above: Performed By: #### L 500.2500, L501.4021, L100.0100 #### [facility] [address] [place], [address] ECRCL 193.73 ml/min Normal 50-250 [facility] Comment on above: Performed By: #### L 500.2500, L501.4021, L100.0100 #### [facility] [address] [place], [address] GAP 11 Normal 5-15 [facility] Comment on above: Performed By: #### L 500.2500, L501.4021, L100.0100 #### [facility] [address] [place], [address] GFR/1.73 sq M.predicted among non-blacks MDRD (S/P/Bld) [Vol rate/Area] 113 mL/min/{1.73_m2} Normal >60 [facility] Comment on above: Result Comment: mL/m in/1.73m2 CKD-EPI Creatinine Equation (2020) Performed By: #### L 500.2500, L501.4021, L100.0100 #### [facility] [address] [place], [address] Globulin (S) [Mass/Vol] 2.4 g/dL Normal 2.2-4.[address] [facility] Comment on above: Performed By: #### L 500.2500, L501.4021, L100.0100 #### [facility] [address] [place], [address] Glucose [Mass/Vol] 101 mg/dL High 70-99 [facility] Comment on above: Performed By: #### L 500.2500, L501.4021, L100.0100 #### [facility] [address] [place], [address] Potassium [Moles/Vol] 3.8 mmol/L Normal 3.3-5.1 [facility] Comment on above: Performed By: #### L 500.2500, L501.4021, L100.0100 #### [facility] [address] [place], [address] Sodium [Moles/Vol] 123 mmol/L Low 133-145 [facility] Comment on above: Performed By: #### L 500.2500, L501.4021, L100.0100 #### [facility] [address] [place], [address] T PROT 6.3 g/dL Normal 5.9-8.4 [facility] Comment on above: Performed By: #### L 500.2500, L501.4021, L100.0100 #### [facility] [address] [place], [address] Urea nitrogen [Mass/Vol] 6 mg/dL Normal 4-19 [facility] Comment on above: Performed By: #### L 500.2500, L501.4021, L100.0100 #### [facility] [address] [place], [address] Eosinophil percentageOrdered By: Meseret Minor on 05-04-2025 Eosinophils/100 WBC (Bld) 0.2 % 0-5 [facility] Erythrocyte distribution wid th ratioOrdered By: Meseret Minor on 05-04-2025 Erythrocyte distribution width (RBC) [Ratio] 12.6 % 11.6-14.6 [facility] Erythrocyte distribution wid th standard deviationOrdered By: Meseret Minor on 05-04-2025 Erythrocyte distribution width (RBC) [Ratio] 37.4 fl 35.1-43.9 [facility] Hematocrit Auto (Bld) [Volum e fraction]Ordered By: Meseret Minor on 05-04-2025 Hematocrit (Bld) [Volume fraction] 37.9 % Low 40-54 [facility] Hemoglobin measurementOrdere d By: Meseret Minor on 05-04-2025 Hemoglobin (Bld) [Mass/Vol] 14.0 g/dL 13.0-16.5 [facility] Immature granulocytes/100 WB C Auto (Bld)Ordered By: Meseret Minor on 05-04-2025 Immature granulocytes/100 WBC (Bld) 0.800 % 0.0-0.9 [facility] Comment on above: IG% - Immature Granu locytes (promyelocytes, myelocytes and metamyelocytes) > 1% indicates that a LEFT SHIFT is Present. Laboratory - Chemistry and C hemistry - challengeOrdered By: Meseret Minor on 05-04-2025 AST [Catalytic activity/Vol] 20 U/L <38 [facility] MCV (mean corpuscular volume ) determinationOrdered By: Meseret Minor on 05-04-2025 MCV (RBC) [Entitic vol] 81.3 fL 80-94 [facility] Magnesiumon 05-04-2025 Magnesium [Mass/Vol] 1.9 mg/dL Normal 1.5-2.2 [facility] Comment on above: Performed By: #### L 500.2500, L501.4021, L100.0100 #### [facility] [address] [place], [address] Magnesium measurement (mass/ volume)Ordered By: Meseret Minor on 05-04-2025 Magnesium (Unsp spec) [Mass/Vol] 1.9 mg/dL 1.5-2.2 [facility] Mean corpuscular hemoglobin (MCH) determinationOrdered By: Meseret Minor on 05-04-2025 MCH (RBC) [Entitic mass] 30.0 pg 27.0-32.0 [facility] Mean corpuscular hemoglobin concentration (MCHC) determinationOrdered By: Meseret Minor on 05-04-2025 MCHC (RBC) [Mass/Vol] 36.9 g/dL High 32-36 [facility] Mean platelet volume determi nationOrdered By: Meseret Minor on 05-04-2025 Platelet mean volume (Bld) [Entitic vol] 9.1 fL 6.2-12.0 [facility] Monocyte percentageOrdered B y: Meseret Minor on 05-04-2025 Monocytes/100 WBC (Bld) 10.3 % High 0-10 [facility] Neutrophil percentageOrdered By: Meseret Minor on 05-04-2025 Neutrophils/100 WBC (Bld) 65.3 % 47-70 [facility] Nucleated red blood cell per centageOrdered By: Meseret Minor on 05-04-2025 Nucleated RBC/100 WBC (Bld) [Ratio] 0 % 0-5 [facility] Osmolality, Urineon 05-04-20 25 OSMOLALITY,UR 181 mOsm/KG Normal [facility] Comment on above: Result Comment: Normal Urine Reference Ranges Random: 50 - 1200 mOsm/kg H20 depending on fluid intake Random: >850 mOsm/kg after 12 hour fluid restriction 24 hour: 300 - 900 mOsm/kg H2O Performed By: #### L 501.7400, L501.5500 #### [facility] [address] [place], [address] Phosphoruson 05-04-2025 Phosphate [Mass/Vol] 3.9 mg/dL Normal 2.7-4.5 [facility] Comment on above: Performed By: #### L 500.2500, L501.4021, L100.0100 #### [facility] [address] [place], [address] Platelet countOrdered By: Bhavesh Minor on 05-04-2025 Platelets (Bld) [#/Vol] 252 10*3/uL 150-450 [facility] RBC Auto (Bld) [#/Vol]Ordere d By: Meseret Minor on 05-04-2025 RBC (Bld) [#/Vol] 4.66 10*6/uL 4.6-6.2 [facility] Serum globulin measurementOr dered By: Meseret Minor on 05-04-2025 Globulin (S) [Mass/Vol] 2.4 g/dL 2.2-4.[address] [facility] Serum or plasma alanine sanchez otransferase (ALT) measurementOrdered By: Meseret Minor on 05-04-2025 ALT [Catalytic activity/Vol] 12 U/L <47 [facility] Serum or plasma albumin pepe urement (mass/volume)Ordered By: Meseret Minor on 05-04-2025 Albumin [Mass/Vol] 3.9 g/dL 3.5-5.0 [facility] Serum or plasma albumin/glob ulin mass ratioOrdered By: Meseret Minor on 05-04-2025 Albumin/Globulin [Mass ratio] 1.6 {ratio} 0.9-2.4 [facility] Serum or plasma alkaline logan sphatase measurementOrdered By: Meseret Minor on 05-04-2025 ALP [Catalytic activity/Vol] 56 U/L 40-129 [facility] Total proteinOrdered By: Magalie Minor on 05-04-2025 Protein [Mass/Vol] 6.3 g/dL 5.9-8.4 [facility] Urine Drug Screen (VISTA)on 05-04-2025 AMPHETAMINES Negative Normal <1000 ng/mL [facility] Comment on above: Performed By: #### L 500.2500, L501.4021, L100.0100 #### [facility] [address] [place], [address] BARBITIURATES Negative Normal < 200 ng/mL [facility] Comment on above: Performed By: #### L 500.2500, L501.4021, L100.0100 #### [facility] [address] [place], [address] BENZODIAZIPINE Negative Normal < 200 ng/mL [facility] Comment on above: Performed By: #### L 500.2500, L501.4021, L100.0100 #### [facility] [address] [place], [address] BUP Ur Drug Scr Negative Normal < 200 ng/mL [facility] Comment on above: Performed By: #### L 500.2500, L501.4021, L100.0100 #### [facility] [address] [place], [address] COCAINE Negative Normal < 300 ng/mL [facility] Comment on above: Performed By: #### L 500.2500, L501.4021, L100.0100 #### [facility] [address] [place], [address] Fentanyl Negative Normal [facility] Comment on above: Performed By: #### L 500.2500, L501.4021, L100.0100 #### [facility] [address] [place], [address] METHADONE Negative Normal < 300 ng/mL [facility] Comment on above: Performed By: #### L 500.2500, L501.4021, L100.0100 #### [facility] [address] [place], [address] OPIATES Negative Normal < 300 ng/mL [facility] Comment on above: Performed By: #### L 500.2500, L501.4021, L100.0100 #### [facility] [address] [place], [address] OXYCODONE Negative Normal < 100 ng/mL [facility] Comment on above: Performed By: #### L 500.2500, L501.4021, L100.0100 #### [facility] [address] [place], [address] PCP Negative Normal < 25 ng/mL [facility] Comment on above: Performed By: #### L 500.2500, L501.4021, L100.0100 #### [facility] [address] [place], [address] THC Negative Normal < 50 ng/mL [facility] Comment on above: Performed By: #### L 500.2500, L501.4021, L100.0100 #### [facility] [address] [place], [address] Urine Sodiumon 05-04-2025 Sodium (U) [Moles/Vol] 33 mmol/L Normal Not Establ. [facility] Comment on above: Performed By: #### L 501.7400, L501.5500 #### [facility] [address] [place], [address] White blood cell (WBC) count Ordered By: Meseret Minor on 05-04-2025 WBC (Bld) [#/Vol] 9.2 10*3/uL 4.4-11.0 [facility] 12 Lead EKGon 05-03-2025 12 Lead EKG [facility] [address] [place] [address] 12 Lead EKG 05/03/25 1622 MR#: [id number] Acct: [id number] Name: LYNNETTE GONG Rep #: [id number] : 1970 54 From: Patrick Tian MD Attending Dr: Dr. Kevin Singh DO Status: ADM IN Ordering Dr: Allan Jc DO Date: 05/03/25 Location: [facility] Sex: M C Admitted: 05/03/25 Test [...] ABNORMAL ECG Confirmed by Patrick Tian ([id number]), slot editor TITO FRIAS ([id number]) on 05/05/2025 9:20:06 AM Referred By: Confirmed By: Patrick Tian 05/05/25919 Date Patrick Tian MD CC: UMAIR Roa; Dr. Kevin Singh DO; Dr. Allan Jc DO Signed Normal [facility] Absolute lymphocyte countOrd ered By: Allan Jc on 05-03-2025 Lymphocytes Auto (Unsp spec) [#/Vol] 1.81 10*3/uL 0.83-4.51 [facility] Absolute neutrophil countOrd ered By: Allan Jc on 05-03-2025 Neutrophils (Bld) [#/Vol] 8.9 10*3/uL High 2.0-7.7 [facility] Amphetamine detection with 1 000 ng/mL as cutoffOrdered By: Meseret Minor on 05-03-2025 Amphetamines Screen method >1000 ng/mL Ql (U) Negative < 200 ng/mL [facility] Anion gap in Serum or Plasma Ordered By: Allan Jc on 05-03-2025 Anion gap [Moles/Vol] 13 mmol/L 5-15 [facility] Automated lymphocyte count a s percentage of total leukocytesOrdered By: Allan Jc on 05-03-2025 Lymphocytes/100 WBC Auto (Unsp spec) 15.6 % Low 19-41 [facility] BUN/creatinine ratioOrdered By: Allan Jc on 05-03-2025 Urea nitrogen/Creatinine [Mass ratio] 6.9 mg/mg Low 10-20 [facility] Basic Metabolic Profile (BMP )on 05-03-2025 BUN/CRE 7.6 RATIO Low 10- [facility] Comment on above: Performed By: #### L 500.2500, L501.4021, L100.0100 #### [facility] [address] [place], [address] Calcium [Mass/Vol] 9.1 mg/dL Normal 7.6-11.0 [facility] Comment on above: Performed By: #### L 500.2500, L501.4021, L100.0100 #### [facility] [address] [place], [address] Chloride [Moles/Vol] 85 mmol/L Low 98-108 [facility] Comment on above: Performed By: #### L 500.2500, L501.4021, L100.0100 #### [facility] [address] [place], [address] CO2 [Moles/Vol] 22.2 mmol/L Normal 21.0-32.0 [facility] Comment on above: Performed By: #### L 500.2500, L501.4021, L100.0100 #### [facility] [address] [place], [address] Creatinine [Mass/Vol] 0.75 mg/dL Normal 0.70-1.20 [facility] Comment on above: Performed By: #### L 500.2500, L501.4021, L100.0100 #### [facility] [address] [place], [address] ECRCL 160.33 ml/min Normal 50-250 [facility] Comment on above: Performed By: #### L 500.2500, L501.4021, L100.0100 #### [facility] [address] [place], [address] GAP 12 Normal 5-15 [facility] Comment on above: Performed By: #### L 500.2500, L501.4021, L100.0100 #### [facility] [address] [place], [address] GFR/1.73 sq M.predicted among non-blacks MDRD (S/P/Bld) [Vol rate/Area] 107 mL/min/{1.73_m2} Normal >60 [facility] Comment on above: Result Comment: mL/m in/1.73m2 CKD-EPI Creatinine Equation (2020) Performed By: #### L 500.2500, L501.4021, L100.0100 #### [facility] [address] [place], [address] Glucose [Mass/Vol] 104 mg/dL High 70-99 [facility] Comment on above: Performed By: #### L 500.2500, L501.4021, L100.0100 #### [facility] [address] [place], [address] Potassium [Moles/Vol] 4.5 mmol/L Normal 3.3-5.1 [facility] Comment on above: Performed By: #### L 500.2500, L501.4021, L100.0100 #### [facility] [address] [place], [address] Sodium [Moles/Vol] 119 mmol/L Invalid Interpretation Code 133145 [facility] Comment on above: Result Comment: Crit ical Result(s) Called at: 05/03/2025-21:28 by: Cuba Varela to Jolly Worthington.??Results read back by same. Performed By: #### L 500.2500, L501.4021, L100.0100 #### [facility] [address] [place], [address] Urea nitrogen [Mass/Vol] 6 mg/dL Normal 4-19 [facility] Comment on above: Performed By: #### L 500.2500, L501.4021, L100.0100 #### [facility] [address] [place], [address] BUN/CRE 6.9 RATIO Low 10-20 [facility] Comment on above: Performed By: #### L 500.2500, L501.4021, L100.0100 #### [facility] [address] [place], [address] Calcium [Mass/Vol] 9.1 mg/dL Normal 7.6-11.0 [facility] Comment on above: Performed By: #### L 500.2500, L501.4021, L100.0100 #### [facility] [address] [place], [address] Chloride [Moles/Vol] 84 mmol/L Low 98-108 [facility] Comment on above: Performed By: #### L 500.2500, L501.4021, L100.0100 #### [facility] [address] [place], [address] CO2 [Moles/Vol] 21.4 mmol/L Normal 21.0-32.0 [facility] Comment on above: Performed By: #### L 500.2500, L501.4021, L100.0100 #### [facility] [address] [place], [address] Creatinine [Mass/Vol] 0.74 mg/dL Normal 0.70-1.20 [facility] Comment on above: Performed By: #### L 500.2500, L501.4021, L100.0100 #### [facility] [address] [place], [address] ECRCL 162.50 ml/min Normal 50-250 [facility] Comment on above: Performed By: #### L 500.2500, L501.4021, L100.0100 #### [facility] [address] [place], [address] GAP 13 Normal 5-15 [facility] Comment on above: Performed By: #### L 500.2500, L501.4021, L100.0100 #### [facility] [address] [place], [address] GFR/1.73 sq M.predicted among non-blacks MDRD (S/P/Bld) [Vol rate/Area] 107 mL/min/{1.73_m2} Normal >60 [facility] Comment on above: Result Comment: mL/m in/1.73m2 CKD-EPI Creatinine Equation (2020) Performed By: #### L 500.2500, L501.4021, L100.0100 #### [facility] [address] [place], [address] Glucose [Mass/Vol] 113 mg/dL High 70-99 [facility] Comment on above: Performed By: #### L 500.2500, L501.4021, L100.0100 #### [facility] [address] [place], [address] Potassium [Moles/Vol] 4.5 mmol/L Normal 3.3-5.1 [facility] Comment on above: Performed By: #### L 500.2500, L501.4021, L100.0100 #### [facility] [address] [place], [address] Sodium [Moles/Vol] 119 mmol/L Invalid Interpretation Code 133-145 [facility] Comment on above: Result Comment: Crit ical Result(s) Called at: 1620 by: SARA to Adin MATA.??Results read back by same. Performed By: #### L 500.2500, L501.4021, L100.0100 #### [facility] [address] [place], [address] Urea nitrogen [Mass/Vol] 5 mg/dL Normal 4-19 [facility] Comment on above: Performed By: #### L 500.2500, L501.4021, L100.0100 #### [facility] [address] [place], [address] Basophil percentageOrdered B y: Allan Jc on 05-03-2025 Basophils/100 WBC (Bld) 0.5 % 0-1 [facility] Bilirubin Test strip Ql (U)O rdered By: Meseret Minor on 05-03-2025 Bilirubin Ql (U) Negative Negative [facility] CBC W/Diff, Automatedon Absolute Lymph 1.81 X10 3/uL Normal 0.83-4.51 [facility] Comment on above: Performed By: #### L 500.2500, L501.4021, L100.0100 #### [facility] [address] [place], [address] Absolute Neut 8.9 X10 3/uL High 2.0-7.7 [facility] Comment on above: Performed By: #### L 500.2500, L501.4021, L100.0100 #### [facility] [address] [place], [address] Basophils/100 WBC (Bld) 0.5 % Normal 0-1 [facility] Comment on above: Performed By: #### L 500.2500, L501.4021, L100.0100 #### [facility] [address] [place], [address] Eosinophils/100 WBC (Bld) 0.1 % Normal 0-5 [facility] Comment on above: Performed By: #### L 500.2500, L501.4021, L100.0100 #### [facility] [address] [place], [address] Erythrocyte distribution width (RBC) [Ratio] 12.6 % Normal 11.6-14.6 [facility] Comment on above: Performed By: #### L 500.2500, L501.4021, L100.0100 #### [facility] [address] [place], [address] Hematocrit (Bld) [Volume fraction] 41.1 % Normal 40-54 [facility] Comment on above: Performed By: #### L 500.2500, L501.4021, L100.0100 #### [facility] [address] [place], [address] Hemoglobin (Bld) [Mass/Vol] 14.8 g/dL Normal 13.0-16.5 [facility] Comment on above: Performed By: #### L 500.2500, L501.4021, L100.0100 #### [facility] [address] [place], [address] IG% 0.600 Normal 0.0-0.9 [facility] Comment on above: Result Comment: IG% - Immature Granulocytes (promyelocytes, myelocytes and metamyelocytes) > 1% indicates that a LEFT SHIFT is Present. Performed By: #### L 500.2500, L501.4021, L100.0100 #### [facility] [address] [place], [address] Lymphocytes/100 WBC (Bld) 15.6 % Low 19-41 [facility] Comment on above: Performed By: #### L 500.2500, L501.4021, L100.0100 #### [facility] [address] [place], [address] MCH (RBC) [Entitic mass] 29.2 pg Normal 27.0-32.0 [facility] Comment on above: Performed By: #### L 500.2500, L501.4021, L100.0100 #### [facility] [address] [place], [address] MCHC (RBC) [Mass/Vol] 36.0 g/dL Normal 32-36 [facility] Comment on above: Performed By: #### L 500.2500, L501.4021, L100.0100 #### [facility] [address] [place], [address] MCV (RBC) [Entitic vol] 81.2 fL Normal 80-[address] [facility] Comment on above: Performed By: #### L 500.2500, L501.4021, L100.0100 #### [facility] [address] [place], [address] Monocytes/100 WBC (Bld) 6.7 % Normal 0-[address] [facility] Comment on above: Performed By: #### L 500.2500, L501.4021, L100.0100 #### [facility] [address] [place], [address] Neutrophils/100 WBC (Bld) 76.5 % High 47-70 [facility] Comment on above: Performed By: #### L 500.2500, L501.4021, L100.0100 #### [facility] [address] [place], [address] Nucleated RBC (Bld) [#/Vol] 0 10*3/uL Normal 0-5 [facility] Comment on above: Performed By: #### L 500.2500, L501.4021, L100.0100 #### [place] [facility] [address] [place], [address] Platelet mean volume (Bld) [Entitic vol] 9.0 fL Normal 6.2-12.0 [facility] Comment on above: Performed By: #### L 500.2500, L501.4021, L100.0100 #### [facility] [address] [place], [address] Platelets (Bld) [#/Vol] 313 10*3/uL Normal 150-450 [facility] Comment on above: Performed By: #### L 500.2500, L501.4021, L100.0100 #### [facility] [address] [place], [address] RBC (Bld) [#/Vol] 5.06 10*6/uL Normal 4.6-6.2 [facility] Comment on above: Performed By: #### L 500.2500, L501.4021, L100.0100 #### [facility] [address] [place], [address] RDW SD 37.1 fl Normal 35.1-43.9 [facility] Comment on above: Performed By: #### L 500.2500, L501.4021, L100.0100 #### [facility] [address] [place], [address] WBC (Bld) [#/Vol] 11.6 10*3/uL High 4.4-11.0 [facility] Comment on above: Performed By: #### L 500.2500, L501.4021, L100.0100 #### [facility] [address] [place], [address] Carbon dioxide, total [Moles /volume] in Central venous bloodOrdered By: Allan Jc on 05-03-2025 CO2 [Moles/Vol] 21.4 mmol/L 21.0-32.0 [facility] Chest PA and Lateralon 05-03 Chest PA and Lateral [facility] [address] [place] [address] Chest PA and Lateral MR#: [id number] Acct: [id number] Name: LYNNETTE GONG Rep #: [id number] : 1970 M 54 From: Agnes Degroot nd, MD PCP: UMAIR Taveras Status: REG ER Study: Chest PA and Lateral Date of Exam: 05/03/25 Exam# [id number] Ordering Dr: Allan Jc DO PROCEDURE: CHEST [...] Lateral IMPRESSION: NO ACUTE FINDINGS. Reading Location: [facility] CC: [employer] MANAGER-C Deborah Roa; Dr. Allan Jc DO Oracle Architect: Signed Normal [facility] Chloride assayOrdered By: Osiel Jc on 05-03-2025 Chloride [Moles/Vol] 84 mmol/L Low 98-108 [facility] Emergency Department Summary on 05-03-2025 Emergency Department Summary [facility] Medical Records Department [address] [place] [address] Emergency Department Summary 05/03/25 MR#: [id number] Acct: [id number] Name: LYNNETTE GONG Rep #: [id number] : 1970 54 From: Allan Jc DO [...] he no longer has a headache. [facility] Medical History (Updated 05/03/25 @ 18:22 [...] following commands knew that he was at [facility] year is 2024 patient [facility] of [...] by radio (more content not included)... Normal [facility] Eosinophil percentageOrdered By: Allan Jc on 05-03-2025 Eosinophils/100 WBC (Bld) 0.1 % 0-5 [facility] Erythrocyte distribution wid th ratioOrdered By: Allan Jc on 05-03-2025 Erythrocyte distribution width (RBC) [Ratio] 12.6 % 11.6-14.6 [facility] Erythrocyte distribution wid th standard deviationOrdered By: Allan Jc on 05-03-2025 Erythrocyte distribution width (RBC) [Ratio] 37.1 fl 35.1-43.9 [facility] Free T3on 05-03-2025 Free T3 [Mass/Vol] 2.8 pg/mL Normal 2.18-3.98 [facility] Comment on above: Performed By: #### L 501.44909, L501.9520, L506.0400 ####[facility] [address] [place], [address] Free X0Hwgrfhs By: Allan silva on 05-03-2025 Free T3 [Mass/Vol] 2.8 pg/mL 2.18-3.98 [facility] Free T3 [Mass/Vol] 2.8 pg/mL 2.18-3.98 [facility] Glomerular filtration rate ( GFR) estimation/1.73 sq m using serum, plasma, or whole bOrdered By: Allan Jc on 05-03-2025 GFR/1.73 sq M.predicted among non-blacks MDRD (S/P/Bld) [Vol rate/Area] 107 mL/min/{1.73_m2} >60 [facility] Comment on above: mL/min/1.73m2 CKD-EP I Creatinine Equation (2020) H AND P Exam - Hospitaliston 05-03-2025 H&P Exam - Hospitalist [facility] Medical Records Department [address] [place] [address] H P Exam - Hospitalist 05/03/25 1806 MR#: [id number] Acct: [id number] Name: LYNNETTE GONG Rep #: [id number] : 1970 54 From: Meseret Minor DO PCP: UMAIR Taveras Status:ADM IN Location: [place] [id number] HPI - General General Date of Admission: 05/03/25 Date of Service: 05/03/25 Chief Complaint: Elevated blood pressure HPI Narrative LYNNETTE GONG, is a 54 M who presented to the emergency department [facility] on 05/03/2025 with the chief [...] his most recent blood pressure at 159/89. [facility] Medical History HTN (hypertension) Morbid obesity [...] other Hematologic/Ly (more content not included)... Normal [facility] Hematocrit Auto (Bld) [Volum e fraction]Ordered By: Allan Jc on 05-03-2025 Hematocrit (Bld) [Volume fraction] 41.1 % 40-54 [facility] Hemoglobin A1con 05-03-2025 HbA1c (Bld) [Mass fraction] 6.0 % High <=5.6 [facility] Comment on above: Result Comment: Norm al < 5.7 % Prediabetic 5.7 - 6.4 % Diabetic >or= 6.5 % Please note range changes. Performed By: #### L 500.2500, L501.4021, L100.0100 #### [facility] [address] [place], [address] Hemoglobin A1c percentageOrd ered By: Allan Jc on 05-03-2025 HbA1c (Bld) [Mass fraction] 6.0 % High <5.7 [facility] Comment on above: Normal < 5.7 % Predi abetic 5.7 - 6.4 % Diabetic >or= 6.5 % Please note range changes. Hemoglobin measurementOrdere d By: Allan Jc on 05-03-2025 Hemoglobin (Bld) [Mass/Vol] 14.8 g/dL 13.0-16.5 [facility] Immature granulocytes/100 WB C Auto (Bld)Ordered By: Allan Jc on 05-03-2025 Immature granulocytes/100 WBC (Bld) 0.600 % 0.0-0.9 [facility] Comment on above: IG% - Immature Granu locytes (promyelocytes, myelocytes and metamyelocytes) > 1% indicates that a LEFT SHIFT is Present. Ketones Test strip Ql (U)Ord ered By: Meseret Minor on 05-03-2025 Ketones Ql (U) Negative Negative [facility] L499.0042on 05-03-2025 Trop T High Sen 9 ng/L Normal <=22 [facility] Comment on above: Performed By: #### L 499.0042 ####[facility] [address] [place], [address] L499.0043on 05-03-2025 Trop T High Sen 9 ng/L Normal <=22 [facility] Comment on above: Performed By: #### L 499.0043 #### [facility] [address] [place], [address] L501.4021on 05-03-2025 Trop T High Sen 9 ng/L Normal <=22 [facility] Comment on above: Performed By: #### L 500.2500, L501.4021, L100.0100 #### [facility] [address] [place], [address] L509.6002on 05-03-2025 CORTISOL 7.33 ug/dL Normal 2.68-10.50 [facility] Comment on above: Performed By: #### L 500.2500, L501.4021, L100.0100 #### [facility] [address] [place], [address] MCV (mean corpuscular volume ) determinationOrdered By: Allan Jc on 05-03-2025 MCV (RBC) [Entitic vol] 81.2 fL 80-94 [facility] Mean corpuscular hemoglobin (MCH) determinationOrdered By: Allan Jc on 05-03-2025 MCH (RBC) [Entitic mass] 29.2 pg 27.0-32.0 [facility] Mean corpuscular hemoglobin concentration (MCHC) determinationOrdered By: Allan Jc on 05-03-2025 MCHC (RBC) [Mass/Vol] 36.0 g/dL 32-36 [facility] Mean platelet volume determi nationOrdered By: Allan Jc on 05-03-2025 Platelet mean volume (Bld) [Entitic vol] 9.0 fL 6.2-12.0 [facility] Microscopic analysis of urin e for red blood cells (RBC)Ordered By: Meseret Minor on 05-03-2025 Microscopic analysis of urine for red blood cells (RBC) 0 SEEN /hpf 0-5 [facility] Monocyte percentageOrdered B y: Allan Jc on 05-03-2025 Monocytes/100 WBC (Bld) 6.7 % 0-10 [facility] Mucus LM Ql (Urine sed)Order ed By: Meseret Minor on 05-03-2025 Mucus Ql (Urine sed) 0 SEEN /hpf [facility] Neutrophil percentageOrdered By: Allan Jc on 05-03-2025 Neutrophils/100 WBC (Bld) 76.5 % High 47-70 [facility] Nitrite Test strip Ql (U)Ord ered By: Meseret Minor on 05-03-2025 Nitrite Ql (U) Negative Negative [facility] No Panel InformationOrdered By: Meseret Minor on 05-03-2025 Urine Buprenorphine Qualitative Negative < 200 ng/mL [facility] Urine Oxycodone Screen Negative < 100 ng/mL [facility] Nucleated red blood cell per centageOrdered By: Allan Jc on 05-03-2025 Nucleated RBC/100 WBC (Bld) [Ratio] 0 % 0-5 [facility] Osmolality urOrdered By: Magalie Minor on 05-03-2025 Osmolality (U) [Osmolality] 181 mOsm/KG >50 [facility] Comment on above: Normal Urine Referen ce Ranges Random: 50 - 1200 mOsm/kg H20 depending on fluid intake Random: >850 mOsm/kg after 12 hour fluid restriction 24 hour: ~300 - 900 mOsm/kg H2O Osmolality, Serumon 05-03-20 25 OSMOLALITY,SER 253 mOsm/KG Low 275-295 [facility] Comment on above: Performed By: #### L 500.2500, L501.4021, L100.0100 #### [facility] [address] [place] [address], [id number] Platelet countOrdered By: Osiel Jc on 05-03-2025 Platelets (Bld) [#/Vol] 313 10*3/uL 150-450 [facility] Potassium measurement (mass/ volume)Ordered By: Allan Jc on 05-03-2025 Potassium (Unsp spec) [Mass/Vol] 4.5 mmol/L 3.3-5.1 [facility] Protein Test strip Ql (U)Ord ered By: Meseret Minor on 05-03-2025 Protein Ql (U) 15 mg/dl High Negative [facility] Quantitative urine opiates m easurementOrdered By: Meseret Minor on 05-03-2025 Opiates Ql (U) Negative < 300 ng/mL [facility] RBC Auto (Bld) [#/Vol]Ordere d By: Allan Jc on 05-03-2025 RBC (Bld) [#/Vol] 5.06 10*6/uL 4.6-6.2 [facility] Screening urine fentanyl cem surementOrdered By: Meseret Minor on 05-03-2025 fentaNYL Screen Ql (U) Negative [facility] Serum creatinine measurement (mass/volume)Ordered By: Allan Jc on 05-03-2025 Creatinine [Mass/Vol] 0.74 mg/dL 0.70-1.20 [facility] Serum glucose measurement (m ass/volume)Ordered By: Allan Jc on 05-03-2025 Glucose [Mass/Vol] 113 mg/dL High 70-99 [facility] Serum or plasma calcium pepe urement (mass/volume)Ordered By: Allan Jc on 05-03-2025 Calcium [Mass/Vol] 9.1 mg/dL 7.6-11.0 [facility] Serum or plasma cortisol cem surement (mass/volume)Ordered By: Meseret Minor on 05-03-2025 Cortisol [Mass/Vol] 7.33 ug/dL 2.68-10.50 [facility] Serum or plasma urea nitroge n measurement (mass/volume)Ordered By: Allan Jc on 05-03-2025 Urea nitrogen [Mass/Vol] 5 mg/dL 4-19 [facility] Serum or plasma uric acid me asurement (mass/volume)Ordered By: Meseret Minor on 05-03-2025 Urate [Mass/Vol] 3.1 mg/dL Low 3.5-7.2 [facility] Comment on above: The drugs N-Acetylcy steine and Metamizole may falsely depress this assay. Sodium levelOrdered By: Michael Jc on 05-03-2025 Sodium [Moles/Vol] 119 mmol/L Low 133-145 [facility] Comment on above: Critical Result(s) C alled at: 1620 by: SARA Oakley RN. Results read back by same. Squamous epithelial cells de tection in urine sediment by light microscopyOrdered By: Meseret Minor on 05-03-2025 Epithelial cells.squamous LM Ql (Urine sed) 0 SEEN /hpf 0-5 [facility] T4 Free Directon 05-03-2025 T4 FREE DIRECT 1.30 ng/dL Normal 0.76-1.46 [facility] Comment on above: Performed By: #### L 501.76392, L501.9520, L506.0400 ####[facility] [address] [place], [place], [id number] T4 freeOrdered By: Allan silva on 05-03-2025 Free T4 [Mass/Vol] 1.30 ng/dL 0.76-1.46 [facility] Free T4 [Mass/Vol] 1.30 ng/dL 0.76-1.46 [facility] TSH DL <= 0.005 mIU/L QnOrde red By: Meseret Minor on 05-03-2025 TSH Qn 0.950 uIU/mL 0.300-4.200 [facility] TSH DL <= 0.005 mIU/L QnOrde red By: Allan Jc on 05-03-2025 TSH Qn 1.050 uIU/mL 0.300-4.200 [facility] Thyroid Stim Hormone (TSH)on 05-03-2025 TSH 0.950 uIU/mL Normal 0.300-4.200 [facility] Comment on above: Performed By: #### L 500.2500, L501.4021, L100.0100 #### [facility] [address] [place], [place], [address] TSH 1.050 uIU/mL Normal 0.300-4.200 [facility] Comment on above: Performed By: #### L 501.33109, L501.9520, L506.0400 ####[facility] [address] [place], [address] Troponin T.cardiac [Mass/vol ume] in Serum or Plasma by High sensitivity methodOrdered By: Allan Jc on 05-03-2025 Troponin T.cardiac High sensitivity method [Mass/Vol] 9 ng/L <22 [facility] Troponin T.cardiac High sensitivity method [Mass/Vol] 9 ng/L <22 [facility] Troponin T.cardiac High sensitivity method [Mass/Vol] 9 ng/L <22 [facility] Uric Acidon 05-03-2025 URIC 3.1 mg/dL Low 3.5-7.2 [facility] Comment on above: Result Comment: The drugs N-Acetylcysteine and Metamizole may falsely depress this assay. Performed By: #### L 500.2500, L501.4021, L100.0100 #### [facility] [address] [place], [address] Urinalysis, Completeon 05-03 BACTERIA 0 SEEN Normal None Seen [facility] Comment on above: Order Comment: CLEAN CATCH Performed By: #### L 500.2500, L501.4021, L100.0100 #### [facility] Laboratory [address] [place], [address] EPI,SQUAMOUS 0 SEEN Normal 0-5 [facility] Comment on above: Order Comment: CLEAN CATCH Performed By: #### L 500.2500, L501.4021, L100.0100 #### [facility] Laboratory [address] [place], [address] Mucus Ql (Urine sed) 0 SEEN Normal [facility] Comment on above: Order Comment: CLEAN CATCH Performed By: #### L 500.2500, L501.4021, L100.0100 #### [facility] Laboratory [address] [place], [address] RBC 0 SEEN Normal 0-5 [facility] Comment on above: Order Comment: CLEAN CATCH Performed By: #### L 500.2500, L501.4021, L100.0100 #### [facility] [address] [place], [address] WBC 0 SEEN Normal 0-5 [facility] Comment on above: Order Comment: CLEAN CATCH Performed By: #### L 500.2500, L501.4021, L100.0100 #### [facility] [address] [place], [address] Urine benzodiazepine levelOr dered By: Meseret Minor on 05-03-2025 Benzodiazepines Ql (U) Negative < 200 ng/mL [facility] Urine clarityOrdered By: Magalie Minor on 05-03-2025 Clarity (U) Clear Clear [facility] Urine cocaine levelOrdered B y: Meseret Minor on 05-03-2025 Cocaine Ql (U) Negative < 300 ng/mL [facility] Urine color determinationOrd ered By: Meseret Minor on 05-03-2025 Color (U) Yellow Yellow [facility] Urine ybqtp-6-gnoiruhfxircmp abinol (THC) measurementOrdered By: Meseret Minor on 05-03-2025 Cannabinoids Screen Ql (U) Negative < 50 ng/mL [facility] Urine glucose detectionOrder ed By: Meseret Minor on 05-03-2025 Glucose Ql (U) Normal mg/dl Normal [facility] Urine leukocyte esterase det ection by dipstickOrdered By: Meseret Minor on 05-03-2025 Leukocyte esterase Test strip Ql (U) Negative Negative [facility] Urine pHOrdered By: Meseret Minor on 05-03-2025 pH (U) 7.0 [pH] 5.0 - 8.0 [facility] Urine phencyclidine (PCP) de tectionOrdered By: Meseret Minor on 05-03-2025 Phencyclidine Ql (U) Negative < 25 ng/mL [facility] Urine sediment bacteria coun t by microscopy (number/high power field)Ordered By: Meseret Minor on 05-03-2025 Bacteria LM.HPF (Urine sed) [#/Area] 0 /[HPF] None Seen [facility] Urine sodium measurement (mo les/volume)Ordered By: Meseret Minor on 05-03-2025 Sodium (U) [Moles/Vol] 33 mmol/L Not Establ. [facility] Urine specific gravity measu rementOrdered By: Meseret Minor on 05-03-2025 Specific gravity (U) [Rel density] 1.010 1.002-1.030 [facility] Urine urobilinogen measureme ntOrdered By: Meseret Minor on 05-03-2025 Urobilinogen Ql (U) Normal mg/dl Normal [facility] White blood cell (WBC) count Ordered By: Allan Jc on 05-03-2025 WBC (Bld) [#/Vol] 11.6 10*3/uL High 4.4-11.0 [facility] White blood cell countOrdere d By: Meseret Minor on 05-03-2025 White blood cell count 0 SEEN /hpf 0-5 [facility] Absolute lymphocyte countOrd ered By: Suzette Jay on 02-04-2024 Lymphocytes Auto (Unsp spec) [#/Vol] 2.33 10*3/uL 0.83-4.51 [facility] Automated lymphocyte count a s percentage of total leukocytesOrdered By: Suzette Jya on 02-04-2024 Lymphocytes/100 WBC Auto (Unsp spec) 15.5 % 19-41 [facility] Basophil percentageOrdered B y: Suzette Jay on 02-04-2024 Basophils/100 WBC (Bld) 0.8 % 0-1 [facility] Chloride [Moles/Vol] 102 mmol/L 98-107 [facility] Eosinophils/100 WBC (Bld) 0.1 % 0-5 [facility] Glucose [Mass/Vol] 99 mg/dL 74-106 [facility] Hemoglobin (Bld) [Mass/Vol] 16.0 g/dL 13.0-16.5 [facility] Monocytes/100 WBC (Bld) 10.0 % 0-10 [facility] Neutrophils (Bld) [#/Vol] 11.0 10*3/uL 2.0-7.7 [facility] Neutrophils/100 WBC (Bld) 73.1 % 47-70 [facility] Potassium [Moles/Vol] 3.8 mmol/L 3.5-5.1 [facility] Sodium [Moles/Vol] 138 mmol/L 136-145 [facility] WBC (Bld) [#/Vol] 15.0 10*3/uL 4.4-11.0 [facility] Determination of erythrocyte mean corpuscular volume (MCV)Ordered By: Suzette Jay on 02-04-2024 MCV (RBC) [Entitic vol] 86.6 fL 80-94 [facility] Erythrocyte distribution wid th ratioOrdered By: Suzette Jay on 02-04-2024 Erythrocyte distribution width (RBC) [Ratio] 13.0 % 11.6-14.6 [facility] Erythrocyte distribution wid th standard deviationOrdered By: Suzette Jay on 02-04-2024 Erythrocyte distribution width (RBC) [Entitic vol] 40.7 fL 35.1-43.9 [facility] Hematocrit Auto (Bld) [Volum e fraction]Ordered By: Suzette Jay on 02-04-2024 Hematocrit (Bld) [Volume fraction] 46.5 % 40-54 [facility] Immature granulocytes/100 WB C Auto (Bld)Ordered By: Suzette Jay on 02-04-2024 Immature granulocytes/100 WBC (Bld) 0.500 % 0.0-0.9 [facility] Comment on above: IG% - Immature Granu locytes (promyelocytes, myelocytes and metamyelocytes) > 1% indicates that a LEFT SHIFT is Present. Laboratory - Chemistry and C hemistry - challengeOrdered By: Suzette Jay on 02-04-2024 CO2 [Moles/Vol] 25.0 mmol/L 21.0-32.0 [facility] Urea nitrogen/Creatinine [Mass ratio] 10.5 mg/mg 10- [facility] Laboratory - Drug toxicology Ordered By: Suzette Jay on 02-04-2024 Amphetamines Ql (U) Positive <1000 ng/mL [facility] Benzodiazepines Ql (U) Negative < 200 ng/mL [facility] Cannabinoids Screen Ql (U) Negative < 50 ng/mL [facility] Cocaine Ql (U) Negative < 300 ng/mL [facility] Opiates Ql (U) Negative < 300 ng/mL [facility] Laboratory - Hematology and Cell countsOrdered By: Suzette Jay on 02-04-2024 MCH (RBC) [Entitic mass] 29.8 pg 27.0-32.0 [facility] MCHC (RBC) [Mass/Vol] 34.4 g/dL 32-36 [facility] Nucleated RBC/100 WBC (Bld) [Ratio] 0 % 0-5 [facility] Platelet mean volume (Bld) [Entitic vol] 10.6 fL 6.2-12.0 [facility] Platelets (Bld) [#/Vol] 298 10*3/uL 150-450 [facility] No Panel InformationOrdered By: Suzette Jay on 02-04-2024 Estimated Creatinine Clearance Calc 122.02 ml/min [facility] Estimated GFR (MDRD) Amer 106 mL/min >60 [facility] Comment on above: GFR Calc Estimated GFR (MDRD) Non-Af Amer 87 mL/min >60 [facility] Comment on above: Non- GFR Calc Ethyl Alcohol Level < 3.0 mg/dL [facility] Comment on above: The serum:whole bloo d ethanol ratio is approximately 1.14and varies slightly with hematocrit. Medical Alcohol reference interval and critical value innon-tolerant individuals; 50 - 100 Impairment 100 Intoxication 100 - 250 Severe Poisoning 250 - 400 Deep/possible fatal coma MDMA (Ecstasy) Screen Positive < 500 ng/mL [facility] Urine Barbiturates Screen Negative < 200 ng/mL [facility] Urine Drug Screen Comment [facility] Comment on above: CONFIRMATORY TESTING FOR [...] Methadone Screen Negative < 300 ng/mL [facility] RBC Auto (Bld) [#/Vol]Ordere d By: Suzette Jay on 02-04-2024 RBC (Bld) [#/Vol] 5.37 10*6/uL 4.6-6.2 [facility] Serum or plasma calcium pepe urement (mass/volume)Ordered By: Suzette Jay on 02-04-2024 Calcium [Mass/Vol] 9.0 mg/dL 8.5-10.1 [facility] Serum or plasma creatinine m easurement (mass/volume)Ordered By: Suzette Jay on 02-04-2024 Creatinine [Mass/Vol] 0.95 mg/dL 0.70-1.30 [facility] Comment on above: The validity of the calculated GFR & GFRAA in patients over 70 years has not been determined. Clinical correlation is essential. Serum or plasma urea nitroge n measurement (mass/volume)Ordered By: Suzette Jay on 02-04-2024 Urea nitrogen [Mass/Vol] 10 mg/dL 7-18 [facility] Thin prep Papanicolaou smear with manual screeningOrdered By: Suzette Jay on 02-04-2024 Thin prep Papanicolaou smear with manual screening 11 5-15 [facility] Urine phencyclidine (PCP) de tectionOrdered By: Suzette Jay on 02-04-2024 Phencyclidine Ql (U) Negative < 25 ng/mL [facility] BNPon 11-15-2022 Natriuretic peptide B (Bld) [Mass/Vol] 109 pg/mL High 0 - 99 [facility] Comment on above: Result Comment: . <1 00 pg/mL - Heart failure unlikely 100-299 pg/mL - Intermediate probability of acute heart . failure exacerbation. Correlate with clinical . context and patient history. >=300 pg/mL - Heart Failure likely. Correlate with clinical . context and patient history. BNP testing is performed using different testing methodology at [facility] than at other [facility]. Direct result comparisons should only be made within the same method. Performed By: #### B NP2 #### [place] [id number] CBC AND DIFFERENTIALon 11-15 % AUTOMATED IMMATURE GRAN 0.4 % Normal 0.0 - 0.9 [facility] Comment on above: Result Comment: Hanna ture Granulocyte Count (IG) includes promyelocytes, myelocytes and metamyelocytes but does not include bands. Percent differential counts (%) should be interpreted in the context of the absolute cell counts (cells/L). Performed By: #### C BCDF #### [address] [address] Basophils (Bld) [#/Vol] 0.02 10*3/uL Normal 0.00 - 0.1 0 [place]/[facility] Comment on above: Performed By: #### C BCDF #### [address] [address] Basophils/100 WBC (Bld) 0.1 % Normal 0.0 - 2.0 [place] Comment on above: Performed By: #### C BCDF #### [address] [address] Lymphocytes (Bld) [#/Vol] 1.94 10*3/uL Normal 1.20 - 4.80 [place] Comment on above: Performed By: #### C BCDF #### [place] [address] Lymphocytes/100 WBC (Bld) 14.5 % Normal 13.0 - 44.0 [place] Comment on above: Performed By: #### C BCDF #### [address] [address] Monocytes (Bld) [#/Vol] 1.27 10*3/uL High 0.10 - 1.0 0 [place] Comment on above: Performed By: #### C BCDF #### [place] [address] Monocytes/100 WBC (Bld) 9.5 % Normal 2.0 - 10.0 [place] Comment on above: Performed By: #### C BCDF #### [address] [address] Neutrophils (Bld) [#/Vol] 10.08 10*3/uL High 1.20 - 7.70 [place] Comment on above: Performed By: #### C BCDF #### [address] [address] Neutrophils/100 WBC (Bld) 75.5 % Normal 40.0 - 80.0 [place] Comment on above: Performed By: #### C BCDF #### [address] [address] Erythrocyte distribution width (RBC) [Ratio] 13.5 % Normal 11.5 - 14.5 [place] Comment on above: Performed By: #### C BCDF #### [address] [address] Hematocrit (Bld) [Volume fraction] 39.4 % Low 41.0 - 52.0 [place] Comment on above: Performed By: #### C BCDF #### [address] [address] Hemoglobin (Bld) [Mass/Vol] 13.9 g/dL Normal 13.5 - 17.5 [place] Comment on above: Performed By: #### C BCDF #### [address] [address] MCHC (RBC) [Mass/Vol] 35.3 g/dL Normal 32.0 - 36.0 [place] Comment on above: Performed By: #### C BCDF #### [place] [id number] MCV (RBC) [Entitic vol] 84 fL Normal 80 - 100 [place] Comment on above: Performed By: #### C BCDF #### [address] [address] Platelets (Bld) [#/Vol] 225 10*3/uL Normal 150 - 450 [place] Comment on above: Performed By: #### C BCDF #### [address] [address] RBC 4.68 x10E12/L Normal 4.50 - 5.90 [place]/[facility] Comment on above: Performed By: #### C BCDF #### [address] [address] WBC (Bld) [#/Vol] 13.4 10*3/uL High 4.4 - 11.3 [place] Comment on above: Performed By: #### C BCDF #### [address] [address] COMPREHENSIVE PANELon 2021 Albumin [Mass/Vol] 3.9 g/dL Normal 3.4 - 5.0 [place] on/Po [facility] Comment on above: Performed By: #### C MP #### [address] [address] ALP [Catalytic activity/Vol] 57 U/L Normal 33 - 120 [place] Comment on above: Performed By: #### C MP #### [address] [address] ALT [Catalytic activity/Vol] 21 U/L Normal 10 - 52 [place] Comment on above: Result Comment: Suly ents treated with Sulfasalazine may generate falsely decreased results for ALT. Performed By: #### C MP #### [address] [address] Anion gap [Moles/Vol] 14 mmol/L Normal 10 - 20 [place]/[facility] Comment on above: Performed By: #### C MP #### [address] [address] AST [Catalytic activity/Vol] 51 U/L High 9 - 39 [place] Comment on above: Performed By: #### C MP #### [address] [address] Bilirubin [Mass/Vol] 0.9 mg/dL Normal 0.0 - 1.2 [place] Comment on above: Performed By: #### C MP #### [address] [address] Calcium [Mass/Vol] 8.8 mg/dL Normal 8.6 - 10.3 [place] on/[facility] Comment on above: Performed By: #### C MP #### [address] [address] Chloride [Moles/Vol] 95 mmol/L Low 98 - 107 [place] Comment on above: Performed By: #### C MP #### [address] [address] Creatinine [Mass/Vol] 0.93 mg/dL Normal 0.50 - 1.30 [place] Comment on above: Performed By: #### C MP #### [address] [address] eGFR MALE >90 Normal >90 [place] Comment on above: Result Comment: CALC ULATIONS OF ESTIMATED GFR ARE PERFORMED USING THE 2020 CKD-EPI STUDY REFIT EQUATION WITHOUT THE RACE VARIABLE FOR THE IDMS-TRACEABLE CREATININE METHODS. https://jasn.asnjournals.org/content//ASN.2020 153175 Performed By: #### C MP #### [address] [address] Glucose [Mass/Vol] 120 mg/dL High 74 - 99 [place]/[facility] Comment on above: Performed By: #### C MP #### [address] [address] HCO3 (Bld) [Moles/Vol] 27 mmol/L Normal 21 - 32 [place] Comment on above: Performed By: #### C MP #### [address] [address] Potassium [Moles/Vol] 3.3 mmol/L Low 3.5 - 5.3 [place]/[facility] Comment on above: Performed By: #### C MP #### [address] [address] Protein [Mass/Vol] 7.4 g/dL Normal 6.4 - 8.2 [place] on/[facility] Comment on above: Performed By: #### C MP #### [address] [address] Sodium [Moles/Vol] 133 mmol/L Low 136 - 145 [place] on/[facility] Comment on above: Performed By: #### C MP #### [address] [address] Urea nitrogen [Mass/Vol] 8 mg/dL Normal 6 - 23 [place] Comment on above: Performed By: #### C #### [facility] [address] [place] [address] Covid 19 Resultson 2 SARS-CoV-2 (COVID-19) RNA [...] also be contacted by the [facility] to see if any [...] or Naproxen (Aleve) can also be used. Ognt-xaj-nufaxss cough and cold medicines can be used according to the instructions on the package. Some dtpw-bfu-nzmmlje medicines also contain acetaminophen. Make sure you [...] water are not available, use alcohol-based hand travel med surg rn. Avoid touching your eyes, nose, and mouth [...] 24 dallin (more content not included)... Normal [facility] EMR ADDONon 11-15-2022 ADDON CONFIRMATION REQUEST REC'D Normal [facility] Comment on above: Performed By: #### C OINP #### [place] [address] INFLUENZA A/B, COVID 2019 PC R,SYMPTOMATICon 11-15-2022 INFLUENZA A, PCR Detected Abnormal Not Detected [facility] Comment on above: Result Comment: Resp iratory virus testing is performed routinely by PCR for Influenza A/B and RSV. Not Detected results do not preclude Influenza A/B or RSV infections since the adequacy of sample collection or low viral burden may impact the clinical sensitivity of this test method. Performed By: #### C OINP #### [place] [address] INFLUENZA B, PCR Not detected Normal Not Detected [facility] Comment on above: Result Comment: Resp iratory virus testing is performed routinely by PCR for Influenza A/B and RSV. Not Detected results do not preclude Influenza A/B or RSV infections since the adequacy of sample collection or low viral burden may impact the clinical sensitivity of this test method. Performed By: #### C OINP #### [place] [address] Lab Specimen Source Nasal, Nasopharyngeal Normal [facility] Comment on above: Performed By: #### C OINP #### [place] [address] SARS-CoV-2 (COVID-19) RNA LEROY+probe Ql (Unsp spec) Not detected Normal Not Detected [facility] Comment on above: Result Comment: . [...] complexity testing. Testing is performed in the [facility] laboratory located at [address] [place] [address]. SARS-CoV-2/Flu/RSV Multiplex Test: Fact sheet for providers: https://www.fda.gov/media/395276/download Fact sheet for patients: https://www.fda.gov/media/029932/download Performed By: #### C OINP #### [place] [address] PT/INRon 11-15-2022 PT Coag (PPP) [Time] 14.2 s High 9.8 - 13.4 [facility] Comment on above: Performed By: #### P TINR #### [place] [address] PT, INR 1.2 High 0.9 - 1.1 [place]/[facility] Comment on above: Performed By: #### P TINR #### [place] [address] Provider Note - ED v3on 10-28 Provider [...] limitation. No acute ST elevation is identified. SD interval is 171 and QTc is 460. [...] 13.9 Anion (more content not included)... Normal [facility] RED CELL MORPHOLOGYon 2021 RBC morphology finding Nom (Bld) SEE COMMENT Normal [facility] Comment on above: Result Comment: NO S IGNIFICANT RBC ABNORMALITIES SEEN ON SMEAR REVIEW. Performed By: #### M ORP2 #### [facility] [address] [place] [address] TROPONIN I, HIGH SENSITIVITY on 11-15-2022 TROPONIN I, HIGH SENSITIVITY Canceled Normal [facility] Comment on above: Order Comment: TEST [...] performed using a different testing methodology at [facility] than at other [facility]. Direct result comparisons should only be made within the same method. Performed By: #### C OINP #### [facility] [address] [place] [address] TROPONIN I, HIGH SENSITIVITY 14 ng/L Normal 0 - 20 [facility] Comment on above: Result Comment: . [...] performed using a different testing methodology at [facility] than at other [facility]. Direct result comparisons should only be made within the same method. Performed By: #### T [facility] #### [facility] [address] [place] [address] Triage - EDon 11-15-2022 Triage - ED Quick Triage: The patient and/or guardian verbally acknowledges placement for services into the following (when Urgent Care Service hours are operating):emergency department Chart Review: ARRIVAL INFORMATION Means of Arrival: Ambulatory Mode of Arrival: private vehicle Arrival From: home Accompanied By: self Language: Spoken Language Preferred: Honduran Reading Language Preferred: Honduran CHIEF COMPLAINT LYNNETTE GONG is a Male [...] 14-Nov-2022 22:36 by Dana Aguirre (RN) Normal [place]/[facility] UA MICROSCOPICon 11-15-2022 RBC 4 /HPF Normal 0-5 [facility] Comment on above: Performed By: #### U AMIC #### [address] [address] WBC 2 /HPF Normal 0-5 [place] Comment on above: Performed By: #### U AMIC #### [address] [address] URINALYSISon 11-15-2022 Appearance (U) Clear Normal CLEAR [place] o [facility] Comment on above: Performed By: #### C OINP #### [address] [address] Bilirubin Ql (U) Negative Normal NEGATIVE [place] /[facility] Comment on above: Performed By: #### C OINP #### [address] [address] Color (U) Yellow Normal STRAW,YELLO W [place] Comment on above: Performed By: #### C OINP #### [address] [address] Glucose Ql (U) Negative Normal NEGATIVE [place] [facility] Comment on above: Performed By: #### C OINP #### [address] [address] Hemoglobin Ql (U) SMALL(1+) Abnormal NEGATIVE [facility] Comment on above: Performed By: #### C OINP #### [address] [address] Ketones Ql (U) 5(Trace) mg/dl Abnormal NEGATIVE [place]/[facility] Comment on above: Performed By: #### C OINP #### [address] [address] Leukocyte esterase Test strip Ql (U) Negative Normal NEGATIVE [place] Comment on above: Performed By: #### C OINP #### [address] [address] Nitrite Ql (U) Negative Normal NEGATIVE [place] [facility] Comment on above: Performed By: #### C OINP #### [address] [address] pH (U) 6.0 [pH] Normal 5.0 - 8.0 [place] Comment on above: Performed By: #### C OINP #### [address] [address] Protein Ql (U) 100(2+) Abnormal NEGATIVE [place] [facility] Comment on above: Performed By: #### C OINP #### [address] [address] Specific gravity (U) [Rel density] 1.021 Normal 1.005 - 1.035 [place] Comment on above: Performed By: #### C OINP #### [address] [address] Urobilinogen (U) [Mass/Vol] 4.0 mg/dL High 0.0 - 1.9 [place] Comment on above: Result Comment: SOME PIGMENTS AND MEDICATIONS MAY CAUSE A FALSE POSITIVE UROBILINOGEN Performed By: #### C OINP #### [address] [address] VENOUS FULL PANELon 12-20-20 22 Anion gap [Moles/Vol] 12 mmol/L Normal 10 - 25 [place]/[facility] Comment on above: Performed By: #### V FPA4 #### [address] [address] BASE EXCESS-BLOOD 3.2 mmol/L High -2.0 - 3.0 [facility] n/Po [facility] Comment on above: Performed By: #### V FPA4 #### [address] [address] BICARB, CALCULATED 28.5 mmol/L High 22.0 - 26.0 [place] Comment on above: Performed By: #### V FPA4 #### [place] [address] CALCIUM,IONIZED 1.13 mmol/L Normal 1.10 - 1.33 [facility] n/[facility] Comment on above: Performed By: #### V FPA4 #### [address] [address] Chloride [Moles/Vol] 94 mmol/L Low 98 - 107 [place] Comment on above: Performed By: #### V FPA4 #### [address] [address] Glucose [Mass/Vol] 128 mg/dL High 74 - 99 [place] on/[facility] Comment on above: Performed By: #### V FPA4 #### [address] [address] Hematocrit (Bld) [Volume fraction] 42.0 % Normal 41.0 - 52.0 [place] Comment on above: Performed By: #### V FPA4 #### [address] [address] Hemoglobin (Bld) [Mass/Vol] 13.9 g/dL Normal 13.5 - 17.5 [place]/[facility] Comment on above: Performed By: #### V FPA4 #### [address] [address] Lactate [Moles/Vol] 1.1 mmol/L Normal 0.4 - 2.0 [place] [facility] Comment on above: Performed By: #### V FPA4 #### [address] [address] OXY HGB 51.7 % Normal 45.0 - 75.0 [place] Comment on above: Performed By: #### V FPA4 #### [address] [address] Oxygen (Bld) [Partial pressure] 31 mm[Hg] Low 35 - 45 [place]/[facility] Comment on above: Performed By: #### V FPA4 #### [address] [address] PATIENT TEMPERATURE 37.0 degrees C Normal [place]/[facility] Comment on above: Result Comment: NOTE : PATIENT RESULTS ARE NOT CORRECTED FOR TEMPERATURE. Performed By: #### V FPA4 #### [address] [address] PCO2 45 mmHg Normal 41 - 51 [place]/[facility] Comment on above: Performed By: #### V FPA4 #### [address] [address] pH (Bld) 7.41 [pH] Normal 7.33 - 7.43 [place]/[facility] Comment on above: Performed By: #### V FPA4 #### [address] [address] Potassium [Moles/Vol] 3.2 mmol/L Low 3.5 - 5.3 [place] inson/Po [facility] Comment on above: Performed By: #### V FPA4 #### [address] [address] SO2 53 % Normal 45 - 75 [place]/[facility] Comment on above: Performed By: #### V FPA4 #### [address] [address] Sodium [Moles/Vol] 131 mmol/L Low 136 - 145 [place] on/Po [facility] Comment on above: Performed By: #### V FPA4 #### [address] [address] Vital Signs Date Time Vital Sign Value Performing Clinician Adrianne block 09-17-2025 14:05-0400 Body temperature 97.2 [degF] Deborah Crispin WHOLESALE MANAGER-C Work Phone: [facility] 09-17-2025 14:05-0400 Diastolic blood pressure 92 mm[Hg] Deborah Crispin WHOLESALE MANAGER-C Work Phone: [facility] 09-17-2025 14:05-0400 Heart rate 67 /min Deborah Crispin WHOLESALE MANAGER-C Work Phone: [facility] 09-17-2025 14:05-0400 Respiratory rate 16 /min Deborah Crispin WHOLESALE MANAGER-C Work Phone: [facility] 09-17-2025 14:05-0400 SaO2% (BldA) [Mass fraction] 99 % Deborah Crispin WHOLESALE MANAGER-C Work Phone: [facility] 09-17-2025 14:05-0400 Systolic blood pressure 162 mm[Hg] Deborah Crispin WHOLESALE MANAGER-C Work Phone: [facility] 09-17-2025 12:52-0400 Body height 170.18 cm Deborah Crispin WHOLESALE MANAGER-C Work Phone: [facility] 09-17-2025 12:52-0400 Body mass index (BMI) [Ratio] 45.6 kg/m2 Deborah Crispin WHOLESALE MANAGER-C Work Phone: [facility] 09-17-2025 12:52-0400 Body weight 132 kg Deborah Crispin WHOLESALE MANAGER-C Work Phone: [facility] 08-14-2025 09:48-0400 Body height 170.[address] Allan Jc DO Work Phone: 2(088)151-487793 [place] [address] 08-14-2025 09:48-0400 Body temperature 96.1 [degF] Dr. Allan Jc DO Work Phone: 8(770)325-259593 [place] [address] 08-14-2025 09:48-0400 Diastolic blood pressure 71 mm[Hg] Dr. Allan Jc DO Work Phone: 1(506)783-216193 [place] [address] 08-14-2025 09:48-0400 Heart rate 67 /min Dr. Allan Jc DO Work Phone: 1(253)025-809693 [place] [address] 08-14-2025 09:48-0400 Respiratory rate 18 /min Dr. Allan Jc DO Work Phone: 5(832)414-650124 [address] 08-14-2025 09:48-0400 SaO2% (BldA) [Mass fraction] 97 % Dr. Allan Jc DO Work Phone: 2(523)780-347693 [place] [address] 08-14-2025 09:48-0400 Systolic blood pressure 142 mm[Hg] Dr. Allan Jc DO Work Phone: 2(936)905-179593 [place] [address] 08-11-2025 14:40-0400 Body height 170.[address] Allan Jc DO Work Phone: 7(264)863-216093 [place] [address] 08-11-2025 14:40-0400 Body mass index (BMI) [Ratio] 47.6 kg/m2 Dr. Allan Jc DO Work Phone: 6(441)075-081993 [place] [address] 08-11-2025 14:40-0400 Body temperature 98.8 [degF] Dr. Allan Jc DO Work Phone: 8(201)843-274293 [place] [address] 08-11-2025 14:40-0400 Body weight [address] Allan Jc DO Work Phone: 2(472)698-934393 [place] [address] 08-11-2025 14:40-0400 Diastolic blood pressure 87 mm[Hg] Dr. Allan Jc DO Work Phone: 3(121)497-741693 [place] [address] 08-11-2025 14:40-0400 Heart rate 82 /min Dr. Allan Jc DO Work Phone: 3(428)110-453593 [place] [address] 08-11-2025 14:40-0400 Respiratory rate 18 /min Dr. Allan Jc DO Work Phone: 8(914)829-765193 [place] [address] 08-11-2025 14:40-0400 SaO2% (BldA) [Mass fraction] 93 % Dr. Allan Jc DO Work Phone: 0(751)012-683993 [place] [address] 08-11-2025 14:40-0400 Systolic blood pressure 144 mm[Hg] Dr. Allan Jc DO Work Phone: 4(555)559-789377 [place] [address] 07-17-2025 11:52-0400 Body height 170.[address] Allan Jc DO Work Phone: 9(498)976-998977 [place] [address] 07-17-2025 11:52-0400 Body mass index (BMI) [Ratio] 48.6 kg/m2 Dr. Allan Jc DO Work Phone: 7(191)674-554377 [place] [address] 07-17-2025 11:52-0400 Body weight 140.[address] Allan Jc DO Work Phone: 3(215)303-198893 [place] [address] 07-17-2025 11:52-0400 Diastolic blood pressure 83 mm[Hg] Dr. Allan Jc DO Work Phone: 3(025)273-317893 [place] [address] 07-17-2025 11:52-0400 Heart rate 74 /min Dr. Allan Jc DO Work Phone: 8(176)533-214493 [place] [address] 07-17-2025 11:52-0400 Respiratory rate 14 /min Dr. Allan Jc DO Work Phone: 8(928)806-580093 [place] [address] 07-17-2025 11:52-0400 SaO2% (BldA) [Mass fraction] 97 % Dr. Allan Jc DO Work Phone: 8(990)148-813693 [place] [address] 07-17-2025 11:52-0400 Systolic blood pressure 143 mm[Hg] Dr. Allan Jc DO Work Phone: 3(518)898-202693 [place] [address] 06-23-2025 17:47-0400 Body temperature 98.1 [degF] Dr. Allan Jc DO Work Phone: 1(313)966-713693 [place] [address] 06-23-2025 17:47-0400 Diastolic blood pressure 80 mm[Hg] Dr. Allan Jc DO Work Phone: 3(183)172-149093 [place] [address] 06-23-2025 17:47-0400 Heart rate 79 /min Dr. Allan Jc DO Work Phone: 6(996)866-271677 [place] [address] 06-23-2025 17:47-0400 Respiratory rate 20 /min Dr. Allan Jc DO Work Phone: 7(608)739-868777 [place] [address] 06-23-2025 17:47-0400 SaO2% (BldA) [Mass fraction] 98 % Dr. Allan Jc DO Work Phone: 3(529)403-782493 [place] [address] 06-23-2025 17:47-0400 Systolic blood pressure 131 mm[Hg] Dr. Allan Jc DO Work Phone: 1(486)822-720793 [place] [address] 06-23-2025 15:12-0400 Body height 170.[address] Allan Jc DO Work Phone: 7(081)557-513793 [place] [address] 06-23-2025 15:12-0400 Body mass index (BMI) [Ratio] 48.7 kg/m2 Dr. Allan Jc DO Work Phone: 7(732)548-631593 [place] [address] 06-23-2025 15:12-0400 Body weight 141.[address] Allan Jc DO Work Phone: 4(396)854-991093 [place] [address] 06-10-2025 13:03-0400 Body height 170.[address] Allan Jc DO Work Phone: 5(956)052-946193 [place] [address] 06-10-2025 13:03-0400 Body mass index (BMI) [Ratio] 50.6 kg/m2 Dr. Allan Jc DO Work Phone: 6(375)480-933193 [place] [address] 06-10-2025 13:03-0400 Body temperature 98.4 [degF] Dr. Allan Jc DO Work Phone: 7(523)311-864093 [place] [address] 06-10-2025 13:03-0400 Body weight 146.[address] Allan Jc DO Work Phone: 8(961)436-543793 [place] [address] 06-10-2025 13:03-0400 Diastolic blood pressure 71 mm[Hg] Dr. Allan Jc DO Work Phone: 0(222)413-457093 [place] [address] 06-10-2025 13:03-0400 Heart rate 75 /min Dr. Allan Jc DO Work Phone: 6(584)710-132377 [place] [address] 06-10-2025 13:03-0400 Respiratory rate 18 /min Dr. Allan Jc DO Work Phone: 9(350)416-639377 [place] [address] 06-10-2025 13:03-0400 SaO2% (BldA) [Mass fraction] 96 % Dr. Allan Jc DO Work Phone: 5(991)905-886777 [place] [address] 06-10-2025 13:03-0400 Systolic blood pressure 110 mm[Hg] Dr. Allan Jc DO Work Phone: 4(746)895-931377 [place] [address] 05-12-2025 13:30-0400 Body height 170.[address] Allan Jc DO Work Phone: 1(609)196-951077 [place] [address] 05-12-2025 13:30-0400 Body mass index (BMI) [Ratio] 51.9 kg/m2 Dr. Allan Jc DO Work Phone: 5(121)477-438893 [place] [address] 05-12-2025 13:30-0400 Body temperature 97.2 [degF] Dr. Allan Jc DO Work Phone: 9(790)029-071493 [place] [address] 05-12-2025 13:30-0400 Body weight 150.[address] Allan Jc DO Work Phone: 3(587)270-504093 [place] [address] 05-12-2025 13:30-0400 Diastolic blood pressure 82 mm[Hg] Dr. Allan Jc DO Work Phone: 5(527)792-476793 [place] [address] 05-12-2025 13:30-0400 Heart rate 84 /min Dr. Allan Jc DO Work Phone: 8(984)862-491793 [place] [address] 05-12-2025 13:30-0400 Respiratory rate 18 /min Dr. Allan Jc DO Work Phone: 7(045)320-536793 [place] [address] 05-12-2025 13:30-0400 SaO2% (BldA) [Mass fraction] 97 % Dr. Allan Jc DO Work Phone: 4(433)231-071193 [place] [address] 05-12-2025 13:30-0400 Systolic blood pressure 148 mm[Hg] Dr. Allan cJ DO Work Phone: 8(409)880-651693 [place] [address] 05-05-2025 11:40-0400 Diastolic blood pressure 106 mm[Hg] Dr. Allan Jc DO Work Phone: 2(490)551-187477 [place] [address] 05-05-2025 11:40-0400 Heart rate 71 /min Dr. Allan Jc DO Work Phone: 1(669)436-186993 [place] [address] 05-05-2025 11:40-0400 Respiratory rate 18 /min Dr. Allan Jc DO Work Phone: 6(900)734-595093 [place] [address] 05-05-2025 11:40-0400 SaO2% (BldA) [Mass fraction] 96 % Dr. Allan Jc DO Work Phone: 2(772)062-974393 [place] [address] 05-05-2025 11:40-0400 Systolic blood pressure 140 mm[Hg] Dr. Allan Jc DO Work Phone: 7(371)072-491893 [place] [address] 05-05-2025 10:19-0400 SaO2% (BldA) [Mass fraction] 99 % Dr. Allan Jc DO Work Phone: 2(602)486-034893 [place] [address] 05-05-2025 08:45-0400 Body temperature 97.7 [degF] Dr. Allan Jc DO Work Phone: 2(291)830-676593 [place] [address] 05-05-2025 08:45-0400 Diastolic blood pressure 88 mm[Hg] Dr. Allan Jc DO Work Phone: 7(091)738-128893 [place] [address] 05-05-2025 08:45-0400 Heart rate 64 /min Dr. Allan Jc DO Work Phone: 8(122)905-826193 [place] [address] 05-05-2025 08:45-0400 Respiratory rate 20 /min Dr. Allan Jc DO Work Phone: 0(632)220-694277 [place] [address] 05-05-2025 08:45-0400 Systolic blood pressure 149 mm[Hg] Dr. Allan Jc DO Work Phone: 4(639)165-337093 [place] [address] 05-05-2025 03:46-0400 Body mass index (BMI) [Ratio] 47.7 kg/m2 Dr. Allan Jc DO Work Phone: 5(250)734-192793 [place] [address] 05-05-2025 03:46-0400 Body weight 146.[address] Allan Jc DO Work Phone: 5(140)066-440293 [place] [address] 05-03-2025 19:20-0400 Body height 175.[address] Allan Jc DO Work Phone: 6(326)950-838993 [place] [address] 05-03-2025 18:11-0400 Body temperature 98.1 [degF] Dr. Allan Jc DO Work Phone: 0(285)033-991293 [place] [address] 05-03-2025 18:11-0400 Diastolic blood pressure 89 mm[Hg] Dr. Allan Jc DO Work Phone: 4(128)071-875093 [place] [address] 05-03-2025 18:11-0400 Heart rate 73 /min Dr. Allan Jc DO Work Phone: 4(565)057-278093 [place] [address] 05-03-2025 18:11-0400 Respiratory rate 16 /min Dr. Allan Jc DO Work Phone: 0(197)672-832193 [place] [address] 05-03-2025 18:11-0400 SaO2% (BldA) [Mass fraction] 98 % Dr. Allan Jc DO Work Phone: 9(957)294-858093 [place] [address] 05-03-2025 18:11-0400 Systolic blood pressure 159 mm[Hg] Dr. Allan Jc DO Work Phone: 8(226)330-596293 [place] [address] 05-03-2025 15:37-0400 Body height 175.[address] Allan Jc DO Work Phone: [facility] 05-03-2025 15:37-0400 Body mass index (BMI) [Ratio] 48.4 kg/m2 Dr. Allan Jc DO Work Phone: [facility] 05-03-2025 15:37-0400 Body weight 148.[address] Allan Jc DO Work Phone: [facility] 02-04-2024 17:39-0400 Body height 175.26 cm [facility] 02-04-2024 17:39-0400 Body mass index (BMI) [Ratio] 44.4 kg/m2 [facility] 02-04-2024 17:39-0400 Body temperature 96.3 [degF] [facility] 02-04-2024 17:39-0400 Body weight 136.57 kg [facility] 02-04-2024 17:39-0400 Diastolic blood pressure 90 mm[Hg] [facility] 02-04-2024 17:39-0400 Heart rate 100 /min [facility] 02-04-2024 17:39-0400 Respiratory rate 22 /min [facility] 02-04-2024 17:39-0400 SaO2% (BldA) [Mass fraction] 100 % [facility] 02-04-2024 17:39-0400 Systolic blood pressure 149 mm[Hg] [facility] 09-20-2022 12:45-0400 Body height 177.8 cm [facility] Work Phone: 09-20-2022 12:45-0400 Body mass index (BMI) [Ratio] 44.4 kg/m2 [facility] Work Phone: 09-20-2022 12:45-0400 Body temperature 97.7 [degF] [facility] Work Phone: 09-20-2022 12:45-0400 Body weight 140.61 kg [facility] Work Phone: 09-20-2022 12:45-0400 Diastolic blood pressure 80 mm[Hg] [facility] Work Phone: 09-20-2022 12:45-0400 Heart rate 98 /min [facility] Work Phone: 09-20-2022 12:45-0400 Respiratory rate 18 /min [facility] Work Phone: 09-20-2022 12:45-0400 SaO2% (BldA) [Mass fraction] 96 % [facility] Work Phone: 09-20-2022 12:45-0400 Systolic blood pressure 160 mm[Hg] [facility] Work Phone: Encounters Encounter Date Encounter Type Care Provider Facility Start: 09-23-2025 End: 09-23-2025 ambulatory [facility] Facility:[facility] Start: 09-23-2025 End: 09-23-2025 ambulatory [facility] Facility:[facility] Start: 09-17-2025 Non-patient / Non-visit Tito Morris DO -[facility] Start: 09-17-2025 End: 09-17-2025 Admission to same day surgery center Tito Morris DO -Endoscopy Work Phone: Start: 09-17-2025 End: 09-17-2025 ambulatory [facility] Facility:[facility] Start: 08-26-2025 End: 08-26-2025 Patient encounter procedure Debbie SCHWARTZ -[facility] Work Phone: Start: 08-26-2025 End: 08-26-[address] Allan Jc DO Work Phone: -[facility] Start: 08-14-2025 End: 08-14-2025 Patient encounter procedure Elizabet BLOCK -[facility] Work Phone: Start: 08-14-2025 End: 08-14-[address] Allan Jc DO Work Phone: -[facility] Start: 08-11-2025 End: 08-11-2025 Patient encounter procedure Elizabet BLOCK -[facility] Work Phone: Start: 08-11-2025 End: 08-11-[address] Allan Jc DO Work Phone: -[facility] Start: 08-04-2025 End: 08-04-[address] Allan Jc DO Work Phone: -[facility] Start: 08-04-2025 End: 08-04-2025 Patient encounter procedure Deborah BLOCK -[facility] Start: 08-04-2025 End: 08-04-2025 ambulatory Deborah Roa Facility:[facility] Start: 07-17-2025 End: 07-17-[address] Allan Jc DO Work Phone: -Laboratory Start: 07-17-2025 End: 07-17-2025 Patient encounter procedure Elizabet BLOCK -Laboratory Work Phone: Start: 07-17-2025 End: 07-17-2025 Patient encounter procedure Elizabet BLOCK -[facility] Work Phone: Start: 07-17-2025 End: 07-17-[address] Allan Jc DO Work Phone: -[facility] Start: 07-17-2025 End: 07-17-2025 ambulatory Elizabet Diop Facility:[facility] Start: 06-23-2025 End: 06-23-2025 Emergency department patient visit Dr. Allan Jc DO Work Phone: -Emergency Department Work Phone: Start: 06-18-2025 ambulatory [facility] y:[facility] Start: 06-17-2025 End: 06-17-[address] Allan Jc DO Work Phone: -Laboratory [place] Start: 06-17-2025 End: 06-17-2025 Patient encounter procedure Deborah Roa WHOLESALE MANAGER-C -[facility] [place] Work Phone: Start: 06-17-2025 End: 06-17-2025 ambulatory Deborah Roa Facility:[facility] Start: 06-10-2025 End: 06-10-2025 Patient encounter procedure Anay HiJorgito WHOLESALE MANAGER-C -[facility] Work Phone: Start: 06-10-2025 End: 06-10-[address] Allan Jc DO Work Phone: -[facility] Start: 06-10-2025 End: 06-10-2025 [facility] Start: 06-03-2025 ambulatory [facility] Facility:[facility] Start: 05-29-2025 End: 05-29-[address] Allan Jc DO Work Phone: -[facility] Start: 05-29-2025 End: 05-29-2025 Patient encounter procedure Deborah Roa WHOLESALE MANAGER-C -[facility] Start: 05-29-2025 End: 05-29-2025 ambulatory Deborah Crispin Facility:[facility] Start: 05-20-2025 End: 05-20-[address] Allan Jc DO Work Phone: -[facility] Start: 05-20-2025 End: 05-20-2025 Patient encounter procedure Deborah Roa WHOLESALE MANAGER-C -[facility] Start: 05-20-2025 End: 05-20-2025 ambulatory [facility] Facility:[facility] Start: 05-12-2025 End: 05-12-[address] Betty Steel MD -[facility] Work Phone: Start: 05-12-2025 End: 05-12-[address] Allan Jc DO Work Phone: [facility] Work Phone: Start: 05-05-2025 Non-patient / Non-visit Dr. Kevin Singh DO [facility] Work Phone: Start: 05-04-2025 Non-patient / Non-visit Dr. Kevin Singh DO [facility] Work Phone: Start: 05-03-2025 Non-patient / Non-visit Dr. Meseret Minor DO [facility] Work Phone: Start: 05-03-2025 ambulatory Deborah Roa Facility:[facility] Start: 05-03-2025 End: 05-05-2025 Evaluation and management of inpatient Dr. Meseret Minor DO -[facility] Work Phone: Start: 02-04-2024 End: 02-04-2024 [facility] Start: 11-15-2022 End: 11-15-2022 Emergency department patient visit Dr. OSIRIS BARRETT Facility:[id number] Start: 09-20-2022 End: 09-20-2022 [facility] Start: 03-09-2022 ambulatory Tony Altman [...] Start: 09-23-2025 End: 09-23-2025 Patient encounter procedure -[facility] Work Phone: Start: 09-17-2025 Endoscopy upper small intestine w/biopsy SMALL BOWEL ENDOSCOPY/BIOPSY [facility] Start: 09-17-2025 Patient discharge [facility] Start: 07-17-2025 Basic metabolic 2008 panel with ionized calcium - Serum or Plasma [facility] Start: 07-17-2025 Cortisol [Mass/volume] in Serum or Plasma [facility] Start: 07-17-2025 Thyroid stimulating hormone measurement [facility] Start: 06-23-2025 [facility] Start: 05-05-2025 Patient discharge [facility] Start: 05-03-2025 Following clinical pathway protocol [facility] Start: 05-03-2025 Assessment of risk of venous thromboembolism [facility] Start: 05-03-2025 Inhalation therapy procedure [facility] Start: 05-03-2025 Insertion of catheter into peripheral vein [facility] Start: 05-03-2025 [address] intake and output [facility] Start: 05-03-2025 Oxygen therapy [facility] Start: 05-03-2025 Providing care according to standard [facility] Start: 05-03-2025 Referral to service [facility] Start: 05-03-2025 [facility] Start: 05-03-2025 Hospital admission, emergency, from emergency room, medical nature [facility] Start: 05-03-2025 Urinalysis complete panel - Urine [facility] Start: 05-03-2025 Verification routine [facility] Start: 05-03-2025 Admission procedure [facility] Start: 05-03-2025 Osmolality of Urine [facility] Start: 05-03-2025 Sodium [Moles/volume] in Urine [facility] Start: 05-03-2025 Osmolality measurement, serum [facility] Start: 05-03-2025 Thyroid stimulating hormone measurement [facility] Start: 05-03-2025 [facility] Start: 09-20-2022 Electrocardiographic procedure [facility] Work Phone: Amphetamines [Presen ce] in Urine by Screen method >1000 ng/mL [facility] Anion gap in Serum or Plasma [facility] Anion gap in Serum or Plasma [facility] Anion gap in Serum or Plasma [facility] Anion gap in Serum or Plasma [facility] Benzodiazepine measu rement, urine [facility] BUN/Creatinine ratio [facility] BUN/Creatinine ratio [facility] BUN/Creatinine ratio [facility] BUN/Creatinine ratio [facility] Calcium [Mass/volume ] in Serum or Plasma [facility] Calcium [Mass/volume ] in Serum or Plasma [facility] Calcium [Mass/volume ] in Serum or Plasma [facility] Calcium [Mass/volume ] in Serum or Plasma [facility] Carbon dioxide, tota l [Moles/volume] in Central venous blood [facility] Carbon dioxide, tota l [Moles/volume] in Central venous blood [facility] Carbon dioxide, tota l [Moles/volume] in Central venous blood [facility] Carbon dioxide, tota l [Moles/volume] in Central venous blood [facility] CBC W Auto Different ial panel - Blood [facility] Cocaine measurement, urine [facility] Comprehensive metabo lic 2000 panel - Serum or Plasma [facility] Cortisol [Mass/volum e] in Serum or Plasma [facility] Creatinine [Mass/vol ume] in Serum or Plasma [facility] Creatinine [Mass/vol ume] in Serum or Plasma [facility] Creatinine [Mass/vol ume] in Serum or Plasma [facility] Creatinine [Mass/vol ume] in Serum or Plasma [facility] CT Chest [facility] fentaNYL [Presence] in Urine by Screen method [facility] Glucose [Mass/volume ] in Serum or Plasma [facility] Glucose [Mass/volume ] in Serum or Plasma [facility] Glucose [Mass/volume ] in Serum or Plasma [facility] Glucose [Mass/volume ] in Serum or Plasma [facility] Measurement of renal function [facility] Measurement of renal function [facility] Measurement of renal function [facility] Measurement of renal function [facility] Methadone measurement, urine [facility] Patient Education [facility] Work Phone: Patient referral [facility] Work Phone: Phencyclidine [Prese nce] in Urine [facility] Potassium measurement [facility] Potassium measurement [facility] Potassium measurement [facility] Potassium measurement [facility] Serum chloride measurement [facility] Serum chloride measurement [facility] Serum chloride measurement [facility] Serum chloride measurement [facility] Sodium measurement [facility] Sodium measurement [facility] Sodium measurement [facility] Sodium measurement [facility] Troponin T.cardiac [Mass/volume] in Serum or Plasma by High sensitivity method [facility] Urate [Mass/volume] in Serum or Plasma [facility] Urea nitrogen [Mass/ volume] in Serum or Plasma [facility] Urea nitrogen [Mass/ volume] in Serum or Plasma [facility] Urea nitrogen [Mass/ volume] in Serum or Plasma [facility] Urea nitrogen [Mass/ volume] in Serum or Plasma [facility] Urine cannabinoid measurement [facility] Urine opiate measurement [facility] Payers Date Payer Category Payer Medicaid [id number] [id number] 2025 Self-pay [id number] 2025 Medicare [id number] 241 [id number] 1970 Formerly [facility] [id number] 2.16.8 40.1.712689.3.579.2.1069 1970 Unknown [id number] 2.16.8 40.1.918169.3.579.2.1069 Unknown [id number] Unknown [id number] 2.16.8 40.1.183564.3.579.2.462 Unknown [id number] 2.16.8 40.1.272141.3.579.2.462 Unknown [id number] 2.16.8 40.1.406394.3.579.2.462 Unknown [id number] 2.16.8 40.1.075469.3.579.2.462 Unknown [id number] 2.16.8 40.1.172952.3.579.2.462 Unknown [id number] 2.16.8 40.1.767950.3.579.2.462 Unknown [id number] 2.16.8 40.1.785885.3.579.2.462 Unknown [id number] 2.16.8 40.1.605218.3.579.2.462 Unknown [id number] 2.16.8 40.1.536771.3.579.2.462 Unknown [id number] 2.16.8 40.1.376683.3.579.2.462 Unknown [id number] 2.16.8 40.1.652463.3.579.2.462 Unknown [id number] 2.16.8 40.1.289466.3.579.2.462 Unknown [id number] 2.16.8 40.1.054929.3.579.2.462 Unknown [id number] 2.16.8 40.1.591291.3.579.2.462 Unknown [id number] 2.16.8 40.1.962984.3.579.2.462 Unknown [id number] 2.16.8 40.1.999265.3.579.2.462 Unknown [id number] 2.16.8 40.1.411616.3.579.2.462 Unknown [id number] 2.16.8 40.1.962143.3.579.2.462 Unknown [id number] 2.16.8 40.1.539620.3.579.2.462 Unknown [id number] 2.16.8 40.1.046662.3.579.2.462 Unknown [id number] 2.16.8 40.1.443270.3.579.2.462 Unknown [id number] 2.16.8 40.1.684704.3.579.2.462 Unknown [id number] 2.16.8 40.1.275422.3.579.2.462 Social History Date Type Detail Facility Start: 09-20-2022 End: 02-04-2024 Tobacco smoking status NEIS Unknown if ever smoked [facility] Start: 1970 Sex Assigned At Male [facility] Start: 05-03-2025 End: 09-15-2025 Tobacco smoking status NHIS Smokes tobacco daily (finding) [facility] Sex Male [facility] Goals Date Patient Goal Desired Activity /State Functional Status Date Assessment Result Facility 05-05-2025 Functional status Ambulates;Up ad michael [facility] Work Phone: Mental Status Date Assessment Result Facility 09-17-2025 Cognitive function Touch/Shaking [facility] Work Phone: 08-14-2025 Cognitive function Awake [facility] Work Phone: 05-05-2025 Cognitive function Voice/Name [facility] Work Phone: 05-03-2025 Cognitive function Level Of Cons ciousness Awake;Alert;Appropriate;Follow s Commands [facility] Work Phone: 02-04-2024 Cognitive function Level Of Cons ciousness Awake;Alert [facility] Work Phone: Clinical Notes 11-16-2022 to 09-17-2025 Note Date & Type Note Facility 09-17-2025 Consult note Note Date/Time September 17, 2025 3:50pm [facility] Medical Records Department [address] [place] [address] Anesthesia Postop Eval II 09/17/25 142 MR#: [id number] Acct: [id number] Name: LYNNETTE GONG Rep #:[id number] : 1970 55 From: Mina Calle MD PCP: UMAIR Taveras Status:REG SDC Y Race: C Location: [facility]- Anesthesia Postop Eval I Sum Postop [...] Mina Carrignnorris Signature: Date CC: ~ Signed [facility] Work Phone: 1(210) 395-750010-22-2025 Consult note Author Jean Jc [facility] Note Date/Time September 17, 2025 3 :00pm [facility] Medical Records Department [address] [place] [address] Anesthesia Postop Eval I 09/17/25 1359 MR#: [id number] Acct: [id number] Name: LYNNETTE GONG Rep #:[id number] : 1970 55 From: Jean Jc PCP: TONO TaverasC Status:REG SDC Y Race: C Location: [place] [address] Anesthesia: Postop Eval I Current Vital Signs [...] Jean Mendoza Signature: Date CC: ~ Signed [facility] Work Phone: 1(931) 124-106410-22-2025 Consult note Author Mina Calle [facility] Note Date/Time September 17, 2025 2 :31pm [facility] Medical Records Department [address] [place] [address] Pre-Anesthesia Evaluation 09/17/25 1330 MR#: [id number] Acct: [id number] Name: LYNNETTE GONG Rep #:[id number] : 1970 55 From: Mina Calle MD PCP: UMAIR Taveras Status:REG SDC Y Race: C Location: [place] [address] ASA Classification* ASA Classification ASA Classification: 3 [...] Procedure(s): EGD Anesthesia History Anesthesia History - physician internist: Anesthesia History - physician internist Hx Hospitalization Yes: LOW SODIUM 06/202509/15/25 13:45 [...] take am of surgery PONV PONV - physician internist: PONV - physician internist Female No 09/15/25 13:45 HX of Motion [...] 09/17/25 12:52 Respiratory Assessment Respiratory Assessment - physician internist: Respiratory Tract Infection Hx - physician internist Hx Respiratory Tract Infection No 09/15/25 13:45 STOP Sleep Apnea STOP Sleep Apnea - physician internist: STOP Sleep Apnea - physician internist Hx Hypertension Yes: STILL WORKING ON, 09/15/25 [...] Tobacco Use History Tobacco Use History - physician internist: Tobacco Use History - physician internist Tobacco Use Smoking Status Current every day smoker 09/15/25 13:45 Hx Tobacco Use Yes 09/15/25 13:45 Years Smoking Packs Smoked per Day Smoking Cessation Date was within the last 15 years Hx Smoking Cessation Date Hx Smoking Cessation Counseling Hematologic Medial History Hematologic Hx - physician internist: Hematologic 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 - 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 Hx of Blood Transfusion No 09/15/25 13:45 [...] confused, unrespo /Reproduction History /Reproductive History - physician internist: /Reproductive Hx- physician internist Hx Now No 09/15/25 13:45 Gestational Age [...] MD Cosigner Signature: Date CC: ~ Signed [facility] Work Phone: 1(329) 823-368110-22-2025 Consult note [facility] Medical Records Department [address] [place] [address] Anesthesia Postop Eval II 09/17/25 1422 MR#: [id number] Acct: [id number] Name: LYNNETTE GONG Rep #:[id number] : 1970 55 From: Mina Calle MD PCP: UMAIR Taveras Status:REG SDC Y Race: C Location: [place] [address]- Anesthesia Postop Eval I Sum Postop Eval [...] MD Cosign Signature: Date CC: ~ Signed [facility]10-22-2025 History and physical note Author Tito Friend [facility] Note Date/Time September 17, 2025 1 :50pm [facility] Medical Records Department [address] [place] [address] History & Physical Exam 09/17/25 1248 MR#: [id number] Acct: [id number] Name: LYNNETTE GONG Rep #:[id number] : 1970 55 From: Tito Friend DO PCP: UMAIR Taveras Status:[facility] Location: [place] [address] HPI - General General Date of Admission: [...] is a link to this NIH article https://pmc.ncbi.nlm.nih.gov/articles/DLQ9671413/ OV 08/26/25 - Continues to have daily nausea and dry heaving but no vomiting -Taking Zofran 10 times per day -Continues with kratom -Taking Excedrin intermittently ] [facility] Medical History Emphysema, unspecified Wears glasses Loose, [...] CC: UMAIR Roa; Tito Morris DO~ Signed [facility] Work Phone: 1(631) 782-527210-22-2025 Procedure note [facility] Medical Records Department [address] [place] [address] EGD Report MR#: [id number] Acct: [id number] Name: LYNNETTE GONG Rep #:[id number] : 1970 55 From: Tito Morris DO PCP: UMAIR Taveras Status:REG [facility] Patient Name: Lynnette Gong Procedure Date: 09/17/2025 [...] Hemoglobin A1c Procedure Code(s): --- Professional --- 71050, Small intestinal endoscopy, enteroscopy beyond second portion of duodenum, not including ileum; with biopsy, single or multiple CPT copyright 2021 [employer]. All rights reserved. The codes documented in this report are preliminary and upon certified medical records coder review may be revised to meet current compliance requirements. Tito Morris DO 09/17/2025 2:06:55 PM This report has been signed electronically. Number of Addenda: 0 Note Initiated On: 09/17/2025 1:32 PM 09/17/25 1407 Date _ Tito Ziegler Signature: Date (if indicated) CC: UMAIR Roa; Tito Morris DO ~ Date Dictated: 09/17/25 1332 Date Transcribed: Oracle Architect: RF Signed [facility]10-22-2025 Procedure note [facility] Medical Records Department [address] [place] [address] Provation Physician Letter MR#: [id number] Acct: [id number] Name: LYNNETTE GONG Rep #:[id number] : 1970 55 From: Tito Morris DO PCP: UMAIR Taveras Status:REG [facility] 09/17/2025 Umair Taveras Re : Upper GI [...] Tito Munizignnorris Signature: Date (if indicated) CC: WHOLESALE MANAGERLaurel Roa; DO Michael Trent Date Dictated: 09/17/25 1332 Date Transcribed: Oracle Architect: RF Signed [facility]10-22-2025 Consult note [facility] Medical Records Department [address] [place] [address] Anesthesia Postop Eval I 09/17/25 1359 MR#: [id number] Acct: [id number] Name: BELTRANLYNNETTE Prema Rep #:[id number] : 1970 55 From: Jean Jc PCP: UMAIR Taveras Status:REG SDC Y Race: C Location: [place] [address] Anesthesia: Postop Eval I Current Vital Signs [...] Jean Mendoza Signature: Date CC: ~ Signed [facility]10-22-2025 Consult note [facility] Medical Records Department [address] [place] [address] Pre-Anesthesia Evaluation 09/17/25 1330 MR#: [id number] Acct: [id number] Name: LYNNETTE GONG Rep #:[id number] : 1970 55 From: Mina Calle MD PCP: UMAIR Taveras Status:REG SDC Y Race: C Location: [place] [address] ASA Classification* ASA Classification ASA Classification: 3 [...] Procedure(s): EGD Anesthesia History Anesthesia History - physician internist: Anesthesia History - physician internist Hx Hospitalization Yes: LOW SODIUM 06/202509/15/25 13:45 [...] take am of surgery PONV PONV - physician internist: PONV - physician internist Female No 09/15/25 13:45 HX of Motion [...] 09/17/25 12:52 Respiratory Assessment Respiratory Assessment - physician internist: Respiratory Tract Infection Hx - physician internist Hx Respiratory Tract Infection No 09/15/25 13:45 STOP Sleep Apnea STOP Sleep Apnea - physician internist: STOP Sleep Apnea - physician internist Hx Hypertension Yes: STILL WORKING ON, 09/15/25 [...] Tobacco Use History Tobacco Use History - physician internist: Tobacco Use History - physician internist Tobacco Use Smoking Status Current every day smoker 09/15/25 13:45 Hx Tobacco Use Yes 09/15/25 13:45 Years Smoking Packs Smoked per Day Smoking Cessation Date was within the last 15 years Hx Smoking Cessation Date Hx Smoking Cessation Counseling Hematologic Medial History Hematologic Hx - physician internist: Hematologic Medical Hx - 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 Hx of Blood Transfusion No 09/15/25 13:45 [...] confused, unrespo /Reproduction History /Reproductive History - physician internist: /Reproductive Hx- physician internist Hx Now No 09/15/25 13:45 Gestational Age [...] MD Cosigner Signature: Date CC: ~ Signed [facility]10-22-2025 History and physical note [facility] Medical Records Department [address] [place] [address] History & Physical Exam 09/17/25 1248 MR#: [id number] Acct: [id number] Name: LYNNETTE GONG Rep #:[id number] : 1970 55 From: Tito Friend PCP: UMAIR Taveras Status:REG [facility] Location: [place] [address] HPI - General General Date of Admission: [...] is a link to this NIH article https://pmc.ncbi.nlm.nih.gov/articles/DTS3668738/ OV 08/26/25 - Continues to have daily nausea and dry heaving but no vomiting -Taking Zofran 10 times per day -Continues with kratom -Taking Excedrin intermittently ] [facility] Medical History Emphysema, unspecified Wears glasses Loose, [...] CC: UMAIR Roa; Tito Morris DO~ Signed [facility]10-22-2025 [facility] Medical Records Department [address] [place] [address] History Physical Exam 09/17/25 1248 MR#: [id number] Acct: [id number] Name: LYNNETTE GONG Rep #: [id number] : 1970 55 From: Tito Morris DO PCP: UMAIR Taveras Status:REG [facility] Location: AC14-1 HPI - General General Date [...] of organ toxicity, particularl (more content not included)...[facility]09-30-2025 [facility] Gastroenterology [address] [place] [address] OFFICE VISIT Date of Service: 08/26/25 MR#: [id number] Acct: [id number] Name: LYNNETTE GONG Rep #: [id number] : 1970 Provider: LANA Adan Age/Sex: 55/M Location: [facility] Status: Signed Intake Vital Signs 08/11/25 14:40 08/14/25 09:48 Height 5 ft 7 in 5 ft 7 in Weight: 304 lb 4 oz BMI 47.6 BP 144/87 H Respiration 18 Pulse 82 Temp 98.8 F Pulse Oximetry (%) 93 Oxygen Delivery Method room air Intake Visit Reasons: SCHEDULE FU PER ANANYA Chief Complaint: Nausea and vomiting Lacquer Mixer Required: No Accompanied by: Self Is patient [...] is a link to this NIH article https://pmc.ncbi.nlm.nih.gov/articles/WZY2017849/ OV 08/26/25 - Continues to have daily [...] Cosigner Signature: Date (if applicable) CC: ~ [facility]07-28-2025 Radiology Diagnostic study note [facility] Imaging Services [address] [place], [place] [address] Abdomen Single View MR#: [id number] Acct: [id number] Name: LYNNETTE GONG Rep #: [id number] : 1970 M 54 From: Claudio Pagan MD PCP: UMAIR Taveras Status: REG ER Study:Abdomen Single View Date of Exam: 06/23/25 Exam# [id number] Ordering Dr: Juan Rush DO PROCEDURE: ABDOMEN [...] the rectum may indicate constipation.. Reading Location: [facility] CC: WHOLESALE MANAGER-Juju Roa; Dr. Juan Rush DO ~ Oracle Architect: Signed [facility]07-23-2025 Radiology Diagnostic study note [facility] Imaging Services [address] [place] [address] Abdomen Single View MR#: [id number] Acct: [id number] Name: LYNNETTE GONG Rep #: [id number] : 1970 M 54 From: Niru Rush MD PCP: UMAIR Taveras Status: REG CLI Study:Abdomen Single View Date of Exam: 06/17/25 Exam# [id number] Ordering Dr: Ra jacoby Roa WHOLESALE MANAGER-Juju EXAM: XR Abdomen, 1 View CLINICAL INDICATION: CONSTIPATION, MELENA, NAUSEA TECHNIQUE: Frontal supine view of the abdomen/pelvis. COMPARISON: No relevant prior studies available. FINDINGS: GASTROINTESTINAL TRACT: Fecal retention in the colon consistent with constipation. No dilation. BONES/JOINTS: Unremarkable. No acute fracture. RAD/Abdomen Single View IMPRESSION: Fecal retention in the colon consistent with constipation. Reading Location: [facility] CC: WHOLESALE MANAGER-Juju Roa ~ Oracle Architect: Signed [facility]07-15-2025 Evaluation note* Diagnosis Onset Date Resolution [...] 7:49am Nausea acute September 23, 2025 7:49am [facility] Work Phone: 1(883) 795-420707-15-2025 Radiology Diagnostic study note [facility] Imaging Services [address] [place] [address] Lung Screening MR#: [id number] Acct: [id number] Name: LYNNETTE GONG Rep #: [id number] : 1970 M 54 From: Rahul Gould MD PCP: Deborah oRa WHOLESALE MANAGER-C Status: REG CLI Study:Low Dose CT Lung Screening Date of Exam : 06/10/25 Exam# [id number] Ordering Dr: Anay Solano NP WHOLESALE MANAGER-C PROCEDURE: LOW DOSE CT LUNG SCREENING 06/10/2025 REASON FOR EXAM: LUNG CANCER SCREENING Patient has smoked 1-1/2-2 packs per day for 37 years. TECHNIQUE: Coronal and Sagittal reconstruction series were provided. One or more dose reduction techniques were used (e.g., Automated exposure control, adjustment of the mA and/or kV according to patient size, use of iterative reconstruction technique). REFERENCE LINK: [employer] Lung-RADS RADIATION DOSE SUMMARY: CTDlvol: 3.18 mGy [...] SCREENING LDCT. Other Significant Findings: Reading Location: [id number] CC: UMAIR Roa; UMAIR Bull ~ Oracle Architect: Signed [facility]06-09-2025 Discharge summary [facility] Medical Records Department [address] [place] [address] Discharge Summary 05/05/25 1004 MR#: [id number] Acct: [id number] Name: LYNNETTE GONG Rep #:[id number] : 1970 54 From: Kevin Singh DO PCP: UMAIR Taveras Status:ADM IN Location: [place] [address] Providers Date of Admission: 05/03/25 Primary Care [...] 05/05/25 at 1009 Visit Charges Inpatient E&M: 13208 Disch Hosp 05/05/25 1009 Cosigner Signature (if applicable): cc: UMAIR Roa; Dr. Kevin Singh DO ~* Signed [facility]06-09-2025 [facility] Medical Records Department [address] [place] [address] Discharge Summary 05/05/25 1004 MR#: [id number] Acct: [id number] Name: LYNNETTE GONG Rep #: [id number] : 1970 54 From: Kevin Singh DO PCP: UMAIR Taveras Status:ADM IN Location: [place] [address] Providers Date of Admission: 05/03/25 Primary Care [...] at 1009 Visit Charges Inpatient E M: 95819 Disch Hosp 05/05/25 1009 Cosigner Signature (if applicable): cc: UMAIR Roa; Dr. Kevin Singh DO * [facility] Progress note Author Kevin Singh [facility] Note Date/Time May 04, 2025 1:33p m [facility] Medical Records Department [address] [facility] [place] [address] Progress Note - Hospitalist 05/04/25910 MR#: [id number] Acct: [id number] Name: LYNNETTE GONG Rep #:[id number] : 1970 54 From: Kevin Singh DO PCP: UMAIR Tavears Status:ADM IN Location: [place] [address] Reason for Visit Reason for Visit: Diagnoses [...] 76.5 H, Lymph % (Auto) 15.6 L, Casey % (Auto) 6.7, Eos % (Auto) 0.1, [...] Clarity Clear, Urine pH 7.0, Ur Specific [place] 1.010, Urine Protein 15 H, Urine Glucose [...] % (Auto) 65.3, Lymph % (Auto) 22.7, Casey% (Auto) 10.3 H, Eos % (Auto) 0.2, [...] 16:00 IMPRESSION: NO ACUTE FINDINGS. Reading Location: [facility] Physical Exam Const alert and [...] in AM. Charges/Coding Visit Charges Inpatient E&M: 88386 Subs Hosp L2 05/04/25 1333 <Electronically signed by Kevin Singh DO> Cosigner Signature (if applicable): CC: ~ Signed [facility] Work Phone: 1(970) 420-354806-08-2025 Progress note [facility] Medical Records Department [address] [place] [address] Progress Note - Hospitalist 05/04/25910 MR#: [id number] Acct: [id number] Name: LYNNETTE GONG Rep #:[id number] : 1970 54 From: Kevin Singh DO PCP: UMAIR Taveras Status:ADM IN Location: [place] [id number] Reason for Visit Reason for Visit: Diagnoses [...] 76.5 H, Lymph % (Auto) 15.6 L, Casey % (Auto) 6.7, Eos % (Auto) 0.1, [...] Clarity Clear, Urine pH 7.0, Ur Specific [place] 1.010, Urine Protein 15 H, Urine Glucose [...] % (Auto) 65.3, Lymph % (Auto) 22.7, Casey% (Auto) 10.3 H, Eos % (Auto) 0.2, [...] 16:00 IMPRESSION: NO ACUTE FINDINGS. Reading Location: [id number] Physical Exam Const alert and no apparent [...] in AM. Charges/Coding Visit Charges Inpatient E&M: 62454 Subs Hosp L2 05/04/25 1333 Cosigner Signature (if applicable): CC: ~ Signed [facility]06-07-2025 History and physical note Author Meseret Minor [facility] Note Date/Time May 03, 2025 7:01p m [facility] Medical Records Department [address] [place] [address] H&P Exam - Hospitalist 05/03/25 1806 MR#: [id number] Acct: [id number] Name: LYNNETTE GONG Rep #:[id number] : 1970 54 From: Meseret Minor DO PCP: UMAIR Taveras Status:ADM IN Location: [place] [id number]- 1 HPI - General General Date of Admission: 05/03/25 Date of Service: 05/03/25 Chief Complaint: Elevated blood pressure HPI Narrative LYNNETTE GONG, is a 54 M who presented to the emergency department [facility] on 05/03/2025 with the chief complaint [...] his most recent blood pressure at 159/89. [facility] Medical History HTN (hypertension) Morbid obesity [...] 76.5 H, Lymph % (Auto) 15.6 L, Casey % (Auto) 6.7, Eos % (Auto) 0.1, [...] 16:00 IMPRESSION: NO ACUTE FINDINGS. Reading Location: [id number] Assessment & Plan Assessment/Plan (1) Acute hyponatremia: [...] and asked his PCP to call in playnikx however it is too expensive for him. - We did discuss that there are other alternatives and I recommended he discuss this with his primary care physician- DVT prophylaxis - Lovenox SQ twice daily CODE STATUS - Full code Charges/Coding Visit Charges Inpatient E&M: 09357 Init Hosp L2 05/03/25 190 <Electronically signed by Meseret Minor DO> Cosigner Signature (if applicable): CC: WHOLESALE MANAGERLaurel Roa; Dr. Meseret Minor DO~ Signed [facility] Work Phone: 1(146) 471-455706-07-2025 Discharge summary Author Allan Jc [facility] Note Date/Time May 03, 2025 6:22p m [facility] Medical Records Department [address] [place] [address] Emergency Department Summary 05/03/25 MR#: [id number] Acct: [id number] Name: LYNNETTE GONG Rep #:[id number] : 1970 54 From: Allan Jc DO [...] he no longer has a headache. [facility] Medical History (Updated 05/03/25 @ 18:22 [...] following commands knew that he was at [facility] year is 2024 patient NIH of [...] 76.5 H Lymph % (Auto) 15.6 L Casey % (Auto) 6.7 Eos % (Auto) 0.1 [...] 16:00 IMPRESSION: NO ACUTE FINDINGS. Reading Location: [id number] Discharge Plan Triage Chief Complaint: Hypertension ED Provider: Allan Jc Dx/Rx/DC Orders Clinical Impression: Acute hyponatremia, Hyperglycemia, Hypertension Prescriptions: No Action losartan 25 mg tablet 25 mg PO DAILY Primary Care Provider: Deborah Roa Referrals: Care Physician,No Primary [Non-Staff] - Print Language: Honduran Disposition Disposition: [facility] What to do if you have Problems For any increased pain, shortness of breath, bleeding, nausea or vomiting, chestpain, or any unexpected problems, contact your Primary Care Provider. Call [facility] ([phone]) or report to the closest Emergency Room. Call 911 if necessary. 05/03/251821 <Electronically signed by Allan Jc DO> Cosigner Signature (if applicable): CC: UMAIR Roa ~ Signed [facility] Work Phone: 1(668) 152-983506-07-2025 Evaluation note* Diagnosis Onset Date Resolution Status Admit Date Acute hyponatremia acute May 032024 6:03pm Hyperglycemia acute May 03 025 6:03pm Hypertensive urgency acute May 03, 2025 6:03pm [facility] Work Phone: 1(679) 684-196306-07-2025 Evaluation note* Diagnosis Onset Date Resolution Status Admit Date Acute hyponatremia resolved May 032024 6:03pm Hyperglycemia resolved May 03 025 6:03pm Hypertensive urgency resolved May 03, 2025 6:03pm Constipation acute May 12, 2 025 1:20pm Screen for colon cancer acute J [facility] 2024 1:20pm [facility] Work Phone: 1(571) 857-954106-07-2025 Evaluation note* Diagnosis Onset Date Resolution Status Admit Date Acute hyponatremia resolved May 032024 6:03pm Hyperglycemia resolved May 03, 2 025 6:03pm Hypertensive urgency resolved May 03, 2025 6:03pm Constipation acute May 12, 2 025 1:20pm Screen for colon cancer acute J [facility] 2024 1:20pm Encounter for screening for malignant neoplasm of lung acute June 10, 2025 12:37pm Tobacco use disorder, continuous acute June 10, 2025 12:37pm [facility] Work Phone: 1(538) 436-112506-07-2025 Evaluation note* Diagnosis Onset Date Resolution Status Admit Date Acute hyponatremia resolved May 032024 6:03pm Hyperglycemia resolved May 03, 2 025 6:03pm Hypertensive urgency resolved May 03, 2025 6:03pm Constipation acute May 12, 2 025 1:20pm Screen for colon cancer acute J [facility] 2024 1:20pm Encounter for screening for malignant neoplasm of lung acute June 10, 2025 12:37pm Tobacco use disorder, continuous acute June 10, 2025 12:37pm Constipation acute July 17, 2025 10:45am Generalized headaches acute Jun 10:45am Hyponatremia acute July 17, 2025 10:45am [facility] Work Phone: 1(748) 738-452806-07-2025 Evaluation note* Diagnosis Onset Date Resolution Status [...] August 112024 2:27pm Nausea acute July 2:27pm [facility] Work Phone: 1(673) 450-354806-07-2025 Evaluation note* Diagnosis Onset Date Resolution Status [...] August 262024 11:18am Nausea acute July 11:18am [facility] [place] [place] [facility] Work Phone: 1(918) 485-629706-07-2025 History and physical note [facility] Medical Records Department [address] [place] [address] H&P Exam - Hospitalist 05/03/25 1806 MR#: [id number] Acct: [id number] Name: LYNNETTE GONG Rep #:[id number] : 1970 54 From: Meseret Minor DO PCP: UMAIR Taveras Status:ADM IN [facility] - General General Date of Admission: 05/03/25 Date of Service: 05/03/25 Chief Complaint: Elevated blood pressure HPI Narrative LYNNETTE GONG, is a 54 M who presented to the emergency department [facility] on 05/03/2025 with the chief complaint [...] his most recent blood pressure at 159/89. [facility] Medical History HTN (hypertension) Morbid obesity [...] 76.5 H, Lymph % (Auto) 15.6 L, Casey % (Auto) 6.7, Eos % (Auto) 0.1, [...] 16:00 IMPRESSION: NO ACUTE FINDINGS. Reading Location: [facility] Assessment & Plan Assessment/Plan (1) [...] and asked his PCP to call in [employer] however it is too expensive for him. - We did discuss that there are other alternatives and I recommended he discuss this with his primary care physician- DVT prophylaxis - Lovenox SQ twice daily CODE STATUS - Full code Charges/Coding Visit Charges Inpatient E&M: 27768 Init Hosp L2 05/03/25 1901 Cosign Signature (if applicable): CC: WHOLESALE MANAGER-C Deborah Roa; Dr. Meseret Minor DO~ Signed [facility]06-07-2025 Discharge summary [facility] Medical Records Department [address] [place] [address] Emergency Department Summary 05/03/25 MR#: [id number] Acct: [id number] Name: LYNNETTE GONG Rep #:[id number] : 1970 54 From: Allan Jc DO [...] he no longer has a headache. [facility] Medical History (Updated 05/03/25 @ 18:22 [...] following commands knew that he was at [facility] year is 2024 patient NIH of [...] 76.5 H Lymph % (Auto) 15.6 L Casey % (Auto) 6.7 Eos % (Auto) 0.1 [...] 16:00 IMPRESSION: NO ACUTE FINDINGS. Reading Location: [facility] Discharge Plan Triage Chief Complaint: Hypertension ED Provider: Allan Jc Dx/Rx/DC Orders Clinical Impression: Acute hyponatremia, Hyperglycemia, Hypertension Prescriptions: No Action losartan 25 mg tablet 25 mg PO DAILY Primary Care Provider: Deborah Roa Referrals: Care Physician,No Primary [Non-Staff] - Print Language: Honduran Disposition Disposition: Acute Care [facility] What to do if you have Problems For any increased pain, shortness of breath, bleeding, nausea or vomiting, chestpain, or any unexpected problems, contact your Primary Care Provider. Call [facility] ([phone]) or report tothe closest Emergency Room. Call 911 if necessary. 05/03/25 1822 Cosigner Signature (if applicable): CC: UMAIR Roa ~ Signed [facility]06-07-2025 Radiology Diagnostic study note [facility] Imaging Services [address] [place], [place] [address] Chest PA and Lateral MR#: [id number] Acct: [id number] Name: LYNNETTE GONG Rep #: [id number] : 1970 M 54 From: Kimberly Vaughan MD PCP: Deborah Roa NP-C Status: REG ER Study:Chest PA and Lateral Date of Exam: 05/03/25 Exam# [id number] Ordering Dr: Dhaval Jc DO PROCEDURE: CHEST [...] Lateral IMPRESSION: NO ACUTE FINDINGS. Reading Location: [facility] CC: WHOLESALE MANAGER-C Deborah Roa; Dr. Allan Jc DO ~ Oracle Architect: Signed [facility]12-21-2022 NoteClinical Note - Pharmacy v2: Education: [...] Post-Discharge Culture Follow Up Team, please contact [phone]. . Aspen Chapa PharmD PGY1 Resident Med Electronic Signatures: Aspen Chapa (PHARM STUD) (Signed 16-Nov-2022 15:13) Authored: Education Deborah Ramirez (PharmD) (Signed 17-Nov-2022 08:30) Co-Signer: Education Last Updated: 17-Nov-2022 08:30 by Deborah Ramirez (PharmD)[facility] Note Date/Time May 05, 2025 10:09 am [facility] Medical Records Department [address] [place] [address] Discharge Summary 05/05/25 1004 MR#: [id number] Acct: [id number] Name: LYNNETTE GONG Rep #:[id number] : 1970 54 From: Kevin Singh DO PCP: UMAIR Taveras Status:ADM IN Location: [place] [address] Providers Date of Admission: 05/03/25 Primary Care [...] 05/05/25 at 1009 Visit Charges Inpatient E&M: 17732 Disch Hosp 05/05/25 1009<Electronically signed by Kevin Singh DO> Cosigner Signature (if applicable): cc: UMAIR Roa; Dr. Kevin Singh DO ~* Signed [facility] Work Phone: Evaluation noteNo assessment information available [facility] Work Phone: Evaluation note* Diagnosis Onset Date Resolution Status Admit Date Acute hyponatremia acute May 032024 6:03pm Hyperglycemia acute May 03, 025 6:03pm Hypertensive urgency acute May 03, 2025 6:03pm [facility] Work Phone: History and physical note Author Meseret Minor [facility] Note Date/Time May 03, 2025 7:01p m [facility] Medical Records Department [address] [place] [address] H&P Exam - Hospitalist 05/03/25 1806 MR#: [id number] Acct: [id number] Name: LYNNETTE GONG Rep #:[id number] : 1970 54 From: Meseret Minor DO PCP: UMAIR Taveras Status:ADM IN Location: [place] [id number]- [id number] HPI - General General Date of Admission: 05/03/25 Date of Service: 05/03/25 Chief Complaint: Elevated blood pressure HPI Narrative LYNNETTE GONG, is a 54 M who presented to the emergency department [facility] on 05/03/2025 with the chief complaint [...] his most recent blood pressure at 159/89. [facility] Medical History HTN (hypertension) Morbid obesity [...] 76.5 H, Lymph % (Auto) 15.6 L, Casey % (Auto) 6.7, Eos % (Auto) 0.1, [...] 16:00 IMPRESSION: NO ACUTE FINDINGS. Reading Location: [facility] Assessment & Plan Assessment/Plan (1) [...] and asked his PCP to call in [place] however it is too expensive for him. - We did discuss that there are other alternatives and I recommended he discuss this with his primary care physician- DVT prophylaxis - Lovenox SQ twice daily CODE STATUS - Full code Charges/Coding Visit Charges Inpatient E&M: 34521 Init Hosp L2 05/03/25 1901 <Electronically signed by Meseret Minor DO> Cosigner Signature (if applicable): CC: UMAIR Roa; Dr. Meseret Minor DO~ Signed [facility] Work Phone: Hospital Discharge instructions Additional Instructions Please return if you lose consciousness, if you develop chest pain, if you have shortness of breath we have difficulty with exertion. Please follow-up with the family practice physician Dr. Dias. Please get an outpatient stress test for further evaluation of possible heart issues.[facility] Work Phone: Hospital Discharge instructionsAdditional Instructions re x-ray consistent with constipation. Status post enema in the ED. take your MiraLAX 1 full cup of water with 1 cup every hour until you have a bowel movement. Continue your stool softeners. [facility] Work Phone: Progress note Author Debbie Garcia [facility] Note Date/Time August 26, 2025 11:57am [facility] [address] [place] [address] OFFICE VISIT Date of Service: 08/26/25 MR#: [id number] Acct: [id number] Name: LYNNETTE GOGN Rep #: [id number] : 1970 Provider: LANA Adan Age/Sex: 55/M Location[facility] Status: Signed Intake Vital Signs 08/11/25 14:40 08/14/25 09:48 Height 5 ft 7 in 5 ft 7 in Weight: 304 lb 4 oz BMI 47.6 BP 144/87 H Respiration 18 Pulse 82 Temp 98.8 F Pulse Oximetry (%) 93 Oxygen Delivery Method room air Intake Visit Reasons: SCHEDULE FU PER ANANYA Chief Complaint: Nausea and vomiting Lacquer Mixer Required: No Accompanied by: Self Is patient [...] #90 ta bs 08/11/25 08/26/25 Rx release [facility] Medical History History of CVA (cerebrovascular accident) [...] is a link to this NIH article https://pmc.ncbi.nlm.nih.gov/articles/LEG0651794/ OV 08/26/25 - Continues to have daily [...] Cosigner Signature: Date (if applicable) CC: ~ [facility] [place] [place] [facility] Work Phone: Reason for referral (narrative)No reason for referral information availableWHenry [facility] Work Phone: Chief Complaint and [...] Will No September 20 2:16pm Power of Meat Pumper No September 20, 2022 2:16pm Advance Directive Response Recorded Date/ Time Do you have a Healthcare Power of Meat Pumper? No May 03, 2025 3:36pm Advance Directive Response Recorded Date/ Time Do you have a Healthcare Power of Meat Pumper? No May 03, 2025 7:20pm Advance Directive Response Recorded Date/ Time Do you have a Healthcare Power of Meat Pumper? No May 03, 2025 7:20pm Do you have a Healthcare Power of Meat Pumper? No June 23, 2025 5:36pm Advance Directive Response Recorded Date/ Time Do you have a Healthcare Power of Meat Pumper? No June 23, 2025 4:36pm Do you have a Healthcare Power of Meat Pumper? No September 15, 2025 12:45pm Summary Purpose [...] section and content) DATE CREATED AUTHOR 11/18/2022 [facility] DATE CREATED AUTHOR AUTHOR'S ORGANIZ ATION 10/04/2025 [facility] Care Teams (unrecognized sec tion [...] Start: May 05, 2025 Deborah Roa , WHOLESALE MANAGER-C Primary Care Provider Active Start: May [...] Start: May 03, 2025 Deborah Roa , WHOLESALE MANAGER-C Primary Care Provider Active Start: May [...] End: May 12, 2025 Deborahtony Roa , WHOLESALE MANAGER-C Primary Care Provider Active Start: May 12, 2025 End: May 12, 2025 Team Status: Active Member Role/Relationship Status Dates Deborah Roa , WHOLESALE MANAGER-C Primary Care Provider Active Team Status: Inactive Member Role/Relationship Status Dates Dr. Allan Jc DO Emergency Provider Active Start: May 03, 2025 End: May 05, 2025 Deborah Roa , WHOLESALE MANAGER-C Primary Care Provider Active Start: May [...] Active Start: May 03, 2025 Deborah Roa WHOLESALE MANAGER-C Primary Care Provider Active Start: May [...] Active Start: May 04, 2025 Deborah Roa WHOLESALE MANAGER-C Primary Care Provider Active Start: May [...] Start: May 05, 2025 Deborah Roa , WHOLESALE MANAGER-C Primary Care Provider Active Start: May [...] End: May 12, 2025 Deborah Roa , WHOLESALE MANAGER-C Primary Care Provider Active Start: May 12, 2025 End: May 12, 2025 Team Status: Inactive Member Role/Relationship Status Dates Deborah Roa , WHOLESALE MANAGER-C Primary Care Provider Active Start: May 20, 2025 End: May 20, 2025 Deborah Crispin , WHOLESALE MANAGER-C Attending Provider Active St art: May 20, 2025 End: May 20, 2025 Team Status: Inactive Member Role/Relationship Status Dates Deborah Crispin , WHOLESALE MANAGER-C Primary Care Provider Active Start: May 29, 2025 End: May 29, 2025 Deborah Crispin , WHOLESALE MANAGER-C Attending Provider Active St art: May 29, 2025 End: May 29, 2025 Team Status: Inactive Member Role/Relationship Status Dates Deborah Crispin , WHOLESALE MANAGER-C Primary Care Provider Active Start: June 10, 2025 End: June 10, 2025 Deborah Stephensongar , WHOLESALE MANAGER-C Referring Provider Active St art: June 10, 2025 End: June 10, 2025 Anay Jorgito WHOLESALE MANAGER, WHOLESALE MANAGER-C Attending Provider Active Start: June 10, 2025 End: June 10, 2025 Team Status: Inactive Member Role/Relationship Status Dates Deborah Crispin , WHOLESALE MANAGER-C Primary Care Provider Active Start: June 10, 2025 End: June 10, 2025 Anay Jorgito WHOLESALE MANAGER, WHOLESALE MANAGER-C Attending Provider Active Start: June 10, 2025 End: June 10, 2025 Anay Jorgito WHOLESALE MANAGER, WHOLESALE MANAGER-C Referring Provider Active Start: June 10, 2025 End: June 10, 2025 Team Status: Inactive Member Role/Relationship Status Dates Deborah Crispin , WHOLESALE MANAGER-C Primary Care Provider Active Start: June 17, 2025 End: June 17, 2025 Deborahtony Roa , WHOLESALE MANAGER-C Attending Provider Active St art: June 17, 2025 End: June 17, 2025 Deborah Roa , WHOLESALE MANAGER-C Referring Provider Active St art: June 17, 2025 End: June 17, 2025 Team Status: Inactive Member Role/Relationship Status Dates Deborah Crispin , WHOLESALE MANAGER-C Primary Care Provider Active Start: June 23, 2025 End: June 23, 2025 Dr. Juan Rush DO Emergency Provider Active Start : June 23, 2025 End: June 23, 2025 Team Status: Inactive Member Role/Relationship Status Dates Deborah Crispin , WHOLESALE MANAGER-C Primary Care Provider Active Start: June 23, 2025 End: June 23, 2025 Dr. Juan Rush DO Attending Provider Active Start : June 23, 2025 End: June 23, 2025 Dr. Juan Rush , DO Emergency Provider Active Start : June 23, 2025 End: June 23, 2025 Team Status: Inactive Member Role/Relationship Status Dates Deborah Roa , WHOLESALE MANAGER-C Primary Care Provider Active Start: July 17, 2025 End: July 17, 2025 Deborah Roa , WHOLESALE MANAGER-C Referring Provider Active St art: July 17, 2025 End: July 17, 2025 Elizabet Diop WHOLESALE MANAGER-C Attending Provider Active Start: July 17, 2025 End: July 17, 2025 Team Status: Active Member Role/Relationship Status Dates Deborah Roa , WHOLESALE MANAGER-C Primary Care Provider Active Start: July 17, 2025 Elizabet Diop , WHOLESALE MANAGER-C Attending Provider Active Start: July 17, 2025 Elizabet Diop WHOLESALE MANAGER-C Referring Provider Active Start: July 17, 2025 Team Status: Inactive Member Role/Relationship Status Dates Deborahtony Roa , WHOLESALE MANAGER-C Primary Care Provider Active Start: June 10, 2025 End: June 10, 2025 Anay Bull WHOLESALE MANAGER, WHOLESALE MANAGER-C Attending Provider Active Start: June 10, 2025 End: June 10, 2025 Anay Bull WHOLESALE MANAGER, WHOLESALE MANAGER-C Referring Provider Active Start: June 10, 2025 End: June 10, 2025 Team Status: Inactive Member Role/Relationship Status Dates Deborah Roa , WHOLESALE MANAGER-C Primary Care Provider Active Start: July 17, 2025 End: July 17, 2025 Elizabet Diop WHOLESALE MANAGER-C Attending Provider Active Start: July 17, 2025 End: July 17, 2025 Elizabet Diop WHOLESALE MANAGER-C Referring Provider Active Start: July 17, 2025 End: July 17, 2025 Team Status: Inactive Member Role/Relationship Status Dates Deborah Roa , WHOLESALE MANAGER-C Primary Care Provider Active Start: August 04, 2025 End: August 04, 2025 Deborah Roa , WHOLESALE MANAGER-C Attending Provider Active St art: August 04, 2025 End: August 04, 2025 Team Status: Inactive Member Role/Relationship Status Dates Deborahtony Roa , WHOLESALE MANAGER-C Primary Care Provider Active Start: August 11, 2025 End: August 11, 2025 Deborah Roa , WHOLESALE MANAGER-C Referring Provider Active St art: August 11, 2025 End: August 11, 2025 Elizabet Jadon , WHOLESALE MANAGER-C Attending Provider Active Start: August 11, [...] ctive Start: May 03, 2025 Deborah Roa WHOLESALE MANAGER-C Primary care physician Active Start: May [...] ctive Start: May 05, 2025 Deborah Roa WHOLESALE MANAGER-C Primary care physician Active Start: May [...] End: May 12, 2025 Deborah Crispin , WHOLESALE MANAGER-C Primary care physician Active Start: May 12, 2025 End: May 12, 2025 Team Status: Inactive Member Role/Relationship Status Dates Deborah Crispin , WHOLESALE MANAGER-C Primary care physician Active Start: May 20, 2025 End: May 20, 2025 Deborah Crispin , WHOLESALE MANAGER-C Attending physician Active S tart: May 20, 2025 End: May 20, 2025 Team Status: Inactive Member Role/Relationship Status Dates Deborah Crispin , WHOLESALE MANAGER-C Primary care physician Active Start: May 29, 2025 End: May 29, 2025 Deborah Crispin , WHOLESALE MANAGER-C Attending physician Active S tart: May 29, 2025 End: May 29, 2025 Team Status: Inactive Member Role/Relationship Status Dates Deborah Crispin , WHOLESALE MANAGER-C Primary care physician Active Start: June 10, 2025 End: June 10, 2025 Anay Jorgito WHOLESALE MANAGER, WHOLESALE MANAGER-C Attending physician Active Start: June 10, 2025 End: June 10, 2025 Anay Jorgito WHOLESALE MANAGER, WHOLESALE MANAGER-C Referring Provider Active Start: June 10, 2025 End: June 10, 2025 Team Status: Inactive Member Role/Relationship Status Dates Deborah Crispin , WHOLESALE MANAGER-C Primary care physician Active Start: June 10, 2025 End: June 10, 2025 Anay Jorgito WHOLESALE MANAGER, WHOLESALE MANAGER-C Attending physician Active Start: June 10, 2025 End: June 10, 2025 Anay Jorgito WHOLESALE MANAGER, WHOLESALE MANAGER-C Referring Provider Active Start: June 10, 2025 End: June 10, 2025 Team Status: Inactive Member Role/Relationship Status Dates Deborahtony Roa , WHOLESALE MANAGER-C Primary care physician Active Start: June 17, 2025 End: June 17, 2025 Deborah Roa , WHOLESALE MANAGER-C Attending physician Active S tart: June 17, 2025 End: June 17, 2025 Deborah Roa , WHOLESALE MANAGER-C Referring Provider Active St art: June 17, 2025 End: June 17, 2025 Team Status: Inactive Member Role/Relationship Status Dates Deborah Roa , WHOLESALE MANAGER-C Primary care physician Active Start: June 23, 2025 End: June 23, 2025 Dr. Juan Rush DO Attending physician Active Star t: June 23, 2025 End: June 23, 2025 Dr. Juan Rush , Emergency Department Physician Active Start: June 23, 2025 End: June 23, 2025 Team Status: Inactive Member Role/Relationship Status Dates Deborah Roa WHOLESALE MANAGER-C Primary care physician Active Start: July 17, 2025 End: July 17, 2025 Deborah Roa , WHOLESALE MANAGER-C Referring Provider Active St art: July 17, 2025 End: July 17, 2025 Elizabet Diop NP-C Attending physician Active Start: July 17, 2025 End: July 17, 2025 Team Status: Inactive Member Role/Relationship Status Dates Deborah Roa , WHOLESALE MANAGER-C Primary care physician Active Start: July 17, 2025 End: July 17, 2025 Elizabet Diop NP-C Attending physician Active Start: July 17, 2025 End: July 17, 2025 Elizabet Diop NP-C Referring Provider Active Start: July 17, 2025 End: July 17, 2025 Team Status: Inactive Member Role/Relationship Status Dates Deborah Roa , WHOLESALE MANAGER-C Primary care physician Active Start: August 04, 2025 End: August 04, 2025 Deborah Roa , WHOLESALE MANAGER-C Attending physician Active S tart: August 04, 2025 End: August 04, 2025 Team Status: Inactive Member Role/Relationship Status Dates Deborah Roa , WHOLESALE MANAGER-C Primary care physician Active Start: August 11, 2025 End: August 11, 2025 Deborah Roa , WHOLESALE MANAGER-C Referring Provider Active St art: August 11, 2025 End: August 11, 2025 Elizabet Diop NP-C Attending physician Active Start: August 11, 2025 End: August 11, 2025 Team Status: Inactive Member Role/Relationship Status Dates Deborah Crispin , WHOLESALE MANAGER-C Primary care physician Active Start: August 14, 2025 End: August 14, 2025 Elizabet Diop WHOLESALE MANAGER-C Attending physician Active Start: August 14, 2025 End: August 14, 2025 Elizabet Diop , WHOLESALE MANAGER-C Referring Provider Active Start: August 14, 2025 End: August 14, 2025 Team Status: Inactive Member Role/Relationship Status Dates Deborah Roa , WHOLESALE MANAGER-C Primary care physician Active Start: August 26, 2025 End: August 26, 2025 Deborah Roa , WHOLESALE MANAGER-C Referring Provider Active St art: August 26, 2025 End: August 26, 2025 LANA Adan Attending physician Active Start: August 26, 2025 End: August 26, 2025 Team Status: Inactive Member Role/Relationship Status Dates Deborah Roa , WHOLESALE MANAGER-C Primary care physician Active Start: June 10, 2025 End: June 10, 2025 Anay Bull NP, WHOLESALE MANAGER-C Attending physician Active Start: June 10, 2025 End: June 10, 2025 Anay Bull WHOLESALE MANAGER, WHOLESALE MANAGER-C Referring Provider Active Start: June 10, 2025 End: June 10, 2025 Team Status: Inactive Member Role/Relationship Status Dates Deborah Roa WHOLESALE MANAGER-C Primary care physician Active Start: June 10, 2025 End: June 10, 2025 Anay Bull NP, WHOLESALE MANAGER-C Attending physician Active Start: June 10, 2025 End: June 10, 2025 Anay Bull WHOLESALE MANAGER, WHOLESALE MANAGER-C Referring Provider Active Start: June 10, 2025 End: June 10, 2025 Team Status: Inactive Member Role/Relationship Status Dates Deborah Roa , WHOLESALE MANAGER-C Primary care physician Active Start: June 17, 2025 End: June 17, 2025 Deborah Roa , WHOLESALE MANAGER-C Attending physician Active S tart: June 17, 2025 End: June 17, 2025 Deborah Roa , WHOLESALE MANAGER-C Referring Provider Active St art: June 17, 2025 End: June 17, 2025 Team Status: Inactive Member Role/Relationship Status Dates Deborah Roa , WHOLESALE MANAGER-C Primary care physician Active Start: June 23, 2025 End: June 23, 2025 Dr. Juan Rush DO Attending physician Active Star t: June 23, 2025 End: June 23, 2025 Dr. Juan Rush , Emergency Department Physician Active Start: June 23, 2025 End: June 23, 2025 Team Status: Inactive Member Role/Relationship Status Dates Deborah Roa , WHOLESALE MANAGER-C Primary care physician Active Start: July 17, 2025 End: July 17, 2025 Deborah Roa WHOLESALE MANAGER-C Referring Provider Active St art: July 17, 2025 End: July 17, 2025 Elizabet Diop WHOLESALE MANAGER-C Attending physician Active Start: July 17, 2025 End: July 17, 2025 Team Status: Inactive Member Role/Relationship Status Dates Deborah Roa WHOLESALE MANAGER-C Primary care physician Active Start: July 17, 2025 End: July 17, 2025 Elizabet Diop WHOLESALE MANAGER-C Attending physician Active Start: July 17, 2025 End: July 17, 2025 Elizabet Diop WHOLESALE MANAGER-C Referring Provider Active Start: July 17, 2025 End: July 17, 2025 Team Status: Inactive Member Role/Relationship Status Dates Deborah Roa WHOLESALE MANAGER-C Primary care physician Active Start: August 04, 2025 End: August 04, 2025 Deborah Roa WHOLESALE MANAGER-C Attending physician Active S tart: August 04, 2025 End: August 04, 2025 Team Status: Inactive Member Role/Relationship Status Dates Deborah Roa WHOLESALE MANAGER-C Primary care physician Active Start: August 11, 2025 End: August 11, 2025 Deborah Roa WHOLESALE MANAGER-C Referring Provider Active St art: August 11, 2025 End: August 11, 2025 Elizabet Diop WHOLESALE MANAGER-C Attending physician Active Start: August 11, 2025 End: August 11, 2025 Team Status: Inactive Member Role/Relationship Status Dates Deborah Roa WHOLESALE MANAGER-C Primary care physician Active Start: August 14, 2025 End: August 14, 2025 Elizabet Diop WHOLESALE MANAGER-C Attending physician Active Start: August 14, 2025 End: August 14, 2025 Elizabet Diop WHOLESALE MANAGER-C Referring Provider Active Start: August 14, 2025 End: August 14, 2025 Team Status: Inactive Member Role/Relationship Status Dates Deborah Crispin , WHOLESALE MANAGER-C Primary care physician Active Start: August 26, 2025 End: August 26, 2025 Deborah Roa , WHOLESALE MANAGER-C Referring Provider Active St art: August 26, 2025 End: August 26, 2025 LANA Adan Attending physician Active Start: August 26, 2025 End: August 26, 2025 Team Status: Inactive Member Role/Relationship Status Dates Deborah Roa WHOLESALE MANAGER-C Primary care physician Active Start: September 17, 2025 End: September 17, 2025 Deborah Roa , WHOLESALE MANAGER-C Referring Provider Active St art: September 17, 2025 End: September 17, 2025 Dr. Tito Morris DO Attending physician Active Start: September 17, 2025 End: September 17, 2025 Team Status: Active Member Role/Relationship Status Dates Deborah Roa WHOLESALE MANAGER-C Primary care physician Active Start: September 17, 2025 Deborah Roa , WHOLESALE MANAGER-C Referring Provider Active St art: September 17, 2025 Dr. Tito Morris DO Attending physician Active Start: September 17, 2025 Dr. Tito Morris DO Nurse Practitioner Active Start: September 17, 2025 Team Status: Inactive Member Role/Relationship Status Dates Deborah Roa WHOLESALE MANAGER-C Primary care physician Active Start: September 23, 2025 End: September 23, 2025 Deborah Roa , WHOLESALE MANAGER-C Referring Provider Active St art: September 23, 2025 End: September 23, 2025 LANA Adan Attending physician Active Start: September 23, 2025 End: September 23, 2025 Team Status: Inactive Member Role/Relationship Status Dates Deborah Roa WHOLESALE MANAGER-C Primary care physician Active Start: September [...] BE BASED ON THE PRIMARY CLINICAL RECORDS. [employer] [facility]. provides no warranty or guarantee of the accuracy or completeness of information in this document.
--- NOTE | 2025-11-12 20:35 | ED.RN ---
Dr Aburto spoke with Dr Cespedes about admitting patient that is waiting for bed at [facility]. [facility] said it could be days for him to get a bed. Dr Cespedes declined to admit patient here stating patient doesn't need admitted.
[2025-11-13] VITALS (26 sets, daily range): BP systolic 82–185; BP diastolic 65–126; PULSE 56–81; RESP 14–28; TEMP 36.3–37.1; O2SAT 18–100
[2025-11-13] MEDS: HYDROmorphone 0.5 MG/0.5 ML SYRINGE IV ×7 (00:44→23:39)
--- NOTE | 2025-11-13 00:47 | ED.RN ---
pt unable to sit still due to pain being uncontrolled with pain medications. pt is continuously taking self off heart monitor and O2. Dr. Aubrto made aware, PRN order for Dilaudid given for pain control.
[2025-11-13] MEDS: fentaNYL 100 MCG/2 ML Ampul IV ×4 (01:09→13:54)
[2025-11-13] MEDS: 0.9% Normal Saline (250mL Bag) 250 ML 999 ML IV (12:11)
--- NOTE | 2025-11-13 12:11 | EKG12_ITS ---
Test Reason : REPEAT Blood Pressure : */* mmHG Vent. Rate : 65 BPM Atrial Rate : 65 BPM P-R Int : 168 ms QRS Dur : 168 ms QT Int : 490 ms P-R-T Axes : 40 -61 12 degrees QTcB Int : 509 ms Normal sinus rhythm Right bundle branch block Left anterior fascicular block Bifascicular block Cannot rule out Inferior infarct , age undetermined Abnormal ECG Confirmed by Patrick Tian ([id number]), editor index JORDIN RAMIREZ ([id number]) on 11/14/2025 10:36:50 AM Referred By: Confirmed By: Patrick Tian
--- NOTE | 2025-11-13 12:11 | ECHOD_ITS ---
Reason For Study Reason For Study: Pericardial Effusion Procedure This was a limited 2D transthoracic echocardiogram. The patient is in sinus rhythm. The study was technically difficult. Exam performed portable in ED. ECHO/Echo, Limited Study Interpretation Summary This is a limited echocardiogram performed in the emergency department for asse ssment of pericardial effusion. Estimated left ventricular systolic function is greater than 55% Mild aortic regurgitation There is a large pericardial effusion, greatest diameter 2.1 cm on this examina tion. Effusion has increased from 11/12/2025 study where diameter was 1.5 cm. There is no significant chamber collapse noted on this limited echocardiogram. IVC diameter is 1.8 cm and fully collapses with inspiration. No definite evidence of pretamponade physiology on this limited echocardiogram. Ordering Physician: Allan Jc Performed By: Naeem Michel RCS
--- NOTE | 2025-11-13 12:16 | EDS_ITS ---
HPI History of Present Illness Chief Complaint: Chest Pain [facility] Medical History (Updated 11/13/25 @ 12:[address] Allan Jc DO) Hyperlipidemia Pericarditis Essential (primary) hypertension History of CVA (cerebrovascular accident) Lymphadenopathy, generalized Emphysema, unspecified Wears glasses Loose, teeth Ambulates with cane Heartburn Gastric reflux Chronic cough Chest pain Back pain Arthritis Osteoarthritis of knees, bilateral Tobacco use disorder, continuous Encounter for screening for malignant neoplasm of lung Constipation Chronic pain Smoker Migraines TIA (transient ischemic attack) Morbid obesity Home Medications ?Medication ?Instructions ?Recorded ?Last Taken ?Type losartan 100 mg tablet 100 mg PO DAILY #30 tabs 08/2111/11/25 Rx colchicine 0.6 mg capsule 0.6 mg PO BID 20 days #40 ca ps 11/07/25 11/11/25 Rx indomethacin 25 mg capsule 25 mg PO TIDCM 20 days #60 caps 11/07/25 11/11/25 Rx pantoprazole 40 mg tablet,delayed 40 mg PO DAILY 11/1011/11/25 History release hydromorphone 2 mg tablet 2 mg PO Q6H PRN pain 7 days #28 11/11/25 11/12/25 Rx (Dilaudid) tabs ondansetron HCl 8 mg tablet 8 mg PO Q8H PRN Nausea 11/11/25 History Allergy/AdvReac Type Severity Reaction Status Date / Time No Known Allergies Allergy Verified 11/12/25 11:32 Family History Grandfather Cancer lung cancer Surgical History History of right knee joint replacement Social History Smoking Status: Current every day smoker tobacco type: cigarettes Tobacco: How many years used: 30 alcohol intake: never substance use type: other details: magic mushrooms for pain EXAM Physical Exam Const Vital Signs: 11/12/25 17:00 11/12/25 18:00 11/12/25 19:00 Temperature Temperature Source Pulse Rate 65 63 Respiratory Rate 24 H Blood Pressure 163/106 H 157/85 H 175/99 H Blood Pressure Mean 125 109 124 Pulse Ox 99 100 Oxygen Delivery Method Nasal Cannula Oxygen Flow Rate (L/min) 2 11/12/25 20:00 11/12/25 21:00 11/12/25 22:00 Temperature Temperature Source Pulse Rate 78 72 64 Respiratory Rate Blood Pressure 132/106 H 183/92 H 165/94 H Blood Pressure Mean 114 122 117 Pulse Ox 100 100 99 Oxygen Delivery Method Oxygen Flow Rate (L/min) 11/12/25 23:00 11/13/25 00:00 11/13/25 01:00 Temperature Temperature Source Pulse Rate 66 70 64 Respiratory Rate 28 H Blood Pressure 172/96 H 185/104 H 150/100 H Blood Pressure Mean 121 131 116 Pulse Ox 100 100 Oxygen Delivery Method Room Air Oxygen Flow Rate (L/min) 11/13/25 01:38 11/13/25 02:33 11/13/25 03:04 Temperature Temperature Source Pulse Rate 57 L 57 L 64 Respiratory Rate 19 H Blood Pressure 150/100 H 122/83 H 164/126 H Blood Pressure Mean 116 96 138 Pulse Ox 98 99 99 Oxygen Delivery Method Oxygen Flow Rate (L/min) 11/13/25 04:00 11/13/25 05:00 11/13/25 06:00 Temperature Temperature Source Pulse Rate 60 66 66 Respiratory Rate 22 H 19 H 18 Blood Pressure 141/92 H 150/95 H 141/90 H Blood Pressure Mean 108 113 107 Pulse Ox 100 99 100 Oxygen Delivery Method Nasal Cannula Nasal Cannula Nasal Cannula Oxygen Flow Rate (L/min) 2 2 2 11/13/25 07:00 11/13/25 08:06 11/13/25 09:00 Temperature Temperature Source Pulse Rate 63 81 63 Respiratory Rate 18 24 H 24 H Blood Pressure 133/91 H 159/96 H 145/85 H Blood Pressure Mean 105 117 105 Pulse Ox 100 100 98 Oxygen Delivery Method Nasal Cannula Nasal Cannula Nasal Cannula Oxygen Flow Rate (L/min) 2 2 11/13/25 10:00 11/13/25 11:00 11/13/25 12:00 Temperature 97.4 F L 98.7 F 98.5 F Temperature Source Oral Oral Oral Pulse Rate 69 73 64 Respiratory Rate 18 19 H 17 Blood Pressure 145/85 H 82/65 L 115/74 Blood Pressure Mean 105 70 87 Pulse Ox 100 100 97 Oxygen Delivery Method Room Air Room Air Room Air Oxygen Flow Rate (L/min) 11/13/25 12:02 11/13/25 13:00 11/13/25 14:00 Temperature 98.1 F Temperature Source Oral Pulse Rate 63 78 Respiratory Rate 19 H 16 Blood Pressure 171/97 H 171/91 H Blood Pressure Mean 121 117 Pulse Ox 98 98 99 Oxygen Delivery Method Room Air Room Air Oxygen Flow Rate (L/min) 11/13/25 15:00 11/13/25 16:00 Temperature 97.9 F 98.5 F Temperature Source Oral Oral Pulse Rate 79 72 Respiratory Rate 24 H 16 Blood Pressure 177/90 H 170/95 H Blood Pressure Mean 119 120 Pulse Ox 97 99 Oxygen Delivery Method Room Air Room Air Oxygen Flow Rate (L/min) MDM MDM MDM Narrative Medical decision making narrative: I was called to bedside as the patient's blood pressure has worsened over the last few blood pressure readings and is hypotensive. I went in to evaluate the patient and he states that about an hour ago he coughed and ever since then he has had worsening chest pain. Patient states that he has never been to [facility] himself. Upon record review does look like the patient has a malignant pericardial effusion noted. I ordered a stat echocardiogram and will call back to [facility] to see if the patient can go ER to ER versus potentially transfer elsewhere. Earlier I spoke with on-call produce laborer Dr. Tian and he states that I should call Dr. Hernandez about reading this echocardiogram. I reached out to him and he states that I should reach out to Dr. Ken as he read the original echo. We page Dr. Ken and he states that the pericardial effusion has enlarged he states that the IVC was collapsible however since he has been hypertensive recently he would recommend holding off on further IV fluids after I gave the 250 cc bolus. He states that if patient does become hypotensive then he would recommend giving more fluids. I had staff reach out to [facility] again to update them that they pericardial effusion is worsening and enlarging and given that he had the episode of hypotension and bradycardia and attempts to transfer ER to ER. Currently the ER is on diversion however they are getting in contact with them to see if he can still transfer this patient ER to ER since the physician that accepted the patient was agreeable to get him down there sooner At 4:29 PM still are waiting to hear back from the emergency department on [facility] for possible transfer ER to ER. Earlier today I did discuss with the patient about potential transfer elsewhere and he was agreeable if [facility] ultimately cannot transfer him down there. Patient case was signed out to oncoming provider. Lab Data Labs: Laboratory Results - last 24 hr 11/12/25 11/13/25 11/13/25 16:06 12:16 14:30 Troponin T High Sens 14 D Troponin T Hi Sens 2 Hr 13 Troponin T Hi Sens 4Hr 12 Radiography Diagnostic Testing: Clinical Impression(s) from Imaging Studies Echocardiogram 11/12/25 12:14 Interpretation Summary Limited echocardiogram performed in emergency department for surveillance of pericardial effusion There is a moderate-sized pericardial effusion measuring 1.5 cm, which is increased from prior study on 11/04/2025 Left ventricular EF by Yañez's biplane is greater then 70% No regional wall motion abnormalities noted No definite evidence of pretamponade physiology on this limited echocardiogram. Ordering Physician: Kevin Gallegos Referring Physician: Deborah Roa Performed By: Taylor Mccauley, MARIAH, RVT Chest X-Ray 11/12/25 13:00 IMPRESSION: The examination is limited by hypoinflation, AP portable technique, patient motion, and body habitus. Marked widening of the mediastinum appear similar to the prior study, given differences in technique. The cardiac size is probably unchanged. Although limited evaluation as noted, no acute pneumonic process is clearly appreciated. No pleural effusion or pneumothorax is noted. No interval osseous changes seen Reading Location: [place] [address] Discharge Plan Triage Chief Complaint: Chest Pain ED Provider: Kevin Gallegos Dx/Rx/DC Orders Clinical Impression: Malignant pericardial effusion, Chest pain Prescriptions: No Action losartan 100 mg Tablet 100 mg PO DAILY Qty: 30 0RF ondansetron HCl 8 mg Tablet 8 mg PO Q8H PRN (Reason: Nausea) indomethacin 25 mg Capsule 25 mg PO TIDCM 20 Days Qty: 60 0RF colchicine 0.6 mg Capsule 0.6 mg PO BID 20 Days Qty: 40 0RF pantoprazole 40 mg tablet,delayed release (DR/EC) 40 mg PO DAILY hydromorphone [Dilaudid] 2 mg tablet 2 mg PO Q6H PRN (Reason: pain) 7 Days Qty: 28 0RF Primary Care Provider: Deborah Roa Referrals: Deborah Roa, [employer]-C [Primary Care Provider, Family Practice] Print Language: Indonesian
[2025-11-13 12:51] LABS: Troponin T High Sensitivity 14 ng/L (<=22)
--- NOTE | 2025-11-13 14:34 | PCA ---
THIS AIRCRAFT INSPECTOR CALLED [facility] FOR AN UPDATE ON PT'S ACCEPTENCE AND BED ASSIGNMENT. JON AT [facility] GAVE ME THE ACCEPTING DR NAME; DR. PAULINA SIMONS. WE ARE STILL WAITING FOR A BED. JON SAID THAT THEY ARE DISCHARGING HOWEVER, THE ER IS FAIRLY FULL AND THEY ADMIT OUT OF THERE FIRST. SHE DID NOT GIVE AN ETA FOR WHEN AN AVAILABLE BED WILL BE ASSIGNED
[2025-11-13 15:05] LABS: Troponin T High Sens 2 HR 13 ng/L (<=22)
--- NOTE | 2025-11-13 16:57 | PCA ---
THIS PRODUCTION ILLUSTRATOR CALLED AGAIN TO [facility] INQUIRING ABOUT THE CALL BACK WE WERE EXPECTING AND YET HAVE NOT RECEIVED CONCERNING IF PT CAN BE TRANSFERRED DIRECTLY TO THE ER. THEY SAID THEY WOULD TRY REACHING OUT TO ANOTHER CANCER AREA FOR PT TO BE ACCEPTED TO. THEY ARE TO CALL US BACK WITH AN UPDATE WITH THAT.
[2025-11-13 18:46] LABS: Troponin T High Sens 4 HR 14 ng/L (<=22)
[2025-11-13] MEDS: Nicotine (PBKC) 14 MG Patch TD (23:21)
[2025-11-14] VITALS (8 sets, daily range): BP systolic 140–165; BP diastolic 74–111; PULSE 59–73; RESP 10–21; TEMP 36.4; O2SAT 98–100
--- NOTE | 2025-11-14 01:46 | ED.RN ---
Report called to [facility] @ [facility].
[2025-11-14] MEDS: HYDROmorphone 0.5 MG/0.5 ML SYRINGE IV ×2 (05:40→06:09)
== END 2025-11-14 06:45 | disposition short-term general hospital (02) ==
LOC: ED 12:32
PROVIDERS: Emergency Medicine; Emergency Provider Emergency Medicine; PCP Nurse Practitioner Family; Visit Provider Emergency Medicine
DX: R07.9 Chest pain, unspecified (principal); I31.31 Malignant pericardial effusion in diseases classified elsewhere; J43.9 Emphysema, unspecified; E78.5 Hyperlipidemia, unspecified; I10 Essential (primary) hypertension; K21.9 Gastro-esophageal reflux disease without esophagitis; Z79.899 Other long term (current) drug therapy; Z86.73 Personal history of transient ischemic attack (TIA), and cerebral infarction without residual deficits
CPT/HCPCS: 71045; 80048; 84484; 85025; 93005; 93308; 96361; 96374; 96375; 96376; 99284; Q9957; A4216; C8924; J2405